=== PATIENT | female | born 2000 | race Caucasian/White ===

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

== ENCOUNTER 2021-01-30 08:30 | Outpatient (RCR) | payer OTHER, SELFPAY ==
[2021-01-30 00:40] VITALS: BP 114/67; PULSE 84; BMI 20.7
--- NOTE | 2021-01-30 09:00 | BH.SGPN.GN ---
Behaviors/Verbalizations/Mental Status: []Eye contact is good. Motor activity is appropriate. Appearance is casual. Speech is Appropriate. Mood is anxious and hopeful. Affect is congruent. Thoughts are linear and logical. No evidence of psychosis. Reviewed daily check in sheet and no reports of suicidal ideations or intent. Client Response/Progress/Benefit: []Pt responded well to session AEB pt listening attentively to other and sharing thoughts with group. Pt indicates on daily symptom tracker significant increase in anxiety from a 1/5 to a 4/5. This increase could be attributed to pt sharing stressor of her you friend not responding well to her boundary that she doesn't want to date him. Pt stated after she set the boundary with this friend she was told by other friends that he was breaking glass, drinking alcohol and talking about hurting himself. Pt reported she had a difficult time not feeling guilty for telling him she doesn't like him more than friends. Pt seemed to benefit from support and feedback from peers. Pt able to recognize it is not her responsibility to make her friend feel better. Pt identified treatment progress since starting IOP to include: no self-harm, setting boundaries, and improved positive attitude. Pt is to discharge from IOP today. Narrative Note: []
--- NOTE | 2021-01-30 10:10 | BH.SGPN.GN ---
Behaviors/Verbalizations/Mental Status: [] Eye contact is good. Motor activity is appropriate. Appearance is casual. Speech is Appropriate. Mood is anxious. Affect is congruent. Thoughts are linear and logical. No evidence of psychosis. Client Response/Progress/Benefit: [] Pt was an active participant in group discussion and activity. Attentive during psychoeducation on coping skills. Pt along with peers worked together to identify unhealthy coping skills such as; avoidance, sleep, substances, isolation, shopping, self-sabotage, not taking prescribed medications, and self-harm. Pt along with peers were able to identify why people use unhealthy coping skills such as; easy, comfortable, work in the short-term, perceive them as quick fix, and its harder to use healthy coping skills. Pt was able to make connection between the activity (tower building) and the importance of having a strong base/foundation of both internal and external coping skills. Benefited from increased understanding of unhealthy coping skills and the need for developing healthy interna and external coping skills. Pt will be discharged from [facility] today as she no longer meets this level of care. Narrative Note: []
--- NOTE | 2021-01-30 12:24 | BH.MDN_ITS ---
Multi-Disciplinary Note - Note 30-min Individual Time Started:: 11:20 Date: 01/30/21 Purpose of session/treatment goals addressed:: Purpose of session was to review pt's treatment progress, identify strategies to maintain progress and solidify aftercare plan. Eye Contact:: Good Motor Activity:: Appropriate, Restless Appearance:: Casual Speech:: Appropriate Mood:: Euthymic, Anxious Affect:: Congruent Thoughts:: Linear, Logical, No evidence of hallucinations/delusions noted Staff Interventions:: discharge planning, strengths perspective Client Response:: Pt reported she is feeling anxious about the upcoming family trip to see her brother graduate from [employer]. pt stated she is concerned how she is going to manage keeping her mom and dad happy since they don't get along. Pt agreed with therapist she does struggle with feeling the need to keep her parents happy. Recognizes she is not responsible for their emotions and has been working on letting herself make choices for her. Pt reported treatment progress she has noticed includes: no self-harm since starting IOP, decrease in depression and anxiety, more stable, decreased fatigue, improved daily functioning, improved boundaries, and starting a new job this week. Pt identified strategies to help her stay successful include: reaching out to healthy supports, staying in therapy, taking medications consistently, opposite action, painting, journaling, maintain self-care, writing down positive affirmations, and grounding. Pt feels ready to discharge from [facility], recognizing she has made significant progress. Risks/Concerns:: Denies suicidal/homicidal ideation, plan or intention to date. Progress Toward Goals/Plan:: Progress noted with pt reporting improved mood, decrease in depression, decrease in anxiety, and improved daily functioning. Plan is for pt discharge from [facility] today. Pt is to follow up with eating disorder therapist at [facility], trauma therapist through [facility], psychiatrist at counseling center and [facility] aftercare program. Time Stopped:: 11:50
--- NOTE | 2021-01-30 15:35 | BH.DS ---
Discharge Summary - Demographics Date of Admission:: 12/12/20 Discharge Date: 01/30/21 Presenting Problems at Admission:: Pt referred to the [facility] behavioral health IOP program after a recent psychiatric admission at [facility] from November 28 to December 03, 2020. She was diagnosed with bipolar disorder during that admission and was admitted there for mood instability and passive suicidal ideation. Her mood at intake was depressed and apathetic. Endorsed anhedonia, low energy, poor concentration, worthlessness and passive thoughts of . Denied active suicidal thoughts, plan or intention. She also denied homicidal ideation, hallucinations or delusions. At admission pt reported she was a worrier by nature but has panic attacks less than once a week now. Identified stressors as brother being away at boot camp and attempting to rebuild relationship with her mother. Discharge Diagnoses:: 1. Bipolar, NOS F31.9. 2. Generalized anxiety disorder. 3. Cluster B traits. 4. History of noncompliance with meds. 5. Primary support and school issues Reason for Discharge:: 1. Bipolar, NOS F31.9. 2. Generalized anxiety disorder. 3. Cluster B traits. 4. History of noncompliance with meds. 5. Primary support and school issues - Treatment Progress During Treatment & Response: Per pt's DSM 5 cross cutting measure at discharge pt's depression decreased by 75%, anxiety scores stayed the same scoring a 2/8, with 8 being severe, and a 62.5% overall reduction in mental health symptoms. Pt responded well to treatment AEB consistent attendance, engagement in both group and individual sessions and application of skills outside treatment environment. Issues Still to be Addressed:: Pt could benefit from continued reinforcement of healthy coping skills, continued work with outpatient therapists addressing eating disorder and trauma. Pt could also benefit from working through the belief she is responsible for her parents feelings, especially with her mother. Pt often feels torn on what boundaries to set with her mother out of fear of losing that relationship. Continued work on boundary setting, self-esteem, and assertiveness. Discharge Recommendations/Instructions:: 1. Melanie at [facility] for eating disorder- 01/31. 2. Breann at [facility] for trauma counseling- 02/01. 3. [facility]. 4. [facility] Aftercare Program - 02/14. 5. Encouraged pt to contact [facility] as recommended by pt's outpatient eating disorder therapist. Discharge Handout: Complete Discharge Handout with client on aftercare options and continuity of care.
== END 2021-01-30 14:46 | disposition home or self-care (01) ==
LOC: BHIOP 08:30
PROVIDERS: PCP Family Medicine; Referring Provider Psychiatry & Neurology Psychiatry; Visit Provider Psychiatry & Neurology Psychiatry
DX: F31.9 Bipolar disorder, unspecified (principal); F41.1 Generalized anxiety disorder; Z91.14 Patient's other noncompliance with medication regimen
CPT/HCPCS: S9480; 90832; 90853

== ENCOUNTER 2021-02-21 09:00 | Outpatient (RCR) | payer OTHER, SELFPAY ==
--- NOTE | 2021-02-21 14:00 | BH.SGPN.GN ---
Behaviors/Verbalizations/Mental Status: []Client alert and oriented, casually dressed. Eye contact fair. Motor activity slowed. Speech within normal limits. Affect flat, mood depressed. Thoughts linear, logical, no signs of hallucinations or delusions. Client Response/Progress/Benefit: []Pt responded well to session AEB pt providing input during discussion and listening attentively to peers. Pt reported feeling down today and was tearful. Pt shared she had started a job, but is already considering quitting because it is too triggering to pt?s eating disorder. Pt stated her mother was not supportive and made hurtful comments. Pt received emotional support and encouragement from the group. Pt engaged in discussion about self-love. Connected with others that although self-care is challenging, it is vital for mental health wellness. Group discussed barriers they have faced that prevented self-love. Pt reviewed the 30 ways to improve self-love and selected two strategies to practice. Pt seemed to benefit from reviewing treatment progress and stressors as well as learning about how to increase self-love. Pt will continue IOP aftercare to prevent decompensation and gain healthy support needed to promote mental health. Narrative Note: []
--- NOTE | 2021-02-21 14:59 | BH.MTP ---
Master Treatment Plan - Patient Information Program Physician:: Dr. Tiera Chavez Primary Therapist:: Jocy Harding [facility] - Psychiatric Diagnoses Psychiatric Diagnoses:: F33.2 Major depressive disorder, recurrent, severe without psychosis; generalized anxiety disorder; eating disorder, NOS; probable borderline personality disorder Diagnosis Code(s):: F 33.2 - Estimated LOS Estimated LOS (in weeks):: 12 Problem/Goal #1 - Problem/Goal #1 Stated Goal:: client will maintain or see a reduction in symptoms AEB client score on the DSM 5 cross-cutting measure and improve client's daily functioning. - Objectives Objective #1 Stated Objective: Client will continue to consistently apply healthy coping skills to maintain progress made in IOP tx. Interventions: Through group therapy, client will review warning signs and triggers as well as healthy coping skills learned in IOP tx to successfully maintain gains while transitioning into outpatient therapy Discharge Criteria: Client will have accomplished this goal when client's score on the DSM-5 cross-cutting measure has either maintained or reduced over a 12 week period. Target Date: 05/16/21 Review Date: 03/21/21 Status: open Objective #2 Stated Objective: Client will learn and utilize 2-3 maintenance strategies to prevent decompensation. Interventions: Through group therapy, client will be provided with education on healthy maintenance behaviors, relapse prevention techniques, and healthy coping strategies. Discharge Criteria: Client will have accomplished this goal when can report using at least 2 maintenance skills to prevent decompensation. Target Date: 05/16/21 Review Date: 03/21/21 Status: open
--- NOTE | 2021-02-28 14:00 | BH.SGPN.GN ---
Behaviors/Verbalizations/Mental Status: []Client alert and oriented, casually dressed and groomed. Eye contact good. Motor activity appropriate. Speech within normal limits. Affect congruent, mood euthymic. Thoughts linear, logical, no signs of hallucinations or delusions. Client Response/Progress/Benefit: []Client responded well to session, client?s emotion today is ?calm? as client reports things are ?going well? overall. Client reports her outpatient therapists told her she has been making progress with treatment which helped to boost her confidence and client identifies as a positive. Additional positive noted as maintaining boundaries with a friend who had become toxic despite that person reaching out. Client identified use of reaching out to supports, thought challenging, and self-care. Receptive of discussion on self-talk and its influence in maintaining long-term mental health stability. Contributed to strategies for improving effective creation and application of believable personal affirmations. Client created several affirmations and shared one with the group. Client shared plans to display affirmation of ?I have worth and value as an individual.? to remind her of her worth. Client shared this will help combat negative self-talk. Client to continue aftercare group to promote gains and further increase application of healthy coping skills. Narrative Note: []
== END 2021-02-28 23:59 ==
LOC: BHOG 09:00
PROVIDERS: PCP Family Medicine; Referring Provider Psychiatry & Neurology Psychiatry; Visit Provider Psychiatry & Neurology Psychiatry
DX: F33.2 Major depressive disorder, recurrent severe without psychotic features (principal); F41.1 Generalized anxiety disorder; F50.9 Eating disorder, unspecified
CPT/HCPCS: 90853

== ENCOUNTER 2021-03-28 09:00 | Outpatient (RCR) | payer OTHER, SELFPAY ==
[2021-03-01 00:07] VITALS: BMI 20.7
--- NOTE | 2021-03-28 12:22 | BH.MTP_ITS ---
Treatment Plan Review Date of Admission:: 02/21/21 Date of Treatment Plan Review:: 03/21/21 Admitting Diagnoses:: F33.2 Major depressive disorder, recurrent, severe without psychosis; generalized anxiety disorder; eating disorder, NOS; probable borderline personality disorder Current Diagnoses:: F33.2 Major depressive disorder, recurrent, severe without psychosis; generalized anxiety disorder; eating disorder, NOS; probable borderline personality disorder Patient's Response to Treatment:: Pt responding mostly well to aftercare program AEB pt's consistent attendance, contributions during group discussions and self- report that she is applying skills learned outside treatment environment. Pt continued to attend the program despite 3 of the 4 scheduled dates being canceled due to limited attendance numbers. Status of Current Problems and Symptoms: Client continues to experience symptoms of depression and anxiety per self-report. Client's anxiety and depression have stayed the same since her IOP discharge due to several ongoing stressors including separation from her brother in the , difficulties maintaining boundaries with her mother, as well as struggling to commit to attending residential eating disorder treatment. Client continues to struggle with emotion regulation and often deals with externalizing which significantly limits overall ability to maintain consistent gains. Problem #1 Problem Name:: Pt will maintain or see a reduction in mental health symptoms Status of Goals:: obj 1 ? not complete, ongoing work encouraged. Per pt'sself- report her anxiety and depression have maintained the same since discharge from [facility]. Client has struggled with consistent application of internal coping skills, impacting overall mood stability. Additional difficulties in developing and maintaining healthy boundaries have impeded self-care and pt?s ability to advocate for her own mental health needs. Team Recommendations:: Pt continue IOP aftercare group in addition to attending regular outpatient counseling in order to decrease depressive and anxious symptoms as well as promote further gains. Encouraged to attend inpatient eating disorder specific treatment.
--- NOTE | 2021-03-28 14:00 | BH.SGPN.GN ---
Behaviors/Verbalizations/Mental Status: []Client alert and oriented, casually dressed and groomed. Eye contact good. Motor activity appropriate. Speech within normal limits. Affect congruent, mood euthymic and anxious. Thoughts linear, logical, no signs of hallucinations or delusions. Client Response/Progress/Benefit: []Client responded well to session, sharing and listening attentively to others throughout. Reported her emotion as ?nervous. Client identified mental health positives as getting a new job, getting a new car, relationship improving with mom and being able to stay at her dad's house alone the last few days. Client identified staying on medications, journaling, therapy, and opposite action have helped her mood. Client stated worried about going to residential eating disorder program in a couple of weeks. Client participated in group discussion regarding skills and routines that make up mental health maintenance, and completed own maintenance plan. Client completed maintenance plan in session identifying triggers, warning signs, healthy coping skills, and self-care activities. Appeared to benefit from identifying personal triggers and warning signs as well as skills to aid client in maintaining mental health. Client to continue aftercare group to promote gains, and prevent regression.
== END 2021-03-31 23:59 ==
LOC: BHOG 09:00
PROVIDERS: PCP Family Medicine; Referring Provider Psychiatry & Neurology Psychiatry; Visit Provider Psychiatry & Neurology Psychiatry
DX: F33.2 Major depressive disorder, recurrent severe without psychotic features (principal); F41.1 Generalized anxiety disorder; F50.9 Eating disorder, unspecified
CPT/HCPCS: 90853

== ENCOUNTER 2021-04-04 09:00 | Outpatient (RCR) | payer OTHER, SELFPAY ==
[2021-04-01 00:07] VITALS: BMI 20.7
--- NOTE | 2021-04-04 14:00 | BH.SGPN.GN ---
Behaviors/Verbalizations/Mental Status: []Client alert and oriented, casually dressed and groomed. Eye contact good. Motor activity appropriate. Speech within normal limits. Affect flat-tearful, mood depressed. Thoughts linear, logical, no signs of hallucinations or delusions. Client Response/Progress/Benefit: []Client responded well to session, client reports her mood today is ?depressed? as client continues to struggle with her mental health and eating disorder. Client shared she plans to be admitted to [facility] to treat client?s eating disorder, but client is struggling to accept this. Client stated she has been crying a lot lately and she worries [facility] will not help her. Receptive to feedback from peers and therapist. Client engaged well during the discussion of the components of self-compassion. Client connected with the benefits of self-compassion and participated in the activity of reframing a recent setback using self-compassion. Client used her upcoming admission to [facility] and challenged feeling ?like I can?t function? with ?I deserve to be happy even if that means going inpatient.? Client appeared to benefit from practicing self-compassion and connecting with peers. Will continue to monitor client?s mood and symptoms. Client does not know when she will be admitted to [facility]. Narrative Note: []
--- NOTE | 2021-04-11 14:00 | BH.SGPN.GN ---
Behaviors/Verbalizations/Mental Status: []Client alert and oriented, casual appearance. Eye contact fair. Motor activity appropriate. Speech within normal limits. Affect constricted, mood anxious. Thoughts linear, logical, no signs of hallucinations or delusions. Client Response/Progress/Benefit: []Pt responded well to session AEB pt openly sharing thoughts and feelings and completing worksheet. Pt stated she has quit her one job that she found the environment unorganized and stressful. Pt stated mental health positive as going to a wedding this weekend that she is excited about. Pt reported she is stressed that her residential treatment for eating disorder starts Thanks. Pt stated she is feeling sad that she will miss out on spending time with her brother whom will be visiting from the . Pt expressed anxiety about going to residential, but able to recognize it is what she needs to be healthy. Pt responded well to group discussion and review about self-care. Pt stated she will work on following self-care activities: reach out to supports, light a candle, affirmations, clean room, go to therapy, shower, spend time with family and go outside. Pt seemed to benefit from support from peers and identifying self-care plan. Pt to continue aftercare to prevent decompensation and continue use of healthy coping.
--- NOTE | 2021-04-18 12:10 | BH.DS_ITS ---
Discharge Summary - Demographics Date of Admission:: 02/21/21 Discharge Date: 04/18/21 Presenting Problems at Admission:: Client discharged from IOP tx and transitioned to [facility] aftercare to maintain gains client made in IOP and to reinforce healthy coping skills. At admission to [facility] aftercare, client reported experiencing some ongoing symptoms of anxiety, guilt, and depression. Continues to struggle with boundaries and holding herself responsible for her parents feelings, especially with her mother. Pt often feels torn on what boundaries to set with her mother out of fear of losing that relationship. Continues to struggle with low self-esteem which is a trigger for pt?s eating disorder symptoms. Client also continued to experience negative thinking and self- criticism at times. Despite these stressors, client reported ability to cope with her mental health and was activity using healthy skills. Discharge Diagnoses:: F33.2 Major depressive disorder, recurrent, severe without psychosis; generalized anxiety disorder; eating disorder, NOS; probable borderline personality disorder Reason for Discharge:: Client has accomplished most of her her tx goals AEB her ability to maintain mood stability for a longer period of time than in prior admissions. Client has been accepted into residential eating disorder treatment and will be discharging today to begin the program at [facility] on 04/22/21. - Treatment Progress During Treatment & Response: Client responded well and made progress in [facility] aftercare as evidenced by client's participation in group discussions and self-report of consistently applying coping skills, better managing moments of increased stress, and more consistently surrounding herself with healthy supports and implementing healthy coping skills. Client's overall DSM-5 scores were not obtained at time of discharge. However, client was reporting an improved mood and feeling she has seen significant progress since first seeking treatment over a year ago. Pt reports improved ability to more consistently challenge negative thoughts and focus on positive thinking patterns, improved use of healthy coping skills, better boundaries within interpersonal relationships, better and more self-care. Issues Still to be Addressed:: Client reports ongoing anxiety about addressing her physical health related issues, specifically that of her eating disorder; however, was unwilling to consider doing so a year ago. Client additionally reports needing to continue to work on trauma therapy, maintaining healthy boundaries, and implementing regular self-care and healthy coping skills in times of increased stress as she still struggles with isolation at times. Discharge Recommendations/Instructions:: Client will be admitted to [facility] for eating disorder residential treatment and is recommended to follow recommendations as presented by clinical staff in this program. Discharge Handout: Complete Discharge Handout with client on aftercare options and continuity of care.
--- NOTE | 2021-04-18 14:00 | BH.SGPN.GN ---
Behaviors/Verbalizations/Mental Status: []Client alert and oriented, casually dressed and groomed. Eye contact fair to good. Motor activity appropriate. Speech within normal limits. Affect congruent, mood anxious. Thoughts linear, logical, no signs of hallucinations or delusions. Client Response/Progress/Benefit: []Pt responded well to session, provided input, and listened attentively to peers. Reported feeling ?nervous? today, explaining that she has been accepted into an inpatient eating disorder treatment program and is scheduled to begin on Thursday. Reflected that this is ultimately the healthiest option for her and that her willingness to go is progress itself. Shared that she has been using opposite action to keep taking these steps in her life and is proud of herself for continuing to do so. Expressed being worried about not knowing what to expect. Client engaged in discussion on self-advocacy. Worked with group to identify the benefits of self-advocacy, as well as common barriers. Reviewed the personal bill of rights and shared she does well to advocate for the right to ?have the right to change and grow??. Discussed struggling with personal right of ?I have the right to be happy?. Noted plans to take steps in better advocating for this right by allowing herself to make decisions that she feels are going to be the best choice for her rather than worrying about others responses. Client seemed to benefit from reviewing treatment progress and skill application, as well as learning about how to increase self-advocacy. Client to discharge on this date and begin residential eating disorder tx. Narrative Note: []
== END 2021-04-19 09:01 | disposition home or self-care (01) ==
LOC: BHOG 09:00
PROVIDERS: PCP Family Medicine; Referring Provider Psychiatry & Neurology Psychiatry; Visit Provider Psychiatry & Neurology Psychiatry
DX: F33.2 Major depressive disorder, recurrent severe without psychotic features (principal); F41.1 Generalized anxiety disorder; F50.9 Eating disorder, unspecified
CPT/HCPCS: 90853

== ENCOUNTER → 2021-10-23 | Outpatient (CLI) | payer BC, SELFPAY ==
[2021-10-23 13:04] LABS: ALB/GLOB Ratio 1.4 RATIO (0.9-2.4); AST(SGOT) 12 U/L (15-37); Alanine Aminotransfer ALT/SGPT 13 U/L (13-56); Albumin, Serum 4.1 g/dL (3.2-5.0); Alkaline Phosphatase 72 U/L (45-117); Anion Gap 5 (5-15); BUN 8 mg/dL (7-18); BUN/Creat Ratio 11.4 RATIO (10-20); Calcium,Total 9.3 mg/dL (8.5-10.1); Chloride 105 mmol/L (98-107); EST Glomerular Filtration Rate 113 mL/min (>60); Est Glom Filt Rate - Afr Amer 137 mL/min (>60); Glucose 85 mg/dL (74-106); Potassium 4.3 mmol/L (3.5-5.1); Protein, Total 7.1 g/dL (6.4-8.2); Sodium Level 137 mmol/L (136-145)
== END | disposition home or self-care (01) ==
LOC: MFPLAB 11:00
PROVIDERS: PCP Family Medicine; Referring Provider Family Medicine; Visit Provider Family Medicine
DX: F50.01 Anorexia nervosa, restricting type (principal)
CPT/HCPCS: 36415; 80053

== ENCOUNTER → 2023-01-17 | Outpatient (CLI) | payer BC, SELFPAY ==
[2023-01-17 09:07] LABS: Hematocrit 38.2 % (37-47); Hemoglobin 12.3 g/dL (12.0-15.0); Mean Corp Hgb Conc 32.2 g/dL (32-36); Mean Corpuscular Hgb 27.9 pg (27.0-32.0); Mean Corpuscular Volume 86.6 fL (81-99); Mean Platelet Vol. 9.9 fl (6.2-12.0); Platelet Count 255 K/mm3 (150-450); RBC Distribution Width CV 15.6 % (11.6-14.6); RBC Distribution Width SD 49.4 fl (35.1-43.9); Red Blood Count 4.41 M/mm3 (4.2-5.4); White Blood Count 5.5 K/mm3 (4.4-11.0)
[2023-01-17 10:20] LABS: ALB/GLOB Ratio 1.1 RATIO (0.9-2.4); AST(SGOT) 15 U/L (15-37); Alanine Aminotransfer ALT/SGPT 18 U/L (13-56); Albumin, Serum 3.8 g/dL (3.2-5.0); Alkaline Phosphatase 73 U/L (45-117); Anion Gap 3 (5-15); BUN 9 mg/dL (7-18); BUN/Creat Ratio 10.6 RATIO (10-20); Calcium,Total 8.9 mg/dL (8.5-10.1); Chloride 108 mmol/L (98-107); Cholesterol 155 mg/dL (200); Creatinine, Serum 0.85 mg/dL (0.55-1.02); EST Glomerular Filtration Rate 90 mL/min (>60); Est Glom Filt Rate - Afr Amer 108 mL/min (>60); Ferritin 6 ng/mL (8-252); Globulin 3.6 g/dL (2.2-4.2); Glucose 91 mg/dL (74-106); High Density Lipoprotein 41 mg/dL; Iron 115 ug/dL (50-170); Iron Binding Capacity,Total 353 ug/dL (250-450); Potassium 3.8 mmol/L (3.5-5.1); Protein, Total 7.4 g/dL (6.4-8.2); Sodium Level 139 mmol/L (136-145); Thyroid Stim Hormone (TSH) 1.49 uIU/mL (0.358-3.74); Triglycerides 119 mg/dL; Very Low Density Lipoprotein 24 mg/dL (5-40)
[2023-01-18 09:20] LABS: Hemoglobin A1c 4.8 % (3.8-5.6)
[2023-01-19 09:32] LABS: Vitamin B12 342 pg/mL (211-911); Vitamin D,25 Hydroxy 29.9 ng/mL
== END | disposition home or self-care (01) ==
LOC: LAB 08:44
PROVIDERS: PCP Family Medicine
DX: R53.83 Other fatigue (principal); Z79.899 Other long term (current) drug therapy
CPT/HCPCS: 36415; 80053; 80061; 82306; 82607; 82728; 82746; 83036; 83540; 83550; 84443; 85027

== ENCOUNTER → 2023-02-24 | Outpatient (CLI) | payer BC, SELFPAY ==
[2023-02-24 15:54] LABS: Internal QC Validated? YES +Cl - CLEAR BKGD; Pregnancy, Serum, hCG Quali. NEGATIVE Negative
== END | disposition home or self-care (01) ==
PROVIDERS: PCP Family Medicine; Visit Provider Family Medicine
DX: N92.6 Irregular menstruation, unspecified (principal)
CPT/HCPCS: 36415; 84703

== ENCOUNTER → 2024-01-28 | Outpatient (CLI) | payer BC, SELFPAY ==
[2024-01-28 17:43] LABS: Absolute Lymphocyte Count 1.69 X10^3/uL (0.83-4.51); Absolute Neutrophil Count 4.2 X10^3/uL (2.0-7.7); Basophil# 0.03 X10^3/uL; Basophil% 0.5 % (0-1); Eosinophil# 0.08 X10^3/uL; Eosinophils% 1.2 % (0-5); Hematocrit 39.4 % (37-47); Hemoglobin 12.5 g/dL (12.0-15.0); Lymphocyte # 1.69 X10^3/ul (0.83-4.51); Lymphocyte % 25.9 % (19-41); Mean Corp Hgb Conc 31.7 g/dL (32-36); Mean Corpuscular Hgb 26.5 pg (27.0-32.0); Mean Corpuscular Volume 83.5 fL (81-99); Mean Platelet Vol. 10.1 fl (6.2-12.0); Monocyte% 7.7 % (0-10); NRBC Flagged by Analyzer 0 % (0-5); Neutrophil % 64.2 % (47-70); Platelet Count 294 K/mm3 (150-450); RBC Distribution Width CV 15.8 % (11.6-14.6); RBC Distribution Width SD 47.6 fl (35.1-43.9); Red Blood Count 4.72 M/mm3 (4.2-5.4); White Blood Count 6.5 K/mm3 (4.4-11.0)
[2024-01-28 18:09] LABS: Vitamin D,25 Hydroxy 23.9 ng/mL
[2024-01-28 18:21] LABS: AST(SGOT) 14 U/L (15-37); Alanine Aminotransfer ALT/SGPT 15 U/L (13-56); Albumin, Serum 3.9 g/dL (3.2-5.0); Alkaline Phosphatase 99 U/L (45-117); Creatinine, Serum 0.69 mg/dL (0.55-1.02); EST Glomerular Filtration Rate 113 mL/min (>60); Est Glom Filt Rate - Afr Amer 137 mL/min (>60); Globulin 3.7 g/dL (2.2-4.2); Glucose 83 mg/dL (74-106); Protein, Total 7.6 g/dL (6.4-8.2); Thyroid Stim Hormone (TSH) 0.736 uIU/mL (0.358-3.740)
== END | disposition home or self-care (01) ==
PROVIDERS: PCP Family Medicine; Referring Provider Specialist; Visit Provider Specialist
DX: T78.3XXD Angioneurotic edema, subsequent encounter (principal); E55.9 Vitamin D deficiency, unspecified; E07.9 Disorder of thyroid, unspecified
CPT/HCPCS: 36415; 80076; 82306; 82565; 82947; 83520; 84443; 85025

== ENCOUNTER → 2024-08-19 | Outpatient (CLI) | payer BC, SELFPAY ==
[2024-08-19 17:17] LABS: Amphetamine Urine NEGATIVE (<1000 ng/mL); Barbiturate Urine NEGATIVE (< 200 ng/mL); Benzodiazepine Urine NEGATIVE (< 200 ng/mL); Buprenorphine Urine NEGATIVE (< 200 ng/mL); Cocaine Urine NEGATIVE (< 300 ng/mL); Fentanyl, Urine NEGATIVE; Methadone Urine NEGATIVE (< 300 ng/mL); Opiates Urine NEGATIVE (< 300 ng/mL); Oxycodone, Urine NEGATIVE (< 100 ng/mL); PCP Urine NEGATIVE (< 25 ng/mL); THC Urine NEGATIVE (< 50 ng/mL)
== END | disposition home or self-care (01) ==
LOC: LABSPEC 14:43
PROVIDERS: PCP Family Medicine; Referring Provider Advanced Practice Midwife; Visit Provider Advanced Practice Midwife
DX: O09.90 Supervision of high risk pregnancy, unspecified, unspecified trimester (principal); O99.320 Drug use complicating pregnancy, unspecified trimester; F12.91 Cannabis use, unspecified, in remission; Z3A.00 Weeks of gestation of pregnancy not specified
CPT/HCPCS: 80307; 87086; 87088

== ENCOUNTER → 2024-08-31 | Outpatient (CLI) | payer BC, SELFPAY ==
--- NOTE | 2024-08-31 13:14 | US_ITS ---
PROCEDURE: TRANSVAGINAL W/PREG US 08/31/2024 REASON FOR EXAM: VIABILITY TECHNIQUE: Transvaginal. COMPARISON: None FINDINGS: Comments: LMP: June 30, 2024. Number of Gestational Sacs: 1 Gestational Sac Shape: Normal Number of Fetuses: 1 Heart Rate: 160 (average) Yolk Sac: Present and unremarkable. Placenta: Presently not well-visualized Amniotic Fluid Volume: Subjectively normal for gestational age. Uterine Abnormalities: Maternal uterus is unremarkable. Ovaries / Adnexa: Both maternal ovaries are visualized and unremarkable. DIMENSIONS: Parameter Measurement / EGA [place] Rump Length: 1.42 cm/7 weeks and 5 days. Yolk Sac: 3.3 mm/ ESTIMATED GESTATIONAL AGE: By Ultrasound: 7 weeks and 5 days By LMP: 8 weeks and 6 days ESTIMATED DATE OF DELIVERY: By Ultrasound: April 14, 2025 By LMP: April 06, 2025. US/Transvaginal w/Preg US IMPRESSION: Single live intrauterine gestation with a mean gestational age of 7 weeks and 5 days. Reading Location: [facility]
== END | disposition home or self-care (01) ==
PROVIDERS: PCP Family Medicine; Referring Provider Obstetrics & Gynecology; Visit Provider Obstetrics & Gynecology
DX: Z36.89 Encounter for other specified antenatal screening (principal)
CPT/HCPCS: 76817

== ENCOUNTER → 2024-09-19 | Outpatient (CLI) | payer BC, SELFPAY ==
[2024-09-19 16:29] LABS: Absolute Lymphocyte Count 1.38 X10^3/uL (0.83-4.51); Absolute Neutrophil Count 9.1 X10^3/uL (2.0-7.7); Basophil# 0.04 X10^3/uL; Basophil% 0.3 % (0-1); Eosinophil# 0.09 X10^3/uL; Eosinophils% 0.8 % (0-5); Hematocrit 38.6 % (37-47); Hemoglobin 13.3 g/dL (12.0-15.0); Lymphocyte # 1.38 X10^3/ul (0.83-4.51); Mean Corp Hgb Conc 34.5 g/dL (32-36); Mean Corpuscular Hgb 30.6 pg (27.0-32.0); Mean Corpuscular Volume 88.7 fL (81-99); Mean Platelet Vol. 10.6 fl (6.2-12.0); Monocyte# 0.86 X10^3/uL; Monocyte% 7.5 % (0-10); NRBC Flagged by Analyzer 0 % (0-5); Neutrophil # 9.07 X10^3/uL (2.7-7.7); Neutrophil % 78.9 % (47-70); Platelet Count 274 K/mm3 (150-450); RBC Distribution Width CV 13.6 % (11.6-14.6); RBC Distribution Width SD 44.1 fl (35.1-43.9); Red Blood Count 4.35 M/mm3 (4.2-5.4); White Blood Count 11.5 K/mm3 (4.4-11.0)
[2024-09-19 18:04] LABS: HIV Nonreactive (Nonreactive); Hepatitis B Surface Antigen Nonreactive (Nonreactive); Hepatitis C Antibody Nonreactive (Nonreactive); Rubella IgG REAC (Nonreactive); Syphilis Antibodies Nonreactive (Nonreactive)
== END | disposition home or self-care (01) ==
PROVIDERS: Advanced Practice Midwife; PCP Family Medicine; Referring Provider Obstetrics & Gynecology; Visit Provider Obstetrics & Gynecology
DX: Z34.01 Encounter for supervision of normal first pregnancy, first trimester (principal); Z34.81 Encounter for supervision of other normal pregnancy, first trimester
CPT/HCPCS: 36415; 85025; 86703; 86762; 86780; 86803; 86850; 86900; 86901; 87340

== ENCOUNTER 2024-10-05 11:42 | Outpatient (CLI) | payer BC, SELFPAY ==
[2024-10-05 11:58] VITALS: BP 109/56; PULSE 85; RESP 16; TEMP 36.6; O2SAT 100; BMI 29.0
[2024-10-05] MEDS: Ondansetron 4 MG/2 ML Vial IV (12:11)
[2024-10-05] MEDS: 0.9% NaCl Peripheral Flush Adult IV (12:11)
[2024-10-05] MEDS: Dextrose 5%-Lactated Ringers 1,000 ML 999 ML IV (12:16)
[2024-10-05 13:26] VITALS: BP 109/67; PULSE 89; RESP 16; TEMP 35.8; O2SAT 100
== END 2024-10-05 23:59 | disposition home or self-care (01) ==
LOC: MEDOUTP 11:45
PROVIDERS: PCP Family Medicine; Referring Provider Obstetrics & Gynecology; Visit Provider Obstetrics & Gynecology
DX: O99.280 Endocrine, nutritional and metabolic diseases complicating pregnancy, unspecified trimester (principal); O21.0 Mild hyperemesis gravidarum; E86.0 Dehydration; Z3A.00 Weeks of gestation of pregnancy not specified
CPT/HCPCS: 96374; 96361; A4216; J2405

== ENCOUNTER → 2024-10-13 | Outpatient (CLI) | payer BC, SELFPAY | END | disposition home or self-care (01) | LOC: LABSPEC 16:22 | PROVIDERS: PCP Family Medicine; Referring Provider Advanced Practice Midwife; Visit Provider Advanced Practice Midwife | DX: O09.90 Supervision of high risk pregnancy, unspecified, unspecified trimester (principal); Z3A.13 13 weeks gestation of pregnancy | CPT/HCPCS: 87491; 87591 ==

== ENCOUNTER 2024-10-19 09:32 | Outpatient (CLI) | payer BC, SELFPAY ==
[2024-10-19] MEDS: Ondansetron 4 MG/2 ML Vial IV (09:46)
[2024-10-19] MEDS: Dextrose 5%-Lactated Ringers 1,000 ML 1000 ML IV (09:46)
[2024-10-19 09:50] VITALS: BP 117/68; PULSE 89; RESP 16; TEMP 35.6; O2SAT 97; BMI 29.7
[2024-10-19 10:55] VITALS: BP 132/74; PULSE 82; RESP 16; TEMP 35.7; O2SAT 100
== END 2024-10-19 23:59 | disposition home or self-care (01) ==
LOC: MEDOUTP 09:33
PROVIDERS: PCP Family Medicine; Referring Provider Obstetrics & Gynecology; Visit Provider Obstetrics & Gynecology
DX: E86.0 Dehydration (principal)
CPT/HCPCS: 96374; 96361; J2405

== ENCOUNTER → 2024-11-04 | Outpatient (CLI) | payer BC, SELFPAY ==
[2024-11-07 20:08] LABS: Chlamydia By Nucleic Acid AMP Negative (Negative); Gonococcus By Nucleic Acid AMP Negative (Negative)
== END | disposition home or self-care (01) ==
LOC: LAB 08:51
PROVIDERS: PCP Family Medicine; Referring Provider Registered Nurse; Visit Provider Registered Nurse
DX: O09.90 Supervision of high risk pregnancy, unspecified, unspecified trimester (principal); O26.899 Other specified pregnancy related conditions, unspecified trimester; Z67.91 Unspecified blood type, Rh negative; Z3A.00 Weeks of gestation of pregnancy not specified
CPT/HCPCS: 36415; 86850; 86900; 86901; 87491; 87591

== ENCOUNTER 2024-12-06 16:17 | Emergency (ER) | payer BC, SELFPAY ==
[2024-12-06 16:18] VITALS: BP 129/81; PULSE 85; RESP 18; TEMP 36.6; O2SAT 99; BMI 32.9
--- NOTE | 2024-12-06 16:41 | EX.ED.GENINJ ---
HPI History of Present Illness Chief Complaint: Nausea/Vomiting Narrative Narrative: Chief complaint and HPI: Nausea and vomiting. 24-year-old female who is G1, P0 at 21 weeks presents for evaluation of nausea and vomiting. Patient follows with [facility]. Patient states yesterday she developed nausea and vomiting. States she has been taking p.o. Zofran, prochlorperazine, and promethazine with some improvement. States her nausea and vomiting continued today in which she feels dehydrated. States she called her HEALTH AND SAFETY DIRECTOR who told her to present to the emergency department for fluids. She denies any fever, chills, shortness of breath, chest pain, abdominal pain, diarrhea, constipation, dysuria. States that she is not having any vaginal cramping or bleeding. She has been feeling the baby move. Review of systems: See HPI Medications: As listed on the chart Allergies: As listed on the chart PFSH: Per chart Vital signs: As listed on the chart. Reviewed. Physical exam: Gen: A&O x3, NAD Head: Normocephalic, atraumatic Eyes: No sclera icterus, conjunctiva clear ENT: Mildly dry mucous membranes Neck: Trachea midline, No JVD CV: RRR, no murmurs, no peripheral edema Resp: Lungs CTA BL, no w/r/c GI: Gravid uterus, abd soft, non-distended, non-tender, no r/r/g Musc: Full ROM, no deformity Skin: Warm, dry Neuro: Alert, oriented, grossly intact, sensation intact Psych: Cooperative, appropriate mood and [facility] History Bipolar disorder Eating disorder Generalized anxiety disorder Hx of thoracic outlet syndrome Home Medications ?Medication ?Instructions ?Recorded ?Last Taken ?Type docosahexaenoic acid 200 mg 200 mg PO DAILY 08/12/24 Unknown History capsule ( DHA) fluoxetine 40 mg capsule (Prozac) 60 mg PO QDAY 08/12/24 Unknown History levocetirizine 5 mg tablet 5 mg PO QDAY 08/12/24 Unknown History lurasidone 20 mg tablet (Latuda) 20 mg PO QDAY 08/12/24 Unknown History ondansetron 4 mg disintegrating 4 mg PO Q8H PRN nausea and 08/22/24 Unknown Rx tablet vomiting #30 tabs promethazine 12.5 mg tablet 12.5 mg PO Q6H PRN nausea and 08/30/24 Unknown Rx vomiting 30 days #120 tabs prochlorperazine maleate 10 mg 10 mg PO Q8H PRN nausea and 10/05/24 Unknown Rx tablet (Compazine) vomiting #90 tabs cephalexin 500 mg capsule 500 mg PO Q6H 7 days #28 caps 12/06/24 Unknown Rx Allergy/AdvReac Type Severity Reaction Status Date / Time No Known Allergies Allergy Verified 12/06/24 16:20 Family History Grandfather Diabetes CVA (cerebral vascular accident) Grandmother Diabetes Mother Depression Brother Tachycardia Grandmother Thyroid disorder Anxiety Surgical History History of wisdom tooth extraction History of shoulder surgery Social History adopted: No household members: spouse number of children: 0 current occupational status: employed current occupation: current occupational exposures/hazards: No pets and animals: Yes pets and animals: dog(s) history of recent travel: Yes (July 2024 - ) out of state: Yes out of country: No sexually active: Yes Smoking Status: Former smoker quit date: 11/30/23 second hand exposure: No quit status: quit date established alcohol intake: current alcohol intake frequency: holidays/special occasions only details: Not while substance use type: former substance user Date of last use: 2021 well-balanced diet: daily or most days caffeine: Yes Type: coffee eating out: 1-3 times/week during the past year weight has: remained stable what type of physical activity do you participate in: none puma/quaker: [employer] seatbelt use: always do you feel safe at home: Yes additional social history: : [employer]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 EXAM Physical Exam Const Vital Signs: 12/06/24 16:18 12/06/24 18:49 Temperature 98 F Temperature Source Oral Pulse Rate 85 86 Respiratory Rate 18 16 Blood Pressure 129/81 H Blood Pressure Mean 97 Pulse Ox 99 98 Oxygen Delivery Method Room Air Room Air MDM MDM MDM Narrative Medical decision making narrative: 24-year-old female who is G1, P0 at 21 weeks presents for evaluation of nausea and vomiting. Patient follows with [facility]. Patient states yesterday she developed nausea and vomiting that has continued. Taking antiemetics at home. Called HEALTH AND SAFETY DIRECTOR who told her to present to the ED for fluids. Differential diagnosis includes but is not limited to nausea vomiting secondary to , viral illness, electrolyte abnormality, GINO, UTI. NS bolus and Zofran ordered. Basic labs ordered with UA. Patient not having any abdominal pain therefore I do not think any imaging is needed. Will obtain heart tones. heart tones 140. CBC without leukocytosis. Patient has anemia of 11.9, likely secondary to . Platelets unremarkable. CMP unremarkable without GINO or significant electrolyte abnormality. UA positive for UTI however this is not a clean-catch sample given 10-25 WBC however given patient is we will send for culture and treat with Keflex. Patient was able to tolerate Gatorade in our emergency department. She was given her first dose of Keflex. Follow-up with [facility] AND [facility]OR. Continue home antibiotic. Return back to the ED if symptoms change or worsen. She confirmed understand the plan. Impression: 1. Nausea and vomiting in second trimester 2. UTI Lab Data Labs: Laboratory Results - last 24 hr 12/06/24 12/06/24 16:40 18:35 WBC 10.8 RBC 3.68 L Hgb 11.9 L Hct 34.3 L MCV 93.2 MCH 32.3 H MCHC 34.7 RDW Std Deviation 44.2 H RDW Coeff of Rosy 13.1 Plt Count 246 MPV 10.6 Immature Gran % (Auto) 0.600 Neut % (Auto) 79.2 H Lymph % (Auto) 12.4 L [place] % (Auto) 6.9 Eos % (Auto) 0.7 Baso % (Auto) 0.2 Absolute Neuts (auto) 8.6 H Absolute Lymphs (auto) 1.34 Nucleated RBC % 0 Sodium 137 Potassium 3.6 Chloride 104 Carbon Dioxide 23.0 Anion Gap 10 BUN 4 Creatinine 0.52 L Estim Creat Clear Calc 199.56 Est GFR (MDRD) Non-Af 134 BUN/Creatinine Ratio 7.7 L Glucose 94 Calcium 8.9 Total Bilirubin < 0.15 AST 17 ALT 10 Alkaline Phosphatase 70 Total Protein 6.5 Albumin 3.4 L Globulin 3.0 Albumin/Globulin Ratio 1.1 Urine Color Straw Urine Clarity Cloudy Urine pH 7.0 Ur Specific [place] 1.010 Urine Protein 15 H Urine Glucose (UA) Normal Urine Ketones Negative Urine Occult Blood 10 H Urine Nitrite Negative Urine Bilirubin Negative Urine Urobilinogen Normal Ur Leukocyte Esterase 500 H Urine RBC 0-5 SEEN Urine WBC 10-25 SEEN Ur Squamous Epith Cells 10-25 SEEN Amorphous Sediment 1+ Urine Bacteria 1+ Urine Mucus 0 SEEN Discharge Plan Triage Chief Complaint: Nausea/Vomiting ED Provider: Markie Quiros Dx/Rx/DC Orders Clinical Impression: Instructions: ED Diet Vomiting Diarrhea Prescriptions: New cephalexin 500 mg capsule 500 mg PO Q6H 7 Days Qty: 28 0RF No Action DHA 200 mg capsule 200 mg PO DAILY fluoxetine [Prozac] 40 mg capsule 60 mg PO QDAY levocetirizine 5 mg tablet 5 mg PO QDAY lurasidone [Latuda] 20 mg tablet 20 mg PO QDAY Rx Instructions: must administer with food (at least 350 calories) ondansetron 4 mg tablet,disintegrating 4 mg PO Q8H PRN (Reason: nausea and vomiting) Qty: 30 4RF promethazine 12.5 mg tablet 12.5 mg PO Q6H PRN (Reason: nausea and vomiting) 30 Days Qty: 120 3RF prochlorperazine maleate [Compazine] 10 mg tablet 10 mg PO Q8H PRN (Reason: nausea and vomiting) Qty: 90 3RF Primary Care Provider: Taiwo Conde Referrals: Follow-up with your HEALTH AND S[facility]ETY DIRECTOR [Other] - 3-5 Days Taiwo Conde DO [Primary Care Provider] - 3-5 Days Activity Restrictions/Additional Instructions: Continue your antinausea medicine. You had bacteria here in your urine, continue to take all of your antibiotics so you do not develop a urinary tract infection. Return back to the ED if symptoms change or worsen. Print Language: Maldivian Disposition Disposition: Home, Self Care
[2024-12-06] MEDS: 0.9% Normal Saline (1000mL) 1,000 ML 1000 ML IV (16:45)
[2024-12-06 17:05] LABS: Hematocrit 34.3 % (37-47); Hemoglobin 11.9 g/dL (12.0-15.0); Immature Granulocytes Count 0.060 X10^3/uL (0.0-0.0); Mean Corp Hgb Conc 34.7 g/dL (32-36); Mean Corpuscular Volume 93.2 fL (81-99); Mean Platelet Vol. 10.6 fl (6.2-12.0); NRBC Flagged by Analyzer 0 % (0-5); Platelet Count 246 K/mm3 (150-450); RBC Distribution Width CV 13.1 % (11.6-14.6); RBC Distribution Width SD 44.2 fl (35.1-43.9); Red Blood Count 3.68 M/mm3 (4.2-5.4); White Blood Count 10.8 K/mm3 (4.4-11.0)
[2024-12-06 17:37] LABS: AST(SGOT) 17 U/L (<=31); Alanine Aminotransfer ALT/SGPT 10 U/L (<=34); Albumin, Serum 3.4 g/dL (3.5-5.0); Alkaline Phosphatase 70 U/L (35-104); Anion Gap 10 (5-15); BUN 4 mg/dL (4-19); BUN/Creat Ratio 7.7 RATIO (10-20); Calcium,Total 8.9 mg/dL (7.6-11.0); Carbon Dioxide 23.0 mmol/L (21.0-32.0); Chloride 104 mmol/L (98-108); Estimated Creatinine Clearance 199.56 ml/min (50-250); Globulin 3.0 g/dL (2.2-4.2); Glucose 94 mg/dL (70-99); Potassium 3.6 mmol/L (3.3-5.1)
[2024-12-06 18:45] LABS: Mucous, Urine 0 SEEN /hpf (<or=2+)
[2024-12-06 18:49] VITALS: PULSE 86; RESP 16; O2SAT 98
[2024-12-06 19:14] LABS: Color, Urine Straw (Yellow); Glucose, Dipstick Normal (Normal); Ketone-Dipstick Negative (Negative); Leukocyte Esterase-Dipstick 500 /ul (Negative); Nitrite-Dipstick Negative (Negative); Occult Blood-Urine 10 /ul (Negative); Protein-Dipstick 15 mg/dl (Negative); Specific Gravity, Urine 1.010 (1.002-1.030); Urine Bilirubin Dipstick Negative (Negative)
[2024-12-06 19:57] LABS: Red Blood Cells-Urine 0-5 SEEN /hpf (0-5); Squamous Epithelial Cells - UA 10-25 SEEN /hpf (5-10)
[2024-12-06 20:00] VITALS: BP 117/69; PULSE 89
[2024-12-06 20:58] VITALS: BP 117/69; PULSE 84; RESP 16; TEMP 36.6; O2SAT 98
== END 2024-12-06 21:02 | disposition home or self-care (01) ==
PROVIDERS: Emergency Provider Surgery; PCP Family Medicine; Visit Provider Surgery
DX: O23.42 Unspecified infection of urinary tract in pregnancy, second trimester (principal); F31.9 Bipolar disorder, unspecified; F41.1 Generalized anxiety disorder; O21.2 Late vomiting of pregnancy; O99.342 Other mental disorders complicating pregnancy, second trimester; Z3A.21 21 weeks gestation of pregnancy; Z79.899 Other long term (current) drug therapy; Z87.891 Personal history of nicotine dependence
CPT/HCPCS: 80053; 81001; 85025; 87086; 87088; 96361; 96374; 99284; A4216; J2405

== ENCOUNTER → 2024-12-26 | Outpatient (CLI) | payer BC, SELFPAY ==
[2024-12-26 16:27] LABS: Hematocrit 33.8 % (37-47); Hemoglobin 11.9 g/dL (12.0-15.0); Immature Granulocytes Count 0.060 X10^3/uL (0.0-0.0); Mean Corp Hgb Conc 35.2 g/dL (32-36); Mean Corpuscular Volume 91.4 fL (81-99); Mean Platelet Vol. 10.4 fl (6.2-12.0); NRBC Flagged by Analyzer 0 % (0-5); Platelet Count 233 K/mm3 (150-450); RBC Distribution Width CV 12.8 % (11.6-14.6); RBC Distribution Width SD 42.2 fl (35.1-43.9); Red Blood Count 3.70 M/mm3 (4.2-5.4); White Blood Count 10.9 K/mm3 (4.4-11.0)
[2024-12-26 16:46] LABS: AST(SGOT) 15 U/L (<=31); Alanine Aminotransfer ALT/SGPT 9 U/L (<=34); Albumin, Serum 3.5 g/dL (3.5-5.0); Alkaline Phosphatase 67 U/L (35-104); Anion Gap 11 (5-15); BUN 5 mg/dL (4-19); BUN/Creat Ratio 10.2 RATIO (10-20); Calcium,Total 9.4 mg/dL (7.6-11.0); Carbon Dioxide 21.3 mmol/L (21.0-32.0); Chloride 103 mmol/L (98-108); Globulin 3.1 g/dL (2.2-4.2); Glucose 98 mg/dL (70-99); Potassium 3.9 mmol/L (3.3-5.1)
[2024-12-26 16:46] LABS: Creatinine, Urine (random) 26.60 mg/dL (28.00-217.00); Protein, Urine (Random) 8.4 mg/dL (0.0-12.0); Protein:Creat Ratio 315 mg/g CRE (0-200)
== END | disposition home or self-care (01) ==
LOC: BWCLAB 16:04
PROVIDERS: PCP Family Medicine; Visit Provider Obstetrics & Gynecology
DX: O99.891 Other specified diseases and conditions complicating pregnancy (principal); H53.9 Unspecified visual disturbance; O26.899 Other specified pregnancy related conditions, unspecified trimester; R51.9 Headache, unspecified; Z3A.00 Weeks of gestation of pregnancy not specified
CPT/HCPCS: 36415; 80053; 82570; 84156; 85025

== ENCOUNTER → 2024-12-29 | Outpatient (CLI) | payer BC, SELFPAY ==
--- OUTSIDE RECORDS SUMMARY | 2024-12-29 09:24 | XMS RPT_ITS | CCD ---
Author Organization [facility] Care Team Providers Care Structural Engineering Drafting Officer Name Role Phone Unavailable Primary Care Provider Unavailabl e Gerardo GRAY Danuta Unavailable Bertha Wood Primary Care Provider Marie Carrillo DO Unavailable Bertha Wood Cathy Primary Care Provider JOSEPH CEBALLOS Attending Unavailable BEBOIFF, BERTHA CATHY Primary Care Unavailable JOSEPH CEBALLOS Attending Unavailable DELL ALONSO Referring Unavailable JOLLIFF, BERTHA CATHY Primary Care Unavailable JOSEPH CEBALLOS Referring Unavailable JOLLIFF, BERTHA CATHY Primary Care Unavailable JOSEPH CEBALLOS Attending Unavailable JOLLIFF, BERTHA CATHY Primary Care Unavailable KHUSHBU, CHRISTIANNE Referring Unavailable JOLLIFF, BERTHA CATHY Primary Care Unavailable KHUSHBU, CHRISTIANNE Referring Unavailable JOLLIFF, BERTHA CATHY Primary Care Unavailable PLOTTS, CHRISTIANNE Referring Unavailable JOLLIFF, BERTHA CATHY Primary Care Unavailable PLOTROSALIA, CHRISTIANNE Attending Unavailable JOLLIFF, BERTHA CATHY Primary Care Unavailable CHRISTOS, SUNDEEP A Primary Care Unavailable FLORY DE LEON Referring Unavailab HENRI Villarreal Attending Unavailable CHRISTOS, SUNDEEP A Primary Care Unavailable RACHELE, NAVDEEP S Referring Unavailable RACHELE, NAVDEPE S Attending Unavailable RACHELE, NAVDEEP S Referring Unavailable FREDDIE CHAHAL Attending Unavailable CHRISTOS, SUNDEEP A Primary Care Unavailable JOLLIFF, BERTHA S Referring Unavailable JOLLIFF, BERTHA S Primary Care Unavailable RACHELE, NAVDEEP S Attending Unavailable JOLLIFF, BERTHA S Primary Care Unavailable RACHELE, NAVDEEP S Referring Unavailable MARTINE LLANES Attending Unavailable Jolliff, Bertha S Primary Care Unavailable Jolliff, Bertha S Referring Unavailable Tiera Mcfarland Attending Unavailable Jolliff, Bertha S Primary Care Unavailable Tiera Mcfarland Referring Unavailable Marcanthony, Tiera Attending Unavailable Christos, Sundeep Primary Care Unavailable Vigil, Angela Referring Unavailable Vigil, Angela Attending Unavailable Jolliff, Bertha S Primary Care Unavailable Jolliff, Bertha S Referring Unavailable Marcanthony, Tiera Attending Unavailable Jolliff, Bertha S Primary Care Unavailable Marcanthony, Tiera Referring Unavailable Marcanthony, Tiera Attending Unavailable Jolliff, Bertha S Primary Care Unavailable Rachele, Navdeep Referring Unavailable Rachele, Navdeep Attending Unavailable Jolliff, Bertha S Primary Care Unavailable Rachele, Navdeep Referring Unavailable Rachele, Navdeep Attending Unavailable Jolliff, Bertha S Primary Care Unavailable Sanyurah, Emmett Referring Unavailable Sanyurah, Emmett Attending Unavailable Markie Quiros Attending Unavailabl e Christos, Sundeep Primary Care Unavailable Jolliff, Bertha S Primary Care Unavailable Jolliff, Bertha S Referring Unavailable RacheleNavdeep Attending Unavailable Christos, Sundeep Primary Care Unavailable Jolliff, Bertha S Referring Unavailable Vande DilshaddeFlory Attending Unavailabl e Jolliff, Bertha S Primary Care Unavailable Vande Velde Flory Referring Unavailabl e Vande Velde, Flory Attending Unavailabl e Christos, Sundeep Primary Care Unavailable MarcanthonyTiera Attending Unavailable Jolliff, Bertha S Primary Care Unavailable MarcanthonyTiera Referring Unavailable MarcanthonyTiera Attending Unavailable Jolliff, Bertha S Primary Care Unavailable Jolliff, Bertha S Referring Unavailable RacheleNavdeep Attending Unavailable Jolliff, Bertha S Primary Care Unavailable Jolliff, Bertha S Referring Unavailable Vande VeldeFolry Attending Unavailventura e Christos, Sundeep Primary Care Unavailable Christos, Sundeep Referring Unavailable Marcanthony, Tiera Attending Unavailable Christos, Sundeep Primary Care Unavailable Jolliff, Bertha S Referring Unavailable BurtonNohemi bell Attending Unavailable Jolliff, Bertha S Primary Care Unavailable Jolliff, Bertha S Attending Unavailable Jolliff, Bertha S Primary Care Unavailable Minoo Arredondo Attending Unavailable Jolliff, Bertha S Primary Care Unavailable Jolliff, Bertha S Referring Unavailable VigilAngela Attending Unavailable Allergies Allergy Classification Reported Allergen(s) Allergy Type Date of Onset Reaction(s) Facility (13 sources) potato allergenic extract; Translations: [POTATO] Drug Allergy 7 Rash, Hives [facility] (14 sources) Seasonal allergy; Translations: [SEASONAL ALLERGIES] Allergy to substance 8 Other: See Comments, Cough [facility] Medications Current Medications Medication Drug Class(es) Dates Sig (Normalized) Sig (Original) aspirin 81 mg delayed release oral tablet (5 sources) Platelet Aggregation Inhibitor, Nonsteroidal Anti-inflammatory Drug Start: 08-11-2024 take 1 tablet by mouth once daily aspirin, enteric coated (ECOTRIN LOW STRENGTH) 81 mg EC tablet Indications: with uncertain dates, antepartum (HCC) Take 1 tablet by mouth once daily. 90 tablet 3 08/11/2024 Active benztropine mesylate 0.5 mg oral tablet (12 sources) Anticholinergic, Antihistamine Start: 01-13-2023 take 1 tablet by mouth every twelve hours benztropine (COGENTIN) 0.5 mg tablet Take 1 tablet by mouth every 12 (twelve) hours. 01/13/2023 Active Comment on above: Take 1 tablet by esmer every 12 (twelve) hours. busPIRone hydrochloride 15 mg oral tablet (2 sources) Start: 12-14-2019 End: 02-26-2023 take 1 tablet by mouth twice daily busPIRone (BUSPAR) 15 MG tablet Take 15 mg by mouth 2 times daily 60 tablet 1 06/11/2020 Active Comment on above: Take 15 mg by mouth twice daily. cetirizine hydrochloride 10 mg oral tablet (8 sources) Histamine-1 Receptor Antagonist Start: 04-11-2024 take 1 tablet by mouth once daily cetirizine (ZYRTEC) 10 mg tablet Take 10 mg by mouth once daily. 04/11/2024 Active FLUoxetine 20 mg oral capsule (19 sources) Serotonin Reuptake Inhibitor Start: 02-10-2023 take 2 capsules by mouth once daily FLUoxetine (PROZAC) 20 mg capsule Take 40 mg by mouth once daily. 02/10/2023 Active Start: 02-10-2023 take 1 capsule by mo [facility] once daily FLUoxetine (PROZAC) 20 mg capsule Take 1 capsule (20 mg) by mouth daily + 1 capsule of 10mg daily (total 30mg pills) 02/10/2023 Active Start: 02-10-2023 End: 08-11-2024 take 1 capsule by mouth once daily FLUoxetine (PROZAC) 10 mg capsule Take 1 capsule (10 mg) by mouth daily + 1 capsule of 20mg daily (total 30mg) 02/10/2023 08/11/2024 Discontinued (Discontinued by Patient) Comment on above: Take 1 capsule (20 m g) by mouth daily + 1 capsule of 10mg daily (total 30mg pills) Take 1 capsule (10 m g) by mouth daily + 1 capsule of 20mg daily (total 30mg) levocetirizine dihydrochloride 5 mg oral tablet (8 sources) Histamine-1 Receptor Antagonist Start: take 1 tablet by mouth once daily levocetirizine 5 mg tablet Take 5 mg by mouth once daily. 04/11/2024 Active lurasidone hydrochloride 60 mg oral tablet (8 sources) Atypical Antipsychotic Start: take 1 tablet by mouth once daily lurasidone (LATUDA) 60 mg tablet Take 60 mg by mouth once daily. 04/08/2024 Active VIT 93-IRON FUM-FOLIC ORAL (5 sources) VIT 93- IRON FUM-FOLIC ORAL Take by mouth. Active Completed/Discontinued Medications Medication Drug Class(es) Dates Sig (Normalized) Sig (Original) ARIPiprazole 15 mg oral tablet (1 source) Atypical Antipsychotic Start: 01-12-2023 take 1 tablet by mouth once daily ARIPiprazole (ABILIFY) 15 mg tablet Take 1 Tablet By Oral Route 1 time per day 0 01/12/2023 Active Comment on above: Take 1 Tablet By Ora l Route 1 time per day Biotin (7 sources) End: 08-11-2024 BIOTIN ORAL Take by mouth. 08/11/2024 Discontinued (Discontinued by Patient) BIOTIN ORAL Take by mouth. Active BIOTIN ORAL Take by mouth. 0 Active Comment on above: Take by mouth. cariprazine 3 mg oral capsule (6 sources) Atypical Antipsychotic End: 2024 take 1 capsule by mouth once daily cariprazine (VRAYLAR) 3 mg capsule Take by mouth once daily. 08/11/2024 Discontinued (Discontinued by Patient) doxepin 3 mg oral tablet (1 source) Tricyclic Antidepressant End: 2022 take 2 tablets by mouth once daily at bedtime Doxepin 3 mg tab Take 6 mg by mouth daily at bedtime. 0 02/26/2023 Discontinued (Other) Comment on above: Take 6 mg by mouth d aily at bedtime. drospirenone / Ethinyl Estradiol (1 source) Progestin, Estrogen Start: 2019 End: 2022 take 1 tablet by mouth once daily Drospirenone-Ethinyl Estradiol 3-0.03 mg per tablet Take 1 tablet by mouth once daily. 0 04/09/2020 02/26/2023 Discontinued (Other) Comment on above: Take 1 tablet by esmer th once daily. ergocalciferol 1.25 mg oral capsule (1 source) Provitamin D2 Compound End: 2022 take 1 capsule by mouth every week ergocalciferol 50,000 unit capsule (VITAMIN D2, DRISDOL) Take 50,000 Units by mouth one time a week. 0 02/26/2023 Discontinued (Other) Comment on above: Take 50,000 Units by mouth one time a week. lamoTRIgine 150 mg oral tablet (7 sources) Mood Stabilizer, Anti-epileptic Agent Start: 2022 End: 2024 take 1 tablet by mouth every twelve hours lamoTRIgine (LAMICTAL) 150 mg tablet Take 1 tablet by mouth every 12 (twelve) hours. 01/13/2023 08/11/2024 Discontinued (Course of therapy completed) Comment on above: Take 1 tablet by esmer th every 12 (twelve) hours. levonorgestrel 0.837201 mg/hr intrauterine system (7 sources) Progestin, Progestin-containing Intrauterine Device End: 2024 levonorgestrel (LILETTA) 20.4 mcg/24 hrs (8 yrs) 52 mg IUD by INTRAUTERINE route. 08/11/2024 Discontinued (Discontinued by Patient) Comment on above: by INTRAUTERINE rout e. lidocaine 0.04 mg/mg medicated patch (1 source) Antiarrhythmic, Amide Local Anesthetic Start: 2020 End: 2022 apply 1 dose transdermal route once daily lidocaine (SALONPAS) 4 % patch Apply 1 Patch as directed once daily. 0 07/24/2020 02/26/2023 Discontinued (Other) Comment on above: Apply 1 Patch as dir ected once daily. melatonin 3 mg oral tablet (2 sources) Start: 2020 End: 2022 take 1 tablet by mouth every twenty-four hours as needed melatonin 3 mg tablet Take 3 mg by mouth at bedtime as needed. 0 06/11/2020 02/26/2023 Discontinued (Other) Comment on above: Take 3 mg by mouth a t bedtime as needed. mirtazapine 30 mg oral tablet (2 sources) End: 2022 take 1 tablet by mouth once daily at bedtime mirtazapine (REMERON) 30 mg tablet Take 30 mg by mouth daily at bedtime. 0 02/26/2023 Discontinued (Other) Comment on above: Take 30 mg by mouth daily at bedtime. 24 hr venlafaxine 75 mg extended release oral capsule (2 sources) Serotonin and Norepinephrine Reuptake Inhibitor Start: 2020 End: 2022 take 1 capsule by mouth once daily venlafaxine ER (EFFEXOR XR) 75 mg 24 hr capsule Take 150 mg by mouth once daily. 0 06/12/2020 02/26/2023 Discontinued (Other) Start: 06-12-2020 take 1 capsule by mo ut once daily at breakfast venlafaxine (EFFEXOR XR) 75 MG extended release capsule Take 1 capsule by mouth daily (with breakfast) 30 capsule 3 06/12/2020 Active Comment on above: Take 150 mg by mouth once daily. Problems Active Problems Problem Classification Problem Date Documented Date Episodic/Chronic Anxiety disorders (14 sources) Anxiety disorder of adolescence; Translations: [Anxiety disorder, unspecified] Onset: 10-11-2015 06-08-2023 Chronic Blindness and vision defects (1 source) Unspecified visual disturbance; Translations: [Unspecified visual disturbance] Onset: 12-26-2024 Episodic Contraceptive and procreative management (2 sources) Patient encounter status; Translations: [Encounter for removal of intrauterine contraceptive device] 01-18-2024 Episodic Fluid and electrolyte disorders (1 source) Dehydration; Translations: [Dehydration] Onset: 10-25-2024 Episodic Headache; including migraine (1 source) Headache; including migraine; Translations: [Headache, unspecified] Onset: 12-26-2024 Hemorrhage during ; abruptio placenta; placenta previa (7 sources) Threatened miscarriage; Translations: [Threatened ] Onset: 08-11-2024 08-11-2024 Episodic Menstrual disorders (3 sources) Secondary amenorrhea; Translations: [Secondary amenorrhea] Onset: 11-25-2023 02-26-2023 Chronic Miscellaneous mental health disorders (8 sources) Anorexia nervosa; Translations: [Anorexia nervosa, unspecified] Onset: 08-11-2024 08-11-2024 Chronic Mood disorders (20 sources) Recurrent major depressive episodes, moderate ; Translations: [Major depressive disorder, recurrent, moderate] Onset: 06-11-2020 06-11-2020 Chronic Mood disorders (1 source) Mood disorders; Translations: [Depression, unspecified] Onset: 12-26-2024 Nausea and vomiting (1 source) Vomiting, unspecified; Translations: [Vomiting, unspecified] Onset: 12-26-2024 Episodic Other complications of (7 sources) High risk ; Translations: [Supervision of high risk , unspecified, first trimester] Onset: 08-11-2024 08-11-2024 Episodic Other complications of (1 source) Other specified related conditions, unspecified trimester; Translations: [Other specified related conditions, unspecified trimester] Onset: 12-26-2024 Episodic Other complications of (1 source) Other specified related conditions, second trimester; Translations: [Other specified related conditions, second trimester] Onset: 12-26-2024 Episodic Other complications of (1 source) Supervision of high risk , unspecified, second trimester; Translations: [Supervision of high risk , unspecified, second trimester] Onset: 12-26-2024 Episodic Other complications of (1 source) Late vomiting of ; Translations: [Late vomiting of ] Onset: 12-12-2024 Episodic Other complications of (1 source) Supervision of high risk , unspecified, unspecified trimester; Translations: [Supervision of high risk , unspecified, unspecified trimester] Onset: 11-09-2024 Episodic Other complications of (1 source) Endocrine, nutritional and metabolic diseases complicating , unspecified trimester; Translations: [Endocrine, nutritional and metabolic diseases complicating , unspecified trimester] Onset: 10-10-2024 Episodic Other diseases of veins and lymphatics (12 sources) Escape of lymph; 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, unspecified] Onset: 07-18-2020 1 Chronic Other nervous system disorders (20 sources) Thoracic outlet syndrome; Translations: [Brachial plexus disorders] Onset: 03-28-2016 07-23-2020 Chronic Residual codes; unclassified (1 source) Intolerant of cold; Translations: [Other general symptoms and signs] 11-25-2023 Episodic Residual codes; unclassified (1 source) Trying to conceive; Translations: [Other specified health status] 06-29-2024 Episodic Residual codes; unclassified (1 source) Gestation period, 6 weeks; Translations: [Less than 8 weeks gestation of ] 08-11-2024 Episodic Residual codes; unclassified (1 source) Unspecified blood type, Rh negative; Translations: [Unspecified blood type, Rh negative] Onset: 12-26-2024 Episodic Residual codes; unclassified (1 source) 24 weeks gestation of ; Translations: [24 weeks gestation of ] Onset: 12-26-2024 Episodic Residual codes; unclassified (1 source) 16 weeks gestation of ; Translations: [16 weeks gestation of ] Onset: 11-04-2024 Episodic Residual codes; unclassified (1 source) 13 weeks gestation of ; Translations: [13 weeks gestation of ] Onset: 10-13-2024 Episodic Residual codes; unclassified (1 source) 12 weeks gestation of ; Translations: [12 weeks gestation of ] Onset: 10-05-2024 Episodic Unclassified (1 source) Cannabis use, unspecified, in remission; Translations: [Cannabis use, unspecified, in remission] Onset: 12-26-2024 Past or Other Problems Problem Classification Problem Date Documented Da te Episodic/Chronic Allergic reactions (13 sources) Cholinergic urticaria; 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] Onset: 04-24-2015 06-08-2023 Episodic Other and delivery including normal (11 sources) with uncertain dates; Translations: [Encounter for supervision of normal , unspecified, unspecified trimester] Onset: 08-11-2024 08-11-2024 Episodic Other screening for suspected conditions (not mental disorders or infectious disease) (1 source) Encounter for other specified screening; Translations: [Encounter for other specified screening] Onset: 09-06-2024 Episodic Other skin disorders (12 sources) Acne; Translations: [Acne, unspecified] Onset: 08-26-2016 08-26-2016 Episodic Residual codes; unclassified (1 source) Other general symptoms and signs; Translations: [Intolerance to cold] Onset: 11-25-2023 Episodic Residual codes; unclassified (1 source) 9 weeks gestation of ; Translations: [9 weeks gestation of ] Onset: 09-14-2024 Episodic Residual codes; unclassified (1 source) Less than 8 weeks gestation of ; Translations: [Less than 8 weeks gestation of ] Onset: 08-19-2024 Episodic Suicide and intentional self-inflicted injury (1 source) Suicidal thoughts; Translations: [Suicidal ideation] Onset: 06-05-2020 Resolved: 06-11-2020 06-11-2020 Episodic Suicide and intentional self-inflicted injury (1 source) Suicide attempt ; Translations: [Suicide attempt] Onset: 06-04-2020 Resolved: 06-11-2020 06-11-2020 Results Test Name Value Interpretation Reference Range Facil ity CBC W/Diff, Automatedon 07-2 Absolute Lymph 1.31 X10 3/uL Normal 0.83-4.51 [facility] Comment on above: Performed By: #### L 501.0900, L500.4050, L100.0100 #### [facility] [address] [place], [address] Absolute Neut 8.8 X10 3/uL High 2.0-7.7 [facility] Comment on above: Performed By: #### L 501.0900, [id number], L100.0100 #### [facility] [address] [facility] [place], [address] Basophils/100 WBC (Bld) 0.2 % Normal 0-1 [facility] Comment on above: Performed By: #### L 501.0900, [id number], L100.0100 #### [facility] [address] [place], [address] Eosinophils/100 WBC (Bld) 0.8 % Normal 0-5 [facility] Comment on above: Performed By: #### L 501.0900, [id number], L100.0100 #### [facility] [address] [place], [address] Erythrocyte distribution width (RBC) [Ratio] 12.8 % Normal 11.6-14.6 [facility] Comment on above: Performed By: #### L 501.0900, [id number], L100.0100 #### [facility] [address] [place], [address] Hematocrit (Bld) [Volume fraction] 33.8 % Low 37-47 [facility] Comment on above: Performed By: #### L 501.0900, [id number], L100.0100 #### [facility] [address] [place], [address] Hemoglobin (Bld) [Mass/Vol] 11.9 g/dL Low 12.0-15.0 [facility] Comment on above: Performed By: #### L 501.0900, [id number], L100.0100 #### [facility] [address] [place], [address] IG% 0.500 Normal 0.0-0.9 [facility] Comment on above: Result Comment: IG% - Immature Granulocytes (promyelocytes, myelocytes and metamyelocytes) > 1% indicates that a LEFT SHIFT is Present. Performed By: #### L 501.0900, [id number], L100.0100 #### [facility] [address] [place], [address] Lymphocytes/100 WBC (Bld) 12.0 % Low 19-41 [facility] Comment on above: Performed By: #### L 501.0900, [id number], L100.0100 #### [facility] [address] [place], [address] MCH (RBC) [Entitic mass] 32.2 pg High 27.0-32.0 [facility] Comment on above: Performed By: #### L 501.0900, [id number], L100.0100 #### [facility] [address] [place], [address] MCHC (RBC) [Mass/Vol] 35.2 g/dL Normal 32-36 [facility] Comment on above: Performed By: #### L 501.0900, [id number], L100.0100 #### [facility] [address] [place], [address] MCV (RBC) [Entitic vol] 91.4 fL Normal 81-99 [facility] Comment on above: Performed By: #### L 501.0900, [id number], L100.0100 #### [facility] [address] [place], [address] Monocytes/100 WBC (Bld) 6.2 % Normal 0-10 [facility] Comment on above: Performed By: #### L 501.0900, [id number], L100.0100 #### [facility] [address] [place], [address] Neutrophils/100 WBC (Bld) 80.3 % High 47-70 [facility] Comment on above: Performed By: #### L 501.0900, [id number], L100.0100 #### [facility] [address] [place], [address] Nucleated RBC (Bld) [#/Vol] 0 10*3/uL Normal 0-5 [facility] Comment on above: Performed By: #### L 501.0900, [id number], L100.0100 #### [facility] [address] [place], [address] Platelet mean volume (Bld) [Entitic vol] 10.4 fL Normal 6.2-12.0 [facility] Comment on above: Performed By: #### L 501.0900, [id number], L100.0100 #### [facility] [address] [place], [address] Platelets (Bld) [#/Vol] 233 10*3/uL Normal 150-450 [facility] Comment on above: Performed By: #### L 501.0900, [id number], L100.0100 #### [facility] [address] [place], [address] RBC (Bld) [#/Vol] 3.70 10*6/uL Low 4.2-5.4 [facility] Comment on above: Performed By: #### L 501.0900, [id number], L100.0100 #### [facility] [address] [place], [address] RDW SD 42.2 fl Normal 35.1-43.9 [facility] Comment on above: Performed By: #### L 501.0900, [id number], L100.0100 #### [facility] [address] [place], [address] WBC (Bld) [#/Vol] 10.9 10*3/uL Normal 4.4-11.0 [facility] Comment on above: Performed By: #### L 501.0900, [id number], L100.0100 #### [facility] [address] [place], [address] Comprehensive Metabolic Prof [facility] 12-26-2024 Albumin [Mass/Vol] 3.5 g/dL Normal 3.5-5.0 [facility] Comment on above: Performed By: #### L 501.0900, [id number], L100.0100 #### [facility] [address] [place], [address] Albumin/Globulin [Mass ratio] 1.1 {ratio} Normal 0.9-2.4 [facility] Comment on above: Performed By: #### L 501.0900, [id number], L100.0100 #### [facility] [address] [place], [address] ALK PHOS 67 U/L Normal 35-104 [facility] Comment on above: Performed By: #### L 501.0900, [id number], L100.0100 #### [facility] [address] [place], [address] ALT [Catalytic activity/Vol] 9 U/L Normal <=34 [facility] Comment on above: Performed By: #### L 501.0900, [id number], L100.0100 #### [facility] [address] [place], [address] AST [Catalytic activity/Vol] 15 U/L Normal <=31 [facility] Comment on above: Performed By: #### L 501.0900, [id number], L100.0100 #### [facility] [address] [place], [address] Bilirubin [Mass/Vol] 0.18 mg/dL Normal 0.00-1.30 [facility] Comment on above: Performed By: #### L 501.0900, [id number], L100.0100 #### [facility] [address] [place], [address] BUN/CRE 10.2 RATIO Normal 10-20 [facility] Comment on above: Performed By: #### L 501.0900, [id number], L100.0100 #### [facility] [address] [place], [address] Calcium [Mass/Vol] 9.4 mg/dL Normal 7.6-11.0 [facility] Comment on above: Performed By: #### L 501.0900, [id number], L100.0100 #### [facility] [address] [place], [address] Chloride [Moles/Vol] 103 mmol/L Normal 98-108 [facility] Comment on above: Performed By: #### L 501.0900, [id number], L100.0100 #### [facility] [address] [place], [address] CO2 [Moles/Vol] 21.3 mmol/L Normal 21.0-32.0 [facility] Comment on above: Performed By: #### L 501.0900, [id number], L100.0100 #### [facility] [address] [place], [address] Creatinine [Mass/Vol] 0.50 mg/dL Low 0.70-1.20 [facility] Comment on above: Performed By: #### L 501.0900, [id number], L100.0100 #### [facility] [address] [place], [address] GAP 11 Normal 5-15 [facility] Comment on above: Performed By: #### L 501.0900, [id number], L100.0100 #### [facility] [address] [place], [address] GFR/1.73 sq M.predicted among non-blacks MDRD (S/P/Bld) [Vol rate/Area] 135 mL/min/{1.73_m2} Normal >60 [facility] Comment on above: Result Comment: mL/m in/1.73m2 CKD-EPI Creatinine Equation (2020) Performed By: #### L 501.0900, L500.4050, L100.0100 #### [facility] [address] [place], [address] Globulin (S) [Mass/Vol] 3.1 g/dL Normal 2.2-4.2 [facility] Comment on above: Performed By: #### L 501.0900, L500.4050, L100.0100 #### [facility] [address] [place], [address] Glucose [Mass/Vol] 98 mg/dL Normal 70-99 [facility] Comment on above: Performed By: #### L 501.0900, L500.4050, L100.0100 #### [facility] [address] [place], [address] Potassium [Moles/Vol] 3.9 mmol/L Normal 3.3-5.1 [facility] Comment on above: Performed By: #### L 501.0900, L500.4050, L100.0100 #### [facility] [address] [place], [address] Sodium [Moles/Vol] 136 mmol/L Normal 133-145 [facility] Comment on above: Performed By: #### L 501.0900, L500.4050, L100.0100 #### [facility] [address] [place], [address] T PROT 6.5 g/dL Normal 5.9-8.4 [facility] Comment on above: Performed By: #### L 501.0900, L500.4050, L100.0100 #### [facility] [address] [place], [address] Urea nitrogen [Mass/Vol] 5 mg/dL Normal 4-19 [facility] Comment on above: Performed By: #### L 501.0900, L500.4050, L100.0100 #### [facility] [address] [place], [address] [facility] Visit Reporton 12-26-2024 [facility] [employer] Office Visit Report [facility] [address], [address] [place] [address] OFFICE VISIT Date of Service: 12/26/24 MR#: [id number]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 Address: [address] [place] [address] Performed By: #### 5 7021-8 ####[facility] [id number] [place] [address] [place] MCV (RBC) [Entitic vol] 88.2 fL Normal 80.0-100.0 [facility] Comment on above: Order Comment: Speci men Type: BLOOD SPECIMENOrdering Facility: [facility] Address: [address] [place] [address] Performed By: #### 5 7021-8 ####[facility] MILLWNCLIA [id number] [place] [address] [place] Monocytes (Bld) [#/Vol] 0.66 10*3/uL Normal <0.87 [facility] Comment on above: Order Comment: Speci men Type: BLOOD SPECIMENOrdering Facility: [facility] Address: [address] [place] [address] Performed By: #### 5 7021-8 ####[facility] HOSPITALL[facility] [id number] [place] [address] [place] Monocytes/100 WBC (Bld) 8.1 % Normal [facility] Comment on above: Order Comment: Speci men Type: BLOOD SPECIMENOrdering Facility: [facility] Address: [address] [place] [address] Performed By: #### 5 7021-8 ####[facility]IT[facility] [id number] [place] [address] [place] Neutrophils (Bld) [#/Vol] 5.93 10*3/uL Normal 1.45-7.50 [facility] Comment on above: Order Comment: Speci men Type: BLOOD SPECIMENOrdering Facility: [facility] Address: [address] [place] [address] Performed By: #### 5 7021-8 ####[facility]IT[facility] [id number] [place] [address] [place] Neutrophils/100 WBC (Bld) 72.9 % Normal [facility] Comment on above: Order Comment: Speci men Type: BLOOD SPECIMENOrdering Facility: [facility] Address: [address] [place] [address] Performed By: #### 5 7021-8 ####[facility] [id number] [place] [address] [place] Nucleated RBC (Bld) [#/Vol] 10*3/uL Normal <0.01 [facility] Comment on above: Order Comment: Speci men Type: BLOOD SPECIMENOrdering Facility: [facility] Address: [address] [place] [address] Performed By: #### 5 7021-8 ####[facility] [id number] [place] [address] [place] Nucleated RBC/100 WBC (Bld) [Ratio] 0.0 /100 WBC Normal [facility] Comment on above: Order Comment: Speci men Type: BLOOD SPECIMENOrdering Facility: [facility] Address: [address] [place] [address] Performed By: #### 5 7021-8 ####[facility] [id number] [place] [address] [place] Platelet mean volume (Bld) [Entitic vol] 10.0 fL Normal 9.0-12.7 [facility] Comment on above: Order Comment: Speci men Type: BLOOD SPECIMENOrdering Facility: [facility] Address: [address] [place] [address] Performed By: #### 5 7021-8 ####[facility] [id number] [place] [address] [place] Platelets (Bld) [#/Vol] 266 10*3/uL Normal 150-400 [facility] Comment on above: Order Comment: Speci men Type: BLOOD SPECIMENOrdering Facility: [facility] Address: [address] [place] [address] Performed By: #### 5 7021-8 ####[facility] [id number] [place] [address] [place] RBC (Bld) [#/Vol] 4.56 10*6/uL Normal 3.90-5.20 [facility] Comment on above: Order Comment: Speci men Type: BLOOD SPECIMENOrdering Facility: [facility] Address: [address] [place] [address] Performed By: #### 5 7021-8 ####[facility] [id number] [place] [address] [place] WBC (Bld) [#/Vol] 8.14 10*3/uL Normal 3.70-11.00 [facility] Comment on above: Order Comment: Speci men Type: BLOOD SPECIMENOrdering Facility: [facility] Address: [address] [place] [address] Performed By: #### 5 7021-8 ####[facility] [id number] [place] [address] [place] HBV surface Ag Ql (S)on 07-30 Interpretation and review of laboratory results Normal [facility] HBV surface Ag Ser Qlon 07-30 HBV surface Ag Ql (S) Negative Normal Negative [facility] Comment on above: Order Comment: Speci men Type: BLOOD SPECIMENOrdering Facility: [facility] Address: [address] [place] [address] Performed By: #### 5 195-3, 26022-2, 01465-4 ####[facility] LABCLIA [id number] [place] [address] [place] HCG QUANTITATIVEon 5 HCG.beta subunit Qn 8329 m[IU]/mL [facility] Comment on above: QUANTITATIVE HCG NOR MAL RANGES Weeks of Gestation (Weeks Since LMP) 3 Weeks (5.8-71.2 mIU/mL) 4 Weeks (9.5-750 mIU/mL) 5 Weeks (217-7138 mIU/mL) 6 Weeks (158-10316 mIU/mL) 7 Weeks (3697-617935 mIU/mL) 8 Weeks (18841-920155 mIU/mL) 9 Weeks (80785-462054 mIU/mL) 10 Weeks (34217-343341 mIU/mL) 12 Weeks (81635-651020 mIU/mL) Referenced to 4th IS of [facility] HCG.beta subunit Qnon 2024 Interpretation and review of laboratory results Abnormal [facility] HCV Ab Ser Qlon 08-11-2024 HCV Ab Ql (S) Negative Normal Negative [facility] Comment on above: Order Comment: Speci men Type: BLOOD SPECIMENOrdering Facility: [facility] Address: [address] [place] [address] Result Comment: The result suggests no evidence of active infection with Hepatitis C virus. Should recent infection be suspected, repeat testing may be considered 4-6 weeks after this draw. Performed By: #### 1 6128-1 ####[facility] LABCLIA [id number] [place] [address] [place] HEPATITIS B SURFACE ANTIGENo n 08-11-2024 HBV surface Ag Ql (S) Negative Negative [facility] HIV 1+2 Ab IA Qlon HIV 1 and 2 Ab IA.rapid Nom (S/P/Bld) [facility] Comment on above: Test not indicated. HIV 1+2 Ab+HIV1 p24 Ag IA Ql Non-Reactive Nonreactive [facility] HIV immunoassay testing algorithm interpretation (S/P/Bld) [Interp] [facility] Comment on above: No evidence of HIV-1 or HIV-2 infection. Should recent infection be suspected, repeat testing may be considered 2-3 weeks after this draw. [place] Rev. Code 3701.243(E): This information has been disclosed to you from confidential records protected from disclosure by state law. You shall make no further disclosure of this information without the specific, written, and informed release of the individual to whom it pertains or as otherwise permitted by state law. A general authorization for the release of medical or other information is not sufficient for the purpose of the release of HIV test results or diagnoses. [facility] HIV 1 and 2 Ab IA.rapid Nom (S/P/Bld) Normal [facility] Comment on above: Order Comment: Speci men Type: BLOOD SPECIMENOrdering Facility: [facility] Address: [address] [place] [address] Result Comment: Test not indicated. Performed By: #### 5 195-3, 57739-9, 05041-9 ####[facility] [id number] [place] [address] [place] HIV 1+2 Ab+HIV1 p24 Ag IA Ql Non-Reactive Normal Nonreactive [facility] Comment on above: Order Comment: Speci men Type: BLOOD SPECIMENOrdering Facility: [facility] Address: [address] [place] [address] Performed By: #### 5 195-3, 02386-1, 72598-0 ####[facility] [id number] [address] [place] HIV immunoassay testing algorithm interpretation (S/P/Bld) [Interp] Normal [facility] Comment on above: Order Comment: Speci men Type: BLOOD SPECIMENOrdering Facility: [facility] Address: [address] [place] [address] Result Comment: No e vidence of HIV-1 or HIV-2 infection. Should recent infection be suspected, repeat testing may be considered 2-3 weeks after this draw. [place] Rev. Code 3701.243(E): This information has been disclosed to you from confidential records protected from disclosure by state law. ???You shall make no further disclosure of this information without the specific, written, and informed release of the individual to whom it pertains or as otherwise permitted by state law. A general authorization for the release of medical or other information is not sufficient for the purpose of the release of HIV test results or diagnoses. Performed By: #### 5 195-3, 46744-0, 59195-3 ####[facility] [id number] [place] [address] [place] HbA1c (Bld)on 08-11-2024 Average glucose Estimated from glycated hemoglobin (Bld) [Mass/Vol] 97 mg/dL [facility] Comment on above: eAG: (Estimated aver age glucose) is a calculated value from HgbA1c and is billing customer service representative of the average blood glucose level in the last 2-3 month period. HbA1c (Bld) [Mass fraction] 5 % 4.3 - 5.6 % [facility] Comment on above: [place] Diabetes As sociation guidelines indicate that patients with HgbA1c in the range 5.7-6.4% are at increased risk for development of diabetes, and intervention by lifestyle modification may be beneficial. HgbA1c greater or equal to 6.5% is considered diagnostic of diabetes. [facility] Average glucose Estimated from glycated hemoglobin (Bld) [Mass/Vol] 97 mg/dL Normal [facility] Comment on above: Order Comment: Specwilma west Type: BLOOD SPECIMENOrdering Facility: [facility] Address: [address] [place] [address] Result Comment: eAG: (Estimated average glucose) is a calculated value from HgbA1c and is billing customer service representative of the average blood glucose level in the last 2-3 month period. Performed By: #### 5 5454-3 ####[facility] LABCLIA [id number] [address] OF [facility] HbA1c (Bld) [Mass fraction] 5.0 % Normal 4.3-5.6 [facility] Comment on above: Order Comment: Nicol [place] Type: BLOOD SPECIMENOrdering Facility: [facility] Address: [address] [place] [address] Result Comment: [place] Diabetes Association guidelines indicate that patients with HgbA1c in the range 5.7-6.4% are at increased risk for development of diabetes, and intervention by lifestyle modification may be beneficial. HgbA1c greater or equal to 6.5% is considered diagnostic of diabetes. Performed By: #### 5 5454-3 ####[facility] LABCLIA [id number] [place] [address] [place] POC [employer] ENGINEER ULTRASOUNDon 08-12-19 25 Indication Viability; confirm cardiac activity Impression Single intrauterine gestational sac, cardiac activity is not visualized Recommendations Follow up for repeat ultrasound in at least 14 days to confirm viability Method Transvaginal ultrasound examination Nava . Number of embryos: 1 Dating LMP on: 06/30/2024 Cycle: irregular cycle GA by LMP 6 w + 0 d HERBIE by LMP: 04/06/2025 Assigned: based on the LMP, selected on 08/11/2024 Assigned GA 6 w + 0 d Assigned HERBIE: 04/06/2025 Assessment Gestational sac: visualized. Location: intrauterine Yolk sac: uncertain Embryo: uncertain Performed By: Christianne Carranza CNM Read By: Christianne Carranza CNM MATERNAL MEDICINE [facility] Radiology Study observation (narrative) [facility] RUBELLA IGG ANTIBODYon 08-11 RUBELLA IGG AB, QUAL Positive Normal Positive [facility] Comment on above: Order Comment: Speci men Type: BLOOD SPECIMENOrdering Facility: [facility] Address: [address] [place] [address] Result Comment: The result suggests recent or past exposure to Rubella virus or history of Rubella vaccination. Positive result may also be seen due to presence of passively-transferred antibodies. Please correlate with patient's history. Performed By: #### R UBIGG ####[facility] LABCLIA [id number] [place] [address] [place] Reagin and Treponema pallidu m IgG and IgM [Interp]on 08-11-2024 T. pallidum IgG+IgM IA Ql (S) Non-Reactive Nonreactive [facility] T. pallidum IgG+IgM IA Ql (S) Non-Reactive Normal Nonreactive [facility] Comment on above: Order Comment: Speci men Type: BLOOD SPECIMENOrdering Facility: [facility] Address: [address] [place] [address] Performed By: #### 5 195-3, 01339-9, 40581-4 ####[facility] LABCLIA [id number] [place] [address] [place] Reagin+T pallidum IgG+IgM Se rPl-Impon 08-11-2024 Reagin and Treponema pallidum IgG and IgM [Interp] Cannot exclude recent Treponemal infection if specimen collected within 7-10 days after appearance of suspect lesions or 2-3 weeks after an exposure. Clinical correlation is required. Normal [facility] Comment on above: Order Comment: Speci men Type: BLOOD SPECIMENOrdering Facility: [facility] Address: [address] [place] [address] Performed By: #### 5 195-3, 17659-7, 90364-4 ####[facility] LABCLIA [id number] [place] [address] [place] SYPHILIS TREPONEMAL W/REFLEX on 08-11-2024 Reagin and Treponema pallidum IgG and IgM [Interp] Cannot exclude recent Treponemal infection if specimen collected within 7-10 days after appearance of suspect lesions or 2-3 weeks after an exposure. Clinical correlation is required. [facility] TRICHOMONAS VAGINALIS NAATon 08-11-2024 T. vaginalis DNA SANTY+probe Ql (Unsp spec) Not detected Normal Not detected [facility] Comment on above: Order Comment: Speci men Type: SWABOrdering Facility: [facility] Address: [address] [place] [address] Performed By: #### 3 6902-5, TRVAMP ####[facility] LABCLIA [id number] [place] [address] [place] TYPE + SCREEN PRENATALon ABO group Nom (Bld) A [facility] Blood group antibody screen Ql Negative [facility] Rh Nom (Bld) Negative [facility] Type and Screen Expiration 08/14/2024 23:59 [facility] ABO A Normal [facility] Comment on above: Order Comment: Speci men Type: BLOOD SPECIMENOrdering Facility: [facility] Address: [address] [place] [address] Performed By: #### T SPN ####[facility] BLOOD BANKCLIA [id number] [place] [address] [place] Rh Nom (Bld) Negative Normal [facility] Comment on above: Order Comment: Speci men Type: BLOOD SPECIMENOrdering Facility: [facility] Address: [address] [place] [address] Performed By: #### T SPN ####[facility] B[facility] BANKCLIA [id number] [address] [place] TYPE AND SCREEN EXPIRATION 08/14/2024 23:59 Normal [facility] Comment on above: Order Comment: Speci men Type: BLOOD SPECIMENOrdering Facility: [facility] Address: [address] [place] [address] Performed By: #### T SPN ####[facility] BLOOD BANKCLIA [id number] [address] OF [facility] CNPNon 08-09-2024 CNPN Telephone (OBGYWM) ALEJANDRA KIRAN ([id number]) 2 F Date Time Provider Department 08/09/24 CHRISTIANNE CARRANZA During your visit today, we recorded the following information about you: Perla Munoz RN 08/09/2024 9:51 AM Signed Left message for patient to return phone call to complete nurse intake questions for her upcoming appointment. Patient has an appointment with Christianne Carranza for NOB appointment. I am here today if she calls back or transfer to Flory Quintanilla RN 08/09/2024 10:02 AM Signed Patient called back. Can call her around 10:30 or 11:00 today. Thank you. Allergies As of Date: 08/09/2024 Noted Allergy Reaction POTATO 06/24/2016 2 - Rash 4 - Hives SEASONAL ALLERGIES 02/18/2018 3 - Cough Comments: Seasonal allergies Date Reviewed: 06/29/2024 Reviewed by: Erica Beverly MA - Fully Assessed Reason for Visit: Appointment [186] Prescriptions as of 08/24/2024 - aspirin, enteric coated (ECOTRIN LOW STRENGTH) 81 mg EC tablet Take 1 tablet by mouth once daily. - VIT 93-IRON FUM-FOLIC ORAL Take by mouth. - cetirizine (ZYRTEC) 10 mg tablet Take 10 mg by mouth once daily. - lurasidone (LATUDA) 60 mg tablet Take 60 mg by mouth once daily. - levocetirizine 5 mg tablet Take 5 mg by mouth once daily. - benztropine (COGENTIN) 0.5 mg tablet Take 1 tablet by mouth every 12 (twelve) hours. - FLUoxetine (PROZAC) 20 mg capsule Take 40 mg by mouth once daily. 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/2015 Diagnosed: 06/08/2023 MDD (major depressive disorder), recurrent epis*06/11/2020 Diagnosed: 06/08/2023 Encounter Status:Closed by PERLA MUNOZ on 08/24/24 [facility] CNOVon 06-29-2024 CNOV Office Visit (OBGYWM ) ALEJANDRA KIRAN ([id number]) 2 F Date Time Provider Department 06/29/24 9:10 AM JOSEPH CEBALLOS OBRAYSHAWN During your visit today, we recorded the following information about you: Blood pressure Weight Height Last Period 100/64 80.7 kg 1.727 m 06/01/24 Joseph Ceballos MD 07/01/2024 10:13 AM Signed Inside Sales Advisor offered: Patient accepts, visit chaperoned by Erica Beverly MA. Alejandra is a 23 year old who presents for an annual gynecologic exam without complaints. Still get period: Yes Bleeding amount bothersome: No Bleeding between periods: No Period symptoms: Cramps; Mood change; Pelvic pain Time with current partner: 3 years Number of lifetime partners: 4 control frequency: Sometimes HPV vaccine: Unsure; HPV:negative Last pap smear: 06/08/2023 History of abnormal pap: No, all prior PAP smears have been normal Bothersome pelvic pain: No Last mammogram: never Patient concerns for STD exposure: No. Last sexual contact: 3 days OB History T0 L0 SAB0 IAB0 Ectopic0 Multiple0 Live Births0 Floor Sweeper History LMP: 06/01/2024, Having periods Age at Menarche: 13 Age at First : Age at Menopause: Floor Sweeper History Comments: Sexual Activity: Yes; Male Contraception: No contraception data on record Menstrual Tracking History Flowsheet Row Office Visit from 06/29/2024 in OB/Gynecology Period Cycle (Days) 34 Period Duration (Days) 4 Menstrual Flow Heavy PAST MEDICAL HISTORY Diagnosis Date Anorexia nervosa Anxiety Bipolar 1 disorder (HCC) Depression Scoliosis TOS (thoracic outlet syndrome) bilateral Urticaria PAST SURGICAL HISTORY Procedure Laterality Date EXCISION FIRST AND/OR CERVICAL RIB Right 2015 EXTRACTION ERUPTED TOOTH/EXR SHOULDER SURGERY HX Right 2016 SHOULDER SURGERY HX Left 2020 x2 FAMILY HISTORY Problem Relation Age of Onset other (ovarian cysts) Mother 45 oopherectomy No Known Problems Father Heart Brother 21 Diabetes Maternal Grandmother Hypertension Maternal Grandfather No Known Problems Paternal Grandmother No Known Problems Paternal Grandfather SOCIAL HISTORY Social History Tobacco Use Smoking status: Former Types: Cigarettes Passive exposure: Never Smokeless tobacco: Never Vaping Use Vaping status: Former Substances: Nicotine Substance Use Topics Alcohol use: Not Currently Drug use: No REVIEW OF SYSTEMS Abdomen: No abdominal pain, nausea, vomiting, diarrhea, or constipation. No bloating, early satiety, indigestion, or increased flatulence. Bladder: No dysuria, gross hematuria, urinary frequency, urinary urgency, or incontinence. Breast: No breast lumps, nipple d/c, overlying skin changes, redness or skin retraction. Allergies and current medication updated:Yes SENSITIVE EXAM: The sensitive examination was discussed with the Patient or Patient's Authorized Annual Giving Officer. As applicable, any other physician, advance practice provider, medical student, or other health professional student that will be observing or involved in the sensitive examination for educational or training purposes was discussed with the Patient or Authorized Annual Giving Officer. The Patient or Authorized Annual Giving Officer has agreed to proceed with the sensitive examination. (Sensitive examination includes inspection and/or palpation of the breasts, pelvis, prostate and anorectal regions). EXAM: BP 100/64 Ht 5' 8 (1.73m) Wt 178 lb (80.7kg) LMP 06/01/2024 BMI 27.07 kg/(m2). GENERAL: pleasant, female in no apparent distress HEENT: Normocephalic, atraumatic, mucus membranes moist, and no lesions NECK: Supple, full range of motion, no adenopathy, and thyroid normal DERMATOLOGY: Normal, without lesions, non-icteric, and non-hirsute BREAST: soft, non-tender, symmetric, no dominant mass, normal nipple-areolar complex, no lymphadenopathy, and no nipple discharge CHEST: Normal inspiratory effort ABDOMEN: soft, non-tender, and no masses PELVIC: external genitalia normal, normal Bartholin's glands, urethra, [place]'s glands, no vulvar lesions, no cervical lesions, good vaginal support, physiologic discharge present, normal appearing perineal body and perianal region BIMANUAL: uterus normal size, shape and consistency, no adnexal masses, and non-tender RECTOVAGINAL: rectovaginal exam negative for any masses or nodularity. NEURO: alert and oriented x3,exam grossly non-focal EXTREMITIES: normal ASSESSMENT/PLAN: 1) Health maintenance: PNV attempting 2) Contraception: none. Contraceptive options reviewed and information provided. 3) STD screening: Declined STD check. 4) Follow up one year or sooner as needed Joseph Ceballos MD Allergies As of Date: 06/29/2024 Noted Allergy Reaction POTATO 06/24/2016 2 - Rash 4 - Hives SEASONAL ALLERGIES 02/18/2018 3 - Cough (more content not included)... Normal [facility] UA DIP,URINE HCG (POC)on Beta HCG ( test) Ql (U) Negative Negative [facility] Comment on above: Location:[facility], [address], [place], [address] [employer] Machine Tender (POCT) Internal QC [facility] Location:[facility], [address], [place], [address] [facility] POINT OF CARE [facility] CNOVon 05-11-2024 CNOV Office Visit (OBGYWM ) MAGNOJASONALEJANDRA N ([id number]) 2 F Date Time Provider Department 05/11/24 10:30 AM JOSEPH CEBALLOS During your visit today, we recorded the following information about you: Blood pressure Weight 106/74 76.2 kg Joseph Ceballos MD 05/11/2024 10:51 AM Signed Inside Sales Advisor offered: Patient accepts, visit chaperoned by Erica Beverly. MA. Roberts presents for removal of IUD due to desire for . UNIVERSAL PROTOCOL / SAFETY CHECKLIST Procedure to be Performed: IUD Removal Sign In: A Moment of CARE was completed. Personnel directly involved with the procedure wore the appropriate PPE (Personal Protective Equipment). Patient/Surrogate Stated/Verified: PATIENT VERIFIED(optional for EMERGENT procedures): Patient name, Date of , Relevant allergies, and The intended procedure Time Out Communication: Intended patient and procedure match the source documents. Consent documented and matches the intended procedure. No relevant labs, photos, and/or imaging studies were applicable for review. No correct side/site applicable for marking and visibility. No medications required for procedure. No fire risk assessment and interventions applicable. No implant(s) inserted. Sign Out: SIGN OUT (optional for EMERGENT procedures): No instruments, equipment or retained foreign bodies applicable. Post-procedure follow-up management communicated and Plan of Care Visit completed when applicable. PROCEDURE: Speculum placed in vagina, IUD string visualized and grasped with ring forceps. ASSESSMENT/PLAN: IUD removed without difficulty, intact, and patient tolerated procedure well. Contraception plans: none Reviewed pre-conception guidelines including folic acid supplementation, optimal timing of intercourse, avoidance of smoking, alcohol, exposure to environmental chemicals and need for evaluation if not within 12 months. Joseph Ceballos MD Referring Provider: DELL ALONSO [[id number]] Allergies As of Date: 05/11/2024 Noted Allergy Reaction POTATO 06/24/2016 2 - Rash 4 - Hives SEASONAL ALLERGIES 02/18/2018 3 - Cough Comments: Seasonal allergies Date Reviewed: 05/11/2024 Reviewed by: Erica Beverly MA - Fully Assessed Reason for Visit: IUD Removal [1950] Primary Visit Diagnosis:Encounter for IUD removal [Z30.432] Order(s):REMOVE INTRAUTERINE DEVICE [3497988] Order #: [id number] UA DIP,URINE HCG (POC) [[id number]] Order #: [id number]. #:[id number] Prescriptions as of 05/11/2024 - cetirizine (ZYRTEC) 10 mg tablet Take 10 mg by mouth once daily. - lurasidone (LATUDA) 60 mg tablet Take 60 mg by mouth once daily. - levocetirizine 5 mg tablet Take 5 mg by mouth once daily. - cariprazine (VRAYLAR) 3 mg capsule Take by mouth once daily. - lamoTRIgine (LAMICTAL) 150 mg tablet Take 1 tablet by mouth every 12 (twelve) hours. - benztropine (COGENTIN) 0.5 mg tablet Take 1 tablet by mouth every 12 (twelve) hours. - levonorgestrel (LILETTA) 20.4 mcg/24 hrs (8 yrs) 52 mg IUD by INTRAUTERINE route. - FLUoxetine (PROZAC) 20 mg capsule Take 40 mg by mouth once daily. - FLUoxetine (PROZAC) 10 mg capsule Take 1 capsule (10 mg) by mouth daily + 1 capsule of 20mg daily (total 30mg) - BIOTIN ORAL Take by mouth. 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 Follow-up and Disposition History for Encounter Date Provider Department Center 05/11/2024 [id number] CEBALLOSRAYSHAWN Tucker [facility] Encounter Status:Closed by JOSEPH CEBALLOS on 05/11/24 [facility] UA DIP,URINE HCG (POC)on Beta HCG ( test) Ql (U) Negative Negative [facility] Comment on above: Location:[facility], [facility] [address] [facility], [place], [address] Fiberg[employer] Bonding Machine Tender (POCT) Internal QC [place] [facility] Location:[facility], [facility] [address] [facility], [place], [address] [facility] POINT OF CARE [facility] Tryptaseon 02-03-2024 TRYPTASE 4.0 ug/L Normal 2.2-13.2 [facility] Comment on above: Result Comment: Perf ormed at: - [facility] [id number] T[employer] Trimmer Hand: Nidhi Armando MD, Phone: [phone] Performed By: #### L 501.0900, L500.4050, L100.0100 #### [facility] [address] [place], [place], [address] CBC W/Diff, Automatedon 12-31 Absolute Lymph 1.69 X10 3/uL Normal 0.83-4.51 [facility] Comment on above: Performed By: #### L 3400.5105, L501.0100, L501.9520, L501.1105, L500.3400, L100.0100, L506.1000 ####[facility] [address] [place], [address] Absolute Neut 4.2 X10 3/uL Normal 2.0-7.7 [facility] Comment on above: Performed By: #### L 3400.5105, L501.0100, L501.9520, L501.1105, L500.3400, L100.0100, L506.1000 ####[facility] [address] [place], [address] Basophils/100 WBC (Bld) 0.5 % Normal 0-1 [facility] Comment on above: Performed By: #### L 3400.5105, L501.0100, L501.9520, L501.1105, L500.3400, L100.0100, L506.1000 ####[facility] [address] [place], [address] Eosinophils/100 WBC (Bld) 1.2 % Normal 0-5 [facility] Comment on above: Performed By: #### L 3400.5105, L501.0100, L501.9520, L501.1105, L500.3400, L100.0100, L506.1000 ####[facility] [address] [place], [address] Erythrocyte distribution width (RBC) [Ratio] 15.8 % High 11.6-14.6 [facility] Comment on above: Performed By: #### L 3400.5105, L501.0100, L501.9520, L501.1105, L500.3400, L100.0100, L506.1000 ####[facility] [address] [place], [address] Hematocrit (Bld) [Volume fraction] 39.4 % Normal 37-47 [facility] Comment on above: Performed By: #### L 3400.5105, L501.0100, L501.9520, L501.1105, L500.3400, L100.0100, L506.1000 ####[facility] [address] [place], [address] Hemoglobin (Bld) [Mass/Vol] 12.5 g/dL Normal 12.0-15.0 [facility] Comment on above: Performed By: #### L 3400.5105, L501.0100, L501.9520, L501.1105, L500.3400, L100.0100, L506.1000 ####[facility] [address] [place], [address] IG% 0.500 Normal 0.0-0.9 [facility] Comment on above: Result Comment: IG% - Immature Granulocytes (promyelocytes, myelocytes and metamyelocytes) > 1% indicates that a LEFT SHIFT is Present. Performed By: #### L 3400.5105, L501.0100, L501.9520, L501.1105, L500.3400, L100.0100, L506.1000 ####[facility] [address] [place], [address] Lymphocytes/100 WBC (Bld) 25.9 % Normal 19-41 [facility] Comment on above: Performed By: #### L 3400.5105, L501.0100, L501.9520, L501.1105, L500.3400, L100.0100, L506.1000 ####[facility] [address] [place], [address] MCH (RBC) [Entitic mass] 26.5 pg Low 27.0-32.0 [facility] Comment on above: Performed By: #### L 3400.5105, L501.0100, L501.9520, L501.1105, L500.3400, L100.0100, L506.1000 ####[facility] [address] [place], [address] MCHC (RBC) [Mass/Vol] 31.7 g/dL Low 32-36 [facility] Comment on above: Performed By: #### L 3400.5105, L501.0100, L501.9520, L501.1105, L500.3400, L100.0100, L506.1000 ####[facility] [address] [place], [address] MCV (RBC) [Entitic vol] 83.5 fL Normal 81-99 [facility] Comment on above: Performed By: #### L 3400.5105, L501.0100, L501.9520, L501.1105, L500.3400, L100.0100, L506.1000 ####[facility] [address] [place], [address] Monocytes/100 WBC (Bld) 7.7 % Normal 0-10 [facility] Comment on above: Performed By: #### L 3400.5105, L501.0100, L501.9520, L501.1105, L500.3400, L100.0100, L506.1000 ####[facility] [address] [place], [address] Neutrophils/100 WBC (Bld) 64.2 % Normal 47-70 [facility] Comment on above: Performed By: #### L 3400.5105, L501.0100, L501.9520, L501.1105, L500.3400, L100.0100, L506.1000 ####[facility] [address] [place], [address] Nucleated RBC (Bld) [#/Vol] 0 10*3/uL Normal 0-5 [facility] Comment on above: Performed By: #### L 3400.5105, L501.0100, L501.9520, L501.1105, L500.3400, L100.0100, L506.1000 ####[facility] [address] [place], [address] Platelet mean volume (Bld) [Entitic vol] 10.1 fL Normal 6.2-12.0 [facility] Comment on above: Performed By: #### L 3400.5105, L501.0100, L501.9520, L501.1105, L500.3400, L100.0100, L506.1000 ####[facility] [address] [place], [address] Platelets (Bld) [#/Vol] 294 10*3/uL Normal 150-450 [facility] Comment on above: Performed By: #### L 3400.5105, L501.0100, L501.9520, L501.1105, L500.3400, L100.0100, L506.1000 ####[facility] [address] [place], [address] RBC (Bld) [#/Vol] 4.72 10*6/uL Normal 4.2-5.4 [facility] Comment on above: Performed By: #### L 3400.5105, L501.0100, L501.9520, L501.1105, L500.3400, L100.0100, L506.1000 ####[facility] [address] [place], [address] RDW SD 47.6 fl High 35.1-43.9 [facility] Comment on above: Performed By: #### L 3400.5105, L501.0100, L501.9520, L501.1105, L500.3400, L100.0100, L506.1000 ####[facility] [address] [place], [address] WBC (Bld) [#/Vol] 6.5 10*3/uL Normal 4.4-11.0 [facility] Comment on above: Performed By: #### L 3400.5105, L501.0100, L501.9520, L501.1105, L500.3400, L100.0100, L506.1000 ####[facility] [address] [place], [address] Glucoseon 01-28-2024 Glucose [Mass/Vol] 83 mg/dL Normal 74-106 [facility] Comment on above: Order Comment: TSH Performed By: #### L 3400.5105, L501.0100, L501.9520, L501.1105, L500.3400, L100.0100, L506.1000 ####[facility] [address] [place], [address] Liver Profileon 01-28-2024 Albumin [Mass/Vol] 3.9 g/dL Normal 3.2-5.0 [facility] Comment on above: Order Comment: TSH Performed By: #### L 3400.5105, L501.0100, L501.9520, L501.1105, L500.3400, L100.0100, L506.1000 ####[facility] [address] [place], [address] ALK P 99 U/L Normal 45-117 [facility] Comment on above: Order Comment: TSH Performed By: #### L 3400.5105, L501.0100, L501.9520, L501.1105, L500.3400, L100.0100, L506.1000 ####[facility] [address] [place], [address] ALT [Catalytic activity/Vol] 15 U/L Normal 13-56 [facility] Comment on above: Order Comment: TSH Performed By: #### L 3400.5105, L501.0100, L501.9520, L501.1105, L500.3400, L100.0100, L506.1000 ####[facility] [address] [place], [address] AST [Catalytic activity/Vol] 14 U/L Low 15-37 [facility] Comment on above: Order Comment: TSH Performed By: #### L 3400.5105, L501.0100, L501.9520, L501.1105, L500.3400, L100.0100, L506.1000 ####[facility] [address] [place], [place], [id number] Bilirubin [Mass/Vol] 0.40 mg/dL Normal 0.20-1.00 [facility] Comment on above: Order Comment: TSH Result Comment: For patients on eltrombopag therapy, use of Dimension [place] TBIL is not recommended. Performed By: #### L 3400.5105, L501.0100, L501.9520, L501.1105, L500.3400, L100.0100, L506.1000 ####[facility] [address] [place], [address] Bilirubin.direct [Mass/Vol] 0.10 mg/dL Normal 0.00-0.30 [facility] Comment on above: Order Comment: TSH Performed By: #### L 3400.5105, L501.0100, L501.9520, L501.1105, L500.3400, L100.0100, L506.1000 ####[facility] [address] [place], [address](125) Globulin (S) [Mass/Vol] 3.7 g/dL Normal 2.2-4.2 [facility] Comment on above: Order Comment: TSH Performed By: #### L 3400.5105, L501.0100, L501.9520, L501.1105, L500.3400, L100.0100, L506.1000 ####[facility] [address] [place], [address] T PROT 7.6 g/dL Normal 6.4-8.2 [facility] Comment on above: Order Comment: TSH Performed By: #### L 3400.5105, L501.0100, L501.9520, L501.1105, L500.3400, L100.0100, L506.1000 ####[facility] [address] [place], [place], [id number] Serum Creatinine AND GFRon 0 01-28-2024 Creatinine [Mass/Vol] 0.69 mg/dL Normal 0.55-1.02 [facility] Comment on above: Order Comment: TSH Result Comment: The validity of the calculated GFR GFRAA in patients over 70 years has not been determined. Clinical correlation is essential. Performed By: #### L 3400.5105, L501.0100, L501.9520, L501.1105, L500.3400, L100.0100, L506.1000 ####[facility] [address] [place], [address] EST GFR - AA 137 mL/min Normal >60 [facility] Comment on above: Order Comment: TSH Result Comment: Afri can Citizen [place] GFR Calc Performed By: #### L 3400.5105, L501.0100, L501.9520, L501.1105, L500.3400, L100.0100, L506.1000 ####[facility] [address] [place], [place], [id number] GFR/1.73 sq M.predicted among non-blacks MDRD (S/P/Bld) [Vol rate/Area] 113 mL/min/{1.73_m2} Normal >60 [facility] Comment on above: Order Comment: TSH Result Comment: Non- GFR Calc Performed By: #### L 3400.5105, L501.0100, L501.9520, L501.1105, L500.3400, L100.0100, L506.1000 ####[facility] [address] [place], [address] Thyroid Stim Hormone (TSH)on 01-28-2024 TSH 0.736 uIU/mL Normal 0.358-3.740 [facility] Comment on above: Order Comment: TSH Performed By: #### L 3400.5105, L501.0100, L501.9520, L501.1105, L500.3400, L100.0100, L506.1000 ####[facility] [address] [place], [address] Vitamin D,25 Hydroxyon 01-27 Vitamin D 25-OH 23.9 ng/mL Normal [facility] Comment on above: Result Comment: Sofia min D 25(OH) Status Range Deficiency <20 ng/mL (50nmol/L) Insufficiency 20 - 30 ng/mL (50 - 75 nmol/L) Sufficiency 30 - 100 ng/mL (75 - 250 nmol/L) Toxicity >100 ng/mL (>250 nmol/L) Performed By: #### L 3400.5105, L501.0100, L501.9520, L501.1105, L500.3400, L100.0100, L506.1000 ####[facility] [address] [place], [place], [address] [facility] 01-18-2024 CNPN Telephone (OBGYWM) ALEJANDRA KIRAN ([id number]) 2 F Date Time Provider Department 01/18/24 JOSEPH CEBALLOS OBRAYSHAWN During your visit today, we recorded the following information about you: Linda Martino 01/18/2024 2:16 PM Signed Patient is calling requesting to have IUD Liletta removed and would like this with Ayo Ceballos. Please advise patient once order is placed Julia Chapa RN 01/18/2024 2:26 PM Signed Please file order in AT absence. Will call Pt to get scheduled once order is filed. ULISES Gao Sara, MD 01/18/2024 3:23 PM Signed filed Hellen Campoverde RN 01/18/2024 3:55 PM Signed Patient called and appointment scheduled. Hellen Campoverde RN Allergies As of Date: 01/18/2024 Noted Allergy Reaction POTATO 06/24/2016 2 - Rash 4 - Hives SEASONAL ALLERGIES 02/18/2018 3 - Cough Comments: Seasonal allergies Date Reviewed: 11/25/2023 Reviewed by: Maria Elena Parra MA - Fully Assessed Reason for Visit: Orders [681] Primary Visit Diagnosis:Encounter for IUD removal [Z30.432] Order(s):REMOVE INTRAUTERINE DEVICE [[id number]] Order #: [id number] Prescriptions as of 01/18/2024 - cariprazine (VRAYLAR) 3 mg capsule Take by mouth once daily. - lamoTRIgine (LAMICTAL) 150 mg tablet Take 1 tablet by mouth every 12 (twelve) hours. - benztropine (COGENTIN) 0.5 mg tablet Take 1 tablet by mouth every 12 (twelve) hours. - levonorgestrel (LILETTA) 20.4 mcg/24 hrs (8 yrs) 52 mg IUD by INTRAUTERINE route. - FLUoxetine (PROZAC) 20 mg capsule Take 1 capsule (20 mg) by mouth daily + 1 capsule of 10mg daily (total 30mg pills) - FLUoxetine (PROZAC) 10 mg capsule Take 1 capsule (10 mg) by mouth daily + 1 capsule of 20mg daily (total 30mg) - BIOTIN ORAL Take by mouth. 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 Diagnosed: 06/08/2023 MDD (major depressive disorder), recurrent epis*06/11/2020 Diagnosed: 06/08/2023 Encounter Status:Closed by HELLEN CAMPOVERDE on 01/18/24 [facility] CNOVon 11-25-2023 CNOV Office Visit (OBGYWM ) ALEJANDRA KIRAN ([id number]) 2 F Date Time Provider Department 11/25/23 8:00 AM JOSEPH CEBALLOS OBGYWM During your visit today, we recorded the following information about you: Blood pressure Weight 100/60 75.3 kg Joseph Ceballos MD 11/25/2023 9:37 AM Signed Alejandra Cordoba Magno is a 23 year old female who presents for problem visit wishing to discuss fertility related to her progestin IUD, Liletta and parental hx of IVF. Reports irregular menses related to anorexia [id number] now resolved and IUD place 2020. Menarche ~ 13 yo and regular until weight loss to 106. Now 160, 5'8. Monthly/cyclic discharge on underwear.. HPI: as above and planning in ~ 12 mo, always feels cold OB History T0 L0 SAB0 IAB0 Ectopic0 Multiple0 Live Births0 Floor Sweeper History LMP: 01/15/2023 (Exact Date), IUD Age at Menarche: Age at First : Age at Menopause: Floor Sweeper History Comments: Sexual Activity: Yes; Male Contraception: I.U.D. PAST MEDICAL HISTORY Diagnosis Date Anorexia nervosa Anxiety Bipolar 1 disorder (HCC) Depression Scoliosis TOS (thoracic outlet syndrome) bilateral Urticaria PAST SURGICAL HISTORY Procedure Laterality Date EXCISION FIRST AND/OR CERVICAL RIB Right 2015 EXTRACTION ERUPTED TOOTH/EXR SHOULDER SURGERY HX Right 2016 SHOULDER SURGERY HX Left 2020 x2 FAMILY HISTORY Problem Relation Age of Onset other (ovarian cysts) Mother 45 oopherectomy No Known Problems Father Heart Brother 21 Diabetes Maternal Grandmother Hypertension Maternal Grandfather No Known Problems Paternal Grandmother No Known Problems Paternal Grandfather Social History Tobacco Use Smoking status: Former Types: Cigarettes Passive exposure: Never Smokeless tobacco: Never Vaping Use Vaping Use: Former Substances: Nicotine Substance Use Topics Alcohol use: Yes Drug use: No Current Outpatient Medications Medication Sig cariprazine (VRAYLAR) 3 mg capsule Take by mouth once daily. lamoTRIgine (LAMICTAL) 150 mg tablet Take 1 tablet by mouth every 12 (twelve) hours. benztropine (COGENTIN) 0.5 mg tablet Take 1 tablet by mouth every 12 (twelve) hours. levonorgestrel (LILETTA) 20.4 mcg/24 hrs (8 yrs) 52 mg IUD by INTRAUTERINE route. FLUoxetine (PROZAC) 20 mg capsule Take 1 capsule (20 mg) by mouth daily + 1 capsule of 10mg daily (total 30mg pills) FLUoxetine (PROZAC) 10 mg capsule Take 1 capsule (10 mg) by mouth daily + 1 capsule of 20mg daily (total 30mg) BIOTIN ORAL Take by mouth. No current facility-administered medications for this visit. Allergies As of Date: 11/25/2023 Allergen Noted Reaction POTATO 06/24/2016 Rash and Hives SEASONAL ALLERGIES 02/18/2018 Cough Fully Assessed 06/08/2023 REVIEW OF SYSTEMS Abdomen: No bloating, early satiety, indigestion, or increased flatulence. No abdominal pain, nausea, vomiting, diarrhea, or constipation. Bladder: No dysuria, gross hematuria, urinary frequency, urinary urgency, or incontinence. Breast: No breast lumps, nipple d/c, overlying skin changes, redness or skin retraction. Expanded ROS: N/A Allergies and current medication updated:Yes EXAM: LMP 01/15/2023 GENERAL: pleasant, female in no apparent distress HEENT: Normocephalic, atraumatic, mucus membranes moist, and no lesions NECK: Supple, full range of motion, no adenopathy, and thyroid normal DERMATOLOGY: Normal, without lesions, non-icteric, and non-hirsute BREAST: soft, non-tender, symmetric, no dominant mass, normal nipple-areolar complex, no lymphadenopathy, and no nipple discharge CHEST: Normal inspiratory effort ABDOMEN: soft, non-tender, and no masses PELVIC: external genitalia normal, normal Bartholin's glands, urethra, [place]'s glands, no vulvar lesions, no cervical lesions, good vaginal support, physiologic discharge present, normal appearing perineal body and perianal region BIMANUAL: uterus normal size, shape and consistency, no adnexal masses, and non-tender NEURO: alert and oriented x3,exam grossly non-focal EXTREMITIES: normal ASSESSMENT AND PLAN: 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 TSH Prepregnacy discussion, start PNVs Lengthy conversation >45 min MD Siria Pineda Amanda, MA 11/25/2023 9:37 AM Signed . Allergies As of Date: 11/25/2023 Noted Allergy Reaction POTATO 06/24/2016 2 - Rash 4 - Hives SEASONAL ALLERGIES 02/18/2018 3 - Cough Comments: Seasonal allergies Date Reviewed: 11/25/2023 Reviewed by: Maria Elena Parra MA - Fully Assessed Reason for Visit: Discussion [813] Primary Visit Diagnosis:Irregular menses [N92.6] Other Visit Diagnosis:Intolerance to cold [R68.89] Order(s):THYROID STIMULATING HORMONE [SQTSH] Order #: [id number] FUTURE Prescriptions as of 11/25/2023 - cariprazine (VRAYL (more content not included)... Normal [facility] TSH SerPl-aCncon 11-25-2023 TSH Qn 0.989 m[IU]/L Normal 0.270-4.200 [facility] Comment on above: Order Comment: Speci men Type: BLOOD SPECIMENOrdering Facility: [facility] Address: [facility] [place] [address] Result Comment: If t he patient is , TSH reference range varies by gestational period: First Trimester (weeks 9-12): 0.180-2.990 mIU/L Second Trimester: 0.110-3.980 mIU/L Third Trimester: 0.480-4.710 mIU/L Xander Walker et al. A Practical Approach for the Verifications and Determination of Site- and Trimester-Specific Reference Intervals for Thyroid Function tests in . Thyroid, 2019:29:3:412-420. Milind E, et al. 2017 Guidelines of the [place] Thyroid Association for the Diagnosis and Management of Thyroid Disease during and the . Thyroid, 2017:27:3:315-389. Performed By: #### 3 016-3 ####[facility] LABCLIA [id number] [place] [address] [place] Basic Metabolic Panelon 01-0 6-2021 Anion gap [Moles/Vol] 8 Normal [facility] Comment on above: Performed By: #### B MP3, HGHCT, TROPI ####[address] [address] Calcium [Mass/Vol] 9.3 mg/dL Normal 8.4-10.4 [facility] Comment on above: Performed By: #### B MP3, HGHCT, TROPI ####[address] [address] Chloride [Moles/Vol] 99 mmol/L Normal 98-107 [facility] Comment on above: Performed By: #### B MP3, HGHCT, TROPI ####[address] [address] CO2 [Moles/Vol] 28 mmol/L Normal 22-30 [facility] Comment on above: Performed By: #### B MP3, HGHCT, TROPI ####[address] [address] Creatinine [Mass/Vol] 0.69 mg/dL Normal 0.52-1.25 [facility] Comment on above: Performed By: #### B MP3, HGHCT, TROPI ####[address] [address] GFR/1.73 sq M predicted among blacks MDRD (S/P/Bld) [Vol rate/Area] mL/min/{1.73_m2} Normal >60 [facility] Comment on above: Performed By: #### B MP3, HGHCT, TROPI ####[address] [address] GFR/1.73 sq M predicted among non-blacks MDRD (S/P/Bld) [Vol rate/Area] mL/min/{1.73_m2} Normal >60 [facility] Comment on above: Result Comment: KDIG O guidelines provide the following GFR categories: Stage GFR(ml/min/1.73 m2) Terms G1 >=90 Normal or high G2 60-89 Mildly decreased* G3a 45-59 Mildly to moderately decreased G3b 30-44 Moderately to severely decreased G4 15-29 Severely decreased G5 <15 Kidney failure *Relative to young adult level. In the absence of evidence of kidney damage, neither GFR category G1 nor G2 fulfill the criteria for CKD. The CKD-EPI equation is validated in individuals 18 years of age and older. Currently the best equation for estimating glomerular filtration rate (GFR) from serum creatinine in children is the Bedside Mcdaniels equation. It is less accurate in patients with extremes of muscle mass, restriction of dietary protein, ingestion of creatine, extra-renal metabolism of creatinine, or treatment with medications that affect renal tubular creatinine secretion. Performed By: #### B MP3, HGHCT, TROPI ####[address] [address] Glucose [Mass/Vol] 104 mg/dL High 70-100 [facility] Comment on above: Performed By: #### B MP3, HGHCT, TROPI ####[address] [address] Potassium [Moles/Vol] 3.5 mmol/L Normal 3.5-5.1 [facility] Comment on above: Performed By: #### B MP3, HGHCT, TROPI ####[address] [address] Sodium [Moles/Vol] 135 mmol/L Normal 135-145 [facility] Comment on above: Performed By: #### B MP3, HGHCT, TROPI ####[address] [address] Urea nitrogen [Mass/Vol] 11 mg/dL Normal 7-20 [facility] Comment on above: Performed By: #### B MP3, HGHCT, TROPI ####[address] [address] Anion gap [Moles/Vol] 8 mmol/L [place] Calcium [Mass/Vol] 9.3 mg/dL 8.4 - 10.4 mg/dL [place] Chloride [Moles/Vol] 99 mmol/L 98 - 107 mmol/L [place] CO2 [Moles/Vol] 28 mmol/L 22 - 30 mmol/L [place] Creatinine [Mass/Vol] 0.69 mg/dL 0.52 - 1.25 mg/dL [place] EGFR IF NonAfrican [place] >90.0 >60 mL/min [place] Comment on above: KDIGO guidelines pro vide the following GFR categories: Stage GFR(ml/min/1.73 m2) Terms G1 >=90 Normal or high G2 60-89 Mildly decreased* G3a 45-59 Mildly to moderately decreased G3b 30-44 Moderately to severely decreased G4 15-29 Severely decreased G5 <15 Kidney failure *Relative to young adult level. In the absence of evidence of kidney damage, neither GFR category G1 nor G2 fulfill the criteria for CKD. The CKD-EPI equation is validated in individuals 18 years of age and older. Currently the best equation for estimating glomerular filtration rate (GFR) from serum creatinine in children is the Bedside Mcdaniels equation. It is less accurate in patients with extremes of muscle mass, restriction of dietary protein, ingestion of creatine, extra-renal metabolism of creatinine, or treatment with medications that affect renal tubular creatinine secretion. GFR/1.73 sq M predicted among blacks MDRD (S/P/Bld) [Vol rate/Area] mL/min/{1.73_m2} >60 mL/min [place] Glucose [Mass/Vol] 104 mg/dL High 70 - 100 mg/dL [place], [place] Potassium [Moles/Vol] 3.5 mmol/L 3.5 - 5.1 mmol/L [place] Sodium [Moles/Vol] 135 mmol/L 135 - 145 mmol/L [place] Urea nitrogen [Mass/Vol] 11 mg/dL 7 - 20 mg/dL [place] Test Performed by [facility], [address] [place] [address] COVID-19on 06-06-2020 SARS-CoV-2 Not Detected. Not Detected [place], [place] Comment on above: Not Detected. Method: Antigen detection by lateral flow. Results should not be the sole factor in determining infection status. Test Performed by [facility], [address] [place] [address] EKG 12 Leadon 06-06-2020 Bhupinder, [facility] Incoming Cardiology Results From [employer] - 06/06/2020 6:14 PM EST [employer] 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 Results may be 10%-15% lower than serum/plasma values. (CLIA ID [id number]) Performed By: #### B GLU #### [employer] [address] [place] [address] Hemoglobin AND Hematocriton 06-06-2020 Hematocrit (Bld) [Volume fraction] 34.6 % Low 35.0-47.0 [facility] Comment on above: Performed By: #### B MP3, HGHCT, TROPI ####[facility] [place] [address] Hemoglobin (Bld) [Mass/Vol] 11.5 g/dL Low 11.7-16.0 [facility] Comment on above: Performed By: #### B MP3, HGHCT, TROPI ####[address] [place] [address] Hemoglobin and Hematocrit, B loodon 06-06-2020 Hematocrit (Bld) [Volume fraction] 34.6 % Low 35 - 47 % [place] Hemoglobin (Bld) [Mass/Vol] 11.5 g/dL Low 11.7 - 16 g/dL [place] Test Performed by [facility], [address] [place] [address] [place] Lipid Panelon 06-06-2020 Cholesterol in HDL [Mass/Vol] 43 mg/dL Normal 40-60 [place] Comment on above: Performed By: #### L IPD2 #### [facility] [address] [place] [address] Cholesterol.total/Ch olesterol in HDL [Mass ratio] 4 Normal [facility] Comment on above: Result Comment: Ref Range: < 3 Low Risk for CHD 3-6 Mod Risk for CHD > 6 High Risk for CHD Performed By: #### L IPD2 #### [facility] [address] [place] [address] Protein [Mass/Vol] 105 mg/dL Abnormal <100 [facility] Comment on above: Performed By: #### L IPD2 #### [facility] [address] [place] [address] Cholesterol [Mass/Vol] 164 mg/dL Normal < 200 [place] Comment on above: Performed By: #### L IPD2 #### [facility] [address] [place] [address] Triglyceride [Mass/Vol] 80 mg/dL Normal <150 [place] Comment on above: Performed By: #### L IPD2 #### [facility] [address] [place] [address] Lipid panel - fastingon Cholesterol in LDL [Mass/Vol] 105 mg/dL Abnormal <100 [place] Cholesterol.total/Ch olesterol in HDL [Mass ratio] 4 {ratio} [place] Comment on above: Ref Range: < 3 Low Risk for CHD 3-6 Mod Risk for CHD > 6 High Risk for CHD Test Performed by [facility], [address] [place] [id number] [place] [address] Otheron 06-06-2020 Interpretation and review of laboratory results Abnormal [place] POCT troponinon 06-06-2020 Troponin I.cardiac [Mass/Vol] 0.00 ng/mL 0 - 0.08 ng/mL [place] Comment on above: . Test Performed by [id number] [place] [address] [id number] 06-06-2020 SARS-CoV-2 SARS-CoV-2 --> Status: F Not Detected. Method: Antigen detection by lateral flow. Results should not be the sole factor in determining infection status. Method: Antigen detection by lateral flow. Results should not be the sole factor in determining infection status. Normal [facility] Comment on above: Performed By: #### C OVID ####[facility] [place] [address] Troponin, ISTATon 06-06-2020 Troponin I.cardiac [Mass/Vol] 0.00 ng/mL Normal 0.00-0.08 [facility] Comment on above: Result Comment: . Performed By: #### B MP3, HGHCT, TROPI ####[address] [place] [address] POCT Glucoseon 06-05-2020 Glucose [Mass/Vol] 94 mg/dL 70 - 100 mg/dL [place], [place] Comment on above: Test performed by ucose meter. Results may be 10%-15% lower than serum/plasma values. (CLIA ID [id number]) Test Performed by [employer] [address] [place] [address] [place] [id number] 06-05-2020 SARS-CoV-2 SARS-CoV-2 --> Status: F Not Detected. Expected Result: Not Detected _ Real-time, RT-PCR performed on the Global [employer] System by the [facility]. Negative results do not preclude SARS-CoV-2 infection and should not be used as the sole basis for treatment or other patient management decisions. This assay was developed by [employer] and distributed under an Emergency Use Authorization (EUA) granted by the FDA for the qualitative detection of SARS-CoV-2 nucleic acid. Expected Result: Not Detected _ Real-time, RT-PCR performed on the Global [employer] System by the [employer] [facility]. Negative results do not preclude SARS-CoV-2 infection and should not be used as the sole basis for treatment or other patient management decisions. This assay was developed by [employer] and distributed under an Emergency Use Authorization (EUA) granted by the FDA for the qualitative detection of SARS-CoV-2 nucleic acid. Normal [facility] Comment on above: Performed By: #### C OVID ####[employer] [place], [place] hCG Qual Pregon 06-05-2020 hCG Qual Preg Negative Normal [facility] Comment on above: Result Comment: Refe rence Range: NEGATIVE Effective 08/12/2019, the reference interval for the qualitative test has been updated. This test detects hCG at concentrations of 10 mIU/L or greater in serum. Performed By: #### A CET4, SAL33, ETOH4, QWAL, HEMDF, CMP3 #### [employer] [address] [place] [address] ACETAMINOPHEN LEVELon 2020 Acetaminophen [Mass/Vol] <10.0 10 - 30 ug/mL [place] Acetaminophenon 06-04-2020 Acetaminophen [Mass/Vol] < 10.0 Normal 10.0-30.0 [facility] Comment on above: Performed By: #### A CET4, SAL33, ETOH4, QWAL, HEMDF, CMP3 #### [facility] [address], [place] Comp Metabolic Panelon 06-04 ALP [Catalytic activity/Vol] 87 U/L Normal 38-126 [facility] Comment on above: Performed By: #### A CET4, SAL33, ETOH4, QWAL, HEMDF, CMP3 #### [facility] [address], [place] ALT [Catalytic activity/Vol] 11 U/L Normal 0-34 [facility] Comment on above: Result Comment: The ALT test is performed by an updated assay method. Please note that the reference intervals have been changed and are now sex specific. Performed By: #### A CET4, SAL33, ETOH4, QWAL, HEMDF, CMP3 #### [address] [address] [place], [place] AST [Catalytic activity/Vol] 30 U/L Normal 15-46 [facility] Comment on above: Performed By: #### A CET4, SAL33, ETOH4, QWAL, HEMDF, CMP3 #### [address] [place], [place] Bilirubin [Mass/Vol] 0.4 mg/dL Normal 0.2-1.3 [facility] Comment on above: Performed By: #### A CET4, SAL33, ETOH4, QWAL, HEMDF, CMP3 #### [address] [address] [place], [place] Calcium [Mass/Vol] 10.0 mg/dL Normal 8.4-10.4 [facility] Comment on above: Performed By: #### A CET4, SAL33, ETOH4, QWAL, HEMDF, CMP3 #### [address] [place], [place] Glucose [Mass/Vol] 99 mg/dL Normal 70-100 [facility] Comment on above: Performed By: #### A CET4, SAL33, ETOH4, QWAL, HEMDF, CMP3 #### [address] [place], [place] Protein [Mass/Vol] 8.2 g/dL Normal 6.3-8.2 [facility] Comment on above: Performed By: #### A CET4, SAL33, ETOH4, QWAL, HEMDF, CMP3 #### [address] [place], [place] Urea nitrogen [Mass/Vol] 6 mg/dL Low 7-20 [facility] Comment on above: Performed By: #### A CET4, SAL33, ETOH4, QWAL, HEMDF, CMP3 #### [address] [place], [place] Anion gap [Moles/Vol] 11 Normal [facility] Comment on above: Performed By: #### A CET4, SAL33, ETOH4, QWAL, HEMDF, CMP3 #### [address] [address] [place], [place] CO2 [Moles/Vol] 24 mmol/L Normal 22-30 [facility] Comment on above: Performed By: #### A CET4, SAL33, ETOH4, QWAL, HEMDF, CMP3 #### [address] [address] [place], [place] Creatinine [Mass/Vol] 0.62 mg/dL Normal 0.52-1.25 [facility] Comment on above: Performed By: #### A CET4, SAL33, ETOH4, QWAL, HEMDF, CMP3 #### [address] [place], [place] GFR/1.73 sq M predicted among blacks MDRD (S/P/Bld) [Vol rate/Area] mL/min/{1.73_m2} Normal >60 [facility] Comment on above: Performed By: #### A CET4, SAL33, ETOH4, QWAL, HEMDF, CMP3 #### [address] [address] [place], [place] GFR/1.73 sq M predicted among non-blacks MDRD (S/P/Bld) [Vol rate/Area] mL/min/{1.73_m2} Normal >60 [facility] Comment on above: Result Comment: KDIG O guidelines provide the following GFR categories: Stage GFR(ml/min/1.73 m2) Terms G1 >=90 Normal or high G2 60-89 Mildly decreased* G3a 45-59 Mildly to moderately decreased G3b 30-44 Moderately to severely decreased G4 15-29 Severely decreased G5 <15 Kidney failure *Relative to young adult level. In the absence of evidence of kidney damage, neither GFR category G1 nor G2 fulfill the criteria for CKD. The CKD-EPI equation is validated in individuals 18 years of age and older. Currently the best equation for estimating glomerular filtration rate (GFR) from serum creatinine in children is the Bedside Mcdaniels equation. It is less accurate in patients with extremes of muscle mass, restriction of dietary protein, ingestion of creatine, extra-renal metabolism of creatinine, or treatment with medications that affect renal tubular creatinine secretion. Performed By: #### A CET4, SAL33, ETOH4, QWAL, HEMDF, CMP3 #### [address] Potassium [Moles/Vol] 3.6 mmol/L Normal 3.5-5.1 [facility] Comment on above: Performed By: #### A CET4, SAL33, ETOH4, QWAL, HEMDF, CMP3 #### [address] Sodium [Moles/Vol] 138 mmol/L Normal 135-145 [facility] Comment on above: Performed By: #### A CET4, SAL33, ETOH4, QWAL, HEMDF, CMP3 #### [address] Albumin [Mass/Vol] 4.8 g/dL Normal 3.5-5.0 [facility] Comment on above: Performed By: #### A CET4, SAL33, ETOH4, QWAL, HEMDF, CMP3 #### [address] Chloride [Moles/Vol] 103 mmol/L Normal 98-107 [facility] Comment on above: Performed By: #### A CET4, SAL33, ETOH4, QWAL, HEMDF, CMP3 #### [address] [place] [address] Comprehensive Metabolic Pane roverto 06-04-2020 Albumin [Mass/Vol] 4.8 g/dL 3.5 - 5 g/dL [place], [place] ALP [Catalytic activity/Vol] 87 U/L 38 - 126 U/L [place] ALT [Catalytic activity/Vol] 11 U/L 0 - 34 U/L [place] Comment on above: The ALT test is perf ormed by an updated assay method. Please note that the reference intervals have been changed and are now sex specific. Anion gap [Moles/Vol] 11 mmol/L [place] AST [Catalytic activity/Vol] 30 U/L 15 - 46 U/L [place] Bilirubin Ql (U) 0.4 mg/dL 0.2 - 1.3 mg/dL [place], [place] Calcium [Mass/Vol] 10.0 mg/dL 8.4 - 10.4 mg/dL [place] Chloride [Moles/Vol] 103 mmol/L 98 - 107 mmol/L [place] CO2 [Moles/Vol] 24 mmol/L 22 - 30 mmol/L [place] Creatinine [Mass/Vol] 0.62 mg/dL 0.52 - 1.25 mg/dL [place] EGFR IF NonAfrican [place] >90.0 >60 mL/min [place] Comment on above: KDIGO guidelines pro vide the following GFR categories: Stage GFR(ml/min/1.73 m2) Terms G1 >=90 Normal or high G2 60-89 Mildly decreased* G3a 45-59 Mildly to moderately decreased G3b 30-44 Moderately to severely decreased G4 15-29 Severely decreased G5 <15 Kidney failure *Relative to young adult level. In the absence of evidence of kidney damage, neither GFR category G1 nor G2 fulfill the criteria for CKD. The CKD-EPI equation is validated in individuals 18 years of age and older. Currently the best equation for estimating glomerular filtration rate (GFR) from serum creatinine in children is the Bedside Mcdaniels equation. It is less accurate in patients with extremes of muscle mass, restriction of dietary protein, ingestion of creatine, extra-renal metabolism of creatinine, or treatment with medications that affect renal tubular creatinine secretion. GFR/1.73 sq M predicted among blacks MDRD (S/P/Bld) [Vol rate/Area] mL/min/{1.73_m2} >60 mL/min [place] Glucose [Mass/Vol] 99 mg/dL 70 - 100 mg/dL [place], [place] Interpretation and review of laboratory results Abnormal [place] Potassium [Moles/Vol] 3.6 mmol/L 3.5 - 5.1 mmol/L [place] Protein [Mass/Vol] 8.2 g/dL 6.3 - 8.2 g/dL [place], [place] Sodium [Moles/Vol] 138 mmol/L 135 - 145 mmol/L [place], [place] Urea nitrogen [Mass/Vol] 6 mg/dL Low 7 - 20 mg/dL [place] Drugs of Abuseon 06-04-2020 Cocaine, Ur Negative Normal [facility] Comment on above: Performed By: #### D RGA4 ####[id number] [place] [address] Opiates, Ur Negative Normal [facility] Comment on above: Performed By: #### D RGA4 ####[id number] [place] [address] Phencyclidine (PCP), Ur Negative Normal [facility] Comment on above: Result Comment: The expected value for all of the drugs listed above is Negative. The following drugs or drug groups have been screened for by Immunoassay at the following thresholds: Amphetamine class (1000 ng/mL), Barbiturates (200 ng/mL), Benzodiazepines (200 ng/mL), Cocaine (300 ng/mL), Methadone (300 ng/mL), Opiates (300 ng/mL), Oxycodone (100 ng/mL), and PCP (25 ng/mL). NOTE: These results are for medical treatment only. Analysis performed using non-forensic procedures. POSITIVE results are NOT confirmed by a more specific alternative method unless requested. If confirmation is needed, request confirmation under separate order. Performed By: #### D RGA4 ####[id number] [place] [address] Methadone, Ur Negative Normal [facility] Comment on above: Performed By: #### D RGA4 ####[facility] [address] [facility] [address] Amphetamines, Ur Negative Normal [facility] Comment on above: Performed By: #### D RGA4 ####[facility] [address] [place] [address] Barbiturates, Ur Negative Normal [facility] Comment on above: Performed By: #### D RGA4 ####[facility] [address] [place] [address] Benzodiazepines, Ur Negative Normal [facility] Comment on above: Performed By: #### D RGA4 ####[facility] [address] [place] [address] Oxycodone/Oxymorphin e,Ur Negative Normal [facility] Comment on above: Performed By: #### D RGA4 ####[facility] [address] [place] [address] ED Provider Noteon ED Provider Note Emergency Department Encounter [facility] EM[facility]Y DE[facility] Patient: Alejandra Cedeno : 2000 Date of Evaluation: 06/04/2020 ED Provider: SELINA Nieves EDcare was supervised by Dr. Rose who independently examined and evaluated the patient. Please see their attestation note for further details. Chief Complaint Chief Complaint Patient presents with ? Suicidal Pt states she got a new doctor about 3 months ago and had all of her medication doses changed for depression and anxiety. Pt has had self harm and suicidal ideation thoughts the past month that have been worsening. Pt has been burning her arms and legs with her curling iron the past week and also took about 12 aspirin a week ago in attempt to harm herself. Pt is calm and cooperative and seeking help for her depression. Pt states she is scared she will hurt herself further. [place] (Location/Symptom, Timing/Onset, Context/Setting, Quality, Duration, Modifying Factors, Severity) Note limiting factors. Alejandra Cedeno is a 19 y.o. female who presents to the emergency department complaining of increased depression, suicidal ideation. Patient states that one week ago, she took too much aspirin, and ended up throwing it back up, but she says that she would take more pills to kill herself. Patient states that she has also been cutting herself, has a history of cutting herself, and is referred to burning herself as well with her curling iron. Patient states that her depression is getting worse, and she does not want to live anymore. Patient denies any fever, chills, cough, short of breath, nausea, vomiting. ROS: Review of Systems 14 systems reviewed and otherwise acutely negative except as in the [place]. Past History History reviewed. No pertinent past medical history. History reviewed. No pertinent surgical history. Social History Socioeconomic History ? Marital status: Single Spouse name: None ? Number of children: None ? Years of education: None ? Highest education level: None Occupational History ? None Social Needs ? Financial resource strain: None ? Food insecurity Worry: None Inability: None ? Transportation needs Medical: None Non-medical: None Tobacco Use ? Smoking status: Never Smoker ? Smokeless tobacco: Never Used Substance and Sexual Activity ? Alcohol use: Never Frequency: Never ? Drug use: Never ? Sexual activity: None Lifestyle ? Physical activity Days per week: None Minutes per session: None ? Stress: None Relationships ? Social connections Talks on phone: None Gets together: None Attends moravian service: None Active member of club or organization: None Attends meetings of clubs or organizations: None Relationship status: None ? Intimate partner violence Fear of current or ex partner: None Emotionally abused: None Physically abused: None Forced sexual activity: None Other Topics Concern ? None Social History Narrative ? None Medications/Allergies Previous Medications No medications on file No Known Allergies Physical Exam ED Triage Vitals BP Temp Temp Source Heart Rate Resp SpO2 Height Weight - Scale 06/04/20201606/04/20201606/04/20201606/04/20201606/04/20201606/04/20201606/04/20202306/04/202023 (!) 144/101 99.4 ?F (37.4 ?C) Temporal 89 16 97 % 5' 6 (1.676 m) 135 lb (61.2 kg) Physical Exam Constitutional: Appearance: Normal appearance. HENT: Head: Normocephalic and atraumatic. Mouth/Throat: Mouth: Mucous membranes are moist. Eyes: Extraocular Movements: Extraocular movements intact. Pupils: Pupils are equal, round, and reactive to light. Cardiovascular: Rate and Rhythm: Normal rate and regular rhythm. Pulmonary: Effort: Pulmonary effort is normal. No respiratory distress. Breath sounds: Normal breath sounds. No stridor. No wheezing, rhonchi or rales. Abdominal: General: There is no distension. Palpations: Abdomen is soft. There is no mass. Tenderness: There is no abdominal tenderness. There is no guarding. Hernia: No hernia is present. Skin: General: Skin is warm and dry. Capillary Refill: Capillary refill takes less than 2 seconds. Neurological: General: No focal deficit present. Mental Status: She is alert and oriented to person, place, and time. Sensory: No sensory deficit. Motor: No weakness. Psychiatric: Mood and Affect: Mood is depressed. Speech: Speech normal. Behavior: Behavior is cooperative. Thought Content: Thought content includes suicidal ideation. Thought content does not include homicidal ideation. Thought content includes suicidal plan. Thought content does not include homicidal plan. SCREENINGS Diagnostics Labs: Results for orders placed or performed during the hospital encounter of 06/04/20 Comprehensive Metabolic Panel Result Value Ref Range Sodium 138 135 - 145 mmol/L Potassium 3.6 3.5 - 5.1 mmol/L Chloride 103 98 - 107 mmol/L CO2 24 22 - 30 mmol/L Anion Gap 11 NA Glucose 99 70 - 100 mg/dL BUN 6 (L) 7 - 20 mg/dL CREATININE 0.62 0.52 - 1.25 mg/dL eGFR >90.0 >60 mL/min EGFR IF NonAfrican Citizen Of [place] >90.0 >60 mL/min Calcium 10.0 8.4 - 10.4 mg/dL Albumin,Serum 4.8 3.5 - 5.0 g/dL Total Protein 8.2 6.3 - 8.2 g/dL Total Bilirubin 0.4 0.2 - 1.3 mg/dL Alkaline Phosphatase 87 38 - 126 U/L ALT 11 0 - 34 U/L AST 30 15 - 46 U/L Hemogram (CBC) w/Auto Diff Result Value Ref Range WBC 6.8 3.6 - 10.7 10*3/uL RBC 4.97 3.80 - 5.20 10*6/uL Hemoglobin 12.9 11.7 - 16.0 g/dL Hematocrit 40.0 35.0 - 47.0 % MCV 80.4 79.0 - 98.0 fL MCH 25.9 (L) 26.0 - 34.0 pg MCHC 32.2 32.0 - 36.0 % RDW 18.1 (H) 11.5 - 14.5 % Platelets 326 140 - 440 10*3/uL MPV 8.7 7.4 - 10.4 fL Granulocytes % 68.4 40.0 - 80.0 % Lymphocyte % 23.2 20.0 - 40.0 % Monocytes 7.2 2.0 - 10.0 % Eosinophils 0.5 (L) 1.0 - 6.0 % Basophils 0.7 0.0 - 2.0 % Absolute Neut # 4.6 1.8 - 7.0 10*3/uL Absolute Lymph # 1.6 1.0 - 4.3 10*3/uL Absolute [place] # 0.5 0.0 - 0.8 10*3/uL Absolute Eos # 0.0 0.0 - 0.5 10*3/uL Absolute Baso # 0.0 0.0 - 0.2 10*3/uL HCG Qualitative, Serum Result Value Ref Range hCG Qual NEGATIVE m[IU]/mL Urine Drug Screen Result Value Ref Range Amphetamines, urine Negative NA Barbiturates, Ur Negative NA Benzodiazepine Ur Qual Negative NA Cocaine Metabolites, Ur Negative NA Methadone, Urine Negative NA Opiates, Urine Negative NA Oxycodone Screen, Ur Negative NA PCP, Urine Negative NA Ethanol Result Value Ref Range Ethanol Lvl <0.010 0.000 - 0.010 g/dL ACETAMINOPHEN LEVEL Result Value Ref Range Acetaminophen Level <10.0 10.0 - 30.0 ug/mL Salicylate Result Value Ref Range Salicylate Lvl <1.0 0.0 - 20.0 mg/dL Radiographs: No results found. Procedures/EKG: EKG Per attending note if performed ED Course and MDM In brief, Alejandra Cedeno is a 19 y.o. female who presented to the emergency department with suicidal ideation and attempt. Vital signs are normal. I wore proper PPE during this entire encounter including surgical mask, N95 mask, goggles and gloves. Screening labs were obtained. Complete metabolic panel, complete blood count are benign. HCG negative. UDS is negative, ethanol negative acetaminophen, salicylate levels are undetectable. Electrocardiogram per attending note COVID-19 negative. Patient would benefit from inpatient psychiatric admission, patient was admitted to [facility] in stable condition. Patient is medically clear for psychiatric admission. ED Medication Orders (From admission, onward) Start Ordered Status Ordering Provider 06/04/20 2245 06/04/20 2236 Xbzqrwk-Nqkhwa-Wnwvy Pertussis (BOOSTRIX) injection 0.5 mL ONCE Last MAR action: Given - by DESIREE HARPER on 06/04/20 at 2247 SHARON CASTRO Final Impression 1. Depression with suicidal ideation 2. Suicide attempt (HCC) DISPOSITION Disposition: Admit to mental health unit - medically cleared for admission Patient condition is stable Comment: Please note this report has been produced using speech recognition software and may contain errors related to that system including errors in grammar, punctuation, and spelling, as well as words and phrases that may be inappropriate. If there are any questions or concerns please feel free to contact the dictating provider for clarification. SELINA Nieves [employer] SELINA Nieves 06/05/20 0007 [facility] ED Provider Note Emergency Department Encounter [facility] EMERG[facility] DE[facility] Patient: Alejandra Cedeno : 2000 Date of Evaluation: 06/04/2020 ED Supervising Physician: Giles Rose MD I independently examined and evaluated Alejandra Cedeno. In brief, Alejandra Cedeno is a 19 y.o. female PMH including including depression, presents with concern for suicidal ideation. Patient reports one month ago she burned her left arm with a curling iron, one week ago ingested aspirin, attempts to harm or self, she over the last several days had increasing thoughts of self-harm and suicidal ideation with no plan. Patient denies any ingestion or self-harm prior to arrival today, denies alcohol or other intoxicants substance use, denies any other symptoms including no fever chills, chest pain, abdominal pain. Focused exam: General: No apparent distress, nontoxic-appearing HEENT: airway patent, mucous membranes moist Cardiovascular: regular rhythm, normal rate Respiratory: non-labored breathing, breath sounds clear Gastrointestinal: soft, non-distended, non-tender Extremities: no obvious deformity, non edematous Skin: 2-3 cm healing erythematous burn wound on the left volar forearm without purulence or tenderness, otherwise no skin lesions on the arms or legs. Neurologic: alert, no obvious neurologic deficits psych: Tearful, depressed mood, flat affect, no active suicidal ideation EKG per my interpretation: Rate and rhythm: sinus rhythm, 66 bpm Center: within normal range Intervals: SC 122, QRS 88, QTc 430 Segments: no acute ischemic ST segment changes Impression: sinus rhythm, no acute ischemic changes or ectopy Brief ED course/MDM: Patient is an 19-year-old female, presents as above, with worsening depression, suicidal ideation. Left forearm burn wound is remote, healing, appears noninfected, will provide tetanus. Involuntary commitment placed. Patient denies ingestion or self harm today, no apparent intoxication. Workup initiated for medical clearance. EKG as above, reassuring intervals. Labs obtained, reviewed, notable for no significant electrolyte disturbance, no renal dysfunction, unremarkable LFTs, glucose within acceptable range, hCG negative, ethanol level negative, UDS negative, acetaminophen and salicylate levels negative, no leukocytosis, hemoglobin normal range, Covid 19 test negative. Arrangements made for psychiatric hospitalization, patient accepted by admitting psychiatrist. From my standpoint patient is medically cleared and stable for psychiatric admission. Diagnosis: Suicidal ideation Disposition: Psychiatric admission All diagnostic, treatment, and disposition decisions were made by myself in conjunction with the PSUHPA. For all further details of the patient's emergency department visit, please see their documentation. (Please note that portions of this note may have been completed with a voice recognition program. Efforts were made to edit the dictations but occasionally words are mis-transcribed.) Giles Rose MD [employer] Giles Rose MD 06/05/20 0343 Normal [facility] Ethanolon 06-04-2020 Ethanol Lvl <0.010 0 - 0.01 g/dL [facility] [place], [place] Comment on above: NOTE: This result is for medical treatment only. Analysis performed using non-forensic procedures. Ethanol Serum/Plasmaon 06-04 Ethanol-Serum/Plasma < 0.010 Normal 0.000-0.010 [facility] Comment on above: Result Comment: NOTE : This result is for medical treatment only. Analysis performed using non-forensic procedures. Performed By: #### A CET4, SAL33, ETOH4, QWAL, HEMDF, CMP3 #### [facility] [address] [place] [address] HCG Qualitative, Serumon hCG Qual Negative m[IU]/mL [place], [place] Comment on above: Reference Range: NEG ATIVE Effective 08/12/2019, the reference interval for the qualitative test has been updated. This test detects hCG at concentrations of 10 mIU/L or greater in serum. Test Performed by [facility], [address] [place] [id number] [place], [place] Hemogram (CBC) w/Auto Diffon 06-04-2020 Absolute Baso # 0.0 10*3/uL 0 - 0.2 10*3/uL [place], [place] Absolute Neut # 4.6 10*3/uL 1.8 - 7 10*3/uL [place], [place] Basophils/100 WBC (Bld) 0.7 % 0 - 2 % [place] Eosinophils (Bld) [#/Vol] 0.0 10*3/uL 0 - 0.5 10*3/uL [place] Eosinophils/100 WBC (Bld) 0.5 % Low 1 - 6 % [place] Erythrocyte distribution width (RBC) [Ratio] 18.1 % High 11.5 - 14.5 % [place] Granulocytes/100 WBC (Bld) 68.4 % 40 - 80 % [place] Hematocrit (Bld) [Volume fraction] 40.0 % 35 - 47 % [place] Hemoglobin (Bld) [Mass/Vol] 12.9 g/dL 11.7 - 16 g/dL [place] Interpretation and review of laboratory results Abnormal [place] Lymphocytes (Bld) [#/Vol] 1.6 10*3/uL 1 - 4.3 10*3/uL [place] Lymphocytes/100 WBC (Bld) 23.2 % 20 - 40 % [place] MCH (RBC) [Entitic mass] 25.9 pg Low 26 - 34 pg [place] MCHC (RBC) [Mass/Vol] 32.2 % 32 - 36 % [place] MCV (RBC) [Entitic vol] 80.4 fL 79 - 98 fL [place] Monocytes (Bld) [#/Vol] 0.5 10*3/uL 0 - 0.8 10*3/uL [place] Monocytes/100 WBC (Bld) 7.2 % 2 - 10 % [place] Platelet mean volume (Bld) [Entitic vol] 8.7 fL 7.4 - 10.4 fL [place], [place] Platelets (Bld) [#/Vol] 326 10*3/uL 140 - 440 10*3/uL [place] RBC (Bld) [#/Vol] 4.97 10*6/uL 3.8 - 5.2 10*6/uL [place] WBC (Bld) [#/Vol] 6.8 10*3/uL 3.6 - 10.7 10*3/uL [place] Test Performed by [facility], [address] [place] [id number] [place] [address] Hemogram w/ Autodiffon 06-04 Abs Baso Cnt 0.0 10*3/uL Normal 0.0-0.2 [facility] Comment on above: Performed By: #### A CET4, SAL33, ETOH4, QWAL, HEMDF, CMP3 #### [address] [address] Abs Neutrophile Cnt 4.6 10*3/uL Normal 1.8-7.0 [facility] Comment on above: Performed By: #### A CET4, SAL33, ETOH4, QWAL, HEMDF, CMP3 #### [address] [address] Basophils/100 WBC (Bld) 0.7 % Normal 0.0-2.0 [facility] Comment on above: Performed By: #### A CET4, SAL33, ETOH4, QWAL, HEMDF, CMP3 #### [address] [place], [place] Eosinophils (Bld) [#/Vol] 0.0 10*3/uL Normal 0.0-0.5 [facility] Comment on above: Performed By: #### A CET4, SAL33, ETOH4, QWAL, HEMDF, CMP3 #### [address] [address] [place], [place] Eosinophils/100 WBC (Bld) 0.5 % Low 1.0-6.0 [facility] Comment on above: Performed By: #### A CET4, SAL33, ETOH4, QWAL, HEMDF, CMP3 #### [address] Erythrocyte distribution width (RBC) [Ratio] 18.1 % High 11.5-14.5 [facility] Comment on above: Performed By: #### A CET4, SAL33, ETOH4, QWAL, HEMDF, CMP3 #### [address] Granulocytes/100 WBC (Bld) 68.4 % Normal 40.0-80.0 [facility] Comment on above: Performed By: #### A CET4, SAL33, ETOH4, QWAL, HEMDF, CMP3 #### [address] Hematocrit (Bld) [Volume fraction] 40.0 % Normal 35.0-47.0 [facility] Comment on above: Performed By: #### A CET4, SAL33, ETOH4, QWAL, HEMDF, CMP3 #### [address] [address] [place], [place] Hemoglobin (Bld) [Mass/Vol] 12.9 g/dL Normal 11.7-16.0 [facility] Comment on above: Performed By: #### A CET4, SAL33, ETOH4, QWAL, HEMDF, CMP3 #### [address] Lymphocytes (Bld) [#/Vol] 1.6 10*3/uL Normal 1.0-4.3 [facility] Comment on above: Performed By: #### A CET4, SAL33, ETOH4, QWAL, HEMDF, CMP3 #### [address] Lymphocytes/100 WBC (Bld) 23.2 % Normal 20.0-40.0 [facility] Comment on above: Performed By: #### A CET4, SAL33, ETOH4, QWAL, HEMDF, CMP3 #### [address] MCH (RBC) [Entitic mass] 25.9 pg Low 26.0-34.0 [facility] Comment on above: Performed By: #### A CET4, SAL33, ETOH4, QWAL, HEMDF, CMP3 #### [address] MCHC (RBC) [Mass/Vol] 32.2 % Normal 32.0-36.0 [facility] Comment on above: Performed By: #### A CET4, SAL33, ETOH4, QWAL, HEMDF, CMP3 #### [address] MCV (RBC) [Entitic vol] 80.4 fL Normal 79.0-98.0 [facility] Comment on above: Performed By: #### A CET4, SAL33, ETOH4, QWAL, HEMDF, CMP3 #### [address] Monocytes (Bld) [#/Vol] 0.5 10*3/uL Normal 0.0-0.8 [facility] Comment on above: Performed By: #### A CET4, SAL33, ETOH4, QWAL, HEMDF, CMP3 #### [address] Monocytes/100 WBC (Bld) 7.2 % Normal 2.0-10.0 [facility] Comment on above: Performed By: #### A CET4, SAL33, ETOH4, QWAL, HEMDF, CMP3 #### [address] [place] [address] Platelet mean volume (Bld) [Entitic vol] 8.7 fL Normal 7.4-10.4 [facility] Comment on above: Performed By: #### A CET4, SAL33, ETOH4, QWAL, HEMDF, CMP3 #### [address] [place] [address] Platelets (Bld) [#/Vol] 326 10*3/uL Normal 140-440 [facility] Comment on above: Performed By: #### A CET4, SAL33, ETOH4, QWAL, HEMDF, CMP3 #### [address] [address] [place], [place] RBC (Bld) [#/Vol] 4.97 10*6/uL Normal 3.80-5.20 [facility] Comment on above: Performed By: #### A CET4, SAL33, ETOH4, QWAL, HEMDF, CMP3 #### [address] WBC (Bld) [#/Vol] 6.8 10*3/uL Normal 3.6-10.7 [facility] Comment on above: Performed By: #### A CET4, SAL33, ETOH4, QWAL, HEMDF, CMP3 #### [address] [address] Otheron 06-04-2020 Test Performed by [address] [address] [facility], [place] Salicylateon 06-04-2020 Salicylate Lvl <1.0 0 - 20 mg/dL [facility] [place], [place] Test Performed by [address] [address] [facility], [place] Salicylateson 06-04-2020 Salicylates < 1.0 Normal 0.0-20.0 [facility] Comment on above: Performed By: #### A CET4, SAL33, ETOH4, QWAL, HEMDF, CMP3 #### [address] [address] Urine Drug Screenon 06-04-19 21 Amphetamines, urine Negative [facility] [place], [place] Barbiturates, Ur Negative [facility] [place] [place] Benzodiazepine Ur Qual Negative [facility] [place] Cocaine Metabolites, Ur Negative [facility] [place] Methadone, Urine Negative [facility] [place] Opiates, Urine Negative [facility] [place], [place] Oxycodone Screen, Ur Negative [facility] [place] [place] [facility], [facility] Negative [facility] [place], [place] Comment on above: The expected value f or all of the drugs listed above is Negative. The following drugs or drug groups have been screened for by Immunoassay at the following thresholds: Amphetamine class (1000 ng/mL), Barbiturates (200 ng/mL), Benzodiazepines (200 ng/mL), Cocaine (300 ng/mL), Methadone (300 ng/mL), Opiates (300 ng/mL), Oxycodone (100 ng/mL), and PCP (25 ng/mL). NOTE: These results are for medical treatment only. Analysis performed using non-forensic procedures. POSITIVE results are NOT confirmed by a more specific alternative method unless requested. If confirmation is needed, request confirmation under separate order. Test Performed by [address] [address] [facility], [place] GI FLUORO CHEST SNIFF TESTon 03-19-2020 GI FLUORO CHEST SNIFF TEST * * *Final Report* * * DATE OF EXAM: Mar 19 2020 9:20AM MDX 5536 - GI FLUORO CHEST SNIFF TEST / PROCEDURE REASON: G54.0-TOS (thoracic outlet syndrome) * * * * Physician Interpretation * * * * TECHNIQUE: GI FLUORO CHEST SNIFF TEST COMPARISON: No prior study for comparison. TECHNIQUE: SNIFF TEST Was performed. Spot radiograph obtained during the course of the exam. CLINICAL INDICATION: TOS (thoracic outlet syndrome) Fluoroscopic Radiation Summary: Plane A, Air Kerma: 2.0 mGy Dose Area Product (DAP): 552.0 mGy*cm^2 Fluoro time: 0:17 min:sec IMAGE NUMBER: 1 RESULT: Normal diaphragmatic excursion is noted with inhalation and exhalation. No elevation of the left or right hemidiaphragm. IMPRESSION: 1. Normal diaphragmatic excursion. Supervisor Receiving And Processing: PSCLore Transcribe Date/Time: Mar 19 2020 9:24A Dictated by : LISA KRAUS MD This examination was interpreted and the report reviewed and electronically signed by: LISA KRAUS MD on Mar 19 2020 9:27AM EST [id number] N [facility] Vital Signs Date Time Vital Sign Value Performing Clinician Faci lity 08-11-2024 08:39-0400 Body height 172.7 cm Christianne Plotts TESTS SUPERINTENDENT.CNM Work Phone: [facility] 08-11-2024 08:39-0400 Body mass index (BMI) [Ratio] 27.37 kg/m2 Christianne Plotts TESTS SUPERINTENDENT.CNM Work Phone: [facility] 08-11-2024 08:39-0400 Body weight 81.65 kg Christianne Plotts TESTS SUPERINTENDENT.CNM Work Phone: [facility] 08-11-2024 08:39-0400 Diastolic blood pressure 72 mm[Hg] Christianne Plotts TESTS SUPERINTENDENT.CNM Work Phone: [facility] 08-11-2024 08:39-0400 Systolic blood pressure 110 mm[Hg] Christianne Plotts TESTS SUPERINTENDENT.CNM Work Phone: [facility] 06-29-2024 09:06-0500 Body height 172.7 cm Joseph Ceballos MD Work Phone: [facility] 06-29-2024 09:06-0500 Body mass index (BMI) [Ratio] 27.06 kg/m2 Joseph Ceballos MD Work Phone: [facility] 06-29-2024 09:06-0500 Body weight 80.74 kg Joseph Ceballos MD Work Phone: [facility] 06-29-2024 09:06-0500 Diastolic blood pressure 64 mm[Hg] Joseph Ceballos MD Work Phone: [facility] 06-29-2024 09:06-0500 Systolic blood pressure 100 mm[Hg] Joseph Ceballos MD Work Phone: [facility] 05-11-2024 10:17-0500 Body mass index (BMI) [Ratio] 26.51 kg/m2 Joseph Ceballos MD Work Phone: [facility] 05-11-2024 10:17-0500 Body weight 76.2 kg Joseph Ceballos MD Work Phone: [facility] 05-11-2024 10:17-0500 Diastolic blood pressure 74 mm[Hg] Joseph Ceballos MD Work Phone: [facility] 05-11-2024 10:17-0500 Systolic blood pressure 106 mm[Hg] Joseph Ceballos MD Work Phone: [facility] 11-25-2023 08:05-0400 Body mass index (BMI) [Ratio] 26.19 kg/m2 Joseph Ceballos MD Work Phone: [facility] 11-25-2023 08:05-0400 Body weight 75.3 kg Joseph Ceballos MD Work Phone: [facility] 11-25-2023 08:05-0400 Diastolic blood pressure 60 mm[Hg] Joseph Ceballos MD Work Phone: [facility] 11-25-2023 08:05-0400 Systolic blood pressure 100 mm[Hg] Joseph Ceballos MD Work Phone: [facility] 02-26-2023 14:00-0400 Body height 170.2 cm Kiki Milan TESTS SUPERINTENDENT.SECRETARY TO THE VICE PRESIDENT Work Phone: [facility] 02-26-2023 14:00-0400 Body weight 73.94 kg Kiki Breda TESTS SUPERINTENDENT.SECRETARY TO THE VICE PRESIDENT Work Phone: [facility] 02-26-2023 14:00-0400 Diastolic blood pressure 64 mm[Hg] Kiki Breda TESTS SUPERINTENDENT.SECRETARY TO THE VICE PRESIDENT Work Phone: [facility] 02-26-2023 14:00-0400 Systolic blood pressure 112 mm[Hg] Kiki Breda TESTS SUPERINTENDENT.SECRETARY TO THE VICE PRESIDENT Work Phone: [facility] 06-11-2020 05:45-0500 Body Temperature 97.7 [degF] [facility] [place] 06-11-2020 05:45-0500 BP Diastolic 74 mm[Hg] [facility] , [place] 06-11-2020 05:45-0500 BP Systolic 117 mm[Hg] [place], [place] 06-11-2020 05:45-0500 Pulse (Heart Rate) 67 /min [place] 06-11-2020 05:45-0500 Pulse Oximetry 98 % [place] 06-11-2020 05:45-0500 Respiratory Rate 16 /min [place], [place] 06-04-2020 20:24-0500 BMI (Body Mass Index) 21.79 kg/m2 [place], [place] 06-04-2020 20:24-0500 Body weight 61.24 kg [place] 06-04-2020 20:24-0500 Height 167.6 cm [place] Encounters Encounter Date Encounter Type Care Provider Facility Start: 12-26-2024 End: 12-26-2024 ambulatory [facility] Start: 12-20-2024 End: 12-20-2024 ambulatory [facility] Start: 12-07-2024 End: 12-07-2024 [facility] Start: 12-06-2024 End: 12-06-2024 Emergency department patient visit Markie Quiros Facility:[facility] Start: 12-01-2024 End: 12-01-2024 ambulatory [facility] Start: 11-17-2024 End: 11-17-2024 ambulatory NAVDEEP JEFFREY [facility] Start: 11-09-2024 End: 11-09-2024 ambulatory [facility] Start: 11-04-2024 End: 11-04-2024 ambulatory Bertha Wood [facility] Start: 11-04-2024 End: 11-04-2024 ambulatory [facility] Facility:[facility] Start: 10-19-2024 End: 10-19-2024 ambulatory Bertha S Jolliff Facility:[facility] Start: 10-13-2024 End: 10-13-2024 ambulatory Bertha S Jolliff [facility] Start: 10-13-2024 End: 10-13-2024 ambulatory Bertha S Jolliff Facility:[facility] Start: 10-05-2024 End: 10-05-2024 ambulatory Bertha S Jolliff Facility:[facility] Start: 10-03-2024 End: 10-03-2024 ambulatory BERTHA S JOLLIFF [facility] Start: 09-22-2024 End: 09-22-2024 ambulatory BERTHA S JOLLIFF [facility] Start: 09-19-2024 End: 09-19-2024 ambulatory Bertha S Jolliff Facility:[facility] Start: 09-14-2024 End: 09-14-2024 ambulatory Bertha S Jolliff [facility] Start: 08-31-2024 End: 08-31-2024 ambulatory Bertha S Jolliff Facility:[facility] Start: 08-24-2024 End: 08-24-2024 ambulatory Bertha S Jolliff [facility] Start: 08-19-2024 End: 08-19-2024 ambulatory Bertha S Jolliff Facility:[facility] Start: 08-19-2024 End: 08-19-2024 ambulatory Bertha S Jolliff Facility:[facility] Start: 08-16-2024 End: 10-17-2024 Follow-up encounter Rosario Escalona MD Work Phone: OB/Gynecology Start: 08-15-2024 End: 08-15-2024 ambulatory CHRISTIANNE CARRANZA Facility:[facility] Start: 08-14-2024 End: 10-14-2024 Follow-up encounter Rosario Escalona MD Work Phone: OB/Gynecology Start: 08-13-2024 End: 08-13-2024 ambulatory CHRISTIANNE CARRANZA Facility:[facility] Start: 08-12-2024 End: 10-12-2024 Follow-up encounter Christianne Carranza APRN.AUSTINM Work Phone: OB/Gynecology Start: 08-12-2024 End: 08-12-2024 Telephone encounter Christianne Carranza APRN.CNKevyn Work Phone: OB/Gynecology Comment on above: Transferred Care Start: 08-12-2024 ambulatory Bertha Wood Facility: [facility] Start: 08-11-2024 End: 08-11-2024 ambulatory CHRISTIANNE CARRANZA Facility:[facility] Start: 08-11-2024 End: 08-11-2024 Patient encounter procedure Christianne Carranza APRN.CNM Work Phone: OB/Gynecology Comment on above: with uncer tain dates, antepartum (Primary Dx); 6 weeks gestation of ; Threatened miscarriage; Bipolar 2 disorder (HCC); Anorexia nervosa; Anxiety; Depression, unspecified depression type; Cholinergic urticaria; Encounter for supervision of high risk in first trimester, antepartum Start: 08-09-2024 End: 08-24-2024 Telephone encounter Christianne Carranza APRN.RENUKA Work Phone: OB/Gynecology Comment on above: Appointment Start: 06-29-2024 End: 06-29-2024 ambulatory JOSEPH CEBALLOS Facility:[facility] Start: 06-29-2024 End: 06-29-2024 Patient encounter procedure Joseph Ceballos MD Work Phone: OB/Gynecology Comment on above: Encounter for gyneco logical examination (general) (routine) without abnormal findings (Primary Dx); Attempting to conceive Start: 06-29-2024 End: 06-29-2024 Patient encounter status Joseph Ceballos MD Work Phone: [facility] Start: 05-11-2024 End: 05-11-2024 ambulatory JOSEPH CEBALLOS Facility:[facility] Start: 05-11-2024 End: 05-11-2024 Patient encounter procedure Joseph Ceballos MD Work Phone: OB/Gynecology Comment on above: Encounter for IUD re moval (Primary Dx) Start: 05-05-2024 End: 05-05-2024 ambulatory Joseph Ceballos MD Work Phone: OB/Gynecology Comment on above: Bleeding irregularly Start: 01-28-2024 End: 01-28-2024 ambulatory Bertha Wood Facility:[facility] Start: 01-18-2024 End: 01-18-2024 Telephone encounter Joseph Ceballos MD Work Phone: OB/Gynecology Comment on above: Orders Start: 11-25-2023 End: 11-25-2023 ambulatory JOSEPH CEBALLOS Facility:[facility] Start: 11-25-2023 End: 11-25-2023 Patient encounter procedure Joseph Ceballos MD Work Phone: OB/Gynecology Comment on above: Irregular menses (Pr imary Dx); Intolerance to cold Start: 02-26-2023 End: 02-26-2023 Patient encounter procedure Kiki Yates TESTS SUPERINTENDENT.SECRETARY TO THE VICE PRESIDENT Work Phone: OB/Gynecology Comment on above: Secondary amenorrhea (Primary Dx) Start: 06-04-2020 Patient encounter procedure [facility] [place] Procedures Date Procedure Procedure Detail Performing Clinician Start: 08-11-2024 Antibody screen JOSEPH CEBALLOS Comment on above: Order Comment: Speci men Type: BLOOD SPECIMENOrdering Facility: [facility] Address: [address] [place] [address] Performed By: #### T SPN ####CC MAIN BLOOD BANKCLIA [id number] [place] [address] [place] Start: 08-11-2024 Us uterus l imited 1/> fetuses Christianne Madrigalrosalia TESTS SUPERINTENDENT.CNM Work Phone: Start: 06-29-2024 UA DIP,URINE HCG (POC) Joseph Ceballos MD Work Phone: Start: 05-11-2024 UA DIP,URINE HCG (POC) Joseph Ceballos MD Work Phone: Start: 06-06-2020 COVID-19 Henri Bagley cCutcheon Work Phone: Start: 06-06-2020 Assay of troponin quantitative Carolina Lomeli Work Phone: Start: 06-06-2020 Basic metabolic pane l calcium total Carolina Lomeli Work Phone: Start: 06-06-2020 Blood count hemoglobin Carolina Lomeli Work Phone: Start: 06-06-2020 Lipid panel Danielle Borja Work Phone: Start: 06-05-2020 Ecg routine ecg w/le ast 12 lds w/i&r Carolina Lomeli Work Phone: Start: 06-05-2020 Gluc bld gluc mntr d ev cleared fda spec home use Gonzalo De Leon Work Phone: Start: 06-04-2020 Ecg routine ecg w/le ast 12 lds w/i&r Giles B Lafdeacon Work Phone: Start: 06-04-2020 Assay of acetaminophen Sharon Castro Work Phone: Start: 06-04-2020 Assay of ethanol Flynnfamilia nieves Matthew Work Phone: Start: 06-04-2020 Assay of salicylate Flynn villa Matthew Work Phone: Start: 06-04-2020 Blood count complete auto&auto difrntl wbc Sharon Matthew Work Phone: Start: 06-04-2020 Comprehensive metabo lic panel Sharonroger Castro Work Phone: Start: 06-04-2020 COVID-19 Sharon bell Work Phone: Start: 06-04-2020 Drug screen class list a Sharonroger Castro Work Phone: Start: 06-04-2020 Gonadotropin chorion ic qualitative Sharon Castro Work Phone: Plan of Treatment Date Care Activity Detail Author Start: 06-04-2030 DTaP/Tdap/Td vaccine (5 - Td) DTaP/Tdap/Td vaccine (5 - Td) [place] Start: 06-04-2030 Urine microalbumin profile DTaP,Tdap,Td Vaccine (8 - Td or Tdap) [facility] Start: 06-08-2026 Screening for malign ant neoplasm of cervix Cervical Cancer Screening [facility] Start: 08-11-2025 GC (Gonorrhea) Scree james (18-24) GC (Gonorrhea) Screening (18-24) [facility] Start: 08-11-2025 Screening for Chlamy jennifer trachomatis Chlamydia Screening (18-) [facility] Start: 07-03-2025 End: 07-03-2025 Patient encounter procedure 07/03/2025 9:10 AM EST Office Visit OB/Gynecology [address] [place] [address] Joseph Ceballos MD [address] [place] [address] Annual OB/Gynecology Comment on above: Annual Start: 02-09-2025 RSV Vaccine (1 - Ris k 1-dose series) RSV Vaccine (1 - Risk 1-dose series) [facility] Start: 01-30-2025 Influenza vaccination Influenz a Vaccine (Season Ended) [facility] Start: 11-17-2024 End: 11-17-2024 Patient encounter procedure 11/17/2024 9:00 AM EDT Routine Office Visit Maternal Medicine [address] [place] [address] Anatomy/OB Maternal Medicine Comment on above: Anatomy/OB Start: 09-08-2024 End: 09-08-2024 Patient encounter procedure 09/08/2024 10:20 AM EDT Routine Office Visit OB/Gynecology [address] [place] [address] Dell Alonso MD [address] [place] [address] 1st OB - LMP 06/30/2024 OB/Gynecology Comment on above: 1st OB - LMP 06/30/19 Start: 08-25-2024 End: 08-25-2024 Patient encounter procedure 08/25/2024 8:30 AM EDT Routine Office Visit OB/Gynecology [address] [place] [address] Dating OB/Gynecology Comment on above: Dating Start: 08-11-2024 End: 11-10-2024 ANEMIA REFLEX PANEL [facility] Work Phone: Comment on above: Expected: 08/11/2024 , Expires: 11/10/2024 Start: 08-11-2024 End: 11-10-2024 Hepatitis C virus Ab [Presence] in Serum [facility] Comment on above: Expected: 08/11/2024 , Expires: 11/10/2024 Start: 08-11-2024 End: 08-11-2025 OBSTETRIC ULTRASOUND WHI OBSTETRIC ULTRASOUND WHI Anc Imaging Routine with uncertain dates, antepartum Expected: 08/11/2024, Expires: 08/11/2025 [facility] Comment on above: Expected: 08/11/2024 , Expires: 08/11/2025 Start: 08-11-2024 End: 11-10-2024 RUBELLA IGG ANTIBODY [facility] Comment on above: Expected: 08/11/2024 , Expires: 11/10/2024 Start: 06-29-2024 End: 06-29-2024 Patient encounter procedure 06/29/2024 9:10 AM EST Office Visit OB/Gynecology [address] [place] [address] Joseph Ceballos MD [address] [place] [address] Annual OB/Gynecology Comment on above: Annual Start: 06-08-2024 GC (Gonorrhea) Scree james (18-24) GC (Gonorrhea) Screening (18-24) [facility] Start: 06-08-2024 Screening for Chlamy jennifer trachomatis Chlamydia Screening (18-) [facility] Start: 05-11-2024 End: 05-11-2024 Patient encounter procedure 05/11/2024 10:30 AM EST Office Visit OB/Gynecology [address] [id number] Joseph Ceballos MD [address] [place] [address] IUD REMOVAL OB/Gynecology Comment on above: IUD REMOVAL Start: 02-24-2024 End: 02-24-2024 Patient encounter procedure 02/24/2024 8:00 AM EDT Office Visit OB/Gynecology [address] [place] [address] Joseph Ceballos MD [address] [place] [address] IUD Removal OB/Gynecology Comment on above: IUD Removal Start: 01-31-2024 Covid-19 Vaccine ( season) Covid-19 Vaccine ( season) [facility] Start: 01-31-2024 Influenza vaccination [facility] Start: 11-25-2023 End: 02-24-2024 Thyrotropin [Units/volume] in Serum or Plasma [facility] Work Phone: Comment on above: Expected: 11/25/2023 , Expires: 02/24/2024 Start: 01-30-2023 Covid-19 Vaccine ( season) Covid-19 Vaccine ( season) [facility] Start: 01-30-2023 Influenza vaccination Influenza Vacc ine (#1) [facility] Start: 2022 Pap Testing Pap Testing [facility] Start: 06-01-2022 Depression Assessment Depression Ass essment [facility] Start: 2020 Urine microalbumin profile DTaP,Tdap,Td Vaccine (1 - Tdap) [facility] Start: 01-31-2020 Influenza vaccination Flu vaccine (# 1) [facility] [place], [place] Start: 08-21-2019 Chlamydia Screening (18-24) Chlamydia Screening (18-24) [facility] Start: 08-21-2019 GC (Gonorrhea) Scree james (18-24) GC (Gonorrhea) Screening (18-24) [facility] Start: 08-21-2019 Hepatitis C Screening Hepatitis C Sc reening [facility] Start: 08-21-2019 Hepatitis C screening Hepatitis C Sc rowdy [facility] Start: 08-21-2019 HIV Screening HIV Screening [facility] Start: 2017 Meningococcal B Vacc ine (1 of 2 - Standard) Meningococcal B Vaccine (1 of 2 - Standard) [facility] Start: 2017 Meningococcal B Vacc ine: Consider Based On Risk (1 of 2 - Patient Seeks Protection) Meningococcal B Vaccine: Consider Based On Risk (1 of 2 - Patient Seeks Protection) [facility] Start: 2017 Screening for Chlamy jennifer trachomatis Chlamydia screen [place], [place] Start: 2016 HIV screening HIV screen [place], [place] Start: 08-21-2015 Peds To Adult Transi tion Annual Assessment Peds To Adult Transition Annual Assessment [facility] Start: 2013 Peds To Adult Transi tion Initial Discussion Peds To Adult Transition Initial Discussion [facility] Start: 2010 HPV Vaccine (1 - 2-d ose series) HPV Vaccine (1 - 2-dose series) [facility] Start: 05-23-2002 Hepatitis B vaccine (3 of 3 - 3-dose primary series) Hepatitis B vaccine (3 of 3 - 3-dose primary series) [place] Start: 02-20-2002 Covid-19 Vaccine (#1) Covid-19 Vacci ne (#1) [facility] Start: 2001 Hepatitis B Vaccine (1 of 3 - 3-dose series) Hepatitis B Vaccine (1 of 3 - 3-dose series) [facility] Start: 2001 Hepatitis C screening Hepatitis C ar brianne [place], [place] Bacteria identified in Urine by Culture BACTERIAL CULTURE, URINE Microbiology Routine with uncertain dates, antepartum 08/11/2024 9:34 AM EDT [facility] Chlamydia trachomatis+Neisseria gonorrhoeae DNA [Presence] in Unspecified specimen by SANTY with probe detection GONORRHEA/CHLAMYDIA NAAT Lab Routine with uncertain dates, antepartum 08/11/2024 9:34 AM EDT [facility] End: 09-09-2024 Choriogonadotropin.beta subunit [Units/volume] in Serum or Plasma HCG QUANTITATIVE Lab Routine with uncertain dates, antepartum 2x per week for 8 Occurrences starting 08/11/2024 until 09/09/2024, 1 completed [facility] Comment on above: 2x per week for 8 Oc currences starting 08/11/2024 until 09/09/2024, 1 completed Removal intrauterine device iud REMOVE INTRAUTERINE DEVICE Procedures Routine Encounter for IUD removal Ordered: 01/18/2024 [facility] Work Phone: Comment on above: Ordered: 01/18/2024 Removal intrauterine device iud REMOVE INTRAUTERINE DEVICE Procedures Routine Encounter for IUD removal Ordered: 05/11/2024 [facility] Work Phone: Comment on above: Ordered: 05/11/2024 TRICHOMONAS VAGINALI S NAAT TRICHOMONAS VAGINALIS NAAT Lab Routine with uncertain dates, antepartum 08/11/2024 9:34 AM EDT [facility] Immunizations Immunization Date Immunization Notes Care Provider Duc heredia 06-04-2020 tetanus toxoid, reduced diphtheria toxoid, and acellular pertussis vaccine, adsorbed [place], [place] 03-07-2019 influenza virus vaccine, unspecified formulation Kiki Breda TESTS SUPERINTENDENT.SECRETARY TO THE VICE PRESIDENT Work Phone: [facility] NEGATED: Highlighted row has not occurred!07-23-2020 influenza, injectable, quadrivalent, preservative free Kiki Breda TESTS SUPERINTENDENT.SECRETARY TO THE VICE PRESIDENT Work Phone: [facility] Comment on above: Deferred: Patient Re fused - Not in patient's med bin at time of discharge & patient did not want to wait for it to come from pharmacy Payers Date Payer Category Payer [facility] [id number] 2024 Unknown [id number] 2024 Self-pay 2023 Unknown [id number] 2021 Unknown [id number] 2020 Unknown HEALTH PLAN OF [facility] THE HEALTH PLAN [facility] [id number] 2020-Present [phone] [address] [place] [address] [id number] 2001 Unknown [id number] 2.16.840.1.303242.3.579.2 .479 2001 Unknown [id number] 2.16.840.1.109735.3.579.2 .479 2001 Unknown [id number] 2.16.840.1.137272.3.579.2 .479 2001 Unknown [id number] 2.16.840.1.542485.3.579.2 .479 2001 Unknown [id number] 2.16.840.1.949017.3.579.2 .479 Unknown [id number] 2.16.840.1.299935.3.579.2 .462 Unknown [id number] 2.16.840.1.224104.3.579.2 .462 Unknown [id number] 2.16.840.1.556955.3.579.2 .462 Unknown [id number] 2.16.840.1.000273.3.579.2 .462 Unknown [id number] 2.16.840.1.359953.3.579.2 .462 Unknown [id number] 2.16.840.1.691959.3.579.2 .462 Unknown [id number] 2.16.840.1.515767.3.579.2 .462 Unknown [id number] 2.16.840.1.822239.3.579.2 .462 Unknown [id number] 2.16.840.1.296340.3.579.2 .462 Unknown [id number] 2.16.840.1.753928.3.579.2 .462 Unknown [id number] 2.16.840.1.630866.3.579.2 .462 Unknown [id number] 2.16.840.1.275989.3.579.2 .462 Unknown [id number] 2.16.840.1.499354.3.579.2 .462 Unknown [id number] 2.16.840.1.770212.3.579.2 .462 Unknown [id number] 2.16.840.1.280632.3.579.2 .462 Unknown [id number] 2.16.840.1.667125.3.579.2 .462 Unknown [id number] 2.16.840.1.243530.3.579.2 .462 Unknown [id number] 2.16.840.1.421297.3.579.2 .462 Unknown [id number] 2.16.840.1.161947.3.579.2 .462 Unknown [id number] 2.16.840.1.081036.3.579.2 .462 Unknown [id number] 2.16.840.1.302894.3.579.2 .462 Social History Date Type Detail Facility Start: 06-04-2020 Tobacco smoking status NHIS Never smoker [place] Start: 06-04-2020 End: 08-11-2024 Tobacco use and exposure Never used [place] Start: 06-04-2020 Alcohol intake Lifetime non-d tone (finding) [place] Start: 06-04-2020 History SDOH Alcohol Frequency 1 Stephanie [facility] ANGEL LUIS MARIN Start: 2001 Sex Assigned [facility] on file [facility]-CoV-2 (event) [facility] ANGEL LUIS MARIN Start: 02-26-2023 End: 08-11-2024 Tobacco smoking status NHIS Ex-smoker [facility] History of tobacco use Current smoker [facility] History of tobacco use Cigarette Smoker [facility] Start: 02-26-2023 End: 05-11-2024 Alcohol intake Current drinker of alcohol (finding) [facility] Start: 02-26-2023 End: 06-08-2023 History of Social function [facility] Start: 02-26-2023 End: 06-08-2023 Tobacco use panel [facility] National Score (1-100), lower number is lower risk 48 [facility] Start: 06-08-2023 Education 13 [facility] Start: 06-29-2024 End: 08-12-2024 Alcoholic beverage intake Ex-drinker (finding) [facility] Start: 07-14-2024 [facility] NEGATED: Highlighted rowStart: NINF History of tobacco use Passive smoker [facility] Functional Status Date Assessment Result Facility 07-23-2020 Are you deaf, or do you have serious difficulty hearing No 07/23/2020 4:53 PM Saira Hi RN No [facility] 07-23-2020 Are you blind, or do you have serious difficulty seeing, even when wearing glasses No 07/23/2020 4:53 PM Saira Hi RN No [facility] 07-23-2020 Do you have serious difficulty walking or climbing stairs No 07/23/2020 4:53 PM Saira Hi RN No [facility] 07-23-2020 Do you have difficul ty dressing or bathing No 07/23/2020 4:53 PM Saira Hi RN No [facility] 07-23-2020 Because of a physica l, mental, or emotional condition, do you have difficulty doing errands alone such as visiting a physician's office or shopping No 07/23/2020 4:53 PM Saira Hi RN No [facility] Mental Status Date Assessment Result Facility 07-23-2020 Because of a physica l, mental, or emotional condition, do you have serious difficulty concentrating, remembering, or making decisions No 07/23/2020 4:53 PM Saira Hi RN No [facility] Clinical Notes 02-26-2023 to 09-22-2024 Telephone Encounter - Dasha Welsh RN - 08/12/2024 10:39 AM EDTTelephone Encounter - Dasha Welsh RN - 08/12/2024 10:39 AM EDTPatient Chacho Pugh MA - 08/11/2024 8:28 AM EDT Note Date & Type Note Facility 09-22-2024 Note Consultation has bee n requested by: Navdeep Jeffrye CNM EDC: Estimated Date of Delivery: 04/14/25 Gestational Age: 11w6d Reason for Consult: Medication Exposure Patient is here with , VADIM. History: (Detailed history is noted in the genetic counselor's note) Patient has extensive psych history and PTSD. She has been on multiple medications including Latuda 60mg daily, Prozac 60 mg and Lamictal 150 mg BID. Psychiatric counseling and care are largely handled at [place] [address] in [place] but she also sees a separate counselor, Kimberly Fleming) for therapy s/p 2 incidences of hospitalization for anorexia and for episode of suicidal ideation. She states she is stable and under control. Alejandra had a cervical rib removed for thoracic outlet syndrome. She is a twin from an IVF . She desires NIPT/Carrier screening. Imagin. Nava intrauterine with cardiac activity present at 10w 6d with an HERBIE of 04/14/2025. 2. [place] rump length measurement are consistent with supplied dating. 3. Anatomic detail is extremely limited at this early gestational age. No gross abnormalities were noted on this examination. 4. Normal uterus and adnexa. 5. Absence of free fluid in the pelvis. Please refer to the ultrasound report for full details. [facility] Counseling Summary I reviewed the information regarding medication use and the general conclusions: Latuda is not expected to increase the risk of congenital anomalies, however, information about its use in human is limited Lamotrigine (Lamictal) may decrease the amount of folic acid available to a developing baby. Since a folic acid deficiency has been associated with an increased risk of a number of different defects, including spina bifida, cleft lip and palate, certain heart defects and limb abnormalities, it has been suggested that women of reproductive age who are taking Lamictal should consume 4 to 5 mg of folic acid on a daily basis. There has been intimation that there may be an association of Lamictal use and CL/CP but there is inadequate data. SSRIs are not believed to increase risk of congenital defects by the majority of data but are thought to be associated with an increased chance of respiratory distress in a , with the most severe consequence being persistent pulmonary hypertension, the risk of which, if any, is expected to be <1%. She expressed understanding of the above information. Follow Up Recommend NT at 12 - 13 weeks' Targeted anatomy in 8 weeks CffDNA results pending. Echo if anatomy cardiac views are not adequate. Other follow up as clinically indicated. The total patient time of the visit was 30 minutes spent counseling and coordinating care. Discussion topics are listed above. Martine Llanes MD [facility] Physician, Maternal- Medicine [facility] 08-12-2024 Telephone encounter Note Patient transferred care for remainder of . She was seen in our office for 1 visit. Please bill all visits. Dasha Welsh RN [facility] 08-12-2024 Miscellaneous Notes Patient transferred care for remainder of . She was seen in our office for 1 visit. Please bill all visits. Dasha Welsh RN documented in this encounter [facility] 08-11-2024 Instructions Chacho Redman MA - 08/11/2024 8:31 AM EDT Please select the following link to access the [facility] Your Guide to a Healthy . [email or web address] documented in this encounter [facility] 08-11-2024 Note HNO ID: [id number] Author: CHACHO REDMAN MA Service: ? Author Type: [employer]or Type: Progress Notes Filed: 08/11/2024 15:56 Note Text: OB point of care ultrasound was performed. See imaging tab for details. Chacho Redman MA [facility] 08-11-2024 History of Presen t illness Narrative OB point of care ultrasound was performed. See imaging tab for details. Chacho Redman MA *Patient is a twin but mother had IVF *Pt has a history of depression/anxiety/Bipoar 2 diagnosed in [address] Frannie Hudson at [place] [address] in [place]. She states that she has had 2 inpatient mental hospitalizations for this the last 1 being in 2020. She states she last had suicidal thoughts in 2020. Discussed increased risks of depression during and and importance of reporting the development or worsening of symptoms should they occur. *She has a history of anorexia and sees a therapist at [facility] in [facility]She states she has had inpatient treatment for anorexia twice. *Patient states and mother with factor V heterogenous *Patient considering genetic carrier screening testing and aneuploidy screening. Contact information given to check on insurance coverage. INITIAL OB ASSESSMENT HPI: Alejandra is a 23 year old White here to establish Obstetrical Care. Patient's last menstrual period was 06/01/2024 (approximate). from OB Dating Form. OB History Gravida2 Para0 Term0 Preterm0 AB1 Living0 SAB0 IAB1 Ectopic0 Multiple0 Live Births0 was planned Complaints: No Previous history: Prior : No History of 4th degree laceration: No History of shoulder dystocia: No History of Hypertensive disorders including pre-eclampsia or gestational hypertension: No History of gestational diabetes: No Patient's Risk Screening for delivery: Have you had a prior nava between 20w and 36w6d? No How many pregnancies have you had before? 1 Did you have a previous baby with a GBS Infection? No Please select all that apply for any prior : N/A MEDICAL/PSYCHOSOCIAL HISTORY: History of hemorrhage or bleeding concerns: No Thyroid Disease: No History of chronic hypertension: No History of pre-existing diabetes: No ABO/RH(D) Date Value Ref Range Status 07/20/2020 A NEGATIVE Final BMI 27.37 kg/(m^2) Last Pap: 06/12/2023 History of abnormal pap: No Prior treatment for cervical dysplasia: none. Last HPV: History of STDs: None Partner History of STDs: None Did you have a partner with Herpes? No Tobacco use: No E-Cigarette/Vaping Use: No Caffeine use: No drinks a soda 4 days of the week Drug use: Yes Alcohol use: No Multivitamin with Folic acid: Yes Would refuse blood transfusion if medically necessary: No Social Needs: How often does this describe you? I don't have enough money to pay my bills: Never Within the past 12 months, have you worried that your food would run out before you had money to buy more? Never In the past 12 months, has lack of reliable transportation kept you from going to medical appointments or work, or from getting things needed for daily living? Never In the past 12 months, have you had any concerns about having a place to live, or about the condition or quality of your housing? Never Would you like more information on any of the following (please check all that apply)? Medical Clerk care Social History: Do you have any history of depression, anxiety, PTSD, or other mood problems? Yes Do you have a history of abuse or trauma that may impact your experience? Yes Are you currently employed? No Depression/Anxiety Screening: denies symptoms of depression. OB Depression and Anxiety Screening- This Encounter (since 08/10/2024) Over the past 2 weeks have you felt down, depressed, or hopeless? Negative Over the past two weeks, have you felt little interest or pleasure in doing things? Negative Feeling nervous, anxious or on edge 1-Several days Not being able to stop or control worrying 0-Not al all Anxiety Pre-Screening Total (If >/= 3 additional questions will be reviewed) 1 Genetic Screening: Partner present: No Patient verbalized knowledge of partner family health history: Yes Do you or your partner have any personal or family history of defects not previously discussed: No Do you have history of a complicated by anomaly, genetic condition, or demise: No Preeclampsia Risk Screening: Screening for prevention of preeclampsia: High risk factors: None Moderate risk ractors: Nulliparity OB Risk Screening: Completed, no positive findings documented. 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 cetirizine (ZYRTEC) 10 mg tablet Take 10 mg by mouth once daily. lurasidone (LATUDA) 60 mg tablet Take 60 mg by mouth once daily. levocetirizine 5 mg tablet Take 5 mg by mouth once daily. FLUoxetine (PROZAC) 20 mg capsule Take 40 mg by mouth once daily. cariprazine (VRAYLAR) 3 mg capsule Take by mouth once daily. lamoTRIgine (LAMICTAL) 150 mg tablet Take 1 tablet by mouth every 12 (twelve) hours. (Patient not taking: Reported on 05/11/2024) benztropine (COGENTIN) 0.5 mg tablet Take 1 tablet by mouth every 12 (twelve) hours. levonorgestrel (LILETTA) 20.4 mcg/24 hrs (8 yrs) 52 mg IUD by INTRAUTERINE route. (Patient not taking: Reported on 06/29/2024) FLUoxetine (PROZAC) 10 mg capsule Take 1 capsule (10 mg) by mouth daily + 1 capsule of 20mg daily (total 30mg) BIOTIN ORAL Take by mouth. No current facility-administered medications for this visit. Allergies As of Date: 08/11/2024 Allergen Noted Reaction POTATO 06/24/2016 Rash and Hives SEASONAL ALLERGIES 02/18/2018 Cough Fully Assessed 08/11/2024 Does patient have penicillin allergy: No REVIEW OF SYSTEMS: GENERAL: Negative for: Fever or Chills and Positive for: Fatigue HEENT: Negative for: Headache, Impaired Vision, Ringing in Ears, Nosebleeds NECK: Negative for: Swelling, Pain, Stiffness RESPIRATORY: Negative for: Cough, Shortness of breath, Wheezing GASTROINTESTINAL: Negative for: Heartburn, Constipation, Diarrhea, Blood in stool, Vomiting and Positive for: Constipation MUSCULOSKELETAL: Negative for: Muscle or joint pain, stiffness, Joint swelling NEUROLOGIC/PSYCHIATRIC: Negative for: Weakness, Paralysis, Numbness, Tingling, Tremor,, Memory loss and history of bipolar, anorexia, hx of hospitalizations SKIN: Negative for: Rash, Itching heat rashes- 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 As applicable, any other physician, advance practice provider, medical student, or other health professional student that will be observing or involved in the sensitive examination for educational or training purposes was discussed with the Patient or Authorized Annual Giving Officer. The Patient or Authorized Annual Giving Officer has agreed to proceed with the sensitive examination. (Sensitive examination includes inspection and/or palpation of the breasts, pelvis, prostate and anorectal regions). PHYSICAL EXAM: BP 110/72 Ht 5' 8 (1.73m) Wt 180 lb (81.6kg) LMP 06/01/2024 BMI 27.38 kg/(m^2). GENERAL: pleasant in no apparent distress DERMATOLOGY: Normal, without lesions, non-icteric, and non-hirsute NECK: Supple, full range of motion, no adenopathy, and thyroid normal CHEST: Normal inspiratory effort BREAST: soft, non-tender, symmetric, no dominant mass, normal nipple-areolar complex, no lymphadenopathy, no nipple discharge, and fibrocystic changes ABDOMEN: soft, non-tender, and no masses NEURO: alert and oriented x3,exam grossly non-focal PELVIS: External genitalia normal without lesions. Perineal body intact. No vaginal or cervical lesions. Cervix closed. Clinical Pelvimetry: Pelvimetry clinically assessed as adequate Limited OB ultrasound exam: Gestational sac- possible yolk sac with small pole. 6.0 weeks gestation. HCG levels ordered and will repeat formal US in 2 weeks. Reviewed miscarriage precautions and when to call office SBIRT Alejandra Kiran was given the 4P's screening tool. Alejandra answered No to all the questions, the result is determined to be negative. ASSESSMENT/PLAN: 1. with uncertain dates, antepartum - ICD9: V22.1, ICD10: Z34.90 (primary diagnosis) 2. 6 weeks gestation of - ICD9: V22.2, ICD10: Z3A.01 3. Threatened miscarriage - ICD9: 640.00, ICD10: O20.0 4. Bipolar 2 disorder (HCC) - ICD9: 296.89, ICD10: F31.81 5. Anorexia nervosa - ICD9: 307.1, ICD10: F50.00 6. Anxiety - ICD9: 300.00, ICD10: F41.9 7. 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 Encounter for supervision of high risk in first trimester, antepartum - ICD9: V23.9, ICD10: O09.91 PLAN: - Discussed US findings with patient and partner. Possible early gestation vs. Miscarriage. HCG levels ordered. Bleeding precautions reviewed Support provided 1) Patient oriented to practice. 2) Screening: Hemoglobin A1C: ordered Baby Aspirin: The patient has been counseled about the potential benefits of low dose aspirin in and our recommendation that this be offered to all patients, regardless of whether they meet the high risk criteria specified above. She Accepts Aneuploidy Screening: Discussed aneuploidy screening, nuchal translucency/first trimester early anatomy ultrasound and NIPT. The risks/benefits and limitations of NIPT/aneuploidy screening were reviewed including the potential for false negative and false positive results. The availability of genetic counseling was reviewed. Information on aneuploidy screening was provided. The patient is uncertain. She will call back if she wants to proceed with screening. Pt aware of timing. Myriad Carrier Screening: Discussed myriad carrier screening. We discussed the availability of professional-society guided carrier screening and reviewed the conditions screened and limitations of screening. The availability of genetic counseling was reviewed. Information on carrier screening was provided. The patient Declines 3) Patient offered option of Virtual Visits. Patient prefers in person visits. Follow up in 2 weeks for formal dating US and TIFFANY or sooner prhanane Carranza APRN.CNM documented in this encounter [facility] 08-09-2024 Note HNO ID: [id number] Author: CHRISTIANNE CARRANZA APRN.CNM Service: ? Author Type: Medical Clerk Type: Progress Notes Filed: 08/11/2024 15:56 Note Text: *Patient is a twin but mother had IVF *Pt has a history of depression/anxiety/Bipoar 2 diagnosed in [address] Frannie Hudson at [place] [address] in [place]. She states that she has had 2 inpatient mental hospitalizations for this the last 1 being in 2020. She states she last had suicidal thoughts in 2020. Discussed increased risks of depression during and and importance of reporting the development or worsening of symptoms should they occur. *She has a history of anorexia and sees a therapist at [facility] in [facility].-She states she has had inpatient treatment for anorexia twice. *Patient states and mother with factor V heterogenous *Patient considering genetic carrier screening testing and aneuploidy screening. Contact information given to check on insurance coverage. INITIAL OB ASSESSMENT HPI: Alejandra is a 23 year old White here to establish Obstetrical Care. Patient's last menstrual period was 06/01/2024 (approximate). from OB Dating Form. OB History Gravida2 Para0 Term0 Preterm0 AB1 Living0 SAB0 IAB1 Ectopic0 Multiple0 Live Births0 was planned Complaints: No Previous history: Prior : No History of 4th degree laceration: No History of shoulder dystocia: No History of Hypertensive disorders including pre-eclampsia or gestational hypertension: No History of gestational diabetes: No Patient's Risk Screening for delivery: Have you had a prior nava between 20w and 36w6d? No How many pregnancies have you had before? 1 Did you have a previous baby with a GBS Infection? No Please select all that apply for any prior : N/A MEDICAL/PSYCHOSOCIAL HISTORY: History of hemorrhage or bleeding concerns: No Thyroid Disease: No History of chronic hypertension: No History of pre-existing diabetes: No ABO/RH(D) Date Value Ref Range Status 07/20/2020 A NEGATIVE Final BMI 27.37 kg/(m2) Last Pap: 06/12/2023 History of abnormal pap: No Prior treatment for cervical dysplasia: none. Last HPV: History of STDs: None Partner History of STDs: None Did you have a partner with Herpes? No Tobacco use: No E-Cigarette/Vaping Use: No Caffeine use: No drinks a soda 4 days of the week Drug use: Yes Alcohol use: No Multivitamin with Folic acid: Yes Would refuse blood transfusion if medically necessary: No Social Needs: How often does this describe you? I don't have enough money to pay my bills: Never Within the past 12 months, have you worried that your food would run out before you had money to buy more? Never In the past 12 months, has lack of reliable transportation kept you from going to medical appointments or work, or from getting things needed for daily living? Never In the past 12 months, have you had any concerns about having a place to live, or about the condition or quality of your housing? Never Would you like more information on any of the following (please check all that apply)? Medical Clerk care Social History: Do you have any history of depression, anxiety, PTSD, or other mood problems? Yes Do you have a history of abuse or trauma that may impact your experience? Yes Are you currently employed? No Depression/Anxiety Screening: denies symptoms of depression. OB Depression and Anxiety Screening- This Encounter (since 08/10/2024) Over the past 2 weeks have you felt down, depressed, or hopeless? Negative Over the past two weeks, have you felt little interest or pleasure in doing things?? Negative Feeling nervous, anxious or on edge 1-Several days Not being able to stop or control worrying 0-Not al all Anxiety Pre-Screening Total (If >/= 3 additional questions will be reviewed) 1 Genetic Screening: Partner present: No Patient verbalized knowledge of partner family health history: Yes Do you or your partner have any personal or family history of defects not previously discussed: No Do you have history of a complicated by anomaly, genetic condition, or demise: No Preeclampsia Risk Screening: Screening for prevention of preeclampsia: High risk factors: None Moderate risk ractors: Nulliparity OB Risk Screening: Completed, no positive findings documented. 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 [facility] 08-09-2024 Telephone encounter Note Patient called back. Can call her around 10:30 or 11:00 today. Thank you. [facility] 08-09-2024 Miscellaneous Notes Patient called back. Can call her around 10:30 or 11:00 today. Thank you. Left message for patient to return phone call to complete nurse intake questions for her upcoming appointment. Patient has an appointment with Christianne Carranza for NOB appointment. I am here today if she calls back or transfer to [facility] documented in this encounter [facility] 08-09-2024 Telephone encounter Note Left message for patient to return phone call to complete nurse intake questions for her upcoming appointment. Patient has an appointment with Christianne Carranza for NOB appointment. I am here today if she calls back or transfer to [facility] 06-29-2024 Note HNO ID: [id number] Author: JOSEPH CEBALLOS MD Service: ? Author Type: Physician Type: Progress Notes Filed: 07/01/2024 10:13 Note Text: Inside Sales Advisor offered: Patient accepts, visit chaperoned by Erica Beverly MA. Alejandra is a 23 year old who presents for an annual gynecologic exam without complaints. Still get period: Yes Bleeding amount bothersome: No Bleeding between periods: No Period symptoms: Cramps; Mood change; Pelvic pain Time with current partner: 3 years Number of lifetime partners: 4 control frequency: Sometimes HPV vaccine: Unsure; HPV:negative Last pap smear: 06/08/2023 History of abnormal pap: No, all prior PAP smears have been normal Bothersome pelvic pain: No Last mammogram: never Patient concerns for STD exposure: No. Last sexual contact: 3 days OB History T0 L0 SAB0 IAB0 Ectopic0 Multiple0 Live Births0 Floor Sweeper History LMP: 06/01/2024, Having periods Age at Menarche: 13 Age at First : Age at Menopause: Floor Sweeper History Comments: Sexual Activity: Yes; Male Contraception: No contraception data on record Menstrual Tracking History Flowsheet Row Office Visit from 06/29/2024 in OB/Gynecology Period Cycle (Days) 34 Period Duration (Days) 4 Menstrual Flow Heavy PAST MEDICAL HISTORY Diagnosis Date Anorexia nervosa Anxiety Bipolar 1 disorder (HCC) Depression Scoliosis TOS (thoracic outlet syndrome) bilateral Urticaria PAST SURGICAL HISTORY Procedure Laterality Date EXCISION FIRST AND/OR CERVICAL RIB Right 2015 EXTRACTION ERUPTED TOOTH/EXR SHOULDER SURGERY HX Right 2015 SHOULDER SURGERY HX Left 2020 x2 FAMILY HISTORY Problem Relation Age of Onset other (ovarian cysts) Mother 45 oopherectomy No Known Problems Father Heart Brother 21 Diabetes Maternal Grandmother Hypertension Maternal Grandfather No Known Problems Paternal Grandmother No Known Problems Paternal Grandfather SOCIAL HISTORY Social History Tobacco Use Smoking status: Former Types: Cigarettes Passive exposure: Never Smokeless tobacco: Never Vaping Use Vaping status: Former Substances: Nicotine Substance Use Topics Alcohol use: Not Currently Drug use: No REVIEW OF SYSTEMS Abdomen: No abdominal pain, nausea, vomiting, diarrhea, or constipation. No bloating, early satiety, indigestion, or increased flatulence. Bladder: No dysuria, gross hematuria, urinary frequency, urinary urgency, or incontinence. Breast: No breast lumps, nipple d/c, overlying skin changes, redness or skin retraction. Allergies and current medication updated:Yes SENSITIVE EXAM: The sensitive examination was discussed with the Patient or Patient's Authorized Annual Giving Officer. As applicable, any other physician, advance practice provider, medical student, or other health professional student that will be observing or involved in the sensitive examination for educational or training purposes was discussed with the Patient or Authorized Annual Giving Officer. The Patient or Authorized Annual Giving Officer has agreed to proceed with the sensitive examination. (Sensitive examination includes inspection and/or palpation of the breasts, pelvis, prostate and anorectal regions). EXAM: BP 100/64 Ht 5' 8 (1.73m) Wt 178 lb (80.7kg) LMP 06/01/2024 BMI 27.07 kg/(m2). GENERAL: pleasant, female in no apparent distress HEENT: Normocephalic, atraumatic, mucus membranes moist, and no lesions NECK: Supple, full range of motion, no adenopathy, and thyroid normal DERMATOLOGY: Normal, without lesions, non-icteric, and non-hirsute BREAST: soft, non-tender, symmetric, no dominant mass, normal nipple-areolar complex, no lymphadenopathy, and no nipple discharge CHEST: Normal inspiratory effort ABDOMEN: soft, non-tender, and no masses PELVIC: external genitalia normal, normal Bartholin's glands, urethra, [place]'s glands, no vulvar lesions, no cervical lesions, good vaginal support, physiologic discharge present, normal appearing perineal body and perianal region BIMANUAL: uterus normal size, shape and consistency, no adnexal masses, and non-tender RECTOVAGINAL: rectovaginal exam negative for any masses or nodularity. NEURO: alert and oriented x3,exam grossly non-focal EXTREMITIES: normal ASSESSMENT/PLAN: 1) Health maintenance: PNV attempting 2) Contraception: none. Contraceptive options reviewed and information provided. 3) STD screening: Declined STD check. 4) Follow up one year or sooner as needed Joseph Ceballos MD [facility] 06-29-2024 History of Presen t illness Narrative Inside Sales Advisor offered: Patient accepts, visit chaperoned by Erica Beverly MA. Alejandra is a 23 year old who presents for an annual gynecologic exam without complaints. Still get period: Yes Bleeding amount bothersome: No Bleeding between periods: No Period symptoms: Cramps; Mood change; Pelvic pain Time with current partner: 3 years Number of lifetime partners: 4 control frequency: Sometimes HPV vaccine: Unsure; HPV:negative Last pap smear: 06/08/2023 History of abnormal pap: No, all prior PAP smears have been normal Bothersome pelvic pain: No Last mammogram: never Patient concerns for STD exposure: No. Last sexual contact: 3 days OB History T0 L0 SAB0 IAB0 Ectopic0 Multiple0 Live Births0 Floor Sweeper History LMP: 06/01/2024, Having periods Age at Menarche: 13 Age at First : Age at Menopause: Floor Sweeper History Comments: Sexual Activity: Yes; Male Contraception: No contraception data on record Menstrual Tracking History Flowsheet Row Office Visit from 06/29/2024 in OB/Gynecology Period Cycle (Days) 34 Period Duration (Days) 4 Menstrual Flow Heavy PAST MEDICAL HISTORY Diagnosis Date Anorexia nervosa Anxiety Bipolar 1 disorder (HCC) Depression Scoliosis TOS (thoracic outlet syndrome) bilateral Urticaria PAST SURGICAL HISTORY Procedure Laterality Date EXCISION FIRST AND/OR CERVICAL RIB Right 2015 EXTRACTION ERUPTED TOOTH/EXR SHOULDER SURGERY HX Right 2016 SHOULDER SURGERY HX Left 2020 x2 FAMILY HISTORY Problem Relation Age of Onset other (ovarian cysts) Mother 45 oopherectomy No Known Problems Father Heart Brother 21 Diabetes Maternal Grandmother Hypertension Maternal Grandfather No Known Problems Paternal Grandmother No Known Problems Paternal Grandfather SOCIAL HISTORY Social History Tobacco Use Smoking status: Former Types: Cigarettes Passive exposure: Never Smokeless tobacco: Never Vaping Use Vaping status: Former Substances: Nicotine Substance Use Topics Alcohol use: Not Currently Drug use: No REVIEW OF SYSTEMS Abdomen: No abdominal pain, nausea, vomiting, diarrhea, or constipation. No bloating, early satiety, indigestion, or increased flatulence. Bladder: No dysuria, gross hematuria, urinary frequency, urinary urgency, or incontinence. Breast: No breast lumps, nipple d/c, overlying skin changes, redness or skin retraction. Allergies and current medication updated:Yes SENSITIVE EXAM: The sensitive examination was discussed with the Patient or Patient's Authorized Annual Giving Officer. As applicable, any other physician, advance practice provider, medical student, or other health professional student that will be observing or involved in the sensitive examination for educational or training purposes was discussed with the Patient or Authorized Annual Giving Officer. The Patient or Authorized Annual Giving Officer has agreed to proceed with the sensitive examination. (Sensitive examination includes inspection and/or palpation of the breasts, pelvis, prostate and anorectal regions). EXAM: BP 100/64 Ht 5' 8 (1.73m) Wt 178 lb (80.7kg) LMP 06/01/2024 BMI 27.07 kg/(m^2). GENERAL: pleasant, female in no apparent distress HEENT: Normocephalic, atraumatic, mucus membranes moist, and no lesions NECK: Supple, full range of motion, no adenopathy, and thyroid normal DERMATOLOGY: Normal, without lesions, non-icteric, and non-hirsute BREAST: soft, non-tender, symmetric, no dominant mass, normal nipple-areolar complex, no lymphadenopathy, and no nipple discharge CHEST: Normal inspiratory effort ABDOMEN: soft, non-tender, and no masses PELVIC: external genitalia normal, normal Bartholin's glands, urethra, [place]'s glands, no vulvar lesions, no cervical lesions, good vaginal support, physiologic discharge present, normal appearing perineal body and perianal region BIMANUAL: uterus normal size, shape and consistency, no adnexal masses, and non-tender RECTOVAGINAL: rectovaginal exam negative for any masses or nodularity. NEURO: alert and oriented x3,exam grossly non-focal EXTREMITIES: normal ASSESSMENT/PLAN: 1) Health maintenance: PNV attempting 2) Contraception: none. Contraceptive options reviewed and information provided. 3) STD screening: Declined STD check. 4) Follow up one year or sooner as needed Joseph Ceballos MD documented in this encounter [facility] 05-11-2024 Note HNO ID: [id number] Author: JOSEPH CEBALLOS MD Service: ? Author Type: Physician Type: Progress Notes Filed: 05/11/2024 10:51 Note Text: Inside Sales Advisor offered: Patient accepts, visit chaperoned by Erica Beverly. MA. Roberts presents for removal of IUD due to desire for . UNIVERSAL PROTOCOL / SAFETY CHECKLIST Procedure to be Performed: IUD Removal Sign In: A Moment of CARE was completed. Personnel directly involved with the procedure wore the appropriate PPE (Personal Protective Equipment). Patient/Surrogate Stated/Verified: PATIENT VERIFIED(optional for EMERGENT procedures): Patient name, Date of , Relevant allergies, and The intended procedure Time Out Communication: Intended patient and procedure match the source documents. Consent documented and matches the intended procedure. No relevant labs, photos, and/or imaging studies were applicable for review. No correct side/site applicable for marking and visibility. No medications required for procedure. No fire risk assessment and interventions applicable. No implant(s) inserted. Sign Out: SIGN OUT (optional for EMERGENT procedures): No instruments, equipment or retained foreign bodies applicable. Post-procedure follow-up management communicated and Plan of Care Visit completed when applicable. PROCEDURE: Speculum placed in vagina, IUD string visualized and grasped with ring forceps. ASSESSMENT/PLAN: IUD removed without difficulty, intact, and patient tolerated procedure well. Contraception plans: none Reviewed pre-conception guidelines including folic acid supplementation, optimal timing of intercourse, avoidance of smoking, alcohol, exposure to environmental chemicals and need for evaluation if not within 12 months. Joseph Ceballos MD [facility] 05-11-2024 History of Presen t illness Narrative Inside Sales Advisor offered: Patient accepts, visit chaperoned by Erica Beverly. MA. Roberts presents for removal of IUD due to desire for . UNIVERSAL PROTOCOL / SAFETY CHECKLIST Procedure to be Performed: IUD Removal Sign In: A Moment of CARE was completed. Personnel directly involved with the procedure wore the appropriate PPE (Personal Protective Equipment). Patient/Surrogate Stated/Verified: PATIENT VERIFIED(optional for EMERGENT procedures): Patient name, Date of , Relevant allergies, and The intended procedure Time Out Communication: Intended patient and procedure match the source documents. Consent documented and matches the intended procedure. No relevant labs, photos, and/or imaging studies were applicable for review. No correct side/site applicable for marking and visibility. No medications required for procedure. No fire risk assessment and interventions applicable. No implant(s) inserted. Sign Out: SIGN OUT (optional for EMERGENT procedures): No instruments, equipment or retained foreign bodies applicable. Post-procedure follow-up management communicated and Plan of Care Visit completed when applicable. PROCEDURE: Speculum placed in vagina, IUD string visualized and grasped with ring forceps. ASSESSMENT/PLAN: IUD removed without difficulty, intact, and patient tolerated procedure well. Contraception plans: none Reviewed pre-conception guidelines including folic acid supplementation, optimal timing of intercourse, avoidance of smoking, alcohol, exposure to environmental chemicals and need for evaluation if not within 12 months. Joseph Ceballos MD documented in this encounter [facility] 05-05-2024 Telephone encounter Note Patient called. She is not having any pain. Her appointment on 05/18 is to remove the IUD. Offered a Thursday appointment with AT. Patient declined. Scheduled on 05/11. Patient to call if she chooses to come in for a sooner appointment or with another provider. Flory Manning RN [facility] 05-05-2024 Miscellaneous Notes Patient called. She is not having any pain. Her appointment on 05/18 is to remove the IUD. Offered a Thursday appointment with AT. Patient declined. Scheduled on 05/11. Patient to call if she chooses to come in for a sooner appointment or with another provider. Flory Manning RN Noe placed 02/26/2023. Please see Pt's mychart message. Julia Chapa RN documented in this encounter [facility] 05-05-2024 Telephone encounter Note Noe placed 02/26/2023. Please see Pt's mychart message. Julia Chapa RN [facility] 01-18-2024 Telephone encounter Note Patient called and appointment scheduled. Hellen Campoverde RN [facility] 01-18-2024 Miscellaneous Notes Patient called and appointment scheduled. Hellen Campoverde RN filed Please file order in AT absence. Will call Pt to get scheduled once order is filed. Julia Chapa RN Patient is calling requesting to have IUD Liletta removed and would like this with Ayo Ceballos. Please advise patient once order is placed documented in this encounter [facility] 01-18-2024 Telephone encounter Note filed [facility] Work Phone: 01-18-2024 Telephone encounter Note Please file order in AT absence. Will call Pt to get scheduled once order is filed. Julia Chapa RN [facility] 01-18-2024 Telephone encounter Note Patient is calling requesting to have IUD Liletta removed and would like this with Ayo Ceballos. Please advise patient once order is placed [facility] 11-25-2023 Note HNO ID: [id number] Author: ERICA BEVERLY MA Service: ? Author Type: Sheeter Waxer Operator Type: Progress Notes Filed: 11/25/2023 09:37 Note Text: . [facility] 11-25-2023 History of Presen t illness Narrative . Alejandra Kiran is a 23 year old female who presents for problem visit wishing to discuss fertility related to her progestin IUD, Liletta and parental hx of IVF. Reports irregular menses related to anorexia [id number] IUD place 2020. Menarche ~ 13 yo and regular until weight loss to 106. Now 160, 5'8. Monthly/cyclic discharge on underwear.. HPI: as above and planning in ~ 12 mo, always feels cold OB History T0 L0 SAB0 IAB0 Ectopic0 Multiple0 Live Births0 Floor Sweeper History LMP: 01/15/2023 (Exact Date), IUD Age at Menarche: Age at First : Age at Menopause: Floor Sweeper History Comments: Sexual Activity: Yes; Male Contraception: I.U.D. PAST MEDICAL HISTORY Diagnosis Date Anorexia nervosa Anxiety Bipolar 1 disorder (HCC) Depression Scoliosis TOS (thoracic outlet syndrome) bilateral Urticaria PAST SURGICAL HISTORY Procedure Laterality Date EXCISION FIRST AND/OR CERVICAL RIB Right 2014 EXTRACTION ERUPTED TOOTH/EXR SHOULDER SURGERY HX Right 2015 SHOULDER SURGERY HX Left 2020 x2 FAMILY HISTORY Problem Relation Age of Onset other (ovarian cysts) Mother 45 oopherectomy No Known Problems Father Heart Brother 21 Diabetes Maternal Grandmother Hypertension Maternal Grandfather No Known Problems Paternal Grandmother No Known Problems Paternal Grandfather Social History Tobacco Use Smoking status: Former Types: Cigarettes Passive exposure: Never Smokeless tobacco: Never Vaping Use Vaping Use: Former Substances: Nicotine Substance Use Topics Alcohol use: Yes Drug use: No Current Outpatient Medications Medication Sig cariprazine (VRAYLAR) 3 mg capsule Take by mouth once daily. lamoTRIgine (LAMICTAL) 150 mg tablet Take 1 tablet by mouth every 12 (twelve) hours. benztropine (COGENTIN) 0.5 mg tablet Take 1 tablet by mouth every 12 (twelve) hours. levonorgestrel (LILETTA) 20.4 mcg/24 hrs (8 yrs) 52 mg IUD by INTRAUTERINE route. FLUoxetine (PROZAC) 20 mg capsule Take 1 capsule (20 mg) by mouth daily + 1 capsule of 10mg daily (total 30mg pills) FLUoxetine (PROZAC) 10 mg capsule Take 1 capsule (10 mg) by mouth daily + 1 capsule of 20mg daily (total 30mg) BIOTIN ORAL Take by mouth. No current facility-administered medications for this visit. Allergies As of Date: 11/25/2023 Allergen Noted Reaction POTATO 06/24/2016 Rash and Hives SEASONAL ALLERGIES 02/18/2018 Cough Fully Assessed 06/08/2023 REVIEW OF SYSTEMS Abdomen: No bloating, early satiety, indigestion, or increased flatulence. No abdominal pain, nausea, vomiting, diarrhea, or constipation. Bladder: No dysuria, gross hematuria, urinary frequency, urinary urgency, or incontinence. Breast: No breast lumps, nipple d/c, overlying skin changes, redness or skin retraction. Expanded ROS: N/A Allergies and current medication updated:Yes EXAM: LMP 01/15/2023 GENERAL: pleasant, female in no apparent distress HEENT: Normocephalic, atraumatic, mucus membranes moist, and no lesions NECK: Supple, full range of motion, no adenopathy, and thyroid normal DERMATOLOGY: Normal, without lesions, non-icteric, and non-hirsute BREAST: soft, non-tender, symmetric, no dominant mass, normal nipple-areolar complex, no lymphadenopathy, and no nipple discharge CHEST: Normal inspiratory effort ABDOMEN: soft, non-tender, and no masses PELVIC: external genitalia normal, normal Bartholin's glands, urethra, [place]'s glands, no vulvar lesions, no cervical lesions, good vaginal support, physiologic discharge present, normal appearing perineal body and perianal region BIMANUAL: uterus normal size, shape and consistency, no adnexal masses, and non-tender NEURO: alert and oriented x3,exam grossly non-focal EXTREMITIES: normal ASSESSMENT AND PLAN: 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 TSH Prepregnacy discussion, start PNVs Lengthy conversation >45 min Joseph Ceballos MD documented in this encounter [facility] 11-25-2023 Note HNO ID: [id number] Author: JOSEPH CEBALLOS MD Service: ? Author Type: Physician Type: Progress Notes Filed: 11/25/2023 09:37 Note Text: Alejandra Kiran is a 23 year old female who presents for problem visit wishing to discuss fertility related to her progestin IUD, Liletta and parental hx of IVF. Reports irregular menses related to anorexia [id number]UD [address] 2020. Menarche ~ 13 yo and regular until weight loss to 106. Now 160, 5'8. Monthly/cyclic discharge on underwear.. HPI: as above and planning in ~ 12 mo, always feels cold OB History T0 L0 SAB0 IAB0 Ectopic0 Multiple0 Live Births0 Floor Sweeper History LMP: 01/15/2023 (Exact Date), IUD Age at Menarche: Age at First : Age at Menopause: Floor Sweeper History Comments: Sexual Activity: Yes; Male Contraception: I.U.D. PAST MEDICAL HISTORY Diagnosis Date Anorexia nervosa Anxiety Bipolar 1 disorder (HCC) Depression Scoliosis TOS (thoracic outlet syndrome) bilateral Urticaria PAST SURGICAL HISTORY Procedure Laterality Date EXCISION FIRST AND/OR CERVICAL RIB Right 2014 EXTRACTION ERUPTED TOOTH/EXR SHOULDER SURGERY HX Right 2015 SHOULDER SURGERY HX Left 2020 x2 FAMILY HISTORY Problem Relation Age of Onset other (ovarian cysts) Mother 45 oopherectomy No Known Problems Father Heart Brother 21 Diabetes Maternal Grandmother Hypertension Maternal Grandfather No Known Problems Paternal Grandmother No Known Problems Paternal Grandfather Social History Tobacco Use Smoking status: Former Types: Cigarettes Passive exposure: Never Smokeless tobacco: Never Vaping Use Vaping Use: Former Substances: Nicotine Substance Use Topics Alcohol use: Yes Drug use: No Current Outpatient Medications Medication Sig cariprazine (VRAYLAR) 3 mg capsule Take by mouth once daily. lamoTRIgine (LAMICTAL) 150 mg tablet Take 1 tablet by mouth every 12 (twelve) hours. benztropine (COGENTIN) 0.5 mg tablet Take 1 tablet by mouth every 12 (twelve) hours. levonorgestrel (LILETTA) 20.4 mcg/24 hrs (8 yrs) 52 mg IUD by INTRAUTERINE route. FLUoxetine (PROZAC) 20 mg capsule Take 1 capsule (20 mg) by mouth daily + 1 capsule of 10mg daily (total 30mg pills) FLUoxetine (PROZAC) 10 mg capsule Take 1 capsule (10 mg) by mouth daily + 1 capsule of 20mg daily (total 30mg) BIOTIN ORAL Take by mouth. No current facility-administered medications for this visit. Allergies As of Date: 11/25/2023 Allergen Noted Reaction POTATO 06/24/2016 Rash and Hives SEASONAL ALLERGIES 02/18/2018 Cough Fully Assessed 06/08/2023 REVIEW OF SYSTEMS Abdomen: No bloating, early satiety, indigestion, or increased flatulence. No abdominal pain, nausea, vomiting, diarrhea, or constipation. Bladder: No dysuria, gross hematuria, urinary frequency, urinary urgency, or incontinence. Breast: No breast lumps, nipple d/c, overlying skin changes, redness or skin retraction. Expanded ROS: N/A Allergies and current medication updated:Yes EXAM: LMP 01/15/2023 GENERAL: pleasant, female in no apparent distress HEENT: Normocephalic, atraumatic, mucus membranes moist, and no lesions NECK: Supple, full range of motion, no adenopathy, and thyroid normal DERMATOLOGY: Normal, without lesions, non-icteric, and non-hirsute BREAST: soft, non-tender, symmetric, no dominant mass, normal nipple-areolar complex, no lymphadenopathy, and no nipple discharge CHEST: Normal inspiratory effort ABDOMEN: soft, non-tender, and no masses PELVIC: external genitalia normal, normal Bartholin's glands, urethra, [place]'s glands, no vulvar lesions, no cervical lesions, good vaginal support, physiologic discharge present, normal appearing perineal body and perianal region BIMANUAL: uterus normal size, shape and consistency, no adnexal masses, and non-tender NEURO: alert and oriented x3,exam grossly non-focal EXTREMITIES: normal ASSESSMENT AND PLAN: 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 TSH Prepregnacy discussion, start PNVs Lengthy conversation >45 min Joseph Ceballos MD [facility] 02-26-2023 History of Presen t illness Narrative Alejandra Cedeno is a 22 year old female who presents for problem visit of amenorrhea for 1 month(s). HPI: Pt. Went to family practice for missed period and symptoms of cramping, bloating, mood changes, heartburn, and dry mouth. Had Liletta IUD placed in August 2020 with Garrett DAVID. Used to have regular light periods with Liletta. Recently increased Prozac dosage. OB History No obstetric history on file. Floor Sweeper History LMP: 01/15/2023 (Exact Date), IUD Age at Menarche: Age at First : Age at Menopause: Floor Sweeper History Comments: Sexual Activity: Yes; Male Contraception: I.U.D. PAST MEDICAL HISTORY Diagnosis Date Anorexia nervosa Anxiety Bipolar 1 disorder (HCC) Depression Scoliosis TOS (thoracic outlet syndrome) bilateral Urticaria PAST SURGICAL HISTORY Procedure Laterality Date EXCISION FIRST AND/OR CERVICAL RIB Right 2015 EXTRACTION ERUPTED TOOTH/EXR SHOULDER SURGERY HX Right 2016 SHOULDER SURGERY HX Left 2020 x2 FAMILY HISTORY Problem Relation Age of Onset other (ovarian cysts) Mother 45 oopherectomy Heart Brother 21 Diabetes Maternal Grandmother Hypertension Maternal Grandfather Social History Tobacco Use Smoking status: Former Types: Cigarettes Smokeless tobacco: Never Vaping Use Vaping Use: Former Substances: Nicotine Substance Use Topics Alcohol use: Yes Drug use: No Current Outpatient Medications Medication Sig lamoTRIgine (LAMICTAL) 150 mg tablet Take 1 tablet by mouth every 12 (twelve) hours. benztropine (COGENTIN) 0.5 mg tablet Take 1 tablet by mouth every 12 (twelve) hours. ARIPiprazole (ABILIFY) 15 mg tablet Take 1 Tablet By Oral Route 1 time per day levonorgestrel (LILETTA) 20.4 mcg/24 hrs (8 yrs) 52 mg IUD by INTRAUTERINE route. FLUoxetine (PROZAC) 20 mg capsule Take 1 capsule (20 mg) by mouth daily + 1 capsule of 10mg daily (total 30mg pills) FLUoxetine (PROZAC) 10 mg capsule Take 1 capsule (10 mg) by mouth daily + 1 capsule of 20mg daily (total 30mg) BIOTIN ORAL Take by mouth. ergocalciferol 50,000 unit capsule (VITAMIN D2, DRISDOL) Take 50,000 Units by mouth one time a week. (Patient not taking: Reported on 02/26/2023) Doxepin 3 mg tab Take 6 mg by mouth daily at bedtime. (Patient not taking: Reported on 02/26/2023) lidocaine (SALONPAS) 4 % patch Apply 1 Patch as directed once daily. (Patient not taking: Reported on 08/16/2020) mirtazapine (REMERON) 30 mg tablet Take 30 mg by mouth daily at bedtime. (Patient not taking: Reported on 02/26/2023) venlafaxine ER (EFFEXOR XR) 75 mg 24 hr capsule Take 150 mg by mouth once daily. (Patient not taking: Reported on 02/26/2023) busPIRone (BUSPAR) 15 mg tablet Take 15 mg by mouth twice daily. (Patient not taking: Reported on 02/26/2023) melatonin 3 mg tablet Take 3 mg by mouth at bedtime as needed. (Patient not taking: Reported on 02/26/2023) Drospirenone-Ethinyl Estradiol 3-0.03 mg per tablet Take 1 tablet by mouth once daily. (Patient not taking: Reported on 02/26/2023) No current facility-administered medications for this visit. Allergies As of Date: 02/26/2023 Allergen Noted Reaction POTATO 06/24/2016 Rash and Hives SEASONAL ALLERGIES 02/18/2018 Other: See Comments Fully Assessed 02/26/2023 REVIEW OF SYSTEMS Abdomen: No early satiety or increased flatulence. No abdominal pain, nausea, vomiting, diarrhea, or constipation. +bloating and indigestion Expanded ROS: PSYCH: Negative for sleep disturbance, mood disorder and recent psychosocial stressors NEURO: No history of headaches, syncope, paralysis, seizures or tremors +bipolar type1 Allergies and current medication updated:Yes EXAM: BP 112/64 Ht 5' 7 (1.70m) Wt 163 lb (73.9kg) LMP 01/15/2023 BMI 25.52 kg/(m^2). GENERAL: pleasant, female in no apparent distress HEENT: Normocephalic, atraumatic, mucus membranes moist, and no lesions NECK: Supple, full range of motion, no adenopathy, and thyroid normal DERMATOLOGY: Normal, without lesions, non-icteric, and non-hirsute BREAST: deferred CHEST: Normal inspiratory effort ABDOMEN: Deferred PELVIC: deferred BIMANUAL: deferred NEURO: alert and oriented x3,exam grossly non-focal EXTREMITIES: normal ASSESSMENT/PLAN: 1. Secondary amenorrhea - ICD9: 626.0, ICD10: N91.1 Reviewed mechanism of action of the IUD and symptoms most likely due to recent medication change Pt states that she is mentally doing well today APRN. LUI Cruz APRN.CNP Medical Decision Making: Problems: Low: Acute, uncomplicated illness or injury Risk: Low: Low risk from testing/treatment Medical Decision Making Level: 3 - Low documented in this encounter [facility] Evaluation note Diagnosis Secondary amenorrhea- Primary Absence of menstruation [facility] Diagnosis Irregular menses- Primary Irregular menstrual cycle Intolerance to cold Other general symptoms documented in this encounter [facility] note* Diagnosis Encounter for IUD removal- Primary Encounter for removal of intrauterine contraceptive device documented in this encounter [facility] note* Diagnosis Encounter for IUD removal- Primary Encounter for removal of intrauterine contraceptive device documented in this encounter [facility] note* Diagnosis Encounter for gynecological examination (general) (routine) without abnormal findings- Primary Attempting to conceive documented in this encounter [facility] note* Diagnosis with uncertain dates, antepartum- Primary state, incidental 6 weeks gestation of state, incidental Threatened miscarriage Threatened , unspecified as to episode of care Bipolar 2 disorder (HCC) Other bipolar disorders Anorexia nervosa Anxiety Anxiety state, unspecified Depression, unspecified depression type Cholinergic urticaria Encounter for supervision of high risk in first trimester, antepartum documented in this encounter [facility] for referral (narrative)* Outpatient Procedure (Routine) - Pending Review Specialty Diagnoses / Procedures Referred By Jose Roberto rowley Referred To Contact [facility] Diagnoses Encounter for IUD removal Procedures REMOVE INTRAUTERINE DEVICE REMOVE INTRAUTERINE DEVICE Dell Alonso MD [address] [place] [address] [address] [id number] [address] Referral ID Status Reason Start Date Expiration Date Visits Requested Visits Authorized [id number] Pending Review Auto-Generat ed Referral 01/18/2024 01/17/2025 1 1 [facility] for referral (narrative)* Outpatient Procedure (Routine) - New Request Specialty Diagnoses / Procedures Referred By Jose Roberto rowley Referred To Contact [facility] Diagnoses Encounter for IUD removal Procedures REMOVE INTRAUTERINE DEVICE REMOVE INTRAUTERINE DEVICE Joseph Ceballos MD [address] [place] [address] [address] Referral ID Status Reason Start Date Expiration Date Visits Requested Visits Authorized [id number] New Request Auto-Generat ed Referral 05/11/2025 1 1 [facility] Summary Purpose Family History No Family History Records FoundNo Family History Records FoundNo Family History Records FoundNo Family History Records FoundNo Family History Records Found Advance Directives No Advanced Directives Records FoundLatest Code Status on File Code Status Date Activated Date Inactivated Comments Full Code 06/05/2020 5:11 PM Additional Source Comments INFORMATION SOURCE (unrecogn ized section and content) DATE CREATED AUTHOR 03/19/2020 [facility] DATE CREATED AUTHOR AUTHOR'S ORGANIZ ATION 06/12/2020 [facility] DATE CREATED AUTHOR AUTHOR'S ORGANIZ ATION 08/25/2024 [facility] DATE CREATED AUTHOR AUTHOR'S ORGANIZ ATION 12/22/2024 [facility] DATE CREATED AUTHOR AUTHOR'S ORGANIZ ATION 12/27/2024 [facility] Source Comments (unrecognize d section and content) In the event this informatio n is protected by the Federal Confidentiality of Alcohol and Drug Abuse Patient Records regulations: The Federal rules restrict any use of the information to criminally investigate or prosecute any alcohol or drug abuse patient.[facility] the event this information is protected by the Federal Confidentiality of Alcohol and Drug Abuse Patient Records regulations: The Federal rules restrict any use of the information to criminally investigate or prosecute any alcohol or drug abuse patient.[facility] the event this information is protected by the Federal Confidentiality of Alcohol and Drug Abuse Patient Records regulations: The Federal rules restrict any use of the information to criminally investigate or prosecute any alcohol or drug abuse patient.[facility] the event this information is protected by the Federal Confidentiality of Alcohol and Drug Abuse Patient Records regulations: The Federal rules restrict any use of the information to criminally investigate or prosecute any alcohol or drug abuse patient.[facility] the event this information is protected by the Federal Confidentiality of Alcohol and Drug Abuse Patient Records regulations: The Federal rules restrict any use of the information to criminally investigate or prosecute any alcohol or drug abuse patient.[facility] the event this information is protected by the Federal Confidentiality of Alcohol and Drug Abuse Patient Records regulations: The Federal rules restrict any use of the information to criminally investigate or prosecute any alcohol or drug abuse patient.[facility]In the event this information is protected by the Federal Confidentiality of Alcohol and Drug Abuse Patient Records regulations: The Federal rules restrict any use of the information to criminally investigate or prosecute any alcohol or drug abuse patient.[facility] the event this information is protected by the Federal Confidentiality of Alcohol and Drug Abuse Patient Records regulations: The Federal rules restrict any use of the information to criminally investigate or prosecute any alcohol or drug abuse patient.[facility] the event this information is protected by the Federal Confidentiality of Alcohol and Drug Abuse Patient Records regulations: The Federal rules restrict any use of the information to criminally investigate or prosecute any alcohol or drug abuse patient.[facility] HospitalIn the event this information is protected by the Federal Confidentiality of Alcohol and Drug Abuse Patient Records regulations: The Federal rules restrict any use of the information to criminally investigate or prosecute any alcohol or drug abuse patient.[facility]In the event this information is protected by the Federal Confidentiality of Alcohol and Drug Abuse Patient Records regulations: The Federal rules restrict any use of the information to criminally investigate or prosecute any alcohol or drug abuse patient.[facility] HospitalIn the event this information is protected by the Federal Confidentiality of Alcohol and Drug Abuse Patient Records regulations: The Federal rules restrict any use of the information to criminally investigate or prosecute any alcohol or drug abuse patient.[facility] Reason for Visit (unrecogniz ed section and content) Reason Comments Establish Care Having sym ptoms- mood swings- missed menses- heartburn- cramps- bloating Reason Comments Discussion Reason Comments Orders Reason Onset Date Comments IUD Removal 05/11/2024 Specialty Diagnoses / Procedures Referred By Jose Roberto rowley Referred To Contact [facility] Diagnoses Encounter for IUD removal Encounter for insertion of intrauterine contraceptive device Procedures REMOVE INTRAUTERINE DEVICE REMOVE INTRAUTERINE DEVICE LEVONORGESTREL IU 52MG 3 YR INSERT INTRAUTERINE DEVICE Dell Alonso MD [address] [place] [address] [facility] [address] [place] [address] Referral ID Status Reason Start Date Expiration Date Visits Requested Visits Authorized [id number] Authorized Auto-Generat ed Referral 01/19/2024 05/31/2024 2 2 Reason Comments Well Woman Reason Comments Initial OB Visit Reason Comments Transferred Care Reason Comments Appointment Care Teams (unrecognized sec tion and content) Structural Engineering Drafting Officer Relationship Specialty Start Date End Date Bertha Wood [address] [place] [address] PCP - General Family Medicine 06/28/20 Marie Carrillo DO Orthopedics 01/29/16 Structural Engineering Drafting Officer Relationship Specialty Start Date End Date Bertha Wood [address] [place] [address] PCP - General Family Medicine 06/28/20 Marie Carrillo DO Orthopedics 01/29/16 Structural Engineering Drafting Officer Relationship Specialty Start Date End Date Bertha Wood [address] [place] [address] PCP - General Family Medicine 06/28/20 Marie Carrillo DO Orthopedics 01/29/16 Structural Engineering Drafting Officer Relationship Specialty Start Date End Date Bertha Wood [address] [place] [address] PCP - General Family Medicine 06/28/20 Marie Carrillo DO Orthopedics 01/29/16 Structural Engineering Drafting Officer Relationship Specialty Start Date End Date Bertha Wood [address] [place] [address] PCP - General Family Medicine 06/28/20 Marie Carrillo DO Orthopedics 01/29/16 Structural Engineering Drafting Officer Relationship Specialty Start Date End Date Bertha Wood [address] [place] [address] PCP - General Family Medicine 06/28/20 Marie Carrillo DO Orthopedics 01/29/16 Structural Engineering Drafting Officer Relationship Specialty Start Date End Date Bertha Wood [address] [place] [address] PCP - General Family Medicine 06/28/20 Marie Carrillo DO Orthopedics 01/29/16 Structural Engineering Drafting Officer Relationship Specialty Start Date End Date Bertha Wood [address] [place] [address] PCP - General Family Medicine 06/28/20 Marie Carrillo DO Orthopedics 01/29/16 Structural Engineering Drafting Officer Relationship Specialty Start Date End Date Bertha Wood [address] [place] [address] PCP - General Family Medicine 06/28/20 Marie Carrillo DO Orthopedics 01/29/16 Structural Engineering Drafting Officer Relationship Specialty Start Date End Date Bertha Wood [address] [place] [address] PCP - General Family Medicine 06/28/20 Marie Carrillo DO Orthopedics 01/29/16 FOR RECORDS PERTAINING TO PATIENTS WHO ARE OR HAVE BEEN ENROLLED IN A CHEMICAL DEPENDENCY/SUBSTANCEABUSE PROGRAM, SOME INFORMATION MAY BE OMITTED. This clinical summary was aggregated from multiple sources. Caution should be exercised in using it in the provision of clinical care. This summary normalizes information from multiple sources, and as a consequence, information in this document may materially change the coding, format and clinical context of patient data. In addition, data may be omitted in some cases. CLINICAL DECISIONS SHOULD BE BASED ON THE PRIMARY CLINICAL RECORDS. [employer]. provides no warranty or guarantee of the accuracy or completeness of information in this document.
[2024-12-29 09:48] LABS: 24HR. UA Prot. Total Volume 3150 mL; 24Hr UA Prot. Collection Time 24.0 HOURS (24.0); Creatinine Serum Creat 0.6 mg/dL (0.6-1.0); Urine Protein (24 Hour) < 6.0 mg/dL (<11.9)
== END | disposition home or self-care (01) ==
LOC: LABSPEC 08:39
PROVIDERS: PCP Family Medicine; Referring Provider Obstetrics & Gynecology; Visit Provider Obstetrics & Gynecology
DX: O12.12 Gestational proteinuria, second trimester (principal); O09.92 Supervision of high risk pregnancy, unspecified, second trimester; Z3A.00 Weeks of gestation of pregnancy not specified
CPT/HCPCS: 81050; 82565; 82575

== ENCOUNTER → 2025-01-24 | Outpatient (CLI) | payer BC, SELFPAY ==
[2025-01-24 15:39] LABS: Hematocrit 33.7 % (37-47); Hemoglobin 11.7 g/dL (12.0-15.0); Immature Granulocytes Count 0.090 X10^3/uL (0.0-0.0); Mean Corp Hgb Conc 34.7 g/dL (32-36); Mean Corpuscular Volume 89.9 fL (81-99); Mean Platelet Vol. 10.7 fl (6.2-12.0); NRBC Flagged by Analyzer 0 % (0-5); Platelet Count 240 K/mm3 (150-450); RBC Distribution Width CV 12.7 % (11.6-14.6); RBC Distribution Width SD 41.4 fl (35.1-43.9); Red Blood Count 3.75 M/mm3 (4.2-5.4); White Blood Count 10.1 K/mm3 (4.4-11.0)
[2025-01-24 16:52] LABS: Glucose Challenge Gest 1H 50g 151 mg/dL (70-140); HIV Nonreactive (Nonreactive); Syphilis Antibodies Nonreactive (Nonreactive)
== END | disposition home or self-care (01) ==
PROVIDERS: Advanced Practice Midwife; PCP Family Medicine; Referring Provider Obstetrics & Gynecology; Visit Provider Obstetrics & Gynecology
DX: O26.892 Other specified pregnancy related conditions, second trimester (principal); Z67.91 Unspecified blood type, Rh negative; O09.92 Supervision of high risk pregnancy, unspecified, second trimester; Z3A.00 Weeks of gestation of pregnancy not specified; Z13.1 Encounter for screening for diabetes mellitus
CPT/HCPCS: 36415; 82950; 85025; 86703; 86780; 86850; 86900; 86901

== ENCOUNTER → 2025-02-01 | Outpatient (CLI) | payer BC, SELFPAY ==
--- OUTSIDE RECORDS SUMMARY | 2025-02-01 06:56 | XMS RPT_ITS | CCD ---
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 By: #### L 400.0001 #### [facility] [address] [place], [address] IG% 0.500 Normal 0.0-0.9 [facility] Comment on above: Result Comment: IG% - Immature Granulocytes (promyelocytes, myelocytes and metamyelocytes) > 1% indicates that a LEFT SHIFT is Present. Performed By: #### L 400.0001 #### [facility] [address] [place], [address] Lymphocytes/100 WBC (Bld) 12.0 % Low 19-41 [facility] Comment on above: Performed By: #### L 400.0001 #### [facility] [address] [place], [address] MCH (RBC) [Entitic mass] 32.2 pg High 27.0-32.0 [facility] Comment on above: Performed By: #### L 400.0001 #### [facility] [address] [place], [address] MCHC (RBC) [Mass/Vol] 35.2 g/dL Normal 32-36 [facility] Comment on above: Performed By: #### L 400.0001 #### [facility] [address] [place], [address] MCV (RBC) [Entitic vol] 91.4 fL Normal 81-99 [facility] Comment on above: Performed By: #### L 400.0001 #### [facility] [address] [place], [address] Monocytes/100 WBC (Bld) 6.2 % Normal 0-10 [facility] Comment on above: Performed By: #### L 400.0001 #### [facility] [address] [place], [address] Neutrophils/100 WBC (Bld) 80.3 % High 47-70 [facility] Comment on above: Performed By: #### L 400.0001 #### [facility] [address] [place], [address] Nucleated RBC (Bld) [#/Vol] 0 10*3/uL Normal 0-5 [facility] Comment on above: Performed By: #### L 400.0001 #### [facility] [address] [place], [address] Platelet mean volume (Bld) [Entitic vol] 10.4 fL Normal 6.2-12.0 [facility] Comment on above: Performed By: #### L 400.0001 #### [facility] [address] [place], [address] Platelets (Bld) [#/Vol] 233 10*3/uL Normal 150-450 [facility] Comment on above: Performed By: #### L 400.0001 #### [facility] [address] [place], [address] RBC (Bld) [#/Vol] 3.70 10*6/uL Low 4.2-5.4 [facility] Comment on above: Performed By: #### L 400.0001 #### [facility] [address] [place], [address] RDW SD 42.2 fl Normal 35.1-43.9 [facility] Comment on above: Performed By: #### L 400.0001 #### [facility] [address] [place], [address] WBC (Bld) [#/Vol] 10.9 10*3/uL Normal 4.4-11.0 [facility] Comment on above: Performed By: #### L 400.0001 #### [facility] [address] [place], [address] Comprehensive Metabolic Prof [facility] 12-26-2024 Albumin [Mass/Vol] 3.5 g/dL Normal 3.5-5.0 [facility] Comment on above: Performed By: #### L 509.8002, L501.0250, BTS, L100.0100, L3890.6006 #### [facility] [address] [place], [address] Albumin/Globulin [Mass ratio] 1.1 {ratio} Normal 0.9-2.4 [facility] Comment on above: Performed By: #### L 509.8002, L501.0250, BTS, L100.0100, L3890.6006 #### [facility] [address] [place], [address] ALK PHOS 67 U/L Normal 35-104 [facility] Comment on above: Performed By: #### L 509.8002, L501.0250, BTS, L100.0100, L3890.6006 #### [facility] [address] [place], [address] ALT [Catalytic activity/Vol] 9 U/L Normal <=34 [facility] Comment on above: Performed By: #### L 509.8002, L501.0250, BTS, L100.0100, L3890.6006 #### [facility] [address] [place], [address] AST [Catalytic activity/Vol] 15 U/L Normal <=31 [facility] Comment on above: Performed By: #### L 509.8002, L501.0250, BTS, L100.0100, L3890.6006 #### [facility] [address] [place], [address] Bilirubin [Mass/Vol] 0.18 mg/dL Normal 0.00-1.30 [facility] Comment on above: Performed By: #### L 509.8002, L501.0250, BTS, L100.0100, L3890.6006 #### [facility] [address] [place], [address] BUN/CRE 10.2 RATIO Normal 10-20 [facility] Comment on above: Performed By: #### L 509.8002, L501.0250, BTS, L100.0100, L3890.6006 #### [facility] [address] [place], [address] Calcium [Mass/Vol] 9.4 mg/dL Normal 7.6-11.0 [facility] Comment on above: Performed By: #### L 509.8002, L501.0250, BTS, L100.0100, L3890.6006 #### [facility] [address] [place], [address] Chloride [Moles/Vol] 103 mmol/L Normal 98-108 [facility] Comment on above: Performed By: #### L 509.8002, L501.0250, BTS, L100.0100, L3890.6006 #### [facility] [address] [place], [address] CO2 [Moles/Vol] 21.3 mmol/L Normal 21.0-32.0 [facility] Comment on above: Performed By: #### L 509.8002, L501.0250, BTS, L100.0100, L3890.6006 #### [facility] [address] [place], [address] Creatinine [Mass/Vol] 0.50 mg/dL Low 0.70-1.20 [facility] Comment on above: Performed By: #### L 509.8002, L501.0250, BTS, L100.0100, L3890.6006 #### [facility] [address] [place], [address] GAP 11 Normal 5-15 [facility] Comment on above: Performed By: #### L 509.8002, L501.0250, BTS, L100.0100, L3890.6006 #### [facility] [address] [place], [address] GFR/1.73 sq M.predicted among non-blacks MDRD (S/P/Bld) [Vol rate/Area] 135 mL/min/{1.73_m2} Normal >60 [facility] Comment on above: Result Comment: mL/m in/1.73m2 CKD-EPI Creatinine Equation (2020) Performed By: #### L 509.8002, L501.0250, BTS, L100.0100, L3890.6006 #### [facility] [address] [place], [address] Globulin (S) [Mass/Vol] 3.1 g/dL Normal 2.2-4.2 [facility] Comment on above: Performed By: #### L 509.8002, L501.0250, BTS, L100.0100, L3890.6006 #### [facility] [address] [place], [address] Glucose [Mass/Vol] 98 mg/dL Normal 70-99 [facility] Comment on above: Performed By: #### L 509.8002, L501.0250, BTS, L100.0100, L3890.6006 #### [facility] [address] [place], [address] Potassium [Moles/Vol] 3.9 mmol/L Normal 3.3-5.1 [facility] Comment on above: Performed By: #### L 509.8002, L501.0250, BTS, L100.0100, L3890.6006 #### [facility] [address] [place], [address] Sodium [Moles/Vol] 136 mmol/L Normal 133-145 [facility] Comment on above: Performed By: #### L 509.8002, L501.0250, BTS, L100.0100, L3890.6006 #### [facility] [address] [place], [address] T PROT 6.5 g/dL Normal 5.9-8.4 [facility] Comment on above: Performed By: #### L 509.8002, L501.0250, BTS, L100.0100, L3890.6006 #### [facility] [address] [place], [address] Urea nitrogen [Mass/Vol] 5 mg/dL Normal 4-19 [facility] Comment on above: Performed By: #### L 509.8002, L501.0250, BTS, L100.0100, L3890.6006 #### [facility] [address] [place], [address] [employer] Office Visit Reporton 12-26-2024 [employer]ante[employer] Office Visit Report [facility]'[address], [address] [place] [address] OFFICE VISIT Date of Service: 12/26/24 MR#: [id number] Acct: [id number] Name: ALEJANDRA KIRAN Rep #: [id number] : 2000 Provider: Dr. 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 ??-???- (more content not included)... Normal [facility] Protein+Creatinine Ratio,Uri neon 12-26-2024 PROT:CRE RATIO 315 mg/g CRE High 0-200 [facility] Comment on above: Performed By: #### L 400.0001 #### [facility] [address] [place], [address] Protein (U) [Mass/Vol] 8.4 mg/dL Normal 0.0-12.0 [facility] Comment on above: Performed By: #### L 400.0001 #### [facility] [address] [place], [address] UR CREAT 26.60 mg/dL Low 28.00-217.00 [facility] Comment on above: Performed By: #### L 400.0001 #### [facility] [address] [place], [address] Urine Cultureon 12-08-2024 [facility] Mixed Gram Positive Organisms [place] Count 25,000-50,000 MIXC Mixed contaminants. Submit a new specimen if indicated. Normal [facility] Comment on above: Performed By: #### L 400.0001 #### [facility] [address] [place], [address] [employer]ante[employer] Manager Office Visit Reporton 12-07-2024 Canteen Manager Office Visit Report [facility] [address], [address] [place] [address] OFFICE VISIT Date of Service: 12/07/24 MR#: [id number] Acct: [id number] Name: ALEJANDRA KIRAN Rep #: [id number] : 2000 Provider: Dr. Flory Davis DO Age/Sex: 24/F Location: [facility] Status: Signed Intake Vital Signs 10/13/24 14:41 12/06/24 16:18 12/07/24 14:44 Height 5 ft 7 in 5 ft 7 in 5 ft 7 in Weight: 215 lb BMI 33.6 BP 106/74 Intake Visit Reasons: 21wk ob Options Trader Required: No Is patient in pain?: No Allergies No Known Allergies Allergy (Verified 12/07/24 14:49) Medications ???Medication ???Instructions ???Recorded ???Confirmed ???Type docosahexaenoic acid 200 mg 200 mg PO DAILY 08/12/24 12/07/24 History capsule ( DHA) fluoxetine 40 mg capsule (Prozac) 60 mg PO QDAY 08/12/24 12/07/24 H istory levocetirizine 5 mg tablet 5 mg PO QDAY 08/12/24 12/07/24 His maia lurasidone 20 mg tablet (Latuda) 20 mg PO QDAY 08/12/24 12/07/24 Hi story ondansetron 4 mg disintegrating 4 mg PO Q8H PRN nausea and 5 12/07/24 Rx tablet vomiting #30 tabs promethazine 12.5 mg tablet 12.5 mg PO Q6H PRN nausea and 06/2512/07/24 Rx vomiting 30 days #120 tabs prochlorperazine [...] physical activity do you participate in: none puma/confucianism: Oriental Orthodox seatbelt use: always do you feel safe at home: Yes 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 (more content not included)... Normal [facility] CBC W/Diff, Automatedon 07-0 8-2024 Absolute Lymph 1.34 X10 3/uL Normal 0.83-4.51 [facility] Comment on above: Performed By: #### L 500.4050, L100.0100 ####[facility] [address] [place], [address] Absolute Neut 8.6 X10 3/uL High 2.0-7.7 [facility] Comment on above: Performed By: #### L 500.4050, L100.0100 ####[facility] [address] [place], [address] Basophils/100 WBC (Bld) 0.2 % Normal 0-1 [facility] Comment on above: Performed By: #### L 500.4050, L100.0100 ####[facility] [address] [place], [address] Eosinophils/100 WBC (Bld) 0.7 % Normal 0-5 [facility] Comment on above: Performed By: #### L 500.4050, L100.0100 ####[facility] [address] [place], [address] Erythrocyte distribution width (RBC) [Ratio] 13.1 % Normal 11.6-14.6 [facility] Comment on above: Performed By: #### L 500.4050, L100.0100 ####[facility] [address] [place], [address] Hematocrit (Bld) [Volume fraction] 34.3 % Low 37-47 [facility] Comment on above: Performed By: #### L 500.4050, L100.0100 ####[facility] [address] [place], [address] Hemoglobin (Bld) [Mass/Vol] 11.9 g/dL Low 12.0-15.0 [facility] Comment on above: Performed By: #### L 500.4050, L100.0100 ####[facility] [address] [place], [address] IG% 0.600 Normal 0.0-0.9 [facility] Comment on above: Result Comment: IG% - Immature Granulocytes (promyelocytes, myelocytes and metamyelocytes) > 1% indicates that a LEFT SHIFT is Present. Performed By: #### L 500.4050, L100.0100 ####[facility] [address] [place], [address] Lymphocytes/100 WBC (Bld) 12.4 % Low 19-41 [facility] Comment on above: Performed By: #### L 500.4050, L100.0100 ####[facility] [address] [place], [address] MCH (RBC) [Entitic mass] 32.3 pg High 27.0-32.0 [facility] Comment on above: Performed By: #### L 500.4050, L100.0100 ####[facility] [address] [place], [address] MCHC (RBC) [Mass/Vol] 34.7 g/dL Normal 32-36 [facility] Comment on above: Performed By: #### L 500.4050, L100.0100 ####[facility] [address] [place], [address] MCV (RBC) [Entitic vol] 93.2 fL Normal 81-99 [facility] Comment on above: Performed By: #### L 500.4050, L100.0100 ####[facility] [address] [place], [address] Monocytes/100 WBC (Bld) 6.9 % Normal 0-10 [facility] Comment on above: Performed By: #### L 500.4050, L100.0100 ####[facility] [address] [place], [address] Neutrophils/100 WBC (Bld) 79.2 % High 47-70 [facility] Comment on above: Performed By: #### L 500.4050, L100.0100 ####[facility] [address] [place], [address] Nucleated RBC (Bld) [#/Vol] 0 10*3/uL Normal 0-5 [facility] Comment on above: Performed By: #### L 500.4050, L100.0100 ####[facility] [address] [place], [address] Platelet mean volume (Bld) [Entitic vol] 10.6 fL Normal 6.2-12.0 [facility] Comment on above: Performed By: #### L 500.4050, L100.0100 ####[facility] [address] [place], [address] Platelets (Bld) [#/Vol] 246 10*3/uL Normal 150-450 [facility] Comment on above: Performed By: #### L 500.4050, L100.0100 ####[facility] [address] [place], [address] RBC (Bld) [#/Vol] 3.68 10*6/uL Low 4.2-5.4 [facility] Comment on above: Performed By: #### L 500.4050, L100.0100 ####[facility] [address] [place], [address] RDW SD 44.2 fl High 35.1-43.9 [facility] Comment on above: Performed By: #### L 500.4050, L100.0100 ####[facility] [address] [place], [address] WBC (Bld) [#/Vol] 10.8 10*3/uL Normal 4.4-11.0 [facility] Comment on above: Performed By: #### L 500.4050, L100.0100 ####[facility] [address] [place], [address] Comprehensive Metabolic Prof idon 12-06-2024 Albumin [Mass/Vol] 3.4 g/dL Low 3.5-5.0 [facility] Comment on above: Performed By: #### L 500.4050, L100.0100 ####[facility] [address] [place], [address] Albumin/Globulin [Mass ratio] 1.1 {ratio} Normal 0.9-2.4 [facility] Comment on above: Performed By: #### L 500.4050, L100.0100 ####[facility] [address] [place], [address] ALK PHOS 70 U/L Normal 35-104 [facility] Comment on above: Performed By: #### L 500.4050, L100.0100 ####[facility] [address] [place], [address] ALT [Catalytic activity/Vol] 10 U/L Normal <=34 [facility] Comment on above: Performed By: #### L 500.4050, L100.0100 ####[facility] [address] [place], [address] AST [Catalytic activity/Vol] 17 U/L Normal <=31 [facility] Comment on above: Performed By: #### L 500.4050, L100.0100 ####[facility] [address] [place], [address] BUN/CRE 7.7 RATIO Low 10-20 [facility] Comment on above: Performed By: #### L 500.4050, L100.0100 ####[facility] [address] [place], [address] Calcium [Mass/Vol] 8.9 mg/dL Normal 7.6-11.0 [facility] Comment on above: Performed By: #### L 500.4050, L100.0100 ####[facility] [address] [place], [address] Chloride [Moles/Vol] 104 mmol/L Normal 98-108 [facility] Comment on above: Performed By: #### L 500.4050, L100.0100 ####[facility] [address] [place], [address] CO2 [Moles/Vol] 23.0 mmol/L Normal 21.0-32.0 [facility] Comment on above: Performed By: #### L 500.4050, L100.0100 ####[facility] [address] [place], [address] Creatinine [Mass/Vol] 0.52 mg/dL Low 0.70-1.20 [facility] Comment on above: Performed By: #### L 500.4050, L100.0100 ####[facility] [address] [place], [address] ECRCL 199.56 ml/min Normal 50-250 [facility] Comment on above: Performed By: #### L 500.4050, L100.0100 ####[facility] [address] [place], [address] GAP 10 Normal 5-15 [facility] Comment on above: Performed By: #### L 500.4050, L100.0100 ####[facility] [address] [place], [address] GFR/1.73 sq M.predicted among non-blacks MDRD (S/P/Bld) [Vol rate/Area] 134 mL/min/{1.73_m2} Normal >60 [facility] Comment on above: Result Comment: mL/m in/1.73m2 CKD-EPI Creatinine Equation (2020) Performed By: #### L 500.4050, L100.0100 ####[facility] [address] [place], [address] Globulin (S) [Mass/Vol] 3.0 g/dL Normal 2.2-4.2 [facility] Comment on above: Performed By: #### L 500.4050, L100.0100 ####[facility] [address] [place], [address] Glucose [Mass/Vol] 94 mg/dL Normal 70-99 [facility] Comment on above: Performed By: #### L 500.4050, L100.0100 ####[facility] [address] [place], [address] Potassium [Moles/Vol] 3.6 mmol/L Normal 3.3-5.1 [facility] Comment on above: Performed By: #### L 500.4050, L100.0100 ####[facility] [address] [place], [address] Sodium [Moles/Vol] 137 mmol/L Normal 133-145 [facility] Comment on above: Performed By: #### L 500.4050, L100.0100 ####[facility] [address] [place], [address] T BILI < 0.15 Normal 0.00-1.30 [facility] Comment on above: Performed By: #### L 500.4050, L100.0100 ####[facility] [address] [place], [address] T PROT 6.5 g/dL Normal 5.9-8.4 [facility] Comment on above: Performed By: #### L 500.4050, L100.0100 ####[facility] [address] [place], [address] Urea nitrogen [Mass/Vol] 4 mg/dL Normal 4-19 [facility] Comment on above: Performed By: #### L 500.4050, L100.0100 ####[facility] [address] [place], [address] Emergency Department Summary on 12-06-2024 Emergency Department Summary [facility] Medical Records Department [address] [place] [address] Emergency Department Summary 12/06/24 MR#: [id number] Acct: [id number] Name: ALEJANDRA KIRAN Rep #: [id number] : 2000 24 From: Markie Quiros DO PCP: Dr. Sundeep Conde, DO Status:REG ER Location: ED HPI History of Present Illness Chief Complaint: Nausea/Vomiting Narrative Narrative: Chief complaint and HPI: Nausea and vomiting. 24-year-old female who is G1, P0 at 21 weeks presents for evaluation of nausea and vomiting. Patient follows with [facility]. Patient states yesterday she developed nausea and vomiting. States she has been taking p.o. Zofran, prochlorperazine, and promethazine with some improvement. States her nausea and vomiting continued today in which she feels dehydrated. 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 Normal [facility] Urinalysis, Completeon 12-06 AMORPHOUS 1+ Normal [facility] Comment on above: Order Comment: CLEAN CATCH Performed By: #### L 400.0001 #### [facility] [address] [place], [address] BACTERIA 1+ /hpf Normal None Seen [facility] Comment on above: Order Comment: CLEAN CATCH Performed By: #### L 400.0001 #### [facility] [address] [place], [address] EPI,SQUAMOUS 10-25 SEEN Normal 5-10 [facility] Comment on above: Order Comment: CLEAN CATCH Performed By: #### L 400.0001 #### [facility] [address] [place], [address] RBC 0-5 SEEN Normal 0-5 [facility] Comment on above: Order Comment: CLEAN CATCH Performed By: #### L 400.0001 #### [facility] [address] [place], [address] WBC 10-25 SEEN Normal 0-5 [facility] Comment on above: Order Comment: CLEAN CATCH Performed By: #### L 400.0001 #### [facility] [address] [place], [address] Mucus Ql (Urine sed) 0 SEEN Normal [facility] Comment on above: Order Comment: CLEAN CATCH Performed By: #### L 400.0001 #### [facility] [address] [place], [address] Canteen Manager Office Visit Reporton 11-09-2024 Canteen Manager Office Visit Report [facility] [address], [address] [place] [address] OFFICE VISIT Date of Service: 11/09/24 MR#: [id number] Acct: [id number] Name: ALEJANDRA KIRAN Rep #: [id number] : 2000 Provider: JEREMIE colorado Age/Sex: 24/F Location: [facility] Status: Signed Intake Vital Signs 08/24/24 15:06 11/04/24 08:11 11/09/24 15:30 Height 5 ft 7 in 5 ft 7 in 5 ft 7 in Weight: 207 lb 4 oz BMI 32.4 BP 118/84 H Intake Visit Reasons: 19wk ob, repeat chlamydia test Chief Complaint: 19 Week OB Options Trader Required: No Is patient in pain?: No [...] 0 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 (more content not included)... Normal [facility] Chlamydia/GC SANTY aptimaon CHLAMY,NUC ACID Negative Normal Negative [facility] Comment on above: Performed By: #### L 7000.1800 ####[facility] [address] [place], [place], [id number] GC BY NUC ACID Negative Normal Negative [facility] Comment on above: Result Comment: Perf ormed at: =G - [facility] [address] [place] [id number] Chargemaster Specialist: Monisha Ross MD, Phone: [phone] Performed By: #### L 7000.1800 ####[facility] [address] [place], [place], [phone] Canteen Manager Office Visit Reporton 11-04-2024 Canteen Manager Office Visit Report [address], [address] [place] [address] OFFICE VISIT Date of Service: 11/04/24 MR#: [id number] Acct: [id number] Name: ALEJANDRA KIRAN Rep #: [id number] : 2000 Provider: RENUKA goldman Age/Sex: 24/F Location: [facility] Status: Signed with Addenda ADDENDUM by Debbie Kumar on 11/04/24 at 0912 Office Procedure Documentation entered by Debbie Kumar 11/04/24 09:12: Injections Is this a patient provided medication?: Yes Office Meds RhoGAM Ultra-Filtered PLUS 1,500 unit (300 mcg) intramuscular syringe Performing Provider: Angela Vigil CNM Performing Location: [facility] Administered by: Debbie Kumar on 11/04/24 09:11 Dose Route Admin Location Dispensed Lot Number Expiration Date [facility] Man ufacturer 1,500 unit IM left gluteus 1 ea [id number] 11/01/26 07778-562-93 [employer] Date cc: * Signed Intake Vital Signs 10/19/24 09:50 11/04/24 08:11 11/04/24 08:11 Height 5 ft 7 in 5 ft 7 in 5 ft 7 in Weight: 205 lb BMI 32.1 BP 132/81 H Intake Visit Reasons: spotting needs rhogam Options Trader Required: No Is patient in pain?: No [...] 12.5 mg PO Q6H PRN nausea and 06/2511/04/24 Rx vomiting 30 days #120 tabs [...] physical activity do you participate in: none puma/confucianism: Oriental Orthodox seatbelt use: always do you feel safe at home: Yes 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 Normal [facility] Type AND Screenon 11-04-2024 Ab SCREEN GEL Negative Normal [facility] Comment on above: Order Comment: CLEAN CATCH Performed By: #### L 400.0001 #### [facility] [address] [place], [address] Canteen Manager Office Visit Reporton 10-13-2024 Canteen Manager Office Visit Report [facility] [address], [address] [place] [address] OFFICE VISIT Date of Service: 10/13/24 MR#: [id number] Acct: [id number] Name: ALEJANDRA KIRAN Rep #: [id number] : 2000 Provider: RENUKA Inman ams Age/Sex: 24/F Location: [facility] Status: Signed Intake Vital Signs 08/24/24 15:06 10/05/24 11:58 10/13/24 14:41 Height 5 ft 7 in 5 ft 7 in 5 ft 7 in Weight: 194 lb 8 oz BMI 30.4 BP 123/76 H Intake Visit Reasons: 15wk ob Chief Complaint: 15wk OB Options Trader Required: No Is patient in pain?: No [...] 4 mg PO Q8H PRN nausea and 10/13/24 Rx tablet vomiting #30 tabs promethazine 12.5 mg tablet 12.5 mg PO Q6H PRN nausea and 0406/2510/13/24 Rx vomiting 30 days #120 tabs prochlorperazine [...] 0 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 Normal [facility] Canteen Manager Office Visit Reporton 10-05-2024 Canteen Manager Office Visit Report [facility] [address], [address] [place] [address] OFFICE VISIT Date of Service: 10/05/24 MR#: [id number] Acct: [id number] Name: ALEJANDRA KIRAN Rep #: [id number] : 2000 Provider: Dr. 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 Normal [facility] CBC W/Diff, Automatedon 04-2 Absolute Lymph 1.38 X10 3/uL Normal 0.83-4.51 [facility] Comment on above: Performed By: #### L 3890.6006, L509.8002, L509.4006, BTS, L3890.6301, L100.0100, L3890.6102, L900.0098 ####[facility] [address] [place], [place], [id number] Absolute Neut 9.1 X10 3/uL High 2.0-7.7 [facility] Comment on above: Performed By: #### L 3890.6006, L509.8002, L509.4006, BTS, L3890.6301, L100.0100, L3890.6102, L900.0098 ####[facility] [address] [place], [address] Basophils/100 WBC (Bld) 0.3 % Normal 0-1 [facility] Comment on above: Performed By: #### L 3890.6006, L509.8002, L509.4006, BTS, L3890.6301, L100.0100, L3890.6102, L900.0098 ####[facility] [address] [place], [address] Eosinophils/100 WBC (Bld) 0.8 % Normal 0-5 [facility] Comment on above: Performed By: #### L 3890.6006, L509.8002, L509.4006, BTS, L3890.6301, L100.0100, L3890.6102, L900.0098 ####[facility] [address] [place], [address] Erythrocyte distribution width (RBC) [Ratio] 13.6 % Normal 11.6-14.6 [facility] Comment on above: Performed By: #### L 3890.6006, L509.8002, L509.4006, BTS, L3890.6301, L100.0100, L3890.6102, L900.0098 ####[facility] [address] [place], [address] Hematocrit (Bld) [Volume fraction] 38.6 % Normal 37-47 [facility] Comment on above: Performed By: #### L 3890.6006, L509.8002, L509.4006, BTS, L3890.6301, L100.0100, L3890.6102, L900.0098 ####[facility] [address] [place], [address] Hemoglobin (Bld) [Mass/Vol] 13.3 g/dL Normal 12.0-15.0 [facility] Comment on above: Performed By: #### L 3890.6006, L509.8002, L509.4006, BTS, L3890.6301, L100.0100, L3890.6102, L900.0098 ####[facility] [address] [place], [address] IG% 0.500 Normal 0.0-0.9 [facility] Comment on above: Result Comment: IG% - Immature Granulocytes (promyelocytes, myelocytes and metamyelocytes) > 1% indicates that a LEFT SHIFT is Present. Performed By: #### L 3890.6006, L509.8002, L509.4006, BTS, L3890.6301, L100.0100, L3890.6102, L900.0098 ####[facility] [address] [place], [address] Lymphocytes/100 WBC (Bld) 12.0 % Low 19-41 [facility] Comment on above: Performed By: #### L 3890.6006, L509.8002, L509.4006, BTS, L3890.6301, L100.0100, L3890.6102, L900.0098 ####[facility] [address] [place], [address] MCH (RBC) [Entitic mass] 30.6 pg Normal 27.0-32.0 [facility] Comment on above: Performed By: #### L 3890.6006, L509.8002, L509.4006, BTS, L3890.6301, L100.0100, L3890.6102, L900.0098 ####[facility] [address] [place], [address] MCHC (RBC) [Mass/Vol] 34.5 g/dL Normal 32-36 [facility] Comment on above: Performed By: #### L 3890.6006, L509.8002, L509.4006, BTS, L3890.6301, L100.0100, L3890.6102, L900.0098 ####[facility] [address] [place], [address] MCV (RBC) [Entitic vol] 88.7 fL Normal 81-99 [facility] Comment on above: Performed By: #### L 3890.6006, L509.8002, L509.4006, BTS, L3890.6301, L100.0100, L3890.6102, L900.0098 ####[facility] [address] [place], [address] Monocytes/100 WBC (Bld) 7.5 % Normal 0-10 [facility] Comment on above: Performed By: #### L 3890.6006, L509.8002, L509.4006, BTS, L3890.6301, L100.0100, L3890.6102, L900.0098 ####[facility] [address] [place], [address] Neutrophils/100 WBC (Bld) 78.9 % High 47-70 [facility] Comment on above: Performed By: #### L 3890.6006, L509.8002, L509.4006, BTS, L3890.6301, L100.0100, L3890.6102, L900.0098 ####[facility] [address] [place], [address] Nucleated RBC (Bld) [#/Vol] 0 10*3/uL Normal 0-5 [facility] Comment on above: Performed By: #### L 3890.6006, L509.8002, L509.4006, BTS, L3890.6301, L100.0100, L3890.6102, L900.0098 ####[facility] [address] [place], [address]( Platelet mean volume (Bld) [Entitic vol] 10.6 fL Normal 6.2-12.0 [facility] Comment on above: Performed By: #### L 3890.6006, L509.8002, L509.4006, BTS, L3890.6301, L100.0100, L3890.6102, L900.0098 ####[facility] [address] [place], [address]) Platelets (Bld) [#/Vol] 274 10*3/uL Normal 150-450 [facility] Comment on above: Performed By: #### L 3890.6006, L509.8002, L509.4006, BTS, L3890.6301, L100.0100, L3890.6102, L900.0098 ####[facility] [address] [place], [address] RBC (Bld) [#/Vol] 4.35 10*6/uL Normal 4.2-5.4 [facility] Comment on above: Performed By: #### L 3890.6006, L509.8002, L509.4006, BTS, L3890.6301, L100.0100, L3890.6102, L900.0098 ####[facility] [address] [place], [address](615) RDW SD 44.1 fl High 35.1-43.9 [facility] Comment on above: Performed By: #### L 3890.6006, L509.8002, L509.4006, BTS, L3890.6301, L100.0100, L3890.6102, L900.0098 ####[facility] [address] [facility] [place], [address] WBC (Bld) [#/Vol] 11.5 10*3/uL High 4.4-11.0 [facility] Comment on above: Performed By: #### L 3890.6006, L509.8002, L509.4006, BTS, L3890.6301, L100.0100, L3890.6102, L900.0098 ####[facility] [address] [place], [address] HIVon 09-19-2024 HIV Non-Reactive Normal Nonreactive [facility] Comment on above: Result Comment: Non- Reactive Reactive Repeatedly reactive samples must be confirmed according to CDC recommended confirmatory algorithms. The subresults for either HIVAG or AHIV can be used as an aid in the selection of the confirmation algorithm for reactive samples. Send out specimens with Reactive results to [facility] for confirmation. Order the HIV antibody detection and differentiation: lc#[id number] Performed By: #### L 400.0001 #### [facility] [address] [place], [address] Hepatitis C Antibodyon 09-19 Hepatitis C Ab Non-Reactive Normal Nonreactive [facility] Comment on above: Result Comment: Reac tive: Presumptive evidence of antibodies to HCV. Follow CDC recommendations for supplemental testing. Non-Reactive: Antibodies to HCV were not detected; does not exclude the possibility of exposure to HCV Reactive Results are presumptive evidence of antibodies to HCV. Follow CDC recommendations for supplemental testing. Order confirmation testing: HCV Quant by PCR testing - HCVPCR #[id number] Non Reactive: < 0.8 Equivocal: >/= 0.8 to < 1.0 Reactive: >/= 1.0 The CDC requires that a reactive/equivocal HCV antibody result be sent out for confirmation. HCV Quant by PCR testing. Performed By: #### L 400.0001 #### [facility] [address] [place], [address] L3890.6102on 09-19-2024 HEP B Surf Ag Non-Reactive Normal Nonreactive [facility] Comment on above: Result Comment: Reac tive: Presumptive evidence of HBV. Repeatedly reactive samples must be confirmed using a neutralization test ([employer] HBsAg Confirmatory Test) Non-Reactive: HBsAg not detected; does not exclude the possibility of exposure to HBV Performed By: #### L 400.0001 #### [facility] [address] [place], [address] L509.4006on 09-19-2024 Rubella IgG REAC Normal Nonreactive [facility] Comment on above: Result Comment: Anti body Result: Interpretation Non-Reactive: Non-Immune Reactive: Immune The following results were obtained with the [employer] Rubella IgG assay. Results from assays of other manufacturers cannot be used interchangeably. Performed By: #### L 3890.6006, L509.8002, L509.4006, BTS, L3890.6301, L100.0100, L3890.6102, L900.0098 ####[facility] [address] [place], [address] NATERAon 09-19-2024 NATURA SEE SCANNED REPORT Normal [facility] Comment on above: Performed By: #### L 3890.6006, L509.8002, L509.4006, BTS, L3890.6301, L100.0100, L3890.6102, L900.0098 ####[facility] [address] [place], [address] Syphilis Antibodieson 2024 Syphilis Abs Non-Reactive Normal Nonreactive [facility] Comment on above: Performed By: #### L 400.0001 #### [facility] [address] [place], [address] Type AND Screenon 09-19-2024 Ab SCREEN GEL Negative Normal [facility] Comment on above: Order Comment: PN Performed By: #### L 3890.6006, L509.8002, L509.4006, BTS, L3890.6301, L100.0100, L3890.6102, L900.0098 ####[facility] [address] [place], [address] Canteen Manager Office Visit Reporton 09-14-2024 Canteen Manager Office Visit Report [facility] [address], [address] [place] [address] OFFICE VISIT Date of Service: 09/14/24 MR#: [id number] Acct: [id number] Name: ALEJANDRA KIRAN Rep #: [id number] : 2000 Provider: Dr. 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 ??-?? (more content not included)... Normal [facility] Transvaginal w/Preg USon Transvaginal w/Preg [facility] Imaging Services [address] [place] [address] Transvaginal w/Preg MR#: [id number] Acct: [id number] Name: ALEJANDRA KIRAN Rep #: [id number] : 2000 F 24 From: Pablo steiner MD PCP: Dr. Bertha Wood MD Status: [facility] Study: Transvaginal w/Preg US Date of Exam: 08/31/24 Exam# [id number] Ordering Dr: Flory Leigh DO PROCEDURE: TRANSVAGINAL [...] and unremarkable. DIMENSIONS: Parameter Measurement / EGA [place] Rump Length: 1.42 cm/7 weeks and 5 [...] 7 weeks and 5 days. Reading Location: [place] [address] CC: Dr. Bertha Wood MD; Dr. Flory Leigh DO Chemical Unit Operator: Signed Normal [facility] Canteen Manager Office Visit Reporton 08-24-2024 Canteen Manager Office Visit Report [facility] [address], [address] [place] [address] OFFICE VISIT Date of Service: 08/24/24 MR#: [id number] Acct: [id number] Name: ALEJANDRA KIRAN Rep #: [id number] : 2000 Provider: Dr. 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 (more content not included)... Normal [facility] Urine Cultureon 08-21-2024 URC Below infection level. Mixed Gram Positive Organisms Kalama Count <1000 MIXC Mixed contaminants. Submit a new specimen if indicated. Normal [facility] Comment on above: Performed By: #### L 505.5000, M100.2200 ####[facility] [address] [place], [address] Canteen Manager Office Visit Reporton 08-19-2024 Canteen Manager Office Visit Report [facility] [address], [address] [place] [address] OFFICE VISIT Date of Service: 08/19/24 MR#: [id number] Acct: [id number] Name: ALEJANDRA KIRAN Rep #: [id number] : 2000 Provider: RENUKA Inman ams Age/Sex: 23/F Location: [facility] Status: Signed Intake Vital Signs 12/12/20 10:47 [...] 08/19/24 His tory Last Menstrual Period: 06/30/24 PFSH PFSH Medical History (Updated 08/19/24 @ 13:07 by [...] No current occupational status: employed current occupation: current [...] physical activity do you participate in: none puma/confucianism: Oriental Orthodox seatbelt use: always do you feel safe at home: Yes 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 Normal [facility] Urine Drug Screen (VISTA)on 08-19-2024 AMPHETAMINES Negative Normal <1000 ng/mL [facility] Comment on above: Order Comment: UNK Performed By: #### L 505.5000, M100.2200 ####[facility] [address] [place], [address] BARBITIURATES Negative Normal < 200 ng/mL [facility] Comment on above: Order Comment: UNK Performed By: #### L 505.5000, M100.2200 ####[facility] [address] [place], [address] BENZODIAZIPINE Negative Normal < 200 ng/mL [facility] Comment on above: Order Comment: UNK Performed By: #### L 505.5000, M100.2200 ####[facility] [address] [place], [address] BUP Ur Drug Scr Negative Normal < 200 ng/mL [facility] Comment on above: Order Comment: UNK Performed By: #### L 505.5000, M100.2200 ####[facility] [address] [place], [address] COCAINE Negative Normal < 300 ng/mL [facility] Comment on above: Order Comment: UNK Performed By: #### L 505.5000, M100.2200 ####[facility] [address] [place], [address] Fentanyl Negative Normal [facility] Comment on above: Order Comment: UNK Performed By: #### L 505.5000, M100.2200 ####[facility] [address] [place], [address] METHADONE Negative Normal < 300 ng/mL [facility] Comment on above: Order Comment: UNK Performed By: #### L 505.5000, M100.2200 ####[facility] [address] [place], [address] OPIATES Negative Normal < 300 ng/mL [facility] Comment on above: Order Comment: UNK Performed By: #### L 505.5000, M100.2200 ####[facility] [address] [place], [address] OXYCODONE Negative Normal < 100 ng/mL [facility] Comment on above: Order Comment: UNK Performed By: #### L 505.5000, M100.2200 ####[facility] [address] [place], [address] PCP Negative Normal < 25 ng/mL [facility] Comment on above: Order Comment: UNK Performed By: #### L 505.5000, M100.2200 ####[facility] [address] [place], [address] THC Negative Normal < 50 ng/mL [facility] Comment on above: Order Comment: UNK Performed By: #### L 505.5000, M100.2200 ####[facility] [address] [place], [address] B[facility]HCG [facility] [place] [address].0 m[IU]/mL High <5.0 [facility] Comment on above: Order Comment: Speci men Type: BLOOD SPECIMENOrdering Facility: [facility] Address: [facility] [place] [address] Result Comment: DIEGO TITATIVE HCG NORMAL RANGES Weeks of Gestation (Weeks Since LMP) 3 Weeks (5.8-71.2 mIU/mL) 4 Weeks (9.5-750 mIU/mL) 5 Weeks (217-7138 mIU/mL) 6 Weeks (158-18251 mIU/mL) 7 Weeks (3697-543234 mIU/mL) 8 Weeks (73348-625854 mIU/mL) 9 Weeks (69806-178986 mIU/mL) 10 Weeks (35864-063093 mIU/mL) 12 Weeks (82114-518905 mIU/mL) Referenced to 4th IS of [facility] Performed By: #### 2 1198-7 ####[facility] [id number] [address] [place] B-HCG SerPl-aCncon 5 [place] [address].0 m[IU]/mL High <5.0 [facility] Comment on above: Order Comment: Speci men Type: BLOOD SPECIMENOrdering Facility: [facility] Address: [address] [place] [address] Result Comment: DIEGO TITATIVE HCG NORMAL RANGES Weeks of Gestation (Weeks Since LMP) 3 Weeks (5.8-71.2 mIU/mL) 4 Weeks (9.5-750 mIU/mL) 5 Weeks (217-7138 mIU/mL) 6 Weeks (158-98184 mIU/mL) 7 Weeks (3697-799008 mIU/mL) 8 Weeks (94224-249547 mIU/mL) 9 Weeks (09755-648729 mIU/mL) 10 Weeks (16649-416770 mIU/mL) 12 Weeks (06118-579815 mIU/mL) Referenced to 4th IS of [facility] Performed By: #### 2 1198-7 ####[facility] [id number] [address] [place] CNPNon 08-12-2024 CNPN Telephone (OBGYWM) ALEJANDRA KIRAN ([id number]) 2 F Date Time Provider Department 08/12/24 CHRISTIANNE CARRANZA During your visit today, we [...] Status:Closed by DASHA WELSH on 08/12/24 Normal [facility] B-HCG SerPl-aCncon 5 HCG.beta subunit Qn 8329.0 m[IU]/mL High <5.0 [facility] Comment on above: Order Comment: Speci men Type: BLOOD SPECIMENOrdering Facility: [facility] Address: [address] [place] [address] Result Comment: DIEGO TITATIVE HCG NORMAL RANGES Weeks of Gestation (Weeks Since LMP) 3 Weeks (5.8-71.2 mIU/mL) 4 Weeks (9.5-750 mIU/mL) 5 Weeks (217-7138 mIU/mL) 6 Weeks (158-57394 mIU/mL) 7 Weeks (3697-938845 mIU/mL) 8 Weeks (25542-470071 mIU/mL) 9 Weeks (89451-008203 mIU/mL) 10 Weeks (35222-554083 mIU/mL) 12 Weeks (25781-130687 mIU/mL) Referenced to 4th IS of [facility] Performed By: #### 2 1198-7 ####[facility] LABCLIA [id number] [place] [id number] [place] Bacteria Ur Culton 5 Bacteria identified Cx Nom (U) ORGANISM ID: 1 10,000 -<50,000 CFU/ml Normal urogenital jhony Normal [facility] Comment on above: Performed By: #### 6 30-4 ####[facility] LABCLIA [id number] [address] [address] [place] C. trachomatis+N. gonorrhoea e DNA SANTY+probe Ql (Unsp spec)on 08-11-2024 C. trachomatis rRNA SANTY+probe Ql (Unsp spec) Not detected Normal Not detected [facility] Comment on above: Order Comment: Speci men Type: SWABOrdering Facility: [facility] Address: [address] [place] [address] Performed By: #### 3 6902-5, TRVAMP ####[facility] LABCLIA [id number] [address] N. gonorrhoeae rRNA SANTY+probe Ql (Unsp spec) Not detected Normal Not detected [facility] Comment on above: Order Comment: Speci men Type: SWABOrdering Facility: [facility] Address: [address] [place] [address] Performed By: #### 3 6902-5, TRVAELIANE ####[facility] LABCLIA [id number] [place] [address] [place] CBC W Auto Differential pane l (Bld)on 08-11-2024 Basophils (Bld) [#/Vol] 10*3/uL Normal <0.11 [facility] Comment on above: Order Comment: Speci men Type: BLOOD SPECIMENOrdering Facility: [facility] Address: [address] [place] [address] Performed By: #### 5 7021-8 ####[facility] [id number] [place] [address] [place] Basophils/100 WBC (Bld) 0.2 % Normal [facility] Comment on above: Order Comment: Speci men Type: BLOOD SPECIMENOrdering Facility: [facility] Address: [address] [place] [address] Performed By: #### 5 7021-8 ####[facility] [id number] [place] [address] [place] Differential cell count method Nom (Bld) Auto Normal [facility] Comment on above: Order Comment: Speci men Type: BLOOD SPECIMENOrdering Facility: [facility] Address: [address] [place] [address] Performed By: #### 5 7021-8 ####[facility] [id number] [place] [address] [place] Eosinophils (Bld) [#/Vol] 0.11 10*3/uL Normal <0.46 [facility] Comment on above: Order Comment: Speci men Type: BLOOD SPECIMENOrdering Facility: [facility] Address: [address] [place] [address] Performed By: #### 5 7021-8 ####[facility] [id number] [place] [address] [place] Eosinophils/100 WBC (Bld) 1.4 % Normal [facility] Comment on above: Order Comment: Speci men Type: BLOOD SPECIMENOrdering Facility: [facility] Address: [address] [place] [address] Performed By: #### 5 7021-8 ####[facility] [id number] [place] [address] [place] Erythrocyte distribution width (RBC) [Ratio] 14.1 % Normal 11.5-15.0 [facility] Comment on above: Order Comment: Speci men Type: BLOOD SPECIMENOrdering Facility: [facility] Address: [address] [place] [address] Performed By: #### 5 7021-8 ####[facility] [id number] [place] [address] [place] Hematocrit (Bld) [Volume fraction] 40.2 % Normal 36.0-46.0 [facility] Comment on above: Order Comment: Speci men Type: BLOOD SPECIMENOrdering Facility: [facility] Address: [address] [place] [address] Performed By: #### 5 7021-8 ####[facility] [id number] [place] [address] [place] Hemoglobin (Bld) [Mass/Vol] 13.7 g/dL Normal 11.5-15.5 [facility] Comment on above: Order Comment: Speci men Type: BLOOD SPECIMENOrdering Facility: [facility] Address: [address] [place] [address] Performed By: #### 5 7021-8 ####[facility] [id number] [place] [address] [place] Immature granulocytes (Bld) [#/Vol] 10*3/uL Normal <0.10 [facility] Comment on above: Order Comment: Speci men Type: BLOOD SPECIMENOrdering Facility: [facility] Address: [address] [place] [address] Performed By: #### 5 7021-8 ####[facility] [id number] [place] [address] [place] Immature granulocytes/100 WBC (Bld) 0.1 % Normal [facility] Comment on above: Order Comment: Speci men Type: BLOOD SPECIMENOrdering Facility: [facility] Address: [address] [place] [address] Performed By: #### 5 7021-8 ####[facility] [id number] [place] [address] [place] Lymphocytes (Bld) [#/Vol] 1.41 10*3/uL Normal 1.00-4.00 [facility] Comment on above: Order Comment: Speci men Type: BLOOD SPECIMENOrdering Facility: [facility] Address: [address] [place] [address] Performed By: #### 5 7021-8 ####[facility]ITALNCMAR[facility] [id number] [place] [address] [place] Lymphocytes/100 WBC (Bld) 17.3 % Normal [facility] Comment on above: Order Comment: Speci men Type: BLOOD SPECIMENOrdering Facility: [facility] Address: [address] [place] [address] Performed By: #### 5 7021-8 ####[facility] [id number] [place] [address] [place] MCH (RBC) [Entitic mass] 30.0 pg Normal 26.0-34.0 [facility] Comment on above: Order Comment: Speci men Type: BLOOD SPECIMENOrdering Facility: [facility] Address: [address] [place] [address] Performed By: #### 5 7021-8 ####[facility]ITALNCMAR[facility] [id number] [place] [address] [place] MCHC (RBC) [Mass/Vol] 34.1 g/dL Normal 30.5-36.0 [facility] Comment on above: Order Comment: Speci men Type: BLOOD SPECIMENOrdering Facility: [facility] Address: [address] [place] [address] Performed By: #### 5 7021-8 ####[facility]ITAL[facility]CL[facility] [id number] [place] [address] [place] MCV (RBC) [Entitic vol] 88.2 fL Normal 80.0-100.0 [facility] Comment on above: Order Comment: Speci men Type: BLOOD SPECIMENOrdering Facility: [facility] Address: [address] [place] [address] Performed By: #### 5 7021-8 ####[facility]ITALNCL[facility] [id number] [place] [address] [place] Monocytes (Bld) [#/Vol] 0.66 10*3/uL Normal <0.87 [facility] Comment on above: Order Comment: Speci men Type: BLOOD SPECIMENOrdering Facility: [facility] Address: [address] [place] [address] Performed By: #### 5 7021-8 ####[facility] [id number] [place] [address] [place] Monocytes/100 WBC (Bld) 8.1 % Normal [facility] Comment on above: Order Comment: Speci men Type: BLOOD SPECIMENOrdering Facility: [facility] Address: [address] [place] [address] Performed By: #### 5 7021-8 ####[facility] [id number] [place] [address] [place] Neutrophils (Bld) [#/Vol] 5.93 10*3/uL Normal 1.45-7.50 [facility] Comment on above: Order Comment: Speci men Type: BLOOD SPECIMENOrdering Facility: [facility] Address: [address] [place] [address] Performed By: #### 5 7021-8 ####[facility] [id number] [place] [address] [place] Neutrophils/100 WBC (Bld) 72.9 % Normal [facility] Comment on above: Order Comment: Speci men Type: BLOOD SPECIMENOrdering Facility: [facility] Address: [address] [place] [address] Performed By: #### 5 7021-8 ####[facility] [id number] [place] [address] [place] Nucleated RBC (Bld) [#/Vol] 10*3/uL Normal <0.01 [facility] Comment on above: Order Comment: Speci men Type: BLOOD SPECIMENOrdering Facility: [facility] Address: [address] [place] [address] Performed By: #### 5 7021-8 ####[facility] [id number] [place] [address] [place] Nucleated RBC/100 WBC (Bld) [Ratio] 0.0 /100 WBC Normal [facility] Comment on above: Order Comment: Speci men Type: BLOOD SPECIMENOrdering Facility: [facility] Address: [address] [place] [address] Performed By: #### 5 7021-8 ####[facility]ITAL[facility] [id number] [place] [address] [place] Platelet mean volume (Bld) [Entitic vol] 10.0 fL Normal 9.0-12.7 [facility] Comment on above: Order Comment: Speci men Type: BLOOD SPECIMENOrdering Facility: [facility] Address: [address] [place] [address] Performed By: #### 5 7021-8 ####[facility] [id number] [place] [address] [place] Platelets (Bld) [#/Vol] 266 10*3/uL Normal 150-400 [facility] Comment on above: Order Comment: Speci men Type: BLOOD SPECIMENOrdering Facility: [facility] Address: [address] [place] [address] Performed By: #### 5 7021-8 ####[facility]ITAL[facility]CL[facility] [id number] [place] [address] [place] RBC (Bld) [#/Vol] 4.56 10*6/uL Normal 3.90-5.20 [facility] Comment on above: Order Comment: Speci men Type: BLOOD SPECIMENOrdering Facility: [facility] Address: [address] [place] [address] Performed By: #### 5 7021-8 ####[facility]ITALNCLIA [id number] [place] [address] [place] WBC (Bld) [#/Vol] 8.14 10*3/uL Normal 3.70-11.00 [facility] Comment on above: Order Comment: Speci men Type: BLOOD SPECIMENOrdering Facility: [facility] Address: [address] [place] [address] Performed By: #### 5 7021-8 ####[facility] [id number] [place] [id number] [place] HBV surface Ag Ql (S)on 07-30 Interpretation and review of laboratory results Normal [facility] HBV surface Ag Ser Qlon 07-30 HBV surface Ag Ql (S) Negative Normal Negative [facility] Comment on above: Order Comment: Speci men Type: BLOOD SPECIMENOrdering Facility: [facility] Address: [address] [place] [address] Performed By: #### 5 195-3, 07045-0, 70202-8 ####[facility] LABCLIA [id number] [place] [address] [place] HCG QUANTITATIVEon HCG.beta subunit Qn 8329 m[IU]/mL [facility] Comment on above: QUANTITATIVE HCG NOR MAL RANGES Weeks of Gestation (Weeks Since LMP) 3 Weeks (5.8-71.2 mIU/mL) 4 Weeks (9.5-750 mIU/mL) 5 Weeks (217-7138 mIU/mL) 6 Weeks (158-23238 mIU/mL) 7 Weeks (3697-088575 mIU/mL) 8 Weeks (39490-510286 mIU/mL) 9 Weeks (78185-259397 mIU/mL) 10 Weeks (34370-295053 mIU/mL) 12 Weeks (27334-942597 mIU/mL) Referenced to 4th IS of [facility] HCG.beta subunit Qnon 2024 Interpretation and review of laboratory results Abnormal [facility] HCV Ab Ser Qlon 08-11-2024 HCV Ab Ql (S) Negative Normal Negative [facility] Comment on above: Order Comment: Speci men Type: BLOOD SPECIMENOrdering Facility: [facility] Address: [address] [place] [address] Result Comment: The result suggests no evidence of active infection with Hepatitis C virus. Should recent infection be suspected, repeat testing may be considered 4-6 weeks after this draw. Performed By: #### 1 6128-1 ####[facility] LABCLIA [id number] [place] [address] [place] HEPATITIS B SURFACE ANTIGENo n 08-11-2024 HBV surface Ag Ql (S) Negative Negative [facility] HIV 1+2 Ab IA Qlon HIV 1 and 2 Ab IA.rapid Nom (S/P/Bld) [facility] Comment on above: Test not indicated. HIV 1+2 Ab+HIV1 p24 Ag IA Ql Non-Reactive Nonreactive [facility] HIV immunoassay testing algorithm interpretation (S/P/Bld) [Interp] [facility] Comment on above: No evidence of HIV-1 or HIV-2 infection. Should recent infection be suspected, repeat testing may be considered 2-3 weeks after this draw. [place] Rev. Code 3701.243(E): This information has been [...] release of HIV test results or diagnoses. [facility] HIV 1 and 2 Ab IA.rapid Nom (S/P/Bld) Normal [facility] Comment on above: Order Comment: Speci men Type: BLOOD SPECIMENOrdering Facility: [facility] Address: [address] [place] [address] Result Comment: Test not indicated. Performed By: #### 5 195-3, 78529-4, 94088-7 ####[facility] LABCLIA [id number] [place] [address] [place] HIV 1+2 Ab+HIV1 p24 Ag IA Ql Non-Reactive Normal Nonreactive [facility] Comment on above: Order Comment: Speci men Type: BLOOD SPECIMENOrdering Facility: [facility] Address: [address] [place] [address] Performed By: #### 5 195-3, 05386-4, 77705-1 ####[facility] LABCLIA [id number] [address] [place] HIV immunoassay testing algorithm interpretation (S/P/Bld) [Interp] Normal [facility] Comment on above: Order Comment: Speci men Type: BLOOD SPECIMENOrdering Facility: [facility] Address: [address] [place] [address] Result Comment: No e vidence of HIV-1 or HIV-2 infection. Should recent infection be suspected, repeat testing may be considered 2-3 weeks after this draw. [place] Rev. Code 3701.243(E): This information has been [...] or diagnoses. Performed By: #### 5 195-3, 03585-0, 18798-4 ####[facility] LABCLIA [id number] [place] [id number] [place] HbA1c (Bld)on 08-11-2024 Average glucose Estimated from glycated hemoglobin (Bld) [Mass/Vol] 97 mg/dL [facility] Comment on above: eAG: (Estimated aver age glucose) is a calculated value from HgbA1c and is floor representative of the average blood glucose level in the last 2-3 month period. HbA1c (Bld) [Mass fraction] 5 % 4.3 - 5.6 % [facility] Comment on above: [place] Diabetes As sociation guidelines indicate that patients with HgbA1c in the range 5.7-6.4% are at increased risk for development of diabetes, and intervention by lifestyle modification may be beneficial. HgbA1c greater or equal to 6.5% is considered diagnostic of diabetes. [facility] Average glucose Estimated from glycated hemoglobin (Bld) [Mass/Vol] 97 mg/dL Normal [facility] Comment on above: Order Comment: Speci men Type: BLOOD SPECIMENOrdering Facility: [facility] Address: [address] [place] [address] Result Comment: eAG: (Estimated average glucose) is a calculated value from HgbA1c and is floor representative of the average blood glucose level in the last 2-3 month period. Performed By: #### 5 5454-3 ####[facility] LABCLIA [id number] [place] [address] [place] HbA1c (Bld) [Mass fraction] 5.0 % Normal 4.3-5.6 [facility] Comment on above: Order Comment: Speci men Type: BLOOD SPECIMENOrdering Facility: [facility] Address: [address] [place] [address] Result Comment: [place] Diabetes Association guidelines indicate that patients with HgbA1c in the range 5.7-6.4% are at increased risk for development of diabetes, and intervention by lifestyle modification may be beneficial. HgbA1c greater or equal to 6.5% is considered diagnostic of diabetes. Performed By: #### 5 5454-3 ####[facility] LABCLIA [id number] [place] [address] [place] POC [employer]ION [employer]GANIZER ULTRASOUNDon 08-12-19 25 Indication Viability; confirm cardiac [...] Read By: Christianne Carranza CNM MATERNAL MEDICINE [facility] Radiology Study observation (narrative) [facility] RUBELLA IGG ANTIBODYon 08-11 RUBELLA IGG AB, QUAL Positive Normal Positive [facility] Comment on above: Order Comment: Speci men Type: BLOOD SPECIMENOrdering Facility: [facility] Address: [address] [place] [address] Result Comment: The result suggests recent or past exposure to Rubella virus or history of Rubella vaccination. Positive result may also be seen due to presence of passively-transferred antibodies. Please correlate with patient's history. Performed By: #### R UBIGG ####[facility] LABIA [id number] [place] [address] [place] Reagin and Treponema pallidu m IgG and IgM [Interp]on 08-11-2024 T. pallidum IgG+IgM IA Ql (S) Non-Reactive Nonreactive [facility] T. pallidum IgG+IgM IA Ql (S) Non-Reactive Normal Nonreactive [facility] Comment on above: Order Comment: Speci men Type: BLOOD SPECIMENOrdering Facility: [facility] Address: [address] [place] [address] Performed By: #### 5 195-3, 15969-3, 54796-6 ####[facility] LABIA [id number] [place] [address] [place] Reagin+T pallidum IgG+IgM Se rPl-Impon 08-11-2024 Reagin and Treponema pallidum IgG and IgM [Interp] Cannot exclude recent Treponemal infection if specimen collected within 7-10 days after appearance of suspect lesions or 2-3 weeks after an exposure. Clinical correlation is required. Normal [facility] Comment on above: Order Comment: Debii brett Type: BLOOD SPECIMENOrdering Facility: [facility] Address: [address] [place] [address] Performed By: #### 5 195-3, 11315-7, 26716-2 ####[facility] LABCLIA [id number] [place] [id number] [place] SYPHILIS TREPONEMAL W/REFLEX on 08-11-2024 Reagin and Treponema pallidum IgG and IgM [Interp] Cannot exclude recent Treponemal infection if specimen collected within 7-10 days after appearance of suspect lesions or 2-3 weeks after an exposure. Clinical correlation is required. [facility] TRICHOMONAS VAGINALIS NAATon 08-11-2024 T. vaginalis DNA SANTY+probe Ql (Unsp spec) Not detected Normal Not detected [facility] Comment on above: Order Comment: Speci men Type: SWABOrdering Facility: [facility] Address: [address] [place] [address] Performed By: #### 3 6902-5, TRVAMP ####[facility] LABIA [id number] [address] [place] TYPE + SCREEN PRENATALon ABO group Nom (Bld) A [facility] Blood group antibody screen Ql Negative [facility] Rh Nom (Bld) Negative [facility] Type and Screen Expiration 08/14/2024 23:59 [facility] ABO A Normal [facility] Comment on above: Order Comment: Speci men Type: BLOOD SPECIMENOrdering Facility: [facility] Address: [address] [place] [address] Performed By: #### T SPN ####[facility] BANKIA [id number] [place] [address] [place] Rh Nom (Bld) Negative Normal [facility] Comment on above: Order Comment: Speci men Type: BLOOD SPECIMENOrdering Facility: [facility] Address: [address] [place] [address] Performed By: #### T SPN ####[facility] BLOOD BANKCLIA [id number] [address] [place] TYPE AND SCREEN EXPIRATION 08/14/2024 23:59 Normal [facility] Comment on above: Order Comment: Speci men Type: BLOOD SPECIMENOrdering Facility: [facility] Address: [address] [place] [address] Performed By: #### T SPN ####[facility] BLOOD BANKCLIA [id number] BARRY CHAVIRA [id number] OF [place] Catrina 08-09-2024 CNPN Telephone (OBGYWM) ALEJANDRA KIRAN ([id number]) 2 F Date Time Provider Department 08/09/24 [...] Encounter Status:Closed by PERLA MUNOZ on 08/24/24 [facility] CNOVon 06-29-2024 CNOV Office Visit (OBGYWM ) ALEJANDRA KIRAN ([id number]) 2 F Date Time Provider Department 06/29/24 9:10 AM MIKE CEBALLOS OBTREVORWKevyn During your visit today, we recorded the following information about you: Blood pressure Weight Height Last Period 100/64 80.7 kg 1.727 m 06/01/24 Mike Ceballos MD 07/01/2024 10:13 AM Signed Superintendent System Operation offered: Patient accepts, visit chaperoned by Erica [...] L0 SAB0 IAB0 Ectopic0 Multiple0 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 As applicable, any other physician, advance practice provider, medical student, or other health professional student that will be observing or involved in the sensitive examination for educational or training purposes was discussed with the Patient or Authorized Sound Technician Supervisor. The Patient or Authorized Sound Technician Supervisor has agreed to proceed with the sensitive [...] external genitalia normal, normal Bartholin's glands, urethra, Tekoa's glands, no vulvar lesions, no cervical lesions, [...] up one year or sooner as needed Mike Ceballos MD Allergies As of Date: 06/29/2024 Noted Allergy Reaction POTATO 06/24/2016 2 - Rash 4 - Hives SEASONAL ALLERGIES 02/18/2018 3 - Cough (more content not included)... Normal [facility] UA DIP,URINE HCG (POC)on Beta HCG ( test) Ql (U) Negative Negative [facility] Comment on above: Location:[facility], [address], [place], [address] Learning Manager (POCT) Internal QC OK [facility] Location:[facility], [address], [place], [address] [facility] POINT OF CARE [facility] CNOVon 05-11-2024 CNOV Office Visit (OBGYWM ) ALEJANDRA KIRAN ([id number]) 2 F Date Time Provider Department 05/11/24 10:30 AM MIKE CEBALLOS During your visit today, we recorded the following information about you: Blood pressure Weight 106/74 76.2 kg Mike Ceballos MD 05/11/2024 10:51 AM Signed Superintendent System Operation offered: Patient accepts, visit chaperoned by Erica Beverly. IFRAHJanessa Alejandra presents for removal of IUD due to [...] for evaluation if not within 12 months. Mike Ceballos MD Referring Provider: DELL ALONSO [[id number]] Allergies As of Date: 05/11/2024 Noted Allergy Reaction POTATO 06/24/2016 2 - Rash 4 - Hives SEASONAL ALLERGIES 02/18/2018 3 - Cough Comments: Seasonal allergies Date Reviewed: 05/11/2024 Reviewed by: Erica Beverly MA - Fully Assessed Reason for Visit: IUD Removal [1949] Primary Visit Diagnosis:Encounter for IUD removal [Z30.432] Order(s):REMOVE INTRAUTERINE DEVICE [[id number]] Order #: [id number] UA DIP,URINE HCG (POC) [3645587] Order #: [id number]. #:[id number] Prescriptions as of 05/11/2024 - cetirizine (ZYRTEC) [...] for Encounter Date Provider Department Center 05/11/2024 [id number] CEBALLOS Garrett Ross Encounter Status:Closed by MIKE CEBALLOS on 05/11/24 Normal [facility] UA DIP,URINE HCG (POC)on Beta HCG ( test) Ql (U) Negative Negative [facility] Comment on above: Location:[facility], [address], [place], [address] Learning Manager (POCT) Internal QC [facility] Location:[facility], [address], [place], [address] [facility] POINT OF CARE [facility] CNPNon 01-18-2024 CNPN Telephone (OBGYWM) ALEJANDRA KIRAN ([id number]) 2 F Date Time Provider Department 01/18/24 MIKE CEBALLOS During your visit today, we recorded [...] for IUD removal [Z30.432] Order(s):REMOVE INTRAUTERINE DEVICE [[id number]] Order #: [id number] Prescriptions as of 01/18/2024 - cariprazine (VRAYLAR) [...] Encounter Status:Closed by HELLEN CAMPOVERDE on 01/18/24 [facility] Jody 11-25-2023 CNOV Office Visit (OBGYWM ) ALEJANDRA KIRAN ([id number]) 2 F Date Time Provider Department 11/25/23 8:00 AM MIKE CEBALLOS During your visit today, we recorded the following information about you: Blood pressure Weight 100/60 75.3 kg Mike Ceballos MD 11/25/2023 9:37 AM Signed Alejandra Beryl Kiran is a 23 year old female who presents for problem visit wishing to discuss fertility related to her progestin IUD, Liletta and parental hx of IVF. Reports irregular menses related to anorexia 0296-[address]25 now resolved and IUD place 2020. Menarche ~ 13 yo and regular until weight loss to 106. Now 160, 5'8. Monthly/cyclic discharge on underwear.. 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 History Comments: Sexual Activity: Yes; Male Contraception: [...] external genitalia normal, normal Bartholin's glands, urethra, Tekoa's glands, no vulvar lesions, no cervical lesions, good vaginal support, physiologic discharge present, normal appearing perineal body and perianal region BIMANUAL: uterus normal size, shape and consistency, no adnexal masses, and non-tender NEURO: alert and oriented x3,exam grossly non-focal EXTREMITIES: normal ASSESSMENT AND PLAN: Unremarkable nurse instructor exam noting cold intolerance and irregular menses [...] [R68.89] Order(s):THYROID STIMULATING HORMONE [SQTSH] Order #: [id number] FUTURE Prescriptions as of 11/25/2023 - cariprazine (VRAYL (more content not included)... Normal [facility] TSH SerPl-aCncon 11-25-2023 TSH Qn 0.989 m[IU]/L Normal 0.270-4.200 [facility] Comment on above: Order Comment: Speci men Type: BLOOD SPECIMENOrdering Facility: [facility] Address: [address] [place] [address] Result Comment: If t he patient is , TSH reference range varies by gestational period: First Trimester (weeks 9-12): 0.180-2.990 mIU/L Second Trimester: 0.110-3.980 mIU/L Third Trimester: 0.480-4.710 mIU/L Xander Walker et al. A Practical Approach for the Verifications and Determination of Site- and Trimester-Specific Reference Intervals for Thyroid Function tests in . Thyroid, 2019:29:3:412-420. Milind Bergman, et al. 2017 Guidelines of the [place] Thy[employer] for the Diagnosis and Management of Thyroid Disease during and the . Thyroid, 2017:27:3:315-389. Performed By: #### 3 016-3 ####[facility] LABCLIA [id number] [facility] [id number] [place] [address] [place] Basic Metabolic Panelon Anion gap [Moles/Vol] 8 Normal [facility] Comment on above: Performed By: #### B MP3, HGHCT, TROPI ####[facility] [place] [address] Calcium [Mass/Vol] 9.3 mg/dL Normal 8.4-10.4 [facility] Comment on above: Performed By: #### B MP3, HGHCT, TROPI ####[address] [place] [address] Chloride [Moles/Vol] 99 mmol/L Normal 98-107 [facility] Comment on above: Performed By: #### B MP3, HGHCT, TROPI ####[address] [place] [address] CO2 [Moles/Vol] 28 mmol/L Normal 22-30 [facility] Comment on above: Performed By: #### B MP3, HGHCT, TROPI ####[address] [address] Creatinine [Mass/Vol] 0.69 mg/dL Normal 0.52-1.25 [facility] Comment on above: Performed By: #### B MP3, HGHCT, TROPI ####[address] [address] GFR/1.73 sq M predicted among blacks MDRD (S/P/Bld) [Vol rate/Area] mL/min/{1.73_m2} Normal >60 [facility] Comment on above: Performed By: #### B MP3, HGHCT, TROPI ####[address] [address] GFR/1.73 sq M predicted among non-blacks MDRD (S/P/Bld) [Vol rate/Area] mL/min/{1.73_m2} Normal >60 [facility] Comment on above: Result Comment: KDIG O [...] Performed By: #### B MP3, HGHCT, TROPI ####[facility] [place] [address] Glucose [Mass/Vol] 104 mg/dL High 70-100 [facility] Comment on above: Performed By: #### B MP3, HGHCT, TROPI ####[address] [place] [address] Potassium [Moles/Vol] 3.5 mmol/L Normal 3.5-5.1 [facility] Comment on above: Performed By: #### B MP3, HGHCT, TROPI ####[address] [address] Sodium [Moles/Vol] 135 mmol/L Normal 135-145 [facility] Comment on above: Performed By: #### B MP3, HGHCT, TROPI ####[address] [place] [address] Urea nitrogen [Mass/Vol] 11 mg/dL Normal 7-20 [facility] Comment on above: Performed By: #### B MP3, HGHCT, TROPI ####[address] [place] [address] Anion gap [Moles/Vol] 8 mmol/L [place] Calcium [Mass/Vol] 9.3 mg/dL 8.4 - 10.4 mg/dL [place] Chloride [Moles/Vol] 99 mmol/L 98 - 107 mmol/L [place] CO2 [Moles/Vol] 28 mmol/L 22 - 30 mmol/L [place] Creatinine [Mass/Vol] 0.69 mg/dL 0.52 - 1.25 mg/dL [place] EGFR IF NonAfrican Panamanian >90.0 >60 mL/min [place] Comment on above: KDIGO guidelines pro [...] MDRD (S/P/Bld) [Vol rate/Area] mL/min/{1.73_m2} >60 mL/min [place] Glucose [Mass/Vol] 104 mg/dL High 70 - 100 mg/dL [place], [place] Potassium [Moles/Vol] 3.5 mmol/L 3.5 - 5.1 mmol/L [place] Sodium [Moles/Vol] 135 mmol/L 135 - 145 mmol/L [place] Urea nitrogen [Mass/Vol] 11 mg/dL 7 - 20 mg/dL [place] Test Performed by [facility], [address] [place] [address] [place] COVID-19on 06-06-2020 SARS-CoV-2 Not Detected. Not Detected [place], [place] Comment on above: Not Detected. Method: Antigen detection by lateral flow. Results should not be the sole factor in determining infection status. Test Performed by [facility], [address] [place] [address] EKG 12 Leadon 06-06-2020 Bhupinder, [facility] Incoming Cardiology Results From Merge/Chapo - 06/06/2020 6:14 PM EST [facility] Test Date: 2020-06-05 Pat Name: Alejandra Cedeno Department: Room: 2629 Gender: F Nail Setter: XAVIER : 2000 Requested By: CAROLINA LOMELI Order Number: [id number] [place] MD: Peewee Peterson Measurements Intervals [place] Rate: 57 P: 46 [place]: 119 QRS: 57 QRSD: 92 T: 52 QT: 433 QTc: 422 Interpretive Statements Sinus bradycardia Compared to ECG 06/04/2020 22:31:38 Sinus rhythm no longer present Electronically Signed On 06-06-2020 18:13:50 EST by [facility] Test Date: 2020-06-05 Pat Name: Alejandra Cedeno Department: Room: [facility] Gender: F Nail Setter: XAVIER : 2000 Requested By: CAROLINA LOMELI Order Number: [id number] [place] MD: Peewee Peterson Measurements Intervals [place] Rate: 57 P: 46 [place]: 119 QRS: 57 QRSD: 92 T: 52 QT: 433 QTc: 422 Interpretive Statements Sinus bradycardia Compared to ECG 06/04/2020 22:31:38 Sinus rhythm no longer present Electronically Signed On 06-06-2020 18:13:50 EST by [place], [place] Glucose,Bedsideon 06-06-2020 Glucose [Mass/Vol] 94 mg/dL Normal 70-100 [facility] Comment on above: Result Comment: Test performed by glucose meter. Results may be 10%-15% lower than serum/plasma values. (CLIA ID [id number]) Performed By: #### B GLU #### [facility] [employer] [id number] [place] [address] Hemoglobin AND Hematocriton 06-06-2020 Hematocrit (Bld) [Volume fraction] 34.6 % Low 35.0-47.0 [facility] Comment on above: Performed By: #### B MP3, HGHCT, TROPI ####[facility] [employer] [address] [place] [address] Hemoglobin (Bld) [Mass/Vol] 11.5 g/dL Low 11.7-16.0 [facility] Comment on above: Performed By: #### B MP3, HGHCT, TROPI ####[facility] [place] [address] Hemoglobin and Hematocrit, B loodon 06-06-2020 Hematocrit (Bld) [Volume fraction] 34.6 % Low 35 - 47 % [place], [place] Hemoglobin (Bld) [Mass/Vol] 11.5 g/dL Low 11.7 - 16 g/dL [place] Test Performed by [facility], [address] [place] [address] [place], [place] Lipid Panelon 06-06-2020 Cholesterol in HDL [Mass/Vol] 43 mg/dL Normal 40-60 [place] Comment on above: Performed By: #### L IPD2 #### [facility] [address] [place] [address] Cholesterol.total/Ch olesterol in HDL [Mass ratio] 4 Normal [facility] Comment on above: Result Comment: Ref Range: < 3 Low Risk for CHD 3-6 Mod Risk for CHD > 6 High Risk for CHD Performed By: #### L IPD2 #### [facility] [employer] [facility] [address] [place] [address] Protein [Mass/Vol] 105 mg/dL Abnormal <100 [facility] Comment on above: Performed By: #### L IPD2 #### [facility] [employer] [facility] [address] [place] [address] Cholesterol [Mass/Vol] 164 mg/dL Normal < 200 [place] Comment on above: Performed By: #### L IPD2 #### [facility] [address] [place] [address] Triglyceride [Mass/Vol] 80 mg/dL Normal <150 [place] Comment on above: Performed By: #### L IPD2 #### [facility] [employer] [facility] [address] [place] [address] Lipid panel - fastingon Cholesterol in LDL [Mass/Vol] 105 mg/dL Abnormal <100 [place] Cholesterol.total/Ch olesterol in HDL [Mass ratio] 4 {ratio} [place], [place] Comment on above: Ref Range: < 3 Low Risk for CHD 3-6 Mod Risk for CHD > 6 High Risk for CHD Test Performed by [facility], [address] [place], [place] [id number] [place] [address] Otheron 06-06-2020 Interpretation and review of laboratory results Abnormal [place] POCT troponinon 06-06-2020 Troponin I.cardiac [Mass/Vol] 0.00 ng/mL 0 - 0.08 ng/mL [place] Comment on above: . Test Performed by [facility], [address] [place] [id number] [place] [address] [id number] 06-06-2020 SARS-CoV-2 SARS-CoV-2 --> Status: F Not Detected. Method: Antigen detection by lateral flow. Results should not be the sole factor in determining infection status. Method: Antigen detection by lateral flow. Results should not be the sole factor in determining infection status. Normal [facility] Comment on above: Performed By: #### C OVID ####[facility] [address] [place] [address] Troponin, ISTATon 06-06-2020 Troponin I.cardiac [Mass/Vol] 0.00 ng/mL Normal 0.00-0.08 [facility] Comment on above: Result Comment: . Performed By: #### B MP3, HGHCT, TROPI ####[address] [address] POCT Glucoseon 06-05-2020 Glucose [Mass/Vol] 94 mg/dL 70 - 100 mg/dL [place] Comment on above: Test performed by ucose meter. Results may be 10%-15% lower than serum/plasma values. (CLIA ID [id number]) Test Performed by [facility], [address] [place] [address] [place] [id number] 06-05-2020 SARS-CoV-2 SARS-CoV-2 --> Status: F Not Detected. Expected Result: Not Detected _ Real-time, RT-PCR performed on the [employer] System by the [facility] Microbiology Service. Negative results do not preclude SARS-CoV-2 infection and should not be used as the sole basis for treatment or other patient management decisions. This assay was developed by [employer] and distributed under an Emergency Use Authorization (EUA) granted by the FDA for the qualitative detection of SARS-CoV-2 nucleic acid. Expected Result: Not Detected _ Real-time, RT-PCR performed on the [employer] System by the [facility] Microbiology Service. Negative results do not preclude SARS-CoV-2 infection and should not be used as the sole basis for treatment or other patient management decisions. This assay was developed by [employer] and distributed under an Emergency Use Authorization (EUA) granted by the FDA for the qualitative detection of SARS-CoV-2 nucleic acid. Normal [facility] Comment on above: Performed By: #### C OVID ####[facility] [place], [place] hCG Qual Pregon 06-05-2020 hCG Qual Preg Negative Normal [facility] Comment on above: Result Comment: Refe rence Range: NEGATIVE Effective 08/12/2019, the reference interval for the qualitative test has been updated. This test detects hCG at concentrations of 10 mIU/L or greater in serum. Performed By: #### A CET4, SAL33, ETOH4, QWAL, HEMDF, CMP3 #### [facility] [address], [place] ACETAMINOPHEN LEVELon 2020 Acetaminophen [Mass/Vol] <10.0 10 - 30 ug/mL [place], [place] Acetaminophenon 06-04-2020 Acetaminophen [Mass/Vol] < 10.0 Normal 10.0-30.0 [facility] Comment on above: Performed By: #### A CET4, SAL33, ETOH4, QWAL, HEMDF, CMP3 #### [facility] [address], [place] Comp Metabolic Panelon 06-04 ALP [Catalytic activity/Vol] 87 U/L Normal 38-126 [facility] Comment on above: Performed By: #### A CET4, SAL33, ETOH4, QWAL, HEMDF, CMP3 #### [facility] [address], [place] ALT [Catalytic activity/Vol] 11 U/L Normal 0-34 [facility] Comment on above: Result Comment: The ALT test is performed by an updated assay method. Please note that the reference intervals have been changed and are now sex specific. Performed By: #### A CET4, SAL33, ETOH4, QWAL, HEMDF, CMP3 #### [facility] [address], [place] AST [Catalytic activity/Vol] 30 U/L Normal 15-46 [facility] Comment on above: Performed By: #### A CET4, SAL33, ETOH4, QWAL, HEMDF, CMP3 #### [address], [place] Bilirubin [Mass/Vol] 0.4 mg/dL Normal 0.2-1.3 [facility] Comment on above: Performed By: #### A CET4, SAL33, ETOH4, QWAL, HEMDF, CMP3 #### [address], [place] Calcium [Mass/Vol] 10.0 mg/dL Normal 8.4-10.4 [facility] Comment on above: Performed By: #### A CET4, SAL33, ETOH4, QWAL, HEMDF, CMP3 #### [address] [place], [place] Glucose [Mass/Vol] 99 mg/dL Normal 70-100 [facility] Comment on above: Performed By: #### A CET4, SAL33, ETOH4, QWAL, HEMDF, CMP3 #### [address] [place], [place] Protein [Mass/Vol] 8.2 g/dL Normal 6.3-8.2 [facility] Comment on above: Performed By: #### A CET4, SAL33, ETOH4, QWAL, HEMDF, CMP3 #### [address] [place], [place] Urea nitrogen [Mass/Vol] 6 mg/dL Low 7-20 [facility] Comment on above: Performed By: #### A CET4, SAL33, ETOH4, QWAL, HEMDF, CMP3 #### [address] Anion gap [Moles/Vol] 11 Normal [facility] Comment on above: Performed By: #### A CET4, SAL33, ETOH4, QWAL, HEMDF, CMP3 #### [address] [place] CO2 [Moles/Vol] 24 mmol/L Normal 22-30 [facility] Comment on above: Performed By: #### A CET4, SAL33, ETOH4, QWAL, HEMDF, CMP3 #### [address] Creatinine [Mass/Vol] 0.62 mg/dL Normal 0.52-1.25 [facility] Comment on above: Performed By: #### A CET4, SAL33, ETOH4, QWAL, HEMDF, CMP3 #### [address] [place] GFR/1.73 sq M predicted among blacks MDRD (S/P/Bld) [Vol rate/Area] mL/min/{1.73_m2} Normal >60 [facility] Comment on above: Performed By: #### A CET4, SAL33, ETOH4, QWAL, HEMDF, CMP3 #### [address] [place] GFR/1.73 sq M predicted among non-blacks MDRD (S/P/Bld) [Vol rate/Area] mL/min/{1.73_m2} Normal >60 [facility] Comment on above: Result Comment: KDIG O [...] CET4, SAL33, ETOH4, QWAL, HEMDF, CMP3 #### [address] Potassium [Moles/Vol] 3.6 mmol/L Normal 3.5-5.1 [facility] Comment on above: Performed By: #### A CET4, SAL33, ETOH4, QWAL, HEMDF, CMP3 #### [address] Sodium [Moles/Vol] 138 mmol/L Normal 135-145 [facility] Comment on above: Performed By: #### A CET4, SAL33, ETOH4, QWAL, HEMDF, CMP3 #### [address] Albumin [Mass/Vol] 4.8 g/dL Normal 3.5-5.0 [facility] Comment on above: Performed By: #### A CET4, SAL33, ETOH4, QWAL, HEMDF, CMP3 #### [address] Chloride [Moles/Vol] 103 mmol/L Normal 98-107 [facility] Comment on above: Performed By: #### A CET4, SAL33, ETOH4, QWAL, HEMDF, CMP3 #### [address] Comprehensive Metabolic Pane roverto 06-04-2020 Albumin [Mass/Vol] 4.8 g/dL 3.5 - 5 g/dL [place], [place] ALP [Catalytic activity/Vol] 87 U/L 38 - 126 U/L [place] ALT [Catalytic activity/Vol] 11 U/L 0 - 34 U/L [place] Comment on above: The ALT test is perf ormed by an updated assay method. Please note that the reference intervals have been changed and are now sex specific. Anion gap [Moles/Vol] 11 mmol/L [place] AST [Catalytic activity/Vol] 30 U/L 15 - 46 U/L [place] Bilirubin Ql (U) 0.4 mg/dL 0.2 - 1.3 mg/dL [place], [place] Calcium [Mass/Vol] 10.0 mg/dL 8.4 - 10.4 mg/dL [place] Chloride [Moles/Vol] 103 mmol/L 98 - 107 mmol/L [place] CO2 [Moles/Vol] 24 mmol/L 22 - 30 mmol/L [place] Creatinine [Mass/Vol] 0.62 mg/dL 0.52 - 1.25 mg/dL [place] EGFR IF NonAfrican Panamanian >90.0 >60 mL/min [place] Comment on above: KDIGO guidelines pro [...] MDRD (S/P/Bld) [Vol rate/Area] mL/min/{1.73_m2} >60 mL/min [place] Glucose [Mass/Vol] 99 mg/dL 70 - 100 mg/dL [place], [place] Interpretation and review of laboratory results Abnormal [place], [place] Potassium [Moles/Vol] 3.6 mmol/L 3.5 - 5.1 mmol/L [place] Protein [Mass/Vol] 8.2 g/dL 6.3 - 8.2 g/dL [place], [place] Sodium [Moles/Vol] 138 mmol/L 135 - 145 mmol/L [place] Urea nitrogen [Mass/Vol] 6 mg/dL Low 7 - 20 mg/dL [place] Drugs of Abuseon 06-04-2020 Cocaine, Ur Negative Normal [facility] Comment on above: Performed By: #### D RGA4 ####[address] [place], [place] Opiates, Ur Negative Normal [facility] Comment on above: Performed By: #### D RGA4 ####[address] [place], [place] Phencyclidine (PCP), Ur Negative Normal [facility] Comment on above: Result Comment: The expected [...] separate order. Performed By: #### D RGA4 ####[address] [employer] [facility] [place] [place] Methadone, Ur Negative Normal [facility] Comment on above: Performed By: #### D RGA4 ####[address] [facility] [address] Amphetamines, Ur Negative Normal [facility] Comment on above: Performed By: #### D RGA4 ####[facility] [place] [address] Barbiturates, Ur Negative Normal [facility] Comment on above: Performed By: #### D RGA4 ####[facility] [place] [address] Benzodiazepines, Ur Negative Normal [facility] Comment on above: Performed By: #### D RGA4 ####[facility] [place] [address] Oxycodone/Oxymorphin e,Ur Negative Normal [facility] Comment on above: Performed By: #### D RGA4 ####[address] [place] [address] ED Provider Noteon ED Provider Note Emergency Department Encounter [facility] EMERGENCY DEPT Patient: Alejandra Cedeno : 2000 [...] is scared she will hurt herself further. BEAVER (Location/Symptom, Timing/Onset, Context/Setting, Quality, Duration, Modifying Factors, [...] otherwise acutely negative except as in the BEAVER. Past History History reviewed. No pertinent past [...] on phone: None Gets together: None Attends restorationism service: None Active member of club or [...] eGFR >90.0 >60 mL/min EGFR IF NonAfrican Panamanian >90.0 >60 mL/min Calcium 10.0 8.4 - [...] # 1.6 1.0 - 4.3 10*3/uL Absolute [place] # 0.5 0.0 - 0.8 10*3/uL Absolute [...] inpatient psychiatric admission, patient was admitted to [facility] in stable condition. Patient is medically clear for psychiatric admission. ED Medication Orders (From admission, onward) Start Ordered Status Ordering Provider 06/04/205 06/04/202235 [facility]-Daqmuk-Btkzr Pertussis (BOOSTRIX) injection 0.5 mL ONCE Last [...] [employer] SELINA Nieves 06/05/20 0007 [facility] ED Provider Note Emergency Department [...] Rate and rhythm: sinus rhythm, 66 bpm [place]: within normal range Intervals: [place] 122, QRS 88, QTc 430 Segments: no [...] made by myself in conjunction with the [facility]. For all further details of the patient's emergency department visit, please see their documentation. (Please note that portions of this note may have been completed with a voice recognition program. Efforts were made to edit the dictations but occasionally words are mis-transcribed.) Giles Rose MD [employer] Giles Rose MD 06/05/20 0343 Normal [facility] Ethanolon 06-04-2020 Ethanol Lvl <0.010 0 - 0.01 g/dL [place], [place] Comment on above: NOTE: This result is for medical treatment only. Analysis performed using non-forensic procedures. Ethanol Serum/Plasmaon 06-04 Ethanol-Serum/Plasma < 0.010 Normal 0.000-0.010 [facility] Comment on above: Result Comment: NOTE : This result is for medical treatment only. Analysis performed using non-forensic procedures. Performed By: #### A CET4, SAL33, ETOH4, QWAL, HEMDF, CMP3 #### [facility] [address] [place] [address] HCG Qualitative, Serumon hCG Qual Negative m[IU]/mL [place], [place] Comment on above: Reference Range: NEG ATIVE Effective 08/12/2019, the reference interval for the qualitative test has been updated. This test detects hCG at concentrations of 10 mIU/L or greater in serum. Test Performed by [facility], [address] [place] [address] [place], [place] Hemogram (CBC) w/Auto Diffon 06-04-2020 Absolute Baso # 0.0 10*3/uL 0 - 0.2 10*3/uL [place], [place] Absolute Neut # 4.6 10*3/uL 1.8 - 7 10*3/uL [place], [place] Basophils/100 WBC (Bld) 0.7 % 0 - 2 % [place] Eosinophils (Bld) [#/Vol] 0.0 10*3/uL 0 - 0.5 10*3/uL [place] Eosinophils/100 WBC (Bld) 0.5 % Low 1 - 6 % [place] Erythrocyte distribution width (RBC) [Ratio] 18.1 % High 11.5 - 14.5 % [place] Granulocytes/100 WBC (Bld) 68.4 % 40 - 80 % [place] Hematocrit (Bld) [Volume fraction] 40.0 % 35 - 47 % [place] Hemoglobin (Bld) [Mass/Vol] 12.9 g/dL 11.7 - 16 g/dL [place] Interpretation and review of laboratory results Abnormal [place] Lymphocytes (Bld) [#/Vol] 1.6 10*3/uL 1 - 4.3 10*3/uL [place] Lymphocytes/100 WBC (Bld) 23.2 % 20 - 40 % [place] MCH (RBC) [Entitic mass] 25.9 pg Low 26 - 34 pg [place] MCHC (RBC) [Mass/Vol] 32.2 % 32 - 36 % [place] MCV (RBC) [Entitic vol] 80.4 fL 79 - 98 fL [place] Monocytes (Bld) [#/Vol] 0.5 10*3/uL 0 - 0.8 10*3/uL [place] Monocytes/100 WBC (Bld) 7.2 % 2 - 10 % [place] Platelet mean volume (Bld) [Entitic vol] 8.7 fL 7.4 - 10.4 fL [place] Platelets (Bld) [#/Vol] 326 10*3/uL 140 - 440 10*3/uL [place] RBC (Bld) [#/Vol] 4.97 10*6/uL 3.8 - 5.2 10*6/uL [place] WBC (Bld) [#/Vol] 6.8 10*3/uL 3.6 - 10.7 10*3/uL [place] Test Performed by [id number] [place] [address] Hemogram w/ Autodiffon 06-04 Abs Baso Cnt 0.0 10*3/uL Normal 0.0-0.2 [facility] Comment on above: Performed By: #### A CET4, SAL33, ETOH4, QWAL, HEMDF, CMP3 #### [address] [address] Abs Neutrophile Cnt 4.6 10*3/uL Normal 1.8-7.0 [facility] Comment on above: Performed By: #### A CET4, SAL33, ETOH4, QWAL, HEMDF, CMP3 #### [address] [address] Basophils/100 WBC (Bld) 0.7 % Normal 0.0-2.0 [facility] Comment on above: Performed By: #### A CET4, SAL33, ETOH4, QWAL, HEMDF, CMP3 #### [address] [address] Eosinophils (Bld) [#/Vol] 0.0 10*3/uL Normal 0.0-0.5 [facility] Comment on above: Performed By: #### A CET4, SAL33, ETOH4, QWAL, HEMDF, CMP3 #### [address] [place], [place] Eosinophils/100 WBC (Bld) 0.5 % Low 1.0-6.0 [facility] Comment on above: Performed By: #### A CET4, SAL33, ETOH4, QWAL, HEMDF, CMP3 #### [place] [address] [address] [place], [place] Erythrocyte distribution width (RBC) [Ratio] 18.1 % High 11.5-14.5 [facility] Comment on above: Performed By: #### A CET4, SAL33, ETOH4, QWAL, HEMDF, CMP3 #### [place] [address] [address] [place], [place] Granulocytes/100 WBC (Bld) 68.4 % Normal 40.0-80.0 [facility] Comment on above: Performed By: #### A CET4, SAL33, ETOH4, QWAL, HEMDF, CMP3 #### [place] [address] [address] [place], [place] Hematocrit (Bld) [Volume fraction] 40.0 % Normal 35.0-47.0 [facility] Comment on above: Performed By: #### A CET4, SAL33, ETOH4, QWAL, HEMDF, CMP3 #### [place] [address] [address] [place] Hemoglobin (Bld) [Mass/Vol] 12.9 g/dL Normal 11.7-16.0 [facility] Comment on above: Performed By: #### A CET4, SAL33, ETOH4, QWAL, HEMDF, CMP3 #### [place] [address] [address] [place] Lymphocytes (Bld) [#/Vol] 1.6 10*3/uL Normal 1.0-4.3 [facility] Comment on above: Performed By: #### A CET4, SAL33, ETOH4, QWAL, HEMDF, CMP3 #### [address] Lymphocytes/100 WBC (Bld) 23.2 % Normal 20.0-40.0 [facility] Comment on above: Performed By: #### A CET4, SAL33, ETOH4, QWAL, HEMDF, CMP3 #### [place] [address] [address] [address] [place] MCH (RBC) [Entitic mass] 25.9 pg Low 26.0-34.0 [facility] Comment on above: Performed By: #### A CET4, SAL33, ETOH4, QWAL, HEMDF, CMP3 #### [place] [address] [address] [place] MCHC (RBC) [Mass/Vol] 32.2 % Normal 32.0-36.0 [facility] Comment on above: Performed By: #### A CET4, SAL33, ETOH4, QWAL, HEMDF, CMP3 #### [address] MCV (RBC) [Entitic vol] 80.4 fL Normal 79.0-98.0 [facility] Comment on above: Performed By: #### A CET4, SAL33, ETOH4, QWAL, HEMDF, CMP3 #### [place] [address] [address] [place] Monocytes (Bld) [#/Vol] 0.5 10*3/uL Normal 0.0-0.8 [facility] Comment on above: Performed By: #### A CET4, SAL33, ETOH4, QWAL, HEMDF, CMP3 #### [address] Monocytes/100 WBC (Bld) 7.2 % Normal 2.0-10.0 [facility] Comment on above: Performed By: #### A CET4, SAL33, ETOH4, QWAL, HEMDF, CMP3 #### [address] Platelet mean volume (Bld) [Entitic vol] 8.7 fL Normal 7.4-10.4 [facility] Comment on above: Performed By: #### A CET4, SAL33, ETOH4, QWAL, HEMDF, CMP3 #### [place] [address] [address] [place] [address] Platelets (Bld) [#/Vol] 326 10*3/uL Normal 140-440 [facility] Comment on above: Performed By: #### A CET4, SAL33, ETOH4, QWAL, HEMDF, CMP3 #### [facility] [address] [place] [address] RBC (Bld) [#/Vol] 4.97 10*6/uL Normal 3.80-5.20 [facility] Comment on above: Performed By: #### A CET4, SAL33, ETOH4, QWAL, HEMDF, CMP3 #### [address] [address] WBC (Bld) [#/Vol] 6.8 10*3/uL Normal 3.6-10.7 [facility] Comment on above: Performed By: #### A CET4, SAL33, ETOH4, QWAL, HEMDF, CMP3 #### [address] [place], [place] Otheron 06-04-2020 Test Performed by [address] [address] [facility] [place], [place] Salicylateon 06-04-2020 Salicylate Lvl <1.0 0 - 20 mg/dL [facility]- [place], [place] Test Performed by [address] [address] [facility] [place], [place] Salicylateson 06-04-2020 Salicylates < 1.0 Normal 0.0-20.0 [facility] Comment on above: Performed By: #### A CET4, SAL33, ETOH4, QWAL, HEMDF, CMP3 #### [address] [address] Urine Drug Screenon 06-04-19 21 Amphetamines, urine Negative [facility] [place] Barbiturates, Ur Negative [facility] [place] Benzodiazepine [place] Qual Negative [facility] [place] Cocaine Metabolites, Ur Negative [facility] [place] Methadone, Urine Negative [facility] [place] Opiates, Urine Negative [facility], [place] Oxycodone Screen, Ur Negative [place], [place] PCP, Urine Negative [place], [place] Comment on above: The expected value [...] confirmation under separate order. Test Performed by [facility], [address] [place] [id number] [place] [address] GI FLUORO CHEST SNIFF TESTon 03-19-2020 GI [...] right hemidiaphragm. IMPRESSION: 1. Normal diaphragmatic excursion. Chemical Unit Operator: HILTONB Transcribe Date/Time: Mar 19 2020 9:24A Dictated by : LISA KRAUS MD This examination was interpreted and the report reviewed and electronically signed by: LISA KRAUS MD on Mar 19 2020 9:27AM EST [id number] N [facility] Vital Signs Date Time Vital Sign Value Performing Clinician Malia michelle 08-11-2024 08:39-0400 Body height 172.7 cm Christianne Madrigalts MECHANICAL APPRENTICE.CNM Work Phone: [facility] 08-11-2024 08:39-0400 Body mass index (BMI) [Ratio] 27.37 kg/m2 Christianne Plotts MECHANICAL APPRENTICE.CNM Work Phone: [facility] 08-11-2024 08:39-0400 Body weight 81.65 kg Christianne Plotts MECHANICAL APPRENTICE.CNM Work Phone: [facility] 08-11-2024 08:39-0400 Diastolic blood pressure 72 mm[Hg] Christianne Plotts MECHANICAL APPRENTICE.CNM Work Phone: [facility] 08-11-2024 08:39-0400 Systolic blood pressure 110 mm[Hg] Christianne Plotts MECHANICAL APPRENTICE.CNM Work Phone: [facility] 06-29-2024 09:06-0500 Body height 172.7 cm Mike Ceballos MD Work Phone: [facility] 06-29-2024 09:06-0500 Body mass index (BMI) [Ratio] 27.06 kg/m2 Mike Ceballos MD Work Phone: [facility] 06-29-2024 09:06-0500 Body weight 80.74 kg Mike Ceballos MD Work Phone: [facility] 06-29-2024 09:06-0500 Diastolic blood pressure 64 mm[Hg] Mike Ceballos MD Work Phone: [facility] 06-29-2024 09:06-0500 Systolic blood pressure 100 mm[Hg] Mike Ceballos MD Work Phone: [facility] 05-11-2024 10:17-0500 Body mass index (BMI) [Ratio] 26.51 kg/m2 Mike Ceballos MD Work Phone: [facility] 05-11-2024 10:17-0500 Body weight 76.2 kg Mike Ceballos MD Work Phone: [facility] 05-11-2024 10:17-0500 Diastolic blood pressure 74 mm[Hg] Mike Ceballos MD Work Phone: [facility] 05-11-2024 10:17-0500 Systolic blood pressure 106 mm[Hg] Mike Ceballos MD Work Phone: [facility] 11-25-2023 08:05-0400 Body mass index (BMI) [Ratio] 26.19 kg/m2 Mike Ceballos MD Work Phone: [facility] 11-25-2023 08:05-0400 Body weight 75.3 kg Mike Ceballos MD Work Phone: [facility] 11-25-2023 08:05-0400 Diastolic blood pressure 60 mm[Hg] Mike Ceballos MD Work Phone: [facility] 11-25-2023 08:05-0400 Systolic blood pressure 100 mm[Hg] Mike Ceballos MD Work Phone: [facility] 02-26-2023 14:00-0400 Body height 170.2 cm Kiki [place] MECHANICAL APPRENTICE.CLINICAL BIOSTATISTICIAN Work Phone: [facility] 02-26-2023 14:00-0400 Body weight 73.94 kg Kiki Milan MECHANICAL APPRENTICE.CLINICAL BIOSTATISTICIAN Work Phone: [facility] 02-26-2023 14:00-0400 Diastolic blood pressure 64 mm[Hg] Kiki [place] MECHANICAL APPRENTICE.CLINICAL BIOSTATISTICIAN Work Phone: [facility] 02-26-2023 14:00-0400 Systolic blood pressure 112 mm[Hg] Kiki Milan MECHANICAL APPRENTICE.CLINICAL BIOSTATISTICIAN Work Phone: [facility] 06-11-2020 05:45-0500 Body Temperature 97.7 [degF] [facility] [place] 06-11-2020 05:45-0500 BP Diastolic 74 mm[Hg] [facility] [place] , [place] 06-11-2020 05:45-0500 BP Systolic 117 mm[Hg] [facility] , [place] 06-11-2020 05:45-0500 Pulse (Heart Rate) 67 /min [facility], [place] 06-11-2020 05:45-0500 Pulse Oximetry 98 % Stephanie [facility] , [place] 06-11-2020 05:45-0500 Respiratory Rate 16 /min [facility], [place] 06-04-2020 20:24-0500 BMI (Body Mass Index) 21.79 kg/m2 [facility], [place] 06-04-2020 20:24-0500 Body weight 61.[address] [facility] , [place] 06-04-2020 20:24-[address] [facility] , [place] Encounters Encounter Date Encounter Type Care Provider Facility Start: 02-01-2025 ambulatory [facility] Facility: [facility] Start: 01-24-2025 End: 01-24-2025 ambulatory [facility] Start: 01-06-2025 End: 01-06-2025 ambulatory [facility] Start: 12-29-2024 End: 12-29-2024 ambulatory [facility] Facility:[facility] Start: 12-26-2024 End: 12-26-2024 ambulatory [facility] Start: 12-26-2024 End: 12-26-2024 ambulatory [facility] Facility:[facility] Start: 12-20-2024 End: 12-20-2024 ambulatory [facility] Start: 12-07-2024 End: 12-07-2024 ambulatory Sundeep HernandesChristos Facility:[facility] Start: 12-06-2024 End: 12-06-2024 Emergency department patient visit [facility] Facility:[facility] Start: 12-01-2024 End: 12-01-2024 ambulatory SUNDEEP Martinez [facility] Start: 11-17-2024 End: 11-17-2024 ambulatory NAVDEEP JEFFREY [facility] Start: 11-09-2024 End: 11-09-2024 ambulatory Sundeep HernandesChristos Facility:[facility] Start: 11-04-2024 End: 11-04-2024 ambulatory Angela Vigil Facility:[facility] Start: 11-04-2024 End: 11-04-2024 ambulatory Angela Vigil Facility:[facility] Start: 10-19-2024 End: 10-19-2024 ambulatory Tieradonell Mcfarland Facility:[facility] Start: 10-13-2024 End: 10-13-2024 ambulatory Bertha Wood Facility:[facility] Start: 10-13-2024 End: 10-13-2024 ambulatory Navdeep Jeffrey Facility:[facility] Start: 10-05-2024 End: 10-05-2024 ambulatory Tiera Mcfarland Facility:[facility] Start: 10-03-2024 End: 10-03-2024 ambulatory BERTHA S JOLLIFF [facility] Start: 09-22-2024 End: 09-22-[address] [facility] Start: 09-19-2024 End: 09-19-2024 ambulatory Tiera Mcfarland Facility:[facility] Start: 09-14-2024 End: 09-14-2024 ambulatory Tieradonell Riosimke Facility:[facility] Start: 08-31-2024 End: 08-31-2024 ambulatory Flory Ray Lopez Facility:[facility] Start: 08-24-2024 End: 08-24-2024 ambulatory Flory Leigh Facility:[facility] Start: 08-19-2024 End: 08-19-2024 ambulatory Navdeep Jeffrey Facility:[facility] Start: 08-19-2024 End: 08-19-2024 ambulatory Navdeep Jeffrey Facility:[facility] Start: 08-16-2024 End: 10-17-2024 Follow-up encounter Rosario Escalona MD Work Phone: OB/Gynecology Start: 08-15-2024 End: 08-15-2024 ambulatory CHRISTIANNE CARRANZA Facility:[facility] Start: 08-14-2024 End: 10-14-2024 Follow-up encounter Rosario Escalona MD Work Phone: OB/Gynecology Start: 08-13-2024 End: 08-13-2024 ambulatory CHRISTIANNE CARRANZA Facility:[facility] Start: 08-12-2024 End: 10-12-2024 Follow-up encounter Christiannecharles Carranza APRN.CNM Work Phone: OB/Gynecology Start: 08-12-2024 End: 08-12-2024 Telephone encounter Christianne Carranza APRN.CNM Work Phone: OB/Gynecology Comment on above: Transferred Care Start: 08-12-2024 ambulatory Bertha Giovani Derasconrado Facility: [facility] Start: 08-11-2024 End: 08-11-2024 ambulatory CHRISTIANNE CARRANZA Facility:[facility] Start: 08-11-2024 End: 08-11-2024 Patient encounter procedure Christianne Kaitlinrosalia TRIPATHIN.CNM Work Phone: OB/Gynecology Comment on above: with uncer tain dates, antepartum (Primary Dx); 6 weeks gestation of ; Threatened miscarriage; Bipolar 2 disorder (HCC); Anorexia nervosa; Anxiety; Depression, unspecified depression type; Cholinergic urticaria; Encounter for supervision of high risk in first trimester, antepartum Start: 08-09-2024 End: 08-24-2024 Telephone encounter Christianne Kaitlinrosalia ROSARIO Work Phone: OB/Gynecology Comment on above: Appointment Start: 06-29-2024 End: 06-29-2024 ambulatory MIKE CEBALLOS Facility:[facility] Start: 06-29-2024 End: 06-29-2024 Patient encounter procedure Mike Ceballos MD Work Phone: OB/Gynecology Comment on above: Encounter for gyneco logical examination (general) (routine) without abnormal findings (Primary Dx); Attempting to conceive Start: 06-29-2024 End: 06-29-2024 Patient encounter status Mike Ceballos MD Work Phone: [facility] Start: 05-11-2024 End: 05-11-2024 ambulatory MIKE CEBALLOS Facility:[facility] Start: 05-11-2024 End: 05-11-2024 Patient encounter procedure Mike Ceballos MD Work Phone: OB/Gynecology Comment on above: Encounter for IUD re moval (Primary Dx) Start: 05-05-2024 End: 05-05-2024 ambulatory Mike Ceballos MD Work Phone: OB/Gynecology Comment on above: Bleeding irregularly Start: 01-18-2024 End: 01-18-2024 Telephone encounter Mike Ceballos MD Work Phone: OB/Gynecology Comment on above: Orders Start: 11-25-2023 End: 11-25-2023 ambulatory MIKE CEBALLOS Facility:[facility] Start: 11-25-2023 End: 11-25-2023 Patient encounter procedure Mike Ceballos MD Work Phone: OB/Gynecology Comment on above: Irregular menses (Pr imary Dx); Intolerance to cold Start: 02-26-2023 End: 02-26-2023 Patient encounter procedure Kiki Yates MECHANICAL APPRENTICE.CLINICAL BIOSTATISTICIAN Work Phone: OB/Gynecology Comment on above: Secondary amenorrhea (Primary Dx) Start: 06-04-[address] [facility] [place] Procedures Date Procedure Procedure Detail Performing Clinician Start: 08-11-2024 Antibody screen MIKE CEBALLOS Comment on above: Order Comment: Speci men Type: BLOOD SPECIMENOrdering Facility: [facility] Address: [address] [place] [address] Performed By: #### T SPN ####CC MAIN BLOOD BANKCLIA [id number] [place] [address] [place] Start: 08-11-2024 Us uterus l imited 1/> fetuses Christianne Plotrosalia MECHANICAL APPRENTICE.CNM Work Phone: Start: 06-29-2024 UA DIP,URINE HCG (POC) Mike Ceballos MD Work Phone: Start: 05-11-2024 UA DIP,URINE HCG (POC) Mike Ceballos MD Work Phone: Start: 06-06-2020 COVID-19 [...] w/le ast 12 lds w/i&r Giles B Lafshirleyain Work Phone: Start: 06-04-2020 Assay of acetaminophen Sharon Castro Work Phone: Start: 06-04-2020 Assay of ethanol Flynnfamilia nieves Matthew Work Phone: Start: 06-04-2020 Assay of salicylate Flynn [place] Matthew Work Phone: Start: 06-04-2020 Blood count complete auto&auto difrntl wbc Sharon Matthew Work Phone: Start: 06-04-2020 Comprehensive metabo lic panel Sharon Castro Work Phone: Start: 06-04-2020 COVID-19 Sharon bell Work Phone: Start: 06-04-2020 Drug screen class list a Sharonroger Castro Work Phone: Start: 06-04-2020 Gonadotropin chorion ic qualitative Sharon Castro Work Phone: Plan of Treatment Date Care Activity Detail Author Start: 06-04-2030 DTaP/Tdap/Td vaccine (5 - Td) DTaP/Tdap/Td vaccine (5 - Td) [place] Start: 06-04-2030 Urine microalbumin profile DTaP,Tdap,Td Vaccine (8 - Td or Tdap) [facility] Start: 06-08-2026 Screening for malign ant neoplasm of cervix Cervical Cancer Screening [facility] Start: 08-11-2025 GC (Gonorrhea) Scree james (18-24) GC (Gonorrhea) Screening (18-24) [facility] Start: 08-11-2025 Screening for Chlamy jennifer trachomatis Chlamydia Screening (18-) [facility] Start: 07-03-2025 End: 07-03-2025 Patient encounter procedure 07/03/2025 9:10 AM EST Office Visit OB/Gynecology [address] [place] [address] Mike Ceballos MD [address] [place] [address] Annual OB/Gynecology Comment on above: Annual Start: 02-09-2025 RSV Vaccine (1 - Ris k 1-dose series) RSV Vaccine (1 - Risk 1-dose series) [facility] Start: 01-30-2025 Influenza vaccination Influenz a Vaccine (Season Ended) [facility] Start: 11-17-2024 End: 11-17-2024 Patient encounter procedure 11/17/2024 9:00 AM EDT Routine Office Visit [facility] [address] [place] [address] Anatomy/OB [facility] Comment on above: Anatomy/OB Start: 09-08-2024 End: 09-08-2024 Patient encounter procedure 09/08/2024 10:20 AM EDT Routine Office Visit OB/Gynecology [address] [place] [address] Dell Alonso MD [address] [place] [address] 1st OB - LMP 06/30/2024 OB/Gynecology Comment on above: 1st OB - LMP 06/30/19 Start: 08-25-2024 End: 08-25-2024 Patient encounter procedure 08/25/2024 8:30 AM EDT Routine Office Visit OB/Gynecology [address] [place] [address] Dating OB/Gynecology Comment on above: Dating Start: 08-11-2024 End: 11-10-2024 ANEMIA REFLEX PANEL [facility] Work Phone: Comment on above: Expected: 08/11/2024 , Expires: 11/10/2024 Start: 08-11-2024 End: 11-10-2024 Hepatitis C virus Ab [Presence] in Serum [facility] Comment on above: Expected: 08/11/2024 , Expires: 11/10/2024 Start: 08-11-2024 End: 08-11-2025 OBSTETRIC ULTRASOUND [facility] OBSTETRIC ULTRASOUND [facility] Anc Imaging Routine with uncertain dates, antepartum Expected: 08/11/2024, Expires: 08/11/2025 [facility] Comment on above: Expected: 08/11/2024 , Expires: 08/11/2025 Start: 08-11-2024 End: 11-10-2024 RUBELLA IGG ANTIBODY [facility] Comment on above: Expected: 08/11/2024 , Expires: 11/10/2024 Start: 06-29-2024 End: 06-29-2024 Patient encounter procedure 06/29/2024 9:10 AM EST Office Visit OB/Gynecology [address] [place] [address] Mike Ceballos MD [address] [place] [address] Annual OB/Gynecology Comment on above: Annual Start: 06-08-2024 GC (Gonorrhea) Scree james (18-24) GC (Gonorrhea) Screening (18-24) [facility] Start: 06-08-2024 Screening for Chlamy jennifer trachomatis Chlamydia Screening (18-) [facility] Start: 05-11-2024 End: 05-11-2024 Patient encounter procedure 05/11/2024 10:30 AM EST Office Visit OB/Gynecology [address] [place], [place] [address] Mike Ceballos MD [address] [place] [address] IUD REMOVAL OB/Gynecology Comment on above: IUD REMOVAL Start: 02-24-2024 End: 02-24-2024 Patient encounter procedure 02/24/2024 8:00 AM EDT Office Visit OB/Gynecology [address] [place] [address] Mike Ceballos MD [address] [place] [address] IUD Removal OB/Gynecology Comment on above: IUD Removal Start: 01-31-2024 Covid-19 Vaccine ( season) Covid-19 Vaccine ( season) [facility] Start: 01-31-2024 Influenza vaccination [facility] Start: 11-25-2023 End: 02-24-2024 Thyrotropin [Units/volume] in Serum or Plasma [facility] Work Phone: Comment on above: Expected: 11/25/2023 , Expires: 02/24/2024 Start: 01-30-2023 Covid-19 Vaccine ( season) Covid-19 Vaccine ( season) [facility] Start: 01-30-2023 Influenza vaccination Influenza Vacc ine (#1) [facility] Start: 2022 Pap Testing Pap Testing [facility] Start: 06-01-2022 Depression Assessment Depression Ass essment [facility] Start: 2020 Urine microalbumin profile DTaP,Tdap,Td Vaccine (1 - Tdap) [facility] Start: 01-31-2020 Influenza vaccination Flu vaccine (# 1) [facility] [place], [place] Start: 08-21-2019 Chlamydia Screening (18-24) Chlamydia Screening (18-24) [facility] Start: 08-21-2019 GC (Gonorrhea) Scree james (18-24) GC (Gonorrhea) Screening (18-24) [facility] Start: 08-21-2019 Hepatitis C Screening Hepatitis C [facility] Start: 08-21-2019 Hepatitis C screening Hepatitis C [facility] Start: 08-21-2019 HIV Screening HIV Screening [facility] Start: 2017 Meningococcal B Vacc ine (1 of 2 - Standard) Meningococcal B Vaccine (1 of 2 - Standard) [facility] Start: 2017 Meningococcal B Vacc ine: Consider Based On Risk (1 of 2 - Patient Seeks Protection) Meningococcal B Vaccine: Consider Based On Risk (1 of 2 - Patient Seeks Protection) [facility] Start: 2017 Screening for Chlamy jennifer trachomatis Chlamydia screen [place], [place] Start: 2016 HIV screening HIV screen [place], [place] Start: 08-21-2015 Peds To Adult Transi tion Annual Assessment Peds To Adult Transition Annual Assessment [facility] Start: 2013 Peds To Adult Transi tion Initial Discussion Peds To Adult Transition Initial Discussion [facility] Start: 2010 HPV Vaccine (1 - 2-d ose series) HPV Vaccine (1 - 2-dose series) [facility] Start: 05-23-2002 Hepatitis B vaccine (3 of 3 - 3-dose primary series) Hepatitis B vaccine (3 of 3 - 3-dose primary series) [place], [place] Start: 02-20-2002 Covid-19 Vaccine (#1) Covid-19 Vacci ne (#1) [facility] Start: 2001 Hepatitis B Vaccine (1 of 3 - 3-dose series) Hepatitis B Vaccine (1 of 3 - 3-dose series) [facility] Start: 2001 Hepatitis C screening Hepatitis C pr brianne [place], [place] Bacteria identified in Urine by Culture BACTERIAL CULTURE, URINE Microbiology Routine with uncertain dates, antepartum 08/11/2024 9:34 AM EDT [facility] Chlamydia trachomatis+Neisseria gonorrhoeae DNA [Presence] in Unspecified specimen by SANTY with probe detection GONORRHEA/CHLAMYDIA NAAT Lab Routine with uncertain dates, antepartum 08/11/2024 9:34 AM EDT [facility] End: 09-09-2024 Choriogonadotropin.beta subunit [Units/volume] in Serum or Plasma HCG QUANTITATIVE Lab Routine with uncertain dates, antepartum 2x per week for 8 Occurrences starting 08/11/2024 until 09/09/2024, 1 completed [facility] Comment on above: 2x per week for 8 Oc currences starting 08/11/2024 until 09/09/2024, 1 completed Removal intrauterine device iud REMOVE INTRAUTERINE DEVICE Procedures Routine Encounter for IUD removal Ordered: 01/18/2024 [facility] Work Phone: Comment on above: Ordered: 01/18/2024 Removal intrauterine device iud REMOVE INTRAUTERINE DEVICE Procedures Routine Encounter for IUD removal Ordered: 05/11/2024 [facility] Work Phone: Comment on above: Ordered: 05/11/2024 TRICHOMONAS VAGINALI S NAAT TRICHOMONAS VAGINALIS NAAT Lab Routine with uncertain dates, antepartum 08/11/2024 9:34 AM EDT [facility] Immunizations Immunization Date Immunization Notes Care Provider Duc patel 06-04-2020 tetanus toxoid, reduced diphtheria toxoid, and acellular pertussis vaccine, adsorbed [place], [place] 03-07-2019 influenza virus vaccine, unspecified formulation Kiki Milan MECHANICAL APPRENTICE.CLINICAL BIOSTATISTICIAN Work Phone: [facility] NEGATED: Highlighted row has not occurred!07-23-2020 influenza, injectable, quadrivalent, preservative free Kiki [place] MECHANICAL APPRENTICE.CLINICAL BIOSTATISTICIAN Work Phone: [facility] Comment on above: Deferred: Patient Re fused - Not in patient's med bin at time of discharge & patient did not want to wait for it to come from pharmacy Payers Date Payer Category Payer Self-pay [facility] [id number] 2024 Unknown [id number] 2023 Unknown [id number] 2021 Unknown [id number] 2020 Unknown [facility] [id number] 2020-Present [phone] [address] [place] [address] [id number] 2001 Unknown [id number] 2.16.840.1.611993.3.579.2 .479 2001 Unknown [id number] [id number] .479 2001 Unknown [id number] 2.16.840.1.657335.3.579.2 .479 2001 Unknown [id number] 2.16.840.1.492213.3.579.2 .479 2001 Unknown [id number] 2.16.840.1.118260.3.579.2 .479 Unknown [id number] 2.16.840.1.583539.3.579.2 .462 Unknown [id number] 2.16.840.1.109354.3.579.2 .462 Unknown [id number] 2.16.840.1.324788.3.579.2 .462 Unknown [id number] 2.16.840.1.520833.3.579.2 .462 Unknown [id number] 2.16.840.1.993927.3.579.2 .462 Unknown [id number] 2.16.840.1.810920.3.579.2 .462 Unknown [id number] 2.16.840.1.838321.3.579.2 .462 Unknown [id number] 2.840.1.411009.3.579.2 .462 Unknown [id number] 2..840.1.232115.3.579.2 .462 Unknown [id number] 2.840.1.047890.3.579.2 .462 Unknown [id number] 2.840.1.816500.3.579.2 .462 Unknown [id number] .840.1.545098.3.579.2 .462 Unknown [id number] 2.840.1.018566.3.579.2 .462 Unknown [id number] 2.840.1.296797.3.579.2 .462 Unknown [id number] Unknown [id number] Unknown [id number] Unknown [id number] .[id number] Unknown [id number] .[id number] Unknown [id number] .[id number] Unknown [id number] .[id number] Unknown [id number] .[id number] Unknown [id number] Unknown [id number] Unknown [id number] Social History Date Type Detail Facility Start: 06-04-2020 Tobacco [facility]: [facility]-2020 End: 08-11-2024 Tobacco use and exposure [facility]: 06-04-2020 Alcohol intake Lifetime non-d tone (finding) [facility] Start: 06-04-2020 History SDOH Alcohol Frequency 1 [facility] Start: 2001 Sex Assigned At Not on file [place], [place] Exposure to SARS-CoV-2 (event) Not sure [facility] Start: 02-26-2023 End: 08-11-2024 Tobacco smoking status WYIS Ex-smoker [facility] History of tobacco use Current smoker [facility] History of tobacco use Cigarette Smoker [facility] Start: 02-26-2023 End: 05-11-2024 Alcohol intake Current drinker of alcohol (finding) [facility] Start: 02-26-2023 End: 06-08-2023 History of Social function [facility] Start: 02-26-2023 End: 06-08-2023 Tobacco use panel [facility] National Score (1-100), lower number is lower risk 48 [facility] Start: 06-08-2023 Education 13 [facility] Start: 06-29-2024 End: 08-12-2024 Alcoholic beverage intake Ex-drinker (finding) [facility] Start: 07-14-2024 [facility] NEGATED: Highlighted rowStart: NINF History of tobacco use Passive smoker [facility] Functional Status Date Assessment Result Facility 07-23-2020 Are you deaf, or do you have serious difficulty hearing No 07/23/2020 4:53 PM Saira Hi RN No [facility] 07-23-2020 Are you blind, or do you have serious difficulty seeing, even when wearing glasses No 07/23/2020 4:53 PM Saira Hi RN No [facility] 07-23-2020 Do you have serious difficulty walking or climbing stairs No 07/23/2020 4:53 PM Saira Hi RN No [facility] 07-23-2020 Do you have difficul ty dressing or bathing No 07/23/2020 4:53 PM Saira Hi RN No [facility] 07-23-2020 Because of a physica l, mental, or emotional condition, do you have difficulty doing errands alone such as visiting a physician's office or shopping No 07/23/2020 4:53 PM Saira Hi RN No [facility] Mental Status Date Assessment Result Facility 07-23-2020 Because of a physica l, mental, or emotional condition, do you have serious difficulty concentrating, remembering, or making decisions No 07/23/2020 4:53 PM Saira Hi RN No [facility] Clinical Notes 02-26-2023 to 09-22-2024 Telephone Encounter - Dasha Welsh RN - 08/12/2024 10:39 AM EDTTelephone Encounter - Dasha Welsh RN - 08/12/2024 10:39 AM EDTPatient Chacho Pugh MA - 08/11/2024 8:28 AM EDT Note Date & Type Note Facility 09-22-2024 Note Consultation has bee n requested by: Navdeep Jeffrey CNM EDC: Estimated Date of Delivery: 04/14/25 [...] counseling and care are largely handled at [facility] [address] in [place] but she also sees a separate counselor, Kimberly Burr ([facility]) for therapy s/p 2 incidences of hospitalization for anorexia and for episode of suicidal ideation. She states she is stable and under control. Alejandra had a cervical rib removed for thoracic outlet syndrome. She is a twin from an IVF . She desires NIPT/Carrier screening. Imagin. Nava intrauterine with cardiac activity present at 10w 6d with an HERBIE of 04/14/2025. 2. [place] rump length measurement are consistent with supplied dating. 3. Anatomic detail is extremely limited at this early gestational age. No gross abnormalities were noted on this examination. 4. Normal uterus and adnexa. 5. Absence of free fluid in the pelvis. Please refer to the ultrasound report for full details. [facility] Counseling Summary I reviewed the information [...] topics are listed above. Martine Llanes MD [facility] Physician, Maternal- Medicine [facility] 08-12-2024 Telephone encounter Note Patient transferred care for remainder of . She was seen in our office for 1 visit. Please bill all visits. Dasha Welsh RN [facility] 08-12-2024 Miscellaneous Notes Patient transferred care for remainder of . She was seen in our office for 1 visit. Please bill all visits. Dasha Welsh RN documented in this encounter [facility] 08-11-2024 Instructions Chacho Redman MA - 08/11/2024 8:31 AM EDT Please select the following link to access the [facility] Your Guide to a Healthy . [email or web address] documented in this encounter [facility] 08-11-2024 Note HNO ID: [id number] Author: CHACHO REDMAN MA Service: ? Author Type: Nail Setter Type: Progress Notes Filed: 08/11/2024 15:56 Note Text: OB point of care ultrasound was performed. See imaging tab for details. Chacho Redman MA [facility] 08-11-2024 History of Presen t illness Narrative OB point of care ultrasound was performed. See imaging tab for details. Chacho Redman MA *Patient is a twin but mother had IVF *Pt has a history of depression/anxiety/Bipoar 2 diagnosed in [address] Frannie Hudson at [facility] [address] in [place]. She states that she has had 2 inpatient mental hospitalizations for this the last 1 being in 2020. She states she last had suicidal thoughts in 2020. Discussed increased risks of depression during and and importance of reporting the development or worsening of symptoms should they occur. *She has a history of anorexia and sees a therapist at [facility] in [facility]She states she has had inpatient treatment for [...] the following (please check all that apply)? 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 Gender: Male PAST MEDICAL HISTORY Diagnosis Date Anemia 2020 Due to anorexia nervosa Anorexia nervosa Anxiety Bipolar 1 disorder (HCC) Depression Scoliosis TOS (thoracic outlet syndrome) bilateral Trauma Urticaria PAST SURGICAL HISTORY Procedure Laterality Date D&C, DIAG AND/OR THERAPEUTIC EXCISION FIRST AND/OR CERVICAL RIB Right 2014 EXTRACTION ERUPTED TOOTH/EXR SHOULDER SURGERY HX Right 2016 SHOULDER SURGERY HX Left 2020 x2 Current [...] Negative for: Rash, Itching heat rashes- seeing wood 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 As applicable, any other physician, advance practice provider, medical student, or other health professional student that will be observing or involved in the sensitive examination for educational or training purposes was discussed with the Patient or Authorized Sound Technician Supervisor. The Patient or Authorized Sound Technician Supervisor has agreed to proceed with the sensitive [...] formal dating US and TIFFANY or sooner prn. Christianne Carranza APRN.CNM documented in this encounter [facility] 08-09-2024 Note HNO ID: [id number] Author: CHRISTIANNE CARRANZA APRN.CNM Service: ? Author Type: Asp Web Developer Type: Progress Notes Filed: 08/11/2024 15:56 Note Text: *Patient is a twin but mother had IVF *Pt has a history of depression/anxiety/Bipoar 2 diagnosed in [address] Frannie Hudson at [facility] [address] in [place]. She states that she has had 2 inpatient mental hospitalizations for this the last 1 being in 2020. She states she last had suicidal thoughts in 2020. Discussed increased risks of depression during and and importance of reporting the development or worsening of symptoms should they occur. *She has a history of anorexia and sees a therapist at [facility] in [facility].-She states she has had inpatient treatment for [...] the following (please check all that apply)? 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 [facility] 08-09-2024 Telephone encounter Note Patient called back. Can call her around 10:30 or 11:00 today. Thank you. [facility] 08-09-2024 Miscellaneous Notes Patient called back. Can call her around 10:30 or 11:00 today. Thank you. Left message for patient to return phone call to complete nurse intake questions for her upcoming appointment. Patient has an appointment with Christianne Carranza for NOB appointment. I am here today if she calls back or transfer to [facility] documented in this encounter [facility] 08-09-2024 Telephone encounter Note Left message for patient to return phone call to complete nurse intake questions for her upcoming appointment. Patient has an appointment with Christianne Carranza for NOB appointment. I am here today if she calls back or transfer to [facility] 06-29-2024 Note HNO ID: [id number] Author: MIKE CEBALLOS MD Service: ? Author Type: Physician Type: Progress Notes Filed: 07/01/2024 10:13 Note Text: Superintendent System Operation offered: Patient accepts, visit chaperoned by Erica Bevrely MA. 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 As applicable, any other physician, advance practice provider, medical student, or other health professional student that will be observing or involved in the sensitive examination for educational or training purposes was discussed with the Patient or Authorized Sound Technician Supervisor. 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 As applicable, any other physician, advance practice provider, medical student, or other health professional student that will be observing or involved in the sensitive examination for educational or training purposes was discussed with the Patient or Authorized Sound Technician Supervisor. The Patient or Authorized Sound Technician Supervisor has agreed to proceed with the sensitive [...] external genitalia normal, normal Bartholin's glands, urethra, Tekoa's glands, no vulvar lesions, no cervical lesions, [...] up one year or sooner as needed Mike Ceballos MD documented in this encounter [facility] 05-11-2024 Note HNO ID: [id number] Author: MIKE CEBALLOS MD Service: ? Author Type: Physician Type: Progress Notes Filed: 05/11/2024 10:51 Note Text: Superintendent System Operation offered: Patient accepts, visit chaperoned by Erica Roberts presents for removal of IUD due [...] for evaluation if not within 12 months. Mike Ceballos MD [facility] 05-11-2024 History of Presen t illness Narrative Superintendent System Operation offered: Patient accepts, visit chaperoned by Erica [...] for evaluation if not within 12 months. Mike Ceballos MD documented in this encounter [facility] 05-05-2024 Telephone encounter Note Patient called. She is not having any pain. Her appointment on 05/18 is to remove the IUD. Offered a Thursday appointment with AT. Patient declined. Scheduled on 05/11. Patient to call if she chooses to come in for a sooner appointment or with another provider. Flory Manning RN [facility] 05-05-2024 Miscellaneous Notes Patient called. She is [...] Julia Chapa RN documented in this encounter [facility] 05-05-2024 Telephone encounter Note Noe placed 02/26/2023. Please see Pt's mychart message. Julia Chapa RN [facility] 01-18-2024 Telephone encounter Note Patient called and appointment scheduled. Hellen Campoverde RN [facility] 01-18-2024 Miscellaneous Notes Patient called and appointment scheduled. Hellen Campoverde RN filed Please file order in AT absence. Will call Pt to get scheduled once order is filed. Julia Chapa RN Patient is calling requesting to have IUD Liletta removed and would like this with Ayo Ceballos. Please advise patient once order is placed documented in this encounter [facility] 01-18-2024 Telephone encounter Note filed [facility] Work Phone: 01-18-2024 Telephone encounter Note Please file order in AT absence. Will call Pt to get scheduled once order is filed. Julia Chapa RN [facility] 01-18-2024 Telephone encounter Note Patient is calling requesting to have IUD Liletta removed and would like this with Ayo Ceballos. Please advise patient once order is placed [facility] 11-25-2023 Note HNO ID: [id number] Author: ERICA BEVERLY MA Service: ? Author Type: Geoscientist Type: Progress Notes Filed: 11/25/2023 09:37 Note Text: . [facility] 11-25-2023 History of Presen t illness Narrative . Alejandra Kiran is a 23 year old female who presents for problem visit wishing to discuss fertility related to her progestin IUD, Liletta and parental hx of IVF. Reports irregular menses related to anorexia [id number] now resolved and IUD place 2020. Menarche ~ 13 yo and regular until weight loss to 106. Now 160, 5'8. Monthly/cyclic discharge on underwear.. 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 TSH Prepregnacy discussion, start PNVs Lengthy conversation >45 min Mike Ceballos MD documented in this encounter [facility] 11-25-2023 Note HNO ID: [id number] Author: MIKE CEBALLOS MD Service: ? Author Type: Physician Type: Progress Notes Filed: 11/25/2023 09:37 Note Text: Alejandra Kiran is a 23 year old female who presents for problem visit wishing to discuss fertility related to her progestin IUD, Liletta and parental hx of IVF. Reports irregular menses related to anorexia [id number] IUD place 2020. Menarche ~ 13 yo and regular until weight loss to 106. Now 160, 5'8. Monthly/cyclic discharge on underwear.. 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 TSH Prepregnacy discussion, start PNVs Lengthy conversation >45 min Mike Ceballos MD [facility] 02-26-2023 History of Presen t illness Narrative [...] OB History No obstetric history on file. 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 LUI Yates APRN.MARLEY Medical Decision Making: Problems: Low: Acute, uncomplicated illness or injury Risk: Low: Low risk from testing/treatment Medical Decision Making Level: 3 - Low documented in this encounter [facility] Evaluation note Diagnosis Secondary amenorrhea- Primary Absence of menstruation documented in this encounter [facility] note* Diagnosis Irregular menses- Primary Irregular menstrual cycle Intolerance to cold Other general symptoms documented in this encounter [facility] note* Diagnosis Encounter for IUD removal- Primary Encounter for removal of intrauterine contraceptive device documented in this encounter [facility] note* Diagnosis Encounter for IUD removal- Primary Encounter for removal of intrauterine contraceptive device documented in this encounter [facility] note* Diagnosis Encounter for gynecological examination (general) (routine) without abnormal findings- Primary Attempting to conceive documented in this encounter [facility] note* Diagnosis with uncertain dates, antepartum- Primary state, incidental 6 weeks gestation of state, incidental Threatened miscarriage Threatened , unspecified as to episode of care Bipolar 2 disorder (HCC) Other bipolar disorders Anorexia nervosa Anxiety Anxiety state, unspecified Depression, unspecified depression type Cholinergic urticaria Encounter for supervision of high risk in first trimester, antepartum documented in this encounter [facility] for referral (narrative)* Outpatient Procedure (Routine) - Pending Review Specialty Diagnoses / Procedures Referred By Jose Roberto rowley Referred To Contact [facility] Diagnoses Encounter for IUD removal Procedures REMOVE INTRAUTERINE DEVICE REMOVE INTRAUTERINE DEVICE Dell Alonso MD [address] [place] [address] [address] Referral ID Status Reason Start Date Expiration Date Visits Requested Visits Authorized [id number] Pending Review Auto-Generat ed Referral 01/18/2024 01/17/2025 1 1 [facility] for referral (narrative)* Outpatient Procedure (Routine) - New Request Specialty Diagnoses / Procedures Referred By Jose Roberto rowley Referred To Contact [facility] Diagnoses Encounter for IUD removal Procedures REMOVE INTRAUTERINE DEVICE REMOVE INTRAUTERINE DEVICE Mike Ceballos MD [address] [place] [address] [facility] [place] [address] Referral ID Status Reason Start Date Expiration Date Visits Requested Visits Authorized [id number] New Request Auto-Generat ed Referral 4 05/11/2025 1 1 [facility] Summary Purpose Family History No Family History Records FoundNo Family History Records FoundNo Family History Records FoundNo Family History Records FoundNo Family History Records Found Advance Directives No Advanced Directives Records FoundLatest Code Status on File Code Status Date Activated Date Inactivated Comments Full Code 06/05/2020 5:11 PM Additional Source Comments INFORMATION SOURCE (unrecogn ized section and content) DATE CREATED AUTHOR 03/19/2020 [facility] DATE CREATED AUTHOR AUTHOR'S ORGANIZ ATION 06/12/2020 [facility] DATE CREATED AUTHOR AUTHOR'S ORGANIZ ATION 08/25/2024 [facility] DATE CREATED AUTHOR AUTHOR'S ORGANIZ ATION 12/22/2024 [facility] DATE CREATED AUTHOR AUTHOR'S ORGANIZ ATION 01/28/2025 [facility] Source Comments (unrecognize d section and content) In the event this informatio n is protected by the Federal Confidentiality of Alcohol and Drug Abuse Patient Records regulations: The Federal rules restrict any use of the information to criminally investigate or prosecute any alcohol or drug abuse [facility] event this information is protected by the Federal Confidentiality of Alcohol and Drug Abuse Patient Records regulations: The Federal rules restrict any use of the information to criminally investigate or prosecute any alcohol or drug abuse patient.[facility] the event this information is protected by the Federal Confidentiality of Alcohol and Drug Abuse Patient Records regulations: The Federal rules restrict any use of the information to criminally investigate or prosecute any alcohol or drug abuse patient.[facility] the event this information is protected by the Federal Confidentiality of Alcohol and Drug Abuse Patient Records regulations: The Federal rules restrict any use of the information to criminally investigate or prosecute any alcohol or drug abuse patient.[facility] the event this information is protected by the Federal Confidentiality of Alcohol and Drug Abuse Patient Records regulations: The Federal rules restrict any use of the information to criminally investigate or prosecute any alcohol or drug abuse patient.[facility] the event this information is protected by the Federal Confidentiality of Alcohol and Drug Abuse Patient Records regulations: The Federal rules restrict any use of the information to criminally investigate or prosecute any alcohol or drug abuse patient.[facility] the event this information is protected by the Federal Confidentiality of Alcohol and Drug Abuse Patient Records regulations: The Federal rules restrict any use of the information to criminally investigate or prosecute any alcohol or drug abuse patient.[facility] the event this information is protected by the Federal Confidentiality of Alcohol and Drug Abuse Patient Records regulations: The Federal rules restrict any use of the information to criminally investigate or prosecute any alcohol or drug abuse patient.[facility] the event this information is protected by the Federal Confidentiality of Alcohol and Drug Abuse Patient Records regulations: The Federal rules restrict any use of the information to criminally investigate or prosecute any alcohol or drug abuse patient.[facility] the event this information is protected by the Federal Confidentiality of Alcohol and Drug Abuse Patient Records regulations: The Federal rules restrict any use of the information to criminally investigate or prosecute any alcohol or drug abuse patient.[facility] the event this information is protected by the Federal Confidentiality of Alcohol and Drug Abuse Patient Records regulations: The Federal rules restrict any use of the information to criminally investigate or prosecute any alcohol or drug abuse patient.[facility] the event this information is protected by the Federal Confidentiality of Alcohol and Drug Abuse Patient Records regulations: The Federal rules restrict any use of the information to criminally investigate or prosecute any alcohol or drug abuse patient.[facility] Reason for Visit (unrecogniz ed section and content) Reason Comments Establish Care Having sym ptoms- mood swings- missed menses- heartburn- cramps- bloating Reason Comments Discussion Reason Comments Orders Reason Onset Date Comments IUD Removal 05/11/2024 Specialty Diagnoses / Procedures Referred By Jose Roberto rowley Referred To Contact [facility] Diagnoses Encounter for IUD removal Encounter for insertion of intrauterine contraceptive device Procedures REMOVE INTRAUTERINE DEVICE REMOVE INTRAUTERINE DEVICE LEVONORGESTREL IU 52MG 3 YR INSERT INTRAUTERINE DEVICE Dell Alonso MD [address] [place] [address] [facility] [address] [place] [address] Referral ID Status Reason Start Date Expiration Date Visits Requested Visits Authorized [id number] Authorized Auto-Generat ed Referral 01/19/2024 05/31/2024 2 2 Reason Comments Well Woman Reason Comments Initial OB Visit Reason Comments Transferred Care Reason Comments Appointment Care Teams (unrecognized sec tion and content) Police Judge Relationship Specialty Start Date End Date Bertha Wood [address] [place] [address] PCP - General Family Medicine 06/28/20 Marie Carrillo DO Orthopedics 01/29/16 Police Judge Relationship Specialty Start Date End Date Bertha Wood [address] [place] [address] PCP - General Family Medicine 06/28/20 Marie Carrillo DO Orthopedics 01/29/16 Police Judge Relationship Specialty Start Date End Date Bertha Wood [address] [place] [address] PCP - General Family Medicine 06/28/20 Marie Carrillo DO Orthopedics 01/29/16 Police Judge Relationship Specialty Start Date End Date Bertha Wood [address] [place] [address] PCP - General Family Medicine 06/28/20 Marie Carrillo DO Orthopedics 01/29/16 Police Judge Relationship Specialty Start Date End Date Bertha Wood [address] [place] [address] PCP - General Family Medicine 06/28/20 Marie Carrillo DO Orthopedics 01/29/16 Police Judge Relationship Specialty Start Date End Date Bertha Wood [address] [place] [address] PCP - General Family Medicine 06/28/20 Marie Carrillo DO Orthopedics 01/29/16 Police Judge Relationship Specialty Start Date End Date Bertha Wood [address] [place] [address] PCP - General Family Medicine 06/28/20 Marie Carrillo DO Orthopedics 01/29/16 Police Judge Relationship Specialty Start Date End Date Bertha Wood [address] [place] [address] PCP - General Family Medicine 06/28/20 Marie Carrillo DO Orthopedics 01/29/16 Police Judge Relationship Specialty Start Date End Date Bertha Wood [address] [place] [address] PCP - General Family Medicine 06/28/20 Marie Carrillo DO Orthopedics 01/29/16 Police Judge Relationship Specialty Start Date End Date Jasmynevanda Bertha Cathy [address] [facility] [address] [place], [place] [id number] PCP - General Family Medicine 06/28/20 Marie [...] BE BASED ON THE PRIMARY CLINICAL RECORDS. [facility]. provides no warranty or guarantee of the accuracy or completeness of information in this document.
[2025-02-01 07:50] LABS: Glucose GTT-Gestation. Fasting 112 mg/dL (<105)
[2025-02-01 09:24] LABS: Glucose GTT-Gestational 1 Hr 210 mg/dL (<190)
[2025-02-01 10:42] LABS: Glucose GTT-Gestational 2 Hr 225 mg/dL (<165)
[2025-02-01 11:37] LABS: Glucose GTT-Gestational 3 Hr 176 L (<145)
== END | disposition home or self-care (01) ==
LOC: LAB 06:52
PROVIDERS: PCP Family Medicine; Referring Provider Advanced Practice Midwife; Visit Provider Advanced Practice Midwife
DX: O99.810 Abnormal glucose complicating pregnancy (principal); Z3A.00 Weeks of gestation of pregnancy not specified
CPT/HCPCS: 36415; 82951; 82952

== ENCOUNTER 2025-02-15 15:25 | Outpatient (CLI) | payer BC, SELFPAY ==
[2025-02-15 15:41] VITALS: BP 147/75; PULSE 90
[2025-02-15 15:45] VITALS: BMI 36.0
[2025-02-15 16:13] VITALS: BP 132/89; PULSE 98
[2025-02-15 17:01] LABS: ROM Internal Control Test YES-OK TO RESULT pt. (Internal QC); ROM Patient Test Negative (Negative); Record Kit Lot#, ROM+ K3358
--- OUTSIDE RECORDS SUMMARY | 2025-02-15 21:21 | XMS RPT_ITS | CCD ---
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 [place], [address] BUN/CRE 10.2 RATIO Normal 10-20 [facility] Comment on above: Performed By: #### L 509.8002, L501.0250, BTS, L100.0100, L3890.6006 #### [facility] [address] [place], [address] Calcium [Mass/Vol] 9.4 mg/dL Normal 7.6-11.0 [facility] Comment on above: Performed By: #### L 509.8002, L501.0250, BTS, L100.0100, L3890.6006 #### [facility] [address] [place], [address] Chloride [Moles/Vol] 103 mmol/L Normal 98-108 [facility] Comment on above: Performed By: #### L 509.8002, L501.0250, BTS, L100.0100, L3890.6006 #### [facility] [address] [place], [address] CO2 [Moles/Vol] 21.3 mmol/L Normal 21.0-32.0 [facility] Comment on above: Performed By: #### L 509.8002, L501.0250, BTS, L100.0100, L3890.6006 #### [facility] [address] [place], [address] Creatinine [Mass/Vol] 0.50 mg/dL Low 0.70-1.20 [facility] Comment on above: Performed By: #### L 509.8002, L501.0250, BTS, L100.0100, L3890.6006 #### [facility] [address] [place], [address] GAP 11 Normal 5-15 [facility] Comment on above: Performed By: #### L 509.8002, L501.0250, BTS, L100.0100, L3890.6006 #### [facility] [address] [place], [address] GFR/1.73 sq M.predicted among non-blacks MDRD (S/P/Bld) [Vol rate/Area] 135 mL/min/{1.73_m2} Normal >60 [facility] Comment on above: Result Comment: mL/m in/1.73m2 CKD-EPI Creatinine Equation (2020) Performed By: #### L 509.8002, L501.0250, BTS, L100.0100, L3890.6006 #### [facility] [address] [place], [address] Globulin (S) [Mass/Vol] 3.1 g/dL Normal 2.2-4.2 [facility] Comment on above: Performed By: #### L 509.8002, L501.0250, BTS, L100.0100, L3890.6006 #### [facility] [address] [place], [address] Glucose [Mass/Vol] 98 mg/dL Normal 70-99 [facility] Comment on above: Performed By: #### L 509.8002, L501.0250, BTS, L100.0100, L3890.6006 #### [facility] [address] [place], [address] Potassium [Moles/Vol] 3.9 mmol/L Normal 3.3-5.1 [facility] Comment on above: Performed By: #### L 509.8002, L501.0250, BTS, L100.0100, L3890.6006 #### [facility] [address] [place], [address] Sodium [Moles/Vol] 136 mmol/L Normal 133-145 [facility] Comment on above: Performed By: #### L 509.8002, L501.0250, BTS, L100.0100, L3890.6006 #### [facility] [address] [place], [address] T PROT 6.5 g/dL Normal 5.9-8.4 [facility] Comment on above: Performed By: #### L 509.8002, L501.0250, BTS, L100.0100, L3890.6006 #### [facility] [address] [place], [address] Urea nitrogen [Mass/Vol] 5 mg/dL Normal 4-19 [facility] Comment on above: Performed By: #### L 509.8002, L501.0250, BTS, L100.0100, L3890.6006 #### [facility] [address] [place], [address] Washing Machine Installer Office Visit Reporton 12-26-2024 Washing Machine Installer Office Visit Report [facility] [address], [address] [place] [address] OFFICE VISIT Date of Service: 12/26/24 MR#: [id number] Acct: [id number] Name: ALEJANDRA KIRAN Rep #: [id number] : 2000 Provider: Dr. 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 Date Name GA/Weeks Outcome Route Bth Weight Gen Labor Lgth Anesthesia Del Arthuratn Provider FOB 07/30/16 5 elective Delivery Date: [...] ???-???-???-???-???-? ??-???- (more content not included)... Normal [facility] Protein+Creatinine Ratio,Uri neon 12-26-2024 PROT:CRE RATIO 315 mg/g CRE High 0-200 [facility] Comment on above: Performed By: #### L 799.1578 #### [facility] [address] [place], [address] Protein (U) [Mass/Vol] 8.4 mg/dL Normal 0.0-12.0 [facility] Comment on above: Performed By: #### L 500.4710 #### [facility] [address] [place], [place], [address] UR CREAT 26.60 mg/dL Low 28.00-217.00 [facility] Comment on above: Performed By: #### L 500.4710 #### [facility] [address] [place], [place], [address] Urine Cultureon 12-08-2024 URC Mixed Gram Positive Organisms [place] Count 25,000-50,000 MIXC Mixed contaminants. Submit a new specimen if indicated. Normal [facility] Comment on above: Performed By: #### L 500.4710 #### [facility] [address] [place], [place], [address] Washing Machine Installer Office Visit Reporton 12-07-2024 Washing Machine Installer Office Visit Report [facility] [address], [address] [place] [address] OFFICE VISIT Date of Service: 12/07/24 MR#: [id number] Acct: [id number] Name: ALEJANDRA KIRAN Rep #: [id number] : 2000 Provider: Dr. 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 (more content not included)... Normal [facility] CBC W/Diff, Automatedon 07-0 Absolute Lymph 1.34 X10 3/uL Normal 0.83-4.51 [facility] Comment on above: Performed By: #### L 400.0001 #### [facility] [address] [place], [address] Absolute Neut 8.6 X10 3/uL High 2.0-7.7 [facility] Comment on above: Performed By: #### L 400.0001 #### [facility] [address] [place], [address] Basophils/100 WBC (Bld) 0.2 % Normal 0-1 [facility] Comment on above: Performed By: #### L 400.0001 #### [facility] [address] [place], [address] Eosinophils/100 WBC (Bld) 0.7 % Normal 0-5 [facility] Comment on above: Performed By: #### L 400.0001 #### [facility] [address] [place], [address] Erythrocyte distribution width (RBC) [Ratio] 13.1 % Normal 11.6-14.6 [facility] Comment on above: Performed By: #### L 400.0001 #### [facility] [address] [place], [address] Hematocrit (Bld) [Volume fraction] 34.3 % Low 37-47 [facility] Comment on above: Performed By: #### L 400.0001 #### [facility] [address] [place], [address] Hemoglobin (Bld) [Mass/Vol] 11.9 g/dL Low 12.0-15.0 [facility] Comment on above: Performed By: #### L 400.0001 #### [facility] [address] [place], [address] IG% 0.600 Normal 0.0-0.9 [facility] Comment on above: Result Comment: IG% - Immature Granulocytes (promyelocytes, myelocytes and metamyelocytes) > 1% indicates that a LEFT SHIFT is Present. Performed By: #### L 400.0001 #### [facility] [address] [place], [address] Lymphocytes/100 WBC (Bld) 12.4 % Low 19-41 [facility] Comment on above: Performed By: #### L 400.0001 #### [facility] [address] [place], [address] MCH (RBC) [Entitic mass] 32.3 pg High 27.0-32.0 [facility] Comment on above: Performed By: #### L 400.0001 #### [facility] [address] [place], [address] MCHC (RBC) [Mass/Vol] 34.7 g/dL Normal 32-36 [facility] Comment on above: Performed By: #### L 400.0001 #### [facility] [address] [place], [address] MCV (RBC) [Entitic vol] 93.2 fL Normal 81-99 [facility] Comment on above: Performed By: #### L 400.0001 #### [facility] [address] [place], [address] Monocytes/100 WBC (Bld) 6.9 % Normal 0-10 [facility] Comment on above: Performed By: #### L 400.0001 #### [facility] [address] [place], [address] Neutrophils/100 WBC (Bld) 79.2 % High 47-70 [facility] Comment on above: Performed By: #### L 400.0001 #### [facility] [address] [place], [address] Nucleated RBC (Bld) [#/Vol] 0 10*3/uL Normal 0-5 [facility] Comment on above: Performed By: #### L 400.0001 #### [facility] [address] [place], [address] Platelet mean volume (Bld) [Entitic vol] 10.6 fL Normal 6.2-12.0 [facility] Comment on above: Performed By: #### L 400.0001 #### [facility] [address] [place], [address] Platelets (Bld) [#/Vol] 246 10*3/uL Normal 150-450 [facility] Comment on above: Performed By: #### L 400.0001 #### [facility] [address] [place], [address] RBC (Bld) [#/Vol] 3.68 10*6/uL Low 4.2-5.4 [facility] Comment on above: Performed By: #### L 400.0001 #### [facility] [address] [place], [address] RDW SD 44.2 fl High 35.1-43.9 [facility] Comment on above: Performed By: #### L 400.0001 #### [facility] [address] [place], [address] WBC (Bld) [#/Vol] 10.8 10*3/uL Normal 4.4-11.0 [facility] Comment on above: Performed By: #### L 400.0001 #### [facility] [address] [place], [address] Comprehensive Metabolic Prof [facility] 12-06-2024 Albumin [Mass/Vol] 3.4 g/dL Low 3.5-5.0 [facility] Comment on above: Performed By: #### L 400.0001 #### [facility] [address] [place], [address] Albumin/Globulin [Mass ratio] 1.1 {ratio} Normal 0.9-2.4 [facility] Comment on above: Performed By: #### L 400.0001 #### [facility] [address] [place], [address] ALK PHOS 70 U/L Normal 35-104 [facility] Comment on above: Performed By: #### L 400.0001 #### [facility] [address] [place], [address] ALT [Catalytic activity/Vol] 10 U/L Normal <=34 [facility] Comment on above: Performed By: #### L 400.0001 #### [facility] [address] [place], [address] AST [Catalytic activity/Vol] 17 U/L Normal <=31 [facility] Comment on above: Performed By: #### L 400.0001 #### [facility] [address] [place], [address] BUN/CRE 7.7 RATIO Low 10-20 [facility] Comment on above: Performed By: #### L 400.0001 #### [facility] [address] [place], [address] Calcium [Mass/Vol] 8.9 mg/dL Normal 7.6-11.0 [facility] Comment on above: Performed By: #### L 400.0001 #### [facility] [address] [place], [address] Chloride [Moles/Vol] 104 mmol/L Normal 98-108 [facility] Comment on above: Performed By: #### L 400.0001 #### [facility] [address] [place], [address] CO2 [Moles/Vol] 23.0 mmol/L Normal 21.0-32.0 [facility] Comment on above: Performed By: #### L 400.0001 #### [facility] [address] [place], [address] Creatinine [Mass/Vol] 0.52 mg/dL Low 0.70-1.20 [facility] Comment on above: Performed By: #### L 400.0001 #### [facility] [address] [place], [address] ECRCL 199.56 ml/min Normal 50-250 [facility] Comment on above: Performed By: #### L 400.0001 #### [facility] [address] [place], [address] GAP 10 Normal 5-15 [facility] Comment on above: Performed By: #### L 400.0001 #### [facility] [address] [place], [address] GFR/1.73 sq M.predicted among non-blacks MDRD (S/P/Bld) [Vol rate/Area] 134 mL/min/{1.73_m2} Normal >60 [facility] Comment on above: Result Comment: mL/m in/1.73m2 CKD-EPI Creatinine Equation (2020) Performed By: #### L 400.0001 #### [facility] [address] [place], [address] Globulin (S) [Mass/Vol] 3.0 g/dL Normal 2.2-4.2 [facility] Comment on above: Performed By: #### L 400.0001 #### [facility] [address] [place], [address] Glucose [Mass/Vol] 94 mg/dL Normal 70-99 [facility] Comment on above: Performed By: #### L 400.0001 #### [facility] [address] [place], [address] Potassium [Moles/Vol] 3.6 mmol/L Normal 3.3-5.1 [facility] Comment on above: Performed By: #### L 400.0001 #### [facility] [address] [place], [address] Sodium [Moles/Vol] 137 mmol/L Normal 133-145 [facility] Comment on above: Performed By: #### L 400.0001 #### [facility] [address] [place], [address] T BILI < 0.15 Normal 0.00-1.30 [facility] Comment on above: Performed By: #### L 400.0001 #### [facility] [address] [place], [address] T PROT 6.5 g/dL Normal 5.9-8.4 [facility] Comment on above: Performed By: #### L 400.0001 #### [facility] [address] [place], [address] Urea nitrogen [Mass/Vol] 4 mg/dL Normal 4-19 [facility] Comment on above: Performed By: #### L 400.0001 #### [facility] [address] [place], [address] Emergency Department Summary on 12-06-2024 Emergency Department Summary [facility] Medical Records Department [address] [place] [address] Emergency Department Summary 12/06/24 MR#: [id number] Acct: [id number] Name: ALEJANDRA KIRAN Rep #: [id number] : 2000 24 From: Markie Quiros DO PCP: Dr. Sundeep Sher, Status:REG ER Location: ED HPI History of Present Illness Chief Complaint: Nausea/Vomiting Narrative Narrative: Chief complaint and HPI: Nausea and vomiting. 24-year-old female who is G1, P0 at 21 weeks presents for evaluation of nausea and vomiting. Patient follows with [place] [employer]. Patient states yesterday she developed nausea and vomiting. States she has been taking p.o. Zofran, prochlorperazine, and promethazine with some improvement. States her nausea and vomiting continued today in which she feels dehydrated. 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 Normal [facility] Urinalysis, Completeon 12-06 AMORPHOUS 1+ Normal [facility] Comment on above: Order Comment: CLEAN CATCH Performed By: #### L 400.0001 #### [facility] [address] [place], [address] BACTERIA 1+ /hpf Normal None Seen [facility] Comment on above: Order Comment: CLEAN CATCH Performed By: #### L 400.0001 #### [facility] [address] [place], [address] EPI,SQUAMOUS 10-25 SEEN Normal 5-10 [facility] Comment on above: Order Comment: CLEAN CATCH Performed By: #### L 400.0001 #### [facility] [address] [place], [address] RBC 0-5 SEEN Normal 0-5 [facility] Comment on above: Order Comment: CLEAN CATCH Performed By: #### L 400.0001 #### [facility] [address] [place], [address] WBC 10-25 SEEN Normal 0-5 [facility] Comment on above: Order Comment: CLEAN CATCH Performed By: #### L 400.0001 #### [facility] [address] [place], [address] Mucus Ql (Urine sed) 0 SEEN Normal [facility] Comment on above: Order Comment: CLEAN CATCH Performed By: #### L 400.0001 #### [facility] [address] [place], [address] Washing Machine Installer Office Visit Reporton 11-09-2024 Washing Machine Installer Office Visit Report [facility] [address], [address] [place] [address] OFFICE VISIT Date of Service: 11/09/24 MR#: [id number] Acct: [id number] Name: ALEJANDRA KIRAN Rep #: [id number] : 2000 Provider: JEREMIE colorado Age/Sex: 24/F Location: [facility] [place] Status: Signed Intake Vital Signs 08/24/24 15:06 11/04/24 08:11 11/09/24 15:30 Height 5 ft 7 in 5 ft 7 in 5 ft 7 in Weight: 207 lb 4 oz BMI 32.4 BP 118/84 H Intake Visit Reasons: 19wk ob, repeat chlamydia test Chief Complaint: 19 Week OB Customer Success Associate Required: No Is patient in pain?: No [...] physical activity do you participate in: none puma/worship: Oriental Orthodox seatbelt use: always do you feel safe at home: Yes 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 (more content not included)... Normal [facility] Chlamydia/GC SANTY aptimaon CHLAMY,NUC ACID Negative Normal Negative [facility] Comment on above: Performed By: #### L 400.0001 #### [facility] [address] [place], [place], [address] GC BY NUC ACID Negative Normal Negative [facility] Comment on above: Result Comment: Perf ormed at: =G - [facility] [address] [id number] Formula Mixer: Monisha Ross MD, Phone: [phone] Performed By: #### L 400.0001 #### [facility] [address] [place], [address] Washing Machine Installer Office Visit Reporton 11-04-2024 Washing Machine Installer Office Visit Report [facility] [address], [address] [place] [address] OFFICE VISIT Date of Service: 11/04/24 MR#: [id number] Acct: [id number] Name: ALEJANDRA KIRAN Rep #: [id number] : 2000 Provider: RENUKA goldman Age/Sex: 24/F Location: [facility] [place] Status: Signed with Addenda ADDENDUM by Debbie Kumar on 11/04/24 at 0912 Office Procedure Documentation entered by Debbie Kumar 11/04/24 09:12: Injections Is this a patient provided medication?: Yes Office Meds RhoGAM Ultra-Filtered PLUS 1,500 unit (300 mcg) intramuscular syringe Performing Provider: Angela Vigil CNM Performing Location: [facility] Administered by: Debbie Kumar on 11/04/24 09:11 Dose Route Admin Location Dispensed Lot Number Expiration Date [facility] Man ufacturer 1,500 unit IM left gluteus 1 ea [id number] 11/01/26 05133-668-53 [facility] [employer] Date cc: * Signed Intake Vital Signs 10/19/24 09:50 11/04/24 08:11 11/04/24 08:11 Height 5 ft 7 in 5 ft 7 in 5 ft 7 in Weight: 205 lb BMI 32.1 BP 132/81 H Intake Visit Reasons: spotting needs [facility] Customer Success Associate Required: No Is patient in pain?: No [...] 0 current occupational status: employed current occupation: [employer] current occupational exposures/hazards: No pets and animals: [...] physical activity do you participate in: none puma/worship: Oriental Orthodox seatbelt use: always do you feel safe at home: Yes 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 Normal [facility] Type AND Screenon 11-04-2024 Ab SCREEN GEL Negative Normal [facility] Comment on above: Order Comment: Y Performed By: #### L 500.6625 #### [facility] [address] [place], [address] Washing Machine Installer Office Visit Reporton 10-13-2024 Washing Machine Installer Office Visit Report [facility]'s [address], [address] [place] [address] OFFICE VISIT Date of Service: 10/13/24 MR#: [id number] Acct: [id number] Name: ALEJANDRA KIRAN Rep #: [id number] : 2000 Provider: RENUKA Inman ams Age/Sex: 24/F Location: [facility] Status: Signed Intake Vital Signs 08/24/24 15:06 10/05/24 11:58 10/13/24 14:41 Height 5 ft 7 in 5 ft 7 in 5 ft 7 in Weight: 194 lb 8 oz BMI 30.4 BP 123/76 H Intake Visit Reasons: 15wk ob Chief Complaint: 15wk OB Customer Success Associate Required: No Is patient in pain?: No [...] PO Q8H PRN nausea and 08/22/ 5 10/13/24 Rx tablet vomiting #30 tabs promethazine 12.5 mg tablet 12.5 mg PO Q6H PRN nausea and 04/06/2510/13/24 Rx vomiting 30 days #120 tabs prochlorperazine [...] 0 current occupational status: employed current occupation: [employer] current occupational exposures/hazards: No pets and animals: [...] physical activity do you participate in: none puma/worship: Oriental Orthodox seatbelt use: always do you feel safe at home: Yes 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 Normal [facility] Washing Machine Installer Office Visit Reporton 10-05-2024 Washing Machine Installer Office Visit Report [facility] [address], [address] [place] [address] OFFICE VISIT Date of Service: 10/05/24 MR#: [id number] Acct: [id number] Name: ALEJANDRA KIRAN Rep #: [id number] : 2000 Provider: Dr. Tiera santamaria MD Age/Sex: 24/F Location: [facility] Status: Signed Intake Vital Signs 09/14/24 14:59 10/05/24 11:12 Height 5 ft 7 in 5 ft 7 in Weight: 193 lb BMI 30.2 BP 114/72 Intake Visit Reasons: 12w, hyperemesis Customer Success Associate Required: No Is patient in pain?: No [...] 4 mg PO Q8H PRN nausea and 10/05/24 Rx tablet vomiting #30 tabs promethazine 12.5 mg tablet 12.5 mg PO Q6H PRN nausea and 04/06/2510/05/24 Rx vomiting 30 days #120 tabs prochlorperazine [...] physical activity do you participate in: none puma/worship: Oriental Orthodox seatbelt use: always do you feel safe at home: Yes 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 Date Name GA/Weeks Outcome Route Bth Weight Gen Labor Lgth Anesthesia Del [facility] Provider FOB 07/30/16 5 elective Delivery Date: [...] ??-???- Gluco (more content not included)... Normal [facility] CBC W/Diff, Automatedon 04-2 Absolute Lymph 1.38 X10 3/uL Normal 0.83-4.51 [facility] Comment on above: Performed By: #### L 400.0001 #### [facility] [address] [place], [address] Absolute Neut 9.1 X10 3/uL High 2.0-7.7 [facility] Comment on above: Performed By: #### L 400.0001 #### [facility] [address] [place], [address] Basophils/100 WBC (Bld) 0.3 % Normal 0-1 [facility] Comment on above: Performed By: #### L 400.0001 #### [facility] [address] [place], [address] Eosinophils/100 WBC (Bld) 0.8 % Normal 0-5 [facility] Comment on above: Performed By: #### L 400.0001 #### [facility] [address] [place], [address] Erythrocyte distribution width (RBC) [Ratio] 13.6 % Normal 11.6-14.6 [facility] Comment on above: Performed By: #### L 400.0001 #### [facility] [address] [place], [address] Hematocrit (Bld) [Volume fraction] 38.6 % Normal 37-47 [facility] Comment on above: Performed By: #### L 400.0001 #### [facility] [address] [place], [address] Hemoglobin (Bld) [Mass/Vol] 13.3 g/dL Normal 12.0-15.0 [facility] Comment on above: Performed By: #### L 400.0001 #### [facility] [address] [facility] [place], [address] IG% 0.500 Normal 0.0-0.9 [facility] Comment on above: Result Comment: IG% - Immature Granulocytes (promyelocytes, myelocytes and metamyelocytes) > 1% indicates that a LEFT SHIFT is Present. Performed By: #### L 400.0001 #### [facility] [address] [place] [address]. [place], [address] Lymphocytes/100 WBC (Bld) 12.0 % Low 19-41 [facility] Comment on above: Performed By: #### L 400.0001 #### [facility] [address] [place], [place] [address]. [place], [address] MCH (RBC) [Entitic mass] 30.6 pg Normal 27.0-32.0 [facility] Comment on above: Performed By: #### L 400.0001 #### [facility] [place], [address] MCHC (RBC) [Mass/Vol] 34.5 g/dL Normal 32-36 [facility] Comment on above: Performed By: #### L 400.0001 #### [facility] [address] [facility] [place], [address] MCV (RBC) [Entitic vol] 88.7 fL Normal 81-99 [facility] Comment on above: Performed By: #### L 400.0001 #### [facility] [address] [facility] [place], [address] Monocytes/100 WBC (Bld) 7.5 % Normal 0-10 [facility] Comment on above: Performed By: #### L 400.0001 #### [facility] [address] [place], [address] Neutrophils/100 WBC (Bld) 78.9 % High 47-70 [facility] Comment on above: Performed By: #### L 400.0001 #### [facility] [address] [place], [address] Nucleated RBC (Bld) [#/Vol] 0 10*3/uL Normal 0-5 [facility] Comment on above: Performed By: #### L 400.0001 #### [facility] [address] [place], [address] Platelet mean volume (Bld) [Entitic vol] 10.6 fL Normal 6.2-12.0 [facility] Comment on above: Performed By: #### L 400.0001 #### [facility] [address] [place], [address] Platelets (Bld) [#/Vol] 274 10*3/uL Normal 150-450 [facility] Comment on above: Performed By: #### L 400.0001 #### [facility] [address] [place], [address] RBC (Bld) [#/Vol] 4.35 10*6/uL Normal 4.2-5.4 [facility] Comment on above: Performed By: #### L 400.0001 #### [facility] [address] [place], [address] RDW SD 44.1 fl High 35.1-43.9 [facility] Comment on above: Performed By: #### L 400.0001 #### [facility] [address] [place], [address] WBC (Bld) [#/Vol] 11.5 10*3/uL High 4.4-11.0 [facility] Comment on above: Performed By: #### L 400.0001 #### [facility] [address] [facility] [place], [address] HIVon 09-19-2024 HIV Non-Reactive Normal Nonreactive [facility] Comment on above: Result Comment: Non- Reactive Reactive Repeatedly reactive samples must be confirmed according to CDC recommended confirmatory algorithms. The subresults for either HIVAG or AHIV can be used as an aid in the selection of the confirmation algorithm for reactive samples. [facility] specimens with [facility]. Order the HIV antibody detection and differentiation: lc#[id number] Performed By: #### L 500.4710 #### [facility] [address] [facility] [place], [address] Hepatitis C Antibodyon 09-19 Hepatitis C Ab Non-Reactive Normal Nonreactive [facility] Comment on above: Result Comment: Reac tive: Presumptive evidence of antibodies to HCV. Follow CDC recommendations for supplemental testing. Non-Reactive: Antibodies to HCV were not detected; does not exclude the possibility of exposure to HCV Reactive Results are presumptive evidence of antibodies to HCV. Follow CDC recommendations for supplemental testing. Order confirmation testing: HCV Quant by PCR testing - HCVPCR #[id number] Non Reactive: < 0.8 Equivocal: >/= 0.8 to < 1.0 Reactive: >/= 1.0 The CDC requires that a reactive/equivocal HCV antibody result be sent out for confirmation. HCV Quant by PCR testing. Performed By: #### L 500.4710 #### [facility] [place], [address] L3890.6102on 09-19-2024 HEP B Surf Ag Non-Reactive Normal Nonreactive [facility] Comment on above: Result Comment: Reac tive: Presumptive evidence of HBV. Repeatedly reactive samples must be confirmed using a neutralization test ([employer] HBsAg Confirmatory Test) Non-Reactive: HBsAg not detected; does not exclude the possibility of exposure to HBV Performed By: #### L 500.4710 #### [facility] [address] [facility] [place], [address] L509.4006on 09-19-2024 Rubella IgG REAC Normal Nonreactive [facility] Comment on above: Result Comment: Anti body Result: Interpretation Non-Reactive: Non-Immune Reactive: Immune The following results were obtained with the [employer] Rubella IgG assay. Results from assays of other manufacturers cannot be used interchangeably. Performed By: #### L 400.0001 #### [facility] [address] [place], [address] NATERAon 09-19-2024 NATURA SEE SCANNED REPORT Normal [facility] Comment on above: Performed By: #### L 400.0001 #### [facility] [address] [place], [address] Syphilis Antibodieson 2024 Syphilis Abs Non-Reactive Normal Nonreactive [facility] Comment on above: Performed By: #### L 500.4710 #### [facility] [address] [place], [address] Type AND Screenon 09-19-2024 Ab SCREEN GEL Negative Normal [facility] Comment on above: Order Comment: CLEAN CATCH Performed By: #### L 400.0001 #### [facility] [address] [place], [address] Washing Machine Installer Office Visit Reporton 09-14-2024 Washing Machine Installer Office Visit Report [facility] [address], [address] [place] [address] OFFICE VISIT Date of Service: 09/14/24 MR#: [id number] Acct: [id number] Name: ALEJANDRA KIRAN Rep #: [id number] : 2000 Provider: Dr. 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 ??-?? (more content not included)... Normal [facility] Transvaginal w/Preg USon Transvaginal w/Preg US [facility] [address] [place], [place] [address] Transvaginal w/Preg US MR#: [id number] Acct: [id number] Name: ALEJANDRA KIRAN Rep #: [id number] : 2000 F 24 From: Pablo steiner MD PCP: Dr. Bertha Wood MD Status: REG CLI Study: Transvaginal w/Preg US Date of Exam: 08/31/24 Exam# [id number] Ordering Dr: Flory Leigh DO PROCEDURE: TRANSVAGINAL [...] and unremarkable. DIMENSIONS: Parameter Measurement / EGA Dozier Rump Length: 1.42 cm/7 weeks and 5 [...] 7 weeks and 5 days. Reading Location: [place] [address] CC: Dr. Bertha Wood MD; Dr. Flory Leigh DO [employer]: Signed Normal [facility] Washing Machine Installer Office Visit Reporton 08-24-2024 Washing Machine Installer Office Visit Report [facility]'s [address], [address] [place] [address] OFFICE VISIT Date of Service: 08/24/24 MR#: [id number] Acct: [id number] Name: ALEJANDRA KIRAN Rep #: [id number] : 2000 Provider: Dr. 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 (more content not included)... Normal [facility] Urine Cultureon 08-21-2024 URC Below infection level. Mixed Gram Positive Organisms [place] Count <1000 MIXC Mixed contaminants. Submit a new specimen if indicated. Normal [facility] Comment on above: Performed By: #### L 400.0001 #### [facility] [place], [address] Washing Machine Installer Office Visit Reporton 08-19-2024 Washing Machine Installer Office Visit Report [facility] [address], [address] [place] [address] OFFICE VISIT Date of Service: 08/19/24 MR#: [id number] Acct: [id number] Name: ALEJANDRA KIRAN Rep #: [id number] : 2000 Provider: RENUKA Inman ams Age/Sex: 23/F Location: 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 Normal [facility] Urine Drug Screen (VISTA)on 08-19-2024 AMPHETAMINES Negative Normal <1000 ng/mL [facility] Comment on above: Order Comment: CLEAN CATCH Performed By: #### L 400.0001 #### [facility] [place], [address] BARBITIURATES Negative Normal < 200 ng/mL [facility] Comment on above: Order Comment: CLEAN CATCH Performed By: #### L 400.0001 #### [facility] [address] [facility] [address] BENZODIAZIPINE Negative Normal < 200 ng/mL [facility] Comment on above: Order Comment: CLEAN CATCH Performed By: #### L 400.0001 #### [facility] [address] [facility] [address] BUP Ur Drug Scr Negative Normal < 200 ng/mL [facility] Comment on above: Order Comment: CLEAN CATCH Performed By: #### L 400.0001 #### [facility] [address] [place] [address] COCAINE Negative Normal < 300 ng/mL [facility] Comment on above: Order Comment: CLEAN CATCH Performed By: #### L 400.0001 #### [facility] [address] [place] [address] Fentanyl Negative Normal [facility] Comment on above: Order Comment: CLEAN CATCH Performed By: #### L 400.0001 #### [facility] [address] [place] [address] METHADONE Negative Normal < 300 ng/mL [facility] Comment on above: Order Comment: CLEAN CATCH Performed By: #### L 400.0001 #### [facility] [address] [place] [address] OPIATES Negative Normal < 300 ng/mL [facility] Comment on above: Order Comment: CLEAN CATCH Performed By: #### L 400.0001 #### [facility] [address] [place] [address] OXYCODONE Negative Normal < 100 ng/mL [facility] Comment on above: Order Comment: CLEAN CATCH Performed By: #### L 400.0001 #### [facility] [address] [place] [address] PCP Negative Normal < 25 ng/mL [facility] Comment on above: Order Comment: CLEAN CATCH Performed By: #### L 400.0001 #### [facility] [address] [place], [place], [address] THC Negative Normal < 50 ng/mL [facility] Comment on above: Order Comment: CLEAN CATCH Performed By: #### L 400.0001 #### [facility] [address] [place], [place], [address] B-HCG SerPl-[place]Cn[place] 5 [place] [address].0 m[IU]/mL High <5.0 [facility] Comment on above: Order Comment: Speci men Type: BLOOD SPECIMENOrdering Facility: [facility] Address: [address] [place] [address] Result Comment: DIEGO TITATIVE HCG NORMAL RANGES Weeks of Gestation (Weeks Since LMP) 3 Weeks (5.8-71.2 mIU/mL) 4 Weeks (9.5-750 mIU/mL) 5 Weeks (217-7138 mIU/mL) 6 Weeks (158-36459 mIU/mL) 7 Weeks (3697-977451 mIU/mL) 8 Weeks (98269-875513 mIU/mL) 9 Weeks (56887-495118 mIU/mL) 10 Weeks (63057-889581 mIU/mL) 12 Weeks (46470-602512 mIU/mL) Referenced to 4th IS of [facility] Performed By: #### 2 1198-7 ####[facility] LAB[facility]IA [id number] [address] [place] B-HCG SerPl-[place]Cn[place] 5 [place] [address].0 m[IU]/mL High <5.0 [facility] Comment on above: Order Comment: Speci men Type: BLOOD SPECIMENOrdering Facility: [facility] Address: [address] [place] [address] Result Comment: DIEGO TITATIVE HCG NORMAL RANGES Weeks of Gestation (Weeks Since LMP) 3 Weeks (5.8-71.2 mIU/mL) 4 Weeks (9.5-750 mIU/mL) 5 Weeks (217-7138 mIU/mL) 6 Weeks (158-79851 mIU/mL) 7 Weeks (3697-956898 mIU/mL) 8 Weeks (35202-444420 mIU/mL) 9 Weeks (63032-099964 mIU/mL) 10 Weeks (22442-713796 mIU/mL) 12 Weeks (25794-531213 mIU/mL) Referenced to 4th IS of [facility] Performed By: #### 2 1198-7 ####[facility] LABCLIA [id number] [address] OF [facility] CNPNon 08-12-2024 CNPN Telephone (OBGYWM) ALEJANDRA KIRAN ([id number]) 2 F Date Time Provider Department 08/12/24 [...] Status:Closed by DASHA WELSH on 08/12/[address] [facility] HCG.beta subunit Qn 8329.0 m[IU]/mL High <5.0 [facility] Comment on above: Order Comment: Speci men Type: BLOOD SPECIMENOrdering Facility: [facility] Address: [address] [place] [address] Result Comment: DIEGO TITATIVE HCG NORMAL RANGES Weeks of Gestation (Weeks Since LMP) 3 Weeks (5.8-71.2 mIU/mL) 4 Weeks (9.5-750 mIU/mL) 5 Weeks (217-7138 mIU/mL) 6 Weeks (158-53091 mIU/mL) 7 Weeks (3697-561238 mIU/mL) 8 Weeks (86023-714273 mIU/mL) 9 Weeks (48564-628817 mIU/mL) 10 Weeks (23086-166130 mIU/mL) 12 Weeks (09367-111352 mIU/mL) Referenced to 4th IS of [facility] Performed By: #### 2 1198-7 ####[facility] LABCLIA [id number] [place] [address] [place] Bacteria Ur Culton Bacteria identified Cx Nom (U) ORGANISM ID: 1 10,000 -<50,000 CFU/ml Normal urogenital jhony Normal [facility] Comment on above: Performed By: #### 6 30-4 ####[facility] LABCLIA [id number] [place] [address] [place] C. trachomatis+N. gonorrhoea e DNA SANTY+probe Ql (Unsp spec)on 08-11-2024 C. trachomatis rRNA SANTY+probe Ql (Unsp spec) Not detected Normal Not detected [facility] Comment on above: Order Comment: Speci men Type: SWABOrdering Facility: [facility] Address: [address] [place] [address] Performed By: #### 3 6902-5, STEVIE ####[facility] LABIA [id number] [address] [place] N. gonorrhoeae rRNA SANTY+probe Ql (Unsp spec) Not detected Normal Not detected [facility] Comment on above: Order Comment: Speci men Type: SWABOrdering Facility: [facility] Address: [address] [place] [address] Performed By: #### 3 6902-5, STEVIE ####[facility] LABIA [id number] [place] [address] [place] CBC W Auto Differential pane l (Bld)on 08-11-2024 Basophils (Bld) [#/Vol] 10*3/uL Normal <0.11 [facility] Comment on above: Order Comment: Speci men Type: BLOOD SPECIMENOrdering Facility: [facility] Address: [address] [place] [address] Performed By: #### 5 7021-8 ####[facility] MILLSHINEWNCLIA [id number] [place] [address] [place] Basophils/100 WBC (Bld) 0.2 % Normal [facility] Comment on above: Order Comment: Speci men Type: BLOOD SPECIMENOrdering Facility: [facility] Address: [address] [place] [address] Performed By: #### 5 7021-8 ####[facility] MILLWNCLIA [id number] [place] [address] [place] Differential cell count method Nom (Bld) Auto Normal [facility] Comment on above: Order Comment: Speci men Type: BLOOD SPECIMENOrdering Facility: [facility] Address: [address] [place] [address] Performed By: #### 5 7021-8 ####[facility] MILLWNCLIA [id number] [place] [address] [place] Eosinophils (Bld) [#/Vol] 0.11 10*3/uL Normal <0.46 [facility] Comment on above: Order Comment: Speci men Type: BLOOD SPECIMENOrdering Facility: [facility] Address: [address] [place] [address] Performed By: #### 5 7021-8 ####[facility] MILLTOWNCLIA [id number] [place] [address] [place] Eosinophils/100 WBC (Bld) 1.4 % Normal [facility] Comment on above: Order Comment: Speci men Type: BLOOD SPECIMENOrdering Facility: [facility] Address: [address] [place] [address] Performed By: #### 5 7021-8 ####[facility] MILLWNCLIA [id number] [place] [address] [place] Erythrocyte distribution width (RBC) [Ratio] 14.1 % Normal 11.5-15.0 [facility] Comment on above: Order Comment: Speci men Type: BLOOD SPECIMENOrdering Facility: [facility] Address: [address] [place], [place] [address] Performed By: #### 5 7021-8 ####[facility] [id number] [place] [address] [place] Hematocrit (Bld) [Volume fraction] 40.2 % Normal 36.0-46.0 [facility] Comment on above: Order Comment: Speci men Type: BLOOD SPECIMENOrdering Facility: [facility] Address: [address] [place] [address] Performed By: #### 5 7021-8 ####[facility] [id number] [place] [address] [place] Hemoglobin (Bld) [Mass/Vol] 13.7 g/dL Normal 11.5-15.5 [facility] Comment on above: Order Comment: Speci men Type: BLOOD SPECIMENOrdering Facility: [facility] Address: [address] [place] [address] Performed By: #### 5 7021-8 ####[facility] [id number] [place] [address] [place] Immature granulocytes (Bld) [#/Vol] 10*3/uL Normal <0.10 [facility] Comment on above: Order Comment: Speci men Type: BLOOD SPECIMENOrdering Facility: [facility] Address: [address] [place] [address] Performed By: #### 5 7021-8 ####[facility] WESTNCLIA [id number] [place] [address] [place] Immature granulocytes/100 WBC (Bld) 0.1 % Normal [facility] Comment on above: Order Comment: Speci men Type: BLOOD SPECIMENOrdering Facility: [facility] Address: [address] [place] [address] Performed By: #### 5 7021-8 ####[facility] [id number] [place] [address] [place] Lymphocytes (Bld) [#/Vol] 1.41 10*3/uL Normal 1.00-4.00 [facility] Comment on above: Order Comment: Speci men Type: BLOOD SPECIMENOrdering Facility: [facility] Address: [address] [place] [address] Performed By: #### 5 7021-8 ####[facility] [id number] [place] [address] [place] Lymphocytes/100 WBC (Bld) 17.3 % Normal [facility] Comment on above: Order Comment: Speci men Type: BLOOD SPECIMENOrdering Facility: [facility] Address: [address] [place] [address] Performed By: #### 5 7021-8 ####[facility] [id number] [place] [address] [place] MCH (RBC) [Entitic mass] 30.0 pg Normal 26.0-34.0 [facility] Comment on above: Order Comment: Speci men Type: BLOOD SPECIMENOrdering Facility: [facility] Address: [address] [place] [address] Performed By: #### 5 7021-8 ####[facility] [id number] [place] [address] [place] MCHC (RBC) [Mass/Vol] 34.1 g/dL Normal 30.5-36.0 [facility] Comment on above: Order Comment: Speci men Type: BLOOD SPECIMENOrdering Facility: [facility] Address: [address] [place] [address] Performed By: #### 5 7021-8 ####[facility] BRENNA[facility]ondaNCL[facility] [id number] [place] [address] [place] MCV (RBC) [Entitic vol] 88.2 fL Normal 80.0-100.0 [facility] Comment on above: Order Comment: Speci men Type: BLOOD SPECIMENOrdering Facility: [facility] Address: [address] [place] [address] Performed By: #### 5 7021-8 ####[facility] WESTNCA [id number] [place] [address] [place] Monocytes (Bld) [#/Vol] 0.66 10*3/uL Normal <0.87 [facility] Comment on above: Order Comment: Speci men Type: BLOOD SPECIMENOrdering Facility: [facility] Address: [address] [place] [address] Performed By: #### 5 7021-8 ####[facility] WEST[facility]CA [id number] [place] [address] [place] Monocytes/100 WBC (Bld) 8.1 % Normal [facility] Comment on above: Order Comment: Speci men Type: BLOOD SPECIMENOrdering Facility: [facility] Address: [address] [place] [address] Performed By: #### 5 7021-8 ####[facility]ENTER[facility]IA [id number] [place] [address] [place] Neutrophils (Bld) [#/Vol] 5.93 10*3/uL Normal 1.45-7.50 [facility] Comment on above: Order Comment: Speci men Type: BLOOD SPECIMENOrdering Facility: [facility] Address: [address] [place] [address] Performed By: #### 5 7021-8 ####[facility] WESTNCA [id number] [place] [address] [place] Neutrophils/100 WBC (Bld) 72.9 % Normal [facility] Comment on above: Order Comment: Speci men Type: BLOOD SPECIMENOrdering Facility: [facility] Address: [address] [place] [address] Performed By: #### 5 7021-8 ####[facility] [id number] [place] [address] [place] Nucleated RBC (Bld) [#/Vol] 10*3/uL Normal <0.01 [facility] Comment on above: Order Comment: Speci men Type: BLOOD SPECIMENOrdering Facility: [facility] Address: [address] [place] [address] Performed By: #### 5 7021-8 ####[facility] [id number] [place] [address] [place] Nucleated RBC/100 WBC (Bld) [Ratio] 0.0 /[address] [facility] Comment on above: Order Comment: Speci men Type: BLOOD SPECIMENOrdering Facility: [facility] Address: [address] [place] [address] Performed By: #### 5 7021-8 ####[facility] [id number] [place] [address] [place] Platelet mean volume (Bld) [Entitic vol] 10.0 fL Normal 9.0-12.7 [facility] Comment on above: Order Comment: Speci men Type: BLOOD SPECIMENOrdering Facility: [facility] Address: [address] [place] [address] Performed By: #### 5 7021-8 ####[facility] WE[facility]CLI [id number] [place] [address] [place] Platelets (Bld) [#/Vol] 266 10*3/uL Normal 150-400 [facility] Comment on above: Order Comment: Speci men Type: BLOOD SPECIMENOrdering Facility: [facility] Address: [address] [place] [address] Performed By: #### 5 7021-8 ####[facility] WEST[facility]CL[facility] [id number] [place] [address] [place] RBC (Bld) [#/Vol] 4.56 10*6/uL Normal 3.90-5.20 [facility] Comment on above: Order Comment: Speci men Type: BLOOD SPECIMENOrdering Facility: [facility] Address: [address] [place] [address] Performed By: #### 5 7021-8 ####[facility] WESTNCA [id number] [place] [address] [place] WBC (Bld) [#/Vol] 8.14 10*3/uL Normal 3.70-11.00 [facility] Comment on above: Order Comment: Speci men Type: BLOOD SPECIMENOrdering Facility: [facility] Address: [address] [place] [address] Performed By: #### 5 7021-8 ####[facility] WEST[facility]CL[facility] [id number] [place] [address] [place] HBV surface Ag Ql (S)on 07-30 Interpretation and review of laboratory results Normal [facility] HBV surface Ag Ser Qlon 07-30 HBV surface Ag Ql (S) Negative Normal Negative [facility] Comment on above: Order Comment: Speci men Type: BLOOD SPECIMENOrdering Facility: [facility] Address: [address] [place] [address] Performed By: #### 5 195-3, 34952-8, 06186-2 ####[facility] LABCLIA [id number] [place] [address] [place] HCG QUANTITATIVEon 5 HCG.beta subunit Qn 8329 m[IU]/mL High NINF [facility] Comment on above: QUANTITATIVE HCG NOR MAL RANGES Weeks of Gestation (Weeks Since LMP) 3 Weeks (5.8-71.2 mIU/mL) 4 Weeks (9.5-750 mIU/mL) 5 Weeks (217-7138 mIU/mL) 6 Weeks (158-55639 mIU/mL) 7 Weeks (3697-860424 mIU/mL) 8 Weeks (34682-976410 mIU/mL) 9 Weeks (46908-762417 mIU/mL) 10 Weeks (99826-931531 mIU/mL) 12 Weeks (55900-737386 mIU/mL) Referenced to 4th IS of [facility] HCG.beta subunit Qnon 2024 Interpretation and review of laboratory results Abnormal [facility] HCV Ab Ser Qlon 08-11-2024 HCV Ab Ql (S) Negative Normal Negative [facility] Comment on above: Order Comment: Speci men Type: BLOOD SPECIMENOrdering Facility: [facility] Address: [address] [place] [address] Result Comment: The result suggests no evidence of active infection with Hepatitis C virus. Should recent infection be suspected, repeat testing may be considered 4-6 weeks after this draw. Performed By: #### 1 6128-1 ####[facility] LABCLIA [id number] [place] [address] [place] HEPATITIS B SURFACE ANTIGENo n 08-11-2024 HBV surface Ag Ql (S) Negative Negative [facility] HIV 1+2 Ab IA Qlon 5 HIV 1 and 2 Ab IA.rapid Nom (S/P/Bld) [facility] Comment on above: Test not indicated. HIV 1+2 Ab+HIV1 p24 Ag IA Ql Non-Reactive Nonreactive [facility] HIV immunoassay testing algorithm interpretation (S/P/Bld) [Interp] [facility] Comment on above: No evidence of HIV-1 or HIV-2 infection. Should recent infection be suspected, repeat testing may be considered 2-3 weeks after this draw. [place] Rev. Code 3701.243(E): This information has been [...] release of HIV test results or diagnoses. [facility] HIV 1 and 2 Ab IA.rapid Nom (S/P/Bld) Normal [facility] Comment on above: Order Comment: Speci men Type: BLOOD SPECIMENOrdering Facility: [facility] Address: [address] [place] [address] Result Comment: Test not indicated. Performed By: #### 5 195-3, 59402-1, 20933-2 ####[facility] [id number] [place] [address] [place] HIV 1+2 Ab+HIV1 p24 Ag IA Ql Non-Reactive Normal Nonreactive [facility] Comment on above: Order Comment: Speci men Type: BLOOD SPECIMENOrdering Facility: [facility] Address: [address] [place] [address] Performed By: #### 5 195-3, 72243-5, 30243-8 ####[facility] [id number] [place] [address] [place] HIV immunoassay testing algorithm interpretation (S/P/Bld) [Interp] Normal [facility] Comment on above: Order Comment: Speci men Type: BLOOD SPECIMENOrdering Facility: [facility] Address: [address] [place] [address] Result Comment: No e vidence of HIV-1 or HIV-2 infection. Should recent infection be suspected, repeat testing may be considered 2-3 weeks after this draw. [place] Rev. Code 3701.243(E): This information has been [...] or diagnoses. Performed By: #### 5 195-3, 14173-0, 23556-2 ####[facility] LABIA [id number] [place] [address] [place] HbA1c (Bld)on 08-11-2024 Average glucose Estimated from glycated hemoglobin (Bld) [Mass/Vol] 97 mg/dL [facility] Comment on above: eAG: (Estimated aver age glucose) is a calculated value from HgbA1c and is exhibit display representative of the average blood glucose level in the last 2-3 month period. HbA1c (Bld) [Mass fraction] 5 % 4.3 - 5.6 % [facility] Comment on above: [place] Diabetes As sociation guidelines indicate that patients with HgbA1c in the range 5.7-6.4% are at increased risk for development of diabetes, and intervention by lifestyle modification may be beneficial. HgbA1c greater or equal to 6.5% is considered diagnostic of diabetes. [facility] Average glucose Estimated from glycated hemoglobin (Bld) [Mass/Vol] 97 mg/dL Normal [facility] Comment on above: Order Comment: Speci men Type: BLOOD SPECIMENOrdering Facility: [facility] Address: [address] [place] [address] Result Comment: eAG: (Estimated average glucose) is a calculated value from HgbA1c and is exhibit display representative of the average blood glucose level in the last 2-3 month period. Performed By: #### 5 5454-3 ####[facility] LABIA [id number] [address] [place] HbA1c (Bld) [Mass fraction] 5.0 % Normal 4.3-5.6 [facility] Comment on above: Order Comment: Speci men Type: BLOOD SPECIMENOrdering Facility: [facility] Address: [address] [place] [address] Result Comment: [place] Diabetes Association guidelines indicate that patients with HgbA1c in the range 5.7-6.4% are at increased risk for development of diabetes, and intervention by lifestyle modification may be beneficial. HgbA1c greater or equal to 6.5% is considered diagnostic of diabetes. Performed By: #### 5 5454-3 ####[facility] LABIA [id number] [place] [address] [place] POC DICE SPOTTER ULTRASOUNDon 08-12-19 25 Indication Viability; confirm cardiac [...] Read By: Christianne Carranza CNM MATERNAL MEDICINE [facility] Radiology Study observation (narrative) [facility] RUBELLA IGG ANTIBODYon 08-11 RUBELLA IGG AB, QUAL Positive Normal Positive [facility] Comment on above: Order Comment: Speci men Type: BLOOD SPECIMENOrdering Facility: [facility] Address: [address] [place] [address] Result Comment: The result suggests recent or past exposure to Rubella virus or history of Rubella vaccination. Positive result may also be seen due to presence of passively-transferred antibodies. Please correlate with patient's history. Performed By: #### R UBIGG ####[facility] LABIA [id number] [address] [place] Reagin and Treponema pallidu m IgG and IgM [Interp]on 08-11-2024 T. pallidum IgG+IgM IA Ql (S) Non-Reactive Nonreactive [facility] T. pallidum IgG+IgM IA Ql (S) Non-Reactive Normal Nonreactive [facility] Comment on above: Order Comment: Speci men Type: BLOOD SPECIMENOrdering Facility: [facility] Address: [address] [place] [address] Performed By: #### 5 195-3, 67646-2, 60097-9 ####[facility] LABCLIA [id number] [place] [address] [place] Reagin+T pallidum IgG+IgM Se rPl-Impon 08-11-2024 Reagin and Treponema pallidum IgG and IgM [Interp] Cannot exclude recent Treponemal infection if specimen collected within 7-10 days after appearance of suspect lesions or 2-3 weeks after an exposure. Clinical correlation is required. Normal [facility] Comment on above: Order Comment: Speci men Type: BLOOD SPECIMENOrdering Facility: [facility] Address: [address] [place] [address] Performed By: #### 5 195-3, 59358-8, 11623-1 ####[facility] LABIA [id number] [place] [address] [place] SYPHILIS TREPONEMAL W/REFLEX on 08-11-2024 Reagin and Treponema pallidum IgG and IgM [Interp] Cannot exclude recent Treponemal infection if specimen collected within 7-10 days after appearance of suspect lesions or 2-3 weeks after an exposure. Clinical correlation is required. [facility] TRICHOMONAS VAGINALIS NAATon 08-11-2024 T. vaginalis DNA SANTY+probe Ql (Unsp spec) Not detected Normal Not detected [facility] Comment on above: Order Comment: Speci men Type: SWABOrdering Facility: [facility] Address: [address] [place] [address] Performed By: #### 3 6902-5, TRVAMP ####[facility] LABIA [id number] [place] [address] [place] TYPE + SCREEN PRENATALon ABO group Nom (Bld) A [facility] Blood group antibody screen Ql Negative [facility] Rh Nom (Bld) Negative [facility] Type and Screen Expiration 08/14/2024 23:59 [facility] ABO A Normal [facility] Comment on above: Order Comment: Speci men Type: BLOOD SPECIMENOrdering Facility: [facility] Address: [address] [place] [address] Performed By: #### T SPN ####[facility] BLOOD BANKCLIA [id number] [address] [place] Rh Nom (Bld) Negative Normal [facility] Comment on above: Order Comment: Speci men Type: BLOOD SPECIMENOrdering Facility: [facility] Address: [address] [place] [address] Performed By: #### T SPN ####[facility] BLOOD BANKCLIA [id number] [address] TYPE AND SCREEN EXPIRATION 08/14/2024 23:[address] [facility] Comment on above: Order Comment: Speci men Type: BLOOD SPECIMENOrdering Facility: [facility] Address: [address] [place] [address] Performed By: #### T SPN ####[facility] BLOOD BANKCLIA [id number] [address] [place] CNPLavern 08-09-2024 CNPN Telephone (OBGYWM) ALEJANDRA KIRAN ([id number]) 2 F Date Time Provider Department 08/09/24 [...] Encounter Status:Closed by PERLA MUNOZ on 08/24/24 [facility] Jody 06-29-2024 CNOV Office Visit (OBGYWM ) ALEJANDRA KIRAN ([id number]) 2 F Date Time Provider Department 06/29/24 9:10 AM JOSEPH CEBALLOS During your visit today, we recorded the following information about you: Blood pressure Weight Height Last Period 100/64 80.7 kg 1.727 m 06/01/24 Joseph Ceballos MD 07/01/2024 10:13 AM Signed Nitroglycerin Neutralizer offered: Patient accepts, visit chaperoned by Erica [...] L0 SAB0 IAB0 Ectopic0 Multiple0 Live Births0 Silver Plater History LMP: 06/01/2024, Having periods Age at Menarche: 13 Age at First : Age at Menopause: Silver Plater History Comments: Sexual Activity: Yes; Male Contraception: [...] discussed with the Patient or Patient's Authorized Rubble Placer. As applicable, any other physician, advance practice provider, medical student, or other health professional student that will be observing or involved in the sensitive examination for educational or training purposes was discussed with the Patient or Authorized Rubble Placer. The Patient or Authorized Rubble Placer has agreed to proceed with the sensitive [...] external genitalia normal, normal Bartholin's glands, urethra, [place]'s glands, no vulvar lesions, no cervical lesions, [...] - Cough (more content not included)... Normal [facility] UA DIP,URINE HCG (POC)on Beta HCG ( test) Ql (U) Negative Negative [facility] Comment on above: Location:[facility], [address] , [place], [address] Fur Stylist (POCT) Internal QC OK [facility] Location:[facility], [address] , [place], [address] [facility] POINT OF CARE [facility] CNOVon 05-11-2024 CNOV Office Visit (OBGYWM ) ALEJANDRA KIRAN ([id number]) 2 F Date Time Provider Department 05/11/24 10:30 AM JOSEPH CEBALLOS During your visit today, we recorded the following information about you: Blood pressure Weight 106/74 76.2 kg Joseph Ceballos MD 05/11/2024 10:51 AM Signed Nitroglycerin Neutralizer offered: Patient accepts, visit chaperoned by Erica [...] Joseph Ceballos MD Referring Provider: DELL ALONSO [[id number]] Allergies As of Date: 05/11/2024 Noted Allergy Reaction POTATO 06/24/2016 2 - Rash 4 - Hives SEASONAL ALLERGIES 02/18/2018 3 - Cough Comments: Seasonal allergies Date Reviewed: 05/11/2024 Reviewed by: Erica Beverly MA - Fully Assessed Reason for Visit: IUD Removal [1949] Primary Visit Diagnosis:Encounter for IUD removal [Z30.432] Order(s):REMOVE INTRAUTERINE DEVICE [2644274] Order #: [id number] UA DIP,URINE HCG (POC) [8271178] Order #: [id number]. #:[id number] Prescriptions as of 05/11/2024 - cetirizine (ZYRTEC) [...] for Encounter Date Provider Department Center 05/11/2024 [id number] CEBALLOS [facility] Encounter Status:Closed by JOSEPH CEBALLOS on 05/11/[address] [facility] UA DIP,URINE HCG (POC)on Beta HCG ( test) Ql (U) Negative Negative [facility] Comment on above: Location:[facility], [facility] [address], [place], [address] Fur Stylist (POCT) Internal [facility] Location:[facility], [address], [place], [address] [facility] POINT OF CARE [facility] 01-18-2024 MARLEYN Telephone (OBTREVORWM) ALEJANDRA KIRAN ([id number]) 2 F Date Time Provider Department 01/18/24 JOSEPH CEBALLOS During your visit today, we [...] for IUD removal [Z30.432] Order(s):REMOVE INTRAUTERINE DEVICE [[id number]] Order #: [id number] Prescriptions as of 01/18/2024 - cariprazine (VRAYLAR) [...] Encounter Status:Closed by HELLEN CAMPOVERDE on 01/18/24 [facility] CNOVon 11-25-2023 CNOV Office Visit (OBGYWM ) MAGNOALEJANDRA Christensen ([id number]) 2 F Date Time Provider Department 11/25/23 8:00 AM JOSEPH CEBALLOS OBRAYSHAWN During your visit today, we recorded the following information about you: Blood pressure Weight 100/60 75.3 kg Joseph Ceballos MD 11/25/2023 9:37 AM Signed Alejandra Christensen Magno is a 23 year old female who presents for problem visit wishing to discuss fertility related to her progestin IUD, Liletta and parental hx of IVF. Reports irregular menses related to anorexia [id number] now resolved and IUD place 2020. Menarche ~ 13 yo and regular until weight loss to 106. Now 160, 5'8. Monthly/cyclic discharge on underwear.. HPI: as above and planning in ~ 12 mo, always feels cold OB History T0 L0 SAB0 IAB0 Ectopic0 Multiple0 Live Births0 Silver Plater History LMP: 01/15/2023 (Exact Date), IUD Age at Menarche: Age at First : Age at Menopause: Silver Plater History Comments: Sexual Activity: Yes; Male Contraception: [...] external genitalia normal, normal Bartholin's glands, urethra, [place]'s glands, no vulvar lesions, no cervical lesions, good vaginal support, physiologic discharge present, normal appearing perineal body and perianal region BIMANUAL: uterus normal size, shape and consistency, no adnexal masses, and non-tender NEURO: alert and oriented x3,exam grossly non-focal EXTREMITIES: normal ASSESSMENT AND PLAN: Unremarkable obstetrics gyn physician exam noting cold intolerance and irregular menses [...] Diagnosis:Intolerance to cold [R68.89] Order(s):THYROID STIMULATING HORMONE [SQTS] Order #: [id number] FUTURE Prescriptions as of 11/25/2023 - cariprazine (VRAYL (more content not included)... Normal [facility] TSH SerPl-aCncon 11-25-2023 TSH Qn 0.989 m[IU]/L Normal 0.270-4.200 [facility] Comment on above: Order Comment: Speci men Type: BLOOD SPECIMENOrdering Facility: [facility] Address: [address] [place] [address] Result Comment: If t he patient is , TSH reference range varies by gestational period: First Trimester (weeks 9-12): 0.180-2.990 mIU/L Second Trimester: 0.110-3.980 mIU/L Third Trimester: 0.480-4.710 mIU/L Xander Walker et al. A Practical Approach for the Verifications and Determination of Site- and Trimester-Specific Reference Intervals for Thyroid Function tests in . Thyroid, 2019:29:3:412-420. Milind E, et al. 2017 Guidelines of the [place] Thyroid Association for the Diagnosis and Management of Thyroid Disease during and the . Thyroid, 2017:27:3:315-389. Performed By: #### 3 016-3 ####[facility] LABCLIA [id number] [facility] [id number], [place] [address] [place] Basic Metabolic Panelon 01-0 Anion gap [Moles/Vol] 8 Normal [facility] Comment on above: Performed By: #### B MP3, HGHCT, TROPI ####[address] [place] [address] Calcium [Mass/Vol] 9.3 mg/dL Normal 8.4-10.4 [facility] Comment on above: Performed By: #### B MP3, HGHCT, TROPI ####[address] [place] [address] Chloride [Moles/Vol] 99 mmol/L Normal 98-107 [facility] Comment on above: Performed By: #### B MP3, HGHCT, TROPI ####[address] [place] [address] CO2 [Moles/Vol] 28 mmol/L Normal 22-30 [facility] Comment on above: Performed By: #### B MP3, HGHCT, TROPI ####[address] [place] [address] Creatinine [Mass/Vol] 0.69 mg/dL Normal 0.52-1.25 [facility] Comment on above: Performed By: #### B MP3, HGHCT, TROPI ####[address] [place] [address] GFR/1.73 sq M predicted among blacks MDRD (S/P/Bld) [Vol rate/Area] mL/min/{1.73_m2} Normal >60 [facility] Comment on above: Performed By: #### B MP3, HGHCT, TROPI ####[address] [place] [address] GFR/1.73 sq M predicted among non-blacks MDRD (S/P/Bld) [Vol rate/Area] mL/min/{1.73_m2} Normal >60 [facility] Comment on above: Result Comment: KDIG O [...] By: #### B MP3, HGHCT, TROPI ####[address] [address] Glucose [Mass/Vol] 104 mg/dL High 70-100 [facility] Comment on above: Performed By: #### B MP3, HGHCT, TROPI ####[address] [address] Potassium [Moles/Vol] 3.5 mmol/L Normal 3.5-5.1 [facility] Comment on above: Performed By: #### B MP3, HGHCT, TROPI ####[id number] [place] [address] Sodium [Moles/Vol] 135 mmol/L Normal 135-145 [facility] Comment on above: Performed By: #### B MP3, HGHCT, TROPI ####[address] [address] Urea nitrogen [Mass/Vol] 11 mg/dL Normal 7-20 [facility] Comment on above: Performed By: #### B MP3, HGHCT, TROPI ####[facility] [place] [address] Anion gap [Moles/Vol] 8 mmol/L [place], [place] Calcium [Mass/Vol] 9.3 mg/dL 8.4 - 10.4 mg/dL [place], [place] Chloride [Moles/Vol] 99 mmol/L 98 - 107 mmol/L [place] CO2 [Moles/Vol] 28 mmol/L 22 - 30 mmol/L [place] Creatinine [Mass/Vol] 0.69 mg/dL 0.52 - 1.25 mg/dL [place] EGFR IF NonAfrican Dutch >90.0 >60 mL/min [place], [place] Comment on above: KDIGO guidelines pro [...] MDRD (S/P/Bld) [Vol rate/Area] mL/min/{1.73_m2} >60 mL/min [place], [place] Glucose [Mass/Vol] 104 mg/dL High 70 - 100 mg/dL [place], [place] Potassium [Moles/Vol] 3.5 mmol/L 3.5 - 5.1 mmol/L [place] Sodium [Moles/Vol] 135 mmol/L 135 - 145 mmol/L [place], [place] Urea nitrogen [Mass/Vol] 11 mg/dL 7 - 20 mg/dL [place] Test Performed by [facility] [place] [facility], [address] [place] [address] [place], [place] COVID-19on 06-06-2020 SARS-CoV-2 Not Detected. Not Detected [place], [place] Comment on above: Not Detected. Method: Antigen detection by lateral flow. Results should not be the sole factor in determining infection status. Test Performed by [facility] [place] [facility], [address] [place] [address] EKG 12 Leadon 06-06-2020 Bhupinder, [facility] Incoming Cardiology Results From [facility] - 06/06/2020 6:14 PM EST [facility] [place] [facility] Test Date: 2020-06-05 Pat Name: Alejandra Cedeno Department: 08 Room: [facility] Gender: F Tig Welder: XAVIER : 2000 Requested By: CAROLINA PAULSON Order Number: [id number] Reading MD: Peewee Peterson Measurements Intervals [place] Rate: 57 P: 46 FL: 119 QRS: 57 QRSD: 92 T: 52 QT: 433 QTc: 422 Interpretive Statements Sinus bradycardia Compared to ECG 06/04/2020 22:31:38 Sinus rhythm no longer present Electronically Signed On 06-06-2020 18:13:50 EST by [facility] [place] [facility] Test Date: 2020-06-05 Pat Name: Alejandra Cedeno Department: 08 Room: 2629 Gender: F Tig Welder: XAVIER : 2000 Requested By: CAROLINA PAULSON Order Number: [id number] Reading MD: Peewee Peterson Measurements Intervals [place] Rate: 57 P: 46 FL: 119 QRS: 57 QRSD: 92 T: 52 QT: 433 QTc: 422 Interpretive Statements Sinus bradycardia Compared to ECG 06/04/2020 22:31:38 Sinus rhythm no longer present Electronically Signed On 06-06-2020 18:13:50 EST by [place], [place] Glucose,Bedsideon 06-06-2020 Glucose [Mass/Vol] 94 mg/dL Normal 70-100 [facility] Comment on above: Result Comment: Test performed by glucose meter. Results may be 10%-15% lower than serum/plasma values. (CLIA ID [id number]) Performed By: #### B GLU #### [address] [address] Hemoglobin AND Hematocriton 06-06-2020 Hematocrit (Bld) [Volume fraction] 34.6 % Low 35.0-47.0 [facility] [place] [facility] Comment on above: Performed By: #### B MP3, HGHCT, TROPI ####[address] [address] Hemoglobin (Bld) [Mass/Vol] 11.5 g/dL Low 11.7-16.0 [facility] Comment on above: Performed By: #### B MP3, HGHCT, TROPI ####[address] [address] Hemoglobin and Hematocrit, B loodon 06-06-2020 Hematocrit (Bld) [Volume fraction] 34.6 % Low 35 - 47 % [place], [place] Hemoglobin (Bld) [Mass/Vol] 11.5 g/dL Low 11.7 - 16 g/dL [place] Test Performed by [facility], [address] [place] [address] [place], [place] Lipid Panelon 06-06-2020 Cholesterol in HDL [Mass/Vol] 43 mg/dL Normal 40-60 [place] Comment on above: Performed By: #### L IPD2 #### [facility] [place] [address] [address] Cholesterol.total/Ch olesterol in HDL [Mass ratio] 4 Normal [facility] Comment on above: Result Comment: Ref Range: < 3 Low Risk for CHD 3-6 Mod Risk for CHD > 6 High Risk for CHD Performed By: #### L IPD2 #### [facility] [place] [facility] [address] [place] [address] Protein [Mass/Vol] 105 mg/dL Abnormal <100 [facility] [place] [facility] Comment on above: Performed By: #### L IPD2 #### [facility] simfy [address] [place] [address] Cholesterol [Mass/Vol] 164 mg/dL Normal < 200 [place], [place] Comment on above: Performed By: #### L IPD2 #### [facility] [address] [place] [address] Triglyceride [Mass/Vol] 80 mg/dL Normal <150 [place], [place] Comment on above: Performed By: #### L IPD2 #### [facility] [address] [place] [address] Lipid panel - fastingon Cholesterol in LDL [Mass/Vol] 105 mg/dL Abnormal <100 [place] Cholesterol.total/Ch olesterol in HDL [Mass ratio] 4 {ratio} [place] Comment on above: Ref Range: < 3 Low Risk for CHD 3-6 Mod Risk for CHD > 6 High Risk for CHD Test Performed by [facility] [place] [facility], [address] [place] [address] [place], [place] Otheron 06-06-2020 Interpretation and review of laboratory results Abnormal [place], [place] POCT troponinon 06-06-2020 Troponin I.cardiac [Mass/Vol] 0.00 ng/mL 0 - 0.08 ng/mL [place] Comment on above: . Test Performed by [facility], [address] [place] [address] [place], [place] [id number] 06-06-2020 SARS-CoV-2 SARS-CoV-2 --> Status: F Not Detected. Method: Antigen detection by lateral flow. Results should not be the sole factor in determining infection status. Method: Antigen detection by lateral flow. Results should not be the sole factor in determining infection status. Normal [facility] Comment on above: Performed By: #### C OVID ####[facility] [place] [address] [place] [address] Troponin, ISTATon 06-06-2020 Troponin I.cardiac [Mass/Vol] 0.00 ng/mL Normal 0.00-0.08 [facility] Comment on above: Result Comment: . Performed By: #### B MP3, HGHCT, TROPI ####[facility] [place] [address] [place] [address] POCT Glucoseon 06-05-2020 Glucose [Mass/Vol] 94 mg/dL 70 - 100 mg/dL [place], [place] Comment on above: Test performed by gl ucose meter. Results may be 10%-15% lower than serum/plasma values. (CLIA ID [id number]) [facility], [address] [place] [address] [place], [place] [id number] 06-05-2020 SARS-CoV-2 SARS-CoV-2 --> Status: F Not Detected. Expected Result: Not Detected _ Real-time, RT-PCR performed on the mon[employer]ki System by the [facility]. Negative results do not preclude SARS-CoV-2 infection and should not be used as the sole basis for treatment or other patient management decisions. This assay was developed by [employer] and distributed under an Emergency Use Authorization (EUA) granted by the FDA for the qualitative detection of SARS-CoV-2 nucleic acid. Expected Result: Not Detected _ Real-time, RT-PCR performed on the mon[employer]ki System by the [facility]. Negative results do not preclude SARS-CoV-2 infection and should not be used as the sole basis for treatment or other patient management decisions. This assay was developed by [employer] and distributed under an Emergency Use Authorization (EUA) granted by the FDA for the qualitative detection of SARS-CoV-2 nucleic acid. Normal [facility] Comment on above: Performed By: #### C OVID ####[facility] [address] [place] [address] hCG Qual Pregon 06-05-2020 hCG Qual Preg Negative Normal [facility] Comment on above: Result Comment: Refe rence Range: NEGATIVE Effective 08/12/2019, the reference interval for the qualitative test has been updated. This test detects hCG at concentrations of 10 mIU/L or greater in serum. Performed By: #### A CET4, SAL33, ETOH4, QWAL, HEMDF, CMP3 #### [facility] [address] [place], [place] ACETAMINOPHEN LEVELon 2020 Acetaminophen [Mass/Vol] <10.0 10 - 30 ug/mL [facility], [place] Acetaminophenon 06-04-2020 Acetaminophen [Mass/Vol] < 10.0 Normal 10.0-30.0 [facility] Comment on above: Performed By: #### A CET4, SAL33, ETOH4, QWAL, HEMDF, CMP3 #### [facility] [address] [place], [place] Comp Metabolic Panelon 06-04 ALP [Catalytic activity/Vol] 87 U/L Normal 38-126 [facility] Comment on above: Performed By: #### A CET4, SAL33, ETOH4, QWAL, HEMDF, CMP3 #### [address] [place], [place] ALT [Catalytic activity/Vol] 11 U/L Normal 0-34 [facility] Comment on above: Result Comment: The ALT test is performed by an updated assay method. Please note that the reference intervals have been changed and are now sex specific. Performed By: #### A CET4, SAL33, ETOH4, QWAL, HEMDF, CMP3 #### [address] [place], [place] AST [Catalytic activity/Vol] 30 U/L Normal 15-46 [facility] Comment on above: Performed By: #### A CET4, SAL33, ETOH4, QWAL, HEMDF, CMP3 #### [address] [place], [place] Bilirubin [Mass/Vol] 0.4 mg/dL Normal 0.2-1.[address] [facility] Comment on above: Performed By: #### A CET4, SAL33, ETOH4, QWAL, HEMDF, CMP3 #### [address] [place], [place] Calcium [Mass/Vol] 10.0 mg/dL Normal 8.4-10.4 [facility] Comment on above: Performed By: #### A CET4, SAL33, ETOH4, QWAL, HEMDF, CMP3 #### [address] [place], [place] Glucose [Mass/Vol] 99 mg/dL Normal 70-100 [facility] Comment on above: Performed By: #### A CET4, SAL33, ETOH4, QWAL, HEMDF, CMP3 #### [address] [place], [place] Protein [Mass/Vol] 8.2 g/dL Normal 6.3-8.2 [facility] Comment on above: Performed By: #### A CET4, SAL33, ETOH4, QWAL, HEMDF, CMP3 #### [address] [place], [place] Urea nitrogen [Mass/Vol] 6 mg/dL Low 7-20 [facility] Comment on above: Performed By: #### A CET4, SAL33, ETOH4, QWAL, HEMDF, CMP3 #### [address] [place], [place] Anion gap [Moles/Vol] 11 Normal [facility] Comment on above: Performed By: #### A CET4, SAL33, ETOH4, QWAL, HEMDF, CMP3 #### [address] [place], [place] CO2 [Moles/Vol] 24 mmol/L Normal 22-30 [facility] Comment on above: Performed By: #### A CET4, SAL33, ETOH4, QWAL, HEMDF, CMP3 #### [address] [place], [place] Creatinine [Mass/Vol] 0.62 mg/dL Normal 0.52-1.25 [facility] Comment on above: Performed By: #### A CET4, SAL33, ETOH4, QWAL, HEMDF, CMP3 #### [address] [place], [place] GFR/1.73 sq M predicted among blacks MDRD (S/P/Bld) [Vol rate/Area] mL/min/{1.73_m2} Normal >60 [facility] Comment on above: Performed By: #### A CET4, SAL33, ETOH4, QWAL, HEMDF, CMP3 #### [address] [address] GFR/1.73 sq M predicted among non-blacks MDRD (S/P/Bld) [Vol rate/Area] mL/min/{1.73_m2} Normal >60 [facility] Comment on above: Result Comment: KDIG O [...] CET4, SAL33, ETOH4, QWAL, HEMDF, CMP3 #### [address] [address] Potassium [Moles/Vol] 3.6 mmol/L Normal 3.5-5.1 [facility] Comment on above: Performed By: #### A CET4, SAL33, ETOH4, QWAL, HEMDF, CMP3 #### [address] [address] Sodium [Moles/Vol] 138 mmol/L Normal 135-145 [facility] Comment on above: Performed By: #### A CET4, SAL33, ETOH4, QWAL, HEMDF, CMP3 #### [address] [address] Albumin [Mass/Vol] 4.8 g/dL Normal 3.5-5.0 [facility] Comment on above: Performed By: #### A CET4, SAL33, ETOH4, QWAL, HEMDF, CMP3 #### [facility] [address] [place] [address] Chloride [Moles/Vol] 103 mmol/L Normal 98-107 [facility] Comment on above: Performed By: #### A CET4, SAL33, ETOH4, QWAL, HEMDF, CMP3 #### [facility] [address] [place] [address] Comprehensive Metabolic Pane roverto 06-04-2020 Albumin [Mass/Vol] 4.8 g/dL 3.5 - 5 g/dL [place], [place] ALP [Catalytic activity/Vol] 87 U/L 38 - 126 U/L [place], [place] ALT [Catalytic activity/Vol] 11 U/L 0 - 34 U/L [place] Comment on above: The ALT test is perf ormed by an updated assay method. Please note that the reference intervals have been changed and are now sex specific. Anion gap [Moles/Vol] 11 mmol/L [place], [place] AST [Catalytic activity/Vol] 30 U/L 15 - 46 U/L [place] Bilirubin Ql (U) 0.4 mg/dL 0.2 - 1.3 mg/dL [place], [place] Calcium [Mass/Vol] 10.0 mg/dL 8.4 - 10.4 mg/dL [place] Chloride [Moles/Vol] 103 mmol/L 98 - 107 mmol/L [place] CO2 [Moles/Vol] 24 mmol/L 22 - 30 mmol/L [place] Creatinine [Mass/Vol] 0.62 mg/dL 0.52 - 1.25 mg/dL [place] EGFR IF NonAfrican Dutch >90.0 >60 mL/min [place], [place] Comment on above: KDIGO guidelines pro [...] MDRD (S/P/Bld) [Vol rate/Area] mL/min/{1.73_m2} >60 mL/min [place], [place] Glucose [Mass/Vol] 99 mg/dL 70 - 100 mg/dL [place], [place] Interpretation and review of laboratory results Abnormal [place], [place] Potassium [Moles/Vol] 3.6 mmol/L 3.5 - 5.1 mmol/L [place] Protein [Mass/Vol] 8.2 g/dL 6.3 - 8.2 g/dL [place], [place] Sodium [Moles/Vol] 138 mmol/L 135 - 145 mmol/L [place], [place] Urea nitrogen [Mass/Vol] 6 mg/dL Low 7 - 20 mg/dL [place], [place] Drugs of Abuseon 06-04-2020 Cocaine, Ur Negative Normal [facility] Comment on above: Performed By: #### D RGA4 ####[id number] [place] Opiates, Ur Negative Normal [facility] Comment on above: Performed By: #### D RGA4 ####[address] [place] [address] Phencyclidine (PCP), Ur Negative Normal [facility] Comment on above: Result Comment: The expected [...] separate order. Performed By: #### D RGA4 ####[facility] [place] [address] [place] [address] Methadone, Ur Negative Normal [facility] Comment on above: Performed By: #### D RGA4 ####[facility] [address] [place] [address] Amphetamines, Ur Negative Normal [facility] Comment on above: Performed By: #### D RGA4 ####[facility] [address] [place] [address] Barbiturates, Ur Negative Normal [facility] Comment on above: Performed By: #### D RGA4 ####[facility] [address] [place] [address] Benzodiazepines, Ur Negative Normal [facility] Comment on above: Performed By: #### D RGA4 ####[facility] [address] [place] [address] Oxycodone/Oxymorphin e,Ur Negative Normal [facility] Comment on above: Performed By: #### D RGA4 ####[facility] [address] [place] [address] ED Provider Noteon ED Provider Note Emergency [...] is scared she will hurt herself further. AUGUSTINE (Location/Symptom, Timing/Onset, Context/Setting, Quality, Duration, Modifying Factors, [...] otherwise acutely negative except as in the AUGUSTINE. Past History History reviewed. No pertinent past [...] on phone: None Gets together: None Attends jain service: None Active member of club or [...] Rate Resp SpO2 Height Weight - Scale 01201606/04/20201606/04/20201606/04/20201606/04/20201606/04/20201606/04/20202306/04/202023 (!) 144/101 99.4 ?F (37.4 ?C) Temporal [...] eGFR >90.0 >60 mL/min EGFR IF NonAfrican Dutch >90.0 >60 mL/min Calcium 10.0 8.4 - [...] # 1.6 1.0 - 4.3 10*3/uL Absolute Emmet # 0.5 0.0 - 0.8 10*3/uL Absolute [...] inpatient psychiatric admission, patient was admitted to [place] in stable condition. Patient is medically clear for psychiatric admission. ED Medication Orders (From admission, onward) Start Ordered Status Ordering Provider 06/04/20 2245 06/04/20 223 Ayjiwwv-Cyxjpc-Nretv Pertussis (BOOSTRIX) injection 0.5 mL ONCE Last [...] [employer] SELINA Nieves 06/05/20 0007 [facility] ED Provider Note Emergency Department Encounter [facility] Patient: Alejandra Cedeno : [...] Rate and rhythm: sinus rhythm, 66 bpm [place]: within normal range Intervals: FL 122, QRS 88, QTc 430 Segments: no [...] [employer] Giles Rose MD 06/05/20 0343 [facility] Ethanolon 06-04-2020 Ethanol Lvl <0.010 0 - 0.01 g/dL [place], [place] Comment on above: NOTE: This result is for medical treatment only. Analysis performed using non-forensic procedures. Ethanol Serum/Plasmaon 06-04 Ethanol-Serum/Plasma < 0.010 Normal 0.000-0.010 [facility] Comment on above: Result Comment: NOTE : This result is for medical treatment only. Analysis performed using non-forensic procedures. Performed By: #### A CET4, SAL33, ETOH4, QWAL, HEMDF, CMP3 #### [address] [address] HCG Qualitative, Serumon hCG Qual Negative m[IU]/mL [place], [place] Comment on above: Reference Range: NEG ATIVE Effective 08/12/2019, the reference interval for the qualitative test has been updated. This test detects hCG at concentrations of 10 mIU/L or greater in serum. Test Performed by [facility], [address] [place] [address] [place] Hemogram (CBC) w/Auto Diffon 06-04-2020 Absolute Baso # 0.0 10*3/uL 0 - 0.2 10*3/uL [place], [place] Absolute Neut # 4.6 10*3/uL 1.8 - 7 10*3/uL [place], [place] Basophils/100 WBC (Bld) 0.7 % 0 - 2 % [place] Eosinophils (Bld) [#/Vol] 0.0 10*3/uL 0 - 0.5 10*3/uL [place] Eosinophils/100 WBC (Bld) 0.5 % Low 1 - 6 % [place] Erythrocyte distribution width (RBC) [Ratio] 18.1 % High 11.5 - 14.5 % [place] Granulocytes/100 WBC (Bld) 68.4 % 40 - 80 % [place] Hematocrit (Bld) [Volume fraction] 40.0 % 35 - 47 % [place] Hemoglobin (Bld) [Mass/Vol] 12.9 g/dL 11.7 - 16 g/dL [place] Interpretation and review of laboratory results Abnormal [place] Lymphocytes (Bld) [#/Vol] 1.6 10*3/uL 1 - 4.3 10*3/uL [place] Lymphocytes/100 WBC (Bld) 23.2 % 20 - 40 % [place] MCH (RBC) [Entitic mass] 25.9 pg Low 26 - 34 pg [place] MCHC (RBC) [Mass/Vol] 32.2 % 32 - 36 % [place] MCV (RBC) [Entitic vol] 80.4 fL 79 - 98 fL [place] Monocytes (Bld) [#/Vol] 0.5 10*3/uL 0 - 0.8 10*3/uL [place] Monocytes/100 WBC (Bld) 7.2 % 2 - 10 % [place] Platelet mean volume (Bld) [Entitic vol] 8.7 fL 7.4 - 10.4 fL [place], [place] Platelets (Bld) [#/Vol] 326 10*3/uL 140 - 440 10*3/uL [place] RBC (Bld) [#/Vol] 4.97 10*6/uL 3.8 - 5.2 10*6/uL [place] WBC (Bld) [#/Vol] 6.8 10*3/uL 3.6 - 10.7 10*3/uL [place] Test Performed by [facility] [place] [facility], [address] [place] [address] [place] Hemogram w/ Autodiffon 06-04 Abs Baso Cnt 0.0 10*3/uL Normal 0.0-0.2 [facility] Comment on above: Performed By: #### A CET4, SAL33, ETOH4, QWAL, HEMDF, CMP3 #### [facility] [place] [address] [address] Abs Neutrophile Cnt 4.6 10*3/uL Normal 1.8-7.0 [facility] Comment on above: Performed By: #### A CET4, SAL33, ETOH4, QWAL, HEMDF, CMP3 #### [address] Basophils/100 WBC (Bld) 0.7 % Normal 0.0-2.0 [facility] Comment on above: Performed By: #### A CET4, SAL33, ETOH4, QWAL, HEMDF, CMP3 #### [address] Eosinophils (Bld) [#/Vol] 0.0 10*3/uL Normal 0.0-0.5 [facility] Comment on above: Performed By: #### A CET4, SAL33, ETOH4, QWAL, HEMDF, CMP3 #### [address] Eosinophils/100 WBC (Bld) 0.5 % Low 1.0-6.0 [facility] Comment on above: Performed By: #### A CET4, SAL33, ETOH4, QWAL, HEMDF, CMP3 #### [address] Erythrocyte distribution width (RBC) [Ratio] 18.1 % High 11.5-14.5 [facility] Comment on above: Performed By: #### A CET4, SAL33, ETOH4, QWAL, HEMDF, CMP3 #### [address] Granulocytes/100 WBC (Bld) 68.4 % Normal 40.0-80.0 [facility] Comment on above: Performed By: #### A CET4, SAL33, ETOH4, QWAL, HEMDF, CMP3 #### [address] Hematocrit (Bld) [Volume fraction] 40.0 % Normal 35.0-47.0 [facility] Comment on above: Performed By: #### A CET4, SAL33, ETOH4, QWAL, HEMDF, CMP3 #### [address] Hemoglobin (Bld) [Mass/Vol] 12.9 g/dL Normal 11.7-16.0 [facility] Comment on above: Performed By: #### A CET4, SAL33, ETOH4, QWAL, HEMDF, CMP3 #### [facility] [address], [place] Lymphocytes (Bld) [#/Vol] 1.6 10*3/uL Normal 1.0-4.3 [facility] Comment on above: Performed By: #### A CET4, SAL33, ETOH4, QWAL, HEMDF, CMP3 #### [place] [place], [place] Lymphocytes/100 WBC (Bld) 23.2 % Normal 20.0-40.0 [facility] Comment on above: Performed By: #### A CET4, SAL33, ETOH4, QWAL, HEMDF, CMP3 #### [address] [place], [place] MCH (RBC) [Entitic mass] 25.9 pg Low 26.0-34.0 [facility] Comment on above: Performed By: #### A CET4, SAL33, ETOH4, QWAL, HEMDF, CMP3 #### [address] [place], [place] MCHC (RBC) [Mass/Vol] 32.2 % Normal 32.0-36.0 [facility] Comment on above: Performed By: #### A CET4, SAL33, ETOH4, QWAL, HEMDF, CMP3 #### [address] [address] [place] MCV (RBC) [Entitic vol] 80.4 fL Normal 79.0-98.0 [facility] Comment on above: Performed By: #### A CET4, SAL33, ETOH4, QWAL, HEMDF, CMP3 #### [address] [place], [place] Monocytes (Bld) [#/Vol] 0.5 10*3/uL Normal 0.0-0.8 [facility] Comment on above: Performed By: #### A CET4, SAL33, ETOH4, QWAL, HEMDF, CMP3 #### [address] [address] [place] Monocytes/100 WBC (Bld) 7.2 % Normal 2.0-10.0 [facility] Comment on above: Performed By: #### A CET4, SAL33, ETOH4, QWAL, HEMDF, CMP3 #### [address] [address] [place] Platelet mean volume (Bld) [Entitic vol] 8.7 fL Normal 7.4-10.4 [facility] Comment on above: Performed By: #### A CET4, SAL33, ETOH4, QWAL, HEMDF, CMP3 #### [address] [address] [place], [place] Platelets (Bld) [#/Vol] 326 10*3/uL Normal 140-440 [facility] Comment on above: Performed By: #### A CET4, SAL33, ETOH4, QWAL, HEMDF, CMP3 #### [address] [address] [place], [place] RBC (Bld) [#/Vol] 4.97 10*6/uL Normal 3.80-5.20 [facility] Comment on above: Performed By: #### A CET4, SAL33, ETOH4, QWAL, HEMDF, CMP3 #### [address] [address] [place], [place] WBC (Bld) [#/Vol] 6.8 10*3/uL Normal 3.6-10.7 [facility] Comment on above: Performed By: #### A CET4, SAL33, ETOH4, QWAL, HEMDF, CMP3 #### [address] Otheron 06-04-2020 Test Performed by [facility], [address] [place] [id number] [place] [address] [place], [place] Salicylateon 06-04-2020 Salicylate Lvl <1.0 0 - 20 mg/dL [facility] [place] [place] [facility], [facility] [place] [address] [facility] [place], [place] Salicylateson 06-04-2020 Salicylates < 1.0 Normal 0.0-20.0 [facility] Comment on above: Performed By: #### A CET4, SAL33, ETOH4, QWAL, HEMDF, CMP3 #### [facility] [address] [place] [address] Urine Drug Screenon 06-04-19 21 Amphetamines, urine Negative [facility] [place] Barbiturates, Ur Negative [facility] [place] Benzodiazepine Ur Qual Negative [facility] [place] Cocaine Metabolites, Ur Negative [facility] [place] Methadone, Urine Negative [facility] [place] Opiates, Urine Negative [facility] [place] Oxy[place]one Screen, Ur [facility] [place] P[place], Urine Negative [facility] [place] Comment on above: The expected [...] confirmation under separate order. Test Performed by [facility], [address] [place] [address] [facility] [place] GI FLUORO CHEST SNIFF TESTon 03-19-2020 GI [...] right hemidiaphragm. IMPRESSION: 1. Normal diaphragmatic excursion. [employer]: [employer] Transcribe Date/Time: Mar 19 2020 9:24A Dictated by : LISA KRAUS MD This examination was interpreted and the report reviewed and electronically signed by: LISA KRAUS MD on Mar 19 2020 9:27AM EST [id number] N [facility] Vital Signs Date Time Vital Sign Value Performing Clinician Malia martinez 08-11-2024 08:39-0400 Body height 172.7 cm Christianne Carranza BACK TENDER PULP D[employer]ER.CNM Work Phone: [facility] 08-11-2024 08:39-0400 Body mass index (BMI) [Ratio] 27.37 kg/m2 Christianne Carranza BACK TENDER [employer]ER.CNM Work Phone: [facility] 08-11-2024 08:39-0400 Body weight 81.65 kg Christianne Carranza BACK TENDER PULP D[employer]ER.CNM Work Phone: [facility] 08-11-2024 08:39-0400 Diastolic blood pressure 72 mm[Hg] Christianne Madrigalts BACK TENDER PULP D[employer]ER.CNM Work Phone: [facility] 08-11-2024 08:39-0400 Systolic blood pressure 110 mm[Hg] Christianne Carranza BACK TENDER [employer]ER.CNM Work Phone: [facility] 06-29-2024 09:06-0500 Body height 172.7 cm Joseph Ceballos MD Work Phone: [facility] 06-29-2024 09:06-0500 Body mass index (BMI) [Ratio] 27.06 kg/m2 Joseph Ceballos MD Work Phone: [facility] 06-29-2024 09:06-0500 Body weight 80.74 kg Joseph Ceballos MD Work Phone: [facility] 06-29-2024 09:06-0500 Diastolic blood pressure 64 mm[Hg] Joseph Ceballos MD Work Phone: [facility] 06-29-2024 09:06-0500 Systolic blood pressure 100 mm[Hg] Joseph Ceballos MD Work Phone: [facility] 05-11-2024 10:17-0500 Body mass index (BMI) [Ratio] 26.51 kg/m2 Joseph Ceballos MD Work Phone: [facility] 05-11-2024 10:17-0500 Body weight 76.2 kg Joseph Ceballos MD Work Phone: [facility] 05-11-2024 10:17-0500 Diastolic blood pressure 74 mm[Hg] Joseph Ceballos MD Work Phone: [facility] 05-11-2024 10:17-0500 Systolic blood pressure 106 mm[Hg] Joseph Ceballos MD Work Phone: [facility] 11-25-2023 08:05-0400 Body mass index (BMI) [Ratio] 26.19 kg/m2 Joseph Ceballos MD Work Phone: [facility] 11-25-2023 08:05-0400 Body weight 75.3 kg Joseph Ceballos MD Work Phone: [facility] 11-25-2023 08:05-0400 Diastolic blood pressure 60 mm[Hg] Joseph Ceballos MD Work Phone: [facility] 11-25-2023 08:05-0400 Systolic blood pressure 100 mm[Hg] Joseph Ceballos MD Work Phone: [facility] 02-26-2023 14:00-0400 Body height 170.2 cm Kiki Yates APRN.CNP Work Phone: [facility] 09-28-2023 14:00-0400 Body weight 73.94 kg 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 Phone: [facility] 02-26-2023 14:00-0400 Diastolic blood pressure 64 mm[Hg] 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 Phone: [facility] 02-26-2023 14:00-0400 Systolic blood pressure 112 mm[Hg] 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 Phone: [facility] 06-11-2020 05:45-0500 Body Temperature 97.7 [degF] [place], [place] 06-11-2020 05:45-0500 BP Diastolic 74 mm[Hg] [place], [place] 06-11-2020 05:45-0500 BP Systolic 117 mm[Hg] [place] 06-11-2020 05:45-0500 Pulse (Heart Rate) 67 /min [place], [place] 06-11-2020 05:45-0500 Pulse Oximetry 98 % [place] 06-11-2020 05:45-0500 Respiratory Rate 16 /min [facility] [place] 06-04-2020 20:24-0500 BMI (Body Mass Index) 21.79 kg/m2 [place] 06-04-2020 20:24-0500 Body weight 61.24 kg [place] 06-04-2020 20:24-0500 Height 167.6 cm [place] Encounters Encounter Date Encounter Type Care Provider Facility Start: 02-10-2025 End: 02-10-2025 ambulatory FREDDIE CHAHAL [facility] Start: 02-09-2025 End: 02-09-2025 ambulatory Sun[facility] Start: 02-07-2025 End: 02-07-2025 ambulatory NAVDEEP JEFFREY [facility] Start: 02-01-2025 End: 02-01-2025 ambulatory Sun[facility] Facility:[facility] Start: 01-24-2025 End: 01-24-2025 ambulatory [facility] Start: 01-24-2025 End: 01-24-2025 ambulatory Sundeep Sher Facility:[facility] Start: 01-06-2025 End: 01-06-2025 ambulatory Sundeep Sher [facility] Start: 12-29-2024 End: 12-29-2024 ambulatory Sundeep Sher Facility:[facility] Start: 12-26-2024 End: 12-26-2024 ambulatory Sundeep Sher [facility] Start: 12-26-2024 End: 12-26-2024 ambulatory uSndeep Sher Facility:[facility] Start: 12-20-2024 End: 12-20-2024 ambulatory FLORY DE LEON [facility] Start: 12-07-2024 End: 12-07-2024 ambulatory Sundeep Sher [facility] Start: 12-06-2024 End: 12-06-2024 Emergency department patient visit Sundeep Sher Facility:[facility] Start: 12-01-2024 End: 12-01-2024 ambulatory NAVDEEP JEFFREY [facility] Start: 11-17-2024 End: 11-17-2024 ambulatory FREDDIE CHAHAL [facility] Start: 11-09-2024 End: 11-09-2024 ambulatory Sundeep Sher [facility] Start: 11-04-2024 End: 11-04-2024 ambulatory Angela Vigil [facility] Start: 11-04-2024 End: 11-04-2024 ambulatory Angela Vigil Facility:[facility] Start: 10-19-2024 End: 10-19-2024 ambulatory Tiera Mcfarland Facility:[facility] Start: 10-13-2024 End: 10-13-2024 ambulatory Bertha Wood [facility] Start: 10-13-2024 End: 10-13-2024 ambulatory Navdeep Jeffrey Facility:[facility] Start: 10-05-2024 End: 10-05-2024 ambulatory Tiera Mcfarland Facility:[facility] Start: 10-03-2024 End: 10-03-2024 ambulatory BERTHA WOOD [facility] Start: 09-22-2024 End: 09-22-2024 ambulatory MARTINE LLANES [facility] Start: 09-19-2024 End: 09-19-2024 ambulatory Tiera Mcfarland Facility:[facility] Start: 09-14-2024 End: 09-14-2024 ambulatory Tiera Mcfarland Facility:[facility] Start: 08-31-2024 End: 08-31-2024 ambulatory Flory Leigh Facility:[facility] Start: 08-24-2024 End: 08-24-2024 ambulatory Bertha Wood [facility] Start: 08-19-2024 End: 08-19-2024 ambulatory Navdeep Jeffrey Facility:[facility] Start: 08-19-2024 End: 08-19-2024 ambulatory Navdeep Jeffrey Facility:[facility] Start: 08-16-2024 End: 10-17-2024 Follow-up encounter Rosario Escalona MD Work Phone: OB/Gynecology Start: 08-15-2024 End: 08-15-2024 ambulatory CHRISTIANNE CARRANZA Facility:[facility] Start: 08-14-2024 End: 10-14-2024 Follow-up encounter Rosario Escalona MD Work Phone: OB/Gynecology Start: 08-13-2024 End: 08-13-2024 ambulatory CHRISTIANNE CARRANZA Facility:[facility] Start: 08-12-2024 End: 10-12-2024 Follow-up encounter Christianne Carranza BACK TENDER PULP DRIER.CNM Work Phone: OB/Gynecology Start: 08-12-2024 End: 08-12-2024 Telephone encounter Christianne Carranza BACK TENDER PULP DRIER.CNM Work Phone: OB/Gynecology Comment on above: Transferred Care Start: 08-12-2024 ambulatory Minoo Arredondo Facility :[facility] Start: 08-11-2024 End: 08-11-2024 ambulatory CHRISTIANNE CARRANZA Facility:[facility] Start: 08-11-2024 End: 08-11-2024 Patient encounter procedure Christianne Carranza BACK TENDER P[employer] DRIER.CNM Work Phone: OB/Gynecology Comment on above: with uncer tain dates, antepartum (Primary Dx); 6 weeks gestation of ; Threatened miscarriage; Bipolar 2 disorder (HCC); Anorexia nervosa; Anxiety; Depression, unspecified depression type; Cholinergic urticaria; Encounter for supervision of high risk in first trimester, antepartum Start: 08-09-2024 End: 08-24-2024 Telephone encounter Christianne Carranza APRN.CNM Work Phone: OB/Gynecology Comment on above: Appointment Start: 06-29-2024 End: 06-29-2024 ambulatory JOSEPH CEBALLOS Facility:[facility] Start: 06-29-2024 End: 06-29-2024 Patient encounter procedure Joseph Ceballos MD Work Phone: OB/Gynecology Comment on above: Encounter for gyneco logical examination (general) (routine) without abnormal findings (Primary Dx); Attempting to conceive Start: 06-29-2024 End: 06-29-2024 Patient encounter status Joseph Ceballos MD Work Phone: [facility] Start: 05-11-2024 End: 05-11-2024 ambulatory JOSEPH CEBALLOS Facility:[facility] Start: 05-11-2024 End: 05-11-2024 Patient encounter procedure Joseph Ceballos MD Work Phone: OB/Gynecology Comment on above: Encounter for IUD re moval (Primary Dx) Start: 05-05-2024 End: 05-05-2024 ambulatory Joseph Ceballos MD Work Phone: OB/Gynecology Comment on above: Bleeding irregularly Start: 01-18-2024 End: 01-18-2024 Telephone encounter Joseph Ceballos MD Work Phone: OB/Gynecology Comment on above: Orders Start: 11-25-2023 End: 11-25-2023 ambulatory JOSEPH CEBALLOS Facility:[facility] Start: 11-25-2023 End: 11-25-2023 Patient encounter procedure Joseph Ceballos MD Work Phone: OB/Gynecology Comment on above: Irregular menses (Pr imary Dx); Intolerance to cold Start: 02-26-2023 End: 02-26-2023 Patient encounter procedure Kiki Yates APRN.TECHNICIAN SUPPORT ENGINEER Work Phone: OB/Gynecology Comment on above: Secondary amenorrhea (Primary Dx) Start: 06-04-2020 Patient encounter procedure [facility] [place] Procedures Date Procedure Procedure Detail Performing Clinician Start: 08-11-2024 Antibody screen JOSEPH CEBALLOS Comment on above: Order Comment: Speci men Type: BLOOD SPECIMENOrdering Facility: [facility] Address: [address] [place] [address] Performed By: #### T SPN ####CC MAIN BLOOD BANKCLIA [id number] [facility] [id number] [place] [address] [place] Start: 08-11-2024 Us uterus l imited 1 fetuses Christianne Madrigalrosalia LEYVA.CNM Work Phone: Start: 06-29-2024 UA DIP,URINE HCG (POC) Joseph Ceballos MD Work Phone: Start: 05-11-2024 UA DIP,URINE HCG (POC) Joseph Ceballos MD Work Phone: Start: 06-06-2020 COVID-19 Henri Bagley cCutcheon Work Phone: Start: 06-06-2020 Assay of troponin quantitative Carolina Cezararlendemetria Work Phone: Start: 06-06-2020 Basic metabolic pane l calcium total Carolina Duddella Work Phone: Start: 06-06-2020 Blood count hemoglobin Carolina Duddella Work Phone: Start: 06-06-2020 Lipid panel Danielle Le alexx Work Phone: Start: 06-05-2020 Ecg routine ecg w/le ast 12 lds w/i&r Carolina Duddella Work Phone: Start: 06-05-2020 Gluc bld gluc mntr d ev cleared fda spec home use Gonzalo De Leon Work Phone: Start: 06-04-2020 Ecg routine ecg w/le ast 12 lds w/i&r Giles Rose Work Phone: Start: 06-04-2020 Assay of acetaminophen Sharon Castro Work Phone: Start: 06-04-2020 Assay of ethanol Stephany Castro Work Phone: Start: 06-04-2020 Assay of salicylate Flynn Castro Work Phone: Start: 06-04-2020 Blood count complete auto&auto difrntl wbc Sharon Castro Work Phone: Start: 06-04-2020 Comprehensive metabo lic panel Shaorn Castro Work Phone: Start: 06-04-2020 COVID-19 Sharon Rowley ray Work Phone: Start: 06-04-2020 Drug screen class list a Sharon Castro Work Phone: Start: 06-04-2020 Gonadotropin chorion ic qualitative Sharon Castro Work Phone: Plan of Treatment Date Care Activity Detail Author Start: 06-04-2030 DTaP/Tdap/Td vaccine (5 - Td) DTaP/Tdap/Td vaccine (5 - Td) [place] Start: 06-04-2030 Urine microalbumin profile DTaP,Tdap,Td Vaccine (8 - Td or Tdap) [facility] Start: 06-08-2026 Screening for malign ant neoplasm of cervix Cervical Cancer Screening [facility] Start: 08-11-2025 GC (Gonorrhea) Scree james (18-24) GC (Gonorrhea) Screening (18-24) [facility] Start: 08-11-2025 Screening for Chlamy jennifer trachomatis Chlamydia Screening (18-) [facility] Start: 07-03-2025 End: 07-03-2025 Patient encounter procedure 07/03/2025 9:10 AM EST Office Visit OB/Gynecology [address] [place], [place] [id number] Joseph Ceballos MD [address] [place] [address] Annual OB/Gynecology Comment on above: Annual Start: 02-09-2025 RSV Vaccine (1 - Ris k 1-dose series) RSV Vaccine (1 - Risk 1-dose series) [facility] Start: 01-30-2025 Influenza vaccination Influenz a Vaccine (Season Ended) [facility] Start: 11-17-2024 End: 11-17-2024 Patient encounter procedure 11/17/2024 9:00 AM EDT Routine Office Visit [facility]aternal [facility] [address] [place] [address] Anatomy/OB [facility] Comment on above: Anatomy/OB Start: 09-08-2024 End: 09-08-2024 Patient encounter procedure 09/08/2024 10:20 AM EDT Routine Office Visit OB/Gynecology [address] [place] [place] [id number] Dell Alonso MD [address] [place] [address] 1st OB - LMP 06/30/2024 OB/Gynecology Comment on above: 1st OB - LMP 06/30/19 Start: 08-25-2024 End: 08-25-2024 Patient encounter procedure 08/25/2024 8:30 AM EDT Routine Office Visit OB/Gynecology [address] [place] [place] [id number] Dating OB/Gynecology Comment on above: Dating Start: 08-11-2024 End: 11-10-2024 ANEMIA REFLEX PANEL [facility] Work Phone: Comment on above: Expected: 08/11/2024 , Expires: 11/10/2024 Start: 08-11-2024 End: 11-10-2024 Hepatitis C virus Ab [Presence] in Serum [facility] Comment on above: Expected: 08/11/2024 , Expires: 11/10/2024 Start: 08-11-2024 End: 08-11-2025 OBSTETRIC ULTRASOUND WHI OBSTETRIC ULTRASOUND WHI Anc Imaging Routine with uncertain dates, antepartum Expected: 08/11/2024, Expires: 08/11/2025 [facility] Comment on above: Expected: 08/11/2024 , Expires: 08/11/2025 Start: 08-11-2024 End: 11-10-2024 RUBELLA IGG ANTIBODY [facility] Comment on above: Expected: 08/11/2024 , Expires: 11/10/2024 Start: 06-29-2024 End: 06-29-2024 Patient encounter procedure 06/29/2024 9:10 AM EST Office Visit OB/Gynecology [address] [place] [address] Joseph Ceballos MD [address] [place] [address] Annual OB/Gynecology Comment on above: Annual Start: 06-08-2024 GC (Gonorrhea) Scree james (18-24) GC (Gonorrhea) Screening (18-24) [facility] Start: 06-08-2024 Screening for Chlamy jennifer trachomatis Chlamydia Screening () [facility] Start: 05-11-2024 End: 05-11-2024 Patient encounter procedure 05/11/2024 10:30 AM EST Office Visit OB/Gynecology [address] [place] [address] Joseph Ceballos MD [address] [place] [address] IUD REMOVAL OB/Gynecology Comment on above: IUD REMOVAL Start: 02-24-2024 End: 02-24-2024 Patient encounter procedure 02/24/2024 8:00 AM EDT Office Visit OB/Gynecology [address] [place] [address] Joseph Ceballos MD [address] [place] [address] IUD Removal OB/Gynecology Comment on above: IUD Removal Start: 01-31-2024 Covid-19 Vaccine () Covid-19 Vaccine () [facility] Start: 01-31-2024 Influenza vaccination [facility] Start: 11-25-2023 End: 02-24-2024 Thyrotropin [Units/volume] in Serum or Plasma [facility] Work Phone: Comment on above: Expected: 11/25/2023 , Expires: 02/24/2024 Start: 01-30-2023 Covid-19 Vaccine () Covid-19 Vaccine () [facility] Start: 01-30-2023 Influenza vaccination Influenza Vacc ine (#1) [facility] Start: 2022 Pap Testing Pap Testing [facility] Start: 06-01-2022 Depression Assessment Depression Ass essment [facility] Start: 2020 Urine microalbumin profile DTaP,Tdap,Td Vaccine (1 - Tdap) [facility] Start: 01-31-2020 Influenza vaccination Flu vaccine (# 1) [place], [place] Start: 08-21-2019 Chlamydia Screening (18-24) Chlamydia Screening (18-24) [facility] Start: 08-21-2019 GC (Gonorrhea) Scree james (18-24) GC (Gonorrhea) Screening (18-24) [facility] Start: 08-21-2019 Hepatitis C Screening Hepatitis [facility] Start: 08-21-2019 Hepatitis C screening Hepatitis C [facility] Start: 08-21-2019 HIV Screening HIV Screening [facility] Start: 2017 Meningococcal B Vacc ine (1 of 2 - Standard) Meningococcal B Vaccine (1 of 2 - Standard) [facility] Start: 2017 Meningococcal B Vacc ine: Consider Based On Risk (1 of 2 - Patient Seeks Protection) Meningococcal B Vaccine: Consider Based On Risk (1 of 2 - Patient Seeks Protection) [facility] Start: 2017 Screening for Chlamy jennifer trachomatis Chlamydia screen [facility] [place] Start: 2016 HIV screening HIV screen [facility] [place] Start: 08-21-2015 Peds To Adult Transi tion Annual Assessment Peds To Adult Transition Annual Assessment [facility] Start: 2013 Peds To Adult Transi tion Initial Discussion Peds To Adult Transition Initial Discussion [facility] Start: 2010 HPV Vaccine (1 - 2-d ose series) HPV Vaccine (1 - 2-dose series) [facility] Start: 05-23-2002 Hepatitis B vaccine (3 of 3 - 3-dose primary series) Hepatitis B vaccine (3 of 3 - 3-dose primary series) [place] Start: 02-20-2002 Covid-19 Vaccine (#1) Covid-19 Vacci ne (#1) [facility] Start: 2001 Hepatitis B Vaccine (1 of 3 - 3-dose series) Hepatitis B Vaccine (1 of 3 - 3-dose series) [facility] Start: 2001 Hepatitis C screening Hepatitis C sc reen [place], [place] Bacteria identified in Urine by Culture BACTERIAL CULTURE, URINE Microbiology Routine with uncertain dates, antepartum 08/11/2024 9:34 AM EDT [facility] Chlamydia trachomatis+Neisseria gonorrhoeae DNA [Presence] in Unspecified specimen by SANTY with probe detection GONORRHEA/CHLAMYDIA NAAT Lab Routine with uncertain dates, antepartum 08/11/2024 9:34 AM EDT [facility] End: 09-09-2024 Choriogonadotropin.beta subunit [Units/volume] in Serum or Plasma HCG QUANTITATIVE Lab Routine with uncertain dates, antepartum 2x per week for 8 Occurrences starting 08/11/2024 until 09/09/2024, 1 completed [facility] Comment on above: 2x per week for 8 Oc currences starting 08/11/2024 until 09/09/2024, 1 completed Removal intrauterine device iud REMOVE INTRAUTERINE DEVICE Procedures Routine Encounter for IUD removal Ordered: 01/18/2024 [facility] Work Phone: Comment on above: Ordered: 01/18/2024 Removal intrauterine device iud REMOVE INTRAUTERINE DEVICE Procedures Routine Encounter for IUD removal Ordered: 05/11/2024 [facility] Work Phone: Comment on above: Ordered: 05/11/2024 TRICHOMONAS VAGINALI S NAAT TRICHOMONAS VAGINALIS NAAT Lab Routine with uncertain dates, antepartum 08/11/2024 9:34 AM EDT [facility] Immunizations Immunization Date Immunization Notes Care Provider Fa cility 06-04-2020 tetanus toxoid, reduced diphtheria toxoid, and acellular pertussis vaccine, adsorbed [facility], [place] 03-07-2019 influenza virus vaccine, unspecified formulation 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 Phone: [facility] NEGATED: Highlighted row has not occurred!07-23-2020 influenza, injectable, quadrivalent, preservative free 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 Phone: [facility] Comment on above: Deferred: Patient Re fused - Not in patient's med bin at time of discharge & patient did not want to wait for it to come from pharmacy Payers Date Payer Category Payer Self-pay 2024 [facility] Subscriber Plan / Payer (Effective 2024-Present) Name: ALEJANDRA KIRAN Relation to Subscriber: Spouse Name: Vadim Kiran Date of : 2000 (Home) Address: [address] [place] [address] Payer ID: [id number] ([facility]) Type: PPO Address: [facility] [id number] [place] [id number] 2024 Unknown [id number] 2023 Unknown [id number] 2021 Unknown [id number]. 1.13.159.2 .[id number] 2020 Unknown [facility] [facility] [employer] [facility] [id number] 2020-Present [phone] [address] [place] [address] [id number] .7.3.055113.315 2001 Unknown [id number] 2.16840.1.375349.3.579.2 .479 2001 Unknown [id number] 2.840.1.081490.3.579.2 .479 2001 Unknown [id number] 2.840.1.382873.3.579.2 .479 2001 Unknown [id number] 2.840.1.056993.3.579.2 .479 2001 Unknown [id number] 2.840.1.973381.3.579.2 .479 2001 Unknown [id number] 2.840.1.314126.3.579.2 .479 2001 Unknown [id number] 2.840.1.799817.3.579.2 .479 2001 Unknown [id number] 2.840.1.491826.3.579.2 .479 Unknown [id number] .840.1.968537.3.579.2 .462 Unknown [id number] 840.1.843588.3.579.2 .462 Unknown [id number] 840.1.310903.3.579.2 .462 Unknown [id number] 840.1.161647.3.579.2 .462 Unknown [id number] 840.1.619499.3.579.2 .462 Unknown [id number] 2840.1.046829.3.579.2 .462 Unknown [id number] 2.840.1.410472.3.579.2 .462 Unknown [id number] 2840.1.900479.3.579.2 .462 Unknown [id number] 2.840.1.719077.3.579.2 .462 Unknown [id number] 2.16.840.1.511218.3.579.2 .462 Unknown [id number] 2.16.840.1.832134.3.579.2 .462 Unknown [id number] 2.16.840.1.774935.3.579.2 .462 Unknown [id number] 2.16.840.1.880568.3.579.2 .462 Unknown [id number] 2.16.840.1.534075.3.579.2 .462 Unknown [id number] 2.16.840.1.376999.3.579.2 .462 Unknown [id number] 2.16.840.1.270065.3.579.2 .462 Unknown [id number] 2.16.840.1.780126.3.579.2 .462 Unknown [id number] 2.16.840.1.670291.3.579.2 .462 Unknown [id number] 2.16.840.1.939990.3.579.2 .462 Unknown [id number] 2.16.840.1.595382.3.579.2 .462 Unknown [id number] 2.16.840.1.848975.3.579.2 .462 Unknown [id number] 2.16.840.1.929995.3.579.2 .462 Unknown [id number] 2.16.840.1.514439.3.579.2 .462 Unknown [id number] 2.16.840.1.991240.3.579.2 .462 Unknown [id number] 2.16.840.1.667150.3.579.2 .462 Unknown [id number] 2.16840.1.602170.3.579.2 .462 Social History Date Type Detail Facility Start: 06-04-2020 Tobacco smoking status NHIS Never smoker [place], [place] Start: 06-04-2020 End: 08-11-2024 Tobacco use and exposure Never used [facility] OHANGEL LUIS Start: 06-04-2020 Alcohol intake Lifetime non-d tone (finding) Stephanie [facility] ANGEL LUIS MARIN Start: 06-04-2020 [facility] SDOH [facility] ANGEL LUIS MARIN Start: 2001 Sex Assigned At Not on file [facility] Exposure to SARS-CoV-2 (event) [facility]: [facility]23 End: 08-11-2024 Tobacco smoking status NHIS Ex-smoker [facility] History of tobacco use Current smoker [facility] History of tobacco use Cigarette Smoker [facility] Start: 02-26-2023 End: 05-11-2024 Alcohol intake Current drinker of alcohol (finding) [facility] Start: 02-26-2023 End: 06-08-2023 History of Social function [facility] Start: 02-26-2023 End: 06-08-2023 Tobacco use panel [facility] National Score (1-100), lower number is lower risk 48 [facility] Start: 06-08-2023 Education 13 [facility] Start: 06-29-2024 End: 08-12-2024 Alcoholic beverage intake Ex-drinker (finding) [facility] Start: 07-14-2024 [facility] NEGATED: Highlighted rowStart: TERRIEF History of tobacco use Passive smoker [facility] Functional Status Date Assessment Result Facility 07-23-2020 Are you deaf, or do you have serious difficulty hearing No 07/23/2020 4:53 PM Saira Hi RN No [facility] 07-23-2020 Are you blind, or do you have serious difficulty seeing, even when wearing glasses No 07/23/2020 4:53 PM Saira Hi RN No [facility] 07-23-2020 Do you have serious difficulty walking or climbing stairs No 07/23/2020 4:53 PM Saira Hi RN No [facility] 07-23-2020 Do you have difficul ty dressing or bathing No 07/23/2020 4:53 PM Saira Hi RN No [facility] 07-23-2020 Because of a physica l, mental, or emotional condition, do you have difficulty doing errands alone such as visiting a physician's office or shopping No 07/23/2020 4:53 PM Saira Hi RN No [facility] Mental Status Date Assessment Result Facility 07-23-2020 Because of a physica l, mental, or emotional condition, do you have serious difficulty concentrating, remembering, or making decisions No 07/23/2020 4:53 PM Saira Hi RN No [facility] Clinical Notes 02-26-2023 to 02-10-2025 Telephone Encounter - Dasha Welsh RN - 08/12/2024 10:39 AM EDTTelephone Encounter - Dasha Welsh RN - 08/12/2024 10:39 AM EDTPatient Chacho Pugh MA - 08/11/2024 8:28 AM EDT Note Date & Type Note Facility 02-10-2025 Note [facility] pital MFM CONSULTATION Referring Provider Navdeep Jeffrey, AUSTINM [address] [facility] [address] [place] [address] SUBJECTIVE Alejandra Kiran is a 24 y.o. who presents at 31w0d secondary toGDM. She presents with her partner and is [...] History: Diagnosis Date Anorexia sees therapist in [place], was tx in hosptial time 2 [...] detailed ultrasound report. Laboratory Studies reviewed in [facility]. Medical Discussion: Ultrasound results reviewed. The [...] the setting of GDM to reduce the ris (more content not included)... [facility] 09-22-2024 Note Consultation has jose christensen requested by: Navdeep Jeffrey CNM EDC: Estimated [...] counseling and care are largely handled at [place] [address] in [place] but she also sees a separate counselor, [...] 6d with an HERBIE of 04/14/2025. 2. Dozier rump length measurement are consistent with supplied dating. 3. Anatomic detail is extremely limited at this early gestational age. No gross abnormalities were noted on this examination. 4. Normal uterus and adnexa. 5. Absence of free fluid in the pelvis. Please refer to the ultrasound report for full details. [facility] Counseling Summary I reviewed the information [...] topics are listed above. Martine Llanes MD [facility] Physician, Maternal- Medicine [facility] 08-12-2024 Telephone encounter Note Patient transferred care for remainder of . She was seen in our office for 1 visit. Please bill all visits. Dasha Welsh RN [facility] 08-12-2024 Miscellaneous Notes Patient transferred care for remainder of . She was seen in our office for 1 visit. Please bill all visits. Dasha Welsh RN documented in this encounter [facility] 08-11-2024 Instructions Chacho Redman MA - 08/11/2024 8:31 AM EDT Please select the following link to access the [facility] Your Guide to a Healthy . [email or web address] documented in this encounter [facility] 08-11-2024 Note HNO ID: [id number] Author: CHACHO REDMAN MA Service: ? Author Type: Tig Welder Type: Progress Notes Filed: 08/11/2024 15:56 Note Text: OB point of care ultrasound was performed. See imaging tab for details. Chacho Redman MA [facility] 08-11-2024 History of Presen t illness Narrative OB point of care ultrasound was performed. See imaging tab for details. Chacho Redman MA *Patient is a twin but mother had IVF *Pt has a history of depression/anxiety/Bipoar 2 diagnosed in [address] Frannie Hudson at [place] [address] in [place]. She states that she has had 2 inpatient mental hospitalizations for this the last 1 being in 2020. She states she last had suicidal thoughts in 2020. Discussed increased risks of depression during and and importance of reporting the development or worsening of symptoms should they occur. *She has a history of anorexia and sees a therapist at [facility] in [facility].-She states she has had inpatient treatment [...] the following (please check all that apply)? 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 As applicable, any other physician, advance practice provider, medical student, or other health professional student that will be observing or involved in the sensitive examination for educational or training purposes was discussed with the Patient or Authorized Rubble Placer. The Patient or Authorized Rubble Placer has agreed to proceed with the sensitive [...] Christianne Carranza APRN.CNM documented in this encounter [facility] 08-09-2024 Note HNO ID: [id number] Author: CHRISTIANNE CARRANZA APRN.CNM Service: ? Author Type: Ferry Boat Captain Type: Progress Notes Filed: 08/11/2024 15:56 Note Text: *Patient is a twin but mother had IVF *Pt has a history of depression/anxiety/Bipoar 2 diagnosed in [address] Frannie Hudson at [place] [address] in [place]. She states that she has had 2 inpatient mental hospitalizations for this the last 1 being in 2020. She states she last had suicidal thoughts in 2020. Discussed increased risks of depression during and and importance of reporting the development or worsening of symptoms should they occur. *She has a history of anorexia and sees a therapist at [facility] in [facility].-She states she has had inpatient treatment [...] the following (please check all that apply)? 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 [facility] 08-09-2024 Telephone encounter Note Patient called back. Can call her around 10:30 or 11:00 today. Thank you. [facility] 08-09-2024 Miscellaneous Notes Patient called back. Can call her around 10:30 or 11:00 today. Thank you. Left message for patient to return phone call to complete nurse intake questions for her upcoming appointment. Patient has an appointment with Christianne Carranza for NOB appointment. I am here today if she calls back or transfer to [facility] documented in this encounter [facility] 08-09-2024 Telephone encounter Note Left message for patient to return phone call to complete nurse intake questions for her upcoming appointment. Patient has an appointment with Christianne Carranza for NOB appointment. I am here today if she calls back or transfer to [facility] 06-29-2024 Note HNO ID: [id number] Author: JOSEPH CEBALLOS MD Service: ? Author Type: Physician Type: Progress Notes Filed: 07/01/2024 10:13 Note Text: Nitroglycerin Neutralizer offered: Patient accepts, visit chaperoned by Erica [...] L0 SAB0 IAB0 Ectopic0 Multiple0 Live Births0 Silver Plater History LMP: 06/01/2024, Having periods Age at Menarche: 13 Age at First : Age at Menopause: Silver Plater History Comments: Sexual Activity: Yes; Male Contraception: [...] discussed with the Patient or Patient's Authorized Rubble Placer. As applicable, any other physician, advance practice provider, medical student, or other health professional student that will be observing or involved in the sensitive examination for educational or training purposes was discussed with the Patient or Authorized Rubble Placer. The Patient or Authorized Rubble Placer has agreed to proceed with the sensitive [...] external genitalia normal, normal Bartholin's glands, urethra, [place]'s glands, no vulvar lesions, no cervical lesions, [...] or sooner as needed Joseph Ceballos MD [facility] 06-29-2024 History of Presen t illness Narrative Nitroglycerin Neutralizer offered: Patient accepts, visit chaperoned by Erica [...] L0 SAB0 IAB0 Ectopic0 Multiple0 Live Births0 Silver Plater History LMP: 06/01/2024, Having periods Age at Menarche: 13 Age at First : Age at Menopause: Silver Plater History Comments: Sexual Activity: Yes; Male Contraception: [...] discussed with the Patient or Patient's Authorized Rubble Placer. As applicable, any other physician, advance practice provider, medical student, or other health professional student that will be observing or involved in the sensitive examination for educational or training purposes was discussed with the Patient or Authorized Rubble Placer. The Patient or Authorized Rubble Placer has agreed to proceed with the sensitive [...] external genitalia normal, normal Bartholin's glands, urethra, [place]'s glands, no vulvar lesions, no cervical lesions, [...] Joseph Ceballos MD documented in this encounter [facility] 05-11-2024 Note HNO ID: [id number] Author: JOSEPH CEBALLOS MD Service: ? Author Type: Physician Type: Progress Notes Filed: 05/11/2024 10:51 Note Text: Nitroglycerin Neutralizer offered: Patient accepts, visit chaperoned by Erica [...] not within 12 months. Joseph Ceballos MD [facility] 05-11-2024 History of Presen t illness Narrative Nitroglycerin Neutralizer offered: Patient accepts, visit chaperoned by Erica [...] Joseph Ceballos MD documented in this encounter [facility] 05-05-2024 Telephone encounter Note Patient called. She is not having any pain. Her appointment on 05/18 is to remove the IUD. Offered a Thursday appointment with AT. Patient declined. Scheduled on 05/11. Patient to call if she chooses to come in for a sooner appointment or with another provider. Flory Manning RN [facility] 05-05-2024 Miscellaneous Notes Patient called. She [...] Julia Chapa RN documented in this encounter [facility] 05-05-2024 Telephone encounter Note Noe placed 02/26/2023. Please see Pt's mychart message. Julia Chapa RN [facility] 01-18-2024 Telephone encounter Note Patient called and appointment scheduled. Hellen Campoverde RN [facility] 01-18-2024 Miscellaneous Notes Patient called and appointment scheduled. Hellen Campoverde RN filed Please file order in AT absence. Will call Pt to get scheduled once order is filed. Julia Chapa RN Patient is calling requesting to have IUD Liletta removed and would like this with Ayo Ceballos. Please advise patient once order is placed documented in this encounter [facility] 01-18-2024 Telephone encounter Note filed [facility] Work Phone: 01-18-2024 Telephone encounter Note Please file order in AT absence. Will call Pt to get scheduled once order is filed. Julia Chapa RN [facility] 01-18-2024 Telephone encounter Note Patient is calling requesting to have IUD Liletta removed and would like this with Ayo Ceballos. Please advise patient once order is placed [facility] 11-25-2023 Note HNO ID: [id number] Author: ERICA BEVERLY MA Service: ? Author Type: Naphthalene Operator Type: Progress Notes Filed: 11/25/2023 09:37 Note Text: . [facility] 11-25-2023 History of Presen t illness Narrative . Alejandra Kiran is a 23 year old female who presents for problem visit wishing to discuss fertility related to her progestin IUD, Liletta and parental hx of IVF. Reports irregular menses related to anorexia [id number] IUD place 2020. Menarche ~ 13 yo and regular until weight loss to 106. Now 160, 5'8. Monthly/cyclic discharge on underwear.. HPI: as above and planning in ~ 12 mo, always feels cold OB History T0 L0 SAB0 IAB0 Ectopic0 Multiple0 Live Births0 Silver Plater History LMP: 01/15/2023 (Exact Date), IUD Age at Menarche: Age at First : Age at Menopause: Silver Plater History Comments: Sexual Activity: Yes; Male Contraception: [...] external genitalia normal, normal Bartholin's glands, urethra, [place]'s glands, no vulvar lesions, no cervical lesions, good vaginal support, physiologic discharge present, normal appearing perineal body and perianal region BIMANUAL: uterus normal size, shape and consistency, no adnexal masses, and non-tender NEURO: alert and oriented x3,exam grossly non-focal EXTREMITIES: normal ASSESSMENT AND PLAN: Unremarkable obstetrics gyn physician exam noting 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 TSH Prepregnacy discussion, start PNVs Lengthy conversation >45 min Joseph Ceballos MD documented in this encounter [facility] 11-25-2023 Note HNO ID: [id number] Author: JOSEPH CEBALLOS MD Service: ? Author Type: Physician Type: Progress Notes Filed: 11/25/2023 09:37 Note Text: Alejandra Kiran is a 23 year old female who presents for problem visit wishing to discuss fertility related to her progestin IUD, Liletta and parental hx of IVF. Reports irregular menses related to anorexia [id number] IUD [address] 2020. Menarche ~ 13 yo and regular until weight loss to 106. Now 160, 5'8. Monthly/cyclic discharge on underwear.. HPI: as above and planning in ~ 12 mo, always feels cold OB History T0 L0 SAB0 IAB0 Ectopic0 Multiple0 Live Births0 Silver Plater History LMP: 01/15/2023 (Exact Date), IUD Age at Menarche: Age at First : Age at Menopause: Silver Plater History Comments: Sexual Activity: Yes; Male Contraception: [...] external genitalia normal, normal Bartholin's glands, urethra, [place]'s glands, no vulvar lesions, no cervical lesions, good vaginal support, physiologic discharge present, normal appearing perineal body and perianal region BIMANUAL: uterus normal size, shape and consistency, no adnexal masses, and non-tender NEURO: alert and oriented x3,exam grossly non-focal EXTREMITIES: normal ASSESSMENT AND PLAN: Unremarkable obstetrics gyn physician exam noting 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 TSH Prepregnacy discussion, start PNVs Lengthy conversation >45 min Joseph Ceballos MD [facility] 02-26-2023 History of Presen t illness Narrative Alejandra Cedeno is a 22 year old female who presents for problem visit of amenorrhea for 1 month(s). HPI: Pt. Went to family practice for missed period and symptoms of cramping, bloating, mood changes, heartburn, and dry mouth. Had Liletta IUD placed in August 2020 with Daniel DAVID. Used to have regular light periods with Liletta. Recently increased Prozac dosage. OB History No obstetric history on file. Silver Plater History LMP: 01/15/2023 (Exact Date), IUD Age at Menarche: Age at First : Age at Menopause: Silver Plater History Comments: Sexual Activity: Yes; Male Contraception: [...] 3 - Low documented in this encounter [facility] Evaluation note Diagnosis Secondary amenorrhea- Primary Absence of menstruation [facility] Diagnosis Irregular menses- Primary Irregular menstrual cycle Intolerance to cold Other general symptoms documented in this encounter [facility] note* Diagnosis Encounter for IUD removal- Primary Encounter for removal of intrauterine contraceptive device documented in this encounter [facility] note* Diagnosis Encounter for IUD removal- Primary Encounter for removal of intrauterine contraceptive device documented in this encounter [facility] note* Diagnosis Encounter for gynecological examination (general) (routine) without abnormal findings- Primary Attempting to conceive documented in this encounter [facility] note* Diagnosis with uncertain dates, antepartum- Primary state, incidental 6 weeks gestation of state, incidental Threatened miscarriage Threatened , unspecified as to episode of care Bipolar 2 disorder (HCC) Other bipolar disorders Anorexia nervosa Anxiety Anxiety state, unspecified Depression, unspecified depression type Cholinergic urticaria Encounter for supervision of high risk in first trimester, antepartum documented in this encounter [facility] for referral (narrative)* Outpatient Procedure (Routine) - Pending Review Specialty Diagnoses / Procedures Referred By Jose Roberto rowley Referred To Contact [facility] Diagnoses Encounter for IUD removal Procedures REMOVE INTRAUTERINE DEVICE REMOVE INTRAUTERINE DEVICE Dell Alonso MD [address] [place] [address] [facility] [address] [place] [address] Referral ID Status Reason Start Date Expiration Date Visits Requested Visits Authorized [id number] Pending Review Auto-Generat ed Referral 01/18/2024 01/17/2025 1 1 [facility] for referral (narrative)* Outpatient Procedure (Routine) - New Request Specialty Diagnoses / Procedures Referred By Jose Roberto rowley Referred To Contact [facility] Diagnoses Encounter for IUD removal Procedures REMOVE INTRAUTERINE DEVICE REMOVE INTRAUTERINE DEVICE Joseph Ceballos MD [address] [place] [address] [facility] [place] [address] Referral ID Status Reason Start Date Expiration Date Visits Requested Visits Authorized [id number] New Request Auto-Generat ed Referral 4 05/11/2025 1 1 [facility] Summary Purpose Family History No Family History Records FoundNo Family History Records FoundNo Family History Records FoundNo Family History Records FoundNo Family History Records Found Advance Directives No Advanced Directives Records FoundLatest Code Status on File Code Status Date Activated Date Inactivated Comments Full Code 06/05/2020 5:11 PM Additional Source Comments INFORMATION SOURCE (unrecogn ized section and content) DATE CREATED AUTHOR 03/19/2020 [facility] DATE CREATED AUTHOR AUTHOR'S ORGANIZ ATION 06/12/2020 [facility] DATE CREATED AUTHOR AUTHOR'S ORGANIZ ATION 08/25/2024 [facility] DATE CREATED AUTHOR AUTHOR'S ORGANIZ ATION 02/10/2025 [facility] DATE CREATED AUTHOR AUTHOR'S ORGANIZ ATION 02/12/2025 [facility] Source Comments (unrecognize d section and content) In the event this informatio n is protected by the Federal Confidentiality of Alcohol and Drug Abuse Patient Records regulations: The Federal rules restrict any use of the information to criminally investigate or prosecute any alcohol or drug abuse patient.[facility] the event this information is protected by the Federal Confidentiality of Alcohol and Drug Abuse Patient Records regulations: The Federal rules restrict any use of the information to criminally investigate or prosecute any alcohol or drug abuse patient.[facility] the event this information is protected by the Federal Confidentiality of Alcohol and Drug Abuse Patient Records regulations: The Federal rules restrict any use of the information to criminally investigate or prosecute any alcohol or drug abuse patient.[facility] the event this information is protected by the Federal Confidentiality of Alcohol and Drug Abuse Patient Records regulations: The Federal rules restrict any use of the information to criminally investigate or prosecute any alcohol or drug abuse patient.[facility] the event this information is protected by the Federal Confidentiality of Alcohol and Drug Abuse Patient Records regulations: The Federal rules restrict any use of the information to criminally investigate or prosecute any alcohol or drug abuse patient.[facility] the event this information is protected by the Federal Confidentiality of Alcohol and Drug Abuse Patient Records regulations: The Federal rules restrict any use of the information to criminally investigate or prosecute any alcohol or drug abuse patient.[facility] the event this information is protected by the Federal Confidentiality of Alcohol and Drug Abuse Patient Records regulations: The Federal rules restrict any use of the information to criminally investigate or prosecute any alcohol or drug abuse patient.[facility] the event this information is protected by the Federal Confidentiality of Alcohol and Drug Abuse Patient Records regulations: The Federal rules restrict any use of the information to criminally investigate or prosecute any alcohol or drug abuse patient.[facility] the event this information is protected by the Federal Confidentiality of Alcohol and Drug Abuse Patient Records regulations: The Federal rules restrict any use of the information to criminally investigate or prosecute any alcohol or drug abuse patient.[facility] the event this information is protected by the Federal Confidentiality of Alcohol and Drug Abuse Patient Records regulations: The Federal rules restrict any use of the information to criminally investigate or prosecute any alcohol or drug abuse patient.[facility] the event this information is protected by the Federal Confidentiality of Alcohol and Drug Abuse Patient Records regulations: The Federal rules restrict any use of the information to criminally investigate or prosecute any alcohol or drug abuse patient.[facility] the event this information is protected by the Federal Confidentiality of Alcohol and Drug Abuse Patient Records regulations: The Federal rules restrict any use of the information to criminally investigate or prosecute any alcohol or drug abuse patient.[facility] Reason for Visit (unrecogniz ed section and content) Reason Comments Establish Care Having sym ptoms- mood swings- missed menses- heartburn- cramps- bloating Reason Comments Discussion Reason Comments Orders Reason Onset Date Comments IUD Removal 05/11/2024 Specialty Diagnoses / Procedures Referred By Jose Roberto rowley Referred To Contact [facility] Diagnoses Encounter for IUD removal Encounter for insertion of intrauterine contraceptive device Procedures REMOVE INTRAUTERINE DEVICE REMOVE INTRAUTERINE DEVICE LEVONORGESTREL IU 52MG 3 YR INSERT INTRAUTERINE DEVICE Dell Alonso MD [address] [facility] [address] [facility] [address] [place] [address] Referral ID Status Reason Start Date Expiration Date Visits Requested Visits Authorized [id number] Authorized Auto-Generat ed Referral 01/19/2024 05/31/2024 2 2 Reason Comments Well Woman Reason Comments Initial OB Visit Reason Comments Transferred Care Reason Comments Appointment Care Teams (unrecognized sec tion and content) Composite Mechanic Relationship Specialty Start Date End Date Bertha Wood [address] [place] [address] PCP - General Family Medicine 06/28/20 Marie Carrillo DO Orthopedics 01/29/16 Composite Mechanic Relationship Specialty Start Date End Date Bertha Wood [address] [place] [address] PCP - General Family Medicine 06/28/20 Marie Carrillo DO Orthopedics 01/29/16 Composite Mechanic Relationship Specialty Start Date End Date Bertha Wood [address] [place] [address] PCP - General Family Medicine 06/28/20 Marie Carrillo DO Orthopedics 01/29/16 Composite Mechanic Relationship Specialty Start Date End Date Bertha Wood [address] [place] [address] PCP - General Family Medicine 06/28/20 Marie Carrillo DO Orthopedics 01/29/16 Composite Mechanic Relationship Specialty Start Date End Date Bertha Wood [address] [place] [address] PCP - General Family Medicine 06/28/20 Marie Carrillo DO Orthopedics 01/29/16 Composite Mechanic Relationship Specialty Start Date End Date Bertha Wood [address] [place] [address] PCP - General Family Medicine 06/28/20 Marie Carrillo DO Orthopedics 01/29/16 Composite Mechanic Relationship Specialty Start Date End Date Bertha Wood [address] [place] [address] PCP - General Family Medicine 06/28/20 Marie Carrillo DO Orthopedics 01/29/16 Composite Mechanic Relationship Specialty Start Date End Date Bertha Wood [address] [place] [address] PCP - General Family Medicine 06/28/20 Marie Carrillo DO Orthopedics 01/29/16 Composite Mechanic Relationship Specialty Start Date End Date Bertha Wood [address] [place] [address] PCP - General Family Medicine 06/28/20 Marie Carrillo DO Orthopedics 01/29/16 Composite Mechanic Relationship Specialty Start Date End Date Bertha Wood [address] [place] [address] PCP - General Family Medicine 06/28/20 Marie [...] BE BASED ON THE PRIMARY CLINICAL RECORDS. [facility]. provides no warranty or guarantee of the accuracy or completeness of information in this document.
--- NOTE | 2025-02-23 11:27 | OB.TRI.PN ---
Progress Notes Date of Service: 02/15/25 Progress Note: Patient presents for triage evaluation secondary to possible rupture membranes leaking fluid FHT: 130 moderate variability reactive no decelerations category I tracing [place]: No regular contractions contractions Assessment and plan: Amniotic membranes intact 31 weeks reactive NST, reassuring maternal and status patient discharged to home to follow-up as scheduled. See problem list details for additional plan information. Laboratory Studies: Laboratory Tests 02/15/25 Range/Units 15:45 Vag Amniotic Fld Detect Negative (Negative) Charges/Coding Procedures Urinary/Genital 52xxx-59xxx: 15850-11 non-stress test Interp Assessment & Plan (1) Intact amniotic membranes: (2) Supervision of high-risk : QUALIFIERS: Trimester: third trimester Qualified Code(s): O09.93 - Supervision of high risk , unspecified, third trimester COMMENT: PRR , HERBIE 04/06/25, girl _ IslaHusband: Asa (3) : QUALIFIERS: Weeks of gestation: 32 weeks Qualified Code(s): Z3A.32 - 32 weeks gestation of COMMENT: NIPT low risk, NT normal. anatomy reviewed
== END 2025-02-15 17:39 | disposition home or self-care (01) ==
LOC: WPOUT 15:31 → WP 15:32
PROVIDERS: PCP Family Medicine; Referring Provider Obstetrics & Gynecology; Visit Provider Obstetrics & Gynecology
DX: O09.93 Supervision of high risk pregnancy, unspecified, third trimester (principal); Z3A.32 32 weeks gestation of pregnancy
CPT/HCPCS: 84112; 99221; G0378

== ENCOUNTER → 2025-02-22 | Outpatient (CLI) | payer BC, SELFPAY ==
[2025-02-22 16:53] LABS: Hematocrit 36.7 % (37-47); Hemoglobin 12.7 g/dL (12.0-15.0); Immature Granulocytes Count 0.080 X10^3/uL (0.0-0.0); Mean Corp Hgb Conc 34.6 g/dL (32-36); Mean Corpuscular Volume 91.1 fL (81-99); Mean Platelet Vol. 11.2 fl (6.2-12.0); NRBC Flagged by Analyzer 0 % (0-5); Platelet Count 236 K/mm3 (150-450); RBC Distribution Width CV 13.5 % (11.6-14.6); RBC Distribution Width SD 44.5 fl (35.1-43.9); Red Blood Count 4.03 M/mm3 (4.2-5.4); White Blood Count 10.1 K/mm3 (4.4-11.0)
[2025-02-22 17:13] LABS: AST(SGOT) 34 U/L (<=31); Alanine Aminotransfer ALT/SGPT 18 U/L (<=34); Albumin, Serum 3.4 g/dL (3.5-5.0); Alkaline Phosphatase 113 U/L (35-104); Anion Gap 12 (5-15); BUN 7 mg/dL (4-19); BUN/Creat Ratio 9.7 RATIO (10-20); Calcium,Total 9.8 mg/dL (7.6-11.0); Carbon Dioxide 18.6 mmol/L (21.0-32.0); Chloride 103 mmol/L (98-108); Globulin 3.2 g/dL (2.2-4.2); Glucose 89 mg/dL (70-99); Potassium 4.1 mmol/L (3.3-5.1)
[2025-02-22 17:16] LABS: Creatinine, Urine (random) 43.30 mg/dL (28.00-217.00); Protein, Urine (Random) < 6.0 mg/dL (0.0-12.0); Protein:Creat Ratio UNABLE TO CALCULATE mg/g CRE (0-200)
[2025-02-22 17:58] LABS: LDH 179 U/L (84-246); Uric Acid 6.1 mg/dL (2.6-6.0)
--- OUTSIDE RECORDS SUMMARY | 2025-02-22 18:50 | XMS RPT_ITS | CCD ---
Author Organization [facility] Care Team Providers Care Quality Assurance Calibrator Name Role Phone Unavailable Primary Care Provider [...] Unavailable JOLLIFF, BERTHA CATHY Primary Care Unavailable PASCUAL CARRANZANEY Attending Unavailable JOLLIFF, BERTHA CATHY Primary Care Unavailable FREDDIE CHAHAL Attending Unavailable CHRISTOS, SUNDEEP A Primary Care Unavailable NAVDEEP JEFFREY Referring Unavailable NAVDEEP JEFFREY S Referring Unavailable CHRISTOS, SUNDEEP A Primary Care Unavailable FLORY DE LEON Referring Unavailab le CHRISTOS, SUNDEEP A Primary Care Unavailable HENRI AMTHIS Attending Unavailable NAVDEEP JEFFREY Referring Unavailable NAVDEEP JEFFREY Attending Unavailable CHRISTOS, SUNDEEP A Primary Care Unavailable FREDDIE CHAHAL Attending Unavailable RACHELE NAVDEEP S Referring Unavailable CHRISTOS, SUNDEEP A Primary Care Unavailable JOLLIFF, BERTHA S Primary Care Unavailable JOLLIFF, BERTHA S Referring Unavailable NAVDEEP JEFFREY Attending Unavailable MARTINE LLANES Attending Unavailable RACHELE NAVDEEP S Referring Unavailable JOLLIFF, BERTHA S Primary Care Unavailable Christos, Sundeep Primary Care Unavailable Tiera Mcfarland Attending Unavailable HunteronyTiera Attending Unavailable MarcanthonyTiera Referring Unavailable Jolliff, Bertha S Primary Care Unavailable HunteronyTiera Attending Unavailable Marcanthony, Tiera Referring Unavailable Jolliff, Bertha S Primary Care Unavailable MarcjamarionyTiera Attending Unavailable Marcanthony, Tiera Referring Unavailable Jolliff, Bertha S Primary Care Unavailable Jolliff, Bertha S Primary Care Unavailable Jolliff, Bertha S Attending Unavailable VigilAngela Attending Unavailable Jolliff, Bertha S Referring Unavailable Jolliff, Bertha S Primary Care Unavailable Navdeep Jeffrey Attending Unavailable Jolliff, Bertha S Referring Unavailable Jolliff, Bertha S Primary Care Unavailable VandFlory Lyon Attending Unavailabl e Jolliff, Bertha S Primary Care Unavailable Jolliff, Bertha S Referring Unavailable Christos, Sundeep Primary Care Unavailable Tiera Mcfarland Attending Unavailable HunteronyTiera Referring Unavailable Christos, Sundepe Primary Care Unavailable Tiera Mcfarland Attending Unavailable HunteronyTiera Referring Unavailable VigilAngela Referring Unavailable VigilAngela Attending Unavailable Christos, Sundeep Primary Care Unavailable Navdeep Jeffrey Referring Unavailable Navdeep Jeffrey Attending Unavailable Jolliff, Bertha S Primary Care Unavailable Christos, Sundeep Primary Care Unavailable Christos, Sundeep Referring Unavailable Navdeep Jeffrey Attending Unavailable Christos, Sundeep Primary Care Unavailable Christos, Sundeep Referring Unavailable Burton WILDLIFE CONSERVATIONIST, Nohemi Attending Unavailable Christos, Sundeep Primary Care Unavailable Christos, Sundeep Referring Unavailable Tiera Mcfarland Attending Unavailable Tiera Mcfarland Attending Unavailable Jolliff, Bertha S Primary Care Unavailable Jolliff, Bertha S Referring Unavailable Markie Quiros Attending Unavailabl e Christos, Sundeep Primary Care Unavailable Christos, Sundeep Primary Care Unavailable Navdeep Jeffrey Referring Unavailable Navdeep Jeffrey Attending Unavailable Flory Leigh Attending Unavailabl e Jolliff, Bertha S Primary Care Unavailable Flory Leigh Referring Unavailabl e Navdeep Jeffrey Attending Unavailable Navdeep Jeffrey Referring Unavailable Jolliff, Bertha S Primary Care Unavailable Christos, Sundeep Primary Care Unavailable Jolliff, Bertha S Referring Unavailable Flory Leigh Attending Unavailabl e Christos, Sundeep Referring Unavailable Christos, Sundeep Primary Care Unavailable Marcanthony, Tiera Attending Unavailable Jolliff, Bertha S Referring Unavailable Navdeep Jeffrey Attending Unavailable Jolliff, Bertha S Primary Care Unavailable Christos, Sundeep Primary Care Unavailable Jolliff, Bertha S Referring Unavailable Nohemi Manrique NP Attending Unavailable Minoo Arredondo Attending Unavailable Jolliff, Bertha S Primary Care Unavailable Christos, Sundeep Primary Care Unavailable Christos, Sundeep Referring Unavailable Flory Leigh Attending UnavailTiera Henirquez Attending Unavailable Jolliff, Bertha S Primary Care Unavailable Jolliff, Bertha S Referring Unavailable Christos, Sundeep Primary Care Unavailable Tiera Mcfarland Attending Unavailable Tiera Mcfarland Referring Unavailable Allergies Allergy Classification Reported Allergen(s) Allergy Type Date of Onset Reaction(s) Facility (13 sources) potato allergenic extract; Translations: [POTATO] Drug Allergy 7 Rash, Hives [facility] (14 sources) Seasonal allergy; Translations: [SEASONAL ALLERGIES] Allergy to substance 8 Other: See Comments, Cough [facility] Medications Current Medications Medication Drug Class(es) Dates [...] Active Start: 02-10-2023 take 1 capsule by [facility] once daily FLUoxetine (PROZAC) 20 [...] esmer th every 12 (twelve) hours. levonorgestrel 0.757079 mg/hr intrauterine system (7 sources) Progestin, Progestin-containing [...] Name Value Interpretation Reference Range Facil ity (ROM) Rupture Of Membraneson 02-15-2025 ROM Negative Normal Negative [facility] Comment on above: Result Comment: Amni otic fluid not present indicates No Rupture of Membranes at time of specimen collection. Performed By: #### L 501.0900, L500.4050, L100.0100 #### [facility] [address] [place], [place], [id number] Regulatory Internship Office Visit Reporton 02-09-2025 Regulatory Internship Office Visit Report [facility] [address], [address] [place] [address] OFFICE VISIT Date of Service: 02/09/25 MR#: [id number] Acct: [id number] Name: ALEJANDRA KIRAN Rep #: [id number] : 2000 Provider: Dr. Tiera santamaria MD Age/Sex: 24/F Location[place] [facility] Status: Signed Intake Vital Signs 01/06/25 15:07 01/24/25 14:50 02/09/25 16:01 02/09/25 16:06 Height 5 ft 7 in 5 ft 7 in 5 ft 7 in 5 ft 7 in Weight: 231 lb 6 oz BMI 36.2 BP 122/80 H Intake Visit Reasons: 30wk ob Diplomatic Courier Required: No Is patient in pain?: No [...] mg PO Q8H PRN nausea and 5 02/09/25 Rx tablet vomiting #30 tabs promethazine 12.5 mg tablet 12.5 mg PO Q6H PRN nausea and 06/2502/09/25 Rx vomiting 30 days #120 tabs prochlorperazine maleate 10 mg 10 mg PO Q8H PRN nausea and 02/09/25 Rx tablet (Compazine) vomiting #90 tabs flash glucose scanning reader #1 ea 02/01/25 02/09/25 Rx (FreeStyle Lucio 2 Chancellor) flash glucose sensor (FreeStyle #1 ea 02/01/25 [...] physical activity do you participate in: none puma/gnosticist: Tenriism seatbelt use: always do you feel safe at home: Yes 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 Normal [facility] Gestational GTT 3HR 100gon 0 - GEST GTT 100gm High [facility] Comment on above: Order Comment: Y Result [...] 1056 Performed By: #### L 500.4710 #### [facility] [address] [place], [address] CBC W/Diff, Automatedon 12-31 Absolute Lymph 0.91 X10 3/uL Normal 0.83-4.51 [facility] Comment on above: Performed By: #### L 100.0100, L509.8002, L501.0250, BTS, L3890.6006 #### [facility] [address] [place], [address] Absolute Neut 8.5 X10 3/uL High 2.0-7.7 [facility] Comment on above: Performed By: #### L 100.0100, L509.8002, L501.0250, BTS, L3890.6006 #### [facility] [address] [place], [address] Basophils/100 WBC (Bld) 0.2 % Normal 0-1 [facility] Comment on above: Performed By: #### L 100.0100, L509.8002, L501.0250, BTS, L3890.6006 #### [facility] [address] [place], [address] Eosinophils/100 WBC (Bld) 0.8 % Normal 0-5 [facility] Comment on above: Performed By: #### L 100.0100, L509.8002, L501.0250, BTS, L3890.6006 #### [facility] [address] [place], [address] Erythrocyte distribution width (RBC) [Ratio] 12.7 % Normal 11.6-14.6 [facility] Comment on above: Performed By: #### L 100.0100, L509.8002, L501.0250, BTS, L3890.6006 #### [facility] [address] [place], [address] Hematocrit (Bld) [Volume fraction] 33.7 % Low 37-47 [facility] Comment on above: Performed By: #### L 100.0100, L509.8002, L501.0250, BTS, L3890.6006 #### [facility] [address] [place], [address] Hemoglobin (Bld) [Mass/Vol] 11.7 g/dL Low 12.0-15.0 [facility] Comment on above: Performed By: #### L 100.0100, L509.8002, L501.0250, BTS, L3890.6006 #### [facility] [address] [place], [address] IG% 0.900 Normal 0.0-0.9 [facility] Comment on above: Result Comment: IG% - Immature Granulocytes (promyelocytes, myelocytes and metamyelocytes) > 1% indicates that a LEFT SHIFT is Present. Performed By: #### L 100.0100, L509.8002, L501.0250, BTS, L3890.6006 #### [facility] [address] [place], [address] Lymphocytes/100 WBC (Bld) 9.0 % Low 19-41 [facility] Comment on above: Performed By: #### L 100.0100, L509.8002, L501.0250, BTS, L3890.6006 #### [facility] [address] [place], [address] MCH (RBC) [Entitic mass] 31.2 pg Normal 27.0-32.0 [facility] Comment on above: Performed By: #### L 100.0100, L509.8002, L501.0250, BTS, L3890.6006 #### [facility] [address] [place], [address] MCHC (RBC) [Mass/Vol] 34.7 g/dL Normal 32-36 [facility] Comment on above: Performed By: #### L 100.0100, L509.8002, L501.0250, BTS, L3890.6006 #### [facility] [address] [place], [address] MCV (RBC) [Entitic vol] 89.9 fL Normal 81-99 [facility] Comment on above: Performed By: #### L 100.0100, L509.8002, L501.0250, BTS, L3890.6006 #### [facility] [address] [place], [address] Monocytes/100 WBC (Bld) 4.7 % Normal 0-10 [facility] Comment on above: Performed By: #### L 100.0100, L509.8002, L501.0250, BTS, L3890.6006 #### [facility] [address] [place], [address] Neutrophils/100 WBC (Bld) 84.4 % High 47-70 [facility] Comment on above: Performed By: #### L 100.0100, L509.8002, L501.0250, BTS, L3890.6006 #### [facility] [address] [place], [address] Nucleated RBC (Bld) [#/Vol] 0 10*3/uL Normal 0-5 [facility] Comment on above: Performed By: #### L 100.0100, L509.8002, L501.0250, BTS, L3890.6006 #### [facility] [address] [place], [address] Platelet mean volume (Bld) [Entitic vol] 10.7 fL Normal 6.2-12.0 [facility] Comment on above: Performed By: #### L 100.0100, L509.8002, L501.0250, BTS, L3890.6006 #### [facility] [address] [place], [address] Platelets (Bld) [#/Vol] 240 10*3/uL Normal 150-450 [facility] Comment on above: Performed By: #### L 100.0100, L509.8002, L501.0250, BTS, L3890.6006 #### [facility] [address] [place], [address] RBC (Bld) [#/Vol] 3.75 10*6/uL Low 4.2-5.4 [facility] Comment on above: Performed By: #### L 100.0100, L509.8002, L501.0250, BTS, L3890.6006 #### [facility] [address] [place], [address] RDW SD 41.4 fl Normal 35.1-43.9 [facility] Comment on above: Performed By: #### L 100.0100, L509.8002, L501.0250, BTS, L3890.6006 #### [facility] [address] [place], [address] WBC (Bld) [#/Vol] 10.1 10*3/uL Normal 4.4-11.0 [facility] Comment on above: Performed By: #### L 100.0100, L509.8002, L501.0250, BTS, L3890.6006 #### [facility] [address] [place], [place], [address] Glucose Challenge Gest 1H 50 hayley 01-24-2025 GLU GEST 50g 1H 151 mg/dL High 70-140 [facility] Comment on above: Performed By: #### L 100.0100, L509.8002, L501.0250, BTS, L3890.6006 #### [facility] [address] [place], [address] HIVon 01-24-2025 HIV Non-Reactive Normal Nonreactive [facility] Comment on above: Result Comment: Non- Reactive Reactive Repeatedly reactive samples must be confirmed according to CDC recommended confirmatory algorithms. The subresults for either HIVAG or AHIV can be used as an aid in the selection of the confirmation algorithm for reactive samples. Send out specimens with Reactive results to [facility] for confirmation. Order the HIV antibody detection and differentiation: [id number] Performed By: #### L 100.0100, L509.8002, L501.0250, BTS, L3890.6006 #### [facility] [address] [place], [place], [address] Regulatory Internship Office Visit Reporton 01-24-2025 Regulatory Internship Office Visit Report [facility] [address], [address] [place] [address] OFFICE VISIT Date of Service: 01/24/25 MR#: [id number] Acct: [id number] Name: ALEJANDRA KIRAN Rep #: [id number] : 2000 Provider: JEREMIE colorado Age/Sex: 24/F Location[place] [facility] Status: Signed Intake Vital Signs 11/09/24 15:30 01/06/25 15:07 01/24/25 14:48 01/24/25 14:50 Height 5 ft 7 in 5 ft 7 in 5 ft 7 in 5 ft 7 in Weight: 217 lb 3 oz 223 lb 9 oz BMI 34.0 35.0 BP 109/75 110/78 Intake Visit Reasons: 28wk ob/glucose Chief Complaint: 28 Week OB/Glucose Diplomatic Courier Required: No Is patient in pain?: No [...] mg PO Q8H PRN nausea and 5 01/24/25 Rx tablet vomiting #30 tabs promethazine 12.5 mg tablet 12.5 mg PO Q6H PRN nausea and 04/0 06/2501/24/25 Rx vomiting 30 days #120 tabs [...] physical activity do you participate in: none puma/gnosticist: Tenriism seatbelt use: always do you feel safe at home: Yes 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 Normal [facility] Syphilis Antibodieson 2024 Syphilis Abs Non-Reactive Normal Nonreactive [facility] Comment on above: Performed By: #### L 100.0100, L509.8002, L501.0250, BTS, L3890.6006 #### [facility] [address] [place], [address] Type AND Screenon 01-24-2025 Ab SCREEN GEL Negative Normal [facility] Comment on above: Order Comment: PN Performed By: #### L 100.0100, L509.8002, L501.0250, BTS, L3890.6006 #### [facility] [address] [place], [address] Regulatory Internship Office Visit Reporton 01-06-2025 Regulatory Internship Office Visit Report [facility] [address], [address] [place] [address] OFFICE VISIT Date of Service: 01/06/25 MR#: [id number] Acct: [id number] Name: ALEJANDRA KIRAN Rep #: [id number] : 2000 Provider: RENUKA Inman ams Age/Sex: 24/F [place] [facility] Status: Signed Intake Vital Signs 11/09/24 15:30 12/26/24 15:55 01/06/25 15:07 Height 5 ft 7 in 5 ft 7 in 5 ft 7 in Weight: 217 lb 3 oz BMI 34.0 BP 109/75 Intake Visit Reasons: 25wk ob Chief Complaint: 25wk ob Diplomatic Courier Required: No Is patient in pain?: No Allergies No Known Allergies Allergy (Verified 01/06/25 15:05) Medications ???Medication ???Instructions ???Recorded ???Confirmed ???Type docosahexaenoic acid 200 mg 200 mg PO DAILY 08/12/24 01/06/25 History capsule ( DHA) fluoxetine 40 mg capsule (Prozac) 60 mg PO QDAY 08/12/24 01/06/25 H istory levocetirizine 5 mg tablet 5 mg PO QDAY 03/14/25 08/08/25 His tory lurasidone 20 mg tablet (Latuda) [...] physical activity do you participate in: none puma/gnosticist: Tenriism seatbelt use: always do you feel safe at home: Yes 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 Date Name GA/Weeks Outcome Route Bth Weight Infant Gen Labor Lgth Anesthesia Del Lyle Provider FOB 07/30/16 5 elective Delivery Date: [...] ???-???-???-???-???-? ??-??? (more content not included)... Normal [facility] 24 HR UR Creatinine Clearanc yanet 12-29-2024 CREAT CLEARANCE 155 ml/min Normal 100-200 [facility] Comment on above: Order Comment: 3150 ML Performed By: #### L 501.0900, L500.4050, L100.0100 #### [facility] [address] [place], [address] Creatinine [Mass/Vol] 0.6 mg/dL Normal 0.6-1.0 [facility] Comment on above: Order Comment: 3150 ML Performed By: #### L 501.0900, L500.4050, L100.0100 #### [facility] [address] [place], [address] RANDOM UR TV 3150.0 ML Normal [facility] Comment on above: Order Comment: 3150 ML Performed By: #### L 501.0900, L500.4050, L100.0100 #### [facility] [address] [place], [address] Protein, Urine 24HRon 2024 UR COLLECT TIME 24.0 HOURS Normal 24.0 [facility] Comment on above: Order Comment: 3150 ML Performed By: #### L 501.0900, L500.4050, L100.0100 #### [facility] [address] [place], [address] UR TOTAL VOLUME 3150 mL Normal [facility] Comment on above: Order Comment: 3150 ML Performed By: #### L 501.0900, L500.4050, L100.0100 #### [facility] [address] [place], [address] Serum Creatinine AND GFRon 0 12-29-2024 Creatinine [Mass/Vol] 0.56 mg/dL Low 0.70-1.20 [facility] Comment on above: Performed By: #### L 501.0900, L500.4050, L100.0100 #### [facility] [address] [place], [address] GFR/1.73 sq M.predicted among non-blacks MDRD (S/P/Bld) [Vol rate/Area] 131 mL/min/{1.73_m2} Normal >60 [facility] Comment on above: Result Comment: mL/m in/1.73m2 CKD-EPI Creatinine Equation (2020) Performed By: #### L 501.0900, L500.4050, L100.0100 #### [facility] [address] [place], [address] CBC W/Diff, Automatedon 11-30 Absolute Lymph 1.31 X10 3/uL Normal 0.83-4.51 [facility] Comment on above: Performed By: #### L 501.0900, L500.4050, L100.0100 #### [facility] [address] [place], [address] Absolute Neut 8.8 X10 3/uL High 2.0-7.7 [facility] Comment on above: Performed By: #### L 501.0900, L500.4050, L100.0100 #### [facility] [address] [place], [address] Basophils/100 WBC (Bld) 0.2 % Normal 0-1 [facility] Comment on above: Performed By: #### L 501.0900, L500.4050, L100.0100 #### [facility] [address] [place], [address] Eosinophils/100 WBC (Bld) 0.8 % Normal 0-5 [facility] Comment on above: Performed By: #### L 501.0900, L500.4050, L100.0100 #### [facility] [address] [place], [address] Erythrocyte distribution width (RBC) [Ratio] 12.8 % Normal 11.6-14.6 [facility] Comment on above: Performed By: #### L 501.0900, L500.4050, L100.0100 #### [facility] [address] [place], [address] Hematocrit (Bld) [Volume fraction] 33.8 % Low 37-47 [facility] Comment on above: Performed By: #### L 501.0900, L500.4050, L100.0100 #### [facility] [address] [place], [address] Hemoglobin (Bld) [Mass/Vol] 11.9 g/dL Low 12.0-15.0 [facility] Comment on above: Performed By: #### L 501.0900, L500.4050, L100.0100 #### [facility] [address] [place], [address] IG% 0.500 Normal 0.0-0.9 [facility] Comment on above: Result Comment: IG% - Immature Granulocytes (promyelocytes, myelocytes and metamyelocytes) > 1% indicates that a LEFT SHIFT is Present. Performed By: #### L 501.0900, L500.4050, L100.0100 #### [facility] [address] [place], [address] Lymphocytes/100 WBC (Bld) 12.0 % Low 19-41 [facility] Comment on above: Performed By: #### L 501.0900, L500.4050, L100.0100 #### [facility] [address] [place], [address] MCH (RBC) [Entitic mass] 32.2 pg High 27.0-32.0 [facility] Comment on above: Performed By: #### L 501.0900, L500.4050, L100.0100 #### [facility] [address] [place], [address] MCHC (RBC) [Mass/Vol] 35.2 g/dL Normal 32-36 [facility] Comment on above: Performed By: #### L 501.0900, L500.4050, L100.0100 #### [facility] [address] [place], [address] MCV (RBC) [Entitic vol] 91.4 fL Normal 81-99 [facility] Comment on above: Performed By: #### L 501.0900, L500.4050, L100.0100 #### [facility] [address] [place], [address] Monocytes/100 WBC (Bld) 6.2 % Normal 0-10 [facility] Comment on above: Performed By: #### L 501.0900, L500.4050, L100.0100 #### [facility] [address] [place], [address] Neutrophils/100 WBC (Bld) 80.3 % High 47-70 [facility] Comment on above: Performed By: #### L 501.0900, L500.4050, L100.0100 #### [facility] [address] [place], [address] Nucleated RBC (Bld) [#/Vol] 0 10*3/uL Normal 0-5 [facility] Comment on above: Performed By: #### L 501.0900, L500.4050, L100.0100 #### [facility] [address] [place], [address] Platelet mean volume (Bld) [Entitic vol] 10.4 fL Normal 6.2-12.0 [facility] Comment on above: Performed By: #### L 501.0900, L500.4050, L100.0100 #### [facility] [address] [place], [address] Platelets (Bld) [#/Vol] 233 10*3/uL Normal 150-450 [facility] Comment on above: Performed By: #### L 501.0900, L500.4050, L100.0100 #### [facility] [address] [place], [address] RBC (Bld) [#/Vol] 3.70 10*6/uL Low 4.2-5.4 [facility] Comment on above: Performed By: #### L 501.0900, L500.4050, L100.0100 #### [facility] [address] [place], [address] RDW SD 42.2 fl Normal 35.1-43.9 [facility] Comment on above: Performed By: #### L 501.0900, L500.4050, L100.0100 #### [facility] [address] [place], [address] WBC (Bld) [#/Vol] 10.9 10*3/uL Normal 4.4-11.0 [facility] Comment on above: Performed By: #### L 501.0900, L500.4050, L100.0100 #### [facility] [address] [place], [address] Comprehensive Metabolic Prof [facility] 12-26-2024 Albumin [Mass/Vol] 3.5 g/dL Normal 3.5-5.0 [facility] Comment on above: Performed By: #### L 501.0900, L500.4050, L100.0100 #### [facility] [address] [place], [address] Albumin/Globulin [Mass ratio] 1.1 {ratio} Normal 0.9-2.4 [facility] Comment on above: Performed By: #### L 501.0900, L500.4050, L100.0100 #### [facility] [address] [place], [address] ALK PHOS 67 U/L Normal 35-104 [facility] Comment on above: Performed By: #### L 501.0900, L500.4050, L100.0100 #### [facility] [address] [place], [address] ALT [Catalytic activity/Vol] 9 U/L Normal <=34 [facility] Comment on above: Performed By: #### L 501.0900, L500.4050, L100.0100 #### [facility] [address] [place], [address] AST [Catalytic activity/Vol] 15 U/L Normal <=31 [facility] Comment on above: Performed By: #### L 501.0900, L500.4050, L100.0100 #### [facility] [address] [place], [address] Bilirubin [Mass/Vol] 0.18 mg/dL Normal 0.00-1.30 [facility] Comment on above: Performed By: #### L 501.0900, L500.4050, L100.0100 #### [facility] [address] [place], [address] BUN/CRE 10.2 RATIO Normal 10-20 [facility] Comment on above: Performed By: #### L 501.0900, L500.4050, L100.0100 #### [facility] [address] [place], [address] Calcium [Mass/Vol] 9.4 mg/dL Normal 7.6-11.0 [facility] Comment on above: Performed By: #### L 501.0900, L500.4050, L100.0100 #### [facility] [address] [place], [address] Chloride [Moles/Vol] 103 mmol/L Normal 98-108 [facility] Comment on above: Performed By: #### L 501.0900, L500.4050, L100.0100 #### [facility] [address] [place], [address] CO2 [Moles/Vol] 21.3 mmol/L Normal 21.0-32.0 [facility] Comment on above: Performed By: #### L 501.0900, L500.4050, L100.0100 #### [facility] [address] [place], [address] Creatinine [Mass/Vol] 0.50 mg/dL Low 0.70-1.20 [facility] Comment on above: Performed By: #### L 501.0900, L500.4050, L100.0100 #### [facility] [address] [place], [address] GAP 11 Normal 5-15 [facility] Comment on above: Performed By: #### L 501.0900, L500.4050, L100.0100 #### [facility] [address] [place], [address] GFR/1.73 sq M.predicted among non-blacks MDRD (S/P/Bld) [Vol rate/Area] 135 mL/min/{1.73_m2} Normal >60 [facility] Comment on above: Result Comment: mL/m in/1.73m2 CKD-EPI Creatinine Equation (2020) Performed By: #### L 501.0900, L500.4050, L100.0100 #### [facility] [address] [place], [address] Globulin (S) [Mass/Vol] 3.1 g/dL Normal 2.2-4.2 [facility] Comment on above: Performed By: #### L 501.0900, L500.4050, L100.0100 #### [facility] [address] [place], [address] Glucose [Mass/Vol] 98 mg/dL Normal 70-99 [facility] Comment on above: Performed By: #### L 501.0900, L500.4050, L100.0100 #### [facility] [address] [place], [address] Potassium [Moles/Vol] 3.9 mmol/L Normal 3.3-5.1 [facility] Comment on above: Performed By: #### L 501.0900, L500.4050, L100.0100 #### [facility] [address] [place], [address] Sodium [Moles/Vol] 136 mmol/L Normal 133-145 [facility] Comment on above: Performed By: #### L 501.0900, L500.4050, L100.0100 #### [facility] [address] [place], [address] T PROT 6.5 g/dL Normal 5.9-8.4 [facility] Comment on above: Performed By: #### L 501.0900, L500.4050, L100.0100 #### [facility] [address] [place], [address] Urea nitrogen [Mass/Vol] 5 mg/dL Normal 4-19 [facility] Comment on above: Performed By: #### L 501.0900, L500.4050, L100.0100 #### [facility] [address] [place], [address] Regulatory Internship Office Visit Reporton 12-26-2024 Regulatory Internship Office Visit Report [facility]'[address], [address] [place] [address] OFFICE VISIT Date of Service: 12/26/24 MR#: [id number] Acct: [id number] Name: ALEJANDRA KIRAN Rep #: [id number] : 2000 Provider: Dr. Tiera santamaria MD Age/Sex: 24/F Location: 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 ??-???- (more content not included)... Normal [facility] Protein+Creatinine Ratio,Uri neon 12-26-2024 PROT:CRE RATIO 315 mg/g CRE High 0-200 [facility] Comment on above: Performed By: #### L 501.0900, L500.4050, L100.0100 #### [facility] [address] [place], [address] Protein (U) [Mass/Vol] 8.4 mg/dL Normal 0.0-12.0 [facility] Comment on above: Performed By: #### L 501.0900, L500.4050, L100.0100 #### [facility] [address] [place], [address] UR CREAT 26.60 mg/dL Low 28.00-217.00 [facility] Comment on above: Performed By: #### L 501.0900, L500.4050, L100.0100 #### [facility] [address] [place], [address] Urine Cultureon 12-08-2024 [facility] Mixed Gram Positive Organisms [place] Count 25,000-50,000 MIXC Mixed contaminants. Submit a new specimen if indicated. Normal [facility] Comment on above: Performed By: #### L 501.0900, L500.4050, L100.0100 #### [facility] [address] [place], [address] Regulatory Internship Office Visit Reporton 12-07-2024 Regulatory Internship Office Visit Report [facility]'s [address], [address] [place] [address] OFFICE VISIT Date of Service: 12/07/24 MR#: [id number] Acct: [id number] Name: ALEJANDRA KIRAN Rep #: [id number] : 2000 Provider: Dr. 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 (more content not included)... Normal [facility] CBC W/Diff, Automatedon 07-0 8-2024 Absolute Lymph 1.34 X10 3/uL Normal 0.83-4.51 [facility] Comment on above: Performed By: #### L 501.0900, L500.4050, L100.0100 #### [facility] [address] [place], [address] Absolute Neut 8.6 X10 3/uL High 2.0-7.7 [facility] Comment on above: Performed By: #### L 501.0900, L500.4050, L100.0100 #### [facility] [address] [place], [address] Basophils/100 WBC (Bld) 0.2 % Normal 0-1 [facility] Comment on above: Performed By: #### L 501.0900, L500.4050, L100.0100 #### [facility] [address] [place], [address] Eosinophils/100 WBC (Bld) 0.7 % Normal 0-5 [facility] Comment on above: Performed By: #### L 501.0900, L500.4050, L100.0100 #### [facility] [address] [place], [address] Erythrocyte distribution width (RBC) [Ratio] 13.1 % Normal 11.6-14.6 [facility] Comment on above: Performed By: #### L 501.0900, L500.4050, L100.0100 #### [facility] [address] [place], [address] Hematocrit (Bld) [Volume fraction] 34.3 % Low 37-47 [facility] Comment on above: Performed By: #### L 501.0900, L500.4050, L100.0100 #### [facility] [address] [place], [address] Hemoglobin (Bld) [Mass/Vol] 11.9 g/dL Low 12.0-15.0 [facility] Comment on above: Performed By: #### L 501.0900, L500.4050, L100.0100 #### [facility] [address] [place], [address] IG% 0.600 Normal 0.0-0.9 [facility] Comment on above: Result Comment: IG% - Immature Granulocytes (promyelocytes, myelocytes and metamyelocytes) > 1% indicates that a LEFT SHIFT is Present. Performed By: #### L 501.0900, L500.4050, L100.0100 #### [facility] [address] [place], [address] Lymphocytes/100 WBC (Bld) 12.4 % Low 19-41 [facility] Comment on above: Performed By: #### L 501.0900, L500.4050, L100.0100 #### [facility] [address] [place], [address] MCH (RBC) [Entitic mass] 32.3 pg High 27.0-32.0 [facility] Comment on above: Performed By: #### L 501.0900, L500.4050, L100.0100 #### [facility] [address] [place], [address] MCHC (RBC) [Mass/Vol] 34.7 g/dL Normal 32-36 [facility] Comment on above: Performed By: #### L 501.0900, L500.4050, L100.0100 #### [facility] [address] [place], [address] MCV (RBC) [Entitic vol] 93.2 fL Normal 81-99 [facility] Comment on above: Performed By: #### L 501.0900, L500.4050, L100.0100 #### [facility] [address] [place], [address] Monocytes/100 WBC (Bld) 6.9 % Normal 0-10 [facility] Comment on above: Performed By: #### L 501.0900, L500.4050, L100.0100 #### [facility] [address] [place], [address] Neutrophils/100 WBC (Bld) 79.2 % High 47-70 [facility] Comment on above: Performed By: #### L 501.0900, L500.4050, L100.0100 #### [facility] [address] [place], [address] Nucleated RBC (Bld) [#/Vol] 0 10*3/uL Normal 0-5 [facility] Comment on above: Performed By: #### L 501.0900, L500.4050, L100.0100 #### [facility] [address] [place], [address] Platelet mean volume (Bld) [Entitic vol] 10.6 fL Normal 6.2-12.0 [facility] Comment on above: Performed By: #### L 501.0900, L500.4050, L100.0100 #### [facility] [address] [place], [address] Platelets (Bld) [#/Vol] 246 10*3/uL Normal 150-450 [facility] Comment on above: Performed By: #### L 501.0900, L500.4050, L100.0100 #### [facility] [address] [place], [address] RBC (Bld) [#/Vol] 3.68 10*6/uL Low 4.2-5.4 [facility] Comment on above: Performed By: #### L 501.0900, L500.4050, L100.0100 #### [facility] [address] [place], [address] RDW SD 44.2 fl High 35.1-43.9 [facility] Comment on above: Performed By: #### L 501.0900, L500.4050, L100.0100 #### [facility] [address] [place], [address] WBC (Bld) [#/Vol] 10.8 10*3/uL Normal 4.4-11.0 [facility] Comment on above: Performed By: #### L 501.0900, L500.4050, L100.0100 #### [facility] [address] [place], [address] Comprehensive Metabolic Prof wvon 12-06-2024 Albumin [Mass/Vol] 3.4 g/dL Low 3.5-5.0 [facility] Comment on above: Performed By: #### L 501.0900, L500.4050, L100.0100 #### [facility] [address] [place], [address] Albumin/Globulin [Mass ratio] 1.1 {ratio} Normal 0.9-2.4 [facility] Comment on above: Performed By: #### L 501.0900, L500.4050, L100.0100 #### [facility] [address] [place], [address] ALK PHOS 70 U/L Normal 35-104 [facility] Comment on above: Performed By: #### L 501.0900, L500.4050, L100.0100 #### [facility] [address] [place], [address] ALT [Catalytic activity/Vol] 10 U/L Normal <=34 [facility] Comment on above: Performed By: #### L 501.0900, L500.4050, L100.0100 #### [facility] [address] [place], [address] AST [Catalytic activity/Vol] 17 U/L Normal <=31 [facility] Comment on above: Performed By: #### L 501.0900, L500.4050, L100.0100 #### [facility] [address] [place], [address] BUN/CRE 7.7 RATIO Low 10-20 [facility] Comment on above: Performed By: #### L 501.0900, L500.4050, L100.0100 #### [facility] [address] [place], [address] Calcium [Mass/Vol] 8.9 mg/dL Normal 7.6-11.0 [facility] Comment on above: Performed By: #### L 501.0900, L500.4050, L100.0100 #### [facility] [address] [place], [address] Chloride [Moles/Vol] 104 mmol/L Normal 98-108 [facility] Comment on above: Performed By: #### L 501.0900, L500.4050, L100.0100 #### [facility] [address] [place], [address] CO2 [Moles/Vol] 23.0 mmol/L Normal 21.0-32.0 [facility] Comment on above: Performed By: #### L 501.0900, L500.4050, L100.0100 #### [facility] [address] [place], [address] Creatinine [Mass/Vol] 0.52 mg/dL Low 0.70-1.20 [facility] Comment on above: Performed By: #### L 501.0900, L500.4050, L100.0100 #### [facility] [address] [place], [address] ECRCL 199.56 ml/min Normal 50-250 [facility] Comment on above: Performed By: #### L 501.0900, L500.4050, L100.0100 #### [facility] [address] [place], [address] GAP 10 Normal 5-15 [facility] Comment on above: Performed By: #### L 501.0900, L500.4050, L100.0100 #### [facility] [address] [place], [address] GFR/1.73 sq M.predicted among non-blacks MDRD (S/P/Bld) [Vol rate/Area] 134 mL/min/{1.73_m2} Normal >60 [facility] Comment on above: Result Comment: mL/m in/1.73m2 CKD-EPI Creatinine Equation (2020) Performed By: #### L 501.0900, L500.4050, L100.0100 #### [facility] [address] [place], [address] Globulin (S) [Mass/Vol] 3.0 g/dL Normal 2.2-4.2 [facility] Comment on above: Performed By: #### L 501.0900, L500.4050, L100.0100 #### [facility] [address] [place], [address] Glucose [Mass/Vol] 94 mg/dL Normal 70-99 [facility] Comment on above: Performed By: #### L 501.0900, L500.4050, L100.0100 #### [facility] [address] [place], [address] Potassium [Moles/Vol] 3.6 mmol/L Normal 3.3-5.1 [facility] Comment on above: Performed By: #### L 501.0900, L500.4050, L100.0100 #### [facility] [address] [place], [address] Sodium [Moles/Vol] 137 mmol/L Normal 133-145 [facility] Comment on above: Performed By: #### L 501.0900, L500.4050, L100.0100 #### [facility] [address] [place], [address] T BILI < 0.15 Normal 0.00-1.30 [facility] Comment on above: Performed By: #### L 501.0900, L500.4050, L100.0100 #### [facility] [address] [place], [address] T PROT 6.5 g/dL Normal 5.9-8.4 [facility] Comment on above: Performed By: #### L 501.0900, L500.4050, L100.0100 #### [facility] [address] [place], [address] Urea nitrogen [Mass/Vol] 4 mg/dL Normal 4-19 [facility] Comment on above: Performed By: #### L 501.0900, L500.4050, L100.0100 #### [facility] [address] [place], [address] Emergency Department Summary on 12-06-2024 Emergency Department Summary [facility] Medical Records Department [address] [place] [address] Emergency Department Summary 12/06/24 MR#: [id number] Acct: [id number] Name: ALEJANDRA KIRAN Rep #: [id number] : 2000 24 From: Markie Quiros DO PCP: Dr. Sundeep Conde, DO Status:REG ER Location: ED HPI History of Present Illness Chief Complaint: Nausea/Vomiting Narrative Narrative: Chief complaint and HPI: Nausea and vomiting. 24-year-old female who is G1, P0 at 21 weeks presents for evaluation of nausea and vomiting. Patient follows with [facility] [employer]AS METER CHECKER. Patient states yesterday she developed nausea and vomiting. States she has been taking p.o. Zofran, prochlorperazine, and promethazine with some improvement. States her nausea and vomiting continued today in which she feels dehydrated. 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 Normal [facility] Urinalysis, Completeon 12-06 AMORPHOUS 1+ Normal [facility] Comment on above: Order Comment: CLEAN CATCH Performed By: #### L 400.0001 #### [facility] [address] [place], [place], [address] BACTERIA 1+ /hpf Normal None Seen [facility] Comment on above: Order Comment: CLEAN CATCH Performed By: #### L 400.0001 #### [facility] [address] [facility] [address] EPI,SQUAMOUS 10-25 SEEN Normal 5-10 [facility] Comment on above: Order Comment: CLEAN CATCH Performed By: #### L 400.0001 #### [facility] [address] [place], [address] RBC 0-5 SEEN Normal 0-5 [facility] Comment on above: Order Comment: CLEAN CATCH Performed By: #### L 400.0001 #### [facility] [address] [place], [address] WBC 10-25 SEEN Normal 0-5 [facility] Comment on above: Order Comment: CLEAN CATCH Performed By: #### L 400.0001 #### [facility] [address], [address] Mucus Ql (Urine sed) 0 SEEN Normal [facility] Comment on above: Order Comment: CLEAN CATCH Performed By: #### L 400.0001 #### [facility] [address] [place], [address] Regulatory Internship Office Visit Reporton 11-09-2024 Regulatory Internship Office Visit Report [facility] [address], [address] [place] [address] OFFICE VISIT Date of Service: 11/09/24 MR#: [id number] Acct: [id number] Name: ALEJANDRA KIRAN Rep #: [id number] : 2000 Provider: JEREMIE colorado Age/Sex: 24/F Location[place] 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 (more content not included)... Normal [facility] Chlamydia/GC SANTY aptimaon CHLAMY,NUC ACID Negative Normal Negative [facility] Comment on above: Performed By: #### L 501.0900, L500.4050, L100.0100 #### [facility] [address] [place], [address] GC BY NUC ACID Negative Normal Negative [facility] Comment on above: Result Comment: Perf ormed at: =G - [facility] [address] [place] [id number] Division Field Inspector: Monisha Ross MD, Phone: [phone] Performed By: #### L 501.0900, L5004057, L100.0100 #### [facility] [address] [place], [place], [address] Regulatory Internship Office Visit Reporton 11-04-2024 Regulatory Internship Office Visit Report [facility] [address], [address] [place] [address] OFFICE VISIT Date of Service: 11/04/24 MR#: [id number] Acct: [id number] Name: ALEJANDRA KIRAN Rep #: [id number] : 2000 Provider: RENUKA goldman Age/Sex: 24/F [place] [facility] Status: Signed with Addenda ADDENDUM by Debbie Kumar on 11/04/24 at 0912 Office Procedure Documentation entered by Debbie Kumar 11/04/24 09:12: Injections Is this a patient provided medication?: Yes Office Meds RhoGAM Ultra-Filtered PLUS 1,500 unit (300 mcg) intramuscular syringe Performing Provider: Angela Vigil CNM Performing Location: [facility] Administered by: Debbie Kumar on 11/04/24 09:11 Dose Route Admin Location Dispensed Lot Number Expiration Date [facility] Man ufacturer 1,500 unit IM left gluteus 1 ea [id number] 11/01/26 11863-181-81 [employer] [facility] [facility] Date cc: * Signed Intake Vital Signs 10/19/24 09:50 11/04/24 08:11 11/04/24 08:11 Height 5 ft 7 in 5 ft 7 in 5 ft 7 in Weight: 205 lb BMI 32.1 BP 132/81 H Intake Visit Reasons: spotting needs rhogam Diplomatic Courier Required: No Is patient in pain?: No [...] 4 mg PO Q8H PRN nausea and 11/04/24 Rx tablet vomiting #30 tabs promethazine [...] physical activity do you participate in: none puma/gnosticist: Tenriism seatbelt use: always do you feel safe at home: Yes 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 Normal [facility] Type AND Screenon 11-04-2024 Ab SCREEN GEL Negative Normal [facility] Comment on above: Order Comment: PN Performed By: #### L 501.0900, L500.4050, L100.0100 #### [facility] [address] [place], [address] Regulatory Internship Office Visit Reporton 10-13-2024 Regulatory Internship Office Visit Report [facility] [address], [address] [place] [address] OFFICE VISIT Date of Service: 10/13/24 MR#: [id number] Acct: [id number] Name: ALEJANDRA KIRAN Rep #: [id number] : 2000 Provider: RENUKA Inman ams Age/Sex: 24/F Location: 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 Normal [facility] Regulatory Internship Office Visit Reporton 10-05-2024 Regulatory Internship Office Visit Report [facility] [address], [address] [place] [address] OFFICE VISIT Date of Service: 10/05/24 MR#: [id number] Acct: [id number] Name: ALEJANDRA KIRAN Rep #: [id number] : 2000 Provider: Dr. 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 Normal [facility] CBC W/Diff, Automatedon 04-2 Absolute Lymph 1.38 X10 3/uL Normal 0.83-4.51 [facility] Comment on above: Performed By: #### L 501.0900, L500.4050, L100.0100 #### [facility] [address] [place], [address] Absolute Neut 9.1 X10 3/uL High 2.0-7.7 [facility] Comment on above: Performed By: #### L 501.0900, L500.4050, L100.0100 #### [facility] [address] [place], [address] Basophils/100 WBC (Bld) 0.3 % Normal 0-1 [facility] Comment on above: Performed By: #### L 501.0900, L500.4050, L100.0100 #### [facility] [address] [place], [address] Eosinophils/100 WBC (Bld) 0.8 % Normal 0-5 [facility] Comment on above: Performed By: #### L 501.0900, L500.4050, L100.0100 #### [facility] [address] [place], [address] Erythrocyte distribution width (RBC) [Ratio] 13.6 % Normal 11.6-14.6 [facility] [facility] Comment on above: Performed By: #### L 501.0900, L500.4050, L100.0100 #### [facility] [address] [place], [address] Hematocrit (Bld) [Volume fraction] 38.6 % Normal 37-47 [facility] Comment on above: Performed By: #### L 501.0900, L500.4050, L100.0100 #### [facility] [address] [place], [address] Hemoglobin (Bld) [Mass/Vol] 13.3 g/dL Normal 12.0-15.0 [facility] Comment on above: Performed By: #### L 501.0900, L500.4050, L100.0100 #### [facility] [address] [place], [address] IG% 0.500 Normal 0.0-0.9 [facility] Comment on above: Result Comment: IG% - Immature Granulocytes (promyelocytes, myelocytes and metamyelocytes) > 1% indicates that a LEFT SHIFT is Present. Performed By: #### L 501.0900, L500.4050, L100.0100 #### [facility] [address] [place], [address] Lymphocytes/100 WBC (Bld) 12.0 % Low 19-41 [facility] Comment on above: Performed By: #### L 501.0900, L500.4050, L100.0100 #### [facility] [address] [place], [address] MCH (RBC) [Entitic mass] 30.6 pg Normal 27.0-32.0 [facility] Comment on above: Performed By: #### L 501.0900, L500.4050, L100.0100 #### [facility] [address] [place], [address] MCHC (RBC) [Mass/Vol] 34.5 g/dL Normal 32-36 [facility] Comment on above: Performed By: #### L 501.0900, L500.4050, L100.0100 #### [facility] [address] [place], [address] MCV (RBC) [Entitic vol] 88.7 fL Normal 81-99 [facility] Comment on above: Performed By: #### L 501.0900, L500.4050, L100.0100 #### [facility] [address] [place], [address] Monocytes/100 WBC (Bld) 7.5 % Normal 0-10 [facility] Comment on above: Performed By: #### L 501.0900, L500.4050, L100.0100 #### [facility] [address] [place], [address] Neutrophils/100 WBC (Bld) 78.9 % High 47-70 [facility] Comment on above: Performed By: #### L 501.0900, L500.4050, L100.0100 #### [facility] [address] [place], [address] Nucleated RBC (Bld) [#/Vol] 0 10*3/uL Normal 0-5 [facility] Comment on above: Performed By: #### L 501.0900, L500.4050, L100.0100 #### [facility] [address] [place], [address] Platelet mean volume (Bld) [Entitic vol] 10.6 fL Normal 6.2-12.0 [facility] Comment on above: Performed By: #### L 501.0900, L500.4050, L100.0100 #### [facility] [address] [place], [address] Platelets (Bld) [#/Vol] 274 10*3/uL Normal 150-450 [facility] Comment on above: Performed By: #### L 501.0900, L500.4050, L100.0100 #### [facility] [address] [place], [address] RBC (Bld) [#/Vol] 4.35 10*6/uL Normal 4.2-5.4 [facility] Comment on above: Performed By: #### L 501.0900, L500.4050, L100.0100 #### [facility] [address] [place], [address] RDW SD 44.1 fl High 35.1-43.9 [facility] Comment on above: Performed By: #### L 501.0900, L500.4050, L100.0100 #### [facility] [address] [place], [address] WBC (Bld) [#/Vol] 11.5 10*3/uL High 4.4-11.0 [facility] Comment on above: Performed By: #### L 501.0900, L500.4050, L100.0100 #### [facility] [address] [place], [address] HIVon 09-19-2024 HIV Non-Reactive Normal Nonreactive [facility] Comment on above: Result Comment: Non- Reactive Reactive Repeatedly reactive samples must be confirmed according to CDC recommended confirmatory algorithms. The subresults for either HIVAG or AHIV can be used as an aid in the selection of the confirmation algorithm for reactive samples. Send out specimens with Reactive results to [facility] for confirmation. Order the HIV antibody detection and differentiation: lc#[id number] Performed By: #### L 501.0900, L500.4050, L100.0100 #### [facility] [address] [place], [address] Hepatitis C Antibodyon 09-19 Hepatitis C Ab Non-Reactive Normal Nonreactive [facility] Comment on above: Result Comment: Reac tive: Presumptive evidence of antibodies to HCV. Follow CDC recommendations for supplemental testing. Non-Reactive: Antibodies to HCV were not detected; does not exclude the possibility of exposure to HCV Reactive Results are presumptive evidence of antibodies to HCV. Follow CDC recommendations for supplemental testing. Order confirmation testing: HCV Quant by PCR testing - HCVPCR lc#[id number] Non Reactive: < 0.8 Equivocal: >/= 0.8 to < 1.0 Reactive: >/= 1.0 The CDC requires that a reactive/equivocal HCV antibody result be sent out for confirmation. HCV Quant by PCR testing. Performed By: #### L 400.0001 #### [facility] [address] [place], [address] L3890.6102on 09-19-2024 HEP B Surf Ag Non-Reactive Normal Nonreactive [facility] Comment on above: Result Comment: Reac tive: Presumptive evidence of HBV. Repeatedly reactive samples must be confirmed using a neutralization test ([employer] HBsAg Confirmatory Test) Non-Reactive: HBsAg not detected; does not exclude the possibility of exposure to HBV Performed By: #### L 501.0900, L500.4050, L100.0100 #### [facility] [address] [place], [address] L509.4006on 09-19-2024 Rubella IgG REAC Normal Nonreactive [facility] Comment on above: Result Comment: Anti body Result: Interpretation Non-Reactive: Non-Immune Reactive: Immune The following results were obtained with the [employer] Rubella IgG assay. Results from assays of other manufacturers cannot be used interchangeably. Performed By: #### L 501.0900, L500.4050, L100.0100 #### [facility] [address] [place], [address] NATERAon 09-19-2024 NATURA SEE SCANNED REPORT Normal [facility] Comment on above: Performed By: #### L 501.0900, L500.4050, L100.0100 #### [facility] [address] [place], [address] Syphilis Antibodieson 2024 Syphilis Abs Non-Reactive Normal Nonreactive [facility] Comment on above: Performed By: #### L 501.0900, L500.4050, L100.0100 #### [facility] [address] [place], [address] Type AND Screenon 09-19-2024 Ab SCREEN GEL Negative Normal [facility] Comment on above: Order Comment: PN Performed By: #### L 501.0900, L500.4050, L100.0100 #### [facility] [address] [place], [address] Regulatory Internship Office Visit Reporton 09-14-2024 Regulatory Internship Office Visit Report [facility] [address] [place] [address], [address] [place] [address] OFFICE VISIT Date of Service: 09/14/24 MR#: [id number] Acct: [id number] Name: ALEJANDRA KIRAN Rep #: [id number] : 2000 Provider: Dr. 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 #### T SPN ####[facility] BLOOD BANKCLIA [id number] [address]Y BRIGHTON[id number] CNPLavern 08-09-2024 CNPN Telephone (OBGYWM) ALEJANDRA KIRAN ([id number]) 2 F Date Time Provider Department 08/09/24 [...] Encounter Status:Closed by PERLA MUNOZ on 08/24/24 [facility] CNOVon 06-29-2024 CNOV Office Visit (OBGYWM ) ALEJANDRA KIRAN ([id number]) 2 F Date Time Provider Department 06/29/24 9:10 AM JOSEPH CEBALLOS OBGYWM During your visit today, we recorded the following information about you: Blood pressure Weight Height Last Period 100/64 80.7 kg 1.727 m 06/01/24 Joseph Ceballos MD 07/01/2024 10:13 AM Signed Polymerization Helper offered: Patient accepts, visit chaperoned by Erica [...] L0 SAB0 IAB0 Ectopic0 Multiple0 Live Births0 Bankruptcy Manager History LMP: 06/01/2024, Having periods Age at Menarche: 13 Age at First : Age at Menopause: Bankruptcy Manager History Comments: Sexual Activity: Yes; Male Contraception: [...] discussed with the Patient or Patient's Authorized Centerless Grinding Machine Adjuster. As applicable, any other physician, advance practice provider, medical student, or other health professional student that will be observing or involved in the sensitive examination for educational or training purposes was discussed with the Patient or Authorized Centerless Grinding Machine Adjuster. The Patient or Authorized Centerless Grinding Machine Adjuster has agreed to proceed with the sensitive [...] external genitalia normal, normal Bartholin's glands, urethra, Winn's glands, no vulvar lesions, no cervical lesions, [...] - Cough (more content not included)... Normal [facility] UA DIP,URINE HCG (POC)on Beta HCG ( test) Ql (U) Negative Negative [facility] Comment on above: Location:[facility], [address], [place], [address] Resource Program Teacher (POCT) Internal QC [facility] Location:[facility], [address], [place], [address] [facility] POINT OF CARE [facility] CNOVon 05-11-2024 CNOV Office Visit (OBGYWM ) ALEJANDRA KIRAN ([id number]) 2 F Date Time Provider Department 05/11/24 10:30 AM JOSEPH CEBALLOS OBTREVORWKevyn During your visit today, we recorded the following information about you: Blood pressure Weight 106/74 76.2 kg Joseph Ceballos MD 05/11/2024 10:51 AM Signed Polymerization Helper offered: Patient accepts, visit chaperoned by Erica Beverly. IFRAHJanessa GallegosAlejandra presents for removal of IUD due to [...] Joseph Ceballos MD Referring Provider: DELL ALONSO [[id number]] Allergies As of Date: 05/11/2024 Noted Allergy Reaction POTATO 06/24/2016 2 - Rash 4 - Hives SEASONAL ALLERGIES 02/18/2018 3 - Cough Comments: Seasonal allergies Date Reviewed: 05/11/2024 Reviewed by: Erica Beverly MA - Fully Assessed Reason for Visit: IUD Removal [1949] Primary Visit Diagnosis:Encounter for IUD removal [Z30.432] Order(s):REMOVE INTRAUTERINE DEVICE [2532587] Order #: [id number] UA DIP,URINE HCG (POC) [1109628] Order #: [id number]. #:[id number] Prescriptions as of 05/11/2024 - cetirizine (ZYRTEC) [...] for Encounter Date Provider Department Center 05/11/2024 [id number] CEBALLOS Garrett Ross Encounter Status:Closed by JOSEPH CEBALLOS on 05/11/24 Normal [facility] UA DIP,URINE HCG (POC)on Beta HCG ( test) Ql (U) Negative Negative [facility] Comment on above: Location:[facility], [address], [place], [address] Resource Program Teacher (POCT) Internal QC [place] [facility] Location:[facility], [address], [place], [address] [facility] POINT OF CARE [facility] CNPNon 01-18-2024 CNPN Telephone (OBGYWM) ALEJANDRA KIRAN ([id number]) 2 F Date Time Provider Department 01/18/24 [...] for IUD removal [Z30.432] Order(s):REMOVE INTRAUTERINE DEVICE [[id number]] Order #: [id number] Prescriptions as of 01/18/2024 - cariprazine (VRAYLAR) [...] Encounter Status:Closed by HELLEN CAMPOVERDE on 01/18/24 [facility] Jody 11-25-2023 CNOV Office Visit (OBGYWM ) ALEJANDRA KIRAN ([id number]) 2 F Date Time Provider Department 11/25/23 8:00 AM JOSEPH CEBALLOS During your visit today, we recorded the following information about you: Blood pressure Weight 100/60 75.3 kg Joseph Ceballos MD 11/25/2023 9:37 AM Signed Alejandra Kiran is a 23 year old female who presents for problem visit wishing to discuss fertility related to her progestin IUD, Liletta and parental hx of IVF. Reports irregular menses related to anorexia 9839-9286 now resolved and IUD place 2020. Menarche ~ 13 yo and regular until weight loss to 106. Now 160, 5'8. Monthly/cyclic discharge on underwear.. HPI: as above and planning in ~ 12 mo, always feels cold OB History T0 L0 SAB0 IAB0 Ectopic0 Multiple0 Live Births0 Bankruptcy Manager History LMP: 01/15/2023 (Exact Date), IUD Age at Menarche: Age at First : Age at Menopause: Bankruptcy Manager History Comments: Sexual Activity: Yes; Male Contraception: [...] external genitalia normal, normal Bartholin's glands, urethra, Winn's glands, no vulvar lesions, no cervical lesions, good vaginal support, physiologic discharge present, normal appearing perineal body and perianal region BIMANUAL: uterus normal size, shape and consistency, no adnexal masses, and non-tender NEURO: alert and oriented x3,exam grossly non-focal EXTREMITIES: normal ASSESSMENT AND PLAN: Unremarkable occupational therapist per diem exam noting cold intolerance and irregular menses [...] [R68.89] Order(s):THYROID STIMULATING HORMONE [SQTSH] Order #: [id number] FUTURE Prescriptions as of 11/25/2023 - cariprazine (VRAYL (more content not included)... Normal [facility] TSH SerPl-aCncon 11-25-2023 TSH Qn 0.989 m[IU]/L Normal 0.270-4.200 [facility] Comment on above: Order Comment: Speci men Type: BLOOD SPECIMENOrdering Facility: [facility] Address: [address] [place] [address] Result Comment: If t he patient is , TSH reference range varies by gestational period: First Trimester (weeks 9-12): 0.180-2.990 mIU/L Second Trimester: 0.110-3.980 mIU/L Third Trimester: 0.480-4.710 mIU/L Xander Walker et al. A Practical Approach for the Verifications and Determination of Site- and Trimester-Specific Reference Intervals for Thyroid Function tests in . Thyroid, 2019:29:3:412-420. Milind Bergman, et al. 2017 Guidelines of the [place] Thyroid Association for the Diagnosis and Management of Thyroid Disease during and the . Thyroid, 2017:27:3:315-389. Performed By: #### 3 016-3 ####[facility] LABCLIA [id number] [facility] [id number] [place] [address] [place] Basic Metabolic Panelon 01-0 Anion gap [Moles/Vol] 8 Normal [facility] Comment on above: Performed By: #### B MP3, HGHCT, TROPI ####[facility] [id number] [place] [address] Calcium [Mass/Vol] 9.3 mg/dL Normal 8.4-10.4 [facility] Comment on above: Performed By: #### B MP3, HGHCT, TROPI ####[address] [address] Chloride [Moles/Vol] 99 mmol/L Normal 98-107 [facility] Comment on above: Performed By: #### B MP3, HGHCT, TROPI ####[address] [address] CO2 [Moles/Vol] 28 mmol/L Normal 22-30 [facility] Comment on above: Performed By: #### B MP3, HGHCT, TROPI ####[address] [address] Creatinine [Mass/Vol] 0.69 mg/dL Normal 0.52-1.25 [facility] Comment on above: Performed By: #### B MP3, HGHCT, TROPI ####[address] [address] GFR/1.73 sq M predicted among blacks MDRD (S/P/Bld) [Vol rate/Area] mL/min/{1.73_m2} Normal >60 [facility] Comment on above: Performed By: #### B MP3, HGHCT, TROPI ####[address] [address] GFR/1.73 sq M predicted among non-blacks MDRD (S/P/Bld) [Vol rate/Area] mL/min/{1.73_m2} Normal >60 [facility] Comment on above: Result Comment: KDIG O [...] Performed By: #### B MP3, HGHCT, TROPI ####[place] [address] [place] [address] Glucose [Mass/Vol] 104 mg/dL High 70-100 [facility] Comment on above: Performed By: #### B MP3, HGHCT, TROPI ####[place] [address] [place] [address] Potassium [Moles/Vol] 3.5 mmol/L Normal 3.5-5.1 [facility] Comment on above: Performed By: #### B MP3, HGHCT, TROPI ####[place] [address] [place] [address] Sodium [Moles/Vol] 135 mmol/L Normal 135-145 [facility] Comment on above: Performed By: #### B MP3, HGHCT, TROPI ####[place] [address] [place] [address] Urea nitrogen [Mass/Vol] 11 mg/dL Normal 7-20 [facility] Comment on above: Performed By: #### B MP3, HGHCT, TROPI ####[place] [address] [place] [address] Anion gap [Moles/Vol] 8 mmol/L [place], [place] Calcium [Mass/Vol] 9.3 mg/dL 8.4 - 10.4 mg/dL [place] Chloride [Moles/Vol] 99 mmol/L 98 - 107 mmol/L [place] CO2 [Moles/Vol] 28 mmol/L 22 - 30 mmol/L [place] Creatinine [Mass/Vol] 0.69 mg/dL 0.52 - 1.25 mg/dL [place] EGFR IF NonAfrican [place] >90.0 >60 mL/min [place] Comment on above: KDIGO guidelines pro [...] MDRD (S/P/Bld) [Vol rate/Area] mL/min/{1.73_m2} >60 mL/min [place] Glucose [Mass/Vol] 104 mg/dL High 70 - 100 mg/dL [place], [place] Potassium [Moles/Vol] 3.5 mmol/L 3.5 - 5.1 mmol/L [place] Sodium [Moles/Vol] 135 mmol/L 135 - 145 mmol/L [place] Urea nitrogen [Mass/Vol] 11 mg/dL 7 - 20 mg/dL [place] Test Performed by [facility], [address] [place] [address] [place], [place] COVID-19on 06-06-2020 SARS-CoV-2 Not Detected. Not Detected [place], [place] Comment on above: Not Detected. Method: Antigen detection by lateral flow. Results should not be the sole factor in determining infection status. Test Performed by [facility], [address] [place] [address] EKG 12 Leadon 06-06-2020 Bhupinder, [facility] Incoming Cardiology Results From Rod/Chapo - 06/06/2020 6:14 PM EST [facility] [employer] [facility] Test Date: 2020-06-05 Pat Name: Alejandra Cedeno Department: 08 Room: 2629 Gender: F Bank Runner: XAVIER : 2000 Requested By: CAROLINA PAULSON Order Number: [id number] Reading MD: Peewee Peterson Measurements Intervals Pinnacle Rate: 57 P: 46 IL: 119 QRS: 57 QRSD: 92 T: 52 QT: 433 QTc: 422 Interpretive Statements Sinus bradycardia Compared to ECG 06/04/2020 22:31:38 Sinus rhythm no longer present Electronically Signed On 06-06-2020 18:13:50 EST by [facility] Test Date: 2020-06-05 Pat Name: Alejandra Cedeno Department: 08 Room: 2629 Gender: F Bank Runner: XAVIER : 2000 Requested By: CAROLINA PAULSON Order Number: [id number] Reading MD: Peewee Peterson Measurements Intervals Pinnacle Rate: 57 P: 46 [place]: 119 QRS: 57 QRSD: 92 T: 52 QT: 433 QTc: 422 Interpretive Statements Sinus bradycardia Compared to ECG 06/04/2020 22:31:38 Sinus rhythm no longer present Electronically Signed On 06-06-2020 18:13:50 EST by [place], [place] Glucose,Bedsideon 06-06-2020 Glucose [Mass/Vol] 94 mg/dL Normal 70-100 [facility] Comment on above: Result Comment: Test performed by glucose meter. Results may be 10%-15% lower than serum/plasma values. (CLIA ID [id number]) Performed By: #### B GLU #### [facility] [address] [place] [address] Hemoglobin AND Hematocriton 06-06-2020 Hematocrit (Bld) [Volume fraction] 34.6 % Low 35.0-47.0 [facility] Comment on above: Performed By: #### B MP3, HGHCT, TROPI ####[facility] [employer] [id number] [place] [address] Hemoglobin (Bld) [Mass/Vol] 11.5 g/dL Low 11.7-16.0 [facility] Comment on above: Performed By: #### B MP3, HGHCT, TROPI ####[facility] [employer] [id number] [place] [address] Hemoglobin and Hematocrit, B loodon 06-06-2020 Hematocrit (Bld) [Volume fraction] 34.6 % Low 35 - 47 % [place], [place] Hemoglobin (Bld) [Mass/Vol] 11.5 g/dL Low 11.7 - 16 g/dL [place] Test Performed by [facility] [employer] [facility], [address] [place] [address] [place], [place] Lipid Panelon 06-06-2020 Cholesterol in HDL [Mass/Vol] 43 mg/dL Normal 40-60 [place], [place] Comment on above: Performed By: #### L IPD2 #### [facility] [employer] [facility] [address] [place] [address] Cholesterol.total/Ch olesterol in HDL [Mass ratio] 4 Normal [facility] Comment on above: Result Comment: Ref Range: < 3 Low Risk for CHD 3-6 Mod Risk for CHD > 6 High Risk for CHD Performed By: #### L IPD2 #### [employer] [facility] [address] [place] [address] Protein [Mass/Vol] 105 mg/dL Abnormal <100 [facility] Comment on above: Performed By: #### L IPD2 #### [facility] [address] [place] [address] Cholesterol [Mass/Vol] 164 mg/dL Normal < 200 [place], [place] Comment on above: Performed By: #### L IPD2 #### [facility] [address] [place] [address] Triglyceride [Mass/Vol] 80 mg/dL Normal <150 [place], [place] Comment on above: Performed By: #### L IPD2 #### [facility] [employer] [facility] [address] [place] [address] Lipid panel - fastingon Cholesterol in LDL [Mass/Vol] 105 mg/dL Abnormal <100 [place] Cholesterol.total/Ch olesterol in HDL [Mass ratio] 4 {ratio} [place] Comment on above: Ref Range: < 3 Low Risk for CHD 3-6 Mod Risk for CHD > 6 High Risk for CHD Test Performed by [facility], [address] [place] [address] [place], [place] Otheron 06-06-2020 Interpretation and review of laboratory results Abnormal [place] POCT troponinon 06-06-2020 Troponin I.cardiac [Mass/Vol] 0.00 ng/mL 0 - 0.08 ng/mL [place] Comment on above: . Test Performed by [facility], [address] [place] [id number] [place] [address] [id number] 06-06-2020 SARS-CoV-2 SARS-CoV-2 --> Status: F Not Detected. Method: Antigen detection by lateral flow. Results should not be the sole factor in determining infection status. Method: Antigen detection by lateral flow. Results should not be the sole factor in determining infection status. Normal [facility] [employer] [facility] Comment on above: Performed By: #### C OVID ####[facility] [employer] [id number] [place] [address] [facility]2020 Troponin I.cardiac [Mass/Vol] 0.00 ng/mL Normal 0.00-0.08 [facility] [employer] [facility] Comment on above: Result Comment: . Performed By: #### B MP3, HGHCT, TROPI ####[facility] [employer] [id number] [place] [address] POCT Glucoseon 06-05-2020 Glucose [Mass/Vol] 94 mg/dL 70 - 100 mg/dL [place], [place] Comment on above: Test performed by ucose meter. Results may be 10%-15% lower than serum/plasma values. (CLIA ID [id number]) Test Per[facility] by [facility], [address] [place] [address] [place], [place] [id number] 06-05-2020 SARS-CoV-2 SARS-CoV-2 --> Status: F Not Detected. Expected Result: Not Detected _ Real-time, RT-PCR performed on the [employer] System by the [facility]. Negative results do not preclude SARS-CoV-2 infection and should not be used as the sole basis for treatment or other patient management decisions. This assay was developed by [employer] and distributed under an Emergency Use Authorization (EUA) granted by the FDA for the qualitative detection of SARS-CoV-2 nucleic acid. Expected Result: Not Detected _ Real-time, RT-PCR performed on the [employer] System by the [facility]. Negative results do not preclude SARS-CoV-2 infection and should not be used as the sole basis for treatment or other patient management decisions. This assay was developed by [employer] and distributed under an Emergency Use Authorization (EUA) granted by the FDA for the qualitative detection of SARS-CoV-2 nucleic acid. Normal [facility] Comment on above: Performed By: #### C OVID ####[facility] [employer] [id number] [place], [place] hCG Qual Pregon 06-05-2020 hCG Qual Preg Negative Normal [facility] Comment on above: Result Comment: Refe rence Range: NEGATIVE Effective 08/12/2019, the reference interval for the qualitative test has been updated. This test detects hCG at concentrations of 10 mIU/L or greater in serum. Performed By: #### A CET4, SAL33, ETOH4, QWAL, HEMDF, CMP3 #### [facility] [address], [place] ACETAMINOPHEN LEVELon 2020 Acetaminophen [Mass/Vol] <10.0 10 - 30 ug/mL [place], [place] Acetaminophenon 06-04-2020 Acetaminophen [Mass/Vol] < 10.0 Normal 10.0-30.0 [facility] Comment on above: Performed By: #### A CET4, SAL33, ETOH4, QWAL, HEMDF, CMP3 #### [facility] [employer] [facility] [address], [place] Comp Metabolic Panelon 06-04 ALP [Catalytic activity/Vol] 87 U/L Normal 38-126 [facility] Comment on above: Performed By: #### A CET4, SAL33, ETOH4, QWAL, HEMDF, CMP3 #### [place] [address] [place], [place] ALT [Catalytic activity/Vol] 11 U/L Normal 0-34 [facility] Comment on above: Result Comment: The ALT test is performed by an updated assay method. Please note that the reference intervals have been changed and are now sex specific. Performed By: #### A CET4, SAL33, ETOH4, QWAL, HEMDF, CMP3 #### [place] [address] [place], [place] AST [Catalytic activity/Vol] 30 U/L Normal 15-46 [facility] Comment on above: Performed By: #### A CET4, SAL33, ETOH4, QWAL, HEMDF, CMP3 #### [place] [address] [place], [place] Bilirubin [Mass/Vol] 0.4 mg/dL Normal 0.2-1.3 [facility] Comment on above: Performed By: #### A CET4, SAL33, ETOH4, QWAL, HEMDF, CMP3 #### [place] [address] [place], [place] Calcium [Mass/Vol] 10.0 mg/dL Normal 8.4-10.4 [facility] Comment on above: Performed By: #### A CET4, SAL33, ETOH4, QWAL, HEMDF, CMP3 #### [place] [address] [place], [place] Glucose [Mass/Vol] 99 mg/dL Normal 70-100 [facility] Comment on above: Performed By: #### A CET4, SAL33, ETOH4, QWAL, HEMDF, CMP3 #### [place] [address] [place], [place] Protein [Mass/Vol] 8.2 g/dL Normal 6.3-8.2 [facility] Comment on above: Performed By: #### A CET4, SAL33, ETOH4, QWAL, HEMDF, CMP3 #### [place] [address] [place], [place] Urea nitrogen [Mass/Vol] 6 mg/dL Low 7-20 [facility] Comment on above: Performed By: #### A CET4, SAL33, ETOH4, QWAL, HEMDF, CMP3 #### [facility] [address], [place] Anion gap [Moles/Vol] 11 Normal [facility] Comment on above: Performed By: #### A CET4, SAL33, ETOH4, QWAL, HEMDF, CMP3 #### [facility] [address], [place] CO2 [Moles/Vol] 24 mmol/L Normal 22-30 [facility] Comment on above: Performed By: #### A CET4, SAL33, ETOH4, QWAL, HEMDF, CMP3 #### [place] [address] [place], [place] Creatinine [Mass/Vol] 0.62 mg/dL Normal 0.52-1.25 [facility] Comment on above: Performed By: #### A CET4, SAL33, ETOH4, QWAL, HEMDF, CMP3 #### [facility] [address], [place] GFR/1.73 sq M predicted among blacks MDRD (S/P/Bld) [Vol rate/Area] mL/min/{1.73_m2} Normal >60 [facility] Comment on above: Performed By: #### A CET4, SAL33, ETOH4, QWAL, HEMDF, CMP3 #### [place] [address] [place], [place] GFR/1.73 sq M predicted among non-blacks MDRD (S/P/Bld) [Vol rate/Area] mL/min/{1.73_m2} Normal >60 [facility] Comment on above: Result Comment: KDIG O [...] CET4, SAL33, ETOH4, QWAL, HEMDF, CMP3 #### [place] [address] [place], [place] Potassium [Moles/Vol] 3.6 mmol/L Normal 3.5-5.1 [facility] Comment on above: Performed By: #### A CET4, SAL33, ETOH4, QWAL, HEMDF, CMP3 #### [place] [place], [place] Sodium [Moles/Vol] 138 mmol/L Normal 135-145 [facility] Comment on above: Performed By: #### A CET4, SAL33, ETOH4, QWAL, HEMDF, CMP3 #### [address] [place], [place] Albumin [Mass/Vol] 4.8 g/dL Normal 3.5-5.0 [facility] Comment on above: Performed By: #### A CET4, SAL33, ETOH4, QWAL, HEMDF, CMP3 #### [place] [place], [place] Chloride [Moles/Vol] 103 mmol/L Normal 98-107 [facility] Comment on above: Performed By: #### A CET4, SAL33, ETOH4, QWAL, HEMDF, CMP3 #### [address] [place] [address] Comprehensive Metabolic Pane roverto 06-04-2020 Albumin [Mass/Vol] 4.8 g/dL 3.5 - 5 g/dL [facility], [place] ALP [Catalytic activity/Vol] 87 U/L 38 - 126 U/L [place], [place] ALT [Catalytic activity/Vol] 11 U/L 0 - 34 U/L [place] Comment on above: The ALT test is perf ormed by an updated assay method. Please note that the reference intervals have been changed and are now sex specific. Anion gap [Moles/Vol] 11 mmol/L [place] AST [Catalytic activity/Vol] 30 U/L 15 - 46 U/L [place] Bilirubin Ql (U) 0.4 mg/dL 0.2 - 1.3 mg/dL [place], [place] Calcium [Mass/Vol] 10.0 mg/dL 8.4 - 10.4 mg/dL [place] Chloride [Moles/Vol] 103 mmol/L 98 - 107 mmol/L [place] CO2 [Moles/Vol] 24 mmol/L 22 - 30 mmol/L [place] Creatinine [Mass/Vol] 0.62 mg/dL 0.52 - 1.25 mg/dL [place] EGFR IF NonAfrican [place]anian >90.0 >60 mL/min [place] Comment on above: KDIGO guidelines pro [...] MDRD (S/P/Bld) [Vol rate/Area] mL/min/{1.73_m2} >60 mL/min [place] Glucose [Mass/Vol] 99 mg/dL 70 - 100 mg/dL [place], [place] Interpretation and review of laboratory results Abnormal [place] Potassium [Moles/Vol] 3.6 mmol/L 3.5 - 5.1 mmol/L [place] Protein [Mass/Vol] 8.2 g/dL 6.3 - 8.2 g/dL [place] Sodium [Moles/Vol] 138 mmol/L 135 - 145 mmol/L [place] Urea nitrogen [Mass/Vol] 6 mg/dL Low 7 - 20 mg/dL [place] Drugs of Abuseon 06-04-2020 Cocaine, Ur Negative Normal [facility] Comment on above: Performed By: #### D RGA4 ####[id number] [place], [place] Opiates, Ur Negative Normal [facility] Comment on above: Performed By: #### D RGA4 ####[place] [id number] [place], [place] Phencyclidine (PCP), Ur Negative Normal [facility] Comment on above: Result Comment: The expected [...] separate order. Performed By: #### D RGA4 ####[id number] [place], [place] Methadone, Ur Negative Normal [facility] Comment on above: Performed By: #### D RGA4 ####[id number] [place], [place] Amphetamines, Ur Negative Normal [facility] Comment on above: Performed By: #### D RGA4 ####[facility] [id number] [facility] [place] [address] Barbiturates, Ur Negative Normal [facility] Comment on above: Performed By: #### D RGA4 ####[facility] [id number] [facility] [place] [address] Benzodiazepines, Ur Negative Normal [facility] Comment on above: Performed By: #### D RGA4 ####[facility] [id number] [facility] [place] [address] Oxycodone/Oxymorphin e,Ur Negative Normal [facility] Comment on above: Performed By: #### D RGA4 ####[facility] [id number] [facility] [place] [address] ED Provider Noteon ED Provider Note Emergency [...] is scared she will hurt herself further. KALISPEL (Location/Symptom, Timing/Onset, Context/Setting, Quality, Duration, Modifying Factors, [...] otherwise acutely negative except as in the KALISPEL. Past History History reviewed. No pertinent past [...] on phone: None Gets together: None Attends [employer] service: None Active member of club or [...] eGFR >90.0 >60 mL/min EGFR IF NonAfrican Tanzanian >90.0 >60 mL/min Calcium 10.0 8.4 - [...] # 1.6 1.0 - 4.3 10*3/uL Absolute Coryell # 0.5 0.0 - 0.8 10*3/uL Absolute [...] inpatient psychiatric admission, patient was admitted to [facility] in stable condition. Patient is medically clear for psychiatric admission. ED Medication Orders (From admission, onward) Start Ordered Status Ordering Provider 06/04/20 2245 06/04/202235 Jvhtvfl-Gprxuf-Yrmzl Pertussis (BOOSTRIX) injection 0.5 mL ONCE Last MAR action: Given - by LEROY DESIREE on 06/04/20 at 2247 SHARON CASTRO Final [...] provider for clarification. SELINA Nieves Acute Care [facility] SELINA Nieves 06/05/20 0007 [facility] ED Provider Note Emergency Department Encounter [facility] EMERGENCY DEPT Patient: Alejandra Cedeno : [...] Rate and rhythm: sinus rhythm, 66 bpm Pinnacle: within normal range Intervals: IL 122, QRS 88, QTc 430 Segments: no [...] are mis-transcribed.) Giles Rose MD Acute Care [facility] Giles Rose MD 06/05/20 0343 Normal [facility] Ethanolon 06-04-2020 Ethanol Lvl <0.010 0 - 0.01 g/dL [place], [place] Comment on above: NOTE: This result is for medical treatment only. Analysis performed using non-forensic procedures. Ethanol Serum/Plasmaon 06-04 Ethanol-Serum/Plasma < 0.010 Normal 0.000-0.010 [facility] Comment on above: Result Comment: NOTE : This result is for medical treatment only. Analysis performed using non-forensic procedures. Performed By: #### A CET4, SAL33, ETOH4, QWAL, HEMDF, CMP3 #### [facility] [address] [place] [address] HCG Qualitative, Serumon hCG Qual Negative m[IU]/mL [place], [place] Comment on above: Reference Range: NEG ATIVE Effective 08/12/2019, the reference interval for the qualitative test has been updated. This test detects hCG at concentrations of 10 mIU/L or greater in serum. Test Performed by [facility], [address] [place] [address] [place], [place] Hemogram (CBC) w/Auto Diffon 06-04-2020 Absolute Baso # 0.0 10*3/uL 0 - 0.2 10*3/uL [place], [place] Absolute Neut # 4.6 10*3/uL 1.8 - 7 10*3/uL [place] Basophils/100 WBC (Bld) 0.7 % 0 - 2 % [place] Eosinophils (Bld) [#/Vol] 0.0 10*3/uL 0 - 0.5 10*3/uL [place] Eosinophils/100 WBC (Bld) 0.5 % Low 1 - 6 % [place] Erythrocyte distribution width (RBC) [Ratio] 18.1 % High 11.5 - 14.5 % [place] Granulocytes/100 WBC (Bld) 68.4 % 40 - 80 % [place] Hematocrit (Bld) [Volume fraction] 40.0 % 35 - 47 % [place] Hemoglobin (Bld) [Mass/Vol] 12.9 g/dL 11.7 - 16 g/dL [place] Interpretation and review of laboratory results Abnormal [place] Lymphocytes (Bld) [#/Vol] 1.6 10*3/uL 1 - 4.3 10*3/uL [place] Lymphocytes/100 WBC (Bld) 23.2 % 20 - 40 % [place] MCH (RBC) [Entitic mass] 25.9 pg Low 26 - 34 pg [place] MCHC (RBC) [Mass/Vol] 32.2 % 32 - 36 % [place] MCV (RBC) [Entitic vol] 80.4 fL 79 - 98 fL [place] Monocytes (Bld) [#/Vol] 0.5 10*3/uL 0 - 0.8 10*3/uL [place] Monocytes/100 WBC (Bld) 7.2 % 2 - 10 % [place] Platelet mean volume (Bld) [Entitic vol] 8.7 fL 7.4 - 10.4 fL [place], [place] Platelets (Bld) [#/Vol] 326 10*3/uL 140 - 440 10*3/uL [place] RBC (Bld) [#/Vol] 4.97 10*6/uL 3.8 - 5.2 10*6/uL [place] WBC (Bld) [#/Vol] 6.8 10*3/uL 3.6 - 10.7 10*3/uL [place] Test Performed by [facility], [address] [place] [address] [place] Hemogram w/ Autodiffon 06-04 Abs Baso Cnt 0.0 10*3/uL Normal 0.0-0.2 [facility] Comment on above: Performed By: #### A CET4, SAL33, ETOH4, QWAL, HEMDF, CMP3 #### [address] Abs Neutrophile Cnt 4.6 10*3/uL Normal 1.8-7.0 [facility] Comment on above: Performed By: #### A CET4, SAL33, ETOH4, QWAL, HEMDF, CMP3 #### [address] Basophils/100 WBC (Bld) 0.7 % Normal 0.0-2.0 [facility] Comment on above: Performed By: #### A CET4, SAL33, ETOH4, QWAL, HEMDF, CMP3 #### [address] Eosinophils (Bld) [#/Vol] 0.0 10*3/uL Normal 0.0-0.5 [facility] Comment on above: Performed By: #### A CET4, SAL33, ETOH4, QWAL, HEMDF, CMP3 #### [address] [place] Eosinophils/100 WBC (Bld) 0.5 % Low 1.0-6.0 [facility] Comment on above: Performed By: #### A CET4, SAL33, ETOH4, QWAL, HEMDF, CMP3 #### [address] [address] [place], [place] Erythrocyte distribution width (RBC) [Ratio] 18.1 % High 11.5-14.5 [facility] Comment on above: Performed By: #### A CET4, SAL33, ETOH4, QWAL, HEMDF, CMP3 #### [address] [place] Granulocytes/100 WBC (Bld) 68.4 % Normal 40.0-80.0 [facility] Comment on above: Performed By: #### A CET4, SAL33, ETOH4, QWAL, HEMDF, CMP3 #### [address] [place] Hematocrit (Bld) [Volume fraction] 40.0 % Normal 35.0-47.0 [facility] Comment on above: Performed By: #### A CET4, SAL33, ETOH4, QWAL, HEMDF, CMP3 #### [address] [place] Hemoglobin (Bld) [Mass/Vol] 12.9 g/dL Normal 11.7-16.0 [facility] Comment on above: Performed By: #### A CET4, SAL33, ETOH4, QWAL, HEMDF, CMP3 #### [address] [address] [place], [place] Lymphocytes (Bld) [#/Vol] 1.6 10*3/uL Normal 1.0-4.3 [facility] Comment on above: Performed By: #### A CET4, SAL33, ETOH4, QWAL, HEMDF, CMP3 #### [address] [place] Lymphocytes/100 WBC (Bld) 23.2 % Normal 20.0-40.0 [facility] Comment on above: Performed By: #### A CET4, SAL33, ETOH4, QWAL, HEMDF, CMP3 #### [address] MCH (RBC) [Entitic mass] 25.9 pg Low 26.0-34.0 [facility] Comment on above: Performed By: #### A CET4, SAL33, ETOH4, QWAL, HEMDF, CMP3 #### [address] MCHC (RBC) [Mass/Vol] 32.2 % Normal 32.0-36.0 [facility] Comment on above: Performed By: #### A CET4, SAL33, ETOH4, QWAL, HEMDF, CMP3 #### [address] MCV (RBC) [Entitic vol] 80.4 fL Normal 79.0-98.0 [facility] Comment on above: Performed By: #### A CET4, SAL33, ETOH4, QWAL, HEMDF, CMP3 #### [address] Monocytes (Bld) [#/Vol] 0.5 10*3/uL Normal 0.0-0.8 [facility] Comment on above: Performed By: #### A CET4, SAL33, ETOH4, QWAL, HEMDF, CMP3 #### [address] Monocytes/100 WBC (Bld) 7.2 % Normal 2.0-10.0 [facility] Comment on above: Performed By: #### A CET4, SAL33, ETOH4, QWAL, HEMDF, CMP3 #### [address] Platelet mean volume (Bld) [Entitic vol] 8.7 fL Normal 7.4-10.4 [facility] Comment on above: Performed By: #### A CET4, SAL33, ETOH4, QWAL, HEMDF, CMP3 #### [facility] [address] [place] [address] Platelets (Bld) [#/Vol] 326 10*3/uL Normal 140-440 [facility] Comment on above: Performed By: #### A CET4, SAL33, ETOH4, QWAL, HEMDF, CMP3 #### [facility] [address], [place] RBC (Bld) [#/Vol] 4.97 10*6/uL Normal 3.80-5.20 [facility] Comment on above: Performed By: #### A CET4, SAL33, ETOH4, QWAL, HEMDF, CMP3 #### [address] [place] WBC (Bld) [#/Vol] 6.8 10*3/uL Normal 3.6-10.7 [facility] Comment on above: Performed By: #### A CET4, SAL33, ETOH4, QWAL, HEMDF, CMP3 #### [address] [address] [place], [place] Otheron 06-04-2020 Test Performed by [address] [address] [facility] [place], [place] Salicylateon 06-04-2020 Salicylate Lvl <1.0 0 - 20 mg/dL [facility]- [place], [place] Test Performed by [address] [address] [facility] [place], [place] Salicylateson 06-04-2020 Salicylates < 1.0 Normal 0.0-20.0 [facility] Comment on above: Performed By: #### A CET4, SAL33, ETOH4, QWAL, HEMDF, CMP3 #### [address] [address] Urine Drug Screenon 06-04-19 21 Amphetamines, urine Negative [facility] [place], [place] Barbiturates, Ur Negative [facility] [place] [place] Benzodiazepine Ur Qual Negative [facility] [place] Cocaine Metabolites, Ur Negative [facility] [place], [place] Methadone, Urine Negative [facility], [place] Opiates, Urine Negative [place], [place] Oxycodone Screen, Ur Negative [facility], [place] PCP, Urine Negative [facility], [place] Comment on above: The expected value f [...] confirmation under separate order. Test [facility] [address] [address] [place], [place] GI FLUORO CHEST SNIFF TESTon 03-19-2020 [...] right hemidiaphragm. IMPRESSION: 1. Normal diaphragmatic excursion. Aluminum Container Tester: MARCELO Transcribe Date/Time: Mar 19 2020 9:24A Dictated by : LISA KRAUS MD This examination was interpreted and the report reviewed and electronically signed by: LISA KRAUS MD on Mar 19 2020 9:27AM EST [id number] Vital Signs Date Time Vital Sign Value Performing Clinician Malia martinez 08-11-2024 08:39-0400 Body height 172.7 cm Christianne Madrigalrosalia MEDICAL UNIT SECRETARY.CNM Work Phone: [facility] 08-11-2024 08:39-0400 Body mass index (BMI) [Ratio] 27.37 kg/m2 Christianne Plotts MEDICAL UNIT SECRETARY.CNM Work Phone: [facility] 08-11-2024 08:39-0400 Body weight 81.65 kg Christianne Madrigalts MEDICAL UNIT SECRETARY.CNM Work Phone: [facility] 08-11-2024 08:39-0400 Diastolic blood pressure 72 mm[Hg] Christianne Plotts MEDICAL UNIT SECRETARY.CNM Work Phone: [facility] 08-11-2024 08:39-0400 Systolic blood pressure 110 mm[Hg] Christianne Plotts MEDICAL UNIT SECRETARY.CNM Work Phone: [facility] 06-29-2024 09:06-0500 Body height 172.7 cm Joseph Ceballos MD Work Phone: [facility] 06-29-2024 09:06-0500 Body mass index (BMI) [Ratio] 27.06 kg/m2 Joseph Ceballos MD Work Phone: [facility] 06-29-2024 09:06-0500 Body weight 80.74 kg Joseph Ceballos MD Work Phone: [facility] 06-29-2024 09:06-0500 Diastolic blood pressure 64 mm[Hg] Joseph Ceballos MD Work Phone: [facility] 06-29-2024 09:06-0500 Systolic blood pressure 100 mm[Hg] Joseph Ceballos MD Work Phone: [facility] 05-11-2024 10:17-0500 Body mass index (BMI) [Ratio] 26.51 kg/m2 Joseph Ceballos MD Work Phone: [facility] 05-11-2024 10:17-0500 Body weight 76.2 kg Joseph Ceballos MD Work Phone: [facility] 05-11-2024 10:17-0500 Diastolic blood pressure 74 mm[Hg] Joseph Ceballos MD Work Phone: [facility] 05-11-2024 10:17-0500 Systolic blood pressure 106 mm[Hg] Joesph Ceballos MD Work Phone: [facility] 11-25-2023 08:05-0400 Body mass index (BMI) [Ratio] 26.19 kg/m2 Joseph Ceballos MD Work Phone: [facility] 11-25-2023 08:05-0400 Body weight 75.3 kg Joseph Ceballos MD Work Phone: [facility] 11-25-2023 08:05-0400 Diastolic blood pressure 60 mm[Hg] Joseph Ceballos MD Work Phone: [facility] 11-25-2023 08:05-0400 Systolic blood pressure 100 mm[Hg] Joseph Ceballos MD Work Phone: [facility] 02-26-2023 14:00-0400 Body height 170.2 cm Kiki Milan MEDICAL UNIT SECRETARY.EVENT MARKETING REPRESENTATIVE Work Phone: [facility] 02-26-2023 14:00-0400 Body weight 73.94 kg Kiki [place] MEDICAL UNIT SECRETARY.EVENT MARKETING REPRESENTATIVE Work Phone: [facility] 02-26-2023 14:00-0400 Diastolic blood pressure 64 mm[Hg] Kiki Milan MEDICAL UNIT SECRETARY.EVENT MARKETING REPRESENTATIVE Work Phone: [facility] 02-26-2023 14:00-0400 Systolic blood pressure 112 mm[Hg] Kiki Milan MEDICAL UNIT SECRETARY.EVENT MARKETING REPRESENTATIVE Work Phone: [facility] 06-11-2020 05:45-0500 Body Temperature 97.7 [degF] [facility] [place] [place] 06-11-2020 05:45-0500 BP Diastolic 74 mm[Hg] [facility] [place] , [place] 06-11-2020 05:45-0500 BP Systolic 117 mm[Hg] [facility] , [place] 06-11-2020 05:45-0500 Pulse (Heart Rate) 67 /min [facility], [place] 06-11-2020 05:45-0500 Pulse Oximetry 98 % [facility] , [place] 06-11-2020 05:45-0500 Respiratory Rate 16 /min [facility] H, ANGEL LUIS 06-04-2020 20:24-0500 BMI (Body Mass Index) 21.79 kg/m2 [facility], [place] 06-04-2020 20:24-0500 Body weight 61.24 kg [facility] , [place] 06-04-2020 20:24-0500 Height 167.6 cm [facility] , [place] Encounters Encounter Date Encounter Type Care Provider Facility Start: 02-22-2025 ambulatory [facility] Start: 02-15-2025 End: 02-15-2025 ambulatory [facility] Facility:[facility] Start: 02-10-2025 End: 02-10-2025 ambulatory FREDDIE Neil [facility] Start: 02-09-2025 End: 02-09-2025 ambulatory [facility] Start: 02-07-2025 End: 02-07-2025 ambulatory NAVDEEP JEFFREY [facility] Start: 02-01-2025 End: 02-01-2025 ambulatory [facility] Facility:[facility] Start: 01-24-2025 End: 01-24-2025 ambulatory [facility] Start: 01-24-2025 End: 01-24-2025 ambulatory [facility] Facility:[facility] Start: 01-06-2025 End: 01-06-2025 ambulatory [facility] Start: 12-29-2024 End: 12-29-2024 ambulatory [facility] Facility:[facility] Start: 12-26-2024 End: 12-26-2024 ambulatory [facility] Start: 12-26-2024 End: 12-26-2024 ambulatory [facility] Facility:[facility] Start: 12-20-2024 End: 12-20-2024 ambulatory FLORY DE LEON [facility] Start: 12-07-2024 End: 12-07-2024 ambulatory Sundeep Conde [facility] Start: 12-06-2024 End: 12-06-2024 Emergency department patient visit Markie Ishaan Facility:[facility] Start: 12-01-2024 End: 12-01-2024 ambulatory NAVDEEP JEFFREY [facility] Start: 11-17-2024 End: 11-17-2024 ambulatory FREDDIE CHAHAL [facility] Start: 11-09-2024 End: 11-09-2024 ambulatory Sundeep Conde [facility] Start: 11-04-2024 End: 11-04-2024 ambulatory Angela Vigil [facility] Start: 11-04-2024 End: 11-04-2024 ambulatory Angela Vigil Facility:[facility] Start: 10-19-2024 End: 10-19-2024 ambulatory Tiera Mcfarland Facility:[facility] Start: 10-13-2024 End: 10-13-2024 ambulatory Bertha Wood [facility] Start: 10-13-2024 End: 10-13-2024 ambulatory Navdeep Jeffrey Facility:[facility] Start: 10-05-2024 End: 10-05-2024 ambulatory Tiera Mcfarland Facility:[facility] Start: 10-03-2024 End: 10-03-2024 ambulatory BERTHA S NEERAJ [facility] Start: 09-22-2024 End: 09-22-2024 ambulatory MARTINE LLANES [facility] Start: 09-19-2024 End: 09-19-2024 ambulatory Tiera Mcfarland Facility:[facility] Start: 09-14-2024 End: 09-14-2024 ambulatory Tiera Mcfarland [facility] Start: 08-31-2024 End: 08-31-2024 ambulatory Flory Leigh Facility:[facility] Start: 08-24-2024 End: 08-24-2024 ambulatory Flory Leigh [facility] Start: 08-19-2024 End: 08-19-2024 ambulatory Navdeep Jeffrey [facility] Start: 08-19-2024 End: 08-19-2024 ambulatory Navdeep Jeffrey Facility:[facility] Start: 08-16-2024 End: 10-17-2024 Follow-up encounter Rosario Escalona MD Work Phone: OB/Gynecology Start: 08-15-2024 End: 08-15-2024 ambulatory CHRISTIANNE CARRANZA Facility:[facility] Start: 08-14-2024 End: 10-14-2024 Follow-up encounter Rosario Escalona MD Work Phone: OB/Gynecology Start: 08-13-2024 End: 08-13-2024 ambulatory CHRISTIANNE KHUSHBU Facility:[facility] Start: 08-12-2024 End: 10-12-2024 Follow-up encounter Christianne Carranza MEDICAL UNIT SECRETARY.CNM Work Phone: OB/Gynecology Start: 08-12-2024 End: 08-12-2024 Telephone encounter Christianne Carranza MEDICAL UNIT SECRETARY.CNM Work Phone: OB/Gynecology Comment on above: Transferred Care Start: 08-12-2024 ambulatory Minoo Arredondo [facility] Start: 08-11-2024 End: 08-11-2024 ambulatory [facility] Start: 08-11-2024 End: 08-11-2024 Patient encounter procedure Christianne Carranza MEDICAL UNIT SECRETARY.CNM Work Phone: OB/Gynecology Comment on above: with uncer tain dates, antepartum (Primary Dx); 6 weeks gestation of ; Threatened miscarriage; Bipolar 2 disorder (HCC); Anorexia nervosa; Anxiety; Depression, unspecified depression type; Cholinergic urticaria; Encounter for supervision of high risk in first trimester, antepartum Start: 08-09-2024 End: 08-24-2024 Telephone encounter Christianne Carranza MEDICAL UNIT SECRETARY.CNM Work Phone: OB/Gynecology Comment on above: Appointment Start: 06-29-2024 End: 06-29-2024 ambulatory JOSEPH CEBALLOS Facility:[facility] Start: 06-29-2024 End: 06-29-2024 Patient encounter procedure Joseph Ceballos MD Work Phone: OB/Gynecology Comment on above: Encounter for gyneco logical examination (general) (routine) without abnormal findings (Primary Dx); Attempting to conceive Start: 06-29-2024 End: 06-29-2024 Patient encounter status Joseph Ceballos MD Work Phone: [facility] Start: 05-11-2024 End: 05-11-2024 ambulatory JOSEPH CEBALLOS Facility:[facility] Start: 05-11-2024 End: 05-11-2024 Patient encounter procedure Joseph Ceballos MD Work Phone: OB/Gynecology Comment on above: Encounter for IUD re moval (Primary Dx) Start: 05-05-2024 End: 05-05-2024 ambulatory Joseph Ceballos MD Work Phone: OB/Gynecology Comment on above: Bleeding irregularly Start: 01-18-2024 End: 01-18-2024 Telephone encounter Joseph Ceballos MD Work Phone: OB/Gynecology Comment on above: Orders Start: 11-25-2023 End: 11-25-2023 ambulatory JOSEPH CEBALLOS Facility:[facility] Start: 11-25-2023 End: 11-25-2023 Patient encounter procedure Joseph Ceballos MD Work Phone: OB/Gynecology Comment on above: Irregular menses (Pr imary Dx); Intolerance to cold Start: 02-26-2023 End: 02-26-2023 Patient encounter procedure Kiki Yates APRN.EVENT MARKETING REPRESENTATIVE Work Phone: OB/Gynecology Comment on above: Secondary amenorrhea (Primary Dx) Start: 06-04-2020 Patient encounter procedure [facility] [place] Procedures Date Procedure Procedure Detail Performing Clinician Start: 08-11-2024 Antibody screen JOSEPH CEBALLOS Comment on above: Order Comment: Speci men Type: BLOOD SPECIMENOrdering Facility: [facility] Address: [address] [place] [address] [place] [address] Performed By: #### T SPN ####CC MAIN BLOOD BANKCLIA [id number] [place] [id number] [place] Start: 08-11-2024 Us uterus l imited 1/> fetuses Christianne Carranza MEDICAL UNIT SECRETARY.CNM Work Phone: Start: 06-29-2024 UA DIP,URINE HCG (POC) Joseph Ceballos MD Work Phone: Start: 05-11-2024 UA DIP,URINE HCG (POC) Joseph Ceballos MD Work Phone: Start: 06-06-2020 COVID-19 Henri Bagley M cCutcheon Work Phone: Start: 06-06-2020 Assay of troponin quantitative Carolina Dujake Work Phone: Start: 06-06-2020 Basic metabolic pane [...] w/le ast 12 lds w/i&r Giles B Lafountain Work Phone: Start: 06-04-2020 Assay of acetaminophen Sharon Castro Work Phone: Start: 06-04-2020 Assay of ethanol Stephany Castro Work Phone: Start: 06-04-2020 Assay of salicylate Flynn daisy Castro Work Phone: Start: 06-04-2020 Blood count [...] - Td) DTaP/Tdap/Td vaccine (5 - Td) [place], [place] Start: 06-04-2030 Urine microalbumin profile DTaP,Tdap,Td Vaccine (8 - Td or Tdap) [facility] Start: 06-08-2026 Screening for malign ant neoplasm of cervix Cervical Cancer Screening [facility] Start: 08-11-2025 GC (Gonorrhea) Scree james (18-24) GC (Gonorrhea) Screening (18-24) [facility] Start: 08-11-2025 Screening for Chlamy jennifer trachomatis Chlamydia Screening () [facility] Start: 07-03-2025 End: 07-03-2025 Patient encounter procedure 07/03/2025 9:10 AM EST Office Visit OB/Gynecology [address] [place] [address] Joseph Ceballos MD [address] [place] [id number] Annual OB/Gynecology Comment on above: Annual Start: 02-09-2025 RSV Vaccine (1 - Ris k 1-dose series) RSV Vaccine (1 - Risk 1-dose series) [facility] Start: 01-30-2025 Influenza vaccination Influenz a Vaccine (Season Ended) [facility] Start: 11-17-2024 End: 11-17-2024 Patient encounter procedure 11/17/2024 9:00 AM EDT Routine Office Visit Maternal Medicine [address] [place] [address] Anatomy/OB Maternal Medicine Comment on above: Anatomy/OB Start: 09-08-2024 End: 09-08-2024 Patient encounter procedure 09/08/2024 10:20 AM EDT Routine Office Visit OB/Gynecology [address] [place] [address] Dell Alonso MD [address] [place] [address] 1st OB - LMP 06/30/2024 OB/Gynecology Comment on above: 1st OB - LMP 06/30/19 Start: 08-25-2024 End: 08-25-2024 Patient encounter procedure 08/25/2024 8:30 AM EDT Routine Office Visit OB/Gynecology [address] [place] [address] Dating OB/Gynecology Comment on above: Dating Start: 08-11-2024 End: 11-10-2024 ANEMIA REFLEX PANEL [facility] Work Phone: Comment on above: Expected: 08/11/2024 , Expires: 11/10/2024 Start: 08-11-2024 End: 11-10-2024 Hepatitis C virus Ab [Presence] in Serum [facility] Comment on above: Expected: 08/11/2024 , Expires: 11/10/2024 Start: 08-11-2024 End: 08-11-2025 OBSTETRIC ULTRASOUND WHI OBSTETRIC ULTRASOUND WHI Anc Imaging Routine with uncertain dates, antepartum Expected: 08/11/2024, Expires: 08/11/2025 [facility] Comment on above: Expected: 08/11/2024 , Expires: 08/11/2025 Start: 08-11-2024 End: 11-10-2024 RUBELLA IGG ANTIBODY [facility] Comment on above: Expected: 08/11/2024 , Expires: 11/10/2024 Start: 06-29-2024 End: 06-29-2024 Patient encounter procedure 06/29/2024 9:10 AM EST Office Visit OB/Gynecology [address] [place] [address] Joseph Ceballos MD [address] [place] [address] Annual OB/Gynecology Comment on above: Annual Start: 06-08-2024 GC (Gonorrhea) Veronica garciag (18-24) GC (Gonorrhea) Screening (18-24) [facility] Start: 06-08-2024 Screening for Chlamy jennifer trachomatis Chlamydia Screening () [facility] Start: 05-11-2024 End: 05-11-2024 Patient encounter procedure 05/11/2024 10:30 AM EST Office Visit OB/Gynecology [address] [place] [address] Joseph Ceballos MD [address] [place] [address] IUD REMOVAL OB/Gynecology Comment on above: IUD REMOVAL Start: 02-24-2024 End: 02-24-2024 Patient encounter procedure 02/24/2024 8:00 AM EDT Office Visit OB/Gynecology [address] [place] [address] Joseph Ceballos MD [address] [place] [address] IUD Removal OB/Gynecology Comment on above: IUD Removal Start: 01-31-2024 Covid-19 Vaccine ( season) Covid-19 Vaccine ( season) [facility] Start: 01-31-2024 Influenza vaccination [facility] Start: 11-25-2023 End: 02-24-2024 Thyrotropin [Units/volume] in Serum or Plasma [facility] Work Phone: Comment on above: Expected: 11/25/2023 , Expires: 02/24/2024 Start: 01-30-2023 Covid-19 Vaccine ( season) Covid-19 Vaccine () [facility] Start: 01-30-2023 Influenza vaccination Influenza Vacc ine (#1) [facility] Start: 2022 Pap Testing Pap Testing [facility] Start: 06-01-2022 Depression Assessment Depression Ass essment [facility] Start: 2020 Urine microalbumin profile DTaP,Tdap,Td Vaccine (1 - Tdap) [facility] Start: 01-31-2020 Influenza vaccination Flu vaccine (# 1) [place], [place] Start: 08-21-2019 Chlamydia Screening (18-24) Chlamydia Screening (18-24) [facility] Start: 08-21-2019 GC (Gonorrhea) Scree james (18-24) GC (Gonorrhea) Screening (18-24) [facility] Start: 08-21-2019 Hepatitis C Screening Hepatitis C [facility] Start: 08-21-2019 Hepatitis C screening Hepatitis C [facility] Start: 08-21-2019 HIV Screening HIV Screening [facility] Start: 2017 Meningococcal B Vacc ine (1 of 2 - Standard) Meningococcal B Vaccine (1 of 2 - Standard) [facility] Start: 2017 Meningococcal B Vacc ine: Consider Based On Risk (1 of 2 - Patient Seeks Protection) Meningococcal B Vaccine: Consider Based On Risk (1 of 2 - Patient Seeks Protection) [facility] Start: 2017 Screening for Chlamy jennifer trachomatis Chlamydia screen [place], [place] Start: 2016 [facility] screening [facility] [place] [place] Start: 08-21-2015 Peds To Adult Transi tion Annual Assessment Peds To Adult Transition Annual Assessment [facility] Start: 2013 Peds To Adult Transi tion Initial Discussion Peds To Adult Transition Initial Discussion [facility] Start: 2010 HPV Vaccine (1 - 2-d ose series) HPV Vaccine (1 - 2-dose series) [facility] Start: 05-23-2002 Hepatitis B vaccine (3 of 3 - 3-dose primary series) Hepatitis B vaccine (3 of 3 - 3-dose primary series) [place], [place] Start: 02-20-2002 Covid-19 Vaccine (#1) Covid-19 Vacci ne (#1) [facility] Start: 03-22-2002 Hepatitis B Vaccine (1 of 3 - 3-dose series) Hepatitis B Vaccine (1 of 3 - 3-dose series) [facility] Start: 2001 Hepatitis C screening Hepatitis C vt brianne [facility] [place] Bacteria identified in Urine by Culture BACTERIAL CULTURE, URINE Microbiology Routine with uncertain dates, antepartum 08/11/2024 9:34 AM EDT [facility] Chlamydia trachomatis+Neisseria gonorrhoeae DNA [Presence] in Unspecified specimen by SANTY with probe detection GONORRHEA/CHLAMYDIA NAAT Lab Routine with uncertain dates, antepartum 08/11/2024 9:34 AM EDT [facility] End: 09-09-2024 Choriogonadotropin.beta subunit [Units/volume] in Serum or Plasma HCG QUANTITATIVE Lab Routine with uncertain dates, antepartum 2x per week for 8 Occurrences starting 08/11/2024 until 09/09/2024, 1 completed [facility] Comment on above: 2x per week for 8 Oc currences starting 08/11/2024 until 09/09/2024, 1 completed Removal intrauterine device iud REMOVE INTRAUTERINE DEVICE Procedures Routine Encounter for IUD removal Ordered: 01/18/2024 [facility] Work Phone: Comment on above: Ordered: 01/18/2024 Removal intrauterine device iud REMOVE INTRAUTERINE DEVICE Procedures Routine Encounter for IUD removal Ordered: 05/11/2024 [facility] Work Phone: Comment on above: Ordered: 05/11/2024 TRICHOMONAS VAGINALI S NAAT TRICHOMONAS VAGINALIS NAAT Lab Routine with uncertain dates, antepartum 08/11/2024 9:34 AM EDT [facility] Immunizations Immunization Date Immunization Notes Care Provider Duc patel 06-04-2020 tetanus toxoid, reduced diphtheria toxoid, and acellular pertussis vaccine, adsorbed [facility] [place] 03-07-2019 influenza virus vaccine, unspecified formulation Kiki Yates APRN.CNP Work Phone: [facility] NEGATED: Highlighted row has not occurred!07-23-2020 influenza, injectable, quadrivalent, preservative free Kiki Yates MEDICAL UNIT SECRETARY.EVENT MARKETING REPRESENTATIVE Work Phone: [facility] Comment on above: Deferred: Patient Re fused - Not in patient's med bin at time of discharge & patient did not want to wait for it to come from pharmacy Payers Date Payer Category Payer Self-pay 2024 Blue Cross Blue Shield BLUE ACCE SS PPO Member Subscriber Plan / Payer (Effective 2024-Present) Name: ALEJANDRA KIRAN Relation to Subscriber: Spouse Name: Vadim Kiran Date of : 2000 (Home) Address: [address] [place] [address] Payer ID: [id number] (NAIC) Type: PPO Address: [facility] [id number] [place] [id number] 2024 Unknown [id number] 2023 Unknown [id number] 2021 Unknown [id number] .[id number] 2020 Unknown HEALTH PLAN OF [facility] THE HEALTH PLAN [facility] [id number] 2020-Present [phone] [address] [place] [address] [id number] .7.3.022806.315 2001 Unknown [id number] 2.16.840.1.571156.3.579.2 .479 2001 Unknown [id number] 2.16.840.1.476111.3.579.2 .479 2001 Unknown [id number] 2.16.840.1.728031.3.579.2 .479 2001 Unknown [id number] 2.16.840.1.723445.3.579.2 .479 2001 Unknown [id number] 2.840.1.272427.3.579.2 .479 2001 Unknown [id number] 2.840.1.125976.3.579.2 .479 2001 Unknown [id number] 2.840.1.780660.3.579.2 .479 2001 Unknown [id number] 2.840.1.151158.3.579.2 .479 Unknown [id number] .840.1.941036.3.579.2 .462 Unknown [id number] .840.1.263624.3.579.2 .462 Unknown [id number] 2.840.1.706453.3.579.2 .462 Unknown [id number] 2.840.1.934509.3.579.2 .462 Unknown [id number] .840.1.525302.3.579.2 .462 Unknown [id number] .840.1.552373.3.579.2 .462 Unknown [id number] .840.1.273770.3.579.2 .462 Unknown [id number] 2.840.1.942578.3.579.2 .462 Unknown [id number] 840.1.951674.3.579.2 .462 Unknown [id number] 2.840.1.045580.3.579.2 .462 Unknown [id number] 2.840.1.569488.3.579.2 .462 Unknown [id number] 2.840.1.388570.3.579.2 .462 Unknown [id number] 2.840.1.226781.3.579.2 .462 Unknown [id number] 2.840.1.984113.3.579.2 .462 Unknown [id number] 2.16.840.1.891509.3.579.2 .462 Unknown [id number] 2.16.840.1.881743.3.579.2 .462 Unknown [id number] 2.16.840.1.862653.3.579.2 .462 Unknown [id number] 2.16.840.1.197595.3.579.2 .462 Unknown [id number] 2.16.840.1.115224.3.579.2 .462 Unknown [id number] 2.16.840.1.554514.3.579.2 .462 Unknown [id number] 2.16.840.1.933389.3.579.2 .462 Unknown [id number] 2.16.840.1.618698.3.579.2 .462 Unknown [id number] 2.16.840.1.046072.3.579.2 .462 Unknown [id number] 2.16.840.1.477404.3.579.2 .462 Unknown [id number] 2.16.840.1.493536.3.579.2 .462 Unknown [id number] 2.16.840.1.102587.3.579.2 .462 Unknown [id number] 2.16.840.1.537910.3.579.2 .462 Unknown [id number] 2.16.840.1.577642.3.579.2 .462 Social History Date Type Detail Facility Start: 06-04-2020 Tobacco smoking status NHIS Never smoker [place], [place] Start: 06-04-2020 End: 08-11-2024 Tobacco use and exposure Never used [place], [place] Start: 06-04-2020 Alcohol intake Lifetime non-d tone (finding) [place] Start: 06-04-2020 History SDOH Alcohol Frequency 1 [place], [place] Start: 2001 Sex Assigned At Not on file M [facility], [place] Exposure to SARS-CoV-2 (event) Not sure [place] Start: 02-26-2023 End: 08-11-2024 Tobacco smoking status NHIS Ex-smoker [facility] History of tobacco use Current smoker [facility] History of tobacco use Cigarette Smoker [facility] Start: 02-26-2023 End: 05-11-2024 Alcohol intake Current drinker of alcohol (finding) [facility] Start: 02-26-2023 End: 06-08-2023 History of Social function [facility] Start: 02-26-2023 End: 06-08-2023 Tobacco use panel [facility] National Score (1-100), lower number is lower risk 48 [facility] Start: 06-08-2023 Education 13 [facility] Start: 06-29-2024 End: 08-12-2024 Alcoholic beverage intake Ex-drinker (finding) [facility] Start: 07-14-2024 [facility] NEGATED: Highlighted rowStart: NINF History of tobacco use Passive smoker [facility] Functional Status Date Assessment Result Facility 07-23-2020 Are you deaf, or do you have serious difficulty hearing No 07/23/2020 4:53 PM Saira Hi RN No [facility] 07-23-2020 Are you blind, or do you have serious difficulty seeing, even when wearing glasses No 07/23/2020 4:53 PM Saira Hi RN No [facility] 07-23-2020 Do you have serious difficulty walking or climbing stairs No 07/23/2020 4:53 PM Saira Hi RN No [facility] 07-23-2020 Do you have difficul ty dressing or bathing No 07/23/2020 4:53 PM Saira Hi RN No [facility] 07-23-2020 Because of a physica l, mental, or emotional condition, do you have difficulty doing errands alone such as visiting a physician's office or shopping No 07/23/2020 4:53 PM Saira Hi RN No [facility] Mental Status Date Assessment Result Facility 07-23-2020 Because of a physica l, mental, or emotional condition, do you have serious difficulty concentrating, remembering, or making decisions No 07/23/2020 4:53 PM EST Saira Lynn, ULISES No [facility] Clinical Notes 02-26-2023 to 02-10-2025 Telephone Encounter - Dasha Welsh RN - 08/12/2024 10:39 AM EDTTelephone Encounter - Dasha Welsh RN - 08/12/2024 10:39 AM EDTPatient Chacho Pugh MA - 08/11/2024 8:28 AM EDT Note Date & Type Note Facility 02-10-2025 Note [facility] MFM CONSULTATION Referring Provider Navdeep Jeffrey, RENUKA [address] [facility] [address] [place] [address] SUBJECTIVE Alejandra Kiran is a 24 y.o. [...] History: Diagnosis Date Anorexia sees therapist in [facility], was tx in hosptial time 2 Anxiety Bipolar disorder Diagnosed in 2020, hx of SI with hospitalization, [facility] [place] Depression Gestational diabetes mellitus (GDM) TOS (thoracic [...] detailed ultrasound report. Laboratory Studies reviewed in EPIC. Medical Discussion: Ultrasound results reviewed. The limitation [...] reduce the ris (more content not included)... [facility] 09-22-2024 Note Consultation has jose christensen requested [...] counseling and care are largely handled at [place] [address] in [place] but she also sees a separate counselor, Kimberly LouisAvery) for therapy s/p 2 incidences of hospitalization for anorexia and for episode of suicidal ideation. She states she is stable and under control. Alejandra had a cervical rib removed for thoracic outlet syndrome. She is a twin from an IVF . She desires NIPT/Carrier screening. Imagin. Nava intrauterine with cardiac activity present at 10w 6d with an HERBIE of 04/14/2025. 2. [place] rump length measurement are consistent with supplied dating. 3. Anatomic detail is extremely limited at this early gestational age. No gross abnormalities were noted on this examination. 4. Normal uterus and adnexa. 5. Absence of free fluid in the pelvis. Please refer to the ultrasound report for full details. [facility] Counseling Summary I reviewed the information regarding [...] topics are listed above. Martine Llanes MD [facility] Physician, Maternal- Medicine [facility] 08-12-2024 Telephone encounter Note Patient transferred care for remainder of . She was seen in our office for 1 visit. Please bill all visits. Dasha Welsh RN [facility] 08-12-2024 Miscellaneous Notes Patient transferred care for remainder of . She was seen in our office for 1 visit. Please bill all visits. Dasha Welsh RN documented in this encounter [facility] 08-11-2024 Instructions Chacho Redman MA - 08/11/2024 8:31 AM EDT Please select the following link to access the [facility] Your Guide to a Healthy . [email or web address] documented in this encounter [facility] 08-11-2024 Note HNO ID: [id number] Author: CHACHO REDMAN MA Service: ? Author Type: Bank Runner Type: Progress Notes Filed: 08/11/2024 15:56 Note Text: OB point of care ultrasound was performed. See imaging tab for details. Chacho Redman MA [facility] 08-11-2024 History of Presen t illness Narrative OB point of care ultrasound was performed. See imaging tab for details. Chacho Redman MA *Patient is a twin but mother had IVF *Pt has a history of depression/anxiety/Bipoar 2 diagnosed in [address] Frannie Hudson at [place] [address] in [place]. She states that she has had 2 inpatient mental hospitalizations for this the last 1 being in 2020. She states she last had suicidal thoughts in 2020. Discussed increased risks of depression during and and importance of reporting the development or worsening of symptoms should they occur. *She has a history of anorexia and sees a therapist at [facility] in [facility].-She states she has had inpatient treatment [...] the following (please check all that apply)? 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 As applicable, any other physician, advance practice provider, medical student, or other health professional student that will be observing or involved in the sensitive examination for educational or training purposes was discussed with the Patient or Authorized Centerless Grinding Machine Adjuster. The Patient or Authorized Centerless Grinding Machine Adjuster has agreed to proceed with the sensitive [...] prhanane Carranza APRN.CNM documented in this encounter [facility] 08-09-2024 Note HNO ID: [id number] Author: CHRISTIANNE CARRANZA APRN.CNM Service: ? Author Type: Product Support Engineer Type: Progress Notes Filed: 08/11/2024 15:56 Note Text: *Patient is a twin but mother had IVF *Pt has a history of depression/anxiety/Bipoar 2 diagnosed in [address] Frannie Hudson at [place] [address] in [place]. She states that she has had 2 inpatient mental hospitalizations for this the last 1 being in 2020. She states she last had suicidal thoughts in 2020. Discussed increased risks of depression during and and importance of reporting the development or worsening of symptoms should they occur. *She has a history of anorexia and sees a therapist at [facility] in [facility].-She states she has had inpatient treatment [...] the following (please check all that apply)? 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 [facility] 08-09-2024 Telephone encounter Note Patient called back. Can call her around 10:30 or 11:00 today. Thank you. [facility] 08-09-2024 Miscellaneous Notes Patient called back. Can call her around 10:30 or 11:00 today. Thank you. Left message for patient to return phone call to complete nurse intake questions for her upcoming appointment. Patient has an appointment with Christianne Carranza for NOB appointment. I am here today if she calls back or transfer to [facility] documented in this encounter [facility] 08-09-2024 Telephone encounter Note Left message for patient to return phone call to complete nurse intake questions for her upcoming appointment. Patient has an appointment with Christianne Carranza for NOB appointment. I am here today if she calls back or transfer to [facility] 06-29-2024 Note HNO ID: [id number] Author: JOSEPH CEBALLOS MD Service: ? Author Type: Physician Type: Progress Notes Filed: 07/01/2024 10:13 Note Text: Polymerization Helper offered: Patient accepts, visit chaperoned by Erica [...] L0 SAB0 IAB0 Ectopic0 Multiple0 Live Births0 Bankruptcy Manager History LMP: 06/01/2024, Having periods Age at Menarche: 13 Age at First : Age at Menopause: Bankruptcy Manager History Comments: Sexual Activity: Yes; Male Contraception: [...] discussed with the Patient or Patient's Authorized Centerless Grinding Machine Adjuster. As applicable, any other physician, advance practice provider, medical student, or other health professional student that will be observing or involved in the sensitive examination for educational or training purposes was discussed with the Patient or Authorized Centerless Grinding Machine Adjuster. The Patient or Authorized Centerless Grinding Machine Adjuster has agreed to proceed with the sensitive [...] external genitalia normal, normal Bartholin's glands, urethra, Winn's glands, no vulvar lesions, no cervical lesions, [...] or sooner as needed Joseph Ceballos MD [facility] 06-29-2024 History of Presen t illness Narrative Polymerization Helper offered: Patient accepts, visit chaperoned by Erica [...] L0 SAB0 IAB0 Ectopic0 Multiple0 Live Births0 Bankruptcy Manager History LMP: 06/01/2024, Having periods Age at Menarche: 13 Age at First : Age at Menopause: Bankruptcy Manager History Comments: Sexual Activity: Yes; Male Contraception: [...] discussed with the Patient or Patient's Authorized Centerless Grinding Machine Adjuster. As applicable, any other physician, advance practice provider, medical student, or other health professional student that will be observing or involved in the sensitive examination for educational or training purposes was discussed with the Patient or Authorized Centerless Grinding Machine Adjuster. The Patient or Authorized Centerless Grinding Machine Adjuster has agreed to proceed with the sensitive [...] external genitalia normal, normal Bartholin's glands, urethra, Winn's glands, no vulvar lesions, no cervical lesions, [...] Joseph Ceballos MD documented in this encounter [facility] 05-11-2024 Note HNO ID: [id number] Author: JOSEPH CEBALLOS MD Service: ? Author Type: Physician Type: Progress Notes Filed: 05/11/2024 10:51 Note Text: Polymerization Helper offered: Patient accepts, visit chaperoned by Erica [...] not within 12 months. Joseph Ceballos MD [facility] 05-11-2024 History of Presen t illness Narrative Polymerization Helper offered: Patient accepts, visit chaperoned by Erica Beverly. IFRAHJanessa Roberts presents for removal of IUD due [...] Joseph Ceballos MD documented in this encounter [facility] 05-05-2024 Telephone encounter Note Patient called. She is not having any pain. Her appointment on 05/18 is to remove the IUD. Offered a Thursday appointment with AT. Patient declined. Scheduled on 05/11. Patient to call if she chooses to come in for a sooner appointment or with another provider. Flory Manning RN [facility] 05-05-2024 Miscellaneous Notes Patient called. She is not having any pain. Her appointment on 05/18 is to remove the IUD. Offered a Thursday appointment with AT. Patient declined. Scheduled on 05/11. Patient to call if she chooses to come in for a sooner appointment or with another provider. Flory Manning RN Noe placed 02/26/2023. Please see Pt's Cyber Giftshart message. Julia Chapa RN documented in this encounter [facility] 05-05-2024 Telephone encounter Note Noe placed 02/26/2023. Please see Pt's mychart message. Julia Chapa RN [facility] 01-18-2024 Telephone encounter Note Patient called and appointment scheduled. Hellen Campoverde RN [facility] 01-18-2024 Miscellaneous Notes Patient called and appointment scheduled. Hellen Campoverde RN filed Please file order in AT absence. Will call Pt to get scheduled once order is filed. Julia Chapa RN Patient is calling requesting to have IUD Liletta removed and would like this with Ayo Ceballos. Please advise patient once order is placed documented in this encounter [facility] 01-18-2024 Telephone encounter Note filed [facility] Work Phone: 01-18-2024 Telephone encounter Note Please file order in AT absence. Will call Pt to get scheduled once order is filed. Julia Chapa RN [facility] 01-18-2024 Telephone encounter Note Patient is calling requesting to have IUD Liletta removed and would like this with Ayo Ceballos. Please advise patient once order is placed [facility] 11-25-2023 Note HNO ID: [id number] Author: ERICA BEVERLY MA Service: ? Author Type: Security Supervisor Type: Progress Notes Filed: 11/25/2023 09:37 Note Text: . [facility] 11-25-2023 History of Presen t illness Narrative . Alejandra Kiran is a 23 year old female who presents for problem visit wishing to discuss fertility related to her progestin IUD, Liletta and parental hx of IVF. Reports irregular menses related to anorexia [id number]UD [address] 2020. Menarche ~ 13 yo and regular until weight loss to 106. Now 160, 5'8. Monthly/cyclic discharge on underwear.. HPI: as above and planning in ~ 12 mo, always feels cold OB History T0 L0 SAB0 IAB0 Ectopic0 Multiple0 Live Births0 Bankruptcy Manager History LMP: 01/15/2023 (Exact Date), IUD Age at Menarche: Age at First : Age at Menopause: Bankruptcy Manager History Comments: Sexual Activity: Yes; Male Contraception: [...] external genitalia normal, normal Bartholin's glands, urethra, Winn's glands, no vulvar lesions, no cervical lesions, good vaginal support, physiologic discharge present, normal appearing perineal body and perianal region BIMANUAL: uterus normal size, shape and consistency, no adnexal masses, and non-tender NEURO: alert and oriented x3,exam grossly non-focal EXTREMITIES: normal ASSESSMENT AND PLAN: Unremarkable occupational therapist per diem exam noting 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 TSH Prepregnacy discussion, start PNVs Lengthy conversation >45 min Joseph Ceballos MD documented in this encounter [facility] 11-25-2023 Note HNO ID: [id number] Author: JOSEPH CEBALLOS MD Service: ? Author Type: Physician Type: Progress Notes Filed: 11/25/2023 09:37 Note Text: Alejandra Kiran is a 23 year old female who presents for problem visit wishing to discuss fertility related to her progestin IUD, Liletta and parental hx of IVF. Reports irregular menses related to anorexia [id number]UD [address] 2020. Menarche ~ 13 yo and regular until weight loss to 106. Now 160, 5'8. Monthly/cyclic discharge on underwear.. HPI: as above and planning in ~ 12 mo, always feels cold OB History T0 L0 SAB0 IAB0 Ectopic0 Multiple0 Live Births0 Bankruptcy Manager History LMP: 01/15/2023 (Exact Date), IUD Age at Menarche: Age at First : Age at Menopause: Bankruptcy Manager History Comments: Sexual Activity: Yes; Male Contraception: [...] external genitalia normal, normal Bartholin's glands, urethra, Winn's glands, no vulvar lesions, no cervical lesions, good vaginal support, physiologic discharge present, normal appearing perineal body and perianal region BIMANUAL: uterus normal size, shape and consistency, no adnexal masses, and non-tender NEURO: alert and oriented x3,exam grossly non-focal EXTREMITIES: normal ASSESSMENT AND PLAN: Unremarkable occupational therapist per diem exam noting 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 TSH Prepregnacy discussion, start PNVs Lengthy conversation >45 min Joseph Ceballos MD [facility] 02-26-2023 History of Presen t illness [...] OB History No obstetric history on file. Bankruptcy Manager History LMP: 01/15/2023 (Exact Date), IUD Age at Menarche: Age at First : Age at Menopause: Bankruptcy Manager History Comments: Sexual Activity: Yes; Male Contraception: [...] 3 - Low documented in this encounter [facility] Evaluation note Diagnosis Secondary amenorrhea- Primary Absence of menstruation [facility] Diagnosis Irregular menses- Primary Irregular menstrual cycle Intolerance to cold Other general symptoms [facility] Diagnosis Encounter for IUD removal- Primary Encounter for removal of intrauterine contraceptive device [facility] Diagnosis Encounter for IUD removal- Primary Encounter for removal of intrauterine contraceptive device [facility]* Diagnosis Encounter for gynecological examination (general) (routine) without abnormal findings- Primary Attempting to conceive documented in this [facility]* Diagnosis with uncertain dates, antepartum- Primary state, incidental 6 weeks gestation of state, incidental Threatened miscarriage Threatened , unspecified as to episode of care Bipolar 2 disorder (HCC) Other bipolar disorders Anorexia nervosa Anxiety Anxiety state, unspecified Depression, unspecified depression type Cholinergic urticaria Encounter for supervision of high risk in first trimester, antepartum documented in this encounter [facility] for referral (narrative)* Outpatient Procedure (Routine) - Pending Review Specialty Diagnoses / Procedures Referred By Jose Roberto rowley Referred To Contact [facility] Diagnoses Encounter for IUD removal Procedures REMOVE INTRAUTERINE DEVICE REMOVE INTRAUTERINE DEVICE Dell Alonso MD [address] [place] [address] [facility] [address] [place] [address] Referral ID Status Reason Start Date Expiration Date Visits Requested Visits Authorized [id number] Pending Review Auto-Generat ed Referral 01/18/2024 01/17/2025 1 1 [facility] for referral (narrative)* Outpatient Procedure (Routine) - New Request Specialty Diagnoses / Procedures Referred By Jose Roberto rowley Referred To Contact [facility] Diagnoses Encounter for IUD removal Procedures REMOVE INTRAUTERINE DEVICE REMOVE INTRAUTERINE DEVICE Joseph Ceballos MD [address] [facility] [place] [address] [facility] [place] [address] Referral ID Status Reason Start Date Expiration Date Visits Requested Visits Authorized [id number] New Request Auto-Generat ed Referral 05/11/2025 1 1 [facility] Summary Purpose Family History No Family History Records FoundNo Family History Records FoundNo Family History Records FoundNo Family History Records FoundNo Family History Records Found Advance Directives No Advanced Directives Records FoundLatest Code Status on File Code Status Date Activated Date Inactivated Comments Full Code 06/05/2020 5:11 PM Additional Source Comments INFORMATION SOURCE (unrecogn ized section and content) DATE CREATED AUTHOR 03/19/2020 [facility] DATE CREATED AUTHOR AUTHOR'S ORGANIZ ATION 06/12/2020 [facility] DATE CREATED AUTHOR AUTHOR'S ORGANIZ ATION 08/25/2024 [facility] DATE CREATED AUTHOR AUTHOR'S ORGANIZ ATION 02/12/2025 [facility] DATE CREATED AUTHOR AUTHOR'S ORGANIZ ATION 02/18/[address] [facility] Source Comments (unrecognize d section and content) In the event this informatio n is protected by the Federal Confidentiality of Alcohol and Drug Abuse Patient Records regulations: The Federal rules restrict any use of the information to criminally investigate or prosecute any alcohol or drug abuse patient.[facility] the event this information is protected by the Federal Confidentiality of Alcohol and Drug Abuse Patient Records regulations: The Federal rules restrict any use of the information to criminally investigate or prosecute any alcohol or drug abuse patient.[facility] the event this information is protected by the Federal Confidentiality of Alcohol and Drug Abuse Patient Records regulations: The Federal rules restrict any use of the information to criminally investigate or prosecute any alcohol or drug abuse patient.[facility] the event this information is protected by the Federal Confidentiality of Alcohol and Drug Abuse Patient Records regulations: The Federal rules restrict any use of the information to criminally investigate or prosecute any alcohol or drug abuse patient.[facility] the event this information is protected by the Federal Confidentiality of Alcohol and Drug Abuse Patient Records regulations: The Federal rules restrict any use of the information to criminally investigate or prosecute any alcohol or drug abuse patient.[facility] the event this information is protected by the Federal Confidentiality of Alcohol and Drug Abuse Patient Records regulations: The Federal rules restrict any use of the information to criminally investigate or prosecute any alcohol or drug abuse patient.[facility] the event this information is protected by the Federal Confidentiality of Alcohol and Drug Abuse Patient Records regulations: The Federal rules restrict any use of the information to criminally investigate or prosecute any alcohol or drug abuse patient.[facility] the event this information is protected by the Federal Confidentiality of Alcohol and Drug Abuse Patient Records regulations: The Federal rules restrict any use of the information to criminally investigate or prosecute any alcohol or drug abuse patient.[facility] the event this information is protected by the Federal Confidentiality of Alcohol and Drug Abuse Patient Records regulations: The Federal rules restrict any use of the information to criminally investigate or prosecute any alcohol or drug abuse patient.[facility] the event this information is protected by the Federal Confidentiality of Alcohol and Drug Abuse Patient Records regulations: The Federal rules restrict any use of the information to criminally investigate or prosecute any alcohol or drug abuse patient.[facility] the event this information is protected by the Federal Confidentiality of Alcohol and Drug Abuse Patient Records regulations: The Federal rules restrict any use of the information to criminally investigate or prosecute any alcohol or drug abuse patient.[facility] the event this information is protected by the Federal Confidentiality of Alcohol and Drug Abuse Patient Records regulations: The Federal rules restrict any use of the information to criminally investigate or prosecute any alcohol or drug abuse patient.[facility] Reason for Visit (unrecogniz ed section and content) Reason Comments Establish Care Having sym ptoms- mood swings- missed menses- heartburn- cramps- bloating Reason Comments Discussion Reason Comments Orders Reason Onset Date Comments IUD Removal 05/11/2024 Specialty Diagnoses / Procedures Referred By Jose Roberto rowley Referred To Contact [facility] Diagnoses Encounter for IUD removal Encounter for insertion of intrauterine contraceptive device Procedures REMOVE INTRAUTERINE DEVICE REMOVE INTRAUTERINE DEVICE LEVONORGESTREL IU 52MG 3 YR INSERT INTRAUTERINE DEVICE Dell Alonso MD [address] [place] [address] [facility] [address] [place] [address] Referral ID Status Reason Start Date Expiration Date Visits Requested Visits Authorized [id number] Authorized Auto-Generat ed Referral 01/19/2024 05/31/2024 2 2 Reason Comments Well Woman Reason Comments Initial OB Visit Reason Comments Transferred Care Reason Comments Appointment Care Teams (unrecognized sec tion and content) Quality Assurance Calibrator Relationship Specialty Start Date End Date Bertha Wood [address] [facility] [address] [place] [address] PCP - General Family Medicine 06/28/20 Marie Carrillo DO Orthopedics 01/29/16 Quality Assurance Calibrator Relationship Specialty Start Date End Date Bertha Wood [address] [place] [address] PCP - General Family Medicine 06/28/20 Marie Carrillo DO Orthopedics 01/29/16 Quality Assurance Calibrator Relationship Specialty Start Date End Date Bertha Wood [address] [place] [address] PCP - General Family Medicine 06/28/20 Marie Carrillo DO Orthopedics 01/29/16 Quality Assurance Calibrator Relationship Specialty Start Date End Date Bertha Wood [address] [place] [address] PCP - General Family Medicine 06/28/20 Marie Carrillo DO Orthopedics 01/29/16 Quality Assurance Calibrator Relationship Specialty Start Date End Date Bertha Wood [address] [place] [address] PCP - General Family Medicine 06/28/20 Marie Carrillo DO Orthopedics 01/29/16 Quality Assurance Calibrator Relationship Specialty Start Date End Date Bertha Wood [address] [place] [address] PCP - General Family Medicine 06/28/20 Marie Carrillo DO Orthopedics 01/29/16 Quality Assurance Calibrator Relationship Specialty Start Date End Date Bertha Wood [address] [place] [address] PCP - General Family Medicine 06/28/20 Marie Carrillo DO Orthopedics 01/29/16 Quality Assurance Calibrator Relationship Specialty Start Date End Date Bertha Wood [address] [place] [address] PCP - General Family Medicine 06/28/20 Marie Carrillo DO Orthopedics 01/29/16 Quality Assurance Calibrator Relationship Specialty Start Date End Date Bertha Wood [address] [place] [address] PCP - General Family Medicine 06/28/20 Marie Carrillo DO Orthopedics 01/29/16 Quality Assurance Calibrator Relationship Specialty Start Date End Date Bertha Wood [address] [place] [address] PCP - General Family Medicine 06/28/20 Marie [...] BE BASED ON THE PRIMARY CLINICAL RECORDS. [facility]. provides no warranty or guarantee of the accuracy or completeness of information in this document.
== END | disposition home or self-care (01) ==
PROVIDERS: PCP Family Medicine; Visit Provider Obstetrics & Gynecology
DX: O12.00 Gestational edema, unspecified trimester (principal); O24.419 Gestational diabetes mellitus in pregnancy, unspecified control; O21.9 Vomiting of pregnancy, unspecified; Z3A.00 Weeks of gestation of pregnancy not specified
CPT/HCPCS: 36415; 80053; 82570; 83615; 84156; 84550; 85025

== ENCOUNTER 2025-02-25 16:40 | Outpatient (CLI) | payer BC, SELFPAY ==
--- OUTSIDE RECORDS SUMMARY | 2025-02-10 07:15 | XMS RPT_ITS ---
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 when to call office SBIRT Arie Kiran was given the 4P's screening tool. Arie answered No to all the questions, the [...] US and TIFFANY or sooner prn. Christianne Ríos APRN.AUSTIN DIAZ Observed: 08/09/2024 12:00 AM Status: COMPLETED Source: [facility] Telephone (OBNext New NetworksWM) ARIE KIRAN ([id number]) 2 F Date Time Provider Department 08/09/24 CHRISTIANNE RÍOS During your visit today, we recorded the following information about you: Miracle Munoz RN 08/09/2024 9:51 AM Signed Left message for patient to return phone call to complete nurse intake questions for her upcoming appointment. Patient has an appointment with Christianne Ríos for NOB appointment. I am here today if she calls back or transfer to Flory Quintanilla, ULISES 08/09/2024 10:02 AM Signed Patient called back. [...] recurrent epis*06/11/2020 Diagnosed: 06/08/2023 Encounter Status:Closed by MIRACLE MUNOZ on 08/24/24 ANDREW Observed: 06/29/2024 9:10 AM Status: COMPLETED Source: [facility] Office Visit (OBGYWM) ARIE KIRAN ([id number]) 2 F Date Time Provider Department 06/29/24 9:10 AM DELISA CEBALLOS OBRAYSHAWN During your visit today, we recorded the following information about you: Blood pressure Weight Height Last Period 100/64 80.7 kg 1.727 m 06/01/24 Delisa Ceballos MD 07/01/2024 10:13 AM Signed Malted Milk Mixer offered: Patient accepts, visit chaperoned by Erica Beverly MA. Arie is a 23 year old who presents [...] L0 SAB0 IAB0 Ectopic0 Multiple0 Live Births0 Travelift Operator History LMP: 06/01/2024, Having periods Age at Menarche: 13 Age at First : Age at Menopause: Travelift Operator History Comments: Sexual Activity: Yes; Male Contraception: [...] discussed with the Patient or Patient's Authorized Shell Molder. As applicable, any other physician, advance practice provider, medical student, or other health professional student that will be observing or involved in the sensitive examination for educational or training purposes was discussed with the Patient or Authorized Shell Molder. The Patient or Authorized Shell Molder has agreed to proceed with the sensitive [...] external genitalia normal, normal Bartholin's glands, urethra, Enlow's glands, no vulvar lesions, no cervical lesions, [...] up one year or sooner as needed Delisa Ceballos MD Allergies As of Date: 06/29/2024 Noted Allergy Reaction POTATO 06/24/2016 2 - Rash 4 - Hives SEASONAL ALLERGIES 02/18/2018 3 - Cough Comments: Seasonal allergies Date Reviewed: 06/29/2024 Reviewed by: Erica Beverly MA - Fully Assessed Reason for Visit: Well Woman [1463] Primary Visit Diagnosis:Encounter for gynecological examination (general) (routine) without abnormal findings [Z01.419] Other Visit Diagnosis:Attempting to conceive [Z78.9] Order(s):UA DIP,URINE HCG (POC) [0810989] Order #: [id number]. #:[id number] Prescriptions as of 07/01/2024 - cetirizine (ZYRTEC) 10 mg tablet Take [...] by mouth. 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 Follow-up and Disposition History for Encounter Date Provider Department Center 06/29/2024 [id number] CEBALLOS Encounter Status:Closed by DELISA CEBALLOS on 07/01/24 PROGRESS Observed: 06/29/2024 9:02 AM Status: COMPLETED Source: [facility] HNO ID: [id number] Author: DELISA CEBALLOS MD Service: ? Author Type: Physician Type: Progress Notes Filed: 07/01/2024 10:13 Note Text: Malted Milk Mixer offered: Patient accepts, visit chaperoned by Erica Beverly MA. Arie is a 23 year old who presents [...] L0 SAB0 IAB0 Ectopic0 Multiple0 Live Births0 Travelift Operator History LMP: 06/01/2024, Having periods Age at Menarche: 13 Age at First : Age at Menopause: Travelift Operator History Comments: Sexual Activity: Yes; Male Contraception: [...] discussed with the Patient or Patient's Authorized Shell Molder. As applicable, any other physician, advance practice provider, medical student, or other health professional student that will be observing or involved in the sensitive examination for educational or training purposes was discussed with the Patient or Authorized Shell Molder. The Patient or Authorized Shell Molder has agreed to proceed with the sensitive [...] external genitalia normal, normal Bartholin's glands, urethra, Enlow's glands, no vulvar lesions, no cervical lesions, [...] up one year or sooner as needed Delisa Ceballos MD CNOV Observed: 05/11/2024 10:30 AM Status: COMPLETED Source: [facility] Office Visit (OBGYWM) ARIE KIRAN ([id number]) 2 F Date Time Provider Department 05/11/24 10:30 AM DELISA CEBALLOS OBGYWKevyn During your visit today, we recorded the following information about you: Blood pressure Weight 106/74 76.2 kg Delisa Ceballos MD 05/11/2024 10:51 AM Signed Malted Milk Mixer offered: Patient accepts, visit chaperoned by Erica [...] for evaluation if not within 12 months. Delisa Ceballos MD Referring Provider: DELL MEZA [[id number]] Allergies As of Date: 05/11/2024 Noted Allergy Reaction POTATO 06/24/2016 2 - Rash 4 - Hives SEASONAL ALLERGIES 02/18/2018 3 - Cough Comments: Seasonal allergies Date Reviewed: 05/11/2024 Reviewed by: Erica Beverly MA - Fully Assessed Reason for Visit: IUD Removal [1950] Primary Visit Diagnosis:Encounter for IUD removal [Z30.432] Order(s):REMOVE INTRAUTERINE DEVICE [[id number]] Order #: [id number] UA DIP,URINE HCG (POC) [4309975] Order #: [id number]. #:[id number] Prescriptions as of 05/11/2024 - cetirizine (ZYRTEC) [...] for Encounter Date Provider Department Center 05/11/2024 [id number] CEBALLOS [place] Encounter Status:Closed by DELISA CEBALLOS on 05/11/24 PROGRESS Observed: 05/11/2024 10:11 AM Status: COMPLETED Source: [facility] HNO ID: [id number] Author: DELISA CEBALLOS MD Service: ? Author Type: Physician Type: Progress Notes Filed: 05/11/2024 10:51 Note Text: Malted Milk Mixer offered: Patient accepts, visit chaperoned by Erica [...] for evaluation if not within 12 months. Delisa Ceballos MD ALLERGIES DATE TYPE / CODE NAME / CODE REACTION SEVERITY SOURCE 02/18/2018 Environ/17649 4006(SNOMED CT) SEASONAL ALLERGIES Seasonal allergies Low [facility] 02/18/2018 Environ/67969 4006(SNOMED CT) [facility] 06/24/2016 DRUG INGREDI/09813 1003(SNOMED CT) POTATO RASH [facility] ENCOUNTERS ADMIT/DISCHARGE ACCOUNT NUMBER ADMITTING ENCOUNTER CLASS LOC ATION SOURCE 02/10/2025/ 5 [id number] Ambulatory Building:[facility] 02/10/2025/ 5 [id number] Ambulatory Building:[facility] 02/07/2025/ 5 [id number] Ambulatory Building:[facility] 12/20/2024/ 5 [id number] Ambulatory Building:[facility] 12/01/2024/ 5 [id number] Ambulatory Building:[facility] 11/17/2024/ 5 [id number] Ambulatory Building:[facility] 10/03/2024/ 5 [id number] Ambulatory Building:[facility] 09/22/2024/ 5 [id number] Ambulatory Building:[facility] 08/15/2024/ 5 [id number] Ambulatory [facility] HospitalBuild ing:WOL2 [facility] 08/13/2024/ 5 [id number] Ambulatory [facility] HospitalBuild ing:WOLB [facility] 08/11/2024/ 5 [id number] Ambulatory [facility] HospitalBuild ing:WOL2 [facility] 08/11/2024/ 5 [id number] Ambulatory [facility] HospitalBuild ing:WMOB [facility] 06/29/2024/ 5 [id number] Ambulatory [facility] HospitalBuild ing:WMOB [facility] 05/11/2024/ 4 [id number] Ambulatory [facility] HospitalBuild ing:WMOB [facility] PAYERS ENCOUNTER GUARANTOR PAYER SUBSCRIBER SOURCE 02/10/2025 ARIE SHOEMAKER PLANTDOB: [id number] [place], [place] [address]Cwu: ~(330 (HP) Primary Insurance:ANTHEMPo licy Number: [id number] cullen Date: ASA S PLANTDOB: [id number] [place], [place] [address] [place] [address] 02/10/2025 ARIE SHOEMAKER PLANTDOB: [place], [place] [address]Bje: ~(330 (HP) Primary Insurance:ANTHEMPo licy Number: [id number] cullen Date: ASA S PLANTDOB: [id number] [place], [place] [address] [place] [address] 02/07/2025 ARIE SHOEMAKER PLANTDOB: [place], [place] [address]Obz: ~(330 (HP) Primary Insurance:ANTHEMPo licy Number: [id number] cullen Date: ASA S PLANTDOB: [id number] [place], [place] [address] [place] [address] 12/20/2024 ARIE SHOEMAKER PLANTDOB: [place], [place] [address]Znq: ~(330 (HP) Primary Insurance:ANTHEMPo licy Number: [id number] cullen Date: ASA S PLANTDOB: [id number] [place], [place] [address] [place] [address] 12/01/2024 ARIE SHOEMAKER PLANTDOB: [place], [place] [address]Mix: ~(330 (HP) Primary Insurance:ANTHEMPo licy Number: [id number] cullen Date: ASA S PLANTDOB: [id number] [place], [place] [address] [place] [address] 11/17/2024 ARIE SHOEAMKER PLANTDOB: [place], [place] [address]Qny: ~(330 (HP) Primary Insurance:ANTHEMPo licy Number: [id number] cullen Date: MATTIE Moore PLANTDOB: [id number] [place] [address] [facility] 10/03/2024 ARIE SHOEMAKER PLANTDOB: [place], [place] [address]Mmj: ~(330 (HP) Primary Insurance:ANTHEMPo licy Number: [id number] cullen Date: MATTIE S PLANTDOB: [id number] [place] [address] [facility] 09/22/2024 ARIE SHOEMAKER PLANTDOB: [place], [place] [address]Htt: ~(330 (HP) Primary Insurance:ANTHEMPo licy Number: [id number] cullen Date: MATTIE Moore PLANTDOB: [id number] [place] [address] [facility] 08/15/2024 Primary Insurance:BLUE ACCESS PPOPolicy Number: [id number] cullen Date:7811-48-07Adk n Name:Clay PHELPS PLANTDOB: [id number] [place] [address] [facility] 08/13/2024 Primary Insurance:BLUE ACCESS PPOPolicy Number: [id number] cullen Date:0546-32-22Flu n Name:Clay PHELPS PLANTDOB: [id number] [place] [address] [facility] 08/11/2024 Primary Insurance:BLUE ACCESS PPOPolicy Number: [id number] cullen Date:3062-06-31Qnh n Name:Clay PHELPS PLANTDOB: [id number] [place] [address] [facility] 08/11/2024 Primary Insurance:BLUE ACCESS PPOPolicy Number: [id number] cullen Date:8449-82-03Kox n Name:Clay PHELPS PLANTDOB: [id number] [place] [address] [facility] 06/29/2024 Primary Insurance:BLUE ACCESS OPoly Number: [id number] cullen Date:5671-04-33Jts n Name:Clay KIRANDOB: [id number] [place] [address] [facility] 05/11/2024 Primary Insurance:BLUE ACCESS PPOPolicy Number: [id number] cullen Date:3560-36-31Tjw n Name:Clay RIVASOB: [id number] [place] [address] [facility]
[2025-02-25] VITALS (25 sets, daily range): BP systolic 123–134; BP diastolic 67–80; PULSE 86–116; RESP 18; TEMP 37.7; O2SAT 93–98; BMI 34.9
[2025-02-25 17:40] LABS: Mucous, Urine 0 SEEN /hpf (<or=2+)
[2025-02-25 17:42] LABS: Hematocrit 35.7 % (37-47); Hemoglobin 12.6 g/dL (12.0-15.0); Mean Corp Hgb Conc 35.3 g/dL (32-36); Mean Corpuscular Volume 89.5 fL (81-99); Mean Platelet Vol. 11.1 fl (6.2-12.0); Platelet Count 208 K/mm3 (150-450); RBC Distribution Width CV 13.2 % (11.6-14.6); RBC Distribution Width SD 43.3 fl (35.1-43.9); Red Blood Count 3.99 M/mm3 (4.2-5.4); White Blood Count 11.5 K/mm3 (4.4-11.0)
[2025-02-25 17:51] LABS: Color, Urine Yellow (Yellow); Glucose, Dipstick Normal (Normal); Ketone-Dipstick Negative (Negative); Leukocyte Esterase-Dipstick 500 /ul (Negative); Nitrite-Dipstick Negative (Negative); Occult Blood-Urine 25 /ul (Negative); Protein-Dipstick 15 mg/dl (Negative); Specific Gravity, Urine 1.010 (1.002-1.030); Urine Bilirubin Dipstick Negative (Negative)
[2025-02-25 18:02] LABS: ROM Internal Control Test YES-OK TO RESULT pt. (Internal QC); ROM Patient Test Negative (Negative); Record Kit Lot#, ROM+ K3358
[2025-02-25 18:07] LABS: AST(SGOT) 27 U/L (<=31); Alanine Aminotransfer ALT/SGPT 15 U/L (<=34); Estimated Creatinine Clearance 212.39 ml/min (50-250); Squamous Epithelial Cells - UA 10-25 SEEN /hpf (5-10); Uric Acid 6.1 mg/dL (2.6-6.0)
[2025-02-25 18:08] LABS: Creatinine, Urine (random) 37.80 mg/dL (28.00-217.00); Protein, Urine (Random) 8.1 mg/dL (0.0-12.0); Protein:Creat Ratio 214 mg/g CRE (0-200); Red Blood Cells-Urine 5-10 SEEN /hpf (0-5)
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
== END 2025-02-25 18:35 | disposition home or self-care (01) ==
LOC: WPOUT 16:40 → WP 16:40
PROVIDERS: PCP Family Medicine; Visit Provider Obstetrics & Gynecology
DX: O99.891 Other specified diseases and conditions complicating pregnancy (principal); H53.2 Diplopia; O09.93 Supervision of high risk pregnancy, unspecified, third trimester; Z3A.33 33 weeks gestation of pregnancy; Z87.891 Personal history of nicotine dependence
CPT/HCPCS: 36415; 59025; 59050; 81001; 82565; 82570; 84112; 84156; 84450; 84460; 84550; 85027; 87086; 87088; 99221; G0378

== ENCOUNTER 2025-03-01 17:55 | Observation (INO) | payer BC, SELFPAY ==
[2025-03-01] VITALS (22 sets, daily range): BP systolic 106–146; BP diastolic 57–85; PULSE 73–103; RESP 16; TEMP 36.2–36.7; O2SAT 96–97; BMI 34.9
--- NOTE | 2025-03-01 13:39 | MRI_ITS ---
PROCEDURE: BRAIN WITHOUT CONTRAST 03/01/2025 REASON FOR EXAM: DIPLOPIA TECHNIQUE: Procedure Code: MRIBR Modality: MR Procedure: BRAIN WITHOUT CONTRAST Multiplanar and multisequence images were obtained. FINDINGS: Ventricles are normal in size and midline in position. No evidence of acute hemorrhage or infarction. No extra-axial blood or fluid collections. Left maxillary sinus retention cyst. The mastoid air cells are clear. MRI/Brain without Contrast IMPRESSION: No acute intracranial abnormality. Reading Location: [id number]
[2025-03-01 13:43] LABS: Creatinine, Urine (random) 25.90 mg/dL (28.00-217.00); Protein, Urine (Random) 8.4 mg/dL (0.0-12.0); Protein:Creat Ratio 324 mg/g CRE (0-200)
--- NOTE | 2025-03-01 13:50 | US_ITS ---
PROCEDURE: OB LIMITED (NO BIOMETRICS) 03/01/2025 REASON FOR EXAM: TACHYCARDIA TECHNIQUE: Procedure Code: USOBL Modality: US Procedure: OB LIMITED (NO BIOMETRICS) COMPARISON: None FINDINGS Cephalic position. cardiac activity of 137-171 beats per minute. Average heart rate of 148 bpm. Cervix is not well visualized. Maximum vertical pocket of 5.3 cm. DOMINGA 15.8 cm. Placenta is not low lying. It is in posterior position. Placenta grade 3. US/OB Limited (No Biometrics) IMPRESSION: cardiac activity of 137-171 bpm. Average heart rate of 148 bpm. Reading Location: [id number]
[2025-03-01 14:34] LABS: Hematocrit 34.6 % (37-47); Hemoglobin 12.1 g/dL (12.0-15.0); Mean Corp Hgb Conc 35.0 g/dL (32-36); Mean Corpuscular Volume 89.4 fL (81-99); Mean Platelet Vol. 11.1 fl (6.2-12.0); Platelet Count 197 K/mm3 (150-450); RBC Distribution Width CV 13.4 % (11.6-14.6); RBC Distribution Width SD 43.7 fl (35.1-43.9); Red Blood Count 3.87 M/mm3 (4.2-5.4); White Blood Count 10.2 K/mm3 (4.4-11.0)
[2025-03-01 14:34] LABS: ROM Internal Control Test YES-OK TO RESULT pt. (Internal QC); ROM Patient Test Negative (Negative); Record Kit Lot#, ROM+ K3358
[2025-03-01 15:00] LABS: AST(SGOT) 29 U/L (<=31); Alanine Aminotransfer ALT/SGPT 14 U/L (<=34); Estimated Creatinine Clearance 201.09 ml/min (50-250); Uric Acid 6.2 mg/dL (2.6-6.0)
[2025-03-01 15:03] LABS: LDH 164 U/L (84-246)
[2025-03-01] MEDS: LACTATED RINGERS 500 ML 999 ML IV (16:00)
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
[2025-03-01] MEDS: Betamethasone/Betamethasone 30 MG/5 ML Vial 12 MG IM (17:44)
[2025-03-01] MEDS: Insulin NPH Human 100 UNITS/ML PEN 13 UNITS SC (21:06)
[2025-03-01] MEDS: LURASIDONE HCL 60 MG TABLET PO (21:38)
[2025-03-02] VITALS (55 sets, daily range): BP systolic 90–144; BP diastolic 53–83; PULSE 30–109; RESP 16; TEMP 36.1–37.3; O2SAT 81–99
[2025-03-02 05:12] LABS: Hematocrit 34.4 % (37-47); Hemoglobin 11.8 g/dL (12.0-15.0); Immature Granulocytes Count 0.100 X10^3/uL (0.0-0.0); Mean Corp Hgb Conc 34.3 g/dL (32-36); Mean Corpuscular Volume 89.4 fL (81-99); Mean Platelet Vol. 11.4 fl (6.2-12.0); NRBC Flagged by Analyzer 0 % (0-5); Platelet Count 191 K/mm3 (150-450); RBC Distribution Width CV 13.2 % (11.6-14.6); RBC Distribution Width SD 42.5 fl (35.1-43.9); Red Blood Count 3.85 M/mm3 (4.2-5.4); White Blood Count 13.0 K/mm3 (4.4-11.0)
[2025-03-02 05:37] LABS: AST(SGOT) 25 U/L (<=31); Alanine Aminotransfer ALT/SGPT 12 U/L (<=34); Albumin, Serum 3.3 g/dL (3.5-5.0); Alkaline Phosphatase 118 U/L (35-104); Anion Gap 12 (5-15); BUN 7 mg/dL (4-19); BUN/Creat Ratio 14.7 RATIO (10-20); Calcium,Total 9.6 mg/dL (7.6-11.0); Carbon Dioxide 16.7 mmol/L (21.0-32.0); Chloride 104 mmol/L (98-108); Estimated Creatinine Clearance 216.86 ml/min (50-250); Globulin 3.0 g/dL (2.2-4.2); Glucose 137 mg/dL (70-99); Potassium 4.2 mmol/L (3.3-5.1)
[2025-03-02 06:04] LABS: LDH 195 U/L (84-246); Uric Acid 6.3 mg/dL (2.6-6.0)
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
[2025-03-02] MEDS: Insulin NPH Human 100 UNITS/ML PEN 20 UNITS SC (09:10)
--- NOTE | 2025-03-02 09:46 | NURSING ---
updated via her nurse Emily, pt has a headache she rates a 5/10, medicated with Tylenol. BP 138/68. Blood sugar 137 at this time.
[2025-03-02] MEDS: LEVOCETIRIZINE DIHYDROCHLORIDE 5 MG 10 MG PO (14:22)
[2025-03-02 15:51] LABS: Hematocrit 33.5 % (37-47); Hemoglobin 11.9 g/dL (12.0-15.0); Immature Granulocytes Count 0.110 X10^3/uL (0.0-0.0); Mean Corp Hgb Conc 35.5 g/dL (32-36); Mean Corpuscular Volume 88.6 fL (81-99); Mean Platelet Vol. 11.1 fl (6.2-12.0); NRBC Flagged by Analyzer 0.1 % (0-5); Platelet Count 203 K/mm3 (150-450); RBC Distribution Width CV 13.3 % (11.6-14.6); RBC Distribution Width SD 43.1 fl (35.1-43.9); Red Blood Count 3.78 M/mm3 (4.2-5.4); White Blood Count 14.5 K/mm3 (4.4-11.0)
[2025-03-02 16:13] LABS: Anion Gap 13 (5-15); BUN 11 mg/dL (4-19); BUN/Creat Ratio 18.6 RATIO (10-20); Calcium,Total 9.3 mg/dL (7.6-11.0); Carbon Dioxide 18.4 mmol/L (21.0-32.0); Chloride 103 mmol/L (98-108); Estimated Creatinine Clearance 194.03 ml/min (50-250); Glucose 103 mg/dL (70-99); Potassium 4.1 mmol/L (3.3-5.1)
[2025-03-02] MEDS: Lactated Ringers 1,000 ML 999 ML IV (16:56)
[2025-03-02 17:18] LABS: AST(SGOT) 23 U/L (<=31); Alanine Aminotransfer ALT/SGPT 13 U/L (<=34); Albumin, Serum 3.3 g/dL (3.5-5.0); Alkaline Phosphatase 119 U/L (35-104); Anion Gap 14 (5-15); BUN 11 mg/dL (4-19); BUN/Creat Ratio 18.4 RATIO (10-20); Calcium,Total 9.2 mg/dL (7.6-11.0); Carbon Dioxide 16.6 mmol/L (21.0-32.0); Chloride 103 mmol/L (98-108); Estimated Creatinine Clearance 190.68 ml/min (50-250); Globulin 2.8 g/dL (2.2-4.2); Glucose 108 mg/dL (70-99); Potassium 4.0 mmol/L (3.3-5.1)
--- NOTE | 2025-03-02 18:26 | NURSING ---
Bartolo Mcfarlane updated on lab results and med adm at this time, she is aware of blood sugars and no ss needed this shift.
[2025-03-02] MEDS: Betamethasone/Betamethasone 30 MG/5 ML Vial 12 MG IM (18:30)
[2025-03-02 20:46] LABS: 24HR. UA Prot. Total Volume 2075 mL
[2025-03-02 21:01] LABS: 24Hr UA Prot. Collection Time 24.0 HOURS (24.0)
[2025-03-02 21:36] LABS: Urine Protein (24 Hour) 10.8 mg/dL (<11.9)
[2025-03-02 21:37] LABS: Creatinine Serum Creat 0.6 mg/dL (0.6-1.0)
[2025-03-02 21:44] LABS: 24HR. Urine Creatinine 954.5 mg/24 hr (740.0-1540.0)
[2025-03-02] MEDS: LURASIDONE HCL 60 MG TABLET PO (22:16)
[2025-03-03] VITALS (7 sets, daily range): BP systolic 123–136; BP diastolic 56–77; PULSE 76–116; RESP 16; TEMP 36.4–36.7
[2025-03-03 06:39] LABS: Hematocrit 32.6 % (37-47); Hemoglobin 11.3 g/dL (12.0-15.0); Immature Granulocytes Count 0.260 X10^3/uL (0.0-0.0); Mean Corp Hgb Conc 34.7 g/dL (32-36); Mean Corpuscular Volume 90.3 fL (81-99); Mean Platelet Vol. 11.2 fl (6.2-12.0); NRBC Flagged by Analyzer 0.1 % (0-5); Platelet Count 179 K/mm3 (150-450); RBC Distribution Width CV 13.2 % (11.6-14.6); RBC Distribution Width SD 43.1 fl (35.1-43.9); Red Blood Count 3.61 M/mm3 (4.2-5.4); White Blood Count 14.1 K/mm3 (4.4-11.0)
[2025-03-03 07:33] LABS: AST(SGOT) 26 U/L (<=31); Alanine Aminotransfer ALT/SGPT 15 U/L (<=34); Albumin, Serum 3.2 g/dL (3.5-5.0); Alkaline Phosphatase 114 U/L (35-104); Anion Gap 13 (5-15); BUN 8 mg/dL (4-19); BUN/Creat Ratio 16.5 RATIO (10-20); Calcium,Total 9.1 mg/dL (7.6-11.0); Carbon Dioxide 17.4 mmol/L (21.0-32.0); Chloride 105 mmol/L (98-108); Estimated Creatinine Clearance 216.86 ml/min (50-250); Globulin 2.7 g/dL (2.2-4.2); Glucose 112 mg/dL (70-99); Potassium 4.1 mmol/L (3.3-5.1)
== END 2025-03-03 08:18 | disposition home or self-care (01) ==
PROVIDERS: Obstetrics & Gynecology; Admitting Provider Obstetrics & Gynecology; PCP Family Medicine; Referring Provider Obstetrics & Gynecology; Visit Provider Obstetrics & Gynecology
DX: O99.891 Other specified diseases and conditions complicating pregnancy (principal); F31.9 Bipolar disorder, unspecified; O99.343 Other mental disorders complicating pregnancy, third trimester; O21.2 Late vomiting of pregnancy; H53.2 Diplopia; F41.1 Generalized anxiety disorder; F43.10 Post-traumatic stress disorder, unspecified; Z87.891 Personal history of nicotine dependence; O24.419 Gestational diabetes mellitus in pregnancy, unspecified control; H53.8 Other visual disturbances; Z3A.33 33 weeks gestation of pregnancy; Z79.899 Other long term (current) drug therapy; O12.13 Gestational proteinuria, third trimester
CPT/HCPCS: 96374; 96361; 36415; 59025; 59050; 70551; 76815; 80048; 80053; 81050; 82565; 82570; 82575; 82962; 83615; 84112; 84156; 84450; 84460; 84550; 85025; 85027; 87081; 87653; 96372; 96375; 99221; G0378; J0702

== ENCOUNTER 2025-03-04 13:30 | Outpatient (CLI) | payer BC, SELFPAY ==
[2025-03-04] VITALS (8 sets, daily range): BP systolic 118–142; BP diastolic 70–85; PULSE 65–85; TEMP 36.7; O2SAT 98–100; BMI 34.8
--- OUTSIDE RECORDS SUMMARY | 2025-03-04 13:39 | XMS RPT_ITS | CCD ---
Author Organization [facility] Care Team Providers Care Policy Adviser Name Role Phone Unavailable Primary Care Provider [...] JOLLIFF, BERTHA S Primary Care Unavailable Christos, Snudeep Primary Care Unavailable Tiera Mcfarland Attending Unavailable Christos, Sundeep Primary Care Unavailable Tiera Mcfarland Referring Unavailable Tiera Mcfarland Attending Unavailable Christos, Sundeep Primary Care Unavailable Navdeep Jeffrey Attending Unavailable Navdeep Jeffrey Referring Unavailable Jolliff, Bertha S Referring Unavailable Jolliff, Bertha S Primary Care Unavailable Navdeep Jeffrey Attending Unavailable Christos, Sundeep Primary Care Unavailable Tiera Mcfarland Referring Unavailable Tiera Mcfarland Attending Unavailable Jolliff, Bertha S Primary Care Unavailable Navdeep Jeffrey Attending Unavailable Navdeep Jeffrey Referring Unavailable Christos, Sundeep Primary Care Unavailable Angela Vigil Attending Unavailable Musa, Angela Referring Unavailable Christos, Sundeep Primary Care Unavailable Vande John Flory Referring Unavailabl e Vande Velde, Flory Admitting Unavailabl e Vande Velde, Flory Attending Unavailabl e Christos, Sundeep Primary Care Unavailable Tiera Mcfarland Referring Unavailable Tiera Mcfarland Attending Unavailable Christos, Sundeep Referring Unavailable Christos, Sundeep Primary Care Unavailable Tiera Mcfarland Attending Unavailable VandFlory Lyon Attending Unavailabl e Jolliff, Bertha S Referring Unavailable Jolliff, Bertha S Primary Care Unavailable Jolliff, Bertha S Primary Care Unavailable Jolliff, Bertha S Referring Unavailable Navdeep Jeffrey Attending Unavailable Jolliff, Bertha S Primary Care Unavailable Navdeep Jeffrey Referring Unavailable Navdeep Jeffrey Attending Unavailable HunteronyTiera Referring Unavailable Jolliff, Bertha S Primary Care Unavailable Tiera Mcfarland Attending Unavailable Tiera Mcfarland Referring Unavailable Jolliff, Bertha S Primary Care Unavailable Tiera Mcfarland Attending Unavailable Christos, Sundeep Primary Care Unavailable Markie Quiros Attending Unavailabl e Vande Velde Flory Referring Unavailabl e Vande VeldeFlory Attending Unavailabl e Jolliff, Bertha S Primary Care Unavailable Christos, Sundeep Primary Care Unavailable VandFlory Lyon Attending Unavailabl e Christos, Sundeep Referring Unavailable Christos, Sundeep Primary Care Unavailable Navdeep Jeffrey Attending Unavailable Angela Vigil Attending Unavailable Jolliff, Bertha S Primary Care Unavailable Jolliff, Bertha S Referring Unavailable Jolliff, Bertha S Referring Unavailable Christos, Sundeep Primary Care Unavailable [place] MUNICIPAL SERVICES MANAGER, Nohemi Attending Unavailable Christos, Sundeep Primary Care Unavailable Adán Sanabria Attending Unavailable Christos, Sundeep Referring Unavailable Christos, Sundeep Primary Care Unavailable [place] MUNICIPAL SERVICES MANAGER, Nohemi Attending Unavailable GabrielanthonyTiera Referring Unavailable Jolliff, Bertha S Primary Care Unavailable MarcanthonyTiera Attending Unavailable Christos, Sundeep Referring Unavailable Christos, Sundeep Primary Care Unavailable Vandmadalyn Yungde, Flory Attending Unavailabl e Minoo Arredondo Attending Unavailable Jolliff, Bertha S Primary Care Unavailable Jolliff, Bertha S Attending Unavailable Jolliff, Bertha S Primary Care Unavailable Christos, Sundeep Primary Care Unavailable Adán Sanabria Consulting Unavailable Adán Sanabria Attending Unavailable Christos, Sundeep Primary Care Unavailable Vande Velde, Flory Referring Unavailabl e Vande Velde, Flory Admitting Unavailabl e Vande Velde, Flory Consulting Unavailabl e MarcTiera mckeon Attending Unavailable Christos, Sundeep Primary Care Unavailable Vande Velde, Flory Referring Unavailabl e Vande Velde, Flory Admitting Unavailabl e Vande Velde, Flory Consulting Unavailabl e Vande Velde, Flory Attending Unavailabl e Christos, Sundeep Primary Care Unavailable Tiera Mcfarland Referring Unavailable Tiera Mcfarland Consulting Unavailable Tiera Mcfarland Attending Unavailable Jolliff, Bertha S Referring Unavailable Jolliff, Bertha S Primary Care Unavailable MarcjamarionyTiera Attending Unavailable Jolliff, Bertha S Referring Unavailable Jolliff, Bertha S Primary Care Unavailable Tiera Mcfarland Attending Unavailable Christos, Sundeep Referring Unavailable Christos, Sundeep Primary Care Unavailable Tiera Mcfarland Attending Unavailable Christos, Sundeep Primary Care Unavailable Vande Velde, Flory Attending Unavailabl e Jolliff, Bertha S Referring Unavailable Christos, Sundeep Referring Unavailable Christos, Sundeep Primary Care Unavailable Vande Velde, Flory Attending Unavailabl e Allergies Allergy Classification Reported Allergen(s) Allergy Type Date of Onset Reaction(s) Facility (13 sources) potato allergenic extract; Translations: [POTATO] Drug Allergy 7 Rash, Hives [facility] (14 sources) Seasonal allergy; Translations: [SEASONAL ALLERGIES] Allergy to substance 8 Other: See Comments, Cough [facility] Medications Current Medications Medication Drug Class(es) Dates [...] Start: 02-10-2023 take 1 capsule by mo [facility] once daily FLUoxetine (PROZAC) 20 mg [...] esmer th every 12 (twelve) hours. levonorgestrel 0.936465 mg/hr intrauterine system (7 sources) Progestin, Progestin-containing [...] Problem Date Documented Date Episodic/Chronic Anxiety disorders (16 sources) Anxiety disorder of adolescence; Translations: [Anxiety disorder, unspecified] Onset: 10-11-2015 06-08-2023 Chronic Blindness and vision defects (5 sources) Diplopia; Translations: [Other visual disturbances] Onset: 12-26-2024 Episodic Contraceptive and procreative management (2 sources) Patient encounter status; Translations: [Encounter for removal of intrauterine contraceptive device] 01-18-2024 Episodic Diabetes or abnormal glucose tolerance complicating ; childbirth; or the puerperium (3 sources) Gestational diabetes mellitus in , unspecified [...] 11-25-2023 02-26-2023 Chronic Miscellaneous mental health disorders (9 sources) Anorexia nervosa; Translations: [Anorexia nervosa, unspecified] Onset: 08-11-2024 08-11-2024 Chronic Mood disorders (20 sources) Recurrent major depressive episodes, moderate ; Translations: [Major depressive disorder, recurrent, moderate] Onset: 06-11-2020 06-11-2020 Chronic Mood disorders (2 sources) Mood disorders; Translations: [Depression, unspecified] Onset: 03-03-2025 Nausea and vomiting (2 sources) Vomiting, unspecified; Translations: [Vomiting, unspecified] Onset: 03-03-2025 Episodic Other complications of (7 sources) High risk ; Translations: [Supervision of high risk , unspecified, first trimester] Onset: 08-11-2024 08-11-2024 Episodic Other complications of (2 sources) Supervision of high risk , unspecified, third trimester; Translations: [Supervision of high risk , unspecified, third trimester] Onset: 03-03-2025 Episodic Other complications of (2 sources) Gestational edema, unspecified trimester; Translations: [Gestational edema, unspecified trimester] Onset: 03-03-2025 Episodic Other complications of (2 sources) Other specified related conditions, second trimester; Translations: [Other specified related conditions, second trimester] Onset: 03-03-2025 Episodic Other complications of (2 sources) Gestational proteinuria, unspecified trimester; Translations: [Gestational proteinuria, unspecified trimester] Onset: 03-03-2025 Episodic Other complications of (1 source) Supervision [...] nodes, unspecified] Onset: 07-18-2020 07-23-2020 Chronic Other liver diseases (1 source) Abnormal levels of other serum enzymes; Translations: [Abnormal levels of other serum enzymes] Onset: 03-01-2025 Episodic Other nervous system disorders (20 sources) Thoracic outlet syndrome; Translations: [Brachial plexus disorders] Onset: 03-28-2016 07-23-2020 Chronic Other and delivery including normal (13 sources) with uncertain dates; Translations: [Encounter for supervision of normal , unspecified, unspecified trimester] Onset: 08-11-2024 08-11-2024 Episodic Residual codes; unclassified (1 source) Intolerant [...] Translations: [Unspecified blood type, Rh negative] Onset: 03-03-2025 Episodic Residual codes; unclassified (2 sources) 32 weeks gestation of ; Translations: [32 weeks gestation of ] Onset: 03-03-2025 Episodic Residual codes; unclassified (1 source) 30 weeks gestation of ; Translations: [30 weeks gestation of ] Onset: 02-09-2025 Episodic Residual codes; unclassified (1 source) 25 weeks gestation of ; Translations: [25 weeks gestation of ] Onset: 01-06-2025 Episodic Residual codes; unclassified (1 source) 24 weeks gestation of ; Translations: [24 weeks gestation of ] Onset: 12-26-2024 Episodic Unclassified (2 sources) Cannabis use, unspecified, in remission; Translations: [Cannabis use, unspecified, in remission] Onset: 03-03-2025 Unclassified (1 source) Other specified diseases and conditions complicating ; Translations: [Other specified diseases and conditions complicating ] Onset: 03-01-2025 Past or Other Problems Problem Classification Problem [...] , unspecified trimester] Onset: 10-10-2024 Episodic Other screening for suspected conditions (not [...] Name Value Interpretation Reference Range Facil ity Bedside Glucoseon 03-03-2025 FINGERSTICK GLU 118 mg/dL High 74-106 [facility] Comment on above: Result Comment: VERITO HUMPHRIES OF PATIENT CARE PER NURSING PROTOCOL Performed By: #### L 501.080 ####[facility] [address] [place], [address] CBC W/Diff, Automatedon 10 Absolute Lymph 1.11 X10 3/uL Normal 0.83-4.51 [facility] Comment on above: Performed By: #### L 100.0100 ####[facility] [address] [place], [address] Absolute Neut 12.0 X10 3/uL High 2.0-7.7 [facility] Comment on above: Performed By: #### L 100.0100 ####[facility] [address] [place], [address] Basophils/100 WBC (Bld) 0.4 % Normal 0-1 [facility] Comment on above: Performed By: #### L 100.0100 ####[facility] [address] [place], [address] Eosinophils/100 WBC (Bld) 0.1 % Normal 0-5 [facility] Comment on above: Performed By: #### L 100.0100 ####[facility] [address] [place], [address] Erythrocyte distribution width (RBC) [Ratio] 13.2 % Normal 11.6-14.6 [facility] Comment on above: Performed By: #### L 100.0100 ####[facility] [address] [place], [address] Hematocrit (Bld) [Volume fraction] 32.6 % Low 37-47 [facility] Comment on above: Performed By: #### L 100.0100 ####[facility] [address] [place], [address] Hemoglobin (Bld) [Mass/Vol] 11.3 g/dL Low 12.0-15.0 [facility] Comment on above: Performed By: #### L 100.0100 ####[facility] [address] [place], [address] IG% 1.900 High 0.0-0.9 [facility] Comment on above: Result Comment: IG% - Immature Granulocytes (promyelocytes, myelocytes andmetamyelocytes) > 1% indicates that a LEFT SHIFT is Present. Performed By: #### L 100.0100 ####[facility] [address] [place], [address] Lymphocytes/100 WBC (Bld) 7.9 % Low 19-41 [facility] Comment on above: Performed By: #### L 100.0100 ####[facility] [address] [place], [address] MCH (RBC) [Entitic mass] 31.3 pg Normal 27.0-32.0 [facility] Comment on above: Performed By: #### L 100.0100 ####[facility] [address] [place], [address] MCHC (RBC) [Mass/Vol] 34.7 g/dL Normal 32-36 [facility] Comment on above: Performed By: #### L 100.0100 ####[facility] [address] [place], [address] MCV (RBC) [Entitic vol] 90.3 fL Normal 81-99 [facility] Comment on above: Performed By: #### L 100.0100 ####[facility] [address] [place], [address] Monocytes/100 WBC (Bld) 4.5 % Normal 0-10 [facility] Comment on above: Performed By: #### L 100.0100 ####[facility] [address] [place], [address] Neutrophils/100 WBC (Bld) 85.2 % High 47-70 [facility] Comment on above: Performed By: #### L 100.0100 ####[facility] [address] [place], [address] Nucleated RBC (Bld) [#/Vol] 0.1 10*3/uL Normal 0-5 [facility] Comment on above: Performed By: #### L 100.0100 ####[facility] [address] [place], [address] Platelet mean volume (Bld) [Entitic vol] 11.2 fL Normal 6.2-12.0 [facility] Comment on above: Performed By: #### L 100.0100 ####[facility] [address] [place], [address] Platelets (Bld) [#/Vol] 179 10*3/uL Normal 150-450 [facility] Comment on above: Performed By: #### L 100.0100 ####[facility] [address] [place], [address] RBC (Bld) [#/Vol] 3.61 10*6/uL Low 4.2-5.4 [facility] Comment on above: Performed By: #### L 100.0100 ####[facility] [address] [place], [address] RDW SD 43.1 fl Normal 35.1-43.9 [facility] Comment on above: Performed By: #### L 100.0100 ####[facility] [address] [place], [address] WBC (Bld) [#/Vol] 14.1 10*3/uL High 4.4-11.0 [facility] Comment on above: Performed By: #### L 100.0100 ####[facility] [address] [place], [address] Comprehensive Metabolic Prof ilon 03-03-2025 Albumin [Mass/Vol] 3.2 g/dL Low 3.5-5.0 [facility] Comment on above: Performed By: #### L 500.4050 ####[facility] [address] [place], [address] Albumin/Globulin [Mass ratio] 1.2 {ratio} Normal 0.9-2.4 [facility] Comment on above: Performed By: #### L 500.4050 ####[facility] [address] [place], [address] ALK PHOS 114 U/L High 35-104 [facility] Comment on above: Performed By: #### L 500.4050 ####[facility] [address] [place], [address] ALT [Catalytic activity/Vol] 15 U/L Normal <=34 [facility] Comment on above: Performed By: #### L 500.4050 ####[facility] [address] [place], [address] AST [Catalytic activity/Vol] 26 U/L Normal <=31 [facility] Comment on above: Performed By: #### L 500.4050 ####[facility] [address] [place], [address] Bilirubin [Mass/Vol] 0.22 mg/dL Normal 0.00-1.30 [facility] Comment on above: Performed By: #### L 500.4050 ####[facility] [address] [place], [address] BUN/CRE 16.5 RATIO Normal 10-20 [facility] Comment on above: Performed By: #### L 500.4050 ####[facility] [address] [place], [address] Calcium [Mass/Vol] 9.1 mg/dL Normal 7.6-11.0 [facility] Comment on above: Performed By: #### L 500.4050 ####[facility] [address] [place], [address] Chloride [Moles/Vol] 105 mmol/L Normal 98-108 [facility] Comment on above: Performed By: #### L 500.4050 ####[facility] [address] [place], [address] CO2 [Moles/Vol] 17.4 mmol/L Low 21.0-32.0 [facility] Comment on above: Performed By: #### L 500.4050 ####[facility] [address] [place], [address] Creatinine [Mass/Vol] 0.51 mg/dL Low 0.70-1.20 [facility] Comment on above: Performed By: #### L 500.4050 ####[facility] [address] [place], [address] ECRCL 216.86 ml/min Normal 50-250 [facility] Comment on above: Performed By: #### L 500.4050 ####[facility] [address] [place], [address] GAP 13 Normal 5-15 [facility] Comment on above: Performed By: #### L 500.4050 ####[facility] [address] [place], [address] GFR/1.73 sq M.predicted among non-blacks MDRD (S/P/Bld) [Vol rate/Area] 134 mL/min/{1.73_m2} Normal >60 [facility] Comment on above: Result Comment: mL/m in/1.73m2 CKD-EPI Creatinine Equation (2020) Performed By: #### L 500.4050 ####[facility] [address] [place], [address] Globulin (S) [Mass/Vol] 2.7 g/dL Normal 2.2-4.2 [facility] Comment on above: Performed By: #### L 500.4050 ####[facility] [address] [place], [address] Glucose [Mass/Vol] 112 mg/dL High 70-99 [facility] Comment on above: Performed By: #### L 500.4050 ####[facility] [address] [place], [address] Potassium [Moles/Vol] 4.1 mmol/L Normal 3.3-5.1 [facility] Comment on above: Performed By: #### L 500.4050 ####[facility] [address] [place], [address] Sodium [Moles/Vol] 135 mmol/L Normal 133-145 [facility] Comment on above: Performed By: #### L 500.4050 ####[facility] [address] [place], [address] T PROT 6.0 g/dL Normal 5.9-8.4 [facility] Comment on above: Performed By: #### L 500.4050 ####[facility] [address] [place], [address] Urea nitrogen [Mass/Vol] 8 mg/dL Normal 4-19 [facility] Comment on above: Performed By: #### L 500.4050 ####[facility] [address] [place], [address] Rule out Beta Strep (Grp. B) on 03-03-2025 TIFFANY Group B Beta Streptococcus is not isolated. Normal [facility] Comment on above: Performed By: #### M 100.3400 ####[facility] [address] [place], [address] 24 HR UR Creatinine Clearanc yanet 03-02-2025 CREAT CLEARANCE 121 ml/min Normal 100-200 [facility] Comment on above: Result Comment: AMENDED REPORT 03/02/252143 CREAT CLEARANCE previously reported as: 201 H ml/min Performed By: #### L 500.4507, L500.9000, L502.000 ####[facility] [address] [place], [address] 24 HR Urine Creatinineon UR.CREAT/24hr 954.5 mg/24 hr Normal 740.0-1540.0 [facility] Comment on above: Performed By: #### L 500.4507, L500.9000, L502.000 ####[facility] [address] [place], [address] Basic Metabolic Profile (BMP )on 03-02-2025 BUN/CRE 18.6 RATIO Normal 10-20 [facility] Comment on above: Performed By: #### L 500.2500 ####[facility] [address] [place], [address] Calcium [Mass/Vol] 9.3 mg/dL Normal 7.6-11.0 [facility] Comment on above: Performed By: #### L 500.2500 ####[facility] [address] [place], [address] Chloride [Moles/Vol] 103 mmol/L Normal 98-108 [facility] Comment on above: Performed By: #### L 500.2500 ####[facility] [address] [place], [address] CO2 [Moles/Vol] 18.4 mmol/L Low 21.0-32.0 [facility] Comment on above: Performed By: #### L 500.2500 ####[facility] [address] [place], [address] Creatinine [Mass/Vol] 0.57 mg/dL Low 0.70-1.20 [facility] Comment on above: Performed By: #### L 500.2500 ####[facility] [address] [place], [address] ECRCL 194.03 ml/min Normal 50-250 [facility] Comment on above: Performed By: #### L 500.2500 ####[facility] [address] [place], [address] GAP 13 Normal 5-15 [facility] Comment on above: Performed By: #### L 500.2500 ####[facility] [address] [place], [address] GFR/1.73 sq M.predicted among non-blacks MDRD (S/P/Bld) [Vol rate/Area] 131 mL/min/{1.73_m2} Normal >60 [facility] Comment on above: Result Comment: mL/m in/1.73m2 CKD-EPI Creatinine Equation (2020) Performed By: #### L 500.2500 ####[facility] [address] [place], [address] Glucose [Mass/Vol] 103 mg/dL High 70-99 [facility] Comment on above: Performed By: #### L 500.2500 ####[facility] [address] [place], [address] Potassium [Moles/Vol] 4.1 mmol/L Normal 3.3-5.1 [facility] Comment on above: Performed By: #### L 500.2500 ####[facility] [address] [place], [address] Sodium [Moles/Vol] 134 mmol/L Normal 133-145 [facility] Comment on above: Performed By: #### L 500.2500 ####[facility] [address] [place], [address] Urea nitrogen [Mass/Vol] 11 mg/dL Normal 4-19 [facility] Comment on above: Performed By: #### L 500.2500 ####[facility] [address] [place], [address] Bedside Glucoseon 03-02-2025 FINGERSTICK GLU 157 mg/dL High 74-106 [facility] Comment on above: Result Comment: VERITO GEMENT OF PATIENT CARE PER NURSING PROTOCOL Performed By: #### L 501.080 ####[facility] [address] [place], [address] FINGERSTICK GLU 105 mg/dL Normal 74-106 [facility] Comment on above: Result Comment: VERITO GEMENT OF PATIENT CARE PER NURSING PROTOCOL Performed By: #### L 501.080 ####[facility] [address] [place], [address] FINGERSTICK GLU 135 mg/dL High 74-106 [facility] Comment on above: Result Comment: VERITO GEMENT OF PATIENT CARE PER NURSING PROTOCOL Performed By: #### L 501.080 ####[facility] [address] [place], [address] FINGERSTICK GLU 127 mg/dL High 74-106 [facility] Comment on above: Result Comment: VERITO GEMENT OF PATIENT CARE PER NURSING PROTOCOL Performed By: #### L 501.080 ####[facility] [address] [place], [address] CBC W/Diff, Automatedon 10-0 2-2024 Absolute Lymph 1.21 X10 3/uL Normal 0.83-4.51 [facility] Comment on above: Performed By: #### L 100.0100 ####[facility] [address] [place], [address] Absolute Neut 12.3 X10 3/uL High 2.0-7.7 [facility] Comment on above: Performed By: #### L 100.0100 ####[facility] [address] [place], [address] Basophils/100 WBC (Bld) 0.1 % Normal 0-1 [facility] Comment on above: Performed By: #### L 100.0100 ####[facility] [address] [place], [address] Eosinophils/100 WBC (Bld) 0.1 % Normal 0-5 [facility] Comment on above: Performed By: #### L 100.0100 ####[facility] [address] [place], [address] Erythrocyte distribution width (RBC) [Ratio] 13.3 % Normal 11.6-14.6 [facility] Comment on above: Performed By: #### L 100.0100 ####[facility] [address] [place], [address] Hematocrit (Bld) [Volume fraction] 33.5 % Low 37-47 [facility] Comment on above: Performed By: #### L 100.0100 ####[facility] [address] [place], [address] Hemoglobin (Bld) [Mass/Vol] 11.9 g/dL Low 12.0-15.0 [facility] Comment on above: Performed By: #### L 100.0100 ####[facility] [address] [place], [address] IG% 0.800 Normal 0.0-0.9 [facility] Comment on above: Result Comment: IG% - Immature Granulocytes (promyelocytes, myelocytes andmetamyelocytes) > 1% indicates that a LEFT SHIFT is Present. Performed By: #### L 100.0100 ####[facility] [address] [place], [address] Lymphocytes/100 WBC (Bld) 8.4 % Low 19-41 [facility] [facility] Comment on above: Performed By: #### L 100.0100 ####[facility] [address] [place], [address] MCH (RBC) [Entitic mass] 31.5 pg Normal 27.0-32.0 [facility] Comment on above: Performed By: #### L 100.0100 ####[facility] [address] [place], [address] MCHC (RBC) [Mass/Vol] 35.5 g/dL Normal 32-36 [facility] Comment on above: Performed By: #### L 100.0100 ####[facility] [address] [place], [address] MCV (RBC) [Entitic vol] 88.6 fL Normal 81-99 [facility] Comment on above: Performed By: #### L 100.0100 ####[facility] [address] [place], [address] Monocytes/100 WBC (Bld) 5.7 % Normal 0-10 [facility] Comment on above: Performed By: #### L 100.0100 ####[facility] [address] [place], [address] Neutrophils/100 WBC (Bld) 84.9 % High 47-70 [facility] Comment on above: Performed By: #### L 100.0100 ####[facility] [address] [place], [address] Nucleated RBC (Bld) [#/Vol] 0.1 10*3/uL Normal 0-5 [facility] Comment on above: Performed By: #### L 100.0100 ####[facility] [address] [place], [address] Platelet mean volume (Bld) [Entitic vol] 11.1 fL Normal 6.2-12.0 [facility] Comment on above: Performed By: #### L 100.0100 ####[facility] [address] [place], [address] Platelets (Bld) [#/Vol] 203 10*3/uL Normal 150-450 [facility] Comment on above: Performed By: #### L 100.0100 ####[facility] [address] [place], [address] RBC (Bld) [#/Vol] 3.78 10*6/uL Low 4.2-5.4 [facility] Comment on above: Performed By: #### L 100.0100 ####[facility] [address] [place], [address] RDW SD 43.1 fl Normal 35.1-43.9 [facility] Comment on above: Performed By: #### L 100.0100 ####[facility] [address] [place], [address] WBC (Bld) [#/Vol] 14.5 10*3/uL High 4.4-11.0 [facility] Comment on above: Performed By: #### L 100.0100 ####[facility] [address] [place], [address] Absolute Lymph 0.96 X10 3/uL Normal 0.83-4.51 [facility] Comment on above: Performed By: #### L 501.1400, L504.2610, L100.0100, L500.4050 ####[facility] [address] [place], [address] Absolute Neut 11.5 X10 3/uL High 2.0-7.7 [facility] Comment on above: Performed By: #### L 501.1400, L504.2610, L100.0100, L500.4050 ####[facility] [address] [place], [address] Basophils/100 WBC (Bld) 0.2 % Normal 0-1 [facility] Comment on above: Performed By: #### L 501.1400, L504.2610, L100.0100, L500.4050 ####[facility] [address] [place], [address] Eosinophils/100 WBC (Bld) 0.0 % Normal 0-5 [facility] Comment on above: Performed By: #### L 501.1400, L504.2610, L100.0100, L500.4050 ####[facility] [address] [place], [address] Erythrocyte distribution width (RBC) [Ratio] 13.2 % Normal 11.6-14.6 [facility] Comment on above: Performed By: #### L 501.1400, L504.2610, L100.0100, L500.4050 ####[facility] [address] [place], [address] Hematocrit (Bld) [Volume fraction] 34.4 % Low 37-47 [facility] Comment on above: Performed By: #### L 501.1400, L504.2610, L100.0100, L500.4050 ####[facility] [address] [place], [address] Hemoglobin (Bld) [Mass/Vol] 11.8 g/dL Low 12.0-15.0 [facility] Comment on above: Performed By: #### L 501.1400, L504.2610, L100.0100, L500.4050 ####[facility] [address] [place], [address] IG% 0.800 Normal 0.0-0.9 [facility] Comment on above: Result Comment: IG% - Immature Granulocytes (promyelocytes, myelocytes andmetamyelocytes) > 1% indicates that a LEFT SHIFT is Present. Performed By: #### L 501.1400, L504.2610, L100.0100, L500.4050 ####[facility] [address] [place], [address] Lymphocytes/100 WBC (Bld) 7.4 % Low 19-41 [facility] Comment on above: Performed By: #### L 501.1400, L504.2610, L100.0100, L500.4050 ####[facility] [address] [place], [address] MCH (RBC) [Entitic mass] 30.6 pg Normal 27.0-32.0 [facility] Comment on above: Performed By: #### L 501.1400, L504.2610, L100.0100, L500.4050 ####[facility] [address] [place], [address] MCHC (RBC) [Mass/Vol] 34.3 g/dL Normal 32-36 [facility] Comment on above: Performed By: #### L 501.1400, L504.2610, L100.0100, L500.4050 ####[facility] [address] [place], [address] MCV (RBC) [Entitic vol] 89.4 fL Normal 81-99 [facility] Comment on above: Performed By: #### L 501.1400, L504.2610, L100.0100, L500.4050 ####[facility] [address] [place], [address] Monocytes/100 WBC (Bld) 2.7 % Normal 0-10 [facility] Comment on above: Performed By: #### L 501.1400, L504.2610, L100.0100, L500.4050 ####[facility] [address] [place], [address] Neutrophils/100 WBC (Bld) 88.9 % High 47-70 [facility] Comment on above: Performed By: #### L 501.1400, L504.2610, L100.0100, L500.4050 ####[facility] [address] [place], [address] Nucleated RBC (Bld) [#/Vol] 0 10*3/uL Normal 0-5 [facility] Comment on above: Performed By: #### L 501.1400, L504.2610, L100.0100, L500.4050 ####[facility] [address] [place], [address] Platelet mean volume (Bld) [Entitic vol] 11.4 fL Normal 6.2-12.0 [facility] Comment on above: Performed By: #### L 501.1400, L504.2610, L100.0100, L500.4050 ####[facility] [address] [place], [address] Platelets (Bld) [#/Vol] 191 10*3/uL Normal 150-450 [facility] Comment on above: Performed By: #### L 501.1400, L504.2610, L100.0100, L500.4050 ####[facility] [address] [place], [address] RBC (Bld) [#/Vol] 3.85 10*6/uL Low 4.2-5.4 [facility] Comment on above: Performed By: #### L 501.1400, L504.2610, L100.0100, L500.4050 ####[facility] [address] [place], [address] RDW SD 42.5 fl Normal 35.1-43.9 [facility] Comment on above: Performed By: #### L 501.1400, L504.2610, L100.0100, L500.4050 ####[facility] [address] [place], [address] WBC (Bld) [#/Vol] 13.0 10*3/uL High 4.4-11.0 [facility] Comment on above: Performed By: #### L 501.1400, L504.2610, L100.0100, L500.4050 ####[facility] [address] [place], [address] Comprehensive Metabolic Prof ilon 03-02-2025 Albumin [Mass/Vol] 3.3 g/dL Low 3.5-5.0 [facility] Comment on above: Performed By: #### L 500.4050 ####[facility] [address] [place], [address] Albumin/Globulin [Mass ratio] 1.2 {ratio} Normal 0.9-2.4 [facility] Comment on above: Performed By: #### L 500.4050 ####[facility] [address] [place], [address] ALK PHOS 119 U/L High 35-104 [facility] Comment on above: Performed By: #### L 500.4050 ####[facility] [address] [place], [address] ALT [Catalytic activity/Vol] 13 U/L Normal <=34 [facility] Comment on above: Performed By: #### L 500.4050 ####[facility] [address] [place], [address] AST [Catalytic activity/Vol] 23 U/L Normal <=31 [facility] Comment on above: Performed By: #### L 500.4050 ####[facility] [address] [place], [address] Bilirubin [Mass/Vol] 0.21 mg/dL Normal 0.00-1.30 [facility] Comment on above: Performed By: #### L 500.4050 ####[facility] [address] [place], [address] BUN/CRE 18.4 RATIO Normal 10-20 [facility] Comment on above: Performed By: #### L 500.4050 ####[facility] [address] [place], [address] Calcium [Mass/Vol] 9.2 mg/dL Normal 7.6-11.0 [facility] Comment on above: Performed By: #### L 500.4050 ####[facility] [address] [place], [address] Chloride [Moles/Vol] 103 mmol/L Normal 98-108 [facility] Comment on above: Performed By: #### L 500.4050 ####[facility] [address] [place], [address] CO2 [Moles/Vol] 16.6 mmol/L Low 21.0-32.0 [facility] Comment on above: Performed By: #### L 500.4050 ####[facility] [address] [place], [address] Creatinine [Mass/Vol] 0.58 mg/dL Low 0.70-1.20 [facility] Comment on above: Performed By: #### L 500.4050 ####[facility] [address] [place], [address] ECRCL 190.68 ml/min Normal 50-250 [facility] Comment on above: Performed By: #### L 500.4050 ####[facility] [address] [place], [address] GAP 14 Normal 5-15 [facility] Comment on above: Performed By: #### L 500.4050 ####[facility] [address] [place], [address] GFR/1.73 sq M.predicted among non-blacks MDRD (S/P/Bld) [Vol rate/Area] 130 mL/min/{1.73_m2} Normal >60 [facility] Comment on above: Result Comment: mL/m in/1.73m2 CKD-EPI Creatinine Equation (2020) Performed By: #### L 500.4050 ####[facility] [address] [place], [address] Globulin (S) [Mass/Vol] 2.8 g/dL Normal 2.2-4.2 [facility] Comment on above: Performed By: #### L 500.4050 ####[facility] [address] [place], [address] Glucose [Mass/Vol] 108 mg/dL High 70-99 [facility] Comment on above: Performed By: #### L 500.4050 ####[facility] [address] [place], [address] Potassium [Moles/Vol] 4.0 mmol/L Normal 3.3-5.1 [facility] Comment on above: Performed By: #### L 500.4050 ####[facility] [address] [place], [address] Sodium [Moles/Vol] 134 mmol/L Normal 133-145 [facility] Comment on above: Performed By: #### L 500.4050 ####[facility] [address] [place], [address] T PROT 6.1 g/dL Normal 5.9-8.4 [facility] Comment on above: Performed By: #### L 500.4050 ####[facility] [address] [place], [address] Urea nitrogen [Mass/Vol] 11 mg/dL Normal 4-19 [facility] Comment on above: Performed By: #### L 500.4050 ####[facility] [address] [place], [address] Albumin [Mass/Vol] 3.3 g/dL Low 3.5-5.0 [facility] Comment on above: Performed By: #### L 501.1400, L504.2610, L100.0100, L500.4050 ####[facility] [address] [place], [address] Albumin/Globulin [Mass ratio] 1.1 {ratio} Normal 0.9-2.4 [facility] Comment on above: Performed By: #### L 501.1400, L504.2610, L100.0100, L500.4050 ####[facility] [address] [place], [address] ALK PHOS 118 U/L High 35-104 [facility] Comment on above: Performed By: #### L 501.1400, L504.2610, L100.0100, L500.4050 ####[facility] [address] [place], [address] ALT [Catalytic activity/Vol] 12 U/L Normal <=34 [facility] Comment on above: Performed By: #### L 501.1400, L504.2610, L100.0100, L500.4050 ####[facility] [address] [place], [address] AST [Catalytic activity/Vol] 25 U/L Normal <=31 [facility] Comment on above: Performed By: #### L 501.1400, L504.2610, L100.0100, L500.4050 ####[facility] [address] [place], [address] Bilirubin [Mass/Vol] 0.22 mg/dL Normal 0.00-1.30 [facility] Comment on above: Performed By: #### L 501.1400, L504.2610, L100.0100, L500.4050 ####[facility] [address] [place], [address] BUN/CRE 14.7 RATIO Normal 10-20 [facility] Comment on above: Performed By: #### L 501.1400, L504.2610, L100.0100, L500.4050 ####[facility] [address] [place], [address] Calcium [Mass/Vol] 9.6 mg/dL Normal 7.6-11.0 [facility] Comment on above: Performed By: #### L 501.1400, L504.2610, L100.0100, L500.4050 ####[facility] [address] [place], [address] Chloride [Moles/Vol] 104 mmol/L Normal 98-108 [facility] Comment on above: Performed By: #### L 501.1400, L504.2610, L100.0100, L500.4050 ####[facility] [address] [place], [address] CO2 [Moles/Vol] 16.7 mmol/L Low 21.0-32.0 [facility] Comment on above: Performed By: #### L 501.1400, L504.2610, L100.0100, L500.4050 ####[facility] [address] [place], [address] Creatinine [Mass/Vol] 0.51 mg/dL Low 0.70-1.20 [facility] Comment on above: Performed By: #### L 501.1400, L504.2610, L100.0100, L500.4050 ####[facility] [address] [place], [address] ECRCL 216.86 ml/min Normal 50-250 [facility] Comment on above: Performed By: #### L 501.1400, L504.2610, L100.0100, L500.4050 ####[facility] [address] [place], [address] GAP 12 Normal 5-15 [facility] Comment on above: Performed By: #### L 501.1400, L504.2610, L100.0100, L500.4050 ####[facility] [address] [place], [address] GFR/1.73 sq M.predicted among non-blacks MDRD (S/P/Bld) [Vol rate/Area] 135 mL/min/{1.73_m2} Normal >60 [facility] Comment on above: Result Comment: mL/m in/1.73m2 CKD-EPI Creatinine Equation (2020) Performed By: #### L 501.1400, L504.2610, L100.0100, L500.4050 ####[facility] [address] [place], [address] Globulin (S) [Mass/Vol] 3.0 g/dL Normal 2.2-4.2 [facility] Comment on above: Performed By: #### L 501.1400, L504.2610, L100.0100, L500.4050 ####[facility] [address] [place], [address] Glucose [Mass/Vol] 137 mg/dL High 70-99 [facility] Comment on above: Performed By: #### L 501.1400, L504.2610, L100.0100, L500.4050 ####[facility] [address] [place], [address] Potassium [Moles/Vol] 4.2 mmol/L Normal 3.3-5.1 [facility] Comment on above: Performed By: #### L 501.1400, L504.2610, L100.0100, L500.4050 ####[facility] [address] [place], [address] Sodium [Moles/Vol] 133 mmol/L Normal 133-145 [facility] Comment on above: Performed By: #### L 501.1400, L504.2610, L100.0100, L500.4050 ####[facility] [address] [place], [address] T PROT 6.3 g/dL Normal 5.9-8.4 [facility] Comment on above: Performed By: #### L 501.1400, L504.2610, L100.0100, L500.4050 ####[facility] [address] [place], [address] Urea nitrogen [Mass/Vol] 7 mg/dL Normal 4-19 [facility] Comment on above: Performed By: #### L 501.1400, L504.2610, L100.0100, L500.4050 ####[facility] [address] [place], [address] ALB Normal 3.5-5.0 [facility] Comment on above: Result Comment: PER AL[place]ULYIA NURSE OK TO CANCEL ALREADY HAD DONE AND HAS A NEWORDER THIS AM. Performed By: #### L 500.4050 ####[facility] [address] [place], [address] ALK PHOS Normal 35-104 [facility] Comment on above: Result Comment: PER [place] NURSE OK TO CANCEL ALREADY HAD DONE AND HAS A NEWORDER THIS AM. Performed By: #### L 500.4050 ####[facility] [address] [place], [address] ALT Normal <=34 [facility] Comment on above: Result Comment: PER AL[place]ULY[place] NURSE OK TO CANCEL ALREADY HAD DONE AND HAS A NEWORDER THIS AM. Performed By: #### L 500.4050 ####[facility] [address] [place], [address] AST Normal <=31 [facility] Comment on above: Result Comment: PER ALYDIA NURSE OK TO CANCEL ALREADY HAD DONE AND HAS A NEWORDER THIS AM. Performed By: #### L 500.4050 ####[facility] [address] [place], [address] BUN Normal 4-19 [facility] Comment on above: Result Comment: PER ALYDIA NURSE OK TO CANCEL ALREADY HAD DONE AND HAS A NEWORDER THIS AM. Performed By: #### L 500.4050 ####[facility] [address] [place], [address] BUN/CRE Normal 10-20 [facility] Comment on above: Result Comment: PER AL[place]ULYIA NURSE OK TO CANCEL ALREADY HAD DONE AND HAS A NEWORDER THIS AM. Performed By: #### L 500.4050 ####[facility] [address] [place], [address] Calcium Normal 7.6-11.0 [facility] Comment on above: Result Comment: PER ALYDIA NURSE OK TO CANCEL ALREADY HAD DONE AND HAS A NEWORDER THIS AM. Performed By: #### L 500.4050 ####[facility] [address] [place], [address] CL Normal 98-108 [facility] Comment on above: Result Comment: PER ALYDIA NURSE OK TO CANCEL ALREADY HAD DONE AND HAS A NEWORDER THIS AM. Performed By: #### L 500.4050 ####[facility] [address] [place], [address] CO2 Normal 21.0-32.0 [facility] Comment on above: Result Comment: PER BESSYPAULYIA NURSE OK TO CANCEL ALREADY HAD DONE AND HAS A NEWORDER THIS AM. Performed By: #### L 500.4050 ####[facility] [address] [place], [address] CREAT,SERUM Normal 0.70-1.20 [facility] Comment on above: Result Comment: PER AL[place]ULYIA NURSE OK TO CANCEL ALREADY HAD DONE AND HAS A NEWORDER THIS AM. Performed By: #### L 500.4050 ####[facility] [address] [place], [address] eGFR Normal >60 [facility] Comment on above: Result Comment: PER [place]UL[place] NURSE OK TO CANCEL ALREADY HAD DONE AND HAS A NEWORDER THIS AM. Performed By: #### L 500.4050 ####[facility] [address] [place], [address] GAP Normal 5-15 [facility] Comment on above: Result Comment: PER ALPAULYIA NURSE OK TO CANCEL ALREADY HAD DONE AND HAS A NEWORDER THIS AM. Performed By: #### L 500.4050 ####[facility] [address] [place], [address] GLU Normal 70-99 [facility] Comment on above: Result Comment: PER ALPAULYIA NURSE OK TO CANCEL ALREADY HAD DONE AND HAS A NEWORDER THIS AM. Performed By: #### L 500.4050 ####[facility] [address] [place], [address] Potassium Normal 3.3-5.1 [facility] Comment on above: Result Comment: PER ALPAULYIA NURSE OK TO CANCEL ALREADY HAD DONE AND HAS A NEWORDER THIS AM. Performed By: #### L 500.4050 ####[facility] [address] [place], [address] T BILI Normal 0.00-1.30 [facility] Comment on above: Result Comment: PER THEOIA NURSE OK TO CANCEL ALREADY HAD DONE AND HAS A NEWORDER THIS AM. Performed By: #### L 500.4050 ####[facility] [address] [place], [address] T PROT Normal 5.9-8.4 [facility] Comment on above: Result Comment: PER ALPAULYIA NURSE OK TO CANCEL ALREADY HAD DONE AND HAS A NEWORDER THIS AM. Performed By: #### L 500.4050 ####[facility] [address] [place], [address] Comprehensive Metabolic Profil Normal 133-145 [facility] Comment on above: Result Comment: PER GUILLERMO NURSE OK TO CANCEL ALREADY HAD DONE AND HAS A NEWORDER THIS AM. Performed By: #### L 500.4050 ####[facility] [address] [place], [address] LDHon 03-02-2025 LDH 195 U/L Normal 84-246 [facility] Comment on above: Performed By: #### L 501.1400, L504.2610, L100.0100, L500.4050 ####[facility] [address] [place], [address] OB Triage Physician Noteon 1 OB Triage Physician Note Normal [facility] Protein, Urine 24HRon 2024 24hr UR PROTEIN 224.1 mg/24HR High <150 MG/24HR [facility] Comment on above: Performed By: #### L 500.4507, L500.9000, L502.000 ####[facility] [address] [place], [address] Protein Ql (U) 10.8 mg/dL Normal <11.9 [facility] Comment on above: Performed By: #### L 500.4507, L500.9000, L502.000 ####[facility] [address] [place], [address] Uric Acidon 03-02-2025 URIC 6.3 mg/dL High 2.6-6.0 [facility] Comment on above: Result Comment: The drugs N-Acetylcysteine and Metamizole may falselydepress this assay. Performed By: #### L 501.1400, L504.2610, L100.0100, L500.4050 ####[facility] [address] [place], [address] (ROM) Rupture Of Membraneson 03-01-2025 ROM Negative Normal Negative [facility] Comment on above: Result Comment: Amni otic fluid not present indicates No Rupture of FetalMembranes at time of specimen collection. Performed By: #### L 205.1000 ####[facility] [address] [place], [address] AST(SGOT)on 03-01-2025 AST [Catalytic activity/Vol] 29 U/L Normal <=31 [facility] Comment on above: Performed By: #### L 501.4100, L501.1105, L501.1400, L100.0500, L501.4405 ####[facility] [address] [place], [address] Alanine Aminotransferas (SGP T)on 03-01-2025 ALT [Catalytic activity/Vol] 14 U/L Normal <=34 [facility] Comment on above: Performed By: #### L 501.4100, L501.1105, L501.1400, L100.0500, L501.4405 ####[facility] [address] [place], [address] Bedside Glucoseon 03-01-2025 FINGERSTICK GLU 160 mg/dL High 74-106 [facility] Comment on above: Result Comment: VERITO HUMPHRIES OF PATIENT CARE PER NURSING PROTOCOL Performed By: #### L 501.080 ####[facility] [address] [place], [address] FINGERSTICK GLU 94 mg/dL Normal 74-106 [facility] Comment on above: Result Comment: VERITO HUMPHRIES OF PATIENT CARE PER NURSING PROTOCOL Performed By: #### L 501.080 ####[facility] [address] [place], [address] Brain without Contraston Brain without Contrast Normal [facility] CBC-Complete Blood Cnt No Di ffon 03-01-2025 Erythrocyte distribution width (RBC) [Ratio] 13.4 % Normal 11.6-14.6 [facility] Comment on above: Performed By: #### L 501.4100, L501.1105, L501.1400, L100.0500, L501.4405 ####[facility] [address] [place], [address] Hematocrit (Bld) [Volume fraction] 34.6 % Low 37-47 [facility] Comment on above: Performed By: #### L 501.4100, L501.1105, L501.1400, L100.0500, L501.4405 ####[facility] [address] [place], [address] Hemoglobin (Bld) [Mass/Vol] 12.1 g/dL Normal 12.0-15.0 [facility] Comment on above: Performed By: #### L 501.4100, L501.1105, L501.1400, L100.0500, L501.4405 ####[facility] [address] [place], [address] MCH (RBC) [Entitic mass] 31.3 pg Normal 27.0-32.0 [facility] Comment on above: Performed By: #### L 501.4100, L501.1105, L501.1400, L100.0500, L501.4405 ####[facility] [address] [place], [address] MCHC (RBC) [Mass/Vol] 35.0 g/dL Normal 32-36 [facility] Comment on above: Performed By: #### L 501.4100, L501.1105, L501.1400, L100.0500, L501.4405 ####[facility] [address] [place], [address] MCV (RBC) [Entitic vol] 89.4 fL Normal 81-99 [facility] Comment on above: Performed By: #### L 501.4100, L501.1105, L501.1400, L100.0500, L501.4405 ####[facility] [address] [place], [address] Platelet mean volume (Bld) [Entitic vol] 11.1 fL Normal 6.2-12.0 [facility] Comment on above: Performed By: #### L 501.4100, L501.1105, L501.1400, L100.0500, L501.4405 ####[facility] [address] [place], [address] Platelets (Bld) [#/Vol] 197 10*3/uL Normal 150-450 [facility] Comment on above: Performed By: #### L 501.4100, L501.1105, L501.1400, L100.0500, L501.4405 ####[facility] [address] [place], [address] RBC (Bld) [#/Vol] 3.87 10*6/uL Low 4.2-5.4 [facility] Comment on above: Performed By: #### L 501.4100, L501.1105, L501.1400, L100.0500, L501.4405 ####[facility] [address] [place], [address] RDW SD 43.7 fl Normal 35.1-43.9 [facility] Comment on above: Performed By: #### L 501.4100, L501.1105, L501.1400, L100.0500, L501.4405 ####[facility] [address] [place], [address] WBC (Bld) [#/Vol] 10.2 10*3/uL Normal 4.4-11.0 [facility] Comment on above: Performed By: #### L 501.4100, L501.1105, L501.1400, L100.0500, L501.4405 ####[facility] [address] [place], [address] H AND P Exam - OB/GYNon 10-0 H&P Exam - PROFILE TRIMMER Normal [facility] LDHon 03-01-2025 LDH 164 U/L Normal 84-246 [facility] Comment on above: Performed By: #### L 504.2610 ####[facility] [address] [place], [address] M8200.0100on 03-01-2025 M8200.0100 Negative Normal [facility] Comment on above: Performed By: #### M 8200.0100 ####[facility] [address] [place], [address] OB Limited (No Biometrics)on 03-01-2025 OB Limited (No Biometrics) Normal [facility] Copier Technician Office Visit Reporton 03-01-2025 Copier Technician Office Visit Report Normal [facility] Protein+Creatinine Ratio,Uri neon 03-01-2025 PROT:CRE RATIO Normal 0-200 [facility] Comment on above: Result Comment: DUPL ICATE ORDER. SEE UC13 FOR RESULTS Performed By: #### L 501.0900 ####[facility] [address] [place], [address] PROTEIN,UR.RAN. Normal 0.0-12.0 [facility] Comment on above: Result Comment: DUPL ICATE ORDER. SEE UC13 FOR RESULTS Performed By: #### L 501.0900 ####[facility] [address] [place], [address] UR CREAT Normal 28.00-217.00 [facility] Comment on above: Result Comment: DUPL ICATE ORDER. SEE UC13 FOR RESULTS Performed By: #### L 501.0900 ####[facility] [address] [place], [address] PROT:CRE RATIO 324 mg/g CRE High 0-200 [facility] Comment on above: Performed By: #### L 501.0900 ####[facility] [address] [place], [address] Protein (U) [Mass/Vol] 8.4 mg/dL Normal 0.0-12.0 [facility] Comment on above: Performed By: #### L 501.0900 ####[facility] [address] [place], [address] UR CREAT 25.90 mg/dL Low 28.00-217.00 [facility] Comment on above: Performed By: #### L 501.0900 ####[facility] [address] [place], [address] Serum Creatinine AND GFRon 1 0 Creatinine [Mass/Vol] 0.55 mg/dL Low 0.70-1.20 [facility] Comment on above: Performed By: #### L 501.4100, L501.1105, L501.1400, L100.0500, L501.4405 ####[facility] [address] [place], [address] ECRCL 201.09 ml/min Normal 50-250 [facility] Comment on above: Performed By: #### L 501.4100, L501.1105, L501.1400, L100.0500, L501.4405 ####[facility] [address] [place], [address] GFR/1.73 sq M.predicted among non-blacks MDRD (S/P/Bld) [Vol rate/Area] 132 mL/min/{1.73_m2} Normal >60 [facility] Comment on above: Result Comment: mL/m in/1.73m2 CKD-EPI Creatinine Equation (2020) Performed By: #### L 501.4100, L501.1105, L501.1400, L100.0500, L501.4405 ####[facility] [address] [place], [address] Uric Acidon 03-01-2025 URIC 6.2 mg/dL High 2.6-6.0 [facility] Comment on above: Result Comment: The drugs N-Acetylcysteine and Metamizole may falselydepress this assay. Performed By: #### L 501.4100, L501.1105, L501.1400, L100.0500, L501.4405 ####[facility] [address] [place], [place], [id number] Urine Cultureon 02-28-2025 URC #1 Below infection level. Presumptive C albicans [place] Count <1000 Mixed Gram Positive Organisms Mixed Gram Positive Organisms MIXC Mixed contaminants. Submit a new specimen if indicated. Normal [facility] Comment on above: Performed By: #### M 100.2200 ####[facility] [address] [place], [address] OB Triage Physician Noteon 0 02-26-2025 OB Triage Physician Note Normal [facility] (ROM) Rupture Of Membraneson 02-25-2025 ROM Negative Normal Negative [facility] Comment on above: Result Comment: Amni otic fluid not present indicates No Rupture of FetalMembranes at time of specimen collection. Performed By: #### L 205.1000 ####[facility] [address] [place], [place], [phone] AST(SGOT)on 02-25-2025 AST [Catalytic activity/Vol] 27 U/L Normal <=31 [facility] Comment on above: Performed By: #### L 501.1400, L501.1105, L100.0500, L501.4405, L501.0900, L501.4100 ####[facility] [address] [place], [phone] Alanine Aminotransferas (SGP T)on 02-25-2025 ALT [Catalytic activity/Vol] 15 U/L Normal <=34 [facility] Comment on above: Performed By: #### L 501.1400, L501.1105, L100.0500, L501.4405, L501.0900, L501.4100 ####[facility] [address] [place], [address] CBC-Complete Blood Cnt No Di ffon 02-25-2025 Erythrocyte distribution width (RBC) [Ratio] 13.2 % Normal 11.6-14.6 [facility] Comment on above: Performed By: #### L 501.1400, L501.1105, L100.0500, L501.4405, L501.0900, L501.4100 ####[facility] [address] [place], [address] Hematocrit (Bld) [Volume fraction] 35.7 % Low 37-47 [facility] Comment on above: Performed By: #### L 501.1400, L501.1105, L100.0500, L501.4405, L501.0900, L501.4100 ####[facility] [address] [place], [address] Hemoglobin (Bld) [Mass/Vol] 12.6 g/dL Normal 12.0-15.0 [facility] Comment on above: Performed By: #### L 501.1400, L501.1105, L100.0500, L501.4405, L501.0900, L501.4100 ####[facility] [address] [place], [address] MCH (RBC) [Entitic mass] 31.6 pg Normal 27.0-32.0 [facility] Comment on above: Performed By: #### L 501.1400, L501.1105, L100.0500, L501.4405, L501.0900, L501.4100 ####[facility] [address] [place], [address] MCHC (RBC) [Mass/Vol] 35.3 g/dL Normal 32-36 [facility] Comment on above: Performed By: #### L 501.1400, L501.1105, L100.0500, L501.4405, L501.0900, L501.4100 ####[facility] [address] [place], [address] MCV (RBC) [Entitic vol] 89.5 fL Normal 81-99 [facility] Comment on above: Performed By: #### L 501.1400, L501.1105, L100.0500, L501.4405, L501.0900, L501.4100 ####[facility] [address] [place], [address] Platelet mean volume (Bld) [Entitic vol] 11.1 fL Normal 6.2-12.0 [facility] Comment on above: Performed By: #### L 501.1400, L501.1105, L100.0500, L501.4405, L501.0900, L501.4100 ####[facility] [address] [place], [address] Platelets (Bld) [#/Vol] 208 10*3/uL Normal 150-450 [facility] Comment on above: Performed By: #### L 501.1400, L501.1105, L100.0500, L501.4405, L501.0900, L501.4100 ####[facility] [address] [place], [address] RBC (Bld) [#/Vol] 3.99 10*6/uL Low 4.2-5.4 [facility] Comment on above: Performed By: #### L 501.1400, L501.1105, L100.0500, L501.4405, L501.0900, L501.4100 ####[facility] [address] [place], [address] RDW SD 43.3 fl Normal 35.1-43.9 [facility] Comment on above: Performed By: #### L 501.1400, L501.1105, L100.0500, L501.4405, L501.0900, L501.4100 ####[facility] [address] [place], [address] WBC (Bld) [#/Vol] 11.5 10*3/uL High 4.4-11.0 [facility] Comment on above: Performed By: #### L 501.1400, L501.1105, L100.0500, L501.4405, L501.0900, L501.4100 ####[facility] [address] [place], [address] Protein+Creatinine Ratio,Uri neon 02-25-2025 PROT:CRE RATIO 214 mg/g CRE High 0-200 [facility] Comment on above: Performed By: #### L 501.1400, L501.1105, L100.0500, L501.4405, L501.0900, L501.4100 ####[facility] [address] [place], [address] Protein (U) [Mass/Vol] 8.1 mg/dL Normal 0.0-12.0 [facility] Comment on above: Performed By: #### L 501.1400, L501.1105, L100.0500, L501.4405, L501.0900, L501.4100 ####[facility] [address] [place], [address] UR CREAT 37.80 mg/dL Normal 28.00-217.00 [facility] Comment on above: Performed By: #### L 501.1400, L501.1105, L100.0500, L501.4405, L501.0900, L501.4100 ####[facility] [address] [place], [place], [phone] Serum Creatinine AND GFRon 0 - Creatinine [Mass/Vol] 0.52 mg/dL Low 0.70-1.20 [facility] Comment on above: Performed By: #### L 501.1400, L501.1105, L100.0500, L501.4405, L501.0900, L501.4100 ####[facility] [address] [place], [address] ECRCL 212.39 ml/min Normal 50-250 [facility] Comment on above: Performed By: #### L 501.1400, L501.1105, L100.0500, L501.4405, L501.0900, L501.4100 ####[facility] [address] [place], [address] GFR/1.73 sq M.predicted among non-blacks MDRD (S/P/Bld) [Vol rate/Area] 134 mL/min/{1.73_m2} Normal >60 [facility] Comment on above: Result Comment: mL/m in/1.73m2 CKD-EPI Creatinine Equation (2020) Performed By: #### L 501.1400, L501.1105, L100.0500, L501.4405, L501.0900, L501.4100 ####[facility] [address] [place], [address] Uric Acidon 02-25-2025 URIC 6.1 mg/dL High 2.6-6.0 [facility] Comment on above: Result Comment: The drugs N-Acetylcysteine and Metamizole may falselydepress this assay. Performed By: #### L 501.1400, L501.1105, L100.0500, L501.4405, L501.0900, L501.4100 ####[facility] [address] [place], [address] Urinalysis, Completeon 02-25 RBC 5-10 SEEN Normal 0-5 [facility] Comment on above: Order Comment: CLEAN CATCH Performed By: #### L 400.0001 ####[facility] [address] [place], [address] WBC 50-100 SEEN Normal 0-5 [facility] Comment on above: Order Comment: CLEAN CATCH Performed By: #### L 400.0001 ####[facility] [address] [place], [address] BACTERIA 2+ /hpf Normal None Seen [facility] Comment on above: Order Comment: CLEAN CATCH Performed By: #### L 400.0001 ####[facility] [address] [place], [address] EPI,SQUAMOUS 10-25 SEEN Normal 5-10 [facility] Comment on above: Order Comment: CLEAN CATCH Performed By: #### L 400.0001 ####[facility] [address] [place], [address] Mucus Ql (Urine sed) 0 SEEN Normal [facility] Comment on above: Order Comment: CLEAN CATCH Performed By: #### L 400.0001 ####[facility] [address] [place], [address] OB Triage Progress Noteon OB Triage Progress Note Normal [facility] CBC W/Diff, Automatedon 09-2 Absolute Lymph 1.14 X10 3/uL Normal 0.83-4.51 [facility] Comment on above: Performed By: #### L 500.4050, L504.2610, L100.0100, L501.1400 ####[facility] [address] [place], [address] Absolute Neut 8.0 X10 3/uL High 2.0-7.7 [facility] Comment on above: Performed By: #### L 500.4050, L504.2610, L100.0100, L501.1400 ####[facility] [address] [place], [address] Basophils/100 WBC (Bld) 0.4 % Normal 0-1 [facility] Comment on above: Performed By: #### L 500.4050, L504.2610, L100.0100, L501.1400 ####[facility] [address] [place], [address] Eosinophils/100 WBC (Bld) 1.3 % Normal 0-5 [facility] Comment on above: Performed By: #### L 500.4050, L504.2610, L100.0100, L501.1400 ####[facility] [address] [place], [address] Erythrocyte distribution width (RBC) [Ratio] 13.5 % Normal 11.6-14.6 [facility] Comment on above: Performed By: #### L 500.4050, L504.2610, L100.0100, L501.1400 ####[facility] [address] [place], [address] Hematocrit (Bld) [Volume fraction] 36.7 % Low 37-47 [facility] Comment on above: Performed By: #### L 500.4050, L504.2610, L100.0100, L501.1400 ####[facility] [address] [place], [address] Hemoglobin (Bld) [Mass/Vol] 12.7 g/dL Normal 12.0-15.0 [facility] Comment on above: Performed By: #### L 500.4050, L504.2610, L100.0100, L501.1400 ####[facility] [address] [place], [address] IG% 0.800 Normal 0.0-0.9 [facility] Comment on above: Result Comment: IG% - Immature Granulocytes (promyelocytes, myelocytes andmetamyelocytes) > 1% indicates that a LEFT SHIFT is Present. Performed By: #### L 500.4050, L504.2610, L100.0100, L501.1400 ####[facility] [address] [place], [address] Lymphocytes/100 WBC (Bld) 11.3 % Low 19-41 [facility] Comment on above: Performed By: #### L 500.4050, L504.2610, L100.0100, L501.1400 ####[facility] [address] [place], [address] MCH (RBC) [Entitic mass] 31.5 pg Normal 27.0-32.0 [facility] Comment on above: Performed By: #### L 500.4050, L504.2610, L100.0100, L501.1400 ####[facility] [address] [place], [address] MCHC (RBC) [Mass/Vol] 34.6 g/dL Normal 32-36 [facility] Comment on above: Performed By: #### L 500.4050, L504.2610, L100.0100, L501.1400 ####[facility] [address] [place], [address] MCV (RBC) [Entitic vol] 91.1 fL Normal 81-99 [facility] Comment on above: Performed By: #### L 500.4050, L504.2610, L100.0100, L501.1400 ####[facility] [address] [place], [address] Monocytes/100 WBC (Bld) 7.1 % Normal 0-10 [facility] Comment on above: Performed By: #### L 500.4050, L504.2610, L100.0100, L501.1400 ####[facility] [address] [place], [address] Neutrophils/100 WBC (Bld) 79.1 % High 47-70 [facility] Comment on above: Performed By: #### L 500.4050, L504.2610, L100.0100, L501.1400 ####[facility] [address] [place], [address] Nucleated RBC (Bld) [#/Vol] 0 10*3/uL Normal 0-5 [facility] Comment on above: Performed By: #### L 500.4050, L504.2610, L100.0100, L501.1400 ####[facility] [address] [place], [address] Platelet mean volume (Bld) [Entitic vol] 11.2 fL Normal 6.2-12.0 [facility] Comment on above: Performed By: #### L 500.4050, L504.2610, L100.0100, L501.1400 ####[facility] [address] [place], [address] Platelets (Bld) [#/Vol] 236 10*3/uL Normal 150-450 [facility] Comment on above: Performed By: #### L 500.4050, L504.2610, L100.0100, L501.1400 ####[facility] [address] [place], [address] RBC (Bld) [#/Vol] 4.03 10*6/uL Low 4.2-5.4 [facility] Comment on above: Performed By: #### L 500.4050, L504.2610, L100.0100, L501.1400 ####[facility] [address] [place], [address] RDW SD 44.5 fl High 35.1-43.9 [facility] Comment on above: Performed By: #### L 500.4050, L504.2610, L100.0100, L501.1400 ####[facility] [address] [place], [address] WBC (Bld) [#/Vol] 10.1 10*3/uL Normal 4.4-11.0 [facility] Comment on above: Performed By: #### L 500.4050, L504.2610, L100.0100, L501.1400 ####[facility] [address] [place], [address] Comprehensive Metabolic Prof [facility] 02-22-2025 Albumin [Mass/Vol] 3.4 g/dL Low 3.5-5.0 [facility] Comment on above: Performed By: #### L 500.4050, L504.2610, L100.0100, L501.1400 ####[facility] [address] [place], [address] Albumin/Globulin [Mass ratio] 1.1 {ratio} Normal 0.9-2.4 [facility] Comment on above: Performed By: #### L 500.4050, L504.2610, L100.0100, L501.1400 ####[facility] [address] [place], [address] ALK PHOS 113 U/L High 35-104 [facility] Comment on above: Performed By: #### L 500.4050, L504.2610, L100.0100, L501.1400 ####[facility] [address] [place], [address] ALT [Catalytic activity/Vol] 18 U/L Normal <=34 [facility] Comment on above: Performed By: #### L 500.4050, L504.2610, L100.0100, L501.1400 ####[facility] [address] [place], [address] AST [Catalytic activity/Vol] 34 U/L High <=31 [facility] Comment on above: Performed By: #### L 500.4050, L504.2610, L100.0100, L501.1400 ####[facility] [address] [place], [address] Bilirubin [Mass/Vol] 0.23 mg/dL Normal 0.00-1.30 [facility] Comment on above: Performed By: #### L 500.4050, L504.2610, L100.0100, L501.1400 ####[facility] [address] [place], [address] BUN/CRE 9.7 RATIO Low 10-20 [facility] Comment on above: Performed By: #### L 500.4050, L504.2610, L100.0100, L501.1400 ####[facility] [address] [place], [address] Calcium [Mass/Vol] 9.8 mg/dL Normal 7.6-11.0 [facility] Comment on above: Performed By: #### L 500.4050, L504.2610, L100.0100, L501.1400 ####[facility] [address] [place], [address] Chloride [Moles/Vol] 103 mmol/L Normal 98-108 [facility] Comment on above: Performed By: #### L 500.4050, L504.2610, L100.0100, L501.1400 ####[facility] [address] [place], [address] CO2 [Moles/Vol] 18.6 mmol/L Low 21.0-32.0 [facility] Comment on above: Performed By: #### L 500.4050, L504.2610, L100.0100, L501.1400 ####[facility] [address] [place], [address] Creatinine [Mass/Vol] 0.77 mg/dL Normal 0.70-1.20 [facility] Comment on above: Performed By: #### L 500.4050, L504.2610, L100.0100, L501.1400 ####[facility] [address] [place], [address] GAP 12 Normal 5-15 [facility] Comment on above: Performed By: #### L 500.4050, L504.2610, L100.0100, L501.1400 ####[facility] [address] [place], [address] GFR/1.73 sq M.predicted among non-blacks MDRD (S/P/Bld) [Vol rate/Area] 111 mL/min/{1.73_m2} Normal >60 [facility] Comment on above: Result Comment: mL/m in/1.73m2 CKD-EPI Creatinine Equation (2020) Performed By: #### L 500.4050, L504.2610, L100.0100, L501.1400 ####[facility] [address] [place], [address] Globulin (S) [Mass/Vol] 3.2 g/dL Normal 2.2-4.2 [facility] Comment on above: Performed By: #### L 500.4050, L504.2610, L100.0100, L501.1400 ####[facility] [address] [place], [address] Glucose [Mass/Vol] 89 mg/dL Normal 70-99 [facility] Comment on above: Performed By: #### L 500.4050, L504.2610, L100.0100, L501.1400 ####[facility] [address] [place], [address] Potassium [Moles/Vol] 4.1 mmol/L Normal 3.3-5.1 [facility] Comment on above: Performed By: #### L 500.4050, L504.2610, L100.0100, L501.1400 ####[facility] [address] [place], [address] Sodium [Moles/Vol] 134 mmol/L Normal 133-145 [facility] Comment on above: Performed By: #### L 500.4050, L504.2610, L100.0100, L501.1400 ####[facility] [address] [place], [address] T PROT 6.6 g/dL Normal 5.9-8.4 [facility] Comment on above: Performed By: #### L 500.4050, L504.2610, L100.0100, L501.1400 ####[facility] [address] [place], [address] Urea nitrogen [Mass/Vol] 7 mg/dL Normal 4-19 [facility] Comment on above: Performed By: #### L 500.4050, L504.2610, L100.0100, L501.1400 ####[facility] [address] [place], [address] LDHon 02-22-2025 LDH 179 U/L Normal 84-246 [facility] Comment on above: Order Comment: 1 Performed By: #### L 500.4050, L504.2610, L100.0100, L501.1400 ####[facility] [address] [place], [address] Copier Technician Office Visit Reporton 02-22-2025 Copier Technician Office Visit Report Normal [facility] Protein+Creatinine Ratio,Uri neon 02-22-2025 PROT:CRE RATIO UNABLE TO CALCULATE Normal 0-200 [facility] Comment on above: Performed By: #### L 501.0900 ####[facility] [address] [place], [address] PROTEIN,UR.RAN. < 6.0 Normal 0.0-12.0 [facility] Comment on above: Performed By: #### L 501.0900 ####[facility] [address] [place], [address] UR CREAT 43.30 mg/dL Normal 28.00-217.00 [facility] Comment on above: Performed By: #### L 501.0900 ####[facility] [address] [place], [address] Uric Acidon 02-22-2025 URIC 6.1 mg/dL High 2.6-6.0 [facility] Comment on above: Result Comment: The drugs N-Acetylcysteine and Metamizole may falselydepress this assay. Performed By: #### L 500.4050, L504.2610, L100.0100, L501.1400 ####[facility] [address] [place], [address] (ROM) Rupture Of Membraneson 02-15-2025 ROM Negative Normal Negative [facility] Comment on above: Result Comment: Amni otic fluid not present indicates No Rupture of FetalMembranes at time of specimen collection. Performed By: #### L 205.1000 ####[facility] [address] [place], [address] Copier Technician Office Visit Reporton 02-09-2025 Copier Technician Office Visit Report Normal [facility] Gestational GTT 3HR 100gon 0 02-01-2025 GEST GTT 100gm High [facility] Comment on above: Order Comment: Y Result Comment: FAST ING 112 H Col: 02/01/25 [id number] TOLERANCE TEST FOR Reference Interval GESTATIONAL DIABETES Fasting <105 mg/dL 1 hour <190 mg/dl 2 hour <165 mg/dl 3 hour <145 mg/dl 1 HR GLU 210 H Col: 02/01/25 0857 2 HR GLU 225 H Col: 02/01/25 0952 3 HR GLU 176 H Col: 02/01/25 1056 Performed By: #### L 500.4710 ####[facility] [address] [place], [address] CBC W/Diff, Automatedon 12-31 Absolute Lymph 0.91 X10 3/uL Normal 0.83-4.51 [facility] Comment on above: Performed By: #### L 100.0100, L509.8002, L501.0250, BTS, L3890.6006 ####[facility] [address] [place], [address] Absolute Neut 8.5 X10 3/uL High 2.0-7.7 [facility] Comment on above: Performed By: #### L 100.0100, L509.8002, L501.0250, BTS, L3890.6006 ####[facility] [address] [place], [address] Basophils/100 WBC (Bld) 0.2 % Normal 0-1 [facility] Comment on above: Performed By: #### L 100.0100, L509.8002, L501.0250, BTS, L3890.6006 ####[facility] [address] [place], [address] Eosinophils/100 WBC (Bld) 0.8 % Normal 0-5 [facility] Comment on above: Performed By: #### L 100.0100, L509.8002, L501.0250, BTS, L3890.6006 ####[facility] [address] [place], [address] Erythrocyte distribution width (RBC) [Ratio] 12.7 % Normal 11.6-14.6 [facility] Comment on above: Performed By: #### L 100.0100, L509.8002, L501.0250, BTS, L3890.6006 ####[facility] [address] [place], [address] Hematocrit (Bld) [Volume fraction] 33.7 % Low 37-47 [facility] Comment on above: Performed By: #### L 100.0100, L509.8002, L501.0250, BTS, L3890.6006 ####[facility] [address] [place], [address] Hemoglobin (Bld) [Mass/Vol] 11.7 g/dL Low 12.0-15.0 [facility] Comment on above: Performed By: #### L 100.0100, L509.8002, L501.0250, BTS, L3890.6006 ####[facility] [address] [place], [address] IG% 0.900 Normal 0.0-0.9 [facility] Comment on above: Result Comment: IG% - Immature Granulocytes (promyelocytes, myelocytes andmetamyelocytes) > 1% indicates that a LEFT SHIFT is Present. Performed By: #### L 100.0100, L509.8002, L501.0250, BTS, L3890.6006 ####[facility] [address] [place], [address] Lymphocytes/100 WBC (Bld) 9.0 % Low 19-41 [facility] Comment on above: Performed By: #### L 100.0100, L509.8002, L501.0250, BTS, L3890.6006 ####[facility] [address] [place], [address] MCH (RBC) [Entitic mass] 31.2 pg Normal 27.0-32.0 [facility] Comment on above: Performed By: #### L 100.0100, L509.8002, L501.0250, BTS, L3890.6006 ####[facility] [address] [place], [address] MCHC (RBC) [Mass/Vol] 34.7 g/dL Normal 32-36 [facility] Comment on above: Performed By: #### L 100.0100, L509.8002, L501.0250, BTS, L3890.6006 ####[facility] [address] [place], [address] MCV (RBC) [Entitic vol] 89.9 fL Normal 81-99 [facility] Comment on above: Performed By: #### L 100.0100, L509.8002, L501.0250, BTS, L3890.6006 ####[facility] [address] [place], [address] Monocytes/100 WBC (Bld) 4.7 % Normal 0-10 [facility] Comment on above: Performed By: #### L 100.0100, L509.8002, L501.0250, BTS, L3890.6006 ####[facility] [address] [place], [address] Neutrophils/100 WBC (Bld) 84.4 % High 47-70 [facility] Comment on above: Performed By: #### L 100.0100, L509.8002, L501.0250, BTS, L3890.6006 ####[facility] [address] [place], [address] Nucleated RBC (Bld) [#/Vol] 0 10*3/uL Normal 0-5 [facility] Comment on above: Performed By: #### L 100.0100, L509.8002, L501.0250, BTS, L3890.6006 ####[facility] [address] [place], [address] Platelet mean volume (Bld) [Entitic vol] 10.7 fL Normal 6.2-12.0 [facility] Comment on above: Performed By: #### L 100.0100, L509.8002, L501.0250, BTS, L3890.6006 ####[facility] [address] [place], [address] Platelets (Bld) [#/Vol] 240 10*3/uL Normal 150-450 [facility] Comment on above: Performed By: #### L 100.0100, L509.8002, L501.0250, BTS, L3890.6006 ####[facility] [address] [place], [address] RBC (Bld) [#/Vol] 3.75 10*6/uL Low 4.2-5.4 [facility] Comment on above: Performed By: #### L 100.0100, L509.8002, L501.0250, BTS, L3890.6006 ####[facility] [address] [place], [address] RDW SD 41.4 fl Normal 35.1-43.9 [facility] Comment on above: Performed By: #### L 100.0100, L509.8002, L501.0250, BTS, L3890.6006 ####[facility] [address] [place], [address] WBC (Bld) [#/Vol] 10.1 10*3/uL Normal 4.4-11.0 [facility] Comment on above: Performed By: #### L 100.0100, L509.8002, L501.0250, BTS, L3890.6006 ####[facility] [address] [place], [place], [address] Glucose Challenge Gest 1H 50 hayley 01-24-2025 GLU GEST 50g 1H 151 mg/dL High 70-140 [facility] Comment on above: Performed By: #### L 100.0100, L509.8002, L501.0250, BTS, L3890.6006 ####[facility] [address] [place], [place], [address] HIVon 01-24-2025 HIV Non-Reactive Normal Nonreactive [facility] Comment on above: Result Comment: Non- ReactiveReactiveRepeatedly reactive samples must be confirmed according [facility] recommended confirmatory algorithms. The subresults foreither HIVAG or AHIV can be used as an aid in the selectionof the confirmation algorithm for reactive samples.Send out specimens with Reactive results to [facility] forconfirmation.Order the HIV antibody detection and differentiation:lc#[id number] Performed By: #### L 100.0100, L509.8002, L501.0250, BTS, L3890.6006 ####[facility] [address] [place], [place], [address] [employer] [employer] Office Visit Reporton 01-24-2025 Copier Technician Office Visit Report Normal [facility] Syphilis Antibodieson 2024 Syphilis Abs Non-Reactive Normal Nonreactive [facility] Comment on above: Performed By: #### L 100.0100, L509.8002, L501.0250, BTS, L3890.6006 ####[facility] [address] [place], [place], [address] Type AND Screenon 01-24-2025 Ab SCREEN GEL Negative Normal [facility] Comment on above: Order Comment: PN Performed By: #### L 100.0100, L509.8002, L501.0250, BTS, L3890.6006 ####[facility] [address] [place], [address] [employer]ier Techn[employer] Office Visit Reporton 01-06-2025 Copier Technician Office Visit Report Normal [facility] 24 HR UR Creatinine Clearanc yanet 12-29-2024 CREAT CLEARANCE 155 ml/min Normal 100-200 [facility] Comment on above: Order Comment: 3150 ML Performed By: #### L 500.4507, L500.9000, L501.1105 ####[facility] [address] [place], [address] Creatinine [Mass/Vol] 0.6 mg/dL Normal 0.6-1.0 [facility] Comment on above: Order Comment: 3150 ML Performed By: #### L 500.4507, L500.9000, L501.1105 ####[facility] [address] [place], [address] RANDOM UR TV 3150.0 ML Normal [facility] Comment on above: Order Comment: 3150 ML Performed By: #### L 500.4507, L500.9000, L501.1105 ####[facility] [address] [place], [address] Protein, Urine 24HRon 2024 UR COLLECT TIME 24.0 HOURS Normal 24.0 [facility] Comment on above: Order Comment: 3150 ML Performed By: #### L 500.4507, L500.9000, L501.1105 ####[facility] [address] [place], [address] UR TOTAL VOLUME 3150 mL Normal [facility] Comment on above: Order Comment: 3150 ML Performed By: #### L 500.4507, L500.9000, L501.1105 ####[facility] [address] [place], [address] Serum Creatinine AND GFRon 0 - Creatinine [Mass/Vol] 0.56 mg/dL Low 0.70-1.20 [facility] Comment on above: Performed By: #### L 500.4507, L500.9000, L501.1105 ####[facility] [address] [place], [address] GFR/1.73 sq M.predicted among non-blacks MDRD (S/P/Bld) [Vol rate/Area] 131 mL/min/{1.73_m2} Normal >60 [facility] Comment on above: Result Comment: mL/m in/1.73m2 CKD-EPI Creatinine Equation (2020) Performed By: #### L 500.4507, L500.9000, L501.1105 ####[facility] [address] [place], [address] CBC W/Diff, Automatedon 11-30 Absolute Lymph 1.31 X10 3/uL Normal 0.83-4.51 [facility] Comment on above: Performed By: #### L 501.0900, L500.4050, L100.0100 ####[facility] [address] [place], [address] Absolute Neut 8.8 X10 3/uL High 2.0-7.7 [facility] Comment on above: Performed By: #### L 501.0900, L500.4050, L100.0100 ####[facility] [address] [place], [address] Basophils/100 WBC (Bld) 0.2 % Normal 0-1 [facility] Comment on above: Performed By: #### L 501.0900, L500.4050, L100.0100 ####[facility] [address] [place], [address] Eosinophils/100 WBC (Bld) 0.8 % Normal 0-5 [facility] Comment on above: Performed By: #### L 501.0900, L500.4050, L100.0100 ####[facility] [address] [place], [address] Erythrocyte distribution width (RBC) [Ratio] 12.8 % Normal 11.6-14.6 [facility] Comment on above: Performed By: #### L 501.0900, L500.4050, L100.0100 ####[facility] [address] [place], [address] Hematocrit (Bld) [Volume fraction] 33.8 % Low 37-47 [facility] Comment on above: Performed By: #### L 501.0900, L500.4050, L100.0100 ####[facility] [address] [place], [address] Hemoglobin (Bld) [Mass/Vol] 11.9 g/dL Low 12.0-15.0 [facility] Comment on above: Performed By: #### L 501.0900, L500.4050, L100.0100 ####[facility] [address] [place], [address] IG% 0.500 Normal 0.0-0.9 [facility] Comment on above: Result Comment: IG% - Immature Granulocytes (promyelocytes, myelocytes andmetamyelocytes) > 1% indicates that a LEFT SHIFT is Present. Performed By: #### L 501.0900, L500.4050, L100.0100 ####[facility] [address] [place], [address] Lymphocytes/100 WBC (Bld) 12.0 % Low 19-41 [facility] Comment on above: Performed By: #### L 501.0900, L500.4050, L100.0100 ####[facility] [address] [place], [address] MCH (RBC) [Entitic mass] 32.2 pg High 27.0-32.0 [facility] Comment on above: Performed By: #### L 501.0900, L500.4050, L100.0100 ####[facility] [address] [place], [address] MCHC (RBC) [Mass/Vol] 35.2 g/dL Normal 32-36 [facility] Comment on above: Performed By: #### L 501.0900, L500.4050, L100.0100 ####[facility] [address] [place], [address] MCV (RBC) [Entitic vol] 91.4 fL Normal 81-99 [facility] Comment on above: Performed By: #### L 501.0900, L500.4050, L100.0100 ####[facility] [address] [place], [address] Monocytes/100 WBC (Bld) 6.2 % Normal 0-10 [facility] Comment on above: Performed By: #### L 501.0900, L500.4050, L100.0100 ####[facility] [address] [place], [address] Neutrophils/100 WBC (Bld) 80.3 % High 47-70 [facility] Comment on above: Performed By: #### L 501.0900, L500.4050, L100.0100 ####[facility] [address] [place], [address] Nucleated RBC (Bld) [#/Vol] 0 10*3/uL Normal 0-5 [facility] Comment on above: Performed By: #### L 501.0900, L500.4050, L100.0100 ####[facility] [address] [place], [address] Platelet mean volume (Bld) [Entitic vol] 10.4 fL Normal 6.2-12.0 [facility] Comment on above: Performed By: #### L 501.0900, L500.4050, L100.0100 ####[facility] [address] [place], [address] Platelets (Bld) [#/Vol] 233 10*3/uL Normal 150-450 [facility] Comment on above: Performed By: #### L 501.0900, L500.4050, L100.0100 ####[facility] [address] [place], [address] RBC (Bld) [#/Vol] 3.70 10*6/uL Low 4.2-5.4 [facility] Comment on above: Performed By: #### L 501.0900, L500.4050, L100.0100 ####[facility] [address] [place], [address] RDW SD 42.2 fl Normal 35.1-43.9 [facility] Comment on above: Performed By: #### L 501.0900, L500.4050, L100.0100 ####[facility] [address] [place], [address] WBC (Bld) [#/Vol] 10.9 10*3/uL Normal 4.4-11.0 [facility] Comment on above: Performed By: #### L 501.0900, L500.4050, L100.0100 ####[facility] [address] [place], [address] Comprehensive Metabolic Prof ilon 12-26-2024 Albumin [Mass/Vol] 3.5 g/dL Normal 3.5-5.0 [facility] Comment on above: Performed By: #### L 501.0900, L500.4050, L100.0100 ####[facility] [address] [place], [address] Albumin/Globulin [Mass ratio] 1.1 {ratio} Normal 0.9-2.4 [facility] Comment on above: Performed By: #### L 501.0900, L500.4050, L100.0100 ####[facility] [address] [place], [address] ALK PHOS 67 U/L Normal 35-104 [facility] Comment on above: Performed By: #### L 501.0900, L500.4050, L100.0100 ####[facility] [address] [place], [address] ALT [Catalytic activity/Vol] 9 U/L Normal <=34 [facility] Comment on above: Performed By: #### L 501.0900, L500.4050, L100.0100 ####[facility] [address] [place], [address] AST [Catalytic activity/Vol] 15 U/L Normal <=31 [facility] Comment on above: Performed By: #### L 501.0900, L500.4050, L100.0100 ####[facility] [address] [place], [address] Bilirubin [Mass/Vol] 0.18 mg/dL Normal 0.00-1.30 [facility] Comment on above: Performed By: #### L 501.0900, L500.4050, L100.0100 ####[facility] [address] [place], [address] BUN/CRE 10.2 RATIO Normal 10-20 [facility] Comment on above: Performed By: #### L 501.0900, L500.4050, L100.0100 ####[facility] [address] [place], [address] Calcium [Mass/Vol] 9.4 mg/dL Normal 7.6-11.0 [facility] Comment on above: Performed By: #### L 501.0900, L500.4050, L100.0100 ####[facility] [address] [place], [address] Chloride [Moles/Vol] 103 mmol/L Normal 98-108 [facility] Comment on above: Performed By: #### L 501.0900, L500.4050, L100.0100 ####[facility] [address] [place], [address] CO2 [Moles/Vol] 21.3 mmol/L Normal 21.0-32.0 [facility] Comment on above: Performed By: #### L 501.0900, L500.4050, L100.0100 ####[facility] [address] [place], [address] Creatinine [Mass/Vol] 0.50 mg/dL Low 0.70-1.20 [facility] Comment on above: Performed By: #### L 501.0900, L500.4050, L100.0100 ####[facility] [address] [place], [address] GAP 11 Normal 5-15 [facility] Comment on above: Performed By: #### L 501.0900, L500.4050, L100.0100 ####[facility] [address] [place], [address] GFR/1.73 sq M.predicted among non-blacks MDRD (S/P/Bld) [Vol rate/Area] 135 mL/min/{1.73_m2} Normal >60 [facility] Comment on above: Result Comment: mL/m in/1.73m2 CKD-EPI Creatinine Equation (2020) Performed By: #### L 501.0900, L500.4050, L100.0100 ####[facility] [address] [place], [address] Globulin (S) [Mass/Vol] 3.1 g/dL Normal 2.2-4.2 [facility] Comment on above: Performed By: #### L 501.0900, L500.4050, L100.0100 ####[facility] [address] [place], [address] Glucose [Mass/Vol] 98 mg/dL Normal 70-99 [facility] Comment on above: Performed By: #### L 501.0900, L500.4050, L100.0100 ####[facility] [address] [place], [address] Potassium [Moles/Vol] 3.9 mmol/L Normal 3.3-5.1 [facility] Comment on above: Performed By: #### L 501.0900, L500.4050, L100.0100 ####[facility] [address] [place], [address] Sodium [Moles/Vol] 136 mmol/L Normal 133-145 [facility] Comment on above: Performed By: #### L 501.0900, L500.4050, L100.0100 ####[facility] [address] [place], [address] T PROT 6.5 g/dL Normal 5.9-8.4 [facility] Comment on above: Performed By: #### L 501.0900, L500.4050, L100.0100 ####[facility] [address] [place], [address] Urea nitrogen [Mass/Vol] 5 mg/dL Normal 4-19 [facility] Comment on above: Performed By: #### L 501.0900, L500.4050, L100.0100 ####[facility] [address] [place], [address] Copier Technician Office Visit Reporton 12-26-2024 Copier Technician Office Visit Report Normal [facility] Protein+Creatinine Ratio,Uri neon 12-26-2024 PROT:CRE RATIO 315 mg/g CRE High 0-200 [facility] Comment on above: Performed By: #### L 501.0900, L500.4050, L100.0100 ####[facility] [address] [place], [address] Protein (U) [Mass/Vol] 8.4 mg/dL Normal 0.0-12.0 [facility] Comment on above: Performed By: #### L 501.0900, L500.4050, L100.0100 ####[facility] [address] [place], [address] UR CREAT 26.60 mg/dL Low 28.00-217.00 [facility] Comment on above: Performed By: #### L 501.0900, L500.4050, L100.0100 ####[facility] [address] [place], [address] Urine Cultureon 12-08-2024 URC Mixed Gram Positive Organisms [place] Count 25,000-50,000 MIXC Mixed contaminants. Submit a new specimen if indicated. Normal [facility] Comment on above: Performed By: #### M 100.2200 ####[facility] [address] [place], [address] Copier Technician Office Visit Reporton 12-07-2024 Copier Technician Office Visit Report Normal [facility] CBC W/Diff, Automatedon Absolute Lymph 1.34 X10 3/uL Normal 0.83-4.51 [facility] Comment on above: Performed By: #### L 500.4050, L100.0100 ####[facility] [address] [place], [address] Absolute Neut 8.6 X10 3/uL High 2.0-7.7 [facility] Comment on above: Performed By: #### L 500.4050, L100.0100 ####[facility] [address] [place], [address] Basophils/100 WBC (Bld) 0.2 % Normal 0-1 [facility] Comment on above: Performed By: #### L 500.4050, L100.0100 ####[facility] [address] [place], [address] Eosinophils/100 WBC (Bld) 0.7 % Normal 0-5 [facility] Comment on above: Performed By: #### L 500.4050, L100.0100 ####[facility] [address] [place], [address] Erythrocyte distribution width (RBC) [Ratio] 13.1 % Normal 11.6-14.6 [facility] Comment on above: Performed By: #### L 500.4050, L100.0100 ####[facility] [address] [place], [address] Hematocrit (Bld) [Volume fraction] 34.3 % Low 37-47 [facility] Comment on above: Performed By: #### L 500.4050, L100.0100 ####[facility] [address] [place], [address] Hemoglobin (Bld) [Mass/Vol] 11.9 g/dL Low 12.0-15.0 [facility] Comment on above: Performed By: #### L 500.4050, L100.0100 ####[facility] [address] [place], [address] IG% 0.600 Normal 0.0-0.9 [facility] Comment on above: Result Comment: IG% - Immature Granulocytes (promyelocytes, myelocytes andmetamyelocytes) > 1% indicates that a LEFT SHIFT is Present. Performed By: #### L 500.4050, L100.0100 ####[facility] [address] [place], [address] Lymphocytes/100 WBC (Bld) 12.4 % Low 19-41 [facility] Comment on above: Performed By: #### L 500.4050, L100.0100 ####[facility] [address] [place], [address] MCH (RBC) [Entitic mass] 32.3 pg High 27.0-32.0 [facility] Comment on above: Performed By: #### L 500.4050, L100.0100 ####[facility] [address] [place], [address] MCHC (RBC) [Mass/Vol] 34.7 g/dL Normal 32-36 [facility] Comment on above: Performed By: #### L 500.4050, L100.0100 ####[facility] [address] [place], [address] MCV (RBC) [Entitic vol] 93.2 fL Normal 81-99 [facility] Comment on above: Performed By: #### L 500.4050, L100.0100 ####[facility] [address] [place], [address] Monocytes/100 WBC (Bld) 6.9 % Normal 0-10 [facility] Comment on above: Performed By: #### L 500.4050, L100.0100 ####[facility] [address] [place], [address] Neutrophils/100 WBC (Bld) 79.2 % High 47-70 [facility] Comment on above: Performed By: #### L 500.4050, L100.0100 ####[facility] [address] [place], [address] Nucleated RBC (Bld) [#/Vol] 0 10*3/uL Normal 0-5 [facility] Comment on above: Performed By: #### L 500.4050, L100.0100 ####[facility] [address] [place], [address] Platelet mean volume (Bld) [Entitic vol] 10.6 fL Normal 6.2-12.0 [facility] Comment on above: Performed By: #### L 500.4050, L100.0100 ####[facility] [address] [place], [address] Platelets (Bld) [#/Vol] 246 10*3/uL Normal 150-450 [facility] Comment on above: Performed By: #### L 500.4050, L100.0100 ####[facility] [address] [place], [address] RBC (Bld) [#/Vol] 3.68 10*6/uL Low 4.2-5.4 [facility] Comment on above: Performed By: #### L 500.4050, L100.0100 ####[facility] [address] [place], [address] RDW SD 44.2 fl High 35.1-43.9 [facility] Comment on above: Performed By: #### L 500.4050, L100.0100 ####[facility] [address] [place], [address] WBC (Bld) [#/Vol] 10.8 10*3/uL Normal 4.4-11.0 [facility] Comment on above: Performed By: #### L 500.4050, L100.0100 ####[facility] [address] [place], [address] Comprehensive Metabolic Prof ilon 12-06-2024 Albumin [Mass/Vol] 3.4 g/dL Low 3.5-5.0 [facility] Comment on above: Performed By: #### L 500.4050, L100.0100 ####[facility] [address] [place], [address] Albumin/Globulin [Mass ratio] 1.1 {ratio} Normal 0.9-2.4 [facility] Comment on above: Performed By: #### L 500.4050, L100.0100 ####[facility] [address] [place], [address] ALK PHOS 70 U/L Normal 35-104 [facility] Comment on above: Performed By: #### L 500.4050, L100.0100 ####[facility] [address] [place], [address] ALT [Catalytic activity/Vol] 10 U/L Normal <=34 [facility] Comment on above: Performed By: #### L 500.4050, L100.0100 ####[facility] [address] [place], [address] AST [Catalytic activity/Vol] 17 U/L Normal <=31 [facility] Comment on above: Performed By: #### L 500.4050, L100.0100 ####[facility] [address] [place], [address] BUN/CRE 7.7 RATIO Low 10-20 [facility] Comment on above: Performed By: #### L 500.4050, L100.0100 ####[facility] [address] [place], [address] Calcium [Mass/Vol] 8.9 mg/dL Normal 7.6-11.0 [facility] Comment on above: Performed By: #### L 500.4050, L100.0100 ####[facility] [address] [place], [address] Chloride [Moles/Vol] 104 mmol/L Normal 98-108 [facility] Comment on above: Performed By: #### L 500.4050, L100.0100 ####[facility] [address] [place], [address] CO2 [Moles/Vol] 23.0 mmol/L Normal 21.0-32.0 [facility] Comment on above: Performed By: #### L 500.4050, L100.0100 ####[facility] [address] [place], [address] Creatinine [Mass/Vol] 0.52 mg/dL Low 0.70-1.20 [facility] Comment on above: Performed By: #### L 500.4050, L100.0100 ####[facility] [address] [place], [address] ECRCL 199.56 ml/min Normal 50-250 [facility] Comment on above: Performed By: #### L 500.4050, L100.0100 ####[facility] [address] [place], [address] GAP 10 Normal 5-15 [facility] Comment on above: Performed By: #### L 500.4050, L100.0100 ####[facility] [address] [place], [address] GFR/1.73 sq M.predicted among non-blacks MDRD (S/P/Bld) [Vol rate/Area] 134 mL/min/{1.73_m2} Normal >60 [facility] Comment on above: Result Comment: mL/m in/1.73m2 CKD-EPI Creatinine Equation (2020) Performed By: #### L 500.4050, L100.0100 ####[facility] [address] [place], [address] Globulin (S) [Mass/Vol] 3.0 g/dL Normal 2.2-4.2 [facility] Comment on above: Performed By: #### L 500.4050, L100.0100 ####[facility] [address] [place], [address] Glucose [Mass/Vol] 94 mg/dL Normal 70-99 [facility] Comment on above: Performed By: #### L 500.4050, L100.0100 ####[facility] [address] [place], [address] Potassium [Moles/Vol] 3.6 mmol/L Normal 3.3-5.1 [facility] Comment on above: Performed By: #### L 500.4050, L100.0100 ####[facility] [address] [place], [address] Sodium [Moles/Vol] 137 mmol/L Normal 133-145 [facility] Comment on above: Performed By: #### L 500.4050, L100.0100 ####[facility] [address] [place], [address] T BILI < 0.15 Normal 0.00-1.30 [facility] Comment on above: Performed By: #### L 500.4050, L100.0100 ####[facility] [address] [place], [address] T PROT 6.5 g/dL Normal 5.9-8.4 [facility] Comment on above: Performed By: #### L 500.4050, L100.0100 ####[facility] [address] [place], [address] Urea nitrogen [Mass/Vol] 4 mg/dL Normal 4-19 [facility] Comment on above: Performed By: #### L 500.4050, L100.0100 ####[facility] [address] [place], [address] Emergency Department Summary on 12-06-2024 Emergency Department Summary Normal [facility] Urinalysis, Completeon 12-06 AMORPHOUS 1+ Normal [facility] Comment on above: Order Comment: CLEAN CATCH Performed By: #### L 400.0001 ####[facility] [address] [place], [address] BACTERIA 1+ /hpf Normal None Seen [facility] Comment on above: Order Comment: CLEAN CATCH Performed By: #### L 400.0001 ####[facility] [address] [place], [address] EPI,SQUAMOUS 10-25 SEEN Normal 5-10 [facility] Comment on above: Order Comment: CLEAN CATCH Performed By: #### L 400.0001 ####[facility] [address] [place], [address] RBC 0-5 SEEN Normal 0-5 [facility] Comment on above: Order Comment: CLEAN CATCH Performed By: #### L 400.0001 ####[facility] [address] [place], [address] WBC 10-25 SEEN Normal 0-5 [facility] Comment on above: Order Comment: CLEAN CATCH Performed By: #### L 400.0001 ####[facility] [address] [place], [address] Mucus Ql (Urine sed) 0 SEEN Normal [facility] Comment on above: Order Comment: CLEAN CATCH Performed By: #### L 400.0001 ####[facility] [address] [place], [address] Copier Technician Office Visit Reporton 11-09-2024 Copier Technician Office Visit Report Normal [facility] Chlamydia/GC SANTY aptimaon CHLAMY,NUC ACID Negative Normal Negative [facility] Comment on above: Performed By: #### L 7000.1800 ####[facility] [address] [place], [address] GC BY NUC ACID Negative Normal Negative [facility] Comment on above: Result Comment: Perf ormed at: =G - [facility] [address] StreetWaqas vasquez, [place] [id number] Director: Monisha Ross MD, Phone: [phone] Performed By: #### L 7000.1800 ####[facility] [address] [place], [address] Copier Technician Office Visit Reporton 11-04-2024 Copier Technician Office Visit Report Normal [facility] Type AND Screenon 11-04-2024 Ab SCREEN GEL Negative Normal [facility] Comment on above: Order Comment: PN Performed By: #### B TS ####[facility] [address] [place], [address] Copier Technician Office Visit Reporton 10-13-2024 Copier Technician Office Visit Report Normal [facility] Copier Technician Office Visit Reporton 10-05-2024 Copier Technician Office Visit Report Normal [facility] CBC W/Diff, Automatedon 08-31 Absolute Lymph 1.38 X10 3/uL Normal 0.83-4.51 [facility] Comment on above: Performed By: #### L 3890.6006, L509.8002, L509.4006, BTS, L3890.6301, L100.0100, L3890.6102, L900.0098 ####[facility] [address] [place], [place], [id number] Absolute Neut 9.1 X10 3/uL High 2.0-7.7 [facility] Comment on above: Performed By: #### L 3890.6006, L509.8002, L509.4006, BTS, L3890.6301, L100.0100, L3890.6102, L900.0098 ####[facility] [address] [place], [address] Basophils/100 WBC (Bld) 0.3 % Normal 0-1 [facility] Comment on above: Performed By: #### L 3890.6006, L509.8002, L509.4006, BTS, L3890.6301, L100.0100, L3890.6102, L900.0098 ####[facility] [address] [place], [address] Eosinophils/100 WBC (Bld) 0.8 % Normal 0-5 [facility] Comment on above: Performed By: #### L 3890.6006, L509.8002, L509.4006, BTS, L3890.6301, L100.0100, L3890.6102, L900.0098 ####[facility] [address] [place], [address] Erythrocyte distribution width (RBC) [Ratio] 13.6 % Normal 11.6-14.6 [facility] Comment on above: Performed By: #### L 3890.6006, L509.8002, L509.4006, BTS, L3890.6301, L100.0100, L3890.6102, L900.0098 ####[facility] [address] [place], [address] Hematocrit (Bld) [Volume fraction] 38.6 % Normal 37-47 [facility] Comment on above: Performed By: #### L 3890.6006, L509.8002, L509.4006, BTS, L3890.6301, L100.0100, L3890.6102, L900.0098 ####[facility] [address] [place], [address] Hemoglobin (Bld) [Mass/Vol] 13.3 g/dL Normal 12.0-15.0 [facility] Comment on above: Performed By: #### L 3890.6006, L509.8002, L509.4006, BTS, L3890.6301, L100.0100, L3890.6102, L900.0098 ####[facility] [address] [place], [address] IG% 0.500 Normal 0.0-0.9 [facility] Comment on above: Result Comment: IG% - Immature Granulocytes (promyelocytes, myelocytes andmetamyelocytes) > 1% indicates that a LEFT SHIFT is Present. Performed By: #### L 3890.6006, L509.8002, L509.4006, BTS, L3890.6301, L100.0100, L3890.6102, L900.0098 ####[facility] [address] [place], [address] Lymphocytes/100 WBC (Bld) 12.0 % Low 19-41 [facility] Comment on above: Performed By: #### L 3890.6006, L509.8002, L509.4006, BTS, L3890.6301, L100.0100, L3890.6102, L900.0098 ####[facility] [address] [place], [address] MCH (RBC) [Entitic mass] 30.6 pg Normal 27.0-32.0 [facility] Comment on above: Performed By: #### L 3890.6006, L509.8002, L509.4006, BTS, L3890.6301, L100.0100, L3890.6102, L900.0098 ####[facility] [address] [place], [address] MCHC (RBC) [Mass/Vol] 34.5 g/dL Normal 32-36 [facility] Comment on above: Performed By: #### L 3890.6006, L509.8002, L509.4006, BTS, L3890.6301, L100.0100, L3890.6102, L900.0098 ####[facility] [address] [place], [address] MCV (RBC) [Entitic vol] 88.7 fL Normal 81-99 [facility] Comment on above: Performed By: #### L 3890.6006, L509.8002, L509.4006, BTS, L3890.6301, L100.0100, L3890.6102, L900.0098 ####[facility] [address] [place], [address] Monocytes/100 WBC (Bld) 7.5 % Normal 0-10 [facility] Comment on above: Performed By: #### L 3890.6006, L509.8002, L509.4006, BTS, L3890.6301, L100.0100, L3890.6102, L900.0098 ####[facility] [address] [place], [address] Neutrophils/100 WBC (Bld) 78.9 % High 47-70 [facility] Comment on above: Performed By: #### L 3890.6006, L509.8002, L509.4006, BTS, L3890.6301, L100.0100, L3890.6102, L900.0098 ####[facility] [address] [place], [address] Nucleated RBC (Bld) [#/Vol] 0 10*3/uL Normal 0-5 [facility] Comment on above: Performed By: #### L 3890.6006, L509.8002, L509.4006, BTS, L3890.6301, L100.0100, L3890.6102, L900.0098 ####[facility] [address] [place], [address] Platelet mean volume (Bld) [Entitic vol] 10.6 fL Normal 6.2-12.0 [facility] Comment on above: Performed By: #### L 3890.6006, L509.8002, L509.4006, BTS, L3890.6301, L100.0100, L3890.6102, L900.0098 ####[facility] [address] [place], [address] Platelets (Bld) [#/Vol] 274 10*3/uL Normal 150-450 [facility] Comment on above: Performed By: #### L 3890.6006, L509.8002, L509.4006, BTS, L3890.6301, L100.0100, L3890.6102, L900.0098 ####[facility] [address] [place], [address] RBC (Bld) [#/Vol] 4.35 10*6/uL Normal 4.2-5.4 [facility] Comment on above: Performed By: #### L 3890.6006, L509.8002, L509.4006, BTS, L3890.6301, L100.0100, L3890.6102, L900.0098 ####[facility] [address] [place], [address] RDW SD 44.1 fl High 35.1-43.9 [facility] Comment on above: Performed By: #### L 3890.6006, L509.8002, L509.4006, BTS, L3890.6301, L100.0100, L3890.6102, L900.0098 ####[facility] [address] [place], [address] WBC (Bld) [#/Vol] 11.5 10*3/uL High 4.4-11.0 [facility] Comment on above: Performed By: #### L 3890.6006, L509.8002, L509.4006, BTS, L3890.6301, L100.0100, L3890.6102, L900.0098 ####[facility] [address] [place], [place], [id number] HIVon 09-19-2024 HIV Non-Reactive Normal Nonreactive [facility] Comment on above: Result Comment: Non- ReactiveReactiveRepeatedly reactive samples must be confirmed according [facility] recommended confirmatory algorithms. The subresults foreither HIVAG or AHIV can be used as an aid in the selectionof the confirmation algorithm for reactive samples.Send [facility] specimens with [facility].Order the HIV antibody detection and differentiation:#[id number] Performed By: #### L 3890.6006, L509.8002, L509.4006, BTS, L3890.6301, L100.0100, L3890.6102, L900.0098 ####[facility] [address] [place], [address] Hepatitis C Antibodyon 09-19 Hepatitis C Ab Non-Reactive Normal Nonreactive [facility] Comment on above: Result Comment: Reac tive: Presumptive evidence of antibodies to HCV. [facility] testing.Non-Reactive: Antibodies to HCV were not detected; does notexclude the possibility of exposure to HCVReactive Results are presumptive evidence of antibodies toHCV. Follow CDC recommendations for supplemental testing.Order confirmation testing: HCV Quant by PCR testing -HCVPCR #[id number] Non Reactive: < 0.8 Equivocal: >/= 0.8 to < 1.0 Reactive: >/= 1.0The [facility] requires that a reactive/equivocal HCV antibodyresult be sent out for confirmation. HCV Quant by PCRtesting. Performed By: #### L 3890.6006, L509.8002, L509.4006, BTS, L3890.6301, L100.0100, L3890.6102, L900.0098 ####[facility] [address] [place], [place], [address] L3890.6102on 09-19-2024 HEP B Surf Ag Non-Reactive Normal Nonreactive [facility] Comment on above: Result Comment: Reac tive: Presumptive evidence of HBV. Repeatedly reactivesamples must be confirmed using a neutralization test([employer] HBsAg Confirmatory Test)Non-Reactive: HBsAg not detected; does not exclude thepossibility of exposure to HBV Performed By: #### L 3890.6006, L509.8002, L509.4006, BTS, L3890.6301, L100.0100, L3890.6102, L900.0098 ####[facility] [address] [place], [address] L509.4006on 09-19-2024 Rubella IgG REAC Normal Nonreactive [facility] Comment on above: Result Comment: Anti body Result: InterpretationNon-Reactive: Non-ImmuneReactive: ImmuneThe following results were obtained with the ElecsysRubella IgG assay. Results from assays of othermanufacturers cannot be used interchangeably. Performed By: #### L 3890.6006, L509.8002, L509.4006, BTS, L3890.6301, L100.0100, L3890.6102, L900.0098 ####[facility] [address] [place], [place], [id number] NATERAon 09-19-2024 NATURA SEE SCANNED REPORT Normal [facility] Comment on above: Performed By: #### L 3890.6006, L509.8002, L509.4006, BTS, L3890.6301, L100.0100, L3890.6102, L900.0098 ####[facility] [address] [place], [address] Syphilis Antibodieson 2024 Syphilis Abs Non-Reactive Normal Nonreactive [facility] Comment on above: Performed By: #### L 3890.6006, L509.8002, L509.4006, BTS, L3890.6301, L100.0100, L3890.6102, L900.0098 ####[facility] [address] [place], [address] Type AND Screenon 09-19-2024 Ab SCREEN GEL Negative Normal [facility] Comment on above: Order Comment: PN Performed By: #### L 3890.6006, L509.8002, L509.4006, BTS, L3890.6301, L100.0100, L3890.6102, L900.0098 ####[facility] [address] [place], [address] Copier Technician Office Visit Reporton 09-14-2024 Copier Technician Office Visit Report Normal [facility] Transvaginal w/Preg USon Transvaginal w/Preg US Normal [facility] Copier Technician Office Visit Reporton 08-24-2024 Copier Technician Office Visit Report Normal [facility] Urine Cultureon 08-21-2024 URC Below infection leve l. Mixed Gram Positive Organisms [place] Count <1000 MIXC Mixed contaminants. Submit a new specimen if indicated. Normal [facility] Comment on above: Performed By: #### L 505.5000, M1 ####[facility] [address] [place], [address] Copier Technician Office Visit Reporton 08-19-2024 Copier Technician Office Visit Report Normal [facility] Urine Drug Screen (VISTA)on 08-19-2024 AMPHETAMINES Negative Normal <1000 ng/mL [facility] Comment on above: Order Comment: UNK Performed By: #### L 505.5000, M1.2199 ####[facility] [address] [place], [address] BARBITIURATES Negative Normal < 200 ng/mL [facility] Comment on above: Order Comment: UNK Performed By: #### L 505.5000, M1.0 ####[facility] [address] [place], [address] BENZODIAZIPINE Negative Normal < 200 ng/mL [facility] Comment on above: Order Comment: UNK Performed By: #### L 505.5000, M100.2200 ####[facility] [address] [place], [address] BUP Ur Drug Scr Negative Normal < 200 ng/mL [facility] Comment on above: Order Comment: UNK Performed By: #### L 505.5000, 00.2200 ####[facility] [address] [place], [address] COCAINE Negative Normal < 300 ng/mL [facility] Comment on above: Order Comment: UNK Performed By: #### L 505.5000, .0 ####[facility] [address] [place], [address] Fentanyl Negative Normal [facility] Comment on above: Order Comment: UNK Performed By: #### L 505.5000, 0 ####[facility] [address] [place], [address] METHADONE Negative Normal < 300 ng/mL [facility] Comment on above: Order Comment: UNK Performed By: #### L 505.5000, ####[facility] [address] [place], [address] OPIATES Negative Normal < 300 ng/mL [facility] Comment on above: Order Comment: UNK Performed By: #### L 505.5000, .0 ####[facility] [address] [place], [address] OXYCODONE Negative Normal < 100 ng/mL [facility] Comment on above: Order Comment: UNK Performed By: #### L 505.5000, .2199 ####[facility] [address] [place], [address] PCP Negative Normal < 25 ng/mL [facility] Comment on above: Order Comment: UNK Performed By: #### L 505.5000, .0 ####[facility] [address] [place], [address] THC Negative Normal < 50 ng/mL [facility] Comment on above: Order Comment: UNK Performed By: #### L 505.5000, M100.2200 ####[facility] [address] [place], [address] B-HCG SerPl-[place]Cn[place] 5 [place] [address].0 m[IU]/mL High <5.0 [facility] Comment on above: Order Comment: Speci men Type: BLOOD SPECIMENOrdering Facility: [facility] Address: [address] [place] [address] Result Comment: DIEGO TITATIVE HCG NORMAL RANGES Weeks of Gestation (Weeks Since LMP) 3 Weeks (5.8-71.2 mIU/mL) 4 Weeks (9.5-750 mIU/mL) 5 Weeks (217-7138 mIU/mL) 6 Weeks (158-63683 mIU/mL) 7 Weeks (3697-934853 mIU/mL) 8 Weeks (85929-524398 mIU/mL) 9 Weeks (44735-399502 mIU/mL) 10 Weeks (15471-086209 mIU/mL) 12 Weeks (85994-995593 mIU/mL) Referenced to 4th IS of [facility] Performed By: #### 2 1198-7 ####[facility] LABCLIA [id number] [address] [place] B-HCG SerPl-[place] 5 [place] [address].0 m[IU]/mL High <5.0 [facility] Comment on above: Order Comment: Speci men Type: BLOOD SPECIMENOrdering Facility: [facility] Address: [address] [place] [address] Result Comment: DIEGO TITATIVE HCG NORMAL RANGES Weeks of Gestation (Weeks Since LMP) 3 Weeks (5.8-71.2 mIU/mL) 4 Weeks (9.5-750 mIU/mL) 5 Weeks (217-7138 mIU/mL) 6 Weeks (158-63538 mIU/mL) 7 Weeks (3697-379286 mIU/mL) 8 Weeks (42590-686695 mIU/mL) 9 Weeks (29848-356991 mIU/mL) 10 Weeks (70658-697520 mIU/mL) 12 Weeks (58957-095077 mIU/mL) Referenced to 4th IS of [facility] Performed By: #### 2 1198-7 ####[facility] LABCLIA [id number] [address] OF [facility] CNPNon 08-12-2024 CNPN Telephone (OBGYWM) ALEJANDRA KIRAN ([id number]) 2 F Date Time Provider Department 08/12/24 [...] Status:Closed by DASHA WELSH on 08/12/24 Normal [facility] B-HCG [facility]-aCncon 5 HCG.beta subunit Qn 8329.0 m[IU]/mL High <5.0 [facility] Comment on above: Order Comment: Speci men Type: BLOOD SPECIMENOrdering Facility: [facility] Address: [address] [place] [address] Result Comment: DIEGO TITATIVE HCG NORMAL RANGES Weeks of Gestation (Weeks Since LMP) 3 Weeks (5.8-71.2 mIU/mL) 4 Weeks (9.5-750 mIU/mL) 5 Weeks (217-7138 mIU/mL) 6 Weeks (158-91116 mIU/mL) 7 Weeks (3697-755664 mIU/mL) 8 Weeks (42716-921231 mIU/mL) 9 Weeks (22101-921649 mIU/mL) 10 Weeks (38861-297154 mIU/mL) 12 Weeks (34170-053025 mIU/mL) Referenced to 4th IS of [facility] Performed By: #### 2 1198-7 ####[facility] LABCLIA [id number] [place] [address] [place] Bacteria Ur Culton Bacteria identified Cx Nom (U) ORGANISM ID: 1 10,000 -<50,000 CFU/ml Normal urogenital jhony Normal [facility] Comment on above: Performed By: #### 6 30-4 ####[facility] LABCLIA [id number] [place] [address] [place] C. trachomatis+N. gonorrhoea e DNA SANTY+probe Ql (Unsp spec)on 08-11-2024 C. trachomatis rRNA SANTY+probe Ql (Unsp spec) Not detected Normal Not detected [facility] Comment on above: Order Comment: Speci men Type: SWABOrdering Facility: [facility] Address: [address] [place] [address] Performed By: #### 3 6902-5, TRVAELIANE ####[facility] LABIA [id number] [address] [place] N. gonorrhoeae rRNA SATNY+probe Ql (Unsp spec) Not detected Normal Not detected [facility] Comment on above: Order Comment: Speci men Type: SWABOrdering Facility: [facility] Address: [address] [place] [address] Performed By: #### 3 6902-5, TRVAMP ####[facility] LABIA [id number] [place] [address] [place] CBC W Auto Differential pane l (Bld)on 08-11-2024 Basophils (Bld) [#/Vol] 10*3/uL Normal <0.11 [facility] Comment on above: Order Comment: Speci men Type: BLOOD SPECIMENOrdering Facility: [facility] Address: [address] [place] [address] Performed By: #### 5 7021-8 ####[facility] BRENNANWNCLIA [id number] [place] [address] [place] Basophils/100 WBC (Bld) 0.2 % Normal [facility] Comment on above: Order Comment: Speci men Type: BLOOD SPECIMENOrdering Facility: [facility] Address: [address] [place] [address] Performed By: #### 5 7021-8 ####[facility] [id number] [place] [address] [place] Differential cell count method Nom (Bld) Auto Normal [facility] Comment on above: Order Comment: Speci men Type: BLOOD SPECIMENOrdering Facility: [facility] Address: [address] [place] [address] Performed By: #### 5 7021-8 ####[facility] [id number] [place] [address] [place] Eosinophils (Bld) [#/Vol] 0.11 10*3/uL Normal <0.46 [facility] Comment on above: Order Comment: Speci men Type: BLOOD SPECIMENOrdering Facility: [facility] Address: [address] [place] [address] Performed By: #### 5 7021-8 ####[facility]CL[facility] [id number] [place] [address] [place] [place] Eosinophils/100 WBC (Bld) 1.4 % Normal [facility] Comment on above: Order Comment: Speci men Type: BLOOD SPECIMENOrdering Facility: [facility] Address: [address] [place] [address] Performed By: #### 5 7021-8 ####[facility]ITALNCLIA [id number] [place] [address] [place] Erythrocyte distribution width (RBC) [Ratio] 14.1 % Normal 11.5-15.0 [facility] Comment on above: Order Comment: Speci men Type: BLOOD SPECIMENOrdering Facility: [facility] Address: [address] [place] [address] Performed By: #### 5 7021-8 ####[facility]OSPITALNCLIA [id number] [place] [address] [place] Hematocrit (Bld) [Volume fraction] 40.2 % Normal 36.0-46.0 [facility] Comment on above: Order Comment: Speci men Type: BLOOD SPECIMENOrdering Facility: [facility] Address: [address] [place] [address] Performed By: #### 5 7021-8 ####[facility]ITALNCLIA [id number] [place] [address] [place] Hemoglobin (Bld) [Mass/Vol] 13.7 g/dL Normal 11.5-15.5 [facility] Comment on above: Order Comment: Speci men Type: BLOOD SPECIMENOrdering Facility: [facility] Address: [address] [place] [address] Performed By: #### 5 7021-8 ####[facility]ITALNCLIA [id number] [place] [address] [place] Immature granulocytes (Bld) [#/Vol] 10*3/uL Normal <0.10 [facility] Comment on above: Order Comment: Speci men Type: BLOOD SPECIMENOrdering Facility: [facility] Address: [address] [place] [address] Performed By: #### 5 7021-8 ####[facility]ITALNCLIA [id number] [place] [address] [place] Immature granulocytes/100 WBC (Bld) 0.1 % Normal [facility] Comment on above: Order Comment: Speci men Type: BLOOD SPECIMENOrdering Facility: [facility] Address: [address] [place] [address] Performed By: #### 5 7021-8 ####[facility] BRENNANVEENAAMOSJuan [id number] [place] [address] [place] Lymphocytes (Bld) [#/Vol] 1.41 10*3/uL Normal 1.00-4.00 [facility] Comment on above: Order Comment: Speci men Type: BLOOD SPECIMENOrdering Facility: [facility] Address: [address] [place] [address] Performed By: #### 5 7021-8 ####[facility] HOSPITALSILASA [id number] [place] [address] [place] Lymphocytes/100 WBC (Bld) 17.3 % Normal [facility] Comment on above: Order Comment: Speci men Type: BLOOD SPECIMENOrdering Facility: [facility] Address: [address] [place] [address] Performed By: #### 5 7021-8 ####[facility] HOSPITALESTEPHANIAA [id number] [place] [address] [place] MCH (RBC) [Entitic mass] 30.0 pg Normal 26.0-34.0 [facility] Comment on above: Order Comment: Speci men Type: BLOOD SPECIMENOrdering Facility: [facility] Address: [address] [place] [address] Performed By: #### 5 7021-8 ####[facility]ITALNCLIA [id number] [place] [address] [place] MCHC (RBC) [Mass/Vol] 34.1 g/dL Normal 30.5-36.0 [facility] Comment on above: Order Comment: Speci men Type: BLOOD SPECIMENOrdering Facility: [facility] Address: [address] [place] [address] Performed By: #### 5 7021-8 ####[facility] HOSPITALWNCLIA [id number] [place] [address] [place] MCV (RBC) [Entitic vol] 88.2 fL Normal 80.0-100.0 [facility] Comment on above: Order Comment: Speci men Type: BLOOD SPECIMENOrdering Facility: [facility] Address: [address] [place] [address] Performed By: #### 5 7021-8 ####[facility] CENTERLIA [id number] [place] [address] [place] Monocytes (Bld) [#/Vol] 0.66 10*3/uL Normal <0.87 [facility] Comment on above: Order Comment: Speci men Type: BLOOD SPECIMENOrdering Facility: [facility] Address: [address] [place] [address] Performed By: #### 5 7021-8 ####[facility]ITALA [id number] [place] [address] [place] Monocytes/100 WBC (Bld) 8.1 % Normal [facility] Comment on above: Order Comment: Speci men Type: BLOOD SPECIMENOrdering Facility: [facility] Address: [address] [place] [address] Performed By: #### 5 7021-8 ####[facility] CENTERLIA [id number] [place] [address] [place] Neutrophils (Bld) [#/Vol] 5.93 10*3/uL Normal 1.45-7.50 [facility] Comment on above: Order Comment: Speci men Type: BLOOD SPECIMENOrdering Facility: [facility] Address: [address] [place] [address] Performed By: #### 5 7021-8 ####[facility] HOSPITALNCA [id number] [place] [address] [place] Neutrophils/100 WBC (Bld) 72.9 % Normal [facility] Comment on above: Order Comment: Speci men Type: BLOOD SPECIMENOrdering Facility: [facility] Address: [address] [place] [address] Performed By: #### 5 7021-8 ####[facility] [id number] [place] [address] [place] Nucleated RBC (Bld) [#/Vol] 10*3/uL Normal <0.01 [facility] Comment on above: Order Comment: Speci men Type: BLOOD SPECIMENOrdering Facility: [facility] Address: [address] [place] [address] Performed By: #### 5 7021-8 ####[facility]OSPITALNCUINTAH BAS[facility] [id number] [place] [address] [place] Nucleated RBC/100 WBC (Bld) [Ratio] 0.0 /100 WBC Normal [facility] Comment on above: Order Comment: Speci men Type: BLOOD SPECIMENOrdering Facility: [facility] Address: [address] [place] [address] Performed By: #### 5 7021-8 ####[facility]OSPITALNCUINTAH [facility] [id number] [place] [address] [place] Platelet mean volume (Bld) [Entitic vol] 10.0 fL Normal 9.0-12.7 [facility] Comment on above: Order Comment: Speci men Type: BLOOD SPECIMENOrdering Facility: [facility] Address: [address] [place] [address] Performed By: #### 5 7021-8 ####[facility]OSPITALNCUINTA[facility] [id number] [place] [address] [place] Platelets (Bld) [#/Vol] 266 10*3/uL Normal 150-400 [facility] Comment on above: Order Comment: Speci men Type: BLOOD SPECIMENOrdering Facility: [facility] Address: [address] [place] [address] Performed By: #### 5 7021-8 ####[facility]ITALNCLIA [id number] [place] [address] [place] RBC (Bld) [#/Vol] 4.56 10*6/uL Normal 3.90-5.20 [facility] Comment on above: Order Comment: Speci men Type: BLOOD SPECIMENOrdering Facility: [facility] Address: [address] [place] [address] Performed By: #### 5 7021-8 ####[facility]OSPITALNCUINTA[facility] [id number] [place] [address] [place] WBC (Bld) [#/Vol] 8.14 10*3/uL Normal 3.70-11.00 [facility] Comment on above: Order Comment: Speci men Type: BLOOD SPECIMENOrdering Facility: [facility] Address: [address] [place] [address] Performed By: #### 5 7021-8 ####[facility]ITALA [id number] [place] [address] [place] HBV surface Ag Ql (S)on 07-30 Interpretation and review of laboratory results Normal [facility] HBV surface Ag Ser Qlon 07-30 HBV surface Ag Ql (S) Negative Normal Negative [facility] Comment on above: Order Comment: Speci men Type: BLOOD SPECIMENOrdering Facility: [facility] Address: [address] [place] [address] Performed By: #### 5 195-3, 12698-2, 88796-7 ####[facility] LABCLIA [id number] [place] [address] [place] HCG QUANTITATIVEon HCG.beta subunit Qn 8329 m[IU]/mL High NINF [facility] [place] [facility] Comment on above: QUANTITATIVE HCG NOR MAL RANGES Weeks of Gestation (Weeks Since LMP) 3 Weeks (5.8-71.2 mIU/mL) 4 Weeks (9.5-750 mIU/mL) 5 Weeks (217-7138 mIU/mL) 6 Weeks (158-15819 mIU/mL) 7 Weeks (3697-319500 mIU/mL) 8 Weeks (01075-692945 mIU/mL) 9 Weeks (83700-192323 mIU/mL) 10 Weeks (09866-731482 mIU/mL) 12 Weeks (36259-024762 mIU/mL) Referenced to 4th IS of [facility] HCG.beta subunit Qnon 2024 Interpretation and review of laboratory results Abnormal [facility] HCV Ab Ser Qlon 08-11-2024 HCV Ab Ql (S) Negative Normal Negative [facility] Comment on above: Order Comment: Speci men Type: BLOOD SPECIMENOrdering Facility: [facility] Address: [address] [place] [address] Result Comment: The result suggests no evidence of active infection with Hepatitis C virus. Should recent infection be suspected, repeat testing may be considered 4-6 weeks after this draw. Performed By: #### 1 6128-1 ####[facility] LABCLIA [id number] [place] [address] [place] HEPATITIS B SURFACE ANTIGENo n 08-11-2024 HBV surface Ag Ql (S) Negative Negative [facility] HIV 1+2 Ab IA Qlon HIV 1 and 2 Ab IA.rapid Nom (S/P/Bld) [facility] Comment on above: Test not indicated. HIV 1+2 Ab+HIV1 p24 Ag IA Ql Non-Reactive Nonreactive [facility] HIV immunoassay testing algorithm interpretation (S/P/Bld) [Interp] [facility] Comment on above: No evidence of HIV-1 or HIV-2 infection. Should recent infection be suspected, repeat testing may be considered 2-3 weeks after this draw. [place] Rev. Code 3701.243(E): This information has been [...] release of HIV test results or diagnoses. [facility] HIV 1 and 2 Ab IA.rapid Nom (S/P/Bld) Normal [facility] Comment on above: Order Comment: Speci men Type: BLOOD SPECIMENOrdering Facility: [facility] Address: [address] [place] [address] Result Comment: Test not indicated. Performed By: #### 5 195-3, 26737-8, 49947-2 ####[facility] LABPRO[facility] [id number] [place] [address] [place] HIV 1+2 Ab+HIV1 p24 Ag IA Ql Non-Reactive Normal Nonreactive [facility] Comment on above: Order Comment: Speci men Type: BLOOD SPECIMENOrdering Facility: [facility] Address: [address] [place] [address] Performed By: #### 5 195-3, 49662-3, 61932-5 ####[facility] LABIA [id number] [place] [address] [place] HIV immunoassay testing algorithm interpretation (S/P/Bld) [Interp] Normal [facility] Comment on above: Order Comment: Speci men Type: BLOOD SPECIMENOrdering Facility: [facility] Address: [address] [place] [address] Result Comment: No e vidence of HIV-1 or HIV-2 infection. Should recent infection be suspected, repeat testing may be considered 2-3 weeks after this draw. [place] Rev. Code 3701.243(E): This information has been [...] or diagnoses. Performed By: #### 5 195-3, 71859-9, 03724-2 ####[facility] LABCLIA [id number] [place] [address] [place] HbA1c (Bld)on 08-11-2024 Average glucose Estimated from glycated hemoglobin (Bld) [Mass/Vol] 97 mg/dL [facility] Comment on above: eAG: (Estimated aver age glucose) is a calculated value from HgbA1c and is telephone service representative of the average blood glucose level in the last 2-3 month period. HbA1c (Bld) [Mass fraction] 5 % 4.3 - 5.6 % [facility] Comment on above: Citizen Of [place] Diabetes As sociation guidelines indicate that patients with HgbA1c in the range 5.7-6.4% are at increased risk for development of diabetes, and intervention by lifestyle modification may be beneficial. HgbA1c greater or equal to 6.5% is considered diagnostic of diabetes. [facility] Average glucose Estimated from glycated hemoglobin (Bld) [Mass/Vol] 97 mg/dL Normal [facility] Comment on above: Order Comment: Speci men Type: BLOOD SPECIMENOrdering Facility: [facility] Address: [address] [place] [address] Result Comment: eAG: (Estimated average glucose) is a calculated value from HgbA1c and is telephone service representative of the average blood glucose level in the last 2-3 month period. Performed By: #### 5 5454-3 ####[facility] LABIA [id number] [place] [id number] [place] HbA1c (Bld) [Mass fraction] 5.0 % Normal 4.3-5.6 [facility] Comment on above: Order Comment: Speci men Type: BLOOD SPECIMENOrdering Facility: [facility] Address: [address] [place] [address] Result Comment: [place] Diabetes Association guidelines indicate that patients with HgbA1c in the range 5.7-6.4% are at increased risk for development of diabetes, and intervention by lifestyle modification may be beneficial. HgbA1c greater or equal to 6.5% is considered diagnostic of diabetes. Performed By: #### 5 5454-3 ####[facility] LABIA [id number] [address] [place] P[facility] PSYCHOLOGISTS ULTRASOUNDon 08-12-19 Indication Viability; confirm cardiac activity Impression Single [...] Read By: Christianne Carranza CNM MATERNAL MEDICINE [facility] Radiology Study observation (narrative) [facility] RUBELLA IGG ANTIBODYon 08-11 RUBELLA IGG AB, QUAL Positive Normal Positive [facility] Comment on above: Order Comment: Speci men Type: BLOOD SPECIMENOrdering Facility: [facility] Address: [address] [place] [address] Result Comment: The result suggests recent or past exposure to Rubella virus or history of Rubella vaccination. Positive result may also be seen due to presence of passively-transferred antibodies. Please correlate with patient's history. Performed By: #### R UBIGG ####[facility] LABIA [id number] [address] [place] Reagin and Treponema pallidu m IgG and IgM [Interp]on 08-11-2024 T. pallidum IgG+IgM IA Ql (S) Non-Reactive Nonreactive [facility] T. pallidum IgG+IgM IA Ql (S) Non-Reactive Normal Nonreactive [facility] Comment on above: Order Comment: Speci men Type: BLOOD SPECIMENOrdering Facility: [facility] Address: [address] [place] [address] Performed By: #### 5 195-3, 51032-4, 17031-8 ####[facility] LABCLIA [id number] [place] [address] [place] Reagin+T pallidum IgG+IgM Se rPl-Impon 08-11-2024 Reagin and Treponema pallidum IgG and IgM [Interp] Cannot exclude recent Treponemal infection if specimen collected within 7-10 days after appearance of suspect lesions or 2-3 weeks after an exposure. Clinical correlation is required. Normal [facility] Comment on above: Order Comment: Speci men Type: BLOOD SPECIMENOrdering Facility: [facility] Address: [address] [place] [address] Performed By: #### 5 195-3, 69881-8, 93731-2 ####[facility] LABIA [id number] [place] [id number] [place] SYPHILIS TREPONEMAL W/REFLEX on 08-11-2024 Reagin and Treponema pallidum IgG and IgM [Interp] Cannot exclude recent Treponemal infection if specimen collected within 7-10 days after appearance of suspect lesions or 2-3 weeks after an exposure. Clinical correlation is required. [facility] TRICHOMONAS VAGINALIS NAATon 08-11-2024 T. vaginalis DNA SANTY+probe Ql (Unsp spec) Not detected Normal Not detected [facility] Comment on above: Order Comment: Speci men Type: SWABOrdering Facility: [facility] Address: [address] [place] [address] Performed By: #### 3 6902-5, TRVAMP ####[facility] LABIA [id number] [place] [id number] [place] TYPE + SCREEN PRENATALon ABO group Nom (Bld) A [facility] Blood group antibody screen Ql Negative [facility] Rh Nom (Bld) Negative [facility] Type and Screen Expiration 08/14/2024 23:59 [facility] ABO A Normal [facility] Comment on above: Order Comment: Speci men Type: BLOOD SPECIMENOrdering Facility: [facility] Address: [address] [place] [address] Performed By: #### T SPN ####[facility] MA[facility] BLOOD BANKCLIA [id number] [address] [place] Rh Nom (Bld) Negative Normal [facility] Comment on above: Order Comment: Speci men Type: BLOOD SPECIMENOrdering Facility: [facility] Address: [address] [place] [address] Performed By: #### T SPN ####[facility] BLOOD BANKCLIA [id number] [address] [place] TYPE AND SCREEN EXPIRATION 08/14/2024 23:59 Normal [facility] Comment on above: Order Comment: Speci men Type: BLOOD SPECIMENOrdering Facility: [facility] Address: [address] [place] [address] Performed By: #### T SPN ####[facility] MA[facility] BLOOD BANKCLIA [id number] [address] [place] CNPNon 08-09-2024 CNPN Telephone (OBGYWM) ALEJANDRA KIRAN ([id number]) 2 F Date Time Provider Department 08/09/24 CHRISTIANNE CARRANZA During your visit today, we recorded the following information about you: Perla Munoz, ULISES 08/09/2024 9:51 AM Signed Left message for [...] Encounter Status:Closed by PERLA MUNOZ on 08/24/24 [facility] CNOVon 06-29-2024 CNOV Office Visit (OBGYWM ) PLANT,ALEJANDRA N ([id number]) 2 F Date Time Provider Department 06/29/24 9:10 AM MIKE CEBALLOS During your visit today, we recorded the following information about you: Blood pressure Weight Height Last Period 100/64 80.7 kg 1.727 m 06/01/24 Mike Ceballos MD 07/01/2024 10:13 AM Signed Automobile Bumper Straightener offered: Patient accepts, visit chaperoned by Erica [...] L0 SAB0 IAB0 Ectopic0 Multiple0 Live Births0 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 History LMP: 06/01/2024, Having periods Age at Menarche: 13 Age at First : Age at Menopause: 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 History Comments: Sexual Activity: Yes; Male Contraception: [...] discussed with the Patient or Patient's Authorized Corporate Learning Consultant. As applicable, any other physician, advance practice provider, medical student, or other health professional student that will be observing or involved in the sensitive examination for educational or training purposes was discussed with the Patient or Authorized Corporate Learning Consultant. The Patient or Authorized Corporate Learning Consultant has agreed to proceed with the sensitive [...] external genitalia normal, normal Bartholin's glands, urethra, Edith Endave's glands, no vulvar lesions, no cervical lesions, [...] - Cough (more content not included)... Normal [facility] UA DIP,URINE HCG (POC)on Beta HCG ( test) Ql (U) Negative Negative [facility] Comment on above: Location:[facility], [address], [place], [address] Justice (POCT) Internal QC [place] [facility] Location:[facility], [address], [place], [address] [facility] POINT OF CARE [facility] CNOVon 05-11-2024 CNOV Office Visit (OBGYWM ) ALEJANDRA KIRAN ([id number]) 2 F Date Time Provider Department 05/11/24 10:30 AM MIKE CEBALLOS During your visit today, we recorded the following information about you: Blood pressure Weight 106/74 76.2 kg Mike Ceballos MD 05/11/2024 10:51 AM Signed Automobile Bumper Straightener offered: Patient accepts, visit chaperoned by Erica [...] Mike Ceballos MD Referring Provider: DELL ALONSO [[id number]] Allergies As of Date: 05/11/2024 Noted Allergy Reaction POTATO 06/24/2016 2 - Rash 4 - Hives SEASONAL ALLERGIES 02/18/2018 3 - Cough Comments: Seasonal allergies Date Reviewed: 05/11/2024 Reviewed by: Erica Beverly MA - Fully Assessed Reason for Visit: IUD Removal [1949] Primary Visit Diagnosis:Encounter for IUD removal [Z30.432] Order(s):REMOVE INTRAUTERINE DEVICE [3620253] Order #: [id number] UA DIP,URINE HCG (POC) [9055172] Order #: [id number]. #:[id number] Prescriptions as of 05/11/2024 - cetirizine (ZYRTEC) [...] for Encounter Date Provider Department Center 05/11/2024 [id number] CEBALLOS [facility] Encounter Status:Closed by MIKE CEBALLOS on 05/11/24 Normal [facility] UA DIP,URINE HCG (POC)on Beta HCG ( test) Ql (U) Negative Negative [facility] Comment on above: Location:[facility], [address], [place], [address] Justice (POCT) Internal QC [facility] Location:[facility], [address], [place], [address] [facility] POINT OF CARE [facility] 01-18-2024 MARLEYN Telephone (ISHAWKevyn) ALEJANDRA KIRAN ([id number]) 2 F Date Time Provider Department 01/18/24 [...] for IUD removal [Z30.432] Order(s):REMOVE INTRAUTERINE DEVICE [[id number]] Order #: [id number] Prescriptions as of 01/18/2024 - cariprazine (VRAYLAR) [...] Encounter Status:Closed by HELLEN CAMPOVERDE on 01/18/24 [facility] CNOVon 11-25-2023 CNOV Office Visit (OBGYWM ) ALEJANDRA KIRAN Beryl ([id number]) 2 F Date Time Provider Department 11/25/23 [...] IVF. Reports irregular menses related to anorexia 2681-7188 now resolved and IUD place 2020. Menarche ~ 13 yo and regular until weight loss to 106. Now 160, 5'8. Monthly/cyclic discharge on underwear.. 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 History Comments: Sexual Activity: Yes; Male Contraception: [...] external genitalia normal, normal Bartholin's glands, urethra, Edith Endave's glands, no vulvar lesions, no cervical lesions, good vaginal support, physiologic discharge present, normal appearing perineal body and perianal region BIMANUAL: uterus normal size, shape and consistency, no adnexal masses, and non-tender NEURO: alert and oriented x3,exam grossly non-focal EXTREMITIES: normal ASSESSMENT AND PLAN: Unremarkable dietitian assistant exam noting cold intolerance and irregular menses [...] [R68.89] Order(s):THYROID STIMULATING HORMONE [SQTS] Order #: [id number] FUTURE Prescriptions as of 11/25/2023 - cariprazine (VRAYL (more content not included)... Normal [facility] TSH SerPl-aCncon 11-25-2023 TSH Qn 0.989 m[IU]/L Normal 0.270-4.200 [facility] Comment on above: Order Comment: Speci men Type: BLOOD SPECIMENOrdering Facility: [facility] Address: [address] [place] [address] Result Comment: If t he patient is , TSH reference range varies by gestational period: First Trimester (weeks 9-12): 0.180-2.990 mIU/L Second Trimester: 0.110-3.980 mIU/L Third Trimester: 0.480-4.710 mIU/L Xander Walker et al. A Practical Approach for the Verifications and Determination of Site- and Trimester-Specific Reference Intervals for Thyroid Function tests in . Thyroid, 2019:29:3:412-420. Milind Bergman et al. 2017 Guidelines of the Citizen Of [place] Thyroid Association for the Diagnosis and Management of Thyroid Disease during and the . Thyroid, 2017:27:3:315-389. Performed By: #### 3 016-3 ####[facility] LABCLIA [id number] [facility] [id number] [address] [place] Basic Metabolic Panelon 01-0 Anion gap [Moles/Vol] 8 Normal [facility] Comment on above: Performed By: #### B MP3, HGHCT, TROPI ####[facility] [place] [address] Calcium [Mass/Vol] 9.3 mg/dL Normal 8.4-10.4 [facility] Comment on above: Performed By: #### B MP3, HGHCT, TROPI ####[address] [place] [address] Chloride [Moles/Vol] 99 mmol/L Normal 98-107 [facility] Comment on above: Performed By: #### B MP3, HGHCT, TROPI ####[address] [place] [address] CO2 [Moles/Vol] 28 mmol/L Normal 22-30 [facility] Comment on above: Performed By: #### B MP3, HGHCT, TROPI ####[address] [place] [address] Creatinine [Mass/Vol] 0.69 mg/dL Normal 0.52-1.25 [facility] Comment on above: Performed By: #### B MP3, HGHCT, TROPI ####[address] [place] [address] GFR/1.73 sq M predicted among blacks MDRD (S/P/Bld) [Vol rate/Area] mL/min/{1.73_m2} Normal >60 [facility] Comment on above: Performed By: #### B MP3, HGHCT, TROPI ####[address] [place] [address] GFR/1.73 sq M predicted among non-blacks MDRD (S/P/Bld) [Vol rate/Area] mL/min/{1.73_m2} Normal >60 [facility] Comment on above: Result Comment: KDIG [...] Performed By: #### B MP3, HGHCT, TROPI ####[address] [place] [address] Glucose [Mass/Vol] 104 mg/dL High 70-100 [facility] Comment on above: Performed By: #### B MP3, HGHCT, TROPI ####[address] [place] [address] Potassium [Moles/Vol] 3.5 mmol/L Normal 3.5-5.1 [facility] Comment on above: Performed By: #### B MP3, HGHCT, TROPI ####[facility] [place] [address] Sodium [Moles/Vol] 135 mmol/L Normal 135-145 [facility] Comment on above: Performed By: #### B MP3, HGHCT, TROPI ####[address] [place] [address] Urea nitrogen [Mass/Vol] 11 mg/dL Normal 7-20 [facility] Comment on above: Performed By: #### B MP3, HGHCT, TROPI ####[facility] [place] [address] Anion gap [Moles/Vol] 8 mmol/L [place] Calcium [Mass/Vol] 9.3 mg/dL 8.4 - 10. 4 mg/dL [place] Chloride [Moles/Vol] 99 mmol/L 98 - 107 mmol/L [place] CO2 [Moles/Vol] 28 mmol/L 22 - 30 mmol/L [place] Creatinine [Mass/Vol] 0.69 mg/dL 0.52 - 1.25 mg/dL [place] EGFR IF NonAfrican [place] >90.0 >60 mL/min [place] Comment on above: KDIGO guidelines pro [...] MDRD (S/P/Bld) [Vol rate/Area] mL/min/{1.73_m2} >60 mL/min [place] Glucose [Mass/Vol] 104 mg/dL High 70 - 100 mg/dL [place], [place] Potassium [Moles/Vol] 3.5 mmol/L 3.5 - 5.1 mmol/L [place] Sodium [Moles/Vol] 135 mmol/L 135 - 145 mmol/L [place] Urea nitrogen [Mass/Vol] 11 mg/dL 7 - 20 mg/dL [place] Test Performed by [facility], [address] [place] [address] [place] COVID-19on 06-06-2020 SARS-CoV-2 Not Detected. Not Detected [place], [place] Comment on above: Not Detected. Method: Antigen detection by lateral flow. Results should not be the sole factor in determining infection status. Test [facility], [address] [place] [address] EKG 12 Leadon 06-06-2020 Bhupinder, [facility] Incoming Cardiology Results From [facility] - 06/06/2020 6:14 PM EST [facility] Test Date: 2020-06-05 Pat Name: Alejandra Cedeno Department: 08 Room: [facility] Gender: F Manager Safe: XAVEIR : 2000 Requested By: CAROLINA LOMELI Order Number: [id number] Reading MD: Peewee Peterson Measurements Intervals Fabius Rate: 57 P: 46 AK: 119 QRS: 57 QRSD: 92 T: 52 QT: 433 QTc: 422 Interpretive Statements Sinus bradycardia Compared to ECG 06/04/2020 22:31:38 Sinus rhythm no longer present Electronically Signed On 06-06-2020 18:13:50 EST by [facility] Test Date: 2020-06-05 Pat Name: Alejandra Desaisocorro Department: 08 Room: 2629 Gender: F Manager Safe: XAVIER : 2000 Requested By: CAROLINA LOMELI Order Number: [id number] Reading MD: Peewee Peterson Measurements Intervals Fabius Rate: 57 P: 46 AK: 119 QRS: 57 QRSD: 92 T: 52 QT: 433 QTc: 422 Interpretive Statements Sinus bradycardia Compared to ECG 06/04/2020 22:31:38 Sinus rhythm no longer present Electronically Signed On 06-06-2020 18:13:50 EST by [place], [place] Glucose,Bedsideon 06-06-2020 Glucose [Mass/Vol] 94 mg/dL Normal 70-100 [facility] Comment on above: Result Comment: Test performed by glucose meter. Results may be 10%-15% lower than serum/plasma values. (CLIA ID [id number]) Performed By: #### B GLU #### [address] [address] Hemoglobin AND Hematocriton 06-06-2020 Hematocrit (Bld) [Volume fraction] 34.6 % Low 35.0-47.0 [facility] Comment on above: Performed By: #### B MP3, HGHCT, TROPI ####[address] [address] Hemoglobin (Bld) [Mass/Vol] 11.5 g/dL Low 11.7-16.0 [facility] Comment on above: Performed By: #### B MP3, HGHCT, TROPI ####[address] [address] Hemoglobin and Hematocrit, B loodon 06-06-2020 Hematocrit (Bld) [Volume fraction] 34.6 % Low 35 - 47 % [place] Hemoglobin (Bld) [Mass/Vol] 11.5 g/dL Low 11.7 - 16 g/dL [place] Test Performed by [id number] [place] [address] Lipid Panelon 06-06-2020 Cholesterol in HDL [Mass/Vol] 43 mg/dL Normal 40-60 [place] Comment on above: Performed By: #### L IPD2 #### [facility] [address] [address] Cholesterol.total/Ch olesterol in HDL [Mass ratio] 4 Normal [facility] Comment on above: Result Comment: Ref Range: < 3 Low Risk for CHD 3-6 Mod Risk for CHD > 6 High Risk for CHD Performed By: #### L IPD2 #### [facility] [address] [address] Protein [Mass/Vol] 105 mg/dL Abnormal <100 [facility] Comment on above: Performed By: #### L IPD2 #### [facility] [address] [address] Cholesterol [Mass/Vol] 164 mg/dL Normal < 200 [place] Comment on above: Performed By: #### L IPD2 #### [facility] [address] [place] [address] Triglyceride [Mass/Vol] 80 mg/dL Normal <150 [place] Comment on above: Performed By: #### L IPD2 #### [facility] [address] [place] [address] Lipid panel - fastingon Cholesterol in LDL [Mass/Vol] 105 mg/dL Abnormal <100 [place] Cholesterol.total/Ch olesterol in HDL [Mass ratio] 4 {ratio} [place] Comment on above: Ref Range: < 3 Low Risk for CHD 3-6 Mod Risk for CHD > 6 High Risk for CHD Test Performed by [facility], [address] [place] [address] [place] Otheron 06-06-2020 Interpretation and review of laboratory results Abnormal [place] POCT troponinon 06-06-2020 Troponin I.cardiac [Mass/Vol] 0.00 ng/mL 0 - 0.08 ng/mL [place] Comment on above: . Test Performed by [facility], [address] [place] [address] [place] [id number] 06-06-2020 SARS-CoV-2 SARS-CoV-2 --> Statu s: F Not Detected. Method: Antigen detection by lateral flow. Results should not be the sole factor in determining infection status. Method: Antigen detection by lateral flow. Results should not be the sole factor in determining infection status. Normal [employer] [facility] Comment on above: Performed By: #### C OVID ####[facility] [address] [place], [place] Troponin, ISTATon 06-06-2020 Troponin I.cardiac [Mass/Vol] 0.00 ng/mL Normal 0.00-0.08 [facility] Comment on above: Result Comment: . Performed By: #### B MP3, HGHCT, TROPI ####[facility] [address] [place] [address] POCT Glucoseon 06-05-2020 Glucose [Mass/Vol] 94 mg/dL 70 - 100 mg/dL [place], [place] Comment on above: Test performed by ucose meter. Results may be 10%-15% lower than serum/plasma values. (CLIA ID [id number]) Test Performed by [facility], [address] [place] [address] [place], [place] [id number] 06-05-2020 SARS-CoV-2 SARS-CoV-2 --> Statu s: F Not Detected. Expected Result: Not Detected _ Real-time, RT-PCR performed on the Sparktrend System by the [facility] [employer] [facility]. Negative results do not preclude SARS-CoV-2 infection and should not be used as the sole basis for treatment or other patient management decisions. This assay was developed by [employer] and distributed under an Emergency Use Authorization (EUA) granted by the FDA for the qualitative detection of SARS-CoV-2 nucleic acid. Expected Result: Not Detected _ Real-time, RT-PCR performed on the Sparktrend System by the [facility] [employer] Service. Negative results do not preclude SARS-CoV-2 infection and should not be used as the sole basis for treatment or other patient management decisions. This assay was developed by [employer] and distributed under an Emergency Use Authorization (EUA) granted by the FDA for the qualitative detection of SARS-CoV-2 nucleic acid. Normal [facility] Comment on above: Performed By: #### C OVID ####[facility] [employer] [place] [address] hCG Qual Pregon 06-05-2020 hCG Qual Preg Negative Normal [facility] Comment on above: Result Comment: Refe rence Range: NEGATIVE Effective 08/12/2019, the reference interval for the qualitative test has been updated. This test detects hCG at concentrations of 10 mIU/L or greater in serum. Performed By: #### A CET4, SAL33, ETOH4, QWAL, HEMDF, CMP3 #### [facility] [address] ACETAMINOPHEN LEVELon 2020 Acetaminophen [Mass/Vol] <10.0 10 - 30 ug/mL [facility], [place] Acetaminophenon 06-04-2020 Acetaminophen [Mass/Vol] < 10.0 Normal 10.0-30.0 [facility] Comment on above: Performed By: #### A CET4, SAL33, ETOH4, QWAL, HEMDF, CMP3 #### [address] [place] Comp Metabolic Panelon 06-04 ALP [Catalytic activity/Vol] 87 U/L Normal 38-126 [facility] Comment on above: Performed By: #### A CET4, SAL33, ETOH4, QWAL, HEMDF, CMP3 #### [address] ALT [Catalytic activity/Vol] 11 U/L Normal 0-34 [facility] Comment on above: Result Comment: The ALT test is performed by an updated assay method. Please note that the reference intervals have been changed and are now sex specific. Performed By: #### A CET4, SAL33, ETOH4, QWAL, HEMDF, CMP3 #### [address] AST [Catalytic activity/Vol] 30 U/L Normal 15-46 [facility] Comment on above: Performed By: #### A CET4, SAL33, ETOH4, QWAL, HEMDF, CMP3 #### [address] Bilirubin [Mass/Vol] 0.4 mg/dL Normal 0.2-1.3 [facility] Comment on above: Performed By: #### A CET4, SAL33, ETOH4, QWAL, HEMDF, CMP3 #### [address] Calcium [Mass/Vol] 10.0 mg/dL Normal 8.4-10.4 [facility] Comment on above: Performed By: #### A CET4, SAL33, ETOH4, QWAL, HEMDF, CMP3 #### [address] [place] Glucose [Mass/Vol] 99 mg/dL Normal 70-100 [facility] Comment on above: Performed By: #### A CET4, SAL33, ETOH4, QWAL, HEMDF, CMP3 #### [address] [place] Protein [Mass/Vol] 8.2 g/dL Normal 6.3-8.2 [facility] Comment on above: Performed By: #### A CET4, SAL33, ETOH4, QWAL, HEMDF, CMP3 #### [address] [place] Urea nitrogen [Mass/Vol] 6 mg/dL Low 7-20 [facility] Comment on above: Performed By: #### A CET4, SAL33, ETOH4, QWAL, HEMDF, CMP3 #### [address] [place] Anion gap [Moles/Vol] 11 Normal [facility] Comment on above: Performed By: #### A CET4, SAL33, ETOH4, QWAL, HEMDF, CMP3 #### [address] [place] CO2 [Moles/Vol] 24 mmol/L Normal 22-30 [facility] Comment on above: Performed By: #### A CET4, SAL33, ETOH4, QWAL, HEMDF, CMP3 #### [address] [place] Creatinine [Mass/Vol] 0.62 mg/dL Normal 0.52-1.25 [facility] Comment on above: Performed By: #### A CET4, SAL33, ETOH4, QWAL, HEMDF, CMP3 #### [address] [place] GFR/1.73 sq M predicted among blacks MDRD (S/P/Bld) [Vol rate/Area] mL/min/{1.73_m2} Normal >60 [facility] Comment on above: Performed By: #### A CET4, SAL33, ETOH4, QWAL, HEMDF, CMP3 #### [address] GFR/1.73 sq M predicted among non-blacks MDRD (S/P/Bld) [Vol rate/Area] mL/min/{1.73_m2} Normal >60 [facility] Comment on above: Result Comment: KDIG [...] CET4, SAL33, ETOH4, QWAL, HEMDF, CMP3 #### [address] Potassium [Moles/Vol] 3.6 mmol/L Normal 3.5-5.1 [facility] Comment on above: Performed By: #### A CET4, SAL33, ETOH4, QWAL, HEMDF, CMP3 #### [address] Sodium [Moles/Vol] 138 mmol/L Normal 135-145 [facility] Comment on above: Performed By: #### A CET4, SAL33, ETOH4, QWAL, HEMDF, CMP3 #### [address] Albumin [Mass/Vol] 4.8 g/dL Normal 3.5-5.0 [facility] Comment on above: Performed By: #### A CET4, SAL33, ETOH4, QWAL, HEMDF, CMP3 #### [facility] [address] [place] [address] Chloride [Moles/Vol] 103 mmol/L Normal 98-107 [facility] Comment on above: Performed By: #### A CET4, SAL33, ETOH4, QWAL, HEMDF, CMP3 #### [facility] [address] [place] [address] Comprehensive Metabolic Pane roverto 06-04-2020 Albumin [Mass/Vol] 4.8 g/dL 3.5 - 5 g/dL [place], [place] ALP [Catalytic activity/Vol] 87 U/L 38 - 126 U/L [place] ALT [Catalytic activity/Vol] 11 U/L 0 - 34 U/L [place] Comment on above: The ALT test is perf ormed by an updated assay method. Please note that the reference intervals have been changed and are now sex specific. Anion gap [Moles/Vol] 11 mmol/L [place] AST [Catalytic activity/Vol] 30 U/L 15 - 46 U/L [place] Bilirubin Ql (U) 0.4 mg/dL 0.2 - 1.3 mg/dL [place], [place] Calcium [Mass/Vol] 10.0 mg/dL 8.4 - 10. 4 mg/dL [place] Chloride [Moles/Vol] 103 mmol/L 98 - 107 mmol/L [place] CO2 [Moles/Vol] 24 mmol/L 22 - 30 mmol/L [place] Creatinine [Mass/Vol] 0.62 mg/dL 0.52 - 1.25 mg/dL [place] EGFR IF NonAfrican Citizen Of [place] >90.0 >60 mL/min [place] Comment on above: KDIGO guidelines pro [...] MDRD (S/P/Bld) [Vol rate/Area] mL/min/{1.73_m2} >60 mL/min [place] Glucose [Mass/Vol] 99 mg/dL 70 - 100 mg/dL [place], [place] Interpretation and review of laboratory results Abnormal [place] Potassium [Moles/Vol] 3.6 mmol/L 3.5 - 5.1 mmol/L [place] Protein [Mass/Vol] 8.2 g/dL 6.3 - 8.2 g/dL [place], [place] Sodium [Moles/Vol] 138 mmol/L 135 - 145 mmol/L [place] Urea nitrogen [Mass/Vol] 6 mg/dL Low 7 - 20 mg/dL [place] Drugs of Abuseon 06-04-2020 Cocaine, Ur Negative Normal [facility] Comment on above: Performed By: #### D RGA4 ####[address] [place], [place] Opiates, Ur Negative Normal [facility] Comment on above: Performed By: #### D RGA4 ####[address] [place] [address] Phencyclidine (PCP), Ur Negative Normal [facility] Comment on above: Result Comment: The [...] separate order. Performed By: #### D RGA4 ####[facility] [id number] [facility] [place] [address] Methadone, Ur Negative Normal [facility] Comment on above: Performed By: #### D RGA4 ####[facility] [address] [place] [address] Amphetamines, Ur Negative Normal [facility] Comment on above: Performed By: #### D RGA4 ####[facility] [id number] [facility] [place] [address] Barbiturates, Ur Negative Normal [facility] Comment on above: Performed By: #### D RGA4 ####[facility] [id number] [facility] [place] [address] Benzodiazepines, Ur Negative Normal [facility] Comment on above: Performed By: #### D RGA4 ####[facility] [address] [facility] [place] [address] Oxycodone/Oxymorphin e,Ur Negative Normal [facility] Comment on above: Performed By: #### D RGA4 ####[facility] [id number] [place] [address] ED Provider Noteon ED Provider Note Emergency [...] is scared she will hurt herself further. DEERING (Location/Symptom, Timing/Onset, Context/Setting, Quality, Duration, Modifying Factors, [...] otherwise acutely negative except as in the DEERING. Past History History reviewed. No pertinent past [...] on phone: None Gets together: None Attends congregational service: None Active member of club or [...] Rate Resp SpO2 Height Weight - Scale 01/04/21 2017 01/04/21 2017 06/04/20201606/04/20201606/04/20201606/04/20201606/04/20202306/04/202023 (!) 144/101 99.4 ?F (37.4 ?C) Temporal [...] >60 mL/min EGFR IF NonAfrican Citizen Of The [place] >90.0 >60 mL/min Calcium 10.0 8.4 - [...] # 1.6 1.0 - 4.3 10*3/uL [place] # 0.5 0.0 - 0.8 10*3/uL Absolute [...] inpatient psychiatric admission, patient was admitted to [facility] [place] in stable condition. Patient is medically clear for psychiatric admission. ED Medication Orders (From admission, onward) Start Ordered Status Ordering Provider 06/04/205 06/04/202235 Zkwdhoo-Akoibm-Uydox Pertussis (BOOSTRIX) injection 0.5 mL ONCE Last JUL action: Given - by DESIREE HARPER on [...] the dictating provider for clarification. SELINA Nieves [employer] SELINA Nieves 06/05/20 0007 [facility] ED Provider Note Emergency Department Encounter [facility] EMERGENCY DEPT Patient: Alejandra Cedeno : 2000 [...] Rate and rhythm: sinus rhythm, 66 bpm Fabius: within normal range Intervals: AK 122, QRS 88, QTc 430 Segments: no [...] are mis-transcribed.) Giles Rose MD Acute Care [facility] Giles Rose MD 06/05/20 0343 [facility] Ethanolon 06-04-2020 Ethanol Lvl <0.010 0 - 0.01 g/dL [place], [place] Comment on above: NOTE: This result is for medical treatment only. Analysis performed using non-forensic procedures. Ethanol Serum/Plasmaon 06-04 Ethanol-Serum/Plasma < 0.010 Normal 0.000-0.010 [facility] Comment on above: Result Comment: NOTE : This result is for medical treatment only. Analysis performed using non-forensic procedures. Performed By: #### A CET4, SAL33, ETOH4, QWAL, HEMDF, CMP3 #### [address] [address] HCG Qualitative, Serumon hCG Qual Negative m[IU]/mL [place], [place] Comment on above: Reference Range: NEG ATIVE Effective 08/12/2019, the reference interval for the qualitative test has been updated. This test detects hCG at concentrations of 10 mIU/L or greater in serum. Test Performed by [facility], [address] [place] [address] [place] Hemogram (CBC) w/Auto Diffon 06-04-2020 Absolute Baso # 0.0 10*3/uL 0 - 0.2 10*3/uL [place] Absolute Neut # 4.6 10*3/uL 1.8 - 7 10*3/uL [place] Basophils/100 WBC (Bld) 0.7 % 0 - 2 % [place] Eosinophils (Bld) [#/Vol] 0.0 10*3/uL 0 - 0.5 10*3/uL [place] Eosinophils/100 WBC (Bld) 0.5 % Low 1 - 6 % [place] Erythrocyte distribution width (RBC) [Ratio] 18.1 % High 11.5 - 14.5 % [place] Granulocytes/100 WBC (Bld) 68.4 % 40 - 80 % [place] Hematocrit (Bld) [Volume fraction] 40.0 % 35 - 47 % [place] Hemoglobin (Bld) [Mass/Vol] 12.9 g/dL 11.7 - 16 g/dL [place] Interpretation and review of laboratory results Abnormal [place] Lymphocytes (Bld) [#/Vol] 1.6 10*3/uL 1 - 4.3 10*3/uL [place] Lymphocytes/100 WBC (Bld) 23.2 % 20 - 40 % [place] MCH (RBC) [Entitic mass] 25.9 pg Low 26 - 34 pg [place] MCHC (RBC) [Mass/Vol] 32.2 % 32 - 36 % [place] MCV (RBC) [Entitic vol] 80.4 fL 79 - 98 fL [place] Monocytes (Bld) [#/Vol] 0.5 10*3/uL 0 - 0.8 10*3/uL [place] Monocytes/100 WBC (Bld) 7.2 % 2 - 10 % [place] Platelet mean volume (Bld) [Entitic vol] 8.7 fL 7.4 - 10.4 fL [place], [place] Platelets (Bld) [#/Vol] 326 10*3/uL 140 - 440 10*3/uL [place] RBC (Bld) [#/Vol] 4.97 10*6/uL 3.8 - 5.2 10*6/uL [place] WBC (Bld) [#/Vol] 6.8 10*3/uL 3.6 - 10.7 10*3/uL [place] Test Performed by [facility], [address] [place] [address] [place] Hemogram w/ Autodiffon 06-04 Abs Baso Cnt 0.0 10*3/uL Normal 0.0-0.2 [facility] Comment on above: Performed By: #### A CET4, SAL33, ETOH4, QWAL, HEMDF, CMP3 #### [facility] [address] [address] Abs Neutrophile Cnt 4.6 10*3/uL Normal 1.8-7.0 [facility] Comment on above: Performed By: #### A CET4, SAL33, ETOH4, QWAL, HEMDF, CMP3 #### [address] [place] Basophils/100 WBC (Bld) 0.7 % Normal 0.0-2.0 [facility] Comment on above: Performed By: #### A CET4, SAL33, ETOH4, QWAL, HEMDF, CMP3 #### [address] [place] Eosinophils (Bld) [#/Vol] 0.0 10*3/uL Normal 0.0-0.5 [facility] Comment on above: Performed By: #### A CET4, SAL33, ETOH4, QWAL, HEMDF, CMP3 #### [address] [place] Eosinophils/100 WBC (Bld) 0.5 % Low 1.0-6.0 [facility] Comment on above: Performed By: #### A CET4, SAL33, ETOH4, QWAL, HEMDF, CMP3 #### [address] [place] Erythrocyte distribution width (RBC) [Ratio] 18.1 % High 11.5-14.5 [facility] Comment on above: Performed By: #### A CET4, SAL33, ETOH4, QWAL, HEMDF, CMP3 #### [address] Granulocytes/100 WBC (Bld) 68.4 % Normal 40.0-80.0 [facility] Comment on above: Performed By: #### A CET4, SAL33, ETOH4, QWAL, HEMDF, CMP3 #### [address] [place] Hematocrit (Bld) [Volume fraction] 40.0 % Normal 35.0-47.0 [facility] Comment on above: Performed By: #### A CET4, SAL33, ETOH4, QWAL, HEMDF, CMP3 #### [address] [place] [address] Hemoglobin (Bld) [Mass/Vol] 12.9 g/dL Normal 11.7-16.0 [facility] Comment on above: Performed By: #### A CET4, SAL33, ETOH4, QWAL, HEMDF, CMP3 #### [address] [place] Lymphocytes (Bld) [#/Vol] 1.6 10*3/uL Normal 1.0-4.3 [facility] Comment on above: Performed By: #### A CET4, SAL33, ETOH4, QWAL, HEMDF, CMP3 #### [address] [place] Lymphocytes/100 WBC (Bld) 23.2 % Normal 20.0-40.0 [facility] Comment on above: Performed By: #### A CET4, SAL33, ETOH4, QWAL, HEMDF, CMP3 #### [address] [place] MCH (RBC) [Entitic mass] 25.9 pg Low 26.0-34.0 [facility] Comment on above: Performed By: #### A CET4, SAL33, ETOH4, QWAL, HEMDF, CMP3 #### [address] MCHC (RBC) [Mass/Vol] 32.2 % Normal 32.0-36.0 [facility] Comment on above: Performed By: #### A CET4, SAL33, ETOH4, QWAL, HEMDF, CMP3 #### [address] MCV (RBC) [Entitic vol] 80.4 fL Normal 79.0-98.0 [facility] Comment on above: Performed By: #### A CET4, SAL33, ETOH4, QWAL, HEMDF, CMP3 #### [address] Monocytes (Bld) [#/Vol] 0.5 10*3/uL Normal 0.0-0.8 [facility] Comment on above: Performed By: #### A CET4, SAL33, ETOH4, QWAL, HEMDF, CMP3 #### [address] [place] Monocytes/100 WBC (Bld) 7.2 % Normal 2.0-10.0 [facility] Comment on above: Performed By: #### A CET4, SAL33, ETOH4, QWAL, HEMDF, CMP3 #### [address] [place] Platelet mean volume (Bld) [Entitic vol] 8.7 fL Normal 7.4-10.4 [facility] Comment on above: Performed By: #### A CET4, SAL33, ETOH4, QWAL, HEMDF, CMP3 #### [place] [place], [place] Platelets (Bld) [#/Vol] 326 10*3/uL Normal 140-440 [facility] Comment on above: Performed By: #### A CET4, SAL33, ETOH4, QWAL, HEMDF, CMP3 #### [address] [address] [place], [place] RBC (Bld) [#/Vol] 4.97 10*6/uL Normal 3.80-5.20 [facility] Comment on above: Performed By: #### A CET4, SAL33, ETOH4, QWAL, HEMDF, CMP3 #### [address] [address] [place] WBC (Bld) [#/Vol] 6.8 10*3/uL Normal 3.6-10.7 [facility] Comment on above: Performed By: #### A CET4, SAL33, ETOH4, QWAL, HEMDF, CMP3 #### [address] Otheron 06-04-2020 Test Performed by [facility], [address] [place] [id number] [facility] [place], [place] Salicylateon 06-04-2020 Salicylate Lvl <1.0 0 - 20 mg/dL [facility] [place] [place] Test Performed by [facility], [address] [place] [id number] [facility], [place] Salicylateson 06-04-2020 Salicylates < 1.0 Normal 0.0-20.0 [facility] Comment on above: Performed By: #### A CET4, SAL33, ETOH4, QWAL, HEMDF, CMP3 #### [facility] [address] [place] [address] Urine Drug Screenon 06-04-19 21 Amphetamines, urine Negative [facility] [place] [place] Barbiturates, Ur Negative [facility] [place] Benzodiazepine Ur Qual Negative [facility] [place] Cocaine Metabolites, Ur Negative [facility] [place] Methadone, Urine Negative [facility] [place] Opiates, Urine Negative [facility] [place] Oxy[place]one Screen, Ur [facility] [place] P[place], Urine Negative [facility] [place] Comment on above: The [...] confirmation under separate order. Test Performed by [facility], [facility] [place] [address] [facility] [place], [place] GI FLUORO CHEST SNIFF TESTon [...] right hemidiaphragm. IMPRESSION: 1. Normal diaphragmatic excursion. Almond Paste Molder: PSCB Transcribe Date/Time: Mar 19 2020 9:24A Dictated by : LISA KRAUS MD This examination was interpreted and the report reviewed and electronically signed by: LISA KRAUS MD on Mar 19 2020 9:27AM EST [id number] [facility] Vital Signs Date Time Vital Sign Value Performing Clinician Malia martinez 08-11-2024 08:39-0400 Body height 172.7 cm Christianne Carranza REMOTE SENSING PROGRAM MANAGER.CNM Work Phone: [facility] 08-11-2024 08:39-0400 Body mass index (BMI) [Ratio] 27.37 kg/m2 Christianne Carranza REMOTE SENSING PROGRAM MANAGER.CNM Work Phone: [facility] 08-11-2024 08:39-0400 Body weight 81.65 kg Christianne Carranza REMOTE SENSING PROGRAM MANAGER.CNM Work Phone: [facility] 08-11-2024 08:39-0400 Diastolic blood pressure 72 mm[Hg] Christianne Madrigalts REMOTE SENSING PROGRAM MANAGER.CNM Work Phone: [facility] 08-11-2024 08:39-0400 Systolic blood pressure 110 mm[Hg] Christianne Plotts REMOTE SENSING PROGRAM MANAGER.CNM Work Phone: [facility] 06-29-2024 09:06-0500 Body height 172.7 cm Mike Ceballos MD Work Phone: [facility] 06-29-2024 09:06-0500 Body mass index (BMI) [Ratio] 27.06 kg/m2 Mike Ceballos MD Work Phone: [facility] 01-29-2025 09:06-0500 Body weight 80.74 kg Mike Ceballos MD Work Phone: [facility] 06-29-2024 09:06-0500 Diastolic blood pressure 64 mm[Hg] Mike Ceballos MD Work Phone: [facility] 06-29-2024 09:06-0500 Systolic blood pressure 100 mm[Hg] Mike Ceballos MD Work Phone: [facility] 05-11-2024 10:17-0500 Body mass index (BMI) [Ratio] 26.51 kg/m2 Mike Ceballos MD Work Phone: [facility] 05-11-2024 10:17-0500 Body weight 76.2 kg Mike Ceballos MD Work Phone: [facility] 05-11-2024 10:17-0500 Diastolic blood pressure 74 mm[Hg] Mike Ceballos MD Work Phone: [facility] 05-11-2024 10:17-0500 Systolic blood pressure 106 mm[Hg] Mike Ceballos MD Work Phone: [facility] 11-25-2023 08:05-0400 Body mass index (BMI) [Ratio] 26.19 kg/m2 Mike Ceballos MD Work Phone: [facility] 11-25-2023 08:05-0400 Body weight 75.3 kg Mike Ceballos MD Work Phone: [facility] 11-25-2023 08:05-0400 Diastolic blood pressure 60 mm[Hg] Mike Ceballos MD Work Phone: [facility] 11-25-2023 08:05-0400 Systolic blood pressure 100 mm[Hg] Mike Ceballos MD Work Phone: [facility] 02-26-2023 14:00-0400 Body height 170.2 cm Kiki Milan REMOTE SENSING PROGRAM MANAGER.CHILD NURSE Work Phone: [facility] 02-26-2023 14:00-0400 Body weight 73.94 kg Kiki Armington REMOTE SENSING PROGRAM MANAGER.CHILD NURSE Work Phone: [facility] 02-26-2023 14:00-0400 Diastolic blood pressure 64 mm[Hg] Kiki Milan REMOTE SENSING PROGRAM MANAGER.CHILD NURSE Work Phone: [facility] 02-26-2023 14:00-0400 Systolic blood pressure 112 mm[Hg] Kiki Armington REMOTE SENSING PROGRAM MANAGER.CHILD NURSE Work Phone: [facility] 06-11-2020 05:45-0500 Body Temperature 97.7 [degF] [facility] [place] 06-11-2020 05:45-0500 BP Diastolic 74 mm[Hg] [facility] , [place] 06-11-2020 05:45-0500 BP Systolic 117 mm[Hg] [facility] , [place] 06-11-2020 05:45-0500 Pulse (Heart Rate) 67 /min [facility], [place] 06-11-2020 05:45-0500 Pulse Oximetry 98 % [facility] , [place] 06-11-2020 05:45-0500 Respiratory Rate 16 /min [facility], [place] 06-04-2020 20:24-0500 BMI (Body Mass Index) 21.79 kg/m2 [facility], [place] 06-04-2020 20:24-0500 Body weight 61.24 kg [place] 06-04-2020 20:24-0500 Height 167.6 cm [place] Encounters Encounter Date Encounter Type Care Provider Facility Start: 03-01-2025 End: 03-03-2025 ambulatory [facility] Facility:[facility] Start: 03-01-2025 End: 03-01-2025 ambulatory [facility] Facility:[facility] Start: 02-26-2025 ambulatory [facility]: [facility] Start: 02-25-2025 End: 02-25-2025 ambulatory [facility] Facility:[facility] Start: 02-23-2025 ambulatory [facility]: [facility] Start: 02-22-2025 End: 02-22-2025 ambulatory [facility] Start: 02-22-2025 End: 02-22-2025 ambulatory Sundeep Conde Facility:[facility] Start: 02-15-2025 End: 02-15-2025 ambulatory Sundeep HernandesChristos Facility:[facility] Start: 02-10-2025 End: 02-10-2025 ambulatory SHOAIB Jolynn [facility] Start: 02-09-2025 End: 02-09-2025 ambulatory Sundeep Conde Facility:[facility] Start: 02-07-2025 End: 02-07-2025 ambulatory NAVDEEP Giovani RACHELE [facility] Start: 02-01-2025 End: 02-01-2025 ambulatory Sundeep Almanzarman Facility:[facility] Start: 01-24-2025 End: 01-24-2025 ambulatory Sundeep HernandesChristos Facility:[facility] Start: 01-24-2025 End: 01-24-2025 ambulatory Sundeep Conde Facility:[facility] Start: 01-06-2025 End: 01-06-2025 ambulatory Sundeep Conde [facility] Start: 12-29-2024 End: 12-29-2024 ambulatory Sundeep HernandesChristos Facility:[facility] Start: 12-26-2024 End: 12-26-2024 ambulatory Sundeep HernandesChristos [facility] Start: 12-26-2024 End: 12-26-2024 ambulatory Sundeep HernandesChristos Facility:[facility] Start: 12-20-2024 End: 12-20-2024 ambulatory FLORY Dunham [facility] Start: 12-07-2024 End: 12-07-2024 ambulatory Sundeep Conde Facility:[facility] Start: 12-06-2024 End: 12-06-2024 Emergency department patient visit Sundeep Conde Facility:[facility] Start: 12-01-2024 End: 12-01-2024 ambulatory NAVDEEP Moore [facility] Start: 11-17-2024 End: 11-17-2024 ambulatory FREDDIE Neil [facility] Start: 11-09-2024 End: 11-09-2024 ambulatory Bertha [place] Facility:[facility] Start: 11-04-2024 End: 11-04-2024 ambulatory Angela Vigil Facility:[facility] Start: 11-04-2024 End: 11-04-2024 ambulatory Sundeep Conde Facility:[facility] Start: 10-19-2024 End: 10-19-2024 ambulatory Tieradonell Mcfarland Facility:[facility] Start: 10-13-2024 End: 10-13-2024 ambulatory Bertha S Jolliff [facility] Start: 10-13-2024 End: 10-13-2024 ambulatory Bertha S Jolliff Facility:[facility] Start: 10-05-2024 End: 10-05-2024 ambulatory Tieradonell Riosjamariony Facility:[facility] Start: 10-03-2024 End: 10-03-2024 ambulatory BERTHA S JOLLIFF [facility] Start: 09-22-2024 End: 09-22-2024 ambulatory MARTINE Mesha LLANES [facility] Start: 09-19-2024 End: 09-19-2024 ambulatory Tieradonell Riosmike Facility:[facility] Start: 09-14-2024 End: 09-14-2024 ambulatory Bertha S Jolliff [facility] Start: 08-31-2024 End: 08-31-2024 ambulatory Flory Ray Yungde Facility:[facility] Start: 08-24-2024 End: 08-24-2024 ambulatory Flory Vande Velde Facility:[facility] Start: 08-19-2024 End: 08-19-2024 ambulatory Bertha S Jolliff [facility] Start: 08-19-2024 End: 08-19-2024 ambulatory Bertha S Jolliff Facility:[facility] Start: 08-16-2024 End: 10-17-2024 Follow-up encounter Rosario Escalona MD Work Phone: OB/Gynecology Start: 08-15-2024 End: 08-15-2024 ambulatory CHRISTIANNE CARRANZA Facility:[facility] Start: 08-14-2024 End: 10-14-2024 Follow-up encounter Rosario Escalona MD Work Phone: OB/Gynecology Start: 08-13-2024 End: 08-13-2024 ambulatory CHRISTIANNE CARRANZA Facility:[facility] Start: 08-12-2024 End: 10-12-2024 Follow-up encounter Christianne Carranza APRN.CNM Work Phone: OB/Gynecology Start: 08-12-2024 End: 08-12-2024 Telephone encounter Christianne Kaitlinrosalia ROSARIO Work Phone: OB/Gynecology Comment on above: Transferred Care Start: 08-12-2024 ambulatory Minoo Arredondo Facility :[facility] Start: 08-11-2024 End: 08-11-2024 ambulatory CHRISTIANNE CARRANZA Facility:[facility] Start: 08-11-2024 End: 08-11-2024 Patient [...] Start: 06-29-2024 End: 06-29-2024 ambulatory MIKE CEBALLOS Facility:[facility] Start: 06-29-2024 End: 06-29-2024 Patient encounter procedure Mike Ceballos MD Work Phone: OB/Gynecology Comment on above: Encounter for gyneco logical examination (general) (routine) without abnormal findings (Primary Dx); Attempting to conceive Start: 06-29-2024 End: 06-29-2024 Patient encounter status Mike Ceballos MD Work Phone: [facility] Start: 05-11-2024 End: 05-11-2024 ambulatory MIKE CEBALLOS Facility:[facility] Start: 05-11-2024 End: 05-11-2024 Patient [...] Start: 11-25-2023 End: 11-25-2023 ambulatory MIKE CEBALLOS Facility:[facility] Start: 11-25-2023 End: 11-25-2023 Patient encounter procedure Mike Ceballos MD Work Phone: OB/Gynecology Comment on above: Irregular menses (Pr imary Dx); Intolerance to cold Start: 02-26-2023 End: 02-26-2023 Patient encounter procedure Kiki Milansandra EVANSCHILD NURSE Work Phone: OB/Gynecology Comment on above: Secondary amenorrhea (Primary Dx) Start: 06-04-2020 Patient encounter procedure [place], [place] Procedures Date Procedure Procedure Detail Performing Clinician Start: 08-11-2024 Antibody screen MIKE CEBALLOS Comment on above: Order Comment: Speci men Type: BLOOD SPECIMENOrdering Facility: [facility] Address: [address] [place] [address] Performed By: #### T SPN ####CC MAIN BLOOD BANKCLIA [id number] [place] [address] [place] Start: 08-11-2024 Us uterus l imited 1/> fetuses Christianne Plotrosalia REMOTE SENSING PROGRAM MANAGER.CNM Work Phone: Start: 06-29-2024 UA DIP,URINE HCG (POC) Mike Ceballos MD Work Phone: Start: 05-11-2024 UA DIP,URINE HCG (POC) Mike Ceballos MD Work Phone: Start: 06-06-2020 COVID-19 Henri Wilson Work Phone: Start: 06-06-2020 Assay of troponin [...] Phone: Start: 06-04-2020 Assay of acetaminophen Sharon Matthew Work Phone: Start: 06-04-2020 Assay of ethanol Flynnfamilia nieves Matthew Work Phone: Start: 06-04-2020 Assay of salicylate Flynn [place] Matthew Work Phone: Start: 06-04-2020 Blood count complete auto&auto difrntl wbc Sharon Castro Work Phone: Start: 06-04-2020 Comprehensive metabo lic panel Sharondaisy Castro Work Phone: Start: 06-04-2020 COVID-19 Sharon bell Work Phone: Start: 06-04-2020 Drug screen class list a Sharon Matthew Work Phone: Start: 06-04-2020 Gonadotropin chorion ic qualitative Sharon Castro Work Phone: Plan of Treatment Date Care Activity Detail Author Start: 06-04-2030 DTaP/Tdap/Td vaccine (5 - Td) DTaP/Tdap/Td vaccine (5 - Td) [place] Start: 01-04-2031 Urine microalbumin profile DTaP,Tdap,Td Vaccine (8 - Td or Tdap) [facility] Start: 06-08-2026 Screening for malign ant neoplasm of cervix Cervical Cancer Screening [facility] Start: 08-11-2025 GC (Gonorrhea) Scree james (18-24) GC (Gonorrhea) Screening (18-24) [facility] Start: 08-11-2025 Screening for Chlamy jennifer trachomatis Chlamydia Screening (18) [facility] Start: 07-03-2025 End: 07-03-2025 Patient encounter procedure 07/03/2025 9:10 AM EST Office Visit OB/Gynecology [address] [place] [address] Mike Ceballos MD [address] [place] [address] Annual OB/Gynecology Comment on above: Annual Start: 02-09-2025 RSV Vaccine (1 - Ris k 1-dose series) RSV Vaccine (1 - Risk 1-dose series) [facility] Start: 01-30-2025 Influenza vaccination Influenz a Vaccine (Season Ended) [facility] Start: 11-17-2024 End: 11-17-2024 Patient encounter procedure 11/17/2024 9:00 AM EDT Routine Office Visit [facility] [address] [place] [address] Anatomy/OB [facility] Comment on above: Anatomy/OB Start: 09-08-2024 End: 09-08-2024 Patient encounter procedure 09/08/2024 10:20 AM EDT Routine Office Visit OB/Gynecology [address] [place] [address] Dell Alonso MD [address] [place] [address] 1st OB - LMP 06/30/2024 OB/Gynecology Comment on above: 1st OB - LMP 06/30/19 Start: 08-25-2024 End: 08-25-2024 Patient encounter procedure 08/25/2024 8:30 AM EDT Routine Office Visit OB/Gynecology [address] [place] [address] Dating OB/Gynecology Comment on above: Dating Start: 08-11-2024 End: 11-10-2024 ANEMIA REFLEX PANEL [facility] Work Phone: Comment on above: Expected: 08/11/2024 , Expires: 11/10/2024 Start: 08-11-2024 End: 11-10-2024 Hepatitis C virus Ab [Presence] in Serum [facility] Comment on above: Expected: 08/11/2024 , Expires: 11/10/2024 Start: 08-11-2024 End: 08-11-2025 OBSTETRIC ULTRASOUND WHI OBSTETRIC ULTRASOUND WHI Anc Imaging Routine with uncertain dates, antepartum Expected: 08/11/2024, Expires: 08/11/2025 [facility] Comment on above: Expected: 08/11/2024 , Expires: 08/11/2025 Start: 08-11-2024 End: 11-10-2024 RUBELLA IGG ANTIBODY [facility] Comment on above: Expected: 08/11/2024 , Expires: 11/10/2024 Start: 06-29-2024 End: 06-29-2024 Patient encounter procedure 06/29/2024 9:10 AM EST Office Visit OB/Gynecology [address] [place] [address] Mike Ceballos MD [address] [place] [address] Annual OB/Gynecology Comment on above: Annual Start: 06-08-2024 GC (Gonorrhea) Scree james (18-24) GC (Gonorrhea) Screening (18-24) [facility] Start: 06-08-2024 Screening for Chlamy jennifer trachomatis Chlamydia Screening () [facility] Start: 05-11-2024 End: 05-11-2024 Patient encounter procedure 05/11/2024 10:30 AM EST Office Visit OB/Gynecology [address] [place] [id number] Mike Ceballos MD [address] [place] [address] IUD REMOVAL OB/Gynecology Comment on above: IUD REMOVAL Start: 02-24-2024 End: 02-24-2024 Patient encounter procedure 02/24/2024 8:00 AM EDT Office Visit OB/Gynecology [address] [place] [address] Mike Ceballos MD [address] [place] [address] IUD Removal OB/Gynecology Comment on above: IUD Removal Start: 01-31-2024 Covid-19 Vaccine ( season) Covid-19 Vaccine ( season) [facility] Start: 01-31-2024 Influenza vaccination [facility] Start: 11-25-2023 End: 02-24-2024 Thyrotropin [Units/volume] in Serum or Plasma [facility] Work Phone: Comment on above: Expected: 11/25/2023 , Expires: 02/24/2024 Start: 01-30-2023 Covid-19 Vaccine ( season) Covid-19 Vaccine ( season) [facility] Start: 01-30-2023 Influenza vaccination Influenza Vacc ine (#1) [facility] Start: 2022 Pap Testing Pap Testing [facility] Start: 06-01-2022 Depression Assessment Depression Ass essment [facility] Start: 2020 Urine microalbumin profile DTaP,Tdap,Td Vaccine (1 - Tdap) [facility] Start: 01-31-2020 Influenza vaccination Flu vaccine (# 1) [facility] [place], [place] Start: 08-21-2019 Chlamydia Screening (18-24) Chlamydia Screening (18-24) [facility] Start: 08-21-2019 GC (Gonorrhea) Scree james (18-24) GC (Gonorrhea) Screening (18-24) [facility] Start: 08-21-2019 Hepatitis C Screening Hepatitis C [facility] Start: 08-21-2019 Hepatitis C screening Hepatitis C [facility] Start: 08-21-2019 HIV Screening HIV Screening [facility] Start: 2017 Meningococcal B Vacc ine (1 of 2 - Standard) Meningococcal B Vaccine (1 of 2 - Standard) [facility] Start: 2017 Meningococcal B Vacc ine: Consider Based On Risk (1 of 2 - Patient Seeks Protection) Meningococcal B Vaccine: Consider Based On Risk (1 of 2 - Patient Seeks Protection) [facility] Start: 2017 Screening for Chlamy jennifer trachomatis Chlamydia screen [place], [place] Start: 2016 HIV screening HIV screen [place], [place] Start: 08-21-2015 Peds To Adult Transi tion Annual Assessment Peds To Adult Transition Annual Assessment [facility] Start: 2013 Peds To Adult Transi tion Initial Discussion Peds To Adult Transition Initial Discussion [facility] Start: 2010 HPV Vaccine (1 - 2-d ose series) HPV Vaccine (1 - 2-dose series) [facility] Start: 05-23-2002 Hepatitis B vaccine (3 of 3 - 3-dose primary series) Hepatitis B vaccine (3 of 3 - 3-dose primary series) [place] Start: 02-20-2002 Covid-19 Vaccine (#1) Covid-19 Vacci ne (#1) [facility] Start: 2001 Hepatitis B Vaccine (1 of 3 - 3-dose series) Hepatitis B Vaccine (1 of 3 - 3-dose series) [facility] Start: 2001 Hepatitis C screening Hepatitis C johnson decker [place], [place] Bacteria identified in Urine by Culture BACTERIAL CULTURE, URINE Microbiology Routine with uncertain dates, antepartum 08/11/2024 9:34 AM EDT [facility] Chlamydia trachomatis+Neisseria gonorrhoeae DNA [Presence] in Unspecified specimen by SANTY with probe detection GONORRHEA/CHLAMYDIA NAAT Lab Routine with uncertain dates, antepartum 08/11/2024 9:34 AM EDT [facility] End: 09-09-2024 Choriogonadotropin.beta subunit [Units/volume] in Serum or Plasma HCG QUANTITATIVE Lab Routine with uncertain dates, antepartum 2x per week for 8 Occurrences starting 08/11/2024 until 09/09/2024, 1 completed [facility] Comment on above: 2x per week for 8 Oc currences starting 08/11/2024 until 09/09/2024, 1 completed Removal intrauterine device iud REMOVE INTRAUTERINE DEVICE Procedures Routine Encounter for IUD removal Ordered: 01/18/2024 [facility] Work Phone: Comment on above: Ordered: 01/18/2024 Removal intrauterine device iud REMOVE INTRAUTERINE DEVICE Procedures Routine Encounter for IUD removal Ordered: 05/11/2024 [facility] Work Phone: Comment on above: Ordered: 05/11/2024 TRICHOMONAS VAGINALI S NAAT TRICHOMONAS VAGINALIS NAAT Lab Routine with uncertain dates, antepartum 08/11/2024 9:34 AM EDT [facility] Immunizations Immunization Date Immunization Notes Care Provider Duc patel 06-04-2020 tetanus toxoid, reduced diphtheria toxoid, and acellular pertussis vaccine, [place], [place] 03-07-2019 influenza virus vaccine, unspecified formulation Kiki Milan REMOTE SENSING PROGRAM MANAGER.CHILD NURSE Work Phone: [facility] NEGATED: Highlighted row has not occurred!07-23-2020 influenza, injectable, quadrivalent, preservative free Kiki Armington REMOTE SENSING PROGRAM MANAGER.CHILD NURSE Work Phone: [facility] Comment on above: Deferred: Patient Re fused - Not in patient's med bin at time of discharge & patient did not want to wait for it to come from pharmacy Payers Date Payer Category Payer Self-pay 2024 [facility] [id number] 2024 Unknown [id number] 2023 Unknown [id number] 2021 Unknown [id number] .[id number] 2020 Unknown [employer] PL[employer] OF [facility] [employer] [facility] [id number] 2020-Present [phone] [address] [place] [address] [id number] .[id number] 2001 Unknown [id number] 2.16.840.1.125411.3.579.2 .479 2001 Unknown [id number] 2.16840.1.916850.3.579.2 .479 2001 Unknown [id number] 2.16840.1.539441.3.579.2 .479 2001 Unknown [id number] 2.16.840.1.514142.3.579.2 .479 2001 Unknown [id number] 2.16840.1.786044.3.579.2 .479 2001 Unknown [id number] 2.16.840.1.626253.3.579.2 .479 2001 Unknown [id number] 2.16.840.1.048493.3.579.2 .479 2001 Unknown [id number] 2.16.840.1.182185.3.579.2 .479 Unknown [id number] 2.16.840.1.685039.3.579.2 .462 Unknown [id number] 2.16.840.1.358484.3.579.2 .462 Unknown [id number] 2.16.840.1.340731.3.579.2 .462 Unknown [id number] 2.16.840.1.535314.3.579.2 .462 Unknown [id number] 2.16.840.1.857729.3.579.2 .462 Unknown [id number] 2.16.840.1.165636.3.579.2 .462 Unknown [id number] 2.16.840.1.458513.3.579.2 .462 Unknown [id number] 2.16.840.1.911289.3.579.2 .462 Unknown [id number] 2.840.1.153079.3.579.2 .462 Unknown [id number] 2.840.1.472163.3.579.2 .462 Unknown [id number] 2.840.1.118066.3.579.2 .462 Unknown [id number] 2.840.1.577374.3.579.2 .462 Unknown [id number] 2.16.840.1.916924.3.579.2 .462 Unknown [id number] 2.16.840.1.115854.3.579.2 .462 Unknown [id number] 2.840.1.465921.3.579.2 .462 Unknown [id number] 2.840.1.540561.3.579.2 .462 Unknown [id number] 2.840.1.049479.3.579.2 .462 Unknown [id number] 2.16.840.1.724714.3.579.2 .462 Unknown [id number] 2.16.840.1.283046.3.579.2 .462 Unknown [id number] 2.16.840.1.664817.3.579.2 .462 Unknown [id number] 2.16840.1.154587.3.579.2 .462 Unknown [id number] 2.16.840.1.297268.3.579.2 .462 Unknown [id number] 2.16.840.1.978120.3.579.2 .462 Unknown [id number] 2.16.840.1.777882.3.579.2 .462 Unknown [id number] 2.16.840.1.600602.3.579.2 .462 Unknown [id number] 2.16.840.1.682504.3.579.2 .462 Unknown [id number] 2.16.840.1.384243.3.579.2 .462 Unknown [id number] 2.16.840.1.186550.3.579.2 .462 Unknown [id number] 2.16.840.1.296943.3.579.2 .462 Unknown [id number] 2.16.840.1.640206.3.579.2 .462 Unknown [id number] 2.16.840.1.923202.3.579.2 .462 Unknown [id number] 2.16.840.1.029269.3.579.2 .462 Unknown [id number] 2.16.840.1.785753.3.579.2 .462 Unknown [id number] 2.16.840.1.359017.3.579.2 .462 Unknown [id number] 2.16.840.1.896734.3.579.2 .462 Unknown [id number] 2.16.840.1.426629.3.579.2 .462 Social History Date Type Detail Facility Start: 06-04-2020 Tobacco smoking status NHIS Never smoker [place], [place] Start: 06-04-2020 End: 08-11-2024 Tobacco use and exposure Never used [place] Start: 06-04-2020 Alcohol intake Lifetime non-d tone (finding) [place] Start: 06-04-2020 History SDOH Alcohol Frequency 1 [employer] ANGEL LUIS MARIN Start: 2001 Sex Assigned At Not on file [facility] [facility] to SARS-CoV-2 (event) Not sure [facility] Start: 02-26-2023 End: 08-11-2024 Tobacco smoking status NHIS Ex-smoker [facility] History of tobacco use Current smoker [facility] History of tobacco use Cigarette Smoker [facility] Start: 02-26-2023 End: 05-11-2024 Alcohol intake Current drinker of alcohol (finding) [facility] Start: 02-26-2023 End: 06-08-2023 History of Social function [facility] Start: 02-26-2023 End: 06-08-2023 Tobacco use panel [facility] National Score (1-100), lower number is lower risk 48 [facility] Start: 06-08-2023 Education 13 [facility] Start: 06-29-2024 End: 08-12-2024 Alcoholic beverage intake Ex-drinker (finding) [facility] Start: 07-14-2024 [facility] NEGATED: Highlighted rowStart: NINF History of tobacco use Passive smoker [facility] Functional Status Date Assessment Result Facility 07-23-2020 Are you deaf, or do you have serious difficulty hearing No 07/23/2020 4:53 PM Saira Hi RN No [facility] 07-23-2020 Are you blind, or do you have serious difficulty seeing, even when wearing glasses No 07/23/2020 4:53 PM Saira Hi RN No [facility] 07-23-2020 Do you have serious difficulty walking or climbing stairs No 07/23/2020 4:53 PM Saira Hi RN No [facility] 07-23-2020 Do you have difficul ty dressing or bathing No 07/23/2020 4:53 PM Saira Hi RN No [facility] 07-23-2020 Because of a physica l, mental, or emotional condition, do you have difficulty doing errands alone such as visiting a physician's office or shopping No 07/23/2020 4:53 PM Saira Hi RN No [facility] Mental Status Date Assessment Result Facility 07-23-2020 Because of a physica l, mental, or emotional condition, do you have serious difficulty concentrating, remembering, or making decisions No 07/23/2020 4:53 PM Saira Hi, ULISES No [facility] Clinical Notes 02-26-2023 to 02-10-2025 Telephone Encounter - Dasha Welsh RN - 08/12/2024 10:39 AM EDTTelephone Encounter - Dasha Welsh RN - 08/12/2024 10:39 AM EDTPatient Chacho Pugh MA - 08/11/2024 8:28 AM EDT Note Date & Type Note Facility 02-10-2025 Note [facility] pital M CONSULTATION Referring Provider Navdeep Jeffrey, CNM [address] [facility] [address] [place] [address] SUBJECTIVE Alejandra Kiran is a 24 y.o. [...] History: Diagnosis Date Anorexia sees therapist in [place] Kimberly Burr, was tx in hosptial time 2 Anxiety Bipolar disorder Diagnosed in 2020, hx of SI with hospitalization, [facility] [place] Depression Gestational diabetes mellitus (GDM) TOS (thoracic [...] reduce the ris (more content not included)... [facility] 09-22-2024 Note Consultation has jose christensen requested [...] counseling and care are largely handled at [place] [address] in [place] but she also sees a separate counselor, Kimberly LouisHatton) for therapy s/p 2 incidences of hospitalization for anorexia and for episode of suicidal ideation. She states she is stable and under control. Alejandra had a cervical rib removed for thoracic outlet syndrome. She is a twin from an IVF . She desires NIPT/Carrier screening. Imagin. Nava intrauterine with cardiac activity present at 10w 6d with an HERBIE of 04/14/2025. 2. [place] rump length measurement are consistent with supplied dating. 3. Anatomic detail is extremely limited at this early gestational age. No gross abnormalities were noted on this examination. 4. Normal uterus and adnexa. 5. Absence of free fluid in the pelvis. Please refer to the ultrasound report for full details. [facility] Counseling Summary I reviewed the information [...] topics are listed above. Martine Llanes MD [facility] Physician, Maternal- Medicine [facility] 08-12-2024 Telephone encounter Note Patient transferred care for remainder of . She was seen in our office for 1 visit. Please bill all visits. Dasha Welsh RN [facility] 08-12-2024 Miscellaneous Notes Patient transferred care for remainder of . She was seen in our office for 1 visit. Please bill all visits. Dasha Welsh RN documented in this encounter [facility] 08-11-2024 Instructions Chacho Redman MA - 08/11/2024 8:31 AM EDT Please select the following link to access the [facility] Your Guide to a Healthy . [email or web address] documented in this encounter [facility] 08-11-2024 Note HNO ID: [id number] Author: CHACHO REDMAN MA Service: ? Author Type: Manager Safe Type: Progress Notes Filed: 08/11/2024 15:56 Note Text: OB point of care ultrasound was performed. See imaging tab for details. Chacho Redman MA [facility] 08-11-2024 History of Presen t illness Narrative OB point of care ultrasound was performed. See imaging tab for details. Chacho Redman MA *Patient is a twin but mother had IVF *Pt has a history of depression/anxiety/Bipoar 2 diagnosed in [address] Frannie Hudson at [place] [address] in [place]. She states that she has had 2 inpatient mental hospitalizations for this the last 1 being in 2020. She states she last had suicidal thoughts in 2020. Discussed increased risks of depression during and and importance of reporting the development or worsening of symptoms should they occur. *She has a history of anorexia [facility]She states she has had inpatient treatment for [...] the following (please check all that apply)? 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 As applicable, any other physician, advance practice provider, medical student, or other health professional student that will be observing or involved in the sensitive examination for educational or training purposes was discussed with the Patient or Authorized Corporate Learning Consultant. The Patient or Authorized Corporate Learning Consultant has agreed to proceed with the sensitive [...] and when to call office SBIRT Alejandra Christensen Magno was given the 4P's screening tool. Alejandra [...] prhanane Carranza APRN.CNM documented in this encounter [facility] 08-09-2024 Note HNO ID: [id number] Author: CHRISTIANNE CARRANZA APRN.CNM Service: ? Author Type: Surgical Instrument Maker Type: Progress Notes Filed: 08/11/2024 15:56 Note Text: *Patient is a twin but mother had IVF *Pt has a history of depression/anxiety/Bipoar 2 diagnosed in [address] Frannie Hudson at [place] [address] in [place]. She states that she has had 2 inpatient mental hospitalizations for this the last 1 being in 2020. She states she last had suicidal thoughts in 2020. Discussed increased risks of depression during and and importance of reporting the development or worsening of symptoms should they occur. *She has a history of anorexia and sees a therapist at [facility] in [facility].-She states she has had inpatient treatment for [...] the following (please check all that apply)? 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 [facility] 08-09-2024 Telephone encounter Note Patient called back. Can call her around 10:30 or 11:00 today. Thank you. [facility] 08-09-2024 Miscellaneous Notes Patient called back. Can call her around 10:30 or 11:00 today. Thank you. Left message for patient to return phone call to complete nurse intake questions for her upcoming appointment. Patient has an appointment with Christianne Carranza for NOB appointment. I am here today if she calls back or transfer to [facility] documented in this encounter [facility] 08-09-2024 Telephone encounter Note Left message for patient to return phone call to complete nurse intake questions for her upcoming appointment. Patient has an appointment with Christianne Carranza for NOB appointment. I am here today if she calls back or transfer to [facility] 06-29-2024 Note HNO ID: [id number] Author: MIKE CEBALLOS MD Service: ? 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 As applicable, any other physician, advance practice provider, medical student, or other health professional student that will be observing or involved in the sensitive examination for educational or training purposes was discussed with the Patient or Authorized Corporate Learning Consultant. 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 As applicable, any other physician, advance practice provider, medical student, or other health professional student that will be observing or involved in the sensitive examination for educational or training purposes was discussed with the Patient or Authorized Corporate Learning Consultant. The Patient or Authorized Corporate Learning Consultant has agreed to proceed with the sensitive [...] external genitalia normal, normal Bartholin's glands, urethra, Edith Endave's glands, no vulvar lesions, no cervical lesions, [...] Mike Ceballos MD documented in this encounter [facility] 05-11-2024 Note HNO ID: [id number] Author: MIKE CEBALLOS MD Service: ? 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 She is not having any pain. Her appointment on 05/18 is to remove the IUD. Offered a Thursday appointment with AT. Patient declined. Scheduled on 05/11. Patient to call if she chooses to come in for a sooner appointment or with another provider. Flory Manning RN [facility] 05-05-2024 Miscellaneous Notes Patient called. She is [...] Julia Chapa RN documented in this encounter [facility] 05-05-2024 Telephone encounter Note Noe placed 02/26/2023. Please see Pt's mychart message. Julia Chapa RN [facility] 01-18-2024 Telephone encounter Note Patient called and appointment scheduled. Hellen Campoverde RN [facility] 01-18-2024 Miscellaneous Notes Patient called and appointment scheduled. Hellen Campoverde RN filed Please file order in AT absence. Will call Pt to get scheduled once order is filed. Julia Chapa RN Patient is calling requesting to have IUD Liletta removed and would like this with Ayo Ceballos. Please advise patient once order is placed documented in this encounter [facility] 01-18-2024 Telephone encounter Note filed [facility] Work Phone: 01-18-2024 Telephone encounter Note Please file order in AT absence. Will call Pt to get scheduled once order is filed. Julia Chapa RN [facility] 01-18-2024 Telephone encounter Note Patient is calling requesting to have IUD Liletta removed and would like this with Ayo Ceballos. Please advise patient once order is placed [facility] 11-25-2023 Note HNO ID: [id number] Author: ERICA BEVERLY MA Service: ? Author Type: Freelance Web Designer Type: Progress Notes Filed: 11/25/2023 09:37 Note Text: . [facility] 11-25-2023 History of Presen t illness Narrative . Alejandra Kiran is a 23 year old female who presents for problem visit wishing to discuss fertility related to her progestin IUD, Liletta and parental hx of IVF. Reports irregular menses related to anorexia [id number] resolved [address] IUD place 2020. Menarche ~ 13 yo and regular until weight loss to 106. Now 160, 5'8. Monthly/cyclic discharge on underwear.. 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 TSH Prepregnacy discussion, start PNVs Lengthy conversation >45 min Mike Ceballos MD documented in this encounter [facility] 11-25-2023 Note HNO ID: [id number] Author: MIKE CEBALLOS MD Service: ? Author Type: Physician Type: Progress Notes Filed: 11/25/2023 09:37 Note Text: Alejandra Kiran is a 23 year old female who presents for problem visit wishing to discuss fertility related to her progestin IUD, Liletta and parental hx of IVF. Reports irregular menses related to anorexia [id number] IUD [address] 2020. Menarche ~ 13 yo and regular until weight loss to 106. Now 160, 5'8. Monthly/cyclic discharge on underwear.. 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 TSH Prepregnacy discussion, start PNVs Lengthy conversation >45 min Mike Ceballos MD [facility] 02-26-2023 History of Presen t illness Narrative [...] OB History No obstetric history on file. 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 History Comments: Sexual Activity: Yes; Male Contraception: [...] 3 - Low documented in this encounter [facility] Evaluation note Diagnosis Secondary amenorrhea- Primary Absence of menstruation [facility] Diagnosis Irregular menses- Primary Irregular menstrual cycle Intolerance to cold Other general symptoms [facility] Diagnosis Encounter for IUD removal- Primary Encounter for removal of intrauterine contraceptive device documented in this encounter [facility] note* Diagnosis Encounter for IUD removal- Primary Encounter for removal of intrauterine contraceptive device documented in this encounter [facility] note* Diagnosis Encounter for gynecological examination (general) (routine) without abnormal findings- Primary Attempting to conceive documented in this encounter [facility] note* Diagnosis with uncertain dates, antepartum- Primary state, incidental 6 weeks gestation of state, incidental Threatened miscarriage Threatened , unspecified as to episode of care Bipolar 2 disorder (HCC) Other bipolar disorders Anorexia nervosa Anxiety Anxiety state, unspecified Depression, unspecified depression type Cholinergic urticaria Encounter for supervision of high risk in first trimester, antepartum documented in this encounter [facility] for referral (narrative)* Outpatient Procedure (Routine) - Pending Review Specialty Diagnoses / Procedures Referred By Jose Roberto rowley Referred To Contact [facility] Diagnoses Encounter for IUD removal Procedures REMOVE INTRAUTERINE DEVICE REMOVE INTRAUTERINE DEVICE Dell Alonso MD [address] [place] [address] [facility] [place] [address] Referral ID Status Reason Start Date Expiration Date Visits Requested Visits Authorized [id number] Pending Review Auto-Generat ed Referral 01/18/2024 01/17/2025 1 1 [facility] for referral (narrative)* Outpatient Procedure (Routine) - New Request Specialty Diagnoses / Procedures Referred By Jose Roberto rowley Referred To Contact [facility] Diagnoses Encounter for IUD removal Procedures REMOVE INTRAUTERINE DEVICE REMOVE INTRAUTERINE DEVICE Mike Ceballos MD [address] [place] [address] [facility] [place] [address] Referral ID Status Reason Start Date Expiration Date Visits Requested Visits Authorized [id number] New Request Auto-Generat ed Referral 05/11/2025 1 1 [facility] Summary Purpose Family History No Family History Records FoundNo Family History Records FoundNo Family History Records FoundNo Family History Records FoundNo Family History Records Found Advance Directives No Advanced Directives Records FoundLatest Code Status on File Code Status Date Activated Date Inactivated Comments Full Code 06/05/2020 5:11 PM Additional Source Comments INFORMATION SOURCE (unrecogn ized section and content) DATE CREATED AUTHOR 03/19/2020 [facility] DATE CREATED AUTHOR AUTHOR'S ORGANIZ ATION 06/12/2020 [facility] DATE CREATED AUTHOR AUTHOR'S ORGANIZ ATION 08/25/2024 [facility] DATE CREATED AUTHOR AUTHOR'S ORGANIZ ATION 02/12/2025 [facility] DATE CREATED AUTHOR AUTHOR'S ORGANIZ ATION 03/04/2025 [facility] Source Comments (unrecognize d section and content) In the event this informatio n is protected by the Federal Confidentiality of Alcohol and Drug Abuse Patient Records regulations: The Federal rules restrict any use of the information to criminally investigate or prosecute any alcohol or drug abuse patient.[facility] the event this information is protected by the Federal Confidentiality of Alcohol and Drug Abuse Patient Records regulations: The Federal rules restrict any use of the information to criminally investigate or prosecute any alcohol or drug abuse patient.[facility] the event this information is protected by the Federal Confidentiality of Alcohol and Drug Abuse Patient Records regulations: The Federal rules restrict any use of the information to criminally investigate or prosecute any alcohol or drug abuse patient.[facility] the event this information is protected by the Federal Confidentiality of Alcohol and Drug Abuse Patient Records regulations: The Federal rules restrict any use of the information to criminally investigate or prosecute any alcohol or drug abuse patient.[facility] the event this information is protected by the Federal Confidentiality of Alcohol and Drug Abuse Patient Records regulations: The Federal rules restrict any use of the information to criminally investigate or prosecute any alcohol or drug abuse patient.[facility] the event this information is protected by the Federal Confidentiality of Alcohol and Drug Abuse Patient Records regulations: The Federal rules restrict any use of the information to criminally investigate or prosecute any alcohol or drug abuse patient.[facility] Center[facility] the event this information is protected by the Federal Confidentiality of Alcohol and Drug Abuse Patient Records regulations: The Federal rules restrict any use of the information to criminally investigate or prosecute any alcohol or drug abuse patient.[facility] Center[facility] the event this information is protected by the Federal Confidentiality of Alcohol and Drug Abuse Patient Records regulations: The Federal rules restrict any use of the information to criminally investigate or prosecute any alcohol or drug abuse patient.[facility] the event this information is protected by the Federal Confidentiality of Alcohol and Drug Abuse Patient Records regulations: The Federal rules restrict any use of the information to criminally investigate or prosecute any alcohol or drug abuse patient.[facility] Center[facility] the event this information is protected by the Federal Confidentiality of Alcohol and Drug Abuse Patient Records regulations: The Federal rules restrict any use of the information to criminally investigate or prosecute any alcohol or drug abuse patient.[facility] Center[facility] the event this information is protected by the Federal Confidentiality of Alcohol and Drug Abuse Patient Records regulations: The Federal rules restrict any use of the information to criminally investigate or prosecute any alcohol or drug abuse patient.[facility] Center[facility] the event this information is protected by the Federal Confidentiality of Alcohol and Drug Abuse Patient Records regulations: The Federal rules restrict any use of the information to criminally investigate or prosecute any alcohol or drug abuse patient.[facility] Reason for Visit (unrecogniz ed section and content) Reason Comments Establish Care Having sym ptoms- mood swings- missed menses- heartburn- cramps- bloating Reason Comments Discussion Reason Comments Orders Reason Onset Date Comments IUD Removal 05/11/2024 Specialty Diagnoses / Procedures Referred By Jose Roberto rowley Referred To Contact [facility] Diagnoses Encounter for IUD removal Encounter for insertion of intrauterine contraceptive device Procedures REMOVE INTRAUTERINE DEVICE REMOVE INTRAUTERINE DEVICE LEVONORGESTREL IU 52MG 3 YR INSERT INTRAUTERINE DEVICE Dell Alonso MD [address] [place] [address] [facility] [address] [place] [address] Referral ID Status Reason Start Date Expiration Date Visits Requested Visits Authorized [id number] Authorized Auto-Generat ed Referral 01/19/2024 05/31/2024 2 2 Reason Comments Well Woman Reason Comments Initial OB Visit Reason Comments Transferred Care Reason Comments Appointment Care Teams (unrecognized sec tion and content) Policy Adviser Relationship Specialty Start Date End Date Bertha Wood [address] [place], [place] [id number] PCP - General Family Medicine 06/28/20 Marie Carrillo DO Orthopedics 01/29/16 Policy Adviser Relationship Specialty Start Date End Date Bertha Wood [address] [place] [address] PCP - General Family Medicine 06/28/20 Marie Carrillo DO Orthopedics 01/29/16 Policy Adviser Relationship Specialty Start Date End Date Bertha Wood [address] [place] [address] PCP - General Family Medicine 06/28/20 Marie Carrillo DO Orthopedics 01/29/16 Policy Adviser Relationship Specialty Start Date End Date Bertha Wood [address] [place] [address] PCP - General Family Medicine 06/28/20 Marie Carrillo DO Orthopedics 01/29/16 Policy Adviser Relationship Specialty Start Date End Date Bertha Wood [address] [place] [address] PCP - General Family Medicine 06/28/20 Marie Carrillo DO Orthopedics 01/29/16 Policy Adviser Relationship Specialty Start Date End Date Bertha Wood [address] [place] [address] PCP - General Family Medicine 06/28/20 Marie Carrillo DO Orthopedics 01/29/16 Policy Adviser Relationship Specialty Start Date End Date Bertha Wood [address] [place] [address] PCP - General Family Medicine 06/28/20 Marie Carrillo DO Orthopedics 01/29/16 Policy Adviser Relationship Specialty Start Date End Date Bertha Wood [address] [place] [address] PCP - General Family Medicine 06/28/20 Marie Carrillo DO Orthopedics 01/29/16 Policy Adviser Relationship Specialty Start Date End Date Bertha Wood [address] [place] [address] PCP - General Family Medicine 06/28/20 Marie Carrillo DO Orthopedics 01/29/16 Policy Adviser Relationship Specialty Start Date End Date Bertha Wood [address] [place] [address] PCP - General Family Medicine 06/28/20 Marie [...] BE BASED ON THE PRIMARY CLINICAL RECORDS. [employer] provides no warranty or guarantee of the accuracy or completeness of information in this document.
[2025-03-04] MEDS: Lactated Ringers 1,000 ML 999 ML IV ×2 (14:20→15:58)
[2025-03-04 14:23] LABS: Hematocrit 34.6 % (37-47); Hemoglobin 11.9 g/dL (12.0-15.0); Mean Corp Hgb Conc 34.4 g/dL (32-36); Mean Corpuscular Volume 90.3 fL (81-99); Mean Platelet Vol. 11.3 fl (6.2-12.0); Platelet Count 179 K/mm3 (150-450); RBC Distribution Width CV 13.4 % (11.6-14.6); RBC Distribution Width SD 44.1 fl (35.1-43.9); Red Blood Count 3.83 M/mm3 (4.2-5.4); White Blood Count 11.4 K/mm3 (4.4-11.0)
[2025-03-04 14:58] LABS: Creatinine, Urine (random) 26.00 mg/dL (28.00-217.00); Protein, Urine (Random) 9.8 mg/dL (0.0-12.0); Protein:Creat Ratio 378 mg/g CRE (0-200)
[2025-03-04 15:00] LABS: AST(SGOT) 30 U/L (<=31); Alanine Aminotransfer ALT/SGPT 16 U/L (<=34); Estimated Creatinine Clearance 190.37 ml/min (50-250); Uric Acid 7.3 mg/dL (2.6-6.0)
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
== END 2025-03-04 17:20 | disposition home or self-care (01) ==
LOC: WPOUT 13:36 → WP 13:37
PROVIDERS: PCP Family Medicine; Visit Provider Obstetrics & Gynecology
DX: O12.13 Gestational proteinuria, third trimester (principal); O99.891 Other specified diseases and conditions complicating pregnancy; H53.8 Other visual disturbances; H53.2 Diplopia; O21.2 Late vomiting of pregnancy; O26.893 Other specified pregnancy related conditions, third trimester; R51.9 Headache, unspecified; Z3A.34 34 weeks gestation of pregnancy
CPT/HCPCS: 96360; 96361; 36415; 59025; 59050; 82565; 82570; 84156; 84450; 84460; 84550; 85027; 99221; G0378

== ENCOUNTER 2025-03-05 09:27 | Emergency (ER) | payer BC, SELFPAY ==
[2025-03-05 09:27] VITALS: BP 143/88; PULSE 100; RESP 20; TEMP 37.2; O2SAT 100; BMI 35.4
--- NOTE | 2025-03-05 09:32 | ED.RN ---
pt bp elevated in triage- this rn called ob. ob charge nurse states that is pts baseline bp and she is to be elevated in er
--- NOTE | 2025-03-05 09:33 | EX.ED.DYSGE1 ---
HPI History of Present Illness Chief Complaint: Nausea/Vomiting/Diarrhea Informant: patient Onset/Context/Timing Onset: Days (3) Context: Gradual Onset Timing: Continuous Quality: Aching, cramping Location: Abdomen Worsened by: Nothing Relieved by: Nothing Narrative Narrative: Patient presents with nausea, vomiting, and diarrhea that has been constant for the past 3 days. Patient states her diarrhea is watery. Patient denies any melena or hematochezia. Patient states she has been unable to keep anything down. Patient denies any hematemesis or coffee-ground emesis. Patient admits to low-grade fever. states that the patient temperature is 99.4. Patient also admits to some subjective chills. Patient admits to some pain in her low back. Patient is approximately 34 weeks . [facility] Medical History Bipolar disorder Eating disorder Generalized anxiety disorder Hx of thoracic outlet syndrome Home Medications ?Medication ?Instructions ?Recorded ?Last Taken ?Type docosahexaenoic acid 200 mg 200 mg PO DAILY 08/12/24 02/28/25 History capsule ( DHA) fluoxetine 40 mg capsule (Prozac) 60 mg PO QDAY 08/12/24 03/01/25 History levocetirizine 5 mg tablet 5 mg PO QDAY 08/12/24 03/01/25 History lurasidone 20 mg tablet (Latuda) 20 mg PO QDAY 08/12/24 02/28/25 History ondansetron 4 mg disintegrating 4 mg PO Q8H PRN nausea and 08/22/24 02/28/25 Rx tablet vomiting #30 tabs promethazine 12.5 mg tablet 12.5 mg PO Q6H PRN nausea and 08/30/24 02/28/25 Rx vomiting 30 days #120 tabs prochlorperazine maleate 10 mg 10 mg PO Q8H PRN nausea and 10/05/24 Unknown Rx tablet (Compazine) vomiting #90 tabs Held on 02/15/25. Instructions: Pt has been DC'd flash glucose scanning reader #1 ea 02/01/25 Unknown Rx (FreeStyle Lucio 2 [place]) flash glucose sensor (FreeStyle #1 ea 02/01/25 Unknown Rx Lucio 2 Sensor kit) blood sugar diagnostic (Blood #120 ea 02/09/25 Unknown Rx Glucose Test strips) blood-glucose meter #1 ea 02/09/25 Unknown Rx famotidine 20 mg tablet (Pepcid) 20 mg PO BID #60 tabs 02/09/25 03/01/25 Rx lancets #200 ea 02/09/25 Unknown Rx metoclopramide HCl 10 mg tablet 10 mg PO TID nausea #90 tabs 03/03/25 Unknown Rx (Reglan) Allergy/AdvReac Type Severity Reaction Status Date / Time No Known Allergies Allergy Verified 03/05/25 09:30 Family History Grandfather Diabetes CVA (cerebral vascular accident) Grandmother Diabetes Mother Depression Brother Tachycardia Grandmother Thyroid disorder Anxiety Surgical History History of wisdom tooth extraction History of shoulder surgery Social History adopted: No household members: spouse number of children: 0 current occupational status: employed current occupation: [employer] current occupational exposures/hazards: No pets and animals: Yes pets and animals: dog(s) history of recent travel: Yes (July 2024 - ) out of state: Yes out of country: No sexually active: Yes Smoking Status: Former smoker quit date: 11/30/23 second hand exposure: No quit status: quit date established alcohol intake: current alcohol intake frequency: holidays/special occasions only details: Not while substance use type: former substance user Date of last use: 2021 well-balanced diet: daily or most days caffeine: Yes Type: coffee eating out: 1-3 times/week during the past year weight has: remained stable what type of physical activity do you participate in: none puma/taoism: Catholic seatbelt use: always do you feel safe at home: Yes 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 ROS ED Constitutional Constitutional ED: Reports chills, fever(s) and subjective Eyes Eyes: Denies blurry vision or change in vision ENT ENT ED: Denies rhinorrhea or sore throat Cardiovascular Cardiovascular: Denies chest pain or palpitations Respiratory/Chest Respiratory/Chest: Reports dyspnea; Denies cough Gastrointestinal Gastrointestinal: Reports abdominal pain, diarrhea, nausea and vomiting Genitourinary Genitourinary ED: Denies dysuria or hematuria Musculoskeletal Musculoskeletal: Reports back pain; Denies neck pain Integumentary Denies abscess or rash Neurologic Neurologic: Denies headache(s) or weakness Allergic/Immunologic Allergic/Immunologic ED: Denies mouth swelling or urticaria EXAM Physical Exam Const Vital Signs: 03/05/25 09:27 03/05/25 11:09 03/05/25 12:45 Temperature 98.9 F Temperature Source Oral Pulse Rate 100 97 Respiratory Rate 20 H Blood Pressure 143/88 H 139/90 H 139/70 H Blood Pressure Mean 106 106 93 Pulse Ox 100 Oxygen Delivery Method Room Air Positive well nourished and well developed General Appearance ED: well developed and NAD HEENT Reports moist mucous membranes Neck supple and no JVD Resp normal respiratory effort and clear to auscultation bilaterally Cardio regular rate and regular rhythm GI non-tender and non-distended Palpation: soft Neuro oriented x3, CN's II-XII intact bilaterally and no sensory deficits noted Sensorium / Orientation: alert Motor Exam: strength 5/5 throughout Psych mental status grossly normal MDM MDM MDM Narrative Medical decision making narrative: Differential diagnosis includes dehydration, electrolyte abnormality, gastroenteritis, urinary tract infection, preeclampsia, and anxiety. CBC will be obtained to assess for leukocytosis and anemia. Comprehensive metabolic profile will be obtained to assess for hepatic function, renal function, and electrolyte abnormality. Urinalysis will be obtained to assess for urinary tract infection and hematuria. COVID-19, influenza, and RSV PCR was obtained to assess for viral illness. History & Record Review Additional record(s) reviewed:: Prior outpatient record, Prior ED visit and Prior labs Lab Data Attestation: I reviewed the patient's lab results. Lab results narrative: CBC was reviewed and was within normal limits. Comprehensive metabolic profile was reviewed. AST was minimally elevated at 55. ALT was normal. Alkaline phosphatase was 124. The remainder is within normal limits. Urinalysis was reviewed. There is leukocyte esterase of 500. There are 5-10 white blood cells. There are 0-5 epithelial cells. There is 0 bacteria noted. COVID-19 PCR was reviewed and was negative. Influenza PCR was reviewed and was negative for influenza A and influenza B. RSV PCR was reviewed and was negative. Labs: Laboratory Results - last 24 hr 03/05/25 03/05/25 10:05 10:54 WBC 10.7 RBC 3.81 L Hgb 12.1 Hct 34.3 L MCV 90.0 MCH 31.8 MCHC 35.3 RDW Std Deviation 43.7 RDW Coeff of Rosy 13.5 Plt Count 172 MPV 11.2 Immature Gran % (Auto) 2.300 H Neut % (Auto) 89.0 H Lymph % (Auto) 4.1 L [place] % (Auto) 3.9 Eos % (Auto) 0.3 Baso % (Auto) 0.4 Absolute Neuts (auto) 9.5 H Absolute Lymphs (auto) 0.44 L Nucleated RBC % 0.8 Sodium 134 Potassium 4.0 Chloride 102 Carbon Dioxide 19.0 L Anion Gap 13 BUN 7 Creatinine 0.76 Estim Creat Clear Calc 146.51 Est GFR (MDRD) Non-Af 113 BUN/Creatinine Ratio 8.6 L Glucose 95 Calcium 9.0 Total Bilirubin 0.40 AST 55 H ALT 26 Alkaline Phosphatase 124 H Total Protein 6.0 Albumin 3.3 L Globulin 2.7 Albumin/Globulin Ratio 1.2 Urine Color Yellow Urine Clarity Clear Urine pH 7.0 Ur Specific [place] 1.005 Urine Protein 15 H Urine Glucose (UA) Normal Urine Ketones Negative Urine Occult Blood Negative Urine Nitrite Negative Urine Bilirubin Negative Urine Urobilinogen Normal Ur Leukocyte Esterase 500 H Urine RBC 0 SEEN Urine WBC 5-10 SEEN Ur Squamous Epith Cells 0-5 SEEN Urine Bacteria 0 SEEN Urine Mucus 0 SEEN Additional Tests and Interventions Additional Tests or Interventions: Urine culture was ordered. Treatment and Re-Evaluation :: Patient was given IV fluids and Zofran. Patient was able to tolerate p.o. fluids. Patient was advised of her findings. Patient was instructed to use her Zofran ODT as needed for nausea. Patient was instructed to start with small sips of liquids and advance her diet as tolerated. Case was discussed with Dr. Sanabria from MECHANICAL SERVICE TECHNICIAN. He stated the patient could take Imodium as needed for diarrhea. Patient was instructed to follow-up with MECHANICAL SERVICE TECHNICIAN in 1 to 2 days for repeat blood pressure. Patient understood and was agreeable with the plan. All questions were answered. Discharge Plan Triage Chief Complaint: Nausea/Vomiting/Diarrhea ED Provider: Deniz Hopkins Dx/Rx/DC Orders Clinical Impression: Nausea, vomiting, and diarrhea, Instructions: ED , ED Gastroenteritis, Viral (Adult), ED Vomiting (Adult) Prescriptions: No Action DHA 200 mg capsule 200 mg PO DAILY fluoxetine [Prozac] 40 mg capsule 60 mg PO QDAY levocetirizine 5 mg tablet 5 mg PO QDAY lurasidone [Latuda] 20 mg tablet 20 mg PO QDAY Rx Instructions: must administer with food (at least 350 calories) famotidine [Pepcid] 20 mg tablet 20 mg PO BID Qty: 60 6RF ondansetron 4 mg tablet,disintegrating 4 mg PO Q8H PRN (Reason: nausea and vomiting) Qty: 30 4RF promethazine 12.5 mg tablet 12.5 mg PO Q6H PRN (Reason: nausea and vomiting) 30 Days Qty: 120 3RF prochlorperazine maleate [Compazine] 10 mg tablet 10 mg PO Q8H PRN (Reason: nausea and vomiting) Qty: 90 3RF (DME) FreeStyle Lucio 2 Sensor Kit See Rx Instructions .Route Qty: 1 8RF Rx Instructions: As directed (DME) FreeStyle Lucio 2 [place] Misc See Rx Instructions .Route Qty: 1 0RF Rx Instructions: As directed (DME) Blood Glucose Test Strip See Rx Instructions .MEDSUPPLY Qty: 120 5RF Rx Instructions: As directed-fasting & 2 hr post meals (DME) blood-glucose meter Misc See Rx Instructions .MEDSUPPLY Qty: 1 0RF Rx Instructions: As directed- Test fasting and 2 hours after meals (DME) lancets Misc See Rx Instructions .MEDSUPPLY Qty: 200 5RF Rx Instructions: As directed-fasting & 2 hr post meals metoclopramide HCl [Reglan] 10 mg tablet 10 mg PO TID Qty: 90 3RF Primary Care Provider: Taiwo Conde Referrals: Taiwo Conde DO [Primary Care Provider, Family Practice] - 5-7 Days Tiera Mcfarland MD [Med Staff - Active Staff, Obstetrics-Gynecology (OBGYN)] - 1 Day Activity Restrictions/Additional Instructions: Follow-up with your MECHANICAL SERVICE TECHNICIAN in 1 to 2 days to recheck your blood pressure. Start with small sips of water and advance your diet as tolerated. Use Zofran ODT as needed for nausea. Return to the emergency department if worse in any way. Print Language: Khmer Disposition Disposition: Home, Self Care
[2025-03-05] MEDS: 0.9% Normal Saline (1000mL) 1,000 ML 1000 ML IV (10:06)
[2025-03-05 10:13] LABS: Hematocrit 34.3 % (37-47); Hemoglobin 12.1 g/dL (12.0-15.0); Immature Granulocytes Count 0.250 X10^3/uL (0.0-0.0); Mean Corp Hgb Conc 35.3 g/dL (32-36); Mean Corpuscular Volume 90.0 fL (81-99); Mean Platelet Vol. 11.2 fl (6.2-12.0); NRBC Flagged by Analyzer 0.8 % (0-5); POSITIVE DIFFERENTIAL YES; Platelet Count 172 K/mm3 (150-450); RBC Distribution Width CV 13.5 % (11.6-14.6); RBC Distribution Width SD 43.7 fl (35.1-43.9); Red Blood Count 3.81 M/mm3 (4.2-5.4); White Blood Count 10.7 K/mm3 (4.4-11.0)
--- OUTSIDE RECORDS SUMMARY | 2025-03-05 10:14 | XMS RPT_ITS | CCD ---
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 Name Role Phone Unavailable Primary Care Provider Unavailabl e Gerardo GRAY Danuta Unavailable Bertha Wood Primary Care Provider [phone] Marie Carrillo DO Unavailable Bertha Wood Cathy Primary Care Provider [phone] MIKE CEBALLOS Attending Unavailable BEBOIFF, BERTHA CATHY [...] Referring Unavailable Christos, Sundeep Primary Care Unavailable [place] SECURITY PUBLIC SAFETY OFFICER, Nohemi Attending Unavailable Christos, Sundeep Primary Care Unavailable Adán Sanabria Attending Unavailable Christos, Sundeep Referring Unavailable Christos, Sundeep Primary Care Unavailable [place] SECURITY PUBLIC SAFETY OFFICER, Nohemi Attending Unavailable GabrielanthonyTiera Referring Unavailable Jolliff, [...] Translations: [POTATO] Drug Allergy 7 Rash, Hives [facility] (14 sources) Seasonal allergy; Translations: [SEASONAL ALLERGIES] Allergy to substance 8 Other: See Comments, Cough [facility] Medications Current Medications Medication Drug Class(es) [...] Start: 02-10-2023 take 1 capsule by [facility] once daily FLUoxetine (PROZAC) 20 [...] esmer th every 12 (twelve) hours. levonorgestrel 0.425718 mg/hr intrauterine system (7 sources) Progestin, Progestin-containing [...] 03-03-2025 FINGERSTICK GLU 118 mg/dL High 74-106 [facility] Comment on above: Result Comment: VERITO HUMPHRIES OF PATIENT CARE PER NURSING PROTOCOL Performed By: #### L 501.080 ####[facility] [address] [place], [address] CBC W/Diff, Automatedon 10 Absolute Lymph 1.11 X10 3/uL Normal 0.83-4.51 [facility] Comment on above: Performed By: #### L 100.0100 ####[facility] [address] [place], [address] Absolute Neut 12.0 X10 3/uL High 2.0-7.7 [facility] Comment on above: Performed By: #### L 100.0100 ####[facility] [address] [place], [address] Basophils/100 WBC (Bld) 0.4 % Normal 0-1 [facility] Comment on above: Performed By: #### L 100.0100 ####[facility] [address] [place], [address] Eosinophils/100 WBC (Bld) 0.1 % Normal 0-5 [facility] Comment on above: Performed By: #### L 100.0100 ####[facility] [address] [place], [address] Erythrocyte distribution width (RBC) [Ratio] 13.2 % Normal 11.6-14.6 [facility] Comment on above: Performed By: #### L 100.0100 ####[facility] [address] [place], [address] Hematocrit (Bld) [Volume fraction] 32.6 % Low 37-47 [facility] Comment on above: Performed By: #### L 100.0100 ####[facility] [address] [place], [address] Hemoglobin (Bld) [Mass/Vol] 11.3 g/dL Low 12.0-15.0 [facility] Comment on above: Performed By: #### L 100.0100 ####[facility] [address] [place], [address] IG% 1.900 High 0.0-0.9 [facility] Comment on above: Result Comment: IG% - Immature Granulocytes (promyelocytes, myelocytes andmetamyelocytes) > 1% indicates that a LEFT SHIFT is Present. Performed By: #### L 100.0100 ####[facility] [address] [place], [address] Lymphocytes/100 WBC (Bld) 7.9 % Low 19-41 [facility] Comment on above: Performed By: #### L 100.0100 ####[facility] [address] [place], [address] MCH (RBC) [Entitic mass] 31.3 pg Normal 27.0-32.0 [facility] Comment on above: Performed By: #### L 100.0100 ####[facility] [address] [place], [address] MCHC (RBC) [Mass/Vol] 34.7 g/dL Normal 32-36 [facility] Comment on above: Performed By: #### L 100.0100 ####[facility] [address] [place], [address] MCV (RBC) [Entitic vol] 90.3 fL Normal 81-99 [facility] Comment on above: Performed By: #### L 100.0100 ####[facility] [address] [place], [address] Monocytes/100 WBC (Bld) 4.5 % Normal 0-10 [facility] Comment on above: Performed By: #### L 100.0100 ####[facility] [address] [place], [address] Neutrophils/100 WBC (Bld) 85.2 % High 47-70 [facility] Comment on above: Performed By: #### L 100.0100 ####[facility] [address] [place], [address] Nucleated RBC (Bld) [#/Vol] 0.1 10*3/uL Normal 0-5 [facility] Comment on above: Performed By: #### L 100.0100 ####[facility] [address] [place], [address] Platelet mean volume (Bld) [Entitic vol] 11.2 fL Normal 6.2-12.0 [facility] Comment on above: Performed By: #### L 100.0100 ####[facility] [address] [place], [address] Platelets (Bld) [#/Vol] 179 10*3/uL Normal 150-450 [facility] Comment on above: Performed By: #### L 100.0100 ####[facility] [address] [place], [address] RBC (Bld) [#/Vol] 3.61 10*6/uL Low 4.2-5.4 [facility] Comment on above: Performed By: #### L 100.0100 ####[facility] [address] [place], [address] RDW SD 43.1 fl Normal 35.1-43.9 [facility] Comment on above: Performed By: #### L 100.0100 ####[facility] [address] [place], [address] WBC (Bld) [#/Vol] 14.1 10*3/uL High 4.4-11.0 [facility] Comment on above: Performed By: #### L 100.0100 ####[facility] [address] [place], [address] Comprehensive Metabolic Prof ilon 03-03-2025 Albumin [Mass/Vol] 3.2 g/dL Low 3.5-5.0 [facility] Comment on above: Performed By: #### L 500.4050 ####[facility] [address] [place], [address] Albumin/Globulin [Mass ratio] 1.2 {ratio} Normal 0.9-2.4 [facility] Comment on above: Performed By: #### L 500.4050 ####[facility] [address] [place], [address] ALK PHOS 114 U/L High 35-104 [facility] Comment on above: Performed By: #### L 500.4050 ####[facility] [address] [place], [address] ALT [Catalytic activity/Vol] 15 U/L Normal <=34 [facility] Comment on above: Performed By: #### L 500.4050 ####[facility] [address] [place], [address] AST [Catalytic activity/Vol] 26 U/L Normal <=31 [facility] Comment on above: Performed By: #### L 500.4050 ####[facility] [address] [place], [address] Bilirubin [Mass/Vol] 0.22 mg/dL Normal 0.00-1.30 [facility] Comment on above: Performed By: #### L 500.4050 ####[facility] [address] [place], [address] BUN/CRE 16.5 RATIO Normal 10-20 [facility] Comment on above: Performed By: #### L 500.4050 ####[facility] [address] [place], [address] Calcium [Mass/Vol] 9.1 mg/dL Normal 7.6-11.0 [facility] Comment on above: Performed By: #### L 500.4050 ####[facility] [address] [place], [address] Chloride [Moles/Vol] 105 mmol/L Normal 98-108 [facility] Comment on above: Performed By: #### L 500.4050 ####[facility] [address] [place], [address] CO2 [Moles/Vol] 17.4 mmol/L Low 21.0-32.0 [facility] Comment on above: Performed By: #### L 500.4050 ####[facility] [address] [place], [address] Creatinine [Mass/Vol] 0.51 mg/dL Low 0.70-1.20 [facility] Comment on above: Performed By: #### L 500.4050 ####[facility] [address] [place], [address] ECRCL 216.86 ml/min Normal 50-250 [facility] Comment on above: Performed By: #### L 500.4050 ####[facility] [address] [place], [address] GAP 13 Normal 5-15 [facility] Comment on above: Performed By: #### L 500.4050 ####[facility] [address] [place], [address] GFR/1.73 sq M.predicted among non-blacks MDRD (S/P/Bld) [Vol rate/Area] 134 mL/min/{1.73_m2} Normal >60 [facility] Comment on above: Result Comment: mL/m in/1.73m2 CKD-EPI Creatinine Equation (2020) Performed By: #### L 500.4050 ####[facility] [address] [place], [address] Globulin (S) [Mass/Vol] 2.7 g/dL Normal 2.2-4.2 [facility] Comment on above: Performed By: #### L 500.4050 ####[facility] [address] [place], [address] Glucose [Mass/Vol] 112 mg/dL High 70-99 [facility] Comment on above: Performed By: #### L 500.4050 ####[facility] [address] [place], [address] Potassium [Moles/Vol] 4.1 mmol/L Normal 3.3-5.1 [facility] Comment on above: Performed By: #### L 500.4050 ####[facility] [address] [place], [address] Sodium [Moles/Vol] 135 mmol/L Normal 133-145 [facility] Comment on above: Performed By: #### L 500.4050 ####[facility] [address] [place], [address] T PROT 6.0 g/dL Normal 5.9-8.4 [facility] Comment on above: Performed By: #### L 500.4050 ####[facility] [address] [place], [address] Urea nitrogen [Mass/Vol] 8 mg/dL Normal 4-19 [facility] Comment on above: Performed By: #### L 500.4050 ####[facility] [address] [place], [address] Rule out Beta Strep (Grp. B) on 03-03-2025 TIFFANY Group B Beta Streptococcus is not isolated. Normal [facility] Comment on above: Performed By: #### M 100.3400 ####[facility] [address] [place], [address] 24 HR UR Creatinine Clearanc yanet 03-02-2025 CREAT CLEARANCE 121 ml/min Normal 100-200 [facility] Comment on above: Result Comment: AMENDED REPORT 03/02/252143 CREAT CLEARANCE previously reported as: 201 H ml/min Performed By: #### L 500.4507, L500.9000, L502.000 ####[facility] [address] [place], [address] 24 HR Urine Creatinineon UR.CREAT/24hr 954.5 mg/24 hr Normal 740.0-1540.0 [facility] Comment on above: Performed By: #### L 500.4507, L500.9000, L502.000 ####[facility] [address] [place], [address] Basic Metabolic Profile (BMP )on 03-02-2025 BUN/CRE 18.6 RATIO Normal 10-20 [facility] Comment on above: Performed By: #### L 500.2500 ####[facility] [address] [place], [address] Calcium [Mass/Vol] 9.3 mg/dL Normal 7.6-11.0 [facility] Comment on above: Performed By: #### L 500.2500 ####[facility] [address] [place], [address] Chloride [Moles/Vol] 103 mmol/L Normal 98-108 [facility] Comment on above: Performed By: #### L 500.2500 ####[facility] [address] [place], [address] CO2 [Moles/Vol] 18.4 mmol/L Low 21.0-32.0 [facility] Comment on above: Performed By: #### L 500.2500 ####[facility] [address] [place], [address] Creatinine [Mass/Vol] 0.57 mg/dL Low 0.70-1.20 [facility] Comment on above: Performed By: #### L 500.2500 ####[facility] [address] [place], [address] ECRCL 194.03 ml/min Normal 50-250 [facility] Comment on above: Performed By: #### L 500.2500 ####[facility] [address] [place], [address] GAP 13 Normal 5-15 [facility] Comment on above: Performed By: #### L 500.2500 ####[facility] [address] [place], [address] GFR/1.73 sq M.predicted among non-blacks MDRD (S/P/Bld) [Vol rate/Area] 131 mL/min/{1.73_m2} Normal >60 [facility] Comment on above: Result Comment: mL/m in/1.73m2 CKD-EPI Creatinine Equation (2020) Performed By: #### L 500.2500 ####[facility] [address] [place], [address] Glucose [Mass/Vol] 103 mg/dL High 70-99 [facility] Comment on above: Performed By: #### L 500.2500 ####[facility] [address], [address] Potassium [Moles/Vol] 4.1 mmol/L Normal 3.3-5.1 [facility] Comment on above: Performed By: #### L 500.2500 ####[facility] [address] [place], [address] Sodium [Moles/Vol] 134 mmol/L Normal 133-145 [facility] Comment on above: Performed By: #### L 500.2500 ####[facility] [address] [place], [address] Urea nitrogen [Mass/Vol] 11 mg/dL Normal 4-19 [facility] Comment on above: Performed By: #### L 500.2500 ####[facility] [address] [place], [address] Bedside Glucoseon 03-02-2025 FINGERSTICK GLU 157 mg/dL High 74-106 [facility] Comment on above: Result Comment: VERITO GEMENT OF PATIENT CARE PER NURSING PROTOCOL Performed By: #### L 501.080 ####[facility] [address] [place], [address] FINGERSTICK GLU 105 mg/dL Normal 74-106 [facility] Comment on above: Result Comment: VERITO GEMENT OF PATIENT CARE PER NURSING PROTOCOL Performed By: #### L 501.080 ####[facility] [address] [place], [address] FINGERSTICK GLU 135 mg/dL High 74-106 [facility] Comment on above: Result Comment: VERITO GEMENT OF PATIENT CARE PER NURSING PROTOCOL Performed By: #### L 501.080 ####[facility] [address] [place], [address] FINGERSTICK GLU 127 mg/dL High 74-106 [facility] Comment on above: Result Comment: VERITO GEMENT OF PATIENT CARE PER NURSING PROTOCOL Performed By: #### L 501.080 ####[facility] [address] [place], [address] CBC W/Diff, Automatedon 10-0 2-2024 Absolute Lymph 1.21 X10 3/uL Normal 0.83-4.51 [facility] Comment on above: Performed By: #### L 100.0100 ####[facility] [address] [place], [address] Absolute Neut 12.3 X10 3/uL High 2.0-7.7 [facility] Comment on above: Performed By: #### L 100.0100 ####[facility] [address] [place], [address] Basophils/100 WBC (Bld) 0.1 % Normal 0-1 [facility] Comment on above: Performed By: #### L 100.0100 ####[facility] [address] [place], [address] Eosinophils/100 WBC (Bld) 0.1 % Normal 0-5 [facility] Comment on above: Performed By: #### L 100.0100 ####[facility] [address] [place], [address] Erythrocyte distribution width (RBC) [Ratio] 13.3 % Normal 11.6-14.6 [facility] Comment on above: Performed By: #### L 100.0100 ####[facility] [address] [place], [address] Hematocrit (Bld) [Volume fraction] 33.5 % Low 37-47 [facility] Comment on above: Performed By: #### L 100.0100 ####[facility] [address] [place], [address] Hemoglobin (Bld) [Mass/Vol] 11.9 g/dL Low 12.0-15.0 [facility] Comment on above: Performed By: #### L 100.0100 ####[facility] [address] [place], [address] IG% 0.800 Normal 0.0-0.9 [facility] Comment on above: Result Comment: IG% - Immature Granulocytes (promyelocytes, myelocytes andmetamyelocytes) > 1% indicates that a LEFT SHIFT is Present. Performed By: #### L 100.0100 ####[facility] [address] [place], [address] Lymphocytes/100 WBC (Bld) 8.4 % Low 19-41 [facility] Comment on above: Performed By: #### L 100.0100 ####[facility] [address] [place], [address] MCH (RBC) [Entitic mass] 31.5 pg Normal 27.0-32.0 [facility] Comment on above: Performed By: #### L 100.0100 ####[facility] [address] [place], [address] MCHC (RBC) [Mass/Vol] 35.5 g/dL Normal 32-36 [facility] Comment on above: Performed By: #### L 100.0100 ####[facility] [address] [place], [address] MCV (RBC) [Entitic vol] 88.6 fL Normal 81-99 [facility] Comment on above: Performed By: #### L 100.0100 ####[facility] [address] [place], [address] Monocytes/100 WBC (Bld) 5.7 % Normal 0-10 [facility] Comment on above: Performed By: #### L 100.0100 ####[facility] [address] [place], [address] Neutrophils/100 WBC (Bld) 84.9 % High 47-70 [facility] Comment on above: Performed By: #### L 100.0100 ####[facility] [address] [place], [address] Nucleated RBC (Bld) [#/Vol] 0.1 10*3/uL Normal 0-5 [facility] Comment on above: Performed By: #### L 100.0100 ####[facility] [address] [place], [address] Platelet mean volume (Bld) [Entitic vol] 11.1 fL Normal 6.2-12.0 [facility] Comment on above: Performed By: #### L 100.0100 ####[facility] [address] [place], [address] Platelets (Bld) [#/Vol] 203 10*3/uL Normal 150-450 [facility] Comment on above: Performed By: #### L 100.0100 ####[facility] [address] [place], [address] RBC (Bld) [#/Vol] 3.78 10*6/uL Low 4.2-5.4 [facility] Comment on above: Performed By: #### L 100.0100 ####[facility] [address] [place], [address] RDW SD 43.1 fl Normal 35.1-43.9 [facility] Comment on above: Performed By: #### L 100.0100 ####[facility] [address] [place], [address] WBC (Bld) [#/Vol] 14.5 10*3/uL High 4.4-11.0 [facility] Comment on above: Performed By: #### L 100.0100 ####[facility] [address] [place], [address] Absolute Lymph 0.96 X10 3/uL Normal 0.83-4.51 [facility] Comment on above: Performed By: #### L 501.1400, L504.2610, L100.0100, L500.4050 ####[facility] [address] [place], [address] Absolute Neut 11.5 X10 3/uL High 2.0-7.7 [facility] Comment on above: Performed By: #### L 501.1400, L504.2610, L100.0100, L500.4050 ####[facility] [address] [place], [address] Basophils/100 WBC (Bld) 0.2 % Normal 0-1 [facility] Comment on above: Performed By: #### L 501.1400, L504.2610, L100.0100, L500.4050 ####[facility] [address] [place], [address] Eosinophils/100 WBC (Bld) 0.0 % Normal 0-5 [facility] Comment on above: Performed By: #### L 501.1400, L504.2610, L100.0100, L500.4050 ####[facility] [address] [place], [address] Erythrocyte distribution width (RBC) [Ratio] 13.2 % Normal 11.6-14.6 [facility] Comment on above: Performed By: #### L 501.1400, L504.2610, L100.0100, L500.4050 ####[facility] [address] [place], [address] Hematocrit (Bld) [Volume fraction] 34.4 % Low 37-47 [facility] Comment on above: Performed By: #### L 501.1400, L504.2610, L100.0100, L500.4050 ####[facility] [address] [place], [address] Hemoglobin (Bld) [Mass/Vol] 11.8 g/dL Low 12.0-15.0 [facility] Comment on above: Performed By: #### L 501.1400, L504.2610, L100.0100, L500.4050 ####[facility] [address] [place], [address] IG% 0.800 Normal 0.0-0.9 [facility] Comment on above: Result Comment: IG% - Immature Granulocytes (promyelocytes, myelocytes andmetamyelocytes) > 1% indicates that a LEFT SHIFT is Present. Performed By: #### L 501.1400, L504.2610, L100.0100, L500.4050 ####[facility] [address] [place], [address] Lymphocytes/100 WBC (Bld) 7.4 % Low 19-41 [facility] Comment on above: Performed By: #### L 501.1400, L504.2610, L100.0100, L500.4050 ####[facility] [address] [place], [address] MCH (RBC) [Entitic mass] 30.6 pg Normal 27.0-32.0 [facility] Comment on above: Performed By: #### L 501.1400, L504.2610, L100.0100, L500.4050 ####[facility] [address] [place], [address] MCHC (RBC) [Mass/Vol] 34.3 g/dL Normal 32-36 [facility] Comment on above: Performed By: #### L 501.1400, L504.2610, L100.0100, L500.4050 ####[facility] [address] [place], [address] MCV (RBC) [Entitic vol] 89.4 fL Normal 81-99 [facility] Comment on above: Performed By: #### L 501.1400, L504.2610, L100.0100, L500.4050 ####[facility] [address] [place], [address] Monocytes/100 WBC (Bld) 2.7 % Normal 0-10 [facility] Comment on above: Performed By: #### L 501.1400, L504.2610, L100.0100, L500.4050 ####[facility] [address] [place], [address] Neutrophils/100 WBC (Bld) 88.9 % High 47-70 [facility] Comment on above: Performed By: #### L 501.1400, L504.2610, L100.0100, L500.4050 ####[facility] [address] [place], [address] Nucleated RBC (Bld) [#/Vol] 0 10*3/uL Normal 0-5 [facility] Comment on above: Performed By: #### L 501.1400, L504.2610, L100.0100, L500.4050 ####[facility] [address] [place], [address] Platelet mean volume (Bld) [Entitic vol] 11.4 fL Normal 6.2-12.0 [facility] Comment on above: Performed By: #### L 501.1400, L504.2610, L100.0100, L500.4050 ####[facility] [address] [place], [address] Platelets (Bld) [#/Vol] 191 10*3/uL Normal 150-450 [facility] Comment on above: Performed By: #### L 501.1400, L504.2610, L100.0100, L500.4050 ####[facility] [facility] [address] [place], [address] RBC (Bld) [#/Vol] 3.85 10*6/uL Low 4.2-5.4 [facility] Comment on above: Performed By: #### L 501.1400, L504.2610, L100.0100, L500.4050 ####[facility] [address] [place], [address] RDW SD 42.5 fl Normal 35.1-43.9 [facility] Comment on above: Performed By: #### L 501.1400, L504.2610, L100.0100, L500.4050 ####[facility] [address] [place], [address] WBC (Bld) [#/Vol] 13.0 10*3/uL High 4.4-11.0 [facility] Comment on above: Performed By: #### L 501.1400, L504.2610, L100.0100, L500.4050 ####[facility] [address] [place], [address] Comprehensive Metabolic Prof ilon 03-02-2025 Albumin [Mass/Vol] 3.3 g/dL Low 3.5-5.0 [facility] Comment on above: Performed By: #### L 500.4050 ####[facility] [address] [place], [address] Albumin/Globulin [Mass ratio] 1.2 {ratio} Normal 0.9-2.4 [facility] Comment on above: Performed By: #### L 500.4050 ####[facility] [address] [place], [address] ALK PHOS 119 U/L High 35-104 [facility] Comment on above: Performed By: #### L 500.4050 ####[facility] [address] [place], [address] ALT [Catalytic activity/Vol] 13 U/L Normal <=34 [facility] Comment on above: Performed By: #### L 500.4050 ####[facility] [address] [place], [address] AST [Catalytic activity/Vol] 23 U/L Normal <=31 [facility] Comment on above: Performed By: #### L 500.4050 ####[facility] [address] [place], [address] Bilirubin [Mass/Vol] 0.21 mg/dL Normal 0.00-1.30 [facility] Comment on above: Performed By: #### L 500.4050 ####[facility] [address] [place], [address] BUN/CRE 18.4 RATIO Normal 10-20 [facility] Comment on above: Performed By: #### L 500.4050 ####[facility] [address] [place], [address] Calcium [Mass/Vol] 9.2 mg/dL Normal 7.6-11.0 [facility] Comment on above: Performed By: #### L 500.4050 ####[facility] [address] [place], [address] Chloride [Moles/Vol] 103 mmol/L Normal 98-108 [facility] Comment on above: Performed By: #### L 500.4050 ####[facility] [address] [place], [address] CO2 [Moles/Vol] 16.6 mmol/L Low 21.0-32.0 [facility] Comment on above: Performed By: #### L 500.4050 ####[facility] [address] [place], [address] Creatinine [Mass/Vol] 0.58 mg/dL Low 0.70-1.20 [facility] Comment on above: Performed By: #### L 500.4050 ####[facility] [address] [place], [address] ECRCL 190.68 ml/min Normal 50-250 [facility] Comment on above: Performed By: #### L 500.4050 ####[facility] [address] [place], [address] GAP 14 Normal 5-15 [facility] Comment on above: Performed By: #### L 500.4050 ####[facility] [address] [place], [address] GFR/1.73 sq M.predicted among non-blacks MDRD (S/P/Bld) [Vol rate/Area] 130 mL/min/{1.73_m2} Normal >60 [facility] Comment on above: Result Comment: mL/m in/1.73m2 CKD-EPI Creatinine Equation (2020) Performed By: #### L 500.4050 ####[facility] [address] [place], [address] Globulin (S) [Mass/Vol] 2.8 g/dL Normal 2.2-4.2 [facility] Comment on above: Performed By: #### L 500.4050 ####[facility] [address] [place], [address] Glucose [Mass/Vol] 108 mg/dL High 70-99 [facility] Comment on above: Performed By: #### L 500.4050 ####[facility] [address] [place], [address] Potassium [Moles/Vol] 4.0 mmol/L Normal 3.3-5.1 [facility] Comment on above: Performed By: #### L 500.4050 ####[facility] [address] [place], [address] Sodium [Moles/Vol] 134 mmol/L Normal 133-145 [facility] Comment on above: Performed By: #### L 500.4050 ####[facility] [address] [place], [address] T PROT 6.1 g/dL Normal 5.9-8.4 [facility] Comment on above: Performed By: #### L 500.4050 ####[facility] [address] [place], [address] Urea nitrogen [Mass/Vol] 11 mg/dL Normal 4-19 [facility] Comment on above: Performed By: #### L 500.4050 ####[facility] [address] [place], [address] Albumin [Mass/Vol] 3.3 g/dL Low 3.5-5.0 [facility] Comment on above: Performed By: #### L 501.1400, L504.2610, L100.0100, L500.4050 ####[facility] [address] [place], [address] Albumin/Globulin [Mass ratio] 1.1 {ratio} Normal 0.9-2.4 [facility] Comment on above: Performed By: #### L 501.1400, L504.2610, L100.0100, L500.4050 ####[facility] [address] [place], [address] ALK PHOS 118 U/L High 35-104 [facility] Comment on above: Performed By: #### L 501.1400, L504.2610, L100.0100, L500.4050 ####[facility] [address] [place], [address] ALT [Catalytic activity/Vol] 12 U/L Normal <=34 [facility] Comment on above: Performed By: #### L 501.1400, L504.2610, L100.0100, L500.4050 ####[facility] [address] [place], [address] AST [Catalytic activity/Vol] 25 U/L Normal <=31 [facility] Comment on above: Performed By: #### L 501.1400, L504.2610, L100.0100, L500.4050 ####[facility] [address] [place], [address] Bilirubin [Mass/Vol] 0.22 mg/dL Normal 0.00-1.30 [facility] Comment on above: Performed By: #### L 501.1400, L504.2610, L100.0100, L500.4050 ####[facility] [address] [place], [address] BUN/CRE 14.7 RATIO Normal 10-20 [facility] Comment on above: Performed By: #### L 501.1400, L504.2610, L100.0100, L500.4050 ####[facility] [address] [place], [address] Calcium [Mass/Vol] 9.6 mg/dL Normal 7.6-11.0 [facility] Comment on above: Performed By: #### L 501.1400, L504.2610, L100.0100, L500.4050 ####[facility] [address] [place], [address] Chloride [Moles/Vol] 104 mmol/L Normal 98-108 [facility] Comment on above: Performed By: #### L 501.1400, L504.2610, L100.0100, L500.4050 ####[facility] [address] [place], [address] CO2 [Moles/Vol] 16.7 mmol/L Low 21.0-32.0 [facility] Comment on above: Performed By: #### L 501.1400, L504.2610, L100.0100, L500.4050 ####[facility] [address] [place], [address] Creatinine [Mass/Vol] 0.51 mg/dL Low 0.70-1.20 [facility] Comment on above: Performed By: #### L 501.1400, L504.2610, L100.0100, L500.4050 ####[facility] [address] [place], [address] ECRCL 216.86 ml/min Normal 50-250 [facility] Comment on above: Performed By: #### L 501.1400, L504.2610, L100.0100, L500.4050 ####[facility] [address] [place], [address] GAP 12 Normal 5-15 [facility] Comment on above: Performed By: #### L 501.1400, L504.2610, L100.0100, L500.4050 ####[facility] [address] [place], [address] GFR/1.73 sq M.predicted among non-blacks MDRD (S/P/Bld) [Vol rate/Area] 135 mL/min/{1.73_m2} Normal >60 [facility] Comment on above: Result Comment: mL/m in/1.73m2 CKD-EPI Creatinine Equation (2020) Performed By: #### L 501.1400, L504.2610, L100.0100, L500.4050 ####[facility] [address] [place], [address] Globulin (S) [Mass/Vol] 3.0 g/dL Normal 2.2-4.2 [facility] Comment on above: Performed By: #### L 501.1400, L504.2610, L100.0100, L500.4050 ####[facility] [address] [place], [address] Glucose [Mass/Vol] 137 mg/dL High 70-99 [facility] Comment on above: Performed By: #### L 501.1400, L504.2610, L100.0100, L500.4050 ####[facility] [address], [address] Potassium [Moles/Vol] 4.2 mmol/L Normal 3.3-5.1 [facility] Comment on above: Performed By: #### L 501.1400, L504.2610, L100.0100, L500.4050 ####[facility] [address], [address] Sodium [Moles/Vol] 133 mmol/L Normal 133-145 [facility] Comment on above: Performed By: #### L 501.1400, L504.2610, L100.0100, L500.4050 ####[facility] [address] [place], [address] T PROT 6.3 g/dL Normal 5.9-8.4 [facility] Comment on above: Performed By: #### L 501.1400, L504.2610, L100.0100, L500.4050 ####[facility] [address], [address] Urea nitrogen [Mass/Vol] 7 mg/dL Normal 4-19 [facility] Comment on above: Performed By: #### L 501.1400, L504.2610, L100.0100, L500.4050 ####[facility] [address], [address] ALB Normal 3.5-5.0 [facility] Comment on above: Result Comment: PER ALPAULYIA NURSE OK TO CANCEL ALREADY HAD DONE AND HAS A NEWORDER THIS AM. Performed By: #### L 500.4050 ####[facility] [address] [place], [address] ALK PHOS Normal 35-104 [facility] Comment on above: Result Comment: PER ALPAULYIA NURSE OK TO CANCEL ALREADY HAD DONE AND HAS A NEWORDER THIS AM. Performed By: #### L 500.4050 ####[facility] [address] [place], [address] ALT Normal <=34 [facility] Comment on above: Result Comment: PER ALPAULYIA NURSE OK TO CANCEL ALREADY HAD DONE AND HAS A NEWORDER THIS AM. Performed By: #### L 500.4050 ####[facility] [address] [place], [address] AST Normal <=31 [facility] Comment on above: Result Comment: PER ALYDIA NURSE OK TO CANCEL ALREADY HAD DONE AND HAS A NEWORDER THIS AM. Performed By: #### L 500.4050 ####[facility] [address] [place], [address] BUN Normal 4-19 [facility] Comment on above: Result Comment: PER ALYDIA NURSE OK TO CANCEL ALREADY HAD DONE AND HAS A NEWORDER THIS AM. Performed By: #### L 500.4050 ####[facility] [address] [place], [address] BUN/CRE Normal 10-20 [facility] Comment on above: Result Comment: PER ALPAULYIA NURSE OK TO CANCEL ALREADY HAD DONE AND HAS A NEWORDER THIS AM. Performed By: #### L 500.4050 ####[facility] [address] [place], [address] Calcium Normal 7.6-11.0 [facility] Comment on above: Result Comment: PER ALYDIA NURSE OK TO CANCEL ALREADY HAD DONE AND HAS A NEWORDER THIS AM. Performed By: #### L 500.4050 ####[facility] [address] [place], [address] CL Normal 98-108 [facility] Comment on above: Result Comment: PER ALYDIA NURSE OK TO CANCEL ALREADY HAD DONE AND HAS A NEWORDER THIS AM. Performed By: #### L 500.4050 ####[facility] [address] [place], [address] CO2 Normal 21.0-32.0 [facility] Comment on above: Result Comment: PER BESSYPAULYIA NURSE OK TO CANCEL ALREADY HAD DONE AND HAS A NEWORDER THIS AM. Performed By: #### L 500.4050 ####[facility] [address] [place], [address] CREAT,SERUM Normal 0.70-1.20 [facility] Comment on above: Result Comment: PER ALPAULYIA NURSE OK TO CANCEL ALREADY HAD DONE AND HAS A NEWORDER THIS AM. Performed By: #### L 500.4050 ####[facility] [address] [place], [address] eGFR Normal >60 [facility] Comment on above: Result Comment: PER ALPAULYIA NURSE OK TO CANCEL ALREADY HAD DONE AND HAS A NEWORDER THIS AM. Performed By: #### L 500.4050 ####[facility] [address] [place], [address] GAP Normal 5-15 [facility] Comment on above: Result Comment: PER ALPAULYIA NURSE OK TO CANCEL ALREADY HAD DONE AND HAS A NEWORDER THIS AM. Performed By: #### L 500.4050 ####[facility] [address] [place], [address] GLU Normal 70-99 [facility] Comment on above: Result Comment: PER ALPAULYIA NURSE OK TO CANCEL ALREADY HAD DONE AND HAS A NEWORDER THIS AM. Performed By: #### L 500.4050 ####[facility] [address] [place], [address] Potassium Normal 3.3-5.1 [facility] Comment on above: Result Comment: PER ALPAULYIA NURSE OK TO CANCEL ALREADY HAD DONE AND HAS A NEWORDER THIS AM. Performed By: #### L 500.4050 ####[facility] [address] [place], [address] T BILI Normal 0.00-1.30 [facility] Comment on above: Result Comment: PER THEOIA NURSE OK TO CANCEL ALREADY HAD DONE AND HAS A NEWORDER THIS AM. Performed By: #### L 500.4050 ####[facility] [address] [place], [address] T PROT Normal 5.9-8.4 [facility] Comment on above: Result Comment: PER ALPAULYIA NURSE OK TO CANCEL ALREADY HAD DONE AND HAS A NEWORDER THIS AM. Performed By: #### L 500.4050 ####[facility] [address] [place], [address] Comprehensive Metabolic Profil Normal 133-145 [facility] Comment on above: Result Comment: PER GUILLERMO NURSE OK TO CANCEL ALREADY HAD DONE AND HAS A NEWORDER THIS AM. Performed By: #### L 500.4050 ####[facility] [address] [place], [address] LDHon 03-02-2025 LDH 195 U/L Normal 84-246 [facility] Comment on above: Performed By: #### L 501.1400, L504.2610, L100.0100, L500.4050 ####[facility] [address] [place], [address] OB Triage Physician Noteon 1 OB Triage Physician Note Normal [facility] Protein, Urine 24HRon 2024 24hr UR PROTEIN 224.1 mg/24HR High <150 MG/24HR [facility] Comment on above: Performed By: #### L 500.4507, L500.9000, L502.000 ####[facility] [address] [place], [address] Protein Ql (U) 10.8 mg/dL Normal <11.9 [facility] Comment on above: Performed By: #### L 500.4507, L500.9000, L502.000 ####[facility] [address] [place], [address] Uric Acidon 03-02-2025 URIC 6.3 mg/dL High 2.6-6.0 [facility] Comment on above: Result Comment: The drugs N-Acetylcysteine and Metamizole may falselydepress this assay. Performed By: #### L 501.1400, L504.2610, L100.0100, L500.4050 ####[facility] [address] [place], [address] (ROM) Rupture Of Membraneson 03-01-2025 ROM Negative Normal Negative [facility] Comment on above: Result Comment: Amni otic fluid not present indicates No Rupture of FetalMembranes at time of specimen collection. Performed By: #### L 205.1000 ####[facility] [address] [place], [address] AST(SGOT)on 03-01-2025 AST [Catalytic activity/Vol] 29 U/L Normal <=31 [facility] Comment on above: Performed By: #### L 501.4100, L501.1105, L501.1400, L100.0500, L501.4405 ####[facility] [address] [place], [address] Alanine Aminotransferas (SGP T)on 03-01-2025 ALT [Catalytic activity/Vol] 14 U/L Normal <=34 [facility] Comment on above: Performed By: #### L 501.4100, L501.1105, L501.1400, L100.0500, L501.4405 ####[facility] [address] [place], [address] Bedside Glucoseon 03-01-2025 FINGERSTICK GLU 160 mg/dL High 74-106 [facility] Comment on above: Result Comment: VERITO HUMPHRIES OF PATIENT CARE PER NURSING PROTOCOL Performed By: #### L 501.080 ####[facility] [address] [place], [address] FINGERSTICK GLU 94 mg/dL Normal 74-106 [facility] Comment on above: Result Comment: VERITO HUMPHRIES OF PATIENT CARE PER NURSING PROTOCOL Performed By: #### L 501.080 ####[facility] [address] [place], [address] Brain without Contraston Brain without Contrast Normal [facility] CBC-Complete Blood Cnt No Di ffon 03-01-2025 Erythrocyte distribution width (RBC) [Ratio] 13.4 % Normal 11.6-14.6 [facility] Comment on above: Performed By: #### L 501.4100, L501.1105, L501.1400, L100.0500, L501.4405 ####[facility] [address] [place], [address] Hematocrit (Bld) [Volume fraction] 34.6 % Low 37-47 [facility] Comment on above: Performed By: #### L 501.4100, L501.1105, L501.1400, L100.0500, L501.4405 ####[facility] [address] [place], [address] Hemoglobin (Bld) [Mass/Vol] 12.1 g/dL Normal 12.0-15.0 [facility] Comment on above: Performed By: #### L 501.4100, L501.1105, L501.1400, L100.0500, L501.4405 ####[facility] [address] [place], [address] MCH (RBC) [Entitic mass] 31.3 pg Normal 27.0-32.0 [facility] Comment on above: Performed By: #### L 501.4100, L501.1105, L501.1400, L100.0500, L501.4405 ####[facility] [address] [place], [address] MCHC (RBC) [Mass/Vol] 35.0 g/dL Normal 32-36 [facility] Comment on above: Performed By: #### L 501.4100, L501.1105, L501.1400, L100.0500, L501.4405 ####[facility] [address] [place], [address] MCV (RBC) [Entitic vol] 89.4 fL Normal 81-99 [facility] Comment on above: Performed By: #### L 501.4100, L501.1105, L501.1400, L100.0500, L501.4405 ####[facility] [address] [place], [address] Platelet mean volume (Bld) [Entitic vol] 11.1 fL Normal 6.2-12.0 [facility] Comment on above: Performed By: #### L 501.4100, L501.1105, L501.1400, L100.0500, L501.4405 ####[facility] [address] [place], [address] Platelets (Bld) [#/Vol] 197 10*3/uL Normal 150-450 [facility] Comment on above: Performed By: #### L 501.4100, L501.1105, L501.1400, L100.0500, L501.4405 ####[facility] [address] [place], [address] RBC (Bld) [#/Vol] 3.87 10*6/uL Low 4.2-5.4 [facility] Comment on above: Performed By: #### L 501.4100, L501.1105, L501.1400, L100.0500, L501.4405 ####[facility] [address] [place], [address] RDW SD 43.7 fl Normal 35.1-43.9 [facility] Comment on above: Performed By: #### L 501.4100, L501.1105, L501.1400, L100.0500, L501.4405 ####[facility] [address] [place], [address] WBC (Bld) [#/Vol] 10.2 10*3/uL Normal 4.4-11.0 [facility] Comment on above: Performed By: #### L 501.4100, L501.1105, L501.1400, L100.0500, L501.4405 ####[facility] [address] [place], [address] H AND P Exam - OB/GYNon 10-0 H&P Exam - INTELLIGENCE RESEARCH SPECIALIST Normal [facility] LDHon 03-01-2025 LDH 164 U/L Normal 84-246 [facility] Comment on above: Performed By: #### L 504.2610 ####[facility] [address] [place], [address] M8200.0100on 03-01-2025 M8200.0100 Negative Normal [facility] Comment on above: Performed By: #### M 8200.0100 ####[facility] [address] [place], [address] OB Limited (No Biometrics)on 03-01-2025 OB Limited (No Biometrics) Normal [facility] Senior Catering Sales Manager Office Visit Reporton 03-01-2025 Senior Catering Sales Manager Office Visit Report Normal [facility] Protein+Creatinine Ratio,Uri neon 03-01-2025 PROT:CRE RATIO Normal 0-200 [facility] Comment on above: Result Comment: DUPL ICATE ORDER. SEE UC13 FOR RESULTS Performed By: #### L 501.0900 ####[facility] [address] [place], [address] PROTEIN,UR.RAN. Normal 0.0-12.0 [facility] Comment on above: Result Comment: DUPL ICATE ORDER. SEE UC13 FOR RESULTS Performed By: #### L 501.0900 ####[facility] [address] [place], [address] UR CREAT Normal 28.00-217.00 [facility] Comment on above: Result Comment: DUPL ICATE ORDER. SEE UC13 FOR RESULTS Performed By: #### L 501.0900 ####[facility] [address] [place], [address] PROT:CRE RATIO 324 mg/g CRE High 0-200 [facility] Comment on above: Performed By: #### L 501.0900 ####[facility] [address] [place], [address] Protein (U) [Mass/Vol] 8.4 mg/dL Normal 0.0-12.0 [facility] Comment on above: Performed By: #### L 501.0900 ####[facility] [address] [place], [address] UR CREAT 25.90 mg/dL Low 28.00-217.00 [facility] Comment on above: Performed By: #### L 501.0900 ####[facility] [address] [place], [address] Serum Creatinine AND GFRon 1 0 Creatinine [Mass/Vol] 0.55 mg/dL Low 0.70-1.20 [facility] Comment on above: Performed By: #### L 501.4100, L501.1105, L501.1400, L100.0500, L501.4405 ####[facility] [address] [place], [address] ECRCL 201.09 ml/min Normal 50-250 [facility] Comment on above: Performed By: #### L 501.4100, L501.1105, L501.1400, L100.0500, L501.4405 ####[facility] [address] [place], [address] GFR/1.73 sq M.predicted among non-blacks MDRD (S/P/Bld) [Vol rate/Area] 132 mL/min/{1.73_m2} Normal >60 [facility] Comment on above: Result Comment: mL/m in/1.73m2 CKD-EPI Creatinine Equation (2020) Performed By: #### L 501.4100, L501.1105, L501.1400, L100.0500, L501.4405 ####[facility] [address] [place], [address] Uric Acidon 03-01-2025 URIC 6.2 mg/dL High 2.6-6.0 [facility] [facility] Comment on above: Result Comment: The drugs N-Acetylcysteine and Metamizole may falselydepress this assay. Performed By: #### L 501.4100, L501.1105, L501.1400, L100.0500, L501.4405 ####[facility] [address] [place], [place], [id number] Urine Cultureon 02-28-2025 URC #1 Below infection level. Presumptive C albicans [place] Count <1000 Mixed Gram Positive Organisms Mixed Gram Positive Organisms MIXC Mixed contaminants. Submit a new specimen if indicated. Normal [facility] Comment on above: Performed By: #### M 100.2200 ####[facility] [address] [place], [address] OB Triage Physician Noteon 0 02-26-2025 OB Triage Physician Note Normal [facility] (ROM) Rupture Of Membraneson 02-25-2025 ROM Negative Normal Negative [facility] Comment on above: Result Comment: Amni otic fluid not present indicates No Rupture of FetalMembranes at time of specimen collection. Performed By: #### L 205.1000 ####[facility] [address] [place], [place], [phone] AST(SGOT)on 02-25-2025 AST [Catalytic activity/Vol] 27 U/L Normal <=31 [facility] Comment on above: Performed By: #### L 501.1400, L501.1105, L100.0500, L501.4405, L501.0900, L501.4100 ####[facility] [address] [place], [address]([phone] Alanine Aminotransferas (SGP T)on 02-25-2025 ALT [Catalytic activity/Vol] 15 U/L Normal <=34 [facility] Comment on above: Performed By: #### L 501.1400, L501.1105, L100.0500, L501.4405, L501.0900, L501.4100 ####[facility] [address] [place], [address] CBC-Complete Blood Cnt No Di ffon 02-25-2025 Erythrocyte distribution width (RBC) [Ratio] 13.2 % Normal 11.6-14.6 [facility] Comment on above: Performed By: #### L 501.1400, L501.1105, L100.0500, L501.4405, L501.0900, L501.4100 ####[facility] [address] [place], [address] Hematocrit (Bld) [Volume fraction] 35.7 % Low 37-47 [facility] Comment on above: Performed By: #### L 501.1400, L501.1105, L100.0500, L501.4405, L501.0900, L501.4100 ####[facility] [address] [place], [address] Hemoglobin (Bld) [Mass/Vol] 12.6 g/dL Normal 12.0-15.0 [facility] Comment on above: Performed By: #### L 501.1400, L501.1105, L100.0500, L501.4405, L501.0900, L501.4100 ####[facility] [address] [place], [address] MCH (RBC) [Entitic mass] 31.6 pg Normal 27.0-32.0 [facility] Comment on above: Performed By: #### L 501.1400, L501.1105, L100.0500, L501.4405, L501.0900, L501.4100 ####[facility] [address] [place], [address] MCHC (RBC) [Mass/Vol] 35.3 g/dL Normal 32-36 [facility] Comment on above: Performed By: #### L 501.1400, L501.1105, L100.0500, L501.4405, L501.0900, L501.4100 ####[facility] [address] [place], [address] MCV (RBC) [Entitic vol] 89.5 fL Normal 81-99 [facility] Comment on above: Performed By: #### L 501.1400, L501.1105, L100.0500, L501.4405, L501.0900, L501.4100 ####[facility] [address] [place], [address] Platelet mean volume (Bld) [Entitic vol] 11.1 fL Normal 6.2-12.0 [facility] Comment on above: Performed By: #### L 501.1400, L501.1105, L100.0500, L501.4405, L501.0900, L501.4100 ####[facility] [address] [place], [address] Platelets (Bld) [#/Vol] 208 10*3/uL Normal 150-450 [facility] Comment on above: Performed By: #### L 501.1400, L501.1105, L100.0500, L501.4405, L501.0900, L501.4100 ####[facility] [address] [place], [address] RBC (Bld) [#/Vol] 3.99 10*6/uL Low 4.2-5.4 [facility] Comment on above: Performed By: #### L 501.1400, L501.1105, L100.0500, L501.4405, L501.0900, L501.4100 ####[facility] [address] [place], [address] RDW SD 43.3 fl Normal 35.1-43.9 [facility] Comment on above: Performed By: #### L 501.1400, L501.1105, L100.0500, L501.4405, L501.0900, L501.4100 ####[facility] [address] [place], [address] WBC (Bld) [#/Vol] 11.5 10*3/uL High 4.4-11.0 [facility] Comment on above: Performed By: #### L 501.1400, L501.1105, L100.0500, L501.4405, L501.0900, L501.4100 ####[facility] [address] [place], [address] Protein+Creatinine Ratio,Uri neon 02-25-2025 PROT:CRE RATIO 214 mg/g CRE High 0-200 [facility] Comment on above: Performed By: #### L 501.1400, L501.1105, L100.0500, L501.4405, L501.0900, L501.4100 ####[facility] [address] [place], [address] Protein (U) [Mass/Vol] 8.1 mg/dL Normal 0.0-12.0 [facility] Comment on above: Performed By: #### L 501.1400, L501.1105, L100.0500, L501.4405, L501.0900, L501.4100 ####[facility] [address] [place], [address] UR CREAT 37.80 mg/dL Normal 28.00-217.00 [facility] Comment on above: Performed By: #### L 501.1400, L501.1105, L100.0500, L501.4405, L501.0900, L501.4100 ####[facility] [address] [place], [place], [phone] Serum Creatinine AND GFRon 0 - Creatinine [Mass/Vol] 0.52 mg/dL Low 0.70-1.20 [facility] Comment on above: Performed By: #### L 501.1400, L501.1105, L100.0500, L501.4405, L501.0900, L501.4100 ####[facility] [address] [place], [address] ECRCL 212.39 ml/min Normal 50-250 [facility] Comment on above: Performed By: #### L 501.1400, L501.1105, L100.0500, L501.4405, L501.0900, L501.4100 ####[facility] [address] [place], [address] GFR/1.73 sq M.predicted among non-blacks MDRD (S/P/Bld) [Vol rate/Area] 134 mL/min/{1.73_m2} Normal >60 [facility] Comment on above: Result Comment: mL/m in/1.73m2 CKD-EPI Creatinine Equation (2020) Performed By: #### L 501.1400, L501.1105, L100.0500, L501.4405, L501.0900, L501.4100 ####[facility] [address] [place], [address] Uric Acidon 02-25-2025 URIC 6.1 mg/dL High 2.6-6.0 [facility] Comment on above: Result Comment: The drugs N-Acetylcysteine and Metamizole may falselydepress this assay. Performed By: #### L 501.1400, L501.1105, L100.0500, L501.4405, L501.0900, L501.4100 ####[facility] [address] [place], [address] Urinalysis, Completeon 02-25 RBC 5-10 SEEN Normal 0-5 [facility] Comment on above: Order Comment: CLEAN CATCH Performed By: #### L 400.0001 ####[facility] [address] [place], [address] WBC 50-100 SEEN Normal 0-5 [facility] Comment on above: Order Comment: CLEAN CATCH Performed By: #### L 400.0001 ####[facility] [address] [place], [address] BACTERIA 2+ /hpf Normal None Seen [facility] Comment on above: Order Comment: CLEAN CATCH Performed By: #### L 400.0001 ####[facility] [address] [place], [address] EPI,SQUAMOUS 10-25 SEEN Normal 5-10 [facility] Comment on above: Order Comment: CLEAN CATCH Performed By: #### L 400.0001 ####[facility] [address] [place], [address] Mucus Ql (Urine sed) 0 SEEN Normal [facility] Comment on above: Order Comment: CLEAN CATCH Performed By: #### L 400.0001 ####[facility] [address] [place], [address] OB Triage Progress Noteon OB Triage Progress Note Normal [facility] CBC W/Diff, Automatedon 09-2 Absolute Lymph 1.14 X10 3/uL Normal 0.83-4.51 [facility] Comment on above: Performed By: #### L 500.4050, L504.2610, L100.0100, L501.1400 ####[facility] [address] [place], [address] Absolute Neut 8.0 X10 3/uL High 2.0-7.7 [facility] Comment on above: Performed By: #### L 500.4050, L504.2610, L100.0100, L501.1400 ####[facility] [address] [place], [address] Basophils/100 WBC (Bld) 0.4 % Normal 0-1 [facility] Comment on above: Performed By: #### L 500.4050, L504.2610, L100.0100, L501.1400 ####[facility] [address] [place], [address] Eosinophils/100 WBC (Bld) 1.3 % Normal 0-5 [facility] Comment on above: Performed By: #### L 500.4050, L504.2610, L100.0100, L501.1400 ####[facility] [address] [place], [address] Erythrocyte distribution width (RBC) [Ratio] 13.5 % Normal 11.6-14.6 [facility] Comment on above: Performed By: #### L 500.4050, L504.2610, L100.0100, L501.1400 ####[facility] [address] [place], [address] Hematocrit (Bld) [Volume fraction] 36.7 % Low 37-47 [facility] Comment on above: Performed By: #### L 500.4050, L504.2610, L100.0100, L501.1400 ####[facility] [address] [place], [address] Hemoglobin (Bld) [Mass/Vol] 12.7 g/dL Normal 12.0-15.0 [facility] Comment on above: Performed By: #### L 500.4050, L504.2610, L100.0100, L501.1400 ####[facility] [address] [place], [address] IG% 0.800 Normal 0.0-0.9 [facility] Comment on above: Result Comment: IG% - Immature Granulocytes (promyelocytes, myelocytes andmetamyelocytes) > 1% indicates that a LEFT SHIFT is Present. Performed By: #### L 500.4050, L504.2610, L100.0100, L501.1400 ####[facility] [address] [place], [address] Lymphocytes/100 WBC (Bld) 11.3 % Low 19-41 [facility] Comment on above: Performed By: #### L 500.4050, L504.2610, L100.0100, L501.1400 ####[facility] [address] [place], [address] MCH (RBC) [Entitic mass] 31.5 pg Normal 27.0-32.0 [facility] Comment on above: Performed By: #### L 500.4050, L504.2610, L100.0100, L501.1400 ####[facility] [address] [place], [address] MCHC (RBC) [Mass/Vol] 34.6 g/dL Normal 32-36 [facility] Comment on above: Performed By: #### L 500.4050, L504.2610, L100.0100, L501.1400 ####[facility] [address] [place], [address] MCV (RBC) [Entitic vol] 91.1 fL Normal 81-99 [facility] Comment on above: Performed By: #### L 500.4050, L504.2610, L100.0100, L501.1400 ####[facility] [address] [place], [address] Monocytes/100 WBC (Bld) 7.1 % Normal 0-10 [facility] Comment on above: Performed By: #### L 500.4050, L504.2610, L100.0100, L501.1400 ####[facility] [address] [place], [address] Neutrophils/100 WBC (Bld) 79.1 % High 47-70 [facility] Comment on above: Performed By: #### L 500.4050, L504.2610, L100.0100, L501.1400 ####[facility] [address] [place], [address] Nucleated RBC (Bld) [#/Vol] 0 10*3/uL Normal 0-5 [facility] Comment on above: Performed By: #### L 500.4050, L504.2610, L100.0100, L501.1400 ####[facility] [address] [place], [address] Platelet mean volume (Bld) [Entitic vol] 11.2 fL Normal 6.2-12.0 [facility] Comment on above: Performed By: #### L 500.4050, L504.2610, L100.0100, L501.1400 ####[facility] [address] [place], [address] Platelets (Bld) [#/Vol] 236 10*3/uL Normal 150-450 [facility] Comment on above: Performed By: #### L 500.4050, L504.2610, L100.0100, L501.1400 ####[facility] [address] [place], [address] RBC (Bld) [#/Vol] 4.03 10*6/uL Low 4.2-5.4 [facility] Comment on above: Performed By: #### L 500.4050, L504.2610, L100.0100, L501.1400 ####[facility] [address] [place], [address] RDW SD 44.5 fl High 35.1-43.9 [facility] Comment on above: Performed By: #### L 500.4050, L504.2610, L100.0100, L501.1400 ####[facility] [address] [place], [address] WBC (Bld) [#/Vol] 10.1 10*3/uL Normal 4.4-11.0 [facility] Comment on above: Performed By: #### L 500.4050, L504.2610, L100.0100, L501.1400 ####[facility] [address] [place], [address] Comprehensive Metabolic Prof [facility] 02-22-2025 Albumin [Mass/Vol] 3.4 g/dL Low 3.5-5.0 [facility] Comment on above: Performed By: #### L 500.4050, L504.2610, L100.0100, L501.1400 ####[facility] [address] [place], [address] Albumin/Globulin [Mass ratio] 1.1 {ratio} Normal 0.9-2.4 [facility] Comment on above: Performed By: #### L 500.4050, L504.2610, L100.0100, L501.1400 ####[facility] [address] [place], [address] ALK PHOS 113 U/L High 35-104 [facility] Comment on above: Performed By: #### L 500.4050, L504.2610, L100.0100, L501.1400 ####[facility] [address] [place], [address] ALT [Catalytic activity/Vol] 18 U/L Normal <=34 [facility] Comment on above: Performed By: #### L 500.4050, L504.2610, L100.0100, L501.1400 ####[facility] [address] [place], [address] AST [Catalytic activity/Vol] 34 U/L High <=31 [facility] Comment on above: Performed By: #### L 500.4050, L504.2610, L100.0100, L501.1400 ####[facility] [address] [place], [address] Bilirubin [Mass/Vol] 0.23 mg/dL Normal 0.00-1.30 [facility] Comment on above: Performed By: #### L 500.4050, L504.2610, L100.0100, L501.1400 ####[facility] [address] [place], [address] BUN/CRE 9.7 RATIO Low 10-20 [facility] Comment on above: Performed By: #### L 500.4050, L504.2610, L100.0100, L501.1400 ####[facility] [address] [place], [address] Calcium [Mass/Vol] 9.8 mg/dL Normal 7.6-11.0 [facility] Comment on above: Performed By: #### L 500.4050, L504.2610, L100.0100, L501.1400 ####[facility] [address] [place], [address] Chloride [Moles/Vol] 103 mmol/L Normal 98-108 [facility] Comment on above: Performed By: #### L 500.4050, L504.2610, L100.0100, L501.1400 ####[facility] [address] [place], [address] CO2 [Moles/Vol] 18.6 mmol/L Low 21.0-32.0 [facility] Comment on above: Performed By: #### L 500.4050, L504.2610, L100.0100, L501.1400 ####[facility] [address] [place], [address] Creatinine [Mass/Vol] 0.77 mg/dL Normal 0.70-1.20 [facility] Comment on above: Performed By: #### L 500.4050, L504.2610, L100.0100, L501.1400 ####[facility] [address] [place], [address] GAP 12 Normal 5-15 [facility] Comment on above: Performed By: #### L 500.4050, L504.2610, L100.0100, L501.1400 ####[facility] [address] [place], [address] GFR/1.73 sq M.predicted among non-blacks MDRD (S/P/Bld) [Vol rate/Area] 111 mL/min/{1.73_m2} Normal >60 [facility] Comment on above: Result Comment: mL/m in/1.73m2 CKD-EPI Creatinine Equation (2020) Performed By: #### L 500.4050, L504.2610, L100.0100, L501.1400 ####[facility] [address] [place], [address] Globulin (S) [Mass/Vol] 3.2 g/dL Normal 2.2-4.2 [facility] Comment on above: Performed By: #### L 500.4050, L504.2610, L100.0100, L501.1400 ####[facility] [address], [address] Glucose [Mass/Vol] 89 mg/dL Normal 70-99 [facility] Comment on above: Performed By: #### L 500.4050, L504.2610, L100.0100, L501.1400 ####[facility] [address] [place], [address] Potassium [Moles/Vol] 4.1 mmol/L Normal 3.3-5.1 [facility] Comment on above: Performed By: #### L 500.4050, L504.2610, L100.0100, L501.1400 ####[facility] [address] [place], [address] Sodium [Moles/Vol] 134 mmol/L Normal 133-145 [facility] Comment on above: Performed By: #### L 500.4050, L504.2610, L100.0100, L501.1400 ####[facility] [address] [place], [address] T PROT 6.6 g/dL Normal 5.9-8.4 [facility] Comment on above: Performed By: #### L 500.4050, L504.2610, L100.0100, L501.1400 ####[facility] [address], [address] Urea nitrogen [Mass/Vol] 7 mg/dL Normal 4-19 [facility] Comment on above: Performed By: #### L 500.4050, L504.2610, L100.0100, L501.1400 ####[facility] [address] [place], [address] LDHon 02-22-2025 LDH 179 U/L Normal 84-246 [facility] Comment on above: Order Comment: 1 Performed By: #### L 500.4050, L504.2610, L100.0100, L501.1400 ####[facility] [address] [place], [address] [employer] Office Visit Reporton 02-22-2025 [employer] Sales Manager Office Visit Report Normal [facility] Protein+Creatinine Ratio,Uri neon 02-22-2025 PROT:CRE RATIO UNABLE TO CALCULATE Normal 0-200 [facility] Comment on above: Performed By: #### L 501.0900 ####[facility] [address] [place], [address] PROTEIN,UR.RAN. < 6.0 Normal 0.0-12.0 [facility] Comment on above: Performed By: #### L 501.0900 ####[facility] [address] [place], [address] UR CREAT 43.30 mg/dL Normal 28.00-217.00 [facility] Comment on above: Performed By: #### L 501.0900 ####[facility] [address] [place], [address] Uric Acidon 02-22-2025 URIC 6.1 mg/dL High 2.6-6.0 [facility] Comment on above: Result Comment: The drugs N-Acetylcysteine and Metamizole may falselydepress this assay. Performed By: #### L 500.4050, L504.2610, L100.0100, L501.1400 ####[facility] [address] [place], [address] (ROM) Rupture Of Membraneson 02-15-2025 ROM Negative Normal Negative [facility] Comment on above: Result Comment: Amni otic fluid not present indicates No Rupture of FetalMembranes at time of specimen collection. Performed By: #### L 205.1000 ####[facility] [address] [place], [address] Senior Catering Sales Manager Office Visit Reporton 02-09-2025 Senior Catering Sales Manager Office Visit Report Normal [facility] Gestational GTT 3HR 100gon 0 02-01-2025 GEST GTT 100gm High [facility] Comment on above: Order Comment: Y Result [...] 02/01/25 1056 Performed By: #### L 500.4710 ####[facility] [address] [place], [address] CBC W/Diff, Automatedon 12-31 Absolute Lymph 0.91 X10 3/uL Normal 0.83-4.51 [facility] Comment on above: Performed By: #### L 100.0100, L509.8002, L501.0250, BTS, L3890.6006 ####[facility] [address] [place], [address] Absolute Neut 8.5 X10 3/uL High 2.0-7.7 [facility] Comment on above: Performed By: #### L 100.0100, L509.8002, L501.0250, BTS, L3890.6006 ####[facility] [address] [place], [address] Basophils/100 WBC (Bld) 0.2 % Normal 0-1 [facility] Comment on above: Performed By: #### L 100.0100, L509.8002, L501.0250, BTS, L3890.6006 ####[facility] [address] [place], [address] Eosinophils/100 WBC (Bld) 0.8 % Normal 0-5 [facility] Comment on above: Performed By: #### L 100.0100, L509.8002, L501.0250, BTS, L3890.6006 ####[facility] [address] [place], [address] Erythrocyte distribution width (RBC) [Ratio] 12.7 % Normal 11.6-14.6 [facility] Comment on above: Performed By: #### L 100.0100, L509.8002, L501.0250, BTS, L3890.6006 ####[facility] [address] [place], [address] Hematocrit (Bld) [Volume fraction] 33.7 % Low 37-47 [facility] Comment on above: Performed By: #### L 100.0100, L509.8002, L501.0250, BTS, L3890.6006 ####[facility] [address] [place], [address] Hemoglobin (Bld) [Mass/Vol] 11.7 g/dL Low 12.0-15.0 [facility] Comment on above: Performed By: #### L 100.0100, L509.8002, L501.0250, BTS, L3890.6006 ####[facility] [address] [place], [address] IG% 0.900 Normal 0.0-0.9 [facility] Comment on above: Result Comment: IG% - Immature Granulocytes (promyelocytes, myelocytes andmetamyelocytes) > 1% indicates that a LEFT SHIFT is Present. Performed By: #### L 100.0100, L509.8002, L501.0250, BTS, L3890.6006 ####[facility] [address] [place], [address] Lymphocytes/100 WBC (Bld) 9.0 % Low 19-41 [facility] Comment on above: Performed By: #### L 100.0100, L509.8002, L501.0250, BTS, L3890.6006 ####[facility] [address] [place], [address] MCH (RBC) [Entitic mass] 31.2 pg Normal 27.0-32.0 [facility] Comment on above: Performed By: #### L 100.0100, L509.8002, L501.0250, BTS, L3890.6006 ####[facility] [address] [place], [address] MCHC (RBC) [Mass/Vol] 34.7 g/dL Normal 32-36 [facility] Comment on above: Performed By: #### L 100.0100, L509.8002, L501.0250, BTS, L3890.6006 ####[facility] [address] [place], [address] MCV (RBC) [Entitic vol] 89.9 fL Normal 81-99 [facility] Comment on above: Performed By: #### L 100.0100, L509.8002, L501.0250, BTS, L3890.6006 ####[facility] [address] [place], [address] Monocytes/100 WBC (Bld) 4.7 % Normal 0-10 [facility] Comment on above: Performed By: #### L 100.0100, L509.8002, L501.0250, BTS, L3890.6006 ####[facility] [address] [place], [address] Neutrophils/100 WBC (Bld) 84.4 % High 47-70 [facility] Comment on above: Performed By: #### L 100.0100, L509.8002, L501.0250, BTS, L3890.6006 ####[facility] [address] [place], [address] Nucleated RBC (Bld) [#/Vol] 0 10*3/uL Normal 0-5 [facility] Comment on above: Performed By: #### L 100.0100, L509.8002, L501.0250, BTS, L3890.6006 ####[facility] [address] [place], [address] Platelet mean volume (Bld) [Entitic vol] 10.7 fL Normal 6.2-12.0 [facility] Comment on above: Performed By: #### L 100.0100, L509.8002, L501.0250, BTS, L3890.6006 ####[facility] [address] [place], [address] Platelets (Bld) [#/Vol] 240 10*3/uL Normal 150-450 [facility] Comment on above: Performed By: #### L 100.0100, L509.8002, L501.0250, BTS, L3890.6006 ####[facility] [address] [place], [address] RBC (Bld) [#/Vol] 3.75 10*6/uL Low 4.2-5.4 [facility] Comment on above: Performed By: #### L 100.0100, L509.8002, L501.0250, BTS, L3890.6006 ####[facility] [address] [place], [address] RDW SD 41.4 fl Normal 35.1-43.9 [facility] Comment on above: Performed By: #### L 100.0100, L509.8002, L501.0250, BTS, L3890.6006 ####[facility] [address] [place], [address] WBC (Bld) [#/Vol] 10.1 10*3/uL Normal 4.4-11.0 [facility] Comment on above: Performed By: #### L 100.0100, L509.8002, L501.0250, BTS, L3890.6006 ####[facility] [address] [place], [place], [address] Glucose Challenge Gest 1H 50 hayley 01-24-2025 GLU GEST 50g 1H 151 mg/dL High 70-140 [facility] Comment on above: Performed By: #### L 100.0100, L509.8002, L501.0250, BTS, L3890.6006 ####[facility] [address] [place], [place], [address] HIVon 01-24-2025 HIV Non-Reactive Normal Nonreactive [facility] Comment on above: Result Comment: Non- ReactiveReactiveRepeatedly reactive samples must be confirmed according [facility] recommended confirmatory algorithms. The subresults foreither HIVAG or AHIV can be used as an aid in the selectionof the confirmation algorithm for reactive samples.Send out specimens with Reactive results to [facility] forconfirmation.Order the HIV antibody detection and differentiation:lc#[id number] Performed By: #### L 100.0100, L509.8002, L501.0250, BTS, L3890.6006 ####[facility] [address] [place], [place], [address] [employer] Office Visit Reporton 01-24-2025 [employer] Manager Office Visit Report Normal [facility] Syphilis Antibodieson 2024 Syphilis Abs Non-Reactive Normal Nonreactive [facility] Comment on above: Performed By: #### L 100.0100, L509.8002, L501.0250, BTS, L3890.6006 ####[facility] [address] [place], [place], [address] Type AND Screenon 01-24-2025 Ab SCREEN GEL Negative Normal [facility] Comment on above: Order Comment: PN Performed By: #### L 100.0100, L509.8002, L501.0250, BTS, L3890.6006 ####[facility] [address] [place], [address] [employer] Office Visit Reporton 01-06-2025 [employer] Sales [employer] Office Visit Report Normal [facility] 24 HR UR Creatinine Clearanc yanet 12-29-2024 CREAT CLEARANCE 155 ml/min Normal 100-200 [facility] Comment on above: Order Comment: 3150 ML Performed By: #### L 500.4507, L500.9000, L501.1105 ####[facility] [address] [place], [address] Creatinine [Mass/Vol] 0.6 mg/dL Normal 0.6-1.0 [facility] Comment on above: Order Comment: 3150 ML Performed By: #### L 500.4507, L500.9000, L501.1105 ####[facility] [address] [place], [address] RANDOM UR TV 3150.0 ML Normal [facility] Comment on above: Order Comment: 3150 ML Performed By: #### L 500.4507, L500.9000, L501.1105 ####[facility] [address] [place], [address] Protein, Urine 24HRon 2024 UR COLLECT TIME 24.0 HOURS Normal 24.0 [facility] Comment on above: Order Comment: 3150 ML Performed By: #### L 500.4507, L500.9000, L501.1105 ####[facility] [address] [place], [address] UR TOTAL VOLUME 3150 mL Normal [facility] Comment on above: Order Comment: 3150 ML Performed By: #### L 500.4507, L500.9000, L501.1105 ####[facility] [address] [place], [address] Serum Creatinine AND GFRon 0 - Creatinine [Mass/Vol] 0.56 mg/dL Low 0.70-1.20 [facility] Comment on above: Performed By: #### L 500.4507, L500.9000, L501.1105 ####[facility] [address] [place], [address] GFR/1.73 sq M.predicted among non-blacks MDRD (S/P/Bld) [Vol rate/Area] 131 mL/min/{1.73_m2} Normal >60 [facility] Comment on above: Result Comment: mL/m in/1.73m2 CKD-EPI Creatinine Equation (2020) Performed By: #### L 500.4507, L500.9000, L501.1105 ####[facility] [address] [place], [address] CBC W/Diff, Automatedon 11-30 Absolute Lymph 1.31 X10 3/uL Normal 0.83-4.51 [facility] Comment on above: Performed By: #### L 501.0900, L500.4050, L100.0100 ####[facility] [address] [place], [address] Absolute Neut 8.8 X10 3/uL High 2.0-7.7 [facility] Comment on above: Performed By: #### L 501.0900, L500.4050, L100.0100 ####[facility] [address] [place], [address] Basophils/100 WBC (Bld) 0.2 % Normal 0-1 [facility] Comment on above: Performed By: #### L 501.0900, L500.4050, L100.0100 ####[facility] [address] [place], [address] Eosinophils/100 WBC (Bld) 0.8 % Normal 0-5 [facility] Comment on above: Performed By: #### L 501.0900, L500.4050, L100.0100 ####[facility] [address] [place], [address] Erythrocyte distribution width (RBC) [Ratio] 12.8 % Normal 11.6-14.6 [facility] Comment on above: Performed By: #### L 501.0900, L500.4050, L100.0100 ####[facility] [address] [place], [address] Hematocrit (Bld) [Volume fraction] 33.8 % Low 37-47 [facility] Comment on above: Performed By: #### L 501.0900, L500.4050, L100.0100 ####[facility] [address] [place], [address] Hemoglobin (Bld) [Mass/Vol] 11.9 g/dL Low 12.0-15.0 [facility] Comment on above: Performed By: #### L 501.0900, L500.4050, L100.0100 ####[facility] [address] [place], [address] IG% 0.500 Normal 0.0-0.9 [facility] Comment on above: Result Comment: IG% - Immature Granulocytes (promyelocytes, myelocytes andmetamyelocytes) > 1% indicates that a LEFT SHIFT is Present. Performed By: #### L 501.0900, L500.4050, L100.0100 ####[facility] [address] [place], [address] Lymphocytes/100 WBC (Bld) 12.0 % Low 19-41 [facility] Comment on above: Performed By: #### L 501.0900, L500.4050, L100.0100 ####[facility] [address] [place], [address] MCH (RBC) [Entitic mass] 32.2 pg High 27.0-32.0 [facility] Comment on above: Performed By: #### L 501.0900, L500.4050, L100.0100 ####[facility] [address] [place], [address] MCHC (RBC) [Mass/Vol] 35.2 g/dL Normal 32-36 [facility] Comment on above: Performed By: #### L 501.0900, L500.4050, L100.0100 ####[facility] [address] [place], [address] MCV (RBC) [Entitic vol] 91.4 fL Normal 81-99 [facility] Comment on above: Performed By: #### L 501.0900, L500.4050, L100.0100 ####[facility] [address], [address] Monocytes/100 WBC (Bld) 6.2 % Normal 0-10 [facility] Comment on above: Performed By: #### L 501.0900, L500.4050, L100.0100 ####[facility] [address] [place], [address] Neutrophils/100 WBC (Bld) 80.3 % High 47-70 [facility] Comment on above: Performed By: #### L 501.0900, L500.4050, L100.0100 ####[facility] [address] [place], [address] Nucleated RBC (Bld) [#/Vol] 0 10*3/uL Normal 0-5 [facility] Comment on above: Performed By: #### L 501.0900, L500.4050, L100.0100 ####[facility] [address], [address] Platelet mean volume (Bld) [Entitic vol] 10.4 fL Normal 6.2-12.0 [facility] Comment on above: Performed By: #### L 501.0900, L500.4050, L100.0100 ####[facility] [address] [place], [address] Platelets (Bld) [#/Vol] 233 10*3/uL Normal 150-450 [facility] Comment on above: Performed By: #### L 501.0900, L500.4050, L100.0100 ####[facility] [address] [place], [address] RBC (Bld) [#/Vol] 3.70 10*6/uL Low 4.2-5.4 [facility] Comment on above: Performed By: #### L 501.0900, L500.4050, L100.0100 ####[facility] [address] [place], [address] RDW SD 42.2 fl Normal 35.1-43.9 [facility] Comment on above: Performed By: #### L 501.0900, L500.4050, L100.0100 ####[facility] [address] [place], [address] WBC (Bld) [#/Vol] 10.9 10*3/uL Normal 4.4-11.0 [facility] Comment on above: Performed By: #### L 501.0900, L500.4050, L100.0100 ####[facility] [address] [place], [address] Comprehensive Metabolic Prof ilon 12-26-2024 Albumin [Mass/Vol] 3.5 g/dL Normal 3.5-5.0 [facility] Comment on above: Performed By: #### L 501.0900, L500.4050, L100.0100 ####[facility] [address] [place], [address] Albumin/Globulin [Mass ratio] 1.1 {ratio} Normal 0.9-2.4 [facility] Comment on above: Performed By: #### L 501.0900, L500.4050, L100.0100 ####[facility] [address] [place], [address] ALK PHOS 67 U/L Normal 35-104 [facility] Comment on above: Performed By: #### L 501.0900, L500.4050, L100.0100 ####[facility] [address] [place], [address] ALT [Catalytic activity/Vol] 9 U/L Normal <=34 [facility] Comment on above: Performed By: #### L 501.0900, L500.4050, L100.0100 ####[facility] [address] [place], [address] AST [Catalytic activity/Vol] 15 U/L Normal <=31 [facility] Comment on above: Performed By: #### L 501.0900, L500.4050, L100.0100 ####[facility] [address] [place], [address] Bilirubin [Mass/Vol] 0.18 mg/dL Normal 0.00-1.30 [facility] Comment on above: Performed By: #### L 501.0900, L500.4050, L100.0100 ####[facility] [address] [place], [address] BUN/CRE 10.2 RATIO Normal 10-20 [facility] Comment on above: Performed By: #### L 501.0900, L500.4050, L100.0100 ####[facility] [address] [place], [address] Calcium [Mass/Vol] 9.4 mg/dL Normal 7.6-11.0 [facility] Comment on above: Performed By: #### L 501.0900, L500.4050, L100.0100 ####[facility] [address] [place], [address] Chloride [Moles/Vol] 103 mmol/L Normal 98-108 [facility] Comment on above: Performed By: #### L 501.0900, L500.4050, L100.0100 ####[facility] [address] [place], [address] CO2 [Moles/Vol] 21.3 mmol/L Normal 21.0-32.0 [facility] Comment on above: Performed By: #### L 501.0900, L500.4050, L100.0100 ####[facility] [address] [place], [address] Creatinine [Mass/Vol] 0.50 mg/dL Low 0.70-1.20 [facility] Comment on above: Performed By: #### L 501.0900, L500.4050, L100.0100 ####[facility] [address] [place], [address] GAP 11 Normal 5-15 [facility] Comment on above: Performed By: #### L 501.0900, L500.4050, L100.0100 ####[facility] [address] [place], [address] GFR/1.73 sq M.predicted among non-blacks MDRD (S/P/Bld) [Vol rate/Area] 135 mL/min/{1.73_m2} Normal >60 [facility] Comment on above: Result Comment: mL/m in/1.73m2 CKD-EPI Creatinine Equation (2020) Performed By: #### L 501.0900, L500.4050, L100.0100 ####[facility] [address] [place], [address] Globulin (S) [Mass/Vol] 3.1 g/dL Normal 2.2-4.2 [facility] Comment on above: Performed By: #### L 501.0900, L500.4050, L100.0100 ####[facility] [address] [place], [address] Glucose [Mass/Vol] 98 mg/dL Normal 70-99 [facility] Comment on above: Performed By: #### L 501.0900, L500.4050, L100.0100 ####[facility] [address] [place], [address] Potassium [Moles/Vol] 3.9 mmol/L Normal 3.3-5.1 [facility] Comment on above: Performed By: #### L 501.0900, L500.4050, L100.0100 ####[facility] [address] [place], [address] Sodium [Moles/Vol] 136 mmol/L Normal 133-145 [facility] Comment on above: Performed By: #### L 501.0900, L500.4050, L100.0100 ####[facility] [address] [place], [address] T PROT 6.5 g/dL Normal 5.9-8.4 [facility] Comment on above: Performed By: #### L 501.0900, L500.4050, L100.0100 ####[facility] [address] [place], [address] Urea nitrogen [Mass/Vol] 5 mg/dL Normal 4-19 [facility] Comment on above: Performed By: #### L 501.0900, L500.4050, L100.0100 ####[facility] [address] [place], [address] [employer] Sales [employer] Office Visit Reporton 12-26-2024 Senior Catering Sales Manager Office Visit Report Normal [facility] Protein+Creatinine Ratio,Uri neon 12-26-2024 PROT:CRE RATIO 315 mg/g CRE High 0-200 [facility] Comment on above: Performed By: #### L 501.0900, L500.4050, L100.0100 ####[facility] [address] [place], [address] Protein (U) [Mass/Vol] 8.4 mg/dL Normal 0.0-12.0 [facility] Comment on above: Performed By: #### L 501.0900, L500.4050, L100.0100 ####[facility] [address] [place], [address] UR CREAT 26.60 mg/dL Low 28.00-217.00 [facility] Comment on above: Performed By: #### L 501.0900, L500.4050, L100.0100 ####[facility] [address] [place], [address] Urine Cultureon 12-08-2024 [facility] Mixed Gram Positive Organisms [place] Count 25,000-50,000 MIXC Mixed contaminants. Submit a new specimen if indicated. Normal [facility] Comment on above: Performed By: #### M 100.2200 ####[facility] [address] [place], [address] [employer] Sales [employer] Office Visit Reporton 12-07-2024 Senior Catering Sales Manager Office Visit Report Normal [facility] CBC W/Diff, Automatedon Absolute Lymph 1.34 X10 3/uL Normal 0.83-4.51 [facility] Comment on above: Performed By: #### L 500.4050, L100.0100 ####[facility] [address] [place], [address] Absolute Neut 8.6 X10 3/uL High 2.0-7.7 [facility] Comment on above: Performed By: #### L 500.4050, L100.0100 ####[facility] [address] [place], [address] Basophils/100 WBC (Bld) 0.2 % Normal 0-1 [facility] Comment on above: Performed By: #### L 500.4050, L100.0100 ####[facility] [address] [place], [address] Eosinophils/100 WBC (Bld) 0.7 % Normal 0-5 [facility] Comment on above: Performed By: #### L 500.4050, L100.0100 ####[facility] [address] [place], [address] Erythrocyte distribution width (RBC) [Ratio] 13.1 % Normal 11.6-14.6 [facility] Comment on above: Performed By: #### L 500.4050, L100.0100 ####[facility] [address] [place], [address] Hematocrit (Bld) [Volume fraction] 34.3 % Low 37-47 [facility] Comment on above: Performed By: #### L 500.4050, L100.0100 ####[facility] [address] [place], [address] Hemoglobin (Bld) [Mass/Vol] 11.9 g/dL Low 12.0-15.0 [facility] Comment on above: Performed By: #### L 500.4050, L100.0100 ####[facility] [address] [place], [address] IG% 0.600 Normal 0.0-0.9 [facility] Comment on above: Result Comment: IG% - Immature Granulocytes (promyelocytes, myelocytes andmetamyelocytes) > 1% indicates that a LEFT SHIFT is Present. Performed By: #### L 500.4050, L100.0100 ####[facility] [address] [place], [address] Lymphocytes/100 WBC (Bld) 12.4 % Low 19-41 [facility] Comment on above: Performed By: #### L 500.4050, L100.0100 ####[facility] [address] [place], [address] MCH (RBC) [Entitic mass] 32.3 pg High 27.0-32.0 [facility] Comment on above: Performed By: #### L 500.4050, L100.0100 ####[facility] [address] [place], [address] MCHC (RBC) [Mass/Vol] 34.7 g/dL Normal 32-36 [facility] Comment on above: Performed By: #### L 500.4050, L100.0100 ####[facility] [address] [place], [address] MCV (RBC) [Entitic vol] 93.2 fL Normal 81-99 [facility] Comment on above: Performed By: #### L 500.4050, L100.0100 ####[facility] [address] [place], [address] Monocytes/100 WBC (Bld) 6.9 % Normal 0-10 [facility] Comment on above: Performed By: #### L 500.4050, L100.0100 ####[facility] [address] [place], [address] Neutrophils/100 WBC (Bld) 79.2 % High 47-70 [facility] Comment on above: Performed By: #### L 500.4050, L100.0100 ####[facility] [address] [place], [address] Nucleated RBC (Bld) [#/Vol] 0 10*3/uL Normal 0-5 [facility] Comment on above: Performed By: #### L 500.4050, L100.0100 ####[facility] [address] [place], [address] Platelet mean volume (Bld) [Entitic vol] 10.6 fL Normal 6.2-12.0 [facility] Comment on above: Performed By: #### L 500.4050, L100.0100 ####[facility] [address] [place], [address] Platelets (Bld) [#/Vol] 246 10*3/uL Normal 150-450 [facility] Comment on above: Performed By: #### L 500.4050, L100.0100 ####[facility] [address] [place], [address] RBC (Bld) [#/Vol] 3.68 10*6/uL Low 4.2-5.4 [facility] Comment on above: Performed By: #### L 500.4050, L100.0100 ####[facility] [address] [place], [address] RDW SD 44.2 fl High 35.1-43.9 [facility] Comment on above: Performed By: #### L 500.4050, L100.0100 ####[facility] [address] [place], [address] WBC (Bld) [#/Vol] 10.8 10*3/uL Normal 4.4-11.0 [facility] Comment on above: Performed By: #### L 500.4050, L100.0100 ####[facility] [address] [place], [address] Comprehensive Metabolic Prof ilon 12-06-2024 Albumin [Mass/Vol] 3.4 g/dL Low 3.5-5.0 [facility] Comment on above: Performed By: #### L 500.4050, L100.0100 ####[facility] [address] [place], [address] Albumin/Globulin [Mass ratio] 1.1 {ratio} Normal 0.9-2.4 [facility] Comment on above: Performed By: #### L 500.4050, L100.0100 ####[facility] [address] [place], [address] ALK PHOS 70 U/L Normal 35-104 [facility] Comment on above: Performed By: #### L 500.4050, L100.0100 ####[facility] [address] [place], [address] ALT [Catalytic activity/Vol] 10 U/L Normal <=34 [facility] Comment on above: Performed By: #### L 500.4050, L100.0100 ####[facility] [address] [place], [address] AST [Catalytic activity/Vol] 17 U/L Normal <=31 [facility] Comment on above: Performed By: #### L 500.4050, L100.0100 ####[facility] [address] [place], [address] BUN/CRE 7.7 RATIO Low 10-20 [facility] Comment on above: Performed By: #### L 500.4050, L100.0100 ####[facility] [address] [place], [address] Calcium [Mass/Vol] 8.9 mg/dL Normal 7.6-11.0 [facility] Comment on above: Performed By: #### L 500.4050, L100.0100 ####[facility] [address] [place], [address] Chloride [Moles/Vol] 104 mmol/L Normal 98-108 [facility] Comment on above: Performed By: #### L 500.4050, L100.0100 ####[facility] [address] [place], [address] CO2 [Moles/Vol] 23.0 mmol/L Normal 21.0-32.0 [facility] Comment on above: Performed By: #### L 500.4050, L100.0100 ####[facility] [address] [place], [address] Creatinine [Mass/Vol] 0.52 mg/dL Low 0.70-1.20 [facility] Comment on above: Performed By: #### L 500.4050, L100.0100 ####[facility] [address] [place], [address] ECRCL 199.56 ml/min Normal 50-250 [facility] Comment on above: Performed By: #### L 500.4050, L100.0100 ####[facility] [address] [place], [address] GAP 10 Normal 5-15 [facility] Comment on above: Performed By: #### L 500.4050, L100.0100 ####[facility] [address] [place], [address] GFR/1.73 sq M.predicted among non-blacks MDRD (S/P/Bld) [Vol rate/Area] 134 mL/min/{1.73_m2} Normal >60 [facility] Comment on above: Result Comment: mL/m in/1.73m2 CKD-EPI Creatinine Equation (2020) Performed By: #### L 500.4050, L100.0100 ####[facility] [address] [place], [address] Globulin (S) [Mass/Vol] 3.0 g/dL Normal 2.2-4.2 [facility] Comment on above: Performed By: #### L 500.4050, L100.0100 ####[facility] [address] [place], [address] Glucose [Mass/Vol] 94 mg/dL Normal 70-99 [facility] Comment on above: Performed By: #### L 500.4050, L100.0100 ####[facility] [address] [place], [address] Potassium [Moles/Vol] 3.6 mmol/L Normal 3.3-5.1 [facility] Comment on above: Performed By: #### L 500.4050, L100.0100 ####[facility] [address] [place], [address] Sodium [Moles/Vol] 137 mmol/L Normal 133-145 [facility] Comment on above: Performed By: #### L 500.4050, L100.0100 ####[facility] [address] [place], [address] T BILI < 0.15 Normal 0.00-1.30 [facility] Comment on above: Performed By: #### L 500.4050, L100.0100 ####[facility] [address] [place], [address] T PROT 6.5 g/dL Normal 5.9-8.4 [facility] Comment on above: Performed By: #### L 500.4050, L100.0100 ####[facility] [address] [place], [address] Urea nitrogen [Mass/Vol] 4 mg/dL Normal 4-19 [facility] Comment on above: Performed By: #### L 500.4050, L100.0100 ####[facility] [address] [place], [address] Emergency Department Summary on 12-06-2024 Emergency Department Summary Normal [facility] Urinalysis, Completeon 12-06 AMORPHOUS 1+ Normal [facility] Comment on above: Order Comment: CLEAN CATCH Performed By: #### L 400.0001 ####[facility] [address] [place], [address] BACTERIA 1+ /hpf Normal None Seen [facility] Comment on above: Order Comment: CLEAN CATCH Performed By: #### L 400.0001 ####[facility] [address] [place], [address] EPI,SQUAMOUS 10-25 SEEN Normal 5-10 [facility] Comment on above: Order Comment: CLEAN CATCH Performed By: #### L 400.0001 ####[facility] [address] [place], [address] RBC 0-5 SEEN Normal 0-5 [facility] Comment on above: Order Comment: CLEAN CATCH Performed By: #### L 400.0001 ####[facility] [address] [place], [address] WBC 10-25 SEEN Normal 0-5 [facility] Comment on above: Order Comment: CLEAN CATCH Performed By: #### L 400.0001 ####[facility] [address] [place], [address] Mucus Ql (Urine sed) 0 SEEN Normal [facility] Comment on above: Order Comment: CLEAN CATCH Performed By: #### L 400.0001 ####[facility] [address] [place], [address] [employer] Sales [employer] Office Visit Reporton 11-09-2024 [employer] Catering Sales Manager Office Visit Report Normal [facility] Chlamydia/GC SANTY aptimaon CHLAMY,NUC ACID Negative Normal Negative [facility] Comment on above: Performed By: #### L 7000.1800 ####[facility] [address] [place], [address] GC BY NUC ACID Negative Normal Negative [facility] Comment on above: Result Comment: Perf ormed at: =G - [facility] [address] StreetWaqas vasquez, [place] [id number] Director: Monisha Ross MD, Phone: [phone] Performed By: #### L 7000.1800 ####[facility] [address] [place], [address] Senior Catering Sales Manager Office Visit Reporton 11-04-2024 Senior Catering Sales Manager Office Visit Report Normal [facility] Type AND Screenon 11-04-2024 Ab SCREEN GEL Negative Normal [facility] Comment on above: Order Comment: PN Performed By: #### B TS ####[facility] [address] [place], [address] Senior Catering Sales Manager Office Visit Reporton 10-13-2024 Senior Catering Sales Manager Office Visit Report Normal [facility] [employer] Catering Sales Manager Office Visit Reporton 10-05-2024 Senior Catering Sales Manager Office Visit Report Normal [facility] CBC W/Diff, Automatedon 08-31 Absolute Lymph 1.38 X10 3/uL Normal 0.83-4.51 [facility] Comment on above: Performed By: #### L 3890.6006, L509.8002, L509.4006, BTS, L3890.6301, L100.0100, L3890.6102, L900.0098 ####[facility] [address] [place], [place], [address] Absolute Neut 9.1 X10 3/uL High 2.0-7.7 [facility] Comment on above: Performed By: #### L 3890.6006, L509.8002, L509.4006, BTS, L3890.6301, L100.0100, L3890.6102, L900.0098 ####[facility] [address] [place], [address] Basophils/100 WBC (Bld) 0.3 % Normal 0-1 [facility] Comment on above: Performed By: #### L 3890.6006, L509.8002, L509.4006, BTS, L3890.6301, L100.0100, L3890.6102, L900.0098 ####[facility] [address] [place], [address] Eosinophils/100 WBC (Bld) 0.8 % Normal 0-5 [facility] Comment on above: Performed By: #### L 3890.6006, L509.8002, L509.4006, BTS, L3890.6301, L100.0100, L3890.6102, L900.0098 ####[facility] [address] [place], [address] Erythrocyte distribution width (RBC) [Ratio] 13.6 % Normal 11.6-14.6 [facility] Comment on above: Performed By: #### L 3890.6006, L509.8002, L509.4006, BTS, L3890.6301, L100.0100, L3890.6102, L900.0098 ####[facility] [address] [place], [address] Hematocrit (Bld) [Volume fraction] 38.6 % Normal 37-47 [facility] Comment on above: Performed By: #### L 3890.6006, L509.8002, L509.4006, BTS, L3890.6301, L100.0100, L3890.6102, L900.0098 ####[facility] [address] [place], [address] Hemoglobin (Bld) [Mass/Vol] 13.3 g/dL Normal 12.0-15.0 [facility] Comment on above: Performed By: #### L 3890.6006, L509.8002, L509.4006, BTS, L3890.6301, L100.0100, L3890.6102, L900.0098 ####[facility] [address] [place], [address] IG% 0.500 Normal 0.0-0.9 [facility] Comment on above: Result Comment: IG% - Immature Granulocytes (promyelocytes, myelocytes andmetamyelocytes) > 1% indicates that a LEFT SHIFT is Present. Performed By: #### L 3890.6006, L509.8002, L509.4006, BTS, L3890.6301, L100.0100, L3890.6102, L900.0098 ####[facility] [address] [place], [address] Lymphocytes/100 WBC (Bld) 12.0 % Low 19-41 [facility] Comment on above: Performed By: #### L 3890.6006, L509.8002, L509.4006, BTS, L3890.6301, L100.0100, L3890.6102, L900.0098 ####[facility] [address] [place], [address] MCH (RBC) [Entitic mass] 30.6 pg Normal 27.0-32.0 [facility] Comment on above: Performed By: #### L 3890.6006, L509.8002, L509.4006, BTS, L3890.6301, L100.0100, L3890.6102, L900.0098 ####[facility] [address] [place], [address] MCHC (RBC) [Mass/Vol] 34.5 g/dL Normal 32-36 [facility] Comment on above: Performed By: #### L 3890.6006, L509.8002, L509.4006, BTS, L3890.6301, L100.0100, L3890.6102, L900.0098 ####[facility] [address] [place], [address] MCV (RBC) [Entitic vol] 88.7 fL Normal 81-99 [facility] Comment on above: Performed By: #### L 3890.6006, L509.8002, L509.4006, BTS, L3890.6301, L100.0100, L3890.6102, L900.0098 ####[facility] [address] [place], [address] Monocytes/100 WBC (Bld) 7.5 % Normal 0-10 [facility] Comment on above: Performed By: #### L 3890.6006, L509.8002, L509.4006, BTS, L3890.6301, L100.0100, L3890.6102, L900.0098 ####[facility] [address] [place], [address] Neutrophils/100 WBC (Bld) 78.9 % High 47-70 [facility] Comment on above: Performed By: #### L 3890.6006, L509.8002, L509.4006, BTS, L3890.6301, L100.0100, L3890.6102, L900.0098 ####[facility] [address] [place], [address] Nucleated RBC (Bld) [#/Vol] 0 10*3/uL Normal 0-5 [facility] Comment on above: Performed By: #### L 3890.6006, L509.8002, L509.4006, BTS, L3890.6301, L100.0100, L3890.6102, L900.0098 ####[facility] [address] [place], [address] Platelet mean volume (Bld) [Entitic vol] 10.6 fL Normal 6.2-12.0 [facility] Comment on above: Performed By: #### L 3890.6006, L509.8002, L509.4006, BTS, L3890.6301, L100.0100, L3890.6102, L900.0098 ####[facility] [address] [place], [address] Platelets (Bld) [#/Vol] 274 10*3/uL Normal 150-450 [facility] Comment on above: Performed By: #### L 3890.6006, L509.8002, L509.4006, BTS, L3890.6301, L100.0100, L3890.6102, L900.0098 ####[facility] [address] [place], [address] RBC (Bld) [#/Vol] 4.35 10*6/uL Normal 4.2-5.4 [facility] Comment on above: Performed By: #### L 3890.6006, L509.8002, L509.4006, BTS, L3890.6301, L100.0100, L3890.6102, L900.0098 ####[facility] [address] [place], [address] RDW SD 44.1 fl High 35.1-43.9 [facility] Comment on above: Performed By: #### L 3890.6006, L509.8002, L509.4006, BTS, L3890.6301, L100.0100, L3890.6102, L900.0098 ####[facility] [address] [place], [address] WBC (Bld) [#/Vol] 11.5 10*3/uL High 4.4-11.0 [facility] Comment on above: Performed By: #### L 3890.6006, L509.8002, L509.4006, BTS, L3890.6301, L100.0100, L3890.6102, L900.0098 ####[facility] [address] [place], [place], [address] HIVon 09-19-2024 HIV Non-Reactive Normal Nonreactive [facility] Comment on above: Result Comment: Non- ReactiveReactiveRepeatedly reactive samples must be confirmed according [facility] recommended confirmatory algorithms. The subresults foreither HIVAG or AHIV can be used as an aid in the selectionof the confirmation algorithm for reactive samples.Send out specimens with [facility].Order the HIV antibody detection and differentiation:#[id number] Performed By: #### L 3890.6006, L509.8002, L509.4006, BTS, L3890.6301, L100.0100, L3890.6102, L900.0098 ####[facility] [address] [place], [address] Hepatitis C Antibodyon 09-19 Hepatitis C Ab Non-Reactive Normal Nonreactive [facility] Comment on above: Result Comment: Reac tive: Presumptive evidence of antibodies to HCV. [facility] [place] recommendations for supplemental testing.Non-Reactive: Antibodies to HCV were not detected; does notexclude the possibility of exposure to HCVReactive Results are presumptive evidence of antibodies toHCV. Follow CDC recommendations for supplemental testing.Order confirmation testing: HCV Quant by PCR testing -[facility] #[id number] Non Reactive: < 0.8 Equivocal: >/= 0.8 to < 1.0 Reactive: >/= 1.0The [facility] [place] requires that a reactive/equivocal HCV antibodyresult be sent out for confirmation. HCV Quant by PCRtesting. Performed By: #### L 3890.6006, L509.8002, L509.4006, BTS, L3890.6301, L100.0100, L3890.6102, L900.0098 ####[facility] [address] [place], [place], [address] L3890.6102on 09-19-2024 HEP B Surf Ag Non-Reactive Normal Nonreactive [facility] Comment on above: Result Comment: Reac tive: Presumptive evidence of HBV. Repeatedly reactivesamples must be confirmed using a neutralization test([employer] HBsAg Confirmatory Test)Non-Reactive: HBsAg not detected; does not exclude thepossibility of exposure to HBV Performed By: #### L 3890.6006, L509.8002, L509.4006, BTS, L3890.6301, L100.0100, L3890.6102, L900.0098 ####[facility] [address] [place], [address] L509.4006on 09-19-2024 Rubella IgG REAC Normal Nonreactive [facility] Comment on above: Result Comment: Anti body Result: InterpretationNon-Reactive: Non-ImmuneReactive: ImmuneThe following results were obtained with the ElecsysRubella IgG assay. Results from assays of othermanufacturers cannot be used interchangeably. Performed By: #### L 3890.6006, L509.8002, L509.4006, BTS, L3890.6301, L100.0100, L3890.6102, L900.0098 ####[facility] [address] [place], [place], [address] NATERAon 09-19-2024 NATURA SEE SCANNED REPORT Normal [facility] Comment on above: Performed By: #### L 3890.6006, L509.8002, L509.4006, BTS, L3890.6301, L100.0100, L3890.6102, L900.0098 ####[facility] [address] [place], [address] Syphilis Antibodieson 2024 Syphilis Abs Non-Reactive Normal Nonreactive [facility] Comment on above: Performed By: #### L 3890.6006, L509.8002, L509.4006, BTS, L3890.6301, L100.0100, L3890.6102, L900.0098 ####[facility] [address] [place], [address] Type AND Screenon 09-19-2024 Ab SCREEN GEL Negative Normal [facility] Comment on above: Order Comment: PN Performed By: #### L 3890.6006, L509.8002, L509.4006, BTS, L3890.6301, L100.0100, L3890.6102, L900.0098 ####[facility] [address] [place], [address] Senior Catering Sales Manager Office Visit Reporton 09-14-2024 Senior Catering Sales Manager Office Visit Report Normal [facility] Transvaginal w/Preg USon Transvaginal w/Preg US Normal [facility] Senior Catering Sales Manager Office Visit Reporton 08-24-2024 Senior Catering Sales Manager Office Visit Report Normal [facility] Urine Cultureon 08-21-2024 URC Below infection leve l. Mixed Gram Positive Organisms [place] Count <1000 MIXC Mixed contaminants. Submit a new specimen if indicated. Normal [facility] Comment on above: Performed By: #### L 505.5000, M1 ####[facility] [address] [place], [address] Senior Catering Sales Manager Office Visit Reporton 08-19-2024 Senior Catering Sales Manager Office Visit Report Normal [facility] Urine Drug Screen (VISTA)on 08-19-2024 AMPHETAMINES Negative Normal <1000 ng/mL [facility] Comment on above: Order Comment: UNK Performed By: #### L 505.5000, M1.2199 ####[facility] [address] [place], [address] BARBITIURATES Negative Normal < 200 ng/mL [facility] Comment on above: Order Comment: UNK Performed By: #### L 505.5000, M1.0 ####[facility] [address] [place], [address] BENZODIAZIPINE Negative Normal < 200 ng/mL [facility] Comment on above: Order Comment: UNK Performed By: #### L 505.5000, M100.2200 ####[facility] [address] [place], [address] BUP Ur Drug Scr Negative Normal < 200 ng/mL [facility] Comment on above: Order Comment: UNK Performed By: #### L 505.5000, 00.2200 ####[facility] [address] [place], [address] COCAINE Negative Normal < 300 ng/mL [facility] Comment on above: Order Comment: UNK Performed By: #### L 505.5000, .0 ####[facility] [address] [place], [address] Fentanyl Negative Normal [facility] Comment on above: Order Comment: UNK Performed By: #### L 505.5000, 0 ####[facility] [address] [place], [address] METHADONE Negative Normal < 300 ng/mL [facility] Comment on above: Order Comment: UNK Performed By: #### L 505.5000, ####[facility] [address] [place], [address] OPIATES Negative Normal < 300 ng/mL [facility] Comment on above: Order Comment: UNK Performed By: #### L 505.5000, .0 ####[facility] [address] [place], [address] OXYCODONE Negative Normal < 100 ng/mL [facility] Comment on above: Order Comment: UNK Performed By: #### L 505.5000, .2199 ####[facility] [address] [place], [address] PCP Negative Normal < 25 ng/mL [facility] Comment on above: Order Comment: UNK Performed By: #### L 505.5000, .0 ####[facility] [address] [place], [address] THC Negative Normal < 50 ng/mL [facility] Comment on above: Order Comment: UNK Performed By: #### L 505.5000, M100.2200 ####[facility] [address] [place], [address] B-HCG SerPl-[place] 5 [place] [address].0 m[IU]/mL High <5.0 [facility] Comment on above: Order Comment: Speci men Type: BLOOD SPECIMENOrdering Facility: [facility] Address: [address] [place] [address] Result Comment: DIEGO TITATIVE HCG NORMAL RANGES Weeks of Gestation (Weeks Since LMP) 3 Weeks (5.8-71.2 mIU/mL) 4 Weeks (9.5-750 mIU/mL) 5 Weeks (217-7138 mIU/mL) 6 Weeks (158-18902 mIU/mL) 7 Weeks (3697-476462 mIU/mL) 8 Weeks (68987-875167 mIU/mL) 9 Weeks (38421-849220 mIU/mL) 10 Weeks (69585-336842 mIU/mL) 12 Weeks (19468-929037 mIU/mL) Referenced to 4th IS of [facility] Performed By: #### 2 1198-7 ####[facility] LABCL[facility] [id number] [address] [place] B-HCG SerPl-[place]Cn[place] 5 [place] [address].0 m[IU]/mL High <5.0 [facility] Comment on above: Order Comment: Speci men Type: BLOOD SPECIMENOrdering Facility: [facility] Address: [address] [place] [address] Result Comment: DIEGO TITATIVE HCG NORMAL RANGES Weeks of Gestation (Weeks Since LMP) 3 Weeks (5.8-71.2 mIU/mL) 4 Weeks (9.5-750 mIU/mL) 5 Weeks (217-7138 mIU/mL) 6 Weeks (158-59191 mIU/mL) 7 Weeks (3697-359880 mIU/mL) 8 Weeks (27628-510011 mIU/mL) 9 Weeks (19264-124926 mIU/mL) 10 Weeks (55332-518268 mIU/mL) 12 Weeks (77969-737661 mIU/mL) Referenced to 4th IS of [facility] Performed By: #### 2 1198-7 ####[facility] LABCLIA [id number] [address] OF [facility] CNPNon 08-12-2024 CNPN Telephone (OBGYWM) ALEJANDRA KRIAN ([id number]) 2 F Date Time Provider Department 08/12/24 [...] Status:Closed by DASHA WELSH on 08/12/24 Normal [facility] B-[facility]CG [facility]-aCncon 5 HCG.beta subunit Qn 8329.0 m[IU]/mL High <5.0 [facility] Comment on above: Order Comment: Speci men Type: BLOOD SPECIMENOrdering Facility: [facility] Address: [address] [place] [address] Result Comment: DIEGO TITATIVE HCG NORMAL RANGES Weeks of Gestation (Weeks Since LMP) 3 Weeks (5.8-71.2 mIU/mL) 4 Weeks (9.5-750 mIU/mL) 5 Weeks (217-7138 mIU/mL) 6 Weeks (158-47749 mIU/mL) 7 Weeks (3697-241380 mIU/mL) 8 Weeks (94184-246233 mIU/mL) 9 Weeks (60233-606210 mIU/mL) 10 Weeks (59401-237049 mIU/mL) 12 Weeks (96943-592250 mIU/mL) Referenced to 4th IS of [facility] Performed By: #### 2 1198-7 ####[facility] LABCLIA [id number] [place] [address] [place] Bacteria Ur Culton Bacteria identified Cx Nom (U) ORGANISM ID: 1 10,000 -<50,000 CFU/ml Normal urogenital jhony Normal [facility] Comment on above: Performed By: #### 6 30-4 ####[facility] LABCLIA [id number] [place] [address] [place] C. trachomatis+N. gonorrhoea e DNA SANTY+probe Ql (Unsp spec)on 08-11-2024 C. trachomatis rRNA SANTY+probe Ql (Unsp spec) Not detected Normal Not detected [facility] Comment on above: Order Comment: Speci men Type: SWABOrdering Facility: [facility] Address: [address] [place] [address] Performed By: #### 3 6902-5, TRVAELIANE ####[facility] LABIA [id number] [address] [place] N. gonorrhoeae rRNA SANTY+probe Ql (Unsp spec) Not detected Normal Not detected [facility] Comment on above: Order Comment: Speci men Type: SWABOrdering Facility: [facility] Address: [address] [place] [address] Performed By: #### 3 6902-5, TRVAMP ####[facility] LABIA [id number] [place] [address] [place] CBC W Auto Differential pane l (Bld)on 08-11-2024 Basophils (Bld) [#/Vol] 10*3/uL Normal <0.11 [facility] Comment on above: Order Comment: Speci men Type: BLOOD SPECIMENOrdering Facility: [facility] Address: [address] [place] [address] Performed By: #### 5 7021-8 ####[facility] BRENNANWNCLIA [id number] [place] [address] [place] Basophils/100 WBC (Bld) 0.2 % Normal [facility] Comment on above: Order Comment: Speci men Type: BLOOD SPECIMENOrdering Facility: [facility] Address: [address] [place] [address] Performed By: #### 5 7021-8 ####[facility] [id number] [place] [address] [place] Differential cell count method Nom (Bld) Auto Normal [facility] Comment on above: Order Comment: Speci men Type: BLOOD SPECIMENOrdering Facility: [facility] Address: [address] [place] [address] Performed By: #### 5 7021-8 ####[facility] [id number] [place] [address] [place] Eosinophils (Bld) [#/Vol] 0.11 10*3/uL Normal <0.46 [facility] Comment on above: Order Comment: Speci men Type: BLOOD SPECIMENOrdering Facility: [facility] Address: [address] [place] [address] Performed By: #### 5 7021-8 ####[facility]ITALWNCLIA [id number] [place] [address] [place] Eosinophils/100 WBC (Bld) 1.4 % Normal [facility] Comment on above: Order Comment: Speci men Type: BLOOD SPECIMENOrdering Facility: [facility] Address: [address] [place] [address] Performed By: #### 5 7021-8 ####[facility] [id number] [place] [address] [place] Erythrocyte distribution width (RBC) [Ratio] 14.1 % Normal 11.5-15.0 [facility] Comment on above: Order Comment: Speci men Type: BLOOD SPECIMENOrdering Facility: [facility] Address: [address] [place] [address] Performed By: #### 5 7021-8 ####[facility] HOSPITALNCLIA [id number] [place] [address] [place] Hematocrit (Bld) [Volume fraction] 40.2 % Normal 36.0-46.0 [facility] [place] Comment on above: Order Comment: Speci men Type: BLOOD SPECIMENOrdering Facility: [facility] Address: [address] [place] [address] Performed By: #### 5 7021-8 ####[facility]ITALNCLIA [id number] [place] [address] [place] Hemoglobin (Bld) [Mass/Vol] 13.7 g/dL Normal 11.5-15.5 [facility] [place] Comment on above: Order Comment: Speci men Type: BLOOD SPECIMENOrdering Facility: [facility] Address: [address] [place] [address] Performed By: #### 5 7021-8 ####[facility] HOSPITALNCLIA [id number] [place] [address] [place] Immature granulocytes (Bld) [#/Vol] 10*3/uL Normal <0.10 [facility] [place] Comment on above: Order Comment: Speci men Type: BLOOD SPECIMENOrdering Facility: [facility] Address: [address] [place] [address] Performed By: #### 5 7021-8 ####[facility] HOSPITALNCLIA [id number] [place] [address] [place] Immature granulocytes/100 WBC (Bld) 0.1 % Normal [facility] [place] Comment on above: Order Comment: Speci men Type: BLOOD SPECIMENOrdering Facility: [facility] Address: [address] [place] [address] Performed By: #### 5 7021-8 ####[facility] BRENNANVEENAAMOSJuan [id number] [place] [address] [place] Lymphocytes (Bld) [#/Vol] 1.41 10*3/uL Normal 1.00-4.00 [facility] [place] Comment on above: Order Comment: Speci men Type: BLOOD SPECIMENOrdering Facility: [facility] Address: [address] [place] [address] Performed By: #### 5 7021-8 ####[facility] HOSPITALSILASA [id number] [place] [address] [place] Lymphocytes/100 WBC (Bld) 17.3 % Normal [facility] [place] Comment on above: Order Comment: Speci men Type: BLOOD SPECIMENOrdering Facility: [facility] Address: [address] [place] [address] Performed By: #### 5 7021-8 ####[facility] HOSPITALESTEPHANIAA [id number] [place] [address] [place] MCH (RBC) [Entitic mass] 30.0 pg Normal 26.0-34.0 [facility] [place] Comment on above: Order Comment: Speci men Type: BLOOD SPECIMENOrdering Facility: [facility] Address: [address] [place] [address] Performed By: #### 5 7021-8 ####[facility]OSPITALNCLIA [id number] [place] [address] [place] MCHC (RBC) [Mass/Vol] 34.1 g/dL Normal 30.5-36.0 [facility] [place] Comment on above: Order Comment: Speci men Type: BLOOD SPECIMENOrdering Facility: [facility] Address: [address] [place] [address] Performed By: #### 5 7021-8 ####[facility] HOSPITALWNCLIA [id number] [place] [address] [place] MCV (RBC) [Entitic vol] 88.2 fL Normal 80.0-100.0 [facility] [place] Comment on above: Order Comment: Speci men Type: BLOOD SPECIMENOrdering Facility: [facility] Address: [address] [place] [address] Performed By: #### 5 7021-8 ####[facility] HOSPITALLIA [id number] [place] [address] [place] Monocytes (Bld) [#/Vol] 0.66 10*3/uL Normal <0.87 [facility] [place] Comment on above: Order Comment: Speci men Type: BLOOD SPECIMENOrdering Facility: [facility] Address: [address] [place] [address] Performed By: #### 5 7021-8 ####[facility] FLORIDAA [id number] [place] [address] [place] Monocytes/100 WBC (Bld) 8.1 % Normal [facility] [place] Comment on above: Order Comment: Speci men Type: BLOOD SPECIMENOrdering Facility: [facility] Address: [address] [place] [address] Performed By: #### 5 7021-8 ####[facility] HOSPITALLIA [id number] [place] [address] [place] Neutrophils (Bld) [#/Vol] 5.93 10*3/uL Normal 1.45-7.50 [facility] [place] Comment on above: Order Comment: Speci men Type: BLOOD SPECIMENOrdering Facility: [facility] Address: [address] [place] [address] Performed By: #### 5 7021-8 ####[facility] HOSPITALNCA [id number] [place] [address] [place] Neutrophils/100 WBC (Bld) 72.9 % Normal [facility] [place] Comment on above: Order Comment: Speci men Type: BLOOD SPECIMENOrdering Facility: [facility] Address: [address] [place] [address] Performed By: #### 5 7021-8 ####[facility] [id number] [place] [address] [place] Nucleated RBC (Bld) [#/Vol] 10*3/uL Normal <0.01 [facility] [place] Comment on above: Order Comment: Speci men Type: BLOOD SPECIMENOrdering Facility: [facility] Address: [address] [place] [address] Performed By: #### 5 7021-8 ####[facility]OSPITALNCTIMPANOGOS REG[facility]AL [facility] [id number] [place] [address] [place] Nucleated RBC/100 WBC (Bld) [Ratio] 0.0 /100 WBC Normal [facility] [place] Comment on above: Order Comment: Speci men Type: BLOOD SPECIMENOrdering Facility: [facility] Address: [address] [place] [address] Performed By: #### 5 7021-8 ####[facility] HOSPITALNCTIMPANOGOS REGIONAL [facility]PITAL [id number] [place] [address] [place] Platelet mean volume (Bld) [Entitic vol] 10.0 fL Normal 9.0-12.7 [facility] [place] Comment on above: Order Comment: Speci men Type: BLOOD SPECIMENOrdering Facility: [facility] Address: [address] [place] [address] Performed By: #### 5 7021-8 ####[facility]PITALNCTIMPANOGOS REGIONAL [facility] [id number] [place] [address] [place] Platelets (Bld) [#/Vol] 266 10*3/uL Normal 150-400 [facility] [place] Comment on above: Order Comment: Speci men Type: BLOOD SPECIMENOrdering Facility: [facility] Address: [address] [place] [address] Performed By: #### 5 7021-8 ####[facility] HOSPITALNCLIA [id number] [place] [address] [place] RBC (Bld) [#/Vol] 4.56 10*6/uL Normal 3.90-5.20 [facility] Comment on above: Order Comment: Speci men Type: BLOOD SPECIMENOrdering Facility: [facility] Address: [address] [place] [address] Performed By: #### 5 7021-8 ####[facility]PITALNCTIMPANOGOS [facility] [id number] [place] [address] [place] WBC (Bld) [#/Vol] 8.14 10*3/uL Normal 3.70-11.00 [facility] Comment on above: Order Comment: Speci men Type: BLOOD SPECIMENOrdering Facility: [facility] Address: [address] [place] [address] Performed By: #### 5 7021-8 ####[facility] FLORIDAA [id number] [place] [address] [place] HBV surface Ag Ql (S)on 07-30 Interpretation and review of laboratory results Normal [facility] HBV surface Ag Ser Qlon 07-30 HBV surface Ag Ql (S) Negative Normal Negative [facility] [place] Comment on above: Order Comment: Speci men Type: BLOOD SPECIMENOrdering Facility: [facility] Address: [address] [place] [address] Performed By: #### 5 195-3, 32842-9, 41722-5 ####[facility] LABCLIA [id number] [place] [address] [place] HCG QUANTITATIVEon HCG.beta subunit Qn 8329 m[IU]/mL High NINF [facility] Comment on above: QUANTITATIVE HCG NOR MAL RANGES Weeks of Gestation (Weeks Since LMP) 3 Weeks (5.8-71.2 mIU/mL) 4 Weeks (9.5-750 mIU/mL) 5 Weeks (217-7138 mIU/mL) 6 Weeks (158-03915 mIU/mL) 7 Weeks (3697-784918 mIU/mL) 8 Weeks (20412-608358 mIU/mL) 9 Weeks (31111-316161 mIU/mL) 10 Weeks (95593-979976 mIU/mL) 12 Weeks (06944-519179 mIU/mL) Referenced to 4th IS of [facility] HCG.beta subunit Qnon 2024 Interpretation and review of laboratory results Abnormal [facility] HCV Ab Ser Qlon 08-11-2024 HCV Ab Ql (S) Negative Normal Negative [facility] [place] Comment on above: Order Comment: Speci men Type: BLOOD SPECIMENOrdering Facility: [facility] Address: [address] [place] [address] Result Comment: The result suggests no evidence of active infection with Hepatitis C virus. Should recent infection be suspected, repeat testing may be considered 4-6 weeks after this draw. Performed By: #### 1 6128-1 ####[facility] LABCLIA [id number] [place] [address] [place] HEPATITIS B SURFACE ANTIGENo n 08-11-2024 HBV surface Ag Ql (S) Negative Negative [facility] HIV 1+2 Ab IA Qlon HIV 1 and 2 Ab IA.rapid Nom (S/P/Bld) [facility] Comment on above: Test not indicated. HIV 1+2 Ab+HIV1 p24 Ag IA Ql Non-Reactive Nonreactive [facility] HIV immunoassay testing algorithm interpretation (S/P/Bld) [Interp] [facility] Comment on above: No evidence of HIV-1 or HIV-2 infection. Should recent infection be suspected, repeat testing may be considered 2-3 weeks after this draw. [place] Rev. Code 3701.243(E): This information has been [...] release of HIV test results or diagnoses. [facility] HIV 1 and 2 Ab IA.rapid Nom (S/P/Bld) Normal [facility] [place] Comment on above: Order Comment: Speci men Type: BLOOD SPECIMENOrdering Facility: [facility] Address: [address] [place] [address] Result Comment: Test not indicated. Performed By: #### 5 195-3, 72906-3, 24397-1 ####[facility] LABBRIGHTL[facility] [id number] [place] [address] [place] HIV 1+2 Ab+HIV1 p24 Ag IA Ql Non-Reactive Normal Nonreactive [facility] [place] Comment on above: Order Comment: Speci men Type: BLOOD SPECIMENOrdering Facility: [facility] Address: [address] [place] [address] Performed By: #### 5 195-3, 75757-0, 66403-2 ####[facility] LABIA [id number] [place] [address] [place] HIV immunoassay testing algorithm interpretation (S/P/Bld) [Interp] Normal [facility] [place] Comment on above: Order Comment: Speci men Type: BLOOD SPECIMENOrdering Facility: [facility] Address: [address] [place] [address] Result Comment: No e vidence of HIV-1 or HIV-2 infection. Should recent infection be suspected, repeat testing may be considered 2-3 weeks after this draw. [place] Rev. Code 3701.243(E): This information has been [...] or diagnoses. Performed By: #### 5 195-3, 50143-8, 09755-6 ####[facility] LABCLIA [id number] [place] [address] [place] HbA1c (Bld)on 08-11-2024 Average glucose Estimated from glycated hemoglobin (Bld) [Mass/Vol] 97 mg/dL [facility] Comment on above: eAG: (Estimated aver age glucose) is a calculated value from HgbA1c and is dealer compliance representative of the average blood glucose level in the last 2-3 month period. HbA1c (Bld) [Mass fraction] 5 % 4.3 - 5.6 % [facility] Comment on above: [place] Diabetes As sociation guidelines indicate that patients with HgbA1c in the range 5.7-6.4% are at increased risk for development of diabetes, and intervention by lifestyle modification may be beneficial. HgbA1c greater or equal to 6.5% is considered diagnostic of diabetes. [facility] Average glucose Estimated from glycated hemoglobin (Bld) [Mass/Vol] 97 mg/dL Normal [facility] [place] Comment on above: Order Comment: Speci men Type: BLOOD SPECIMENOrdering Facility: [facility] Address: [address] [place] [address] Result Comment: eAG: (Estimated average glucose) is a calculated value from HgbA1c and is dealer compliance representative of the average blood glucose level in the last 2-3 month period. Performed By: #### 5 5454-3 ####[facility] LABIA [id number] [place] [id number] [place] HbA1c (Bld) [Mass fraction] 5.0 % Normal 4.3-5.6 [facility] [place] Comment on above: Order Comment: Speci men Type: BLOOD SPECIMENOrdering Facility: [facility] Address: [address] [place] [address] Result Comment: [place] Diabetes Association guidelines indicate that patients with HgbA1c in the range 5.7-6.4% are at increased risk for development of diabetes, and intervention by lifestyle modification may be beneficial. HgbA1c greater or equal to 6.5% is considered diagnostic of diabetes. 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 ULTRASOUNDon 08-12-19 Indication Viability; confirm cardiac activity [...] Read By: Christianne Carranza CNM MATERNAL MEDICINE [facility] Radiology Study observation (narrative) [facility] RUBELLA IGG ANTIBODYon 08-11 RUBELLA IGG AB, QUAL Positive Normal Positive [facility] Comment on above: Order Comment: Speci men Type: BLOOD SPECIMENOrdering Facility: [facility] Address: [address] [place] [address] Result Comment: The result suggests recent or past exposure to Rubella virus or history of Rubella vaccination. Positive result may also be seen due to presence of passively-transferred antibodies. Please correlate with patient's history. Performed By: #### R UBIGG ####[facility] LABIA [id number] [address] [place] Reagin and Treponema pallidu m IgG and IgM [Interp]on 08-11-2024 T. pallidum IgG+IgM IA Ql (S) Non-Reactive Nonreactive [facility] T. pallidum IgG+IgM IA Ql (S) Non-Reactive Normal Nonreactive [facility] [place] Comment on above: Order Comment: Speci men Type: BLOOD SPECIMENOrdering Facility: [facility] Address: [address] [place] [address] Performed By: #### 5 195-3, 67256-3, 51019-4 ####[facility] LABCLIA [id number] [place] [address] [place] Reagin+T pallidum IgG+IgM Se rPl-Impon 08-11-2024 Reagin and Treponema pallidum IgG and IgM [Interp] Cannot exclude recent Treponemal infection if specimen collected within 7-10 days after appearance of suspect lesions or 2-3 weeks after an exposure. Clinical correlation is required. Normal [facility] [place] Comment on above: Order Comment: Speci men Type: BLOOD SPECIMENOrdering Facility: [facility] Address: [address] [place] [address] Performed By: #### 5 195-3, 18923-2, 77864-8 ####[facility] LABIA [id number] [place] [id number] [place] SYPHILIS TREPONEMAL W/REFLEX on 08-11-2024 Reagin and Treponema pallidum IgG and IgM [Interp] Cannot exclude recent Treponemal infection if specimen collected within 7-10 days after appearance of suspect lesions or 2-3 weeks after an exposure. Clinical correlation is required. [facility] TRICHOMONAS VAGINALIS NAATon 08-11-2024 T. vaginalis DNA SANTY+probe Ql (Unsp spec) Not detected Normal Not detected [facility] [place] Comment on above: Order Comment: Speci men Type: SWABOrdering Facility: [facility] Address: [address] [place] [address] Performed By: #### 3 6902-5, TRVAMP ####[facility] LABIA [id number] [place] [id number] [place] TYPE + SCREEN PRENATALon ABO group Nom (Bld) A [facility] Blood group antibody screen Ql Negative [facility] Rh Nom (Bld) Negative [facility] Type and Screen Expiration 08/14/2024 23:59 [facility] ABO A Normal [facility] [place] Comment on above: Order Comment: Speci men Type: BLOOD SPECIMENOrdering Facility: [facility] Address: [address] [place] [address] Performed By: #### T SPN ####CC MAIN BLOOD BANKCLIA [id number] [address] [place] Rh Nom (Bld) Negative Normal [facility] [place] Comment on above: Order Comment: Speci men Type: BLOOD SPECIMENOrdering Facility: [facility] Address: [address] [place] [address] Performed By: #### T SPN ####CC MAIN BLOOD BANKCLIA [id number] [address] [place] TYPE AND SCREEN EXPIRATION 08/14/2024 23:59 Normal [facility] [place] Comment on above: Order Comment: Speci men Type: BLOOD SPECIMENOrdering Facility: [facility] Address: [address] [place] [address] Performed By: #### T SPN ####CC MAIN BLOOD BANKCLIA [id number] [address] [place] CNPNon 08-09-2024 CNPN Telephone (OBGYWM) ALEJANDRA KIRAN ([id number]) 2 F Date Time Provider Department 08/09/24 [...] Encounter Status:Closed by PERLA MUNOZ on 08/24/24 [facility] CNOVon 06-29-2024 CNOV Office Visit (OBGYWM ) PLANT,ALEJANDRA N ([id number]) 2 F Date Time Provider Department 06/29/24 9:10 AM MIKE CEBALLOS During your visit today, we recorded the following information about you: Blood pressure Weight Height Last Period 100/64 80.7 kg 1.727 m 06/01/24 Mike Ceballos MD 07/01/2024 10:13 AM Signed Ice Rink Attendant offered: Patient accepts, visit chaperoned by Erica [...] L0 SAB0 IAB0 Ectopic0 Multiple0 Live Births0 Hospital Medical Assistant History LMP: 06/01/2024, Having periods Age at Menarche: 13 Age at First : Age at Menopause: Hospital Medical Assistant History Comments: Sexual Activity: Yes; Male Contraception: [...] discussed with the Patient or Patient's Authorized Architectural Engineer. As applicable, any other physician, advance practice provider, medical student, or other health professional student that will be observing or involved in the sensitive examination for educational or training purposes was discussed with the Patient or Authorized Architectural Engineer. The Patient or Authorized Architectural Engineer has agreed to proceed with the sensitive [...] external genitalia normal, normal Bartholin's glands, urethra, [place]'s glands, no vulvar lesions, no cervical lesions, [...] - Cough (more content not included)... Normal [facility] UA DIP,URINE HCG (POC)on Beta HCG ( test) Ql (U) Negative Negative [facility] Comment on above: Location:[facility], [address], [place], [address] Director Software Development (POCT) Internal QC [place] [facility] Location:[facility], [address], [place], [address] [facility] POINT OF CARE [facility] CNOVon 05-11-2024 CNOV Office Visit (OBGYWM ) ALEJANDRA KIRAN ([id number]) 2 F Date Time Provider Department 05/11/24 10:30 AM MIKE CEBALLOS During your visit today, we recorded the following information about you: Blood pressure Weight 106/74 76.2 kg Mike Ceballos MD 05/11/2024 10:51 AM Signed Ice Rink Attendant offered: Patient accepts, visit chaperoned by Erica [...] Mike Ceballos MD Referring Provider: DELL ALONSO [[id number]] Allergies As of Date: 05/11/2024 Noted Allergy Reaction POTATO 06/24/2016 2 - Rash 4 - Hives SEASONAL ALLERGIES 02/18/2018 3 - Cough Comments: Seasonal allergies Date Reviewed: 05/11/2024 Reviewed by: Erica Beverly MA - Fully Assessed Reason for Visit: IUD Removal [1949] Primary Visit Diagnosis:Encounter for IUD removal [Z30.432] Order(s):REMOVE INTRAUTERINE DEVICE [4334448] Order #: [id number] UA DIP,URINE HCG (POC) [1339681] Order #: [id number]. #:[id number] Prescriptions as of 05/11/2024 - cetirizine (ZYRTEC) [...] for Encounter Date Provider Department Center 05/11/2024 [id number] CEBALLOS [facility] Encounter Status:Closed by MIKE CEBALLOS on 05/11/24 Normal [facility] UA DIP,URINE HCG (POC)on Beta HCG ( test) Ql (U) Negative Negative [facility] Comment on above: Location:[facility], [address], [place], [address] Director Software Development (POCT) Internal QC [facility] Location:[facility], [address], [place], [address] [facility] POINT OF CARE [facility] 01-18-2024 MARLEYN Telephone (ISHAWKevyn) ALEJANDRA KIRAN ([id number]) 2 F Date Time Provider Department 01/18/24 [...] for IUD removal [Z30.432] Order(s):REMOVE INTRAUTERINE DEVICE [[id number]] Order #: [id number] Prescriptions as of 01/18/2024 - cariprazine (VRAYLAR) [...] Encounter Status:Closed by HELLEN CAMPOVERDE on 01/18/24 [facility] CNOVon 11-25-2023 CNOV Office Visit (OBGYWM ) ALEJANDRA KIRAN Beryl ([id number]) 2 F Date Time Provider Department 11/25/23 8:00 AM MIKE CEBALLOS During your visit today, we recorded the following information about you: Blood pressure Weight 100/60 75.3 kg Mike Cebalols MD 11/25/2023 9:37 AM Signed Alejandra Christensen Magno is a 23 year old female who presents for problem visit wishing to discuss fertility related to her progestin IUD, Liletta and parental hx of IVF. Reports irregular menses related to anorexia 7140-[address]8 now resolved and IUD place 2020. Menarche ~ 13 yo and regular until weight loss to 106. Now 160, 5'8. Monthly/cyclic discharge on underwear.. HPI: as above and planning in ~ 12 mo, always feels cold OB History T0 L0 SAB0 IAB0 Ectopic0 Multiple0 Live Births0 Hospital Medical Assistant History LMP: 01/15/2023 (Exact Date), IUD Age at Menarche: Age at First : Age at Menopause: Hospital Medical Assistant History Comments: Sexual Activity: Yes; Male Contraception: [...] external genitalia normal, normal Bartholin's glands, urethra, [place]'s glands, no vulvar lesions, no cervical lesions, good vaginal support, physiologic discharge present, normal appearing perineal body and perianal region BIMANUAL: uterus normal size, shape and consistency, no adnexal masses, and non-tender NEURO: alert and oriented x3,exam grossly non-focal EXTREMITIES: normal ASSESSMENT AND PLAN: 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 Normal [facility] TSH SerPl-aCncon 11-25-2023 TSH Qn 0.989 m[IU]/L Normal 0.270-4.200 [facility] Comment on above: Order Comment: Speci men Type: BLOOD SPECIMENOrdering Facility: [facility] Address: [address] [place] [address] Result Comment: If t he patient is , TSH reference range varies by gestational period: First Trimester (weeks 9-12): 0.180-2.990 mIU/L Second Trimester: 0.110-3.980 mIU/L Third Trimester: 0.480-4.710 mIU/L Xander Walker et al. A Practical Approach for the Verifications and Determination of Site- and Trimester-Specific Reference Intervals for Thyroid Function tests in . Thyroid, 2019:29:3:412-420. Milind Bergman et al. 2017 Guidelines of the [place] [employer] for the Diagnosis and Management of Thyroid Disease during and the . Thyroid, 2017:27:3:315-389. Performed By: #### 3 016-3 ####[facility] LABCLIA [id number] [facility] [id number], [place] [address] [place] Basic Metabolic Panelon 01-0 Anion gap [Moles/Vol] 8 Normal [facility] Comment on above: Performed By: #### B MP3, HGHCT, TROPI ####[facility] [place] [address] Calcium [Mass/Vol] 9.3 mg/dL Normal 8.4-10.4 [facility] Comment on above: Performed By: #### B MP3, HGHCT, TROPI ####[address] [place] [address] Chloride [Moles/Vol] 99 mmol/L Normal 98-107 [facility] Comment on above: Performed By: #### B MP3, HGHCT, TROPI ####[address] [place] [address] CO2 [Moles/Vol] 28 mmol/L Normal 22-30 [facility] Comment on above: Performed By: #### B MP3, HGHCT, TROPI ####[address] [place] [address] Creatinine [Mass/Vol] 0.69 mg/dL Normal 0.52-1.25 [facility] Comment on above: Performed By: #### B MP3, HGHCT, TROPI ####[address] [place] [address] GFR/1.73 sq M predicted among blacks MDRD (S/P/Bld) [Vol rate/Area] mL/min/{1.73_m2} Normal >60 [facility] Comment on above: Performed By: #### B MP3, HGHCT, TROPI ####[address] [place] [address] GFR/1.73 sq M predicted among non-blacks MDRD (S/P/Bld) [Vol rate/Area] mL/min/{1.73_m2} Normal >60 [facility] Comment on above: Result Comment: KDIG [...] Performed By: #### B MP3, HGHCT, TROPI ####[address] [place] [address] Glucose [Mass/Vol] 104 mg/dL High 70-100 [facility] Comment on above: Performed By: #### B MP3, HGHCT, TROPI ####[address] [place] [address] Potassium [Moles/Vol] 3.5 mmol/L Normal 3.5-5.1 [facility] Comment on above: Performed By: #### B MP3, HGHCT, TROPI ####[facility] [place] [address] Sodium [Moles/Vol] 135 mmol/L Normal 135-145 [facility] Comment on above: Performed By: #### B MP3, HGHCT, TROPI ####[address] [place] [address] Urea nitrogen [Mass/Vol] 11 mg/dL Normal 7-20 [facility] Comment on above: Performed By: #### B MP3, HGHCT, TROPI ####[facility] [place] [address] Anion gap [Moles/Vol] 8 mmol/L [place], [place] Calcium [Mass/Vol] 9.3 mg/dL 8.4 - 10. 4 mg/dL [place] Chloride [Moles/Vol] 99 mmol/L 98 - 107 mmol/L [place] CO2 [Moles/Vol] 28 mmol/L 22 - 30 mmol/L [place] Creatinine [Mass/Vol] 0.69 mg/dL 0.52 - 1.25 mg/dL [place] EGFR IF NonAfrican [place] African >90.0 >60 mL/min [place] Comment on above: KDIGO guidelines pro [...] MDRD (S/P/Bld) [Vol rate/Area] mL/min/{1.73_m2} >60 mL/min [place] Glucose [Mass/Vol] 104 mg/dL High 70 - 100 mg/dL [place], [place] Potassium [Moles/Vol] 3.5 mmol/L 3.5 - 5.1 mmol/L [place] Sodium [Moles/Vol] 135 mmol/L 135 - 145 mmol/L [place], [place] Urea nitrogen [Mass/Vol] 11 mg/dL 7 - 20 mg/dL [place] Test Performed by [facility], [address] [place] [address] [place], [place] COVID-19on 06-06-2020 SARS-CoV-2 Not Detected. Not Detected [place] Comment on above: Not Detected. Method: Antigen detection by lateral flow. Results should not be the sole factor in determining infection status. Test [facility] by [facility], [address] 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 : 2000 Requested By: CAROLINA LOMELI Order Number: [id number] Reading MD: Peewee Peterson Measurements Intervals [place] Rate: 57 P: 46 MN: 119 QRS: 57 QRSD: 92 T: 52 QT: 433 QTc: 422 Interpretive Statements Sinus bradycardia Compared to ECG 06/04/2020 22:31:38 Sinus rhythm no longer present Electronically Signed On 06-06-2020 18:13:50 EST by [facility] [facility] Test Date: 2020-06-05 Pat Name: Alejandra Desaisocorro Department: 08 Room: 2629 Gender: F Crystallography Teacher: XAVIER : 2000 Requested By: CAROLINA LOMELI Order Number: [id number] Reading MD: Peewee Peterson Measurements Intervals [place] Rate: 57 P: 46 MN: 119 QRS: 57 QRSD: 92 T: 52 QT: 433 QTc: 422 Interpretive Statements Sinus bradycardia Compared to ECG 06/04/2020 22:31:38 Sinus rhythm no longer present Electronically Signed On 06-06-2020 18:13:50 EST by [place] Glucose,Bedsideon 06-06-2020 Glucose [Mass/Vol] 94 mg/dL Normal 70-100 [facility] [facility] Comment on above: Result Comment: Test performed by glucose meter. Results may be 10%-15% lower than serum/plasma values. (CLIA ID [id number]) Performed By: #### B GLU #### [address] [address] Hemoglobin AND Hematocriton 06-06-2020 Hematocrit (Bld) [Volume fraction] 34.6 % Low 35.0-47.0 [facility] Comment on above: Performed By: #### B MP3, HGHCT, TROPI ####[address] [address] Hemoglobin (Bld) [Mass/Vol] 11.5 g/dL Low 11.7-16.0 [facility] [facility] Comment on above: Performed By: #### B MP3, HGHCT, TROPI ####[address] [address] Hemoglobin and Hematocrit, B loodon 06-06-2020 Hematocrit (Bld) [Volume fraction] 34.6 % Low 35 - 47 % [place] Hemoglobin (Bld) [Mass/Vol] 11.5 g/dL Low 11.7 - 16 g/dL [place] Test Performed by [id number] [place] [address] Lipid Panelon 06-06-2020 Cholesterol in HDL [Mass/Vol] 43 mg/dL Normal 40-60 [place], [place] Comment on above: Performed By: #### L IPD2 #### [facility] [address] [address] Cholesterol.total/Ch olesterol in HDL [Mass ratio] 4 Normal [facility] Comment on above: Result Comment: Ref Range: < 3 Low Risk for CHD 3-6 Mod Risk for CHD > 6 High Risk for CHD Performed By: #### L IPD2 #### [facility] [address] [address] Protein [Mass/Vol] 105 mg/dL Abnormal <100 [facility] Comment on above: Performed By: #### L IPD2 #### [facility] [address] [address] Cholesterol [Mass/Vol] 164 mg/dL Normal < 200 [place], [place] Comment on above: Performed By: #### L IPD2 #### [facility] [address] [place] [address] Triglyceride [Mass/Vol] 80 mg/dL Normal <150 [place], [place] Comment on above: Performed By: #### L IPD2 #### [facility] [address] [place] [address] Lipid panel - fastingon Cholesterol in LDL [Mass/Vol] 105 mg/dL Abnormal <100 [place] Cholesterol.total/Ch olesterol in HDL [Mass ratio] 4 {ratio} [place], [place] Comment on above: Ref Range: < 3 Low Risk for CHD 3-6 Mod Risk for CHD > 6 High Risk for CHD Test Performed by [facility], [address] [place] [address] [place], [place] Otheron 06-06-2020 Interpretation and review of laboratory results Abnormal [place], [place] POCT troponinon 06-06-2020 Troponin I.cardiac [Mass/Vol] 0.00 ng/mL 0 - 0.08 ng/mL [place], [place] Comment on above: . Test Performed by [facility], [address] [place] [address] [place], [place] [id number] 06-06-2020 SARS-CoV-2 SARS-CoV-2 --> Statu s: F Not Detected. Method: Antigen detection by lateral flow. Results should not be the sole factor in determining infection status. Method: Antigen detection by lateral flow. Results should not be the sole factor in determining infection status. Normal [employer] [facility] Comment on above: Performed By: #### C OVID ####[facility] [address] [place], [place] Troponin, ISTATon 06-06-2020 Troponin I.cardiac [Mass/Vol] 0.00 ng/mL Normal 0.00-0.08 [facility] [facility] Comment on above: Result Comment: . Performed By: #### B MP3, HGHCT, TROPI ####[facility] [id number] [place] [address] POCT Glucoseon 06-05-2020 Glucose [Mass/Vol] 94 mg/dL 70 - 100 mg/dL [place], [place] Comment on above: Test performed by ucose meter. Results may be 10%-15% lower than serum/plasma values. (CLIA ID [id number]) Test Performed by [facility], [address] [place] [address] [place], [place] [id number] 06-05-2020 SARS-CoV-2 SARS-CoV-2 --> Statu s: F Not Detected. Expected Result: Not Detected _ Real-time, RT-PCR performed on the [employer] System by the [facility] [employer] Service. Negative results do not preclude SARS-CoV-2 infection and should not be used as the sole basis for treatment or other patient management decisions. This assay was developed by [employer] and distributed under an Emergency Use Authorization (EUA) granted by the FDA for the qualitative detection of SARS-CoV-2 nucleic acid. Expected Result: Not Detected _ Real-time, RT-PCR performed on the [employer] System by the [facility] Diversion Service. Negative results do not preclude SARS-CoV-2 infection and should not be used as the sole basis for treatment or other patient management decisions. This assay was developed by [employer] and distributed under an Emergency Use Authorization (EUA) granted by the FDA for the qualitative detection of SARS-CoV-2 nucleic acid. Normal [facility] Comment on above: Performed By: #### C OVID ####[facility] [address] [place] [address] hCG Qual Pregon 06-05-2020 hCG Qual Preg Negative Normal [facility] Comment on above: Result Comment: Refe rence Range: NEGATIVE Effective 08/12/2019, the reference interval for the qualitative test has been updated. This test detects hCG at concentrations of 10 mIU/L or greater in serum. Performed By: #### A CET4, SAL33, ETOH4, QWAL, HEMDF, CMP3 #### [facility] [address] ACETAMINOPHEN LEVELon 2020 Acetaminophen [Mass/Vol] <10.0 10 - 30 ug/mL [facility] [place] [place] Acetaminophenon 06-04-2020 Acetaminophen [Mass/Vol] < 10.0 Normal 10.0-30.0 [facility] Comment on above: Performed By: #### A CET4, SAL33, ETOH4, QWAL, HEMDF, CMP3 #### [address] [place], [place] Comp Metabolic Panelon 06-04 ALP [Catalytic activity/Vol] 87 U/L Normal 38-126 [facility] Comment on above: Performed By: #### A CET4, SAL33, ETOH4, QWAL, HEMDF, CMP3 #### [address] ALT [Catalytic activity/Vol] 11 U/L Normal 0-34 [facility] Comment on above: Result Comment: The ALT test is performed by an updated assay method. Please note that the reference intervals have been changed and are now sex specific. Performed By: #### A CET4, SAL33, ETOH4, QWAL, HEMDF, CMP3 #### [address] AST [Catalytic activity/Vol] 30 U/L Normal 15-46 [facility] Comment on above: Performed By: #### A CET4, SAL33, ETOH4, QWAL, HEMDF, CMP3 #### [address] Bilirubin [Mass/Vol] 0.4 mg/dL Normal 0.2-1.3 [facility] Comment on above: Performed By: #### A CET4, SAL33, ETOH4, QWAL, HEMDF, CMP3 #### [address] Calcium [Mass/Vol] 10.0 mg/dL Normal 8.4-10.4 [facility] Comment on above: Performed By: #### A CET4, SAL33, ETOH4, QWAL, HEMDF, CMP3 #### [address] [place], [place] Glucose [Mass/Vol] 99 mg/dL Normal 70-100 [facility] Comment on above: Performed By: #### A CET4, SAL33, ETOH4, QWAL, HEMDF, CMP3 #### [address] [address] [place] Protein [Mass/Vol] 8.2 g/dL Normal 6.3-8.2 [facility] Comment on above: Performed By: #### A CET4, SAL33, ETOH4, QWAL, HEMDF, CMP3 #### [address] [place] Urea nitrogen [Mass/Vol] 6 mg/dL Low 7-20 [facility] Comment on above: Performed By: #### A CET4, SAL33, ETOH4, QWAL, HEMDF, CMP3 #### [address] [place] Anion gap [Moles/Vol] 11 Normal [facility] Comment on above: Performed By: #### A CET4, SAL33, ETOH4, QWAL, HEMDF, CMP3 #### [address] [place] CO2 [Moles/Vol] 24 mmol/L Normal 22-30 [facility] Comment on above: Performed By: #### A CET4, SAL33, ETOH4, QWAL, HEMDF, CMP3 #### [address] [place] Creatinine [Mass/Vol] 0.62 mg/dL Normal 0.52-1.25 [facility] Comment on above: Performed By: #### A CET4, SAL33, ETOH4, QWAL, HEMDF, CMP3 #### [address] [place] GFR/1.73 sq M predicted among blacks MDRD (S/P/Bld) [Vol rate/Area] mL/min/{1.73_m2} Normal >60 [facility] Comment on above: Performed By: #### A CET4, SAL33, ETOH4, QWAL, HEMDF, CMP3 #### [address] GFR/1.73 sq M predicted among non-blacks MDRD (S/P/Bld) [Vol rate/Area] mL/min/{1.73_m2} Normal >60 [facility] Comment on above: Result Comment: KDIG [...] CET4, SAL33, ETOH4, QWAL, HEMDF, CMP3 #### [address] Potassium [Moles/Vol] 3.6 mmol/L Normal 3.5-5.1 [facility] Comment on above: Performed By: #### A CET4, SAL33, ETOH4, QWAL, HEMDF, CMP3 #### [address] Sodium [Moles/Vol] 138 mmol/L Normal 135-145 [facility] Comment on above: Performed By: #### A CET4, SAL33, ETOH4, QWAL, HEMDF, CMP3 #### [address] Albumin [Mass/Vol] 4.8 g/dL Normal 3.5-5.0 [facility] Comment on above: Performed By: #### A CET4, SAL33, ETOH4, QWAL, HEMDF, CMP3 #### [facility] [address] [place] [address] Chloride [Moles/Vol] 103 mmol/L Normal 98-107 [facility] Comment on above: Performed By: #### A CET4, SAL33, ETOH4, QWAL, HEMDF, CMP3 #### [facility] [address] [place] [address] Comprehensive Metabolic Pane roverto 06-04-2020 Albumin [Mass/Vol] 4.8 g/dL 3.5 - 5 g/dL [place] ALP [Catalytic activity/Vol] 87 U/L 38 - 126 U/L [place], [place] ALT [Catalytic activity/Vol] 11 U/L 0 - 34 U/L [place] Comment on above: The ALT test is perf ormed by an updated assay method. Please note that the reference intervals have been changed and are now sex specific. Anion gap [Moles/Vol] 11 mmol/L [place] AST [Catalytic activity/Vol] 30 U/L 15 - 46 U/L [place], [place] Bilirubin Ql (U) 0.4 mg/dL 0.2 - 1.3 mg/dL [place] Calcium [Mass/Vol] 10.0 mg/dL 8.4 - 10. 4 mg/dL [place], [place] Chloride [Moles/Vol] 103 mmol/L 98 - 107 mmol/L [place] CO2 [Moles/Vol] 24 mmol/L 22 - 30 mmol/L [place] Creatinine [Mass/Vol] 0.62 mg/dL 0.52 - 1.25 mg/dL [place], [place] EGFR IF NonAfrican [place] African >90.0 >60 mL/min [place], [place] Comment on above: KDIGO guidelines pro [...] MDRD (S/P/Bld) [Vol rate/Area] mL/min/{1.73_m2} >60 mL/min [place], [place] Glucose [Mass/Vol] 99 mg/dL 70 - 100 mg/dL [place], [place] Interpretation and review of laboratory results Abnormal [place], [place] Potassium [Moles/Vol] 3.6 mmol/L 3.5 - 5.1 mmol/L [place] Protein [Mass/Vol] 8.2 g/dL 6.3 - 8.2 g/dL [place] Sodium [Moles/Vol] 138 mmol/L 135 - 145 mmol/L [place], [place] Urea nitrogen [Mass/Vol] 6 mg/dL Low 7 - 20 mg/dL [place], [place] Drugs of Abuseon 06-04-2020 Cocaine, Ur Negative Normal [facility] Comment on above: Performed By: #### D RGA4 ####[address] [place], [place] Opiates, Ur Negative Normal [facility] Comment on above: Performed By: #### D RGA4 ####[address] [place] [address] Phencyclidine (PCP), Ur Negative Normal [facility] Comment on above: Result Comment: The [...] separate order. Performed By: #### D RGA4 ####[facility] [address] [facility] [place] [address] Methadone, Ur Negative Normal [facility] Comment on above: Performed By: #### D RGA4 ####[facility] [address] [place] [address] Amphetamines, Ur Negative Normal [facility] Comment on above: Performed By: #### D RGA4 ####[facility] [address] [facility] [place] [address] Barbiturates, Ur Negative Normal [facility] Comment on above: Performed By: #### D RGA4 ####[facility] [address] [facility] [place] [address] Benzodiazepines, Ur Negative Normal [facility] Comment on above: Performed By: #### D RGA4 ####[facility] [address] [place] [place] [address] Oxycodone/Oxymorphin e,Ur Negative Normal [facility] Comment on above: Performed By: #### D RGA4 ####[facility] [address] [place] [address] ED Provider Noteon ED Provider Note Emergency [...] is scared she will hurt herself further. TRIBE (Location/Symptom, Timing/Onset, Context/Setting, Quality, Duration, Modifying Factors, [...] otherwise acutely negative except as in the TRIBE. Past History History reviewed. No pertinent past [...] on phone: None Gets together: None Attends yazidi service: None Active member of club or [...] eGFR >90.0 >60 mL/min EGFR IF NonAfrican South African >90.0 >60 mL/min Calcium 10.0 8.4 - [...] # 1.6 1.0 - 4.3 10*3/uL Absolute Geary # 0.5 0.0 - 0.8 10*3/uL Absolute [...] inpatient psychiatric admission, patient was admitted to [place] in stable condition. Patient is medically clear for psychiatric admission. ED Medication Orders (From admission, onward) Start Ordered Status Ordering Provider 06/04/205 06/04/202235 Lobtydn-Ezoutn-Maynz Pertussis (BOOSTRIX) injection 0.5 mL ONCE Last [...] the dictating provider for clarification. SELINA Nieves [employer] SELINA Nieves 06/05/20 0007 [employer] ED Provider Note Emergency Department Encounter [facility] EMERGENCY DEPT Patient: Alejandra Cedeno : [...] Rate and rhythm: sinus rhythm, 66 bpm [place]: within normal range Intervals: MN 122, QRS 88, QTc 430 Segments: no [...] are mis-transcribed.) Giles Rose MD Acute Care [facility] Giles Rose MD 06/05/20 0343 [employer] Ethanolon 06-04-2020 Ethanol Lvl <0.010 0 - 0.01 g/dL [place], [place] Comment on above: NOTE: This result is for medical treatment only. Analysis performed using non-forensic procedures. Ethanol Serum/Plasmaon 06-04 Ethanol-Serum/Plasma < 0.010 Normal 0.000-0.010 [facility] Comment on above: Result Comment: NOTE : This result is for medical treatment only. Analysis performed using non-forensic procedures. Performed By: #### A CET4, SAL33, ETOH4, QWAL, HEMDF, CMP3 #### [address] [address] HCG Qualitative, Serumon hCG Qual Negative m[IU]/mL [place], [place] Comment on above: Reference Range: NEG ATIVE Effective 08/12/2019, the reference interval for the qualitative test has been updated. This test detects hCG at concentrations of 10 mIU/L or greater in serum. Test Performed by [facility], [address] [place] [address] [place], [place] Hemogram (CBC) w/Auto Diffon 06-04-2020 Absolute Baso # 0.0 10*3/uL 0 - 0.2 10*3/uL [place] Absolute Neut # 4.6 10*3/uL 1.8 - 7 10*3/uL [place] Basophils/100 WBC (Bld) 0.7 % 0 - 2 % [place] Eosinophils (Bld) [#/Vol] 0.0 10*3/uL 0 - 0.5 10*3/uL [place], [place] Eosinophils/100 WBC (Bld) 0.5 % Low 1 - 6 % [place] Erythrocyte distribution width (RBC) [Ratio] 18.1 % High 11.5 - 14.5 % [place] Granulocytes/100 WBC (Bld) 68.4 % 40 - 80 % [place] Hematocrit (Bld) [Volume fraction] 40.0 % 35 - 47 % [place] Hemoglobin (Bld) [Mass/Vol] 12.9 g/dL 11.7 - 16 g/dL [place] Interpretation and review of laboratory results Abnormal [place], [place] Lymphocytes (Bld) [#/Vol] 1.6 10*3/uL 1 - 4.3 10*3/uL [place], [place] Lymphocytes/100 WBC (Bld) 23.2 % 20 - 40 % [place] MCH (RBC) [Entitic mass] 25.9 pg Low 26 - 34 pg [place] MCHC (RBC) [Mass/Vol] 32.2 % 32 - 36 % [place] MCV (RBC) [Entitic vol] 80.4 fL 79 - 98 fL [place], [place] Monocytes (Bld) [#/Vol] 0.5 10*3/uL 0 - 0.8 10*3/uL [place], [place] Monocytes/100 WBC (Bld) 7.2 % 2 - 10 % [place] Platelet mean volume (Bld) [Entitic vol] 8.7 fL 7.4 - 10.4 fL [place] Platelets (Bld) [#/Vol] 326 10*3/uL 140 - 440 10*3/uL [place] RBC (Bld) [#/Vol] 4.97 10*6/uL 3.8 - 5.2 10*6/uL [place] WBC (Bld) [#/Vol] 6.8 10*3/uL 3.6 - 10.7 10*3/uL [place] Test Performed by [facility] [facility], [address] [place] [address] [place] Hemogram w/ Autodiffon 06-04 Abs Baso Cnt 0.0 10*3/uL Normal 0.0-0.2 [facility] Comment on above: Performed By: #### A CET4, SAL33, ETOH4, QWAL, HEMDF, CMP3 #### [facility] [address] [address] Abs Neutrophile Cnt 4.6 10*3/uL Normal 1.8-7.0 [facility] Comment on above: Performed By: #### A CET4, SAL33, ETOH4, QWAL, HEMDF, CMP3 #### [address] [place], [place] Basophils/100 WBC (Bld) 0.7 % Normal 0.0-2.0 [facility] Comment on above: Performed By: #### A CET4, SAL33, ETOH4, QWAL, HEMDF, CMP3 #### [address] [address] [place] Eosinophils (Bld) [#/Vol] 0.0 10*3/uL Normal 0.0-0.5 [facility] Comment on above: Performed By: #### A CET4, SAL33, ETOH4, QWAL, HEMDF, CMP3 #### [address] [address] [place] Eosinophils/100 WBC (Bld) 0.5 % Low 1.0-6.0 [facility] Comment on above: Performed By: #### A CET4, SAL33, ETOH4, QWAL, HEMDF, CMP3 #### [address] [address] [place] Erythrocyte distribution width (RBC) [Ratio] 18.1 % High 11.5-14.5 [facility] Comment on above: Performed By: #### A CET4, SAL33, ETOH4, QWAL, HEMDF, CMP3 #### [address] Granulocytes/100 WBC (Bld) 68.4 % Normal 40.0-80.0 [facility] Comment on above: Performed By: #### A CET4, SAL33, ETOH4, QWAL, HEMDF, CMP3 #### [address] [address] [place] Hematocrit (Bld) [Volume fraction] 40.0 % Normal 35.0-47.0 [facility] Comment on above: Performed By: #### A CET4, SAL33, ETOH4, QWAL, HEMDF, CMP3 #### [address] [address] [place] [address] Hemoglobin (Bld) [Mass/Vol] 12.9 g/dL Normal 11.7-16.0 [facility] Comment on above: Performed By: #### A CET4, SAL33, ETOH4, QWAL, HEMDF, CMP3 #### [address] [address] [place] Lymphocytes (Bld) [#/Vol] 1.6 10*3/uL Normal 1.0-4.3 [facility] Comment on above: Performed By: #### A CET4, SAL33, ETOH4, QWAL, HEMDF, CMP3 #### [address] [address] [place] Lymphocytes/100 WBC (Bld) 23.2 % Normal 20.0-40.0 [facility] Comment on above: Performed By: #### A CET4, SAL33, ETOH4, QWAL, HEMDF, CMP3 #### [address] [address] [place] MCH (RBC) [Entitic mass] 25.9 pg Low 26.0-34.0 [facility] Comment on above: Performed By: #### A CET4, SAL33, ETOH4, QWAL, HEMDF, CMP3 #### [address] MCHC (RBC) [Mass/Vol] 32.2 % Normal 32.0-36.0 [facility] Comment on above: Performed By: #### A CET4, SAL33, ETOH4, QWAL, HEMDF, CMP3 #### [address] MCV (RBC) [Entitic vol] 80.4 fL Normal 79.0-98.0 [facility] Comment on above: Performed By: #### A CET4, SAL33, ETOH4, QWAL, HEMDF, CMP3 #### [address] Monocytes (Bld) [#/Vol] 0.5 10*3/uL Normal 0.0-0.8 [facility] Comment on above: Performed By: #### A CET4, SAL33, ETOH4, QWAL, HEMDF, CMP3 #### [address] [place], [place] Monocytes/100 WBC (Bld) 7.2 % Normal 2.0-10.0 [facility] Comment on above: Performed By: #### A CET4, SAL33, ETOH4, QWAL, HEMDF, CMP3 #### [place] [address], [place] Platelet mean volume (Bld) [Entitic vol] 8.7 fL Normal 7.4-10.4 [facility] Comment on above: Performed By: #### A CET4, SAL33, ETOH4, QWAL, HEMDF, CMP3 #### [place] [address], [place] Platelets (Bld) [#/Vol] 326 10*3/uL Normal 140-440 [facility] Comment on above: Performed By: #### A CET4, SAL33, ETOH4, QWAL, HEMDF, CMP3 #### [place] [address] [place], [place] RBC (Bld) [#/Vol] 4.97 10*6/uL Normal 3.80-5.20 [facility] Comment on above: Performed By: #### A CET4, SAL33, ETOH4, QWAL, HEMDF, CMP3 #### [place] [address] [address] [place], [place] WBC (Bld) [#/Vol] 6.8 10*3/uL Normal 3.6-10.7 [facility] Comment on above: Performed By: #### A CET4, SAL33, ETOH4, QWAL, HEMDF, CMP3 #### [address] Otheron 06-04-2020 Test Performed by [facility], [address] [place] [id number] [facility] [place], [place] Salicylateon 06-04-2020 Salicylate Lvl <1.0 0 - 20 mg/dL [facility] [place], [place] Test Performed by [facility], [address] [place] [id number] [facility] [place], [place] Salicylateson 06-04-2020 Salicylates < 1.0 Normal 0.0-20.0 [facility] Comment on above: Performed By: #### A CET4, SAL33, ETOH4, QWAL, HEMDF, CMP3 #### [facility] [address] [place] [address] Urine Drug Screenon 06-04-19 21 Amphetamines, urine [...] confirmation under separate order. Test Performed by [employer], [place] [address] [facility] [place], [place] GI FLUORO CHEST SNIFF TESTon [...] right hemidiaphragm. IMPRESSION: 1. Normal diaphragmatic excursion. Solution Professional: PSCB Transcribe Date/Time: Mar 19 2020 9:24A Dictated by : LISA KRAUS MD This examination was interpreted and the report reviewed and electronically signed by: LISA KRAUS MD on Mar 19 2020 9:27AM EST [id number] [facility] Vital Signs Date Time Vital Sign Value Performing Clinician Malia martinez 08-11-2024 08:39-0400 Body height 172.7 cm Christianne Carranza SPRING UP SUPERVISOR.CNM Work Phone: [facility] 08-11-2024 08:39-0400 Body mass index (BMI) [Ratio] 27.37 kg/m2 Christianne Carranza SPRING UP SUPERVISOR.CNM Work Phone: [facility] 08-11-2024 08:39-0400 Body weight 81.65 kg Christianne Carranza SPRING UP SUPERVISOR.CNM Work Phone: [facility] 08-11-2024 08:39-0400 Diastolic blood pressure 72 mm[Hg] Christianne Madrigalts SPRING UP SUPERVISOR.CNM Work Phone: [facility] 08-11-2024 08:39-0400 Systolic blood pressure 110 mm[Hg] Christianne Plotts SPRING UP SUPERVISOR.CNM Work Phone: [facility] 06-29-2024 09:06-0500 Body height 172.7 cm Mike Ceballos MD Work Phone: [facility] 06-29-2024 09:06-0500 Body mass index (BMI) [Ratio] 27.06 kg/m2 Mike Ceballos MD Work Phone: [facility] 01-29-2025 09:06-0500 Body weight 80.74 kg Mike Ceballos MD Work Phone: [facility] 06-29-2024 09:06-0500 Diastolic blood pressure 64 mm[Hg] Mike Ceballos MD Work Phone: [facility] 06-29-2024 09:06-0500 Systolic blood pressure 100 mm[Hg] Mike Ceballos MD Work Phone: [facility] 05-11-2024 10:17-0500 Body mass index (BMI) [Ratio] 26.51 kg/m2 Mike Ceballos MD Work Phone: [facility] 05-11-2024 10:17-0500 Body weight 76.2 kg Mike Ceballos MD Work Phone: [facility] 05-11-2024 10:17-0500 Diastolic blood pressure 74 mm[Hg] Mike Ceballos MD Work Phone: [facility] 05-11-2024 10:17-0500 Systolic blood pressure 106 mm[Hg] Mike Ceballos MD Work Phone: [facility] 11-25-2023 08:05-0400 Body mass index (BMI) [Ratio] 26.19 kg/m2 Mike Ceballos MD Work Phone: [facility] 11-25-2023 08:05-0400 Body weight 75.3 kg Mike Ceballos MD Work Phone: [facility] 11-25-2023 08:05-0400 Diastolic blood pressure 60 mm[Hg] Mike Ceballos MD Work Phone: [facility] 11-25-2023 08:05-0400 Systolic blood pressure 100 mm[Hg] Mike Ceballos MD Work Phone: [facility] 02-26-2023 14:00-0400 Body height 170.2 cm Kiki Milan SPRING UP SUPERVISOR.MEDICAL REPRESENTATIVE Work Phone: [facility] 02-26-2023 14:00-0400 Body weight 73.94 kg Kiki Bethalto SPRING UP SUPERVISOR.MEDICAL REPRESENTATIVE Work Phone: [facility] 02-26-2023 14:00-0400 Diastolic blood pressure 64 mm[Hg] Kiki Milan SPRING UP SUPERVISOR.MEDICAL REPRESENTATIVE Work Phone: [facility] 02-26-2023 14:00-0400 Systolic blood pressure 112 mm[Hg] Kiki Bethalto SPRING UP SUPERVISOR.MEDICAL REPRESENTATIVE Work Phone: [facility] 06-11-2020 05:45-0500 Body Temperature 97.7 [degF] [facility] [place] 06-11-2020 05:45-0500 BP Diastolic 74 mm[Hg] [facility] [place] 06-11-2020 05:45-0500 BP Systolic 117 mm[Hg] [facility] [place] 06-11-2020 05:45-0500 Pulse (Heart Rate) 67 /min [facility], [place] 06-11-2020 05:45-0500 Pulse Oximetry 98 % [facility] , [place] 06-11-2020 05:45-0500 Respiratory Rate 16 /min [facility], [place] 06-04-2020 20:24-0500 BMI (Body Mass Index) 21.79 kg/m2 [facility], [place] 06-04-2020 20:24-0500 Body weight 61.24 kg [place], [place] 06-04-2020 20:24-0500 Height 167.6 cm [place], [place] Encounters Encounter Date Encounter Type Care Provider Facility Start: 03-01-2025 End: 03-03-2025 ambulatory [facility] Facility:[facility] Start: 03-01-2025 End: 03-01-2025 ambulatory [facility] Start: 02-26-2025 ambulatory [facility] Start: 02-25-2025 End: 02-25-2025 ambulatory [facility] Facility:[facility] Start: 02-23-2025 ambulatory [facility] Start: 02-22-2025 End: 02-22-2025 ambulatory [facility] Start: 02-22-2025 End: 02-22-2025 ambulatory Sundeep Conde Facility:[facility] Start: 02-15-2025 End: 02-15-2025 ambulatory Sundeep HernandesChristos Facility:[facility] Start: 02-10-2025 End: 02-10-2025 ambulatory SHOAIB Jolynn [facility] Start: 02-09-2025 End: 02-09-2025 ambulatory Sundeep Conde [facility] Start: 02-07-2025 End: 02-07-2025 ambulatory NAVDEEP Giovani RACHELE [facility] Start: 02-01-2025 End: 02-01-2025 ambulatory Sundeep Almanzarman Facility:[facility] Start: 01-24-2025 End: 01-24-2025 ambulatory Sundeep HernandesChristos [facility] Start: 01-24-2025 End: 01-24-2025 ambulatory Sundeep Conde Facility:[facility] Start: 01-06-2025 End: 01-06-2025 ambulatory Sundeep Conde [facility] Start: 12-29-2024 End: 12-29-2024 ambulatory Sundeep HernandesChristos Facility:[facility] Start: 12-26-2024 End: 12-26-2024 ambulatory Sundeep HernandesChristos [facility] Start: 12-26-2024 End: 12-26-2024 ambulatory Sundeep HernandesChristos Facility:[facility] Start: 12-20-2024 End: 12-20-2024 ambulatory FLORY Dunham [facility] Start: 12-07-2024 End: 12-07-2024 ambulatory Sundeep Conde [facility] Start: 12-06-2024 End: 12-06-2024 Emergency department patient visit Sundeep Conde Facility:[facility] Start: 12-01-2024 End: 12-01-2024 ambulatory NAVDEEP Moore [facility] Start: 11-17-2024 End: 11-17-2024 ambulatory FREDDIE Neil [facility] Start: 11-09-2024 End: 11-09-2024 ambulatory Bertha Wood [facility] Start: 11-04-2024 End: 11-04-2024 ambulatory Angeal Vigil [facility] Start: 11-04-2024 End: 11-04-2024 ambulatory Sundeep Conde Facility:[facility] Start: 10-19-2024 End: 10-19-2024 ambulatory Tieradonell Mcfarland Facility:[facility] Start: 10-13-2024 End: 10-13-2024 ambulatory Bertha S Jolliff [facility] Start: 10-13-2024 End: 10-13-2024 ambulatory Bertha S Jolliff Facility:[facility] Start: 10-05-2024 End: 10-05-2024 ambulatory Tieradonlel Riosjamariony Facility:[facility] Start: 10-03-2024 End: 10-03-2024 ambulatory BERTHA S JOLLIFF [facility] Start: 09-22-2024 End: 09-22-2024 ambulatory MARTINE Mesha LLANES [facility] Start: 09-19-2024 End: 09-19-2024 ambulatory Tieradonell Riosmike Facility:[facility] Start: 09-14-2024 End: 09-14-2024 ambulatory Bertha S Jolliff [facility] Start: 08-31-2024 End: 08-31-2024 ambulatory Flory Ray Yungde Facility:[facility] Start: 08-24-2024 End: 08-24-2024 ambulatory Flory Vande Velde Facility:[facility] Start: 08-19-2024 End: 08-19-2024 ambulatory Bertha S Jolliff [facility] Start: 08-19-2024 End: 08-19-2024 ambulatory Bertha S Jolliff Facility:[facility] Start: 08-16-2024 End: 10-17-2024 Follow-up encounter Rosario Escalona MD Work Phone: OB/Gynecology Start: 08-15-2024 End: 08-15-2024 ambulatory CHRISTIANNE CARRANZA Facility:[facility] Start: 08-14-2024 End: 10-14-2024 Follow-up encounter Rosario Escalona MD Work Phone: OB/Gynecology Start: 08-13-2024 End: 08-13-2024 ambulatory CHRISTIANNE CARRANZA Facility:[facility] Start: 08-12-2024 End: 10-12-2024 Follow-up encounter Christianne Carranza APRN.CNM Work Phone: OB/Gynecology Start: 08-12-2024 End: 08-12-2024 Telephone encounter Christianne Kaitlinrosalia ROSARIO Work Phone: OB/Gynecology Comment on above: Transferred Care Start: 08-12-2024 ambulatory Minoo Arredondo Facility :[facility] Start: 08-11-2024 End: 08-11-2024 ambulatory CHRISTIANNE CARRANZA Facility:[facility] Start: 08-11-2024 End: 08-11-2024 Patient encounter [...] Start: 06-29-2024 End: 06-29-2024 ambulatory MIKE CEBALLOS Facility:[facility] Start: 06-29-2024 End: 06-29-2024 Patient encounter procedure Mike Ceballos MD Work Phone: OB/Gynecology Comment on above: Encounter for gyneco logical examination (general) (routine) without abnormal findings (Primary Dx); Attempting to conceive Start: 06-29-2024 End: 06-29-2024 Patient encounter status Mike Ceballos MD Work Phone: [facility] Start: 05-11-2024 End: 05-11-2024 ambulatory MIKE CEBALLOS Facility:[facility] Start: 05-11-2024 End: 05-11-2024 Patient encounter procedure Mike Ceballos MD Work Phone: OB/Gynecology Comment on above: Encounter for IUD re moval (Primary Dx) Start: 05-05-2024 End: 05-05-2024 ambulatory Mike Ceballos MD Work Phone: OB/Gynecology Comment on above: Bleeding irregularly Start: 01-18-2024 End: 01-18-2024 Telephone encounter Mike Ceballos MD Work Phone: OB/Gynecology Comment on above: Orders Start: 11-25-2023 End: 11-25-2023 ambulatory MIKE CEBALLOS Facility:[facility] Start: 11-25-2023 End: 11-25-2023 Patient encounter procedure Mike Ceballos MD Work Phone: OB/Gynecology Comment on above: Irregular menses (Pr imary Dx); Intolerance to cold Start: 02-26-2023 End: 02-26-2023 Patient encounter procedure Kiki Milansandra EVANSMEDICAL REPRESENTATIVE Work Phone: OB/Gynecology Comment on above: Secondary amenorrhea (Primary Dx) Start: 06-04-2020 Patient encounter procedure [place], [place] Procedures Date Procedure Procedure Detail Performing Clinician Start: 08-11-2024 Antibody screen MIKE CEBALLOS Comment on above: Order Comment: Speci men Type: BLOOD SPECIMENOrdering Facility: [facility] Address: [address] [place] [address] Performed By: #### T SPN ####CC MAIN BLOOD BANKCLIA [id number] [place] [address] [place] Start: 08-11-2024 Us uterus l imited 1/> fetuses Christianne Plotrosalia SPRING UP SUPERVISOR.CNM Work Phone: Start: 06-29-2024 UA DIP,URINE HCG [...] - Td) DTaP/Tdap/Td vaccine (5 - Td) [place], [place] Start: 01-04-2031 Urine microalbumin profile DTaP,Tdap,Td Vaccine (8 - Td or Tdap) [facility] Start: 06-08-2026 Screening for malign ant neoplasm of cervix Cervical Cancer Screening [facility] Start: 08-11-2025 GC (Gonorrhea) Scree james (18-24) GC (Gonorrhea) Screening (18-24) [facility] Start: 08-11-2025 Screening for Chlamy jennifer trachomatis Chlamydia Screening (18) [facility] Start: 07-03-2025 End: 07-03-2025 Patient encounter procedure 07/03/2025 9:10 AM EST Office Visit OB/Gynecology [address] [place] [address] Mike Ceballos MD [address] [place] [address] Annual OB/Gynecology Comment on above: Annual Start: 02-09-2025 RSV Vaccine (1 - Ris k 1-dose series) RSV Vaccine (1 - Risk 1-dose series) [facility] Start: 01-30-2025 Influenza vaccination Influenz a Vaccine (Season Ended) [facility] Start: 11-17-2024 End: 11-17-2024 Patient encounter procedure 11/17/2024 9:00 AM EDT Routine Office Visit Maternal Medicine [address] [place] [id number] Anatomy/OB Maternal Medicine Comment on above: Anatomy/OB Start: 09-08-2024 End: 09-08-2024 Patient encounter procedure 09/08/2024 10:20 AM EDT Routine Office Visit OB/Gynecology [address] [place] [address] Dell Alonso MD [address] [place] [address] 1st OB - LMP 06/30/2024 OB/Gynecology Comment on above: 1st OB - LMP 06/30/19 Start: 08-25-2024 End: 08-25-2024 Patient encounter procedure 08/25/2024 8:30 AM EDT Routine Office Visit OB/Gynecology [address] [place] [id number] Dating OB/Gynecology Comment on above: Dating Start: 08-11-2024 End: 11-10-2024 ANEMIA REFLEX PANEL [facility] Work Phone: Comment on above: Expected: 08/11/2024 , Expires: 11/10/2024 Start: 08-11-2024 End: 11-10-2024 Hepatitis C virus Ab [Presence] in Serum [facility] Comment on above: Expected: 08/11/2024 , Expires: 11/10/2024 Start: 08-11-2024 End: 08-11-2025 OBSTETRIC ULTRASOUND WHI OBSTETRIC ULTRASOUND WHI Anc Imaging Routine with uncertain dates, antepartum Expected: 08/11/2024, Expires: 08/11/2025 [facility] Comment on above: Expected: 08/11/2024 , Expires: 08/11/2025 Start: 08-11-2024 End: 11-10-2024 RUBELLA IGG ANTIBODY [facility] Comment on above: Expected: 08/11/2024 , Expires: 11/10/2024 Start: 06-29-2024 End: 06-29-2024 Patient encounter procedure 06/29/2024 9:10 AM EST Office Visit OB/Gynecology [address] [place] [address] Mike Ceballos MD [address] [place] [address] Annual OB/Gynecology Comment on above: Annual Start: 06-08-2024 GC (Gonorrhea) Scree james (18-24) GC (Gonorrhea) Screening (18-24) [facility] Start: 06-08-2024 Screening for Chlamy jennifer trachomatis Chlamydia Screening () [facility] Start: 05-11-2024 End: 05-11-2024 Patient encounter procedure 05/11/2024 10:30 AM EST Office Visit OB/Gynecology [address] [place], [place] [id number] Mike Ceballos MD [address] [place] [address] IUD REMOVAL OB/Gynecology Comment on above: IUD REMOVAL Start: 02-24-2024 End: 02-24-2024 Patient encounter procedure 02/24/2024 8:00 AM EDT Office Visit OB/Gynecology [address] [place] [address] Mike Ceballos MD [address] [place] [address] IUD Removal OB/Gynecology Comment on above: IUD Removal Start: 01-31-2024 Covid-19 Vaccine ( season) Covid-19 Vaccine ( season) [facility] Start: 01-31-2024 Influenza vaccination [facility] Start: 11-25-2023 End: 02-24-2024 Thyrotropin [Units/volume] in Serum or Plasma [facility] Work Phone: Comment on above: Expected: 11/25/2023 , Expires: 02/24/2024 Start: 01-30-2023 Covid-19 Vaccine ( season) Covid-19 Vaccine ( season) [facility] Start: 01-30-2023 Influenza vaccination Influenza Vacc ine (#1) [facility] Start: 2022 Pap Testing Pap Testing [facility] Start: 06-01-2022 Depression Assessment Depression Ass essment [facility] Start: 2020 Urine microalbumin profile DTaP,Tdap,Td Vaccine (1 - Tdap) [facility] Start: 01-31-2020 Influenza vaccination Flu vaccine (# 1) [facility] [place], [place] Start: 08-21-2019 Chlamydia Screening (18-24) Chlamydia Screening (18-24) [facility] Start: 08-21-2019 GC (Gonorrhea) Scree james (18-24) GC (Gonorrhea) Screening (18-24) [facility] Start: 08-21-2019 Hepatitis C Screening Hepatitis C [facility] Start: 08-21-2019 Hepatitis C screening Hepatitis C [facility] Start: 08-21-2019 HIV Screening HIV Screening [facility] Start: 2017 Meningococcal B Vacc ine (1 of 2 - Standard) Meningococcal B Vaccine (1 of 2 - Standard) [facility] Start: 2017 Meningococcal B Vacc ine: Consider Based On Risk (1 of 2 - Patient Seeks Protection) Meningococcal B Vaccine: Consider Based On Risk (1 of 2 - Patient Seeks Protection) [facility] Start: 2017 Screening for Chlamy jennifer trachomatis Chlamydia screen [place], [place] Start: 2016 HIV screening HIV screen [place], [place] Start: 08-21-2015 Peds To Adult Transi tion Annual Assessment Peds To Adult Transition Annual Assessment [facility] Start: 2013 Peds To Adult Transi tion Initial Discussion Peds To Adult Transition Initial Discussion [facility] Start: 2010 HPV Vaccine (1 - 2-d ose series) HPV Vaccine (1 - 2-dose series) [facility] Start: 05-23-2002 Hepatitis B vaccine (3 of 3 - 3-dose primary series) Hepatitis B vaccine (3 of 3 - 3-dose primary series) [place], [place] Start: 02-20-2002 Covid-19 Vaccine (#1) Covid-19 Vacci ne (#1) [facility] Start: 2001 Hepatitis B Vaccine (1 of 3 - 3-dose series) Hepatitis B Vaccine (1 of 3 - 3-dose series) [facility] Start: 2001 Hepatitis C screening Hepatitis C johnson decker [place], [place] Bacteria identified in Urine by Culture BACTERIAL CULTURE, URINE Microbiology Routine with uncertain dates, antepartum 08/11/2024 9:34 AM EDT [facility] Chlamydia trachomatis+Neisseria gonorrhoeae DNA [Presence] in Unspecified specimen by SANTY with probe detection GONORRHEA/CHLAMYDIA NAAT Lab Routine with uncertain dates, antepartum 08/11/2024 9:34 AM EDT [facility] End: 09-09-2024 Choriogonadotropin.beta subunit [Units/volume] in Serum or Plasma HCG QUANTITATIVE Lab Routine with uncertain dates, antepartum 2x per week for 8 Occurrences starting 08/11/2024 until 09/09/2024, 1 completed [facility] Comment on above: 2x per week for 8 Oc currences starting 08/11/2024 until 09/09/2024, 1 completed Removal intrauterine device iud REMOVE INTRAUTERINE DEVICE Procedures Routine Encounter for IUD removal Ordered: 01/18/2024 [facility] Work Phone: Comment on above: Ordered: 01/18/2024 Removal intrauterine device iud REMOVE INTRAUTERINE DEVICE Procedures Routine Encounter for IUD removal Ordered: 05/11/2024 [facility] Work Phone: Comment on above: Ordered: 05/11/2024 TRICHOMONAS VAGINALI S NAAT TRICHOMONAS VAGINALIS NAAT Lab Routine with uncertain dates, antepartum 08/11/2024 9:34 AM EDT [facility] Immunizations Immunization Date Immunization Notes Care Provider Duc patel 06-04-2020 tetanus toxoid, reduced diphtheria toxoid, and acellular pertussis vaccine, [place], [place] 03-07-2019 influenza virus vaccine, unspecified formulation Kiki Milan SPRING UP SUPERVISOR.MEDICAL REPRESENTATIVE Work Phone: [facility] NEGATED: Highlighted row has not occurred!07-23-2020 influenza, injectable, quadrivalent, preservative free Kiki Bethalto SPRING UP SUPERVISOR.MEDICAL REPRESENTATIVE Work Phone: [facility] Comment on above: Deferred: Patient Re fused - Not in patient's med bin at time of discharge & patient did not want to wait for it to come from pharmacy Payers Date Payer Category Payer Self-pay 2024 [facility] [id number] 2024 Unknown [id number] 2023 Unknown [id number] 2021 Unknown [id number] [id number] .[id number] 2020 Unknown [employer] OF [facility] [employer] [facility] [id number] 2020-Present [phone] [address] [place] [address] [id number] .7.3.396051.315 2001 Unknown [id number] 2.16.840.1.530515.3.579.2 .479 2001 Unknown [id number] 2.16840.1.918279.3.579.2 .479 2001 Unknown [id number] 2.16840.1.421960.3.579.2 .479 2001 Unknown [id number] 2.16.840.1.711510.3.579.2 .479 2001 Unknown [id number] 2.16840.1.801877.3.579.2 .479 2001 Unknown [id number] 2.16.840.1.552881.3.579.2 .479 2001 Unknown [id number] 2.16.840.1.443339.3.579.2 .479 2001 Unknown [id number] 2.16.840.1.421280.3.579.2 .479 Unknown [id number] 2.16.840.1.274489.3.579.2 .462 Unknown [id number] 2.16.840.1.378453.3.579.2 .462 Unknown [id number] 2.16.840.1.864177.3.579.2 .462 Unknown [id number] 2.16.840.1.720059.3.579.2 .462 Unknown [id number] 2.16.840.1.317923.3.579.2 .462 Unknown [id number] 2.16.840.1.285784.3.579.2 .462 Unknown [id number] 2.16.840.1.831697.3.579.2 .462 Unknown [id number] 2.16.840.1.486075.3.579.2 .462 Unknown [id number] 2.840.1.868322.3.579.2 .462 Unknown [id number] 2.840.1.442873.3.579.2 .462 Unknown [id number] 2.840.1.537058.3.579.2 .462 Unknown [id number] 2.840.1.705367.3.579.2 .462 Unknown [id number] 2.16.840.1.665146.3.579.2 .462 Unknown [id number] 2.16.840.1.689269.3.579.2 .462 Unknown [id number] 2.840.1.950978.3.579.2 .462 Unknown [id number] 2.840.1.444250.3.579.2 .462 Unknown [id number] 2.840.1.862275.3.579.2 .462 Unknown [id number] 2.16.840.1.138201.3.579.2 .462 Unknown [id number] 2.16.840.1.550363.3.579.2 .462 Unknown [id number] 2.16.840.1.648329.3.579.2 .462 Unknown [id number] 2.16840.1.514305.3.579.2 .462 Unknown [id number] 2.16.840.1.171262.3.579.2 .462 Unknown [id number] 2.16.840.1.126158.3.579.2 .462 Unknown [id number] 2.16.840.1.857302.3.579.2 .462 Unknown [id number] 2.16.840.1.766248.3.579.2 .462 Unknown [id number] 2.16.840.1.652727.3.579.2 .462 Unknown [id number] 2.16.840.1.663703.3.579.2 .462 Unknown [id number] 2.16.840.1.743388.3.579.2 .462 Unknown [id number] 2.16.840.1.985623.3.579.2 .462 Unknown [id number] 2.16.840.1.257543.3.579.2 .462 Unknown [id number] 2.16.840.1.149584.3.579.2 .462 Unknown [id number] 2.16.840.1.594225.3.579.2 .462 Unknown [id number] 2.16.840.1.887429.3.579.2 .462 Unknown [id number] 2.16.840.1.359164.3.579.2 .462 Unknown [id number] 2.16.840.1.818509.3.579.2 .462 Unknown [id number] 2.16.840.1.197968.3.579.2 .462 Social History Date Type Detail Facility Start: 06-04-2020 Tobacco smoking status NHIS Never smoker [place] Start: 06-04-2020 End: 08-11-2024 Tobacco use and exposure Never used [place] Start: 06-04-2020 Alcohol intake Lifetime non-d tone (finding) [place] Start: 06-04-2020 History SDOH Alcohol Frequency 1 [facility]lect[facility] ANGEL LUIS MARIN Start: 2001 [facility] Start: 02-26-2023 End: 08-11-2024 Tobacco smoking status NHIS Ex-smoker [facility] History of tobacco use Current smoker [facility] History of tobacco use Cigarette Smoker [facility] Start: 02-26-2023 End: 05-11-2024 Alcohol intake Current drinker of alcohol (finding) [facility] Start: 02-26-2023 End: 06-08-2023 History of Social function [facility] [facility] Start: 02-26-2023 End: 06-08-2023 Tobacco use panel [facility] National Score (1-100), lower number is lower risk 48 [facility] Start: 06-08-2023 Education 13 [facility] Start: 06-29-2024 End: 08-12-2024 Alcoholic beverage intake Ex-drinker (finding) [facility] Start: 07-14-2024 [facility] NEGATED: Highlighted rowStart: NINF History of tobacco use Passive smoker [facility] Functional Status Date Assessment Result Facility 07-23-2020 Are you deaf, or do you have serious difficulty hearing No 07/23/2020 4:53 PM Saira Hi RN No [facility] 07-23-2020 Are you blind, or do you have serious difficulty seeing, even when wearing glasses No 07/23/2020 4:53 PM Saira Hi RN No [facility] 07-23-2020 Do you have serious difficulty walking or climbing stairs No 07/23/2020 4:53 PM Saira Hi RN No [facility] 07-23-2020 Do you have difficul ty dressing or bathing No 07/23/2020 4:53 PM Saira Hi RN No [facility] 07-23-2020 Because of a physica l, mental, or emotional condition, do you have difficulty doing errands alone such as visiting a physician's office or shopping No 07/23/2020 4:53 PM Saira Hi RN No [facility] Mental Status Date Assessment Result Facility 07-23-2020 Because of a physica l, mental, or emotional condition, do you have serious difficulty concentrating, remembering, or making decisions No 07/23/2020 4:53 PM Saira Hi, ULISES No [facility] Clinical Notes 02-26-2023 to 02-10-2025 Telephone Encounter - Dasha Welsh RN - 08/12/2024 10:39 AM EDTTelephone Encounter - Dasha Welsh RN - 08/12/2024 10:39 AM EDTPatient Chacho Pugh MA - 08/11/2024 8:28 AM EDT Note Date & Type Note Facility 02-10-2025 Note [facility] pital M CONSULTATION Referring Provider Navdeep Jeffrey, CNM [address] [facility] [address] [place] [address] SUBJECTIVE Alejandra Kiran is a 24 y.o. [...] History: Diagnosis Date Anorexia sees therapist in [place] Kimberly Burr, was tx in hosptial time 2 Anxiety Bipolar disorder Diagnosed in 2020, hx of SI with hospitalization, [facility] [place] Depression Gestational diabetes mellitus (GDM) TOS (thoracic [...] reduce the ris (more content not included)... [facility] 09-22-2024 Note Consultation has jose [...] counseling and care are largely handled at [place] [address] in [place] but she also sees a separate counselor, [place] for therapy s/p 2 incidences of hospitalization for anorexia and for episode of suicidal ideation. She states she is stable and under control. Alejandra had a cervical rib removed for thoracic outlet syndrome. She is a twin from an IVF . She desires NIPT/Carrier screening. Imagin. Nava intrauterine with cardiac activity present at 10w 6d with an HERBIE of 04/14/2025. 2. Moro rump length measurement are consistent with supplied dating. 3. Anatomic detail is extremely limited at this early gestational age. No gross abnormalities were noted on this examination. 4. Normal uterus and adnexa. 5. Absence of free fluid in the pelvis. Please refer to the ultrasound report for full details. [facility] Counseling Summary I reviewed the [...] topics are listed above. Martine Llanes MD [facility] Physician, Maternal- Medicine [facility] 08-12-2024 Telephone encounter Note Patient transferred care for remainder of . She was seen in our office for 1 visit. Please bill all visits. Dasha Welsh RN [facility] 08-12-2024 Miscellaneous Notes Patient transferred care for remainder of . She was seen in our office for 1 visit. Please bill all visits. Dasha Welsh RN documented in this encounter [facility] 08-11-2024 Instructions Chacho Redman MA - 08/11/2024 8:31 AM EDT Please select the following link to access the [facility] Your Guide to a Healthy . [email or web address] documented in this encounter [facility] 08-11-2024 Note HNO ID: [id number] Author: CHACHO REDMAN MA Service: ? Author Type: Crystallography Teacher Type: Progress Notes Filed: 08/11/2024 15:56 Note Text: OB point of care ultrasound was performed. See imaging tab for details. Chacho Redman MA [facility] 08-11-2024 History of Presen t illness Narrative OB point of care ultrasound was performed. See imaging tab for details. Chacho Redman MA *Patient is a twin but mother had IVF *Pt has a history of depression/anxiety/Bipoar 2 diagnosed in [address] Frannie Hudson at [place] [address] in [place]. She states that she has had 2 inpatient mental hospitalizations for this the last 1 being in 2020. She states she last had suicidal thoughts in 2020. Discussed increased risks of depression during and and importance of reporting the development or worsening of symptoms should they occur. *She has a history of anorexia and sees a therapist at [facility] in [facility]She states she has had inpatient treatment [...] the following (please check all that apply)? 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 As applicable, any other physician, advance practice provider, medical student, or other health professional student that will be observing or involved in the sensitive examination for educational or training purposes was discussed with the Patient or Authorized Architectural Engineer. The Patient or Authorized Architectural Engineer has agreed to proceed with the sensitive [...] prhanane Carranza APRN.CNM documented in this encounter [facility] 08-09-2024 Note HNO ID: [id number] Author: CHRISTIANNE CARRANZA APRN.CNM Service: ? Author Type: Hand Shaker Type: Progress Notes Filed: 08/11/2024 15:56 Note Text: *Patient is a twin but mother had IVF *Pt has a history of depression/anxiety/Bipoar 2 diagnosed in [address] Frannie Hudson at [place] [address] in [place]. She states that she has had 2 inpatient mental hospitalizations for this the last 1 being in 2020. She states she last had suicidal thoughts in 2020. Discussed increased risks of depression during and and importance of reporting the development or worsening of symptoms should they occur. *She has a history of anorexia and sees a therapist at [facility] in [facility].-She states she has had inpatient treatment [...] the following (please check all that apply)? Hand Shaker care Social History: Do you have any [...] Partner: Name: Asa Plant Age: 24 Occupation: [employer] transportation engineering technician Gender: Male PAST MEDICAL HISTORY Diagnosis Date 2020 Due to anorexia nervosa Anorexia nervosa Anxiety Bipolar 1 disorder (HCC) Depression Scoliosis TOS (thoracic outlet syndrome) bilateral Trauma Urticaria PAST SURGICAL HISTORY Procedure Laterality Date DANDC, DIAG AND/OR THERAPEUTIC EXCISION FIRST AND/OR CERVICAL RIB Right 2015 EXTRACTION (more content not included)... [facility] 08-09-2024 Telephone encounter Note Patient called back. Can call her around 10:30 or 11:00 today. Thank you. [facility] 08-09-2024 Miscellaneous Notes Patient called back. Can call her around 10:30 or 11:00 today. Thank you. Left message for patient to return phone call to complete nurse intake questions for her upcoming appointment. Patient has an appointment with Christianne Carranza for NOB appointment. I am here today if she calls back or transfer to [facility] documented in this encounter [facility] 08-09-2024 Telephone encounter Note Left message for patient to return phone call to complete nurse intake questions for her upcoming appointment. Patient has an appointment with Christianne Carranza for NOB appointment. I am here today if she calls back or transfer to [facility] 06-29-2024 Note HNO ID: [id number] Author: MIKE CEBALLOS MD Service: ? Author Type: Physician Type: Progress Notes Filed: 07/01/2024 10:13 Note Text: Ice Rink Attendant offered: Patient accepts, visit chaperoned by Erica [...] L0 SAB0 IAB0 Ectopic0 Multiple0 Live Births0 Hospital Medical Assistant History LMP: 06/01/2024, Having periods Age at Menarche: 13 Age at First : Age at Menopause: Hospital Medical Assistant History Comments: Sexual Activity: Yes; Male Contraception: [...] discussed with the Patient or Patient's Authorized Architectural Engineer. As applicable, any other physician, advance practice provider, medical student, or other health professional student that will be observing or involved in the sensitive examination for educational or training purposes was discussed with the Patient or Authorized Architectural Engineer. The Patient or Authorized Architectural Engineer has agreed to proceed with the sensitive [...] external genitalia normal, normal Bartholin's glands, urethra, [place]'s glands, no vulvar lesions, no cervical lesions, [...] or sooner as needed Mike Ceballos MD [facility] 06-29-2024 History of Presen t illness Narrative Ice Rink Attendant offered: Patient accepts, visit chaperoned by Erica [...] L0 SAB0 IAB0 Ectopic0 Multiple0 Live Births0 Hospital Medical Assistant History LMP: 06/01/2024, Having periods Age at Menarche: 13 Age at First : Age at Menopause: Hospital Medical Assistant History Comments: Sexual Activity: Yes; Male Contraception: [...] discussed with the Patient or Patient's Authorized Architectural Engineer. As applicable, any other physician, advance practice provider, medical student, or other health professional student that will be observing or involved in the sensitive examination for educational or training purposes was discussed with the Patient or Authorized Architectural Engineer. The Patient or Authorized Architectural Engineer has agreed to proceed with the sensitive [...] external genitalia normal, normal Bartholin's glands, urethra, [place]'s glands, no vulvar lesions, no cervical lesions, [...] Mike Ceballos MD documented in this encounter [facility] 05-11-2024 Note HNO ID: [id number] Author: MIKE CEBALLOS MD Service: ? Author Type: Physician Type: Progress Notes Filed: 05/11/2024 10:51 Note Text: Ice Rink Attendant offered: Patient accepts, visit chaperoned by Erica [...] not within 12 months. Mike Ceballos MD [facility] 05-11-2024 History of Presen t illness Narrative Ice Rink Attendant offered: Patient accepts, visit chaperoned by Erica [...] for evaluation if not within 12 months. Mkie Ceballos MD documented in this encounter [facility] 05-05-2024 Telephone encounter Note Patient called. She is not having any pain. Her appointment on 05/18 is to remove the IUD. Offered a Thursday appointment with AT. Patient declined. Scheduled on 05/11. Patient to call if she chooses to come in for a sooner appointment or with another provider. Flory Manning RN [facility] 05-05-2024 Miscellaneous Notes Patient called. She [...] Julia Chapa RN documented in this encounter [facility] 05-05-2024 Telephone encounter Note Noe placed 02/26/2023. Please see Pt's mychart message. Julia Chapa RN [facility] 01-18-2024 Telephone encounter Note Patient called and appointment scheduled. Hellen Campoverde RN [facility] 01-18-2024 Miscellaneous Notes Patient called and appointment scheduled. Hellen Campoverde RN filed Please file order in AT absence. Will call Pt to get scheduled once order is filed. Julia Chapa RN Patient is calling requesting to have IUD Liletta removed and would like this with Ayo Ceballos. Please advise patient once order is placed documented in this encounter [facility] 01-18-2024 Telephone encounter Note filed [facility] Work Phone: 01-18-2024 Telephone encounter Note Please file order in AT absence. Will call Pt to get scheduled once order is filed. Julia Chapa RN [facility] 01-18-2024 Telephone encounter Note Patient is calling requesting to have IUD Liletta removed and would like this with Ayo Ceballos. Please advise patient once order is placed [facility] 11-25-2023 Note HNO ID: [id number] Author: ERICA BEVERLY MA Service: ? Author Type: Reed Repairer Type: Progress Notes Filed: 11/25/2023 09:37 Note Text: . [facility] 11-25-2023 History of Presen t illness Narrative . Alejandra Kiran is a 23 year old female who presents for problem visit wishing to discuss fertility related to her progestin IUD, Liletta and parental hx of IVF. Reports irregular menses related to anorexia [id number] IUD place 2020. Menarche ~ 13 yo and regular until weight loss to 106. Now 160, 5'8. Monthly/cyclic discharge on underwear.. HPI: as above and planning in ~ 12 mo, always feels cold OB History T0 L0 SAB0 IAB0 Ectopic0 Multiple0 Live Births0 Hospital Medical Assistant History LMP: 01/15/2023 (Exact Date), IUD Age at Menarche: Age at First : Age at Menopause: Hospital Medical Assistant History Comments: Sexual Activity: Yes; Male Contraception: [...] external genitalia normal, normal Bartholin's glands, urethra, [place]'s glands, no vulvar lesions, no cervical lesions, good vaginal support, physiologic discharge present, normal appearing perineal body and perianal region BIMANUAL: uterus normal size, shape and consistency, no adnexal masses, and non-tender NEURO: alert and oriented x3,exam grossly non-focal EXTREMITIES: normal ASSESSMENT AND PLAN: 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 TSH Prepregnacy discussion, start PNVs Lengthy conversation >45 min Mike Ceballos MD documented in this encounter [facility] 11-25-2023 Note HNO ID: [id number] Author: MIKE CEBALLOS MD Service: ? Author Type: Physician Type: Progress Notes Filed: 11/25/2023 09:37 Note Text: Alejandra Kiran is a 23 year old female who presents for problem visit wishing to discuss fertility related to her progestin IUD, Liletta and parental hx of IVF. Reports irregular menses related to anorexia [id number]UD [address] 2020. Menarche ~ 13 yo and regular until weight loss to 106. Now 160, 5'8. Monthly/cyclic discharge on underwear.. HPI: as above and planning in ~ 12 mo, always feels cold OB History T0 L0 SAB0 IAB0 Ectopic0 Multiple0 Live Births0 Hospital Medical Assistant History LMP: 01/15/2023 (Exact Date), IUD Age at Menarche: Age at First : Age at Menopause: Hospital Medical Assistant History Comments: Sexual Activity: Yes; Male Contraception: [...] external genitalia normal, normal Bartholin's glands, urethra, [place]'s glands, no vulvar lesions, no cervical lesions, good vaginal support, physiologic discharge present, normal appearing perineal body and perianal region BIMANUAL: uterus normal size, shape and consistency, no adnexal masses, and non-tender NEURO: alert and oriented x3,exam grossly non-focal EXTREMITIES: normal ASSESSMENT AND PLAN: 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 TSH Prepregnacy discussion, start PNVs Lengthy conversation >45 min Mike Ceballos MD [facility] 02-26-2023 History of Presen t illness Narrative [...] OB History No obstetric history on file. Hospital Medical Assistant History LMP: 01/15/2023 (Exact Date), IUD Age at Menarche: Age at First : Age at Menopause: Hospital Medical Assistant History Comments: Sexual Activity: Yes; Male Contraception: [...] 3 - Low documented in this encounter [facility] Evaluation note Diagnosis Secondary amenorrhea- Primary Absence of menstruation [facility] Diagnosis Irregular menses- Primary Irregular menstrual cycle Intolerance to cold Other general symptoms [facility] Diagnosis Encounter for IUD removal- Primary Encounter for removal of intrauterine contraceptive device documented in this encounter [facility] note* Diagnosis Encounter for IUD removal- Primary Encounter for removal of intrauterine contraceptive device documented in this encounter [facility] note* Diagnosis Encounter for gynecological examination (general) (routine) without abnormal findings- Primary Attempting to conceive documented in this encounter [facility] note* Diagnosis with uncertain dates, antepartum- Primary state, incidental 6 weeks gestation of state, incidental Threatened miscarriage Threatened , unspecified as to episode of care Bipolar 2 disorder (HCC) Other bipolar disorders Anorexia nervosa Anxiety Anxiety state, unspecified Depression, unspecified depression type Cholinergic urticaria Encounter for supervision of high risk in first trimester, antepartum documented in this encounter [facility] for referral (narrative)* Outpatient Procedure (Routine) - Pending Review Specialty Diagnoses / Procedures Referred By Jose Roberto rowley Referred To Contact [facility] Diagnoses Encounter for IUD removal Procedures REMOVE INTRAUTERINE DEVICE REMOVE INTRAUTERINE DEVICE Dell Alonso MD [address] [place] [address] [facility] [place] [address] Referral ID Status Reason Start Date Expiration Date Visits Requested Visits Authorized [id number] Pending Review Auto-Generat ed Referral 01/18/2024 01/17/2025 1 1 [facility] for referral (narrative)* Outpatient Procedure (Routine) - New Request Specialty Diagnoses / Procedures Referred By Jose Roberto rowley Referred To Contact [facility] Diagnoses Encounter for IUD removal Procedures REMOVE INTRAUTERINE DEVICE REMOVE INTRAUTERINE DEVICE Mike Ceballos MD [address] [place] [address] [facility] [place] [address] Referral ID Status Reason Start Date Expiration Date Visits Requested Visits Authorized [id number] New Request Auto-Generat ed Referral 05/11/2025 1 1 [facility] Summary Purpose Family History No Family History Records FoundNo Family History Records FoundNo Family History Records FoundNo Family History Records FoundNo Family History Records Found Advance Directives No Advanced Directives Records FoundLatest Code Status on File Code Status Date Activated Date Inactivated Comments Full Code 06/05/2020 5:11 PM Additional Source Comments INFORMATION SOURCE (unrecogn ized section and content) DATE CREATED AUTHOR 03/19/2020 [facility] DATE CREATED AUTHOR AUTHOR'S ORGANIZ ATION 06/12/2020 [facility] DATE CREATED AUTHOR AUTHOR'S ORGANIZ ATION 08/25/2024 [facility] DATE CREATED AUTHOR AUTHOR'S ORGANIZ ATION 02/12/2025 [facility] DATE CREATED AUTHOR AUTHOR'S ORGANIZ ATION 03/04/2025 [facility] Source Comments (unrecognize d section and content) In the event this informatio n is protected by the Federal Confidentiality of Alcohol and Drug Abuse Patient Records regulations: The Federal rules restrict any use of the information to criminally investigate or prosecute any alcohol or drug abuse patient.[facility] the event this information is protected by the Federal Confidentiality of Alcohol and Drug Abuse Patient Records regulations: The Federal rules restrict any use of the information to criminally investigate or prosecute any alcohol or drug abuse patient.[facility] the event this information is protected by the Federal Confidentiality of Alcohol and Drug Abuse Patient Records regulations: The Federal rules restrict any use of the information to criminally investigate or prosecute any alcohol or drug abuse patient.[facility] the event this information is protected by the Federal Confidentiality of Alcohol and Drug Abuse Patient Records regulations: The Federal rules restrict any use of the information to criminally investigate or prosecute any alcohol or drug abuse patient.[facility] the event this information is protected by the Federal Confidentiality of Alcohol and Drug Abuse Patient Records regulations: The Federal rules restrict any use of the information to criminally investigate or prosecute any alcohol or drug abuse patient.[facility] the event this information is protected by the Federal Confidentiality of Alcohol and Drug Abuse Patient Records regulations: The Federal rules restrict any use of the information to criminally investigate or prosecute any alcohol or drug abuse patient.[facility] the event this information is protected by the Federal Confidentiality of Alcohol and Drug Abuse Patient Records regulations: The Federal rules restrict any use of the information to criminally investigate or prosecute any alcohol or drug abuse patient.[facility] the event this information is protected by the Federal Confidentiality of Alcohol and Drug Abuse Patient Records regulations: The Federal rules restrict any use of the information to criminally investigate or prosecute any alcohol or drug abuse patient.[facility] the event this information is protected by the Federal Confidentiality of Alcohol and Drug Abuse Patient Records regulations: The Federal rules restrict any use of the information to criminally investigate or prosecute any alcohol or drug abuse patient.[facility] the event this information is protected by the Federal Confidentiality of Alcohol and Drug Abuse Patient Records regulations: The Federal rules restrict any use of the information to criminally investigate or prosecute any alcohol or drug abuse patient.[facility] the event this information is protected by the Federal Confidentiality of Alcohol and Drug Abuse Patient Records regulations: The Federal rules restrict any use of the information to criminally investigate or prosecute any alcohol or drug abuse patient.[facility] the event this information is protected by the Federal Confidentiality of Alcohol and Drug Abuse Patient Records regulations: The Federal rules restrict any use of the information to criminally investigate or prosecute any alcohol or drug abuse patient.[facility] Reason for Visit (unrecogniz ed section and content) Reason Comments Establish Care Having sym ptoms- mood swings- missed menses- heartburn- cramps- bloating Reason Comments Discussion Reason Comments Orders Reason Onset Date Comments IUD Removal 05/11/2024 Specialty Diagnoses / Procedures Referred By Jose Roberto rowley Referred To Contact [facility] Diagnoses Encounter for IUD removal Encounter for insertion of intrauterine contraceptive device Procedures REMOVE INTRAUTERINE DEVICE REMOVE INTRAUTERINE DEVICE LEVONORGESTREL IU 52MG 3 YR INSERT INTRAUTERINE DEVICE Dell Alonso MD [address] [place] [address] [facility] [address] [place] [address] Referral ID Status Reason Start Date Expiration Date Visits Requested Visits Authorized [id number] Authorized Auto-Generat ed Referral 01/19/2024 05/31/2024 2 2 Reason Comments Well Woman Reason Comments Initial OB Visit Reason Comments Transferred Care Reason Comments Appointment Care Teams (unrecognized sec tion and content) 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 Relationship Specialty Start Date End Date Bertha Wood [address] [place], [place] [id number] PCP - General Family Medicine 06/28/20 Marie Carrillo DO Orthopedics 01/29/16 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 Relationship Specialty Start Date End Date Bertha Wood [address] [place] [address] PCP - General Family Medicine 06/28/20 Marie Carrillo DO Orthopedics 01/29/16 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 Relationship Specialty Start Date End Date Bertha Wood [address] [place] [address] PCP - General Family Medicine 06/28/20 Marie Carrillo DO Orthopedics 01/29/16 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 Relationship Specialty Start Date End Date Bertha Wood [address] [place] [address] PCP - General Family Medicine 06/28/20 Marie Carrillo DO Orthopedics 01/29/16 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 Relationship Specialty Start Date End Date Bertha Wood [address] [place] [address] PCP - General Family Medicine 06/28/20 Marie Carrillo DO Orthopedics 01/29/16 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 Relationship Specialty Start Date End Date Bertha Wood [address] [place] [address] PCP - General Family Medicine 06/28/20 Marie Carrillo DO Orthopedics 01/29/16 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 Relationship Specialty Start Date End Date Bertha Wood [address] [place] [address] PCP - General Family Medicine 06/28/20 Marie Carrillo DO Orthopedics 01/29/16 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 Relationship Specialty Start Date End Date Bertha Wood [address] [place] [address] PCP - General Family Medicine 06/28/20 Marie Carrillo DO Orthopedics 01/29/16 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 [employer] provides no warranty or guarantee of the accuracy or completeness of information in this document.
[2025-03-05 10:34] LABS: AST(SGOT) 55 U/L (<=31); Alanine Aminotransfer ALT/SGPT 26 U/L (<=34); Albumin, Serum 3.3 g/dL (3.5-5.0); Alkaline Phosphatase 124 U/L (35-104); Anion Gap 13 (5-15); BUN 7 mg/dL (4-19); BUN/Creat Ratio 8.6 RATIO (10-20); Calcium,Total 9.0 mg/dL (7.6-11.0); Carbon Dioxide 19.0 mmol/L (21.0-32.0); Chloride 102 mmol/L (98-108); Estimated Creatinine Clearance 146.51 ml/min (50-250); Globulin 2.7 g/dL (2.2-4.2); Glucose 95 mg/dL (70-99); Potassium 4.0 mmol/L (3.3-5.1)
[2025-03-05 11:06] LABS: Mucous, Urine 0 SEEN /hpf (<or=2+); Red Blood Cells-Urine 0 SEEN /hpf (0-5)
[2025-03-05 11:07] LABS: Color, Urine Yellow (Yellow); Glucose, Dipstick Normal (Normal); Ketone-Dipstick Negative (Negative); Leukocyte Esterase-Dipstick 500 /ul (Negative); Nitrite-Dipstick Negative (Negative); Occult Blood-Urine Negative /ul (Negative); Protein-Dipstick 15 mg/dl (Negative); Specific Gravity, Urine 1.005 (1.002-1.030); Urine Bilirubin Dipstick Negative (Negative)
[2025-03-05 11:09] VITALS: BP 139/90
[2025-03-05 11:13] LABS: Squamous Epithelial Cells - UA 0-5 SEEN /hpf (5-10)
[2025-03-05 12:45] VITALS: BP 139/70; PULSE 97
[2025-03-05 15:02] VITALS: BP 139/70; PULSE 97; RESP 16; TEMP 36.9; O2SAT 100
== END 2025-03-05 15:03 | disposition home or self-care (01) ==
PROVIDERS: Emergency Provider Emergency Medicine; PCP Family Medicine; Visit Provider Emergency Medicine
DX: O21.2 Late vomiting of pregnancy (principal); F31.9 Bipolar disorder, unspecified; F41.1 Generalized anxiety disorder; O99.343 Other mental disorders complicating pregnancy, third trimester; O26.893 Other specified pregnancy related conditions, third trimester; R19.7 Diarrhea, unspecified; R03.0 Elevated blood-pressure reading, without diagnosis of hypertension; Z3A.34 34 weeks gestation of pregnancy; Z79.899 Other long term (current) drug therapy; Z87.891 Personal history of nicotine dependence
CPT/HCPCS: 80053; 81001; 85025; 87631; 96361; 96374; 99283; A4216; J2405

== ENCOUNTER 2025-03-07 14:00 | Outpatient (CLI) | payer BC, SELFPAY ==
[2025-03-07 14:18] VITALS: BMI 34.9
[2025-03-07] MEDS: Lactated Ringers 1,000 ML 999 ML IV (14:25)
[2025-03-07 14:28] VITALS: BP 133/84; PULSE 71; RESP 18; TEMP 37.1
[2025-03-07 14:30] VITALS: O2SAT 97
== END 2025-03-07 15:48 | disposition home or self-care (01) ==
LOC: WPOUT 14:07 → WP 14:07
PROVIDERS: PCP Family Medicine; Referring Provider Obstetrics & Gynecology; Visit Provider Obstetrics & Gynecology
DX: O21.2 Late vomiting of pregnancy (principal); F31.9 Bipolar disorder, unspecified; O99.343 Other mental disorders complicating pregnancy, third trimester; O99.283 Endocrine, nutritional and metabolic diseases complicating pregnancy, third trimester; E86.0 Dehydration; O26.893 Other specified pregnancy related conditions, third trimester; R19.7 Diarrhea, unspecified; O24.410 Gestational diabetes mellitus in pregnancy, diet controlled; O09.93 Supervision of high risk pregnancy, unspecified, third trimester; Z67.91 Unspecified blood type, Rh negative; Z3A.34 34 weeks gestation of pregnancy; Z79.899 Other long term (current) drug therapy; Z87.891 Personal history of nicotine dependence
CPT/HCPCS: 96360; 59025; 59050; 82962; 99221; G0378

== ENCOUNTER 2025-03-10 08:18 | Outpatient (CLI) | payer BC, SELFPAY ==
[2025-03-10 08:33] VITALS: BP 144/83; PULSE 66; RESP 16; TEMP 36.2; O2SAT 99; BMI 34.9
[2025-03-10] MEDS: 0.9% NaCl Peripheral Flush Adult IV (08:37)
[2025-03-10 09:54] VITALS: BP 137/86; PULSE 73; RESP 16; O2SAT 99
== END 2025-03-10 23:59 | disposition home or self-care (01) ==
LOC: MEDOUTP 08:18
PROVIDERS: PCP Family Medicine; Referring Provider Obstetrics & Gynecology; Visit Provider Obstetrics & Gynecology
DX: E86.0 Dehydration (principal)
CPT/HCPCS: 96360; 96374; A4216; J2405

== ENCOUNTER 2025-03-10 18:00 | Inpatient (IN) | payer BC, SELFPAY ==
[2025-03-10] VITALS (45 sets, daily range): BP systolic 116–193; BP diastolic 55–111; PULSE 65–106; RESP 16–18; TEMP 36.4–36.7; O2SAT 96–100; BMI 36.5
--- NOTE | 2025-03-10 16:52 | US_ITS ---
PROCEDURE: US ABDOMEN LIMITED 03/10/2025 REASON FOR EXAM: BLOODY EMESIS TECHNIQUE: Procedure Code: USABDL Modality: US Procedure: ABDOMEN LIMITED COMPARISON: None available. FINDINGS: Liver: Grossly normal in size with homogeneous parenchymal echotexture. Gallbladder: Normal. No stones, sludge, wall thickening or tenderness. Common bile duct: Normal measuring up to 0.3 cm diameter. Pancreas: Visualized portions are sonographically unremarkable. The visualized right kidney is unremarkable. No right upper quadrant ascites. US/Abdomen Limited IMPRESSION: Unremarkable RUQ abdominal ultrasound. No cholelithiasis or biliary ductal dilatation. Reading Location: [id number]
[2025-03-10 17:10] LABS: Hematocrit 32.4 % (37-47); Hemoglobin 11.2 g/dL (12.0-15.0); Mean Corp Hgb Conc 34.6 g/dL (32-36); Mean Corpuscular Volume 88.8 fL (81-99); Mean Platelet Vol. 11.8 fl (6.2-12.0); Platelet Count 185 K/mm3 (150-450); RBC Distribution Width CV 13.2 % (11.6-14.6); RBC Distribution Width SD 41.9 fl (35.1-43.9); Red Blood Count 3.65 M/mm3 (4.2-5.4); White Blood Count 7.7 K/mm3 (4.4-11.0)
[2025-03-10 17:45] LABS: ROM Internal Control Test YES-OK TO RESULT pt. (Internal QC); ROM Patient Test Negative (Negative); Record Kit Lot#, ROM+ K3358
[2025-03-10 17:47] LABS: Creatinine, Urine (random) 75.70 mg/dL (28.00-217.00); Protein, Urine (Random) 16.8 mg/dL (0.0-12.0); Protein:Creat Ratio 222 mg/g CRE (0-200)
[2025-03-10 17:48] LABS: Uric Acid 10.7 mg/dL (2.6-6.0)
[2025-03-10 17:50] LABS: AST(SGOT) 61 U/L (<=31); Alanine Aminotransfer ALT/SGPT 37 U/L (<=34)
[2025-03-10] MEDS: LACTATED RINGERS 200 ML 15 ML IV (18:00)
[2025-03-10] MEDS: Magnesium Sulfate 4gm/100mL 4 GM/100 ML IV.SOLN. IV (18:08)
[2025-03-10] MEDS: Magnesium Sulfate 4gm/100mL 2 GM/50 ML IV.SOLN. IV (18:24)
[2025-03-10] MEDS: Magnesium Sulfate 20 GM/500 ML BAG IV (18:40)
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
[2025-03-10 19:17] LABS: LDH 271 U/L (84-246)
[2025-03-10] MEDS: 0.9% Saline Lock 10 ML Syringe IV ×2 (19:39→22:00)
[2025-03-10] MEDS: LURASIDONE HCL 60 MG TABLET PO (22:07)
[2025-03-10 22:20] LABS: Barbiturate Urine NEGATIVE (< 200 ng/mL); Benzodiazepine Urine NEGATIVE (< 200 ng/mL); PCP Urine NEGATIVE (< 25 ng/mL); THC Urine NEGATIVE (< 50 ng/mL)
[2025-03-10 22:57] LABS: Syphilis Antibodies Nonreactive (Nonreactive)
[2025-03-11] VITALS (107 sets, daily range): BP systolic 111–168; BP diastolic 56–91; PULSE 67–97; RESP 14–18; TEMP 36.1–37; O2SAT 81–100
[2025-03-11] MEDS: Lactated Ringers 1,000 ML 15 ML IV ×2 (03:55→11:14)
[2025-03-11] MEDS: Magnesium Sulfate 20 GM/500 ML BAG IV ×3 (03:56→23:15)
--- NOTE | 2025-03-11 07:20 | PCM.PN.BLA ---
Progress Note Coping well with contractions current tracing: FHT: 130 Moderate variability reactive no decelerations category I tracing [place]: every 4-5 minute Contractions Membranes:AROM for clear fluid at 0640 SVE:3/70/-2 A/P: Continue with position changes Start pitocin per protocol after light breakfast Epidural per anesthesia if desired DO to manage severe Pre Eclampsia PCN for GBS prophylaxis Anticipate Dr Mcgovern aware of above assessment and agrees with plan of care Assessment & Plan Assessment/Plan (1) Encounter for induction of labor: (2) Positive GBS test: (3) Severe pre-eclampsia: (4) Dehydration: (5) Gestational hypertension: (6) Nausea, vomiting, and diarrhea: (7) Elevated liver enzymes: (8) Intact amniotic membranes: (9) Edema during : (10) Gestational diabetes mellitus (GDM) affecting , antepartum: (11) Hyperemesis: (12) Rh negative status during : QUALIFIERS: Trimester: second trimester Qualified Code(s): O26.892 - Other specified related conditions, second trimester; Z67.91 - Unspecified blood type, Rh negative (13) Supervision of high-risk : QUALIFIERS: Trimester: third trimester Qualified Code(s): O09.93 - Supervision of high risk , unspecified, third trimester (14) : QUALIFIERS: Weeks of gestation: 34 weeks Qualified Code(s): Z3A.34 - 34 weeks gestation of (15) History of marijuana use: (16) Bipolar disorder: QUALIFIERS: Active/Remission status: remission status unspecified Qualified Code(s): F31.9 - Bipolar disorder, unspecified (17) Eating disorder: QUALIFIERS: Eating disorder type: unspecified eating disorder Qualified Code(s): F50.9 - Eating disorder, unspecified (18) PTSD (post-traumatic stress disorder): (19) Generalized anxiety disorder: (20) Depression: QUALIFIERS: Depression Type: unspecified Qualified Code(s): F32.A - Depression, unspecified Multi Select Codes Urinary/Genital Urinary/Genital CPT Codes: No Charge
[2025-03-11] MEDS: Penicillin G Pot 5,000,000 UNITS in 0.9% Normal Saline (100mL MB+) 100 ML 150 UNITS IV (07:38)
[2025-03-11] MEDS: Oxytocin 15 Units/NS 250ml 15 UNITS/250 ML IV.SOLN 2 UNITS IV (07:39)
[2025-03-11] MEDS: fentaNYL-bupivacaine (epidural) 100 ML BAG EPIDURAL ×2 (09:53→14:30)
[2025-03-11] MEDS: LEVOCETIRIZINE DIHYDROCHLORIDE 5 MG 10 MG PO (10:15)
[2025-03-11] MEDS: FLUOXETINE HCL 40 MG CAPSULE PO (10:16)
[2025-03-11] MEDS: Penicillin G 3,000,000 Units 50 ML 100 UNITS IV (11:27)
--- NOTE | 2025-03-11 15:46 | EX.PCM.OBVAG ---
Assessment & Plan (1) Vaginal delivery: COMMENT: KW IOL Pre e Girl Soledad (2) Encounter for induction of labor: (3) Positive GBS test: (4) Severe pre-eclampsia: (5) Dehydration: (6) Gestational hypertension: COMMENT: deliver at 37 weeks (7) Nausea, vomiting, and diarrhea: (8) Elevated liver enzymes: COMMENT: minimally elevated AST:repeat CMP at next visit (9) Intact amniotic membranes: (10) Edema during : (11) Gestational diabetes mellitus (GDM) affecting , antepartum: COMMENT: nutrition consult, testing QID, gorwth us 36 weeks and IOL by 40 eweks (12) Hyperemesis: COMMENT: compazine and zofran scheduled. was on phenergan- failed. Improved (13) Rh negative status during : QUALIFIERS: Trimester: second trimester Qualified Code(s): O26.892 - Other specified related conditions, second trimester; Z67.91 - Unspecified blood type, Rh negative COMMENT: rhogam at 28 weeks and PRN-Rhogam given for spotting on 11/04/24 fetus +, Given 01/24/25 (14) Supervision of high-risk : QUALIFIERS: Trimester: third trimester Qualified Code(s): O09.93 - Supervision of high risk , unspecified, third trimester COMMENT: PRR , HERBIE 04/06/25, girl _ Isjose gHusband: Asa (15) : QUALIFIERS: Weeks of gestation: 34 weeks Qualified Code(s): Z3A.34 - 34 weeks gestation of COMMENT: NIPT low risk, NT normal. anatomy reviewed (16) History of marijuana use: COMMENT: Last Use: 2021 (17) Bipolar disorder: QUALIFIERS: Active/Remission status: remission status unspecified Qualified Code(s): F31.9 - Bipolar disorder, unspecified COMMENT: NOS, on Latuda-consult [facility] (18) Eating disorder: QUALIFIERS: Eating disorder type: unspecified eating disorder Qualified Code(s): F50.9 - Eating disorder, unspecified COMMENT: Anorexia age 12 - 21, Hospitalized x2 Please be sensitive with wt & discussions (19) PTSD (post-traumatic stress disorder): COMMENT: Raped @ age 16, conceived -> w/oral pill (20) Generalized anxiety disorder: (21) Depression: QUALIFIERS: Depression Type: unspecified Qualified Code(s): F32.A - Depression, unspecified Maternal Data Information HERBIE Calculator Estimated Delivery Date Method Current WG Current Estimate 04/15/25 Ultrasound #1 35w 0d Other Estimates 04/06/25 LMP (Certain) 36w 2d 04/14/25 Ultrasound #2 35w 1d Final HERBIE: 04/15/25 Final HERBIE Source: US >20 weeks Gestational age: 35.0 Doctor Who Attended Delivery: Arnold Coon Vaginal Delivery Maternal Presentation Maternal Presentation: Medically Indicated Induction Maternal Presentation: Presented to unit for induction of labor for pre eclampsia Type of Induction: Pitocin and Cytotec Vaginal Delivery Information Procedure Performed: Spontaneous Vaginal Delivery Surgeon/Practitioner: Zoya Hoffman Date of Procedure: 03/11/25 Pre-Procedure Diagnosis: see problem list Post-Procedure Diagnosis: same Type of anesthesia: Epidural Estimated Blood Loss: 1000 Time of Delivery: 15:18 Findings Description of procedure: Progressed well to 10cm dilated and made steady progress with effective maternal pushing. Delivered the head in GERARD presentation. The head was delivered atraumatically and no nuchal cord was identified. The anterior and posterior shoulders delivered without complication followed by the rest of the and the infant was placed on the maternal abdomen. Delayed cord clamping was employed for approximately 3 minutes. Cord was clamped and cut and gentle traction was applied to the cord and the placenta delivered spontaneously. Immediately following, it was noted to be intact with a 3 vessel cord. Uterine bleeding brisk, Hemabate, Cytotec, TXA, and uterine sweep performed and clots extracted. Dr Mcgovern called to room for additional support. She performed uterine sweep and one clot extracted by her. Bleeding stable and uterus firm. The perineum and vagina were inspected and noted to have a first degree laceration which was repaired with 3-0 Vicryl in the usual fashion. EBL was 1000cc. Patient and infant tolerated delivery well. Apgars to be determined. Will add Methergine if needed- discussed with Yovana and agrees with plan Dr Mcgovern notified of vaginal delivery and orders reviewed. Physician agrees with current plan of care. Presentation: Vertex Amniotic Membrane Rupture Type: Artificial Amniotic Fluid Description: Clear Placental Delivery Description: Expressed Placenta Disposition: [facility] Specimen collected: No Cord Vessel Description: 3 Vessels Cord Entanglement: None A Gender: Female Delayed Cord Clamping: Yes Admissions Officer crisis counselor: No Post Vaginal Deli Medications given after delivery: IV Pitocin, IM Hemabate and Other (TXA, cytotec, ) Episiotomy Description: None Laceration: 1st degree Complication Complications: No Multi Select Codes Urinary/Genital Urinary/Genital CPT Codes: 30167 Vaginal Delivery [facility]
--- NOTE | 2025-03-11 15:54 | PCM.DC ---
Discharge Instructions DC O2, CPAP, BIPAP needs Home O2 Discharge instructions: No Dressing / Incision Discharge Activity: Return to Normal Activity May resume sexual activity in: 6-8 weeks Dressing / Incision Call your doctor if you observe: Fever of 101 or Higher, Coldness, Increased Pain, Numbness or Tingling, Change in Color, Inability to urinate, Inability to have a bowel movement, Using more than 1 pad per hour, Shortness of breath, Dizziness, Fainting spells, Swelling in the ankles, Chest pain, Increased palpitations (irregular heartbeat), Calf discomfort and Uncontrolled pain Follow Up Care Please Follow Up With: Zoya Hoffman CNM When: Please call the office to schedule your follow up appointment in 6 weeks. If you had high blood pressure please call to schedule an appointment in 2 weeks. Test Results: Test results from this visit will be discussed in further detail at your follow-up appointment, if applicable. Discharge Plan Admission Admit Date/Time: 03/10/25 18:00 Attending Provider: Zoya Hoffman Primary Care Provider: Taiwo Conde Discharge Orders/Prescriptions Prescriptions: No Action DHA 200 mg capsule 200 mg PO DAILY fluoxetine [Prozac] 40 mg capsule 60 mg PO QDAY levocetirizine 5 mg tablet 5 mg PO QDAY lurasidone [Latuda] 20 mg tablet 20 mg PO QDAY Rx Instructions: must administer with food (at least 350 calories) famotidine [Pepcid] 20 mg tablet 20 mg PO BID Qty: 60 6RF promethazine 25 mg suppository 25 mg [place] Q6H PRN (Reason: nausea and vomiting) Qty: 12 0RF ondansetron 4 mg tablet,disintegrating 4 mg PO Q8H PRN (Reason: nausea and vomiting) Qty: 30 4RF promethazine 12.5 mg tablet 12.5 mg PO Q6H PRN (Reason: nausea and vomiting) 30 Days Qty: 120 3RF prochlorperazine maleate [Compazine] 10 mg tablet 10 mg PO Q8H PRN (Reason: nausea and vomiting) Qty: 90 3RF (DME) FreeStyle Lucio 2 Sensor Kit See Rx Instructions .Route Qty: 1 8RF Rx Instructions: As directed (DME) FreeStyle Lucio 2 [place] Misc See Rx Instructions .Route Qty: 1 0RF Rx Instructions: As directed (DME) Blood Glucose Test Strip See Rx Instructions .MEDSUPPLY Qty: 120 5RF Rx Instructions: As directed-fasting & 2 hr post meals (DME) blood-glucose meter Misc See Rx Instructions .MEDSUPPLY Qty: 1 0RF Rx Instructions: As directed- Test fasting and 2 hours after meals (DME) lancets Misc See Rx Instructions .MEDSUPPLY Qty: 200 5RF Rx Instructions: As directed-fasting & 2 hr post meals metoclopramide HCl [Reglan] 10 mg tablet 10 mg PO TID Qty: 90 3RF Referrals / Follow Up: Taiwo Conde DO [Primary Care Provider, Family Practice]
[2025-03-11 15:57] LABS: Hematocrit 32.0 % (37-47); Hemoglobin 10.9 g/dL (12.0-15.0); Immature Granulocytes Count 0.060 X10^3/uL (0.0-0.0); Mean Corp Hgb Conc 34.1 g/dL (32-36); Mean Corpuscular Volume 89.1 fL (81-99); Mean Platelet Vol. 11.2 fl (6.2-12.0); NRBC Flagged by Analyzer 0.1 % (0-5); Platelet Count 192 K/mm3 (150-450); RBC Distribution Width CV 13.2 % (11.6-14.6); RBC Distribution Width SD 42.9 fl (35.1-43.9); Red Blood Count 3.59 M/mm3 (4.2-5.4); White Blood Count 15.8 K/mm3 (4.4-11.0)
[2025-03-11] MEDS: TRANEXAMIC ACID 1,000 MG in 0.9% Normal Saline (100mL Bag) 100 ML 440 MG IV (16:00)
[2025-03-11] MEDS: Oxytocin 15 Units/NS 250ml 15 UNITS/250 ML IV.SOLN 83 UNITS IV (16:12)
[2025-03-11] MEDS: 0.9% Saline Lock 10 ML Syringe IV ×2 (16:12→18:55)
[2025-03-11] MEDS: Cefazolin 2 GM in 0.9% Normal Saline (100mL Bag) 100 ML IV (16:12)
[2025-03-11] MEDS: LURASIDONE HCL 60 MG TABLET PO (22:17)
[2025-03-11] MEDS: Rho(D) Immune Globulin 300 MCG (1500 Unit) Syringe IV (22:20)
[2025-03-12] VITALS (73 sets, daily range): BP systolic 102–134; BP diastolic 51–81; PULSE 69–94; RESP 16–18; TEMP 36.2–36.9; O2SAT 89–100
[2025-03-12] MEDS: 0.9% Saline Lock 10 ML Syringe IV ×4 (06:29→22:12)
[2025-03-12 06:44] LABS: Hematocrit 22.5 % (37-47); Hemoglobin 8.0 g/dL (12.0-15.0); Immature Granulocytes Count 0.100 X10^3/uL (0.0-0.0); Mean Corp Hgb Conc 35.6 g/dL (32-36); Mean Corpuscular Volume 88.2 fL (81-99); Mean Platelet Vol. 11.5 fl (6.2-12.0); NRBC Flagged by Analyzer 0 % (0-5); Platelet Count 168 K/mm3 (150-450); RBC Distribution Width CV 13.2 % (11.6-14.6); RBC Distribution Width SD 42.5 fl (35.1-43.9); Red Blood Count 2.55 M/mm3 (4.2-5.4); White Blood Count 19.5 K/mm3 (4.4-11.0)
[2025-03-12 07:01] LABS: AST(SGOT) 24 U/L (<=31); Alanine Aminotransfer ALT/SGPT 22 U/L (<=34); Albumin, Serum 2.3 g/dL (3.5-5.0); Alkaline Phosphatase 97 U/L (35-104); Anion Gap 9 (5-15); BUN 5 mg/dL (4-19); BUN/Creat Ratio 6.3 RATIO (10-20); Calcium,Total 6.6 mg/dL (7.6-11.0); Carbon Dioxide 21.1 mmol/L (21.0-32.0); Chloride 101 mmol/L (98-108); Estimated Creatinine Clearance 150.80 ml/min (50-250); Globulin 1.9 g/dL (2.2-4.2); Glucose 106 mg/dL (70-99); Potassium 3.4 mmol/L (3.3-5.1)
--- NOTE | 2025-03-12 09:05 | PN.OBGYN_ITS ---
Subjective Subjective Patient doing well without complaints. Tolerating PO. Ambulating and voiding without difficulty. Feeding well. Denies chest pain, shortness of breath, calf pain/swelling, fevers, chills, lightheadedness. concerned with significant fatigue and heaviness in lower extremities. will draw mag level. Objective Data Objective Data Vital Signs: Vital Signs Temp Pulse Resp BP Pulse Ox O2 Del Method 98.2 F 73 18 112/59 L 89 Room Air 03/12/25 07:00 03/12/25 09:04 03/12/25 07:00 03/12/25 09:04 03/12/25 09:04 03/12/25 07:00 Oxygen Delivery Method Room Air Weight: 240 lb Body Mass Index (BMI) 36.5 Intake & Output: Intake and Output for Last 24 Hours 03/10/25 03/11/25 03/12/25 23:59 23:59 23:59 Intake Total 325 / 325 3012.00 / 3047.00 280 / 280 Output Total 500 / 500 2735 / 2775 130 / 130 Balance -175 / -175 277.00 / 272.00 150 / 150 Lab / Micro Data Attestation: I reviewed the patient's lab results. 03/12/25 06:34 03/12/25 06:34 Labs: Laboratory Results - last 24 hr 03/11/25 07:50: Blood Type A NEGATIVE, Antibody Screen NEGATIVE 03/11/25 11:34: POC Glucose 87 03/11/25 14:42: POC Glucose 89 03/11/25 15:50: WBC 15.8 H, RBC 3.59 L, Hgb 10.9 L, Hct 32.0 L, MCV 89.1, MCH 30.4, MCHC 34.1, RDW Std Deviation 42.9, RDW Coeff of Rosy 13.2, Plt Count 192, MPV 11.2, Immature Gran % (Auto) 0.400, Neut % (Auto) 86.9 H, Lymph % (Auto) 6.8 L, [place] % (Auto) 5.5, Eos % (Auto) 0.1, Baso % (Auto) 0.3, Absolute Neuts (auto) 13.8 H, Absolute Lymphs (auto) 1.07, Nucleated RBC % 0.1 03/11/25 16:51: POC Glucose 126 H 03/11/25 17:22: POC Glucose 126 H 03/11/25 18:51: Screen NEGATIVE, Baby's Blood Type A POSITIVE, Baby's [place] NEGATIVE 03/12/25 05:09: POC Glucose 86 03/12/25 06:34: WBC 19.5 H, RBC 2.55 L, Hgb 8.0 L, Hct 22.5 L, MCV 88.2, MCH 31.4, MCHC 35.6, RDW Std Deviation 42.5, RDW Coeff of Rosy 13.2, Plt Count 168, MPV 11.5, Immature Gran % (Auto) 0.500, Neut % (Auto) 86.3 H, Lymph % (Auto) 8.0 L, [place] % (Auto) 4.9, Eos % (Auto) 0.1, Baso % (Auto) 0.2, Absolute Neuts (auto) 16.8 H, Absolute Lymphs (auto) 1.56, Nucleated RBC % 0, Sodium 131 L, Potassium 3.4, Chloride 101, Carbon Dioxide 21.1, Anion Gap 9, BUN 5, Creatinine 0.75, Estim Creat Clear Calc 150.80, Est GFR (MDRD) Non-Af 114, BUN/Creatinine Ratio 6.3 L, Glucose 106 H, Calcium 6.6 L, Total Bilirubin 0.17, AST 24, ALT 22, Alkaline Phosphatase 97, Total Protein 4.2 L, Albumin 2.3 L, Globulin 1.9 L, Albumin/Globulin Ratio 1.2 Micro: Microbiology 03/10/25 16:55 Genital vaginal Group B Streptococcus (PCR) - Final Streptococcus group B ROS Constitutional Constitutional: Reports systems reviewed and no addt'l complaints, except as documented; Denies anorexia or headache(s) Cardiovascular Cardiovascular: Reports systems reviewed and no addt'l complaints, except as documented; Denies dizziness, dyspnea, nausea or tachypnea Respiratory/Chest Respiratory/Chest: Reports systems reviewed and no addt'l complaints, except as documented; Denies cough, dyspnea, shortness of breath at rest or tachypnea Gastrointestinal Gastrointestinal: Reports systems reviewed and no addt'l complaints, except as documented; Denies abdominal pain, constipation or nausea Genitourinary Genitourinary: Reports systems reviewed and no addt'l complaints, except as documented; Denies burning urination, difficulty urinating, dysuria, urinary frequency or urinary incontinence Musculoskeletal Musculoskeletal: Reports systems reviewed and no addt'l complaints, except as documented Integumentary Integumentary: Reports systems reviewed and no addt'l complaints, except as documented Neurologic Neurologic: Reports systems reviewed and no addt'l complaints, except as documented; Denies abnormal speech, dizziness or headache(s) Psychiatric Psychiatric: Reports systems reviewed and no addt'l complaints, except as documented Endocrine Endocrinology: Reports systems reviewed and no addt'l complaints, except as documented Hematologic/Lymphatic Hematologic/Lymphatic: Reports systems reviewed and no addt'l complaints, except as documented Physical Exam Const alert, oriented x3 and no apparent distress Neck full ROM Resp normal respiratory effort, normal air movement and no retractions Effort and Inspection: able to speak in complete sentences and symmetric chest movement GI soft to palpation Bladder / Kidney Exam: bladder normal to palpation Uterus Palpation: uterus fundus firm Extremity normal to inspection and full ROM Psych mental status grossly normal, thought process normal and cooperative Assessment & Plan (1) Vaginal delivery: COMMENT: KW IOL Pre e Girl Soledad PLAN: s/p PPD # 1 1. routine post delivery care 2. breast feeding- support given 3. rh positive 4. rubella immune (2) Encounter for induction of labor: (3) Positive GBS test: (4) Severe pre-eclampsia: (5) Dehydration: (6) Gestational hypertension: COMMENT: deliver at 37 weeks (7) Nausea, vomiting, and diarrhea: (8) Elevated liver enzymes: COMMENT: minimally elevated AST:repeat CMP at next visit (9) Intact amniotic membranes: (10) Edema during : (11) Gestational diabetes mellitus (GDM) affecting , antepartum: COMMENT: nutrition consult, testing QID, gorwth us 36 weeks and IOL by 40 eweks (12) Hyperemesis: COMMENT: compazine and zofran scheduled. was on phenergan- failed. Improved (13) Rh negative status during : QUALIFIERS: Trimester: second trimester Qualified Code(s): O 26.892 - Other specified related conditions, second trimester; Z67.91 - Unspecified blood type, Rh negative COMMENT: rhogam at 28 weeks and PRN-Rhogam given for spotting on 11/04/24 fetus +, Given 01/24/25 (14) Supervision of high-risk : QUALIFIERS: Trimester: third trimester Qualified Code(s): O09.93 - Supervision of high risk , unspecified, third trimester COMMENT: PRR , HERBIE 04/06/25, girl _ IslaHusband: Asa (15) : QUALIFIERS: Weeks of gestation: 34 weeks Qualified Code(s): Z 3A.34 - 34 weeks gestation of COMMENT: NIPT low risk, NT normal. anatomy reviewed (16) History of marijuana use: COMMENT: Last Use: 2021 (17) Bipolar disorder: QUALIFIERS: Active/Remission status: remission status unspecified Qualified Code(s): F31.9 - Bipolar disorder, unspecified COMMENT: NOS, on Latuda-consult [facility] (18) Eating disorder: QUALIFIERS: Eating disorder type: unspecified eating disorder Q ualified Code(s): F50.9 - Eating disorder, unspecified COMMENT: Anorexia age 12 - 21, Hospitalized x2 Please be sensitive with wt & discussions (19) PTSD (post-traumatic stress disorder): COMMENT: Raped @ age 16, conceived -> w/oral pill (20) Generalized anxiety disorder: (21) Depression: QUALIFIERS: Depression Type: unspecified Qualified Code(s): F32.A - Depression, unspecified Charges/Coding Multi Select Codes Urinary/Genital Urinary/Genital CPT Codes: No Charge
[2025-03-12] MEDS: Magnesium Sulfate 20 GM/500 ML BAG IV (09:21)
[2025-03-12] MEDS: FLUOXETINE HCL 40 MG CAPSULE PO (09:23)
[2025-03-12] MEDS: LEVOCETIRIZINE DIHYDROCHLORIDE 5 MG 10 MG PO (09:24)
[2025-03-12 09:54] LABS: Magnesium 7.1 mg/dL (1.5-2.2)
[2025-03-12] MEDS: Benzocaine/Lanolin/Aloe Vera 85 GM Spray 1 SPRAY TOPICAL ×2 (14:02→22:25)
[2025-03-12] MEDS: GLYCERIN/WITCH HAZEL (TUCKS) MED..PAD 1 EACH TOPICAL ×2 (14:03→22:24)
[2025-03-12] MEDS: SELF ADMINISTRATION OF MEDS 1 EACH NOTE ×2 (14:05→22:24)
[2025-03-12 14:59] LABS: Hematocrit 23.2 % (37-47); Hemoglobin 8.2 g/dL (12.0-15.0); Immature Granulocytes Count 0.160 X10^3/uL (0.0-0.0); Mean Corp Hgb Conc 35.3 g/dL (32-36); Mean Corpuscular Volume 87.9 fL (81-99); Mean Platelet Vol. 11.9 fl (6.2-12.0); NRBC Flagged by Analyzer 0 % (0-5); Platelet Count 187 K/mm3 (150-450); RBC Distribution Width CV 13.3 % (11.6-14.6); RBC Distribution Width SD 41.9 fl (35.1-43.9); Red Blood Count 2.64 M/mm3 (4.2-5.4); White Blood Count 19.6 K/mm3 (4.4-11.0)
[2025-03-12] MEDS: LURASIDONE HCL 60 MG TABLET PO (22:12)
[2025-03-13 00:35] VITALS: BP 104/49; PULSE 77; RESP 16; TEMP 36.3; O2SAT 97
[2025-03-13 04:30] VITALS: BP 119/51; PULSE 79; RESP 18; TEMP 36.1; O2SAT 98
[2025-03-13 08:03] VITALS: BP 135/95; PULSE 73; RESP 16; TEMP 36.3; O2SAT 99
--- NOTE | 2025-03-13 08:41 | PCM.PN.OB ---
Subjective Subjective Patient doing well without complaints. Tolerating PO. Ambulating and voiding without difficulty. Feeding well. Denies chest pain, shortness of breath, calf pain/swelling, fevers, chills, lightheadedness. Objective Data Objective Data Vital Signs: Vital Signs Temp Pulse Resp BP Pulse Ox O2 Del Method 97.3 F L 73 16 135/95 H 99 Room Air 03/13/25 08:03 03/13/25 08:03 03/13/25 08:03 03/13/25 08:03 03/13/25 08:03 03/13/25 04:30 Oxygen Delivery Method Room Air Weight: 240 lb Body Mass Index (BMI) 36.5 Intake & Output: Intake and Output for Last 24 Hours 03/11/25 03/12/25 03/13/25 23:59 23:59 23:59 Intake Total 3012.00 / 3047.00 977.5 / 977.5 Output Total 2735 / 2775 480 / 480 Balance 277.00 / 272.00 497.5 / 497.5 Lab / Micro Data 03/12/25 14:40 03/12/25 06:34 Labs: Laboratory Results - last 24 hr 03/12/25 09:10: Magnesium 7.1 H* 03/12/25 14:40: WBC 19.6 H, RBC 2.64 L, Hgb 8.2 L, Hct 23.2 L, MCV 87.9, MCH 31.1, MCHC 35.3, RDW Std Deviation 41.9, RDW Coeff of Rosy 13.3, Plt Count 187, MPV 11.9, Immature Gran % (Auto) 0.800, Neut % (Auto) 86.8 H, Lymph % (Auto) 7.6 L, [place] % (Auto) 4.5, Eos % (Auto) 0.2, Baso % (Auto) 0.1, Absolute Neuts (auto) 17.0 H, Absolute Lymphs (auto) 1.49, Nucleated RBC % 0 Micro: Microbiology 03/10/25 16:55 Genital vaginal Group B Streptococcus (PCR) - Final Streptococcus group B ROS Constitutional Constitutional: Reports systems reviewed and no addt'l complaints, except as documented; Denies anorexia or headache(s) Cardiovascular Cardiovascular: Reports systems reviewed and no addt'l complaints, except as documented; Denies dizziness, dyspnea, nausea or tachypnea Respiratory/Chest Respiratory/Chest: Reports systems reviewed and no addt'l complaints, except as documented; Denies cough, dyspnea, shortness of breath at rest or tachypnea Gastrointestinal Gastrointestinal: Reports systems reviewed and no addt'l complaints, except as documented; Denies abdominal pain, constipation or nausea Genitourinary Genitourinary: Reports systems reviewed and no addt'l complaints, except as documented; Denies burning urination, difficulty urinating, dysuria, urinary frequency or urinary incontinence Musculoskeletal Musculoskeletal: Reports systems reviewed and no addt'l complaints, except as documented Integumentary Integumentary: Reports systems reviewed and no addt'l complaints, except as documented Neurologic Neurologic: Reports systems reviewed and no addt'l complaints, except as documented; Denies abnormal speech, dizziness or headache(s) Psychiatric Psychiatric: Reports systems reviewed and no addt'l complaints, except as documented Endocrine Endocrinology: Reports systems reviewed and no addt'l complaints, except as documented Hematologic/Lymphatic Hematologic/Lymphatic: Reports systems reviewed and no addt'l complaints, except as documented Physical Exam Const alert, oriented x3 and no apparent distress Neck full ROM Resp normal respiratory effort, normal air movement and no retractions Effort and Inspection: able to speak in complete sentences and symmetric chest movement GI soft to palpation Bladder / Kidney Exam: bladder normal to palpation Uterus Palpation: uterus fundus firm Extremity normal to inspection and full ROM Psych mental status grossly normal, thought process normal and cooperative Assessment & Plan (1) Vaginal delivery: COMMENT: KW IOL Pre e Girl Soledad PLAN: s/p PPD # 2 1. routine post delivery care 2. breast feeding- support given 3. rh positive 4. rubella immune 5. discharge home (2) Encounter for induction of labor: (3) Positive GBS test: (4) Severe pre-eclampsia: (5) Dehydration: (6) Gestational hypertension: COMMENT: deliver at 37 weeks (7) Elevated liver enzymes: COMMENT: minimally elevated AST:repeat CMP at next visit (8) Edema during : (9) Gestational diabetes mellitus (GDM) affecting , antepartum: COMMENT: nutrition consult, testing QID, gorwth us 36 weeks and IOL by 40 eweks (10) Hyperemesis: COMMENT: compazine and zofran scheduled. was on phenergan- failed. Improved (11) Rh negative status during : QUALIFIERS: Trimester: second trimester Qualified Code(s): O26.892 - Other specified related conditions, second trimester; Z67.91 - Unspecified blood type, Rh negative COMMENT: rhogam at 28 weeks and PRN-Rhogam given for spotting on 11/04/24 fetus +, Given 01/24/25 (12) Supervision of high-risk : QUALIFIERS: Trimester: third trimester Qualified Code(s): O09.93 - Supervision of high risk , unspecified, third trimester COMMENT: PRR , HERBIE 04/06/25, girl _ IslaHusband: Asa (13) : QUALIFIERS: Weeks of gestation: 34 weeks Qualified Code(s): Z3A.34 - 34 weeks gestation of COMMENT: NIPT low risk, NT normal. anatomy reviewed Charges/Coding Multi Select Codes Urinary/Genital Urinary/Genital CPT Codes: No Charge
--- NOTE | 2025-03-13 08:43 | DS.PCM_ITS ---
Providers Date of Admission: 03/10/25 Date of Discharge: 03/13/25 Primary Care Physician: Dr. Taiwo Conde DO Reason For Visit: VAGINAL DELIVERY Diagnosis Discharge Diagnosis (1) Vaginal delivery: Status: Acute Code(s): O80 - Encounter for full-term uncomplicated delivery Plan: s/p PPD # 2 1. routine post delivery care 2. breast feeding- support given 3. rh positive 4. rubella immune 5. discharge home (2) Encounter for induction of labor: Status: Acute Code(s): Z34.90 - Encounter for supervision of normal , unspecified, unspecified trimester (3) Positive GBS test: Status: Acute Code(s): B95.1 - Streptococcus, group B, as the cause of diseases classified elsewhere (4) Severe pre-eclampsia: Status: Acute Code(s): O14.10 - Severe pre-eclampsia, unspecified trimester (5) Dehydration: Status: Acute Code(s): E86.0 - Dehydration (6) Gestational hypertension: Status: Acute Code(s): O13.9 - Gestational [-induced] hypertension without significant proteinuria, unspecified trimester (7) Elevated liver enzymes: Status: Acute Code(s): R74.8 - Abnormal levels of other serum enzymes (8) Edema during : Status: Acute Code(s): O12.00 - Gestational edema, unspecified trimester (9) Gestational diabetes mellitus (GDM) affecting , antepartum: Status: Acute Code(s): O24.419 - Gestational diabetes mellitus in , unspecified control (10) Hyperemesis: Status: Acute Code(s): R11.10 - Vomiting, unspecified (11) Rh negative status during : Status: Acute Code(s): O26.899 - Other specified related conditions, unspecified trimester; Z67.91 - Unspecified blood type, Rh negative Qualifiers: Trimester: second trimester Qualified Code(s): O26.892 - Other specified related conditions, second trimester; Z67.91 - Unspecified blood type, Rh negative (12) Supervision of high-risk : Status: Acute Code(s): O09.90 - Supervision of high risk , unspecified, unspecified trimester Qualifiers: Trimester: third trimester Qualified Code(s): O09.93 - Supervision of high risk , unspecified, third trimester (13) : Status: Acute Code(s): Z34.90 - Encounter for supervision of normal , unspecified, unspecified trimester Qualifiers: Weeks of gestation: 34 weeks Qualified Code(s): Z3A.34 - 34 weeks gestation of Medications at Discharge Home Medications docosahexaenoic acid 200 mg capsule ( DHA) 200 mg PO DAILY 08/12/24 fluoxetine 40 mg capsule (Prozac) 60 mg PO QDAY mental health 08/12/24 levocetirizine 5 mg tablet 5 mg PO QDAY 08/12/24 lurasidone 20 mg tablet (Latuda) 20 mg PO QDAY 08/12/24 ondansetron 4 mg disintegrating tablet 4 mg PO Q8H PRN nausea and vomiting #30 tabs 08/22/24 promethazine 12.5 mg tablet 12.5 mg PO Q6H PRN nausea and vomiting 30 days #120 tabs 08/30/24 prochlorperazine maleate 10 mg tablet (Compazine) 10 mg PO Q8H PRN nausea and vomiting #90 tabs 10/05/24 Held on 02/15/25. Instructions: Pt has been DC'd flash glucose scanning reader (FreeStyle Lucio 2 [place]) #1 ea 02/01/25 flash glucose sensor (FreeStyle Lucio 2 Sensor kit) #1 ea 02/01/25 blood sugar diagnostic (Blood Glucose Test strips) #120 ea 02/09/25 blood-glucose meter #1 ea 02/09/25 famotidine 20 mg tablet (Pepcid) 20 mg PO BID indigestion #60 tabs 02/09/25 lancets #200 ea 02/09/25 metoclopramide HCl 10 mg tablet (Reglan) 10 mg PO TID nausea #90 tabs 03/03/25 promethazine 25 mg rectal suppository 25 mg RI Q6H PRN nausea and vomiting #12 ea 03/07/25 Hospital Course Operations None Procedures None Summary of Care Provided Minutes Spent on Discharge: 30 Physical Exam Const alert, oriented x3 and no apparent distress Neck full ROM Resp normal respiratory effort, normal air movement and no retractions Effort and Inspection: able to speak in complete sentences and symmetric chest movement GI soft to palpation Bladder / Kidney Exam: bladder normal to palpation Uterus Palpation: uterus fundus Extremity normal to inspection and full ROM Psych mental status grossly normal, thought process normal and cooperative Weight / BMI Weight Weight: 240 lb Body Mass Index (BMI) 36.5 ABG / Lab / Microbiology Data 03/12/25 14:40 03/12/25 06:34 Laboratory: Laboratory Results - last 24 hr 03/12/25 09:10: Magnesium 7.1 H* 03/12/25 14:40: WBC 19.6 H, RBC 2.64 L, Hgb 8.2 L, Hct 23.2 L, MCV 87.9, MCH 31.1, MCHC 35.3, RDW Std Deviation 41.9, RDW Coeff of Rosy 13.3, Plt Count 187, MPV 11.9, Immature Gran % (Auto) 0.800, Neut % (Auto) 86.8 H, Lymph % (Auto) 7.6 L, [place] % (Auto) 4.5, Eos % (Auto) 0.2, Baso % (Auto) 0.1, Absolute Neuts (auto) 17.0 H, Absolute Lymphs (auto) 1.49, Nucleated RBC % 0 Microbiology: Microbiology 03/10/25 16:55 Genital vaginal Group B Streptococcus (PCR) - Final Streptococcus group B D/C Instructions May shower in (days): 0 May resume sexual activity in: 6-8 weeks Weight Bearing Status: Full weight bearing Call your doctor if your incision/area has: Continuous Slow Oozing, Sudden Increased Bleeding, Increased Pain/ Swelling, Increased Redness and Foul Smelling Discharge Call your doctor if you observe: Fever of 101 or Higher, Coldness, Increased Pain, Numbness or Tingling, Change in Color, Inability to urinate, Inability to have a bowel movement, Using more than 1 pad per hour, Shortness of breath, Dizziness, Fainting spells, Swelling in the ankles, Chest pain, Increased palpitations (irregular heartbeat), Calf discomfort and Uncontrolled pain Suture Line Care: Avoid Pulling/Pushing and Avoid Pinching/Bending Cleanse incision/area with: Soap & Water and Keep Dressing Clean & Dry DC O2, CPAP, BIPAP Needs Home O2 Discharge instructions: No Please Follow Up With: Zoya Hoffman CNM When: Please call the office to schedule your follow up appointment in 6 weeks. If you had high blood pressure please call to schedule an appointment in 2 weeks. Meaningful Use Info Meaningful Use Meaningful Use Diagnoses (Choose all that apply): None applicable Discharge Plan Admission Admit Date/Time: 03/10/25 18:00 Attending Provider: Zoya Hoffman Primary Care Provider: Taiwo Conde Discharge Orders/Prescriptions Prescriptions: No Action DHA 200 mg capsule 200 mg PO DAILY fluoxetine [Prozac] 40 mg capsule 60 mg PO QDAY levocetirizine 5 mg tablet 5 mg PO QDAY lurasidone [Latuda] 20 mg tablet 20 mg PO QDAY Rx Instructions: must administer with food (at least 350 calories) famotidine [Pepcid] 20 mg tablet 20 mg PO BID Qty: 60 6RF promethazine 25 mg suppository 25 mg RI Q6H PRN (Reason: nausea and vomiting) Qty: 12 0RF ondansetron 4 mg tablet,disintegrating 4 mg PO Q8H PRN (Reason: nausea and vomiting) Qty: 30 4RF promethazine 12.5 mg tablet 12.5 mg PO Q6H PRN (Reason: nausea and vomiting) 30 Days Qty: 120 3RF prochlorperazine maleate [Compazine] 10 mg tablet 10 mg PO Q8H PRN (Reason: nausea and vomiting) Qty: 90 3RF (DME) FreeStyle Lucio 2 Sensor Kit See Rx Instructions .Route Qty: 1 8RF Rx Instructions: As directed (DME) FreeStyle Lucio 2 [place] Misc See Rx Instructions .Route Qty: 1 0RF Rx Instructions: As directed (DME) Blood Glucose Test Strip See Rx Instructions .MEDSUPPLY Qty: 120 5RF Rx Instructions: As directed-fasting & 2 hr post meals (DME) blood-glucose meter Misc See Rx Instructions .MEDSUPPLY Qty: 1 0RF Rx Instructions: As directed- Test fasting and 2 hours after meals (DME) lancets Misc See Rx Instructions .MEDSUPPLY Qty: 200 5RF Rx Instructions: As directed-fasting & 2 hr post meals metoclopramide HCl [Reglan] 10 mg tablet 10 mg PO TID Qty: 90 3RF Referrals / Follow Up: Taiwo Conde DO [Primary Care Provider, Family Practice] Disposition Disposition (needs filled in before D/C Order can be placed): Home, Self Care
[2025-03-13] MEDS: LEVOCETIRIZINE DIHYDROCHLORIDE 5 MG 10 MG PO (09:55)
[2025-03-13] MEDS: FLUOXETINE HCL 40 MG CAPSULE PO (09:57)
[2025-03-13 13:09] VITALS: BP 130/83; PULSE 74; RESP 14; TEMP 36.6; O2SAT 99
== END 2025-03-13 13:00 | disposition home or self-care (01) | DRG 807 ==
LOC: WPOUT 18:11 → WP 18:11
PROVIDERS: Admitting Provider Obstetrics & Gynecology; PCP Family Medicine; Referring Provider Advanced Practice Midwife; Visit Provider Advanced Practice Midwife
DX: O14.14 Severe pre-eclampsia complicating childbirth (principal); Z37.0 Single live birth; E86.0 Dehydration; F31.9 Bipolar disorder, unspecified; O24.410 Gestational diabetes mellitus in pregnancy, diet controlled; R19.7 Diarrhea, unspecified; O21.2 Late vomiting of pregnancy; O24.429 Gestational diabetes mellitus in childbirth, unspecified control; O99.284 Endocrine, nutritional and metabolic diseases complicating childbirth; O12.04 Gestational edema, complicating childbirth; Z3A.34 34 weeks gestation of pregnancy; O99.824 Streptococcus B carrier state complicating childbirth; O13.4 Gestational [pregnancy-induced] hypertension without significant proteinuria, complicating childbirth; F41.1 Generalized anxiety disorder; O99.344 Other mental disorders complicating childbirth; F43.10 Post-traumatic stress disorder, unspecified; Z79.899 Other long term (current) drug therapy; Z87.891 Personal history of nicotine dependence; O70.0 First degree perineal laceration during delivery
CPT/HCPCS: 59025; 59050; 76705; 80053; 80307; 82565; 82570; 82962; 83615; 83735; 84112; 84156; 84450; 84460; 84550; 85025; 85027; 85461; 86780; 86850; 86900; 86901; 87653; 90384; 99221; A4216; G0378; J0675; J2405; J2790; J2791

== ENCOUNTER 2025-03-15 06:24 | Observation (INO) | payer BC, SELFPAY ==
[2025-03-15] VITALS (24 sets, daily range): BP systolic 116–164; BP diastolic 67–103; PULSE 55–104; RESP 16–20; TEMP 36.3–36.9; O2SAT 97–100; BMI 36.4; BMI 36.5
--- NOTE | 2025-03-15 02:44 | ED.VIS.DYS ---
HPI History of Present Illness Chief Complaint: Shortness of Breath Narrative Narrative: Patient is a 24-year-old A1 female presenting to the emergency department for shortness of breath. Patient is currently 35 weeks and 4 days . She has a past medical history of severe preeclampsia. She was recently seen on 03/10 for nausea and vomiting. Follows with Dr. Mcgovern and last evaluated by her group on 03/13. [facility] Medical History Bipolar disorder Eating disorder Generalized anxiety disorder Hx of thoracic outlet syndrome Home Medications ?Medication ?Instructions ?Recorded ?Last Taken ?Type docosahexaenoic acid 200 mg 200 mg PO DAILY 08/12/24 03/09/25 History capsule ( DHA) fluoxetine 40 mg capsule (Prozac) 60 mg PO QDAY mental health 08/12/24 03/10/25 History levocetirizine 5 mg tablet 5 mg PO QDAY 08/12/24 03/10/25 History lurasidone 20 mg tablet (Latuda) 20 mg PO QDAY 08/12/24 03/09/25 History ondansetron 4 mg disintegrating 4 mg PO Q8H PRN nausea and 08/22/24 03/10/25 Rx tablet vomiting #30 tabs flash glucose scanning reader #1 ea 02/01/25 Unknown Rx (FreeStyle Lucio 2 [place]) flash glucose sensor (FreeStyle #1 ea 02/01/25 Unknown Rx [place]io 2 Sensor kit) blood sugar diagnostic (Blood #120 ea 02/09/25 Unknown Rx Glucose Test strips) blood-glucose meter #1 ea 02/09/25 Unknown Rx famotidine 20 mg tablet (Pepcid) 20 mg PO BID indigestion #60 tabs 02/09/25 03/06/25 Rx lancets #200 ea 02/09/25 Unknown Rx Allergy/AdvReac Type Severity Reaction Status Date / Time No Known Allergies Allergy Verified 03/15/25 02:42 Family History Grandfather Diabetes CVA (cerebral vascular accident) Grandmother Diabetes Mother Depression Brother Tachycardia Grandmother Thyroid disorder Anxiety Surgical History History of wisdom tooth extraction History of shoulder surgery Social History adopted: No household members: spouse number of children: 0 current occupational status: employed current occupation: current occupational exposures/hazards: No pets and animals: Yes pets and animals: dog(s) history of recent travel: Yes (July 2024 - ) out of state: Yes out of country: No sexually active: Yes Smoking Status: Former smoker quit date: 11/30/23 second hand exposure: No quit status: quit date established alcohol intake: current alcohol intake frequency: holidays/special occasions only details: Not while substance use type: former substance user Date of last use: 2021 well-balanced diet: daily or most days caffeine: Yes Type: coffee eating out: 1-3 times/week during the past year weight has: remained stable what type of physical activity do you participate in: none puma/evangelical: Judaism seatbelt use: always do you feel safe at home: Yes 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 [employer] Discharge Plan Triage Chief Complaint: Shortness of Breath ED Provider: Provider,Ed Physician Dx/Rx/DC Orders Prescriptions: No Action DHA 200 mg capsule 200 mg PO DAILY fluoxetine [Prozac] 40 mg capsule 60 mg PO QDAY levocetirizine 5 mg tablet 5 mg PO QDAY lurasidone [Latuda] 20 mg tablet 20 mg PO QDAY Rx Instructions: must administer with food (at least 350 calories) famotidine [Pepcid] 20 mg tablet 20 mg PO BID Qty: 60 6RF promethazine 25 mg suppository 25 mg NM Q6H PRN (Reason: nausea and vomiting) Qty: 12 0RF ondansetron 4 mg tablet,disintegrating 4 mg PO Q8H PRN (Reason: nausea and vomiting) Qty: 30 4RF promethazine 12.5 mg tablet 12.5 mg PO Q6H PRN (Reason: nausea and vomiting) 30 Days Qty: 120 3RF prochlorperazine maleate [Compazine] 10 mg tablet 10 mg PO Q8H PRN (Reason: nausea and vomiting) Qty: 90 3RF (DME) FreeStyle Lucio 2 Sensor Kit See Rx Instructions .Route Qty: 1 8RF Rx Instructions: As directed (DME) FreeStyle Lucio 2 [place] Misc See Rx Instructions .Route Qty: 1 0RF Rx Instructions: As directed (DME) Blood Glucose Test Strip See Rx Instructions .MEDSUPPLY Qty: 120 5RF Rx Instructions: As directed-fasting & 2 hr post meals (DME) blood-glucose meter Misc See Rx Instructions .MEDSUPPLY Qty: 1 0RF Rx Instructions: As directed- Test fasting and 2 hours after meals (DME) lancets Misc See Rx Instructions .MEDSUPPLY Qty: 200 5RF Rx Instructions: As directed-fasting & 2 hr post meals metoclopramide HCl [Reglan] 10 mg tablet 10 mg PO TID Qty: 90 3RF Primary Care Provider: Taiwo Conde Referrals: Taiwo Conde DO [Primary Care Provider, Family Practice] Print Language: [place]
[2025-03-15 03:44] LABS: Hematocrit 24.0 % (37-47); Hemoglobin 8.1 g/dL (12.0-15.0); Immature Granulocytes Count 0.140 X10^3/uL (0.0-0.0); Mean Corp Hgb Conc 33.8 g/dL (32-36); Mean Corpuscular Volume 91.3 fL (81-99); Mean Platelet Vol. 10.7 fl (6.2-12.0); NRBC Flagged by Analyzer 1.7 % (0-5); Platelet Count 240 K/mm3 (150-450); RBC Distribution Width CV 13.7 % (11.6-14.6); RBC Distribution Width SD 44.5 fl (35.1-43.9); Red Blood Count 2.63 M/mm3 (4.2-5.4); White Blood Count 10.0 K/mm3 (4.4-11.0)
[2025-03-15 04:01] LABS: D-Dimer Quantitative (DVT/PE) 2.64 FEU/ug/m (0.27-0.49)
--- NOTE | 2025-03-15 04:03 | CT_ITS ---
PROCEDURE: CTA CHEST W/WO CONTRAST 03/15/2025 REASON FOR EXAM: R/O PULMONARY EMBOLISM TECHNIQUE: Procedure Code: CTCTACHWW Modality: CT Procedure: CTA CHEST W/WO CONTRAST Multiplanar Sagittal and Coronal images were obtained. CONTRAST: Isovue 370 VOLUME: 100 mL One or more dose reduction techniques were used (e.g., Automated exposure control, adjustment of the mA and/or kV according to patient size, use of iterative reconstruction technique). RADIATION DOSE SUMMARY: CTDlvol: 15.28 mGy DLP: 561 mGycm COMPARISON: None. FINDINGS: Minimal bilateral pleural effusions. Passive atelectatic airspace disease of the lower lobes. Mild interstitial pulmonary congestion. Normal enhancement of the main pulmonary artery and right and left pulmonary arteries. Normal enhancement of the bilateral peripheral pulmonary arteries. There is no demonstrated pulmonary embolism. Normal thoracic aorta and visualized great vessels. There is no demonstrated aortic dissection. Normal heart and pericardium. Normal mediastinum. Normal hilar regions. Normal visualized trachea and bronchi. Normal chest wall structures. Normal osseous structures. Normal visualized upper abdomen. CT/CTA Chest W/WO Contrast IMPRESSION: No demonstrated pulmonary embolism or arterial dissection. Minimal bilateral pleural effusions. Passive atelectatic airspace disease of the lower lobes. Mild interstitial pulmonary congestion. Reading Location: [place] [id number]
--- NOTE | 2025-03-15 04:03 | CT_ITS ---
PROCEDURE: CTA CHEST W/WO CONTRAST 03/15/2025 REASON FOR EXAM: R/O PULMONARY EMBOLISM TECHNIQUE: Procedure Code: CTCTACHWW Modality: CT Procedure: CTA CHEST W/WO CONTRAST Multiplanar Sagittal and Coronal images were obtained. CONTRAST: Isovue 370 VOLUME: 100 mL One or more dose reduction techniques were used (e.g., Automated exposure control, adjustment of the mA and/or kV according to patient size, use of iterative reconstruction technique). RADIATION DOSE SUMMARY: CTDlvol: 15.28 mGy DLP: 561 mGycm COMPARISON: None. FINDINGS: Minimal bilateral pleural effusions. Passive atelectatic airspace disease of the lower lobes. Mild interstitial pulmonary congestion. Normal enhancement of the main pulmonary artery and right and left pulmonary arteries. Normal enhancement of the bilateral peripheral pulmonary arteries. There is no demonstrated pulmonary embolism. Normal thoracic aorta and visualized great vessels. There is no demonstrated aortic dissection. Normal heart and pericardium. Normal mediastinum. Normal hilar regions. Normal visualized trachea and bronchi. Normal chest wall structures. Normal osseous structures. Normal visualized upper abdomen. CT/CTA Chest W/WO Contrast IMPRESSION: No demonstrated pulmonary embolism or arterial dissection. Minimal bilateral pleural effusions. Passive atelectatic airspace disease of the lower lobes. Mild interstitial pulmonary congestion. Reading Location: [place] [id number]
[2025-03-15] MEDS: NIFEdipine 30 MG Tablet PO (04:13)
[2025-03-15 04:21] LABS: Prothrombin Time (Protime)PT. 12.3 SECONDS (11.7-14.9)
[2025-03-15 04:22] LABS: Fibrinogen 403 mg/dl (203-444); Partial Thromboplast Time 22.5 Seconds (24.1-36.2)
[2025-03-15 04:53] LABS: AST(SGOT) 56 U/L (<=31); Alanine Aminotransfer ALT/SGPT 49 U/L (<=34); Albumin, Serum 3.1 g/dL (3.5-5.0); Alkaline Phosphatase 107 U/L (35-104); Anion Gap 12 (5-15); BUN 7 mg/dL (4-19); BUN/Creat Ratio 10.5 RATIO (10-20); Calcium,Total 9.4 mg/dL (7.6-11.0); Carbon Dioxide 22.7 mmol/L (21.0-32.0); Chloride 105 mmol/L (98-108); Estimated Creatinine Clearance 171.37 ml/min (50-250); Globulin 2.5 g/dL (2.2-4.2); Glucose 84 mg/dL (70-99); Potassium 3.9 mmol/L (3.3-5.1)
[2025-03-15 06:38] LABS: Pro- Brain NATRIURETIC PEPTIDE 641 pg/mL (<=450)
[2025-03-15] MEDS: Furosemide 20 MG/2 ML VIAL 10 MG IV ×2 (06:41→08:12)
--- NOTE | 2025-03-15 06:51 | EKG12_ITS ---
Test Reason : O Blood Pressure : */* mmHG Vent. Rate : 63 BPM Atrial Rate : 63 BPM P-R Int : 112 ms QRS Dur : 76 ms QT Int : 424 ms P-R-T Axes : 38 47 63 degrees QTcB Int : 433 ms Normal sinus rhythm Normal ECG When compared with ECG of 28-Nov-2020 10:13, No significant change was found Confirmed by NITO CARPENTER, FERMIN ([id number]), editorial project manager VIN SNYDER ([id number]) on 03/16/2025 6:27:49 AM Referred By: Tiera Mcfarland Confirmed By: FERMIN BEAUCHAMP MD
--- NOTE | 2025-03-15 06:51 | EKG12_ITS ---
Test Reason : O Blood Pressure : */* mmHG Vent. Rate : 63 BPM Atrial Rate : 63 BPM P-R Int : 112 ms QRS Dur : 76 ms QT Int : 424 ms P-R-T Axes : 38 47 63 degrees QTcB Int : 433 ms Normal sinus rhythm Normal ECG When compared with ECG of 28-Nov-2020 10:13, No significant change was found Confirmed by NITO CARPENTER, FERMIN ([id number]), editor school photograph VIN SNYDER ([id number]) on 03/16/2025 6:27:49 AM Referred By: Tiera Mcfarland Confirmed By: FERMIN BEAUCHAMP MD
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
--- NOTE | 2025-03-15 07:18 | ECHOD_ITS ---
Reason For Study Reason For Study: CHF Procedure This was a 2D Doppler, Color Flow transthoracic echocardiogram. The study was technically difficult. The patient was scanned supine. Due to stomach cramping. Exam performed portable in patient room. Left Ventricle Normal LV size. The left ventricular ejection fraction is 60 %. No regional wall motion abnormalities noted. Right Ventricle Normal RV size. Normal systolic function. Atria Normal left atrium. Normal right atrium. Mitral Valve Normal mitral valve. Mild (1+) eccentric mitral valve insufficiency. Tricuspid Valve Normal tricuspid valve. Mild (1+) tricuspid valve insufficiency. Pulmonary artery systolic pressure is 30 mmHg. Aortic Valve Normal aortic valve. Trisinus/trileaflet aortic valve. Pulmonic Valve Normal pulmonic valve. Great Vessels Normal aortic root. The pulmonary artery is normal size. Inferior vena cava collapse with respiration. Pericardium/Pleural No pericardial effusion. MMode/2D Measurements & Calculations LVIDd: 5.1 cm IVSd: 0.90 cm Ao root diam: 2.6 cm LVIDs: 3.3 cm LVPWd: 0.92 cm RVDd: 3.1 cm FS: 34.8 % LAV(MOD-bp): 63.5 ml LVAd ap4: 37.7 cm2 LVAd ap2: 33.8 cm2 LAV(MOD-bp) Indexed: 28.7 ml/m2 LVLd ap4: 9.3 cm LVLd ap2: 9.2 cm LAV(MOD-sp2): 52.5 ml EDV(MOD-sp4): 131.5 ml EDV(MOD-sp2): 105.4 ml LAV(MOD-sp4): 73.1 ml EDV(sp4-el): 130.6 ml EDV(sp2-el): 105.8 ml LVAs ap4: 21.0 cm2 LVAs ap2: 18.4 cm2 LVLs ap4: 7.7 cm LVLs ap2: 6.9 cm ESV(MOD-sp4): 50.6 ml ESV(MOD-sp2): 43.6 ml ESV(sp4-el): 48.7 ml ESV(sp2-el): 42.0 ml EF(MOD-sp4): 61.5 % EF(MOD-sp2): 58.6 % EF(sp4-el): 62.7 % SV(MOD-sp4): 80.9 ml SV(MOD-sp2): 61.7 ml SV(sp4-el): 82.0 ml SI(MOD-sp4): 36.6 ml/m2 SI(MOD-sp2): 27.9 ml/m2 LA A4 area: 21.9 cm2 LA dimension(2D): 4.2 cm RA A4 area: 17.7 cm2 TAPSE: 2.2 cm Time Measurements MV dec time: 0.21 sec Doppler Measurements & Calculations MV E max dilshad: 79.3 cm/sec Lat Peak E' Dilshad: 16.1 cm/sec Med Peak E' Dilshad: 14.8 cm/sec MV A max dilshad: 43.7 cm/sec E/E' lat: 4.9 E/E' med: 5.4 MV E/A: 1.8 MV V2 max: 110.5 cm/sec MV P1/2t max dilshad: 112.2 cm/sec Ao V2 max: 157.7 cm/sec MV max P.9 mmHg MV P1/2t: 79.7 msec Ao max P.0 mmHg MV V2 mean: 49.1 cm/sec Ao V2 mean: 97.0 cm/sec MV mean P.2 mmHg MV dec slope: 412.3 cm/sec2 Ao mean P.6 mmHg MV V2 VTI: 27.3 cm MVA(P1/2t): 2.8 cm2 Ao V2 VTI: 29.7 cm AV (velocity ratio): 0.70 LV V1 max: 109.0 cm/sec MR max dilshad: 586.3 cm/sec PA V2 max: 114.0 cm/sec LV V1 max P.8 mmHg MR max P.5 mmHg LV V1 mean P.4 mmHg MR mean dilshad: 481.9 cm/sec LV V1 mean: 72.0 cm/sec MR mean P.9 mmHg LV V1 VTI: 20.7 cm MR VTI: 218.6 cm PI end-d dilshad: 67.9 cm/sec TR max dilshad: 250.1 cm/sec TR max P.0 mmHg ECHO/Echo Complete Interpretation Summary Normal LV size. The left ventricular ejection fraction is 60 %. Pulmonary artery systolic pressure is 30 mmHg. Structurally normal valves. Ordering Physician: Albaro Howard Referring Physician: Tiera Mcfarland Performed By: Donna Garcia, MARTINA, RVT
--- NOTE | 2025-03-15 07:20 | PCM.CONS.C ---
Assessment & Plan Assessment/Plan (1) Shortness of breath: PLAN: Patient presents with shortness of breath likely secondary to congestive heart failure. Will obtain an echocardiogram to assess ventricular function At this particular time I would recommend an additional 10 mg of intravenous Lasix to make a total of 20 mg Monitoring of input and output Depending on the results of the echocardiogram further recommendations will be made (2) Severe pre-eclampsia: PLAN: Blood pressure appears to be improving at this particular time Management as per [employer] PROGRAM[employer]. Continue nifedipine daily for now. HPI Consult Data Date of Consult: 03/15/25 HPI Narrative HPI Narrative: ARIE PADRON, is a 24 F who presents to the hospital 4 days with shortness of breath pedal edema which was worse than a few days prior. She had a history of preeclampsia and delivered 4 days ago was noted to have elevated blood pressures and some pedal edema. A D-dimer was ordered which was elevated and a CT scan was obtained which demonstrated bilateral pleural effusions. Natruretic peptide was ordered which was also elevated cardiology was consulted for further evaluation and management. She denies any chest pain she does have shortness of breath she has minimal paroxysmal nocturnal dyspnea her was otherwise unremarkable except for the last few weeks and she tells me she does not have a significant family history of heart disease. EKG done today demonstrates sinus bradycardia with no acute changes. The patient was administered 10 mg of intravenous Lasix as well as Procardia 30 mg with the option to give labetalol 20 mg as needed with parameters for elevated blood pressure. At this particular time her blood pressure is markedly improved and is 131/85. [ ] [facility] Medical History Bipolar disorder Eating disorder Generalized anxiety disorder Hx of thoracic outlet syndrome Home Medications ?Medication ?Instructions ?Recorded ?Last Taken ?Type docosahexaenoic acid 200 mg 200 mg PO DAILY 08/12/24 03/09/25 History capsule ( DHA) fluoxetine 40 mg capsule (Prozac) 60 mg PO QDAY mental health 08/12/24 03/10/25 History levocetirizine 5 mg tablet 5 mg PO QDAY 08/12/24 03/10/25 History lurasidone 20 mg tablet (Latuda) 20 mg PO QDAY 08/12/24 03/09/25 History ondansetron 4 mg disintegrating 4 mg PO Q8H PRN nausea and 08/22/24 03/10/25 Rx tablet vomiting #30 tabs famotidine 20 mg tablet (Pepcid) 20 mg PO BID indigestion #60 tabs 02/09/25 03/06/25 Rx Allergy/AdvReac Type Severity Reaction Status Date / Time No Known Allergies Allergy Verified 03/15/25 02:42 Family History Grandfather Diabetes CVA (cerebral vascular accident) Grandmother Diabetes Mother Depression Brother Tachycardia Grandmother Thyroid disorder Anxiety Surgical History History of wisdom tooth extraction History of shoulder surgery Social History adopted: No household members: spouse number of children: 0 current occupational status: employed current occupation: [employer] current occupational exposures/hazards: No pets and animals: Yes pets and animals: dog(s) history of recent travel: Yes (July 2024 - ) out of state: Yes out of country: No sexually active: Yes Smoking Status: Former smoker quit date: 11/30/23 second hand exposure: No quit status: quit date established alcohol intake: current alcohol intake frequency: holidays/special occasions only details: Not while substance use type: former substance user Date of last use: 2021 well-balanced diet: daily or most days caffeine: Yes Type: coffee eating out: 1-3 times/week during the past year weight has: remained stable what type of physical activity do you participate in: none puma/tenriism: [employer] seatbelt use: always do you feel safe at home: Yes additional 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 history: : [employer]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 [employer] ROS Constitutional Constitutional: Denies fever(s) or weight loss Eyes Eyes: Reports systems reviewed and no addt'l complaints, except as documented ENT HEENT: Reports systems reviewed and no addt'l complaints, except as documented Cardiovascular Cardiovascular: Reports dyspnea at rest, dyspnea on exertion and edema; Denies chest pain at rest, chest pain with activity, palpitations or paroxysmal nocturnal dyspnea Respiratory/Chest Respiratory/Chest: Denies dyspnea on exertion, productive cough, shortness of breath at rest or shortness of breath with exertion Gastrointestinal Gastrointestinal: Denies change in bowel habits, nausea, vomiting or weight changes Genitourinary Genitourinary: Denies difficulty urinating Musculoskeletal Musculoskeletal: Denies joint stiffness or muscle weakness Integumentary Integumentary: Denies lesions Neurologic Neurologic: Denies dizziness or syncope Psychiatric Psychiatric: Denies anxiety Endocrine Endocrinology: Denies excessive sweating or fatigue Hematologic/Lymphatic Hematologic/Lymphatic: Denies anemia Allergic/Immunologic Allergic/Immunologic: Denies seasonal rhinorrhea Physical Exam Const alert and oriented x3 HEENT normocephalic Eyes PERRL Neck Carotids: normal carotid upstroke Chest inspection of chest normal Cardio regular rate Rate: regular rate and bradycardia Extremity General Extremity: edema bilateral Objective Data Vital Signs: Vital Signs Temp Pulse Resp BP Pulse Ox O2 Del Method 97.7 F L 85 18 131/85 H 100 Room Air 03/15/25 06:30 03/15/25 06:30 03/15/25 06:30 03/15/25 06:30 03/15/25 06:30 03/15/25 06:30 Oxygen Delivery Method Room Air Weight: 240 lb Body Mass Index (BMI) 36.5 Lab / Micro Data Attestation: I reviewed the patient's lab results. 03/15/25 03:30 03/15/25 03:30 Labs: Laboratory Results - last 24 hr 03/15/25 03:30: WBC 10.0, RBC 2.63 L, Hgb 8.1 L, Hct 24.0 L, MCV 91.3, MCH 30.8, MCHC 33.8, RDW Std Deviation 44.5 H, RDW Coeff of Rosy 13.7, Plt Count 240, MPV 10.7, Immature Gran % (Auto) 1.400 H, Neut % (Auto) 66.7, Lymph % (Auto) 20.9, [place] % (Auto) 6.6, Eos % (Auto) 4.0, Baso % (Auto) 0.4, Absolute Neuts (auto) 6.7, Absolute Lymphs (auto) 2.09, Nucleated RBC % 1.7, PT 12.3, INR 0.9, APTT 22.5 L, Fibrinogen 403, D-Dimer Quant (PE/DVT) 2.64 H*, Sodium 140, Potassium 3.9, Chloride 105, Carbon Dioxide 22.7, Anion Gap 12, BUN 7, Creatinine 0.66 L, Estim Creat Clear Calc 171.37, Est GFR (MDRD) Non-Af 127, BUN/Creatinine Ratio 10.5, Glucose 84, Calcium 9.4, Total Bilirubin 0.18, AST 56 H, ALT 49 H, Alkaline Phosphatase 107 H, NT pro BNP II 641 H, Total Protein 5.6 L, Albumin 3.1 L, Globulin 2.5, Albumin/Globulin Ratio 1.2 Cardiology Labs/Tests 03/15/25 03:30: WBC 10.0, RBC 2.63 L, Hgb 8.1 L, Hct 24.0 L, MCV 91.3, MCH 30.8, MCHC 33.8, Plt Count 240, MPV 10.7, Immature Gran % (Auto) 1.400 H, Neut % (Auto) 66.7, Lymph % (Auto) 20.9, [place] % (Auto) 6.6, Eos % (Auto) 4.0, Baso % (Auto) 0.4, Absolute Neuts (auto) 6.7, Nucleated RBC % 1.7, PT 12.3, INR 0.9, APTT 22.5 L, D-Dimer Quant (PE/DVT) 2.64 H*, Sodium 140, Potassium 3.9, Chloride 105, Carbon Dioxide 22.7, Anion Gap 12, BUN 7, Creatinine 0.66 L, Est GFR (MDRD) Non-Af 127, BUN/Creatinine Ratio 10.5, Glucose 84, Calcium 9.4, Total Bilirubin 0.18 Rhythm: EKG: Sinus bradycardia with no acute changes ECHO: Stress Test: Cardiac Cath: PCI: CT Surgery: Holter monitor: EPS: PPM: CXR: Chest CT Scan: Radiography Diagnostic Testing: Radiology Impression Chest CTA 03/15/25 04:03 IMPRESSION: No demonstrated pulmonary embolism or arterial dissection. Minimal bilateral pleural effusions. Passive atelectatic airspace disease of the lower lobes. Mild interstitial pulmonary congestion. Reading Location: [place] [id number] [address] Risk Score for UA/STEMI Assesmment (YES = 1) Risk Stratification Applicable: No
--- NOTE | 2025-03-15 07:20 | PCM.CONS.C ---
Assessment & Plan Assessment/Plan (1) Shortness of breath: PLAN: Patient presents with shortness of breath likely secondary to congestive heart failure. Will obtain an echocardiogram to assess ventricular function At this particular time I would recommend an additional 10 mg of intravenous Lasix to make a total of 20 mg Monitoring of input and output Depending on the results of the echocardiogram further recommendations will be made (2) Severe pre-eclampsia: PLAN: Blood pressure appears to be improving at this particular time Management as per [facility] EMT. Continue nifedipine daily for now. HPI Consult Data Date of Consult: 03/15/25 HPI Narrative HPI Narrative: ARIE PADRON, is a 24 F who presents to the hospital 4 days with shortness of breath pedal edema which was worse than a few days prior. She had a history of preeclampsia and delivered 4 days ago was noted to have elevated blood pressures and some pedal edema. A D-dimer was ordered which was elevated and a CT scan was obtained which demonstrated bilateral pleural effusions. Natruretic peptide was ordered which was also elevated cardiology was consulted for further evaluation and management. She denies any chest pain she does have shortness of breath she has minimal paroxysmal nocturnal dyspnea her was otherwise unremarkable except for the last few weeks and she tells me she does not have a significant family history of heart disease. EKG done today demonstrates sinus bradycardia with no acute changes. The patient was administered 10 mg of intravenous Lasix as well as Procardia 30 mg with the option to give labetalol 20 mg as needed with parameters for elevated blood pressure. At this particular time her blood pressure is markedly improved and is 131/85. [ ] [facility] Medical History Bipolar disorder Eating disorder Generalized anxiety disorder Hx of thoracic outlet syndrome Home Medications ?Medication ?Instructions ?Recorded ?Last Taken ?Type docosahexaenoic acid 200 mg 200 mg PO DAILY 08/12/24 03/09/25 History capsule ( DHA) fluoxetine 40 mg capsule (Prozac) 60 mg PO QDAY mental health 08/12/24 03/10/25 History levocetirizine 5 mg tablet 5 mg PO QDAY 08/12/24 03/10/25 History lurasidone 20 mg tablet (Latuda) 20 mg PO QDAY 08/12/24 03/09/25 History ondansetron 4 mg disintegrating 4 mg PO Q8H PRN nausea and 08/22/24 03/10/25 Rx tablet vomiting #30 tabs famotidine 20 mg tablet (Pepcid) 20 mg PO BID indigestion #60 tabs 02/09/25 03/06/25 Rx Allergy/AdvReac Type Severity Reaction Status Date / Time No Known Allergies Allergy Verified 03/15/25 02:42 Family History Grandfather Diabetes CVA (cerebral vascular accident) Grandmother Diabetes Mother Depression Brother Tachycardia Grandmother Thyroid disorder Anxiety Surgical History History of wisdom tooth extraction History of shoulder surgery Social History adopted: No household members: spouse number of children: 0 current occupational status: employed current occupation: [employer] current occupational exposures/hazards: No pets and animals: Yes pets and animals: dog(s) history of recent travel: Yes (July 2024 - ) out of state: Yes out of country: No sexually active: Yes Smoking Status: Former smoker quit date: 11/30/23 second hand exposure: No quit status: quit date established alcohol intake: current alcohol intake frequency: holidays/special occasions only details: Not while substance use type: former substance user Date of last use: 2021 well-balanced diet: daily or most days caffeine: Yes Type: coffee eating out: 1-3 times/week during the past year weight has: remained stable what type of physical activity do you participate in: none puma/uatsdin: Faith seatbelt use: always do you feel safe at home: Yes additional social history: : Asa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 [place] ROS Constitutional Constitutional: Denies fever(s) or weight loss Eyes Eyes: Reports systems reviewed and no addt'l complaints, except as documented ENT HEENT: Reports systems reviewed and no addt'l complaints, except as documented Cardiovascular Cardiovascular: Reports dyspnea at rest, dyspnea on exertion and edema; Denies chest pain at rest, chest pain with activity, palpitations or paroxysmal nocturnal dyspnea Respiratory/Chest Respiratory/Chest: Denies dyspnea on exertion, productive cough, shortness of breath at rest or shortness of breath with exertion Gastrointestinal Gastrointestinal: Denies change in bowel habits, nausea, vomiting or weight changes Genitourinary Genitourinary: Denies difficulty urinating Musculoskeletal Musculoskeletal: Denies joint stiffness or muscle weakness Integumentary Integumentary: Denies lesions Neurologic Neurologic: Denies dizziness or syncope Psychiatric Psychiatric: Denies anxiety Endocrine Endocrinology: Denies excessive sweating or fatigue Hematologic/Lymphatic Hematologic/Lymphatic: Denies anemia Allergic/Immunologic Allergic/Immunologic: Denies seasonal rhinorrhea Physical Exam Const alert and oriented x3 HEENT normocephalic Eyes PERRL Neck Carotids: normal carotid upstroke Chest inspection of chest normal Cardio regular rate Rate: regular rate and bradycardia Extremity General Extremity: edema bilateral Objective Data Vital Signs: Vital Signs Temp Pulse Resp BP Pulse Ox O2 Del Method 97.7 F L 85 18 131/85 H 100 Room Air 03/15/25 06:30 03/15/25 06:30 03/15/25 06:30 03/15/25 06:30 03/15/25 06:30 03/15/25 06:30 Oxygen Delivery Method Room Air Weight: 240 lb Body Mass Index (BMI) 36.5 Lab / Micro Data Attestation: I reviewed the patient's lab results. 03/15/25 03:30 03/15/25 03:30 Labs: Laboratory Results - last 24 hr 03/15/25 03:30: WBC 10.0, RBC 2.63 L, Hgb 8.1 L, Hct 24.0 L, MCV 91.3, MCH 30.8, MCHC 33.8, RDW Std Deviation 44.5 H, RDW Coeff of Rosy 13.7, Plt Count 240, MPV 10.7, Immature Gran % (Auto) 1.400 H, Neut % (Auto) 66.7, Lymph % (Auto) 20.9, Routt % (Auto) 6.6, Eos % (Auto) 4.0, Baso % (Auto) 0.4, Absolute Neuts (auto) 6.7, Absolute Lymphs (auto) 2.09, Nucleated RBC % 1.7, PT 12.3, INR 0.9, APTT 22.5 L, Fibrinogen 403, D-Dimer Quant (PE/DVT) 2.64 H*, Sodium 140, Potassium 3.9, Chloride 105, Carbon Dioxide 22.7, Anion Gap 12, BUN 7, Creatinine 0.66 L, Estim Creat Clear Calc 171.37, Est GFR (MDRD) Non-Af 127, BUN/Creatinine Ratio 10.5, Glucose 84, Calcium 9.4, Total Bilirubin 0.18, AST 56 H, ALT 49 H, Alkaline Phosphatase 107 H, NT pro BNP II 641 H, Total Protein 5.6 L, Albumin 3.1 L, Globulin 2.5, Albumin/Globulin Ratio 1.2 Cardiology Labs/Tests 03/15/25 03:30: WBC 10.0, RBC 2.63 L, Hgb 8.1 L, Hct 24.0 L, MCV 91.3, MCH 30.8, MCHC 33.8, Plt Count 240, MPV 10.7, Immature Gran % (Auto) 1.400 H, Neut % (Auto) 66.7, Lymph % (Auto) 20.9, Routt % (Auto) 6.6, Eos % (Auto) 4.0, Baso % (Auto) 0.4, Absolute Neuts (auto) 6.7, Nucleated RBC % 1.7, PT 12.3, INR 0.9, APTT 22.5 L, D-Dimer Quant (PE/DVT) 2.64 H*, Sodium 140, Potassium 3.9, Chloride 105, Carbon Dioxide 22.7, Anion Gap 12, BUN 7, Creatinine 0.66 L, Est GFR (MDRD) Non-Af 127, BUN/Creatinine Ratio 10.5, Glucose 84, Calcium 9.4, Total Bilirubin 0.18 Rhythm: EKG: Sinus bradycardia with no acute changes ECHO: Stress Test: Cardiac Cath: PCI: CT Surgery: Holter monitor: EPS: PPM: CXR: Chest CT Scan: Radiography Diagnostic Testing: Radiology Impression Chest CTA 03/15/25 04:03 IMPRESSION: No demonstrated pulmonary embolism or arterial dissection. Minimal bilateral pleural effusions. Passive atelectatic airspace disease of the lower lobes. Mild interstitial pulmonary congestion. Reading Location: [place] [id number] [address] Risk Score for UA/STEMI Assesmment (YES = 1) Risk Stratification Applicable: No
[2025-03-15 11:56] LABS: Hematocrit 25.7 % (37-47); Hemoglobin 8.7 g/dL (12.0-15.0); Immature Granulocytes Count 0.130 X10^3/uL (0.0-0.0); Mean Corp Hgb Conc 33.9 g/dL (32-36); Mean Corpuscular Volume 90.8 fL (81-99); Mean Platelet Vol. 10.6 fl (6.2-12.0); NRBC Flagged by Analyzer 1.7 % (0-5); Platelet Count 285 K/mm3 (150-450); RBC Distribution Width CV 13.6 % (11.6-14.6); RBC Distribution Width SD 45.0 fl (35.1-43.9); Red Blood Count 2.83 M/mm3 (4.2-5.4); White Blood Count 10.6 K/mm3 (4.4-11.0)
[2025-03-15 12:34] LABS: AST(SGOT) 61 U/L (<=31); Alanine Aminotransfer ALT/SGPT 53 U/L (<=34); Albumin, Serum 3.3 g/dL (3.5-5.0); Alkaline Phosphatase 116 U/L (35-104); Anion Gap 12 (5-15); BUN 7 mg/dL (4-19); BUN/Creat Ratio 10.1 RATIO (10-20); Calcium,Total 9.1 mg/dL (7.6-11.0); Carbon Dioxide 27.3 mmol/L (21.0-32.0); Chloride 100 mmol/L (98-108); Estimated Creatinine Clearance 166.33 ml/min (50-250); Globulin 2.9 g/dL (2.2-4.2); Glucose 90 mg/dL (70-99); Potassium 3.7 mmol/L (3.3-5.1)
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
== END 2025-03-15 18:01 | disposition home or self-care (01) ==
LOC: WPOUT 06:35 → WP 07:10
PROVIDERS: Admitting Provider Obstetrics & Gynecology; PCP Family Medicine; Referring Provider Obstetrics & Gynecology; Visit Provider Obstetrics & Gynecology
DX: O14.15 Severe pre-eclampsia, complicating the puerperium (principal); F31.9 Bipolar disorder, unspecified; Z87.891 Personal history of nicotine dependence; O99.53 Diseases of the respiratory system complicating the puerperium; J90 Pleural effusion, not elsewhere classified; Z79.899 Other long term (current) drug therapy; O99.345 Other mental disorders complicating the puerperium; F41.1 Generalized anxiety disorder; J98.11 Atelectasis; R06.02 Shortness of breath
CPT/HCPCS: 36415; 71275; 80053; 83880; 85025; 85379; 85384; 85610; 85730; 93005; 93306; 96374; 96376; 99221; Q9967; G0378; J1938

== ENCOUNTER → 2025-03-16 | Outpatient (CLI) | payer BC, SELFPAY ==
[2025-03-16 12:16] LABS: AST(SGOT) 41 U/L (<=31); Alanine Aminotransfer ALT/SGPT 43 U/L (<=34); Albumin, Serum 3.3 g/dL (3.5-5.0); Alkaline Phosphatase 111 U/L (35-104); Anion Gap 12 (5-15); BUN 8 mg/dL (4-19); BUN/Creat Ratio 11.1 RATIO (10-20); Calcium,Total 9.3 mg/dL (7.6-11.0); Carbon Dioxide 24.7 mmol/L (21.0-32.0); Chloride 102 mmol/L (98-108); Globulin 2.8 g/dL (2.2-4.2); Glucose 92 mg/dL (70-99); Potassium 4.5 mmol/L (3.3-5.1)
== END | disposition home or self-care (01) ==
LOC: LAB 09:54
PROVIDERS: PCP Family Medicine; Referring Provider Nurse Practitioner Women's Health; Visit Provider Nurse Practitioner Women's Health
DX: R74.8 Abnormal levels of other serum enzymes (principal)
CPT/HCPCS: 36415; 80053

== ENCOUNTER → 2025-03-23 | Outpatient (CLI) | payer BC, SELFPAY ==
[2025-03-23 17:28] LABS: AST(SGOT) 33 U/L (<=31); Alanine Aminotransfer ALT/SGPT 37 U/L (<=34); Albumin, Serum 4.0 g/dL (3.5-5.0); Alkaline Phosphatase 115 U/L (35-104); Anion Gap 11 (5-15); BUN 9 mg/dL (4-19); BUN/Creat Ratio 11.1 RATIO (10-20); Calcium,Total 9.4 mg/dL (7.6-11.0); Carbon Dioxide 24.6 mmol/L (21.0-32.0); Chloride 103 mmol/L (98-108); Globulin 3.2 g/dL (2.2-4.2); Glucose 86 mg/dL (70-99); Potassium 4.2 mmol/L (3.3-5.1)
== END | disposition home or self-care (01) ==
PROVIDERS: Obstetrics & Gynecology; PCP Family Medicine; Visit Provider Advanced Practice Midwife
DX: R74.8 Abnormal levels of other serum enzymes (principal)
CPT/HCPCS: 80053

== ENCOUNTER → 2025-04-19 | Outpatient (CLI) | payer BC, SELFPAY | END | disposition home or self-care (01) | LOC: LABSPEC 16:32 | PROVIDERS: PCP Family Medicine; Visit Provider Advanced Practice Midwife | DX: R30.0 Dysuria (principal) | CPT/HCPCS: 87086; 87088 ==

== ENCOUNTER 2025-05-26 03:06 | Emergency (ER) | payer BC, SELFPAY ==
[2025-05-26 03:08] VITALS: BP 128/76; PULSE 115; RESP 18; TEMP 38.9; O2SAT 98; BMI 31.1
[2025-05-26 03:11] VITALS: BP 128/76; PULSE 116; RESP 18; TEMP 38.8; O2SAT 99
--- OUTSIDE RECORDS SUMMARY | 2025-05-26 03:39 | XMS RPT_ITS | CCD ---
Author Organization [facility] Care Team Providers Care Assistant Front Desk Manager Name Role Phone Unavailable Primary Care Provider Unavailabl e Marie Carrillo DO Unavailable Bertha Wood Primary Care Provider Marie Carrillo DO Unavailable Bertha Wood Cathy Primary Care Provider [phone] MIKE CEBALLOS Attending Unavailable JOANTHONYIFF, BERTHA CATHY Primary Care Unavailable MIKE CEBALLOS Attending Unavailable DELL ALONSO Referring Unavailable JOLLIFF, BERTHA CATHY Primary Care Unavailable MIKE CEBALLOS Referring Unavailable JOLLIFF, BERTHA CATHY Primary Care Unavailable MIKE CEBALLOS Attending Unavailable JOLLIFF, BERTHA CATHY Primary Care Unavailable KHUSHBU, CHRISTIANNE Referring Unavailable JOLLIFF, BERTHA CATHY Primary Care Unavailable PLOTFRANCISCO J, CHRISTIANNE Referring Unavailable JOLLIFF, BERTHA CATHY Primary Care Unavailable PLOTTS, CHRISTIANNE Referring Unavailable JOLLIFF, BERTHA CATHY Primary Care Unavailable PLOTFRANCISCO J CHRISTIANNE Attending Unavailable JOLLIFF, BERTHA CATHY Primary Care Unavailable NAVDEEP JEFFREY Referring Unavailable JOLLIFF, BERTHA S Primary Care Unavailable MARTINE LLANES Attending Unavailable SUNDEEP SHER A Primary Care Unavailable BABAR NICOLAS Attending Unavailable FREDDIE CHAHAL Referring Unavailable NAVDEEP JEFFREY Referring Unavailable CHRISTOSSUNDEEP MONAE A Primary Care Unavailable FREDDIE CHAHAL Attending Unavailable NAVDEEP JEFFREY Referring Unavailable CHRISTOSSUNDEEP MONAE A Primary Care Unavailable FLORY DE LEON Referring Unavailab HENRI Villarreal Attending Unavailable CHRISTOSSUNDEEP MONAE A Primary Care Unavailable NAVDEEP JEFFREY Attending Unavailable NAVDEEP JEFFREY Referring Unavailable CHRISTOSSUNDEEP MONAE A Primary Care Unavailable NAVDEEP JEFFREY Referring Unavailable CHRISTOSSUNDEEP MONAE A Primary Care Unavailable FREDDIE CHAHAL Attending Unavailable NAVDEEP JEFFREY S Attending Unavailable JOLLIFF, BERTHA S Referring Unavailable JOLLIFF, BERTHA S Primary Care Unavailable Christos, Sundeep Primary Care Unavailable Vande Velshelley, Flory Referring Unavailabl e Vande Velde, Flory Admitting Unavailabl e Vande Velde, Flory Attending Unavailabl e Navdeep Jeffrey Referring Unavailable DaltonNavdeep Attending Unavailable Jolliff, Bertha S Primary Care Unavailable Angela Vigil Referring Unavailable Angela Vigil Attending Unavailable Christos, Sundeep Primary Care Unavailable Christos, Sundeep Primary Care Unavailable Navdeep Jeffrey Referring Unavailable Navdeep Jeffrey Attending Unavailable Vande Velshelley, Flory Admitting Unavailabl e Christos, Sundeep Referring Unavailable Tiera Mcfarland Attending Unavailable Christos, Sundeep Primary Care Unavailable Christos, Sundeep Referring Unavailable Christos, Sundeep Primary Care Unavailable Burton MACHINE ADJUSTER LEADER CASE TRIM, Nohemi Attending Unavailable Tiera Mcfarland Attending Unavailable Jolliff, Bertha S Primary Care Unavailable Jolliff, Bertha S Referring Unavailable Tiera Mcfarland Attending Unavailable Jolliff, Bertha S Primary Care Unavailable Jolliff, Bertha S Referring Unavailable Christos, Sundeep Primary Care Unavailable Flory Leigh Attending Unavailabl e Tiera Mcfarland Attending Unavailable Christos, Sundeep Primary Care Unavailable Tiera Mcfarland Attending Unavailable Christos, Sundeep Primary Care Unavailable HunteronyTiera Referring Unavailable Christos, Sundeep Primary Care Unavailable Deniz Hopkins Attending Unavailable Navdeep Jeffrey Referring Unavailable Christos, Sundeep Primary Care Unavailable Navdeep Jeffrey Attending Unavailable Christos, Sundeep Primary Care Unavailable Burton MACHINE ADJUSTER LEADER CASE TRIMNohemi Referring Unavailable Burton MACHINE ADJUSTER LEADER CASE TRIMNohemi Attending Unavailable Christos, Sundeep Primary Care Unavailable Navdeep Jeffrey Attending Unavailable Dalton Navdeep Referring Unavailable Navdeep Jeffrey Attending Unavailable Jolliff, Bertha S Primary Care Unavailable Tiera Mcfarland Attending Unavailable Jolliff, Bertha S Primary Care Unavailable Tiera Mcfarland Referring Unavailable Tiera Mcfarland Attending Unavailable Jolliff, Bertha S Primary Care Unavailable Tiera Mcfarland Referring Unavailable Christos, Sundeep Primary Care Unavailable Adán Sanabria Attending Unavailable Christos, Sundeep Primary Care Unavailable Ray Lopez, Flory Attending Unavailabl e Vande Velshelley, Flory Referring Unavailabl e Markie Quiros Attending Unavailabl e Christos, Sundeep Primary Care Unavailable Christos, Sundeep Primary Care Unavailable Christos, Sundeep Referring Unavailable Vande VeldeFlory Attending Unavailabl e Christos, Sundeep Referring Unavailable Christos, Sundeep Primary Care Unavailable Vande Velde, Flory Attending Unavailabl e Christos, Sundeep Referring Unavailable Christos, Sundeep Primary Care Unavailable Navdeep Jeffrey Attending Unavailable Angela Vigil Attending Unavailable Jolliff, Betrha S Referring Unavailable Jolliff, Bertha S Primary Care Unavailable Navdeep Jeffrey Attending Unavailable Jolliff, Bertha S Primary Care Unavailable Jolliff, Bertha S Referring Unavailable Jolliff, Bertha S Primary Care Unavailable Vande John, Flory Attending Unavailabl e Jolliff, Bertha S Referring Unavailable Navdeep Jeffrey Attending Unavailable Jolliff, Bertha S Referring Unavailable Jolliff, Bertha S Primary Care Unavailable Christos, Sundeep Primary Care Unavailable Jolliff, Bertha S Referring Unavailable Vande Flory Lopez Attending Unavailabl e Christos, Sundeep Primary Care Unavailable Jolliff, Bertha S Referring Unavailable Burton MACHINE ADJUSTER LEADER CASE TRIM, Nohemi Attending Unavailable Navdeep Jeffrey Referring Unavailable Christos, Sundeep Primary Care Unavailable Navdeep Jeffrey Attending Unavailable Navdeep Jeffrey Consulting Unavailable Vande Velde, Flory Admitting Unavailabl e Christos, Sundeep Primary Care Unavailable Tiera Mcfarland Attending Unavailable Vande Velde, Flory Admitting Unavailabl e Vande Velde, Flory Consulting Unavailabl e Vande Velde, Flory Referring Unavailabl e Christos, Sundeep Primary Care Unavailable Vande Velde, Flory Referring Unavailabl e Vande Velde, Flory Admitting Unavailabl e Vande Velde, Flory Attending Unavailabl e Vande Velde, Flory Consulting Unavailabl e Christos, Sundeep Primary Care Unavailable Adán Sanabria Attending Unavailable Adán Sanabria Consulting Unavailable Christos, Sundeep Primary Care Unavailable Adán Sanabria Consulting Unavailable Adán Sanabria Attending Unavailable Tiera Mcfarland Attending Unavailable Tiera Mcfarland Consulting Unavailable Christos, Sundeep Primary Care Unavailable Tiera Mcfarland Referring Unavailable Vande VeldeFlory Attending Unavailabl e Christos, Sundeep Primary Care Unavailable Vande Velde, Flory Attending Unavailabl e Vande Velde, Flory Consulting Unavailabl e Vande Velde, Flory Referring Unavailabl e Marcanthony, Tiera Admitting Unavailable Marcanthony, Tiera Referring Unavailable Marcanthony, Tiera Attending Unavailable Marcanthony, Tiera Consulting Unavailable Christos, Sundeep Primary Care Unavailable Jolliff, Bertha S Primary Care Unavailable Jolliff, Bertha S Attending Unavailable Christos, Sundeep Primary Care Unavailable Lee, [place] Attending Unavailable Minoo Arredondo Attending Unavailable Jolliff, Bertha S Primary Care Unavailable Christos, Sundeep Primary Care Unavailable Christos, Sundeep Referring Unavailable Navdeep Jeffrey Attending Unavailable Christos, Sundeep Referring Unavailable Christos, Sundeep Primary Care Unavailable Vande Velde, Flory Attending Unavailabl e Marcanthony, Tiera Attending Unavailable Christos, Sundeep Primary Care Unavailable Marcanthony, Tiera Referring Unavailable Marcanthony, Tiera Admitting Unavailable Marcanthony, Tiera Referring Unavailable Marcanthony, Tiera Attending Unavailable Christos, Sundeep Primary Care Unavailable Lee, [place] Consulting Unavailable Vande Velde, Flory Referring Unavailabl e Christos, Sundeep Primary Care Unavailable Vande Velde, Flory Attending Unavailabl e Marcanthony, Tiera Attending Unavailable Christos, Sundeep Primary Care Unavailable Marcanthony, Tiera Referring Unavailable RebeccaSania Attending Unavailable Christos, Sundeep Primary Care Unavailable Christos, Sundeep Referring Unavailable Christos, Sundeep Primary Care Unavailable Christos, Sundeep Referring Unavailable Navdeep Jeffrey Attending Unavailable Rebecca, Sania Attending Unavailable Christos, Sundeep Primary Care Unavailable Christos, Sundeep Referring Unavailable Christos, Sundeep Primary Care Unavailable Christos, Sundeep Referring Unavailable Navdeep Jeffrey Attending Unavailable Marcanthony, Tiera Attending Unavailable Jolliff, Bertha S Primary Care Unavailable Marcanthony, Tiera Referring Unavailable Christos, Sundeep Referring Unavailable Marcanthony, Tiera Attending Unavailable Christos, Sundeep Primary Care Unavailable Jolliff, Bertha S Primary Care Unavailable Vande Velde, Flory Referring Unavailabl e Vande Velde, Flory Attending Unavailabl e Christos, Sundeep Primary Care Unavailable Adán Sanabria Attending Unavailable Allergies Allergy Classification Reported Allergen(s) Allergy Type Date of Onset Reaction(s) Facility (13 sources) potato allergenic extract; Translations: [POTATO] Drug Allergy 7 Rash, Hives [facility] (14 sources) Seasonal allergy; Translations: [SEASONAL ALLERGIES] Allergy to substance 8 Other: See Comments, Cough [facility] Medications Current Medications Medication Drug Class(es) [...] Start: 02-10-2023 take 1 capsule by mo [facility] once daily FLUoxetine (PROZAC) 20 mg [...] esmer th every 12 (twelve) hours. levonorgestrel 0.647329 mg/hr intrauterine system (7 sources) Progestin, Progestin-containing [...] Active Problems Problem Classification Problem Date Documented Da te Episodic/Chronic Anxiety disorders (16 sources) Anxiety disorder of adolescence; Translations: [Anxiety disorder, unspecified] Onset: 10-11-2015 06-08-2023 Chronic Bacterial infection; unspecified site (1 source) Streptococcus, group B, as the cause of diseases classified elsewhere; Translations: [Streptococcus, group B, as the cause of diseases classified elsewhere] Onset: 03-21-2025 Episodic Blindness and vision defects (3 sources) Diplopia; Translations: [Other visual disturbances] Onset: 12-26-2024 Episodic Contraceptive and procreative management (2 sources) Patient encounter status; Translations: [Encounter for removal of intrauterine contraceptive device] 01-18-2024 Episodic Diabetes or abnormal glucose tolerance complicating ; childbirth; or the puerperium (3 sources) Gestational diabetes mellitus in , unspecified control; Translations: [Abnormal glucose complicating ] Onset: 02-09-2025 Episodic Fluid and electrolyte disorders (2 sources) Dehydration; Translations: [Dehydration] Onset: 03-26-2025 Episodic Headache; including migraine (1 source) Headache; including migraine; Translations: [Headache, unspecified] Onset: 12-26-2024 Hemorrhage during ; abruptio placenta; placenta previa (7 sources) Threatened miscarriage; Translations: [Threatened ] Onset: 08-11-2024 08-11-2024 Episodic Hypertension complicating ; childbirth and the puerperium (4 sources) Severe pre-eclampsia, complicating the puerperium; Translations: [Severe pre-eclampsia, unspecified trimester] Onset: 03-10-2025 Episodic Immunizations and screening for infectious disease [...] sources) Mood disorders; Translations: [Depression, unspecified] Onset: 03-10-2025 Nausea and vomiting (4 sources) Vomiting, unspecified; Translations: [Nausea with vomiting, unspecified] Onset: 03-10-2025 Episodic Nonmalignant breast conditions (2 sources) Other signs and symptoms in breast; Translations: [Mastodynia] Onset: 03-31-2025 Episodic Other complications of ; puerperium affecting management of mother (1 source) Other disorders of ; Translations: [Other disorders of ] Onset: 03-31-2025 Episodic Other complications of (7 sources) High risk ; Translations: [Supervision of high risk , unspecified, first trimester] Onset: 08-11-2024 08-11-2024 Episodic Other complications of (2 sources) Supervision of high risk , unspecified, third trimester; Translations: [Supervision of high risk , unspecified, third trimester] Onset: 03-21-2025 Episodic Other complications of (2 sources) Gestational edema, unspecified trimester; Translations: [Gestational edema, unspecified trimester] Onset: 03-10-2025 Episodic Other complications of (2 sources) Other specified related conditions, second trimester; Translations: [Other specified related conditions, second trimester] Onset: 03-10-2025 Episodic Other complications of (1 source) Late vomiting of ; Translations: [Late vomiting of ] Onset: 03-26-2025 Episodic Other complications of (1 source) Other specified related conditions, third trimester; Translations: [Other specified related conditions, third trimester] Onset: 03-15-2025 Episodic Other complications of (1 source) Gestational proteinuria, unspecified trimester; Translations: [Gestational proteinuria, unspecified trimester] Onset: 03-16-2025 Episodic Other complications of (1 source) Supervision of high risk , unspecified, second trimester; Translations: [Supervision of high risk , unspecified, second trimester] Onset: 01-06-2025 Episodic Other complications of (1 source) Gestational proteinuria, second trimester; Translations: [Gestational proteinuria, second trimester] Onset: 01-05-2025 Episodic Other diseases of veins and lymphatics (12 sources) Escape of lymph; 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, unspecified] Onset: 07-18-2020 07-23-2020 Chronic Other gastrointestinal disorders (2 sources) Diarrhea, unspecified; Translations: [Diarrhea, unspecified] Onset: 03-10-2025 Episodic Other liver diseases (2 sources) Abnormal levels of other serum enzymes; Translations: [Abnormal levels of other serum enzymes] Onset: 03-21-2025 Episodic Other lower respiratory disease (1 source) Shortness of breath; Translations: [Shortness of breath] Onset: 03-30-2025 Episodic Other nervous system disorders (20 sources) Thoracic outlet syndrome; Translations: [Brachial plexus disorders] Onset: 03-28-2016 07-23-2020 Chronic Other and delivery including normal (15 sources) with uncertain dates; Translations: [Encounter for [...] Translations: [Unspecified blood type, Rh negative] Onset: 03-10-2025 Episodic Residual codes; unclassified (2 sources) 34 weeks gestation of ; Translations: [34 weeks gestation of ] Onset: 03-10-2025 Episodic Residual codes; unclassified (2 sources) 32 weeks gestation of ; Translations: [32 weeks gestation of ] Onset: 03-01-2025 Episodic Residual codes; unclassified (1 source) 30 weeks gestation of ; Translations: [30 weeks gestation of ] Onset: 02-09-2025 Episodic Residual codes; unclassified (1 source) 25 weeks gestation of ; Translations: [25 weeks gestation of ] Onset: 01-06-2025 Episodic Unclassified (2 sources) Cannabis use, unspecified, in remission; Translations: [Cannabis use, unspecified, in remission] Onset: 03-10-2025 Unclassified (1 source) Other specified diseases and conditions complicating ; Translations: [Other specified diseases and conditions complicating ] Onset: 03-16-2025 Past or Other Problems Problem Classification Problem Date Documented Da te Episodic/Chronic Allergic reactions (12 sources) Cholinergic urticaria; 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, [address] Albumin/Globulin [Mass ratio] 1.2 {ratio} Normal 0.9-2.4 [facility] Comment on above: Performed By: #### L 500.4050 ####[facility] [address] [place], [address] ALK PHOS 115 U/L High 35-104 [facility] Comment on above: Performed By: #### L 500.4050 ####[facility] [address] [place], [address] ALT [Catalytic activity/Vol] 37 U/L High <=34 [facility] Comment on above: Performed By: #### L 500.4050 ####[facility] [address] [place], [address] AST [Catalytic activity/Vol] 33 U/L High <=31 [facility] Comment on above: Performed By: #### L 500.4050 ####[facility] [address] [place], [address] Bilirubin [Mass/Vol] 0.23 mg/dL Normal 0.00-1.30 [facility] Comment on above: Performed By: #### L 500.4050 ####[facility] [address] [place], [address] BUN/CRE 11.1 RATIO Normal 10-20 [facility] Comment on above: Performed By: #### L 500.4050 ####[facility] [address] [place], [address] Calcium [Mass/Vol] 9.4 mg/dL Normal 7.6-11.0 [facility] Comment on above: Performed By: #### L 500.4050 ####[facility] [address] [place], [address] Chloride [Moles/Vol] 103 mmol/L Normal 98-108 [facility] Comment on above: Performed By: #### L 500.4050 ####[facility] [address] [place], [address] CO2 [Moles/Vol] 24.6 mmol/L Normal 21.0-32.0 [facility] Comment on above: Performed By: #### L 500.4050 ####[facility] [address] [place], [address] Creatinine [Mass/Vol] 0.85 mg/dL Normal 0.70-1.20 [facility] Comment on above: Performed By: #### L 500.4050 ####[facility] [address] [place], [address] GAP 11 Normal 5-15 [facility] Comment on above: Performed By: #### L 500.4050 ####[facility] [address] [place], [address] GFR/1.73 sq M.predicted among non-blacks MDRD (S/P/Bld) [Vol rate/Area] 99 mL/min/{1.73_m2} Normal >60 [facility] Comment on above: Result Comment: mL/m in/1.73m2 CKD-EPI Creatinine Equation (2020) Performed By: #### L 500.4050 ####[facility] [address] [place], [address] Globulin (S) [Mass/Vol] 3.2 g/dL Normal 2.2-4.2 [facility] Comment on above: Performed By: #### L 500.4050 ####[facility] [address] [place], [address] Glucose [Mass/Vol] 86 mg/dL Normal 70-99 [facility] Comment on above: Performed By: #### L 500.4050 ####[facility] [address] [place], [address] Potassium [Moles/Vol] 4.2 mmol/L Normal 3.3-5.1 [facility] Comment on above: Performed By: #### L 500.4050 ####[facility] [address] [place], [address] Sodium [Moles/Vol] 138 mmol/L Normal 133-145 [facility] Comment on above: Performed By: #### L 500.4050 ####[facility] [address] [place], [address] T PROT 7.2 g/dL Normal 5.9-8.4 [facility] Comment on above: Performed By: #### L 500.4050 ####[facility] [address] [place], [address] Urea nitrogen [Mass/Vol] 9 mg/dL Normal 4-19 [facility] Comment on above: Performed By: #### L 500.4050 ####[facility] [address] [place], [address] Office Visit Reporton 2024 Office Visit Report Normal [facility] MR/BMS.BBCon 03-22-2025 MR/BMS.BBC Normal [facility] Comprehensive Metabolic Prof ilon 03-16-2025 Albumin [Mass/Vol] 3.3 g/dL Low 3.5-5.0 [facility] Comment on above: Performed By: #### L 500.4050 ####[facility] [address] [place], [address] Albumin/Globulin [Mass ratio] 1.2 {ratio} Normal 0.9-2.4 [facility] Comment on above: Performed By: #### L 500.4050 ####[facility] [address] [place], [address] ALK PHOS 111 U/L High 35-104 [facility] Comment on above: Performed By: #### L 500.4050 ####[facility] [address] [place], [address] ALT [Catalytic activity/Vol] 43 U/L High <=34 [facility] Comment on above: Performed By: #### L 500.4050 ####[facility] [address] [place], [address] AST [Catalytic activity/Vol] 41 U/L High <=31 [facility] Comment on above: Performed By: #### L 500.4050 ####[facility] [address] [place], [address] Bilirubin [Mass/Vol] 0.25 mg/dL Normal 0.00-1.30 [facility] Comment on above: Performed By: #### L 500.4050 ####[facility] [address] [place], [address] BUN/CRE 11.1 RATIO Normal 10-20 [facility] Comment on above: Performed By: #### L 500.4050 ####[facility] [address] [place], [address] Calcium [Mass/Vol] 9.3 mg/dL Normal 7.6-11.0 [facility] Comment on above: Performed By: #### L 500.4050 ####[facility] [address] [place], [address] Chloride [Moles/Vol] 102 mmol/L Normal 98-108 [facility] Comment on above: Performed By: #### L 500.4050 ####[facility] [address] [place], [address] CO2 [Moles/Vol] 24.7 mmol/L Normal 21.0-32.0 [facility] Comment on above: Performed By: #### L 500.4050 ####[facility] [address] [place], [address] Creatinine [Mass/Vol] 0.73 mg/dL Normal 0.70-1.20 [facility] Comment on above: Performed By: #### L 500.4050 ####[facility] [address] [place], [address] GAP 12 Normal 5-15 [facility] Comment on above: Performed By: #### L 500.4050 ####[facility] [address] [place], [address] GFR/1.73 sq M.predicted among non-blacks MDRD (S/P/Bld) [Vol rate/Area] 118 mL/min/{1.73_m2} Normal >60 [facility] Comment on above: Result Comment: mL/m in/1.73m2 CKD-EPI Creatinine Equation (2020) Performed By: #### L 500.4050 ####[facility] [address] [place], [address] Globulin (S) [Mass/Vol] 2.8 g/dL Normal 2.2-4.2 [facility] Comment on above: Performed By: #### L 500.4050 ####[facility] [address] [place], [address] Glucose [Mass/Vol] 92 mg/dL Normal 70-99 [facility] Comment on above: Performed By: #### L 500.4050 ####[facility] [address] [place], [address] Potassium [Moles/Vol] 4.5 mmol/L Normal 3.3-5.1 [facility] Comment on above: Performed By: #### L 500.4050 ####[facility] [address] [place], [address] Sodium [Moles/Vol] 138 mmol/L Normal 133-145 [facility] Comment on above: Performed By: #### L 500.4050 ####[facility] [address] [place], [address] T PROT 6.1 g/dL Normal 5.9-8.4 [facility] Comment on above: Performed By: #### L 500.4050 ####[facility] [address] [place], [address] Urea nitrogen [Mass/Vol] 8 mg/dL Normal 4-19 [facility] Comment on above: Performed By: #### L 500.4050 ####[facility] [address] [place], [address] Office Visit Reporton 2024 Office Visit Report Normal [facility] 12 Lead EKGon 03-15-2025 12 Lead EKG Normal [facility] CBC W/Diff, Automatedon 03-01 Absolute Lymph 1.14 X10 3/uL Normal 0.83-4.51 [facility] Comment on above: Performed By: #### L 100.0100, L500.4050 ####[facility] [address] [place], [address] Absolute Neut 8.2 X10 3/uL High 2.0-7.7 [facility] Comment on above: Performed By: #### L 100.0100, L500.4050 ####[facility] [address] [place], [address] Basophils/100 WBC (Bld) 0.3 % Normal 0-1 [facility] Comment on above: Performed By: #### L 100.0100, L500.4050 ####[facility] [address] [place], [address] Eosinophils/100 WBC (Bld) 3.2 % Normal 0-5 [facility] Comment on above: Performed By: #### L 100.0100, L500.4050 ####[facility] [address] [place], [address] Erythrocyte distribution width (RBC) [Ratio] 13.6 % Normal 11.6-14.6 [facility] Comment on above: Performed By: #### L 100.0100, L500.4050 ####[facility] [address] [place], [address] Hematocrit (Bld) [Volume fraction] 25.7 % Low 37-47 [facility] Comment on above: Performed By: #### L 100.0100, L500.4050 ####[facility] [address] [place], [address] Hemoglobin (Bld) [Mass/Vol] 8.7 g/dL Low 12.0-15.0 [facility] Comment on above: Performed By: #### L 100.0100, L500.4050 ####[facility] [address] [place], [address] IG% 1.200 High 0.0-0.9 [facility] Comment on above: Result Comment: IG% - Immature Granulocytes (promyelocytes, myelocytes andmetamyelocytes) > 1% indicates that a LEFT SHIFT is Present. Performed By: #### L 100.0100, L500.4050 ####[facility] [address] [place], [address] Lymphocytes/100 WBC (Bld) 10.7 % Low 19-41 [facility] Comment on above: Performed By: #### L 100.0100, L500.4050 ####[facility] [address] [place], [address] MCH (RBC) [Entitic mass] 30.7 pg Normal 27.0-32.0 [facility] Comment on above: Performed By: #### L 100.0100, L500.4050 ####[facility] [address] [place], [address] MCHC (RBC) [Mass/Vol] 33.9 g/dL Normal 32-36 [facility] Comment on above: Performed By: #### L 100.0100, L500.4050 ####[facility] [address] [place], [address] MCV (RBC) [Entitic vol] 90.8 fL Normal 81-99 [facility] Comment on above: Performed By: #### L 100.0100, L500.4050 ####[facility] [address] [place], [address] Monocytes/100 WBC (Bld) 7.1 % Normal 0-10 [facility] Comment on above: Performed By: #### L 100.0100, L500.4050 ####[facility] [address] [place], [address] Neutrophils/100 WBC (Bld) 77.5 % High 47-70 [facility] Comment on above: Performed By: #### L 100.0100, L500.4050 ####[facility] [address] [place], [address] Nucleated RBC (Bld) [#/Vol] 1.7 10*3/uL Normal 0-5 [facility] Comment on above: Performed By: #### L 100.0100, L500.4050 ####[facility] [address] [place], [address] Platelet mean volume (Bld) [Entitic vol] 10.6 fL Normal 6.2-12.0 [facility] Comment on above: Performed By: #### L 100.0100, L500.4050 ####[facility] [address] [place], [address] Platelets (Bld) [#/Vol] 285 10*3/uL Normal 150-450 [facility] Comment on above: Performed By: #### L 100.0100, L500.4050 ####[facility] [address] [place], [address] RBC (Bld) [#/Vol] 2.83 10*6/uL Low 4.2-5.4 [facility] Comment on above: Performed By: #### L 100.0100, L500.4050 ####[facility] [address] [place], [address] RDW SD 45.0 fl High 35.1-43.9 [facility] Comment on above: Performed By: #### L 100.0100, L500.4050 ####[facility] [address] [place], [address] WBC (Bld) [#/Vol] 10.6 10*3/uL Normal 4.4-11.0 [facility] Comment on above: Performed By: #### L 100.0100, L500.4050 ####[facility] [address] [place], [address] Absolute Lymph 2.09 X10 3/uL Normal 0.83-4.51 [facility] Comment on above: Performed By: #### L 100.0100, L300.8000, L500.4050 ####[facility] [address] [place], [address] Absolute Neut 6.7 X10 3/uL Normal 2.0-7.7 [facility] Comment on above: Performed By: #### L 100.0100, L300.8000, L500.4050 ####[facility] [address] [place], [address] Basophils/100 WBC (Bld) 0.4 % Normal 0-1 [facility] Comment on above: Performed By: #### L 100.0100, L300.8000, L500.4050 ####[facility] [address] [place], [address] Eosinophils/100 WBC (Bld) 4.0 % Normal 0-5 [facility] Comment on above: Performed By: #### L 100.0100, L300.8000, L500.4050 ####[facility] [address] [place], [address] Erythrocyte distribution width (RBC) [Ratio] 13.7 % Normal 11.6-14.6 [facility] Comment on above: Performed By: #### L 100.0100, L300.8000, L500.4050 ####[facility] [address] [place], [address] Hematocrit (Bld) [Volume fraction] 24.0 % Low 37-47 [facility] Comment on above: Performed By: #### L 100.0100, L300.8000, L500.4050 ####[facility] [address] [place], [address] Hemoglobin (Bld) [Mass/Vol] 8.1 g/dL Low 12.0-15.0 [facility] Comment on above: Performed By: #### L 100.0100, L300.8000, L500.4050 ####[facility] [address] [place], [address] IG% 1.400 High 0.0-0.9 [facility] Comment on above: Result Comment: IG% - Immature Granulocytes (promyelocytes, myelocytes andmetamyelocytes) > 1% indicates that a LEFT SHIFT is Present. Performed By: #### L 100.0100, L300.8000, L500.4050 ####[facility] [address] [place], [address] Lymphocytes/100 WBC (Bld) 20.9 % Normal 19-41 [facility] Comment on above: Performed By: #### L 100.0100, L300.8000, L500.4050 ####[facility] [address] [place], [address] MCH (RBC) [Entitic mass] 30.8 pg Normal 27.0-32.0 [facility] Comment on above: Performed By: #### L 100.0100, L300.8000, L500.4050 ####[facility] [address] [place], [address] MCHC (RBC) [Mass/Vol] 33.8 g/dL Normal 32-36 [facility] Comment on above: Performed By: #### L 100.0100, L300.8000, L500.4050 ####[facility] [address] [place], [address] MCV (RBC) [Entitic vol] 91.3 fL Normal 81-99 [facility] Comment on above: Performed By: #### L 100.0100, L300.8000, L500.4050 ####[facility] [address] [place], [address] Monocytes/100 WBC (Bld) 6.6 % Normal 0-10 [facility] Comment on above: Performed By: #### L 100.0100, L300.8000, L500.4050 ####[facility] [address] [place], [address] Neutrophils/100 WBC (Bld) 66.7 % Normal 47-70 [facility] Comment on above: Performed By: #### L 100.0100, L300.8000, L500.4050 ####[facility] [address] [place], [address] Nucleated RBC (Bld) [#/Vol] 1.7 10*3/uL Normal 0-5 [facility] Comment on above: Performed By: #### L 100.0100, L300.8000, L500.4050 ####[facility] [address] [place], [address] Platelet mean volume (Bld) [Entitic vol] 10.7 fL Normal 6.2-12.0 [facility] Comment on above: Performed By: #### L 100.0100, L300.8000, L500.4050 ####[facility] [address] [place], [address] Platelets (Bld) [#/Vol] 240 10*3/uL Normal 150-450 [facility] Comment on above: Performed By: #### L 100.0100, L300.8000, L500.4050 ####[facility] [address] [place], [address] RBC (Bld) [#/Vol] 2.63 10*6/uL Low 4.2-5.4 [facility] Comment on above: Performed By: #### L 100.0100, L300.8000, L500.4050 ####[facility] [address] [place], [address] RDW SD 44.5 fl High 35.1-43.9 [facility] Comment on above: Performed By: #### L 100.0100, L300.8000, L500.4050 ####[facility] [address] [place], [address] WBC (Bld) [#/Vol] 10.0 10*3/uL Normal 4.4-11.0 [facility] Comment on above: Performed By: #### L 100.0100, L300.8000, L500.4050 ####[facility] [address] [place], [address] CTA Chest W/WO Contraston CTA Chest W/WO Contrast Normal [facility] Comprehensive Metabolic Prof ilon 03-15-2025 Albumin [Mass/Vol] 3.3 g/dL Low 3.5-5.0 [facility] Comment on above: Performed By: #### L 100.0100, L500.4050 ####[facility] [address] [place], [address] Albumin/Globulin [Mass ratio] 1.1 {ratio} Normal 0.9-2.4 [facility] Comment on above: Performed By: #### L 100.0100, L500.4050 ####[facility] [address] [place], [address] ALK PHOS 116 U/L High 35-104 [facility] Comment on above: Performed By: #### L 100.0100, L500.4050 ####[facility] [address] [place], [address] ALT [Catalytic activity/Vol] 53 U/L High <=34 [facility] Comment on above: Performed By: #### L 100.0100, L500.4050 ####[facility] [address] [place], [address] AST [Catalytic activity/Vol] 61 U/L High <=31 [facility] Comment on above: Result Comment: Hemo lysis present, Results??could be affected.?? Performed By: #### L 100.0100, L500.4050 ####[facility] [address] [place], [address] Bilirubin [Mass/Vol] 0.26 mg/dL Normal 0.00-1.30 [facility] Comment on above: Performed By: #### L 100.0100, L500.4050 ####[facility] [address] [place], [address] BUN/CRE 10.1 RATIO Normal 10-20 [facility] Comment on above: Performed By: #### L 100.0100, L500.4050 ####[facility] [address] [place], [address] Calcium [Mass/Vol] 9.1 mg/dL Normal 7.6-11.0 [facility] Comment on above: Performed By: #### L 100.0100, L500.4050 ####[facility] [address] [place], [address] Chloride [Moles/Vol] 100 mmol/L Normal 98-108 [facility] Comment on above: Performed By: #### L 100.0100, L500.4050 ####[facility] [address] [place], [address] CO2 [Moles/Vol] 27.3 mmol/L Normal 21.0-32.0 [facility] Comment on above: Performed By: #### L 100.0100, L500.4050 ####[facility] [address] [place], [address] Creatinine [Mass/Vol] 0.68 mg/dL Low 0.70-1.20 [facility] Comment on above: Performed By: #### L 100.0100, L500.4050 ####[facility] [address] [place], [address] ECRCL 166.33 ml/min Normal 50-250 [facility] Comment on above: Performed By: #### L 100.0100, L500.4050 ####[facility] [address] [place], [address] GAP 12 Normal 5-15 [facility] Comment on above: Performed By: #### L 100.0100, L500.4050 ####[facility] [address] [place], [address] GFR/1.73 sq M.predicted among non-blacks MDRD (S/P/Bld) [Vol rate/Area] 125 mL/min/{1.73_m2} Normal >60 [facility] Comment on above: Result Comment: mL/m in/1.73m2 CKD-EPI Creatinine Equation (2020) Performed By: #### L 100.0100, L500.4050 ####[facility] [address] [place], [address] Globulin (S) [Mass/Vol] 2.9 g/dL Normal 2.2-4.2 [facility] Comment on above: Performed By: #### L 100.0100, L500.4050 ####[facility] [address] [place], [address] Glucose [Mass/Vol] 90 mg/dL Normal 70-99 [facility] Comment on above: Performed By: #### L 100.0100, L500.4050 ####[facility] [address] [place], [address] Potassium [Moles/Vol] 3.7 mmol/L Normal 3.3-5.1 [facility] Comment on above: Result Comment: Hemo lysis present, Results??could be affected.?? Performed By: #### L 100.0100, L500.4050 ####[facility] [address] [place], [address] Sodium [Moles/Vol] 139 mmol/L Normal 133-145 [facility] Comment on above: Performed By: #### L 100.0100, L500.4050 ####[facility] [address] [place], [address] T PROT 6.1 g/dL Normal 5.9-8.4 [facility] Comment on above: Performed By: #### L 100.0100, L500.4050 ####[facility] [address] [place], [address] Urea nitrogen [Mass/Vol] 7 mg/dL Normal 4-19 [facility] Comment on above: Performed By: #### L 100.0100, L500.4050 ####[facility] [address] [place], [address] Albumin [Mass/Vol] 3.1 g/dL Low 3.5-5.0 [facility] Comment on above: Performed By: #### L 100.0100, L300.8000, L500.4050 ####[facility] [address] [place], [address] Albumin/Globulin [Mass ratio] 1.2 {ratio} Normal 0.9-2.4 [facility] Comment on above: Performed By: #### L 100.0100, L300.8000, L500.4050 ####[facility] [address] [place], [address] ALK PHOS 107 U/L High 35-104 [facility] Comment on above: Performed By: #### L 100.0100, L300.8000, L500.4050 ####[facility] [address] [place], [address] ALT [Catalytic activity/Vol] 49 U/L High <=34 [facility] Comment on above: Performed By: #### L 100.0100, L300.8000, L500.4050 ####[facility] [address] [place], [address] AST [Catalytic activity/Vol] 56 U/L High <=31 [facility] Comment on above: Performed By: #### L 100.0100, L300.8000, L500.4050 ####[facility] [address] [place], [address] Bilirubin [Mass/Vol] 0.18 mg/dL Normal 0.00-1.30 [facility] Comment on above: Performed By: #### L 100.0100, L300.8000, L500.4050 ####[facility] [address] [place], [address] BUN/CRE 10.5 RATIO Normal 10-20 [facility] Comment on above: Performed By: #### L 100.0100, L300.8000, L500.4050 ####[facility] [address] [place], [address] Calcium [Mass/Vol] 9.4 mg/dL Normal 7.6-11.0 [facility] Comment on above: Performed By: #### L 100.0100, L300.8000, L500.4050 ####[facility] [address] [place], [address] Chloride [Moles/Vol] 105 mmol/L Normal 98-108 [facility] Comment on above: Performed By: #### L 100.0100, L300.8000, L500.4050 ####[facility] [address] [place], [address] CO2 [Moles/Vol] 22.7 mmol/L Normal 21.0-32.0 [facility] Comment on above: Performed By: #### L 100.0100, L300.8000, L500.4050 ####[facility] [address] [place], [address] Creatinine [Mass/Vol] 0.66 mg/dL Low 0.70-1.20 [facility] Comment on above: Performed By: #### L 100.0100, L300.8000, L500.4050 ####[facility] [address] [place], [address] ECRCL 171.37 ml/min Normal 50-250 [facility] Comment on above: Performed By: #### L 100.0100, L300.8000, L500.4050 ####[facility] [address] [place], [address] GAP 12 Normal 5-15 [facility] Comment on above: Performed By: #### L 100.0100, L300.8000, L500.4050 ####[facility] [address] [place], [address] GFR/1.73 sq M.predicted among non-blacks MDRD (S/P/Bld) [Vol rate/Area] 127 mL/min/{1.73_m2} Normal >60 [facility] Comment on above: Result Comment: mL/m in/1.73m2 CKD-EPI Creatinine Equation (2020) Performed By: #### L 100.0100, L300.8000, L500.4050 ####[facility] [address] [place], [address] Globulin (S) [Mass/Vol] 2.5 g/dL Normal 2.2-4.2 [facility] Comment on above: Performed By: #### L 100.0100, L300.8000, L500.4050 ####[facility] [address] [place], [address] Glucose [Mass/Vol] 84 mg/dL Normal 70-99 [facility] Comment on above: Performed By: #### L 100.0100, L300.8000, L500.4050 ####[facility] [address] [place], [address] Potassium [Moles/Vol] 3.9 mmol/L Normal 3.3-5.1 [facility] Comment on above: Performed By: #### L 100.0100, L300.8000, L500.4050 ####[facility] [address] [place], [address] Sodium [Moles/Vol] 140 mmol/L Normal 133-145 [facility] Comment on above: Performed By: #### L 100.0100, L300.8000, L500.4050 ####[facility] [address] [place], [address] T PROT 5.6 g/dL Low 5.9-8.4 [facility] Comment on above: Performed By: #### L 100.0100, L300.8000, L500.4050 ####[facility] [address] [place], [address] Urea nitrogen [Mass/Vol] 7 mg/dL Normal 4-19 [facility] Comment on above: Performed By: #### L 100.0100, L300.8000, L500.4050 ####[facility] [address] [place], [address] Consultation - Cardiologyon 03-15-2025 Consultation - Cardiology Normal [facility] D-Dimer Quantitative (DVT/PE )on 03-15-2025 D-DIMER QUANT 2.64 FEU/ug/m Invalid Interpretation Code 0.27-0.49 [facility] Comment on above: Result Comment: D-Di wendi ELEVATED (>0.49): Additional studies and clinicalassessments are indicated to conclude diagnosis of:Deep Vein Thrombosis (DVT) or Pulmonary Embolism (PE)CRITICAL VALUE CALLED TO DRU DICKSOND1 0359 Gianna Benites.RESULTS READ BACK BY SAME. Performed By: #### L 100.0100, L300.8000, L500.4050 ####[facility] [address] [place], [address] Echo Completeon 03-15-2025 Echo Complete Normal [facility] Fibrinogenon 03-15-2025 FIBRINOGEN 403 mg/dl Normal 203-444 [facility] Comment on above: Performed By: #### L 300.4310, L300.4700, L300.3900 ####[facility] [address] [place], [address] H AND P Exam - OB/GYNon 03-01 H&P Exam - AIRCRAFT RIVETER Normal [facility] Partial Thromboplast Timeon 03-15-2025 aPTT Coag (Bld) [Time] 22.5 s Low 24.1-36.2 [facility] Comment on above: Performed By: #### L 300.4310, L300.4700, L300.3900 ####[facility] [address] [place], [address] Pro- Brain NATRIURETIC PEPTI Baltazar 03-15-2025 Natriuretic peptide B (Bld) [Mass/Vol] 641 pg/mL High <=450 [facility] Comment on above: Result Comment: Hear t Failure Unlikely: < 300 pg/mLHeart Failure Likely< 50 Years: > 450 pg/mL50-75 Years: > 900 pg/mL>75 Years: > 1800 pg/mL Performed By: #### L 503.7504 ####[facility] [address] [place], [address] Prothrombin Time w/INRon INR Coag (PPP) [Relative time] 0.9 {INR} Normal [facility] Comment on above: Performed By: #### L 300.4310, L300.4700, L300.3900 ####[facility] [address] [place], [address] PT Coag (PPP) [Time] 12.3 s Normal 11.7-14.9 [facility] Comment on above: Performed By: #### L 300.4310, L300.4700, L300.3900 ####[facility] [address] [place], [address] Bedside Glucoseon 03-12-2025 FINGERSTICK GLU 86 mg/dL Normal 74-106 [facility] Comment on above: Result Comment: VERITO HUMPHRIES OF PATIENT CARE PER NURSING PROTOCOL Performed By: #### L 501.080 ####[facility] [address] [place], [address] CBC W/Diff, Automatedon 03-01 Absolute Lymph 1.49 X10 3/uL Normal 0.83-4.51 [facility] Comment on above: Performed By: #### L 100.0100 ####[facility] [address] [place], [address] Absolute Neut 17.0 X10 3/uL High 2.0-7.7 [facility] Comment on above: Performed By: #### L 100.0100 ####[facility] [address] [place], [address] Basophils/100 WBC (Bld) 0.1 % Normal 0-1 [facility] Comment on above: Performed By: #### L 100.0100 ####[facility] [address] [place], [address] Eosinophils/100 WBC (Bld) 0.2 % Normal 0-5 [facility] Comment on above: Performed By: #### L 100.0100 ####[facility] [address] [place], [address] Erythrocyte distribution width (RBC) [Ratio] 13.3 % Normal 11.6-14.6 [facility] Comment on above: Performed By: #### L 100.0100 ####[facility] [address] [place], [address] Hematocrit (Bld) [Volume fraction] 23.2 % Low 37-47 [facility] Comment on above: Performed By: #### L 100.0100 ####[facility] [address] [place], [address] Hemoglobin (Bld) [Mass/Vol] 8.2 g/dL Low 12.0-15.0 [facility] Comment on above: Performed By: #### L 100.0100 ####[facility] [address] [place], [address] IG% 0.800 Normal 0.0-0.9 [facility] Comment on above: Result Comment: IG% - Immature Granulocytes (promyelocytes, myelocytes andmetamyelocytes) > 1% indicates that a LEFT SHIFT is Present. Performed By: #### L 100.0100 ####[facility] [address] [place], [address] Lymphocytes/100 WBC (Bld) 7.6 % Low 19-41 [facility] Comment on above: Performed By: #### L 100.0100 ####[facility] [address] [place], [address] MCH (RBC) [Entitic mass] 31.1 pg Normal 27.0-32.0 [facility] Comment on above: Performed By: #### L 100.0100 ####[facility] [address] [place], [address] MCHC (RBC) [Mass/Vol] 35.3 g/dL Normal 32-36 [facility] Comment on above: Performed By: #### L 100.0100 ####[facility] [address] [place], [address] MCV (RBC) [Entitic vol] 87.9 fL Normal 81-99 [facility] Comment on above: Performed By: #### L 100.0100 ####[facility] [address] [place], [address] Monocytes/100 WBC (Bld) 4.5 % Normal 0-10 [facility] Comment on above: Performed By: #### L 100.0100 ####[facility] [address] [place], [address] Neutrophils/100 WBC (Bld) 86.8 % High 47-70 [facility] Comment on above: Performed By: #### L 100.0100 ####[facility] [address] [place], [address] Nucleated RBC (Bld) [#/Vol] 0 10*3/uL Normal 0-5 [facility] Comment on above: Performed By: #### L 100.0100 ####[facility] [address] [place], [address] Platelet mean volume (Bld) [Entitic vol] 11.9 fL Normal 6.2-12.0 [facility] Comment on above: Performed By: #### L 100.0100 ####[facility] [address] [place], [address] Platelets (Bld) [#/Vol] 187 10*3/uL Normal 150-450 [facility] Comment on above: Performed By: #### L 100.0100 ####[facility] [address] [place], [address] RBC (Bld) [#/Vol] 2.64 10*6/uL Low 4.2-5.4 [facility] Comment on above: Performed By: #### L 100.0100 ####[facility] [address] [place], [address] RDW SD 41.9 fl Normal 35.1-43.9 [facility] Comment on above: Performed By: #### L 100.0100 ####[facility] [address] [place], [address] WBC (Bld) [#/Vol] 19.6 10*3/uL High 4.4-11.0 [facility] Comment on above: Performed By: #### L 100.0100 ####[facility] [address] [place], [address] Absolute Lymph 1.56 X10 3/uL Normal 0.83-4.51 [facility] Comment on above: Order Comment: Comme nts: First day Performed By: #### L 100.0100, L500.4050 ####[facility] [address] [place], [address] Absolute Neut 16.8 X10 3/uL High 2.0-7.7 [facility] Comment on above: Order Comment: Comme nts: First day Performed By: #### L 100.0100, L500.4050 ####[facility] [address] [place], [address] Basophils/100 WBC (Bld) 0.2 % Normal 0-1 [facility] Comment on above: Order Comment: Comme nts: First day Performed By: #### L 100.0100, L500.4050 ####[facility] [address] [place], [address] Eosinophils/100 WBC (Bld) 0.1 % Normal 0-5 [facility] Comment on above: Order Comment: Comme nts: First day Performed By: #### L 100.0100, L500.4050 ####[facility] [address] [place], [address] Erythrocyte distribution width (RBC) [Ratio] 13.2 % Normal 11.6-14.6 [facility] Comment on above: Order Comment: Comme nts: First day Performed By: #### L 100.0100, L500.4050 ####[facility] [address] [place], [address] Hematocrit (Bld) [Volume fraction] 22.5 % Low 37-47 [facility] Comment on above: Order Comment: Comme nts: First day Performed By: #### L 100.0100, L500.4050 ####[facility] [address] [place], [address] Hemoglobin (Bld) [Mass/Vol] 8.0 g/dL Low 12.0-15.0 [facility] Comment on above: Order Comment: Comme nts: First day Performed By: #### L 100.0100, L500.4050 ####[facility] [address] [place], [address] IG% 0.500 Normal 0.0-0.9 [facility] Comment on above: Order Comment: Comme nts: First day Result Comment: IG% - Immature Granulocytes (promyelocytes, myelocytes andmetamyelocytes) > 1% indicates that a LEFT SHIFT is Present. Performed By: #### L 100.0100, L500.4050 ####[facility] [address] [place], [address] Lymphocytes/100 WBC (Bld) 8.0 % Low 19-41 [facility] Comment on above: Order Comment: Comme nts: First day Performed By: #### L 100.0100, L500.4050 ####[facility] [address] [place], [address] MCH (RBC) [Entitic mass] 31.4 pg Normal 27.0-32.0 [facility] Comment on above: Order Comment: Comme nts: First day Performed By: #### L 100.0100, L500.4050 ####[facility] [address] [place], [address] MCHC (RBC) [Mass/Vol] 35.6 g/dL Normal 32-36 [facility] Comment on above: Order Comment: Comme nts: First day Performed By: #### L 100.0100, L500.4050 ####[facility] [address] [place], [address] MCV (RBC) [Entitic vol] 88.2 fL Normal 81-99 [facility] Comment on above: Order Comment: Comme nts: First day Performed By: #### L 100.0100, L500.4050 ####[facility] [address] [place], [address] Monocytes/100 WBC (Bld) 4.9 % Normal 0-10 [facility] Comment on above: Order Comment: Comme nts: First day Performed By: #### L 100.0100, L500.4050 ####[facility] [address] [place], [address] Neutrophils/100 WBC (Bld) 86.3 % High 47-70 [facility] Comment on above: Order Comment: Comme nts: First day Performed By: #### L 100.0100, L500.4050 ####[facility] [address] [place], [address] Nucleated RBC (Bld) [#/Vol] 0 10*3/uL Normal 0-5 [facility] Comment on above: Order Comment: Comme nts: First day Performed By: #### L 100.0100, L500.4050 ####[facility] [address] [place], [address] Platelet mean volume (Bld) [Entitic vol] 11.5 fL Normal 6.2-12.0 [facility] Comment on above: Order Comment: Comme nts: First day Performed By: #### L 100.0100, L500.4050 ####[facility] [address] [place], [address] Platelets (Bld) [#/Vol] 168 10*3/uL Normal 150-450 [facility] Comment on above: Order Comment: Comme nts: First day Performed By: #### L 100.0100, L500.4050 ####[facility] [address] [place], [address] RBC (Bld) [#/Vol] 2.55 10*6/uL Low 4.2-5.4 [facility] Comment on above: Order Comment: Comme nts: First day Performed By: #### L 100.0100, L500.4050 ####[facility] [address] [place], [address] RDW SD 42.5 fl Normal 35.1-43.9 [facility] Comment on above: Order Comment: Comme nts: First day Performed By: #### L 100.0100, L500.4050 ####[facility] [address] [place], [address] WBC (Bld) [#/Vol] 19.5 10*3/uL High 4.4-11.0 [facility] Comment on above: Order Comment: Comme nts: First day Performed By: #### L 100.0100, L500.4050 ####[facility] [address] [place], [address] Comprehensive Metabolic Prof ilon 03-12-2025 Albumin [Mass/Vol] 2.3 g/dL Low 3.5-5.0 [facility] Comment on above: Performed By: #### L 100.0100, L500.4050 ####[facility] [address] [place], [address] Albumin/Globulin [Mass ratio] 1.2 {ratio} Normal 0.9-2.4 [facility] Comment on above: Performed By: #### L 100.0100, L500.4050 ####[facility] [address] [place], [address] ALK PHOS 97 U/L Normal 35-104 [facility] Comment on above: Performed By: #### L 100.0100, L500.4050 ####[facility] [address] [place], [address] ALT [Catalytic activity/Vol] 22 U/L Normal <=34 [facility] Comment on above: Performed By: #### L 100.0100, L500.4050 ####[facility] [address] [place], [address] AST [Catalytic activity/Vol] 24 U/L Normal <=31 [facility] Comment on above: Performed By: #### L 100.0100, L500.4050 ####[facility] [address] [place], [address] Bilirubin [Mass/Vol] 0.17 mg/dL Normal 0.00-1.30 [facility] Comment on above: Performed By: #### L 100.0100, L500.4050 ####[facility] [address] [place], [address] BUN/CRE 6.3 RATIO Low 10-20 [facility] Comment on above: Performed By: #### L 100.0100, L500.4050 ####[facility] [address] [place], [address] Calcium [Mass/Vol] 6.6 mg/dL Low 7.6-11.0 [facility] Comment on above: Performed By: #### L 100.0100, L500.4050 ####[facility] [address] [place], [address] Chloride [Moles/Vol] 101 mmol/L Normal 98-108 [facility] Comment on above: Performed By: #### L 100.0100, L500.4050 ####[facility] [address] [place], [address] CO2 [Moles/Vol] 21.1 mmol/L Normal 21.0-32.0 [facility] Comment on above: Performed By: #### L 100.0100, L500.4050 ####[facility] [address] [place], [address] Creatinine [Mass/Vol] 0.75 mg/dL Normal 0.70-1.20 [facility] Comment on above: Performed By: #### L 100.0100, L500.4050 ####[facility] [address] [place], [address] ECRCL 150.80 ml/min Normal 50-250 [facility] Comment on above: Performed By: #### L 100.0100, L500.4050 ####[facility] [address] [place], [address] GAP 9 Normal 5-15 [facility] Comment on above: Performed By: #### L 100.0100, L500.4050 ####[facility] [address] [place], [address] GFR/1.73 sq M.predicted among non-blacks MDRD (S/P/Bld) [Vol rate/Area] 114 mL/min/{1.73_m2} Normal >60 [facility] Comment on above: Result Comment: mL/m in/1.73m2 CKD-EPI Creatinine Equation (2020) Performed By: #### L 100.0100, L500.4050 ####[facility] [address] [place], [address] Globulin (S) [Mass/Vol] 1.9 g/dL Low 2.2-4.2 [facility] Comment on above: Performed By: #### L 100.0100, L500.4050 ####[facility] [address] [place], [address] Glucose [Mass/Vol] 106 mg/dL High 70-99 [facility] Comment on above: Performed By: #### L 100.0100, L500.4050 ####[facility] [address] [place], [address] Potassium [Moles/Vol] 3.4 mmol/L Normal 3.3-5.1 [facility] Comment on above: Performed By: #### L 100.0100, L500.4050 ####[facility] [address] [place], [address] Sodium [Moles/Vol] 131 mmol/L Low 133-145 [facility] Comment on above: Performed By: #### L 100.0100, L500.4050 ####[facility] [address] [place], [address] T PROT 4.2 g/dL Low 5.9-8.4 [facility] Comment on above: Performed By: #### L 100.0100, L500.4050 ####[facility] [address] [place], [address] Urea nitrogen [Mass/Vol] 5 mg/dL Normal 4-19 [facility] Comment on above: Performed By: #### L 100.0100, L500.4050 ####[facility] [address] [place], [address] Magnesiumon 03-12-2025 Magnesium [Mass/Vol] 7.1 mg/dL Invalid Interpretation Code 1.5-2.2 [facility] Comment on above: Order Comment: Comme nts: to be run as stat Result Comment: Crit ical Result(s) Called at 0954: by: CHIQUIS RICHARDS. ??Results read back by same. Performed By: #### L 501.5200 ####[facility] [address] [place], [address] BRho(D) IGon 03-11-2025 Rho(D) IG Normal [facility] Comment on above: Result Comment: RH10 7134 Rho(D) IG PRSMD TRFSD 03/11/25 2158 Performed By: #### B Rho(D) IG ####[facility] [address] [place], [address] Bedside Glucoseon 03-11-2025 FINGERSTICK GLU 126 mg/dL High 74-106 [facility] Comment on above: Result Comment: VERITO HUMPHRIES OF PATIENT CARE PER NURSING PROTOCOL Performed By: #### L 501.080 ####[facility] [address] [place], [address] FINGERSTICK GLU 89 mg/dL Normal 74-106 [facility] Comment on above: Result Comment: VERITO GEMENT OF PATIENT CARE PER NURSING PROTOCOL Performed By: #### L 501.080 ####[facility] [address] [place], [address] FINGERSTICK GLU 87 mg/dL Normal 74-106 [facility] Comment on above: Result Comment: VERITO GEMENT OF PATIENT CARE PER NURSING PROTOCOL Performed By: #### L 501.080 ####[facility] [address] [place], [address] FINGERSTICK GLU 82 mg/dL Normal 74-106 [facility] Comment on above: Result Comment: VERITO GEMENT OF PATIENT CARE PER NURSING PROTOCOL Performed By: #### L 501.080 ####[facility] [address] [place], [address] FINGERSTICK GLU 81 mg/dL Normal 74-106 [facility] Comment on above: Result Comment: VERITO GEMENT OF PATIENT CARE PER NURSING PROTOCOL Performed By: #### L 501.080 ####[facility] [address] [place], [address] CBC W/Diff, Automatedon 10-1 Absolute Lymph 1.07 X10 3/uL Normal 0.83-4.51 [facility] Comment on above: Performed By: #### L 100.0100 ####[facility] [address] [place], [address] Absolute Neut 13.8 X10 3/uL High 2.0-7.7 [facility] Comment on above: Performed By: #### L 100.0100 ####[facility] [address] [place], [address] Basophils/100 WBC (Bld) 0.3 % Normal 0-1 [facility] Comment on above: Performed By: #### L 100.0100 ####[facility] [address] [place], [address] Eosinophils/100 WBC (Bld) 0.1 % Normal 0-5 [facility] Comment on above: Performed By: #### L 100.0100 ####[facility] [address] [place], [address] Erythrocyte distribution width (RBC) [Ratio] 13.2 % Normal 11.6-14.6 [facility] Comment on above: Performed By: #### L 100.0100 ####[facility] [address] [place], [address] Hematocrit (Bld) [Volume fraction] 32.0 % Low 37-47 [facility] Comment on above: Performed By: #### L 100.0100 ####[facility] [address] [place], [address] Hemoglobin (Bld) [Mass/Vol] 10.9 g/dL Low 12.0-15.0 [facility] Comment on above: Performed By: #### L 100.0100 ####[facility] [address] [place], [address] IG% 0.400 Normal 0.0-0.9 [facility] Comment on above: Result Comment: IG% - Immature Granulocytes (promyelocytes, myelocytes andmetamyelocytes) > 1% indicates that a LEFT SHIFT is Present. Performed By: #### L 100.0100 ####[facility] [address] [place], [address] Lymphocytes/100 WBC (Bld) 6.8 % Low 19-41 [facility] Comment on above: Performed By: #### L 100.0100 ####[facility] [address] [place], [address] MCH (RBC) [Entitic mass] 30.4 pg Normal 27.0-32.0 [facility] Comment on above: Performed By: #### L 100.0100 ####[facility] [address] [place], [address] MCHC (RBC) [Mass/Vol] 34.1 g/dL Normal 32-36 [facility] Comment on above: Performed By: #### L 100.0100 ####[facility] [address] [place], [address] MCV (RBC) [Entitic vol] 89.1 fL Normal 81-99 [facility] Comment on above: Performed By: #### L 100.0100 ####[facility] [address] [place], [address] Monocytes/100 WBC (Bld) 5.5 % Normal 0-10 [facility] Comment on above: Performed By: #### L 100.0100 ####[facility] [address] [place], [address] Neutrophils/100 WBC (Bld) 86.9 % High 47-70 [facility] Comment on above: Performed By: #### L 100.0100 ####[facility] [address] [place], [address] Nucleated RBC (Bld) [#/Vol] 0.1 10*3/uL Normal 0-5 [facility] Comment on above: Performed By: #### L 100.0100 ####[facility] [address] [place], [address] Platelet mean volume (Bld) [Entitic vol] 11.2 fL Normal 6.2-12.0 [facility] Comment on above: Performed By: #### L 100.0100 ####[facility] [address] [place], [address] Platelets (Bld) [#/Vol] 192 10*3/uL Normal 150-450 [facility] Comment on above: Performed By: #### L 100.0100 ####[facility] [address] [place], [address] RBC (Bld) [#/Vol] 3.59 10*6/uL Low 4.2-5.4 [facility] Comment on above: Performed By: #### L 100.0100 ####[facility] [address] [place], [address] RDW SD 42.9 fl Normal 35.1-43.9 [facility] Comment on above: Performed By: #### L 100.0100 ####[facility] [address] [place], [address] WBC (Bld) [#/Vol] 15.8 10*3/uL High 4.4-11.0 [facility] Comment on above: Performed By: #### L 100.0100 ####[facility] [address] [place], [address] Discharge Instructionon 03-01 Discharge Instruction Normal [facility] MR/OB.VAGDELIon 03-11-2025 [facility] Rh Negative Mom Workupon ABO and Rh group Nom (Bld) Blood group A Rh(D) negative Normal [facility] Comment on above: Order Comment: sobeida [email or web address] Performed By: #### B RHNM ####[facility] [address] [place], [address] ABO and Rh group Nom (Bld) Blood group A Rh(D) positive Normal [facility] Comment on above: Order Comment: sobeida [email or web address] Performed By: #### B RHNM ####[facility] [address] [place], [address] DIRECT ANTIGLOB Negative Normal NEGATIVE [facility] Comment on above: Order Comment: petrona Kiranbyboy00 Performed By: #### B RHNM ####[facility] [address] [place], [address] MOM'S ABS Negative Normal [facility] Comment on above: Order Comment: Magno lflevpjormpnt40 Performed By: #### B RHNM ####[facility] [address] [place], [address] SCREEN Negative Normal NEGATIVE [facility] Comment on above: Order Comment: Magno lxcugcryezdew27 Performed By: #### B RHNM ####[facility] [address] [place], [address] Type AND Screenon 03-11-2025 Ab SCREEN GEL TNP Normal [facility] Comment on above: Order Comment: Labor Performed By: #### B 09560-1, L100.0100, BTS ####[facility] [address] [place], [address] ABO and Rh group Nom (Bld) Blood group A Rh(D) negative Normal [facility] Comment on above: Order Comment: Labor Performed By: #### B 13264-2, L100.0100, BTS ####[facility] [address] [place], [address] (ROM) Rupture Of Membraneson 03-10-2025 ROM Negative Normal Negative [facility] Comment on above: Result Comment: Amni otic fluid not present indicates No Rupture of FetalMembranes at time of specimen collection. Performed By: #### L 205.1000 ####[facility] [address] [place], [address] AST(SGOT)on 03-10-2025 AST [Catalytic activity/Vol] 61 U/L High <=31 [facility] Comment on above: Result Comment: Hemo lysis present, Results??could be affected.?? Performed By: #### L 501.4405, L501.0900, L501.1105, L501.1400, L100.0500, L501.4100 ####[facility] [address] [place], [address] Abdomen Limitedon 03-10-2025 Abdomen Limited Normal [facility] Alanine Aminotransferas (SGP T)on 03-10-2025 ALT [Catalytic activity/Vol] 37 U/L High <=34 [facility] Comment on above: Performed By: #### L 501.4405, L501.0900, L501.1105, L501.1400, L100.0500, L501.4100 ####[facility] [address] [place], [address] Bedside Glucoseon 03-10-2025 FINGERSTICK GLU 84 mg/dL Normal 74-106 [facility] Comment on above: Result Comment: VERITO GEMENT OF PATIENT CARE PER NURSING PROTOCOL Performed By: #### L 501.080 ####[facility] [address] [place], [address] FINGERSTICK GLU 88 mg/dL Normal 74-106 [facility] Comment on above: Result Comment: VERITO GEMENT OF PATIENT CARE PER NURSING PROTOCOL Performed By: #### L 501.080 ####[facility] [address] [place], [address] CBC W/Diff, Automatedon 03-01 Absolute Neut Normal 2.0-7.7 [facility] Comment on above: Result Comment: DULI RONDA ORDER DOES NOT NEED PER TRESSA NURSE Performed By: #### B 92628-9, L100.0100, BTS ####[facility] [address] [place], [address] HCT Normal 37-47 [facility] Comment on above: Result Comment: DULI RONDA ORDER DOES NOT NEED PER TRESSA NURSE Performed By: #### B 52177-1, L100.0100, BTS ####[facility] [address] [place], [address] HGB Normal 12.0-15.0 [facility] Comment on above: Result Comment: DULI RONDA ORDER DOES NOT NEED PER TRESSA NURSE Performed By: #### B 12048-1, L100.0100, BTS ####[facility] [address] [place], [address] MCH Normal 27.0-32.0 [facility] Comment on above: Result Comment: DULI RONDA ORDER DOES NOT NEED PER TRESSA NURSE Performed By: #### B 22321-0, L100.0100, BTS ####[facility] [address] [place], [address] MCHC Normal 32-36 [facility] Comment on above: Result Comment: DULI RONDA ORDER DOES NOT NEED PER TRESSA NURSE Performed By: #### B 05514-9, L100.0100, BTS ####[facility] [address] [place], [address] MCV Normal 81-99 [facility] Comment on above: Result Comment: DULI RONDA ORDER DOES NOT NEED PER TRESSA NURSE Performed By: #### B 44846-9, L100.0100, BTS ####[facility] [address] [place], [address] NEUT% Normal 47-70 [facility] Comment on above: Result Comment: DULI RONDA ORDER DOES NOT NEED PER TRESSA NURSE Performed By: #### B 54585-9, L100.0100, BTS ####[facility] [address] [place], [address] PLT Normal 150-450 [facility] Comment on above: Result Comment: DULI RONDA ORDER DOES NOT NEED PER TRESSA NURSE Performed By: #### Lore 65801-3, L100.0100, BTS ####[facility] [address] [place], [address] RBC Normal 4.2-5.4 [facility] Comment on above: Result Comment: DULI RONDA ORDER DOES NOT NEED PER TRESSA NURSE Performed By: #### B 97754-3, L100.0100, BTS ####[facility] [address] [place], [address] RDW CV Normal 11.6-14.6 [facility] Comment on above: Result Comment: DULI RONDA ORDER DOES NOT NEED PER TRESSA NURSE Performed By: #### B 98232-8, L100.0100, BTS ####[facility] [address] [place], [address] RDW SD Normal 35.1-43.9 [facility] Comment on above: Result Comment: DULI RONDA ORDER DOES NOT NEED PER TRESSA NURSE Performed By: #### B 43626-5, L100.0100, BTS ####[facility] [address] [place], [address] WBC Normal 4.4-11.0 [facility] Comment on above: Result Comment: DULI RONDA ORDER DOES NOT NEED PER TRESSA NURSE Performed By: #### B 51643-6, L100.0100, BTS ####[facility] [address] [place], [address] CBC-Complete Blood Cnt No Di ffon 03-10-2025 Erythrocyte distribution width (RBC) [Ratio] 13.2 % Normal 11.6-14.6 [facility] Comment on above: Performed By: #### L 501.4405, L501.0900, L501.1105, L501.1400, L100.0500, L501.4100 ####[facility] [address] [place], [address] Hematocrit (Bld) [Volume fraction] 32.4 % Low 37-47 [facility] Comment on above: Performed By: #### L 501.4405, L501.0900, L501.1105, L501.1400, L100.0500, L501.4100 ####[facility] [address] [place], [address] Hemoglobin (Bld) [Mass/Vol] 11.2 g/dL Low 12.0-15.0 [facility] Comment on above: Performed By: #### L 501.4405, L501.0900, L501.1105, L501.1400, L100.0500, L501.4100 ####[facility] [address] [place], [address] MCH (RBC) [Entitic mass] 30.7 pg Normal 27.0-32.0 [facility] Comment on above: Performed By: #### L 501.4405, L501.0900, L501.1105, L501.1400, L100.0500, L501.4100 ####[facility] [address] [place], [address] MCHC (RBC) [Mass/Vol] 34.6 g/dL Normal 32-36 [facility] Comment on above: Performed By: #### L 501.4405, L501.0900, L501.1105, L501.1400, L100.0500, L501.4100 ####[facility] [address] [place], [address] MCV (RBC) [Entitic vol] 88.8 fL Normal 81-99 [facility] Comment on above: Performed By: #### L 501.4405, L501.0900, L501.1105, L501.1400, L100.0500, L501.4100 ####[facility] [address] [place], [address] Platelet mean volume (Bld) [Entitic vol] 11.8 fL Normal 6.2-12.0 [facility] Comment on above: Performed By: #### L 501.4405, L501.0900, L501.1105, L501.1400, L100.0500, L501.4100 ####[facility] [address] [place], [address] Platelets (Bld) [#/Vol] 185 10*3/uL Normal 150-450 [facility] Comment on above: Performed By: #### L 501.4405, L501.0900, L501.1105, L501.1400, L100.0500, L501.4100 ####[facility] [address] [place], [address] RBC (Bld) [#/Vol] 3.65 10*6/uL Low 4.2-5.4 [facility] Comment on above: Performed By: #### L 501.4405, L501.0900, L501.1105, L501.1400, L100.0500, L501.4100 ####[facility] [address] [place], [address] RDW SD 41.9 fl Normal 35.1-43.9 [facility] Comment on above: Performed By: #### L 501.4405, L501.0900, L501.1105, L501.1400, L100.0500, L501.4100 ####[facility] [address] [place], [address] WBC (Bld) [#/Vol] 7.7 10*3/uL Normal 4.4-11.0 [facility] Comment on above: Performed By: #### L 501.4405, L501.0900, L501.1105, L501.1400, L100.0500, L501.4100 ####[facility] [address] [place], [address] H AND P Exam - OB/GYNon - H&P Exam - AIRCRAFT RIVETER Normal [facility] LDHon 03-10-2025 LDH 271 U/L High 84-246 [facility] Comment on above: Result Comment: Hemo lysis present, Results??could be affected.?? Performed By: #### L 504.2610 ####[facility] [address] [place], [address] M8200.0100on 03-10-2025 M8200.0100 Positive Normal [facility] Comment on above: Performed By: #### M 8200.0100 ####[facility] [address] [place], [address] [facility] Office Visit Reporton 03-10-2025 [facility] Office Visit Report Normal [facility] Protein+Creatinine Ratio,Uri neon 03-10-2025 PROT:CRE RATIO 222 mg/g CRE High 0-200 [facility] Comment on above: Performed By: #### L 501.4405, L501.0900, L501.1105, L501.1400, L100.0500, L501.4100 ####[facility] [address] [place], [address] Protein (U) [Mass/Vol] 16.8 mg/dL High 0.0-12.0 [facility] Comment on above: Performed By: #### L 501.4405, L501.0900, L501.1105, L501.1400, L100.0500, L501.4100 ####[facility] [address] [place], [address] UR CREAT 75.70 mg/dL Normal 28.00-217.00 [facility] Comment on above: Performed By: #### L 501.4405, L501.0900, L501.1105, L501.1400, L100.0500, L501.4100 ####[facility] [address] [place], [address] Serum Creatinine AND GFRon 1 Creatinine [Mass/Vol] 0.77 mg/dL Normal 0.70-1.20 [facility] Comment on above: Performed By: #### L 501.4405, L501.0900, L501.1105, L501.1400, L100.0500, L501.4100 ####[facility] [address] [place], [address] GFR/1.73 sq M.predicted among non-blacks MDRD (S/P/Bld) [Vol rate/Area] 112 mL/min/{1.73_m2} Normal >60 [facility] Comment on above: Result Comment: mL/m in/1.73m2 CKD-EPI Creatinine Equation (2020) Performed By: #### L 501.4405, L501.0900, L501.1105, L501.1400, L100.0500, L501.4100 ####[facility] [address] [place], [address] Syphilis Antibodieson 2024 Syphilis Abs Non-Reactive Normal Nonreactive [facility] Comment on above: Performed By: #### L 509.8002 ####[facility] [address] [place], [address] Uric Acidon 03-10-2025 URIC 10.7 mg/dL High 2.6-6.0 [facility] Comment on above: Result Comment: The drugs N-Acetylcysteine and Metamizole may falselydepress this assay. Performed By: #### L 501.4405, L501.0900, L501.1105, L501.1400, L100.0500, L501.4100 ####[facility] [address] [place], [address] Urine Drug Screen (VISTA)on 03-10-2025 AMPHETAMINES Negative Normal <1000 ng/mL [facility] Comment on above: Order Comment: THC Performed By: #### L 505.5000 ####[facility] [address] [place], [address] BARBITIURATES Negative Normal < 200 ng/mL [facility] Comment on above: Order Comment: THC Performed By: #### L 505.5000 ####[facility] [address] [facility] [address] BENZODIAZIPINE Negative Normal < 200 ng/mL [facility] Comment on above: Order Comment: THC Performed By: #### L 505.5000 ####[facility] [address] [place] [address] BUP Ur Drug Scr Negative Normal < 200 ng/mL [facility] Comment on above: Order Comment: THC Performed By: #### L 505.5000 ####[facility] [address] [place] [address] COCAINE Negative Normal < 300 ng/mL [facility] Comment on above: Order Comment: THC Performed By: #### L 505.5000 ####[facility] [address] [place] [address] Fentanyl Negative Normal <5 ng/mL [facility] Comment on above: Order Comment: THC Result Comment: CONF IRMATORY TESTING FOR ALL POSITIVE URINE DRUG SCREENRESULTS WILL ONLY BE SENT OUT UPON PHYSICIAN ORDER.Len Pro Urine Drug Screen methods provide only preliminaryanalytical test results. A more specific alternate chemicalmethod must be used in order to obtain a confirmedanalytical result. Gas chromatography/mass spectrometery(GC/MS) is the preferred confirmatory method. Clinicalconsideration and professional judgement should be appliedto any drug of abuse test result, particularly whenpreliminary positive results are used.Urine TCA testing must be ordered separately. Use testmnemonic: UTCA Performed By: #### L 505.5000 ####[facility] [address] [place], [address] METHADONE Negative Normal < 300 ng/mL [facility] Comment on above: Order Comment: THC Performed By: #### L 505.5000 ####[facility] [address] [place], [address] OPIATES Negative Normal < 300 ng/mL [facility] Comment on above: Order Comment: THC Performed By: #### L 505.5000 ####[facility] [address] [place], [address] OXYCODONE Negative Normal < 100 ng/mL [facility] Comment on above: Order Comment: THC Performed By: #### L 505.5000 ####[facility] [address] [place], [address] PCP Negative Normal < 25 ng/mL [facility] Comment on above: Order Comment: THC Performed By: #### L 505.5000 ####[facility] [address] [place], [address] THC Negative Normal < 50 ng/mL [facility] Comment on above: Order Comment: THC Performed By: #### L 505.5000 ####[facility] [address] [place], [address] Bedside Glucoseon 03-07-2025 FINGERSTICK GLU 73 mg/dL Low 74-106 [facility] Comment on above: Result Comment: VERITO HUMPHRIES OF PATIENT CARE PER NURSING PROTOCOL Performed By: #### L 501.080 ####[facility] [address] [place], [address] OB Triage Physician Noteon 1 OB Triage Physician Note Normal [facility] Mat Roller Office Visit Reporton 03-07-2025 Mat Roller Office Visit Report Normal [facility] CBC W/Diff, Automatedon 10-0 Absolute Lymph 0.44 X10 3/uL Low 0.83-4.51 [facility] Comment on above: Performed By: #### L 500.4050, L100.0100 ####[facility] [address] [place], [address] Absolute Neut 9.5 X10 3/uL High 2.0-7.7 [facility] Comment on above: Performed By: #### L 500.4050, L100.0100 ####[facility] [address] [place], [address] Basophils/100 WBC (Bld) 0.4 % Normal 0-1 [facility] Comment on above: Performed By: #### L 500.4050, L100.0100 ####[facility] [address] [place], [address] Eosinophils/100 WBC (Bld) 0.3 % Normal 0-5 [facility] Comment on above: Performed By: #### L 500.4050, L100.0100 ####[facility] [address] [place], [address] Erythrocyte distribution width (RBC) [Ratio] 13.5 % Normal 11.6-14.6 [facility] Comment on above: Performed By: #### L 500.4050, L100.0100 ####[facility] [address] [place], [address] Hematocrit (Bld) [Volume fraction] 34.3 % Low 37-47 [facility] Comment on above: Performed By: #### L 500.4050, L100.0100 ####[facility] [address] [place], [address] Hemoglobin (Bld) [Mass/Vol] 12.1 g/dL Normal 12.0-15.0 [facility] Comment on above: Performed By: #### L 500.4050, L100.0100 ####[facility] [address] [place], [address] IG% 2.300 High 0.0-0.9 [facility] Comment on above: Result Comment: IG% - Immature Granulocytes (promyelocytes, myelocytes andmetamyelocytes) > 1% indicates that a LEFT SHIFT is Present. Performed By: #### L 500.4050, L100.0100 ####[facility] [address] [place], [address] Lymphocytes/100 WBC (Bld) 4.1 % Low 19-41 [facility] Comment on above: Performed By: #### L 500.4050, L100.0100 ####[facility] [address] [place], [address] MCH (RBC) [Entitic mass] 31.8 pg Normal 27.0-32.0 [facility] Comment on above: Performed By: #### L 500.4050, L100.0100 ####[facility] [address] [place], [address] MCHC (RBC) [Mass/Vol] 35.3 g/dL Normal 32-36 [facility] Comment on above: Performed By: #### L 500.4050, L100.0100 ####[facility] [address] [place], [address] MCV (RBC) [Entitic vol] 90.0 fL Normal 81-99 [facility] Comment on above: Performed By: #### L 500.4050, L100.0100 ####[facility] [address] [place], [address] Monocytes/100 WBC (Bld) 3.9 % Normal 0-10 [facility] Comment on above: Performed By: #### L 500.4050, L100.0100 ####[facility] [address] [place], [address] Neutrophils/100 WBC (Bld) 89.0 % High 47-70 [facility] Comment on above: Performed By: #### L 500.4050, L100.0100 ####[facility] [address] [place], [address] Nucleated RBC (Bld) [#/Vol] 0.8 10*3/uL Normal 0-5 [facility] Comment on above: Performed By: #### L 500.4050, L100.0100 ####[facility] [address] [place], [address] Platelet mean volume (Bld) [Entitic vol] 11.2 fL Normal 6.2-12.0 [facility] Comment on above: Performed By: #### L 500.4050, L100.0100 ####[facility] [address] [place], [address] Platelets (Bld) [#/Vol] 172 10*3/uL Normal 150-450 [facility] Comment on above: Performed By: #### L 500.4050, L100.0100 ####[facility] [address] [place], [address] RBC (Bld) [#/Vol] 3.81 10*6/uL Low 4.2-5.4 [facility] Comment on above: Performed By: #### L 500.4050, L100.0100 ####[facility] [address] [place], [address] RDW SD 43.7 fl Normal 35.1-43.9 [facility] Comment on above: Performed By: #### L 500.4050, L100.0100 ####[facility] [address] [place], [address] WBC (Bld) [#/Vol] 10.7 10*3/uL Normal 4.4-11.0 [facility] Comment on above: Performed By: #### L 500.4050, L100.0100 ####[facility] [address] [place], [address] Comprehensive Metabolic [facility] 03-05-2025 Albumin [Mass/Vol] 3.3 g/dL Low 3.5-5.0 [facility] Comment on above: Performed By: #### L 500.4050, L100.0100 ####[facility] [address] [place], [address] Albumin/Globulin [Mass ratio] 1.2 {ratio} Normal 0.9-2.4 [facility] Comment on above: Performed By: #### L 500.4050, L100.0100 ####[facility] [address] [place], [address] ALK PHOS 124 U/L High 35-104 [facility] Comment on above: Performed By: #### L 500.4050, L100.0100 ####[facility] [address] [place], [address] ALT [Catalytic activity/Vol] 26 U/L Normal <=34 [facility] Comment on above: Performed By: #### L 500.4050, L100.0100 ####[facility] [address] [place], [address] AST [Catalytic activity/Vol] 55 U/L High <=31 [facility] Comment on above: Performed By: #### L 500.4050, L100.0100 ####[facility] [address] [place], [address] Bilirubin [Mass/Vol] 0.40 mg/dL Normal 0.00-1.30 [facility] Comment on above: Performed By: #### L 500.4050, L100.0100 ####[facility] [address] [place], [address] BUN/CRE 8.6 RATIO Low 10-20 [facility] Comment on above: Performed By: #### L 500.4050, L100.0100 ####[facility] [address] [place], [address] Calcium [Mass/Vol] 9.0 mg/dL Normal 7.6-11.0 [facility] Comment on above: Performed By: #### L 500.4050, L100.0100 ####[facility] [address] [place], [address] Chloride [Moles/Vol] 102 mmol/L Normal 98-108 [facility] Comment on above: Performed By: #### L 500.4050, L100.0100 ####[facility] [address] [place], [address] CO2 [Moles/Vol] 19.0 mmol/L Low 21.0-32.0 [facility] Comment on above: Performed By: #### L 500.4050, L100.0100 ####[facility] [address] [place], [address] Creatinine [Mass/Vol] 0.76 mg/dL Normal 0.70-1.20 [facility] Comment on above: Performed By: #### L 500.4050, L100.0100 ####[facility] [address] [place], [address] ECRCL 146.51 ml/min Normal 50-250 [facility] Comment on above: Performed By: #### L 500.4050, L100.0100 ####[facility] [address] [place], [address] GAP 13 Normal 5-15 [facility] Comment on above: Performed By: #### L 500.4050, L100.0100 ####[facility] [address] [place], [address] GFR/1.73 sq M.predicted among non-blacks MDRD (S/P/Bld) [Vol rate/Area] 113 mL/min/{1.73_m2} Normal >60 [facility] Comment on above: Result Comment: mL/m in/1.73m2 CKD-EPI Creatinine Equation (2020) Performed By: #### L 500.4050, L100.0100 ####[facility] [address] [place], [address] Globulin (S) [Mass/Vol] 2.7 g/dL Normal 2.2-4.2 [facility] Comment on above: Performed By: #### L 500.4050, L100.0100 ####[facility] [address] [place], [address] Glucose [Mass/Vol] 95 mg/dL Normal 70-99 [facility] Comment on above: Performed By: #### L 500.4050, L100.0100 ####[facility] [address] [place], [address] Potassium [Moles/Vol] 4.0 mmol/L Normal 3.3-5.1 [facility] Comment on above: Performed By: #### L 500.4050, L100.0100 ####[facility] [address] [place], [address] Sodium [Moles/Vol] 134 mmol/L Normal 133-145 [facility] Comment on above: Performed By: #### L 500.4050, L100.0100 ####[facility] [address] [place], [address] T PROT 6.0 g/dL Normal 5.9-8.4 [facility] Comment on above: Performed By: #### L 500.4050, L100.0100 ####[facility] [address] [place], [address] Urea nitrogen [Mass/Vol] 7 mg/dL Normal 4-19 [facility] Comment on above: Performed By: #### L 500.4050, L100.0100 ####[facility] [address] [place], [address] Emergency Department Summary on 03-05-2025 Emergency Department Summary Normal [facility] M100.678on 03-05-2025 M100.678 SARS-CoV-2 (COVID 19 ) Negative INFLUENZA A Negative INFLUENZA B Negative RSV PCR Negative Normal [facility] Comment on above: Performed By: #### M 100.678 ####[facility] [address] [place], [address] OB Triage Physician Noteon 1 OB Triage Physician Note Normal [facility] Urinalysis, Completeon 03-05 EPI,SQUAMOUS 0-5 SEEN Normal 5-10 [facility] Comment on above: Order Comment: CLEAN CATCH Performed By: #### L 400.0001 ####[facility] [address] [place], [address] WBC 5-10 SEEN Normal 0-5 [facility] Comment on above: Order Comment: CLEAN CATCH Performed By: #### L 400.0001 ####[facility] [address] [place], [address] BACTERIA 0 SEEN Normal None Seen [facility] Comment on above: Order Comment: CLEAN CATCH Performed By: #### L 400.0001 ####[facility] [address] [place], [address] Mucus Ql (Urine sed) 0 SEEN Normal [facility] Comment on above: Order Comment: CLEAN CATCH Performed By: #### L 400.0001 ####[facility] [address] [place], [address] RBC 0 SEEN Normal 0-5 [facility] Comment on above: Order Comment: CLEAN CATCH Performed By: #### L 400.0001 ####[facility] [address] [place], [address] AST(SGOT)on 03-04-2025 AST [Catalytic activity/Vol] 30 U/L Normal <=31 [facility] Comment on above: Performed By: #### L 501.0900, L501.1400, L501.4100, L501.4405, L100.0500, L501.1105 ####[facility] [address] [place], [address] Alanine Aminotransferas (SGP T)on 03-04-2025 ALT [Catalytic activity/Vol] 16 U/L Normal <=34 [facility] Comment on above: Performed By: #### L 501.0900, L501.1400, L501.4100, L501.4405, L100.0500, L501.1105 ####[facility] [address] [place], [address] CBC-Complete Blood Cnt No Di ffon 03-04-2025 Erythrocyte distribution width (RBC) [Ratio] 13.4 % Normal 11.6-14.6 [facility] Comment on above: Performed By: #### L 501.0900, L501.1400, L501.4100, L501.4405, L100.0500, L501.1105 ####[facility] [address] [place], [address] Hematocrit (Bld) [Volume fraction] 34.6 % Low 37-47 [facility] Comment on above: Performed By: #### L 501.0900, L501.1400, L501.4100, L501.4405, L100.0500, L501.1105 ####[facility] [address] [place], [address] Hemoglobin (Bld) [Mass/Vol] 11.9 g/dL Low 12.0-15.0 [facility] Comment on above: Performed By: #### L 501.0900, L501.1400, L501.4100, L501.4405, L100.0500, L501.1105 ####[facility] [address] [place], [address] MCH (RBC) [Entitic mass] 31.1 pg Normal 27.0-32.0 [facility] Comment on above: Performed By: #### L 501.0900, L501.1400, L501.4100, L501.4405, L100.0500, L501.1105 ####[facility] [address] [place], [address] MCHC (RBC) [Mass/Vol] 34.4 g/dL Normal 32-36 [facility] Comment on above: Performed By: #### L 501.0900, L501.1400, L501.4100, L501.4405, L100.0500, L501.1105 ####[facility] [address] [place], [address] MCV (RBC) [Entitic vol] 90.3 fL Normal 81-99 [facility] Comment on above: Performed By: #### L 501.0900, L501.1400, L501.4100, L501.4405, L100.0500, L501.1105 ####[facility] [address] [place], [address] Platelet mean volume (Bld) [Entitic vol] 11.3 fL Normal 6.2-12.0 [facility] Comment on above: Performed By: #### L 501.0900, L501.1400, L501.4100, L501.4405, L100.0500, L501.1105 ####[facility] [address] [place], [address] Platelets (Bld) [#/Vol] 179 10*3/uL Normal 150-450 [facility] Comment on above: Performed By: #### L 501.0900, L501.1400, L501.4100, L501.4405, L100.0500, L501.1105 ####[facility] [address] [place], [address] RBC (Bld) [#/Vol] 3.83 10*6/uL Low 4.2-5.4 [facility] Comment on above: Performed By: #### L 501.0900, L501.1400, L501.4100, L501.4405, L100.0500, L501.1105 ####[facility] [id number] [place], [address] RDW SD 44.1 fl High 35.1-43.9 [facility] Comment on above: Performed By: #### L 501.0900, L501.1400, L501.4100, L501.4405, L100.0500, L501.1105 ####[facility] [address] [place], [address] WBC (Bld) [#/Vol] 11.4 10*3/uL High 4.4-11.0 [facility] Comment on above: Performed By: #### L 501.0900, L501.1400, L501.4100, L501.4405, L100.0500, L501.1105 ####[facility] [address] [place], [address] Protein+Creatinine Ratio,Uri neon 03-04-2025 PROT:CRE RATIO 378 mg/g CRE High 0-200 [facility] Comment on above: Performed By: #### L 501.0900, L501.1400, L501.4100, L501.4405, L100.0500, L501.1105 ####[facility] [address] [place], [address] Protein (U) [Mass/Vol] 9.8 mg/dL Normal 0.0-12.0 [facility] Comment on above: Performed By: #### L 501.0900, L501.1400, L501.4100, L501.4405, L100.0500, L501.1105 ####[facility] [address] [place], [address] UR CREAT 26.00 mg/dL Low 28.00-217.00 [facility] Comment on above: Performed By: #### L 501.0900, L501.1400, L501.4100, L501.4405, L100.0500, L501.1105 ####[facility] [address] [place], [address] Serum Creatinine AND GFRon 1 Creatinine [Mass/Vol] 0.58 mg/dL Low 0.70-1.20 [facility] Comment on above: Performed By: #### L 501.0900, L501.1400, L501.4100, L501.4405, L100.0500, L501.1105 ####[facility] [address] [place], [address] ECRCL 190.37 ml/min Normal 50-250 [facility] Comment on above: Performed By: #### L 501.0900, L501.1400, L501.4100, L501.4405, L100.0500, L501.1105 ####[facility] [address] [place], [address] GFR/1.73 sq M.predicted among non-blacks MDRD (S/P/Bld) [Vol rate/Area] 130 mL/min/{1.73_m2} Normal >60 [facility] Comment on above: Result Comment: mL/m in/1.73m2 CKD-EPI Creatinine Equation (2020) Performed By: #### L 501.0900, L501.1400, L501.4100, L501.4405, L100.0500, L501.1105 ####[facility] [address] [place], [address] Uric Acidon 03-04-2025 URIC 7.3 mg/dL High 2.6-6.0 [facility] Comment on above: Result Comment: The drugs N-Acetylcysteine and Metamizole may falselydepress this assay. Performed By: #### L 501.0900, L501.1400, L501.4100, L501.4405, L100.0500, L501.1105 ####[facility] [address] [place], [address] Bedside Glucoseon 03-03-2025 FINGERSTICK GLU 118 mg/dL High 74-106 [facility] Comment on above: Result Comment: VERITO HUMPHRIES OF PATIENT CARE PER NURSING PROTOCOL Performed By: #### L 501.080 ####[facility] [address] [place], [address] CBC W/Diff, Automatedon 10 Absolute Lymph 1.11 X10 3/uL Normal 0.83-4.51 [facility] Comment on above: Performed By: #### L 100.0100 ####[facility] [address] [place], [address] Absolute Neut 12.0 X10 3/uL High 2.0-7.7 [facility] Comment on above: Performed By: #### L 100.0100 ####[facility] [address] [place], [address] Basophils/100 WBC (Bld) 0.4 % Normal 0-1 [facility] Comment on above: Performed By: #### L 100.0100 ####[facility] [address] [place], [address] Eosinophils/100 WBC (Bld) 0.1 % Normal 0-5 [facility] Comment on above: Performed By: #### L 100.0100 ####[facility] [address] [place], [address] Erythrocyte distribution width (RBC) [Ratio] 13.2 % Normal 11.6-14.6 [facility] Comment on above: Performed By: #### L 100.0100 ####[facility] [address] [place], [address] Hematocrit (Bld) [Volume fraction] 32.6 % Low 37-47 [facility] Comment on above: Performed By: #### L 100.0100 ####[facility] [address] [place], [address] Hemoglobin (Bld) [Mass/Vol] 11.3 g/dL Low 12.0-15.0 [facility] Comment on above: Performed By: #### L 100.0100 ####[facility] [address] [place], [address] IG% 1.900 High 0.0-0.9 [facility] Comment on above: Result Comment: IG% - Immature Granulocytes (promyelocytes, myelocytes andmetamyelocytes) > 1% indicates that a LEFT SHIFT is Present. Performed By: #### L 100.0100 ####[facility] [address] [place], [address] Lymphocytes/100 WBC (Bld) 7.9 % Low 19-41 [facility] Comment on above: Performed By: #### L 100.0100 ####[facility] [address] [place], [address] MCH (RBC) [Entitic mass] 31.3 pg Normal 27.0-32.0 [facility] Comment on above: Performed By: #### L 100.0100 ####[facility] [address] [place], [address] MCHC (RBC) [Mass/Vol] 34.7 g/dL Normal 32-36 [facility] Comment on above: Performed By: #### L 100.0100 ####[facility] [address] [place], [address] MCV (RBC) [Entitic vol] 90.3 fL Normal 81-99 [facility] Comment on above: Performed By: #### L 100.0100 ####[facility] [address] [place], [address] Monocytes/100 WBC (Bld) 4.5 % Normal 0-10 [facility] Comment on above: Performed By: #### L 100.0100 ####[facility] [address] [place], [address] Neutrophils/100 WBC (Bld) 85.2 % High 47-70 [facility] Comment on above: Performed By: #### L 100.0100 ####[facility] [address] [place], [address] Nucleated RBC (Bld) [#/Vol] 0.1 10*3/uL Normal 0-5 [facility] Comment on above: Performed By: #### L 100.0100 ####[facility] [address] [place], [address] Platelet mean volume (Bld) [Entitic vol] 11.2 fL Normal 6.2-12.0 [facility] Comment on above: Performed By: #### L 100.0100 ####[facility] [address] [place], [address] Platelets (Bld) [#/Vol] 179 10*3/uL Normal 150-450 [facility] Comment on above: Performed By: #### L 100.0100 ####[facility] [address] [place], [address] RBC (Bld) [#/Vol] 3.61 10*6/uL Low 4.2-5.4 [facility] Comment on above: Performed By: #### L 100.0100 ####[facility] [address] [place], [address] RDW SD 43.1 fl Normal 35.1-43.9 [facility] Comment on above: Performed By: #### L 100.0100 ####[facility] [address] [place], [address] WBC (Bld) [#/Vol] 14.1 10*3/uL High 4.4-11.0 [facility] Comment on above: Performed By: #### L 100.0100 ####[facility] [address] [place], [address] Comprehensive Metabolic Prof ilon 03-03-2025 Albumin [Mass/Vol] 3.2 g/dL Low 3.5-5.0 [facility] Comment on above: Performed By: #### L 500.4050 ####[facility] [address] [place], [address] Albumin/Globulin [Mass ratio] 1.2 {ratio} Normal 0.9-2.4 [facility] Comment on above: Performed By: #### L 500.4050 ####[facility] [address] [place], [address] ALK PHOS 114 U/L High 35-104 [facility] Comment on above: Performed By: #### L 500.4050 ####[facility] [address] [place], [address] ALT [Catalytic activity/Vol] 15 U/L Normal <=34 [facility] Comment on above: Performed By: #### L 500.4050 ####[facility] [address] [place], [address] AST [Catalytic activity/Vol] 26 U/L Normal <=31 [facility] Comment on above: Performed By: #### L 500.4050 ####[facility] [address] [place], [address] Bilirubin [Mass/Vol] 0.22 mg/dL Normal 0.00-1.30 [facility] Comment on above: Performed By: #### L 500.4050 ####[facility] [address] [place], [address] BUN/CRE 16.5 RATIO Normal 10-20 [facility] Comment on above: Performed By: #### L 500.4050 ####[facility] [address] [place], [address] Calcium [Mass/Vol] 9.1 mg/dL Normal 7.6-11.0 [facility] Comment on above: Performed By: #### L 500.4050 ####[facility] [address] [place], [address] Chloride [Moles/Vol] 105 mmol/L Normal 98-108 [facility] Comment on above: Performed By: #### L 500.4050 ####[facility] [address] [place], [address] CO2 [Moles/Vol] 17.4 mmol/L Low 21.0-32.0 [facility] Comment on above: Performed By: #### L 500.4050 ####[facility] [address] [place], [address] Creatinine [Mass/Vol] 0.51 mg/dL Low 0.70-1.20 [facility] Comment on above: Performed By: #### L 500.4050 ####[facility] [address] [place], [address] ECRCL 216.86 ml/min Normal 50-250 [facility] Comment on above: Performed By: #### L 500.4050 ####[facility] [address] [place], [address] GAP 13 Normal 5-15 [facility] Comment on above: Performed By: #### L 500.4050 ####[facility] [address] [place], [address] GFR/1.73 sq M.predicted among non-blacks MDRD (S/P/Bld) [Vol rate/Area] 134 mL/min/{1.73_m2} Normal >60 [facility] Comment on above: Result Comment: mL/m in/1.73m2 CKD-EPI Creatinine Equation (2020) Performed By: #### L 500.4050 ####[facility] [address] [place], [address] Globulin (S) [Mass/Vol] 2.7 g/dL Normal 2.2-4.2 [facility] Comment on above: Performed By: #### L 500.4050 ####[facility] [address] [place], [address] Glucose [Mass/Vol] 112 mg/dL High 70-99 [facility] Comment on above: Performed By: #### L 500.4050 ####[facility] [address] [place], [address] Potassium [Moles/Vol] 4.1 mmol/L Normal 3.3-5.1 [facility] Comment on above: Performed By: #### L 500.4050 ####[facility] [address] [place], [address] Sodium [Moles/Vol] 135 mmol/L Normal 133-145 [facility] Comment on above: Performed By: #### L 500.4050 ####[facility] [address] [place], [address] T PROT 6.0 g/dL Normal 5.9-8.4 [facility] Comment on above: Performed By: #### L 500.4050 ####[facility] [address] [place], [address] Urea nitrogen [Mass/Vol] 8 mg/dL Normal 4-19 [facility] Comment on above: Performed By: #### L 500.4050 ####[facility] [address] [place], [address] Rule out Beta Strep (Grp. B) on 03-03-2025 TIFFANY Group B Beta Streptococcus is not isolated. Normal [facility] Comment on above: Performed By: #### M 100.3400 ####[facility] [address] [place], [address] 24 HR UR Creatinine Clearanc yanet 03-02-2025 CREAT CLEARANCE 121 ml/min Normal 100-200 [facility] Comment on above: Result Comment: AMENDED REPORT 03/02/252143 CREAT CLEARANCE previously reported as: 201 H ml/min Performed By: #### L 500.9000, L502.000, L500.4507 ####[facility] [address] [place], [address] 24 HR Urine Creatinineon UR.CREAT/24hr 954.5 mg/24 hr Normal 740.0-1540.0 [facility] Comment on above: Performed By: #### L 500.9000, L502.000, L500.4507 ####[facility] [address] [place], [address] Basic Metabolic Profile (BMP )on 03-02-2025 BUN/CRE 18.6 RATIO Normal 10- [facility] Comment on above: Performed By: #### L 500.2500 ####[facility] [address] [place], [address] Calcium [Mass/Vol] 9.3 mg/dL Normal 7.6-11.0 [facility] Comment on above: Performed By: #### L 500.2500 ####[facility] [address] [place], [address] Chloride [Moles/Vol] 103 mmol/L Normal 98-108 [facility] Comment on above: Performed By: #### L 500.2500 ####[facility] [address] [place], [address] CO2 [Moles/Vol] 18.4 mmol/L Low 21.0-32.0 [facility] Comment on above: Performed By: #### L 500.2500 ####[facility] [address] [place], [address] Creatinine [Mass/Vol] 0.57 mg/dL Low 0.70-1.20 [facility] Comment on above: Performed By: #### L 500.2500 ####[facility] [address] [place], [address] ECRCL 194.03 ml/min Normal 50-250 [facility] Comment on above: Performed By: #### L 500.2500 ####[facility] [address] [place], [address] GAP 13 Normal 5-15 [facility] Comment on above: Performed By: #### L 500.2500 ####[facility] [address] [place], [address] GFR/1.73 sq M.predicted among non-blacks MDRD (S/P/Bld) [Vol rate/Area] 131 mL/min/{1.73_m2} Normal >60 [facility] Comment on above: Result Comment: mL/m in/1.73m2 CKD-EPI Creatinine Equation (2020) Performed By: #### L 500.2500 ####[facility] [address] [place], [address] Glucose [Mass/Vol] 103 mg/dL High 70-99 [facility] Comment on above: Performed By: #### L 500.2500 ####[facility] [address] [place], [address] Potassium [Moles/Vol] 4.1 mmol/L Normal 3.3-5.1 [facility] Comment on above: Performed By: #### L 500.2500 ####[facility] [address] [place], [address] Sodium [Moles/Vol] 134 mmol/L Normal 133-145 [facility] Comment on above: Performed By: #### L 500.2500 ####[facility] [address] [place], [address] Urea nitrogen [Mass/Vol] 11 mg/dL Normal 4-19 [facility] Comment on above: Performed By: #### L 500.2500 ####[facility] [address] [place], [address] Bedside Glucoseon 03-02-2025 FINGERSTICK GLU 157 mg/dL High 74-106 [facility] Comment on above: Result Comment: VERITO GEMENT OF PATIENT CARE PER NURSING PROTOCOL Performed By: #### L 501.080 ####[facility] [address] [place], [address] FINGERSTICK GLU 105 mg/dL Normal 74-106 [facility] Comment on above: Result Comment: VERITO GEMENT OF PATIENT CARE PER NURSING PROTOCOL Performed By: #### L 501.080 ####[facility] [address] [place], [address] FINGERSTICK GLU 135 mg/dL High 74-106 [facility] Comment on above: Result Comment: VERITO GEMENT OF PATIENT CARE PER NURSING PROTOCOL Performed By: #### L 501.080 ####[facility] [address] [place], [address] FINGERSTICK GLU 127 mg/dL High 74-106 [facility] Comment on above: Result Comment: VERITO GEMENT OF PATIENT CARE PER NURSING PROTOCOL Performed By: #### L 501.080 ####[facility] [address] [place], [address] CBC W/Diff, Automatedon 10-0 2-2025 Absolute Lymph 1.21 X10 3/uL Normal 0.83-4.51 [facility] Comment on above: Performed By: #### L 100.0100 ####[facility] [address] [place], [address] Absolute Neut 12.3 X10 3/uL High 2.0-7.7 [facility] Comment on above: Performed By: #### L 100.0100 ####[facility] [address] [place], [address] Basophils/100 WBC (Bld) 0.1 % Normal 0-1 [facility] Comment on above: Performed By: #### L 100.0100 ####[facility] [address] [place], [address] Eosinophils/100 WBC (Bld) 0.1 % Normal 0-5 [facility] Comment on above: Performed By: #### L 100.0100 ####[facility] [address] [place], [address] Erythrocyte distribution width (RBC) [Ratio] 13.3 % Normal 11.6-14.6 [facility] Comment on above: Performed By: #### L 100.0100 ####[facility] [address] [place], [address] Hematocrit (Bld) [Volume fraction] 33.5 % Low 37-47 [facility] Comment on above: Performed By: #### L 100.0100 ####[facility] [address] [place], [address] Hemoglobin (Bld) [Mass/Vol] 11.9 g/dL Low 12.0-15.0 [facility] Comment on above: Performed By: #### L 100.0100 ####[facility] [address] [place], [address] IG% 0.800 Normal 0.0-0.9 [facility] Comment on above: Result Comment: IG% - Immature Granulocytes (promyelocytes, myelocytes andmetamyelocytes) > 1% indicates that a LEFT SHIFT is Present. Performed By: #### L 100.0100 ####[facility] [address] [place], [address] Lymphocytes/100 WBC (Bld) 8.4 % Low 19-41 [facility] Comment on above: Performed By: #### L 100.0100 ####[facility] [address] [place], [address] MCH (RBC) [Entitic mass] 31.5 pg Normal 27.0-32.0 [facility] Comment on above: Performed By: #### L 100.0100 ####[facility] [address] [place], [address] MCHC (RBC) [Mass/Vol] 35.5 g/dL Normal 32-36 [facility] Comment on above: Performed By: #### L 100.0100 ####[facility] [address] [place], [address] MCV (RBC) [Entitic vol] 88.6 fL Normal 81-99 [facility] Comment on above: Performed By: #### L 100.0100 ####[facility] [address] [place], [address] Monocytes/100 WBC (Bld) 5.7 % Normal 0-10 [facility] Comment on above: Performed By: #### L 100.0100 ####[facility] [address] [place], [address] Neutrophils/100 WBC (Bld) 84.9 % High 47-70 [facility] Comment on above: Performed By: #### L 100.0100 ####[facility] [address] [place], [address] Nucleated RBC (Bld) [#/Vol] 0.1 10*3/uL Normal 0-5 [facility] Comment on above: Performed By: #### L 100.0100 ####[facility] [address] [place], [address] Platelet mean volume (Bld) [Entitic vol] 11.1 fL Normal 6.2-12.0 [facility] Comment on above: Performed By: #### L 100.0100 ####[facility] [address] [place], [address] Platelets (Bld) [#/Vol] 203 10*3/uL Normal 150-450 [facility] Comment on above: Performed By: #### L 100.0100 ####[facility] [address] [place], [address] RBC (Bld) [#/Vol] 3.78 10*6/uL Low 4.2-5.4 [facility] Comment on above: Performed By: #### L 100.0100 ####[facility] [address] [place], [address] RDW SD 43.1 fl Normal 35.1-43.9 [facility] Comment on above: Performed By: #### L 100.0100 ####[facility] [address] [place], [address] WBC (Bld) [#/Vol] 14.5 10*3/uL High 4.4-11.0 [facility] Comment on above: Performed By: #### L 100.0100 ####[facility] [address] [place], [address] Absolute Lymph 0.96 X10 3/uL Normal 0.83-4.51 [facility] Comment on above: Performed By: #### L 501.1400, L504.2610, L100.0100, L500.4050 ####[facility] [address] [place], [address] Absolute Neut 11.5 X10 3/uL High 2.0-7.7 [facility] Comment on above: Performed By: #### L 501.1400, L504.2610, L100.0100, L500.4050 ####[facility] [address] [place], [address] Basophils/100 WBC (Bld) 0.2 % Normal 0-1 [facility] Comment on above: Performed By: #### L 501.1400, L504.2610, L100.0100, L500.4050 ####[facility] [address] [place], [address] Eosinophils/100 WBC (Bld) 0.0 % Normal 0-5 [facility] Comment on above: Performed By: #### L 501.1400, L504.2610, L100.0100, L500.4050 ####[facility] [address] [place], [address] Erythrocyte distribution width (RBC) [Ratio] 13.2 % Normal 11.6-14.6 [facility] Comment on above: Performed By: #### L 501.1400, L504.2610, L100.0100, L500.4050 ####[facility] [address] [place], [address] Hematocrit (Bld) [Volume fraction] 34.4 % Low 37-47 [facility] Comment on above: Performed By: #### L 501.1400, L504.2610, L100.0100, L500.4050 ####[facility] [address] [place], [address] Hemoglobin (Bld) [Mass/Vol] 11.8 g/dL Low 12.0-15.0 [facility] Comment on above: Performed By: #### L 501.1400, L504.2610, L100.0100, L500.4050 ####[facility] [address] [place], [address] IG% 0.800 Normal 0.0-0.9 [facility] Comment on above: Result Comment: IG% - Immature Granulocytes (promyelocytes, myelocytes andmetamyelocytes) > 1% indicates that a LEFT SHIFT is Present. Performed By: #### L 501.1400, L504.2610, L100.0100, L500.4050 ####[facility] [address] [place], [address] Lymphocytes/100 WBC (Bld) 7.4 % Low 19-41 [facility] Comment on above: Performed By: #### L 501.1400, L504.2610, L100.0100, L500.4050 ####[facility] [address] [place], [address] MCH (RBC) [Entitic mass] 30.6 pg Normal 27.0-32.0 [facility] Comment on above: Performed By: #### L 501.1400, L504.2610, L100.0100, L500.4050 ####[facility] [address] [place], [address] MCHC (RBC) [Mass/Vol] 34.3 g/dL Normal 32-36 [facility] Comment on above: Performed By: #### L 501.1400, L504.2610, L100.0100, L500.4050 ####[facility] [address] [place], [address] MCV (RBC) [Entitic vol] 89.4 fL Normal 81-99 [facility] Comment on above: Performed By: #### L 501.1400, L504.2610, L100.0100, L500.4050 ####[facility] [address] [place], [address] Monocytes/100 WBC (Bld) 2.7 % Normal 0-10 [facility] Comment on above: Performed By: #### L 501.1400, L504.2610, L100.0100, L500.4050 ####[facility] [id number] [place], [address] Neutrophils/100 WBC (Bld) 88.9 % High 47-70 [facility] Comment on above: Performed By: #### L 501.1400, L504.2610, L100.0100, L500.4050 ####[facility] [id number] [place], [address] Nucleated RBC (Bld) [#/Vol] 0 10*3/uL Normal 0-5 [facility] Comment on above: Performed By: #### L 501.1400, L504.2610, L100.0100, L500.4050 ####[facility] [facility] [address] [place], [address] Platelet mean volume (Bld) [Entitic vol] 11.4 fL Normal 6.2-12.0 [facility] Comment on above: Performed By: #### L 501.1400, L504.2610, L100.0100, L500.4050 ####[facility] [address] [place], [address] Platelets (Bld) [#/Vol] 191 10*3/uL Normal 150-450 [facility] Comment on above: Performed By: #### L 501.1400, L504.2610, L100.0100, L500.4050 ####[facility] [address] [place], [address] RBC (Bld) [#/Vol] 3.85 10*6/uL Low 4.2-5.4 [facility] Comment on above: Performed By: #### L 501.1400, L504.2610, L100.0100, L500.4050 ####[facility] [address] [place], [address] RDW SD 42.5 fl Normal 35.1-43.9 [facility] Comment on above: Performed By: #### L 501.1400, L504.2610, L100.0100, L500.4050 ####[facility] [address] [place], [address] WBC (Bld) [#/Vol] 13.0 10*3/uL High 4.4-11.0 [facility] Comment on above: Performed By: #### L 501.1400, L504.2610, L100.0100, L500.4050 ####[facility] [address] [place], [address] Comprehensive Metabolic Prof ilon 03-02-2025 Albumin [Mass/Vol] 3.3 g/dL Low 3.5-5.0 [facility] Comment on above: Performed By: #### L 500.4050 ####[facility] [address] [place], [address] Albumin/Globulin [Mass ratio] 1.2 {ratio} Normal 0.9-2.4 [facility] Comment on above: Performed By: #### L 500.4050 ####[facility] [address] [place], [address] ALK PHOS 119 U/L High 35-104 [facility] Comment on above: Performed By: #### L 500.4050 ####[facility] [address] [place], [address] ALT [Catalytic activity/Vol] 13 U/L Normal <=34 [facility] Comment on above: Performed By: #### L 500.4050 ####[facility] [address] [place], [address] AST [Catalytic activity/Vol] 23 U/L Normal <=31 [facility] Comment on above: Performed By: #### L 500.4050 ####[facility] [address] [place], [address] Bilirubin [Mass/Vol] 0.21 mg/dL Normal 0.00-1.30 [facility] Comment on above: Performed By: #### L 500.4050 ####[facility] [address] [place], [address] BUN/CRE 18.4 RATIO Normal 10-20 [facility] Comment on above: Performed By: #### L 500.4050 ####[facility] [address] [place], [address] Calcium [Mass/Vol] 9.2 mg/dL Normal 7.6-11.0 [facility] Comment on above: Performed By: #### L 500.4050 ####[facility] [address] [place], [address] Chloride [Moles/Vol] 103 mmol/L Normal 98-108 [facility] Comment on above: Performed By: #### L 500.4050 ####[facility] [address] [place], [address] CO2 [Moles/Vol] 16.6 mmol/L Low 21.0-32.0 [facility] Comment on above: Performed By: #### L 500.4050 ####[facility] [address] [place], [address] Creatinine [Mass/Vol] 0.58 mg/dL Low 0.70-1.20 [facility] Comment on above: Performed By: #### L 500.4050 ####[facility] [address] [place], [address] ECRCL 190.68 ml/min Normal 50-250 [facility] Comment on above: Performed By: #### L 500.4050 ####[facility] [address] [place], [address] GAP 14 Normal 5-15 [facility] Comment on above: Performed By: #### L 500.4050 ####[facility] [address] [place], [address] GFR/1.73 sq M.predicted among non-blacks MDRD (S/P/Bld) [Vol rate/Area] 130 mL/min/{1.73_m2} Normal >60 [facility] Comment on above: Result Comment: mL/m in/1.73m2 CKD-EPI Creatinine Equation (2020) Performed By: #### L 500.4050 ####[facility] [address] [place], [address] Globulin (S) [Mass/Vol] 2.8 g/dL Normal 2.2-4.2 [facility] Comment on above: Performed By: #### L 500.4050 ####[facility] [address] [place], [address] Glucose [Mass/Vol] 108 mg/dL High 70-99 [facility] Comment on above: Performed By: #### L 500.4050 ####[facility] [address] [place], [address] Potassium [Moles/Vol] 4.0 mmol/L Normal 3.3-5.1 [facility] Comment on above: Performed By: #### L 500.4050 ####[facility] [address] [place], [address] Sodium [Moles/Vol] 134 mmol/L Normal 133-145 [facility] Comment on above: Performed By: #### L 500.4050 ####[facility] [address] [place], [address] T PROT 6.1 g/dL Normal 5.9-8.4 [facility] Comment on above: Performed By: #### L 500.4050 ####[facility] [address] [place], [address] Urea nitrogen [Mass/Vol] 11 mg/dL Normal 4-19 [facility] Comment on above: Performed By: #### L 500.4050 ####[facility] [address] [place], [address] Albumin [Mass/Vol] 3.3 g/dL Low 3.5-5.0 [facility] Comment on above: Performed By: #### L 501.1400, L504.2610, L100.0100, L500.4050 ####[facility] [address] [place], [address] Albumin/Globulin [Mass ratio] 1.1 {ratio} Normal 0.9-2.4 [facility] Comment on above: Performed By: #### L 501.1400, L504.2610, L100.0100, L500.4050 ####[facility] [address] [place], [address] ALK PHOS 118 U/L High 35-104 [facility] Comment on above: Performed By: #### L 501.1400, L504.2610, L100.0100, L500.4050 ####[facility] [address] [place], [address] ALT [Catalytic activity/Vol] 12 U/L Normal <=34 [facility] Comment on above: Performed By: #### L 501.1400, L504.2610, L100.0100, L500.4050 ####[facility] [address] [place], [address] AST [Catalytic activity/Vol] 25 U/L Normal <=31 [facility] Comment on above: Performed By: #### L 501.1400, L504.2610, L100.0100, L500.4050 ####[facility] [address] [place], [address] Bilirubin [Mass/Vol] 0.22 mg/dL Normal 0.00-1.30 [facility] Comment on above: Performed By: #### L 501.1400, L504.2610, L100.0100, L500.4050 ####[facility] [address] [place], [address] BUN/CRE 14.7 RATIO Normal 10-20 [facility] Comment on above: Performed By: #### L 501.1400, L504.2610, L100.0100, L500.4050 ####[facility] [address] [place], [address] Calcium [Mass/Vol] 9.6 mg/dL Normal 7.6-11.0 [facility] Comment on above: Performed By: #### L 501.1400, L504.2610, L100.0100, L500.4050 ####[facility] [address] [place], [address] Chloride [Moles/Vol] 104 mmol/L Normal 98-108 [facility] Comment on above: Performed By: #### L 501.1400, L504.2610, L100.0100, L500.4050 ####[facility] [address] [place], [address] CO2 [Moles/Vol] 16.7 mmol/L Low 21.0-32.0 [facility] Comment on above: Performed By: #### L 501.1400, L504.2610, L100.0100, L500.4050 ####[facility] [address] [place], [address] Creatinine [Mass/Vol] 0.51 mg/dL Low 0.70-1.20 [facility] Comment on above: Performed By: #### L 501.1400, L504.2610, L100.0100, L500.4050 ####[facility] [address] [place], [address] ECRCL 216.86 ml/min Normal 50-250 [facility] Comment on above: Performed By: #### L 501.1400, L504.2610, L100.0100, L500.4050 ####[facility] [address] [place], [address] GAP 12 Normal 5-15 [facility] Comment on above: Performed By: #### L 501.1400, L504.2610, L100.0100, L500.4050 ####[facility] [address] [place], [address] GFR/1.73 sq M.predicted among non-blacks MDRD (S/P/Bld) [Vol rate/Area] 135 mL/min/{1.73_m2} Normal >60 [facility] Comment on above: Result Comment: mL/m in/1.73m2 CKD-EPI Creatinine Equation (2020) Performed By: #### L 501.1400, L504.2610, L100.0100, L500.4050 ####[facility] [address] [place], [address] Globulin (S) [Mass/Vol] 3.0 g/dL Normal 2.2-4.2 [facility] Comment on above: Performed By: #### L 501.1400, L504.2610, L100.0100, L500.4050 ####[facility] [address] [place], [address] Glucose [Mass/Vol] 137 mg/dL High 70-99 [facility] Comment on above: Performed By: #### L 501.1400, L504.2610, L100.0100, L500.4050 ####[facility] [address] [place], [address] Potassium [Moles/Vol] 4.2 mmol/L Normal 3.3-5.1 [facility] Comment on above: Performed By: #### L 501.1400, L504.2610, L100.0100, L500.4050 ####[facility] [address] [place], [address] Sodium [Moles/Vol] 133 mmol/L Normal 133-145 [facility] Comment on above: Performed By: #### L 501.1400, L504.2610, L100.0100, L500.4050 ####[facility] [address] [place], [address] T PROT 6.3 g/dL Normal 5.9-8.4 [facility] Comment on above: Performed By: #### L 501.1400, L504.2610, L100.0100, L500.4050 ####[facility] [address] [place], [address] Urea nitrogen [Mass/Vol] 7 mg/dL Normal 4-19 [facility] Comment on above: Performed By: #### L 501.1400, L504.2610, L100.0100, L500.4050 ####[facility] [address] [place], [address] ALB Normal 3.5-5.0 [facility] Comment on above: Result Comment: PER GUILLERMO NURSE OK TO CANCEL ALREADY HAD DONE AND HAS A NEWORDER THIS AM. Performed By: #### L 500.4050 ####[facility] [address] [place], [address] ALK PHOS Normal 35-104 [facility] Comment on above: Result Comment: PER ALYDIA NURSE OK TO CANCEL ALREADY HAD DONE AND HAS A NEWORDER THIS AM. Performed By: #### L 500.4050 ####[facility] [address] [place], [address] ALT Normal <=34 [facility] Comment on above: Result Comment: PER GUILLERMO NURSE OK TO CANCEL ALREADY HAD DONE AND HAS A NEWORDER THIS AM. Performed By: #### L 500.4050 ####[facility] [address] [place], [address] AST Normal <=31 [facility] Comment on above: Result Comment: PER ALPAULYIA NURSE OK TO CANCEL ALREADY HAD DONE AND HAS A NEWORDER THIS AM. Performed By: #### L 500.4050 ####[facility] [address] [place], [address] BUN Normal 4-19 [facility] Comment on above: Result Comment: PER ALPAULYIA NURSE OK TO CANCEL ALREADY HAD DONE AND HAS A NEWORDER THIS AM. Performed By: #### L 500.4050 ####[facility] [address] [place], [address] BUN/CRE Normal 10-20 [facility] Comment on above: Result Comment: PER THEOIA NURSE OK TO CANCEL ALREADY HAD DONE AND HAS A NEWORDER THIS AM. Performed By: #### L 500.4050 ####[facility] [address] [place], [address] Calcium Normal 7.6-11.0 [facility] Comment on above: Result Comment: PER ALPAULYIA NURSE OK TO CANCEL ALREADY HAD DONE AND HAS A NEWORDER THIS AM. Performed By: #### L 500.4050 ####[facility] [address] [place], [address] CL Normal 98-108 [facility] Comment on above: Result Comment: PER ALYDIA NURSE OK TO CANCEL ALREADY HAD DONE AND HAS A NEWORDER THIS AM. Performed By: #### L 500.4050 ####[facility] [address] [place], [address] CO2 Normal 21.0-32.0 [facility] Comment on above: Result Comment: PER ALPAULYIA NURSE OK TO CANCEL ALREADY HAD DONE AND HAS A NEWORDER THIS AM. Performed By: #### L 500.4050 ####[facility] [address] [place], [address] CREAT,SERUM Normal 0.70-1.20 [facility] Comment on above: Result Comment: PER ALYDIA NURSE OK TO CANCEL ALREADY HAD DONE AND HAS A NEWORDER THIS AM. Performed By: #### L 500.4050 ####[facility] [address] [place], [address] eGFR Normal >60 [facility] Comment on above: Result Comment: PER ALYDIA NURSE OK TO CANCEL ALREADY HAD DONE AND HAS A NEWORDER THIS AM. Performed By: #### L 500.4050 ####[facility] [address] [place], [address] GAP Normal 5-15 [facility] Comment on above: Result Comment: PER ALPAULYIA NURSE OK TO CANCEL ALREADY HAD DONE AND HAS A NEWORDER THIS AM. Performed By: #### L 500.4050 ####[facility] [address] [place], [address] GLU Normal 70-99 [facility] Comment on above: Result Comment: PER ALYDIA NURSE OK TO CANCEL ALREADY HAD DONE AND HAS A NEWORDER THIS AM. Performed By: #### L 500.4050 ####[facility] [address] [place], [address] Potassium Normal 3.3-5.1 [facility] Comment on above: Result Comment: PER ALYDIA NURSE OK TO CANCEL ALREADY HAD DONE AND HAS A NEWORDER THIS AM. Performed By: #### L 500.4050 ####[facility] [address] [place], [address] T BILI Normal 0.00-1.30 [facility] Comment on above: Result Comment: PER BESSYTOM NURSE OK TO CANCEL ALREADY HAD DONE AND HAS A NEWORDER THIS AM. Performed By: #### L 500.4050 ####[facility] [address] [place], [address] T PROT Normal 5.9-8.4 [facility] Comment on above: Result Comment: PER GUILLERMO NURSE OK TO CANCEL ALREADY HAD DONE AND HAS A NEWORDER THIS AM. Performed By: #### L 500.4050 ####[facility] [address] [place], [address] Comprehensive Metabolic Profil Normal 133-145 [facility] Comment on above: Result Comment: PER GUILLERMO NURSE OK TO CANCEL ALREADY HAD DONE AND HAS A NEWORDER THIS AM. Performed By: #### L 500.4050 ####[facility] [address] [place], [address] LDHon 03-02-2025 LDH 195 U/L Normal 84-246 [facility] Comment on above: Performed By: #### L 501.1400, L504.2610, L100.0100, L500.4050 ####[facility] [address] [place], [address] OB Triage Physician Noteon 1 OB Triage Physician Note Normal [facility] Protein, Urine 24HRon 2024 24hr UR PROTEIN 224.1 mg/24HR High <150 MG/24HR [facility] Comment on above: Performed By: #### L 500.9000, L502.000, L500.4507 ####[facility] [address] [place], [address] Protein Ql (U) 10.8 mg/dL Normal <11.9 [facility] Comment on above: Performed By: #### L 500.9000, L502.000, L500.4507 ####[facility] [address] [place], [address] Uric Acidon 03-02-2025 URIC 6.3 mg/dL High 2.6-6.0 [facility] Comment on above: Result Comment: The drugs N-Acetylcysteine and Metamizole may falselydepress this assay. Performed By: #### L 501.1400, L504.2610, L100.0100, L500.4050 ####[facility] [address] [place], [address] (ROM) Rupture Of Membraneson 03-01-2025 ROM Negative Normal Negative [facility] Comment on above: Result Comment: Amni otic fluid not present indicates No Rupture of FetalMembranes at time of specimen collection. Performed By: #### L 205.1000 ####[facility] [address] [place], [address] AST(SGOT)on 03-01-2025 AST [Catalytic activity/Vol] 29 U/L Normal <=31 [facility] Comment on above: Performed By: #### L 501.1400, L501.4405, L501.4100, L501.1105, L100.0500 ####[facility] [address] [place], [address] Alanine Aminotransferas (SGP T)on 03-01-2025 ALT [Catalytic activity/Vol] 14 U/L Normal <=34 [facility] Comment on above: Performed By: #### L 501.1400, L501.4405, L501.4100, L501.1105, L100.0500 ####[facility] [address] [place], [address] Bedside Glucoseon 03-01-2025 FINGERSTICK GLU 160 mg/dL High 74-106 [facility] Comment on above: Result Comment: VERITO HUMPHRIES OF PATIENT CARE PER NURSING PROTOCOL Performed By: #### L 501.080 ####[facility] [address] [place], [address] FINGERSTICK GLU 94 mg/dL Normal 74-106 [facility] Comment on above: Result Comment: VERITO HUMPHRIES OF PATIENT CARE PER NURSING PROTOCOL Performed By: #### L 501.080 ####[facility] [address] [place], [address] Brain without Contraston Brain without Contrast Normal [facility] CBC-Complete Blood Cnt No Di ffon 03-01-2025 Erythrocyte distribution width (RBC) [Ratio] 13.4 % Normal 11.6-14.6 [facility] Comment on above: Performed By: #### L 501.1400, L501.4405, L501.4100, L501.1105, L100.0500 ####[facility] [address] [place], [address] Hematocrit (Bld) [Volume fraction] 34.6 % Low 37-47 [facility] Comment on above: Performed By: #### L 501.1400, L501.4405, L501.4100, L501.1105, L100.0500 ####[facility] [address] [place], [address] Hemoglobin (Bld) [Mass/Vol] 12.1 g/dL Normal 12.0-15.0 [facility] Comment on above: Performed By: #### L 501.1400, L501.4405, L501.4100, L501.1105, L100.0500 ####[facility] [address] [place], [address] MCH (RBC) [Entitic mass] 31.3 pg Normal 27.0-32.0 [facility] Comment on above: Performed By: #### L 501.1400, L501.4405, L501.4100, L501.1105, L100.0500 ####[facility] [address] [place], [address] MCHC (RBC) [Mass/Vol] 35.0 g/dL Normal 32-36 [facility] Comment on above: Performed By: #### L 501.1400, L501.4405, L501.4100, L501.1105, L100.0500 ####[facility] [address] [place], [address] MCV (RBC) [Entitic vol] 89.4 fL Normal 81-99 [facility] Comment on above: Performed By: #### L 501.1400, L501.4405, L501.4100, L501.1105, L100.0500 ####[facility] [address] [place], [address] Platelet mean volume (Bld) [Entitic vol] 11.1 fL Normal 6.2-12.0 [facility] Comment on above: Performed By: #### L 501.1400, L501.4405, L501.4100, L501.1105, L100.0500 ####[facility] [address] [place], [address] Platelets (Bld) [#/Vol] 197 10*3/uL Normal 150-450 [facility] Comment on above: Performed By: #### L 501.1400, L501.4405, L501.4100, L501.1105, L100.0500 ####[facility] [address] [place], [address] RBC (Bld) [#/Vol] 3.87 10*6/uL Low 4.2-5.4 [facility] Comment on above: Performed By: #### L 501.1400, L501.4405, L501.4100, L501.1105, L100.0500 ####[facility] [address] [place], [address] RDW SD 43.7 fl Normal 35.1-43.9 [facility] Comment on above: Performed By: #### L 501.1400, L501.4405, L501.4100, L501.1105, L100.0500 ####[facility] [address] [place], [address] WBC (Bld) [#/Vol] 10.2 10*3/uL Normal 4.4-11.0 [facility] Comment on above: Performed By: #### L 501.1400, L501.4405, L501.4100, L501.1105, L100.0500 ####[facility] [address] [place], [address] H AND P Exam - OB/GYNon 10-0 H&P Exam - AIRCRAFT RIVETER Normal [facility] LDHon 03-01-2025 LDH 164 U/L Normal 84-246 [facility] Comment on above: Performed By: #### L 504.2610 ####[facility] [address] [place], [address] M8200.0100on 03-01-2025 M8200.0100 Negative Normal [facility] Comment on above: Performed By: #### M 8200.0100 ####[facility] [address] [place], [address] OB Limited (No Biometrics)on 03-01-2025 OB Limited (No Biometrics) Normal [facility] Mat Roller Office Visit Reporton 03-01-2025 Mat Roller Office Visit Report Normal [facility] Protein+Creatinine Ratio,Uri neon 03-01-2025 PROT:CRE RATIO Normal 0-200 [facility] Comment on above: Result Comment: DUPL ICATE ORDER. SEE UC13 FOR RESULTS Performed By: #### L 501.0900 ####[facility] [address] [place], [address] PROTEIN,UR.RAN. Normal 0.0-12.0 [facility] Comment on above: Result Comment: DUPL ICATE ORDER. SEE UC13 FOR RESULTS Performed By: #### L 501.0900 ####[facility] [address] [place], [address] UR CREAT Normal 28.00-217.00 [facility] Comment on above: Result Comment: DUPL ICATE ORDER. SEE UC13 FOR RESULTS Performed By: #### L 501.0900 ####[facility] [address] [place], [address] PROT:CRE RATIO 324 mg/g CRE High 0-200 [facility] Comment on above: Performed By: #### L 501.0900 ####[facility] [address] [place], [address] Protein (U) [Mass/Vol] 8.4 mg/dL Normal 0.0-12.0 [facility] Comment on above: Performed By: #### L 501.0900 ####[facility] [address] [place], [address] UR CREAT 25.90 mg/dL Low 28.00-217.00 [facility] Comment on above: Performed By: #### L 501.0900 ####[facility] [address] [place], [address] Serum Creatinine AND GFRon 1 0 Creatinine [Mass/Vol] 0.55 mg/dL Low 0.70-1.20 [facility] Comment on above: Performed By: #### L 501.1400, L501.4405, L501.4100, L501.1105, L100.0500 ####[facility] [address] [place], [address] ECRCL 201.09 ml/min Normal 50-250 [facility] Comment on above: Performed By: #### L 501.1400, L501.4405, L501.4100, L501.1105, L100.0500 ####[facility] [id number] [place], [address] GFR/1.73 sq M.predicted among non-blacks MDRD (S/P/Bld) [Vol rate/Area] 132 mL/min/{1.73_m2} Normal >60 [facility] Comment on above: Result Comment: mL/m in/1.73m2 CKD-EPI Creatinine Equation (2020) Performed By: #### L 501.1400, L501.4405, L501.4100, L501.1105, L100.0500 ####[facility] [id number] [place], [address] Uric Acidon 03-01-2025 URIC 6.2 mg/dL High 2.6-6.0 [facility] Comment on above: Result Comment: The drugs N-Acetylcysteine and Metamizole may falselydepress this assay. Performed By: #### L 501.1400, L501.4405, L501.4100, L501.1105, L100.0500 ####[facility] [address] [place], [address] Urine Cultureon 02-28-2025 URC #1 Below infection level. Presumptive C albicans [place] Count <1000 Mixed Gram Positive Organisms Mixed Gram Positive Organisms MIXC Mixed contaminants. Submit a new specimen if indicated. Normal [facility] Comment on above: Performed By: #### M 100.2200 ####[facility] [address] [place], [address] OB Triage Physician Noteon 0 02-26-2025 OB Triage Physician Note Normal [facility] (ROM) Rupture Of Membraneson 02-25-2025 ROM Negative Normal Negative [facility] Comment on above: Result Comment: Amni otic fluid not present indicates No Rupture of FetalMembranes at time of specimen collection. Performed By: #### L 205.1000 ####[facility] [address] [place], [address] AST(SGOT)on 02-25-2025 AST [Catalytic activity/Vol] 27 U/L Normal <=31 [facility] Comment on above: Performed By: #### L 501.1105, L100.0500, L501.4405, L501.1400, L501.4100, L501.0900 ####[facility] [address] [place], [address] Alanine Aminotransferas (SGP T)on 02-25-2025 ALT [Catalytic activity/Vol] 15 U/L Normal <=34 [facility] Comment on above: Performed By: #### L 501.1105, L100.0500, L501.4405, L501.1400, L501.4100, L501.0900 ####[facility] [address] [place], [address] CBC-Complete Blood Cnt No Di ffon 02-25-2025 Erythrocyte distribution width (RBC) [Ratio] 13.2 % Normal 11.6-14.6 [facility] Comment on above: Performed By: #### L 501.1105, L100.0500, L501.4405, L501.1400, L501.4100, L501.0900 ####[facility] [address] [place], [address] Hematocrit (Bld) [Volume fraction] 35.7 % Low 37-47 [facility] Comment on above: Performed By: #### L 501.1105, L100.0500, L501.4405, L501.1400, L501.4100, L501.0900 ####[facility] [address] [place], [address] Hemoglobin (Bld) [Mass/Vol] 12.6 g/dL Normal 12.0-15.0 [facility] Comment on above: Performed By: #### L 501.1105, L100.0500, L501.4405, L501.1400, L501.4100, L501.0900 ####[facility] [address] [place], [address] MCH (RBC) [Entitic mass] 31.6 pg Normal 27.0-32.0 [facility] Comment on above: Performed By: #### L 501.1105, L100.0500, L501.4405, L501.1400, L501.4100, L501.0900 ####[facility] [address] [place], [address] MCHC (RBC) [Mass/Vol] 35.3 g/dL Normal 32-36 [facility] Comment on above: Performed By: #### L 501.1105, L100.0500, L501.4405, L501.1400, L501.4100, L501.0900 ####[facility] [address] [place], [address] MCV (RBC) [Entitic vol] 89.5 fL Normal 81-99 [facility] Comment on above: Performed By: #### L 501.1105, L100.0500, L501.4405, L501.1400, L501.4100, L501.0900 ####[facility] [address] [place], [address] Platelet mean volume (Bld) [Entitic vol] 11.1 fL Normal 6.2-12.0 [facility] Comment on above: Performed By: #### L 501.1105, L100.0500, L501.4405, L501.1400, L501.4100, L501.0900 ####[facility] [address] [place], [address] Platelets (Bld) [#/Vol] 208 10*3/uL Normal 150-450 [facility] Comment on above: Performed By: #### L 501.1105, L100.0500, L501.4405, L501.1400, L501.4100, L501.0900 ####[facility] [address] [place], [address] RBC (Bld) [#/Vol] 3.99 10*6/uL Low 4.2-5.4 [facility] Comment on above: Performed By: #### L 501.1105, L100.0500, L501.4405, L501.1400, L501.4100, L501.0900 ####[facility] [address] [place], [address] RDW SD 43.3 fl Normal 35.1-43.9 [facility] Comment on above: Performed By: #### L 501.1105, L100.0500, L501.4405, L501.1400, L501.4100, L501.0900 ####[facility] [address] [place], [address] WBC (Bld) [#/Vol] 11.5 10*3/uL High 4.4-11.0 [facility] Comment on above: Performed By: #### L 501.1105, L100.0500, L501.4405, L501.1400, L501.4100, L501.0900 ####[facility] [address] [place], [address] Protein+Creatinine Ratio,Uri neon 02-25-2025 PROT:CRE RATIO 214 mg/g CRE High 0-200 [facility] Comment on above: Performed By: #### L 501.1105, L100.0500, L501.4405, L501.1400, L501.4100, L501.0900 ####[facility] [address] [place], [address] Protein (U) [Mass/Vol] 8.1 mg/dL Normal 0.0-12.0 [facility] Comment on above: Performed By: #### L 501.1105, L100.0500, L501.4405, L501.1400, L501.4100, L501.0900 ####[facility] [address] [place], [address] UR CREAT 37.80 mg/dL Normal 28.00-217.00 [facility] Comment on above: Performed By: #### L 501.1105, L100.0500, L501.4405, L501.1400, L501.4100, L501.0900 ####[facility] [address] [place], [address] Serum Creatinine AND GFRon 0 - Creatinine [Mass/Vol] 0.52 mg/dL Low 0.70-1.20 [facility] Comment on above: Performed By: #### L 501.1105, L100.0500, L501.4405, L501.1400, L501.4100, L501.0900 ####[facility] [address] [place], [address] ECRCL 212.39 ml/min Normal 50-250 [facility] Comment on above: Performed By: #### L 501.1105, L100.0500, L501.4405, L501.1400, L501.4100, L501.0900 ####[facility] [address] [place], [address] GFR/1.73 sq M.predicted among non-blacks MDRD (S/P/Bld) [Vol rate/Area] 134 mL/min/{1.73_m2} Normal >60 [facility] Comment on above: Result Comment: mL/m in/1.73m2 CKD-EPI Creatinine Equation (2020) Performed By: #### L 501.1105, L100.0500, L501.4405, L501.1400, L501.4100, L501.0900 ####[facility] [address] [place], [address] Uric Acidon 02-25-2025 URIC 6.1 mg/dL High 2.6-6.0 [facility] Comment on above: Result Comment: The drugs N-Acetylcysteine and Metamizole may falselydepress this assay. Performed By: #### L 501.1105, L100.0500, L501.4405, L501.1400, L501.4100, L501.0900 ####[facility] [address] [place], [address] Urinalysis, Completeon 02-25 RBC 5-10 SEEN Normal 0-5 [facility] Comment on above: Order Comment: CLEAN CATCH Performed By: #### L 400.0001 ####[facility] [address] [place], [address] WBC 50-100 SEEN Normal 0-5 [facility] Comment on above: Order Comment: CLEAN CATCH Performed By: #### L 400.0001 ####[facility] [address] [place], [address] BACTERIA 2+ /hpf Normal None Seen [facility] Comment on above: Order Comment: CLEAN CATCH Performed By: #### L 400.0001 ####[facility] [address] [place], [address] EPI,SQUAMOUS 10-25 SEEN Normal 5-10 [facility] Comment on above: Order Comment: CLEAN CATCH Performed By: #### L 400.0001 ####[facility] [address] [place], [address] Mucus Ql (Urine sed) 0 SEEN Normal [facility] Comment on above: Order Comment: CLEAN CATCH Performed By: #### L 400.0001 ####[facility] [address] [place], [address] OB Triage Progress Noteon OB Triage Progress Note Normal [facility] CBC W/Diff, Automatedon 09-2 Absolute Lymph 1.14 X10 3/uL Normal 0.83-4.51 [facility] Comment on above: Performed By: #### L 100.0100, L500.4050, L504.2610, L501.1400 ####[facility] [address] [place], [address] Absolute Neut 8.0 X10 3/uL High 2.0-7.7 [facility] Comment on above: Performed By: #### L 100.0100, L500.4050, L504.2610, L501.1400 ####[facility] [address] [place], [address] Basophils/100 WBC (Bld) 0.4 % Normal 0-1 [facility] Comment on above: Performed By: #### L 100.0100, L500.4050, L504.2610, L501.1400 ####[facility] [address] [place], [address] Eosinophils/100 WBC (Bld) 1.3 % Normal 0-5 [facility] Comment on above: Performed By: #### L 100.0100, L500.4050, L504.2610, L501.1400 ####[facility] [address] [place], [address] Erythrocyte distribution width (RBC) [Ratio] 13.5 % Normal 11.6-14.6 [facility] Comment on above: Performed By: #### L 100.0100, L500.4050, L504.2610, L501.1400 ####[facility] [address] [place], [address] Hematocrit (Bld) [Volume fraction] 36.7 % Low 37-47 [facility] Comment on above: Performed By: #### L 100.0100, L500.4050, L504.2610, L501.1400 ####[facility] [address] [place], [address] Hemoglobin (Bld) [Mass/Vol] 12.7 g/dL Normal 12.0-15.0 [facility] Comment on above: Performed By: #### L 100.0100, L500.4050, L504.2610, L501.1400 ####[facility] [address] [place], [address] IG% 0.800 Normal 0.0-0.9 [facility] Comment on above: Result Comment: IG% - Immature Granulocytes (promyelocytes, myelocytes andmetamyelocytes) > 1% indicates that a LEFT SHIFT is Present. Performed By: #### L 100.0100, L500.4050, L504.2610, L501.1400 ####[facility] [address] [place], [address] Lymphocytes/100 WBC (Bld) 11.3 % Low 19-41 [facility] Comment on above: Performed By: #### L 100.0100, L500.4050, L504.2610, L501.1400 ####[facility] [address] [place], [address] MCH (RBC) [Entitic mass] 31.5 pg Normal 27.0-32.0 [facility] Comment on above: Performed By: #### L 100.0100, L500.4050, L504.2610, L501.1400 ####[facility] [address] [place], [address] MCHC (RBC) [Mass/Vol] 34.6 g/dL Normal 32-36 [facility] Comment on above: Performed By: #### L 100.0100, L500.4050, L504.2610, L501.1400 ####[facility] [address] [place], [address] MCV (RBC) [Entitic vol] 91.1 fL Normal 81-99 [facility] Comment on above: Performed By: #### L 100.0100, L500.4050, L504.2610, L501.1400 ####[facility] [address] [place], [address] Monocytes/100 WBC (Bld) 7.1 % Normal 0-10 [facility] Comment on above: Performed By: #### L 100.0100, L500.4050, L504.2610, L501.1400 ####[facility] [address] [place], [address] Neutrophils/100 WBC (Bld) 79.1 % High 47-70 [facility] Comment on above: Performed By: #### L 100.0100, L500.4050, L504.2610, L501.1400 ####[facility] [address] [place], [address] Nucleated RBC (Bld) [#/Vol] 0 10*3/uL Normal 0-5 [facility] Comment on above: Performed By: #### L 100.0100, L500.4050, L504.2610, L501.1400 ####[facility] [address] [place], [address] Platelet mean volume (Bld) [Entitic vol] 11.2 fL Normal 6.2-12.0 [facility] Comment on above: Performed By: #### L 100.0100, L500.4050, L504.2610, L501.1400 ####[facility] [address] [place], [address] Platelets (Bld) [#/Vol] 236 10*3/uL Normal 150-450 [facility] Comment on above: Performed By: #### L 100.0100, L500.4050, L504.2610, L501.1400 ####[facility] [address] [place], [address] RBC (Bld) [#/Vol] 4.03 10*6/uL Low 4.2-5.4 [facility] Comment on above: Performed By: #### L 100.0100, L500.4050, L504.2610, L501.1400 ####[facility] [address] [place], [address] RDW SD 44.5 fl High 35.1-43.9 [facility] Comment on above: Performed By: #### L 100.0100, L500.4050, L504.2610, L501.1400 ####[facility] [address] [place], [address] WBC (Bld) [#/Vol] 10.1 10*3/uL Normal 4.4-11.0 [facility] Comment on above: Performed By: #### L 100.0100, L500.4050, L504.2610, L501.1400 ####[facility] [address] [place], [address] Comprehensive Metabolic Prof [facility] 02-22-2025 Albumin [Mass/Vol] 3.4 g/dL Low 3.5-5.0 [facility] Comment on above: Performed By: #### L 100.0100, L500.4050, L504.2610, L501.1400 ####[facility] [address] [place], [address] Albumin/Globulin [Mass ratio] 1.1 {ratio} Normal 0.9-2.4 [facility] Comment on above: Performed By: #### L 100.0100, L500.4050, L504.2610, L501.1400 ####[facility] [address] [place], [address] ALK PHOS 113 U/L High 35-104 [facility] Comment on above: Performed By: #### L 100.0100, L500.4050, L504.2610, L501.1400 ####[facility] [address] [place], [address] ALT [Catalytic activity/Vol] 18 U/L Normal <=34 [facility] Comment on above: Performed By: #### L 100.0100, L500.4050, L504.2610, L501.1400 ####[facility] [address] [place], [address] AST [Catalytic activity/Vol] 34 U/L High <=31 [facility] Comment on above: Performed By: #### L 100.0100, L500.4050, L504.2610, L501.1400 ####[facility] [address] [place], [address] Bilirubin [Mass/Vol] 0.23 mg/dL Normal 0.00-1.30 [facility] Comment on above: Performed By: #### L 100.0100, L500.4050, L504.2610, L501.1400 ####[facility] [address] [place], [address] BUN/CRE 9.7 RATIO Low 10-20 [facility] Comment on above: Performed By: #### L 100.0100, L500.4050, L504.2610, L501.1400 ####[facility] [address] [place], [address] Calcium [Mass/Vol] 9.8 mg/dL Normal 7.6-11.0 [facility] Comment on above: Performed By: #### L 100.0100, L500.4050, L504.2610, L501.1400 ####[facility] [address] [place], [address] Chloride [Moles/Vol] 103 mmol/L Normal 98-108 [facility] Comment on above: Performed By: #### L 100.0100, L500.4050, L504.2610, L501.1400 ####[facility] [address] [place], [address] CO2 [Moles/Vol] 18.6 mmol/L Low 21.0-32.0 [facility] Comment on above: Performed By: #### L 100.0100, L500.4050, L504.2610, L501.1400 ####[facility] [address] [place], [address] Creatinine [Mass/Vol] 0.77 mg/dL Normal 0.70-1.20 [facility] Comment on above: Performed By: #### L 100.0100, L500.4050, L504.2610, L501.1400 ####[facility] [address] [place], [address] GAP 12 Normal 5-15 [facility] Comment on above: Performed By: #### L 100.0100, L500.4050, L504.2610, L501.1400 ####[facility] [address] [place], [address] GFR/1.73 sq M.predicted among non-blacks MDRD (S/P/Bld) [Vol rate/Area] 111 mL/min/{1.73_m2} Normal >60 [facility] Comment on above: Result Comment: mL/m in/1.73m2 CKD-EPI Creatinine Equation (2020) Performed By: #### L 100.0100, L500.4050, L504.2610, L501.1400 ####[facility] [address] [place], [address] Globulin (S) [Mass/Vol] 3.2 g/dL Normal 2.2-4.2 [facility] Comment on above: Performed By: #### L 100.0100, L500.4050, L504.2610, L501.1400 ####[facility] [address] [place], [address] Glucose [Mass/Vol] 89 mg/dL Normal 70-99 [facility] Comment on above: Performed By: #### L 100.0100, L500.4050, L504.2610, L501.1400 ####[facility] [address] [place], [address] Potassium [Moles/Vol] 4.1 mmol/L Normal 3.3-5.1 [facility] Comment on above: Performed By: #### L 100.0100, L500.4050, L504.2610, L501.1400 ####[facility] [address] [place], [address] Sodium [Moles/Vol] 134 mmol/L Normal 133-145 [facility] Comment on above: Performed By: #### L 100.0100, L500.4050, L504.2610, L501.1400 ####[facility] [address] [place], [address] T PROT 6.6 g/dL Normal 5.9-8.4 [facility] Comment on above: Performed By: #### L 100.0100, L500.4050, L504.2610, L501.1400 ####[facility] [address] [place], [address] Urea nitrogen [Mass/Vol] 7 mg/dL Normal 4-19 [facility] Comment on above: Performed By: #### L 100.0100, L500.4050, L504.2610, L501.1400 ####[facility] [address] [place], [address] LDHon 02-22-2025 LDH 179 U/L Normal 84-246 [facility] Comment on above: Order Comment: 1 Performed By: #### L 100.0100, L500.4050, L504.2610, L501.1400 ####[facility] [address] [place], [address] Mat Roller Office Visit Reporton 02-22-2025 Mat [facility] Office Visit Report Normal [facility] Protein+Creatinine Ratio,Uri neon 02-22-2025 PROT:CRE RATIO UNABLE TO CALCULATE Normal 0-200 [facility] Comment on above: Performed By: #### L 501.0900 ####[facility] [address] [place], [address] PROTEIN,UR.RAN. < 6.0 Normal 0.0-12.0 [facility] Comment on above: Performed By: #### L 501.0900 ####[facility] [address] [place], [address] UR CREAT 43.30 mg/dL Normal 28.00-217.00 [facility] Comment on above: Performed By: #### L 501.0900 ####[facility] [address] [place], [address] Uric Acidon 02-22-2025 URIC 6.1 mg/dL High 2.6-6.0 [facility] Comment on above: Result Comment: The drugs N-Acetylcysteine and Metamizole may falselydepress this assay. Performed By: #### L 100.0100, L500.4050, L504.2610, L501.1400 ####[facility] [address] [place], [address] (ROM) Rupture Of Membraneson 02-15-2025 ROM Negative Normal Negative [facility] Comment on above: Result Comment: Amni otic fluid not present indicates No Rupture of FetalMembranes at time of specimen collection. Performed By: #### L 205.1000 ####[facility] [address] [place], [address] Mat [facility] Office Visit Reporton 02-09-2025 Mat Rol[facility] Office Visit Report Normal [facility] Gestational GTT 3HR 100gon 0 02-01-2025 GEST GTT 100gm High [facility] Comment on above: Order Comment: Y [...] 02/01/25 1056 Performed By: #### L 500.4710 ####[facility] [address] [place], [address] CBC W/Diff, Automatedon 12-31 Absolute Lymph 0.91 X10 3/uL Normal 0.83-4.51 [facility] Comment on above: Performed By: #### B TS, L100.0100, L509.8002, L501.0250, L3890.6006 ####[facility] [address] [place], [address] Absolute Neut 8.5 X10 3/uL High 2.0-7.7 [facility] Comment on above: Performed By: #### B TS, L100.0100, L509.8002, L501.0250, L3890.6006 ####[facility] [address] [place], [address] Basophils/100 WBC (Bld) 0.2 % Normal 0-1 [facility] Comment on above: Performed By: #### B TS, L100.0100, L509.8002, L501.0250, L3890.6006 ####[facility] [address] [place], [address] Eosinophils/100 WBC (Bld) 0.8 % Normal 0-5 [facility] Comment on above: Performed By: #### B TS, L100.0100, L509.8002, L501.0250, L3890.6006 ####[facility] [address] [place], [address] Erythrocyte distribution width (RBC) [Ratio] 12.7 % Normal 11.6-14.6 [facility] Comment on above: Performed By: #### B TS, L100.0100, L509.8002, L501.0250, L3890.6006 ####[facility] [address] [place], [address] Hematocrit (Bld) [Volume fraction] 33.7 % Low 37-47 [facility] Comment on above: Performed By: #### B TS, L100.0100, L509.8002, L501.0250, L3890.6006 ####[facility] [address] [place], [address] Hemoglobin (Bld) [Mass/Vol] 11.7 g/dL Low 12.0-15.0 [facility] Comment on above: Performed By: #### B TS, L100.0100, L509.8002, L501.0250, L3890.6006 ####[facility] [address] [place], [address] IG% 0.900 Normal 0.0-0.9 [facility] Comment on above: Result Comment: IG% - Immature Granulocytes (promyelocytes, myelocytes andmetamyelocytes) > 1% indicates that a LEFT SHIFT is Present. Performed By: #### B TS, L100.0100, L509.8002, L501.0250, L3890.6006 ####[facility] [address] [place], [address] Lymphocytes/100 WBC (Bld) 9.0 % Low 19-41 [facility] Comment on above: Performed By: #### B TS, L100.0100, L509.8002, L501.0250, L3890.6006 ####[facility] [address] [place], [address] MCH (RBC) [Entitic mass] 31.2 pg Normal 27.0-32.0 [facility] Comment on above: Performed By: #### B TS, L100.0100, L509.8002, L501.0250, L3890.6006 ####[facility] [address] [place], [address] MCHC (RBC) [Mass/Vol] 34.7 g/dL Normal 32-36 [facility] Comment on above: Performed By: #### B TS, L100.0100, L509.8002, L501.0250, L3890.6006 ####[facility] [address] [place], [address] MCV (RBC) [Entitic vol] 89.9 fL Normal 81-99 [facility] Comment on above: Performed By: #### B TS, L100.0100, L509.8002, L501.0250, L3890.6006 ####[facility] [address] [place], [address] Monocytes/100 WBC (Bld) 4.7 % Normal 0-10 [facility] Comment on above: Performed By: #### B TS, L100.0100, L509.8002, L501.0250, L3890.6006 ####[facility] [address] [place], [address] Neutrophils/100 WBC (Bld) 84.4 % High 47-70 [facility] Comment on above: Performed By: #### B TS, L100.0100, L509.8002, L501.0250, L3890.6006 ####[facility] [address] [place], [address] Nucleated RBC (Bld) [#/Vol] 0 10*3/uL Normal 0-5 [facility] Comment on above: Performed By: #### B TS, L100.0100, L509.8002, L501.0250, L3890.6006 ####[facility] [address] [place], [address] Platelet mean volume (Bld) [Entitic vol] 10.7 fL Normal 6.2-12.0 [facility] Comment on above: Performed By: #### B TS, L100.0100, L509.8002, L501.0250, L3890.6006 ####[facility] [address] [place], [address] Platelets (Bld) [#/Vol] 240 10*3/uL Normal 150-450 [facility] Comment on above: Performed By: #### B TS, L100.0100, L509.8002, L501.0250, L3890.6006 ####[facility] [address] [place], [address] RBC (Bld) [#/Vol] 3.75 10*6/uL Low 4.2-5.4 [facility] Comment on above: Performed By: #### B TS, L100.0100, L509.8002, L501.0250, L3890.6006 ####[facility] [address] [place], [address] RDW SD 41.4 fl Normal 35.1-43.9 [facility] Comment on above: Performed By: #### B TS, L100.0100, L509.8002, L501.0250, L3890.6006 ####[facility] [address] [place], [address] WBC (Bld) [#/Vol] 10.1 10*3/uL Normal 4.4-11.0 [facility] Comment on above: Performed By: #### B TS, L100.0100, L509.8002, L501.0250, L3890.6006 ####[facility] [address] [place], [place], [address] Glucose Challenge Gest 1H 50 hayley 01-24-2025 GLU GEST 50g 1H 151 mg/dL High 70-140 [facility] Comment on above: Performed By: #### B TS, L100.0100, L509.8002, L501.0250, L3890.6006 ####[facility] [address] [place], [address] HIVon 01-24-2025 HIV Non-Reactive Normal Nonreactive [facility] Comment on above: Result Comment: Non- ReactiveReactiveRepeatedly reactive samples must be confirmed according [facility] recommended confirmatory algorithms. The subresults foreither HIVAG or AHIV can be used as an aid in the selectionof the confirmation algorithm for reactive samples.Send out specimens with Reactive results to [facility] forconfirmation.Order the HIV antibody detection and differentiation:lc#[id number] Performed By: #### B TS, L100.0100, L509.8002, L501.0250, L3890.6006 ####[facility] [address] [place], [address] [facility] Visit Reporton 01-24-2025 [facility] Visit Report Normal [facility] Syphilis Antibodieson 2024 Syphilis Abs Non-Reactive Normal Nonreactive [facility] Comment on above: Performed By: #### B TS, L100.0100, L509.8002, L501.0250, L3890.6006 ####[facility] [address] [place], [place], [address] Type AND Screenon 01-24-2025 Ab SCREEN GEL Negative Normal [facility] Comment on above: Order Comment: PN Performed By: #### B TS, L100.0100, L509.8002, L501.0250, L3890.6006 ####[facility] [address] [place], [address] [facility] Visit Reporton 01-06-2025 [facility] Visit Report Normal [facility] 24 HR UR Creatinine Clearanc yanet 12-29-2024 CREAT CLEARANCE 155 ml/min Normal 100-200 [facility] Comment on above: Order Comment: 3150 ML Performed By: #### L 500.4507, L500.9000, L501.1105 ####[facility] [address] [place], [address] Creatinine [Mass/Vol] 0.6 mg/dL Normal 0.6-1.0 [facility] Comment on above: Order Comment: 3150 ML Performed By: #### L 500.4507, L500.9000, L501.1105 ####[facility] [address] [place], [address] RANDOM UR TV 3150.0 ML Normal [facility] Comment on above: Order Comment: 3150 ML Performed By: #### L 500.4507, L500.9000, L501.1105 ####[facility] [address] [place], [address] Protein, Urine 24HRon 2024 UR COLLECT TIME 24.0 HOURS Normal 24.0 [facility] Comment on above: Order Comment: 3150 ML Performed By: #### L 500.4507, L500.9000, L501.1105 ####[facility] [address] [place], [address] UR TOTAL VOLUME 3150 mL Normal [facility] Comment on above: Order Comment: 3150 ML Performed By: #### L 500.4507, L500.9000, L501.1105 ####[facility] [address] [place], [address] Serum Creatinine AND GFRon 0 - Creatinine [Mass/Vol] 0.56 mg/dL Low 0.70-1.20 [facility] Comment on above: Performed By: #### L 500.4507, L500.9000, L501.1105 ####[facility] [address] [place], [address] GFR/1.73 sq M.predicted among non-blacks MDRD (S/P/Bld) [Vol rate/Area] 131 mL/min/{1.73_m2} Normal >60 [facility] Comment on above: Result Comment: mL/m in/1.73m2 CKD-EPI Creatinine Equation (2020) Performed By: #### L 500.4507, L500.9000, L501.1105 ####[facility] [address] [place], [address] CBC W/Diff, Automatedon 07-2 Absolute Lymph 1.31 X10 3/uL Normal 0.83-4.51 [facility] Comment on above: Performed By: #### L 501.0900, L500.4050, L100.0100 ####[facility] [address] [place], [address] Absolute Neut 8.8 X10 3/uL High 2.0-7.7 [facility] Comment on above: Performed By: #### L 501.0900, L500.4050, L100.0100 ####[facility] [address] [place], [address] Basophils/100 WBC (Bld) 0.2 % Normal 0-1 [facility] Comment on above: Performed By: #### L 501.0900, L500.4050, L100.0100 ####[facility] [address] [place], [address] Eosinophils/100 WBC (Bld) 0.8 % Normal 0-5 [facility] Comment on above: Performed By: #### L 501.0900, L500.4050, L100.0100 ####[facility] [address] [place], [address] Erythrocyte distribution width (RBC) [Ratio] 12.8 % Normal 11.6-14.6 [facility] Comment on above: Performed By: #### L 501.0900, L500.4050, L100.0100 ####[facility] [address] [place], [address] Hematocrit (Bld) [Volume fraction] 33.8 % Low 37-47 [facility] Comment on above: Performed By: #### L 501.0900, L500.4050, L100.0100 ####[facility] [address] [place], [address] Hemoglobin (Bld) [Mass/Vol] 11.9 g/dL Low 12.0-15.0 [facility] Comment on above: Performed By: #### L 501.0900, L500.4050, L100.0100 ####[facility] [address] [place], [address] IG% 0.500 Normal 0.0-0.9 [facility] Comment on above: Result Comment: IG% - Immature Granulocytes (promyelocytes, myelocytes andmetamyelocytes) > 1% indicates that a LEFT SHIFT is Present. Performed By: #### L 501.0900, L500.4050, L100.0100 ####[facility] [address] [place], [address] Lymphocytes/100 WBC (Bld) 12.0 % Low 19-41 [facility] Comment on above: Performed By: #### L 501.0900, L500.4050, L100.0100 ####[facility] [address] [place], [address] MCH (RBC) [Entitic mass] 32.2 pg High 27.0-32.0 [facility] Comment on above: Performed By: #### L 501.0900, L500.4050, L100.0100 ####[facility] [address] [place], [address] MCHC (RBC) [Mass/Vol] 35.2 g/dL Normal 32-36 [facility] Comment on above: Performed By: #### L 501.0900, L500.4050, L100.0100 ####[facility] [address] [place], [address] MCV (RBC) [Entitic vol] 91.4 fL Normal 81-99 [facility] Comment on above: Performed By: #### L 501.0900, L500.4050, L100.0100 ####[facility] [address] [place], [address] Monocytes/100 WBC (Bld) 6.2 % Normal 0-10 [facility] Comment on above: Performed By: #### L 501.0900, L500.4050, L100.0100 ####[facility] [address] [place], [address] Neutrophils/100 WBC (Bld) 80.3 % High 47-70 [facility] Comment on above: Performed By: #### L 501.0900, L500.4050, L100.0100 ####[facility] [address] [place], [address] Nucleated RBC (Bld) [#/Vol] 0 10*3/uL Normal 0-5 [facility] Comment on above: Performed By: #### L 501.0900, L500.4050, L100.0100 ####[facility] [address] [place], [address] Platelet mean volume (Bld) [Entitic vol] 10.4 fL Normal 6.2-12.0 [facility] Comment on above: Performed By: #### L 501.0900, L500.4050, L100.0100 ####[facility] [address] [place], [address] Platelets (Bld) [#/Vol] 233 10*3/uL Normal 150-450 [facility] Comment on above: Performed By: #### L 501.0900, L500.4050, L100.0100 ####[facility] [address] [place], [address] RBC (Bld) [#/Vol] 3.70 10*6/uL Low 4.2-5.4 [facility] Comment on above: Performed By: #### L 501.0900, L500.4050, L100.0100 ####[facility] [address] [place], [address] RDW SD 42.2 fl Normal 35.1-43.9 [facility] Comment on above: Performed By: #### L 501.0900, L500.4050, L100.0100 ####[facility] [address] [place], [address] WBC (Bld) [#/Vol] 10.9 10*3/uL Normal 4.4-11.0 [facility] Comment on above: Performed By: #### L 501.0900, L500.4050, L100.0100 ####[facility] [address] [place], [address] Comprehensive Metabolic Prof [facility] 12-26-2024 Albumin [Mass/Vol] 3.5 g/dL Normal 3.5-5.0 [facility] Comment on above: Performed By: #### L 501.0900, L500.4050, L100.0100 ####[facility] [address] [place], [address] Albumin/Globulin [Mass ratio] 1.1 {ratio} Normal 0.9-2.4 [facility] Comment on above: Performed By: #### L 501.0900, L500.4050, L100.0100 ####[facility] [address] [place], [address] ALK PHOS 67 U/L Normal 35-104 [facility] Comment on above: Performed By: #### L 501.0900, L500.4050, L100.0100 ####[facility] [address] [place], [address] ALT [Catalytic activity/Vol] 9 U/L Normal <=34 [facility] Comment on above: Performed By: #### L 501.0900, L500.4050, L100.0100 ####[facility] [address] [place], [address] AST [Catalytic activity/Vol] 15 U/L Normal <=31 [facility] Comment on above: Performed By: #### L 501.0900, L500.4050, L100.0100 ####[facility] [address] [place], [address] Bilirubin [Mass/Vol] 0.18 mg/dL Normal 0.00-1.30 [facility] Comment on above: Performed By: #### L 501.0900, L500.4050, L100.0100 ####[facility] [address] [place], [address] BUN/CRE 10.2 RATIO Normal 10-20 [facility] Comment on above: Performed By: #### L 501.0900, L500.4050, L100.0100 ####[facility] [address] [place], [address] Calcium [Mass/Vol] 9.4 mg/dL Normal 7.6-11.0 [facility] Comment on above: Performed By: #### L 501.0900, L500.4050, L100.0100 ####[facility] [address] [place], [address] Chloride [Moles/Vol] 103 mmol/L Normal 98-108 [facility] Comment on above: Performed By: #### L 501.0900, L500.4050, L100.0100 ####[facility] [address] [place], [address] CO2 [Moles/Vol] 21.3 mmol/L Normal 21.0-32.0 [facility] Comment on above: Performed By: #### L 501.0900, L500.4050, L100.0100 ####[facility] [address] [place], [address] Creatinine [Mass/Vol] 0.50 mg/dL Low 0.70-1.20 [facility] Comment on above: Performed By: #### L 501.0900, L500.4050, L100.0100 ####[facility] [address] [place], [address] GAP 11 Normal 5-15 [facility] Comment on above: Performed By: #### L 501.0900, L500.4050, L100.0100 ####[facility] [address] [place], [address] GFR/1.73 sq M.predicted among non-blacks MDRD (S/P/Bld) [Vol rate/Area] 135 mL/min/{1.73_m2} Normal >60 [facility] Comment on above: Result Comment: mL/m in/1.73m2 CKD-EPI Creatinine Equation (2020) Performed By: #### L 501.0900, L500.4050, L100.0100 ####[facility] [address] [place], [address] Globulin (S) [Mass/Vol] 3.1 g/dL Normal 2.2-4.2 [facility] Comment on above: Performed By: #### L 501.0900, L500.4050, L100.0100 ####[facility] [address] [place], [address] Glucose [Mass/Vol] 98 mg/dL Normal 70-99 [facility] Comment on above: Performed By: #### L 501.0900, L500.4050, L100.0100 ####[facility] [address] [place], [address] Potassium [Moles/Vol] 3.9 mmol/L Normal 3.3-5.1 [facility] Comment on above: Performed By: #### L 501.0900, L500.4050, L100.0100 ####[facility] [address] [place], [address] Sodium [Moles/Vol] 136 mmol/L Normal 133-145 [facility] Comment on above: Performed By: #### L 501.0900, L500.4050, L100.0100 ####[facility] [address] [place], [address] T PROT 6.5 g/dL Normal 5.9-8.4 [facility] Comment on above: Performed By: #### L 501.0900, L500.4050, L100.0100 ####[facility] [address] [place], [address] Urea nitrogen [Mass/Vol] 5 mg/dL Normal 4-19 [facility] Comment on above: Performed By: #### L 501.0900, L500.4050, L100.0100 ####[facility] [address] [place], [address] [facility] Visit Reporton 12-26-2024 [facility] Office Visit Report Normal [facility] Protein+Creatinine Ratio,Uri neon 12-26-2024 PROT:CRE RATIO 315 mg/g CRE High 0-200 [facility] Comment on above: Performed By: #### L 501.0900, L500.4050, L100.0100 ####[facility] [address] [place], [address] Protein (U) [Mass/Vol] 8.4 mg/dL Normal 0.0-12.0 [facility] Comment on above: Performed By: #### L 501.0900, L500.4050, L100.0100 ####[facility] [address] [place], [address] UR CREAT 26.60 mg/dL Low 28.00-217.00 [facility] Comment on above: Performed By: #### L 501.0900, L500.4050, L100.0100 ####[facility] [address] [place], [address] Urine Cultureon 12-08-2024 [facility] Mixed Gram Positive Organisms [place] Count 25,000-50,000 MIXC Mixed contaminants. Submit a new specimen if indicated. Normal [facility] Comment on above: Performed By: #### M 100.2200 ####[facility] [address] [place], [address] [facility] Visit Reporton 12-07-2024 [facility] Office Visit Report Normal [facility] CBC W/Diff, Automatedon Absolute Lymph 1.34 X10 3/uL Normal 0.83-4.51 [facility] Comment on above: Performed By: #### L 100.0100, L500.4050 ####[facility] [address] [place], [address] Absolute Neut 8.6 X10 3/uL High 2.0-7.7 [facility] Comment on above: Performed By: #### L 100.0100, L500.4050 ####[facility] [address] [place], [address] Basophils/100 WBC (Bld) 0.2 % Normal 0-1 [facility] Comment on above: Performed By: #### L 100.0100, L500.4050 ####[facility] [address] [place], [address] Eosinophils/100 WBC (Bld) 0.7 % Normal 0-5 [facility] Comment on above: Performed By: #### L 100.0100, L500.4050 ####[facility] [address] [place], [address] Erythrocyte distribution width (RBC) [Ratio] 13.1 % Normal 11.6-14.6 [facility] Comment on above: Performed By: #### L 100.0100, L500.4050 ####[facility] [address] [place], [address] Hematocrit (Bld) [Volume fraction] 34.3 % Low 37-47 [facility] Comment on above: Performed By: #### L 100.0100, L500.4050 ####[facility] [address] [place], [address] Hemoglobin (Bld) [Mass/Vol] 11.9 g/dL Low 12.0-15.0 [facility] Comment on above: Performed By: #### L 100.0100, L500.4050 ####[facility] [address] [place], [address] IG% 0.600 Normal 0.0-0.9 [facility] Comment on above: Result Comment: IG% - Immature Granulocytes (promyelocytes, myelocytes andmetamyelocytes) > 1% indicates that a LEFT SHIFT is Present. Performed By: #### L 100.0100, L500.4050 ####[facility] [address] [place], [address] Lymphocytes/100 WBC (Bld) 12.4 % Low 19-41 [facility] Comment on above: Performed By: #### L 100.0100, L500.4050 ####[facility] [address] [place], [address] MCH (RBC) [Entitic mass] 32.3 pg High 27.0-32.0 [facility] Comment on above: Performed By: #### L 100.0100, L500.4050 ####[facility] [address] [place], [address] MCHC (RBC) [Mass/Vol] 34.7 g/dL Normal 32-36 [facility] Comment on above: Performed By: #### L 100.0100, L500.4050 ####[facility] [address] [place], [address] MCV (RBC) [Entitic vol] 93.2 fL Normal 81-99 [facility] Comment on above: Performed By: #### L 100.0100, L500.4050 ####[facility] [address] [place], [address] Monocytes/100 WBC (Bld) 6.9 % Normal 0-10 [facility] Comment on above: Performed By: #### L 100.0100, L500.4050 ####[facility] [address] [place], [address] Neutrophils/100 WBC (Bld) 79.2 % High 47-70 [facility] Comment on above: Performed By: #### L 100.0100, L500.4050 ####[facility] [address] [place], [address] Nucleated RBC (Bld) [#/Vol] 0 10*3/uL Normal 0-5 [facility] Comment on above: Performed By: #### L 100.0100, L500.4050 ####[facility] [address] [place], [address] Platelet mean volume (Bld) [Entitic vol] 10.6 fL Normal 6.2-12.0 [facility] Comment on above: Performed By: #### L 100.0100, L500.4050 ####[facility] [address] [place], [address] Platelets (Bld) [#/Vol] 246 10*3/uL Normal 150-450 [facility] Comment on above: Performed By: #### L 100.0100, L500.4050 ####[facility] [address] [place], [address] RBC (Bld) [#/Vol] 3.68 10*6/uL Low 4.2-5.4 [facility] Comment on above: Performed By: #### L 100.0100, L500.4050 ####[facility] [address] [place], [address] RDW SD 44.2 fl High 35.1-43.9 [facility] Comment on above: Performed By: #### L 100.0100, L500.4050 ####[facility] [address] [place], [address] WBC (Bld) [#/Vol] 10.8 10*3/uL Normal 4.4-11.0 [facility] Comment on above: Performed By: #### L 100.0100, L500.4050 ####[facility] [address] [place], [address] Comprehensive Metabolic Prof ilon 12-06-2024 Albumin [Mass/Vol] 3.4 g/dL Low 3.5-5.0 [facility] Comment on above: Performed By: #### L 100.0100, L500.4050 ####[facility] [address] [place], [address] Albumin/Globulin [Mass ratio] 1.1 {ratio} Normal 0.9-2.4 [facility] Comment on above: Performed By: #### L 100.0100, L500.4050 ####[facility] [address] [place], [address] ALK PHOS 70 U/L Normal 35-104 [facility] Comment on above: Performed By: #### L 100.0100, L500.4050 ####[facility] [address] [place], [address] ALT [Catalytic activity/Vol] 10 U/L Normal <=34 [facility] Comment on above: Performed By: #### L 100.0100, L500.4050 ####[facility] [address] [place], [address] AST [Catalytic activity/Vol] 17 U/L Normal <=31 [facility] Comment on above: Performed By: #### L 100.0100, L500.4050 ####[facility] [address] [place], [address] BUN/CRE 7.7 RATIO Low 10-20 [facility] Comment on above: Performed By: #### L 100.0100, L500.4050 ####[facility] [address] [place], [address] Calcium [Mass/Vol] 8.9 mg/dL Normal 7.6-11.0 [facility] Comment on above: Performed By: #### L 100.0100, L500.4050 ####[facility] [address] [place], [address] Chloride [Moles/Vol] 104 mmol/L Normal 98-108 [facility] Comment on above: Performed By: #### L 100.0100, L500.4050 ####[facility] [address] [place], [address] CO2 [Moles/Vol] 23.0 mmol/L Normal 21.0-32.0 [facility] Comment on above: Performed By: #### L 100.0100, L500.4050 ####[facility] [address] [place], [address] Creatinine [Mass/Vol] 0.52 mg/dL Low 0.70-1.20 [facility] Comment on above: Performed By: #### L 100.0100, L500.4050 ####[facility] [address] [place], [address] ECRCL 199.56 ml/min Normal 50-250 [facility] Comment on above: Performed By: #### L 100.0100, L500.4050 ####[facility] [address] [place], [address] GAP 10 Normal 5-15 [facility] Comment on above: Performed By: #### L 100.0100, L500.4050 ####[facility] [address] [place], [address] GFR/1.73 sq M.predicted among non-blacks MDRD (S/P/Bld) [Vol rate/Area] 134 mL/min/{1.73_m2} Normal >60 [facility] Comment on above: Result Comment: mL/m in/1.73m2 CKD-EPI Creatinine Equation (2020) Performed By: #### L 100.0100, L500.4050 ####[facility] [address] [place], [address] Globulin (S) [Mass/Vol] 3.0 g/dL Normal 2.2-4.2 [facility] Comment on above: Performed By: #### L 100.0100, L500.4050 ####[facility] [address] [place], [address] Glucose [Mass/Vol] 94 mg/dL Normal 70-99 [facility] Comment on above: Performed By: #### L 100.0100, L500.4050 ####[facility] [address] [place], [address] Potassium [Moles/Vol] 3.6 mmol/L Normal 3.3-5.1 [facility] Comment on above: Performed By: #### L 100.0100, L500.4050 ####[facility] [address] [place], [address] Sodium [Moles/Vol] 137 mmol/L Normal 133-145 [facility] Comment on above: Performed By: #### L 100.0100, L500.4050 ####[facility] [id number] [place], [address] T BILI < 0.15 Normal 0.00-1.30 [facility] Comment on above: Performed By: #### L 100.0100, L500.4050 ####[facility] [id number] [place], [address] T PROT 6.5 g/dL Normal 5.9-8.4 [facility] Comment on above: Performed By: #### L 100.0100, L500.4050 ####[facility] [id number] [place], [address] [place] nitrogen [Mass/Vol] 4 mg/dL Normal 4-19 [facility] Comment on above: Performed By: #### L 100.0100, L500.4050 ####[facility] [address] [place], [address] Emergency Department Summary on 12-06-2024 Emergency Department Summary Normal [facility] Urinalysis, Completeon 12-06 AMORPHOUS 1+ Normal [facility] Comment on above: Order Comment: CLEAN CATCH Performed By: #### L 400.0001 ####[facility] [address] [place], [address] BACTERIA 1+ /hpf Normal None Seen [facility] Comment on above: Order Comment: CLEAN CATCH Performed By: #### L 400.0001 ####[facility] [address] [place], [address] EPI,SQUAMOUS 10-25 SEEN Normal 5-10 [facility] Comment on above: Order Comment: CLEAN CATCH Performed By: #### L 400.0001 ####[facility] [address] [place], [address] RBC 0-5 SEEN Normal 0-5 [facility] Comment on above: Order Comment: CLEAN CATCH Performed By: #### L 400.0001 ####[facility] [address] [place], [address] WBC 10-25 SEEN Normal 0-5 [facility] Comment on above: Order Comment: CLEAN CATCH Performed By: #### L 400.0001 ####[facility] [address] [place], [address] Mucus Ql (Urine sed) 0 SEEN Normal [facility] Comment on above: Order Comment: CLEAN CATCH Performed By: #### L 400.0001 ####[facility] [address] [place], [address] [facility] Reporton 11-09-2024 [facility] Visit Report Normal [facility] Chlamydia/GC SANTY aptimaon CHLAMY,NUC ACID Negative Normal Negative [facility] Comment on above: Performed By: #### L 7000.1800 ####[facility] [address] [place], [address] GC BY NUC ACID Negative Normal Negative [facility] Comment on above: Result Comment: Perf ormed at: =G - [facility] [address] [place] [id number] Director: Monisha Ross MD, Phone: [phone] Performed By: #### L 7000.1800 ####[facility] [address] [place], [place], [address] [facility] Visit Reporton 11-04-2024 [facility] Visit Report Normal [facility] Type AND Screenon 11-04-2024 Ab SCREEN GEL Negative Normal [facility] Comment on above: Order Comment: PN Performed By: #### B TS ####[facility] [address] [place], [place], [id number] [facility] Visit Reporton 10-13-2024 [facility] Visit Report Normal [facility] Visit Reporton 10-05-2024 [facility] Visit Report Normal [facility] CBC W/Diff, Automatedon 04- Absolute Lymph 1.38 X10 3/uL Normal 0.83-4.51 [facility] Comment on above: Performed By: #### L 3890.6006, L509.8002, L509.4006, BTS, L3890.6301, L100.0100, L3890.6102, L900.0098 ####[facility] [address] [place], [place], [id number] Absolute Neut 9.1 X10 3/uL High 2.0-7.7 [facility] Comment on above: Performed By: #### L 3890.6006, L509.8002, L509.4006, BTS, L3890.6301, L100.0100, L3890.6102, L900.0098 ####[facility] [address] [place], [address] Basophils/100 WBC (Bld) 0.3 % Normal 0-1 [facility] Comment on above: Performed By: #### L 3890.6006, L509.8002, L509.4006, BTS, L3890.6301, L100.0100, L3890.6102, L900.0098 ####[facility] [address] [place], [address] Eosinophils/100 WBC (Bld) 0.8 % Normal 0-5 [facility] Comment on above: Performed By: #### L 3890.6006, L509.8002, L509.4006, BTS, L3890.6301, L100.0100, L3890.6102, L900.0098 ####[facility] [address] [place], [address] Erythrocyte distribution width (RBC) [Ratio] 13.6 % Normal 11.6-14.6 [facility] Comment on above: Performed By: #### L 3890.6006, L509.8002, L509.4006, BTS, L3890.6301, L100.0100, L3890.6102, L900.0098 ####[facility] [address] [place], [address] Hematocrit (Bld) [Volume fraction] 38.6 % Normal 37-47 [facility] Comment on above: Performed By: #### L 3890.6006, L509.8002, L509.4006, BTS, L3890.6301, L100.0100, L3890.6102, L900.0098 ####[facility] [address] [place], [address] Hemoglobin (Bld) [Mass/Vol] 13.3 g/dL Normal 12.0-15.0 [facility] Comment on above: Performed By: #### L 3890.6006, L509.8002, L509.4006, BTS, L3890.6301, L100.0100, L3890.6102, L900.0098 ####[facility] [address] [place], [address] IG% 0.500 Normal 0.0-0.9 [facility] Comment on above: Result Comment: IG% - Immature Granulocytes (promyelocytes, myelocytes andmetamyelocytes) > 1% indicates that a LEFT SHIFT is Present. Performed By: #### L 3890.6006, L509.8002, L509.4006, BTS, L3890.6301, L100.0100, L3890.6102, L900.0098 ####[facility] [address] [place], [address] Lymphocytes/100 WBC (Bld) 12.0 % Low 19-41 [facility] Comment on above: Performed By: #### L 3890.6006, L509.8002, L509.4006, BTS, L3890.6301, L100.0100, L3890.6102, L900.0098 ####[facility] [address] [place], [address] MCH (RBC) [Entitic mass] 30.6 pg Normal 27.0-32.0 [facility] Comment on above: Performed By: #### L 3890.6006, L509.8002, L509.4006, BTS, L3890.6301, L100.0100, L3890.6102, L900.0098 ####[facility] [address] [place], [address] MCHC (RBC) [Mass/Vol] 34.5 g/dL Normal 32-36 [facility] Comment on above: Performed By: #### L 3890.6006, L509.8002, L509.4006, BTS, L3890.6301, L100.0100, L3890.6102, L900.0098 ####[facility] [address] [place], [address] MCV (RBC) [Entitic vol] 88.7 fL Normal 81-99 [facility] Comment on above: Performed By: #### L 3890.6006, L509.8002, L509.4006, BTS, L3890.6301, L100.0100, L3890.6102, L900.0098 ####[facility] [address] [place], [address] Monocytes/100 WBC (Bld) 7.5 % Normal 0-10 [facility] Comment on above: Performed By: #### L 3890.6006, L509.8002, L509.4006, BTS, L3890.6301, L100.0100, L3890.6102, L900.0098 ####[facility] [address] [place], [address] Neutrophils/100 WBC (Bld) 78.9 % High 47-70 [facility] Comment on above: Performed By: #### L 3890.6006, L509.8002, L509.4006, BTS, L3890.6301, L100.0100, L3890.6102, L900.0098 ####[facility] [address] [place], [address] Nucleated RBC (Bld) [#/Vol] 0 10*3/uL Normal 0-5 [facility] Comment on above: Performed By: #### L 3890.6006, L509.8002, L509.4006, BTS, L3890.6301, L100.0100, L3890.6102, L900.0098 ####[facility] [address] [place], [address] Platelet mean volume (Bld) [Entitic vol] 10.6 fL Normal 6.2-12.0 [facility] Comment on above: Performed By: #### L 3890.6006, L509.8002, L509.4006, BTS, L3890.6301, L100.0100, L3890.6102, L900.0098 ####[facility] [address] [place], [address] Platelets (Bld) [#/Vol] 274 10*3/uL Normal 150-450 [facility] Comment on above: Performed By: #### L 3890.6006, L509.8002, L509.4006, BTS, L3890.6301, L100.0100, L3890.6102, L900.0098 ####[facility] [address] [place], [address] RBC (Bld) [#/Vol] 4.35 10*6/uL Normal 4.2-5.4 [facility] Comment on above: Performed By: #### L 3890.6006, L509.8002, L509.4006, BTS, L3890.6301, L100.0100, L3890.6102, L900.0098 ####[facility] [address] [place], [address] RDW SD 44.1 fl High 35.1-43.9 [facility] Comment on above: Performed By: #### L 3890.6006, L509.8002, L509.4006, BTS, L3890.6301, L100.0100, L3890.6102, L900.0098 ####[facility] [address] [place], [address] WBC (Bld) [#/Vol] 11.5 10*3/uL High 4.4-11.0 [facility] Comment on above: Performed By: #### L 3890.6006, L509.8002, L509.4006, BTS, L3890.6301, L100.0100, L3890.6102, L900.0098 ####[facility] [address] [place], [place], [address] HIVon 09-19-2024 HIV Non-Reactive Normal Nonreactive [facility] Comment on above: Result Comment: Non- ReactiveReactiveRepeatedly reactive samples must be confirmed according [facility] recommended confirmatory algorithms. The subresults foreither HIVAG or AHIV can be used as an aid in the selectionof the confirmation algorithm for reactive samples.Send out specimens with Re[facility].Order the HIV antibody detection and differentiation:#[id number] Performed By: #### L 3890.6006, L509.8002, L509.4006, BTS, L3890.6301, L100.0100, L3890.6102, L900.0098 ####[facility] [address] [place], [place], [phone] Hepatitis C Antibodyon 09-19 Hepatitis C Ab Non-Reactive Normal Nonreactive [facility] Comment on above: Result Comment: Reac tive: Presumptive evidence of antibodies to HCV. [facility] testing.Non-Reactive: Antibodies to HCV were not detected; does notexclude the possibility of exposure to HCVReactive Results are presumptive evidence of antibodies toHCV. Follow CDC recommendations for supplemental testing.Order confirmation testing: HCV Quant by PCR testing -HCVPCR #[id number] Non Reactive: < 0.8 Equivocal: >/= 0.8 to < 1.0 Reactive: >/= 1.0The [facility] requires that a reactive/equivocal HCV antibodyresult be sent out for confirmation. HCV Quant by PCRtesting. Performed By: #### L 3890.6006, L509.8002, L509.4006, BTS, L3890.6301, L100.0100, L3890.6102, L900.0098 ####[facility] [address] [place], [place], [id number] L3890.6102on 09-19-2024 HEP B Surf Ag Non-Reactive Normal Nonreactive [facility] Comment on above: Result Comment: Reac tive: Presumptive evidence of HBV. Repeatedly reactivesamples must be confirmed using a neutralization test([employer] HBsAg Confirmatory Test)Non-Reactive: HBsAg not detected; does not exclude thepossibility of exposure to HBV Performed By: #### L 3890.6006, L509.8002, L509.4006, BTS, L3890.6301, L100.0100, L3890.6102, L900.0098 ####[facility] [address] [place], [address] L509.4006on 09-19-2024 Rubella IgG REAC Normal Nonreactive [facility] Comment on above: Result Comment: Anti body Result: InterpretationNon-Reactive: Non-ImmuneReactive: ImmuneThe following results were obtained with the ElecsysRubella IgG assay. Results from assays of othermanufacturers cannot be used interchangeably. Performed By: #### L 3890.6006, L509.8002, L509.4006, BTS, L3890.6301, L100.0100, L3890.6102, L900.0098 ####[facility] [address] [place], [place], [phone] NATERAon 09-19-2024 NATURA SEE SCANNED REPORT Normal [facility] Comment on above: Performed By: #### L 3890.6006, L509.8002, L509.4006, BTS, L3890.6301, L100.0100, L3890.6102, L900.0098 ####[facility] [address] [place], [place], [address] Syphilis Antibodieson 2024 Syphilis Abs Non-Reactive Normal Nonreactive [facility] Comment on above: Performed By: #### L 3890.6006, L509.8002, L509.4006, BTS, L3890.6301, L100.0100, L3890.6102, L900.0098 ####[facility] [address] [place], [place], [phone] Type AND Screenon 09-19-2024 Ab SCREEN GEL Negative Normal [facility] Comment on above: Order Comment: PN Performed By: #### L 3890.6006, L509.8002, L509.4006, BTS, L3890.6301, L100.0100, L3890.6102, L900.0098 ####[facility] [address] [place], [address] [facility] Visit Reporton 09-14-2024 [facility] Visit Report Normal [facility] Transvaginal w/Preg USon Transvaginal w/Preg US Normal [facility] Visit Reporton 08-24-2024 [facility] Visit Report Normal [facility] Urine Cultureon 08-21-2024 URC Below infection leve l. Mixed Gram Positive Organisms [place] Count <1000 MIXC Mixed contaminants. Submit a new specimen if indicated. Normal [facility] Comment on above: Performed By: #### L 505.5000, M100.2200 ####[facility] [address] [place], [address] [facility] Visit Reporton 08-19-2024 [facility] Office Visit Report Normal [facility] Urine Drug Screen (VISTA)on 08-19-2024 AMPHETAMINES Negative Normal <1000 ng/mL [facility] Comment on above: Order Comment: UNK Performed By: #### L 505.5000, M100.2200 ####[facility] [address] [place], [address] BARBITIURATES Negative Normal < 200 ng/mL [facility] Comment on above: Order Comment: UNK Performed By: #### L 505.5000, M100.2200 ####[facility] [address] [place], [address] BENZODIAZIPINE Negative Normal < 200 ng/mL [facility] Comment on above: Order Comment: UNK Performed By: #### L 505.5000, M100.0 ####[facility] [address] [place], [address] BUP Ur Drug Scr Negative Normal < 200 ng/mL [facility] Comment on above: Order Comment: UNK Performed By: #### L 505.5000, 00.0 ####[facility] [address] [place], [address] COCAINE Negative Normal < 300 ng/mL [facility] Comment on above: Order Comment: UNK Performed By: #### L 505.5000, .0 ####[facility] [address] [place], [address] Fentanyl Negative Normal [facility] Comment on above: Order Comment: UNK Performed By: #### L 505.5000, 0 ####[facility] [address] [place], [address] METHADONE Negative Normal < 300 ng/mL [facility] Comment on above: Order Comment: UNK Performed By: #### L 505.5000, ####[facility] [address] [place], [address] OPIATES Negative Normal < 300 ng/mL [facility] Comment on above: Order Comment: UNK Performed By: #### L 505.5000, .0 ####[facility] [address] [place], [address] OXYCODONE Negative Normal < 100 ng/mL [facility] Comment on above: Order Comment: UNK Performed By: #### L 505.5000, ####[facility] [address] [place], [address] PCP Negative Normal < 25 ng/mL [facility] Comment on above: Order Comment: UNK Performed By: #### L 505.5000, 0 ####[facility] [address] [place], [address] THC Negative Normal < 50 ng/mL [facility] Comment on above: Order Comment: UNK Performed By: #### L 505.5000, M100.2200 ####[facility] [address] [place], [address] B-HCG SerPl-[place] 5 [place] [address].0 m[IU]/mL High <5.0 [facility] Comment on above: Order Comment: Speci men Type: BLOOD SPECIMENOrdering Facility: [facility] Address: [address] [place] [address] Result Comment: DIEGO TITATIVE HCG NORMAL RANGES Weeks of Gestation (Weeks Since LMP) 3 Weeks (5.8-71.2 mIU/mL) 4 Weeks (9.5-750 mIU/mL) 5 Weeks (217-7138 mIU/mL) 6 Weeks (158-46789 mIU/mL) 7 Weeks (3697-957204 mIU/mL) 8 Weeks (11699-966112 mIU/mL) 9 Weeks (63518-514950 mIU/mL) 10 Weeks (63390-486021 mIU/mL) 12 Weeks (06154-511608 mIU/mL) Referenced to 4th IS of [facility] Performed By: #### 2 1198-7 ####[facility] LABCLIA [id number] [place] [address] [place] B-HCG SerPl-aCn[place] 5 [place] [address].0 m[IU]/mL High <5.0 [facility] Comment on above: Order Comment: Speci men Type: BLOOD SPECIMENOrdering Facility: [facility] Address: [address] [place] [address] Result Comment: DIEGO TITATIVE HCG NORMAL RANGES Weeks of Gestation (Weeks Since LMP) 3 Weeks (5.8-71.2 mIU/mL) 4 Weeks (9.5-750 mIU/mL) 5 Weeks (217-7138 mIU/mL) 6 Weeks (158-78619 mIU/mL) 7 Weeks (3697-933389 mIU/mL) 8 Weeks (12821-838176 mIU/mL) 9 Weeks (93691-342386 mIU/mL) 10 Weeks (82149-415680 mIU/mL) 12 Weeks (21610-192176 mIU/mL) Referenced to 4th IS of [facility] Performed By: #### 2 1198-7 ####[facility] LABCLIA [id number] [address] OF [facility] CNPNon 08-12-2024 CNPN Telephone (OBGYWM) -------- ALEJANDRA KIRAN ([id number]) 2 F Date Time Provider Department 08/12/24 [...] Status:Closed by DASHA WELSH on 08/12/24 Normal [facility] B-HCG [facility]-aCncon 5 HCG.beta subunit Qn 8329.0 m[IU]/mL High <5.0 [facility] Comment on above: Order Comment: Speci men Type: BLOOD SPECIMENOrdering Facility: [facility] Address: [address] [place] [address] Result Comment: DIEGO TITATIVE HCG NORMAL RANGES Weeks of Gestation (Weeks Since LMP) 3 Weeks (5.8-71.2 mIU/mL) 4 Weeks (9.5-750 mIU/mL) 5 Weeks (217-7138 mIU/mL) 6 Weeks (158-08214 mIU/mL) 7 Weeks (3697-193955 mIU/mL) 8 Weeks (43609-598389 mIU/mL) 9 Weeks (07594-697714 mIU/mL) 10 Weeks (47773-980736 mIU/mL) 12 Weeks (31375-673770 mIU/mL) Referenced to 4th IS of [facility] Performed By: #### 2 1198-7 ####[facility] LABCLIA [id number] [place] [address] [place] Bacteria Ur Culton Bacteria identified Cx Nom (U) ORGANISM ID: 1 10,000 -<50,000 CFU/ml Normal urogenital jhony Normal [facility] Comment on above: Performed By: #### 6 30-4 ####[facility] LABCLIA [id number] [place] [address] [place] C. trachomatis+N. gonorrhoea e DNA SANTY+probe Ql (Unsp spec)on 08-11-2024 C. trachomatis rRNA SANTY+probe Ql (Unsp spec) Not detected Normal Not detected [facility] Comment on above: Order Comment: Speci men Type: SWABOrdering Facility: [facility] Address: [address] [place] [address] Performed By: #### 3 6902-5, TRVAELIANE ####[facility] LABIA [id number] [address] [place] N. gonorrhoeae rRNA SANTY+probe Ql (Unsp spec) Not detected Normal Not detected [facility] Comment on above: Order Comment: Speci men Type: SWABOrdering Facility: [facility] Address: [address] [place] [address] Performed By: #### 3 6902-5, TRVAMP ####[facility] LABIA [id number] [place] [address] [place] CBC W Auto Differential pane l (Bld)on 08-11-2024 Basophils (Bld) [#/Vol] 10*3/uL Normal <0.11 [facility] Comment on above: Order Comment: Speci men Type: BLOOD SPECIMENOrdering Facility: [facility] Address: [address] [place] [address] Performed By: #### 5 7021-8 ####[facility] BRENNANWSILASLIA [id number] [place] [address] [place] Basophils/100 WBC (Bld) 0.2 % Normal [facility] Comment on above: Order Comment: Speci men Type: BLOOD SPECIMENOrdering Facility: [facility] Address: [address] [place] [address] Performed By: #### 5 7021-8 ####[facility]ITALLIA [id number] [place] [address] [place] Differential cell count method Nom (Bld) Auto Normal [facility] Comment on above: Order Comment: Speci men Type: BLOOD SPECIMENOrdering Facility: [facility] Address: [address] [place] [address] Performed By: #### 5 7021-8 ####[facility] [id number] [place] [address] [place] Eosinophils (Bld) [#/Vol] 0.11 10*3/uL Normal <0.46 [facility] Comment on above: Order Comment: Speci men Type: BLOOD SPECIMENOrdering Facility: [facility] Address: [address] [place] [address] Performed By: #### 5 7021-8 ####[facility] BRENNANWNCLIA [id number] [place] [address] [place] Eosinophils/100 WBC (Bld) 1.4 % Normal [facility] Comment on above: Order Comment: Speci men Type: BLOOD SPECIMENOrdering Facility: [facility] Address: [address] [place] [address] Performed By: #### 5 7021-8 ####[facility] [id number] [place] [id number] [place] Erythrocyte distribution width (RBC) [Ratio] 14.1 % Normal 11.5-15.0 [facility] Comment on above: Order Comment: Speci men Type: BLOOD SPECIMENOrdering Facility: [facility] Address: [address] [place] [address] Performed By: #### 5 7021-8 ####[facility]ITALSILASLIA [id number] [place] [address] [place] Hematocrit (Bld) [Volume fraction] 40.2 % Normal 36.0-46.0 [facility] Comment on above: Order Comment: Speci men Type: BLOOD SPECIMENOrdering Facility: [facility] Address: [address] [place] [address] Performed By: #### 5 7021-8 ####[facility]CL[facility] [id number] [place] [address] [place] Hemoglobin (Bld) [Mass/Vol] 13.7 g/dL Normal 11.5-15.5 [facility] Comment on above: Order Comment: Speci men Type: BLOOD SPECIMENOrdering Facility: [facility] Address: [address] [place] [address] Performed By: #### 5 7021-8 ####[facility]IT[facility] [id number] [place] [address] [place] Immature granulocytes (Bld) [#/Vol] 10*3/uL Normal <0.10 [facility] Comment on above: Order Comment: Speci men Type: BLOOD SPECIMENOrdering Facility: [facility] Address: [address] [place] [address] Performed By: #### 5 7021-8 ####[facility]ITALNCL[facility] [id number] [place] [address] [place] Immature granulocytes/100 WBC (Bld) 0.1 % Normal [facility] Comment on above: Order Comment: Speci men Type: BLOOD SPECIMENOrdering Facility: [facility] Address: [address] [place] [address] Performed By: #### 5 7021-8 ####[facility] DARLENENCMARLIN [id number] [place] [address] [place] Lymphocytes (Bld) [#/Vol] 1.41 10*3/uL Normal 1.00-4.00 [facility] Comment on above: Order Comment: Speci men Type: BLOOD SPECIMENOrdering Facility: [facility] Address: [address] [place] [address] Performed By: #### 5 7021-8 ####[facility] HOSPITALSIL[facility] [id number] [place] [address] [place] Lymphocytes/100 WBC (Bld) 17.3 % Normal [facility] Comment on above: Order Comment: Speci men Type: BLOOD SPECIMENOrdering Facility: [facility] Address: [address] [place] [address] Performed By: #### 5 7021-8 ####[facility] [id number] [place] [address] [place] MCH (RBC) [Entitic mass] 30.0 pg Normal 26.0-34.0 [facility] Comment on above: Order Comment: Speci men Type: BLOOD SPECIMENOrdering Facility: [facility] Address: [address] [place] [id number] Performed By: #### 5 7021-8 ####[facility] [id number] [place] [address] [place] MCHC (RBC) [Mass/Vol] 34.1 g/dL Normal 30.5-36.0 [facility] Comment on above: Order Comment: Speci men Type: BLOOD SPECIMENOrdering Facility: [facility] Address: [address] [place] [address] Performed By: #### 5 7021-8 ####[facility] MILLWNCLIA [id number] [place] [address] [place] MCV (RBC) [Entitic vol] 88.2 fL Normal 80.0-100.0 [facility] Comment on above: Order Comment: Speci men Type: BLOOD SPECIMENOrdering Facility: [facility] Address: [address] [place] [address] Performed By: #### 5 7021-8 ####[facility]IT[facility] [id number] [place] [address] [place] Monocytes (Bld) [#/Vol] 0.66 10*3/uL Normal <0.87 [facility] Comment on above: Order Comment: Speci men Type: BLOOD SPECIMENOrdering Facility: [facility] Address: [address] [place] [address] Performed By: #### 5 7021-8 ####[facility] [id number] [place] [address] [place] Monocytes/100 WBC (Bld) 8.1 % Normal [facility] Comment on above: Order Comment: Speci men Type: BLOOD SPECIMENOrdering Facility: [facility] Address: [address] [place] [address] Performed By: #### 5 7021-8 ####[facility]ITALLIA [id number] [place] [address] [place] Neutrophils (Bld) [#/Vol] 5.93 10*3/uL Normal 1.45-7.50 [facility] Comment on above: Order Comment: Speci men Type: BLOOD SPECIMENOrdering Facility: [facility] Address: [address] [place] [address] Performed By: #### 5 7021-8 ####[facility] [id number] [place] [address] [place] Neutrophils/100 WBC (Bld) 72.9 % Normal [facility] Comment on above: Order Comment: Speci men Type: BLOOD SPECIMENOrdering Facility: [facility] Address: [address] [place] [address] Performed By: #### 5 7021-8 ####[facility] [id number] [place] [address] [place] Nucleated RBC (Bld) [#/Vol] 10*3/uL Normal <0.01 [facility] Comment on above: Order Comment: Speci men Type: BLOOD SPECIMENOrdering Facility: [facility] Address: [address] [place] [address] Performed By: #### 5 7021-8 ####[facility] [id number] [place] [address] [place] Nucleated RBC/100 WBC (Bld) [Ratio] 0.0 /100 WBC Normal [facility] Comment on above: Order Comment: Speci men Type: BLOOD SPECIMENOrdering Facility: [facility] Address: [address] [place] [address] Performed By: #### 5 7021-8 ####[facility]NCL[facility] [id number] [place] [address] [place] Platelet mean volume (Bld) [Entitic vol] 10.0 fL Normal 9.0-12.7 [facility] Comment on above: Order Comment: Speci men Type: BLOOD SPECIMENOrdering Facility: [facility] Address: [address] [place] [address] Performed By: #### 5 7021-8 ####[facility]NCL[facility] [id number] [place] [address] [place] Platelets (Bld) [#/Vol] 266 10*3/uL Normal 150-400 [facility] Comment on above: Order Comment: Speci men Type: BLOOD SPECIMENOrdering Facility: [facility] Address: [address] [place] [address] Performed By: #### 5 7021-8 ####[facility] [id number] [place] [address] [place] RBC (Bld) [#/Vol] 4.56 10*6/uL Normal 3.90-5.20 [facility] Comment on above: Order Comment: Speci men Type: BLOOD SPECIMENOrdering Facility: [facility] Address: [address] [place] [address] Performed By: #### 5 7021-8 ####[facility]ITALNCA [id number] [place] [address] [place] WBC (Bld) [#/Vol] 8.14 10*3/uL Normal 3.70-11.00 [facility] Comment on above: Order Comment: Speci men Type: BLOOD SPECIMENOrdering Facility: [facility] Address: [address] [place] [address] Performed By: #### 5 7021-8 ####[facility] [id number] [place] [address] [place] HBV surface Ag Ql (S)on 07-30 Interpretation and review of laboratory results Normal [facility] HBV surface Ag Ser Qlon 07-30 HBV surface Ag Ql (S) Negative Normal Negative [facility] Comment on above: Order Comment: Speci men Type: BLOOD SPECIMENOrdering Facility: [facility] Address: [address] [place] [address] Performed By: #### 5 195-3, 65722-4, 91682-2 ####[facility] LABCLIA [id number] [place] [address] [place] HCG QUANTITATIVEon 5 HCG.beta subunit Qn 8329 m[IU]/mL High NINF [facility] Comment on above: QUANTITATIVE HCG NOR MAL RANGES Weeks of Gestation (Weeks Since LMP) 3 Weeks (5.8-71.2 mIU/mL) 4 Weeks (9.5-750 mIU/mL) 5 Weeks (217-7138 mIU/mL) 6 Weeks (158-04884 mIU/mL) 7 Weeks (3697-070963 mIU/mL) 8 Weeks (45849-862048 mIU/mL) 9 Weeks (51601-109371 mIU/mL) 10 Weeks (14975-583016 mIU/mL) 12 Weeks (89686-668455 mIU/mL) Referenced to 4th IS of [facility] HCG.beta subunit Qnon 2024 Interpretation and review of laboratory results Abnormal [facility] HCV Ab Ser Qlon 08-11-2024 HCV Ab Ql (S) Negative Normal Negative [facility] Comment on above: Order Comment: Speci men Type: BLOOD SPECIMENOrdering Facility: [facility] Address: [address] [place] [address] Result Comment: The result suggests no evidence of active infection with Hepatitis C virus. Should recent infection be suspected, repeat testing may be considered 4-6 weeks after this draw. Performed By: #### 1 6128-1 ####[facility] LABCLIA [id number] [place] [address] [place] HEPATITIS B SURFACE ANTIGENo n 08-11-2024 HBV surface Ag Ql (S) Negative Negative [facility] HIV 1+2 Ab IA Qlon HIV 1 and 2 Ab IA.rapid Nom (S/P/Bld) [facility] Comment on above: Test not indicated. HIV 1+2 Ab+HIV1 p24 Ag IA Ql Non-Reactive Nonreactive [facility] HIV immunoassay testing algorithm interpretation (S/P/Bld) [Interp] [facility] Comment on above: No evidence of HIV-1 or HIV-2 infection. Should recent infection be suspected, repeat testing may be considered 2-3 weeks after this draw. [facility]ady Rev. Code 3701.243(E): This information has been [...] release of HIV test results or diagnoses. [facility] HIV 1 and 2 Ab IA.rapid Nom (S/P/Bld) Normal [facility] Comment on above: Order Comment: Speci men Type: BLOOD SPECIMENOrdering Facility: [facility] Address: [address] [place] [address] Result Comment: Test not indicated. Performed By: #### 5 195-3, 50084-1, 08703-3 ####[facility] [id number] [place] [address] [place] HIV 1+2 Ab+HIV1 p24 Ag IA Ql Non-Reactive Normal Nonreactive [facility] Comment on above: Order Comment: Speci men Type: BLOOD SPECIMENOrdering Facility: [facility] Address: [address] [place] [address] Performed By: #### 5 195-3, 87581-3, 60203-5 ####[facility] LABIA [id number] [place] [address] [place] HIV immunoassay testing algorithm interpretation (S/P/Bld) [Interp] Normal [facility] Comment on above: Order Comment: Speci men Type: BLOOD SPECIMENOrdering Facility: [facility] Address: [address] [place] [address] Result Comment: No e vidence of HIV-1 or HIV-2 infection. Should recent infection be suspected, repeat testing may be considered 2-3 weeks after this draw. [facility] Rev. Code 3701.243(E): This information has been [...] or diagnoses. Performed By: #### 5 195-3, 98838-0, 45881-9 ####[facility] LABCLIA [id number] [place] [address] [place] HbA1c (Bld)on 08-11-2024 Average glucose Estimated from glycated hemoglobin (Bld) [Mass/Vol] 97 mg/dL [facility] Comment on above: eAG: (Estimated aver age glucose) is a calculated value from HgbA1c and is assisted sales representative of the average blood glucose level in the last 2-3 month period. HbA1c (Bld) [Mass fraction] 5 % 4.3 - 5.6 % [facility] Comment on above: [place] Diabetes As sociation guidelines indicate that patients with HgbA1c in the range 5.7-6.4% are at increased risk for development of diabetes, and intervention by lifestyle modification may be beneficial. HgbA1c greater or equal to 6.5% is considered diagnostic of diabetes. [facility] Average glucose Estimated from glycated hemoglobin (Bld) [Mass/Vol] 97 mg/dL Normal [facility] Comment on above: Order Comment: Speci men Type: BLOOD SPECIMENOrdering Facility: [facility] Address: [address] [place] [address] Result Comment: eAG: (Estimated average glucose) is a calculated value from HgbA1c and is assisted sales representative of the average blood glucose level in the last 2-3 month period. Performed By: #### 5 5454-3 ####[facility] LABIA [id number] [place] [id number] [place] HbA1c (Bld) [Mass fraction] 5.0 % Normal 4.3-5.6 [facility] Comment on above: Order Comment: Speci men Type: BLOOD SPECIMENOrdering Facility: [facility] Address: [address] [place] [address] Result Comment: Amer [place] Diabetes Association guidelines indicate that patients with HgbA1c in the range 5.7-6.4% are at increased risk for development of diabetes, and intervention by lifestyle modification may be beneficial. HgbA1c greater or equal to 6.5% is considered diagnostic of diabetes. Performed By: #### 5 5454-3 ####[facility] LABIA [id number] [place] [id number] [place] POC PLANT WORKER ULTRASOUNDon 08-12-19 25 Indication Viability; confirm cardiac [...] Read By: Christianne Carranza CNM MATERNAL MEDICINE [facility] Radiology Study observation (narrative) [facility] RUBELLA IGG ANTIBODYon 08-11 RUBELLA IGG AB, QUAL Positive Normal Positive [facility] Comment on above: Order Comment: Speci men Type: BLOOD SPECIMENOrdering Facility: [facility] Address: [address] [place] [address] Result Comment: The result suggests recent or past exposure to Rubella virus or history of Rubella vaccination. Positive result may also be seen due to presence of passively-transferred antibodies. Please correlate with patient's history. Performed By: #### R UBIGG ####[facility] LABIA [id number] [address] [place] Reagin and Treponema pallidu m IgG and IgM [Interp]on 08-11-2024 T. pallidum IgG+IgM IA Ql (S) Non-Reactive Nonreactive [facility] T. pallidum IgG+IgM IA Ql (S) Non-Reactive Normal Nonreactive [facility] Comment on above: Order Comment: Speci men Type: BLOOD SPECIMENOrdering Facility: [facility] Address: [address] [place] [address] Performed By: #### 5 195-3, 99701-8, 97084-7 ####[facility] LABIA [id number] [place] [address] [place] Reagin+T pallidum IgG+IgM Se rPl-Impon 08-11-2024 Reagin and Treponema pallidum IgG and IgM [Interp] Cannot exclude recent Treponemal infection if specimen collected within 7-10 days after appearance of suspect lesions or 2-3 weeks after an exposure. Clinical correlation is required. Normal [facility] Comment on above: Order Comment: Speci men Type: BLOOD SPECIMENOrdering Facility: [facility] Address: [address] [place] [address] Performed By: #### 5 195-3, 01329-6, 41299-3 ####[facility] LABIA [id number] [place] [id number] [place] SYPHILIS TREPONEMAL W/REFLEX on 08-11-2024 Reagin and Treponema pallidum IgG and IgM [Interp] Cannot exclude recent Treponemal infection if specimen collected within 7-10 days after appearance of suspect lesions or 2-3 weeks after an exposure. Clinical correlation is required. [facility] TRICHOMONAS VAGINALIS NAATon 08-11-2024 T. vaginalis DNA SANTY+probe Ql (Unsp spec) Not detected Normal Not detected [facility] Comment on above: Order Comment: Speci men Type: SWABOrdering Facility: [facility] Address: [address] [place] [address] Performed By: #### 3 6902-5, TRVAMP ####[facility] LABIA [id number] [place] [id number] [place] TYPE + SCREEN PRENATALon ABO group Nom (Bld) A [facility] Blood group antibody screen Ql Negative [facility] Rh Nom (Bld) Negative [facility] Type and Screen Expiration 08/14/2024 23:59 [facility] ABO A Normal [facility] Comment on above: Order Comment: Speci men Type: BLOOD SPECIMENOrdering Facility: [facility] Address: [address] [place] [address] Performed By: #### T SPN ####[facility] BANKCLIA [id number] [address] [place] Rh Nom (Bld) Negative Normal [facility] Comment on above: Order Comment: Speci men Type: BLOOD SPECIMENOrdering Facility: [facility] Address: [address] [place] [address] Performed By: #### T SPN ####[facility] BLO[facility] BANKCLIA [id number] [address] [place] TYPE AND SCREEN EXPIRATION 08/14/2024 23:59 Normal [facility] Comment on above: Order Comment: Speci men Type: BLOOD SPECIMENOrdering Facility: [facility] Address: [address] [place] [address] Performed By: #### T SPN ####[facility] BLO[facility] BANKCLIA [id number] [place] [id number] [facility] [place] CNPNon 08-09-2024 CNPN Telephone (OBGYWM) -------- ALEJANDRA KIRAN ([id number]) 2 F Date Time Provider Department 08/09/24 [...] CNOVon 06-29-2024 CNOV Office Visit (OBGYWM ) -------- ALEJANDRA [id number]) 2 F Date Time Provider Department 06/29/24 9:10 AM MIKE CEBALLOS During your visit today, we recorded the following information about you: Blood pressure Weight Height Last Period 100/64 80.7 kg 1.727 m 06/01/24 Mike Ceballos MD 07/01/2024 10:13 AM Signed Business Services Sales Representative offered: Patient accepts, visit chaperoned by Erica [...] L0 SAB0 IAB0 Ectopic0 Multiple0 Live Births0 Transmission Repairer History LMP: 06/01/2024, Having periods Age at Menarche: 13 Age at First : Age at Menopause: Transmission Repairer History Comments: Sexual Activity: Yes; Male Contraception: [...] discussed with the Patient or Patient's Authorized Canal Boat Operator. As applicable, any other physician, advance practice provider, medical student, or other health professional student that will be observing or involved in the sensitive examination for educational or training purposes was discussed with the Patient or Authorized Canal Boat Operator. The Patient or Authorized Canal Boat Operator has agreed to proceed with the sensitive [...] external genitalia normal, normal Bartholin's glands, urethra, [place]'s glands, no vulvar lesions, no cervical lesions, [...] - Cough (more content not included)... Normal [facility] UA DIP,URINE HCG (POC)on Beta HCG ( test) Ql (U) Negative Negative [facility] Comment on above: Location:[facility], [address], [place], [address] Bike Designer (POCT) Internal QC [place] [facility] Location:[facility], [address], [place], [address] POINT OF CARE [facility] CNOVon 05-11-2024 CNOV Office Visit (OBGYWM ) -------- ALEJANDRA KIRAN ([id number]) 2 F Date Time Provider Department 05/11/24 10:30 AM MIKE CEBALLOS During your visit today, we recorded the following information about you: Blood pressure Weight 106/74 76.2 kg Mike Ceballos MD 05/11/2024 10:51 AM Signed Business Services Sales Representative offered: Patient accepts, visit chaperoned by Erica [...] Mike Ceballos MD Referring Provider: DELL ALONSO [[id number]] Allergies As of Date: 05/11/2024 Noted Allergy Reaction POTATO 06/24/2016 2 - Rash 4 - Hives SEASONAL ALLERGIES 02/18/2018 3 - Cough Comments: Seasonal allergies Date Reviewed: 05/11/2024 Reviewed by: Erica Beverly MA - Fully Assessed Reason for Visit: IUD Removal [1949] Primary Visit Diagnosis:Encounter for IUD removal [Z30.432] Order(s):REMOVE INTRAUTERINE DEVICE [[id number]] Order #: [id number] UA DIP,URINE HCG (POC) [1543360] Order #: [id number]. #:[id number] Prescriptions as of 05/11/2024 - cetirizine (ZYRTEC) [...] for Encounter Date Provider Department Center 05/11/2024 [id number] CEBALLOS Encounter Status:Closed by MIKE CEBALLOS on 05/11/24 Normal [facility] UA DIP,URINE HCG (POC)on Beta HCG ( test) Ql (U) Negative Negative [facility] Comment on above: Location:[facility], [address], [place], [address] Bike Designer (POCT) Internal [facility] Location:[facility], [address], [place], [place], [id number] [place] [address] POINT OF CARE [facility] 01-18-2024 CNPN Telephone ([place]) -------- ALEJANDRA KIRAN ([id number]) 2 F Date Time Provider Department 01/18/24 [...] for IUD removal [Z30.432] Order(s):REMOVE INTRAUTERINE DEVICE [[id number]] Order #: [id number] Prescriptions as of 01/18/2024 - cariprazine (VRAYLAR) [...] CNOVon 11-25-2023 CNOV Office Visit (OBGYWM ) -------- ALEJANDRA KIRAN Beryl ([id number]) 2 F Date Time Provider Department 11/25/23 8:00 AM MIKE CEBALLOS OBRAYSHAWN During your visit today, we recorded the following information about you: Blood pressure Weight 100/60 75.3 kg Mike Ceballos MD 11/25/2023 9:37 AM Signed Alejandra Christensen Magno is a 23 year old female who presents for problem visit wishing to discuss fertility related to her progestin IUD, Liletta and parental hx of IVF. Reports irregular menses related to anorexia 9731-8375 now resolved and IUD place 2020. Menarche ~ 13 yo and regular until weight loss to 106. Now 160, 5'8. Monthly/cyclic discharge on underwear.. HPI: as above and planning in ~ 12 mo, always feels cold OB History T0 L0 SAB0 IAB0 Ectopic0 Multiple0 Live Births0 Transmission Repairer History LMP: 01/15/2023 (Exact Date), IUD Age at Menarche: Age at First : Age at Menopause: Transmission Repairer History Comments: Sexual Activity: Yes; Male Contraception: [...] external genitalia normal, normal Bartholin's glands, urethra, [place]'s glands, no vulvar lesions, no cervical lesions, good vaginal support, physiologic discharge present, normal appearing perineal body and perianal region BIMANUAL: uterus normal size, shape and consistency, no adnexal masses, and non-tender NEURO: alert and oriented x3,exam grossly non-focal EXTREMITIES: normal ASSESSMENT AND PLAN: 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 Normal [facility] TSH SerPl-aCncon 11-25-2023 TSH Qn 0.989 m[IU]/L Normal 0.270-4.200 [facility] Comment on above: Order Comment: Speci men Type: BLOOD SPECIMENOrdering Facility: [facility] Address: [address] [place] [address] Result Comment: If t he patient is , TSH reference range varies by gestational period: First Trimester (weeks 9-12): 0.180-2.990 mIU/L Second Trimester: 0.110-3.980 mIU/L Third Trimester: 0.480-4.710 mIU/L Xander Walker et al. A Practical Approach for the Verifications and Determination of Site- and Trimester-Specific Reference Intervals for Thyroid Function tests in . Thyroid, 2019:29:3:412-420. Milind Bergman et al. 2017 Guidelines of the [place] Thyroid Association for the Diagnosis and Management of Thyroid Disease during and the . Thyroid, 2017:27:3:315-389. Performed By: #### 3 016-3 ####[facility] LABCLIA [id number] [facility] [id number] [place] [address] [place] Basic Metabolic Panelon 01-0 Anion gap [Moles/Vol] 8 Normal [facility] Comment on above: Performed By: #### B MP3, HGHCT, TROPI ####[facility] [place] [address] Calcium [Mass/Vol] 9.3 mg/dL Normal 8.4-10.4 [facility] Comment on above: Performed By: #### B MP3, HGHCT, TROPI ####[place] [address] [place] [address] Chloride [Moles/Vol] 99 mmol/L Normal 98-107 [facility] Comment on above: Performed By: #### B MP3, HGHCT, TROPI ####[place] [address] [place] [address] CO2 [Moles/Vol] 28 mmol/L Normal 22-30 [facility] Comment on above: Performed By: #### B MP3, HGHCT, TROPI ####[place] [address] [place] [address] Creatinine [Mass/Vol] 0.69 mg/dL Normal 0.52-1.25 [facility] Comment on above: Performed By: #### B MP3, HGHCT, TROPI ####[place] [address] [place] [address] GFR/1.73 sq M predicted among blacks MDRD (S/P/Bld) [Vol rate/Area] mL/min/{1.73_m2} Normal >60 [facility] Comment on above: Performed By: #### B MP3, HGHCT, TROPI ####[place] [address] [place] [address] GFR/1.73 sq M predicted among non-blacks MDRD (S/P/Bld) [Vol rate/Area] mL/min/{1.73_m2} Normal >60 [facility] Comment on above: Result Comment: KDIG O [...] Performed By: #### B MP3, HGHCT, TROPI ####[place] [address] [place] [address] Glucose [Mass/Vol] 104 mg/dL High 70-100 [facility] Comment on above: Performed By: #### Lore MP3, HGHCT, TROPI ####[place] [address] [place] [address] Potassium [Moles/Vol] 3.5 mmol/L Normal 3.5-5.1 [facility] Comment on above: Performed By: #### B MP3, HGHCT, TROPI ####[place] [address] [place] [address] Sodium [Moles/Vol] 135 mmol/L Normal 135-145 [facility] Comment on above: Performed By: #### B MP3, HGHCT, TROPI ####[place] [address] [place] [address] Urea nitrogen [Mass/Vol] 11 mg/dL Normal 7-20 [facility] Comment on above: Performed By: #### B MP3, HGHCT, TROPI ####[facility] [place] [address] Anion gap [Moles/Vol] 8 mmol/L [place] Calcium [Mass/Vol] 9.3 mg/dL 8.4 - 10. 4 mg/dL [place] Chloride [Moles/Vol] 99 mmol/L 98 - 107 mmol/L [place] CO2 [Moles/Vol] 28 mmol/L 22 - 30 mmol/L [place] Creatinine [Mass/Vol] 0.69 mg/dL 0.52 - 1.25 mg/dL [place] EGFR IF NonAfrican [place] >90.0 >60 mL/min [place] Comment on above: KDIGO guidelines pro [...] MDRD (S/P/Bld) [Vol rate/Area] mL/min/{1.73_m2} >60 mL/min [place] Glucose [Mass/Vol] 104 mg/dL High 70 - 100 mg/dL [place], [place] Potassium [Moles/Vol] 3.5 mmol/L 3.5 - 5.1 mmol/L [place] Sodium [Moles/Vol] 135 mmol/L 135 - 145 mmol/L [place] Urea nitrogen [Mass/Vol] 11 mg/dL 7 - 20 mg/dL [place] Test Performed by [facility], [address] [place] [address] [place], [place] COVID-19on 06-06-2020 SARS-CoV-2 Not Detected. Not Detected [place], [place] Comment on above: Not Detected. Method: Antigen detection by lateral flow. Results should not be the sole factor in determining infection status. Test Performed by [facility], [address] [place] [address] EKG 12 Leadon 06-06-2020 Bhupinder, [facility] Incoming Cardiology Results From [facility] - 06/06/2020 6:14 PM EST [facility] Test Date: 2020-06-05 Pat Name: Alejandra Cedeno Department: 08 Room: [facility] Gender: F Material Hauler: XAVIER : 2000 Requested By: CAROLINA LOMELI Order Number: [id number] Reading MD: Peewee Peterson Measurements Intervals [place] Rate: 57 P: 46 AK: 119 QRS: 57 QRSD: 92 T: 52 QT: 433 QTc: 422 Interpretive Statements Sinus bradycardia Compared to ECG 06/04/2020 22:31:38 Sinus rhythm no longer present Electronically Signed On 06-06-2020 18:13:50 EST by [facility] [employer] [facility] Test Date: 2020-06-05 Pat Name: Alejandra Desaisocorro Department: 08 Room: 2629 Gender: F Material Hauler: XAVIER : 2000 Requested By: CAROLINA LOMELI Order Number: [id number] Reading MD: Peewee Peterson Measurements Intervals [place] Rate: 57 P: 46 [place]: 119 QRS: 57 QRSD: 92 T: 52 QT: 433 QTc: 422 Interpretive Statements Sinus bradycardia Compared to ECG 06/04/2020 22:31:38 Sinus rhythm no longer present Electronically Signed On 06-06-2020 18:13:50 EST by [place], [place] Glucose,Bedsideon 06-06-2020 Glucose [Mass/Vol] 94 mg/dL Normal 70-100 [facility] Comment on above: Result Comment: Test performed by glucose meter. Results may be 10%-15% lower than serum/plasma values. (CLIA ID [id number]) Performed By: #### B GLU #### [address] [address] Hemoglobin AND Hematocriton 06-06-2020 Hematocrit (Bld) [Volume fraction] 34.6 % Low 35.0-47.0 [facility] Comment on above: Performed By: #### B MP3, HGHCT, TROPI ####[address] [address] Hemoglobin (Bld) [Mass/Vol] 11.5 g/dL Low 11.7-16.0 [facility] Comment on above: Performed By: #### B MP3, HGHCT, TROPI ####[address] [address] Hemoglobin and Hematocrit, B loodon 06-06-2020 Hematocrit (Bld) [Volume fraction] 34.6 % Low 35 - 47 % [place], [place] Hemoglobin (Bld) [Mass/Vol] 11.5 g/dL Low 11.7 - 16 g/dL [place], [place] Test Performed by [facility], [address] [place] [id number] [place] [address] Lipid Panelon 06-06-2020 Cholesterol in HDL [Mass/Vol] 43 mg/dL Normal 40-60 [place] Comment on above: Performed By: #### L IPD2 #### [address] [address] Cholesterol.total/ Cholesterol in HDL [Mass ratio] 4 Normal [facility] Comment on above: Result Comment: Ref Range: < 3 Low Risk for CHD 3-6 Mod Risk for CHD > 6 High Risk for CHD Performed By: #### L IPD2 #### [address] [address] Protein [Mass/Vol] 105 mg/dL Abnormal <100 [facility] Comment on above: Performed By: #### L IPD2 #### [address] [address] Cholesterol [Mass/Vol] 164 mg/dL Normal < 200 [place], [place] Comment on above: Performed By: #### L IPD2 #### [facility] [address], [place] Triglyceride [Mass/Vol] 80 mg/dL Normal <150 [place], [place] Comment on above: Performed By: #### L IPD2 #### [facility] [address] [place], [place] Lipid panel - fastingon Cholesterol in LDL [Mass/Vol] 105 mg/dL Abnormal <100 [place] Cholesterol.total/ Cholesterol in HDL [Mass ratio] 4 {ratio} [place] Comment on above: Ref Range: < 3 Low Risk for CHD 3-6 Mod Risk for CHD > 6 High Risk for CHD Test Performed by [facility], [address] [place] [address] [place], [place] Otheron 06-06-2020 Interpretation and review of laboratory results Abnormal [place] POCT troponinon 06-06-2020 Troponin I.cardiac [Mass/Vol] 0.00 ng/mL 0 - 0.08 ng/mL [place] Comment on above: . Test Performed by [facility], [address] [place] [address] [place] [id number] 06-06-2020 SARS-CoV-2 SARS-CoV-2 --> Statu s: F Not Detected. Method: Antigen detection by lateral flow. Results should not be the sole factor in determining infection status. Method: Antigen detection by lateral flow. Results should not be the sole factor in determining infection status. Normal [facility] [employer] [facility] Comment on above: Performed By: #### C OVID ####[facility] [employer] [address] [place], [place] Troponin, ISTATon 06-06-2020 Troponin I.cardiac [Mass/Vol] 0.00 ng/mL Normal 0.00-0.08 [facility] [employer] [facility] Comment on above: Result Comment: . Performed By: #### B MP3, HGHCT, TROPI ####[email or web address] [address] [place] [address] POCT Glucoseon 06-05-2020 Glucose [Mass/Vol] 94 mg/dL 70 - 100 mg/dL [place], [place] Comment on above: Test performed by ucose meter. Results may be 10%-15% lower than serum/plasma values. (CLIA ID [id number]) Test Performed by [facility], [address] [place] [address] [place] [id number] 06-05-2020 SARS-CoV-2 SARS-CoV-2 --> Statu s: F Not Detected. Expected Result: Not Detected _ Real-time, RT-PCR performed on the SigmaFlow System by the [facility]biology Service. Negative results do not preclude SARS-CoV-2 infection and should not be used as the sole basis for treatment or other patient management decisions. This assay was developed by [employer] and distributed under an Emergency Use Authorization (EUA) granted by the FDA for the qualitative detection of SARS-CoV-2 nucleic acid. Expected Result: Not Detected _ Real-time, RT-PCR performed on the [employer] System by the [facility]biology Service. Negative results do not preclude SARS-CoV-2 infection and should not be used as the sole basis for treatment or other patient management decisions. This assay was developed by [employer] and distributed under an Emergency Use Authorization (EUA) granted by the FDA for the qualitative detection of SARS-CoV-2 nucleic acid. Normal [facility] Comment on above: Performed By: #### C OVID ####[facility] [employer] [address] [place] [address] hCG Qual Pregon 06-05-2020 hCG Qual Preg Negative Normal [facility] Comment on above: Result Comment: Refe rence Range: NEGATIVE Effective 08/12/2019, the reference interval for the qualitative test has been updated. This test detects hCG at concentrations of 10 mIU/L or greater in serum. Performed By: #### A CET4, SAL33, ETOH4, QWAL, HEMDF, CMP3 #### [facility] [employer] [facility] [address] [place] [address] ACETAMINOPHEN LEVELon 2020 Acetaminophen [Mass/Vol] <10.0 10 - 30 ug/mL [place], [place] Acetaminophenon 06-04-2020 Acetaminophen [Mass/Vol] < 10.0 Normal 10.0-30.0 [facility] Comment on above: Performed By: #### A CET4, SAL33, ETOH4, QWAL, HEMDF, CMP3 #### [facility] [address], [place] Comp Metabolic Panelon 06-04 ALP [Catalytic activity/Vol] 87 U/L Normal 38-126 [facility] Comment on above: Performed By: #### A CET4, SAL33, ETOH4, QWAL, HEMDF, CMP3 #### [address] [place], [place] ALT [Catalytic activity/Vol] 11 U/L Normal 0-34 [facility] Comment on above: Result Comment: The ALT test is performed by an updated assay method. Please note that the reference intervals have been changed and are now sex specific. Performed By: #### A CET4, SAL33, ETOH4, QWAL, HEMDF, CMP3 #### [address] [place], [place] AST [Catalytic activity/Vol] 30 U/L Normal 15-46 [facility] Comment on above: Performed By: #### A CET4, SAL33, ETOH4, QWAL, HEMDF, CMP3 #### [address] [place], [place] Bilirubin [Mass/Vol] 0.4 mg/dL Normal 0.2-1.3 [facility] Comment on above: Performed By: #### A CET4, SAL33, ETOH4, QWAL, HEMDF, CMP3 #### [address] [place], [place] Calcium [Mass/Vol] 10.0 mg/dL Normal 8.4-10.4 [facility] Comment on above: Performed By: #### A CET4, SAL33, ETOH4, QWAL, HEMDF, CMP3 #### [address] [place], [place] Glucose [Mass/Vol] 99 mg/dL Normal 70-100 [facility] Comment on above: Performed By: #### A CET4, SAL33, ETOH4, QWAL, HEMDF, CMP3 #### [address] [address] [place], [place] Protein [Mass/Vol] 8.2 g/dL Normal 6.3-8.2 [facility] Comment on above: Performed By: #### A CET4, SAL33, ETOH4, QWAL, HEMDF, CMP3 #### [address] [place], [place] Urea nitrogen [Mass/Vol] 6 mg/dL Low 7-20 [facility] Comment on above: Performed By: #### A CET4, SAL33, ETOH4, QWAL, HEMDF, CMP3 #### [address] [place], [place] Anion gap [Moles/Vol] 11 Normal [facility] Comment on above: Performed By: #### A CET4, SAL33, ETOH4, QWAL, HEMDF, CMP3 #### [address] [place], [place] CO2 [Moles/Vol] 24 mmol/L Normal 22-30 [facility] Comment on above: Performed By: #### A CET4, SAL33, ETOH4, QWAL, HEMDF, CMP3 #### [address] [address] [place], [place] Creatinine [Mass/Vol] 0.62 mg/dL Normal 0.52-1.25 [facility] Comment on above: Performed By: #### A CET4, SAL33, ETOH4, QWAL, HEMDF, CMP3 #### [address] [place], [place] GFR/1.73 sq M predicted among blacks MDRD (S/P/Bld) [Vol rate/Area] mL/min/{1.73_m2} Normal >60 [facility] Comment on above: Performed By: #### A CET4, SAL33, ETOH4, QWAL, HEMDF, CMP3 #### [address] GFR/1.73 sq M predicted among non-blacks MDRD (S/P/Bld) [Vol rate/Area] mL/min/{1.73_m2} Normal >60 [facility] Comment on above: Result Comment: KDIG O [...] CET4, SAL33, ETOH4, QWAL, HEMDF, CMP3 #### [address] Potassium [Moles/Vol] 3.6 mmol/L Normal 3.5-5.1 [facility] Comment on above: Performed By: #### A CET4, SAL33, ETOH4, QWAL, HEMDF, CMP3 #### [address] Sodium [Moles/Vol] 138 mmol/L Normal 135-145 [facility] Comment on above: Performed By: #### A CET4, SAL33, ETOH4, QWAL, HEMDF, CMP3 #### [address] Albumin [Mass/Vol] 4.8 g/dL Normal 3.5-5.0 [facility] Comment on above: Performed By: #### A CET4, SAL33, ETOH4, QWAL, HEMDF, CMP3 #### [facility] [address] [place] [address] Chloride [Moles/Vol] 103 mmol/L Normal 98-107 [facility] Comment on above: Performed By: #### A CET4, SAL33, ETOH4, QWAL, HEMDF, CMP3 #### [facility] [address] [place] [address] Comprehensive Metabolic Pane roverto 06-04-2020 Albumin [Mass/Vol] 4.8 g/dL 3.5 - 5 g/dL [place], [place] ALP [Catalytic activity/Vol] 87 U/L 38 - 126 U/L [place] ALT [Catalytic activity/Vol] 11 U/L 0 - 34 U/L [place] Comment on above: The ALT test is perf ormed by an updated assay method. Please note that the reference intervals have been changed and are now sex specific. Anion gap [Moles/Vol] 11 mmol/L [place] AST [Catalytic activity/Vol] 30 U/L 15 - 46 U/L [place] Bilirubin Ql (U) 0.4 mg/dL 0.2 - 1.3 mg/dL [place] Calcium [Mass/Vol] 10.0 mg/dL 8.4 - 10. 4 mg/dL [place] Chloride [Moles/Vol] 103 mmol/L 98 - 107 mmol/L [place] CO2 [Moles/Vol] 24 mmol/L 22 - 30 mmol/L [place] Creatinine [Mass/Vol] 0.62 mg/dL 0.52 - 1.25 mg/dL [place] EGFR IF NonAfrican Tunisian >90.0 >60 mL/min [place] Comment on above: KDIGO guidelines pro [...] MDRD (S/P/Bld) [Vol rate/Area] mL/min/{1.73_m2} >60 mL/min [place], [place] Glucose [Mass/Vol] 99 mg/dL 70 - 100 mg/dL [place], [place] Interpretation and review of laboratory results Abnormal [place] Potassium [Moles/Vol] 3.6 mmol/L 3.5 - 5.1 mmol/L [place] Protein [Mass/Vol] 8.2 g/dL 6.3 - 8.2 g/dL [place] Sodium [Moles/Vol] 138 mmol/L 135 - 145 mmol/L [place] Urea nitrogen [Mass/Vol] 6 mg/dL Low 7 - 20 mg/dL [place] Drugs of Abuseon 06-04-2020 Cocaine, Ur Negative Normal [facility] Comment on above: Performed By: #### D RGA4 ####[address] [place] [address] Opiates, Ur Negative Normal [facility] Comment on above: Performed By: #### D RGA4 ####[address] [place] [address] Phencyclidine (PCP), Ur Negative Normal [facility] Comment on above: Result Comment: The expected [...] separate order. Performed By: #### D RGA4 ####[facility] [employer] [address] [place] [place] [address] Methadone, Ur Negative Normal [facility] Comment on above: Performed By: #### D RGA4 ####[facility] [employer] [address] [place] [address] Amphetamines, Ur Negative Normal [facility] Comment on above: Performed By: #### D RGA4 ####[facility] [employer] [address] [place] [address] Barbiturates, Ur Negative Normal [facility] Comment on above: Performed By: #### D RGA4 ####[facility] [address] [place] [address] Benzodiazepines, Ur Negative Normal [facility] Comment on above: Performed By: #### D RGA4 ####[facility] [address] [place] [address] Oxycodone/Oxymorph ine,Ur Negative Normal [facility] Comment on above: Performed By: #### D RGA4 ####[facility] [address] [place] [address] ED Provider Noteon ED Provider Note Emergency [...] is scared she will hurt herself further. [place] (Location/Symptom, Timing/Onset, Context/Setting, Quality, Duration, Modifying Factors, [...] otherwise acutely negative except as in the [place]. Past History History reviewed. No pertinent past [...] on phone: None Gets together: None Attends quaker service: None Active member of club or [...] Rate Resp SpO2 Height Weight - Scale 06/04/20201606/04/20201606/04/20201606/04/20201606/04/20201606/04/202016 01/04/21 2024 01/04/21 2024 (!) 144/101 99.4 ?F (37.4 ?C) Temporal [...] eGFR >90.0 >60 mL/min EGFR IF NonAfrican Tunisian >90.0 >60 mL/min Calcium 10.0 8.4 - [...] # 1.6 1.0 - 4.3 10*3/uL Absolute [place] # 0.5 0.0 - 0.8 10*3/uL Absolute [...] inpatient psychiatric admission, patient was admitted to [facility] in stable condition. Patient is medically clear for psychiatric admission. ED Medication Orders (From admission, onward) Start Ordered Status Ordering Provider 06/04/20 2245 06/04/202235 Qrdrius-Claaiz-Jfjni Pertussis (BOOSTRIX) injection 0.5 mL ONCE Last [...] the dictating provider for clarification. SELINA Nieves [employer] SELINA Nieves 06/05/20 0007 [facility] ED Provider Note Emergency Department Encounter WALDO [...] Rate and rhythm: sinus rhythm, 66 bpm [place]: within normal range Intervals: [place] 122, QRS [...] occasionally words are mis-transcribed.) Giles Rose MD [employer] Giles Rose MD 06/05/20 0343 Normal [facility] Ethanolon 06-04-2020 Ethanol Lvl <0.010 0 - 0.01 g/dL [place] Comment on above: NOTE: This result is for medical treatment only. Analysis performed using non-forensic procedures. Ethanol Serum/Plasmaon 06-04 Ethanol-Serum/Plas ma < 0.010 Normal 0.000-0.010 [facility] Comment on above: Result Comment: NOTE : This result is for medical treatment only. Analysis performed using non-forensic procedures. Performed By: #### A CET4, SAL33, ETOH4, QWAL, HEMDF, CMP3 #### [address] [place] [address] HCG Qualitative, Serumon hCG Qual Negative m[IU]/mL [place], [place] Comment on above: Reference Range: NEG ATIVE Effective 08/12/2019, the reference interval for the qualitative test has been updated. This test detects hCG at concentrations of 10 mIU/L or greater in serum. Test Performed by [address] [address] [place] Hemogram (CBC) w/Auto Diffon 06-04-2020 Absolute Baso # 0.0 10*3/uL 0 - 0.2 10*3/uL [place] Absolute Neut # 4.6 10*3/uL 1.8 - 7 10*3/uL [place] Basophils/100 WBC (Bld) 0.7 % 0 - 2 % [place] Eosinophils (Bld) [#/Vol] 0.0 10*3/uL 0 - 0.5 10*3/uL [place] Eosinophils/100 WBC (Bld) 0.5 % Low 1 - 6 % [place] Erythrocyte distribution width (RBC) [Ratio] 18.1 % High 11.5 - 14.5 % [place] Granulocytes/100 WBC (Bld) 68.4 % 40 - 80 % [place] Hematocrit (Bld) [Volume fraction] 40.0 % 35 - 47 % [place] Hemoglobin (Bld) [Mass/Vol] 12.9 g/dL 11.7 - 16 g/dL [place] Interpretation and review of laboratory results Abnormal [place] Lymphocytes (Bld) [#/Vol] 1.6 10*3/uL 1 - 4.3 10*3/uL [place] Lymphocytes/100 WBC (Bld) 23.2 % 20 - 40 % [place] MCH (RBC) [Entitic mass] 25.9 pg Low 26 - 34 pg [place] MCHC (RBC) [Mass/Vol] 32.2 % 32 - 36 % [place] MCV (RBC) [Entitic vol] 80.4 fL 79 - 98 fL [place] Monocytes (Bld) [#/Vol] 0.5 10*3/uL 0 - 0.8 10*3/uL [place] Monocytes/100 WBC (Bld) 7.2 % 2 - 10 % [place] Platelet mean volume (Bld) [Entitic vol] 8.7 fL 7.4 - 10.4 fL [place] Platelets (Bld) [#/Vol] 326 10*3/uL 140 - 440 10*3/uL [place] RBC (Bld) [#/Vol] 4.97 10*6/uL 3.8 - 5.2 10*6/uL [place] WBC (Bld) [#/Vol] 6.8 10*3/uL 3.6 - 10.7 10*3/uL [place] Test Performed by [facility], [address] [place] [address] [place] Hemogram w/ Autodiffon 06-04 Abs Baso Cnt 0.0 10*3/uL Normal 0.0-0.2 [facility] Comment on above: Performed By: #### A CET4, SAL33, ETOH4, QWAL, HEMDF, CMP3 #### [address] [address] Abs Neutrophile Cnt 4.6 10*3/uL Normal 1.8-7.0 [facility] Comment on above: Performed By: #### A CET4, SAL33, ETOH4, QWAL, HEMDF, CMP3 #### [address] [place], [place] Basophils/100 WBC (Bld) 0.7 % Normal 0.0-2.0 [facility] Comment on above: Performed By: #### A CET4, SAL33, ETOH4, QWAL, HEMDF, CMP3 #### [address] [place], [place] Eosinophils (Bld) [#/Vol] 0.0 10*3/uL Normal 0.0-0.5 [facility] Comment on above: Performed By: #### A CET4, SAL33, ETOH4, QWAL, HEMDF, CMP3 #### [address] [place], [place] Eosinophils/100 WBC (Bld) 0.5 % Low 1.0-6.0 [facility] Comment on above: Performed By: #### A CET4, SAL33, ETOH4, QWAL, HEMDF, CMP3 #### [address] Erythrocyte distribution width (RBC) [Ratio] 18.1 % High 11.5-14.5 [facility] Comment on above: Performed By: #### A CET4, SAL33, ETOH4, QWAL, HEMDF, CMP3 #### [address] [place] Granulocytes/100 WBC (Bld) 68.4 % Normal 40.0-80.0 [facility] Comment on above: Performed By: #### A CET4, SAL33, ETOH4, QWAL, HEMDF, CMP3 #### [address] Hematocrit (Bld) [Volume fraction] 40.0 % Normal 35.0-47.0 [facility] Comment on above: Performed By: #### A CET4, SAL33, ETOH4, QWAL, HEMDF, CMP3 #### [address] [address] [place], [place] Hemoglobin (Bld) [Mass/Vol] 12.9 g/dL Normal 11.7-16.0 [facility] Comment on above: Performed By: #### A CET4, SAL33, ETOH4, QWAL, HEMDF, CMP3 #### [address] Lymphocytes (Bld) [#/Vol] 1.6 10*3/uL Normal 1.0-4.3 [facility] Comment on above: Performed By: #### A CET4, SAL33, ETOH4, QWAL, HEMDF, CMP3 #### [address] Lymphocytes/100 WBC (Bld) 23.2 % Normal 20.0-40.0 [facility] Comment on above: Performed By: #### A CET4, SAL33, ETOH4, QWAL, HEMDF, CMP3 #### [address] MCH (RBC) [Entitic mass] 25.9 pg Low 26.0-34.0 [facility] Comment on above: Performed By: #### A CET4, SAL33, ETOH4, QWAL, HEMDF, CMP3 #### [address] MCHC (RBC) [Mass/Vol] 32.2 % Normal 32.0-36.0 [facility] Comment on above: Performed By: #### A CET4, SAL33, ETOH4, QWAL, HEMDF, CMP3 #### [address] MCV (RBC) [Entitic vol] 80.4 fL Normal 79.0-98.0 [facility] Comment on above: Performed By: #### A CET4, SAL33, ETOH4, QWAL, HEMDF, CMP3 #### [address] Monocytes (Bld) [#/Vol] 0.5 10*3/uL Normal 0.0-0.8 [facility] Comment on above: Performed By: #### A CET4, SAL33, ETOH4, QWAL, HEMDF, CMP3 #### [address] [place], [place] Monocytes/100 WBC (Bld) 7.2 % Normal 2.0-10.0 [facility] Comment on above: Performed By: #### A CET4, SAL33, ETOH4, QWAL, HEMDF, CMP3 #### [address] [place], [place] Platelet mean volume (Bld) [Entitic vol] 8.7 fL Normal 7.4-10.4 [facility] Comment on above: Performed By: #### A CET4, SAL33, ETOH4, QWAL, HEMDF, CMP3 #### [address] [place], [place] Platelets (Bld) [#/Vol] 326 10*3/uL Normal 140-440 [facility] Comment on above: Performed By: #### A CET4, SAL33, ETOH4, QWAL, HEMDF, CMP3 #### [address] [place], [place] RBC (Bld) [#/Vol] 4.97 10*6/uL Normal 3.80-5.20 [facility] Comment on above: Performed By: #### A CET4, SAL33, ETOH4, QWAL, HEMDF, CMP3 #### [address] [place], [place] WBC (Bld) [#/Vol] 6.8 10*3/uL Normal 3.6-10.7 [facility] Comment on above: Performed By: #### A CET4, SAL33, ETOH4, QWAL, HEMDF, CMP3 #### [address] Otheron 06-04-2020 Test Performed by [id number] [place] [address] [place], [place] Salicylateon 06-04-2020 Salicylate Lvl <1.0 0 - 20 mg/dL [place], [place] Test Performed by [address] [address] [place], [place] Salicylateson 06-04-2020 Salicylates < 1.0 Normal 0.0-20.0 [facility] Comment on above: Performed By: #### A CET4, SAL33, ETOH4, QWAL, HEMDF, CMP3 #### [facility] [address] [place] [address] Urine Drug Screenon 06-04-19 21 Amphetamines, urine Negative [facility] [place] Barbiturates, Ur Negative [facility] [place] Benzodiazepine Ur Qual Negative [facility] [place] Cocaine Metabolites, Ur Negative [facility] [place] Methadone, Urine Negative [facility] [place] Opiates, Urine Negative [facility] [place] Oxycodone Screen, Ur Negative [facility] [place] PCP, Urine Negative [place], [place] Comment on above: The expected value [...] confirmation under separate order. Test Performed by [facility], [address] [place] [address] [place], [place] GI FLUORO CHEST SNIFF TESTon 03-19-2020 GI [...] right hemidiaphragm. IMPRESSION: 1. Normal diaphragmatic excursion. 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[employer] Transcribe Date/Time: Mar 19 2020 9:24A Dictated by : LISA KRAUS MD This examination was interpreted and the report reviewed and electronically signed by: LISA KRAUS MD on Mar 19 2020 9:27AM EST [id number] [facility] Vital Signs Date Time Vital Sign Value Performing Clinician Malia martinez 08-11-2024 08:39-0400 Body height 172.7 cm Christianne Carranza [employer]CNM Work Phone: [facility] 08-11-2024 08:39-0400 Body mass index (BMI) [Ratio] 27.37 kg/m2 Christianne Carranza [employer]CNM Work Phone: [facility] 08-11-2024 08:39-0400 Body weight 81.65 kg Christianne Carranza [employer]CNM Work Phone: [facility] 08-11-2024 08:39-0400 Diastolic blood pressure 72 mm[Hg] Christianne Carranza [employer]DER[employer]CNM Work Phone: [facility] 08-11-2024 08:39-0400 Systolic blood pressure 110 mm[Hg] Christianne Carranza [employer]SP[employer]DER[employer]CNM Work Phone: [facility] 06-29-2024 09:06-0500 Body height 172.7 cm Mike Ceballos MD Work Phone: [facility] 06-29-2024 09:06-0500 Body mass index (BMI) [Ratio] 27.06 kg/m2 Mike Ceballos MD Work Phone: [facility] 06-29-2024 09:06-0500 Body weight 80.74 kg Mike Ceballos MD Work Phone: [facility] 06-29-2024 09:06-0500 Diastolic blood pressure 64 mm[Hg] Mike Ceballos MD Work Phone: [facility] 06-29-2024 09:06-0500 Systolic blood pressure 100 mm[Hg] Mike Ceballos MD Work Phone: [facility] 05-11-2024 10:17-0500 Body mass index (BMI) [Ratio] 26.51 kg/m2 Mike Ceballos MD Work Phone: [facility] 05-11-2024 10:17-0500 Body weight 76.2 kg Mike Ceballos MD Work Phone: [facility] 05-11-2024 10:17-0500 Diastolic blood pressure 74 mm[Hg] Mike Ceballos MD Work Phone: [facility] 05-11-2024 10:17-0500 Systolic blood pressure 106 mm[Hg] Mike Ceballos MD Work Phone: [facility] 11-25-2023 08:05-0400 Body mass index (BMI) [Ratio] 26.19 kg/m2 Mike Ceballos MD Work Phone: [facility] 11-25-2023 08:05-0400 Body weight 75.3 kg Mike Ceballos MD Work Phone: [facility] 11-25-2023 08:05-0400 Diastolic blood pressure 60 mm[Hg] Mike Ceballos MD Work Phone: [facility] 11-25-2023 08:05-0400 Systolic blood pressure 100 mm[Hg] Mike Ceballos MD Work Phone: [facility] 02-26-2023 14:00-0400 Body height 170.2 cm Kiki [place] [employer] Work Phone: [facility] 02-26-2023 14:00-0400 Body weight 73.94 kg Kiki [place] [employer]MANAGER [employer] Work Phone: [facility] 02-26-2023 14:00-0400 Diastolic blood pressure 64 mm[Hg] Kiki Milan [employer]EDSPREAD [employer]DER.MANAGER [employer] Work Phone: [facility] 02-26-2023 14:00-0400 Systolic blood pressure 112 mm[Hg] Kiki Milan [employer]EDSP[employer]DER.MANAGER [employer] Work Phone: [facility] 06-11-2020 05:45-0500 Body Temperature 97.7 [degF] [facility] [employer] [facility], [place] 06-11-2020 05:45-0500 BP Diastolic 74 mm[Hg] [place] , [place] 06-11-2020 05:45-0500 BP Systolic 117 mm[Hg] [place] , [place] 06-11-2020 05:45-0500 Pulse (Heart Rate) 67 /min [place], [place] 06-11-2020 05:45-0500 Pulse Oximetry 98 % [place], [place] 06-11-2020 05:45-0500 Respiratory Rate 16 /min [facility] [employer] [facility] [place] 06-04-2020 20:24-0500 BMI (Body Mass Index) 21.79 kg/m2 [facility] [place], [place] 06-04-2020 20:24-0500 Body weight 61.24 kg [place] , [place] 06-04-2020 20:24-0500 Height 167.6 cm [place], [place] Encounters Encounter Date Encounter Type Care Provider Facility Start: 03-30-2025 End: 03-30-2025 ambulatory Sania Fernandez [facility] Start: 03-23-2025 End: 03-23-2025 ambulatory [facility] Facility:[facility] Start: 03-22-2025 End: 03-23-2025 ambulatory [facility] Facility:[facility] Start: 03-16-2025 End: 03-16-2025 ambulatory [facility] Start: 03-15-2025 End: 03-16-2025 ambulatory [facility] Facility:[facility] Start: 03-10-2025 End: 03-13-2025 Evaluation and management of inpatient [facility] Facility:[facility] Start: 03-10-2025 End: 03-10-2025 ambulatory Sundeep Sher [facility] Start: 03-10-2025 End: 03-10-2025 ambulatory Flory Bell Dilshadshelley Facility:[facility] Start: 03-09-2025 End: 03-09-2025 ambulatory SUNDEEP MCLEANUTZMAN [facility] Start: 03-07-2025 End: 03-07-2025 ambulatory Sundeep Sher [facility] Start: 03-07-2025 End: 03-07-2025 ambulatory Sundeep Sher [facility] Start: 03-05-2025 End: 03-05-2025 Emergency department patient visit Sundeep Sher Facility:[facility] Start: 03-05-2025 ambulatory Sundeep Sher [facility]: [facility] Start: 03-04-2025 End: 03-04-2025 ambulatory Sundeep Sher Facility:[facility] Start: 03-01-2025 End: 03-03-2025 ambulatory Sundeep Sher Facility:[facility] Start: 03-01-2025 End: 03-01-2025 ambulatory Sundeep Sher [facility] Start: 02-26-2025 ambulatory Sundeep Sher [facility]: [facility] Start: 02-25-2025 End: 02-25-2025 ambulatory Sundepe McleanChristos Facility:[facility] Start: 02-23-2025 ambulatory Tiera Finley [facility]ity:[facility] Start: 02-22-2025 End: 02-22-2025 ambulatory Sundeep Sher [facility] Start: 02-22-2025 End: 02-22-2025 ambulatory Sundeep Sher Facility:[facility] Start: 02-15-2025 End: 02-15-2025 ambulatory Tiera Mcfarland Facility:[facility] Start: 02-10-2025 End: 02-10-2025 ambulatory NAVDEEP JEFFREY [facility] Start: 02-09-2025 End: 02-09-2025 ambulatory Sundeep Sher [facility] Start: 02-07-2025 End: 02-07-2025 ambulatory NAVDEEP JEFFREY [facility] Start: 02-01-2025 End: 02-01-2025 ambulatory Navdeep Jeffrey Facility:[facility] Start: 01-24-2025 End: 01-24-2025 ambulatory Sundeep Sher [facility] Start: 01-24-2025 End: 01-24-2025 ambulatory Tieradonell Riosjamarisaranya Facility:[facility] Start: 01-06-2025 End: 01-06-2025 ambulatory Sundeep Sher [facility] Start: 12-29-2024 End: 12-29-2024 ambulatory Tieradonell Riosmike Facility:[facility] Start: 12-26-2024 End: 12-26-2024 ambulatory Sundeep McleanChristos [facility] Start: 12-26-2024 End: 12-26-2024 ambulatory Tieradonell Riosjamarisaranya Facility:[facility] Start: 12-20-2024 End: 12-20-2024 [facility] Start: 12-07-2024 End: 12-07-2024 ambulatory Sundeep Christos [facility] Start: 12-06-2024 End: 12-06-2024 Emergency department patient visit Markie Quiros Facility:[facility] Start: 12-01-2024 End: 12-01-2024 ambulatory NAVDEEP Moore [facility] Start: 11-17-2024 End: 11-17-2024 ambulatory NAVDEEP Moore [facility] Start: 11-09-2024 End: 11-09-2024 ambulatory Sundeep Sher [facility] Start: 11-04-2024 End: 11-04-2024 ambulatory Angela Vigil [facility] Start: 11-04-2024 End: 11-04-2024 ambulatory Angela Vigil Facility:[facility] Start: 10-19-2024 End: 10-19-2024 ambulatory Tiera Mcfarland Facility:[facility] Start: 10-13-2024 End: 10-13-2024 ambulatory Navdeep Jeffrey [facility] Start: 10-13-2024 End: 10-13-2024 ambulatory Navdeep Jeffrey Facility:[facility] Start: 10-05-2024 End: 10-05-2024 ambulatory Tiera Mcfarland Facility:[facility] Start: 10-03-2024 End: 10-03-2024 ambulatory NAVDEEP Moore [facility] Start: 09-22-2024 End: 09-22-2024 ambulatory NAVDEEP JEFFREY [facility] Start: 09-19-2024 End: 09-19-2024 ambulatory Tieradonell Mcfarland Facility:[facility] Start: 09-14-2024 End: 09-14-2024 ambulatory Tiera Mcfarland Facility:[facility] Start: 08-31-2024 End: 08-31-2024 ambulatory Bertha Wood Facility:[facility] Start: 08-24-2024 End: 08-24-2024 ambulatory Bertha S Augustaconrado [facility] Start: 08-19-2024 End: 08-19-2024 ambulatory Navdeep Jeffrey Facility:[facility] Start: 08-19-2024 End: 08-19-2024 ambulatory Navdeep Jeffrey Facility:[facility] Start: 08-16-2024 End: 10-17-2024 Follow-up encounter Rosario Escalona MD Work Phone: OB/Gynecology Start: 08-15-2024 End: 08-15-2024 ambulatory CHRISTIANNE CARRANZA Facility:[facility] Start: 08-14-2024 End: 10-14-2024 Follow-up encounter Rosario Escalona MD Work Phone: OB/Gynecology Start: 08-13-2024 End: 08-13-2024 ambulatory CHRISTIANNE CARRANZA Facility:[facility] Start: 08-12-2024 End: 10-12-2024 Follow-up encounter Christianne Carranza [employer]CN[employer] Work Phone: OB/Gynecology Start: 08-12-2024 End: 08-12-2024 Telephone encounter Christianne Carranza [employer]CNM Work Phone: OB/Gynecology Comment on above: Transferred Care Start: 08-12-2024 ambulatory Minoo Arredondo Facility :[facility] Start: 08-11-2024 End: 08-11-2024 ambulatory [facility] Start: 08-11-2024 End: 08-11-2024 Patient encounter procedure Christianne Carranza [employer]CNM Work Phone: OB/Gynecology Comment on above: with uncer tain dates, antepartum (Primary Dx); 6 weeks gestation of ; Threatened miscarriage; Bipolar 2 disorder (HCC); Anorexia nervosa; Anxiety; Depression, unspecified depression type; Cholinergic urticaria; Encounter for supervision of high risk in first trimester, antepartum Start: 08-09-2024 End: 08-24-2024 Telephone encounter Christianne Carranza MARLENE Work Phone: OB/Gynecology Comment on above: Appointment Start: 06-29-2024 End: 06-29-2024 ambulatory MIKE CEBALLOS Facility:[facility] Start: 06-29-2024 End: 06-29-2024 Patient encounter procedure Mike Ceballos MD Work Phone: OB/Gynecology Comment on above: Encounter for gyneco logical examination (general) (routine) without abnormal findings (Primary Dx); Attempting to conceive Start: 06-29-2024 End: 06-29-2024 Patient encounter status Mike Ceballos MD Work Phone: [facility] Start: 05-11-2024 End: 05-11-2024 ambulatory MIKE CEBALLOS Facility:[facility] Start: 05-11-2024 End: 05-11-2024 Patient encounter procedure Mike Ceballos MD Work Phone: OB/Gynecology Comment on above: Encounter for IUD re moval (Primary Dx) Start: 05-05-2024 End: 05-05-2024 ambulatory Mike Ceballos MD Work Phone: OB/Gynecology Comment on above: Bleeding irregularly Start: 01-18-2024 End: 01-18-2024 Telephone encounter Mike Ceballos MD Work Phone: OB/Gynecology Comment on above: Orders Start: 11-25-2023 End: 11-25-2023 ambulatory MIKE CEBALLOS Facility:[facility] Start: 11-25-2023 End: 11-25-2023 Patient encounter procedure Mike Ceballos MD Work Phone: OB/Gynecology Comment on above: Irregular menses (Pr imary Dx); Intolerance to cold Start: 02-26-2023 End: 02-26-2023 Patient encounter procedure Kiki Yates [employer]DER[employer]MANAGER [employer]OURCE Work Phone: OB/Gynecology Comment on above: Secondary amenorrhea (Primary Dx) Start: 06-04-2020 Patient encounter procedure [facility] [place], [place] Procedures Date Procedure Procedure Detail Performing Clinician Start: 03-11-2025 Antibody screen Sundeep Espinoza Comment on above: Order Comment: Labor Performed By: #### B [id number], L100.0100, BTS ####[facility] [id number] [place], [place], [id number] Start: 08-11-2024 Antibody screen MIKE CEBALLOS Comment on above: Order Comment: Speci men Type: BLOOD SPECIMENOrdering Facility: [facility] Address: [address] [place] [address] Performed By: #### T SPN ####[facility] BLOOD BANKCLIA [id number] [place] [address] [place] Start: 08-11-2024 Us uterus l imited 1/> fetuses Christianne Carranza [employer] F[employer]DER[employer]CNM Work Phone: Start: 06-29-2024 UA DIP,URINE HCG (POC) Mike Ceballos MD Work Phone: Start: 05-11-2024 UA DIP,URINE HCG (POC) Mike Ceballos MD Work Phone: Start: 06-06-2020 COVID-19 Henri Wilson Work Phone: Start: 06-06-2020 Assay of troponin quantitative Carolina Duddella Work Phone: Start: 06-06-2020 Basic metabolic pane l calcium total Carolina Duddella Work Phone: Start: 06-06-2020 Blood count hemoglobin Carolina Duddella Work Phone: Start: 06-06-2020 Lipid panel Danielle Borja Work Phone: Start: 06-05-2020 Ecg routine ecg w/le ast 12 lds w/i&r Carolinaheladio Lomeli Work Phone: Start: 06-05-2020 Gluc bld gluc mntr d ev cleared fda spec home use Gonzalo De Leon Work Phone: Start: 06-04-2020 Ecg routine ecg w/le ast 12 lds w/i&r Giles Rose Work Phone: Start: 06-04-2020 Assay of acetaminophen Sharon Matthew Work Phone: Start: 06-04-2020 Assay of ethanol Flynnant lizbeth Castro Work Phone: Start: 06-04-2020 Assay of salicylate Flynn villa Matthew Work Phone: Start: 06-04-2020 Blood count complete auto&auto difrntl wbc Sharon Matthew Work Phone: Start: 06-04-2020 Comprehensive metabo lic panel Sharon Matthew Work Phone: Start: 06-04-2020 COVID-19 Sharon bell Work Phone: Start: 06-04-2020 Drug screen class list a Sharon Matthew Work Phone: Start: 06-04-2020 Gonadotropin chorion ic qualitative Sharondaisy Castro Work Phone: Plan of Treatment Date Care Activity Detail Author Start: 06-04-2030 DTaP/Tdap/Td vaccine (5 - Td) DTaP/Tdap/Td vaccine (5 - Td) [place] Start: 06-04-2030 Urine microalbumin profile DTaP,Tdap,Td Vaccine (8 - Td or Tdap) [facility] Start: 06-08-2026 Screening for malign ant neoplasm of cervix Cervical Cancer Screening [facility] Start: 08-11-2025 GC (Gonorrhea) Scree james (18-24) GC (Gonorrhea) Screening (18-24) [facility] Start: 08-11-2025 Screening for Chlamy jennifer trachomatis Chlamydia Screening (18) [facility] Start: 07-03-2025 End: 07-03-2025 Patient encounter procedure 07/03/2025 9:10 AM EST Office Visit OB/Gynecology [address] [place] [address] Mike Ceballos MD [address] [place] [address] Annual OB/Gynecology Comment on above: Annual Start: 02-09-2025 RSV Vaccine (1 - Ris k 1-dose series) RSV Vaccine (1 - Risk 1-dose series) [facility] Start: 01-30-2025 Influenza vaccination Influenz a Vaccine (Season Ended) [facility] Start: 11-17-2024 End: 11-17-2024 Patient encounter procedure 11/17/2024 9:00 AM EDT Routine Office Visit [facility] [address] [place] [address] Anatomy/OB [facility] Comment on above: Anatomy/OB Start: 09-08-2024 End: 09-08-2024 Patient encounter procedure 09/08/2024 10:20 AM EDT Routine Office Visit OB/Gynecology [address] [place] [address] Dell Alonso MD [address] [place] [address] 1st OB - LMP 06/30/2024 OB/Gynecology Comment on above: 1st OB - LMP 06/30/19 25 Start: 08-25-2024 End: 08-25-2024 Patient encounter procedure 08/25/2024 8:30 AM EDT Routine Office Visit OB/Gynecology [address] [place] [address] Dating OB/Gynecology Comment on above: Dating Start: 08-11-2024 End: 11-10-2024 ANEMIA REFLEX PANEL [facility] Work Phone: Comment on above: Expected: 08/11/2024 , Expires: 11/10/2024 Start: 08-11-2024 End: 11-10-2024 Hepatitis C virus Ab [Presence] in Serum [facility] Comment on above: Expected: 08/11/2024 , Expires: 11/10/2024 Start: 08-11-2024 End: 08-11-2025 OBSTETRIC ULTRASOUND WHI OBSTETRIC ULTRASOUND WHI Anc Imaging Routine with uncertain dates, antepartum Expected: 08/11/2024, Expires: 08/11/2025 [facility] Comment on above: Expected: 08/11/2024 , Expires: 08/11/2025 Start: 08-11-2024 End: 11-10-2024 RUBELLA IGG ANTIBODY [facility] Comment on above: Expected: 08/11/2024 , Expires: 11/10/2024 Start: 06-29-2024 End: 06-29-2024 Patient encounter procedure 06/29/2024 9:10 AM EST Office Visit OB/Gynecology [address] [place] [address] Mike Ceballos MD [address] [place] [address] Annual OB/Gynecology Comment on above: Annual Start: 06-08-2024 GC (Gonorrhea) Scree james (18-24) GC (Gonorrhea) Screening (18-24) [facility] Start: 06-08-2024 Screening for Chlamy jennifer trachomatis Chlamydia Screening () [facility] Start: 05-11-2024 End: 05-11-2024 Patient encounter procedure 05/11/2024 10:30 AM EST Office Visit OB/Gynecology [address] [place] [address] Mike Ceballos MD [address] [place], [place] [id number] IUD REMOVAL OB/Gynecology Comment on above: IUD REMOVAL Start: 02-24-2024 End: 02-24-2024 Patient encounter procedure 02/24/2024 8:00 AM EDT Office Visit OB/Gynecology [address] [place], [place] [id number] Mike Ceballos MD [address] [place] [address] IUD Removal OB/Gynecology Comment on above: IUD Removal Start: 01-31-2024 Covid-19 Vaccine ( season) Covid-19 Vaccine ( season) [facility] Start: 01-31-2024 Influenza vaccination [facility] Start: 11-25-2023 End: 02-24-2024 Thyrotropin [Units/volume] in Serum or Plasma [facility] Work Phone: Comment on above: Expected: 11/25/2023 , Expires: 02/24/2024 Start: 01-30-2023 Covid-19 Vaccine ( season) Covid-19 Vaccine ( season) [facility] Start: 01-30-2023 Influenza vaccination Influenza Vacc ine (#1) [facility] Start: 2022 Pap Testing Pap Testing [facility] Start: 06-01-2022 Depression Assessment Depression Ass essment [facility] Start: 2020 Urine microalbumin profile DTaP,Tdap,Td Vaccine (1 - Tdap) [facility] Start: 01-31-2020 Influenza vaccination Flu vaccine (# 1) [place], [place] Start: 08-21-2019 Chlamydia Screening (18-24) Chlamydia Screening (18-24) [facility] Start: 08-21-2019 GC (Gonorrhea) Scree james (18-24) GC (Gonorrhea) Screening (18-24) [facility] Start: 08-21-2019 Hepatitis C Screening Hepatitis C [facility] Start: 08-21-2019 Hepatitis C screening Hepatitis C [facility] Start: 08-21-2019 HIV Screening HIV Screening [facility] Start: 2017 Meningococcal B Vacc ine (1 of 2 - Standard) Meningococcal B Vaccine (1 of 2 - Standard) [facility] Start: 2017 Meningococcal B Vacc ine: Consider Based On Risk (1 of 2 - Patient Seeks Protection) Meningococcal B Vaccine: Consider Based On Risk (1 of 2 - Patient Seeks Protection) [facility] Start: 2017 Screening for Chlamy jennifer trachomatis Chlamydia screen [place], [place] Start: 2016 HIV screening HIV screen Stephanie Abel [place], [place] Start: 08-21-2015 Peds To Adult Transi tion Annual Assessment Peds To Adult Transition Annual Assessment [facility] Start: 2013 Peds To Adult Transi tion Initial Discussion Peds To Adult Transition Initial Discussion [facility] Start: 2010 HPV Vaccine (1 - 2-d ose series) HPV Vaccine (1 - 2-dose series) [facility] Start: 05-23-2002 Hepatitis B vaccine (3 of 3 - 3-dose primary series) Hepatitis B vaccine (3 of 3 - 3-dose primary series) [place] Start: 02-20-2002 Covid-19 Vaccine (#1) Covid-19 Vacci ne (#1) [facility] Start: 2001 Hepatitis B Vaccine (1 of 3 - 3-dose series) Hepatitis B Vaccine (1 of 3 - 3-dose series) [facility] Start: 2001 Hepatitis C screening Hepatitis C sc reen [place], [place] Bacteria identified in Urine by Culture BACTERIAL CULTURE, URINE Microbiology Routine with uncertain dates, antepartum 08/11/2024 9:34 AM EDT [facility] Chlamydia trachomatis+Neisseria gonorrhoeae DNA [Presence] in Unspecified specimen by SANTY with probe detection GONORRHEA/CHLAMYDIA NAAT Lab Routine with uncertain dates, antepartum 08/11/2024 9:34 AM EDT [facility] End: 09-09-2024 Choriogonadotropin.beta subunit [Units/volume] in Serum or Plasma HCG QUANTITATIVE Lab Routine with uncertain dates, antepartum 2x per week for 8 Occurrences starting 08/11/2024 until 09/09/2024, 1 completed [facility] Comment on above: 2x per week for 8 Oc currences starting 08/11/2024 until 09/09/2024, 1 completed Removal intrauterine device iud REMOVE INTRAUTERINE DEVICE Procedures Routine Encounter for IUD removal Ordered: 01/18/2024 [facility] Work Phone: Comment on above: Ordered: 01/18/2024 Removal intrauterine device iud REMOVE INTRAUTERINE DEVICE Procedures Routine Encounter for IUD removal Ordered: 05/11/2024 [facility] Work Phone: Comment on above: Ordered: 05/11/2024 TRICHOMONAS VAGINALI S NAAT TRICHOMONAS VAGINALIS NAAT Lab Routine with uncertain dates, antepartum 08/11/2024 9:34 AM EDT [facility] Immunizations Immunization Date Immunization Notes Care Provider Duc patel 06-04-2020 tetanus toxoid, reduced diphtheria toxoid, and acellular pertussis vaccine, adsorbed [place], [place] 03-07-2019 influenza virus vaccine, unspecified formulation Kiki Milan [employer] Work Phone: [facility] NEGATED: Highlighted row has not occurred!07-23-2020 influenza, injectable, quadrivalent, preservative free Kiki [place] [employer]SP[employer]DER.MANAGER [employer] Work Phone: [facility] Comment on above: Deferred: Patient Re fused - Not in patient's med bin at time of discharge & patient did not want to wait for it to come from pharmacy Payers Date Payer Category Payer Self-pay 2024 [facility] [id number] 2024 Unknown [id number] 2023 Unknown [id number] 2021 Unknown [id number] [id number] .[id number] 2020 Unknown [facility] [facility] [facility] [employer] [facility] [id number] 2020-Present [phone] [id number] [facility] PRASHANTH BARRETT [id number] .7.3.465590.315 2001 Unknown [id number] 2.16.840.1.445103.3.579.2 .479 2001 Unknown [id number] 2.16.840.1.710451.3.579.2 .479 2001 Unknown [id number] 2.16.840.1.611695.3.579.2 .479 2001 Unknown [id number] 2.16.840.1.791214.3.579.2 .479 2001 Unknown [id number] 2.16.840.1.203380.3.579.2 .479 2001 Unknown [id number] 2.16.840.1.927871.3.579.2 .479 2001 Unknown [id number] 2.16.840.1.435660.3.579.2 .479 2001 Unknown [id number] 2.16.840.1.233593.3.579.2 .479 2001 Unknown [id number] 2.16.840.1.237589.3.579.2 .479 Unknown [id number] 2.16.840.1.565847.3.579.2 .462 Unknown [id number] 2.16.840.1.163162.3.579.2 .462 Unknown [id number] 2.16.840.1.883239.3.579.2 .462 Unknown [id number] 2.16.840.1.687754.3.579.2 .462 Unknown [id number] 2.16.840.1.093720.3.579.2 .462 Unknown [id number] 2.16.840.1.400619.3.579.2 .462 Unknown [id number] 2.16.840.1.537480.3.579.2 .462 Unknown [id number] 2.16.840.1.641315.3.579.2 .462 Unknown [id number] 2.16.840.1.830553.3.579.2 .462 Unknown [id number] 2.16.840.1.710182.3.579.2 .462 Unknown [id number] 2.16.840.1.629246.3.579.2 .462 Unknown [id number] 2.16.840.1.781622.3.579.2 .462 Unknown [id number] 2.16.840.1.801975.3.579.2 .462 Unknown [id number] 2.16.840.1.617241.3.579.2 .462 Unknown [id number] 2.16840.1.867463.3.579.2 .462 Unknown [id number] 2.16.840.1.623787.3.579.2 .462 Unknown [id number] 2.16.840.1.801053.3.579.2 .462 Unknown [id number] 2.16.840.1.705374.3.579.2 .462 Unknown [id number] 2.16.840.1.190208.3.579.2 .462 Unknown [id number] 2.16.840.1.408813.3.579.2 .462 Unknown [id number] 2.16.840.1.983770.3.579.2 .462 Unknown [id number] 2.16.840.1.511770.3.579.2 .462 Unknown [id number] 2.16.840.1.444668.3.579.2 .462 Unknown [id number] 2.16.840.1.142355.3.579.2 .462 Unknown [id number] 2.16.840.1.660950.3.579.2 .462 Unknown [id number] 2.16.840.1.231817.3.579.2 .462 Unknown [id number] 2.16.840.1.285415.3.579.2 .462 Unknown [id number] 2.16.840.1.936941.3.579.2 .462 Unknown [id number] 2.16.840.1.617707.3.579.2 .462 Unknown [id number] 2.16.840.1.559383.3.579.2 .462 Unknown [id number] 2.16.840.1.978179.3.579.2 .462 Unknown [id number] 2.16.840.1.311881.3.579.2 .462 Unknown [id number] 2.16840.1.363781.3.579.2 .462 Unknown [id number] 2.16.840.1.887604.3.579.2 .462 Unknown [id number] 2.16.840.1.194798.3.579.2 .462 Unknown [id number] 2.16.840.1.680817.3.579.2 .462 Unknown [id number] 2.16840.1.398414.3.579.2 .462 Unknown [id number] 2.16840.1.047766.3.579.2 .462 Unknown [id number] 2.16.840.1.774214.3.579.2 .462 Unknown [id number] 2.16.840.1.738062.3.579.2 .462 Unknown [id number] 2.16.840.1.709848.3.579.2 .462 Unknown [id number] 2.16.840.1.019291.3.579.2 .462 Unknown [id number] 2.16.840.1.554018.3.579.2 .462 Unknown [id number] 2.16.840.1.547231.3.579.2 .462 Unknown [id number] 2.16.840.1.931034.3.579.2 .462 Unknown [id number] 2.16.840.1.935819.3.579.2 .462 Unknown [id number] 2.16.840.1.228414.3.579.2 .462 Unknown [id number] 2.16.840.1.115377.3.579.2 .462 Unknown [id number] 2.16.840.1.200680.3.579.2 .462 Unknown [id number] 2.16.840.1.556716.3.579.2 .462 Unknown [id number] 2.16.840.1.664899.3.579.2 .462 Unknown [id number] 2.16.840.1.366708.3.579.2 .462 Unknown [id number] 2.16.840.1.314131.3.579.2 .462 Unknown [id number] 2.16.840.1.283965.3.579.2 .462 Unknown [id number] 2.16.840.1.047140.3.579.2 .462 Unknown [id number] 2.16.840.1.036057.3.579.2 .462 Unknown [id number] 2.16.840.1.865652.3.579.2 .462 Unknown [id number] 2.16840.1.378606.3.579.2 .462 Social History Date Type Detail Facility Start: 06-04-2020 Tobacco smoking status NHIS Never smoker [place] Start: 06-04-2020 End: 08-11-2024 Tobacco use and exposure Never used [place] Start: 06-04-2020 Alcohol intake Lifetime non-d tone (finding) [place] Start: 06-04-2020 History SDOH Alcohol Frequency 1 [place] Start: 2001 Sex Assigned At Not on file [facility] ANGEL LUIS Exposure to SARS-CoV-2 (event) Not sure [place] Start: 02-26-2023 End: 08-11-2024 Tobacco smoking status NHIS Ex-smoker [facility] History of tobacco use Current smoker [facility] History of tobacco use Cigarette Smoker [facility] Start: 02-26-2023 End: 05-11-2024 Alcohol intake Current drinker of alcohol (finding) [facility] Start: 02-26-2023 End: 06-08-2023 History of Social function [facility] Start: 02-26-2023 End: 06-08-2023 Tobacco use panel [facility] National Score (1-100), lower number is lower risk 48 [facility] Start: 06-08-2023 Education 13 [facility] Start: 06-29-2024 End: 08-12-2024 Alcoholic beverage intake Ex-drinker (finding) [facility] Start: 07-14-2024 [facility] NEGATED: Highlighted rowStart: NINF History of tobacco use Passive smoker [facility] Functional Status Date Assessment Result Facility 07-23-2020 Are you deaf, or do you have serious difficulty hearing No 07/23/2020 4:53 PM Saira Hi RN No [facility] 07-23-2020 Are you blind, or do you have serious difficulty seeing, even when wearing glasses No 07/23/2020 4:53 PM Saira Hi RN No [facility] 07-23-2020 Do you have serious difficulty walking or climbing stairs No 07/23/2020 4:53 PM Saira Hi RN No [facility] 07-23-2020 Do you have difficul ty dressing or bathing No 07/23/2020 4:53 PM Saira Hi, ULISES No [facility] 07-23-2020 Because of a physica l, mental, or emotional condition, do you have difficulty doing errands alone such as visiting a physician's office or shopping No 07/23/2020 4:53 PM Saira Hi, ULISES No [facility] Mental Status Date Assessment Result Facility 07-23-2020 Because of a physica l, mental, or emotional condition, do you have serious difficulty concentrating, remembering, or making decisions No 07/23/2020 4:53 PM Saira Hi, RN No [facility] Clinical Notes 02-26-2023 to 03-13-2025 Telephone Encounter - Dasha Welsh RN - 08/12/2024 10:39 AM EDTTelephone Encounter - Dasha Welsh RN - 08/12/2024 10:39 AM EDTPatient Chacho Pugh MA - 08/11/2024 8:28 AM EDT Note Date & Type Note Facility 03-13-2025 Note [facility] 02-10-2025 Note [facility] pital [facility] CONSULTATION Referring Provider Navdeep Jeffrey, RENUKA [address] [facility] [address] [place] [address] SUBJECTIVE Alejandra Kiran is a 24 y.o. [...] detailed ultrasound report. Laboratory Studies reviewed in [facility]. Medical Discussion: Ultrasound results reviewed. The [...] reduce the ris (more content not included)... [facility] 09-22-2024 Note Consultation has jose christensen [...] counseling and care are largely handled at [place] [address] in [place] but she also sees a separate counselor, [place]ly [place]) for therapy s/p 2 incidences of hospitalization for anorexia and for episode of suicidal ideation. She states she is stable and under control. Alejandra had a cervical rib removed for thoracic outlet syndrome. She is a twin from an IVF . She desires NIPT/Carrier screening. Imagin. Nava intrauterine with cardiac activity present at 10w 6d with an HERBIE of 04/14/2025. 2. [place] rump length measurement are consistent with supplied dating. 3. Anatomic detail is extremely limited at this early gestational age. No gross abnormalities were noted on this examination. 4. Normal uterus and adnexa. 5. Absence of free fluid in the pelvis. Please refer to the ultrasound report for full details. [facility] Counseling Summary I reviewed the information regarding [...] topics are listed above. Martine Llanes MD [facility] Physician, Maternal- Medicine [facility] 08-12-2024 Telephone encounter Note Patient transferred care for remainder of . She was seen in our office for 1 visit. Please bill all visits. Dasha Welsh RN [facility] 08-12-2024 Miscellaneous Notes Patient transferred care for remainder of . She was seen in our office for 1 visit. Please bill all visits. Dasha Welsh RN documented in this encounter [facility] 08-11-2024 Instructions Chacho Redman MA - 08/11/2024 8:31 AM EDT Please select the following link to access the [facility] Your Guide to a Healthy . [email or web address] documented in this encounter [facility] 08-11-2024 Note HNO ID: [id number] Author: CHACHO REDMAN MA Service: ? Author Type: Material Hauler Type: Progress Notes Filed: 08/11/2024 15:56 Note Text: OB point of care ultrasound was performed. See imaging tab for details. Chacho Redman MA [facility] 08-11-2024 History of Presen t illness Narrative OB point of care ultrasound was performed. See imaging tab for details. Chacho Redman MA *Patient is a twin but mother had IVF *Pt has a history of depression/anxiety/Bipoar 2 diagnosed in [address] Frannie Hudson at [place] [address] in [place]. She states that she has had 2 inpatient mental hospitalizations for this the last 1 being in 2020. She states she last had suicidal thoughts in 2020. Discussed increased risks of depression during and and importance of reporting the development or worsening of symptoms should they occur. *She has a history of anorexia and sees a therapist at [facility] in [facility].-She states she has had inpatient [...] the following (please check all that apply)? 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 As applicable, any other physician, advance practice provider, medical student, or other health professional student that will be observing or involved in the sensitive examination for educational or training purposes was discussed with the Patient or Authorized Canal Boat Operator. The Patient or Authorized Canal Boat Operator has agreed to proceed with the sensitive [...] prhanane Carranza APRN.CNM documented in this encounter [facility] 08-09-2024 Note HNO ID: [id number] Author: CHRISTIANNE CARRANZA APRN.CNM Service: ? Author Type: Accounting Analyst Type: Progress Notes Filed: 08/11/2024 15:56 Note Text: *Patient is a twin but mother had IVF *Pt has a history of depression/anxiety/Bipoar 2 diagnosed in [address] Frannie Hudson at [place] [address] in [place]. She states that she has had 2 inpatient mental hospitalizations for this the last 1 being in 2020. She states she last had suicidal thoughts in 2020. Discussed increased risks of depression during and and importance of reporting the development or worsening of symptoms should they occur. *She has a history of anorexia and sees a therapist at [facility] in [facility].-She states she has had inpatient [...] the following (please check all that apply)? 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 [facility] 08-09-2024 Telephone encounter Note Patient called back. Can call her around 10:30 or 11:00 today. Thank you. [facility] 08-09-2024 Miscellaneous Notes Patient called back. Can call her around 10:30 or 11:00 today. Thank you. Left message for patient to return phone call to complete nurse intake questions for her upcoming appointment. Patient has an appointment with Christianne Carranza for NOB appointment. I am here today if she calls back or transfer to [facility] documented in this encounter [facility] 08-09-2024 Telephone encounter Note Left message for patient to return phone call to complete nurse intake questions for her upcoming appointment. Patient has an appointment with Christianne Carranza for NOB appointment. I am here today if she calls back or transfer to [facility] 06-29-2024 Note HNO ID: [id number] Author: MIKE CEBALLOS MD Service: ? Author Type: Physician Type: Progress Notes Filed: 07/01/2024 10:13 Note Text: Business Services Sales Representative offered: Patient accepts, visit chaperoned by Erica [...] L0 SAB0 IAB0 Ectopic0 Multiple0 Live Births0 Transmission Repairer History LMP: 06/01/2024, Having periods Age at Menarche: 13 Age at First : Age at Menopause: Transmission Repairer History Comments: Sexual Activity: Yes; Male Contraception: [...] discussed with the Patient or Patient's Authorized Canal Boat Operator. As applicable, any other physician, advance practice provider, medical student, or other health professional student that will be observing or involved in the sensitive examination for educational or training purposes was discussed with the Patient or Authorized Canal Boat Operator. The Patient or Authorized Canal Boat Operator has agreed to proceed with the sensitive [...] external genitalia normal, normal Bartholin's glands, urethra, [place]'s glands, no vulvar lesions, no cervical lesions, [...] or sooner as needed Mike Ceballos MD [facility] 06-29-2024 History of Presen t illness Narrative Business Services Sales Representative offered: Patient accepts, visit chaperoned by Erica [...] L0 SAB0 IAB0 Ectopic0 Multiple0 Live Births0 Transmission Repairer History LMP: 06/01/2024, Having periods Age at Menarche: 13 Age at First : Age at Menopause: Transmission Repairer History Comments: Sexual Activity: Yes; Male Contraception: [...] discussed with the Patient or Patient's Authorized Canal Boat Operator. As applicable, any other physician, advance practice provider, medical student, or other health professional student that will be observing or involved in the sensitive examination for educational or training purposes was discussed with the Patient or Authorized Canal Boat Operator. The Patient or Authorized Canal Boat Operator has agreed to proceed with the sensitive [...] external genitalia normal, normal Bartholin's glands, urethra, [place]'s glands, no vulvar lesions, no cervical lesions, [...] Mike Ceballos MD documented in this encounter [facility] 05-11-2024 Note HNO ID: [id number] Author: MIKE CEBALLOS MD Service: ? Author Type: Physician Type: Progress Notes Filed: 05/11/2024 10:51 Note Text: Business Services Sales Representative offered: Patient accepts, visit chaperoned by Erica [...] not within 12 months. Mike Ceballos MD [facility] 05-11-2024 History of Presen t illness Narrative Business Services Sales Representative offered: Patient accepts, visit chaperoned by Erica [...] Mike Ceballos MD documented in this encounter [facility] 05-05-2024 Telephone encounter Note Patient called. She is not having any pain. Her appointment on 05/18 is to remove the IUD. Offered a Thursday appointment with AT. Patient declined. Scheduled on 05/11. Patient to call if she chooses to come in for a sooner appointment or with another provider. Flory Manning RN [facility] 05-05-2024 Miscellaneous Notes Patient called. She [...] Julia Chapa RN documented in this encounter [facility] 05-05-2024 Telephone encounter Note Noe placed 02/26/2023. Please see Pt's mychart message. Julia Chapa RN [facility] 01-18-2024 Telephone encounter Note Patient called and appointment scheduled. Hellen Campoverde RN [facility] 01-18-2024 Miscellaneous Notes Patient called and appointment scheduled. Hellen Campoverde RN filed Please file order in AT absence. Will call Pt to get scheduled once order is filed. Julia Chapa RN Patient is calling requesting to have IUD Liletta removed and would like this with Ayo Ceballos. Please advise patient once order is placed documented in this encounter [facility] 01-18-2024 Telephone encounter Note filed [facility] Work Phone: 01-18-2024 Telephone encounter Note Please file order in AT absence. Will call Pt to get scheduled once order is filed. Julia Chapa RN [facility] 01-18-2024 Telephone encounter Note Patient is calling requesting to have IUD Liletta removed and would like this with Ayo Ceballos. Please advise patient once order is placed [facility] 11-25-2023 Note HNO ID: [id number] Author: ERICA BEVERLY MA Service: ? Author Type: Retail Salesperson Type: Progress Notes Filed: 11/25/2023 09:37 Note Text: . [facility] 11-25-2023 History of Presen t illness Narrative . Alejandra Kiran is a 23 year old female who presents for problem visit wishing to discuss fertility related to her progestin IUD, Liletta and parental hx of IVF. Reports irregular menses related to anorexia 3722-[address] now resolved [address] IUD place 2020. Menarche ~ 13 yo and regular until weight loss to 106. Now 160, 5'8. Monthly/cyclic discharge on underwear.. HPI: as above and planning in ~ 12 mo, always feels cold OB History T0 L0 SAB0 IAB0 Ectopic0 Multiple0 Live Births0 Transmission Repairer History LMP: 01/15/2023 (Exact Date), IUD Age at Menarche: Age at First : Age at Menopause: Transmission Repairer History Comments: Sexual Activity: Yes; Male Contraception: [...] external genitalia normal, normal Bartholin's glands, urethra, [place]'s glands, no vulvar lesions, no cervical lesions, good vaginal support, physiologic discharge present, normal appearing perineal body and perianal region BIMANUAL: uterus normal size, shape and consistency, no adnexal masses, and non-tender NEURO: alert and oriented x3,exam grossly non-focal EXTREMITIES: normal ASSESSMENT AND PLAN: 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 TSH Prepregnacy discussion, start PNVs Lengthy conversation >45 min Mike Ceballos MD documented in this encounter [facility] 11-25-2023 Note HNO ID: [id number] Author: MIKE CEBALLOS MD Service: ? Author Type: Physician Type: Progress Notes Filed: 11/25/2023 09:37 Note Text: Alejandra Kiran is a 23 year old female who presents for problem visit wishing to discuss fertility related to her progestin IUD, Liletta and parental hx of IVF. Reports irregular menses related to anorexia [id number] IUD place 2020. Menarche ~ 13 yo and regular until weight loss to 106. Now 160, 5'8. Monthly/cyclic discharge on underwear.. HPI: as above and planning in ~ 12 mo, always feels cold OB History T0 L0 SAB0 IAB0 Ectopic0 Multiple0 Live Births0 Transmission Repairer History LMP: 01/15/2023 (Exact Date), IUD Age at Menarche: Age at First : Age at Menopause: Transmission Repairer History Comments: Sexual Activity: Yes; Male Contraception: [...] external genitalia normal, normal Bartholin's glands, urethra, [place]'s glands, no vulvar lesions, no cervical lesions, good vaginal support, physiologic discharge present, normal appearing perineal body and perianal region BIMANUAL: uterus normal size, shape and consistency, no adnexal masses, and non-tender NEURO: alert and oriented x3,exam grossly non-focal EXTREMITIES: normal ASSESSMENT AND PLAN: 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 TSH Prepregnacy discussion, start PNVs Lengthy conversation >45 min Mike Ceballos MD [facility] 02-26-2023 History of Presen t illness Narrative [...] OB History No obstetric history on file. Transmission Repairer History LMP: 01/15/2023 (Exact Date), IUD Age at Menarche: Age at First : Age at Menopause: Transmission Repairer History Comments: Sexual Activity: Yes; Male Contraception: [...] 3 - Low documented in this encounter [facility] Evaluation note Diagnosis Secondary amenorrhea- Primary Absence of menstruation [facility] Diagnosis Irregular menses- Primary Irregular menstrual cycle Intolerance to cold Other general symptoms documented in this encounter [facility] note* Diagnosis Encounter for IUD removal- Primary Encounter for removal of intrauterine contraceptive device documented in this encounter [facility] note* Diagnosis Encounter for IUD removal- Primary Encounter for removal of intrauterine contraceptive device documented in this encounter [facility] note* Diagnosis Encounter for gynecological examination (general) (routine) without abnormal findings- Primary Attempting to conceive documented in this encounter [facility] note* Diagnosis with uncertain dates, antepartum- Primary state, incidental 6 weeks gestation of state, incidental Threatened miscarriage Threatened , unspecified as to episode of care Bipolar 2 disorder (HCC) Other bipolar disorders Anorexia nervosa Anxiety Anxiety state, unspecified Depression, unspecified depression type Cholinergic urticaria Encounter for supervision of high risk in first trimester, antepartum documented in this encounter [facility] for referral (narrative)* Outpatient Procedure (Routine) - Pending Review Specialty Diagnoses / Procedures Referred By Jose Roberto rowley Referred To Contact [facility] Diagnoses Encounter for IUD removal Procedures REMOVE INTRAUTERINE DEVICE REMOVE INTRAUTERINE DEVICE Dell Alonso MD [address] [place] [address] [address] [place] [address] Referral ID Status Reason Start Date Expiration Date Visits Requested Visits Authorized [id number] Pending Review Auto-Generat ed Referral 01/18/2024 01/17/[address] [facility] for referral (narrative)* Outpatient Procedure (Routine) - New Request Specialty Diagnoses / Procedures Referred By Jose Roberto rowley Referred To Contact [facility] Diagnoses Encounter for IUD removal Procedures REMOVE INTRAUTERINE DEVICE REMOVE INTRAUTERINE DEVICE Mike Ceballos MD [address] [facility] [place] [address] [facility] [place] [place] [address] Referral ID Status Reason Start Date Expiration Date Visits Requested Visits Authorized [id number] New Request Auto-Generat ed Referral 05/11/2025 1 1 [facility] Summary Purpose Family History No Family History Records FoundNo Family History Records FoundNo Family History Records FoundNo Family History Records FoundNo Family History Records Found Advance Directives No Advanced Directives Records FoundLatest Code Status on File Code Status Date Activated Date Inactivated Comments Full Code 06/05/2020 5:11 PM Additional Source Comments INFORMATION SOURCE (unrecogn ized section and content) DATE CREATED AUTHOR 03/19/2020 [facility] DATE CREATED AUTHOR AUTHOR'S ORGANIZ ATION 06/12/2020 [facility] DATE CREATED AUTHOR AUTHOR'S ORGANIZ ATION 08/25/2024 [facility] DATE CREATED AUTHOR AUTHOR'S ORGANIZ ATION 03/11/2025 [facility] DATE CREATED AUTHOR AUTHOR'S ORGANIZ ATION 04/02/2025 [facility] Source Comments (unrecognize d section and content) In the event this informatio n is protected by the Federal Confidentiality of Alcohol and Drug Abuse Patient Records regulations: The Federal rules restrict any use of the information to criminally investigate or prosecute any alcohol or drug abuse patient.[facility] the event this information is protected by the Federal Confidentiality of Alcohol and Drug Abuse Patient Records regulations: The Federal rules restrict any use of the information to criminally investigate or prosecute any alcohol or drug abuse patient.[facility] the event this information is protected by the Federal Confidentiality of Alcohol and Drug Abuse Patient Records regulations: The Federal rules restrict any use of the information to criminally investigate or prosecute any alcohol or drug abuse patient.[facility] the event this information is protected by the Federal Confidentiality of Alcohol and Drug Abuse Patient Records regulations: The Federal rules restrict any use of the information to criminally investigate or prosecute any alcohol or drug abuse patient.[facility] the event this information is protected by the Federal Confidentiality of Alcohol and Drug Abuse Patient Records regulations: The Federal rules restrict any use of the information to criminally investigate or prosecute any alcohol or drug abuse patient.[facility] the event this information is protected by the Federal Confidentiality of Alcohol and Drug Abuse Patient Records regulations: The Federal rules restrict any use of the information to criminally investigate or prosecute any alcohol or drug abuse patient.[facility] the event this information is protected by the Federal Confidentiality of Alcohol and Drug Abuse Patient Records regulations: The Federal rules restrict any use of the information to criminally investigate or prosecute any alcohol or drug abuse patient.[facility] the event this information is protected by the Federal Confidentiality of Alcohol and Drug Abuse Patient Records regulations: The Federal rules restrict any use of the information to criminally investigate or prosecute any alcohol or drug abuse patient.[facility] the event this information is protected by the Federal Confidentiality of Alcohol and Drug Abuse Patient Records regulations: The Federal rules restrict any use of the information to criminally investigate or prosecute any alcohol or drug abuse patient.[facility] the event this information is protected by the Federal Confidentiality of Alcohol and Drug Abuse Patient Records regulations: The Federal rules restrict any use of the information to criminally investigate or prosecute any alcohol or drug abuse patient.[facility] the event this information is protected by the Federal Confidentiality of Alcohol and Drug Abuse Patient Records regulations: The Federal rules restrict any use of the information to criminally investigate or prosecute any alcohol or drug abuse patient.[facility] the event this information is protected by the Federal Confidentiality of Alcohol and Drug Abuse Patient Records regulations: The Federal rules restrict any use of the information to criminally investigate or prosecute any alcohol or drug abuse patient.[facility] Reason for Visit (unrecogniz ed section and content) Reason Comments Establish Care Having sym ptoms- mood swings- missed menses- heartburn- cramps- bloating Reason Comments Discussion Reason Comments Orders Reason Onset Date Comments IUD Removal 05/11/2024 Specialty Diagnoses / Procedures Referred By Jose Roberto rowley Referred To Contact [facility] Diagnoses Encounter for IUD removal Encounter for insertion of intrauterine contraceptive device Procedures REMOVE INTRAUTERINE DEVICE REMOVE INTRAUTERINE DEVICE LEVONORGESTREL IU 52MG 3 YR INSERT INTRAUTERINE DEVICE Dell Alonso MD [address] [place] [address] [facility] [address] [facility] [place] [address] Referral ID Status Reason Start Date Expiration Date Visits Requested Visits Authorized [id number] Authorized Auto-Generat ed Referral 01/19/2024 05/31/2024 2 2 Reason Comments Well Woman Reason Comments Initial OB Visit Reason Comments Transferred Care Reason Comments Appointment Care Teams (unrecognized sec tion and content) Assistant Front Desk Manager Relationship Specialty Start Date End Date Bertha Wood [address] [place] [address] [place] [address] PCP - General Family Medicine 06/28/20 Marie Carrillo DO Orthopedics 01/29/16 Assistant Front Desk Manager Relationship Specialty Start Date End Date Bertha Wood [address] [place] [address] PCP - General Family Medicine 06/28/20 Marie Carrillo DO Orthopedics 01/29/16 Assistant Front Desk Manager Relationship Specialty Start Date End Date Bertha Wood [address] [place] [address] PCP - General Family Medicine 06/28/20 Marie Carrillo DO Orthopedics 01/29/16 Assistant Front Desk Manager Relationship Specialty Start Date End Date Bertha Wood [address] [place] [address] PCP - General Family Medicine 06/28/20 Marie Carrillo DO Orthopedics 01/29/16 Assistant Front Desk Manager Relationship Specialty Start Date End Date Bertha Wood [address] [place] [address] PCP - General Family Medicine 06/28/20 Marie Carrillo DO Orthopedics 01/29/16 Assistant Front Desk Manager Relationship Specialty Start Date End Date Bertha Wood [address] [place] [address] PCP - General Family Medicine 06/28/20 Marie Carrillo DO Orthopedics 01/29/16 Assistant Front Desk Manager Relationship Specialty Start Date End Date Bertha Wood [address] [place] [address] PCP - General Family Medicine 06/28/20 Marie Carrillo DO Orthopedics 01/29/16 Assistant Front Desk Manager Relationship Specialty Start Date End Date Bertha Wood [address] [place] [address] PCP - General Family Medicine 06/28/20 Marie Carrillo DO Orthopedics 01/29/16 Assistant Front Desk Manager Relationship Specialty Start Date End Date Bertha Wood [address] [place] [address] PCP - General Family Medicine 06/28/20 Marie Carrillo DO Orthopedics 01/29/16 Assistant Front Desk Manager Relationship Specialty Start Date End Date Bertha Wood [address] [place] [address] PCP - General Family Medicine 06/28/20 Marie [...] BE BASED ON THE PRIMARY CLINICAL RECORDS. [facility]. provides no warranty or guarantee of the accuracy or completeness of information in this document.
[2025-05-26] MEDS: 0.9% Normal Saline (1000mL) 1,000 ML 999 ML IV (03:43)
[2025-05-26 03:59] LABS: Hematocrit 38.8 % (37-47); Hemoglobin 12.8 g/dL (12.0-15.0); Immature Granulocytes Count 0.040 X10^3/uL (0.0-0.0); Mean Corp Hgb Conc 33.0 g/dL (32-36); Mean Corpuscular Volume 84.0 fL (81-99); Mean Platelet Vol. 10.2 fl (6.2-12.0); NRBC Flagged by Analyzer 0 % (0-5); POSITIVE DIFFERENTIAL YES; Platelet Count 257 K/mm3 (150-450); RBC Distribution Width CV 14.9 % (11.6-14.6); RBC Distribution Width SD 45.7 fl (35.1-43.9); Red Blood Count 4.62 M/mm3 (4.2-5.4); White Blood Count 7.0 K/mm3 (4.4-11.0)
[2025-05-26 04:29] LABS: AST(SGOT) 26 U/L (<=31); Alanine Aminotransfer ALT/SGPT 19 U/L (<=34); Albumin, Serum 4.2 g/dL (3.5-5.0); Alkaline Phosphatase 128 U/L (35-104); Anion Gap 11 (7-18); BUN 9 mg/dL (4-19); BUN/Creat Ratio 9.6 RATIO (10-20); Calcium,Total 9.5 mg/dL (7.6-11.0); Carbon Dioxide 23.5 mmol/L (20.0-29.0); Chloride 100 mmol/L (96-106); Estimated Creatinine Clearance 110.94 ml/min (50-250); Globulin 3.3 g/dL (2.2-4.2); Glucose 95 mg/dL (70-99); Potassium 3.8 mmol/L (3.5-5.1)
[2025-05-26 04:29] LABS: Mucous, Urine 0 SEEN /hpf (<or=2+); Red Blood Cells-Urine 0 SEEN /hpf (0-5)
[2025-05-26 04:37] LABS: Internal QC Validated? YES +Cl - CLEAR BKGD; Pregnancy, Serum, hCG Quali. NEGATIVE Negative
--- NOTE | 2025-05-26 04:45 | CT_ITS ---
PROCEDURE: ABDOMEN/PELVIS W IV CONT ONLY 05/26/2025 REASON FOR EXAM: ABDOMINAL PAIN FLANK PAIN TECHNIQUE: Procedure Code: [id number] Modality: CT Procedure: ABDOMEN/PELVIS W IV CONT ONLY Coronal and Sagittal reconstruction series were provided. CONTRAST: Isovue-300 VOLUME: 92 mL One or more dose reduction techniques were used (e.g., Automated exposure control, adjustment of the mA and/or kV according to patient size, use of iterative reconstruction technique. RADIATION DOSE SUMMARY: DLP: 1064.77 mGycm COMPARISON: None available FINDINGS: Lower chest: Lung bases are clear. Liver: Normal size. Normal enhancement. No enhancing lesion. Gallbladder and biliary ducts: Unremarkable gallbladder. Normal caliber intrahepatic and common bile ducts. Pancreas:Unremarkable. No ductal dilatation or mass. No peripancreatic fluid. Spleen: Unremarkable. 1.0 x 1.0 cm splenule at the inferomedial to the spleen. Adrenal glands: Unremarkable. Kidneys and ureters: Normal renal size, morphology, and enhancement. Mild hydroureter bilaterally, [id number]-left. No nephroureterolithiasis. No renal mass. Urinary bladder: Unremarkable. GI: Unremarkable stomach and duodenum. Normal caliber small bowel and large bowel.No evidence for bowel obstruction. Appendix: Unremarkable. Peritoneum: No ascites. Tiny fat containing umbilical hernia. Lymph nodes: Multiple nonspecific subcentimeter shotty mesenteric lymph nodes. No lymphadenopathy. Vasculature: Portal, splenic, and superior mesenteric veins are patent. No abdominal aortic aneurysm. Reproductive organs: Uterus present and unremarkable on CT. No adnexal mass. Musculoskeletal and soft tissues: No aggressive osseous lesions. Unremarkable soft tissues. CT/Abdomen/Pelvis W IV Cont ONLY IMPRESSION: 1. Mild hydroureter bilaterally, [id number]-left. No nephroureterolith iasis. 2. No acute appendicitis. 3. No evidence of bowel obstruction. Reading Location: [id number]
[2025-05-26 05:06] VITALS: BP 128/59; PULSE 111; RESP 18; TEMP 39.5; O2SAT 99
[2025-05-26 05:17] LABS: Color, Urine Yellow (Yellow); Glucose, Dipstick Normal (Normal); Ketone-Dipstick Negative (Negative); Leukocyte Esterase-Dipstick 100 /ul (Negative); Nitrite-Dipstick Negative (Negative); Occult Blood-Urine Negative /ul (Negative); Protein-Dipstick Negative (Negative); Specific Gravity, Urine 1.015 (1.002-1.030); Urine Bilirubin Dipstick Negative (Negative)
[2025-05-26 05:22] LABS: Squamous Epithelial Cells - UA 0-5 SEEN /hpf (5-10)
--- NOTE | 2025-05-26 05:25 | EX.ED.DYSGE1 ---
HPI History of Present Illness Chief Complaint: Fever Narrative Narrative: Patient was seen and examined after presenting to ED for fevers chills she had a UTI did not complete the course of antibiotics started on another course of antibiotics has not completed that feels like now she is getting pain into her back especially worse in the flank seemingly worse in the left flank she is nauseous. [facility] Medical History Clogged duct, Nipple pain Engorgement of breasts Care and examination of lactating mother Bipolar disorder Eating disorder Generalized anxiety disorder Hx of thoracic outlet syndrome Home Medications ?Medication ?Instructions ?Recorded ?Last Taken ?Type docosahexaenoic acid 200 mg 200 mg PO DAILY 08/12/24 03/09/25 History capsule ( DHA) fluoxetine 40 mg capsule (Prozac) 60 mg PO QDAY mental health 08/12/24 03/10/25 History fluoxetine 20 mg capsule 80 mg PO DAILY 05/26/25 Unknown History quetiapine 50 mg tablet 50 mg PO QHS 05/26/25 Unknown History sulfamethoxazole 800 1 tab PO BID 05/26/25 Unknown History mg-trimethoprim 160 mg tablet sulfamethoxazole 800 1 tab PO BID #5 tabs 05/26/25 Unknown Rx mg-trimethoprim 160 mg tablet (Bactrim DS) Allergy/AdvReac Type Severity Reaction Status Date / Time No Known Allergies Allergy Verified 05/26/25 03:08 Family History Grandfather Diabetes CVA (cerebral vascular accident) Grandmother Diabetes Mother Depression Brother Tachycardia Grandmother Thyroid disorder Anxiety Surgical History History of wisdom tooth extraction History of shoulder surgery Social History adopted: No household members: spouse and children number of children: 1 current occupational status: employed current occupation: current occupational exposures/hazards: No pets and animals: Yes pets and animals: dog(s) history of recent travel: Yes (July 2024 - ) out of state: Yes out of country: No sexually active: Yes Smoking Status: Former smoker quit date: 11/30/23 second hand exposure: No quit status: quit date established alcohol intake: current alcohol intake frequency: holidays/special occasions only details: Not while substance use type: former substance user Date of last use: - 2021 well-balanced diet: daily or most days caffeine: Yes Type: coffee eating out: 1-3 times/week during the past year weight has: remained stable what type of physical activity do you participate in: none puma/bahai: Mandaeism seatbelt use: always do you feel safe at home: Yes additional social history: : [employer]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 Systems reviewed including constitutional, psychiatric, cardiovascular, respiratory, integument, HENT, gastrointestinal. EXAM Physical Exam Narrative Exam Narrative: Patient is febrile but hemodynamically stable does not appear toxic or in distress she is normocephalic and atraumatic normal lung sounds abdomen is soft nontender nondistended but she does have bilateral CVA tenderness no overlying erythema crepitus vesicular lesions or other skin discoloration or changes intact and equal MSPs in her extremities Const Vital Signs: 05/26/25 03:08 05/26/25 03:11 05/26/25 03:49 Temperature 102.0 F H 102 F H Temperature Source Oral Oral Pulse Rate 115 H 116 H Respiratory Rate 18 18 Respiratory Effort Normal Non-Labored Blood Pressure 128/76 H 128/76 H Blood Pressure Mean 93 93 Pulse Ox 98 99 Oxygen Delivery Method Room Air Room Air 05/26/25 05:06 05/26/25 07:00 Temperature 103.1 F H 98.7 F Temperature Source Oral Oral Pulse Rate 111 H 98 Respiratory Rate 18 18 Respiratory Effort Blood Pressure 128/59 H 128/107 H Blood Pressure Mean 82 114 Pulse Ox 99 98 Oxygen Delivery Method Room Air Room Air MDM MDM MDM Narrative Medical decision making narrative: Nursing notes, triage notes, available previous documentation, and vital signs were reviewed. Any discrepancies noted were addressed. Differential Diagnoses: This could be viral or she could have pyelonephritis need to consider the possibility of nephrolithiasis Interventions: Tylenol and Toradol Antibiotics Given: Bactrim Fluids Given: 1 L normal saline Labs Reviewed: No leukocytosis leukopenia significant anemia or thrombocytopenia no electrolyte abnormality renal insufficiency or transaminitis she is not patient is also 2 months . Imaging Reviewed: Official CT of the abdomen and pelvis showing mild hydroureter bilaterally with the right greater than the left but no evidence of any stone no evidence of appendicitis or bowel obstruction Previous Documentation Reviewed: None available or applicable at this time. ED Course: Patient presenting with symptoms as stated before still having dysuria now having progressive back pain and flank pain seemingly having CVA tenderness her urine has 100 leukocyte esterase but no WBCs no bacteria but she is actively on Bactrim. 0918: Most of the workup was fairly unremarkable however given her symptoms we will go ahead and extend her treatment. For additional 3 days for a total of 10 days worth of antibiotics for the UTI and treated clinically more as a pyelonephritis. Return precautions follow-up recommendations provided patient stable for discharge home This note was made utilizing voice recognition software. All attempts were made to correct spelling or other errors prior to note completion. However, due to the fast-paced nature of emergency medicine, some errors may still be present. Lab Data Labs: Laboratory Results - last 24 hr 05/26/25 05/26/25 03:47 04:22 WBC 7.0 RBC 4.62 Hgb 12.8 Hct 38.8 MCV 84.0 MCH 27.7 MCHC 33.0 RDW Std Deviation 45.7 H RDW Coeff of Rosy 14.9 H Plt Count 257 MPV 10.2 Immature Gran % (Auto) 0.600 Neut % (Auto) 79.5 H Lymph % (Auto) 7.5 L [place] % (Auto) 7.0 Eos % (Auto) 5.3 H Baso % (Auto) 0.1 Absolute Neuts (auto) 5.5 Absolute Lymphs (auto) 0.52 L Nucleated RBC % 0 Sodium 135 Potassium 3.8 Chloride 100 Carbon Dioxide 23.5 Anion Gap 11 BUN 9 Creatinine 0.94 Estim Creat Clear Calc 110.94 Est GFR (MDRD) Non-Af 88 BUN/Creatinine Ratio 9.6 L Glucose 95 Calcium 9.5 Total Bilirubin 0.17 AST 26 ALT 19 Alkaline Phosphatase 128 H Total Protein 7.5 Albumin 4.2 Globulin 3.3 Albumin/Globulin Ratio 1.3 Serum , Qual NEGATIVE Urine Color Yellow Urine Clarity Clear Urine pH 6.0 Ur Specific [place] 1.015 Urine Protein Negative Urine Glucose (UA) Normal Urine Ketones Negative Urine Occult Blood Negative Urine Nitrite Negative Urine Bilirubin Negative Urine Urobilinogen Normal Ur Leukocyte Esterase 100 H Urine RBC 0 SEEN Urine WBC 0 SEEN Ur Squamous Epith Cells 0-5 SEEN Urine Bacteria 0 SEEN Urine Mucus 0 SEEN Radiography Diagnostic Testing: Clinical Impression(s) from Imaging Studies Abdomen/Pelvis CT 05/26/25 04:45 IMPRESSION: 1. Mild hydroureter bilaterally, [id number]-[id number]-left. No nephroureterolithiasis. 2. No acute appendicitis. 3. No evidence of bowel obstruction. Reading Location: [facility] Discharge Plan Triage Chief Complaint: Fever ED Provider: Burton Singh Dx/Rx/DC Orders Clinical Impression: Dysuria, Pyelonephritis, Bilateral flank pain Instructions: ED Pyelonephritis, Female (Adult) Prescriptions: New sulfamethoxazole-trimethoprim [Bactrim DS] 800-160 mg tablet 1 tab PO BID Qty: 5 0RF No Action DHA 200 mg capsule 200 mg PO DAILY fluoxetine [Prozac] 40 mg capsule 60 mg PO QDAY sulfamethoxazole-trimethoprim 800-160 mg tablet 1 tab PO BID fluoxetine 20 mg capsule 80 mg PO DAILY quetiapine 50 mg tablet 50 mg PO QHS Primary Care Provider: Taiwo Conde Referrals: Taiwo Conde DO [Primary Care Provider, Family Practice] Activity Restrictions/Additional Instructions: Take the antibiotics to completion follow-up with your doctor please return if worse Print Language: Danish Disposition Disposition: Home, Self Care
[2025-05-26 07:00] VITALS: BP 128/107; PULSE 98; RESP 18; TEMP 37.1; O2SAT 98
[2025-05-26] MEDS: Smz/Tmp Ds Tablet 1 TABLET PO (09:28)
[2025-05-26 09:43] VITALS: BP 92/55; PULSE 70; RESP 18; TEMP 36.6; O2SAT 97
== END 2025-05-26 09:48 | disposition home or self-care (01) ==
PROVIDERS: Emergency Provider Specialist/Technologist Athletic Trainer; PCP Family Medicine; Visit Provider Specialist/Technologist Athletic Trainer
DX: N12 Tubulo-interstitial nephritis, not specified as acute or chronic (principal); Z87.891 Personal history of nicotine dependence
CPT/HCPCS: 74177; 80053; 81001; 84703; 85025; 96361; 96374; 96375; 99283; Q9967; A4216; J2405

== ENCOUNTER 2025-05-26 15:35 | Emergency (ER) | payer BC, SELFPAY ==
[2025-05-26] VITALS (7 sets, daily range): BP systolic 117–125; BP diastolic 50–85; PULSE 86–134; RESP 15–22; TEMP 36.6–37.7; O2SAT 97–100; BMI 30.7
--- OUTSIDE RECORDS SUMMARY | 2025-05-26 16:46 | XMS RPT_ITS | CCD ---
Author Organization [facility] Care Team Providers Care Corporate Relations Manager Name Role Phone Unavailable Primary Care Provider Unavailabl e Marie Carrillo DO Unavailable Bertha Wood Primary Care Provider Marie Carrillo DO Unavailable Bertha Wood Cathy Primary Care Provider [phone] MIKE CEBALLOS Attending Unavailable JOANTHONYIFF, BERTHA CATHY Primary Care Unavailable MIKE CEBALLOS Attending Unavailable DELL ALONSO Referring Unavailable JOLLIFF, BERTHA CATHY Primary Care Unavailable IMKE CEBALLOS Referring Unavailable JOLLIFF, BERTHA CATHY Primary [...] Unavailable Christos, Sundeep Primary Care Unavailable Burton PRACTICE DIRECTOR, Nohemi Attending Unavailable Tiera Mcfarland Attending Unavailable Jolliff, Bertha S Primary Care Unavailable Jolliff, Bertha S Referring Unavailable Tiera Mcafrland Attending Unavailable Jolliff, Bertha S Primary Care Unavailable Jolliff, Bertha S Referring Unavailable Christos, Sundeep Primary Care Unavailable Flory Leigh Attending Unavailabl e Tiera Mcfarland Attending Unavailable Christos, Sundeep Primary Care Unavailable Tiera Mcfarland Attending Unavailable Christos, Sundeep Primary Care Unavailable HunteronyTiera Referring Unavailable Christos, Sundeep Primary Care Unavailable Deniz Hopkins Attending Unavailable Navdeep eJffrey Referring Unavailable Christos, Sundeep Primary Care Unavailable Navdeep Jeffrey Attending Unavailable Christos, Sundeep Primary Care Unavailable Burton PRACTICE DIRECTORNohemi Referring Unavailable Burton PRACTICE DIRECTORNohemi Attending Unavailable Christos, Sundeep Primary Care Unavailable [...] Unavailable Jolliff, Bertha S Referring Unavailable Burton PRACTICE DIRECTOR, Nohemi Attending Unavailable Navdeep Jeffrey Referring Unavailable [...] Unavailable Christos, Sundeep Primary Care Unavailable Lee, Barco Attending Unavailable Minoo Arredondo Attending Unavailable Jolliff, Bertha S Primary Care Unavailable Christos, Sundeep Primary Care Unavailable Christos, Sundepe Referring Unavailable Navdeep Jeffrey Attending Unavailable Christos, Sundeep Referring Unavailable Christos, Sundeep Primary Care Unavailable Vande Velde, Flory Attending Unavailabl e Marcanthony, Tiera Attending Unavailable Christos, Sundeep Primary Care Unavailable Marcanthony, Tiera Referring Unavailable Marcanthony, Tiera Admitting Unavailable Marcanthony, Tiera Referring Unavailable Marcanthony, Tiera Attending Unavailable Christos, Sundeep Primary Care Unavailable Lee, Barco Consulting Unavailable Vande Velde, Flory Referring Unavailabl [...] Translations: [POTATO] Drug Allergy 7 Rash, Hives [facility] (14 sources) Seasonal allergy; Translations: [SEASONAL ALLERGIES] Allergy to substance 8 Other: See Comments, Cough [facility] Medications Current Medications Medication Drug Class(es) [...] Start: 02-10-2023 take 1 capsule by mo [facility] once daily FLUoxetine (PROZAC) 20 mg capsule [...] esmer th every 12 (twelve) hours. levonorgestrel 0.803374 mg/hr intrauterine system (7 sources) Progestin, Progestin-containing [...] Reference Range Facility /Ivanna 03-30-2025 /PRITI Normal [facility] Comprehensive Metabolic Prof ilon 03-23-2025 Albumin [Mass/Vol] 4.0 g/dL Normal 3.5-5.0 [facility] Comment on above: Performed By: #### L 049.8773 ####[facility] [address] [place], [address] Albumin/Globulin [Mass ratio] 1.2 {ratio} Normal 0.9-2.4 [facility] Comment on above: Performed By: #### L 500.4050 ####[facility] [address] [place], [address] ALK PHOS 115 U/L High 35-104 [facility] Comment on above: Performed By: #### L 500.4050 ####[facility] [address] [place], [address] ALT [Catalytic activity/Vol] 37 U/L High <=34 [facility] Comment on above: Performed By: #### L 500.4050 ####[facility] [address] [place], [address] AST [Catalytic activity/Vol] 33 U/L High <=31 [facility] Comment on above: Performed By: #### L 500.4050 ####[facility] [address] [place], [address] Bilirubin [Mass/Vol] 0.23 mg/dL Normal 0.00-1.30 [facility] Comment on above: Performed By: #### L 500.4050 ####[facility] [address] [place], [address] BUN/CRE 11.1 RATIO Normal 10-20 [facility] Comment on above: Performed By: #### L 500.4050 ####[facility] [address] [place], [address] Calcium [Mass/Vol] 9.4 mg/dL Normal 7.6-11.0 [facility] Comment on above: Performed By: #### L 500.4050 ####[facility] [address] [place], [address] Chloride [Moles/Vol] 103 mmol/L Normal 98-108 [facility] Comment on above: Performed By: #### L 500.4050 ####[facility] [address] [place], [address] CO2 [Moles/Vol] 24.6 mmol/L Normal 21.0-32.0 [facility] Comment on above: Performed By: #### L 500.4050 ####[facility] [address] [place], [address] Creatinine [Mass/Vol] 0.85 mg/dL Normal 0.70-1.20 [facility] Comment on above: Performed By: #### L 500.4050 ####[facility] [address] [place], [address] GAP 11 Normal 5-15 [facility] Comment on above: Performed By: #### L 500.4050 ####[facility] [address] [place], [address] GFR/1.73 sq M.predicted among non-blacks MDRD (S/P/Bld) [Vol rate/Area] 99 mL/min/{1.73_m2} Normal >60 [facility] Comment on above: Result Comment: mL/m in/1.73m2 CKD-EPI Creatinine Equation (2020) Performed By: #### L 500.4050 ####[facility] [address] [place], [address] Globulin (S) [Mass/Vol] 3.2 g/dL Normal 2.2-4.2 [facility] Comment on above: Performed By: #### L 500.4050 ####[facility] [address] [place], [address] Glucose [Mass/Vol] 86 mg/dL Normal 70-99 [facility] Comment on above: Performed By: #### L 500.4050 ####[facility] [address] [place], [address] Potassium [Moles/Vol] 4.2 mmol/L Normal 3.3-5.1 [facility] Comment on above: Performed By: #### L 500.4050 ####[facility] [address] [place], [address] Sodium [Moles/Vol] 138 mmol/L Normal 133-145 [facility] Comment on above: Performed By: #### L 500.4050 ####[facility] [address] [place], [address] T PROT 7.2 g/dL Normal 5.9-8.4 [facility] Comment on above: Performed By: #### L 500.4050 ####[facility] [address] [place], [address] Urea nitrogen [Mass/Vol] 9 mg/dL Normal 4-19 [facility] Comment on above: Performed By: #### L 500.4050 ####[facility] [address] [place], [address] Office Visit Reporton 2024 Office Visit Report Normal [facility] MR/BMS.BBCon 03-22-2025 MR/BMS.BBC Normal [facility] Comprehensive Metabolic Prof ilon 03-16-2025 Albumin [Mass/Vol] 3.3 g/dL Low 3.5-5.0 [facility] Comment on above: Performed By: #### L 500.4050 ####[facility] [address] [place], [address] Albumin/Globulin [Mass ratio] 1.2 {ratio} Normal 0.9-2.4 [facility] Comment on above: Performed By: #### L 500.4050 ####[facility] [address] [place], [address] ALK PHOS 111 U/L High 35-104 [facility] Comment on above: Performed By: #### L 500.4050 ####[facility] [address] [place], [address] ALT [Catalytic activity/Vol] 43 U/L High <=34 [facility] Comment on above: Performed By: #### L 500.4050 ####[facility] [address] [place], [address] AST [Catalytic activity/Vol] 41 U/L High <=31 [facility] Comment on above: Performed By: #### L 500.4050 ####[facility] [address] [place], [address] Bilirubin [Mass/Vol] 0.25 mg/dL Normal 0.00-1.30 [facility] Comment on above: Performed By: #### L 500.4050 ####[facility] [address] [place], [address] BUN/CRE 11.1 RATIO Normal 10-20 [facility] Comment on above: Performed By: #### L 500.4050 ####[facility] [address] [place], [address] Calcium [Mass/Vol] 9.3 mg/dL Normal 7.6-11.0 [facility] Comment on above: Performed By: #### L 500.4050 ####[facility] [address] [place], [address] Chloride [Moles/Vol] 102 mmol/L Normal 98-108 [facility] Comment on above: Performed By: #### L 500.4050 ####[facility] [address] [place], [address] CO2 [Moles/Vol] 24.7 mmol/L Normal 21.0-32.0 [facility] Comment on above: Performed By: #### L 500.4050 ####[facility] [address] [place], [address] Creatinine [Mass/Vol] 0.73 mg/dL Normal 0.70-1.20 [facility] Comment on above: Performed By: #### L 500.4050 ####[facility] [address] [place], [address] GAP 12 Normal 5-15 [facility] Comment on above: Performed By: #### L 500.4050 ####[facility] [address] [place], [address] GFR/1.73 sq M.predicted among non-blacks MDRD (S/P/Bld) [Vol rate/Area] 118 mL/min/{1.73_m2} Normal >60 [facility] Comment on above: Result Comment: mL/m in/1.73m2 CKD-EPI Creatinine Equation (2020) Performed By: #### L 500.4050 ####[facility] [address] [place], [address] Globulin (S) [Mass/Vol] 2.8 g/dL Normal 2.2-4.2 [facility] Comment on above: Performed By: #### L 500.4050 ####[facility] [address] [place], [address] Glucose [Mass/Vol] 92 mg/dL Normal 70-99 [facility] Comment on above: Performed By: #### L 500.4050 ####[facility] [address] [place], [address] Potassium [Moles/Vol] 4.5 mmol/L Normal 3.3-5.1 [facility] Comment on above: Performed By: #### L 500.4050 ####[facility] [address] [place], [address] Sodium [Moles/Vol] 138 mmol/L Normal 133-145 [facility] Comment on above: Performed By: #### L 500.4050 ####[facility] [address] [place], [address] T PROT 6.1 g/dL Normal 5.9-8.4 [facility] Comment on above: Performed By: #### L 500.4050 ####[facility] [address] [place], [address] Urea nitrogen [Mass/Vol] 8 mg/dL Normal 4-19 [facility] Comment on above: Performed By: #### L 500.4050 ####[facility] [address] [place], [address] Office Visit Reporton 2024 Office Visit Report Normal [facility] 12 Lead EKGon 03-15-2025 12 Lead EKG Normal [facility] CBC W/Diff, Automatedon 03-01 Absolute Lymph 1.14 X10 3/uL Normal 0.83-4.51 [facility] Comment on above: Performed By: #### L 100.0100, L500.4050 ####[facility] [address] [place], [address] Absolute Neut 8.2 X10 3/uL High 2.0-7.7 [facility] Comment on above: Performed By: #### L 100.0100, L500.4050 ####[facility] [address] [place], [address] Basophils/100 WBC (Bld) 0.3 % Normal 0-1 [facility] Comment on above: Performed By: #### L 100.0100, L500.4050 ####[facility] [address] [place], [address] Eosinophils/100 WBC (Bld) 3.2 % Normal 0-5 [facility] Comment on above: Performed By: #### L 100.0100, L500.4050 ####[facility] [address] [place], [address] Erythrocyte distribution width (RBC) [Ratio] 13.6 % Normal 11.6-14.6 [facility] Comment on above: Performed By: #### L 100.0100, L500.4050 ####[facility] [address] [place], [address] Hematocrit (Bld) [Volume fraction] 25.7 % Low 37-47 [facility] Comment on above: Performed By: #### L 100.0100, L500.4050 ####[facility] [address] [place], [address] Hemoglobin (Bld) [Mass/Vol] 8.7 g/dL Low 12.0-15.0 [facility] Comment on above: Performed By: #### L 100.0100, L500.4050 ####[facility] [address] [place], [address] IG% 1.200 High 0.0-0.9 [facility] Comment on above: Result Comment: IG% - Immature Granulocytes (promyelocytes, myelocytes andmetamyelocytes) > 1% indicates that a LEFT SHIFT is Present. Performed By: #### L 100.0100, L500.4050 ####[facility] [address] [place], [address] Lymphocytes/100 WBC (Bld) 10.7 % Low 19-41 [facility] Comment on above: Performed By: #### L 100.0100, L500.4050 ####[facility] [address] [place], [address] MCH (RBC) [Entitic mass] 30.7 pg Normal 27.0-32.0 [facility] Comment on above: Performed By: #### L 100.0100, L500.4050 ####[facility] [address] [place], [address] MCHC (RBC) [Mass/Vol] 33.9 g/dL Normal 32-36 [facility] Comment on above: Performed By: #### L 100.0100, L500.4050 ####[facility] [address] [place], [address] MCV (RBC) [Entitic vol] 90.8 fL Normal 81-99 [facility] Comment on above: Performed By: #### L 100.0100, L500.4050 ####[facility] [address] [place], [address] Monocytes/100 WBC (Bld) 7.1 % Normal 0-10 [facility] Comment on above: Performed By: #### L 100.0100, L500.4050 ####[facility] [address] [place], [address] Neutrophils/100 WBC (Bld) 77.5 % High 47-70 [facility] Comment on above: Performed By: #### L 100.0100, L500.4050 ####[facility] [address] [place], [address] Nucleated RBC (Bld) [#/Vol] 1.7 10*3/uL Normal 0-5 [facility] Comment on above: Performed By: #### L 100.0100, L500.4050 ####[facility] [address] [place], [address] Platelet mean volume (Bld) [Entitic vol] 10.6 fL Normal 6.2-12.0 [facility] Comment on above: Performed By: #### L 100.0100, L500.4050 ####[facility] [address] [place], [address] Platelets (Bld) [#/Vol] 285 10*3/uL Normal 150-450 [facility] Comment on above: Performed By: #### L 100.0100, L500.4050 ####[facility] [address] [place], [address] RBC (Bld) [#/Vol] 2.83 10*6/uL Low 4.2-5.4 [facility] Comment on above: Performed By: #### L 100.0100, L500.4050 ####[facility] [address] [place], [address] RDW SD 45.0 fl High 35.1-43.9 [facility] Comment on above: Performed By: #### L 100.0100, L500.4050 ####[facility] [address] [place], [address] WBC (Bld) [#/Vol] 10.6 10*3/uL Normal 4.4-11.0 [facility] Comment on above: Performed By: #### L 100.0100, L500.4050 ####[facility] [address] [place], [address] Absolute Lymph 2.09 X10 3/uL Normal 0.83-4.51 [facility] Comment on above: Performed By: #### L 100.0100, L300.8000, L500.4050 ####[facility] [address] [place], [address] Absolute Neut 6.7 X10 3/uL Normal 2.0-7.7 [facility] Comment on above: Performed By: #### L 100.0100, L300.8000, L500.4050 ####[facility] [address] [place], [address] Basophils/100 WBC (Bld) 0.4 % Normal 0-1 [facility] Comment on above: Performed By: #### L 100.0100, L300.8000, L500.4050 ####[facility] [address] [place], [address] Eosinophils/100 WBC (Bld) 4.0 % Normal 0-5 [facility] Comment on above: Performed By: #### L 100.0100, L300.8000, L500.4050 ####[facility] [address] [place], [address] Erythrocyte distribution width (RBC) [Ratio] 13.7 % Normal 11.6-14.6 [facility] Comment on above: Performed By: #### L 100.0100, L300.8000, L500.4050 ####[facility] [address] [place], [address] Hematocrit (Bld) [Volume fraction] 24.0 % Low 37-47 [facility] Comment on above: Performed By: #### L 100.0100, L300.8000, L500.4050 ####[facility] [address] [place], [address] Hemoglobin (Bld) [Mass/Vol] 8.1 g/dL Low 12.0-15.0 [facility] Comment on above: Performed By: #### L 100.0100, L300.8000, L500.4050 ####[facility] [address] [place], [address] IG% 1.400 High 0.0-0.9 [facility] Comment on above: Result Comment: IG% - Immature Granulocytes (promyelocytes, myelocytes andmetamyelocytes) > 1% indicates that a LEFT SHIFT is Present. Performed By: #### L 100.0100, L300.8000, L500.4050 ####[facility] [address] [place], [address] Lymphocytes/100 WBC (Bld) 20.9 % Normal 19-41 [facility] Comment on above: Performed By: #### L 100.0100, L300.8000, L500.4050 ####[facility] [address] [place], [id number] MCH (RBC) [Entitic mass] 30.8 pg Normal 27.0-32.0 [facility] Comment on above: Performed By: #### L 100.0100, L300.8000, L500.4050 ####[facility] [address] [place], [address] MCHC (RBC) [Mass/Vol] 33.8 g/dL Normal 32-36 [facility] Comment on above: Performed By: #### L 100.0100, L300.8000, L500.4050 ####[facility] [address] [place], [address] MCV (RBC) [Entitic vol] 91.3 fL Normal 81-99 [facility] Comment on above: Performed By: #### L 100.0100, L300.8000, L500.4050 ####[facility] [address] [place], [address] Monocytes/100 WBC (Bld) 6.6 % Normal 0-10 [facility] Comment on above: Performed By: #### L 100.0100, L300.8000, L500.4050 ####[facility] [address] [place], [address] Neutrophils/100 WBC (Bld) 66.7 % Normal 47-70 [facility] Comment on above: Performed By: #### L 100.0100, L300.8000, L500.4050 ####[facility] [address] [place], [address] Nucleated RBC (Bld) [#/Vol] 1.7 10*3/uL Normal 0-5 [facility] Comment on above: Performed By: #### L 100.0100, L300.8000, L500.4050 ####[facility] [address] [place], [address] Platelet mean volume (Bld) [Entitic vol] 10.7 fL Normal 6.2-12.0 [facility] Comment on above: Performed By: #### L 100.0100, L300.8000, L500.4050 ####[facility] [address] [place], [address] Platelets (Bld) [#/Vol] 240 10*3/uL Normal 150-450 [facility] Comment on above: Performed By: #### L 100.0100, L300.8000, L500.4050 ####[facility] [address] [place], [address] RBC (Bld) [#/Vol] 2.63 10*6/uL Low 4.2-5.4 [facility] [place] [facility] Comment on above: Performed By: #### L 100.0100, L300.8000, L500.4050 ####[facility] [address] [place], [address] RDW SD 44.5 fl High 35.1-43.9 [facility] Comment on above: Performed By: #### L 100.0100, L300.8000, L500.4050 ####[facility] [address] [place], [address] WBC (Bld) [#/Vol] 10.0 10*3/uL Normal 4.4-11.0 [facility] Comment on above: Performed By: #### L 100.0100, L300.8000, L500.4050 ####[facility] [address] [place], [address] CTA Chest W/WO Contraston CTA Chest W/WO Contrast Normal [facility] Comprehensive Metabolic Prof ilon 03-15-2025 Albumin [Mass/Vol] 3.3 g/dL Low 3.5-5.0 [facility] Comment on above: Performed By: #### L 100.0100, L500.4050 ####[facility] [address] [place], [address] Albumin/Globulin [Mass ratio] 1.1 {ratio} Normal 0.9-2.4 [facility] Comment on above: Performed By: #### L 100.0100, L500.4050 ####[facility] [address] [place], [address] ALK PHOS 116 U/L High 35-104 [facility] Comment on above: Performed By: #### L 100.0100, L500.4050 ####[facility] [address] [place], [address] ALT [Catalytic activity/Vol] 53 U/L High <=34 [facility] Comment on above: Performed By: #### L 100.0100, L500.4050 ####[facility] [address] [place], [address] AST [Catalytic activity/Vol] 61 U/L High <=31 [facility] Comment on above: Result Comment: Hemo lysis present, Results??could be affected.?? Performed By: #### L 100.0100, L500.4050 ####[facility] [address] [place], [address] Bilirubin [Mass/Vol] 0.26 mg/dL Normal 0.00-1.30 [facility] Comment on above: Performed By: #### L 100.0100, L500.4050 ####[facility] [address] [place], [address] BUN/CRE 10.1 RATIO Normal 10-20 [facility] Comment on above: Performed By: #### L 100.0100, L500.4050 ####[facility] [address] [place], [address] Calcium [Mass/Vol] 9.1 mg/dL Normal 7.6-11.0 [facility] Comment on above: Performed By: #### L 100.0100, L500.4050 ####[facility] [address] [place], [address] Chloride [Moles/Vol] 100 mmol/L Normal 98-108 [facility] Comment on above: Performed By: #### L 100.0100, L500.4050 ####[facility] [address] [place], [address] CO2 [Moles/Vol] 27.3 mmol/L Normal 21.0-32.0 [facility] Comment on above: Performed By: #### L 100.0100, L500.4050 ####[facility] [address] [place], [address] Creatinine [Mass/Vol] 0.68 mg/dL Low 0.70-1.20 [facility] Comment on above: Performed By: #### L 100.0100, L500.4050 ####[facility] [address] [place], [address] ECRCL 166.33 ml/min Normal 50-250 [facility] Comment on above: Performed By: #### L 100.0100, L500.4050 ####[facility] [address] [place], [address] GAP 12 Normal 5-15 [facility] Comment on above: Performed By: #### L 100.0100, L500.4050 ####[facility] [address] [place], [address] GFR/1.73 sq M.predicted among non-blacks MDRD (S/P/Bld) [Vol rate/Area] 125 mL/min/{1.73_m2} Normal >60 [facility] Comment on above: Result Comment: mL/m in/1.73m2 CKD-EPI Creatinine Equation (2020) Performed By: #### L 100.0100, L500.4050 ####[facility] [address] [place], [address] Globulin (S) [Mass/Vol] 2.9 g/dL Normal 2.2-4.2 [facility] Comment on above: Performed By: #### L 100.0100, L500.4050 ####[facility] [address] [place], [address] Glucose [Mass/Vol] 90 mg/dL Normal 70-99 [facility] Comment on above: Performed By: #### L 100.0100, L500.4050 ####[facility] [address] [place], [address] Potassium [Moles/Vol] 3.7 mmol/L Normal 3.3-5.1 [facility] Comment on above: Result Comment: Hemo lysis present, Results??could be affected.?? Performed By: #### L 100.0100, L500.4050 ####[facility] [address] [place], [address] Sodium [Moles/Vol] 139 mmol/L Normal 133-145 [facility] Comment on above: Performed By: #### L 100.0100, L500.4050 ####[facility] [address] [place], [address] T PROT 6.1 g/dL Normal 5.9-8.4 [facility] Comment on above: Performed By: #### L 100.0100, L500.4050 ####[facility] [address] [place], [address] Urea nitrogen [Mass/Vol] 7 mg/dL Normal 4-19 [facility] Comment on above: Performed By: #### L 100.0100, L500.4050 ####[facility] [address] [place], [address] Albumin [Mass/Vol] 3.1 g/dL Low 3.5-5.0 [facility] Comment on above: Performed By: #### L 100.0100, L300.8000, L500.4050 ####[facility] [address] [place], [address] Albumin/Globulin [Mass ratio] 1.2 {ratio} Normal 0.9-2.4 [facility] Comment on above: Performed By: #### L 100.0100, L300.8000, L500.4050 ####[facility] [address] [place], [id number] ALK PHOS 107 U/L High 35-104 [facility] Comment on above: Performed By: #### L 100.0100, L300.8000, L500.4050 ####[facility] [address] [place], [address] ALT [Catalytic activity/Vol] 49 U/L High <=34 [facility] Comment on above: Performed By: #### L 100.0100, L300.8000, L500.4050 ####[facility] [address] [place], [address] AST [Catalytic activity/Vol] 56 U/L High <=31 [facility] Comment on above: Performed By: #### L 100.0100, L300.8000, L500.4050 ####[facility] [address] [place], [address] Bilirubin [Mass/Vol] 0.18 mg/dL Normal 0.00-1.30 [facility] Comment on above: Performed By: #### L 100.0100, L300.8000, L500.4050 ####[facility] [address] [place], [address] BUN/CRE 10.5 RATIO Normal 10-20 [facility] Comment on above: Performed By: #### L 100.0100, L300.8000, L500.4050 ####[facility] [address] [place], [address] Calcium [Mass/Vol] 9.4 mg/dL Normal 7.6-11.0 [facility] Comment on above: Performed By: #### L 100.0100, L300.8000, L500.4050 ####[facility] [address] [place], [address] Chloride [Moles/Vol] 105 mmol/L Normal 98-108 [facility] Comment on above: Performed By: #### L 100.0100, L300.8000, L500.4050 ####[facility] [address] [place], [address] CO2 [Moles/Vol] 22.7 mmol/L Normal 21.0-32.0 [facility] Comment on above: Performed By: #### L 100.0100, L300.8000, L500.4050 ####[facility] [address] [place], [address] Creatinine [Mass/Vol] 0.66 mg/dL Low 0.70-1.20 [facility] Comment on above: Performed By: #### L 100.0100, L300.8000, L500.4050 ####[facility] [address] [place], [address] ECRCL 171.37 ml/min Normal 50-250 [facility] Comment on above: Performed By: #### L 100.0100, L300.8000, L500.4050 ####[facility] [address] [place], [address] GAP 12 Normal 5-15 [facility] Comment on above: Performed By: #### L 100.0100, L300.8000, L500.4050 ####[facility] [address] [place], [address] GFR/1.73 sq M.predicted among non-blacks MDRD (S/P/Bld) [Vol rate/Area] 127 mL/min/{1.73_m2} Normal >60 [facility] Comment on above: Result Comment: mL/m in/1.73m2 CKD-EPI Creatinine Equation (2020) Performed By: #### L 100.0100, L300.8000, L500.4050 ####[facility] [address] [place], [address] Globulin (S) [Mass/Vol] 2.5 g/dL Normal 2.2-4.2 [facility] Comment on above: Performed By: #### L 100.0100, L300.8000, L500.4050 ####[facility] [address] [place], [address] Glucose [Mass/Vol] 84 mg/dL Normal 70-99 [facility] Comment on above: Performed By: #### L 100.0100, L300.8000, L500.4050 ####[facility] [address] [place], [address] Potassium [Moles/Vol] 3.9 mmol/L Normal 3.3-5.1 [facility] Comment on above: Performed By: #### L 100.0100, L300.8000, L500.4050 ####[facility] [address] [place], [address] Sodium [Moles/Vol] 140 mmol/L Normal 133-145 [facility] Comment on above: Performed By: #### L 100.0100, L300.8000, L500.4050 ####[facility] [address] [place], [address] T PROT 5.6 g/dL Low 5.9-8.4 [facility] Comment on above: Performed By: #### L 100.0100, L300.8000, L500.4050 ####[facility] [address] [place], [address] Urea nitrogen [Mass/Vol] 7 mg/dL Normal 4-19 [facility] Comment on above: Performed By: #### L 100.0100, L300.8000, L500.4050 ####[facility] [address] [place], [address] Consultation - Cardiologyon 03-15-2025 Consultation - Cardiology Normal [facility] D-Dimer Quantitative (DVT/PE )on 03-15-2025 D-DIMER QUANT 2.64 FEU/ug/m Invalid Interpretation Code 0.27-0.49 [facility] Comment on above: Result Comment: D-Di wendi ELEVATED (>0.49): Additional studies and clinicalassessments are indicated to conclude diagnosis of:Deep Vein Thrombosis (DVT) or Pulmonary Embolism (PE)CRITICAL VALUE CALLED TO DRU DICKSOND1 0359 Gianna Benites.RESULTS READ BACK BY SAME. Performed By: #### L 100.0100, L300.8000, L500.4050 ####[facility] [address] [place], [address] Echo Completeon 03-15-2025 Echo Complete Normal [facility] Fibrinogenon 03-15-2025 FIBRINOGEN 403 mg/dl Normal 203-444 [facility] Comment on above: Performed By: #### L 300.4310, L300.4700, L300.3900 ####[facility] [address] 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, [address] Pro- Brain NATRIURETIC PEPTI Baltazar 03-15-2025 Natriuretic peptide B (Bld) [Mass/Vol] 641 pg/mL High <=450 [facility] Comment on above: Result Comment: Hear t Failure Unlikely: < 300 pg/mLHeart Failure Likely< 50 Years: > 450 pg/mL50-75 Years: > 900 pg/mL>75 Years: > 1800 pg/mL Performed By: #### L 503.7503 ####[facility] [address] [place], [address] Prothrombin Time w/INRon INR Coag (PPP) [Relative time] 0.9 {INR} Normal [facility] Comment on above: Performed By: #### L 300.4310, L300.4700, L300.3900 ####[facility] [address] [place], [address] PT Coag (PPP) [Time] 12.3 s Normal 11.7-14.9 [facility] Comment on above: Performed By: #### L 300.4310, L300.4700, L300.3900 ####[facility] [address] [place], [address] Bedside Glucoseon 03-12-2025 FINGERSTICK GLU 86 mg/dL Normal 74-106 [facility] Comment on above: Result Comment: VERITO HUMPHRIES OF PATIENT CARE PER NURSING PROTOCOL Performed By: #### L 501.080 ####[facility] [address] [place], [address] CBC W/Diff, Automatedon 03-01 Absolute Lymph 1.49 X10 3/uL Normal 0.83-4.51 [facility] Comment on above: Performed By: #### L 100.0100 ####[facility] [address] [place], [address] Absolute Neut 17.0 X10 3/uL High 2.0-7.7 [facility] Comment on above: Performed By: #### L 100.0100 ####[facility] [address] [place], [address] Basophils/100 WBC (Bld) 0.1 % Normal 0-1 [facility] Comment on above: Performed By: #### L 100.0100 ####[facility] [address] [place], [address] Eosinophils/100 WBC (Bld) 0.2 % Normal 0-5 [facility] Comment on above: Performed By: #### L 100.0100 ####[facility] [address] [place], [address] Erythrocyte distribution width (RBC) [Ratio] 13.3 % Normal 11.6-14.6 [facility] Comment on above: Performed By: #### L 100.0100 ####[facility] [address] [place], [address] Hematocrit (Bld) [Volume fraction] 23.2 % Low 37-47 [facility] Comment on above: Performed By: #### L 100.0100 ####[facility] [address] [place], [address] Hemoglobin (Bld) [Mass/Vol] 8.2 g/dL Low 12.0-15.0 [facility] Comment on above: Performed By: #### L 100.0100 ####[facility] [address] [place], [address] IG% 0.800 Normal 0.0-0.9 [facility] Comment on above: Result Comment: IG% - Immature Granulocytes (promyelocytes, myelocytes andmetamyelocytes) > 1% indicates that a LEFT SHIFT is Present. Performed By: #### L 100.0100 ####[facility] [address] [place], [address] Lymphocytes/100 WBC (Bld) 7.6 % Low 19-41 [facility] Comment on above: Performed By: #### L 100.0100 ####[facility] [address] [place], [address] MCH (RBC) [Entitic mass] 31.1 pg Normal 27.0-32.0 [facility] Comment on above: Performed By: #### L 100.0100 ####[facility] [address] [place], [address] MCHC (RBC) [Mass/Vol] 35.3 g/dL Normal 32-36 [facility] Comment on above: Performed By: #### L 100.0100 ####[facility] [address] [place], [address] MCV (RBC) [Entitic vol] 87.9 fL Normal 81-99 [facility] Comment on above: Performed By: #### L 100.0100 ####[facility] [address] [place], [address] Monocytes/100 WBC (Bld) 4.5 % Normal 0-10 [facility] Comment on above: Performed By: #### L 100.0100 ####[facility] [address] [place], [address] Neutrophils/100 WBC (Bld) 86.8 % High 47-70 [facility] Comment on above: Performed By: #### L 100.0100 ####[facility] [address] [place], [address] Nucleated RBC (Bld) [#/Vol] 0 10*3/uL Normal 0-5 [facility] Comment on above: Performed By: #### L 100.0100 ####[facility] [address] [place], [address] Platelet mean volume (Bld) [Entitic vol] 11.9 fL Normal 6.2-12.0 [facility] Comment on above: Performed By: #### L 100.0100 ####[facility] [address] [place], [address] Platelets (Bld) [#/Vol] 187 10*3/uL Normal 150-450 [facility] Comment on above: Performed By: #### L 100.0100 ####[facility] [address] [place], [address] RBC (Bld) [#/Vol] 2.64 10*6/uL Low 4.2-5.4 [facility] Comment on above: Performed By: #### L 100.0100 ####[facility] [address] [place], [address] RDW SD 41.9 fl Normal 35.1-43.9 [facility] Comment on above: Performed By: #### L 100.0100 ####[facility] [address] [place], [address] WBC (Bld) [#/Vol] 19.6 10*3/uL High 4.4-11.0 [facility] Comment on above: Performed By: #### L 100.0100 ####[facility] [address] [place], [address] Absolute Lymph 1.56 X10 3/uL Normal 0.83-4.51 [facility] Comment on above: Order Comment: Comme nts: First day Performed By: #### L 100.0100, L500.4050 ####[facility] [address] [place], [address] Absolute Neut 16.8 X10 3/uL High 2.0-7.7 [facility] Comment on above: Order Comment: Comme nts: First day Performed By: #### L 100.0100, L500.4050 ####[facility] [address] [place], [address] Basophils/100 WBC (Bld) 0.2 % Normal 0-1 [facility] Comment on above: Order Comment: Comme nts: First day Performed By: #### L 100.0100, L500.4050 ####[facility] [address] [place], [address] Eosinophils/100 WBC (Bld) 0.1 % Normal 0-5 [facility] Comment on above: Order Comment: Comme nts: First day Performed By: #### L 100.0100, L500.4050 ####[facility] [address] [place], [address] Erythrocyte distribution width (RBC) [Ratio] 13.2 % Normal 11.6-14.6 [facility] Comment on above: Order Comment: Comme nts: First day Performed By: #### L 100.0100, L500.4050 ####[facility] [address] [place], [address] Hematocrit (Bld) [Volume fraction] 22.5 % Low 37-47 [facility] Comment on above: Order Comment: Comme nts: First day Performed By: #### L 100.0100, L500.4050 ####[facility] [address] [place], [address] Hemoglobin (Bld) [Mass/Vol] 8.0 g/dL Low 12.0-15.0 [facility] Comment on above: Order Comment: Comme nts: First day Performed By: #### L 100.0100, L500.4050 ####[facility] [address] [place], [address] IG% 0.500 Normal 0.0-0.9 [facility] Comment on above: Order Comment: Comme nts: First day Result Comment: IG% - Immature Granulocytes (promyelocytes, myelocytes andmetamyelocytes) > 1% indicates that a LEFT SHIFT is Present. Performed By: #### L 100.0100, L500.4050 ####[facility] [address] [place], [address] Lymphocytes/100 WBC (Bld) 8.0 % Low 19-41 [facility] Comment on above: Order Comment: Comme nts: First day Performed By: #### L 100.0100, L500.4050 ####[facility] [address] [place], [address] MCH (RBC) [Entitic mass] 31.4 pg Normal 27.0-32.0 [facility] Comment on above: Order Comment: Comme nts: First day Performed By: #### L 100.0100, L500.4050 ####[facility] [address] [place], [address] MCHC (RBC) [Mass/Vol] 35.6 g/dL Normal 32-36 [facility] Comment on above: Order Comment: Comme nts: First day Performed By: #### L 100.0100, L500.4050 ####[facility] [address] [place], [address] MCV (RBC) [Entitic vol] 88.2 fL Normal 81-99 [facility] Comment on above: Order Comment: Comme nts: First day Performed By: #### L 100.0100, L500.4050 ####[facility] [address] [place], [address] Monocytes/100 WBC (Bld) 4.9 % Normal 0-10 [facility] Comment on above: Order Comment: Comme nts: First day Performed By: #### L 100.0100, L500.4050 ####[facility] [address] [place], [address] Neutrophils/100 WBC (Bld) 86.3 % High 47-70 [facility] Comment on above: Order Comment: Comme nts: First day Performed By: #### L 100.0100, L500.4050 ####[facility] [address] [place], [address] Nucleated RBC (Bld) [#/Vol] 0 10*3/uL Normal 0-5 [facility] Comment on above: Order Comment: Comme nts: First day Performed By: #### L 100.0100, L500.4050 ####[facility] [address] [place], [address] Platelet mean volume (Bld) [Entitic vol] 11.5 fL Normal 6.2-12.0 [facility] Comment on above: Order Comment: Comme nts: First day Performed By: #### L 100.0100, L500.4050 ####[facility] [address] [place], [address] Platelets (Bld) [#/Vol] 168 10*3/uL Normal 150-450 [facility] Comment on above: Order Comment: Comme nts: First day Performed By: #### L 100.0100, L500.4050 ####[facility] [address] [place], [address] RBC (Bld) [#/Vol] 2.55 10*6/uL Low 4.2-5.4 [facility] [place] [facility] Comment on above: Order Comment: Comme nts: First day Performed By: #### L 100.0100, L500.4050 ####[facility] [address] [place], [address] RDW SD 42.5 fl Normal 35.1-43.9 [facility] Comment on above: Order Comment: Comme nts: First day Performed By: #### L 100.0100, L500.4050 ####[facility] [address] [place], [address] WBC (Bld) [#/Vol] 19.5 10*3/uL High 4.4-11.0 [facility] [facility] Comment on above: Order Comment: Comme nts: First day Performed By: #### L 100.0100, L500.4050 ####[facility] [address] [place], [address] Comprehensive Metabolic Prof ilon 03-12-2025 Albumin [Mass/Vol] 2.3 g/dL Low 3.5-5.0 [facility] Comment on above: Performed By: #### L 100.0100, L500.4050 ####[facility] [address] [place], [address] Albumin/Globulin [Mass ratio] 1.2 {ratio} Normal 0.9-2.4 [facility] Comment on above: Performed By: #### L 100.0100, L500.4050 ####[facility] [address] [place], [address] ALK PHOS 97 U/L Normal 35-104 [facility] Comment on above: Performed By: #### L 100.0100, L500.4050 ####[facility] [address] [place], [address] ALT [Catalytic activity/Vol] 22 U/L Normal <=34 [facility] Comment on above: Performed By: #### L 100.0100, L500.4050 ####[facility] [address] [place], [address] AST [Catalytic activity/Vol] 24 U/L Normal <=31 [facility] Comment on above: Performed By: #### L 100.0100, L500.4050 ####[facility] [address] [place], [address] Bilirubin [Mass/Vol] 0.17 mg/dL Normal 0.00-1.30 [facility] Comment on above: Performed By: #### L 100.0100, L500.4050 ####[facility] [address] [place], [address] BUN/CRE 6.3 RATIO Low 10-20 [facility] Comment on above: Performed By: #### L 100.0100, L500.4050 ####[facility] [address] [place], [address] Calcium [Mass/Vol] 6.6 mg/dL Low 7.6-11.0 [facility] Comment on above: Performed By: #### L 100.0100, L500.4050 ####[facility] [address] [place], [address] Chloride [Moles/Vol] 101 mmol/L Normal 98-108 [facility] Comment on above: Performed By: #### L 100.0100, L500.4050 ####[facility] [address] [place], [address] CO2 [Moles/Vol] 21.1 mmol/L Normal 21.0-32.0 [facility] Comment on above: Performed By: #### L 100.0100, L500.4050 ####[facility] [address] [place], [address] Creatinine [Mass/Vol] 0.75 mg/dL Normal 0.70-1.20 [facility] Comment on above: Performed By: #### L 100.0100, L500.4050 ####[facility] [address] [place], [address] ECRCL 150.80 ml/min Normal 50-250 [facility] Comment on above: Performed By: #### L 100.0100, L500.4050 ####[facility] [address] [place], [address] GAP 9 Normal 5-15 [facility] Comment on above: Performed By: #### L 100.0100, L500.4050 ####[facility] [address] [place], [address] GFR/1.73 sq M.predicted among non-blacks MDRD (S/P/Bld) [Vol rate/Area] 114 mL/min/{1.73_m2} Normal >60 [facility] Comment on above: Result Comment: mL/m in/1.73m2 CKD-EPI Creatinine Equation (2020) Performed By: #### L 100.0100, L500.4050 ####[facility] [address] [place], [address] Globulin (S) [Mass/Vol] 1.9 g/dL Low 2.2-4.2 [facility] Comment on above: Performed By: #### L 100.0100, L500.4050 ####[facility] [address] [place], [address] Glucose [Mass/Vol] 106 mg/dL High 70-99 [facility] Comment on above: Performed By: #### L 100.0100, L500.4050 ####[facility] [address] [place], [address] Potassium [Moles/Vol] 3.4 mmol/L Normal 3.3-5.1 [facility] Comment on above: Performed By: #### L 100.0100, L500.4050 ####[facility] [address] [place], [address] Sodium [Moles/Vol] 131 mmol/L Low 133-145 [facility] Comment on above: Performed By: #### L 100.0100, L500.4050 ####[facility] [address] [place], [address] T PROT 4.2 g/dL Low 5.9-8.4 [facility] Comment on above: Performed By: #### L 100.0100, L500.4050 ####[facility] [address] [place], [address] Urea nitrogen [Mass/Vol] 5 mg/dL Normal 4-19 [facility] Comment on above: Performed By: #### L 100.0100, L500.4050 ####[facility] [address] [place], [address] Magnesiumon 03-12-2025 Magnesium [Mass/Vol] 7.1 mg/dL Invalid Interpretation Code 1.5-2.2 [facility] Comment on above: Order Comment: Comme nts: to be run as stat Result Comment: Crit ical Result(s) Called at 0954: by: CHIQUIS RICHARDS. ??Results read back by same. Performed By: #### L 501.5200 ####[facility] [address] [place], [address] BRho(D) IGon 03-11-2025 Rho(D) IG Normal [facility] Comment on above: Result Comment: RH10 7134 Rho(D) IG PRSMD TRFSD 03/11/25 2158 Performed By: #### B Rho(D) IG ####[facility] [address] [place], [address] Bedside Glucoseon 03-11-2025 FINGERSTICK GLU 126 mg/dL High 74-106 [facility] Comment on above: Result Comment: VERITO HUMPHRIES OF PATIENT CARE PER NURSING PROTOCOL Performed By: #### L 501.080 ####[facility] [address] [place], [address] FINGERSTICK GLU 89 mg/dL Normal 74-106 [facility] Comment on above: Result Comment: VERITO GEMENT OF PATIENT CARE PER NURSING PROTOCOL Performed By: #### L 501.080 ####[facility] [address] [place], [address] FINGERSTICK GLU 87 mg/dL Normal 74-106 [facility] Comment on above: Result Comment: VERITO GEMENT OF PATIENT CARE PER NURSING PROTOCOL Performed By: #### L 501.080 ####[facility] [address] [place], [address] FINGERSTICK GLU 82 mg/dL Normal 74-106 [facility] Comment on above: Result Comment: VERITO GEMENT OF PATIENT CARE PER NURSING PROTOCOL Performed By: #### L 501.080 ####[facility] [address] [place], [address] FINGERSTICK GLU 81 mg/dL Normal 74-106 [facility] Comment on above: Result Comment: VERITO GEMENT OF PATIENT CARE PER NURSING PROTOCOL Performed By: #### L 501.080 ####[facility] [address] [place], [address] CBC W/Diff, Automatedon 10-1 Absolute Lymph 1.07 X10 3/uL Normal 0.83-4.51 [facility] Comment on above: Performed By: #### L 100.0100 ####[facility] [address] [place], [address] Absolute Neut 13.8 X10 3/uL High 2.0-7.7 [facility] Comment on above: Performed By: #### L 100.0100 ####[facility] [address] [place], [address] Basophils/100 WBC (Bld) 0.3 % Normal 0-1 [facility] Comment on above: Performed By: #### L 100.0100 ####[facility] [address] [place], [address] Eosinophils/100 WBC (Bld) 0.1 % Normal 0-5 [facility] Comment on above: Performed By: #### L 100.0100 ####[facility] [address] [place], [address] Erythrocyte distribution width (RBC) [Ratio] 13.2 % Normal 11.6-14.6 [facility] Comment on above: Performed By: #### L 100.0100 ####[facility] [address] [place], [address] Hematocrit (Bld) [Volume fraction] 32.0 % Low 37-47 [facility] Comment on above: Performed By: #### L 100.0100 ####[facility] [address] [place], [address] Hemoglobin (Bld) [Mass/Vol] 10.9 g/dL Low 12.0-15.0 [facility] Comment on above: Performed By: #### L 100.0100 ####[facility] [address] [place], [address] IG% 0.400 Normal 0.0-0.9 [facility] Comment on above: Result Comment: IG% - Immature Granulocytes (promyelocytes, myelocytes andmetamyelocytes) > 1% indicates that a LEFT SHIFT is Present. Performed By: #### L 100.0100 ####[facility] [address] [place], [address] Lymphocytes/100 WBC (Bld) 6.8 % Low 19-41 [facility] Comment on above: Performed By: #### L 100.0100 ####[facility] [address] [place], [address] MCH (RBC) [Entitic mass] 30.4 pg Normal 27.0-32.0 [facility] Comment on above: Performed By: #### L 100.0100 ####[facility] [address] [place], [address] MCHC (RBC) [Mass/Vol] 34.1 g/dL Normal 32-36 [facility] Comment on above: Performed By: #### L 100.0100 ####[facility] [address] [place], [address] MCV (RBC) [Entitic vol] 89.1 fL Normal 81-99 [facility] Comment on above: Performed By: #### L 100.0100 ####[facility] [address] [place], [address] Monocytes/100 WBC (Bld) 5.5 % Normal 0-10 [facility] Comment on above: Performed By: #### L 100.0100 ####[facility] [address] [place], [address] Neutrophils/100 WBC (Bld) 86.9 % High 47-70 [facility] Comment on above: Performed By: #### L 100.0100 ####[facility] [address] [place], [address] Nucleated RBC (Bld) [#/Vol] 0.1 10*3/uL Normal 0-5 [facility] Comment on above: Performed By: #### L 100.0100 ####[facility] [address] [place], [address] Platelet mean volume (Bld) [Entitic vol] 11.2 fL Normal 6.2-12.0 [facility] Comment on above: Performed By: #### L 100.0100 ####[facility] [address] [place], [address] Platelets (Bld) [#/Vol] 192 10*3/uL Normal 150-450 [facility] Comment on above: Performed By: #### L 100.0100 ####[facility] [address] [place], [address] RBC (Bld) [#/Vol] 3.59 10*6/uL Low 4.2-5.4 [facility] [place] [facility] Comment on above: Performed By: #### L 100.0100 ####[facility] [address] [place], [address] RDW SD 42.9 fl Normal 35.1-43.9 [facility] Comment on above: Performed By: #### L 100.0100 ####[facility] [address] [place], [address] WBC (Bld) [#/Vol] 15.8 10*3/uL High 4.4-11.0 [facility] [place] [facility] Comment on above: Performed By: #### L 100.0100 ####[facility] [address] [place], [address] Discharge Instructionon 03-01 Discharge Instruction Normal [facility] MR/OB.VAGDELIon 03-11-2025 [facility] Rh Negative Mom Workupon ABO and Rh group Nom (Bld) Blood group A Rh(D) negative Normal [facility] Comment on above: Order Comment: sobeida Kiran00 Performed By: #### B RHNM ####[facility] [address] [place], [address] ABO and Rh group Nom (Bld) Blood group A Rh(D) positive Normal [facility] Comment on above: Order Comment: sobeida Kiran00 Performed By: #### B RHNM ####[facility] [address] [place], [address] DIRECT ANTIGLOB Negative Normal NEGATIVE [facility] Comment on above: Order Comment: petrona Kiranbyboy00 Performed By: #### B RHNM ####[facility] [address] [place], [address] MOM'S ABS Negative Normal [facility] Comment on above: Order Comment: Magno pvckxfxhmbsxu56 Performed By: #### B RHNM ####[facility] [address] [place], [address] SCREEN Negative Normal NEGATIVE [facility] Comment on above: Order Comment: Magno qahltskqapjof33 Performed By: #### B RHNM ####[facility] [address] [place], [address] Type AND Screenon 03-11-2025 Ab SCREEN GEL TNP Normal [facility] Comment on above: Order Comment: Labor Performed By: #### B 41618-0, L100.0100, BTS ####[facility] [address] [place], [address] ABO and Rh group Nom (Bld) Blood group A Rh(D) negative Normal [facility] Comment on above: Order Comment: Labor Performed By: #### B 27366-7, L100.0100, BTS ####[facility] [address] [place], [address] (ROM) Rupture Of Membraneson 03-10-2025 ROM Negative Normal Negative [facility] Comment on above: Result Comment: Amni otic fluid not present indicates No Rupture of FetalMembranes at time of specimen collection. Performed By: #### L 205.1000 ####[facility] [address] [place], [address] AST(SGOT)on 03-10-2025 AST [Catalytic activity/Vol] 61 U/L High <=31 [facility] Comment on above: Result Comment: Hemo lysis present, Results??could be affected.?? Performed By: #### L 501.4405, L501.0900, L501.1105, L501.1400, L100.0500, L501.4100 ####[facility] [address] [place], [address] Abdomen Limitedon 03-10-2025 Abdomen Limited Normal [facility] Alanine Aminotransferas (SGP T)on 03-10-2025 ALT [Catalytic activity/Vol] 37 U/L High <=34 [facility] Comment on above: Performed By: #### L 501.4405, L501.0900, L501.1105, L501.1400, L100.0500, L501.4100 ####[facility] [address] [place], [address] Bedside Glucoseon 03-10-2025 FINGERSTICK GLU 84 mg/dL Normal 74-106 [facility] Comment on above: Result Comment: VERITO GEMENT OF PATIENT CARE PER NURSING PROTOCOL Performed By: #### L 501.080 ####[facility] [address] [place], [address] FINGERSTICK GLU 88 mg/dL Normal 74-106 [facility] Comment on above: Result Comment: VERITO GEMENT OF PATIENT CARE PER NURSING PROTOCOL Performed By: #### L 501.080 ####[facility] [address] [place], [address] CBC W/Diff, Automatedon 03-01 Absolute Neut Normal 2.0-7.7 [facility] Comment on above: Result Comment: DULI RONDA ORDER DOES NOT NEED PER TRESSA NURSE Performed By: #### B 26456-3, L100.0100, BTS ####[facility] [address] [place], [address] HCT Normal 37-47 [facility] Comment on above: Result Comment: DULI RONDA ORDER DOES NOT NEED PER TRESSA NURSE Performed By: #### B 40984-9, L100.0100, BTS ####[facility] [address] [place], [address] HGB Normal 12.0-15.0 [facility] Comment on above: Result Comment: DULI RONDA ORDER DOES NOT NEED PER TRESSA NURSE Performed By: #### B 03590-6, L100.0100, BTS ####[facility] [address] [place], [address] MCH Normal 27.0-32.0 [facility] Comment on above: Result Comment: DULI RONDA ORDER DOES NOT NEED PER TRESSA NURSE Performed By: #### B 33613-7, L100.0100, BTS ####[facility] [address] [place], [address] MCHC Normal 32-36 [facility] Comment on above: Result Comment: DULI RONDA ORDER DOES NOT NEED PER TRESSA NURSE Performed By: #### B 10691-5, L100.0100, BTS ####[facility] [address] [place], [address] MCV Normal 81-99 [facility] Comment on above: Result Comment: DULI RONDA ORDER DOES NOT NEED PER TRESSA NURSE Performed By: #### B 72232-7, L100.0100, BTS ####[facility] [address] [place], [address] NEUT% Normal 47-70 [facility] Comment on above: Result Comment: DULI RONDA ORDER DOES NOT NEED PER TRESSA NURSE Performed By: #### B 86370-6, L100.0100, BTS ####[facility] [address] [place], [address] PLT Normal 150-450 [facility] Comment on above: Result Comment: DULI RONDA ORDER DOES NOT NEED PER TRESSA NURSE Performed By: #### Lore 52006-9, L100.0100, BTS ####[facility] [address] [place], [address] RBC Normal 4.2-5.4 [facility] Comment on above: Result Comment: DULI RONDA ORDER DOES NOT NEED PER TRESSA NURSE Performed By: #### B 18859-8, L100.0100, BTS ####[facility] [address] [place], [address] RDW CV Normal 11.6-14.6 [facility] Comment on above: Result Comment: DULI RONDA ORDER DOES NOT NEED PER TRESSA NURSE Performed By: #### B 49698-9, L100.0100, BTS ####[facility] [address] [place], [address] RDW SD Normal 35.1-43.9 [facility] Comment on above: Result Comment: DULI RONDA ORDER DOES NOT NEED PER TRESSA NURSE Performed By: #### B 37288-1, L100.0100, BTS ####[facility] [address] [place], [address] WBC Normal 4.4-11.0 [facility] Comment on above: Result Comment: DULI RONDA ORDER DOES NOT NEED PER TRESSA NURSE Performed By: #### B 32167-2, L100.0100, BTS ####[facility] [address] [place], [address] CBC-Complete Blood Cnt No Di ffon 03-10-2025 Erythrocyte distribution width (RBC) [Ratio] 13.2 % Normal 11.6-14.6 [facility] Comment on above: Performed By: #### L 501.4405, L501.0900, L501.1105, L501.1400, L100.0500, L501.4100 ####[facility] [address] [place], [address] Hematocrit (Bld) [Volume fraction] 32.4 % Low 37-47 [facility] Comment on above: Performed By: #### L 501.4405, L501.0900, L501.1105, L501.1400, L100.0500, L501.4100 ####[facility] [address] [place], [address] Hemoglobin (Bld) [Mass/Vol] 11.2 g/dL Low 12.0-15.0 [facility] Comment on above: Performed By: #### L 501.4405, L501.0900, L501.1105, L501.1400, L100.0500, L501.4100 ####[facility] [address] [place], [address] MCH (RBC) [Entitic mass] 30.7 pg Normal 27.0-32.0 [facility] Comment on above: Performed By: #### L 501.4405, L501.0900, L501.1105, L501.1400, L100.0500, L501.4100 ####[facility] [address] [place], [address] MCHC (RBC) [Mass/Vol] 34.6 g/dL Normal 32-36 [facility] Comment on above: Performed By: #### L 501.4405, L501.0900, L501.1105, L501.1400, L100.0500, L501.4100 ####[facility] [address] [place], [address] MCV (RBC) [Entitic vol] 88.8 fL Normal 81-99 [facility] Comment on above: Performed By: #### L 501.4405, L501.0900, L501.1105, L501.1400, L100.0500, L501.4100 ####[facility] [address] [place], [address] Platelet mean volume (Bld) [Entitic vol] 11.8 fL Normal 6.2-12.0 [facility] Comment on above: Performed By: #### L 501.4405, L501.0900, L501.1105, L501.1400, L100.0500, L501.4100 ####[facility] [address] [place], [address] Platelets (Bld) [#/Vol] 185 10*3/uL Normal 150-450 [facility] Comment on above: Performed By: #### L 501.4405, L501.0900, L501.1105, L501.1400, L100.0500, L501.4100 ####[facility] [address] [place], [address] RBC (Bld) [#/Vol] 3.65 10*6/uL Low 4.2-5.4 [facility] [place] [facility] Comment on above: Performed By: #### L 501.4405, L501.0900, L501.1105, L501.1400, L100.0500, L501.4100 ####[facility] [address] [place], [address] RDW SD 41.9 fl Normal 35.1-43.9 [facility] Comment on above: Performed By: #### L 501.4405, L501.0900, L501.1105, L501.1400, L100.0500, L501.4100 ####[facility] [address] [place], [address] WBC (Bld) [#/Vol] 7.7 10*3/uL Normal 4.4-11.0 [facility] Comment on above: Performed By: #### L 501.4405, L501.0900, L501.1105, L501.1400, L100.0500, L501.4100 ####[facility] [address] 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 Performed By: #### L 504.2610 ####[facility] [address] [place], [address] M8200.0100on 03-10-2025 M8200.0100 Positive Normal [facility] Comment on above: Performed By: #### M 8200.0100 ####[facility] [address] [place], [address] Natural Resource Manager Office Visit Reporton 03-10-2025 Natural Resource Manager Office Visit Report Normal [facility] Protein+Creatinine Ratio,Uri neon 03-10-2025 PROT:CRE RATIO 222 mg/g CRE High 0-200 [facility] Comment on above: Performed By: #### L 501.4405, L501.0900, L501.1105, L501.1400, L100.0500, L501.4100 ####[facility] [address] [place], [address] Protein (U) [Mass/Vol] 16.8 mg/dL High 0.0-12.0 [facility] Comment on above: Performed By: #### L 501.4405, L501.0900, L501.1105, L501.1400, L100.0500, L501.4100 ####[facility] [address] [place], [address] UR CREAT 75.70 mg/dL Normal 28.00-217.00 [facility] Comment on above: Performed By: #### L 501.4405, L501.0900, L501.1105, L501.1400, L100.0500, L501.4100 ####[facility] [address] [place], [address] Serum Creatinine AND GFRon 1 Creatinine [Mass/Vol] 0.77 mg/dL Normal 0.70-1.20 [facility] Comment on above: Performed By: #### L 501.4405, L501.0900, L501.1105, L501.1400, L100.0500, L501.4100 ####[facility] [address] [place], [address] GFR/1.73 sq M.predicted among non-blacks MDRD (S/P/Bld) [Vol rate/Area] 112 mL/min/{1.73_m2} Normal >60 [facility] Comment on above: Result Comment: mL/m in/1.73m2 CKD-EPI Creatinine Equation (2020) Performed By: #### L 501.4405, L501.0900, L501.1105, L501.1400, L100.0500, L501.4100 ####[facility] [address] [place], [address] Syphilis Antibodieson 2024 Syphilis Abs Non-Reactive Normal Nonreactive [facility] Comment on above: Performed By: #### L 509.8002 ####[facility] [address] [place], [address] Uric Acidon 03-10-2025 URIC 10.7 mg/dL High 2.6-6.0 [facility] Comment on above: Result Comment: The drugs N-Acetylcysteine and Metamizole may falselydepress this assay. Performed By: #### L 501.4405, L501.0900, L501.1105, L501.1400, L100.0500, L501.4100 ####[facility] [address] [place], [address] Urine Drug Screen (VISTA)on 03-10-2025 AMPHETAMINES Negative Normal <1000 ng/mL [facility] Comment on above: Order Comment: THC Performed By: #### L 505.5000 ####[facility] [address] [place], [address] BARBITIURATES Negative Normal < 200 ng/mL [facility] Comment on above: Order Comment: THC Performed By: #### L 505.5000 ####[facility] [address] [facility] [address] BENZODIAZIPINE Negative Normal < 200 ng/mL [facility] Comment on above: Order Comment: THC Performed By: #### L 505.5000 ####[facility] [address] [place] [address] BUP Ur Drug Scr Negative Normal < 200 ng/mL [facility] Comment on above: Order Comment: THC Performed By: #### L 505.5000 ####[facility] [address] [place] [address] COCAINE Negative Normal < 300 ng/mL [facility] Comment on above: Order Comment: THC Performed By: #### L 505.5000 ####[facility] [address] [place] [address] Fentanyl Negative Normal <5 ng/mL [facility] Comment on above: Order Comment: THC Result [...] testmnemonic: UTCA Performed By: #### L 505.5000 ####[facility] [address] [place], [address] METHADONE Negative Normal < 300 ng/mL [facility] Comment on above: Order Comment: THC Performed By: #### L 505.5000 ####[facility] [address] [place], [address] OPIATES Negative Normal < 300 ng/mL [facility] Comment on above: Order Comment: THC Performed By: #### L 505.5000 ####[facility] [address] [place], [address] OXYCODONE Negative Normal < 100 ng/mL [facility] Comment on above: Order Comment: THC Performed By: #### L 505.5000 ####[facility] [address] [place], [address] PCP Negative Normal < 25 ng/mL [facility] Comment on above: Order Comment: THC Performed By: #### L 505.5000 ####[facility] [address] [place], [address] THC Negative Normal < 50 ng/mL [facility] Comment on above: Order Comment: THC Performed By: #### L 505.5000 ####[facility] [address] [place], [address] Bedside Glucoseon 03-07-2025 FINGERSTICK GLU 73 mg/dL Low 74-106 [facility] Comment on above: Result Comment: VERITO HUMPHRIES OF PATIENT CARE PER NURSING PROTOCOL Performed By: #### L 501.080 ####[facility] [address] [place], [address] OB Triage Physician Noteon 1 OB Triage Physician Note Normal [facility] Natural Resource Manager Office Visit Reporton 03-07-2025 Natural Resource Manager Office Visit Report Normal [facility] CBC W/Diff, Automatedon 10-0 Absolute Lymph 0.44 X10 3/uL Low 0.83-4.51 [facility] Comment on above: Performed By: #### L 500.4050, L100.0100 ####[facility] [address] [place], [address] Absolute Neut 9.5 X10 3/uL High 2.0-7.7 [facility] Comment on above: Performed By: #### L 500.4050, L100.0100 ####[facility] [address] [place], [address] Basophils/100 WBC (Bld) 0.4 % Normal 0-1 [facility] Comment on above: Performed By: #### L 500.4050, L100.0100 ####[facility] [address] [place], [address] Eosinophils/100 WBC (Bld) 0.3 % Normal 0-5 [facility] Comment on above: Performed By: #### L 500.4050, L100.0100 ####[facility] [address] [place], [address] Erythrocyte distribution width (RBC) [Ratio] 13.5 % Normal 11.6-14.6 [facility] Comment on above: Performed By: #### L 500.4050, L100.0100 ####[facility] [address] [place], [address] Hematocrit (Bld) [Volume fraction] 34.3 % Low 37-47 [facility] Comment on above: Performed By: #### L 500.4050, L100.0100 ####[facility] [address] [place], [address] Hemoglobin (Bld) [Mass/Vol] 12.1 g/dL Normal 12.0-15.0 [facility] Comment on above: Performed By: #### L 500.4050, L100.0100 ####[facility] [address] [place], [address] IG% 2.300 High 0.0-0.9 [facility] Comment on above: Result Comment: IG% - Immature Granulocytes (promyelocytes, myelocytes andmetamyelocytes) > 1% indicates that a LEFT SHIFT is Present. Performed By: #### L 500.4050, L100.0100 ####[facility] [address] [place], [address] Lymphocytes/100 WBC (Bld) 4.1 % Low 19-41 [facility] Comment on above: Performed By: #### L 500.4050, L100.0100 ####[facility] [address] [place], [address] MCH (RBC) [Entitic mass] 31.8 pg Normal 27.0-32.0 [facility] Comment on above: Performed By: #### L 500.4050, L100.0100 ####[facility] [address] [place], [address] MCHC (RBC) [Mass/Vol] 35.3 g/dL Normal 32-36 [facility] Comment on above: Performed By: #### L 500.4050, L100.0100 ####[facility] [address] [place], [address] MCV (RBC) [Entitic vol] 90.0 fL Normal 81-99 [facility] Comment on above: Performed By: #### L 500.4050, L100.0100 ####[facility] [address] [place], [address] Monocytes/100 WBC (Bld) 3.9 % Normal 0-10 [facility] Comment on above: Performed By: #### L 500.4050, L100.0100 ####[facility] [address] [place], [address] Neutrophils/100 WBC (Bld) 89.0 % High 47-70 [facility] Comment on above: Performed By: #### L 500.4050, L100.0100 ####[facility] [address] [place], [address] Nucleated RBC (Bld) [#/Vol] 0.8 10*3/uL Normal 0-5 [facility] Comment on above: Performed By: #### L 500.4050, L100.0100 ####[facility] [address] [place], [address] Platelet mean volume (Bld) [Entitic vol] 11.2 fL Normal 6.2-12.0 [facility] Comment on above: Performed By: #### L 500.4050, L100.0100 ####[facility] [address] [place], [address] Platelets (Bld) [#/Vol] 172 10*3/uL Normal 150-450 [facility] Comment on above: Performed By: #### L 500.4050, L100.0100 ####[facility] [address] [place], [address] RBC (Bld) [#/Vol] 3.81 10*6/uL Low 4.2-5.4 [facility] [facility] Comment on above: Performed By: #### L 500.4050, L100.0100 ####[facility] [address] [place], [address] RDW SD 43.7 fl Normal 35.1-43.9 [facility] Comment on above: Performed By: #### L 500.4050, L100.0100 ####[facility] [address] [place], [address] WBC (Bld) [#/Vol] 10.7 10*3/uL Normal 4.4-11.0 [facility] [facility] Comment on above: Performed By: #### L 500.4050, L100.0100 ####[facility] [address] [place], [address] Comprehensive Metabolic [facility] 03-05-2025 Albumin [Mass/Vol] 3.3 g/dL Low 3.5-5.0 [facility] Comment on above: Performed By: #### L 500.4050, L100.0100 ####[facility] [address] [place], [address] Albumin/Globulin [Mass ratio] 1.2 {ratio} Normal 0.9-2.4 [facility] Comment on above: Performed By: #### L 500.4050, L100.0100 ####[facility] [address] [place], [address] ALK PHOS 124 U/L High 35-104 [facility] Comment on above: Performed By: #### L 500.4050, L100.0100 ####[facility] [address] [place], [address] ALT [Catalytic activity/Vol] 26 U/L Normal <=34 [facility] Comment on above: Performed By: #### L 500.4050, L100.0100 ####[facility] [address] [place], [address] AST [Catalytic activity/Vol] 55 U/L High <=31 [facility] Comment on above: Performed By: #### L 500.4050, L100.0100 ####[facility] [address] [place], [address] Bilirubin [Mass/Vol] 0.40 mg/dL Normal 0.00-1.30 [facility] Comment on above: Performed By: #### L 500.4050, L100.0100 ####[facility] [address] [place], [address] BUN/CRE 8.6 RATIO Low 10-20 [facility] Comment on above: Performed By: #### L 500.4050, L100.0100 ####[facility] [address] [place], [address] Calcium [Mass/Vol] 9.0 mg/dL Normal 7.6-11.0 [facility] Comment on above: Performed By: #### L 500.4050, L100.0100 ####[facility] [address] [place], [id number] Chloride [Moles/Vol] 102 mmol/L Normal 98-108 [facility] Comment on above: Performed By: #### L 500.4050, L100.0100 ####[facility] [address] [place], [address] CO2 [Moles/Vol] 19.0 mmol/L Low 21.0-32.0 [facility] Comment on above: Performed By: #### L 500.4050, L100.0100 ####[facility] [address] [place], [address] Creatinine [Mass/Vol] 0.76 mg/dL Normal 0.70-1.20 [facility] Comment on above: Performed By: #### L 500.4050, L100.0100 ####[facility] [address] [place], [id number] ECRCL 146.51 ml/min Normal 50-250 [facility] Comment on above: Performed By: #### L 500.4050, L100.0100 ####[facility] [address] [place], [id number] GAP 13 Normal 5-15 [facility] Comment on above: Performed By: #### L 500.4050, L100.0100 ####[facility] [address] [place], [address] GFR/1.73 sq M.predicted among non-blacks MDRD (S/P/Bld) [Vol rate/Area] 113 mL/min/{1.73_m2} Normal >60 [facility] Comment on above: Result Comment: mL/m in/1.73m2 CKD-EPI Creatinine Equation (2020) Performed By: #### L 500.4050, L100.0100 ####[facility] [address] [place], [address] Globulin (S) [Mass/Vol] 2.7 g/dL Normal 2.2-4.2 [facility] Comment on above: Performed By: #### L 500.4050, L100.0100 ####[facility] [address] [place], [address] Glucose [Mass/Vol] 95 mg/dL Normal 70-99 [facility] Comment on above: Performed By: #### L 500.4050, L100.0100 ####[facility] [address] [place], [address] Potassium [Moles/Vol] 4.0 mmol/L Normal 3.3-5.1 [facility] Comment on above: Performed By: #### L 500.4050, L100.0100 ####[facility] [address] [place], [address] Sodium [Moles/Vol] 134 mmol/L Normal 133-145 [facility] Comment on above: Performed By: #### L 500.4050, L100.0100 ####[facility] [address] [place], [address] T PROT 6.0 g/dL Normal 5.9-8.4 [facility] Comment on above: Performed By: #### L 500.4050, L100.0100 ####[facility] [address] [place], [address] Urea nitrogen [Mass/Vol] 7 mg/dL Normal 4-19 [facility] Comment on above: Performed By: #### L 500.4050, L100.0100 ####[facility] [address] [place], [address] Emergency Department Summary on 03-05-2025 Emergency Department Summary Normal [facility] M100.678on 03-05-2025 M100.678 SARS-CoV-2 (COVID 19 ) Negative INFLUENZA A Negative INFLUENZA B Negative RSV PCR Negative Normal [facility] Comment on above: Performed By: #### M 100.678 ####[facility] [address] [place], [address] OB Triage Physician Noteon 1 OB Triage Physician Note Normal [facility] Urinalysis, Completeon 03-05 EPI,SQUAMOUS 0-5 SEEN Normal 5-10 [facility] Comment on above: Order Comment: CLEAN CATCH Performed By: #### L 400.0001 ####[facility] [address] [place], [address] WBC 5-10 SEEN Normal 0-5 [facility] Comment on above: Order Comment: CLEAN CATCH Performed By: #### L 400.0001 ####[facility] [address] [place], [address] BACTERIA 0 SEEN Normal None Seen [facility] Comment on above: Order Comment: CLEAN CATCH Performed By: #### L 400.0001 ####[facility] [address] [place], [address] Mucus Ql (Urine sed) 0 SEEN Normal [facility] Comment on above: Order Comment: CLEAN CATCH Performed By: #### L 400.0001 ####[facility] [address] [place], [address] RBC 0 SEEN Normal 0-5 [facility] Comment on above: Order Comment: CLEAN CATCH Performed By: #### L 400.0001 ####[facility] [address] [place], [address] AST(SGOT)on 03-04-2025 AST [Catalytic activity/Vol] 30 U/L Normal <=31 [facility] Comment on above: Performed By: #### L 501.0900, L501.1400, L501.4100, L501.4405, L100.0500, L501.1105 ####[facility] [address] [place], [address] Alanine Aminotransferas (SGP T)on 03-04-2025 ALT [Catalytic activity/Vol] 16 U/L Normal <=34 [facility] Comment on above: Performed By: #### L 501.0900, L501.1400, L501.4100, L501.4405, L100.0500, L501.1105 ####[facility] [address] [place], [address] CBC-Complete Blood Cnt No Di ffon 03-04-2025 Erythrocyte distribution width (RBC) [Ratio] 13.4 % Normal 11.6-14.6 [facility] Comment on above: Performed By: #### L 501.0900, L501.1400, L501.4100, L501.4405, L100.0500, L501.1105 ####[facility] [address] [place], [address] Hematocrit (Bld) [Volume fraction] 34.6 % Low 37-47 [facility] Comment on above: Performed By: #### L 501.0900, L501.1400, L501.4100, L501.4405, L100.0500, L501.1105 ####[facility] [address] [place], [address] Hemoglobin (Bld) [Mass/Vol] 11.9 g/dL Low 12.0-15.0 [facility] Comment on above: Performed By: #### L 501.0900, L501.1400, L501.4100, L501.4405, L100.0500, L501.1105 ####[facility] [address] [place], [address] MCH (RBC) [Entitic mass] 31.1 pg Normal 27.0-32.0 [facility] Comment on above: Performed By: #### L 501.0900, L501.1400, L501.4100, L501.4405, L100.0500, L501.1105 ####[facility] [address] [place], [address] MCHC (RBC) [Mass/Vol] 34.4 g/dL Normal 32-36 [facility] Comment on above: Performed By: #### L 501.0900, L501.1400, L501.4100, L501.4405, L100.0500, L501.1105 ####[facility] [address] [place], [address] MCV (RBC) [Entitic vol] 90.3 fL Normal 81-99 [facility] Comment on above: Performed By: #### L 501.0900, L501.1400, L501.4100, L501.4405, L100.0500, L501.1105 ####[facility] [address] [place], [address] Platelet mean volume (Bld) [Entitic vol] 11.3 fL Normal 6.2-12.0 [facility] Comment on above: Performed By: #### L 501.0900, L501.1400, L501.4100, L501.4405, L100.0500, L501.1105 ####[facility] [address] [place], [address] Platelets (Bld) [#/Vol] 179 10*3/uL Normal 150-450 [facility] Comment on above: Performed By: #### L 501.0900, L501.1400, L501.4100, L501.4405, L100.0500, L501.1105 ####[facility] [address] [place], [address] RBC (Bld) [#/Vol] 3.83 10*6/uL Low 4.2-5.4 [facility] [facility] Comment on above: Performed By: #### L 501.0900, L501.1400, L501.4100, L501.4405, L100.0500, L501.1105 ####[facility] [address] [place], [address] RDW SD 44.1 fl High 35.1-43.9 [facility] Comment on above: Performed By: #### L 501.0900, L501.1400, L501.4100, L501.4405, L100.0500, L501.1105 ####[facility] [address] [place], [address] WBC (Bld) [#/Vol] 11.4 10*3/uL High 4.4-11.0 [facility] [facility] Comment on above: Performed By: #### L 501.0900, L501.1400, L501.4100, L501.4405, L100.0500, L501.1105 ####[facility] [address] [place], [address] Protein+Creatinine Ratio,Uri neon 03-04-2025 PROT:CRE RATIO 378 mg/g CRE High 0-200 [facility] Comment on above: Performed By: #### L 501.0900, L501.1400, L501.4100, L501.4405, L100.0500, L501.1105 ####[facility] [address] [place], [address] Protein (U) [Mass/Vol] 9.8 mg/dL Normal 0.0-12.0 [facility] Comment on above: Performed By: #### L 501.0900, L501.1400, L501.4100, L501.4405, L100.0500, L501.1105 ####[facility] [address] [place], [address] UR CREAT 26.00 mg/dL Low 28.00-217.00 [facility] Comment on above: Performed By: #### L 501.0900, L501.1400, L501.4100, L501.4405, L100.0500, L501.1105 ####[facility] [address] [place], [address] Serum Creatinine AND GFRon 1 Creatinine [Mass/Vol] 0.58 mg/dL Low 0.70-1.20 [facility] Comment on above: Performed By: #### L 501.0900, L501.1400, L501.4100, L501.4405, L100.0500, L501.1105 ####[facility] [address] [place], [address] ECRCL 190.37 ml/min Normal 50-250 [facility] Comment on above: Performed By: #### L 501.0900, L501.1400, L501.4100, L501.4405, L100.0500, L501.1105 ####[facility] [address] [place], [address] GFR/1.73 sq M.predicted among non-blacks MDRD (S/P/Bld) [Vol rate/Area] 130 mL/min/{1.73_m2} Normal >60 [facility] Comment on above: Result Comment: mL/m in/1.73m2 CKD-EPI Creatinine Equation (2020) Performed By: #### L 501.0900, L501.1400, L501.4100, L501.4405, L100.0500, L501.1105 ####[facility] [address] [place], [address] Uric Acidon 03-04-2025 URIC 7.3 mg/dL High 2.6-6.0 [facility] Comment on above: Result Comment: The drugs N-Acetylcysteine and Metamizole may falselydepress this assay. Performed By: #### L 501.0900, L501.1400, L501.4100, L501.4405, L100.0500, L501.1105 ####[facility] [address] [place], [address] Bedside Glucoseon 03-03-2025 FINGERSTICK GLU 118 mg/dL High 74-106 [facility] Comment on above: Result Comment: VERITO HUMPHRIES OF PATIENT CARE PER NURSING PROTOCOL Performed By: #### L 501.080 ####[facility] [address] [place], [address] CBC W/Diff, Automatedon 10 Absolute Lymph 1.11 X10 3/uL Normal 0.83-4.51 [facility] Comment on above: Performed By: #### L 100.0100 ####[facility] [address] [place], [address] Absolute Neut 12.0 X10 3/uL High 2.0-7.7 [facility] Comment on above: Performed By: #### L 100.0100 ####[facility] [address] [place], [address] Basophils/100 WBC (Bld) 0.4 % Normal 0-1 [facility] Comment on above: Performed By: #### L 100.0100 ####[facility] [address] [place], [address] Eosinophils/100 WBC (Bld) 0.1 % Normal 0-5 [facility] Comment on above: Performed By: #### L 100.0100 ####[facility] [address] [place], [address] Erythrocyte distribution width (RBC) [Ratio] 13.2 % Normal 11.6-14.6 [facility] Comment on above: Performed By: #### L 100.0100 ####[facility] [address] [place], [id number] Hematocrit (Bld) [Volume fraction] 32.6 % Low 37-47 [facility] Comment on above: Performed By: #### L 100.0100 ####[facility] [address] [place], [address] Hemoglobin (Bld) [Mass/Vol] 11.3 g/dL Low 12.0-15.0 [facility] Comment on above: Performed By: #### L 100.0100 ####[facility] [address] [place], [address] IG% 1.900 High 0.0-0.9 [facility] Comment on above: Result Comment: IG% - Immature Granulocytes (promyelocytes, myelocytes andmetamyelocytes) > 1% indicates that a LEFT SHIFT is Present. Performed By: #### L 100.0100 ####[facility] [address] [place], [address] Lymphocytes/100 WBC (Bld) 7.9 % Low 19-41 [facility] Comment on above: Performed By: #### L 100.0100 ####[facility] [address] [place], [address] MCH (RBC) [Entitic mass] 31.3 pg Normal 27.0-32.0 [facility] Comment on above: Performed By: #### L 100.0100 ####[facility] [address] [place], [id number] MCHC (RBC) [Mass/Vol] 34.7 g/dL Normal 32-36 [facility] Comment on above: Performed By: #### L 100.0100 ####[facility] [address] [place], [address] MCV (RBC) [Entitic vol] 90.3 fL Normal 81-99 [facility] Comment on above: Performed By: #### L 100.0100 ####[facility] [address] [place], [id number] Monocytes/100 WBC (Bld) 4.5 % Normal 0-10 [facility] Comment on above: Performed By: #### L 100.0100 ####[facility] [address] [place], [id number] Neutrophils/100 WBC (Bld) 85.2 % High 47-70 [facility] Comment on above: Performed By: #### L 100.0100 ####[facility] [address] [place], [id number] Nucleated RBC (Bld) [#/Vol] 0.1 10*3/uL Normal 0-5 [facility] Comment on above: Performed By: #### L 100.0100 ####[facility] [address] [place], [address] Platelet mean volume (Bld) [Entitic vol] 11.2 fL Normal 6.2-12.0 [facility] Comment on above: Performed By: #### L 100.0100 ####[facility] [address] [place], [id number] Platelets (Bld) [#/Vol] 179 10*3/uL Normal 150-450 [facility] Comment on above: Performed By: #### L 100.0100 ####[facility] [address] [place], [id number] RBC (Bld) [#/Vol] 3.61 10*6/uL Low 4.2-5.4 [facility] [place] [facility] Comment on above: Performed By: #### L 100.0100 ####[facility] [address] [place], [id number] RDW SD 43.1 fl Normal 35.1-43.9 [facility] Comment on above: Performed By: #### L 100.0100 ####[facility] [address] [place], [id number] WBC (Bld) [#/Vol] 14.1 10*3/uL High 4.4-11.0 [facility] [facility] Comment on above: Performed By: #### L 100.0100 ####[facility] [address] [place], [address] Comprehensive Metabolic Prof ilon 03-03-2025 Albumin [Mass/Vol] 3.2 g/dL Low 3.5-5.0 [facility] Comment on above: Performed By: #### L 500.4050 ####[facility] [address] [place], [id number] Albumin/Globulin [Mass ratio] 1.2 {ratio} Normal 0.9-2.4 [facility] Comment on above: Performed By: #### L 500.4050 ####[facility] [address] [place], [id number] ALK PHOS 114 U/L High 35-104 [facility] Comment on above: Performed By: #### L 500.4050 ####[facility] [address] [place], [id number] ALT [Catalytic activity/Vol] 15 U/L Normal <=34 [facility] Comment on above: Performed By: #### L 500.4050 ####[facility] [address] [place], [address] AST [Catalytic activity/Vol] 26 U/L Normal <=31 [facility] Comment on above: Performed By: #### L 500.4050 ####[facility] [address] [place], [address] Bilirubin [Mass/Vol] 0.22 mg/dL Normal 0.00-1.30 [facility] Comment on above: Performed By: #### L 500.4050 ####[facility] [address] [place], [address] BUN/CRE 16.5 RATIO Normal 10-20 [facility] Comment on above: Performed By: #### L 500.4050 ####[facility] [address] [place], [address] Calcium [Mass/Vol] 9.1 mg/dL Normal 7.6-11.0 [facility] Comment on above: Performed By: #### L 500.4050 ####[facility] [address] [place], [address] Chloride [Moles/Vol] 105 mmol/L Normal 98-108 [facility] Comment on above: Performed By: #### L 500.4050 ####[facility] [address] [place], [address] CO2 [Moles/Vol] 17.4 mmol/L Low 21.0-32.0 [facility] Comment on above: Performed By: #### L 500.4050 ####[facility] [address] [place], [address] Creatinine [Mass/Vol] 0.51 mg/dL Low 0.70-1.20 [facility] Comment on above: Performed By: #### L 500.4050 ####[facility] [address] [place], [address] ECRCL 216.86 ml/min Normal 50-250 [facility] Comment on above: Performed By: #### L 500.4050 ####[facility] [address] [place], [address] GAP 13 Normal 5-15 [facility] Comment on above: Performed By: #### L 500.4050 ####[facility] [address] [place], [address] GFR/1.73 sq M.predicted among non-blacks MDRD (S/P/Bld) [Vol rate/Area] 134 mL/min/{1.73_m2} Normal >60 [facility] Comment on above: Result Comment: mL/m in/1.73m2 CKD-EPI Creatinine Equation (2020) Performed By: #### L 500.4050 ####[facility] [address] [place], [address] Globulin (S) [Mass/Vol] 2.7 g/dL Normal 2.2-4.2 [facility] Comment on above: Performed By: #### L 500.4050 ####[facility] [address] [place], [address] Glucose [Mass/Vol] 112 mg/dL High 70-99 [facility] Comment on above: Performed By: #### L 500.4050 ####[facility] [address] [place], [address] Potassium [Moles/Vol] 4.1 mmol/L Normal 3.3-5.1 [facility] Comment on above: Performed By: #### L 500.4050 ####[facility] [address] [place], [address] Sodium [Moles/Vol] 135 mmol/L Normal 133-145 [facility] Comment on above: Performed By: #### L 500.4050 ####[facility] [address] [place], [address] T PROT 6.0 g/dL Normal 5.9-8.4 [facility] Comment on above: Performed By: #### L 500.4050 ####[facility] [address] [place], [address] Urea nitrogen [Mass/Vol] 8 mg/dL Normal 4-19 [facility] Comment on above: Performed By: #### L 500.4050 ####[facility] [address] [place], [address] Rule out Beta Strep (Grp. B) on 03-03-2025 TIFFANY Group B Beta Streptococcus is not isolated. Normal [facility] Comment on above: Performed By: #### M 100.3400 ####[facility] [address] [place], [address] 24 HR UR Creatinine Clearanc yanet 03-02-2025 CREAT CLEARANCE 121 ml/min Normal 100-200 [facility] Comment on above: Result Comment: AMENDED REPORT 03/02/252143 CREAT CLEARANCE previously reported as: 201 H ml/min Performed By: #### L 500.9000, L502.000, L500.4507 ####[facility] [address] [place], [address] 24 HR Urine Creatinineon UR.CREAT/24hr 954.5 mg/24 hr Normal 740.0-1540.0 [facility] [place] [facility] Comment on above: Performed By: #### L 500.9000, L502.000, L500.4507 ####[facility] [address] [place], [address] Basic Metabolic Profile (BMP )on 03-02-2025 BUN/CRE 18.6 RATIO Normal 10- [facility] Comment on above: Performed By: #### L 500.2500 ####[facility] [address] [place], [address] Calcium [Mass/Vol] 9.3 mg/dL Normal 7.6-11.0 [facility] Comment on above: Performed By: #### L 500.2500 ####[facility] [address] [place], [address] Chloride [Moles/Vol] 103 mmol/L Normal 98-108 [facility] Comment on above: Performed By: #### L 500.2500 ####[facility] [address] [place], [address] CO2 [Moles/Vol] 18.4 mmol/L Low 21.0-32.0 [facility] Comment on above: Performed By: #### L 500.2500 ####[facility] [address] [place], [address] Creatinine [Mass/Vol] 0.57 mg/dL Low 0.70-1.20 [facility] Comment on above: Performed By: #### L 500.2500 ####[facility] [address] [place], [address] ECRCL 194.03 ml/min Normal 50-250 [facility] Comment on above: Performed By: #### L 500.2500 ####[facility] [address] [place], [address] GAP 13 Normal 5-15 [facility] Comment on above: Performed By: #### L 500.2500 ####[facility] [address] [place], [address] GFR/1.73 sq M.predicted among non-blacks MDRD (S/P/Bld) [Vol rate/Area] 131 mL/min/{1.73_m2} Normal >60 [facility] Comment on above: Result Comment: mL/m in/1.73m2 CKD-EPI Creatinine Equation (2020) Performed By: #### L 500.2500 ####[facility] [address] [place], [address] Glucose [Mass/Vol] 103 mg/dL High 70-99 [facility] Comment on above: Performed By: #### L 500.2500 ####[facility] [address] [place], [address] Potassium [Moles/Vol] 4.1 mmol/L Normal 3.3-5.1 [facility] Comment on above: Performed By: #### L 500.2500 ####[facility] [address] [place], [address] Sodium [Moles/Vol] 134 mmol/L Normal 133-145 [facility] Comment on above: Performed By: #### L 500.2500 ####[facility] [address] [place], [address] Urea nitrogen [Mass/Vol] 11 mg/dL Normal 4-19 [facility] Comment on above: Performed By: #### L 500.2500 ####[facility] [address] [place], [address] Bedside Glucoseon 03-02-2025 FINGERSTICK GLU 157 mg/dL High 74-106 [facility] Comment on above: Result Comment: VERITO GEMENT OF PATIENT CARE PER NURSING PROTOCOL Performed By: #### L 501.080 ####[facility] [address] [place], [address] FINGERSTICK GLU 105 mg/dL Normal 74-106 [facility] Comment on above: Result Comment: VERITO GEMENT OF PATIENT CARE PER NURSING PROTOCOL Performed By: #### L 501.080 ####[facility] [address] [place], [address] FINGERSTICK GLU 135 mg/dL High 74-106 [facility] Comment on above: Result Comment: VERITO GEMENT OF PATIENT CARE PER NURSING PROTOCOL Performed By: #### L 501.080 ####[facility] [address] [place], [address] FINGERSTICK GLU 127 mg/dL High 74-106 [facility] Comment on above: Result Comment: VERITO GEMENT OF PATIENT CARE PER NURSING PROTOCOL Performed By: #### L 501.080 ####[facility] [address] [place], [address] CBC W/Diff, Automatedon 10-0 2-2025 Absolute Lymph 1.21 X10 3/uL Normal 0.83-4.51 [facility] Comment on above: Performed By: #### L 100.0100 ####[facility] [address] [place], [address] Absolute Neut 12.3 X10 3/uL High 2.0-7.7 [facility] Comment on above: Performed By: #### L 100.0100 ####[facility] [address] [place], [address] Basophils/100 WBC (Bld) 0.1 % Normal 0-1 [facility] Comment on above: Performed By: #### L 100.0100 ####[facility] [address] [place], [address] Eosinophils/100 WBC (Bld) 0.1 % Normal 0-5 [facility] Comment on above: Performed By: #### L 100.0100 ####[facility] [address] [place], [address] Erythrocyte distribution width (RBC) [Ratio] 13.3 % Normal 11.6-14.6 [facility] Comment on above: Performed By: #### L 100.0100 ####[facility] [address] [place], [address] Hematocrit (Bld) [Volume fraction] 33.5 % Low 37-47 [facility] Comment on above: Performed By: #### L 100.0100 ####[facility] [address] [place], [address] Hemoglobin (Bld) [Mass/Vol] 11.9 g/dL Low 12.0-15.0 [facility] Comment on above: Performed By: #### L 100.0100 ####[facility] [address] [place], [address] IG% 0.800 Normal 0.0-0.9 [facility] Comment on above: Result Comment: IG% - Immature Granulocytes (promyelocytes, myelocytes andmetamyelocytes) > 1% indicates that a LEFT SHIFT is Present. Performed By: #### L 100.0100 ####[facility] [address] [place], [address] Lymphocytes/100 WBC (Bld) 8.4 % Low 19-41 [facility] Comment on above: Performed By: #### L 100.0100 ####[facility] [address] [place], [address] MCH (RBC) [Entitic mass] 31.5 pg Normal 27.0-32.0 [facility] Comment on above: Performed By: #### L 100.0100 ####[facility] [address] [place], [address] MCHC (RBC) [Mass/Vol] 35.5 g/dL Normal 32-36 [facility] Comment on above: Performed By: #### L 100.0100 ####[facility] [address] [place], [address] MCV (RBC) [Entitic vol] 88.6 fL Normal 81-99 [facility] Comment on above: Performed By: #### L 100.0100 ####[facility] [address] [place], [address] Monocytes/100 WBC (Bld) 5.7 % Normal 0-10 [facility] Comment on above: Performed By: #### L 100.0100 ####[facility] [address] [place], [address] Neutrophils/100 WBC (Bld) 84.9 % High 47-70 [facility] Comment on above: Performed By: #### L 100.0100 ####[facility] [address] [place], [address] Nucleated RBC (Bld) [#/Vol] 0.1 10*3/uL Normal 0-5 [facility] Comment on above: Performed By: #### L 100.0100 ####[facility] [address] [place], [address] Platelet mean volume (Bld) [Entitic vol] 11.1 fL Normal 6.2-12.0 [facility] Comment on above: Performed By: #### L 100.0100 ####[facility] [address] [place], [address] Platelets (Bld) [#/Vol] 203 10*3/uL Normal 150-450 [facility] Comment on above: Performed By: #### L 100.0100 ####[facility] [address] [place], [address] RBC (Bld) [#/Vol] 3.78 10*6/uL Low 4.2-5.4 [facility] [facility] Comment on above: Performed By: #### L 100.0100 ####[facility] [address] [place], [address] RDW SD 43.1 fl Normal 35.1-43.9 [facility] Comment on above: Performed By: #### L 100.0100 ####[facility] [address] [place], [address] WBC (Bld) [#/Vol] 14.5 10*3/uL High 4.4-11.0 [facility] Comment on above: Performed By: #### L 100.0100 ####[facility] [address] [place], [address] Absolute Lymph 0.96 X10 3/uL Normal 0.83-4.51 [facility] Comment on above: Performed By: #### L 501.1400, L504.2610, L100.0100, L500.4050 ####[facility] [address] [place], [address] Absolute Neut 11.5 X10 3/uL High 2.0-7.7 [facility] Comment on above: Performed By: #### L 501.1400, L504.2610, L100.0100, L500.4050 ####[facility] [address] [place], [address] Basophils/100 WBC (Bld) 0.2 % Normal 0-1 [facility] Comment on above: Performed By: #### L 501.1400, L504.2610, L100.0100, L500.4050 ####[facility] [address] [place], [address] Eosinophils/100 WBC (Bld) 0.0 % Normal 0-5 [facility] Comment on above: Performed By: #### L 501.1400, L504.2610, L100.0100, L500.4050 ####[facility] [address] [place], [address] Erythrocyte distribution width (RBC) [Ratio] 13.2 % Normal 11.6-14.6 [facility] Comment on above: Performed By: #### L 501.1400, L504.2610, L100.0100, L500.4050 ####[facility] [address] [place], [address] Hematocrit (Bld) [Volume fraction] 34.4 % Low 37-47 [facility] Comment on above: Performed By: #### L 501.1400, L504.2610, L100.0100, L500.4050 ####[facility] [address] [place], [address] Hemoglobin (Bld) [Mass/Vol] 11.8 g/dL Low 12.0-15.0 [facility] Comment on above: Performed By: #### L 501.1400, L504.2610, L100.0100, L500.4050 ####[facility] [address] [place], [address] IG% 0.800 Normal 0.0-0.9 [facility] Comment on above: Result Comment: IG% - Immature Granulocytes (promyelocytes, myelocytes andmetamyelocytes) > 1% indicates that a LEFT SHIFT is Present. Performed By: #### L 501.1400, L504.2610, L100.0100, L500.4050 ####[facility] [address] [place], [address] Lymphocytes/100 WBC (Bld) 7.4 % Low 19-41 [facility] Comment on above: Performed By: #### L 501.1400, L504.2610, L100.0100, L500.4050 ####[facility] [address] [place], [address] MCH (RBC) [Entitic mass] 30.6 pg Normal 27.0-32.0 [facility] Comment on above: Performed By: #### L 501.1400, L504.2610, L100.0100, L500.4050 ####[facility] [address] [place], [address] MCHC (RBC) [Mass/Vol] 34.3 g/dL Normal 32-36 [facility] Comment on above: Performed By: #### L 501.1400, L504.2610, L100.0100, L500.4050 ####[facility] [address] [place], [address] MCV (RBC) [Entitic vol] 89.4 fL Normal 81-99 [facility] Comment on above: Performed By: #### L 501.1400, L504.2610, L100.0100, L500.4050 ####[facility] [address] [place], [address] Monocytes/100 WBC (Bld) 2.7 % Normal 0-10 [facility] Comment on above: Performed By: #### L 501.1400, L504.2610, L100.0100, L500.4050 ####[facility] [address] [place], [address] Neutrophils/100 WBC (Bld) 88.9 % High 47-70 [facility] Comment on above: Performed By: #### L 501.1400, L504.2610, L100.0100, L500.4050 ####[facility] [address] [place], [address] Nucleated RBC (Bld) [#/Vol] 0 10*3/uL Normal 0-5 [facility] Comment on above: Performed By: #### L 501.1400, L504.2610, L100.0100, L500.4050 ####[facility] [address] [place], [address] Platelet mean volume (Bld) [Entitic vol] 11.4 fL Normal 6.2-12.0 [facility] Comment on above: Performed By: #### L 501.1400, L504.2610, L100.0100, L500.4050 ####[facility] [address] [place], [address] Platelets (Bld) [#/Vol] 191 10*3/uL Normal 150-450 [facility] Comment on above: Performed By: #### L 501.1400, L504.2610, L100.0100, L500.4050 ####[facility] [address] [place], [address] RBC (Bld) [#/Vol] 3.85 10*6/uL Low 4.2-5.4 [facility] [place] [facility] Comment on above: Performed By: #### L 501.1400, L504.2610, L100.0100, L500.4050 ####[facility] [address] [place], [address] RDW SD 42.5 fl Normal 35.1-43.9 [facility] Comment on above: Performed By: #### L 501.1400, L504.2610, L100.0100, L500.4050 ####[facility] [address] [place], [address] WBC (Bld) [#/Vol] 13.0 10*3/uL High 4.4-11.0 [facility] [facility] Comment on above: Performed By: #### L 501.1400, L504.2610, L100.0100, L500.4050 ####[facility] [address] [place], [address] Comprehensive Metabolic Prof ilon 03-02-2025 Albumin [Mass/Vol] 3.3 g/dL Low 3.5-5.0 [facility] Comment on above: Performed By: #### L 500.4050 ####[facility] [address] [place], [address] Albumin/Globulin [Mass ratio] 1.2 {ratio} Normal 0.9-2.4 [facility] Comment on above: Performed By: #### L 500.4050 ####[facility] [address] [place], [address] ALK PHOS 119 U/L High 35-104 [facility] Comment on above: Performed By: #### L 500.4050 ####[facility] [address] [place], [address] ALT [Catalytic activity/Vol] 13 U/L Normal <=34 [facility] Comment on above: Performed By: #### L 500.4050 ####[facility] [address] [place], [address] AST [Catalytic activity/Vol] 23 U/L Normal <=31 [facility] Comment on above: Performed By: #### L 500.4050 ####[facility] [address] [place], [address] Bilirubin [Mass/Vol] 0.21 mg/dL Normal 0.00-1.30 [facility] Comment on above: Performed By: #### L 500.4050 ####[facility] [address] [place], [address] BUN/CRE 18.4 RATIO Normal 10-20 [facility] Comment on above: Performed By: #### L 500.4050 ####[facility] [address] [place], [address] Calcium [Mass/Vol] 9.2 mg/dL Normal 7.6-11.0 [facility] Comment on above: Performed By: #### L 500.4050 ####[facility] [address] [place], [address] Chloride [Moles/Vol] 103 mmol/L Normal 98-108 [facility] Comment on above: Performed By: #### L 500.4050 ####[facility] [address] [place], [address] CO2 [Moles/Vol] 16.6 mmol/L Low 21.0-32.0 [facility] Comment on above: Performed By: #### L 500.4050 ####[facility] [address] [place], [address] Creatinine [Mass/Vol] 0.58 mg/dL Low 0.70-1.20 [facility] Comment on above: Performed By: #### L 500.4050 ####[facility] [address] [place], [address] ECRCL 190.68 ml/min Normal 50-250 [facility] Comment on above: Performed By: #### L 500.4050 ####[facility] [address] [place], [address] GAP 14 Normal 5-15 [facility] Comment on above: Performed By: #### L 500.4050 ####[facility] [address] [place], [address] GFR/1.73 sq M.predicted among non-blacks MDRD (S/P/Bld) [Vol rate/Area] 130 mL/min/{1.73_m2} Normal >60 [facility] Comment on above: Result Comment: mL/m in/1.73m2 CKD-EPI Creatinine Equation (2020) Performed By: #### L 500.4050 ####[facility] [address] [place], [address] Globulin (S) [Mass/Vol] 2.8 g/dL Normal 2.2-4.2 [facility] Comment on above: Performed By: #### L 500.4050 ####[facility] [address] [place], [address] Glucose [Mass/Vol] 108 mg/dL High 70-99 [facility] Comment on above: Performed By: #### L 500.4050 ####[facility] [address] [place], [address] Potassium [Moles/Vol] 4.0 mmol/L Normal 3.3-5.1 [facility] Comment on above: Performed By: #### L 500.4050 ####[facility] [address] [place], [address] Sodium [Moles/Vol] 134 mmol/L Normal 133-145 [facility] Comment on above: Performed By: #### L 500.4050 ####[facility] [address] [place], [address] T PROT 6.1 g/dL Normal 5.9-8.4 [facility] Comment on above: Performed By: #### L 500.4050 ####[facility] [address] [place], [address] Urea nitrogen [Mass/Vol] 11 mg/dL Normal 4-19 [facility] Comment on above: Performed By: #### L 500.4050 ####[facility] [address] [place], [address] Albumin [Mass/Vol] 3.3 g/dL Low 3.5-5.0 [facility] Comment on above: Performed By: #### L 501.1400, L504.2610, L100.0100, L500.4050 ####[facility] [address] [place], [address] Albumin/Globulin [Mass ratio] 1.1 {ratio} Normal 0.9-2.4 [facility] Comment on above: Performed By: #### L 501.1400, L504.2610, L100.0100, L500.4050 ####[facility] [address] [place], [address] ALK PHOS 118 U/L High 35-104 [facility] Comment on above: Performed By: #### L 501.1400, L504.2610, L100.0100, L500.4050 ####[facility] [address] [place], [address] ALT [Catalytic activity/Vol] 12 U/L Normal <=34 [facility] Comment on above: Performed By: #### L 501.1400, L504.2610, L100.0100, L500.4050 ####[facility] [address] [place], [address] AST [Catalytic activity/Vol] 25 U/L Normal <=31 [facility] Comment on above: Performed By: #### L 501.1400, L504.2610, L100.0100, L500.4050 ####[facility] [address] [place], [address] Bilirubin [Mass/Vol] 0.22 mg/dL Normal 0.00-1.30 [facility] Comment on above: Performed By: #### L 501.1400, L504.2610, L100.0100, L500.4050 ####[facility] [address] [place], [address] BUN/CRE 14.7 RATIO Normal 10-20 [facility] Comment on above: Performed By: #### L 501.1400, L504.2610, L100.0100, L500.4050 ####[facility] [address] [place], [address] Calcium [Mass/Vol] 9.6 mg/dL Normal 7.6-11.0 [facility] Comment on above: Performed By: #### L 501.1400, L504.2610, L100.0100, L500.4050 ####[facility] [address] [place], [address] Chloride [Moles/Vol] 104 mmol/L Normal 98-108 [facility] Comment on above: Performed By: #### L 501.1400, L504.2610, L100.0100, L500.4050 ####[facility] [address] [place], [address] CO2 [Moles/Vol] 16.7 mmol/L Low 21.0-32.0 [facility] Comment on above: Performed By: #### L 501.1400, L504.2610, L100.0100, L500.4050 ####[facility] [address] [place], [address] Creatinine [Mass/Vol] 0.51 mg/dL Low 0.70-1.20 [facility] Comment on above: Performed By: #### L 501.1400, L504.2610, L100.0100, L500.4050 ####[facility] [address] [place], [address] ECRCL 216.86 ml/min Normal 50-250 [facility] Comment on above: Performed By: #### L 501.1400, L504.2610, L100.0100, L500.4050 ####[facility] [address] [place], [address] GAP 12 Normal 5-15 [facility] Comment on above: Performed By: #### L 501.1400, L504.2610, L100.0100, L500.4050 ####[facility] [address] [place], [address] GFR/1.73 sq M.predicted among non-blacks MDRD (S/P/Bld) [Vol rate/Area] 135 mL/min/{1.73_m2} Normal >60 [facility] Comment on above: Result Comment: mL/m in/1.73m2 CKD-EPI Creatinine Equation (2020) Performed By: #### L 501.1400, L504.2610, L100.0100, L500.4050 ####[facility] [address] [place], [address] Globulin (S) [Mass/Vol] 3.0 g/dL Normal 2.2-4.2 [facility] Comment on above: Performed By: #### L 501.1400, L504.2610, L100.0100, L500.4050 ####[facility] [address] [place], [address] Glucose [Mass/Vol] 137 mg/dL High 70-99 [facility] Comment on above: Performed By: #### L 501.1400, L504.2610, L100.0100, L500.4050 ####[facility] [address] [place], [address] Potassium [Moles/Vol] 4.2 mmol/L Normal 3.3-5.1 [facility] Comment on above: Performed By: #### L 501.1400, L504.2610, L100.0100, L500.4050 ####[facility] [address] [place], [address] Sodium [Moles/Vol] 133 mmol/L Normal 133-145 [facility] Comment on above: Performed By: #### L 501.1400, L504.2610, L100.0100, L500.4050 ####[facility] [address], [address] T PROT 6.3 g/dL Normal 5.9-8.4 [facility] Comment on above: Performed By: #### L 501.1400, L504.2610, L100.0100, L500.4050 ####[facility] [address] [place], [address] Urea nitrogen [Mass/Vol] 7 mg/dL Normal 4-19 [facility] Comment on above: Performed By: #### L 501.1400, L504.2610, L100.0100, L500.4050 ####[facility] [address] [place], [address] ALB Normal 3.5-5.0 [facility] Comment on above: Result Comment: PER GUILLERMO NURSE OK TO CANCEL ALREADY HAD DONE AND HAS A NEWORDER THIS AM. Performed By: #### L 500.4050 ####[facility] [address] [place], [address] ALK PHOS Normal 35-104 [facility] Comment on above: Result Comment: PER ALYDIA NURSE OK TO CANCEL ALREADY HAD DONE AND HAS A NEWORDER THIS AM. Performed By: #### L 500.4050 ####[facility] [address] [place], [address] ALT Normal <=34 [facility] Comment on above: Result Comment: PER GUILLERMO NURSE OK TO CANCEL ALREADY HAD DONE AND HAS A NEWORDER THIS AM. Performed By: #### L 500.4050 ####[facility] [address] [place], [address] AST Normal <=31 [facility] Comment on above: Result Comment: PER ALPAULYIA NURSE OK TO CANCEL ALREADY HAD DONE AND HAS A NEWORDER THIS AM. Performed By: #### L 500.4050 ####[facility] [address] [place], [address] BUN Normal 4-19 [facility] Comment on above: Result Comment: PER ALPAULYIA NURSE OK TO CANCEL ALREADY HAD DONE AND HAS A NEWORDER THIS AM. Performed By: #### L 500.4050 ####[facility] [address] [place], [address] BUN/CRE Normal 10-20 [facility] Comment on above: Result Comment: PER THEOIA NURSE OK TO CANCEL ALREADY HAD DONE AND HAS A NEWORDER THIS AM. Performed By: #### L 500.4050 ####[facility] [address] [place], [address] Calcium Normal 7.6-11.0 [facility] Comment on above: Result Comment: PER ALPAULYIA NURSE OK TO CANCEL ALREADY HAD DONE AND HAS A NEWORDER THIS AM. Performed By: #### L 500.4050 ####[facility] [address] [place], [address] CL Normal 98-108 [facility] Comment on above: Result Comment: PER ALYDIA NURSE OK TO CANCEL ALREADY HAD DONE AND HAS A NEWORDER THIS AM. Performed By: #### L 500.4050 ####[facility] [address] [place], [address] CO2 Normal 21.0-32.0 [facility] Comment on above: Result Comment: PER ALPAULYIA NURSE OK TO CANCEL ALREADY HAD DONE AND HAS A NEWORDER THIS AM. Performed By: #### L 500.4050 ####[facility] [address] [place], [address] CREAT,SERUM Normal 0.70-1.20 [facility] Comment on above: Result Comment: PER ALYDIA NURSE OK TO CANCEL ALREADY HAD DONE AND HAS A NEWORDER THIS AM. Performed By: #### L 500.4050 ####[facility] [address] [place], [address] eGFR Normal >60 [facility] Comment on above: Result Comment: PER ALYDIA NURSE OK TO CANCEL ALREADY HAD DONE AND HAS A NEWORDER THIS AM. Performed By: #### L 500.4050 ####[facility] [address] [place], [address] GAP Normal 5-15 [facility] Comment on above: Result Comment: PER ALPAULYIA NURSE OK TO CANCEL ALREADY HAD DONE AND HAS A NEWORDER THIS AM. Performed By: #### L 500.4050 ####[facility] [address] [place], [address] GLU Normal 70-99 [facility] Comment on above: Result Comment: PER ALYDIA NURSE OK TO CANCEL ALREADY HAD DONE AND HAS A NEWORDER THIS AM. Performed By: #### L 500.4050 ####[facility] [address] [place], [address] Potassium Normal 3.3-5.1 [facility] Comment on above: Result Comment: PER ALYDIA NURSE OK TO CANCEL ALREADY HAD DONE AND HAS A NEWORDER THIS AM. Performed By: #### L 500.4050 ####[facility] [address] [place], [address] T BILI Normal 0.00-1.30 [facility] Comment on above: Result Comment: PER BESSYTOM NURSE OK TO CANCEL ALREADY HAD DONE AND HAS A NEWORDER THIS AM. Performed By: #### L 500.4050 ####[facility] [address] [place], [address] T PROT Normal 5.9-8.4 [facility] Comment on above: Result Comment: PER GUILLERMO NURSE OK TO CANCEL ALREADY HAD DONE AND HAS A NEWORDER THIS AM. Performed By: #### L 500.4050 ####[facility] [address] [place], [address] Comprehensive Metabolic Profil Normal 133-145 [facility] Comment on above: Result Comment: PER GUILLERMO NURSE OK TO CANCEL ALREADY HAD DONE AND HAS A NEWORDER THIS AM. Performed By: #### L 500.4050 ####[facility] [address] [place], [address] LDHon 03-02-2025 LDH 195 U/L Normal 84-246 [facility] Comment on above: Performed By: #### L 501.1400, L504.2610, L100.0100, L500.4050 ####[facility] [address] [place], [address] OB Triage Physician Noteon 1 OB Triage Physician Note Normal [facility] Protein, Urine 24HRon 2024 24hr UR PROTEIN 224.1 mg/24HR High <150 MG/24HR [facility] Comment on above: Performed By: #### L 500.9000, L502.000, L500.4507 ####[facility] [address] [place], [address] Protein Ql (U) 10.8 mg/dL Normal <11.9 [facility] Comment on above: Performed By: #### L 500.9000, L502.000, L500.4507 ####[facility] [address] [place], [address] Uric Acidon 03-02-2025 URIC 6.3 mg/dL High 2.6-6.0 [facility] Comment on above: Result Comment: The drugs N-Acetylcysteine and Metamizole may falselydepress this assay. Performed By: #### L 501.1400, L504.2610, L100.0100, L500.4050 ####[facility] [address] [place], [address] (ROM) Rupture Of Membraneson 03-01-2025 ROM Negative Normal Negative [facility] Comment on above: Result Comment: Amni otic fluid not present indicates No Rupture of FetalMembranes at time of specimen collection. Performed By: #### L 205.1000 ####[facility] [address] [place], [address] AST(SGOT)on 03-01-2025 AST [Catalytic activity/Vol] 29 U/L Normal <=31 [facility] Comment on above: Performed By: #### L 501.1400, L501.4405, L501.4100, L501.1105, L100.0500 ####[facility] [address] [place], [address] Alanine Aminotransferas (SGP T)on 03-01-2025 ALT [Catalytic activity/Vol] 14 U/L Normal <=34 [facility] Comment on above: Performed By: #### L 501.1400, L501.4405, L501.4100, L501.1105, L100.0500 ####[facility] [address] [place], [address] Bedside Glucoseon 03-01-2025 FINGERSTICK GLU 160 mg/dL High 74-106 [facility] Comment on above: Result Comment: VERITO HUMPHRIES OF PATIENT CARE PER NURSING PROTOCOL Performed By: #### L 501.080 ####[facility] [address] [place], [address] FINGERSTICK GLU 94 mg/dL Normal 74-106 [facility] Comment on above: Result Comment: VERITO HUMPHRIES OF PATIENT CARE PER NURSING PROTOCOL Performed By: #### L 501.080 ####[facility] [address] [place], [address] Brain without Contraston Brain without Contrast Normal [facility] CBC-Complete Blood Cnt No Di ffon 03-01-2025 Erythrocyte distribution width (RBC) [Ratio] 13.4 % Normal 11.6-14.6 [facility] Comment on above: Performed By: #### L 501.1400, L501.4405, L501.4100, L501.1105, L100.0500 ####[facility] [address] [place], [address] Hematocrit (Bld) [Volume fraction] 34.6 % Low 37-47 [facility] Comment on above: Performed By: #### L 501.1400, L501.4405, L501.4100, L501.1105, L100.0500 ####[facility] [address] [place], [address] Hemoglobin (Bld) [Mass/Vol] 12.1 g/dL Normal 12.0-15.0 [facility] Comment on above: Performed By: #### L 501.1400, L501.4405, L501.4100, L501.1105, L100.0500 ####[facility] [address] [place], [address] MCH (RBC) [Entitic mass] 31.3 pg Normal 27.0-32.0 [facility] Comment on above: Performed By: #### L 501.1400, L501.4405, L501.4100, L501.1105, L100.0500 ####[facility] [address] [place], [address] MCHC (RBC) [Mass/Vol] 35.0 g/dL Normal 32-36 [facility] Comment on above: Performed By: #### L 501.1400, L501.4405, L501.4100, L501.1105, L100.0500 ####[facility] [address] [place], [address] MCV (RBC) [Entitic vol] 89.4 fL Normal 81-99 [facility] Comment on above: Performed By: #### L 501.1400, L501.4405, L501.4100, L501.1105, L100.0500 ####[facility] [address] [place], [address] Platelet mean volume (Bld) [Entitic vol] 11.1 fL Normal 6.2-12.0 [facility] Comment on above: Performed By: #### L 501.1400, L501.4405, L501.4100, L501.1105, L100.0500 ####[facility] [address] [place], [address] Platelets (Bld) [#/Vol] 197 10*3/uL Normal 150-450 [facility] Comment on above: Performed By: #### L 501.1400, L501.4405, L501.4100, L501.1105, L100.0500 ####[facility] [address] [place], [address] RBC (Bld) [#/Vol] 3.87 10*6/uL Low 4.2-5.4 [facility] [place] [facility] Comment on above: Performed By: #### L 501.1400, L501.4405, L501.4100, L501.1105, L100.0500 ####[facility] [address] [place], [address] RDW SD 43.7 fl Normal 35.1-43.9 [facility] Comment on above: Performed By: #### L 501.1400, L501.4405, L501.4100, L501.1105, L100.0500 ####[facility] [address] [place], [address] WBC (Bld) [#/Vol] 10.2 10*3/uL Normal 4.4-11.0 [facility] [place] [facility] Comment on above: Performed By: #### L 501.1400, L501.4405, L501.4100, L501.1105, L100.0500 ####[facility] [address] 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, [address] M8200.0100on 03-01-2025 M8200.0100 Negative Normal [facility] Comment on above: Performed By: #### M 8200.0100 ####[facility] [address] [place], [address] OB Limited (No Biometrics)on 03-01-2025 OB Limited (No Biometrics) Normal [facility] Natural Resource Manager Office Visit Reporton 03-01-2025 Natural Resource Manager Office Visit Report Normal [facility] Protein+Creatinine Ratio,Uri neon 03-01-2025 PROT:CRE RATIO Normal 0-200 [facility] Comment on above: Result Comment: DUPL ICATE ORDER. SEE UC13 FOR RESULTS Performed By: #### L 501.0900 ####[facility] [address] [place], [address] PROTEIN,UR.RAN. Normal 0.0-12.0 [facility] Comment on above: Result Comment: DUPL ICATE ORDER. SEE UC13 FOR RESULTS Performed By: #### L 501.0900 ####[facility] [address] [place], [address] UR CREAT Normal 28.00-217.00 [facility] Comment on above: Result Comment: DUPL ICATE ORDER. SEE UC13 FOR RESULTS Performed By: #### L 501.0900 ####[facility] [address] [place], [address] PROT:CRE RATIO 324 mg/g CRE High 0-200 [facility] Comment on above: Performed By: #### L 501.0900 ####[facility] [address] [place], [address] Protein (U) [Mass/Vol] 8.4 mg/dL Normal 0.0-12.0 [facility] Comment on above: Performed By: #### L 501.0900 ####[facility] [address] [place], [address] UR CREAT 25.90 mg/dL Low 28.00-217.00 [facility] Comment on above: Performed By: #### L 501.0900 ####[facility] [address] [place], [address] Serum Creatinine AND GFRon 1 0 Creatinine [Mass/Vol] 0.55 mg/dL Low 0.70-1.20 [facility] Comment on above: Performed By: #### L 501.1400, L501.4405, L501.4100, L501.1105, L100.0500 ####[facility] [address] [place], [address] ECRCL 201.09 ml/min Normal 50-250 [facility] Comment on above: Performed By: #### L 501.1400, L501.4405, L501.4100, L501.1105, L100.0500 ####[facility] [address] [place], [address] GFR/1.73 sq M.predicted among non-blacks MDRD (S/P/Bld) [Vol rate/Area] 132 mL/min/{1.73_m2} Normal >60 [facility] Comment on above: Result Comment: mL/m in/1.73m2 CKD-EPI Creatinine Equation (2020) Performed By: #### L 501.1400, L501.4405, L501.4100, L501.1105, L100.0500 ####[facility] [address] [place], [address] Uric Acidon 03-01-2025 URIC 6.2 mg/dL High 2.6-6.0 [facility] Comment on above: Result Comment: The drugs N-Acetylcysteine and Metamizole may falselydepress this assay. Performed By: #### L 501.1400, L501.4405, L501.4100, L501.1105, L100.0500 ####[facility] [address] [place], [address] Urine Cultureon 02-28-2025 URC #1 Below infection level. Presumptive C albicans Citra Count <1000 Mixed Gram Positive Organisms Mixed Gram Positive Organisms MIXC Mixed contaminants. Submit a new specimen if indicated. Normal [facility] Comment on above: Performed By: #### M 100.2200 ####[facility] [address] [place], [address] OB Triage Physician Noteon 0 02-26-2025 OB Triage Physician Note Normal [facility] (ROM) Rupture Of Membraneson 02-25-2025 ROM Negative Normal Negative [facility] Comment on above: Result Comment: Amni otic fluid not present indicates No Rupture of FetalMembranes at time of specimen collection. Performed By: #### L 205.1000 ####[facility] [address] [place], [address] AST(SGOT)on 02-25-2025 AST [Catalytic activity/Vol] 27 U/L Normal <=31 [facility] Comment on above: Performed By: #### L 501.1105, L100.0500, L501.4405, L501.1400, L501.4100, L501.0900 ####[facility] [address] [place], [address] Alanine Aminotransferas (SGP T)on 02-25-2025 ALT [Catalytic activity/Vol] 15 U/L Normal <=34 [facility] Comment on above: Performed By: #### L 501.1105, L100.0500, L501.4405, L501.1400, L501.4100, L501.0900 ####[facility] [address] [place], [address] CBC-Complete Blood Cnt No Di ffon 02-25-2025 Erythrocyte distribution width (RBC) [Ratio] 13.2 % Normal 11.6-14.6 [facility] Comment on above: Performed By: #### L 501.1105, L100.0500, L501.4405, L501.1400, L501.4100, L501.0900 ####[facility] [address] [place], [address] Hematocrit (Bld) [Volume fraction] 35.7 % Low 37-47 [facility] Comment on above: Performed By: #### L 501.1105, L100.0500, L501.4405, L501.1400, L501.4100, L501.0900 ####[facility] [address] [place], [address] Hemoglobin (Bld) [Mass/Vol] 12.6 g/dL Normal 12.0-15.0 [facility] Comment on above: Performed By: #### L 501.1105, L100.0500, L501.4405, L501.1400, L501.4100, L501.0900 ####[facility] [address] [place], [address] MCH (RBC) [Entitic mass] 31.6 pg Normal 27.0-32.0 [facility] Comment on above: Performed By: #### L 501.1105, L100.0500, L501.4405, L501.1400, L501.4100, L501.0900 ####[facility] [address] [place], [address] MCHC (RBC) [Mass/Vol] 35.3 g/dL Normal 32-36 [facility] Comment on above: Performed By: #### L 501.1105, L100.0500, L501.4405, L501.1400, L501.4100, L501.0900 ####[facility] [address] [place], [address] MCV (RBC) [Entitic vol] 89.5 fL Normal 81-99 [facility] Comment on above: Performed By: #### L 501.1105, L100.0500, L501.4405, L501.1400, L501.4100, L501.0900 ####[facility] [address] [place], [address] Platelet mean volume (Bld) [Entitic vol] 11.1 fL Normal 6.2-12.0 [facility] Comment on above: Performed By: #### L 501.1105, L100.0500, L501.4405, L501.1400, L501.4100, L501.0900 ####[facility] [address] [place], [address] Platelets (Bld) [#/Vol] 208 10*3/uL Normal 150-450 [facility] Comment on above: Performed By: #### L 501.1105, L100.0500, L501.4405, L501.1400, L501.4100, L501.0900 ####[facility] [address] [place], [address] RBC (Bld) [#/Vol] 3.99 10*6/uL Low 4.2-5.4 [facility] [place] [facility] Comment on above: Performed By: #### L 501.1105, L100.0500, L501.4405, L501.1400, L501.4100, L501.0900 ####[facility] [address] [place], [address] RDW SD 43.3 fl Normal 35.1-43.9 [facility] Comment on above: Performed By: #### L 501.1105, L100.0500, L501.4405, L501.1400, L501.4100, L501.0900 ####[facility] [address] [place], [address] WBC (Bld) [#/Vol] 11.5 10*3/uL High 4.4-11.0 [facility] [place] [facility] Comment on above: Performed By: #### L 501.1105, L100.0500, L501.4405, L501.1400, L501.4100, L501.0900 ####[facility] [address] [place], [address] Protein+Creatinine Ratio,Uri neon 02-25-2025 PROT:CRE RATIO 214 mg/g CRE High 0-200 [facility] Comment on above: Performed By: #### L 501.1105, L100.0500, L501.4405, L501.1400, L501.4100, L501.0900 ####[facility] [address] [place], [address] Protein (U) [Mass/Vol] 8.1 mg/dL Normal 0.0-12.0 [facility] Comment on above: Performed By: #### L 501.1105, L100.0500, L501.4405, L501.1400, L501.4100, L501.0900 ####[facility] [address] [place], [address] UR CREAT 37.80 mg/dL Normal 28.00-217.00 [facility] Comment on above: Performed By: #### L 501.1105, L100.0500, L501.4405, L501.1400, L501.4100, L501.0900 ####[facility] [address] [place], [address] Serum Creatinine AND GFRon 0 - Creatinine [Mass/Vol] 0.52 mg/dL Low 0.70-1.20 [facility] Comment on above: Performed By: #### L 501.1105, L100.0500, L501.4405, L501.1400, L501.4100, L501.0900 ####[facility] [address] [place], [address] ECRCL 212.39 ml/min Normal 50-250 [facility] Comment on above: Performed By: #### L 501.1105, L100.0500, L501.4405, L501.1400, L501.4100, L501.0900 ####[facility] [address] [place], [address] GFR/1.73 sq M.predicted among non-blacks MDRD (S/P/Bld) [Vol rate/Area] 134 mL/min/{1.73_m2} Normal >60 [facility] Comment on above: Result Comment: mL/m in/1.73m2 CKD-EPI Creatinine Equation (2020) Performed By: #### L 501.1105, L100.0500, L501.4405, L501.1400, L501.4100, L501.0900 ####[facility] [address] [place], [address] Uric Acidon 02-25-2025 URIC 6.1 mg/dL High 2.6-6.0 [facility] Comment on above: Result Comment: The drugs N-Acetylcysteine and Metamizole may falselydepress this assay. Performed By: #### L 501.1105, L100.0500, L501.4405, L501.1400, L501.4100, L501.0900 ####[facility] [address] [place], [address] Urinalysis, Completeon 02-25 RBC 5-10 SEEN Normal 0-5 [facility] Comment on above: Order Comment: CLEAN CATCH Performed By: #### L 400.0001 ####[facility] [address] [place], [address] WBC 50-100 SEEN Normal 0-5 [facility] Comment on above: Order Comment: CLEAN CATCH Performed By: #### L 400.0001 ####[facility] [address] [place], [address] BACTERIA 2+ /hpf Normal None Seen [facility] Comment on above: Order Comment: CLEAN CATCH Performed By: #### L 400.0001 ####[facility] [address] [place], [address] EPI,SQUAMOUS 10-25 SEEN Normal 5-10 [facility] Comment on above: Order Comment: CLEAN CATCH Performed By: #### L 400.0001 ####[facility] [address] [place], [address] Mucus Ql (Urine sed) 0 SEEN Normal [facility] Comment on above: Order Comment: CLEAN CATCH Performed By: #### L 400.0001 ####[facility] [address] [place], [address] OB Triage Progress Noteon OB Triage Progress Note Normal [facility] CBC W/Diff, Automatedon 09-2 Absolute Lymph 1.14 X10 3/uL Normal 0.83-4.51 [facility] Comment on above: Performed By: #### L 100.0100, L500.4050, L504.2610, L501.1400 ####[facility] [address] [place], [address] Absolute Neut 8.0 X10 3/uL High 2.0-7.7 [facility] Comment on above: Performed By: #### L 100.0100, L500.4050, L504.2610, L501.1400 ####[facility] [address] [place], [address] Basophils/100 WBC (Bld) 0.4 % Normal 0-1 [facility] Comment on above: Performed By: #### L 100.0100, L500.4050, L504.2610, L501.1400 ####[facility] [address] [place], [address] Eosinophils/100 WBC (Bld) 1.3 % Normal 0-5 [facility] Comment on above: Performed By: #### L 100.0100, L500.4050, L504.2610, L501.1400 ####[facility] [address] [place], [address] Erythrocyte distribution width (RBC) [Ratio] 13.5 % Normal 11.6-14.6 [facility] Comment on above: Performed By: #### L 100.0100, L500.4050, L504.2610, L501.1400 ####[facility] [address] [place], [address] Hematocrit (Bld) [Volume fraction] 36.7 % Low 37-47 [facility] Comment on above: Performed By: #### L 100.0100, L500.4050, L504.2610, L501.1400 ####[facility] [address] [place], [address] Hemoglobin (Bld) [Mass/Vol] 12.7 g/dL Normal 12.0-15.0 [facility] Comment on above: Performed By: #### L 100.0100, L500.4050, L504.2610, L501.1400 ####[facility] [address] [place], [address] IG% 0.800 Normal 0.0-0.9 [facility] Comment on above: Result Comment: IG% - Immature Granulocytes (promyelocytes, myelocytes andmetamyelocytes) > 1% indicates that a LEFT SHIFT is Present. Performed By: #### L 100.0100, L500.4050, L504.2610, L501.1400 ####[facility] [address] [place], [address] Lymphocytes/100 WBC (Bld) 11.3 % Low 19-41 [facility] Comment on above: Performed By: #### L 100.0100, L500.4050, L504.2610, L501.1400 ####[facility] [address] [place], [address] MCH (RBC) [Entitic mass] 31.5 pg Normal 27.0-32.0 [facility] Comment on above: Performed By: #### L 100.0100, L500.4050, L504.2610, L501.1400 ####[facility] [address] [place], [address] MCHC (RBC) [Mass/Vol] 34.6 g/dL Normal 32-36 [facility] Comment on above: Performed By: #### L 100.0100, L500.4050, L504.2610, L501.1400 ####[facility] [address] [place], [address] MCV (RBC) [Entitic vol] 91.1 fL Normal 81-99 [facility] Comment on above: Performed By: #### L 100.0100, L500.4050, L504.2610, L501.1400 ####[facility] [address] [place], [address] Monocytes/100 WBC (Bld) 7.1 % Normal 0-10 [facility] Comment on above: Performed By: #### L 100.0100, L500.4050, L504.2610, L501.1400 ####[facility] [address] [place], [address] Neutrophils/100 WBC (Bld) 79.1 % High 47-70 [facility] Comment on above: Performed By: #### L 100.0100, L500.4050, L504.2610, L501.1400 ####[facility] [address] [place], [address] Nucleated RBC (Bld) [#/Vol] 0 10*3/uL Normal 0-5 [facility] Comment on above: Performed By: #### L 100.0100, L500.4050, L504.2610, L501.1400 ####[facility] [address] [place], [address] Platelet mean volume (Bld) [Entitic vol] 11.2 fL Normal 6.2-12.0 [facility] Comment on above: Performed By: #### L 100.0100, L500.4050, L504.2610, L501.1400 ####[facility] [address] [place], [address] Platelets (Bld) [#/Vol] 236 10*3/uL Normal 150-450 [facility] Comment on above: Performed By: #### L 100.0100, L500.4050, L504.2610, L501.1400 ####[facility] [address] [place], [address] RBC (Bld) [#/Vol] 4.03 10*6/uL Low 4.2-5.4 [facility] [place] [facility] Comment on above: Performed By: #### L 100.0100, L500.4050, L504.2610, L501.1400 ####[facility] [address] [place], [address] RDW SD 44.5 fl High 35.1-43.9 [facility] Comment on above: Performed By: #### L 100.0100, L500.4050, L504.2610, L501.1400 ####[facility] [address] [place], [address] WBC (Bld) [#/Vol] 10.1 10*3/uL Normal 4.4-11.0 [facility] [facility] Comment on above: Performed By: #### L 100.0100, L500.4050, L504.2610, L501.1400 ####[facility] [address] [place], [address] Comprehensive Metabolic Prof [facility] 02-22-2025 Albumin [Mass/Vol] 3.4 g/dL Low 3.5-5.0 [facility] Comment on above: Performed By: #### L 100.0100, L500.4050, L504.2610, L501.1400 ####[facility] [address] [place], [address] Albumin/Globulin [Mass ratio] 1.1 {ratio} Normal 0.9-2.4 [facility] Comment on above: Performed By: #### L 100.0100, L500.4050, L504.2610, L501.1400 ####[facility] [address] [place], [address] ALK PHOS 113 U/L High 35-104 [facility] Comment on above: Performed By: #### L 100.0100, L500.4050, L504.2610, L501.1400 ####[facility] [address] [place], [address] ALT [Catalytic activity/Vol] 18 U/L Normal <=34 [facility] Comment on above: Performed By: #### L 100.0100, L500.4050, L504.2610, L501.1400 ####[facility] [address] [place], [address] AST [Catalytic activity/Vol] 34 U/L High <=31 [facility] Comment on above: Performed By: #### L 100.0100, L500.4050, L504.2610, L501.1400 ####[facility] [address] [place], [address] Bilirubin [Mass/Vol] 0.23 mg/dL Normal 0.00-1.30 [facility] Comment on above: Performed By: #### L 100.0100, L500.4050, L504.2610, L501.1400 ####[facility] [address] [place], [address] BUN/CRE 9.7 RATIO Low 10-20 [facility] Comment on above: Performed By: #### L 100.0100, L500.4050, L504.2610, L501.1400 ####[facility] [address] [place], [address] Calcium [Mass/Vol] 9.8 mg/dL Normal 7.6-11.0 [facility] Comment on above: Performed By: #### L 100.0100, L500.4050, L504.2610, L501.1400 ####[facility] [address] [place], [address] Chloride [Moles/Vol] 103 mmol/L Normal 98-108 [facility] Comment on above: Performed By: #### L 100.0100, L500.4050, L504.2610, L501.1400 ####[facility] [address] [place], [address] CO2 [Moles/Vol] 18.6 mmol/L Low 21.0-32.0 [facility] Comment on above: Performed By: #### L 100.0100, L500.4050, L504.2610, L501.1400 ####[facility] [address] [place], [address] Creatinine [Mass/Vol] 0.77 mg/dL Normal 0.70-1.20 [facility] Comment on above: Performed By: #### L 100.0100, L500.4050, L504.2610, L501.1400 ####[facility] [address] [place], [address] GAP 12 Normal 5-15 [facility] Comment on above: Performed By: #### L 100.0100, L500.4050, L504.2610, L501.1400 ####[facility] [address] [place], [address] GFR/1.73 sq M.predicted among non-blacks MDRD (S/P/Bld) [Vol rate/Area] 111 mL/min/{1.73_m2} Normal >60 [facility] Comment on above: Result Comment: mL/m in/1.73m2 CKD-EPI Creatinine Equation (2020) Performed By: #### L 100.0100, L500.4050, L504.2610, L501.1400 ####[facility] [address] [place], [address] Globulin (S) [Mass/Vol] 3.2 g/dL Normal 2.2-4.2 [facility] Comment on above: Performed By: #### L 100.0100, L500.4050, L504.2610, L501.1400 ####[facility] [address] [place], [address] Glucose [Mass/Vol] 89 mg/dL Normal 70-99 [facility] Comment on above: Performed By: #### L 100.0100, L500.4050, L504.2610, L501.1400 ####[facility] [address] [place], [address] Potassium [Moles/Vol] 4.1 mmol/L Normal 3.3-5.1 [facility] Comment on above: Performed By: #### L 100.0100, L500.4050, L504.2610, L501.1400 ####[facility] [address] [place], [address] Sodium [Moles/Vol] 134 mmol/L Normal 133-145 [facility] Comment on above: Performed By: #### L 100.0100, L500.4050, L504.2610, L501.1400 ####[facility] [address] [place], [address] T PROT 6.6 g/dL Normal 5.9-8.4 [facility] Comment on above: Performed By: #### L 100.0100, L500.4050, L504.2610, L501.1400 ####[facility] [address] [place], [address] Urea nitrogen [Mass/Vol] 7 mg/dL Normal 4-19 [facility] Comment on above: Performed By: #### L 100.0100, L500.4050, L504.2610, L501.1400 ####[facility] [address] [place], [address] LDHon 02-22-2025 LDH 179 U/L Normal 84-246 [facility] [facility] Comment on above: Order Comment: 1 Performed By: #### L 100.0100, L500.4050, L504.2610, L501.1400 ####[facility] [address] [place], [address] Natural Resource Manager Office Visit Reporton 02-22-2025 Natural Resource Manager Office Visit Report Normal [facility] Protein+Creatinine Ratio,Uri neon 02-22-2025 PROT:CRE RATIO UNABLE TO CALCULATE Normal 0-200 [facility] Comment on above: Performed By: #### L 501.0900 ####[facility] [address] [place], [address] PROTEIN,UR.RAN. < 6.0 Normal 0.0-12.0 [facility] Comment on above: Performed By: #### L 501.0900 ####[facility] [address] [place], [address] UR CREAT 43.30 mg/dL Normal 28.00-217.00 [facility] Comment on above: Performed By: #### L 501.0900 ####[facility] [address] [place], [address] Uric Acidon 02-22-2025 URIC 6.1 mg/dL High 2.6-6.0 [facility] Comment on above: Result Comment: The drugs N-Acetylcysteine and Metamizole may falselydepress this assay. Performed By: #### L 100.0100, L500.4050, L504.2610, L501.1400 ####[facility] [address] [place], [address] (ROM) Rupture Of Membraneson 02-15-2025 ROM Negative Normal Negative [facility] Comment on above: Result Comment: Amni otic fluid not present indicates No Rupture of FetalMembranes at time of specimen collection. Performed By: #### L 205.1000 ####[facility] [address] [place], [address] Natural Resource Manager Office Visit Reporton 02-09-2025 Natural Resource Manager Office Visit Report Normal [facility] Gestational GTT 3HR 100gon 0 02-01-2025 GEST GTT 100gm High [facility] Comment on above: Order Comment: Y [...] 02/01/25 1056 Performed By: #### L 500.4710 ####[facility] [address] [place], [address] CBC W/Diff, Automatedon 12-31 Absolute Lymph 0.91 X10 3/uL Normal 0.83-4.51 [facility] Comment on above: Performed By: #### B TS, L100.0100, L509.8002, L501.0250, L3890.6006 ####[facility] [address] [place], [address] Absolute Neut 8.5 X10 3/uL High 2.0-7.7 [facility] Comment on above: Performed By: #### B TS, L100.0100, L509.8002, L501.0250, L3890.6006 ####[facility] [address] [place], [address] Basophils/100 WBC (Bld) 0.2 % Normal 0-1 [facility] Comment on above: Performed By: #### B TS, L100.0100, L509.8002, L501.0250, L3890.6006 ####[facility] [address] [place], [address] Eosinophils/100 WBC (Bld) 0.8 % Normal 0-5 [facility] Comment on above: Performed By: #### B TS, L100.0100, L509.8002, L501.0250, L3890.6006 ####[facility] [address] [place], [address] Erythrocyte distribution width (RBC) [Ratio] 12.7 % Normal 11.6-14.6 [facility] Comment on above: Performed By: #### B TS, L100.0100, L509.8002, L501.0250, L3890.6006 ####[facility] [address] [place], [address] Hematocrit (Bld) [Volume fraction] 33.7 % Low 37-47 [facility] Comment on above: Performed By: #### B TS, L100.0100, L509.8002, L501.0250, L3890.6006 ####[facility] [address] [place], [address] Hemoglobin (Bld) [Mass/Vol] 11.7 g/dL Low 12.0-15.0 [facility] Comment on above: Performed By: #### B TS, L100.0100, L509.8002, L501.0250, L3890.6006 ####[facility] [address] [place], [address] IG% 0.900 Normal 0.0-0.9 [facility] Comment on above: Result Comment: IG% - Immature Granulocytes (promyelocytes, myelocytes andmetamyelocytes) > 1% indicates that a LEFT SHIFT is Present. Performed By: #### B TS, L100.0100, L509.8002, L501.0250, L3890.6006 ####[facility] [address] [place], [address] Lymphocytes/100 WBC (Bld) 9.0 % Low 19-41 [facility] Comment on above: Performed By: #### B TS, L100.0100, L509.8002, L501.0250, L3890.6006 ####[facility] [address] [place], [address] MCH (RBC) [Entitic mass] 31.2 pg Normal 27.0-32.0 [facility] Comment on above: Performed By: #### B TS, L100.0100, L509.8002, L501.0250, L3890.6006 ####[facility] [address] [place], [address] MCHC (RBC) [Mass/Vol] 34.7 g/dL Normal 32-36 [facility] Comment on above: Performed By: #### B TS, L100.0100, L509.8002, L501.0250, L3890.6006 ####[facility] [address] [place], [address] MCV (RBC) [Entitic vol] 89.9 fL Normal 81-99 [facility] Comment on above: Performed By: #### B TS, L100.0100, L509.8002, L501.0250, L3890.6006 ####[facility] [address] [place], [address] Monocytes/100 WBC (Bld) 4.7 % Normal 0-10 [facility] Comment on above: Performed By: #### B TS, L100.0100, L509.8002, L501.0250, L3890.6006 ####[facility] [address] [place], [address] Neutrophils/100 WBC (Bld) 84.4 % High 47-70 [facility] Comment on above: Performed By: #### B TS, L100.0100, L509.8002, L501.0250, L3890.6006 ####[facility] [address] [place], [address] Nucleated RBC (Bld) [#/Vol] 0 10*3/uL Normal 0-5 [facility] Comment on above: Performed By: #### B TS, L100.0100, L509.8002, L501.0250, L3890.6006 ####[facility] [address] [place], [address] Platelet mean volume (Bld) [Entitic vol] 10.7 fL Normal 6.2-12.0 [facility] Comment on above: Performed By: #### B TS, L100.0100, L509.8002, L501.0250, L3890.6006 ####[facility] [address] [place], [address] Platelets (Bld) [#/Vol] 240 10*3/uL Normal 150-450 [facility] Comment on above: Performed By: #### B TS, L100.0100, L509.8002, L501.0250, L3890.6006 ####[facility] [address] [place], [address] RBC (Bld) [#/Vol] 3.75 10*6/uL Low 4.2-5.4 [facility] [place] [facility] Comment on above: Performed By: #### B TS, L100.0100, L509.8002, L501.0250, L3890.6006 ####[facility] [address] [place], [address] RDW SD 41.4 fl Normal 35.1-43.9 [facility] Comment on above: Performed By: #### B TS, L100.0100, L509.8002, L501.0250, L3890.6006 ####[facility] [address] [place], [address] WBC (Bld) [#/Vol] 10.1 10*3/uL Normal 4.4-11.0 [facility] [facility] Comment on above: Performed By: #### B TS, L100.0100, L509.8002, L501.0250, L3890.6006 ####[facility] [address] [place], [place], [address] Glucose Challenge Gest 1H 50 hayley 01-24-2025 GLU GEST 50g 1H 151 mg/dL High 70-140 [facility] Comment on above: Performed By: #### B TS, L100.0100, L509.8002, L501.0250, L3890.6006 ####[facility] [address] [place], [address] HIVon 01-24-2025 HIV Non-Reactive Normal Nonreactive [facility] Comment on above: Result Comment: Non- ReactiveReactiveRepeatedly reactive samples must be confirmed according [facility] recommended confirmatory algorithms. The subresults foreither HIVAG or AHIV can be used as an aid in the selectionof the confirmation algorithm for reactive samples.Send out specimens with Reactive results to [facility] forconfirmation.Order the HIV antibody detection and differentiation:lc#[id number] Performed By: #### B TS, L100.0100, L509.8002, L501.0250, L3890.6006 ####[facility] [address] [place], [address] Natural Resource Manager Office Visit Reporton 01-24-2025 Natural Resource Manager Office Visit Report Normal [facility] Syphilis Antibodieson 2024 Syphilis Abs Non-Reactive Normal Nonreactive [facility] Comment on above: Performed By: #### B TS, L100.0100, L509.8002, L501.0250, L3890.6006 ####[facility] [address] [place], [place], [address] Type AND Screenon 01-24-2025 Ab SCREEN GEL Negative Normal [facility] Comment on above: Order Comment: PN Performed By: #### B TS, L100.0100, L509.8002, L501.0250, L3890.6006 ####[facility] [address] [place], [address] Natural Resource Manager Office Visit Reporton 01-06-2025 Natural Resource Manager Office Visit Report Normal [facility] 24 HR UR Creatinine Clearanc yanet 12-29-2024 CREAT CLEARANCE 155 ml/min Normal 100-200 [facility] Comment on above: Order Comment: 3150 ML Performed By: #### L 500.4507, L500.9000, L501.1105 ####[facility] [address] [place], [address] Creatinine [Mass/Vol] 0.6 mg/dL Normal 0.6-1.0 [facility] Comment on above: Order Comment: 3150 ML Performed By: #### L 500.4507, L500.9000, L501.1105 ####[facility] [address] [place], [address] RANDOM UR TV 3150.0 ML Normal [facility] Comment on above: Order Comment: 3150 ML Performed By: #### L 500.4507, L500.9000, L501.1105 ####[facility] [address] [place], [address] Protein, Urine 24HRon 2024 UR COLLECT TIME 24.0 HOURS Normal 24.0 [facility] Comment on above: Order Comment: 3150 ML Performed By: #### L 500.4507, L500.9000, L501.1105 ####[facility] [address] [place], [address] UR TOTAL VOLUME 3150 mL Normal [facility] Comment on above: Order Comment: 3150 ML Performed By: #### L 500.4507, L500.9000, L501.1105 ####[facility] [address] [place], [address] Serum Creatinine AND GFRon 0 - Creatinine [Mass/Vol] 0.56 mg/dL Low 0.70-1.20 [facility] Comment on above: Performed By: #### L 500.4507, L500.9000, L501.1105 ####[facility] [address] [place], [address] GFR/1.73 sq M.predicted among non-blacks MDRD (S/P/Bld) [Vol rate/Area] 131 mL/min/{1.73_m2} Normal >60 [facility] Comment on above: Result Comment: mL/m in/1.73m2 CKD-EPI Creatinine Equation (2020) Performed By: #### L 500.4507, L500.9000, L501.1105 ####[facility] [address] [place], [address] CBC W/Diff, Automatedon 07-2 Absolute Lymph 1.31 X10 3/uL Normal 0.83-4.51 [facility] Comment on above: Performed By: #### L 501.0900, L500.4050, L100.0100 ####[facility] [address] [place], [address] Absolute Neut 8.8 X10 3/uL High 2.0-7.7 [facility] Comment on above: Performed By: #### L 501.0900, L500.4050, L100.0100 ####[facility] [address] [place], [address] Basophils/100 WBC (Bld) 0.2 % Normal 0-1 [facility] Comment on above: Performed By: #### L 501.0900, L500.4050, L100.0100 ####[facility] [address] [place], [address] Eosinophils/100 WBC (Bld) 0.8 % Normal 0-5 [facility] Comment on above: Performed By: #### L 501.0900, L500.4050, L100.0100 ####[facility] [address] [place], [address] Erythrocyte distribution width (RBC) [Ratio] 12.8 % Normal 11.6-14.6 [facility] Comment on above: Performed By: #### L 501.0900, L500.4050, L100.0100 ####[facility] [address] [place], [address] Hematocrit (Bld) [Volume fraction] 33.8 % Low 37-47 [facility] Comment on above: Performed By: #### L 501.0900, L500.4050, L100.0100 ####[facility] [address] [place], [address] Hemoglobin (Bld) [Mass/Vol] 11.9 g/dL Low 12.0-15.0 [facility] Comment on above: Performed By: #### L 501.0900, L500.4050, L100.0100 ####[facility] [address] [place], [address] IG% 0.500 Normal 0.0-0.9 [facility] Comment on above: Result Comment: IG% - Immature Granulocytes (promyelocytes, myelocytes andmetamyelocytes) > 1% indicates that a LEFT SHIFT is Present. Performed By: #### L 501.0900, L500.4050, L100.0100 ####[facility] [address] [place], [address] Lymphocytes/100 WBC (Bld) 12.0 % Low 19-41 [facility] Comment on above: Performed By: #### L 501.0900, L500.4050, L100.0100 ####[facility] [address] [place], [address] MCH (RBC) [Entitic mass] 32.2 pg High 27.0-32.0 [facility] Comment on above: Performed By: #### L 501.0900, L500.4050, L100.0100 ####[facility] [address] [place], [address] MCHC (RBC) [Mass/Vol] 35.2 g/dL Normal 32-36 [facility] Comment on above: Performed By: #### L 501.0900, L500.4050, L100.0100 ####[facility] [address] [place], [address] MCV (RBC) [Entitic vol] 91.4 fL Normal 81-99 [facility] Comment on above: Performed By: #### L 501.0900, L500.4050, L100.0100 ####[facility] [address] [place], [address] Monocytes/100 WBC (Bld) 6.2 % Normal 0-10 [facility] Comment on above: Performed By: #### L 501.0900, L500.4050, L100.0100 ####[facility] [address] [place], [address] Neutrophils/100 WBC (Bld) 80.3 % High 47-70 [facility] Comment on above: Performed By: #### L 501.0900, L500.4050, L100.0100 ####[facility] [address] [place], [address] Nucleated RBC (Bld) [#/Vol] 0 10*3/uL Normal 0-5 [facility] Comment on above: Performed By: #### L 501.0900, L500.4050, L100.0100 ####[facility] [address] [place], [address] Platelet mean volume (Bld) [Entitic vol] 10.4 fL Normal 6.2-12.0 [facility] Comment on above: Performed By: #### L 501.0900, L500.4050, L100.0100 ####[facility] [address] [place], [address] Platelets (Bld) [#/Vol] 233 10*3/uL Normal 150-450 [facility] Comment on above: Performed By: #### L 501.0900, L500.4050, L100.0100 ####[facility] [address] [place], [address] RBC (Bld) [#/Vol] 3.70 10*6/uL Low 4.2-5.4 [facility] [facility] Comment on above: Performed By: #### L 501.0900, L500.4050, L100.0100 ####[facility] [address] [place], [address] RDW SD 42.2 fl Normal 35.1-43.9 [facility] Comment on above: Performed By: #### L 501.0900, L500.4050, L100.0100 ####[facility] [address] [place], [address] WBC (Bld) [#/Vol] 10.9 10*3/uL Normal 4.4-11.0 [facility] [facility] Comment on above: Performed By: #### L 501.0900, L500.4050, L100.0100 ####[facility] [address] [place], [address] Comprehensive Metabolic Prof [facility] 12-26-2024 Albumin [Mass/Vol] 3.5 g/dL Normal 3.5-5.0 [facility] Comment on above: Performed By: #### L 501.0900, L500.4050, L100.0100 ####[facility] [address] [place], [address] Albumin/Globulin [Mass ratio] 1.1 {ratio} Normal 0.9-2.4 [facility] Comment on above: Performed By: #### L 501.0900, L500.4050, L100.0100 ####[facility] [address] [place], [address] ALK PHOS 67 U/L Normal 35-104 [facility] Comment on above: Performed By: #### L 501.0900, L500.4050, L100.0100 ####[facility] [address] [place], [address] ALT [Catalytic activity/Vol] 9 U/L Normal <=34 [facility] Comment on above: Performed By: #### L 501.0900, L500.4050, L100.0100 ####[facility] [address] [place], [address] AST [Catalytic activity/Vol] 15 U/L Normal <=31 [facility] Comment on above: Performed By: #### L 501.0900, L500.4050, L100.0100 ####[facility] [address] [place], [address] Bilirubin [Mass/Vol] 0.18 mg/dL Normal 0.00-1.30 [facility] Comment on above: Performed By: #### L 501.0900, L500.4050, L100.0100 ####[facility] [address] [place], [address] BUN/CRE 10.2 RATIO Normal 10-20 [facility] Comment on above: Performed By: #### L 501.0900, L500.4050, L100.0100 ####[facility] [address] [place], [address] Calcium [Mass/Vol] 9.4 mg/dL Normal 7.6-11.0 [facility] Comment on above: Performed By: #### L 501.0900, L500.4050, L100.0100 ####[facility] [address] [place], [address] Chloride [Moles/Vol] 103 mmol/L Normal 98-108 [facility] Comment on above: Performed By: #### L 501.0900, L500.4050, L100.0100 ####[facility] [address] [place], [address] CO2 [Moles/Vol] 21.3 mmol/L Normal 21.0-32.0 [facility] Comment on above: Performed By: #### L 501.0900, L500.4050, L100.0100 ####[facility] [address] [place], [address] Creatinine [Mass/Vol] 0.50 mg/dL Low 0.70-1.20 [facility] Comment on above: Performed By: #### L 501.0900, L500.4050, L100.0100 ####[facility] [address] [place], [address] GAP 11 Normal 5-15 [facility] Comment on above: Performed By: #### L 501.0900, L500.4050, L100.0100 ####[facility] [address] [place], [address] GFR/1.73 sq M.predicted among non-blacks MDRD (S/P/Bld) [Vol rate/Area] 135 mL/min/{1.73_m2} Normal >60 [facility] Comment on above: Result Comment: mL/m in/1.73m2 CKD-EPI Creatinine Equation (2020) Performed By: #### L 501.0900, L500.4050, L100.0100 ####[facility] [address] [place], [address] Globulin (S) [Mass/Vol] 3.1 g/dL Normal 2.2-4.2 [facility] Comment on above: Performed By: #### L 501.0900, L500.4050, L100.0100 ####[facility] [address] [place], [address] Glucose [Mass/Vol] 98 mg/dL Normal 70-99 [facility] Comment on above: Performed By: #### L 501.0900, L500.4050, L100.0100 ####[facility] [address] [place], [address] Potassium [Moles/Vol] 3.9 mmol/L Normal 3.3-5.1 [facility] Comment on above: Performed By: #### L 501.0900, L500.4050, L100.0100 ####[facility] [address] [place], [address] Sodium [Moles/Vol] 136 mmol/L Normal 133-145 [facility] Comment on above: Performed By: #### L 501.0900, L500.4050, L100.0100 ####[facility] [address] [place], [address] T PROT 6.5 g/dL Normal 5.9-8.4 [facility] Comment on above: Performed By: #### L 501.0900, L500.4050, L100.0100 ####[facility] [address] [place], [address] Urea nitrogen [Mass/Vol] 5 mg/dL Normal 4-19 [facility] Comment on above: Performed By: #### L 501.0900, L500.4050, L100.0100 ####[facility] [address] [place], [address] Natural Resource Manager Office Visit Reporton 12-26-2024 Natural Resource Manager Office Visit Report Normal [facility] Protein+Creatinine Ratio,Uri neon 12-26-2024 PROT:CRE RATIO 315 mg/g CRE High 0-200 [facility] Comment on above: Performed By: #### L 501.0900, L500.4050, L100.0100 ####[facility] [address] [place], [address] Protein (U) [Mass/Vol] 8.4 mg/dL Normal 0.0-12.0 [facility] Comment on above: Performed By: #### L 501.0900, L500.4050, L100.0100 ####[facility] [address] [place], [address] UR CREAT 26.60 mg/dL Low 28.00-217.00 [facility] Comment on above: Performed By: #### L 501.0900, L500.4050, L100.0100 ####[facility] [address] [place], [address] Urine Cultureon 12-08-2024 URC Mixed Gram Positive Organisms Citra Count 25,000-50,000 MIXC Mixed contaminants. Submit a new specimen if indicated. Normal [facility] Comment on above: Performed By: #### M 100.2200 ####[facility] [address] [place], [address] Natural Resource Manager Office Visit Reporton 12-07-2024 Natural Resource Manager Office Visit Report Normal [facility] CBC W/Diff, Automatedon Absolute Lymph 1.34 X10 3/uL Normal 0.83-4.51 [facility] Comment on above: Performed By: #### L 100.0100, L500.4050 ####[facility] [address] [place], [address] Absolute Neut 8.6 X10 3/uL High 2.0-7.7 [facility] Comment on above: Performed By: #### L 100.0100, L500.4050 ####[facility] [address] [place], [address] Basophils/100 WBC (Bld) 0.2 % Normal 0-1 [facility] Comment on above: Performed By: #### L 100.0100, L500.4050 ####[facility] [address] [place], [address] Eosinophils/100 WBC (Bld) 0.7 % Normal 0-5 [facility] Comment on above: Performed By: #### L 100.0100, L500.4050 ####[facility] [address] [place], [address] Erythrocyte distribution width (RBC) [Ratio] 13.1 % Normal 11.6-14.6 [facility] Comment on above: Performed By: #### L 100.0100, L500.4050 ####[facility] [address] [place], [address] Hematocrit (Bld) [Volume fraction] 34.3 % Low 37-47 [facility] Comment on above: Performed By: #### L 100.0100, L500.4050 ####[facility] [address] [place], [address] Hemoglobin (Bld) [Mass/Vol] 11.9 g/dL Low 12.0-15.0 [facility] Comment on above: Performed By: #### L 100.0100, L500.4050 ####[facility] [address] [place], [address] IG% 0.600 Normal 0.0-0.9 [facility] Comment on above: Result Comment: IG% - Immature Granulocytes (promyelocytes, myelocytes andmetamyelocytes) > 1% indicates that a LEFT SHIFT is Present. Performed By: #### L 100.0100, L500.4050 ####[facility] [address] [place], [address] Lymphocytes/100 WBC (Bld) 12.4 % Low 19-41 [facility] Comment on above: Performed By: #### L 100.0100, L500.4050 ####[facility] [address] [place], [address] MCH (RBC) [Entitic mass] 32.3 pg High 27.0-32.0 [facility] Comment on above: Performed By: #### L 100.0100, L500.4050 ####[facility] [address] [place], [address] MCHC (RBC) [Mass/Vol] 34.7 g/dL Normal 32-36 [facility] Comment on above: Performed By: #### L 100.0100, L500.4050 ####[facility] [address] [place], [address] MCV (RBC) [Entitic vol] 93.2 fL Normal 81-99 [facility] Comment on above: Performed By: #### L 100.0100, L500.4050 ####[facility] [address] [place], [address] Monocytes/100 WBC (Bld) 6.9 % Normal 0-10 [facility] Comment on above: Performed By: #### L 100.0100, L500.4050 ####[facility] [address] [place], [address] Neutrophils/100 WBC (Bld) 79.2 % High 47-70 [facility] Comment on above: Performed By: #### L 100.0100, L500.4050 ####[facility] [address] [place], [address] Nucleated RBC (Bld) [#/Vol] 0 10*3/uL Normal 0-5 [facility] Comment on above: Performed By: #### L 100.0100, L500.4050 ####[facility] [address] [place], [id number] Platelet mean volume (Bld) [Entitic vol] 10.6 fL Normal 6.2-12.0 [facility] Comment on above: Performed By: #### L 100.0100, L500.4050 ####[facility] [address] [place], [id number] Platelets (Bld) [#/Vol] 246 10*3/uL Normal 150-450 [facility] Comment on above: Performed By: #### L 100.0100, L500.4050 ####[facility] [address] [place], [id number] RBC (Bld) [#/Vol] 3.68 10*6/uL Low 4.2-5.4 [facility] Comment on above: Performed By: #### L 100.0100, L500.4050 ####[facility] [address] [place], [id number] RDW SD 44.2 fl High 35.1-43.9 [facility] Comment on above: Performed By: #### L 100.0100, L500.4050 ####[facility] [address] [place], [id number] WBC (Bld) [#/Vol] 10.8 10*3/uL Normal 4.4-11.0 [facility] Comment on above: Performed By: #### L 100.0100, L500.4050 ####[facility] [address] [place], [id number] Comprehensive Metabolic Prof ilon 12-06-2024 Albumin [Mass/Vol] 3.4 g/dL Low 3.5-5.0 [facility] Comment on above: Performed By: #### L 100.0100, L500.4050 ####[facility] [address] [place], [address] Albumin/Globulin [Mass ratio] 1.1 {ratio} Normal 0.9-2.4 [facility] Comment on above: Performed By: #### L 100.0100, L500.4050 ####[facility] [address] [place], [address] ALK PHOS 70 U/L Normal 35-104 [facility] Comment on above: Performed By: #### L 100.0100, L500.4050 ####[facility] [address] [place], [address] ALT [Catalytic activity/Vol] 10 U/L Normal <=34 [facility] Comment on above: Performed By: #### L 100.0100, L500.4050 ####[facility] [address] [place], [address] AST [Catalytic activity/Vol] 17 U/L Normal <=31 [facility] Comment on above: Performed By: #### L 100.0100, L500.4050 ####[facility] [address] [place], [address] BUN/CRE 7.7 RATIO Low 10-20 [facility] Comment on above: Performed By: #### L 100.0100, L500.4050 ####[facility] [address] [place], [address] Calcium [Mass/Vol] 8.9 mg/dL Normal 7.6-11.0 [facility] Comment on above: Performed By: #### L 100.0100, L500.4050 ####[facility] [address] [place], [address] Chloride [Moles/Vol] 104 mmol/L Normal 98-108 [facility] Comment on above: Performed By: #### L 100.0100, L500.4050 ####[facility] [address] [place], [address] CO2 [Moles/Vol] 23.0 mmol/L Normal 21.0-32.0 [facility] Comment on above: Performed By: #### L 100.0100, L500.4050 ####[facility] [address] [place], [address] Creatinine [Mass/Vol] 0.52 mg/dL Low 0.70-1.20 [facility] Comment on above: Performed By: #### L 100.0100, L500.4050 ####[facility] [address] [place], [address] ECRCL 199.56 ml/min Normal 50-250 [facility] Comment on above: Performed By: #### L 100.0100, L500.4050 ####[facility] [address] [place], [address] GAP 10 Normal 5-15 [facility] Comment on above: Performed By: #### L 100.0100, L500.4050 ####[facility] [address] [place], [address] GFR/1.73 sq M.predicted among non-blacks MDRD (S/P/Bld) [Vol rate/Area] 134 mL/min/{1.73_m2} Normal >60 [facility] Comment on above: Result Comment: mL/m in/1.73m2 CKD-EPI Creatinine Equation (2020) Performed By: #### L 100.0100, L500.4050 ####[facility] [address] [place], [address] Globulin (S) [Mass/Vol] 3.0 g/dL Normal 2.2-4.2 [facility] Comment on above: Performed By: #### L 100.0100, L500.4050 ####[facility] [address] [place], [address] Glucose [Mass/Vol] 94 mg/dL Normal 70-99 [facility] Comment on above: Performed By: #### L 100.0100, L500.4050 ####[facility] [address] [place], [address] Potassium [Moles/Vol] 3.6 mmol/L Normal 3.3-5.1 [facility] Comment on above: Performed By: #### L 100.0100, L500.4050 ####[facility] [address] [place], [address] Sodium [Moles/Vol] 137 mmol/L Normal 133-145 [facility] Comment on above: Performed By: #### L 100.0100, L500.4050 ####[facility] [address] [place], [address] T BILI < 0.15 Normal 0.00-1.30 [facility] Comment on above: Performed By: #### L 100.0100, L500.4050 ####[facility] [address] [place], [address] T PROT 6.5 g/dL Normal 5.9-8.4 [facility] Comment on above: Performed By: #### L 100.0100, L500.4050 ####[facility] [address] [place], [address] Urea nitrogen [Mass/Vol] 4 mg/dL Normal 4-19 [facility] Comment on above: Performed By: #### L 100.0100, L500.4050 ####[facility] [address] [place], [address] Emergency Department Summary on 12-06-2024 Emergency Department Summary Normal [facility] Urinalysis, Completeon 12-06 AMORPHOUS 1+ Normal [facility] Comment on above: Order Comment: CLEAN CATCH Performed By: #### L 400.0001 ####[facility] [address] [place], [address] BACTERIA 1+ /hpf Normal None Seen [facility] Comment on above: Order Comment: CLEAN CATCH Performed By: #### L 400.0001 ####[facility] [address] [place], [address] EPI,SQUAMOUS 10-25 SEEN Normal 5-10 [facility] Comment on above: Order Comment: CLEAN CATCH Performed By: #### L 400.0001 ####[facility] [address] [place], [address] RBC 0-5 SEEN Normal 0-5 [facility] Comment on above: Order Comment: CLEAN CATCH Performed By: #### L 400.0001 ####[facility] [address] [place], [address] WBC 10-25 SEEN Normal 0-5 [facility] Comment on above: Order Comment: CLEAN CATCH Performed By: #### L 400.0001 ####[facility] [address] [place], [address] Mucus Ql (Urine sed) 0 SEEN Normal [facility] Comment on above: Order Comment: CLEAN CATCH Performed By: #### L 400.0001 ####[facility] [address] [place], [address] Natural Resource Manager Office Visit Reporton 11-09-2024 Natural Resource Manager Office Visit Report Normal [facility] Chlamydia/GC SANTY aptimaon CHLAMY,NUC ACID Negative Normal Negative [facility] Comment on above: Performed By: #### L 7000.1800 ####[facility] [address] [place], [address] GC BY NUC ACID Negative Normal Negative [facility] Comment on above: Result Comment: Perf ormed at: =G - [facility] [address] [place] [id number] Director: Monisha Ross MD, Phone: [phone] Performed By: #### L 7000.1800 ####[facility] [address] [place], [place], [address] Natural Resource Manager Office Visit Reporton 11-04-2024 Natural Resource Manager Office Visit Report Normal [facility] Type AND Screenon 11-04-2024 Ab SCREEN GEL Negative Normal [facility] Comment on above: Order Comment: PN Performed By: #### B TS ####[facility] [address] [place], [place], [id number] Natural Resource Manager Office Visit Reporton 10-13-2024 Natural Resource Manager Office Visit Report Normal [facility] Natural Resource Manager Office Visit Reporton 10-05-2024 Natural Resource Manager Office Visit Report Normal [facility] CBC W/Diff, Automatedon 04- Absolute Lymph 1.38 X10 3/uL Normal 0.83-4.51 [facility] Comment on above: Performed By: #### L 3890.6006, L509.8002, L509.4006, BTS, L3890.6301, L100.0100, L3890.6102, L900.0098 ####[facility] [address] [place], [place], [id number] Absolute Neut 9.1 X10 3/uL High 2.0-7.7 [facility] Comment on above: Performed By: #### L 3890.6006, L509.8002, L509.4006, BTS, L3890.6301, L100.0100, L3890.6102, L900.0098 ####[facility] [address] [place], [address] Basophils/100 WBC (Bld) 0.3 % Normal 0-1 [facility] Comment on above: Performed By: #### L 3890.6006, L509.8002, L509.4006, BTS, L3890.6301, L100.0100, L3890.6102, L900.0098 ####[facility] [address] [place], [address] Eosinophils/100 WBC (Bld) 0.8 % Normal 0-5 [facility] Comment on above: Performed By: #### L 3890.6006, L509.8002, L509.4006, BTS, L3890.6301, L100.0100, L3890.6102, L900.0098 ####[facility] [address] [place], [address] Erythrocyte distribution width (RBC) [Ratio] 13.6 % Normal 11.6-14.6 [facility] Comment on above: Performed By: #### L 3890.6006, L509.8002, L509.4006, BTS, L3890.6301, L100.0100, L3890.6102, L900.0098 ####[facility] [address] [place], [address] Hematocrit (Bld) [Volume fraction] 38.6 % Normal 37-47 [facility] Comment on above: Performed By: #### L 3890.6006, L509.8002, L509.4006, BTS, L3890.6301, L100.0100, L3890.6102, L900.0098 ####[facility] [address] [place], [address] Hemoglobin (Bld) [Mass/Vol] 13.3 g/dL Normal 12.0-15.0 [facility] Comment on above: Performed By: #### L 3890.6006, L509.8002, L509.4006, BTS, L3890.6301, L100.0100, L3890.6102, L900.0098 ####[facility] [address] [place], [address] IG% 0.500 Normal 0.0-0.9 [facility] Comment on above: Result Comment: IG% - Immature Granulocytes (promyelocytes, myelocytes andmetamyelocytes) > 1% indicates that a LEFT SHIFT is Present. Performed By: #### L 3890.6006, L509.8002, L509.4006, BTS, L3890.6301, L100.0100, L3890.6102, L900.0098 ####[facility] [address] [place], [address] Lymphocytes/100 WBC (Bld) 12.0 % Low 19-41 [facility] Comment on above: Performed By: #### L 3890.6006, L509.8002, L509.4006, BTS, L3890.6301, L100.0100, L3890.6102, L900.0098 ####[facility] [address] [place], [address] MCH (RBC) [Entitic mass] 30.6 pg Normal 27.0-32.0 [facility] Comment on above: Performed By: #### L 3890.6006, L509.8002, L509.4006, BTS, L3890.6301, L100.0100, L3890.6102, L900.0098 ####[facility] [address] [place], [address] MCHC (RBC) [Mass/Vol] 34.5 g/dL Normal 32-36 [facility] Comment on above: Performed By: #### L 3890.6006, L509.8002, L509.4006, BTS, L3890.6301, L100.0100, L3890.6102, L900.0098 ####[facility] [address] [place], [address] MCV (RBC) [Entitic vol] 88.7 fL Normal 81-99 [facility] Comment on above: Performed By: #### L 3890.6006, L509.8002, L509.4006, BTS, L3890.6301, L100.0100, L3890.6102, L900.0098 ####[facility] [address] [place], [address] Monocytes/100 WBC (Bld) 7.5 % Normal 0-10 [facility] Comment on above: Performed By: #### L 3890.6006, L509.8002, L509.4006, BTS, L3890.6301, L100.0100, L3890.6102, L900.0098 ####[facility] [address] [place], [address] Neutrophils/100 WBC (Bld) 78.9 % High 47-70 [facility] Comment on above: Performed By: #### L 3890.6006, L509.8002, L509.4006, BTS, L3890.6301, L100.0100, L3890.6102, L900.0098 ####[facility] [address] [place], [address] Nucleated RBC (Bld) [#/Vol] 0 10*3/uL Normal 0-5 [facility] Comment on above: Performed By: #### L 3890.6006, L509.8002, L509.4006, BTS, L3890.6301, L100.0100, L3890.6102, L900.0098 ####[facility] [address] [place], [address] Platelet mean volume (Bld) [Entitic vol] 10.6 fL Normal 6.2-12.0 [facility] Comment on above: Performed By: #### L 3890.6006, L509.8002, L509.4006, BTS, L3890.6301, L100.0100, L3890.6102, L900.0098 ####[facility] [address] [place], [address] Platelets (Bld) [#/Vol] 274 10*3/uL Normal 150-450 [facility] Comment on above: Performed By: #### L 3890.6006, L509.8002, L509.4006, BTS, L3890.6301, L100.0100, L3890.6102, L900.0098 ####[facility] [address] [place], [address] RBC (Bld) [#/Vol] 4.35 10*6/uL Normal 4.2-5.4 [facility] Comment on above: Performed By: #### L 3890.6006, L509.8002, L509.4006, BTS, L3890.6301, L100.0100, L3890.6102, L900.0098 ####[facility] [address] [place], [address] RDW SD 44.1 fl High 35.1-43.9 [facility] Comment on above: Performed By: #### L 3890.6006, L509.8002, L509.4006, BTS, L3890.6301, L100.0100, L3890.6102, L900.0098 ####[facility] [address] [place], [address] WBC (Bld) [#/Vol] 11.5 10*3/uL High 4.4-11.0 [facility] Comment on above: Performed By: #### L 3890.6006, L509.8002, L509.4006, BTS, L3890.6301, L100.0100, L3890.6102, L900.0098 ####[facility] [address] [place], [place], [address] HIVon 09-19-2024 HIV Non-Reactive Normal Nonreactive [facility] Comment on above: Result Comment: Non- ReactiveReactiveRepeatedly reactive samples must be confirmed according [facility] recommended confirmatory algorithms. The subresults foreither HIVAG or AHIV can be used as an aid in the selectionof the confirmation algorithm for reactive samples.[facility] out [facility] with [facility].Order the HIV antibody detection and differentiation:#[id number] Performed By: #### L 3890.6006, L509.8002, L509.4006, BTS, L3890.6301, L100.0100, L3890.6102, L900.0098 ####[facility] [address] [place], [place], [address] Hepatitis C Antibodyon 09-19 Hepatitis C Ab Non-Reactive Normal Nonreactive [facility] Comment on above: Result Comment: Reac tive: Presumptive evidence of antibodies to HCV. [facility] for supplemental testing.Non-Reactive: Antibodies to HCV were not detected; does notexclude the possibility of exposure to HCVReactive Results are presumptive evidence of antibodies toHCV. Follow CDC recommendations for supplemental testing.Order confirmation testing: HCV Quant by PCR testing -HCVPCR #[id number] Non Reactive: < 0.8 Equivocal: >/= 0.8 to < 1.0 Reactive: >/= 1.0The [facility] requires that a reactive/equivocal HCV antibodyresult be sent out for confirmation. HCV Quant by PCRtesting. Performed By: #### L 3890.6006, L509.8002, L509.4006, BTS, L3890.6301, L100.0100, L3890.6102, L900.0098 ####[facility] [address] [place], [place], [address] L3890.6102on 09-19-2024 HEP B Surf Ag Non-Reactive Normal Nonreactive [facility] Comment on above: Result Comment: Reac tive: Presumptive evidence of HBV. Repeatedly reactivesamples must be confirmed using a neutralization test([employer] HBsAg Confirmatory Test)Non-Reactive: HBsAg not detected; does not exclude thepossibility of exposure to HBV Performed By: #### L 3890.6006, L509.8002, L509.4006, BTS, L3890.6301, L100.0100, L3890.6102, L900.0098 ####[facility] [address] [place], [address] L509.4006on 09-19-2024 Rubella IgG REAC Normal Nonreactive [facility] Comment on above: Result Comment: Anti body Result: InterpretationNon-Reactive: Non-ImmuneReactive: ImmuneThe following results were obtained with the ElecsysRubella IgG assay. Results from assays of othermanufacturers cannot be used interchangeably. Performed By: #### L 3890.6006, L509.8002, L509.4006, BTS, L3890.6301, L100.0100, L3890.6102, L900.0098 ####[facility] [address] [place], [place], [address] NATERAon 09-19-2024 NATURA SEE SCANNED REPORT Normal [facility] Comment on above: Performed By: #### L 3890.6006, L509.8002, L509.4006, BTS, L3890.6301, L100.0100, L3890.6102, L900.0098 ####[facility] [address] [place], [place], [address] Syphilis Antibodieson 2024 Syphilis Abs Non-Reactive Normal Nonreactive [facility] Comment on above: Performed By: #### L 3890.6006, L509.8002, L509.4006, BTS, L3890.6301, L100.0100, L3890.6102, L900.0098 ####[facility] [address] [place], [place], [address] Type AND Screenon 09-19-2024 Ab SCREEN GEL Negative Normal [facility] Comment on above: Order Comment: PN Performed By: #### L 3890.6006, L509.8002, L509.4006, BTS, L3890.6301, L100.0100, L3890.6102, L900.0098 ####[facility] [address] [place], [address] Natural Resource Manager Office Visit Reporton 09-14-2024 Natural Resource Manager Office Visit Report Normal [facility] Transvaginal w/Preg USon Transvaginal w/Preg US Normal [facility] Natural Resource Manager Office Visit Reporton 08-24-2024 Natural Resource Manager Office Visit Report Normal [facility] Urine Cultureon 08-21-2024 URC Below infection leve l. Mixed Gram Positive Organisms Citra Count <1000 MIXC Mixed contaminants. Submit a new specimen if indicated. Normal [facility] Comment on above: Performed By: #### L 505.5000, M100.2200 ####[facility] [address] [place], [address] Natural Resource Manager Office Visit Reporton 08-19-2024 Natural Resource Manager Office Visit Report Normal [facility] Urine Drug Screen (VISTA)on 08-19-2024 AMPHETAMINES Negative Normal <1000 ng/mL [facility] Comment on above: Order Comment: UNK Performed By: #### L 505.5000, M100.2200 ####[facility] [address] [place], [address] BARBITIURATES Negative Normal < 200 ng/mL [facility] Comment on above: Order Comment: UNK Performed By: #### L 505.5000, M100.2200 ####[facility] [address] [place], [address] BENZODIAZIPINE Negative Normal < 200 ng/mL [facility] Comment on above: Order Comment: UNK Performed By: #### L 505.5000, M100.0 ####[facility] [address] [place], [address] BUP Ur Drug Scr Negative Normal < 200 ng/mL [facility] Comment on above: Order Comment: UNK Performed By: #### L 505.5000, 00.0 ####[facility] [address] [place], [address] COCAINE Negative Normal < 300 ng/mL [facility] Comment on above: Order Comment: UNK Performed By: #### L 505.5000, .0 ####[facility] [address] [place], [address] Fentanyl Negative Normal [facility] Comment on above: Order Comment: UNK Performed By: #### L 505.5000, 0 ####[facility] [address] [place], [address] METHADONE Negative Normal < 300 ng/mL [facility] Comment on above: Order Comment: UNK Performed By: #### L 505.5000, ####[facility] [address] [place], [address] OPIATES Negative Normal < 300 ng/mL [facility] Comment on above: Order Comment: UNK Performed By: #### L 505.5000, .0 ####[facility] [address] [place], [address] OXYCODONE Negative Normal < 100 ng/mL [facility] Comment on above: Order Comment: UNK Performed By: #### L 505.5000, ####[facility] [address] [place], [address] PCP Negative Normal < 25 ng/mL [facility] Comment on above: Order Comment: UNK Performed By: #### L 505.5000, 0 ####[facility] [address] [place], [address] THC Negative Normal < 50 ng/mL [facility] Comment on above: Order Comment: UNK Performed By: #### L 505.5000, M100.2200 ####[facility] [address] [place], [address] B-HCG SerPl-[place]Cn[place] 5 [place] [address].0 m[IU]/mL High <5.0 [facility] Comment on above: Order Comment: Speci men Type: BLOOD SPECIMENOrdering Facility: [facility] Address: [address] [place] [address] Result Comment: DIEGO TITATIVE HCG NORMAL RANGES Weeks of Gestation (Weeks Since LMP) 3 Weeks (5.8-71.2 mIU/mL) 4 Weeks (9.5-750 mIU/mL) 5 Weeks (217-7138 mIU/mL) 6 Weeks (158-94071 mIU/mL) 7 Weeks (3697-890912 mIU/mL) 8 Weeks (25883-385469 mIU/mL) 9 Weeks (97766-759499 mIU/mL) 10 Weeks (34347-292345 mIU/mL) 12 Weeks (21870-481440 mIU/mL) Referenced to 4th IS of [facility] Performed By: #### 2 1198-7 ####[facility] LABCLIA [id number] [place] [address] [place] B-HCG SerPl-[place]Cn[place] 5 [place] [address].0 m[IU]/mL High <5.0 [facility] Comment on above: Order Comment: Speci men Type: BLOOD SPECIMENOrdering Facility: [facility] Address: [address] [place] [address] Result Comment: DIEGO TITATIVE HCG NORMAL RANGES Weeks of Gestation (Weeks Since LMP) 3 Weeks (5.8-71.2 mIU/mL) 4 Weeks (9.5-750 mIU/mL) 5 Weeks (217-7138 mIU/mL) 6 Weeks (158-76331 mIU/mL) 7 Weeks (3697-762458 mIU/mL) 8 Weeks (47172-991355 mIU/mL) 9 Weeks (61064-769990 mIU/mL) 10 Weeks (34239-309669 mIU/mL) 12 Weeks (84492-636292 mIU/mL) Referenced to 4th IS of [facility] Performed By: #### 2 1198-7 ####[facility] LABCLIA [id number] [address] OF [facility] CNPNon 08-12-2024 CNPN Telephone (OBGYWM) -------- ALEJANDRA KIRAN ([id number]) 2 F Date Time Provider Department 08/12/24 [...] Status:Closed by DASHA WELSH on 08/12/24 Normal [facility] B-HCG [facility]-aCncon 5 HCG.beta subunit Qn 8329.0 m[IU]/mL High <5.0 [facility] Comment on above: Order Comment: Speci men Type: BLOOD SPECIMENOrdering Facility: [facility] Address: [address] [place] [address] Result Comment: DIEGO TITATIVE HCG NORMAL RANGES Weeks of Gestation (Weeks Since LMP) 3 Weeks (5.8-71.2 mIU/mL) 4 Weeks (9.5-750 mIU/mL) 5 Weeks (217-7138 mIU/mL) 6 Weeks (158-49520 mIU/mL) 7 Weeks (3697-483334 mIU/mL) 8 Weeks (09186-491595 mIU/mL) 9 Weeks (10188-904038 mIU/mL) 10 Weeks (43277-926461 mIU/mL) 12 Weeks (40476-461947 mIU/mL) Referenced to 4th IS of [facility] Performed By: #### 2 1198-7 ####[facility] LABCLIA [id number] [place] [address] [place] Bacteria Ur Culton Bacteria identified Cx Nom (U) ORGANISM ID: 1 10,000 -<50,000 CFU/ml Normal urogenital jhony Normal [facility] Comment on above: Performed By: #### 6 30-4 ####[facility] LABCLIA [id number] [place] [address] [place] C. trachomatis+N. gonorrhoea e DNA SNATY+probe Ql (Unsp spec)on 08-11-2024 C. trachomatis rRNA SANTY+probe Ql (Unsp spec) Not detected Normal Not detected [facility] Comment on above: Order Comment: Speci men Type: SWABOrdering Facility: [facility] Address: [address] [place] [address] Performed By: #### 3 6902-5, TRVAELIANE ####[facility] LABIA [id number] [address] [place] N. gonorrhoeae rRNA SANTY+probe Ql (Unsp spec) Not detected Normal Not detected [facility] Comment on above: Order Comment: Speci men Type: SWABOrdering Facility: [facility] Address: [address] [place] [address] Performed By: #### 3 6902-5, TRVAMP ####[facility] LABIA [id number] [place] [address] [place] CBC W Auto Differential pane l (Bld)on 08-11-2024 Basophils (Bld) [#/Vol] 10*3/uL Normal <0.11 [facility] Comment on above: Order Comment: Speci men Type: BLOOD SPECIMENOrdering Facility: [facility] Address: [address] [place] [address] Performed By: #### 5 7021-8 ####[facility] BRENNANWSILASLIA [id number] [place] [address] [place] Basophils/100 WBC (Bld) 0.2 % Normal [facility] Comment on above: Order Comment: Speci men Type: BLOOD SPECIMENOrdering Facility: [facility] Address: [address] [place] [address] Performed By: #### 5 7021-8 ####[facility]PITALLIA [id number] [place] [address] [place] Differential cell count method Nom (Bld) Auto Normal [facility] Comment on above: Order Comment: Speci men Type: BLOOD SPECIMENOrdering Facility: [facility] Address: [address] [place] [address] Performed By: #### 5 7021-8 ####[facility]PITALLIA [id number] [place] [address] [place] Eosinophils (Bld) [#/Vol] 0.11 10*3/uL Normal <0.46 [facility] Comment on above: Order Comment: Speci men Type: BLOOD SPECIMENOrdering Facility: [facility] Address: [address] [place] [address] Performed By: #### 5 7021-8 ####[facility] BRENNANWNCLIA [id number] [place] [address] [place] Eosinophils/100 WBC (Bld) 1.4 % Normal [facility] Comment on above: Order Comment: Speci men Type: BLOOD SPECIMENOrdering Facility: [facility] Address: [address] [place] [address] Performed By: #### 5 7021-8 ####[facility]ITALNCLIA [id number] [place] [id number] [place] Erythrocyte distribution width (RBC) [Ratio] 14.1 % Normal 11.5-15.0 [facility] Comment on above: Order Comment: Speci men Type: BLOOD SPECIMENOrdering Facility: [facility] Address: [address] [place] [address] Performed By: #### 5 7021-8 ####[facility]ITALSILASLIA [id number] [place] [address] [place] Hematocrit (Bld) [Volume fraction] 40.2 % Normal 36.0-46.0 [facility] Comment on above: Order Comment: Speci men Type: BLOOD SPECIMENOrdering Facility: [facility] Address: [address] [place] [address] Performed By: #### 5 7021-8 ####[facility]ITALNCLIA [id number] [place] [address] [place] Hemoglobin (Bld) [Mass/Vol] 13.7 g/dL Normal 11.5-15.5 [facility] Comment on above: Order Comment: Speci men Type: BLOOD SPECIMENOrdering Facility: [facility] Address: [address] [place] [address] Performed By: #### 5 7021-8 ####[facility]ITALLIA [id number] [place] [address] [place] Immature granulocytes (Bld) [#/Vol] 10*3/uL Normal <0.10 [facility] Comment on above: Order Comment: Speci men Type: BLOOD SPECIMENOrdering Facility: [facility] Address: [address] [place] [address] Performed By: #### 5 7021-8 ####[facility]ITALNCLIA [id number] [place] [address] [place] Immature granulocytes/100 WBC (Bld) 0.1 % Normal [facility] Comment on above: Order Comment: Speci men Type: BLOOD SPECIMENOrdering Facility: [facility] Address: [address] [place] [address] Performed By: #### 5 7021-8 ####[facility] [id number] [place] [address] [place] Lymphocytes (Bld) [#/Vol] 1.41 10*3/uL Normal 1.00-4.00 [facility] Comment on above: Order Comment: Speci men Type: BLOOD SPECIMENOrdering Facility: [facility] Address: [address] [place] [address] Performed By: #### 5 7021-8 ####[facility] HOSPITALSILASA [id number] [place] [address] [place] Lymphocytes/100 WBC (Bld) 17.3 % Normal [facility] Comment on above: Order Comment: Speci men Type: BLOOD SPECIMENOrdering Facility: [facility] Address: [address] [place] [address] Performed By: #### 5 7021-8 ####[facility] HOSPITALNCAMOSA [id number] [place] [address] [place] MCH (RBC) [Entitic mass] 30.0 pg Normal 26.0-34.0 [facility] Comment on above: Order Comment: Speci men Type: BLOOD SPECIMENOrdering Facility: [facility] Address: [address] [place] [address] Performed By: #### 5 7021-8 ####[facility]ITALNCLIA [id number] [place] [address] [place] MCHC (RBC) [Mass/Vol] 34.1 g/dL Normal 30.5-36.0 [facility] Comment on above: Order Comment: Speci men Type: BLOOD SPECIMENOrdering Facility: [facility] Address: [address] [place] [address] Performed By: #### 5 7021-8 ####[facility] MILLWNCLIA [id number] [place] [address] [place] MCV (RBC) [Entitic vol] 88.2 fL Normal 80.0-100.0 [facility] Comment on above: Order Comment: Speci men Type: BLOOD SPECIMENOrdering Facility: [facility] Address: [address] [place] [address] Performed By: #### 5 7021-8 ####[facility]ITALLIA [id number] [place] [address] [place] Monocytes (Bld) [#/Vol] 0.66 10*3/uL Normal <0.87 [facility] Comment on above: Order Comment: Speci men Type: BLOOD SPECIMENOrdering Facility: [facility] Address: [address] [place] [address] Performed By: #### 5 7021-8 ####[facility] ORLANDOA [id number] [place] [address] [place] Monocytes/100 WBC (Bld) 8.1 % Normal [facility] Comment on above: Order Comment: Speci men Type: BLOOD SPECIMENOrdering Facility: [facility] Address: [address] [place] [address] Performed By: #### 5 7021-8 ####[facility]ITALLIA [id number] [place] [address] [place] Neutrophils (Bld) [#/Vol] 5.93 10*3/uL Normal 1.45-7.50 [facility] Comment on above: Order Comment: Speci men Type: BLOOD SPECIMENOrdering Facility: [facility] Address: [address] [place] [address] Performed By: #### 5 7021-8 ####[facility]ITALNCLIA [id number] [place] [address] [place] Neutrophils/100 WBC (Bld) 72.9 % Normal [facility] Comment on above: Order Comment: Speci men Type: BLOOD SPECIMENOrdering Facility: [facility] Address: [address] [place] [address] Performed By: #### 5 7021-8 ####[facility]PITALNCUINTA[facility] [id number] [place] [address] [place] Nucleated RBC (Bld) [#/Vol] 10*3/uL Normal <0.01 [facility] Comment on above: Order Comment: Speci men Type: BLOOD SPECIMENOrdering Facility: [facility] Address: [address] [place] [address] Performed By: #### 5 7021-8 ####[facility]ITALNCUINTA[facility] [id number] [place] [address] [place] Nucleated RBC/100 WBC (Bld) [Ratio] 0.0 /100 WBC Normal [facility] Comment on above: Order Comment: Speci men Type: BLOOD SPECIMENOrdering Facility: [facility] Address: [address] [place] [address] Performed By: #### 5 7021-8 ####[facility] HOSPITALNCLI [id number] [place] [address] [place] Platelet mean volume (Bld) [Entitic vol] 10.0 fL Normal 9.0-12.7 [facility] Comment on above: Order Comment: Speci men Type: BLOOD SPECIMENOrdering Facility: [facility] Address: [address] [place] [address] Performed By: #### 5 7021-8 ####[facility] HOSPITALNCLI [id number] [place] [address] [place] Platelets (Bld) [#/Vol] 266 10*3/uL Normal 150-400 [facility] Comment on above: Order Comment: Speci men Type: BLOOD SPECIMENOrdering Facility: [facility] Address: [address] [place] [address] Performed By: #### 5 7021-8 ####[facility]ITALNCLIA [id number] [place] [address] [place] RBC (Bld) [#/Vol] 4.56 10*6/uL Normal 3.90-5.20 [facility] Comment on above: Order Comment: Speci men Type: BLOOD SPECIMENOrdering Facility: [facility] Address: [address] [place] [address] Performed By: #### 5 7021-8 ####[facility] HOSPITALNCA [id number] [place] [address] [place] WBC (Bld) [#/Vol] 8.14 10*3/uL Normal 3.70-11.00 [facility] Comment on above: Order Comment: Speci men Type: BLOOD SPECIMENOrdering Facility: [facility] Address: [address] [place] [address] Performed By: #### 5 7021-8 ####[facility] ORLANDOA [id number] [place] [address] [place] HBV surface Ag Ql (S)on 07-30 Interpretation and review of laboratory results Normal [facility] HBV surface Ag Ser Qlon 07-30 HBV surface Ag Ql (S) Negative Normal Negative [facility] Comment on above: Order Comment: Speci men Type: BLOOD SPECIMENOrdering Facility: [facility] Address: [address] [place] [address] Performed By: #### 5 195-3, 53490-6, 76644-9 ####[facility] LABCLIA [id number] [place] [address] [place] HCG QUANTITATIVEon 5 HCG.beta subunit Qn 8329 m[IU]/mL High NINF [facility] Comment on above: QUANTITATIVE HCG NOR MAL RANGES Weeks of Gestation (Weeks Since LMP) 3 Weeks (5.8-71.2 mIU/mL) 4 Weeks (9.5-750 mIU/mL) 5 Weeks (217-7138 mIU/mL) 6 Weeks (158-90423 mIU/mL) 7 Weeks (3697-505793 mIU/mL) 8 Weeks (91939-891822 mIU/mL) 9 Weeks (93738-580613 mIU/mL) 10 Weeks (84955-019632 mIU/mL) 12 Weeks (61239-710269 mIU/mL) Referenced to 4th IS of [facility] HCG.beta subunit Qnon 2024 Interpretation and review of laboratory results Abnormal [facility] HCV Ab Ser Qlon 08-11-2024 HCV Ab Ql (S) Negative Normal Negative [facility] Comment on above: Order Comment: Speci men Type: BLOOD SPECIMENOrdering Facility: [facility] Address: [address] [place] [address] Result Comment: The result suggests no evidence of active infection with Hepatitis C virus. Should recent infection be suspected, repeat testing may be considered 4-6 weeks after this draw. Performed By: #### 1 6128-1 ####[facility] LABCLIA [id number] [place] [address] [place] HEPATITIS B SURFACE ANTIGENo n 08-11-2024 HBV surface Ag Ql (S) Negative Negative [facility] HIV 1+2 Ab IA Qlon HIV 1 and 2 Ab IA.rapid Nom (S/P/Bld) [facility] Comment on above: Test not indicated. HIV 1+2 Ab+HIV1 p24 Ag IA Ql Non-Reactive Nonreactive [facility] HIV immunoassay testing algorithm interpretation (S/P/Bld) [Interp] [facility] Comment on above: No evidence of HIV-1 or HIV-2 infection. Should recent infection be suspected, repeat testing may be considered 2-3 weeks after this draw. Forest Rev. Code 3701.243(E): This information has been [...] release of HIV test results or diagnoses. [facility] HIV 1 and 2 Ab IA.rapid Nom (S/P/Bld) Normal [facility] Comment on above: Order Comment: Speci men Type: BLOOD SPECIMENOrdering Facility: [facility] Address: [address] [place] [address] Result Comment: Test not indicated. Performed By: #### 5 195-3, 31212-1, 63774-3 ####[facility] LABGIFF[facility] [id number] [place] [address] [place] HIV 1+2 Ab+HIV1 p24 Ag IA Ql Non-Reactive Normal Nonreactive [facility] Comment on above: Order Comment: Speci men Type: BLOOD SPECIMENOrdering Facility: [facility] Address: [address] [place] [address] Performed By: #### 5 195-3, 60443-0, 89798-6 ####[facility] LABIA [id number] [place] [address] [place] HIV immunoassay testing algorithm interpretation (S/P/Bld) [Interp] Normal [facility] Comment on above: Order Comment: Speci men Type: BLOOD SPECIMENOrdering Facility: [facility] Address: [address] [place] [address] Result Comment: No e vidence of HIV-1 or HIV-2 infection. Should recent infection be suspected, repeat testing may be considered 2-3 weeks after this draw. Forest Rev. Code 3701.243(E): This information has been [...] or diagnoses. Performed By: #### 5 195-3, 91926-4, 45133-0 ####[facility] LABCLIA [id number] [place] [address] [place] HbA1c (Bld)on 08-11-2024 Average glucose Estimated from glycated hemoglobin (Bld) [Mass/Vol] 97 mg/dL [facility] Comment on above: eAG: (Estimated aver age glucose) is a calculated value from HgbA1c and is compliance representative dealer of the average blood glucose level in the last 2-3 month period. HbA1c (Bld) [Mass fraction] 5 % 4.3 - 5.6 % [facility] Comment on above: [place] Diabetes As sociation guidelines indicate that patients with HgbA1c in the range 5.7-6.4% are at increased risk for development of diabetes, and intervention by lifestyle modification may be beneficial. HgbA1c greater or equal to 6.5% is considered diagnostic of diabetes. [facility] Average glucose Estimated from glycated hemoglobin (Bld) [Mass/Vol] 97 mg/dL Normal [facility] Comment on above: Order Comment: Speci men Type: BLOOD SPECIMENOrdering Facility: [facility] Address: [address] [place] [address] Result Comment: eAG: (Estimated average glucose) is a calculated value from HgbA1c and is compliance representative dealer of the average blood glucose level in the last 2-3 month period. Performed By: #### 5 5454-3 ####[facility] LABIA [id number] [place] [id number] [place] HbA1c (Bld) [Mass fraction] 5.0 % Normal 4.3-5.6 [facility] Comment on above: Order Comment: Speci men Type: BLOOD SPECIMENOrdering Facility: [facility] Address: [address] [place] [address] Result Comment: [place] Diabetes Association guidelines indicate that patients with HgbA1c in the range 5.7-6.4% are at increased risk for development of diabetes, and intervention by lifestyle modification may be beneficial. HgbA1c greater or equal to 6.5% is considered diagnostic of diabetes. Performed By: #### 5 5454-3 ####[facility] LABIA [id number] [place] [id number] [place] POC GIFT CONSULTANT ULTRASOUNDon 08-12-19 25 Indication Viability; confirm cardiac [...] Read By: Christianne Carranza CNM MATERNAL MEDICINE [facility] Radiology Study observation (narrative) [facility] RUBELLA IGG ANTIBODYon 08-11 RUBELLA IGG AB, QUAL Positive Normal Positive [facility] Comment on above: Order Comment: Speci men Type: BLOOD SPECIMENOrdering Facility: [facility] Address: [address] [place] [address] Result Comment: The result suggests recent or past exposure to Rubella virus or history of Rubella vaccination. Positive result may also be seen due to presence of passively-transferred antibodies. Please correlate with patient's history. Performed By: #### R UBIGG ####[facility] LABIA [id number] [address] [place] Reagin and Treponema pallidu m IgG and IgM [Interp]on 08-11-2024 T. pallidum IgG+IgM IA Ql (S) Non-Reactive Nonreactive [facility] T. pallidum IgG+IgM IA Ql (S) Non-Reactive Normal Nonreactive [facility] Comment on above: Order Comment: Speci men Type: BLOOD SPECIMENOrdering Facility: [facility] Address: [address] [place] [address] Performed By: #### 5 195-3, 57317-8, 45743-6 ####[facility] LABIA [id number] [place] [address] [place] Reagin+T pallidum IgG+IgM Se rPl-Impon 08-11-2024 Reagin and Treponema pallidum IgG and IgM [Interp] Cannot exclude recent Treponemal infection if specimen collected within 7-10 days after appearance of suspect lesions or 2-3 weeks after an exposure. Clinical correlation is required. Normal [facility] Comment on above: Order Comment: Speci men Type: BLOOD SPECIMENOrdering Facility: [facility] Address: [address] [place] [address] Performed By: #### 5 195-3, 40419-2, 61837-7 ####[facility] LABIA [id number] [place] [id number] [place] SYPHILIS TREPONEMAL W/REFLEX on 08-11-2024 Reagin and Treponema pallidum IgG and IgM [Interp] Cannot exclude recent Treponemal infection if specimen collected within 7-10 days after appearance of suspect lesions or 2-3 weeks after an exposure. Clinical correlation is required. [facility] TRICHOMONAS VAGINALIS NAATon 08-11-2024 T. vaginalis DNA SANTY+probe Ql (Unsp spec) Not detected Normal Not detected [facility] Comment on above: Order Comment: Speci men Type: SWABOrdering Facility: [facility] Address: [address] [place] [address] Performed By: #### 3 6902-5, TRVAMP ####[facility] LABIA [id number] [place] [id number] [place] TYPE + SCREEN PRENATALon ABO group Nom (Bld) A [facility] Blood group antibody screen Ql Negative [facility] Rh Nom (Bld) Negative [facility] Type and Screen Expiration 08/14/2024 23:59 [facility] ABO A Normal [facility] Comment on above: Order Comment: Speci men Type: BLOOD SPECIMENOrdering Facility: [facility] Address: [address] [place] [address] Performed By: #### T SPN ####[facility] BLOOD BANKCLIA [id number] [address] [place] Rh Nom (Bld) Negative Normal [facility] Comment on above: Order Comment: Speci men Type: BLOOD SPECIMENOrdering Facility: [facility] Address: [address] [place] [address] Performed By: #### T SPN ####[facility] BLOOD BANKCLIA [id number] [address] [place] TYPE AND SCREEN EXPIRATION 08/14/2024 23:59 Normal [facility] Comment on above: Order Comment: Speci men Type: BLOOD SPECIMENOrdering Facility: [facility] Address: [address] [place] [address] Performed By: #### T SPN ####[facility] BLOOD BANKCLIA [id number] [place] [id number] [facility] [place] CNPNon 08-09-2024 CNPN Telephone (OBGYWM) -------- ALEJANDRA KRIAN ([id number]) 2 F Date Time Provider Department 08/09/24 [...] Encounter Status:Closed by PERLA MUNOZ on 08/24/24 [facility] CNOVon 06-29-2024 CNOV Office Visit (OBGYWM ) -------- ALEJANDRA [id number]) 2 F Date Time Provider Department 06/29/24 9:10 AM MIKE CEBALLOS During your visit today, we recorded the following information about you: Blood pressure Weight Height Last Period 100/64 80.7 kg 1.727 m 06/01/24 Mike Ceballos MD 07/01/2024 10:13 AM Signed Wastewater Engineer offered: Patient accepts, visit chaperoned by Erica [...] L0 SAB0 IAB0 Ectopic0 Multiple0 Live Births0 Program Management Manager History LMP: 06/01/2024, Having periods Age at Menarche: 13 Age at First : Age at Menopause: Program Management Manager History Comments: Sexual Activity: Yes; Male [...] discussed with the Patient or Patient's Authorized Robotic Welder. As applicable, any other physician, advance practice provider, medical student, or other health professional student that will be observing or involved in the sensitive examination for educational or training purposes was discussed with the Patient or Authorized Robotic Welder. The Patient or Authorized Robotic Welder has agreed to proceed with the sensitive [...] external genitalia normal, normal Bartholin's glands, urethra, Annetta's glands, no vulvar lesions, no cervical lesions, [...] - Cough (more content not included)... Normal [facility] UA DIP,URINE HCG (POC)on Beta HCG ( test) Ql (U) Negative Negative [facility] Comment on above: Location:[facility], [address], [place], [address] Production Line Worker (POCT) Internal QC [place] [facility] Location:[facility], [address], [place], [address] [facility] POINT OF CARE [facility] CNOVon 05-11-2024 CNOV Office Visit (OBGYWM ) -------- ALEJANDRA KIRAN ([id number]) 2 F Date Time Provider Department 05/11/24 10:30 AM MIKE CEBALLOS During your visit today, we recorded the following information about you: Blood pressure Weight 106/74 76.2 kg Mike Ceballos MD 05/11/2024 10:51 AM Signed Wastewater Engineer offered: Patient accepts, visit chaperoned by Erica [...] Mike Ceballos MD Referring Provider: DELL ALONSO [[id number]] Allergies As of Date: 05/11/2024 Noted Allergy Reaction POTATO 06/24/2016 2 - Rash 4 - Hives SEASONAL ALLERGIES 02/18/2018 3 - Cough Comments: Seasonal allergies Date Reviewed: 05/11/2024 Reviewed by: Erica Beverly MA - Fully Assessed Reason for Visit: IUD Removal [1949] Primary Visit Diagnosis:Encounter for IUD removal [Z30.432] Order(s):REMOVE INTRAUTERINE DEVICE [[id number]] Order #: [id number] UA DIP,URINE HCG (POC) [[id number]] Order #: [id number]. #:[id number] Prescriptions as of 05/11/2024 - cetirizine [...] for Encounter Date Provider Department Center 05/11/2024 [id number] CEBALLOS Encounter Status:Closed by MIKE CEBALLOS on 05/11/24 Normal [facility] UA DIP,URINE HCG (POC)on Beta HCG ( test) Ql (U) Negative Negative [facility] Comment on above: Location:[facility], [address], [place], [address] Production Line Worker (POCT) Internal [facility] Location:[facility], [address], [place], [place], [id number] [place] [address] POINT OF CARE [facility] 01-18-2024 CNPN Telephone ([place]) -------- ALEJANDRA KIRAN ([id number]) 2 F Date Time Provider Department 01/18/24 [...] for IUD removal [Z30.432] Order(s):REMOVE INTRAUTERINE DEVICE [[id number]] Order #: [id number] Prescriptions as of 01/18/2024 - cariprazine (VRAYLAR) [...] Encounter Status:Closed by HELLEN CAMPOVERDE on 01/18/24 [facility] CNOVon 11-25-2023 CNOV Office Visit (OBGYWM ) -------- ALEJANDRA KIRAN Beryl ([id number]) 2 F Date Time Provider Department 11/25/23 [...] IVF. Reports irregular menses related to anorexia 4350-[address] IUD [address] 2020. Menarche ~ 13 yo and regular until weight loss to 106. Now 160, 5'8. Monthly/cyclic discharge on underwear.. HPI: as above and planning in ~ 12 mo, always feels cold OB History T0 L0 SAB0 IAB0 Ectopic0 Multiple0 Live Births0 Program Management Manager History LMP: 01/15/2023 (Exact Date), IUD Age at Menarche: Age at First : Age at Menopause: Program Management Manager History Comments: Sexual Activity: Yes; Male [...] external genitalia normal, normal Bartholin's glands, urethra, Annetta's glands, no vulvar lesions, no cervical lesions, good vaginal support, physiologic discharge present, normal appearing perineal body and perianal region BIMANUAL: uterus normal size, shape and consistency, no adnexal masses, and non-tender NEURO: alert and oriented x3,exam grossly non-focal EXTREMITIES: normal ASSESSMENT AND PLAN: 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 Normal [facility] TSH SerPl-aCncon 11-25-2023 TSH Qn 0.989 m[IU]/L Normal 0.270-4.200 [facility] Comment on above: Order Comment: Speci men Type: BLOOD SPECIMENOrdering Facility: [facility] Address: [address] [place] [address] Result Comment: If t he patient is , TSH reference range varies by gestational period: First Trimester (weeks 9-12): 0.180-2.990 mIU/L Second Trimester: 0.110-3.980 mIU/L Third Trimester: 0.480-4.710 mIU/L Xander Walker et al. A Practical Approach for the Verifications and Determination of Site- and Trimester-Specific Reference Intervals for Thyroid Function tests in . Thyroid, 2019:29:3:412-420. Milind Bergman et al. 2017 Guidelines of the [place] Thyroid Association for the Diagnosis and Management of Thyroid Disease during and the . Thyroid, 2017:27:3:315-389. Performed By: #### 3 016-3 ####[facility] LABCLIA [id number] [facility] [id number] [place] [id number] [place] Basic Metabolic Panelon 01-0 Anion gap [Moles/Vol] 8 Normal [facility] Comment on above: Performed By: #### B MP3, HGHCT, TROPI ####[facility] [place] [address] Calcium [Mass/Vol] 9.3 mg/dL Normal 8.4-10.4 [facility] Comment on above: Performed By: #### B MP3, HGHCT, TROPI ####[address] [place] [address] Chloride [Moles/Vol] 99 mmol/L Normal 98-107 [facility] Comment on above: Performed By: #### B MP3, HGHCT, TROPI ####[address] [place] [address] CO2 [Moles/Vol] 28 mmol/L Normal 22-30 [facility] Comment on above: Performed By: #### B MP3, HGHCT, TROPI ####[address] [place] [address] Creatinine [Mass/Vol] 0.69 mg/dL Normal 0.52-1.25 [facility] Comment on above: Performed By: #### B MP3, HGHCT, TROPI ####[address] [place] [address] GFR/1.73 sq M predicted among blacks MDRD (S/P/Bld) [Vol rate/Area] mL/min/{1.73_m2} Normal >60 [facility] Comment on above: Performed By: #### B MP3, HGHCT, TROPI ####[address] [place] [address] GFR/1.73 sq M predicted among non-blacks MDRD (S/P/Bld) [Vol rate/Area] mL/min/{1.73_m2} Normal >60 [facility] Comment on above: Result Comment: KDIG [...] Performed By: #### B MP3, HGHCT, TROPI ####[address] [place] [address] Glucose [Mass/Vol] 104 mg/dL High 70-100 [facility] Comment on above: Performed By: #### Lore MP3, HGHCT, TROPI ####[address] [place] [address] Potassium [Moles/Vol] 3.5 mmol/L Normal 3.5-5.1 [facility] Comment on above: Performed By: #### B MP3, HGHCT, TROPI ####[address] [place] [address] Sodium [Moles/Vol] 135 mmol/L Normal 135-145 [facility] Comment on above: Performed By: #### B MP3, HGHCT, TROPI ####[address] [place] [address] Urea nitrogen [Mass/Vol] 11 mg/dL Normal 7-20 [facility] Comment on above: Performed By: #### B MP3, HGHCT, TROPI ####[facility] [place] [address] Anion gap [Moles/Vol] 8 mmol/L [place] Calcium [Mass/Vol] 9.3 mg/dL 8.4 - 10. 4 mg/dL [place] Chloride [Moles/Vol] 99 mmol/L 98 - 107 mmol/L [place] CO2 [Moles/Vol] 28 mmol/L 22 - 30 mmol/L [place] Creatinine [Mass/Vol] 0.69 mg/dL 0.52 - 1.25 mg/dL [place] EGFR IF NonAfrican Pakistani >90.0 >60 mL/min [place] Comment on above: KDIGO guidelines pro [...] MDRD (S/P/Bld) [Vol rate/Area] mL/min/{1.73_m2} >60 mL/min [place] Glucose [Mass/Vol] 104 mg/dL High 70 - 100 mg/dL [place] Potassium [Moles/Vol] 3.5 mmol/L 3.5 - 5.1 mmol/L [place] Sodium [Moles/Vol] 135 mmol/L 135 - 145 mmol/L [place] Urea nitrogen [Mass/Vol] 11 mg/dL 7 - 20 mg/dL [place] Test Performed by [facility], [address] [place] [address] [place] COVID-19on 06-06-2020 SARS-CoV-2 Not Detected. Not Detected [place] Comment on above: Not Detected. Method: Antigen detection by lateral flow. Results should not be the sole factor in determining infection status. Test Performed by [facility], [address] [place] [address] EKG 12 Leadon 06-06-2020 Bhupinder, [facility] Incoming Cardiology Results From Merge/Epiphany - 06/06/2020 6:14 PM EST [facility] Test Date: 2020-06-05 Pat Name: Alejandra Cedeno Department: 08 Room: [facility] Gender: F Human Resources Coordinator: XAVIER : 2000 Requested By: CAROLINA LOMELI Order Number: [id number] Reading MD: Peewee Peterson Measurements Intervals [place] Rate: 57 P: 46 AR: 119 QRS: 57 QRSD: 92 T: 52 QT: 433 QTc: 422 Interpretive Statements Sinus bradycardia Compared to ECG 06/04/2020 22:31:38 Sinus rhythm no longer present Electronically Signed On 06-06-2020 18:13:50 EST by [facility] [place] [facility] Test Date: 2020-06-05 Pat Name: Alejandra Desaisocorro Department: 08 Room: 2629 Gender: F Human Resources Coordinator: XAVIER : 2000 Requested By: CAROLINA LOMELI Order Number: [id number] Reading MD: Peewee Peterson Measurements Intervals [place] Rate: 57 P: 46 AR: 119 QRS: 57 QRSD: 92 T: 52 QT: 433 QTc: 422 Interpretive Statements Sinus bradycardia Compared to ECG 06/04/2020 22:31:38 Sinus rhythm no longer present Electronically Signed On 06-06-2020 18:13:50 EST by [place] Glucose,Bedsideon 06-06-2020 Glucose [Mass/Vol] 94 mg/dL Normal 70-100 [facility] Comment on above: Result Comment: Test performed by glucose meter. Results may be 10%-15% lower than serum/plasma values. (CLIA ID [id number]) Performed By: #### B GLU #### [address] [address] Hemoglobin AND Hematocriton 06-06-2020 Hematocrit (Bld) [Volume fraction] 34.6 % Low 35.0-47.0 [facility] Comment on above: Performed By: #### B MP3, HGHCT, TROPI ####[address] [address] Hemoglobin (Bld) [Mass/Vol] 11.5 g/dL Low 11.7-16.0 [facility] Comment on above: Performed By: #### B MP3, HGHCT, TROPI ####[address] [address] Hemoglobin and Hematocrit, B loodon 06-06-2020 Hematocrit (Bld) [Volume fraction] 34.6 % Low 35 - 47 % [place] Hemoglobin (Bld) [Mass/Vol] 11.5 g/dL Low 11.7 - 16 g/dL [place] Test Performed by [facility], [address] [place] [id number] [place] [address] Lipid Panelon 06-06-2020 Cholesterol in HDL [Mass/Vol] 43 mg/dL Normal 40-60 [place] Comment on above: Performed By: #### L IPD2 #### [address] [address] Cholesterol.total/ Cholesterol in HDL [Mass ratio] 4 Normal [facility] Comment on above: Result Comment: Ref Range: < 3 Low Risk for CHD 3-6 Mod Risk for CHD > 6 High Risk for CHD Performed By: #### L IPD2 #### [address] [address] Protein [Mass/Vol] 105 mg/dL Abnormal <100 [facility] Comment on above: Performed By: #### L IPD2 #### [address] [address] Cholesterol [Mass/Vol] 164 mg/dL Normal < 200 [place] Comment on above: Performed By: #### L IPD2 #### [facility] [address] [place], [place] Triglyceride [Mass/Vol] 80 mg/dL Normal <150 [place] Comment on above: Performed By: #### L IPD2 #### [facility] [address] [place], [place] Lipid panel - fastingon Cholesterol in LDL [Mass/Vol] 105 mg/dL Abnormal <100 [place] Cholesterol.total/ Cholesterol in HDL [Mass ratio] 4 {ratio} [place] Comment on above: Ref Range: < 3 Low Risk for CHD 3-6 Mod Risk for CHD > 6 High Risk for CHD Test Performed by [facility], [address] [place] [address] [place] Otheron 06-06-2020 Interpretation and review of laboratory results Abnormal [place] POCT troponinon 06-06-2020 Troponin I.cardiac [Mass/Vol] 0.00 ng/mL 0 - 0.08 ng/mL [place] Comment on above: . Test Performed by [facility], [address] [place] [address] [place] [id number] 06-06-2020 SARS-CoV-2 SARS-CoV-2 --> Statu s: F Not Detected. Method: Antigen detection by lateral flow. Results should not be the sole factor in determining infection status. Method: Antigen detection by lateral flow. Results should not be the sole factor in determining infection status. Normal [facility] [employer] [facility] Comment on above: Performed By: #### C OVID ####[facility] [employer] [id number] [place], [place] Troponin, ISTATon 06-06-2020 Troponin I.cardiac [Mass/Vol] 0.00 ng/mL Normal 0.00-0.08 [facility] [employer] [facility] Comment on above: Result Comment: . Performed By: #### B MP3, HGHCT, TROPI ####[employer] [address] [place] [address] POCT Glucoseon 06-05-2020 Glucose [Mass/Vol] 94 mg/dL 70 - 100 mg/dL [place] Comment on above: Test performed by ucose meter. Results may be 10%-15% lower than serum/plasma values. (CLIA ID [id number]) Test Performed by [facility], [address] [place] [address] [place] [id number] 06-05-2020 SARS-CoV-2 SARS-CoV-2 --> Statu s: F Not Detected. Expected Result: Not Detected _ Real-time, RT-PCR performed on the Aisle50 System by the [facility] Microbiology Service. Negative results do not preclude SARS-CoV-2 infection and should not be used as the sole basis for treatment or other patient management decisions. This assay was developed by [employer] and distributed under an Emergency Use Authorization (EUA) granted by the FDA for the qualitative detection of SARS-CoV-2 nucleic acid. Expected Result: Not Detected _ Real-time, RT-PCR performed on the Aisle50 System by the [facility] Microbiology Service. Negative results do not preclude SARS-CoV-2 infection and should not be used as the sole basis for treatment or other patient management decisions. This assay was developed by [employer] and distributed under an Emergency Use Authorization (EUA) granted by the FDA for the qualitative detection of SARS-CoV-2 nucleic acid. Normal [facility] Comment on above: Performed By: #### C OVID ####[facility] [id number] [place] [address] hCG Qual Pregon 06-05-2020 hCG Qual Preg Negative Normal [facility] Comment on above: Result Comment: Refe rence Range: NEGATIVE Effective 08/12/2019, the reference interval for the qualitative test has been updated. This test detects hCG at concentrations of 10 mIU/L or greater in serum. Performed By: #### A CET4, SAL33, ETOH4, QWAL, HEMDF, CMP3 #### [facility] [employer] [facility] [address] [place] [address] ACETAMINOPHEN LEVELon 2020 Acetaminophen [Mass/Vol] <10.0 10 - 30 ug/mL [facility], [place] Acetaminophenon 06-04-2020 Acetaminophen [Mass/Vol] < 10.0 Normal 10.0-30.0 [facility] Comment on above: Performed By: #### A CET4, SAL33, ETOH4, QWAL, HEMDF, CMP3 #### [facility] [address] [place], [place] Comp Metabolic Panelon 06-04 ALP [Catalytic activity/Vol] 87 U/L Normal 38-126 [facility] Comment on above: Performed By: #### A CET4, SAL33, ETOH4, QWAL, HEMDF, CMP3 #### [address] [place], [place] ALT [Catalytic activity/Vol] 11 U/L Normal 0-34 [facility] Comment on above: Result Comment: The ALT test is performed by an updated assay method. Please note that the reference intervals have been changed and are now sex specific. Performed By: #### A CET4, SAL33, ETOH4, QWAL, HEMDF, CMP3 #### [address] [place], [place] AST [Catalytic activity/Vol] 30 U/L Normal 15-46 [facility] Comment on above: Performed By: #### A CET4, SAL33, ETOH4, QWAL, HEMDF, CMP3 #### [address] [place], [place] Bilirubin [Mass/Vol] 0.4 mg/dL Normal 0.2-1.3 [facility] Comment on above: Performed By: #### A CET4, SAL33, ETOH4, QWAL, HEMDF, CMP3 #### [address] [place], [place] Calcium [Mass/Vol] 10.0 mg/dL Normal 8.4-10.4 [facility] Comment on above: Performed By: #### A CET4, SAL33, ETOH4, QWAL, HEMDF, CMP3 #### [address] [place], [place] Glucose [Mass/Vol] 99 mg/dL Normal 70-100 [facility] Comment on above: Performed By: #### A CET4, SAL33, ETOH4, QWAL, HEMDF, CMP3 #### [address] [place], [place] Protein [Mass/Vol] 8.2 g/dL Normal 6.3-8.2 [facility] Comment on above: Performed By: #### A CET4, SAL33, ETOH4, QWAL, HEMDF, CMP3 #### [address] [place], [place] Urea nitrogen [Mass/Vol] 6 mg/dL Low 7-20 [facility] Comment on above: Performed By: #### A CET4, SAL33, ETOH4, QWAL, HEMDF, CMP3 #### [address] [place], [place] Anion gap [Moles/Vol] 11 Normal [facility] Comment on above: Performed By: #### A CET4, SAL33, ETOH4, QWAL, HEMDF, CMP3 #### [address] [place], [place] CO2 [Moles/Vol] 24 mmol/L Normal 22-30 [facility] Comment on above: Performed By: #### A CET4, SAL33, ETOH4, QWAL, HEMDF, CMP3 #### [address] [place], [place] Creatinine [Mass/Vol] 0.62 mg/dL Normal 0.52-1.25 [facility] Comment on above: Performed By: #### A CET4, SAL33, ETOH4, QWAL, HEMDF, CMP3 #### [address] [place], [place] GFR/1.73 sq M predicted among blacks MDRD (S/P/Bld) [Vol rate/Area] mL/min/{1.73_m2} Normal >60 [facility] Comment on above: Performed By: #### A CET4, SAL33, ETOH4, QWAL, HEMDF, CMP3 #### [address] GFR/1.73 sq M predicted among non-blacks MDRD (S/P/Bld) [Vol rate/Area] mL/min/{1.73_m2} Normal >60 [facility] Comment on above: Result Comment: KDIG [...] CET4, SAL33, ETOH4, QWAL, HEMDF, CMP3 #### [address] Potassium [Moles/Vol] 3.6 mmol/L Normal 3.5-5.1 [facility] Comment on above: Performed By: #### A CET4, SAL33, ETOH4, QWAL, HEMDF, CMP3 #### [address] Sodium [Moles/Vol] 138 mmol/L Normal 135-145 [facility] Comment on above: Performed By: #### A CET4, SAL33, ETOH4, QWAL, HEMDF, CMP3 #### [address] Albumin [Mass/Vol] 4.8 g/dL Normal 3.5-5.0 [facility] Comment on above: Performed By: #### A CET4, SAL33, ETOH4, QWAL, HEMDF, CMP3 #### [facility] [address] [place] [address] Chloride [Moles/Vol] 103 mmol/L Normal 98-107 [facility] Comment on above: Performed By: #### A CET4, SAL33, ETOH4, QWAL, HEMDF, CMP3 #### [facility] [address] [place] [address] Comprehensive Metabolic Pane roverto 06-04-2020 Albumin [Mass/Vol] 4.8 g/dL 3.5 - 5 g/dL [place], [place] ALP [Catalytic activity/Vol] 87 U/L 38 - 126 U/L [place] ALT [Catalytic activity/Vol] 11 U/L 0 - 34 U/L [place] Comment on above: The ALT test is perf ormed by an updated assay method. Please note that the reference intervals have been changed and are now sex specific. Anion gap [Moles/Vol] 11 mmol/L [place] AST [Catalytic activity/Vol] 30 U/L 15 - 46 U/L [place] Bilirubin Ql (U) 0.4 mg/dL 0.2 - 1.3 mg/dL [place] Calcium [Mass/Vol] 10.0 mg/dL 8.4 - 10. 4 mg/dL [place] Chloride [Moles/Vol] 103 mmol/L 98 - 107 mmol/L [place] CO2 [Moles/Vol] 24 mmol/L 22 - 30 mmol/L [place] Creatinine [Mass/Vol] 0.62 mg/dL 0.52 - 1.25 mg/dL [place] EGFR IF NonAfrican Pakistani >90.0 >60 mL/min [place] Comment on above: KDIGO guidelines pro [...] MDRD (S/P/Bld) [Vol rate/Area] mL/min/{1.73_m2} >60 mL/min [place] Glucose [Mass/Vol] 99 mg/dL 70 - 100 mg/dL [place] Interpretation and review of laboratory results Abnormal [place] Potassium [Moles/Vol] 3.6 mmol/L 3.5 - 5.1 mmol/L [place] Protein [Mass/Vol] 8.2 g/dL 6.3 - 8.2 g/dL [place] Sodium [Moles/Vol] 138 mmol/L 135 - 145 mmol/L [place] Urea nitrogen [Mass/Vol] 6 mg/dL Low 7 - 20 mg/dL [place] Drugs of Abuseon 06-04-2020 Cocaine, Ur Negative Normal [facility] Comment on above: Performed By: #### D RGA4 ####[address] [place] [address] Opiates, Ur Negative Normal [facility] Comment on above: Performed By: #### D RGA4 ####[address] [place] [address] Phencyclidine (PCP), Ur Negative Normal [facility] Comment on above: Result Comment: The [...] separate order. Performed By: #### D RGA4 ####[facility] [address] [address] [facility] [place] [address] Methadone, Ur Negative Normal [facility] Comment on above: Performed By: #### D RGA4 ####[facility] [address] [facility] [place] [address] Amphetamines, Ur Negative Normal [facility] Comment on above: Performed By: #### D RGA4 ####[facility] [address] [address] [facility] [place] [address] Barbiturates, Ur Negative Normal [facility] Comment on above: Performed By: #### D RGA4 ####[facility] [address] [place] [address] Benzodiazepines, Ur Negative Normal [facility] Comment on above: Performed By: #### D RGA4 ####[facility] [address] [place] [address] Oxycodone/Oxymorph ine,Ur Negative Normal [facility] Comment on above: Performed By: #### D RGA4 ####[facility] [address] [place] [address] ED Provider Noteon ED Provider Note Emergency Department Encounter [facility] EMERGENCY DEPT Patient: Alejandra Cedeno : 2000 Date of Evaluation: 06/04/2020 ED Provider: SELINA Nieevs EDcare was supervised by Dr. Rose who [...] is scared she will hurt herself further. HAVASUPAI (Location/Symptom, Timing/Onset, Context/Setting, Quality, Duration, Modifying Factors, [...] otherwise acutely negative except as in the HAVASUPAI. Past History History reviewed. No pertinent past [...] on phone: None Gets together: None Attends church service: None Active member of club or [...] eGFR >90.0 >60 mL/min EGFR IF NonAfrican Pakistani >90.0 >60 mL/min Calcium 10.0 8.4 - [...] # 1.6 1.0 - 4.3 10*3/uL Absolute [place] # 0.5 0.0 - 0.8 10*3/uL Absolute [...] inpatient psychiatric admission, patient was admitted to [facility] in stable condition. Patient is medically clear for psychiatric admission. ED Medication Orders (From admission, onward) Start Ordered Status Ordering Provider 06/04/20 2245 06/04/202235 Vfoqoll-Jcitlk-Ouoxi Pertussis (BOOSTRIX) injection 0.5 mL ONCE Last [...] the dictating provider for clarification. SELINA Nieves [employer] SELINA Nieves 06/05/20 0007 [facility] ED Provider Note Emergency Department Encounter [facility] EMERGENCY DEPT Patient: Alejandra Cedeno : [...] Rate and rhythm: sinus rhythm, 66 bpm [place]: within normal range Intervals: AR 122, QRS 88, QTc 430 Segments: no [...] occasionally words are mis-transcribed.) Giles Rose MD [employer] Giles Rose MD 06/05/20 0343 Normal [facility] Ethanolon 06-04-2020 Ethanol Lvl <0.010 0 - 0.01 g/dL [place] Comment on above: NOTE: This result is for medical treatment only. Analysis performed using non-forensic procedures. Ethanol Serum/Plasmaon 06-04 Ethanol-Serum/Plas ma < 0.010 Normal 0.000-0.010 [facility] Comment on above: Result Comment: NOTE : This result is for medical treatment only. Analysis performed using non-forensic procedures. Performed By: #### A CET4, SAL33, ETOH4, QWAL, HEMDF, CMP3 #### [address] [place] [address] HCG Qualitative, Serumon hCG Qual Negative m[IU]/mL [place] Comment on above: Reference Range: NEG ATIVE Effective 08/12/2019, the reference interval for the qualitative test has been updated. This test detects hCG at concentrations of 10 mIU/L or greater in serum. Test Performed by [address] [address] [place] Hemogram (CBC) w/Auto Diffon 06-04-2020 Absolute Baso # 0.0 10*3/uL 0 - 0.2 10*3/uL [place] Absolute Neut # 4.6 10*3/uL 1.8 - 7 10*3/uL [place] Basophils/100 WBC (Bld) 0.7 % 0 - 2 % [place] Eosinophils (Bld) [#/Vol] 0.0 10*3/uL 0 - 0.5 10*3/uL [place] Eosinophils/100 WBC (Bld) 0.5 % Low 1 - 6 % [place] Erythrocyte distribution width (RBC) [Ratio] 18.1 % High 11.5 - 14.5 % [place] Granulocytes/100 WBC (Bld) 68.4 % 40 - 80 % [place] Hematocrit (Bld) [Volume fraction] 40.0 % 35 - 47 % [place] Hemoglobin (Bld) [Mass/Vol] 12.9 g/dL 11.7 - 16 g/dL [place] Interpretation and review of laboratory results Abnormal [place] Lymphocytes (Bld) [#/Vol] 1.6 10*3/uL 1 - 4.3 10*3/uL [place] Lymphocytes/100 WBC (Bld) 23.2 % 20 - 40 % [place] MCH (RBC) [Entitic mass] 25.9 pg Low 26 - 34 pg [place] MCHC (RBC) [Mass/Vol] 32.2 % 32 - 36 % [place] MCV (RBC) [Entitic vol] 80.4 fL 79 - 98 fL [place] Monocytes (Bld) [#/Vol] 0.5 10*3/uL 0 - 0.8 10*3/uL [place] Monocytes/100 WBC (Bld) 7.2 % 2 - 10 % [place] Platelet mean volume (Bld) [Entitic vol] 8.7 fL 7.4 - 10.4 fL [place] Platelets (Bld) [#/Vol] 326 10*3/uL 140 - 440 10*3/uL [place] RBC (Bld) [#/Vol] 4.97 10*6/uL 3.8 - 5.2 10*6/uL [place] WBC (Bld) [#/Vol] 6.8 10*3/uL 3.6 - 10.7 10*3/uL [place] Test Performed by [facility], [address] [place] [address] [place] Hemogram w/ Autodiffon 06-04 Abs Baso Cnt 0.0 10*3/uL Normal 0.0-0.2 [facility] Comment on above: Performed By: #### A CET4, SAL33, ETOH4, QWAL, HEMDF, CMP3 #### [address] [address] Abs Neutrophile Cnt 4.6 10*3/uL Normal 1.8-7.0 [facility] Comment on above: Performed By: #### A CET4, SAL33, ETOH4, QWAL, HEMDF, CMP3 #### [address] [place], [place] Basophils/100 WBC (Bld) 0.7 % Normal 0.0-2.0 [facility] Comment on above: Performed By: #### A CET4, SAL33, ETOH4, QWAL, HEMDF, CMP3 #### [address] [address] [place] Eosinophils (Bld) [#/Vol] 0.0 10*3/uL Normal 0.0-0.5 [facility] Comment on above: Performed By: #### A CET4, SAL33, ETOH4, QWAL, HEMDF, CMP3 #### [address] [address] [place], [place] Eosinophils/100 WBC (Bld) 0.5 % Low 1.0-6.0 [facility] Comment on above: Performed By: #### A CET4, SAL33, ETOH4, QWAL, HEMDF, CMP3 #### [address] Erythrocyte distribution width (RBC) [Ratio] 18.1 % High 11.5-14.5 [facility] Comment on above: Performed By: #### A CET4, SAL33, ETOH4, QWAL, HEMDF, CMP3 #### [address] [address] [place], [place] Granulocytes/100 WBC (Bld) 68.4 % Normal 40.0-80.0 [facility] Comment on above: Performed By: #### A CET4, SAL33, ETOH4, QWAL, HEMDF, CMP3 #### [address] Hematocrit (Bld) [Volume fraction] 40.0 % Normal 35.0-47.0 [facility] Comment on above: Performed By: #### A CET4, SAL33, ETOH4, QWAL, HEMDF, CMP3 #### [address] [address] [place], [place] Hemoglobin (Bld) [Mass/Vol] 12.9 g/dL Normal 11.7-16.0 [facility] Comment on above: Performed By: #### A CET4, SAL33, ETOH4, QWAL, HEMDF, CMP3 #### [address] Lymphocytes (Bld) [#/Vol] 1.6 10*3/uL Normal 1.0-4.3 [facility] Comment on above: Performed By: #### A CET4, SAL33, ETOH4, QWAL, HEMDF, CMP3 #### [address] Lymphocytes/100 WBC (Bld) 23.2 % Normal 20.0-40.0 [facility] Comment on above: Performed By: #### A CET4, SAL33, ETOH4, QWAL, HEMDF, CMP3 #### [address] MCH (RBC) [Entitic mass] 25.9 pg Low 26.0-34.0 [facility] Comment on above: Performed By: #### A CET4, SAL33, ETOH4, QWAL, HEMDF, CMP3 #### [address] MCHC (RBC) [Mass/Vol] 32.2 % Normal 32.0-36.0 [facility] Comment on above: Performed By: #### A CET4, SAL33, ETOH4, QWAL, HEMDF, CMP3 #### [address] MCV (RBC) [Entitic vol] 80.4 fL Normal 79.0-98.0 [facility] Comment on above: Performed By: #### A CET4, SAL33, ETOH4, QWAL, HEMDF, CMP3 #### [address] Monocytes (Bld) [#/Vol] 0.5 10*3/uL Normal 0.0-0.8 [facility] Comment on above: Performed By: #### A CET4, SAL33, ETOH4, QWAL, HEMDF, CMP3 #### [address] [address] [address] [place], [place] Monocytes/100 WBC (Bld) 7.2 % Normal 2.0-10.0 [facility] Comment on above: Performed By: #### A CET4, SAL33, ETOH4, QWAL, HEMDF, CMP3 #### [address] [address] [address] [place], [place] Platelet mean volume (Bld) [Entitic vol] 8.7 fL Normal 7.4-10.4 [facility] Comment on above: Performed By: #### A CET4, SAL33, ETOH4, QWAL, HEMDF, CMP3 #### [address] [address] [address] [place], [place] Platelets (Bld) [#/Vol] 326 10*3/uL Normal 140-440 [facility] Comment on above: Performed By: #### A CET4, SAL33, ETOH4, QWAL, HEMDF, CMP3 #### [address] [address] [address] [place], [place] RBC (Bld) [#/Vol] 4.97 10*6/uL Normal 3.80-5.20 [facility] Comment on above: Performed By: #### A CET4, SAL33, ETOH4, QWAL, HEMDF, CMP3 #### [address] [address] [address] [place], [place] WBC (Bld) [#/Vol] 6.8 10*3/uL Normal 3.6-10.7 [facility] Comment on above: Performed By: #### A CET4, SAL33, ETOH4, QWAL, HEMDF, CMP3 #### [address] Otheron 06-04-2020 Test Performed by [id number] [place] [address] [place], [place] Salicylateon 06-04-2020 Salicylate Lvl <1.0 0 - 20 mg/dL [facility], [place] Test Performed by [address] [address] [facility], [place] Salicylateson 06-04-2020 Salicylates < 1.0 Normal 0.0-20.0 [facility] Comment on above: Performed By: #### A CET4, SAL33, ETOH4, QWAL, HEMDF, CMP3 #### [facility] [address] [place] [address] Urine Drug Screenon 06-04-19 21 Amphetamines, urine Negative [facility] [place], [place] Barbiturates, Ur Negative [facility] [place] Benzodiazepine Ur Qual Negative [facility] [place] Cocaine Metabolites, Ur Negative [facility] [place] Methadone, Urine Negative [facility] [place] Opiates, Urine Negative [facility] [place] Oxycodone Screen, Ur Negative [facility] [place] PCP, Urine Negative [facility], [place] Comment on above: The expected value [...] confirmation under separate order. Test Performed by [facility], [address] [place] [address] [facility], [place] GI FLUORO CHEST SNIFF TESTon 03-19-2020 GI [...] right hemidiaphragm. IMPRESSION: 1. Normal diaphragmatic excursion. Integrated Specialist: PSCLore Transcribe Date/Time: Mar 19 2020 9:24A Dictated by : LISA KRAUS MD This examination was interpreted and the report reviewed and electronically signed by: LISA KRAUS MD on Mar 19 2020 9:27AM EST [id number] [facility] Vital Signs Date Time Vital Sign Value Performing Clinician Malia martinez 08-11-2024 08:39-0400 Body height 172.7 cm Christianne Carranza ROD MILL TENDER.CNM Work Phone: [facility] 08-11-2024 08:39-0400 Body mass index (BMI) [Ratio] 27.37 kg/m2 Christianne Carranza ROD MILL TENDER.CNM Work Phone: [facility] 08-11-2024 08:39-0400 Body weight 81.65 kg Christianne Carranza ROD MILL TENDER.CNM Work Phone: [facility] 08-11-2024 08:39-0400 Diastolic blood pressure 72 mm[Hg] Christianne Carranza ROD MILL TENDER.CNM Work Phone: [facility] 08-11-2024 08:39-0400 Systolic blood pressure 110 mm[Hg] Christianne Carranza ROD MILL TENDER.CNM Work Phone: [facility] 06-29-2024 09:06-0500 Body height 172.7 cm Mike Ceballos MD Work Phone: [facility] 06-29-2024 09:06-0500 Body mass index (BMI) [Ratio] 27.06 kg/m2 Mike Ceballos MD Work Phone: [facility] 06-29-2024 09:06-0500 Body weight 80.74 kg Mike Ceballos MD Work Phone: [facility] 06-29-2024 09:06-0500 Diastolic blood pressure 64 mm[Hg] Mike Ceballos MD Work Phone: [facility] 06-29-2024 09:06-0500 Systolic blood pressure 100 mm[Hg] iMke Ceballos MD Work Phone: [facility] 05-11-2024 10:17-0500 Body mass index (BMI) [Ratio] 26.51 kg/m2 Mike Ceballos MD Work Phone: [facility] 05-11-2024 10:17-0500 Body weight 76.2 kg Mike Ceballos MD Work Phone: [facility] 05-11-2024 10:17-0500 Diastolic blood pressure 74 mm[Hg] Mike Ceballos MD Work Phone: [facility] 05-11-2024 10:17-0500 Systolic blood pressure 106 mm[Hg] Mike Ceballos MD Work Phone: [facility] 11-25-2023 08:05-0400 Body mass index (BMI) [Ratio] 26.19 kg/m2 Mike Ceballos MD Work Phone: [facility] 11-25-2023 08:05-0400 Body weight 75.3 kg Mike Ceballos MD Work Phone: [facility] 11-25-2023 08:05-0400 Diastolic blood pressure 60 mm[Hg] Mike Ceballos MD Work Phone: [facility] 11-25-2023 08:05-0400 Systolic blood pressure 100 mm[Hg] Mike Ceballos MD Work Phone: [facility] 02-26-2023 14:00-0400 Body height 170.2 cm Kiki Sagin[place] ROD MILL TENDER.RESIDENTIAL TREATMENT SPECIALIST Work Phone: [facility] 02-26-2023 14:00-0400 Body weight 73.94 kg Kiki [place] ROD MILL TENDER.RESIDENTIAL TREATMENT SPECIALIST Work Phone: [facility] 02-26-2023 14:00-0400 Diastolic blood pressure 64 mm[Hg] Kiki Milan ROD MILL TENDER.RESIDENTIAL TREATMENT SPECIALIST Work Phone: [facility] 02-26-2023 14:00-0400 Systolic blood pressure 112 mm[Hg] Kiki Milan ROD MILL TENDER.RESIDENTIAL TREATMENT SPECIALIST Work Phone: [facility] 06-11-2020 05:45-0500 Body Temperature 97.7 [degF] [facility], [place] 06-11-2020 05:45-0500 BP Diastolic 74 mm[Hg] [facility] , [place] 06-11-2020 05:45-0500 BP Systolic 117 mm[Hg] [facility] , [place] 06-11-2020 05:45-0500 Pulse (Heart Rate) 67 /min [facility], [place] 06-11-2020 05:45-0500 Pulse Oximetry 98 % [place], [place] 06-11-2020 05:45-0500 Respiratory Rate 16 /min [facility] [place] 06-04-2020 20:24-0500 BMI (Body Mass Index) 21.79 kg/m2 [facility], [place] 06-04-2020 20:24-0500 Body weight 61.24 kg [facility] , [place] 06-04-2020 20:24-0500 Height 167.6 cm [place], [place] Encounters Encounter Date Encounter Type Care Provider Facility Start: 03-30-2025 End: 03-30-2025 ambulatory Sania Fernandez [facility] Start: 03-23-2025 End: 03-23-2025 ambulatory [facility] Start: 03-22-2025 End: 03-23-2025 ambulatory [facility] Facility:[facility] Start: 03-16-2025 End: 03-16-2025 ambulatory [facility] Start: 03-15-2025 End: 03-16-2025 ambulatory [facility] Facility:[facility] Start: 03-10-2025 End: 03-13-2025 Evaluation and management of inpatient [facility] Facility:[facility] Start: 03-10-2025 End: 03-10-2025 ambulatory Sundeep Sher [facility] Start: 03-10-2025 End: 03-10-2025 ambulatory Flory Bell Dilshadshelley Facility:[facility] Start: 03-09-2025 End: 03-09-2025 ambulatory SUNDEEP MCLEANUTZMAN [facility] Start: 03-07-2025 End: 03-07-2025 ambulatory Sundeep Sher [facility] Start: 03-07-2025 End: 03-07-2025 ambulatory Sundeep Sher [facility] Start: 03-05-2025 End: 03-05-2025 Emergency department patient visit Sundeep Sher Facility:[facility] Start: 03-05-2025 ambulatory Sundeep Sher [facility]: [facility] Start: 03-04-2025 End: 03-04-2025 ambulatory Sundeep Sher Facility:[facility] Start: 03-01-2025 End: 03-03-2025 ambulatory Sundeep Sher Facility:[facility] Start: 03-01-2025 End: 03-01-2025 ambulatory Sundeep Sher [facility] Start: 02-26-2025 ambulatory Sundeep Sher [facility] Start: 02-25-2025 End: 02-25-2025 ambulatory Sundeep McleanChristos Facility:[facility] Start: 02-23-2025 ambulatory Tiera Finley lity:[facility] Start: 02-22-2025 End: 02-22-2025 ambulatory Sundeep Sher [facility] Start: 02-22-2025 End: 02-22-2025 ambulatory Sundeep Sher Facility:[facility] Start: 02-15-2025 End: 02-15-2025 ambulatory Tiera Mcfarland Facility:[facility] Start: 02-10-2025 End: 02-10-2025 ambulatory NAVDEEP JEFFREY [facility] Start: 02-09-2025 End: 02-09-2025 ambulatory Sundeep Sher [facility] Start: 02-07-2025 End: 02-07-2025 ambulatory NAVDEEP JEFFREY [facility] Start: 02-01-2025 End: 02-01-2025 ambulatory Navdeep Jeffrey Facility:[facility] Start: 01-24-2025 End: 01-24-2025 ambulatory Sundeep Sher [facility] Start: 01-24-2025 End: 01-24-2025 ambulatory Tieradonell Riosjamarisaranya Facility:[facility] Start: 01-06-2025 End: 01-06-2025 ambulatory Sundeep Sher [facility] Start: 12-29-2024 End: 12-29-2024 ambulatory Tieradonell Riosmike Facility:[facility] Start: 12-26-2024 End: 12-26-2024 ambulatory Sundeep McleanChristos [facility] Start: 12-26-2024 End: 12-26-2024 ambulatory Tieradonell Riosjamarisaranya Facility:[facility] Start: 12-20-2024 End: 12-20-[address] [facility] Start: 12-07-2024 End: 12-07-2024 ambulatory Sundeep Christos [facility] Start: 12-06-2024 End: 12-06-2024 Emergency department patient visit Markei Quirso Facility:[facility] Start: 12-01-2024 End: 12-01-2024 ambulatory NAVDEEP Moore [facility] Start: 11-17-2024 End: 11-17-2024 ambulatory NAVDEEP Moore [facility] Start: 11-09-2024 End: 11-09-2024 ambulatory Sundeep Sher [facility] Start: 11-04-2024 End: 11-04-2024 ambulatory Angela Vigil [facility] Start: 11-04-2024 End: 11-04-2024 ambulatory Angela Vigil Facility:[facility] Start: 10-19-2024 End: 10-19-2024 ambulatory Tiera Mcfarland Facility:[facility] Start: 10-13-2024 End: 10-13-2024 ambulatory Navdeep Jeffrey [facility] Start: 10-13-2024 End: 10-13-2024 ambulatory Navdeep Jeffrey Facility:[facility] Start: 10-05-2024 End: 10-05-2024 ambulatory Tiera Mcfarland Facility:[facility] Start: 10-03-2024 End: 10-03-2024 ambulatory NAVDEEP Moore [facility] Start: 09-22-2024 End: 09-22-2024 ambulatory NAVDEEP JEFFREY [facility] Start: 09-19-2024 End: 09-19-2024 ambulatory Tieradonell Mcfarland Facility:[facility] Start: 09-14-2024 End: 09-14-2024 ambulatory Tiera Mcfarland Facility:[facility] Start: 08-31-2024 End: 08-31-2024 ambulatory Bertha Wood Facility:[facility] Start: 08-24-2024 End: 08-24-2024 ambulatory Bertha S Augustaconrado [facility] Start: 08-19-2024 End: 08-19-2024 ambulatory Navdeep Jeffrey Facility:[facility] Start: 08-19-2024 End: 08-19-2024 ambulatory Navdeep Jeffrey Facility:[facility] Start: 08-16-2024 End: 10-17-2024 Follow-up encounter Rosario Escalona MD Work Phone: OB/Gynecology Start: 08-15-2024 End: 08-15-2024 ambulatory CHRISTIANNE CARRANZA Facility:[facility] Start: 08-14-2024 End: 10-14-2024 Follow-up encounter Rosario Escalona MD Work Phone: OB/Gynecology Start: 08-13-2024 End: 08-13-2024 ambulatory CHRISTIANNE CARRANZA Facility:[facility] Start: 08-12-2024 End: 10-12-2024 Follow-up encounter Christianne Carranza ROD MILL TENDER.CNM Work Phone: OB/Gynecology Start: 08-12-2024 End: 08-12-2024 Telephone encounter Christianne Carranza ROD MILL TENDER.CNM Work Phone: OB/Gynecology Comment on above: Transferred Care Start: 08-12-2024 ambulatory Minoo Arredondo Facility :[facility] Start: 08-11-2024 End: 08-11-2024 ambulatory [facility] Facility[facility] Start: 08-11-2024 End: 08-11-2024 Patient encounter procedure Christianne Carranza ROD MILL TENDER.CNM Work Phone: OB/Gynecology Comment on above: with [...] Start: 06-29-2024 End: 06-29-2024 ambulatory MIKE CEBALLOS Facility:[facility] Start: 06-29-2024 End: 06-29-2024 Patient encounter procedure Mike Ceballos MD Work Phone: OB/Gynecology Comment on above: Encounter for gyneco logical examination (general) (routine) without abnormal findings (Primary Dx); Attempting to conceive Start: 06-29-2024 End: 06-29-2024 Patient encounter status Mike Ceballos MD Work Phone: [facility] Start: 05-11-2024 End: 05-11-2024 ambulatory MIKE CEBALLOS Facility:[facility] Start: 05-11-2024 End: 05-11-2024 Patient [...] Start: 11-25-2023 End: 11-25-2023 ambulatory MIKE CEBALLOS Facility:[facility] Start: 11-25-2023 End: 11-25-2023 Patient encounter procedure Mike Ceballos MD Work Phone: OB/Gynecology Comment on above: Irregular menses (Pr imary Dx); Intolerance to cold Start: 02-26-2023 End: 02-26-2023 Patient encounter procedure Kiki Yates ROD MILL TENDER.RESIDENTIAL TREATMENT SPECIALIST Work Phone: OB/Gynecology Comment on above: Secondary amenorrhea (Primary Dx) Start: 06-04-2020 Patient encounter procedure [facility] [place], [place] Procedures Date Procedure Procedure Detail Performing Clinician Start: 03-11-2025 Antibody screen Sundeep Espinoza Comment on above: Order Comment: Labor Performed By: #### B [id number], L100.0100, BTS ####[facility] [id number] [place], [place], [address] Start: 08-11-2024 Antibody screen MIKE CEBALLOS Comment on above: Order Comment: Speci men Type: BLOOD SPECIMENOrdering Facility: [facility] Address: [address] [place] [address] Performed By: #### T SPN ####CC MAIN BLOOD BANKCLIA [id number] [place] [address] [place] Start: 08-11-2024 Us uterus l imited 1/> fetuses Christianne Carranza ROD MILL TENDER.CNM Work Phone: Start: 06-29-2024 UA DIP,URINE HCG [...] routine ecg w/le ast 12 lds w/i&r Caroilnaheladio Lomeli Work Phone: Start: 06-05-2020 Gluc bld [...] - Td) DTaP/Tdap/Td vaccine (5 - Td) [place] Start: 06-04-2030 Urine microalbumin profile DTaP,Tdap,Td Vaccine (8 - Td or Tdap) [facility] Start: 06-08-2026 Screening for malign ant neoplasm of cervix Cervical Cancer Screening [facility] Start: 08-11-2025 GC (Gonorrhea) Scree james (18-24) GC (Gonorrhea) Screening (18-24) [facility] Start: 08-11-2025 Screening for Chlamy jennifer trachomatis Chlamydia Screening (18) [facility] Start: 07-03-2025 End: 07-03-2025 Patient encounter procedure 07/03/2025 9:10 AM EST Office Visit OB/Gynecology [address] [place] [id number] Mike Ceballos MD [address] [place] [id number] Annual OB/Gynecology Comment on above: Annual Start: 02-09-2025 RSV Vaccine (1 - Ris k 1-dose series) RSV Vaccine (1 - Risk 1-dose series) [facility] Start: 01-30-2025 Influenza vaccination Influenz a Vaccine (Season Ended) [facility] Start: 11-17-2024 End: 11-17-2024 Patient encounter procedure 11/17/2024 9:00 AM EDT Routine Office Visit [facility]aternal [facility] [address] [place] [id number] Anatomy/OB [facility] Comment on above: Anatomy/OB Start: 09-08-2024 End: 09-08-2024 Patient encounter procedure 09/08/2024 10:20 AM EDT Routine Office Visit OB/Gynecology [address] [place] [id number] Dell Alonso MD [address] [place] [id number] 1st OB - LMP 06/30/2024 OB/Gynecology Comment on above: 1st OB - LMP 06/30/19 25 Start: 08-25-2024 End: 08-25-2024 Patient encounter procedure 08/25/2024 8:30 AM EDT Routine Office Visit OB/Gynecology [address] [place] [id number] Dating OB/Gynecology Comment on above: Dating Start: 08-11-2024 End: 11-10-2024 ANEMIA REFLEX PANEL [facility] Work Phone: Comment on above: Expected: 08/11/2024 , Expires: 11/10/2024 Start: 08-11-2024 End: 11-10-2024 Hepatitis C virus Ab [Presence] in Serum [facility] Comment on above: Expected: 08/11/2024 , Expires: 11/10/2024 Start: 08-11-2024 End: 08-11-2025 OBSTETRIC ULTRASOUND WHI OBSTETRIC ULTRASOUND WHI Anc Imaging Routine with uncertain dates, antepartum Expected: 08/11/2024, Expires: 08/11/2025 [facility] Comment on above: Expected: 08/11/2024 , Expires: 08/11/2025 Start: 08-11-2024 End: 11-10-2024 RUBELLA IGG ANTIBODY [facility] Comment on above: Expected: 08/11/2024 , Expires: 11/10/2024 Start: 06-29-2024 End: 06-29-2024 Patient encounter procedure 06/29/2024 9:10 AM EST Office Visit OB/Gynecology [address] [place] [address] Mike Ceballos MD [address] [place] [address] Annual OB/Gynecology Comment on above: Annual Start: 06-08-2024 GC (Gonorrhea) Scree james (18-24) GC (Gonorrhea) Screening (18-24) [facility] Start: 06-08-2024 Screening for Chlamy jennifer trachomatis Chlamydia Screening () [facility] Start: 05-11-2024 End: 05-11-2024 Patient encounter procedure 05/11/2024 10:30 AM EST Office Visit OB/Gynecology [address] [place] [address] Mike Ceballos MD [address], [place] [id number] IUD REMOVAL OB/Gynecology Comment on above: IUD REMOVAL Start: 02-24-2024 End: 02-24-2024 Patient encounter procedure 02/24/2024 8:00 AM EDT Office Visit OB/Gynecology [address], [place] [id number] Mike Ceballos MD [address] [place] [address] IUD Removal OB/Gynecology Comment on above: IUD Removal Start: 01-31-2024 Covid-19 Vaccine ( season) Covid-19 Vaccine ( season) [facility] Start: 01-31-2024 Influenza vaccination [facility] Start: 11-25-2023 End: 02-24-2024 Thyrotropin [Units/volume] in Serum or Plasma [facility] Work Phone: Comment on above: Expected: 11/25/2023 , Expires: 02/24/2024 Start: 01-30-2023 Covid-19 Vaccine ( season) Covid-19 Vaccine ( season) [facility] Start: 01-30-2023 Influenza vaccination Influenza Vacc ine (#1) [facility] Start: 2022 Pap Testing Pap Testing [facility] Start: 06-01-2022 Depression Assessment Depression Ass essment [facility] Start: 2020 Urine microalbumin profile DTaP,Tdap,Td Vaccine (1 - Tdap) [facility] Start: 01-31-2020 Influenza vaccination Flu vaccine (# 1) [facility] [place] Start: 08-21-2019 Chlamydia Screening (18-24) Chlamydia Screening (18-24) [facility] Start: 08-21-2019 GC (Gonorrhea) Scree james (18-24) GC (Gonorrhea) Screening (18-24) [facility] Start: 08-21-2019 Hepatitis C Screening Hepatitis C [facility] Start: 08-21-2019 Hepatitis C screening Hepatitis C [facility] Start: 08-21-2019 HIV Screening HIV Screening [facility] Start: 2017 Meningococcal B Vacc ine (1 of 2 - Standard) Meningococcal B Vaccine (1 of 2 - Standard) [facility] Start: 2017 Meningococcal B Vacc ine: Consider Based On Risk (1 of 2 - Patient Seeks Protection) Meningococcal B Vaccine: Consider Based On Risk (1 of 2 - Patient Seeks Protection) [facility] Start: 2017 Screening for Chlamy jennifer trachomatis Chlamydia screen [place], [place] Start: 2016 HIV screening HIV screen Stephanie Abel [place], [place] Start: 08-21-2015 Peds To Adult Transi tion Annual Assessment Peds To Adult Transition Annual Assessment [facility] Start: 2013 Peds To Adult Transi tion Initial Discussion Peds To Adult Transition Initial Discussion [facility] Start: 2010 HPV Vaccine (1 - 2-d ose series) HPV Vaccine (1 - 2-dose series) [facility] Start: 05-23-2002 Hepatitis B vaccine (3 of 3 - 3-dose primary series) Hepatitis B vaccine (3 of 3 - 3-dose primary series) [place] Start: 02-20-2002 Covid-19 Vaccine (#1) Covid-19 Vacci ne (#1) [facility] Start: 2001 Hepatitis B Vaccine (1 of 3 - 3-dose series) Hepatitis B Vaccine (1 of 3 - 3-dose series) [facility] Start: 2001 Hepatitis C screening Hepatitis C sc reen [place], [place] Bacteria identified in Urine by Culture BACTERIAL CULTURE, URINE Microbiology Routine with uncertain dates, antepartum 08/11/2024 9:34 AM EDT [facility] Chlamydia trachomatis+Neisseria gonorrhoeae DNA [Presence] in Unspecified specimen by SANTY with probe detection GONORRHEA/CHLAMYDIA NAAT Lab Routine with uncertain dates, antepartum 08/11/2024 9:34 AM EDT [facility] End: 09-09-2024 Choriogonadotropin.beta subunit [Units/volume] in Serum or Plasma HCG QUANTITATIVE Lab Routine with uncertain dates, antepartum 2x per week for 8 Occurrences starting 08/11/2024 until 09/09/2024, 1 completed [facility] Comment on above: 2x per week for 8 Oc currences starting 08/11/2024 until 09/09/2024, 1 completed Removal intrauterine device iud REMOVE INTRAUTERINE DEVICE Procedures Routine Encounter for IUD removal Ordered: 01/18/2024 [facility] Work Phone: Comment on above: Ordered: 01/18/2024 Removal intrauterine device iud REMOVE INTRAUTERINE DEVICE Procedures Routine Encounter for IUD removal Ordered: 05/11/2024 [facility] Work Phone: Comment on above: Ordered: 05/11/2024 TRICHOMONAS VAGINALI S NAAT TRICHOMONAS VAGINALIS NAAT Lab Routine with uncertain dates, antepartum 08/11/2024 9:34 AM EDT [facility] Immunizations Immunization Date Immunization Notes Care Provider Duc patel 06-04-2020 tetanus toxoid, reduced diphtheria toxoid, and acellular pertussis vaccine, adsorbed [facility], [place] 03-07-2019 influenza virus vaccine, unspecified formulation Kiki Milan ROD MILL TENDER.RESIDENTIAL TREATMENT SPECIALIST Work Phone: [facility] NEGATED: Highlighted row has not occurred!07-23-2020 influenza, injectable, quadrivalent, preservative free Kiki [place] ROD MILL TENDER.RESIDENTIAL TREATMENT SPECIALIST Work Phone: [facility] Comment on above: Deferred: Patient Re fused - Not in patient's med bin at time of discharge & patient did not want to wait for it to come from pharmacy Payers Date Payer Category Payer Self-pay 2024 [facility] [id number] 2024 Unknown [id number] 2023 Unknown [id number] 2021 Unknown [id number] 2020 Unknown [facility] [facility] [employer] [facility] [id number] 2020-Present [phone] [id number] [facility] PRASHANTH BARRETT [id number] .[id number] 2001 Unknown [id number] 2.16.840.1.056199.3.579.2 .479 2001 Unknown [id number] 2.16.840.1.569838.3.579.2 .479 2001 Unknown [id number] 2.16.840.1.843486.3.579.2 .479 2001 Unknown [id number] 2.16.840.1.195177.3.579.2 .479 2001 Unknown [id number] 2.16.840.1.241588.3.579.2 .479 2001 Unknown [id number] 2.16.840.1.390462.3.579.2 .479 2001 Unknown [id number] 2.16.840.1.907118.3.579.2 .479 2001 Unknown [id number] 2.16.840.1.202828.3.579.2 .479 2001 Unknown [id number] 2.16.840.1.665812.3.579.2 .479 Unknown [id number] 2.16.840.1.776889.3.579.2 .462 Unknown [id number] 2.16.840.1.134555.3.579.2 .462 Unknown [id number] 2.16.840.1.865534.3.579.2 .462 Unknown [id number] 2.16.840.1.404154.3.579.2 .462 Unknown [id number] 2.16.840.1.718065.3.579.2 .462 Unknown [id number] 2.16.840.1.402298.3.579.2 .462 Unknown [id number] 2.16.840.1.050807.3.579.2 .462 Unknown [id number] 2.16.840.1.857527.3.579.2 .462 Unknown [id number] 2.16.840.1.602687.3.579.2 .462 Unknown [id number] 2.16.840.1.513215.3.579.2 .462 Unknown [id number] 2.16.840.1.168731.3.579.2 .462 Unknown [id number] 2.16.840.1.400246.3.579.2 .462 Unknown [id number] 2.16.840.1.829079.3.579.2 .462 Unknown [id number] 2.16.840.1.954794.3.579.2 .462 Unknown [id number] 2.16840.1.007656.3.579.2 .462 Unknown [id number] 2.16.840.1.393222.3.579.2 .462 Unknown [id number] 2.16.840.1.809462.3.579.2 .462 Unknown [id number] 2.16.840.1.469231.3.579.2 .462 Unknown [id number] 2.16.840.1.141528.3.579.2 .462 Unknown [id number] 2.16.840.1.682780.3.579.2 .462 Unknown [id number] 2.16.840.1.079451.3.579.2 .462 Unknown [id number] 2.16.840.1.237884.3.579.2 .462 Unknown [id number] 2.16.840.1.057600.3.579.2 .462 Unknown [id number] 2.16.840.1.717552.3.579.2 .462 Unknown [id number] 2.16.840.1.900853.3.579.2 .462 Unknown [id number] 2.16.840.1.003679.3.579.2 .462 Unknown [id number] 2.16.840.1.365602.3.579.2 .462 Unknown [id number] 2.16.840.1.482504.3.579.2 .462 Unknown [id number] 2.16.840.1.581404.3.579.2 .462 Unknown [id number] 2.16.840.1.243719.3.579.2 .462 Unknown [id number] 2.16.840.1.551486.3.579.2 .462 Unknown [id number] 2.16.840.1.255136.3.579.2 .462 Unknown [id number] 2.16840.1.207956.3.579.2 .462 Unknown [id number] 2.16.840.1.652595.3.579.2 .462 Unknown [id number] 2.16.840.1.523015.3.579.2 .462 Unknown [id number] 2.16.840.1.412858.3.579.2 .462 Unknown [id number] 2.16840.1.124544.3.579.2 .462 Unknown [id number] 2.16840.1.661577.3.579.2 .462 Unknown [id number] 2.16.840.1.574878.3.579.2 .462 Unknown [id number] 2.16.840.1.322734.3.579.2 .462 Unknown [id number] 2.16.840.1.566497.3.579.2 .462 Unknown [id number] 2.16.840.1.690736.3.579.2 .462 Unknown [id number] 2.16.840.1.440331.3.579.2 .462 Unknown [id number] 2.16.840.1.605717.3.579.2 .462 Unknown [id number] 2.16.840.1.112134.3.579.2 .462 Unknown [id number] 2.16.840.1.136308.3.579.2 .462 Unknown [id number] 2.16.840.1.917164.3.579.2 .462 Unknown [id number] 2.16.840.1.923227.3.579.2 .462 Unknown [id number] 2.16.840.1.704884.3.579.2 .462 Unknown [id number] 2.16.840.1.461181.3.579.2 .462 Unknown [id number] 2.16.840.1.549094.3.579.2 .462 Unknown [id number] 2.16.840.1.126089.3.579.2 .462 Unknown [id number] 2.16.840.1.605730.3.579.2 .462 Unknown [id number] 2.16.840.1.562733.3.579.2 .462 Unknown [id number] 2.16.840.1.196987.3.579.2 .462 Unknown [id number] 2.16.840.1.881151.3.579.2 .462 Unknown [id number] 2.16.840.1.735020.3.579.2 .462 Unknown [id number] 2.16840.1.632022.3.579.2 .462 Social History Date Type Detail Facility Start: 06-04-2020 Tobacco smoking status NHIS Never smoker [place] Start: 06-04-2020 End: 08-11-2024 Tobacco use and exposure Never used [place] Start: 06-04-2020 [facility]: [facility]2020 History SDOH [facility] Start: 2001 Sex Assigned At Not on file M [facility] ANGEL LUIS Exposure to SARS-CoV-2 (event) Not sure [facility] Start: 02-26-2023 End: 08-11-2024 Tobacco smoking status NHIS Ex-smoker [facility] History of tobacco use Current smoker [facility] History of tobacco use Cigarette Smoker [facility] Start: 02-26-2023 End: 05-11-2024 Alcohol intake Current drinker of alcohol (finding) [facility] Start: 02-26-2023 End: 06-08-2023 History of Social function [facility] Start: 02-26-2023 End: 06-08-2023 Tobacco use panel [facility] National Score (1-100), lower number is lower risk 48 [facility] Start: 06-08-2023 Education 13 [facility] Start: 06-29-2024 End: 08-12-2024 Alcoholic beverage intake Ex-drinker (finding) [facility] Start: 07-14-2024 [facility] NEGATED: Highlighted rowStart: NINF History of tobacco use Passive smoker [facility] Functional Status Date Assessment Result Facility 07-23-2020 Are you deaf, or do you have serious difficulty hearing No 07/23/2020 4:53 PM Saira Hi RN No [facility] 07-23-2020 Are you blind, or do you have serious difficulty seeing, even when wearing glasses No 07/23/2020 4:53 PM Saira Hi RN No [facility] 07-23-2020 Do you have serious difficulty walking or climbing stairs No 07/23/2020 4:53 PM Saira Hi RN No [facility] 07-23-2020 Do you have difficul ty dressing or bathing No 07/23/2020 4:53 PM Saira Hi, ULISES No [facility] 07-23-2020 Because of a physica l, mental, or emotional condition, do you have difficulty doing errands alone such as visiting a physician's office or shopping No 07/23/2020 4:53 PM Saira Hi, ULISES No [facility] Mental Status Date Assessment Result Facility 07-23-2020 Because of a physica l, mental, or emotional condition, do you have serious difficulty concentrating, remembering, or making decisions No 07/23/2020 4:53 PM Saira Hi, RN No [facility] Clinical Notes 02-26-2023 to 03-13-2025 Telephone Encounter - Dasha Welsh RN - 08/12/2024 10:39 AM EDTTelephone Encounter - Dasha Welsh RN - 08/12/2024 10:39 AM EDTPatient Chacho Pugh MA - 08/11/2024 8:28 AM EDT Note Date & Type Note Facility 03-13-2025 Note [facility] 02-10-2025 Note [facility] pital [facility] CONSULTATION Referring Provider Navdeep Jeffrey, RENUKA [address] [facility] [address] [place] [address] SUBJECTIVE Alejandra Kiran is a 24 y.o. [...] detailed ultrasound report. Laboratory Studies reviewed in [facility]. Medical Discussion: Ultrasound results reviewed. The [...] reduce the ris (more content not included)... [facility] 09-22-2024 Note Consultation has jose christensen [...] counseling and care are largely handled at [place] [address] in [place] but she also sees a separate counselor, Kimberly LouisNewnan) for therapy s/p 2 incidences of hospitalization for anorexia and for episode of suicidal ideation. She states she is stable and under control. Alejandra had a cervical rib removed for thoracic outlet syndrome. She is a twin from an IVF . She desires NIPT/Carrier screening. Imagin. Nava intrauterine with cardiac activity present at 10w 6d with an HERBIE of 04/14/2025. 2. Sumiton rump length measurement are consistent with supplied dating. 3. Anatomic detail is extremely limited at this early gestational age. No gross abnormalities were noted on this examination. 4. Normal uterus and adnexa. 5. Absence of free fluid in the pelvis. Please refer to the ultrasound report for full details. [facility] Counseling Summary I reviewed the information [...] topics are listed above. Martine Llanes MD [facility] Physician, Maternal- Medicine [facility] 08-12-2024 Telephone encounter Note Patient transferred care for remainder of . She was seen in our office for 1 visit. Please bill all visits. Dasha Welsh RN [facility] 08-12-2024 Miscellaneous Notes Patient transferred care for remainder of . She was seen in our office for 1 visit. Please bill all visits. Dasha Welsh RN documented in this encounter [facility] 08-11-2024 Instructions Chacho Redman MA - 08/11/2024 8:31 AM EDT Please select the following link to access the [facility] Your Guide to a Healthy . [email or web address] documented in this encounter [facility] 08-11-2024 Note HNO ID: [id number] Author: CHACHO REDMAN MA Service: ? Author Type: Human Resources Coordinator Type: Progress Notes Filed: 08/11/2024 15:56 Note Text: OB point of care ultrasound was performed. See imaging tab for details. Chacho Redman MA [facility] 08-11-2024 History of Presen t illness Narrative OB point of care ultrasound was performed. See imaging tab for details. Chacho Redman MA *Patient is a twin but mother had IVF *Pt has a history of depression/anxiety/Bipoar 2 diagnosed in [address] Frannie Hudson at [place] [address] in [place]. She states that she has had 2 inpatient mental hospitalizations for this the last 1 being in 2020. She states she last had suicidal thoughts in 2020. Discussed increased risks of depression during and and importance of reporting the development or worsening of symptoms should they occur. *She has a history of anorexia and sees a therapist at [facility] in [facility].-She states she has had inpatient treatment [...] the following (please check all that apply)? 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 As applicable, any other physician, advance practice provider, medical student, or other health professional student that will be observing or involved in the sensitive examination for educational or training purposes was discussed with the Patient or Authorized Robotic Welder. The Patient or Authorized Robotic Welder has agreed to proceed with the sensitive [...] prhanane Carranza APRN.CNM documented in this encounter [facility] 08-09-2024 Note HNO ID: [id number] Author: CHRISTIANNE CARRANZA APRN.CNM Service: ? Author Type: Olive Picker Type: Progress Notes Filed: 08/11/2024 15:56 Note Text: *Patient is a twin but mother had IVF *Pt has a history of depression/anxiety/Bipoar 2 diagnosed in [address] Frannie Hudson at [place] [address] in [place]. She states that she has had 2 inpatient mental hospitalizations for this the last 1 being in 2020. She states she last had suicidal thoughts in 2020. Discussed increased risks of depression during and and importance of reporting the development or worsening of symptoms should they occur. *She has a history of anorexia and sees a therapist at [facility] in [facility].-She states she has had inpatient treatment [...] the following (please check all that apply)? 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 [facility] 08-09-2024 Telephone encounter Note Patient called back. Can call her around 10:30 or 11:00 today. Thank you. [facility] 08-09-2024 Miscellaneous Notes Patient called back. Can call her around 10:30 or 11:00 today. Thank you. Left message for patient to return phone call to complete nurse intake questions for her upcoming appointment. Patient has an appointment with Christianne Carranza for NOB appointment. I am here today if she calls back or transfer to [facility] documented in this encounter [facility] 08-09-2024 Telephone encounter Note Left message for patient to return phone call to complete nurse intake questions for her upcoming appointment. Patient has an appointment with Christianne Carranza for NOB appointment. I am here today if she calls back or transfer to [facility] 06-29-2024 Note HNO ID: [id number] Author: MIKE CEBALLOS MD Service: ? Author Type: Physician Type: Progress Notes Filed: 07/01/2024 10:13 Note Text: Wastewater Engineer offered: Patient accepts, visit chaperoned by Erica [...] L0 SAB0 IAB0 Ectopic0 Multiple0 Live Births0 Program Management Manager History LMP: 06/01/2024, Having periods Age at Menarche: 13 Age at First : Age at Menopause: Program Management Manager History Comments: Sexual Activity: Yes; Male [...] discussed with the Patient or Patient's Authorized Robotic Welder. As applicable, any other physician, advance practice provider, medical student, or other health professional student that will be observing or involved in the sensitive examination for educational or training purposes was discussed with the Patient or Authorized Robotic Welder. The Patient or Authorized Robotic Welder has agreed to proceed with the sensitive [...] external genitalia normal, normal Bartholin's glands, urethra, Annetta's glands, no vulvar lesions, no cervical lesions, [...] or sooner as needed Mike Ceballos MD [facility] 06-29-2024 History of Presen t illness Narrative Wastewater Engineer offered: Patient accepts, visit chaperoned by Erica [...] L0 SAB0 IAB0 Ectopic0 Multiple0 Live Births0 Program Management Manager History LMP: 06/01/2024, Having periods Age at Menarche: 13 Age at First : Age at Menopause: Program Management Manager History Comments: Sexual Activity: Yes; Male [...] discussed with the Patient or Patient's Authorized Robotic Welder. As applicable, any other physician, advance practice provider, medical student, or other health professional student that will be observing or involved in the sensitive examination for educational or training purposes was discussed with the Patient or Authorized Robotic Welder. The Patient or Authorized Robotic Welder has agreed to proceed with the sensitive [...] external genitalia normal, normal Bartholin's glands, urethra, Annetta's glands, no vulvar lesions, no cervical lesions, [...] Mike Ceballos MD documented in this encounter [facility] 05-11-2024 Note HNO ID: [id number] Author: MIKE CEBALLOS MD Service: ? Author Type: Physician Type: Progress Notes Filed: 05/11/2024 10:51 Note Text: Wastewater Engineer offered: Patient accepts, visit chaperoned by Erica [...] not within 12 months. Mike Ceballos MD [facility] 05-11-2024 History of Presen t illness Narrative Wastewater Engineer offered: Patient accepts, visit chaperoned by Erica [...] Mike Ceballos MD documented in this encounter [facility] 05-05-2024 Telephone encounter Note Patient called. She is not having any pain. Her appointment on 05/18 is to remove the IUD. Offered a Thursday appointment with AT. Patient declined. Scheduled on 05/11. Patient to call if she chooses to come in for a sooner appointment or with another provider. Flory Manning RN [facility] 05-05-2024 Miscellaneous Notes Patient called. She [...] Julia Chapa RN documented in this encounter [facility] 05-05-2024 Telephone encounter Note Noe placed 02/26/2023. Please see Pt's mychart message. Julia Chapa RN [facility] 01-18-2024 Telephone encounter Note Patient called and appointment scheduled. Hellen Campoverde RN [facility] 01-18-2024 Miscellaneous Notes Patient called and appointment scheduled. Hellen Campoverde RN filed Please file order in AT absence. Will call Pt to get scheduled once order is filed. Julia Chapa RN Patient is calling requesting to have IUD Liletta removed and would like this with Ayo Ceballos. Please advise patient once order is placed documented in this encounter [facility] 01-18-2024 Telephone encounter Note filed [facility] Work Phone: 01-18-2024 Telephone encounter Note Please file order in AT absence. Will call Pt to get scheduled once order is filed. Julia Chapa RN [facility] 01-18-2024 Telephone encounter Note Patient is calling requesting to have IUD Liletta removed and would like this with Ayo Ceballos. Please advise patient once order is placed [facility] 11-25-2023 Note HNO ID: [id number] Author: ERICA BEVERLY MA Service: ? Author Type: Senior Product Consultant Type: Progress Notes Filed: 11/25/2023 09:37 Note Text: . [facility] 11-25-2023 History of Presen t illness Narrative . Alejandra Kiran is a 23 year old female who presents for problem visit wishing to discuss fertility related to her progestin IUD, Liletta and parental hx of IVF. Reports irregular menses related to anorexia [id number] now resolved and IUD place 2020. Menarche ~ 13 yo and regular until weight loss to 106. Now 160, 5'8. Monthly/cyclic discharge on underwear.. HPI: as above and planning in ~ 12 mo, always feels cold OB History T0 L0 SAB0 IAB0 Ectopic0 Multiple0 Live Births0 Program Management Manager History LMP: 01/15/2023 (Exact Date), IUD Age at Menarche: Age at First : Age at Menopause: Program Management Manager History Comments: Sexual Activity: Yes; Male [...] external genitalia normal, normal Bartholin's glands, urethra, Annetta's glands, no vulvar lesions, no cervical lesions, good vaginal support, physiologic discharge present, normal appearing perineal body and perianal region BIMANUAL: uterus normal size, shape and consistency, no adnexal masses, and non-tender NEURO: alert and oriented x3,exam grossly non-focal EXTREMITIES: normal ASSESSMENT AND PLAN: 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 TSH Prepregnacy discussion, start PNVs Lengthy conversation >45 min Mike Ceballos MD documented in this encounter [facility] 11-25-2023 Note HNO ID: [id number] Author: MIKE CEBALLOS MD Service: ? Author Type: Physician Type: Progress Notes Filed: 11/25/2023 09:37 Note Text: Alejandra Kiran is a 23 year old female who presents for problem visit wishing to discuss fertility related to her progestin IUD, Liletta and parental hx of IVF. Reports irregular menses related to anorexia [id number] IUD [address] 2020. Menarche ~ 13 yo and regular until weight loss to 106. Now 160, 5'8. Monthly/cyclic discharge on underwear.. HPI: as above and planning in ~ 12 mo, always feels cold OB History T0 L0 SAB0 IAB0 Ectopic0 Multiple0 Live Births0 Program Management Manager History LMP: 01/15/2023 (Exact Date), IUD Age at Menarche: Age at First : Age at Menopause: Program Management Manager History Comments: Sexual Activity: Yes; Male [...] external genitalia normal, normal Bartholin's glands, urethra, Annetta's glands, no vulvar lesions, no cervical lesions, good vaginal support, physiologic discharge present, normal appearing perineal body and perianal region BIMANUAL: uterus normal size, shape and consistency, no adnexal masses, and non-tender NEURO: alert and oriented x3,exam grossly non-focal EXTREMITIES: normal ASSESSMENT AND PLAN: 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 TSH Prepregnacy discussion, start PNVs Lengthy conversation >45 min Mike Ceballos MD [facility] 02-26-2023 History of Presen t illness [...] OB History No obstetric history on file. Program Management Manager History LMP: 01/15/2023 (Exact Date), IUD Age at Menarche: Age at First : Age at Menopause: Program Management Manager History Comments: Sexual Activity: Yes; Male [...] 3 - Low documented in this encounter [facility] Evaluation note Diagnosis Secondary amenorrhea- Primary Absence of menstruation [facility] Diagnosis Irregular menses- Primary Irregular menstrual cycle Intolerance to cold Other general symptoms documented in this encounter [facility] note* Diagnosis Encounter for IUD removal- Primary Encounter for removal of intrauterine contraceptive device documented in this encounter [facility] note* Diagnosis Encounter for IUD removal- Primary Encounter for removal of intrauterine contraceptive device documented in this encounter [facility] note* Diagnosis Encounter for gynecological examination (general) (routine) without abnormal findings- Primary Attempting to conceive documented in this encounter [facility] note* Diagnosis with uncertain dates, antepartum- Primary state, incidental 6 weeks gestation of state, incidental Threatened miscarriage Threatened , unspecified as to episode of care Bipolar 2 disorder (HCC) Other bipolar disorders Anorexia nervosa Anxiety Anxiety state, unspecified Depression, unspecified depression type Cholinergic urticaria Encounter for supervision of high risk in first trimester, antepartum documented in this encounter [facility] for referral (narrative)* Outpatient Procedure (Routine) - Pending Review Specialty Diagnoses / Procedures Referred By Jose Roberto rowley Referred To Contact [facility] Diagnoses Encounter for IUD removal Procedures REMOVE INTRAUTERINE DEVICE REMOVE INTRAUTERINE DEVICE Dell Alonso MD [address] [place] [address] [address] [place] [address] Referral ID Status Reason Start Date Expiration Date Visits Requested Visits Authorized [id number] Pending Review Auto-Generat ed Referral 01/18/2024 01/17/2025 1 1 [facility] for referral (narrative)* Outpatient Procedure (Routine) - New Request Specialty Diagnoses / Procedures Referred By Jose Roberto rowley Referred To Contact [facility] Diagnoses Encounter for IUD removal Procedures REMOVE INTRAUTERINE DEVICE REMOVE INTRAUTERINE DEVICE Mike Ceballos MD [address] [facility] [place] [address] [facility] [place] [address] Referral ID Status Reason Start Date Expiration Date Visits Requested Visits Authorized [id number] New Request Auto-Generat ed Referral 05/11/2025 1 1 [facility] Summary Purpose Family History No Family History Records FoundNo Family History Records FoundNo Family History Records FoundNo Family History Records FoundNo Family History Records Found Advance Directives No Advanced Directives Records FoundLatest Code Status on File Code Status Date Activated Date Inactivated Comments Full Code 06/05/2020 5:11 PM Additional Source Comments INFORMATION SOURCE (unrecogn ized section and content) DATE CREATED AUTHOR 03/19/2020 [facility] DATE CREATED AUTHOR AUTHOR'S ORGANIZ ATION 06/12/2020 [facility] DATE CREATED AUTHOR AUTHOR'S ORGANIZ ATION 08/25/2024 [facility] DATE CREATED AUTHOR AUTHOR'S ORGANIZ ATION 03/11/2025 [facility] DATE CREATED AUTHOR AUTHOR'S ORGANIZ ATION 04/02/2025 [facility] Source Comments (unrecognize d section and content) In the event this informatio n is protected by the Federal Confidentiality of Alcohol and Drug Abuse Patient Records regulations: The Federal rules restrict any use of the information to criminally investigate or prosecute any alcohol or drug abuse patient.[facility] the event this information is protected by the Federal Confidentiality of Alcohol and Drug Abuse Patient Records regulations: The Federal rules restrict any use of the information to criminally investigate or prosecute any alcohol or drug abuse patient.[facility] the event this information is protected by the Federal Confidentiality of Alcohol and Drug Abuse Patient Records regulations: The Federal rules restrict any use of the information to criminally investigate or prosecute any alcohol or drug abuse patient.[facility] the event this information is protected by the Federal Confidentiality of Alcohol and Drug Abuse Patient Records regulations: The Federal rules restrict any use of the information to criminally investigate or prosecute any alcohol or drug abuse patient.[facility] the event this information is protected by the Federal Confidentiality of Alcohol and Drug Abuse Patient Records regulations: The Federal rules restrict any use of the information to criminally investigate or prosecute any alcohol or drug abuse patient.[facility] the event this information is protected by the Federal Confidentiality of Alcohol and Drug Abuse Patient Records regulations: The Federal rules restrict any use of the information to criminally investigate or prosecute any alcohol or drug abuse patient.[facility] [facility] HospitalIn the event this information is protected by the Federal Confidentiality of Alcohol and Drug Abuse Patient Records regulations: The Federal rules restrict any use of the information to criminally investigate or prosecute any alcohol or drug abuse patient.[facility] Hospital[facility] the event this information is protected by the Federal Confidentiality of Alcohol and Drug Abuse Patient Records regulations: The Federal rules restrict any use of the information to criminally investigate or prosecute any alcohol or drug abuse patient.[facility] HospitalIn the event this information is protected by the Federal Confidentiality of Alcohol and Drug Abuse Patient Records regulations: The Federal rules restrict any use of the information to criminally investigate or prosecute any alcohol or drug abuse patient.[facility] HospitalIn the event this information is protected by the Federal Confidentiality of Alcohol and Drug Abuse Patient Records regulations: The Federal rules restrict any use of the information to criminally investigate or prosecute any alcohol or drug abuse patient.[facility] HospitalIn the event this information is protected by the Federal Confidentiality of Alcohol and Drug Abuse Patient Records regulations: The Federal rules restrict any use of the information to criminally investigate or prosecute any alcohol or drug abuse patient.[facility] HospitalIn the event this information is protected by the Federal Confidentiality of Alcohol and Drug Abuse Patient Records regulations: The Federal rules restrict any use of the information to criminally investigate or prosecute any alcohol or drug abuse patient.[facility] Reason for Visit (unrecogniz ed section and content) Reason Comments Establish Care Having sym ptoms- mood swings- missed menses- heartburn- cramps- bloating Reason Comments Discussion Reason Comments Orders Reason Onset Date Comments IUD Removal 05/11/2024 Specialty Diagnoses / Procedures Referred By Jose Roberto rowley Referred To Contact [facility] Diagnoses Encounter for IUD removal Encounter for insertion of intrauterine contraceptive device Procedures REMOVE INTRAUTERINE DEVICE REMOVE INTRAUTERINE DEVICE LEVONORGESTREL IU 52MG 3 YR INSERT INTRAUTERINE DEVICE Dell Alonso MD [address] [place] [address] [facility] [address] [place] [address] Referral ID Status Reason Start Date Expiration Date Visits Requested Visits Authorized [id number] Authorized Auto-Generat ed Referral 01/19/2024 05/31/2024 2 2 Reason Comments Well Woman Reason Comments Initial OB Visit Reason Comments Transferred Care Reason Comments Appointment Care Teams (unrecognized sec tion and content) Corporate Relations Manager Relationship Specialty Start Date End Date Bertha Wood [address] [place] [address] PCP - General Family Medicine 06/28/20 Marie Carrillo DO Orthopedics 01/29/16 Corporate Relations Manager Relationship Specialty Start Date End Date Bertha Wood [address] [place] [address] PCP - General Family Medicine 06/28/20 Marie Carrillo DO Orthopedics 01/29/16 Corporate Relations Manager Relationship Specialty Start Date End Date Bertha Wood [address] [place] [address] PCP - General Family Medicine 06/28/20 Marie Carrillo DO Orthopedics 01/29/16 Corporate Relations Manager Relationship Specialty Start Date End Date Bertha Wood [address] [place] [address] PCP - General Family Medicine 06/28/20 Marie Carrillo DO Orthopedics 01/29/16 Corporate Relations Manager Relationship Specialty Start Date End Date Bertha Wood [address] [place] [address] PCP - General Family Medicine 06/28/20 Marie Carrillo DO Orthopedics 01/29/16 Corporate Relations Manager Relationship Specialty Start Date End Date Bertha Wood [address] [place] [address] PCP - General Family Medicine 06/28/20 Marie Carrillo DO Orthopedics 01/29/16 Corporate Relations Manager Relationship Specialty Start Date End Date Bertha Wood [address] [place] [address] PCP - General Family Medicine 06/28/20 Marie Carrillo DO Orthopedics 01/29/16 Corporate Relations Manager Relationship Specialty Start Date End Date Bertha Wood [address] [place] [address] PCP - General Family Medicine 06/28/20 Marie Carrillo DO Orthopedics 01/29/16 Corporate Relations Manager Relationship Specialty Start Date End Date Bertha Wood [address] [place] [address] PCP - General Family Medicine 06/28/20 Marie Carrillo DO Orthopedics 01/29/16 Corporate Relations Manager Relationship Specialty Start Date End Date Bertha Wood [address] [place] [address] PCP - General Family Medicine 06/28/20 Marie [...] BE BASED ON THE PRIMARY CLINICAL RECORDS. [facility] [employer] [facility]. provides no warranty or guarantee of the accuracy or completeness of information in this document.
[2025-05-26] MEDS: 0.9% Normal Saline (1000mL) 1,000 ML 1000 ML IV (16:48)
[2025-05-26 16:51] LABS: Hematocrit 36.4 % (37-47); Hemoglobin 12.4 g/dL (12.0-15.0); Immature Granulocytes Count 0.050 X10^3/uL (0.0-0.0); Mean Corp Hgb Conc 34.1 g/dL (32-36); Mean Corpuscular Volume 82.9 fL (81-99); Mean Platelet Vol. 9.7 fl (6.2-12.0); NRBC Flagged by Analyzer 0 % (0-5); POSITIVE DIFFERENTIAL YES; Platelet Count 221 K/mm3 (150-450); RBC Distribution Width CV 14.9 % (11.6-14.6); RBC Distribution Width SD 45.5 fl (35.1-43.9); Red Blood Count 4.39 M/mm3 (4.2-5.4); White Blood Count 7.7 K/mm3 (4.4-11.0)
[2025-05-26] MEDS: DiphenhydrAMINE 50 MG/ML Syringe 25 MG IV (17:01)
--- NOTE | 2025-05-26 18:10 | EDS_ITS ---
HPI History of Present Illness Chief Complaint: Back Detail of Chief Complaint: Headache, myalgias, fever Informant: patient Onset/Context/Timing Onset: Yesterday Context: Sudden Onset Timing: Continuous and Waxes and wanes Quality: Myalgias, headache, fever Location: Generalized, mostly system Current Severity: Moderate Maximum Severity: Severe Worsened by: Fever Relieved by: Acetaminophen Associated Symptoms Associated Symptoms: Headache, nausea, upper respiratory symptoms, myalgias Narrative Narrative: Patient is a 24-year-old female who was seen earlier today and diagnosed with pyelonephritis/urinary tract infection. The documentation authored by the evening physician Dr. Singh was reviewed. CT revealed no evidence of pyelonephritis. Urine was unremarkable in my opinion patient's blood work was unremarkable as well. She presents now because of persistent fever, bilateral headache, congestion and myalgias predominantly back pain. She denies photophobia, sonophobia, ear pain or discharge, neck stiffness. She denies change in voice or difficulty swallowing. She does have a slight cough. The cough is nonproductive. She has had no vomiting or diarrhea. She denies any urologic symptoms. She was recently prescribed Bactrim for urinary tract infection. She did not complete the course of Bactrim. Patient on her way out of the emergency room was contacted by the urgent care because her vaginal swab was positive for Gardnerella. She was prescribed metronidazole. She was explained that she cannot have anything with alcohol because this may cause her to be very ill with profuse nausea and vomiting. Prior similar symptoms: No Recent Illness/Hospitalization: Yes [facility] Medical History Clogged duct, Nipple pain Engorgement of breasts Care and examination of lactating mother Bipolar disorder Eating disorder Generalized anxiety disorder Hx of thoracic outlet syndrome Home Medications ?Medication ?Instructions ?Recorded ?Last Taken ?Type docosahexaenoic acid 200 mg 200 mg PO DAILY 08/12/24 03/09/25 History capsule ( DHA) fluoxetine 40 mg capsule (Prozac) 60 mg PO QDAY mental health 08/12/24 03/10/25 History fluoxetine 20 mg capsule 80 mg PO DAILY 05/26/25 Unkn own History quetiapine 50 mg tablet 50 mg PO QHS 05/26/25 Unknow n History sulfamethoxazole 800 1 tab PO BID 05/26/25 Unknow n History mg-trimethoprim 160 mg tablet sulfamethoxazole 800 1 tab PO BID #5 tabs 5 Unknown Rx mg-trimethoprim 160 mg tablet (Bactrim DS) sulfamethoxazole 800 1 tab PO BID #5 tabs 5 Unknown Rx mg-trimethoprim 160 mg tablet (Bactrim DS) Allergy/AdvReac Type Severity Reaction Status Date / Time No Known Allergies Allergy Verified 05/26/25 15:39 Family History Grandfather Diabetes CVA (cerebral vascular accident) Grandmother Diabetes Mother Depression Brother Tachycardia Grandmother Thyroid disorder Anxiety Surgical History History of wisdom tooth extraction History of shoulder surgery Social History adopted: No household members: spouse and children number of children: 1 current occupational status: employed current occupation: [employer] current occupational exposures/hazards: No pets and animals: Yes pets and animals: dog(s) history of recent travel: Yes (July 2024 - ) out of state: Yes out of country: No sexually active: Yes Smoking Status: Former smoker quit date: 11/30/23 second hand exposure: No quit status: quit date established alcohol intake: current alcohol intake frequency: holidays/special occasions only details: Not while substance use type: former substance user Date of last use: 2021 well-balanced diet: daily or most days caffeine: Yes Type: coffee eating out: 1-3 times/week during the past year weight has: remained stable what type of physical activity do you participate in: none puma/presybeterian: Scientology seatbelt use: always do you feel safe at home: Yes additional social history: : [employer]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 ROS ROS ED Constitutional Constitutional ED: Reports chills, fever(s) and sweats; Denies subjective Eyes Eyes: Denies blurry vision, change in vision or diplopia ENT ENT ED: Reports rhinorrhea and sore throat; Denies ear pain Cardiovascular Cardiovascular: Denies chest pain or palpitations Respiratory/Chest Respiratory/Chest: Denies cough, dyspnea or dyspnea on exertion Gastrointestinal Gastrointestinal: Reports abdominal pain and nausea; Denies diarrhea or vomiting Genitourinary Genitourinary ED: Reports urinary frequency; Denies dysuria or hematuria Musculoskeletal Musculoskeletal: Reports back pain and myalgias; Denies arthralgias Integumentary Reports rash Neurologic Neurologic: Reports headache(s); Denies paresthesias or weakness Endocrine Endocrinology: Denies cold intolerance or heat intolerance Hematologic/Lymphatic Hematologic/Lymphatic: Reports systems reviewed and no addt'l complaints, except as documented EXAM Physical Exam Const Vital Signs: 05/26/25 15:36 05/26/25 15:39 05/26/25 17:18 Temperature 99.9 F H 99.9 F H Temperature Source Oral Oral Pulse Rate 134 H 134 H Pulse Rate [Lying] 91 Pulse Rate [Sitting (for 1 minute prior to obtaining)] 105 H Pulse Rate [Standing (for 1 minute prior to obtaining)] 126 H Respiratory Rate 22 H 22 H Blood Pressure 125/78 H 125/78 H Blood Pressure [Lying] 117/58 L Blood Pressure [Sitting (for 1 minute prior to obtaining)] 118/85 H Blood Pressure [Standing (for 1 minute prior to obtaining)] 119/70 Blood Pressure Mean 93 93 Blood Pressure Mean [Lying] 77 Blood Pressure Mean [Sitting (for 1 minute prior to obtaining)] 96 Blood Pressure Mean [Standing (for 1 minute prior to obtaining)] 86 Pulse Ox 98 98 Oxygen Delivery Method Room Air Room Air 05/26/25 17:30 05/26/25 18:07 Temperature 98.5 F 97.9 F Temperature Source Oral Pulse Rate 97 93 Pulse Rate [Lying] Pulse Rate [Sitting (for 1 minute prior to obtaining)] Pulse Rate [Standing (for 1 minute prior to obtaining)] Respiratory Rate 16 15 Blood Pressure 119/70 117/50 L Blood Pressure [Lying] Blood Pressure [Sitting (for 1 minute prior to obtaining)] Blood Pressure [Standing (for 1 minute prior to obtaining)] Blood Pressure Mean 86 72 Blood Pressure Mean [Lying] Blood Pressure Mean [Sitting (for 1 minute prior to obtaining)] Blood Pressure Mean [Standing (for 1 minute prior to obtaining)] Pulse Ox 98 97 Oxygen Delivery Method Room Air Positive well nourished and well developed Constitutional Narrative: Patient is flushed and appears ill. BMI is 30.7. General Appearance ED: well developed; Negative for cyanotic, diaphoretic or NAD HEENT Reports dry mucous membranes HEENT Narrative: Ears are normal. TMs normal. Nares patent. Posterior pharynx is normal. Uvula is midline. There is no deviation tongue or protrusion. Mouth ED: Yes dry mucous membranes Mouth: dry mucous membranes Eyes PERRL and EOMs intact bilaterally Eyes Narrative: There is no photophobia. Neck no lymphadenopathy, supple and no JVD Resp normal respiratory effort and clear to auscultation bilaterally Cardio regular rhythm, S1 normal heart sound, S2 normal heart sound and no murmurs Rate: tachycardic GI normal to inspection, nondistended, normoactive bowel sounds, non-tender, non- distended and no masses; Negative for hepatosplenomegaly Back/Spine no CVA tenderness Thoracic Spine / Upper Back: Negative for thoracic spinal tenderness Lumbar Spine / Lower Back: Negative for lumbar spinal tenderness Extremity normal to inspection General Extremety ED: Negative for edema or tenderness General Extremity: Negative for edema Neuro oriented x3, CN's II-XII intact bilaterally and no sensory deficits noted Sensorium / Orientation: alert Motor Exam: strength 5/5 throughout Psych mental status grossly normal Skin Skin Narrative: Patient is flushed and face is erythematous. There is no clubbing or cyanosis of the extremities. There is no mottling of the skin. There is no delay in capillary refill. MDM MDM MDM Narrative Medical decision making narrative: Suspect patient has a viral illness. Her labs from earlier today were reviewed as well as the CT report and ER report authored by the night physician. CBC was repeated to see if there is a significant difference. Orthostatic vitals were obtained and were negative. Patient's heart rate improved after 1 L of normal saline. Since he now has predominantly respiratory symptoms rapid antigen for COVID, influenza and RSV was obtained. Patient was reassessed after IV fluids. Her heart rate improved. She does feel better. All of her questions and her questions were answered. Time spent with patient to explain results from this morning, my suspected impression and conference could have a 3-month-old at home and she is breast-feeding took 15 minutes. History & Record Review Discussion w/independent historian: Patient and Family Lab Data Attestation: I reviewed the patient's lab results. Lab results narrative: CBC is unremarkable. Rapid antigen for COVID, influenza and RSV were all negative. Patient was informed she probably has 1 of 20 other viruses that may be prevalent at this time. Labs: Laboratory Results - last 24 hr 05/26/25 16:30 WBC 7.7 RBC 4.39 Hgb 12.4 Hct 36.4 L MCV 82.9 MCH 28.2 MCHC 34.1 RDW Std Deviation 45.5 H RDW Coeff of Rosy 14.9 H Plt Count 221 MPV 9.7 Immature Gran % (Auto) 0.600 Neut % (Auto) 84.2 H Lymph % (Auto) 4.8 L [place] % (Auto) 4.2 Eos % (Auto) 6.1 H Baso % (Auto) 0.1 Absolute Neuts (auto) 6.5 Absolute Lymphs (auto) 0.37 L Nucleated RBC % 0 Discharge Plan Triage Chief Complaint: Back ED Provider: Cosmo Parker Dx/Rx/DC Orders Clinical Impression: Systemic viral illness, Sinus tachycardia seen on advertisement distributor, Tachypnea, Low grade fever, Viral cephalgia, Myalgia, Acute dehydration Instructions: ED Viral Syndrome (Adult) Prescriptions: No Action DHA 200 mg capsule 200 mg PO DAILY fluoxetine [Prozac] 40 mg capsule 60 mg PO QDAY sulfamethoxazole-trimethoprim 800-160 mg tablet 1 tab PO BID fluoxetine 20 mg capsule 80 mg PO DAILY quetiapine 50 mg tablet 50 mg PO QHS sulfamethoxazole-trimethoprim [Bactrim DS] 800-160 mg tablet 1 tab PO BID Qty: 5 0RF sulfamethoxazole-trimethoprim [Bactrim DS] 800-160 mg tablet 1 tab PO BID Qty: 5 0RF Primary Care Provider: Taiwo Conde Referrals: Taiwo Conde DO [Primary Care Provider, Family Practice] - Keep David appointment Activity Restrictions/Additional Instructions: If you have regular strength Tylenol take 2 tablets every 6 hours [id number] for the next 2 to 3 days. If you have extra strength Tylenol (500 mg/tab.) take 1 every 5 hours [id number] for the next 2 to 3 days If you have a severe headache, have difficulty breathing, unable to eat or drink anything or audible wheezing return to the emergency department otherwise keep your scheduled appointment with Dr. Conde for next June 02 Print Language: Argentine Disposition Disposition: Home, Self Care
[2025-05-26] MEDS: Famotidine 200 MG/20 ML MDV 20 MG in 0.9% Normal Saline (Pres. free 8 ML 300 MG IV (19:34)
== END 2025-05-26 21:09 | disposition home or self-care (01) ==
PROVIDERS: Emergency Provider Emergency Medicine; PCP Family Medicine; Visit Provider Emergency Medicine
DX: B34.9 Viral infection, unspecified (principal); E86.0 Dehydration; R00.0 Tachycardia, unspecified; R06.82 Tachypnea, not elsewhere classified; Z87.891 Personal history of nicotine dependence
CPT/HCPCS: 85025; 87631; 96361; 96365; 96375; 99285; A4216; J2405